=== PATIENT | female | born 1950 | race Caucasian/White ===

== ENCOUNTER → 2017-01-05 | Outpatient (CLI) | payer MEDICARE ==
[2017-01-05 14:48] LABS: Blood Urea Nitrogen 12 mg/dL (7-17); Non-African American GFR(MDRD) >60 (>60 ml/min/1.73 sqM)
--- NOTE | 2017-01-05 15:37 | CT ---
EXAMINATION TYPE: CT abdomen pelvis w con DATE OF EXAM: 01/05/2017 COMPARISON: March 09, 2012 HISTORY: Right sided flank pain for [address] DLP: 3214.5 mGycm CONTRAST: CT scan of the abdomen and pelvis is performed without Oral Contrast and with IV Contrast, patient in jected with 100 mL of Omnipaque 300. FINDINGS: LUNG BASES-: No visible nodule. No infiltrate. LIVER/GB: No space occupying hepatic lesion. Biliary tree is of normal caliber. There is evidence of hepatic steatosis. The gallbladder surgically absent. PANCREAS: No inflammation. No distinct mass. SPLEEN: No splenic enlargement. No lesion seen. ADRENALS: No nodule. No thickening. KIDNEYS/BLADDER: No hydronephrosis. No nephrolithiasis. 5.1 cm cyst left mid kidney. 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 Urinary bladder grossly unremarkable. BOWEL: Normal appendix. Normal bowel caliber. Sigmoid diverticulosis without diverticulitis. No infl ammation. GENITAL ORGANS: No gross abnormality. LYMPH NODES: No greater than 1cm abdominal or pelvic lymph nodes are appreciated. AORTA: No significant abnormality. OSSEOUS STRUCTURES: Degenerative and postoperative changes of the lumbar spine.. OTHER: No significant additional abnormality is seen. IMPRESSION: 1. No acute process to account for the patient's symptoms. 2. Hepatic steatosis. 3. Simple cyst left kidney.
== END | disposition home or self-care (01) ==
LOC: RADCTMAIN 13:54
PROVIDERS: ATTEND Family Medicine
DX: K76.0 Fatty (change of) liver, not elsewhere classified (principal); N28.1 Cyst of kidney, acquired; Z88.1 Allergy status to other antibiotic agents; Z88.2 Allergy status to sulfonamides
CPT/HCPCS: 82565; 84520; 74177; 36415; Q9967; 77063

== ENCOUNTER → 2017-01-05 | Outpatient (CLI) | payer MEDICARE ==
--- NOTE | 2017-01-09 10:09 | MM ---
Reason for exam: screening (asymptomatic). Last mammogram was performed 4 years and 4 months ago. History: Patient is postmenopausal. Benign right mammotome panel of the right breast, February 20, 2012. Excisional biopsy of the right breast, 2001. Benign excisional biopsy of the left breast, July 25, 2000. Took estrogen for 10 years. Physical Findings: A clinical breast exam by your physician is recommended on an annual basis and results should be correlated with mammographic findings. MG 3D Screening Mammo W/Cad Bilateral CC and MLO view(s) were taken. Prior study comparison: August 27, 2012, right diagnostic mammogram w/CAD. January 25, 2012, [facility] DIGITAL RIGHT MAMMOGRAM w/CAD. The breast tissue is heterogeneously dense. This may lower the sensitivity of mammography. Benign calcifications. There is chronic nodularity bilaterally. There is no dominant lesion. ASSESSMENT: Incomplete: need additional imaging evaluation, BI-RAD 0 RECOMMENDATION: Ultrasound of the left breast. (at palpable) Manage patient on a clinical basis. [facility] will attempt to contact patient to return for ultrasound.
== END | disposition home or self-care (01) ==
LOC: RADMAMWWP 13:18
PROVIDERS: ATTEND Family Medicine
DX: Z12.31 Encounter for screening mammogram for malignant neoplasm of breast (principal)
CPT/HCPCS: 77063; G0202

== ENCOUNTER → 2018-09-25 | Outpatient (CLI) | payer MEDICARE ==
--- NOTE | 2018-09-25 22:00 | BD ---
EXAMINATION TYPE: Axial Bone Density DATE OF EXAM: 09/25/2018 COMPARISON: NONE CLINICAL HISTORY: 68-year-old female asymptomatic postmenopausal screening Height: 5 FT 6 IN Weight: 264 FRAX RISK QUESTIONS: Family History (Parent hip fracture): YES History of Fracture in Adulthood: YES Secondary Osteoporosis: Rheumatoid Arthritis: YES RISK FACTORS HISTORY OF: Surgery to Spine/Hip(right/left)/Wrist (right/left): LUMBAR SURG X 3 When: 1987,LAST ONE DONE APPROX 20 YEARS AGO Family History of Osteoporosis: YES Postmenopausal woman: [facility] AGE 28 Take estrogen and/or progesterone medications: THINKS SHE MAY HAVE TAKEN FOR A SHORT TIME Lost more than 2 inches in height since high school: YES Poor Health: YES MEDICATIONS: Thyroid Medications: YES Which medication: SYNTHROID How Lon YEARS Additional Medications: SYNTHROID, XARELTO, BLOOD PRESSURE MEDS, EXFORGE, ATTENOLOL, SIMVASTATIN, CODIN, CITALOPRAM Additional History: EXAM MEASUREMENTS: Bone mineral density about the R hip (g/cm2): 0.781 Bone mineral density about the L hip (g/cm2): 0.845 T Score values are as follows: -----R Neck: -1.8 -----L Neck: -1.4 -----R Total: -0.9 -----L Total: -1.0 BASELINE Bone mineral density about the L Wrist (g/cm2): 0.550 T Score values are as follows: -----Dist. R+U: -1.9 -----Prox. R+U: -0.3 -----Radius total: -2.1 BASELINE IMPRESSION: Osteopenia (T Score between -2.5 and -1). There is slightly increased risk of fracture and the patient may be considered for treatment. Re-Screen 2-5 years. NOTE: T-SCORE=SD OF THE YOUNG ADULT MEAN.
--- NOTE | 2018-09-26 09:32 | MM ---
Reason for exam: additional evaluation requested from prior study. Last mammogram was performed 1 year and 9 months ago. History: Patient is postmenopausal. Benign right mammotome panel of the right breast, February 20, 2012. Excisional biopsy of the right breast, 2001. Benign excisional biopsy of the left breast, July 25, 2000. Took estrogen for 10 years. Physical Findings: Nurse Summary: 1cm nodule in the right breast at 5 o'clock (nurse kp). MG 3D Diag Mammo W/Cad [facility] Bilateral CC and MLO view(s) were taken. Prior study comparison: January 05, 2017, bilateral MG 3d screening mammo w/cad. There are scattered fibroglandular densities. 1.1cm spiculate mass lower inner quadrant right breast at a middle depth at the palpable site. Central nodualrity becomes less defined on true lateral. These results were verbally communicated with the patient and result sheet given to the patient on 09/25/18. ASSESSMENT: Incomplete: need additional imaging evaluation, BI-RAD 0 RECOMMENDATION: Ultrasound of the right breast.
--- NOTE | 2018-09-26 09:49 | USB ---
Reason for exam: additional evaluation requested from abnormal screening. History: Patient is postmenopausal. Benign right mammotome panel of the right breast, February 20, 2012. Excisional biopsy of the right breast, 2001. Benign excisional biopsy of the left breast, July 25, 2000. Took estrogen for 10 years. US Breast Limited RT Right complete breast ultrasound includes all four quadrants, the retroareolar region and axilla. Finding demonstrates a 0.9 x 0.9 x 0.8cm spiculated, solid lesion at 3 o'clock, very suspicious, biopsy recommended, a 1.2 x 0.5 x 0.9cm solid lesion with dystrophic calcifications at the posterior nipple, corresponds to density behind the nipple, a 0.9 x 0.4 x 0.9cm solid lesion at 7 o'clock for which a biopsy is recommended, a 0.6 x 0.3 x 0.5cm lesion too small to characterize at 8 o'clock, a 0.4 x 0.3 x 0.4cm mixed lesion too small to characterize at 9 o'clock and a 0.7 x 0.4 x 0.7cm oval lesion at 9 o'clock, likely a complicated cyst. These results were verbally communicated with the patient and result sheet given to the patient on 09/25/18. ASSESSMENT: Highly suggestive of malignancy, BI-RAD 5 RECOMMENDATION: Surgical consultation and ultrasound core biopsy of the right breast. (x 2 sites, 3 o'clock and 7 o'clock) Called Dr. Angel with mammographic findings and has scheduled an appointment for the patient for 10/10/18 at 3:[address] Haines. Biopsy scheduled for 10/21/18 at 2:00. PRELIMINARY REPORT CALLED AND FAXED TO DR. HAINES ON 09/25/18.
== END | disposition home or self-care (01) ==
LOC: RADMAMWWP 12:59
PROVIDERS: ATTEND Family Medicine
DX: R92.8 Other abnormal and inconclusive findings on diagnostic imaging of breast (principal); M85.851 Other specified disorders of bone density and structure, right thigh; M85.852 Other specified disorders of bone density and structure, left thigh; M85.822 Other specified disorders of bone density and structure, left upper arm; Z78.0 Asymptomatic menopausal state
CPT/HCPCS: 77080; 77066; 76642; G0279; 77062

== ENCOUNTER → 2018-10-10 | Outpatient (CLI) | payer MEDICARE ==
--- NOTE | 2018-10-10 16:47 | XR ---
EXAMINATION TYPE: XR lumbar spine 2 or 3V DATE OF EXAM: 10/10/2018 COMPARISON: None HISTORY: Disc disorder lumbosacral spine TECHNIQUE: Three-view lumbar spine FINDINGS: There is an exaggerated kyphosis L1-L2. There appears to be anterior fusion L1-2. Disc spac ers are present L2-3 L3-4. Posterior disc space narrowing is present L4-5. IMPRESSION: 1. Postsurgical changes L2-L4. 2. Exaggeration of the lumbar kyphosis at L1-L2
--- NOTE | 2018-10-10 16:49 | XR ---
EXAMINATION TYPE: XR hand complete LT DATE OF EXAM: 10/10/2018 COMPARISON: None HISTORY: Pain TECHNIQUE: Three-view left hand FINDINGS: No acute displaced fractures are evident. There is diffuse narrowing of proximal distal int erphalangeal joint spaces. Degenerative joint changes are at the first carpal metacarpal junction. So ft tissues appear unremarkable IMPRESSION: 1. No acute osseous abnormality. 2. Diffuse joint space narrowing
== END | disposition home or self-care (01) ==
LOC: RADXRMAIN 15:54
PROVIDERS: ATTEND Physician Assistant
DX: M40.299 Other kyphosis, site unspecified (principal); M25.842 Other specified joint disorders, left hand; Z98.890 Other specified postprocedural states
CPT/HCPCS: 72100

== ENCOUNTER → 2018-10-10 | Outpatient (CLI) | payer MEDICARE ==
[2018-10-10 15:05] VITALS: BP 134/78; PULSE 67; RESP 18; TEMP 98.7; BMI 42.6
--- NOTE | 2018-10-10 16:16 | P.GSHP ---
History of Present Illness H&P Date: 10/10/18 Chief Complaint: Mass right breast Gabrielle is a 68-year-old white female who states that approximately 2 months ago she noted a mass in the 3 o'clock position of the right breast. She states it is painful occasionally she has no nipple discharge or skin changes did not feel any other lumps or masses in her breast. She did not had a mammogram for several years. She subsequently underwent a mammogram which revealed 1.1 cm spiculated mass in the lower inner quadrant of the right breast. An ultrasound was recommended. On ultrasound she was noted to have a 0.9 x 0.8 cm spiculated lesion at 3:00, a 1.2 cm solid lesion posterior to the nipple, and a 0.9 x 0.9 cm solid lesion at 7:00 for which biopsy was recommended. The patient had several other lesions too small to characterize at 8:00, and 2 at 9:00. No lesions of concern were noted in the left breast. Family history: 1. Mother: Skin and breast cancer Hormonal history: Menarche: 9 1 miscarriage Menopause: Hysterectomy at 28 ovaries were not removed This control pills: Negative Hormones: 6 months Surgical history: 1. 3 back surgeries 2. 3 knee replacements 3. He'll with bone spurs on the right 4. Right elbow 5. Right thyroid lobe 6. To heart ablations 7. For hernias 8. Cholecystectomy Medical history: 1. Hypothyroid 2. Hypertension 3. High cholesterol 4. 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 - Gastrointestinal Gastrointestinal: Denies abdominal pain, Denies diarrhea, Denies nausea, Denies vomiting - Genitourinary (Female) Comment: History of kidney stones Genitourinary: Denies dysuria, Denies hematuria - Menstruation Menstruation: Reports post hysterectomy - Musculoskeletal Musculoskeletal: Reports muscle weakness - Integumentary Integumentary: Denies pruritus, Denies rash - Neurological Neurological: Reports weakness - Psychiatric Psychiatric: Reports depression - Endocrine Endocrine: Reports fatigue - Hematologic/Lymphatic Comment: on xeralto - Allergic/Immunologic Allergic/Immunologic: Reports seasonal allergies Past Medical History Past Medical History: GERD/Reflux, Hyperlipidemia, Osteoarthritis (OA), Thyroid Disorder Additional Past Medical History / Comment(s): SEE DR HARRIS'S H&P History of Any Multi-Drug Resistant Organisms: None Reported Past Surgical History: Back Surgery, Bladder Surgery, Cardiac Ablation, Cholecystectomy, Heart Catheterization, Hernia Repair, Hysterectomy, Joint Replacement, Orthopedic Surgery Additional Past Surgical History / Comment(s): rt knee replacement, Rt foot surgery, Rt elbow surgery,rt wrist ganglion cyst, partial thyroidectomy,back surgery x 3, ABLATION 05/2014 Past Anesthesia/Blood Transfusion Reactions: No Reported Reaction Past Psychological History: Depression Additional Psychological History / Comment(s): PAST HISTORY Smoking Status: Never smoker Past Alcohol Use History: None Reported Past Drug Use History: None Reported - Past Family History Mother Family Medical History: Deep Vein Thrombosis (DVT) Medications and Allergies Home Medications Medication Instructions Recorded Confirmed Type Atenolol 100 mg PO DAILY 02/19/14 10/10/18 History Hydrocodone/Acetaminophen [Vicodin 1 each PO Q4-6H PRN 02/19/14 10/10/18 History Hp 10-300 mg Tablet] Levothyroxine Sodium [Synthroid] 88 mcg PO DAILY 02/19/14 10/10/18 History Simvastatin [Zocor] 20 mg PO DAILY 02/19/14 10/10/18 History amLODIPine/VALSARTAN [Exforge 1 each PO DAILY 02/19/14 10/10/18 History 5-320 MG] Rivaroxaban [Xarelto] 20 mg PO AC-SUPPER tab 06/04/14 10/10/18 Rx Calcium Carbonate/Vitamin D3 1 each PO DAILY 10/07/18 10/10/18 History [Calcium 500-Vit D3 600 Tablet] Citalopram Hydrobromide 40 mg PO DAILY 10/07/18 10/10/18 History [Citalopram HBr] Allergies Allergy/AdvReac Type Severity Reaction Status Date / Time cephalexin monohydrate Allergy Rash/Hives Verified 10/10/18 15:05 [From Keflex] Iodinated Contrast- Oral and Allergy Rash/Hives Verified 10/10/18 15:05 IV Dye [Iodinated Contrast Media - IV Dye] Sulfa (Sulfonamide Allergy Rash/Hives Verified 10/10/18 15:05 Antibiotics) adhesive tape Allergy Rash/Hives Uncoded 10/10/18 15:05 Surgical - Exam Vital Signs Temp Pulse Resp BP Pulse Ox 98.7 F 67 18 134/78 91 L 10/10/18 15:01 10/10/18 15:01 10/10/18 15:01 10/10/18 15:01 10/10/18 15:01 BMI 42.6 - General obese - Eyes PERRL - ENT no hearing loss, no congestion - Neck no masses, trachea midline - Respiratory normal respiratory effort, clear to auscultation - Cardiovascular History of atrial fibrillation however on today's exam heart is regular rate and rhythm Rhythm: regular Heart Sounds: normal: S1, S2 - Abdomen Abdomen: soft, non tender, no guarding, no rigid, no rebound - Integumentary Multiple tattoos - Neurologic no disoriented, no combative - Musculoskeletal normal gait, normal posture - Psychiatric oriented to time, oriented to person, oriented to place, speech is normal, memory intact Breast examination: Right breast: Multiple positional exam nodule at 3:00 which is palpable and close to the skin Fibrocystic changes otherwise Right axilla: No adenopathy of concern Left breast: Multiple positional exam no dominant masses or nodules of concern Left axilla: No adenopathy of concern Results Mammogram and ultrasound results reviewed Assessment and Plan Assessment: Impression: 1. Mammographic abnormality right breast 2. Ultrasound abnormality right breast 3. Fibrocystic breast changes 4. Mass right breast 5. Family history of breast cancer 6. Osteoarthritis 7. Multiple back surgeries 8. Hypothyroidism 9. Hypertension 10. High cholesterol 11. Atrial fibrillation The patient was noted to have 2 areas on ultrasound for which biopsy is recommended 1 at 3:00 and one at 7:00. Patient has palpable mass at 3:00 which is highly suspicious for malignancy. Plan: 1. Patient to stop blood thinner as per medicine and proceed with ultrasound- guided core biopsy of 2 areas of concern in the right breast 2. Medical management of multiple medical conditions 3. Follow-up. After biopsy Cc: Dr. Curtis Angel
== END | disposition home or self-care (01) ==
LOC: WWCWWP 14:26
PROVIDERS: ATTEND Surgery
DX: Z53.9 Procedure and treatment not carried out, unspecified reason (principal)

== ENCOUNTER → 2018-10-21 | Day surgery (SDC) | payer MEDICARE ==
[2018-10-21 13:21] VITALS: RESP 16; BMI 42.6
--- NOTE | 2018-10-21 15:00 | USB ---
EXAMINATION TYPE: US biopsy breast VAD RT, US biopsy breast add'l VAD RT DATE OF EXAM: 10/21/2018 CLINICAL HISTORY: R92.8 ABNORMAL MAMMOGRAM. TECHNIQUE: Ultrasound guided core biopsy of right 3:00 and right 7:00 breast. COMPARISON: NONE FINDINGS: The procedure of ultrasound guided core biopsy was explained to the patient. Benefits, alternatives, and risks were discussed. An informed consent was then obtained. The patient was placed in supine positioning for imaging and for the procedure. The overlying skin was prepped and draped in usual sterile fashion. Lidocaine buffered with bicarbonate was used as anesthetic into the skin and subcutaneous tissue up to area of concern in the right 3:00 and right 7:00 breast. Under ultrasound guidance, a 12-gauge vacuum assisted biopsy gun device was used to obtain 3 cores from the right 3:00 position. A single core was obtained from the 7:00 position at which point the lesion was no longer visible. The patient tolerated the procedure well without any immediate complication. Microclip marker's were deployed in each site. The patient was kept in the radiology department for short stay after the procedure and then discharged home in stable condition. IMPRESSION: Successful, uncomplicated ultrasound guided core biopsy right 3:00 and right 7:00 breast, full pathology results to follow. Pathology Results: Malignant A. RIGHT BREAST, SITE A, ULTRASOUND GUIDED NEEDLE CORE BIOPSIES: Infiltrating ductal carcinoma, Grade 2 ([place]). See note. B. RIGHT BREAST, SITE B, ULTRASOUND GUIDED NEEDLE CORE BIOPSIES: Fibrocystic change. Recommendation Surgical consult of the right breast. 3:00 malignant, concordant, surgical consultation, ammendable to mammographic guided needle localization. 7:00 benign, concordant. POLLYD
[2018-10-21 15:03] VITALS: BP 134/75; PULSE 71; TEMP 98.8
--- NOTE | 2018-10-22 08:00 | MM ---
Reason for exam: additional evaluation requested from abnormal screening. Last mammogram was performed 1 month ago. History: Patient is postmenopausal. Benign right mammotome panel of the right breast, February 20, 2012. Excisional biopsy of the right breast, 2001. Benign excisional biopsy of the left breast, July 25, 2000. Took estrogen for 10 years. MG Diagnostic Mammo RT Wo CAD CC and ML view(s) were taken of the right breast. Prior study comparison: September 25, 2018, bilateral MG 3d diag mammo w/cad [facility]. January 05, 2017, bilateral MG 3d screening mammo w/cad. ASSESSMENT: Post procedure mammogram for marker placement RECOMMENDATION: Ultrasound of the right breast in 6 months. PENDING PATHOLOGY RESULTS.
== END | disposition home or self-care (01) ==
LOC: RADUSWWP 12:42
PROVIDERS: ATTEND Surgery
DX: C50.411 Malignant neoplasm of upper-outer quadrant of right female breast (principal); R92.8 Other abnormal and inconclusive findings on diagnostic imaging of breast; Z88.1 Allergy status to other antibiotic agents; Z88.2 Allergy status to sulfonamides; Z91.048 Other nonmedicinal substance allergy status
CPT/HCPCS: 19083; 19084; 88305; 77065; A4648; J2001; 88341; 88342

== ENCOUNTER → 2018-11-01 | Outpatient (CLI) | payer MEDICARE ==
[2018-11-01 13:58] VITALS: BP 125/72; PULSE 70; RESP 20; TEMP 98.7; BMI 42.6
--- NOTE | 2018-11-01 14:45 | P.PN ---
Subjective Progress Note Date: 11/01/18 Principal diagnosis: right breast cancer The patient is a 68-year-old white female status post ultrasound-guided core biopsy of 2 sites in her right breast and [id number]. The first site revealed infiltrating ductal carcinoma. The second site was fibrocystic change. The radiographs were reviewed with radiology. The first site was at 3:00 in the right breast and is very close to the skin. The results were reviewed with the patient. An treatment options including lumpectomy sentinel node biopsy possible axillary node dissection versus mastectomy plus or minus reconstruction were discussed. It is recommended that she undergo a lumpectomy with sentinel node biopsy. Following a cardiac ablation the patient was admitted to the intensive care unit on a ventilator she states this had difficulty with breathing since that time. 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 Family history: Mother: Skin and breast cancer Hormonal history: Menarche: 9 1 miscarriage Menopause: Hysterectomy at 28 Postoperative control pills: Negative Hormones: 6 months Surgical history: 1. 2 back surgeries 2. 23rd replacements 3. Heel surgery 4. Right elbow 5. Right dilated 6. Heart ablation 7. 4 hernia surgeries 8. Cholecystectomy Medical history: 1. Hypothyroid 2. Hypertension 3. Cholesterol 4. Atrial fibrillation Social history: Smoke: Negative Occult: Negative Drugs: Negative Review of systems: HEENT: Negative Cardiovascular: Atrial fibrillation on sotalol toe Respiratory: Left diaphragm. Otherwise GI: Negative : History of kidney stones Musculoskeletal: Muscle weakness Integument: Negative Psychiatric: Depression Endocrine: Fatigue Hematologic: Xeralto ALLERGIES: Positive seasonal ALLERGIES Objective - Vital Signs Vital signs: Vital Signs Temp 98.7 F 11/01/18 13:54 Pulse 70 11/01/18 13:54 Resp 20 11/01/18 13:54 BP 125/72 11/01/18 13:54 Pulse Ox 96 11/01/18 13:54 Intake & Output 10/31/18 11/01/18 11/01/18 18:59 06:59 18:59 Weight 119.748 kg - Exam BMI 42.6 - Constitutional General appearance: Present: obese - EENT Eyes: Present: EOMI ENT: Present: hearing grossly normal - Neck Neck: Present: normal ROM - Respiratory Respiratory: bilateral: CTA (Decreased breath sounds at bases) - Cardiovascular Heart sounds: normal: S1, S2 - Integumentary Integumentary: Present: normal turgor - Musculoskeletal Musculoskeletal Comment(s): He uses a wheelchair - Psychiatric Psychiatric: Present: A&O x's 3, appropriate affect, intact judgment & insight - Additional findings Additional findings: Right breast colon biopsy sites clean and dry, no evidence of any infection Assessment and Plan Assessment: Impression: 1. Hypothyroidism 2. Hypertension 3. Cholesterol 4. Atrial fibrillation 5. Infiltrating ductal carcinoma right breast at 3:00 6. Fibrocystic breast changes 7. Pulmonary disease/diaphragmatic paralysis 8. Atrial fibrillation 9. Family history of breast cancer Plan: 1. Patient's case to be presented at tumor board 2. Patient most likely will undergo lumpectomy sentinel node biopsy possible axillary node dissection 3. Medical clearance primary care doctor, radiology, pulmonology Cc: Dr. Curtis Angel
== END | disposition home or self-care (01) ==
LOC: WWCWWP 13:44
PROVIDERS: ATTEND Surgery
DX: Z53.9 Procedure and treatment not carried out, unspecified reason (principal)

== ENCOUNTER → 2018-11-14 | Day surgery (SDC) | payer MEDICARE ==
[2018-11-14 10:01] VITALS: BMI 41.9
--- NOTE | 2018-11-14 11:50 | USB ---
EXAMINATION TYPE: US biopsy breast VAD RT, MG diagnostic mammo RT wo CAD DATE OF EXAM: 11/14/2018 CLINICAL HISTORY: R92.8 Abnormal mammogram. TECHNIQUE: Ultrasound guided core biopsy of right breast. COMPARISON: Exam's dating back to 09/25/2018 FINDINGS: The procedure of ultrasound guided core biopsy was explained to the patient. Benefits, alternatives, and risks were discussed. An informed consent was then obtained. Preprocedural timeout was performed. The patient was placed in supine positioning for imaging and for the procedure. The overlying skin was prepped and draped in usual sterile fashion. Lidocaine buffered with bicarbonate was used as anesthetic into the skin and subcutaneous tissue up to an approximately 4 mm mass labeled at the 8:00 position on the initial exam and visualized towards the 8:30 to 9:00 position of the right breast on the day of biopsy. Under ultrasound guidance, a 12-gauge vacuum assisted biopsy gun device was used to obtain 5 core samples. Following this, a ribbon-shaped biopsy marker was left at the site of biopsy. Postprocedure mammogram demonstrates appropriate biopsy marker placement. The patient tolerated the procedure well without any immediate complication. The patient was kept in the radiology department for short stay after the procedure and then discharged home in stable condition. IMPRESSION: Successful, uncomplicated ultrasound guided core biopsy of an approximately 4 mm mass in the right breast, full pathology results to follow. Pathology Results: Benign RIGHT BREAST, EIGHT O'CLOCK, ULTRASOUND GUIDED CORE BIOPSY: Fibrocystic changes including fibrosis, cysts and adenosis. Negative for malignancy. Recommendation Surgical consult of the right breast. 8 o'clock, benign, concordant. Further appropriate management of biopsy proven right breast cancer at 3 o'clock. [facility]
[2018-11-14 16:13] VITALS: BP 132/78; PULSE 78; RESP 16; TEMP 98
== END ==
LOC: RADUSWWP 08:45
PROVIDERS: ATTEND Surgery
DX: N60.11 Diffuse cystic mastopathy of right breast (principal); N60.21 Fibroadenosis of right breast
CPT/HCPCS: 19083; 88305; 77065; A4648; J2001

== ENCOUNTER → 2018-11-14 | Outpatient (CLI) | payer MEDICARE ==
--- NOTE | 2018-11-14 12:22 | XR ---
EXAMINATION TYPE: XR chest 2V DATE OF EXAM: 11/14/2018 COMPARISON: X-ray dated 05/31/2014 HISTORY: Chronic systolic heart failure. TECHNIQUE: Frontal and lateral views of the chest are obtained. FINDINGS: Elevation of the right hemidiaphragm, similar to prior. No acute focal infiltrate. No pleu ral effusion or pneumothorax. Cardiac silhouette and pulmonary vasculature are within normal limits. Degenerative changes throughout the thoracic spine and partial visualization of lumbar spinal hardwar e. IMPRESSION: No acute cardiopulmonary process.
== END | disposition home or self-care (01) ==
LOC: RADXRWHC 09:15
PROVIDERS: ATTEND Family Medicine
DX: I50.22 Chronic systolic (congestive) heart failure (principal)
CPT/HCPCS: 71046

== ENCOUNTER → 2018-11-18 | Outpatient (CLI) | payer MEDICARE ==
[2018-11-18 08:56] VITALS: BP 126/74; PULSE 57; RESP 16; TEMP 98.8; BMI 41.9
--- NOTE | 2018-11-18 09:18 | P.PN ---
Subjective Progress Note Date: 11/18/18 The patient is a 68-year-old white female status post ultrasound-guided core biopsy of 2 sites in her right breast [place] [id number]. The first site revealed infiltrating ductal carcinoma. The second site was fibrocystic change. The radiographs were reviewed with radiology. The first site was at 3:00 in the right breast and is very close to the skin. The results were reviewed with the patient. An treatment options including lumpectomy sentinel node biopsy possible axillary node dissection versus mastectomy plus or minus reconstruction were discussed. It is recommended that she undergo a lumpectomy with sentinel node biopsy. Following a cardiac ablation the patient was admitted to the intensive care unit on a ventilator she states this had difficulty with breathing since that time. 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 The patient's case was presented at tumor board, and an additional area of concern in the right breast was recommended to undergo biopsy. This was performed. Pathology revealed fibrocystic changes. Patient was seen and cleared by pulmonary for surgery. She also had an EKG performed in the stress test has been ordered but not yet performed. The patient is scheduled for surgery in the near future for lumpectomy and sentinel node biopsy with respect to the known malignancy biopsied in the right breast. Family history: Mother: Skin and breast cancer Hormonal history: Menarche: 9 1 miscarriage Menopause: Hysterectomy at 28 Postoperative control pills: Negative Hormones: 6 months Surgical history: 1. 2 back surgeries 2. 23rd replacements 3. Heel surgery 4. Right elbow 5. Right dilated 6. Heart ablation 7. 4 hernia surgeries 8. Cholecystectomy Medical history: 1. Hypothyroid 2. Hypertension 3. Cholesterol 4. Atrial fibrillation Social history: Smoke: Negative Occult: Negative Drugs: Negative Review of systems: HEENT: Negative Cardiovascular: Atrial fibrillation on sotalol toe Respiratory: Left diaphragm. Otherwise GI: Negative : History of kidney stones Musculoskeletal: Muscle weakness Integument: Negative Psychiatric: Depression Endocrine: Fatigue Hematologic: Xeralto ALLERGIES: Positive seasonal ALLERGIES Objective - Vital Signs Vital signs: Vital Signs Temp 98.8 F 11/18/18 08:43 Pulse 57 L 11/18/18 08:43 Resp 16 11/18/18 08:43 BP 126/74 11/18/18 08:43 Pulse Ox - Exam BMI 41.9 - Constitutional General appearance: Present: obese - EENT Eyes: Present: EOMI ENT: Present: hearing grossly normal - Neck Neck: Present: normal ROM - Respiratory Respiratory: bilateral: CTA - Cardiovascular Rhythm: regular Heart sounds: normal: S1, S2 - Integumentary Integumentary Comment(s): And has ecchymosis at the biopsy site, she has a hematoma at the biopsy site which is approximately 1-1/2 cm in size The procedure abnormality which was biopsy-proven to be a malignancy remains constant and unchanged in the medial aspect of the breast. Integumentary: Present: normal turgor - Psychiatric Psychiatric: Present: A&O x's 3, appropriate affect, intact judgment & insight - Additional findings Additional findings: right breast: echymosis at the biopsy site, hematoma at the biopsy site no evidence of infection Assessment and Plan Plan: Impression: 1. Hypothyroidism 2. Hypertension 3. High cholesterol 4. Atrial fibrillation on so well to 5. Infiltrating ductal carcinoma right breast at 3:00 6. Fibrocystic breast changes 7. Pulmonary disease/diaphragmatic paralysis 8. Family history of breast cancer 9. Recent pain right breast biopsy benign Plan: 1. Lumpectomy with sentinel node biopsy possible axillary node dissection 2. Medical clearance primary care doctor, implant technology 3. Awaiting stress test results Cc: Dr. Curtis Angel
== END | disposition home or self-care (01) ==
LOC: WWCWWP 08:34
PROVIDERS: ATTEND Surgery
DX: Z53.9 Procedure and treatment not carried out, unspecified reason (principal)

== ENCOUNTER → 2018-12-05 | Outpatient (CLI) | payer MEDICARE ==
[~2018-12-05] MED LIST: REGADENOSON 0.4 MG/5 ML SYRINGE IV ONE
--- NOTE | 2018-12-05 11:01 | ECHOF ---
Referral Reason:I50.22 chronic systolic CHF MEASUREMENTS -------- HEIGHT: 167.6 cm WEIGHT: 122.5 kg BP: IVSd: 1.3 cm (0.6 - 1.1) LVIDd: 4.8 cm (3.9 - 5.3) LVPWd: 1.1 cm (0.6 - 1.1) IVSs: 1.2 cm LVIDs: 3.4 cm LVPWs: 1.4 cm LAESV Index (A-L): 31.06 ml/m Ao Diam: 3.5 cm (2.0 - 3.7) AV Cusp: 1.7 cm (1.5 - 2.6) LA Diam: 4.0 cm (2.7 - 3.8) MV EXCURSION: 21.518 mm (> 18.000) MV EF SLOPE: 96 mm/s (70 - 150) EPSS: 1.5 cm MV E Marques: 1.17 m/s MV DecT: 227 ms MV A Marques: 0.51 m/s MV E/A Ratio: 2.27 RAP: 5.00 mmHg RVSP: 42.21 mmHg FINDINGS -------- Sinus rhythm. This was a technically difficult study with suboptimal parasternal views. The left ventricular size is normal. There is mild concentric left ventricular hypertrophy. Overa ll left ventricular systolic function is low-normal with, an EF between 50 - 55 %. Mitral Doppler i nflow pattern suggests diastolic filling abnormality 35.82. The RV was not well visualized. LA is midly dilated 29-33ml/m2. The right atrium was not well visualized. Interatrial and interventricular septum intact. The aortic valve was not well visualized. There is no evidence of aortic regurgitation. There is no evidence of aortic stenosis. Mild mitral annular calcification present. Xmuw-es-msimswij mitral regurgitation is present. Moderate tricuspid regurgitation present. There is moderate pulmonary hypertension. The right radha tricular systolic pressure, as measured by Doppler, is 42.21mmHg. The pulmonic valve was not well visualized. The aortic root size is normal. The inferior vena cava is mildly dilated. There is no pericardial effusion. CONCLUSIONS -------- 1. Sinus rhythm. 2. This was a technically difficult study with suboptimal parasternal views. 3. The left ventricular size is normal. 4. There is mild concentric left ventricular hypertrophy. 5. Overall left ventricular systolic function is low-normal with, an EF between 50 - 55 %. 6. Mitral Doppler inflow pattern suggest diastolic filling abnormality 35.82. 7. The RV was not well visualized. 8. LA is midly dilated 29-33ml/m2. 9. The right atrium was not well visualized. 10. Interatrial and interventricular septum intact. 11. The aortic valve was not well visualized. 12. There is no evidence of aortic regurgitation. 13. There is no evidence of aortic stenosis. 14. Mild mitral annular calcification present. 15. Wavq-nc-vhmbbbrm mitral regurgitation is present. 16. Moderate tricuspid regurgitation present. 17. There is moderate pulmonary hypertension. 18. The right ventricular systolic pressure, as measured by Doppler, is 42.21mmHg. 19. The pulmonic valve was not well visualized. 20. The aortic root size is normal. 21. The inferior vena cava is mildly dilated. 22. There is no pericardial effusion. HANDSTITCHING MACHINE ARMHOLE FELLER: Penny Rothman RDCS
--- NOTE | 2018-12-05 12:57 | EST ---
EXERCISE STRESS DATE OF SERVICE: 12/05/2018 AGE: 68 SEX: Female HT: 5'6" WT: 280 pounds PROTOCOL: Lexiscan Cardiolite STAGE: DURATION OF EXERCISE: HEART RATE REST: 66 BLOOD PRESSURE REST: 152/74 MAXIMUM HEART RATE ACHIEVED: 74 MAXIMUM BLOOD PRESSURE: 152/74 85% MPHR: 100% MPHR: METS: INDICATIONS: Chest pain. CLINICAL INFORMATION: STRESS DATA: Heart rate 66, pressure is 152/74 mmHg. Baseline EKG showed sinus mechanism. The 0.4 mg of Lexiscan given over 15 seconds per protocol. Max heart rate was 74 beats per minute. Maximum pressure was 152/74 mmHg. Clinically the patient did not have any symptoms of chest pain or discomfort and the EKG did not show any significant ST or T-wave abnormalities concerning for ischemia. CONCLUSION: 1. Nondiagnostic electrocardiogram stress testing response to Lexiscan. 2. Please follow up on the Cardiolite portion on separate report from Radiology Department. MMODL / IJN: [id number] /
--- NOTE | 2018-12-05 13:14 | NM ---
EXAMINATION TYPE: NM stress lexiscan cardiolite DATE OF EXAM: 12/05/2018 COMPARISON: NONE HISTORY: Precordial chest pain and abnormal EKG TECHNIQUE: After the intravenous administration of 9.8 mCi Tc 99m Sestamibi - Cardiolite resting SPE CT images acquired 45 minutes post injection. The patient received 0.4mg Lexiscan, 26.2 mCi Tc 99m Sestamibi - Stress images obtained [address] injection FINDINGS: Review of stress and rest SPECT images demonstrates fixed defects involving the inferior wall as well as anterior wall. No definite evidence for stress-induced ischemia. Gated analysis shows normal wall motion with an estimated left ventricular ejection fraction of 54 %. IMPRESSION: No scintigraphic evidence for reversible ischemia.
== END | disposition home or self-care (01) ==
LOC: RADNMMAIN 07:32
PROVIDERS: ATTEND Family Medicine
DX: I08.1 Rheumatic disorders of both mitral and tricuspid valves (principal); I27.20 Pulmonary hypertension, unspecified; I87.8 Other specified disorders of veins; I50.22 Chronic systolic (congestive) heart failure
CPT/HCPCS: 93017; 93306; 78452; A9500; J2785

== ENCOUNTER → 2018-12-13 | Outpatient (CLI) | payer MEDICARE ==
[2018-12-13 11:32] VITALS: BP 106/66; PULSE 69; RESP 18; TEMP 98.2; BMI 43.5
--- NOTE | 2018-12-13 12:16 | P.PN ---
Subjective Progress Note Date: 12/13/18 The patient is a 68-year-old white female status post ultrasound-guided core biopsy of 2 sites in her right breast on . The first site revealed infiltrating ductal carcinoma. The second site was fibrocystic change. The radiographs were reviewed with radiology. The first site was at 3:00 in the r ight breast and is very close to the skin. The results were reviewed with the patient. Treatment options including lumpectomy, sentinel node biopsy, and possible axillary node dissection versus mastectomy plus or minus reconstruction were discussed. After discussion it is recommended that she undergo a lumpectomy with sentinel node biopsy. Of concern is the fact that following a cardiac ablation the patient was admitted to the intensive care unit on a ventilator; she states she has had difficulty with breathing since that time. 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 The patient's case was presented at tumor board, and an additional area of concern in the right breast was recommended to undergo biopsy. This was performed. Pathology revealed fibrocystic changes. Patient was seen and cleared by pulmonary for surgery. She also had an EKG performed and a stress test and s been cleared for surgery as per the patient. Family history: Mother: Skin and breast cancer Hormonal history: Menarche: 9 1 miscarriage Menopause: Hysterectomy at 28 Postoperative control pills: Negative Hormones: 6 months Surgical history: 1. 3 back surgeries 2. 3 knee replacements 3. Heel surgery 4. Right elbow 5. Right thyroid resection 6. Heart ablation 7. 4 hernia surgeries 8. Cholecystectomy Medical history: 1. Hypothyroid 2. Hypertension 3. high cholesterol 4. Atrial fibrillation Social history: Smoke: Negative Occult: Negative Drugs: Negative Review of systems: HEENT: Negative Cardiovascular: Atrial fibrillation on Xeralto Respiratory: Left diaphragm paralysed GI: Negative : History of kidney stones Musculoskeletal: Muscle weakness Integument: Negative Psychiatric: Depression Endocrine: Fatigue Hematologic: Xeralto ALLERGIES: Positive seasonal ALLERGIES Objective - Vital Signs Vital signs: Vital Signs Temp 98.2 F 12/13/18 11:28 Pulse 69 12/13/18 11:28 Resp 18 12/13/18 11:28 BP 106/66 12/13/18 11:28 Pulse Ox 92 L 12/13/18 11:28 - Exam BMI 43.5 - Constitutional General appearance: Present: obese - EENT Eyes: Present: EOMI ENT: Present: hearing grossly normal - Respiratory Respiratory: bilateral: CTA - Cardiovascular Rhythm: regular Heart sounds: normal: S1, S2 - Gastrointestinal General gastrointestinal: Present: soft - Integumentary Integumentary: Present: normal turgor - Musculoskeletal Musculoskeletal Comment(s): uses wheel chair secondary to SOB - Psychiatric Psychiatric: Present: A&O x's 3, appropriate affect, intact judgment & insight - Additional findings Additional findings: breast exam: right breast: Patient has resolving hematoma in the lateral aspect of the right breast, the right breast cancer remains probable at near the 3 o'clock position multiple positional exam did not reveal other masses or nodules in the breast Right axilla: No adenopathy of concern Left breast: Multi-positional exam no dominant masses or nodules of concern Left axilla: No adenopathy of concern Assessment and Plan Assessment: Impression: 1. Radiographic abnormality right breast 2. Fibrocystic breast changes 3. Mass right breast biopsy confirmed cancer 4. Hematoma lateral aspect of right breast benign tissue on biopsy 5. Family history of breast cancer 6. Osteoarthritis 7. Multiple back surgeries 8. Hypothyroidism 9. Hypertension 10. High cholesterol 11. Atrial fibrillation on Plan: 1. Patient to stop sotalol toe 24 hours preoperative 2. Medical management of medical conditions with clearance from pulmonary and medicine 3. Results of stress test to be obtained 4.right breast sential node biopsy, needle localization lumpectomy Risks and benefits of surgery were discussed with the patient she wishes to proceed. CC: Dr. Curtis Angel
== END ==
LOC: WWCWWP 10:50
PROVIDERS: ATTEND Surgery
DX: Z53.9 Procedure and treatment not carried out, unspecified reason (principal)

== ENCOUNTER 2018-12-24 07:35 | Day surgery (SDC) | payer MEDICARE ==
[2018-12-23 09:54] VITALS: BMI 43.5
[~2018-12-24 07:35] MED LIST changes: +ALPRAZolam 0.25 MG TAB PO PRN; +DEXAMETHASONE SOD PHOSPHATE 10 MG/ML 1 ML VIAL IV ONE; +HEPARIN SODIUM,PORCINE 5,000 UNIT/ML 1 ML VIAL SQ ONE; +HYDROmorphone 0.5 MG/0.5 ML SYRINGE IVP PRN; +LACTATED RINGERS 1,000 ML IV SCH; +LIDOCAINE 1% 20 ML VIAL (10MG/ML) FOR IV START INTRADERMA PRN; +MIDAZOLAM 2 MG/2 ML VIAL IV PRN; +ONDANSETRON 4 MG/2 ML VIAL IVP ONE; +Pre Op ABX Message 1 EACH MISC MISCELLANE ONE; -REGADENOSON 0.4 MG/5 ML SYRINGE IV ONE; +SCOPOLAMINE 1.5MG/72HR PATCH TRANSDERM ONE
[2018-12-24] MEDS ORDERED: ALPRAZolam 0.5 MG TAB PO ONE (08:11)
[2018-12-24] MEDS ORDERED: LIDOCAINE 1% INJ 10MG/ML (20 ML MDV) SQ ONE ×3 (08:47→11:46)
[2018-12-24] MEDS ORDERED: HEPARIN SODIUM,PORCINE 5,000 UNIT/ML 1 ML VIAL SQ ONE (10:38)
--- NOTE | 2018-12-24 10:40 | P.NAPBC ---
NAPBC Queries - NAPBC Queries Was patient's case review presented at [facility] tumor board? If no, comment.: Yes Was patient's pathology reviewed at [facility]? If no, comment.: Yes Was breast conservation surgery offered? If no, comment.: Yes Was sentinel node biopsy offered? If no, comment.: Yes Was diagnosis confirmed by percutaneous core biopsy? If no, comment.: Yes Is patient mastectomy patient?: No Was a preop referral to reconstructive surgeon offered?: No Clinical Stage: STAGE IA
[2018-12-24] MEDS ORDERED: HYDROmorphone (PF) 1 MG/ML ONE (11:03)
[2018-12-24] MEDS ORDERED: MIDAZOLAM 2 MG/2 ML VIAL ONE (11:03)
[2018-12-24] MEDS ORDERED: PROPOFOL 10 MG/ML 20 ML VIAL IV ONE (11:03)
[2018-12-24] MEDS ORDERED: LIDOCAINE 1% INJ 10MG/ML (20 ML MDV) ONE (11:03)
[2018-12-24] MEDS ORDERED: fentaNYL (PF) 50 MCG/ML 2 ML AMP ONE (11:03)
[2018-12-24] MEDS ORDERED: SUCCINYLCHOLINE CHLORIDE 100 MG/5 ML SYR IV ONE (11:03)
[2018-12-24] MEDS ORDERED: ePHEDrine SULFATE/0.9% NACL/PF 50 MG/5 ML SYRINGE IV ONE (11:03)
[2018-12-24] MEDS ORDERED: DEXAMETHASONE SOD PHOS (MDV) 100 MG/10 ML VIAL ONE (11:03)
[2018-12-24] MEDS ORDERED: LACTATED RINGERS 1,000 ML IV ONE (12:01)
--- NOTE | 2018-12-24 12:37 | NM ---
EXAMINATION TYPE: NM sentinel node injection DATE OF EXAM: 12/24/2018 COMPARISON: Right breast biopsy dated 11/14/2018 HISTORY: Right breast cancer with request for sentinel node injection TECHNIQUE AND FINDINGS: The procedure of sentinel lymph node injection was explained to the patient. The benefits, alternatives, and risks were discussed. An informed consent was then obtained. Overlying skin is cleaned with sterile alcohol. Following this, 533 uCi Tc99m Tilmanocept was inject ed in the upper outer aspect of the right nipple intradermally. The patient tolerated the procedure well without any immediate complication. The patient was kept in the radiology department for short stay after the procedure and then taken to surgery for surgical p rocedure what is presumed intraoperative gamma probe will be used for sentinel lymph node detection. IMPRESSION: Right breast radiotracer injection for sentinel node localization as above.
--- NOTE | 2018-12-24 12:54 | MM ---
EXAMINATION TYPE: MG pre op needle loc RT, MG surgical specimen RT DATE OF EXAM: 12/24/2018 COMPARISON: Right breast biopsy dated 11/14/2018 CLINICAL HISTORY: Right breast biopsy with request for radiographic guided needle localization. TECHNIQUE: Needle localization with wire placement and surgical excision of area of concern in the right breast. FINDINGS: The procedure of needle localization with wire placement and than surgical excision was explained to the patient. Benefits, alternatives, and risks were discussed. An informed consent was then obtained. Preprocedural timeout was performed. The shortest pathway for procedure was chosen. Shortest pathway was medial to lateral approach. The overlying skin was prepped and draped in usual sterile fashion. 10 cc of 1% lidocaine was used as anesthetic into the skin and subcutaneous tissue up to the level of area of concern. A 5 cm needle was used. It was placed via a 5 approach under mammographic guidance. Subsequent 90 degrees mammogram show the needle to be in satisfactory position relative to the targeted area. At this point, wire was placed and the needle was withdrawn. The wire was fixed to patient's skin. Images were marked for surgeon. The patient tolerated the procedure well without any immediate complication. The patient was kept in the radiology department for short stay after the procedure and then taken to surgery for surgical excision. Targeted biopsy marker and mammographic mass and wire are identified in specimen mammogram. The OR was notified at approximately 12:40 PM by the x-ray heating repair technician. The patient was kept in hospital for short stay after the procedure and then discharged home in stable condition. IMPRESSION: Successful, uncomplicated needle localization with wire placement and surgical excision of the targeted biopsy marker and mammographic mass demarcating the biopsy-proven right breast infiltrating ductal carcinoma, grade 2, full pathology results to follow. Pathology Results: Malignant A. SENTINEL LYMPH NODE, BIOPSY: Lymph node negative for metastasis. CK7 and JJ immunoperoxidase stains are confirmatory (controls appropriate). B. AXILLARY CONTENTS: Lymph node with partial fat replacement, negative for metastasis. C. RIGHT BREAST, ADDITIONAL ANTERIOR MARGIN: Unremarkable benign skin and subcutaneous tissue. D. RIGHT BREAST, LUMPECTOMY: Invasive ductal carcinoma and ductal carcinoma in situ (DCIS), margins negative for malignancy. See Surgical Pathology Cancer Case Summary. Recommendation Follow up mammogram of the right breast in 6 months. [facility]
--- NOTE | 2018-12-24 13:07 | P.OP ---
Date of Procedure: 12/24/18 Preoperative Diagnosis: right Breast cancer Postoperative Diagnosis: Same Procedure(s) Performed: [place] node biopsy, right breast lumpectomy with onco-plastic tissue transfer Anesthesia: ENRIQUE Surgeon: Nicolette Haines Estimated Blood Loss (ml): 10 IV fluids (ml): 1,000 Pathology: other (sentinal node, lumpectomy specimen) Condition: stable Disposition: same day Indications for Procedure: biopsy proven right breast cancer Operative Findings: tumor extended close to skin Description of Procedure: The patient is a 68-year-old white female with a biopsy-proven right breast lower inner quadrant cancer. The tumor is in close proximity to the skin. The patient was taken to the operating room and following duction of anesthesia the right breast and axilla were prepped and draped in a sterile fashion. Periareolar injection of lymphatic time had been performed preoperatively. Additional localization of the tumor was performed preoperatively. The axilla was approached initially. Using the neoprobe the area of greatest radioactivity was identified. An incision was made at this site and carried into the axillary contents. Using the lighted retractor for visualization as well as the Harmonic scalpel the tissues were divided. An intercostal vein was necessary to be divided and this was ligated. Dissection into the axillary contents revealed a radioactive lymph node. This was excised. Ex vivo 10 second count on the neoprobe was approximately 20,000. The background axilla count on the neoprobe was 34. The axilla was well irrigated. No evidence of bleeding was identified. The deep tissues were closed using 3-0 Vicryl suture. This was followed by closure of the skin with 4-0 Monocryl. Patient tolerated this in stable condition. The breast was then approached. Secondary to the proximity to the skin an elliptical incision excising skin was performed. This was carried down to the chest wall. The deep dissection was to the pectoralis major muscle. The t issue was excised. It was painted for orientation. It was sent to radiology for radiographic confirmation the area of concern had been removed. This was confirmed. Additional skin was taken both superiorly and inferiorly as the lesion appeared to be close to the skin surface. Titanium clips were placed to irma the cavity. The breast tissue was mobolized onco plastically in the plane between the breast and skin and in the plane between the chest wall and the breast tissue. The tissue was then shifted into the defect. The amount of tissue mobilized was approximately 8 cm x 21/2 centimeters inferiorly and 8 centimeters by 2-1/2 cm superiorly. Approximately 40 centimeters of tissue mobilized. The tissues were then reapproximated using 3-0 Vicryl suture. The superficial tissues were closed using 3-0 Vicryl suture followed by closure of the skin with 4-0 Monocryl. Steri-Strips were applied. The patient tolerated the procedure in stable condition. All instrument and sponge counts were correct at the end of the case.
--- NOTE | 2018-12-24 13:09 | P.DS ---
Providers Attending physician: Nicolette Haines Primary care physician: Curtis Angel Plan - Discharge Summary Discharge Rx Participant: No New Discharge Prescriptions: No Action amLODIPine/VALSARTAN [Exforge 5-320 MG] 1 each PO QAM Simvastatin [Zocor] 20 mg PO QAM Levothyroxine Sodium [Synthroid] 88 mcg PO DAILY Atenolol 100 mg PO QAM Rivaroxaban [Xarelto] 20 mg PO AC-SUPPER tab Citalopram Hydrobromide [Citalopram HBr] 40 mg PO QAM Calcium Carbonate/Vitamin D3 [Calcium 500-Vit D3 600 Tablet] 1 each PO DAILY HYDROcodone/APAP 10-325MG [[place] 10-325] 1 tab PO Q4HR PRN PRN Reason: Pain Discharge Medication List Atenolol 100 mg PO QAM 02/19/14 [History] Levothyroxine Sodium [Synthroid] 88 mcg PO DAILY 02/19/14 [History] Simvastatin [Zocor] 20 mg PO QAM 02/19/14 [History] amLODIPine/VALSARTAN [Exforge 5-320 MG] 1 each PO QAM 02/19/14 [History] Rivaroxaban [Xarelto] 20 mg PO AC-SUPPER tab 06/04/14 [Rx] Calcium Carbonate/Vitamin D3 [Calcium 500-Vit D3 600 Tablet] 1 each PO DAILY 10/07/18 [History] Citalopram Hydrobromide [Citalopram HBr] 40 mg PO QAM 10/07/18 [History] HYDROcodone/APAP 10-325MG [[place] 10-325] 1 tab PO Q4HR PRN 12/23/18 [History] Follow up Appointment(s)/Referral(s): Nicolette Haines MD [STAFF PHYSICIAN] - 1 Week Activity/Diet/Wound Care/Special Instructions: Do not drive until seen by Dr. Angel Bra at all times may restart Xeralto tomorrow Discharge Disposition: HOME SELF-CARE
[2018-12-24 13:32] VITALS: TEMP 97.6
[2018-12-24 14:21] VITALS: RESP 20
[2018-12-24] MEDS ORDERED: HYDROcodone/APAP 10-325MG 1 EACH TAB PO ONE (14:31)
[2018-12-24 14:54] VITALS: BP 115/74; PULSE 90
== END 2018-12-24 15:10 | disposition home or self-care (01) ==
LOC: OR 07:35
PROVIDERS: ATTEND Surgery
DX: C50.311 Malignant neoplasm of lower-inner quadrant of right female breast (principal); I10 Essential (primary) hypertension; I48.91 Unspecified atrial fibrillation; E89.0 Postprocedural hypothyroidism; E78.00 Pure hypercholesterolemia, unspecified; F32.9 Major depressive disorder, single episode, unspecified; J30.2 Other seasonal allergic rhinitis; J98.6 Disorders of diaphragm; M19.90 Unspecified osteoarthritis, unspecified site; E78.5 Hyperlipidemia, unspecified; K21.9 Gastro-esophageal reflux disease without esophagitis; E66.9 Obesity, unspecified; Z87.442 Personal history of urinary calculi; Z79.01 Long term (current) use of anticoagulants; Z90.710 Acquired absence of both cervix and uterus; Z90.49 Acquired absence of other specified parts of digestive tract; Z79.890 Hormone replacement therapy; Z79.899 Other long term (current) drug therapy; Z98.890 Other specified postprocedural states; Z80.3 Family history of malignant neoplasm of breast; Z80.8 Family history of malignant neoplasm of other organs or systems; Z88.2 Allergy status to sulfonamides; Z91.041 Radiographic dye allergy status; Z91.048 Other nonmedicinal substance allergy status; Z88.1 Allergy status to other antibiotic agents; Z68.41 Body mass index [BMI] 40.0-44.9, adult
CPT/HCPCS: 88342; 88307; 88341; 76098; 19281; 38792; 38525; 19301; A9520; J2250; J1644; J1100 ×2; J2405; J2001; J3010; J1170; J0330; J2704

== ENCOUNTER 2018-12-25 17:06 | Emergency (ER) | payer MEDICARE ==
[2018-12-25 17:24] VITALS: BP 135/71; PULSE 76; RESP 16; TEMP 98.7
[2018-12-25] MEDS ORDERED: MORPHINE SULFATE 4 MG/ML SYRINGE IM STA (17:52)
--- NOTE | 2018-12-25 18:46 | US ---
EXAMINATION TYPE: US venous doppler duplex LE DATE OF EXAM: 12/25/2018 6:36 PM COMPARISON: NONE CLINICAL HISTORY: pain, post-op. Pain bilateral legs. Post-Op. Hx DVT in right leg. Patient is on blo od thinners. SIDE PERFORMED: Bilateral TECHNIQUE: The lower extremity deep venous system is examined utilizing real time linear array sonog vik with graded compression, doppler sonography and color-flow sonography. VESSELS IMAGED: External Iliac Vein (EIV) Common Femoral Vein Deep Femoral Vein Greater Saphenous Vein * Femoral Vein Popliteal Vein Small Saphenous Vein * Proximal Calf Veins (* superficial vessels) Limited due to body habitus and edema. Bilateral EIV not visualized. Limited prox calf vein visibil ity. Limited evaluation distal femoral vein. Right Leg: No evidence of DVT in veins imaged from distal popliteal vein to CFV/GSV. Left Leg: No evidence of DVT in veins imaged from distal popliteal vein to CFV/GSV. IMPRESSION: Limited exam due to patient body habitus with nonvisualization of the bilateral external iliac veins and limited visibility of the proximal calf veins as well as of the distal femoral veins . Within the visualized portions of the lower extremities no evidence of acute deep venous thrombosis is seen.
--- NOTE | 2018-12-25 19:35 | ED ---
Extremity Problem HPI - General Source: patient Mode of arrival: wheelchair Limitations: no limitations <Juana Hdez - Last Filed: 12/25/18 20:15> <Williams Wattah Quincy - Last Filed: 12/28/18 14:40> - General Chief complaint: Extremity Problem,Nontraumatic Stated complaint: calf & breast pain post op Time Seen by Provider: 12/25/18 17:31 - History of Present Illness Initial comments: Patient is a 68-year-old female presenting to the emergency Department with complaints of lower leg discomfort 1 day. Patient had a right breast lumpectomy with node biopsy performed yesterday by Dr. La Haines. Patient states she is presenting with bilateral lower leg discomfort as well as right breast pain. Patient states she is currently taking Hosmer 10's for her pain however it is not helping at this time. Patient is currently on Xarelto which she restarted today following her surgery. Patient denies fever, chills, nausea, vomiting. Patient does report mild throat irritation following her surgery. Patient has no other complaints right now. Upon arrival to ER, vital signs are stable. (Juana Hdez) - Related Data Home Medications Medication Instructions Recorded Confirmed Atenolol 100 mg PO DAILY 02/19/14 12/25/18 Levothyroxine Sodium [Synthroid] 88 mcg PO DAILY 02/19/14 12/25/18 Simvastatin [Zocor] 20 mg PO DAILY 02/19/14 12/25/18 amLODIPine/VALSARTAN [[place] 1 tab PO DAILY 02/19/14 12/25/18 5-320 MG] Citalopram Hydrobromide 40 mg PO DAILY 10/07/18 12/25/18 [Citalopram HBr] HYDROcodone/APAP 10-325MG [[place] 1 tab PO Q4-6H PRN 12/23/18 12/25/18 10-325] Rivaroxaban [Xarelto] 20 mg PO HS 12/25/18 12/25/18 Previous Rx's Medication Instructions Recorded Morphine Sulfate ER [Ms Contin] 15 mg PO Q8H 3 Days #5 tab 12/25/18 Allergies Allergy/AdvReac Type Severity Reaction Status Date / Time cephalexin monohydrate Allergy Rash/Hives Verified 12/25/18 17:53 [From Keflex] Iodinated Contrast Media Allergy Rash/Hives Verified 12/25/18 17:53 [Iodinated Contrast Media - IV Dye] Sulfa (Sulfonamide Allergy Rash/Hives Verified 12/25/18 17:53 Antibiotics) adhesive tape Allergy Rash/Hives Uncoded 12/25/18 17:25 Review of Systems ROS Other: All systems not noted in ROS Statement are negative. <Juana Hdez - Last Filed: 12/25/18 20:15> ROS Other: All systems not noted in ROS Statement are negative. <Rowena Watt - Last Filed: 12/28/18 14:40> ROS Statement: Those systems with pertinent positive or pertinent negative responses have been documented in the HPI. Past Medical History Past Medical History: GERD/Reflux, Hyperlipidemia, Osteoarthritis (OA), Thyroid Disorder Additional Past Medical History / Comment(s): SEE DR HARRIS'S H&P, complications from heart ablation History of Any Multi-Drug Resistant Organisms: None Reported Past Surgical History: Breast Surgery Additional Past Surgical History / Comment(s): rt knee replacement, Rt foot surgery, Rt elbow surgery,rt wrist ganglion cyst, partial thyroidectomy,back surgery x 3, ABLATION 05/2014, (R) breast lumpectomy. Past Anesthesia/Blood Transfusion Reactions: No Reported Reaction Additional Past Anesthesia/Blood Transfusion Reaction / Comment(s): pt unsure of exact reactiont, on ventilator for 2 days after cardiac ablation Past Psychological History: Depression Smoking Status: Never smoker Past Alcohol Use History: None Reported Past Drug Use History: None Reported - Past Family History Mother Family Medical History: Cancer, Deep Vein Thrombosis (DVT) <Juana Hdez - Last Filed: 12/25/18 20:15> General Exam Limitations: no limitations <Juana Hdez - Last Filed: 12/25/18 20:15> - General Exam Comments Initial Comments: GENERAL: Well-appearing, well-nourished and in no acute distress. HEAD: Atraumatic, normocephalic. EYES: Pupils equal round and reactive to light, extraocular movements intact, sclera anicteric, conjunctiva are normal. ENT: TMs normal, nares patent, oropharynx clear without exudates. Moist mucous membranes. NECK: Normal range of motion, supple without lymphadenopathy or JVD. LUNGS: Breath sounds clear to auscultation bilaterally and equal. No wheezes rales or rhonchi. CHEST: Surgical incisions on the right breast and right axillary area are free from signs of infection, no fluctuance, surrounding erythema, abnormal discharge. HEART: Regular rate and rhythm without murmurs, rubs or gallops. ABDOMEN: Soft, nontender, normoactive bowel sounds. No guarding, no rebound. No masses appreciated. : Deferred EXTREMITIES: Normal range of motion, no pitting or edema. No clubbing or cyanosis. Mild pain to palpation of the bilateral calfs. No erythema of the bilateral calfs. NEUROLOGICAL: Cranial nerves II through XII grossly intact. Normal speech, normal gait. PSYCH: Normal mood, normal affect. SKIN: Warm, Dry, normal turgor, no rashes or lesions noted. (Juana Hdez) Course Vital Signs 12/25/18 17:21 Temperature 98.7 F Pulse Rate 76 Respiratory 16 Rate Blood Pressure 135/71 O2 Sat by Pulse 97 Oximetry Medical Decision Making <Juana Hdez - Last Filed: 12/25/18 20:15> <Rowena Watt - Last Filed: 12/28/18 14:40> - Medical Decision Making Patient is a 68-year-old female presenting with bilateral lower leg pain as well as right breast pain. Patient is postop day 1 from right breast lumpectomy with lymph node biopsy by Dr. Nicolette Haines. Patient's incisions remain intact, free from signs of infection. Patient has mild bilateral calf tenderness. No erythema of the overlying skin. Ultrasounds of bilateral lower extremities revealed no signs of DVTs. Patient was given morphine for pain relief. Patient does report improvement in symptoms. Spoke with Dr. Nicolette Zamora who recommended patient may follow up with her in the morning in her office and to also prescribe her 5 tablets of oral morphine for pain control. Patient was counseled not to take the morphine tablets with her Hosmer tablets. Patient understood this. Patient is stable for discharge at this time. Return parameters were discussed with the patient and she verbalized understanding. Case discussed with Dr. Watt. (Juana Hdez) I was available for consultation in the emergency department. The history and physical exam were done by the midlevel provider. I was consulted for this patients care. I reviewed the case with the midlevel provider and based on their presentation of the patient, I agree with the assessment, medical decision rupert ng and plan of care as documented. (Rowena Watt) Disposition Is patient prescribed a controlled substance at d/c from ED?: Yes When asked, does pt state using other controlled substances?: Yes If prescribed controlled substance>3 days was MAPS reviewed?: Yes If opioid is for acute pain is fill amount 7 days or less?: Yes If Rx opioid, was Start Talking consent form obtained?: Yes <Juana Hdez - Last Filed: 12/25/18 20:15> <Rowena Watt - Last Filed: 12/28/18 14:40> Clinical Impression: Postoperative pain, Breast pain, right, Bilateral lower extremity pain Disposition: HOME SELF-CARE Condition: Stable Instructions (If sedation given, give patient instructions): Leg Pain (ED) Additional Instructions: Please return to the Emergency Department if symptoms worsen or any other concerns. Follow-up with Dr. Stanley Zamora as discussed. Prescriptions: Morphine Sulfate ER [Ms Contin] 15 mg PO Q8H 3 Days #5 tab Referrals: Curtis Angel MD [Primary Care Provider] - 1-2 days
== END 2018-12-25 19:50 | disposition home or self-care (01) ==
LOC: EC 17:06
DX: G89.18 Other acute postprocedural pain (principal); N64.4 Mastodynia; M79.661 Pain in right lower leg; M79.662 Pain in left lower leg; E78.5 Hyperlipidemia, unspecified; M19.90 Unspecified osteoarthritis, unspecified site; E07.9 Disorder of thyroid, unspecified; F32.9 Major depressive disorder, single episode, unspecified; Z88.1 Allergy status to other antibiotic agents; Z88.2 Allergy status to sulfonamides; Z91.041 Radiographic dye allergy status; Z91.048 Other nonmedicinal substance allergy status; Z79.01 Long term (current) use of anticoagulants; Z79.890 Hormone replacement therapy; Z79.899 Other long term (current) drug therapy; Z96.651 Presence of right artificial knee joint
CPT/HCPCS: 93970; 99283; 96372; J2270

== ENCOUNTER → 2019-01-03 | Outpatient (CLI) | payer MEDICARE ==
[2019-01-03 15:01] VITALS: BP 142/65; PULSE 87; RESP 18; TEMP 98.6; BMI 42.7
--- NOTE | 2019-01-03 15:03 | P.PN ---
Progress Note - Text Progress Note Date: 01/03/19 Gabrielle is a 68-year-old white female status post right breast lumpectomy and sentinel node biopsy for a [id number] G2 ER+/WA+ HER 2 - breast cancer performed on 12-24-18. The patient is doing well at this time. Margins are all negative and her lymph nodes are negative as well. The patient has some small hematomas near the area of the incisions but no evidence of ecchymosis or infection. She is doing well with pain control. Lungs: Clear Heart: Regular rate and rhythm Incision: Clean and dry and breast and axilla Impression: 1. Patient status post right breast lumpectomy and sentinel node biopsy doing well Plan: 1. Follow-up medical oncology 2. Follow up radiation oncology 3. Follow-up. In 3 months CC: Dr. Curtis Angel
== END ==
LOC: WWCWWP 14:40
PROVIDERS: ATTEND Surgery
DX: Z53.9 Procedure and treatment not carried out, unspecified reason (principal)

== ENCOUNTER 2019-04-07 09:31 | Observation (INO) | payer MEDICARE ==
--- NOTE | 2019-04-07 10:30 | ED ---
Skin/Abscess/FB HPI <GregorioErickson medina - Last Filed: 04/07/19 12:07> - General Source: patient, family Mode of arrival: wheelchair <Valeriy Grant - Last Filed: 04/07/19 12:18> - General Chief complaint: Skin/Abscess/Foreign Body Stated complaint: post op-incision bleeding Time Seen by Provider: 04/07/19 10:04 - History of Present Illness Initial comments: Patient is a 68-year-old female presenting to the emergency department with a chief complaint of possible breast infection. She states that in September she had a breast procedure performed on the right breast. Afterwards she would have occasional pain, when she consulted the surgeon she was informed that is only scar tissue and the pain is normal. Patient reports over the last 3 weeks she has developed increased tenderness in the region. She also reports increased induration near the incision site on the right breast. Patient reports today as she was about to take shower, she noticed large amounts of brown/dark yellow discharge near the site of tenderness. She brought a sample discharge. Denies any night sweats or chills. Does have history of breast cancer. (Valeriy Grant) - Related Data Home Medications Medication Instructions Recorded Confirmed Atenolol 100 mg PO QAM 02/19/14 01/03/19 Levothyroxine Sodium [Synthroid] 88 mcg PO QAM 02/19/14 01/03/19 Simvastatin [Zocor] 20 mg PO QAM 02/19/14 01/03/19 amLODIPine/VALSARTAN [Exforge 1 tab PO QAM 02/19/14 01/03/19 5-320 MG] Citalopram Hydrobromide 40 mg PO QAM 10/07/18 01/03/19 [Citalopram HBr] HYDROcodone/APAP 10-325MG [[place] 1 tab PO Q4-6H PRN 12/23/18 01/03/19 10-325] Rivaroxaban [Xarelto] 20 mg PO HS 12/25/18 01/03/19 Allergies Allergy/AdvReac Type Severity Reaction Status Date / Time cephalexin monohydrate Allergy Rash/Hives Verified 04/07/19 09:59 [From Keflex] Iodinated Contrast Media Allergy Rash/Hives Verified 04/07/19 09:59 [Iodinated Contrast Media - IV Dye] Sulfa (Sulfonamide Allergy Rash/Hives Verified 04/07/19 09:59 Antibiotics) adhesive tape Allergy Rash/Hives Uncoded 04/07/19 09:59 Review of Systems ROS Other: All systems not noted in ROS Statement are negative. <Erickson Holloway - Last Filed: 04/07/19 12:07> ROS Other: All systems not noted in ROS Statement are negative. <Valeriy Grant - Last Filed: 04/07/19 12:18> ROS Statement: Those systems with pertinent positive or pertinent negative responses have been documented in the HPI. Past Medical History Past Medical History: GERD/Reflux, Hyperlipidemia, Osteoarthritis (OA), Thyroid Disorder Additional Past Medical History / Comment(s): SEE DR HARRIS'S H&P, complicatio ns from heart ablation History of Any Multi-Drug Resistant Organisms: None Reported Past Surgical History: Breast Surgery Additional Past Surgical History / Comment(s): rt knee replacement, Rt foot surgery, Rt elbow surgery,rt wrist ganglion cyst, partial thyroidectomy,back surgery x 3, ABLATION 05/2014, (R) breast lumpectomy. Past Anesthesia/Blood Transfusion Reactions: No Reported Reaction Additional Past Anesthesia/Blood Transfusion Reaction / Comment(s): pt unsure of exact reactiont, on ventilator for 2 days after cardiac ablation Past Psychological History: Depression Smoking Status: Never smoker Past Alcohol Use History: None Reported Past Drug Use History: None Reported - Past Family History Mother Family Medical History: Cancer, Deep Vein Thrombosis (DVT) <Valeriy Grant - Last Filed: 04/07/19 12:18> General Exam Limitations: no limitations General appearance: alert, in no apparent distress Head exam: Present: atraumatic, normocephalic, normal inspection Eye exam: Present: normal appearance, PERRL, EOMI Pupils: Present: normal accommodation ENT exam: Present: normal exam, normal oropharynx, mucous membranes moist, TM's normal bilaterally, normal external ear exam Neck exam: Present: normal inspection, full ROM Respiratory exam: Present: normal lung sounds bilaterally, other (Lower quadrant tenderness. Induration measuring 2 cm x 4 cm. Fluctuance at the site of yellow discharge. Puslike discharge mixed with blood.) Cardiovascular Exam: Present: regular rate, normal rhythm, normal heart sounds Extremities exam: Present: normal inspection, full ROM Back exam: Present: normal inspection, full ROM Neurological exam: Present: alert, oriented X3 Psychiatric exam: Present: normal affect, normal mood Skin exam: Present: warm, dry, intact, normal color <Valeriy Grant - Last Filed: 04/07/19 12:18> Course Vital Signs 04/07/19 09:55 Temperature 99.2 F Pulse Rate 82 Respiratory 18 Rate Blood Pressure 116/75 O2 Sat by Pulse 97 Oximetry Medical Decision Making <Erickson Holloway - Last Filed: 04/07/19 12:07> <Valeriy Grant - Last Filed: 04/07/19 12:18> - Medical Decision Making The patient was seen and examined. All diagnostics were reviewed. The case is discussed with Dr. Haines who does feel as though patient should be admitted to the hospital under medicine with her to consult. Case also was discussed with the PA and I am agreeable with documentation. (Erickson Holloway) Patient is a 68-year-old female with history of breast cancer presenting to emergency Department with a chief complaint of a breast abscess. Exam patient does have a large area of induration measuring approximately 3 cm x 5 cm at 4:00 on the right breast. Patient is also complaining of tenderness there. There is some drainage as well. Wound culture obtained. Labs obtained. Patient given analgesia. Patient is on blood thinners. Ultrasound shows an abscess measuring 5.51.65.[address] Stanley Zamora was also consulted. She would like to admit the patient for further medical management. Dr. Angel and Dr. Cates also consulted. Dr. holloway also examined the patient and is in agreement with the treatment plan. (Valeriy Grant) Disposition <Erickson Holloway - Last Filed: 04/07/19 12:07> Is patient prescribed a controlled substance at d/c from ED?: No Time of Disposition: 12:18 <Valeriy Grant - Last Filed: 04/07/19 12:18> Clinical Impression: Breast abscess of female Disposition: ADMITTED IP TO THIS HOSP Condition: Stable Instructions (If sedation given, give patient instructions): Abscess (ED) Additional Instructions: Patient will be admitted Referrals: Curtis Angel MD [Primary Care Provider] - 1-2 days
[2019-04-07] MEDS ORDERED: MORPHINE SULFATE 4 MG/ML SYRINGE IV STA (11:54)
[2019-04-07] MEDS ORDERED: AMPICILLIN-SULBACTAM 3 GM in SODIUM CHLORIDE 0.9% 100 ML IVPB STA ×2 (11:55→12:31)
--- NOTE | 2019-04-07 11:57 | USB ---
Reason for exam: clinical finding. History: Patient is postmenopausal and has history of breast cancer at age 68. Malignant MG pre op needle loc RT of the right breast, December 24, 2018. Lumpectomy of the right breast, December 24, 2018. Benign US biopsy breast VAD RT of the right breast, November 14, 2018. Malignant US biopsy breast VAD RT of the right breast, October 21, 2018. Malignant US biopsy breast add'l VAD RT of the right breast, October 21, 2018. Benign right mammotome panel of the right breast, February 20, 2012. Excisional biopsy of the right breast, 2001. Benign excisional biopsy of the left breast, July 25, 2000. Took estrogen for 10 years. US Breast Limited RT Right limited breast ultrasound including focal area of concern, retroareolar and axilla demonstrates a 5.5 x 1.6 x 5.9cm mixed, vascular lesion at 3 o'clock. Appears as irregular, fluid collection along scar line, increased vascularity. Abscess with internal thick/phlegmonous debris, surgical consultation recommended for debridement. ASSESSMENT: Benign, BI-RAD 2 RECOMMENDATION: Surgical consultation of the right breast.
[2019-04-07] MEDS ORDERED: VANCOMYCIN IV PER PHARMACY 1 EACH MISC MISCELLANE PRN (12:02)
[2019-04-07] MEDS ORDERED: VANCOMYCIN 2,000 MG in SODIUM CHLORIDE 0.9% 500 ML 500 ML IVPB STA (12:07)
[2019-04-07] MEDS ORDERED: ALPRAZolam 0.25 MG TAB PO PRN (12:12)
[2019-04-07] MEDS ORDERED: ONDANSETRON 4 MG/2 ML VIAL IVP PRN (12:12)
[2019-04-07] MEDS ORDERED: NALOXONE 0.4 MG/ML 1 ML VIAL IV PRN (12:12)
[2019-04-07] MEDS: SODIUM CHLORIDE 0.9% 1,000 ML IV SCH (12:38)
[2019-04-07 12:54] LABS: ALT 27 U/L (4-34); AST 47 U/L (14-36); African American GFR (CKD) >90 (>60 ml/min/1.73 sqM); Albumin 4.1 g/dL (3.5-5.0); Alkaline Phosphatase 155 U/L (38-126); Anion Gap 12 mmol/L; Blood Urea Nitrogen 17 mg/dL (7-17); Calcium 9.5 mg/dL (8.4-10.2); Carbon Dioxide 23 mmol/L (22-30); Chloride 101 mmol/L (98-107); Glucose 134 mg/dL (74-99); Non-African American GFR(CKD) >90 (>60 ml/min/1.73 sqM); Potassium 4.6 mmol/L (3.5-5.1); Sodium 136 mmol/L (137-145); Total Bilirubin 1.3 mg/dL (0.2-1.3); Total Protein 7.6 g/dL (6.3-8.2)
[2019-04-07 12:55] LABS: Basophils # (A) 0.1 k/uL (0-0.2); Basophils % (A) 1 %; Eosinophils # (A) 0.1 k/uL (0-0.7); Eosinophils % (A) 1 %; HCT 42.3 % (34.0-46.0); HGB 14.1 gm/dL (11.4-16.0); Lymphocytes # (A) 1.8 k/uL (1.0-4.8); Lymphocytes % (A) 11 %; MCH 29.4 pg (25.0-35.0); MCHC 33.4 g/dL (31.0-37.0); MCV 88.1 fL (80.0-100.0); Mean Platelet Volume 8.6; Monocytes # (A) 0.6 k/uL (0-1.0); Monocytes % (A) 4 %; Neutrophils # (A) 12.9 k/uL (1.3-7.7); Neutrophils % (A) 82 %; Platelet Count 421 k/uL (150-450); RDW 13.1 % (11.5-15.5); WBC 15.8 k/uL (3.8-10.6)
[2019-04-07 12:57] LABS: INR 1.2 (<1.2); Partial Thromboplastin Time 32.8 sec (22.0-30.0); Prothrombin Time 12.4 sec (9.0-12.0)
[2019-04-07] MEDS: MORPHINE SULFATE 4 MG/ML SYRINGE IV PRN ×2 (15:55→20:34)
--- NOTE | 2019-04-07 18:13 | P.HPIM ---
History of Present Illness 68-year-old female presented the emergency room with complaints of right breast drainage postoperatively with redness. Patient states she's had problems for about [address] Stanley Zamora. Patient scheduled for OR tomorrow for I&D Review of Systems Breasts: right: masses (Discharge), swelling Past Medical History Past Medical History: Atrial Fibrillation, Atrial Flutter, Cancer, Chest Pain / Angina, GERD/Reflux, Hyperlipidemia, Hypertension, Osteoarthritis (OA), Thyroid Disorder Additional Past Medical History / Comment(s): R breast cancer with lumpectomy 09/2018, cardiomyopathy, pleurisy, thyroid surgery d/t goiter-hypothyroid, arthritis in multiple joints, chronic low back pain. History of Any Multi-Drug Resistant Organisms: None Reported Past Surgical History: Back Surgery, Bladder Surgery, Breast Surgery, Cardiac Ablation, Cholecystectomy, EPS, Heart Catheterization, Hernia Repair, Hysterectomy, Joint Replacement, Orthopedic Surgery Additional Past Surgical History / Comment(s): R breast core bx/needle loc, R breast lumpectomy/axillary node dissection, EPS/ablation of aflutter, CHATO, cardioversion, low back surgeries with plate/screws, total R knee arthroplasties x 3, R foot multiple surgeries for spur/neuromas, L foot cystectomy, R elbow injury with surgery, R wrist ganglion cystectomy, partial right sided thyroidectomy, 4 abdominal hernia repairs, bladder suspension, colonoscopy Past Anesthesia/Blood Transfusion Reactions: No Reported Reaction Additional Past Anesthesia/Blood Transfusion Reaction / Comment(s): 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 Mother Family Medical History: Cancer, Deep Vein Thrombosis (DVT) Additional Family Medical History / Comment(s): Skin and breast cancer. Medications and Allergies Home Medications Medication Instructions Recorded Confirmed Type Atenolol 100 mg PO DAILY 02/19/14 04/07/19 History Levothyroxine Sodium [Synthroid] 88 mcg PO DAILY 02/19/14 04/07/19 History Simvastatin [Zocor] 20 mg PO DAILY 02/19/14 04/07/19 History amLODIPine/VALSARTAN [Exforge 1 tab PO DAILY 02/19/14 04/07/19 History 5-320 MG] Citalopram Hydrobromide 40 mg PO DAILY 10/07/18 04/07/19 History [Citalopram HBr] HYDROcodone/APAP 10-325MG [[place] 1 tab PO Q4H PRN 12/23/18 04/07/19 History 10-325] Rivaroxaban [Xarelto] 20 mg PO HS 12/25/18 04/07/19 History Anastrozole [Arimidex] 1 mg PO DAILY 04/07/19 04/07/19 History Allergies Allergy/AdvReac Type Severity Reaction Status Date / Time cephalexin monohydrate Allergy Rash/Hives Verified 04/07/19 12:25 [From Keflex] Iodinated Contrast Media Allergy Rash/Hives Verified 04/07/19 12:25 [Iodinated Contrast Media - IV Dye] Sulfa (Sulfonamide Allergy Rash/Hives Verified 04/07/19 12:25 Antibiotics) adhesive tape Allergy Rash/Hives Uncoded 04/07/19 09:59 Physical Exam Vitals: Vital Signs Temp Pulse Resp BP Pulse Ox 04/07/19 09:55 99.2 F 82 18 116/75 97 Intake and Output 04/07/19 04/07/19 04/07/19 06:59 14:59 22:59 Other: Weight 124.738 kg - Constitutional General appearance: mild distress - EENT Eyes: PERRLA Ears: bilateral: normal - Neck Neck: normal ROM - Respiratory Respiratory: bilateral: CTA - Cardiovascular Rhythm: regular - Gastrointestinal General gastrointestinal: soft - Integumentary Right best tender to touch firm with drainage erythemic Integumentary: cellulitis - Neurologic Neurologic: CNII-XII intact - Musculoskeletal Musculoskeletal: gait normal - Psychiatric Psychiatric: A&O x's 3, appropriate affect, intact judgment & insight Results CBC & Chem 7: 04/07/19 12:35 04/07/19 12:35 Labs: Abnormal Lab Results - Last 24 Hours (Table) 04/07/19 04/07/19 04/07/19 Range/Units 12:35 12:35 12:35 WBC 15.8 H (3.8-10.6) k/uL Neutrophils # 12.9 H (1.3-7.7) k/uL PT 12.4 H (9.0-12.0) sec INR 1.2 H (<1.2) APTT 32.8 H (22.0-30.0) sec Sodium 136 L (137-145) mmol/L Glucose 134 H (74-99) mg/dL AST 47 H (14-36) U/L Alkaline Phosphatase 155 H (38-126) U/L Microbiology - Last 24 Hours (Table) 04/07/19 10:40 Wound Culture - Preliminary Breast - Right Thrombosis Risk Factor Assmnt - Choose All That Apply Any of the Below Risk Factors Present?: Yes Each Factor Represents 1 point: Obesity (BMI >25) Other Risk Factors: Yes Each Risk Factor Represents 2 Points: Age 61-74 years, Malignancy Other congenital or acquired thrombophilia - If yes, enter type in comment: No Thrombosis Risk Factor Assessment Total Risk Factor Score: 5 Thrombosis Risk Factor Assessment Level: High Risk Assessment and Plan Plan: Assessment Right breast abscess postoperatively History of cardiomyopathy Paroxysmal atrial flutter fib/flutter GERD Hyperlipidemia Osteoarthritis Hypothyroidism Plan Consultation with surgeon Dr. Stanley Zamora Oncology Dr. Cates On vancomycin
--- NOTE | 2019-04-07 19:35 | P.GSHP ---
History of Present Illness H&P Date: 04/07/19 Chief Complaint: Right breast swelling Gabrielle is a 68-year-old white female who presented to the emergency department with a several week history of swelling and then drainage from the medial aspect of the right breast. She is seen in consultation for Dr. Curtis Angel with r espect to this. Of importance is the fact that she is status post a right breast lumpectomy and sentinel node biopsy on . This was done for a stage IA right breast cancer. This was T1c and 0M0 G2 ER positive MN positive HER- 2/kaylene negative. Post procedure she did not receive radiation therapy. She did not receive chemotherapy. She is presently on anastrozole. The swelling began approximately 6 weeks ago. She then over the past 3 weeks had increased tenderness. Today she noted that she has some drainage from the area. She states that a week ago she had a fever up to 104 however she had muscle aches and pains associated with that and other members of her family were sac. She do es not have a fever at this time. She had an ultrasound performed today which revealed a 5.5 x 5.9 cm fluid collection near the area of the scar. Family history: Mother: Skin and breast cancer Surgical history: 1. 3 back surgeries 2. 3 knee replacements 3. Heel surgery 4. Right elbow 5. Right thyroid resection 6. Heart ablation 7. 4 hernia surgeries 8. Cholecystectomy Medical history: 1. Hypothyroid 2. Hypertension 3. high cholesterol 4. Atrial fibrillation Social history: Smoke: Negative Occult: Negative Drugs: Negative - Constitutional Constitutional: Denies chills, Denies fever - EENT Eyes: denies blurred vision, denies pain Ears, nose, mouth and throat: Denies headache, Denies sore throat - Breasts Breasts: bilateral: as per HPI - Cardiovascular Comment: Atrial fibrillation, on xeralto - Respiratory Comment: Left diaphragm paralyzed - Gastrointestinal Gastrointestinal: Denies abdominal pain, Denies diarrhea, Denies nausea, Denies vomiting - Genitourinary (Female) Genitourinary: Reports kidney stones - Menstruation Menstruation: Reports postmenopausal - Musculoskeletal Musculoskeletal: Reports muscle weakness - Integumentary Comment: Mild erythema medial aspect of right breast - Neurological Neurological: Reports weakness - Psychiatric Psychiatric: Reports depression - Endocrine Endocrine: Reports fatigue - Hematologic/Lymphatic Comment: on xeralto - Allergic/Immunologic Allergic/Immunologic: Reports seasonal allergies Past Medical History Past Medical History: Atrial Fibrillation, Atrial Flutter, Cancer, Chest Pain / Angina, GERD/Reflux, Hyperlipidemia, Hypertension, Osteoarthritis (OA), Thyroid Disorder Additional Past Medical History / Comment(s): R breast cancer with lumpectomy 09/2018, cardiomyopathy, pleurisy, thyroid surgery d/t goiter-hypothyroid, arthritis in multiple joints, chronic low back pain. History of Any Multi-Drug Resistant Organisms: None Reported Past Surgical History: Back Surgery, Bladder Surgery, Breast Surgery, Cardiac Ablation, Cholecystectomy, EPS, Heart Catheterization, Hernia Repair, Hysterectomy, Joint Replacement, Orthopedic Surgery Additional Past Surgical History / Comment(s): R breast core bx/needle loc, R breast lumpectomy/axillary node dissection, EPS/ablation of aflutter, CHATO, cardioversion, low back surgeries with plate/screws, total R knee arthroplasties x 3, R foot multiple surgeries for spur/neuromas, L foot cystectomy, R elbow injury with surgery, R wrist ganglion cystectomy, partial right sided thyroidectomy, 4 abdominal hernia repairs, bladder suspension, colonoscopy Past Anesthesia/Blood Transfusion Reactions: No Reported Reaction Additional Past Anesthesia/Blood Transfusion Reaction / Comment(s): 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 Mother Family Medical History: Cancer, Deep Vein Thrombosis (DVT) Additional Family Medical History / Comment(s): Skin and breast cancer. Medications and Allergies Home Medications Medication Instructions Recorded Confirmed Type Atenolol 100 mg PO DAILY 02/19/14 04/07/19 History Levothyroxine Sodium [Synthroid] 88 mcg PO DAILY 02/19/14 04/07/19 History Simvastatin [Zocor] 20 mg PO DAILY 02/19/14 04/07/19 History amLODIPine/VALSARTAN [Exforge 1 tab PO DAILY 02/19/14 04/07/19 History 5-320 MG] Citalopram Hydrobromide 40 mg PO DAILY 10/07/18 04/07/19 History [Citalopram HBr] HYDROcodone/APAP 10-325MG [[place] 1 tab PO Q4H PRN 12/23/18 04/07/19 History 10-325] Rivaroxaban [Xarelto] 20 mg PO HS 12/25/18 04/07/19 History Anastrozole [Arimidex] 1 mg PO DAILY 04/07/19 04/07/19 History Allergies Allergy/AdvReac Type Severity Reaction Status Date / Time cephalexin monohydrate Allergy Rash/Hives Verified 04/07/19 12:25 [From Keflex] Iodinated Contrast Media Allergy Rash/Hives Verified 04/07/19 12:25 [Iodinated Contrast Media - IV Dye] Sulfa (Sulfonamide Allergy Rash/Hives Verified 04/07/19 12:25 Antibiotics) adhesive tape Allergy Rash/Hives Uncoded 04/07/19 09:59 Surgical - Exam Vital Signs Temp Pulse Resp BP Pulse Ox 99.2 F 82 18 116/75 97 04/07/19 09:55 04/07/19 09:55 04/07/19 09:55 04/07/19 09:55 04/07/19 09:55 BMI 44.4 - General obese - Eyes normal ocular movement - ENT no hearing loss, no congestion - Neck trachea midline, no lymphadectomy, no venous distension - Respiratory normal expansion, normal respiratory effort, clear to percussion, clear to auscultation - Cardiovascular Heart Sounds: normal: S1, S2 - Abdomen Abdomen: soft, bowel sounds - Integumentary Mild edema and erythema medial aspect of the right breast - Neurologic no disoriented, no combative - Musculoskeletal Reclining on stretcher - Psychiatric oriented to time, oriented to person, oriented to place, speech is normal, memory intact Examination of the right breast reveals some mild erythema noted edema in the medial aspect There is some minimal drainage at the medial aspect of the incision The incision is otherwise well-healed No palpable fluctuant area is noted Results Ultrasound of the right breast reveals a 5.5 x 5.9 cm fluid collection near the area of the scar Blood cell count 15.8 - Labs 04/07/19 12:35 04/07/19 12:35 Abnormal Lab Results - Last 24 Hours (Table) 04/07/19 04/07/19 04/07/19 Range/Units 12:35 12:35 12:35 WBC 15.8 H (3.8-10.6) k/uL Neutrophils # 12.9 H (1.3-7.7) k/uL PT 12.4 H (9.0-12.0) sec INR 1.2 H (<1.2) APTT 32.8 H (22.0-30.0) sec Sodium 136 L (137-145) mmol/L Glucose 134 H (74-99) mg/dL AST 47 H (14-36) U/L Alkaline Phosphatase 155 H (38-126) U/L Microbiology - Last 24 Hours (Table) 04/07/19 10:40 Wound Culture - Preliminary Breast - Right Diabetes panel 04/07/19 Range/Units 12:35 Sodium 136 L (137-145) mmol/L Potassium 4.6 (3.5-5.1) mmol/L Chloride 101 (98-107) mmol/L Carbon Dioxide 23 (22-30) mmol/L BUN 17 (7-17) mg/dL Creatinine 0.64 (0.52-1.04) mg/dL Glucose 134 H (74-99) mg/dL Calcium 9.5 (8.4-10.2) mg/dL AST 47 H (14-36) U/L ALT 27 (4-34) U/L Alkaline Phosphatase 155 H (38-126) U/L Total Protein 7.6 (6.3-8.2) g/dL Albumin 4.1 (3.5-5.0) g/dL Calcium panel 04/07/19 Range/Units 12:35 Calcium 9.5 (8.4-10.2) mg/dL Albumin 4.1 (3.5-5.0) g/dL Pituitary panel 04/07/19 Range/Units 12:35 Sodium 136 L (137-145) mmol/L Potassium 4.6 (3.5-5.1) mmol/L Chloride 101 (98-107) mmol/L Carbon Dioxide 23 (22-30) mmol/L BUN 17 (7-17) mg/dL Creatinine 0.64 (0.52-1.04) mg/dL Glucose 134 H (74-99) mg/dL Calcium 9.5 (8.4-10.2) mg/dL Adrenal panel 04/07/19 Range/Units 12:35 Sodium 136 L (137-145) mmol/L Potassium 4.6 (3.5-5.1) mmol/L Chloride 101 (98-107) mmol/L Carbon Dioxide 23 (22-30) mmol/L BUN 17 (7-17) mg/dL Creatinine 0.64 (0.52-1.04) mg/dL Glucose 134 H (74-99) mg/dL Calcium 9.5 (8.4-10.2) mg/dL Total Bilirubin 1.3 (0.2-1.3) mg/dL AST 47 H (14-36) U/L ALT 27 (4-34) U/L Alkaline Phosphatase 155 H (38-126) U/L Total Protein 7.6 (6.3-8.2) g/dL Albumin 4.1 (3.5-5.0) g/dL Assessment and Plan Assessment: Impression: 1. Recent swelling and drainage of right breast near the area of prior lumpectomy 2. Leukocytosis 3. Probable abscess partially drained right breast 4. Family history of breast cancer 5. Osteoarthritis 6. Status post multiple back surgeries 7. Hypothyroid 8. Hypertension. 9. High cholesterol 10. Atrial fibrillation on blood thinner Plan: 1. Patient started on vancomycin 2. Medical clearance prior to possible I&D of the right breast in the OR 3. hold xeralto if okay with medicine time 30 minutes, > 50% planning and counselling Time with Patient: Greater than 30
--- NOTE | 2019-04-07 19:45 | P.CONS ---
History of Present Illness - Reason for Consult Consult date: 04/07/19 breast cancer Requesting physician: Valeriy Grant - Chief Complaint drainage from breast - History of Present Illness Mrs. vance is a very pleasant 68-year-old female patient who is seen Dr. Loan rocha in January 2019 for recommendations regarding her diagnosis of right breast cancer. Patient presented with a abnormal right breast screening in August 2018. Additional imaging showed a 1.1 cm lesion in the left inner quadrant of the right breast. 10/21/18 core biopsy was positive for invasive carcinoma. December 24, 2018 she had a lumpectomy with sentinel node biopsy, final path revealed a grade 2, invasive ductal carcinoma, 1.4 cm, negative sentinel lymph nodes, ER/MS strongly positive and HER-2/kaylene negative. She was seen by Dr. Tavarez, no radiation necessary. She had Oncotype DX with a low risk of recurrence score. Plan was to begin endocrine therapy, prescription was sent for anastrozole on March 05. Patient states that over the last couple weeks she has had progressive firmness in the area of lumpectomy, this progressed to become painful, reddened, warm to the touch, patient suddenly had a large amount of drainage, this was exacerbated when she raised the breast, the fluid that drained was cloudy brown, she came to the emergency department for evaluation. She has been placed on antibiotics appropriately, had a ultrasound of the breast showing a large abscessed area. She is pending evaluation by the surgeon for possible I&D based on findings. Patient denied any fevers, chills, nausea, vomiting, she states that she has had diarrhea since starting her AI, as well as pretty profound sweats (may be related to infection?). Review of Systems 14 point review of systems is negative except as stated in HPI Past Medical History Past Medical History: Atrial Fibrillation, Atrial Flutter, Cancer, Chest Pain / Angina, GERD/Reflux, Hyperlipidemia, Hypertension, Osteoarthritis (OA), Thyroid Disorder Additional Past Medical History / Comment(s): R breast cancer with lumpectomy 09/2018, cardiomyopathy, pleurisy, thyroid surgery d/t goiter-hypothyroid, arthritis in multiple joints, chronic low back pain. History of Any Multi-Drug Resistant Organisms: None Reported Past Surgical History: Back Surgery, Bladder Surgery, Breast Surgery, Cardiac Ablation, Cholecystectomy, EPS, Heart Catheterization, Hernia Repair, Hysterectomy, Joint Replacement, Orthopedic Surgery Additional Past Surgical History / Comment(s): R breast core bx/needle loc, R breast lumpectomy/axillary node dissection, EPS/ablation of aflutter, CHATO, cardioversion, low back surgeries with plate/screws, total R knee arthroplasties x 3, R foot multiple surgeries for spur/neuromas, L foot cystectomy, R elbow injury with surgery, R wrist ganglion cystectomy, partial right sided thyroidectomy, 4 abdominal hernia repairs, bladder suspension, colonoscopy Past Anesthesia/Blood Transfusion Reactions: No Reported Reaction Additional Past Anesthesia/Blood Transfusion Reaction / Comm: 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 Mother Family Medical History: Cancer, Deep Vein Thrombosis (DVT) Additional Family Medical History / Comment(s): Skin and breast cancer. Medications and Allergies Home Medications Medication Instructions Recorded Confirmed Type Atenolol 100 mg PO DAILY 02/19/14 04/07/19 History Levothyroxine Sodium [Synthroid] 88 mcg PO DAILY 02/19/14 04/07/19 History Simvastatin [Zocor] 20 mg PO DAILY 02/19/14 04/07/19 History amLODIPine/VALSARTAN [Exforge 1 tab PO DAILY 02/19/14 04/07/19 History 5-320 MG] Citalopram Hydrobromide 40 mg PO DAILY 10/07/18 04/07/19 History [Citalopram HBr] HYDROcodone/APAP 10-325MG [[place] 1 tab PO Q4H PRN 12/23/18 04/07/19 History 10-325] Rivaroxaban [Xarelto] 20 mg PO HS 12/25/18 04/07/19 History Anastrozole [Arimidex] 1 mg PO DAILY 04/07/19 04/07/19 History Allergies Allergy/AdvReac Type Severity Reaction Status Date / Time cephalexin monohydrate Allergy Rash/Hives Verified 04/07/19 12:25 [From Keflex] Iodinated Contrast Media Allergy Rash/Hives Verified 04/07/19 12:25 [Iodinated Contrast Media - IV Dye] Sulfa (Sulfonamide Allergy Rash/Hives Verified 04/07/19 12:25 Antibiotics) adhesive tape Allergy Rash/Hives Uncoded 04/07/19 09:59 Physical Exam Vitals: Vital Signs Temp Pulse Resp BP Pulse Ox 04/07/19 18:00 71 18 121/86 98 04/07/19 17:00 84 18 115/85 98 04/07/19 16:00 83 18 119/71 97 04/07/19 15:00 79 20 125/74 98 04/07/19 09:55 99.2 F 82 18 116/75 97 Intake and Output 04/07/19 04/07/19 04/07/19 06:59 14:59 22:59 Other: Weight 124.738 kg - Constitutional General appearance: cooperative, no acute distress, obese - EENT Eyes: anicteric sclerae, EOMI ENT: hearing grossly normal, normal oropharynx - Neck Neck: no lymphadenopathy - Respiratory Respiratory: bilateral: CTA - Cardiovascular Rhythm: regular Heart sounds: normal: S1, S2 Abnormal Heart Sounds: no systolic murmur, no diastolic murmur, no rub, no S3 Gallop, no S4 Gallop, no click, no other leg Peripheral Edema: bilateral: None - Gastrointestinal General gastrointestinal: normal bowel sounds, soft - Integumentary Right breast, sternal side, 3:00, area of firmness is approximately 6 cm, tender to the touch, redness, mild erythema, he can see an opening where drainage has come out, no foul order currently, mild nipple inversion - Neurologic Neurologic: CNII-XII intact - Musculoskeletal Musculoskeletal: strength equal bilaterally - Psychiatric Psychiatric: A&O x's 3, appropriate affect, intact judgment & insight Results CBC & Chem 7: 04/07/19 12:35 04/07/19 12:35 Labs: Abnormal Lab Results - Last 24 Hours (Table) 04/07/19 04/07/19 04/07/19 Range/Units 12:35 12:35 12:35 WBC 15.8 H (3.8-10.6) k/uL Neutrophils # 12.9 H (1.3-7.7) k/uL PT 12.4 H (9.0-12.0) sec INR 1.2 H (<1.2) APTT 32.8 H (22.0-30.0) sec Sodium 136 L (137-145) mmol/L Glucose 134 H (74-99) mg/dL AST 47 H (14-36) U/L Alkaline Phosphatase 155 H (38-126) U/L Microbiology - Last 24 Hours (Table) 04/07/19 10:40 Wound Culture - Preliminary Breast - Right Comments: Breast ultrasound report reviewed Assessment and Plan Plan: Right breast abscess: Pending surgical evaluation. Right Breast cancer: T1c, pN0, M0, grade 2 stage IA breast cancer hormone rec eptor positive, HER-2/kaylene negative, status post lumpectomy, low recurrence risk score with Oncotype DX, anastrozole started in March, no XRT recommended. Cont anastrazole for now. Will monitor pt reported symptoms (sweats and diarrhea) as she is treated for infection. F/U Dr. Cates is sched for May.
[2019-04-07] MEDS: HYDROcodone/APAP 5-325MG 1 EACH TAB PO PRN (22:32)
[2019-04-08] MEDS: VANCOMYCIN 2,000 MG in SODIUM CHLORIDE 0.9% 500 ML 500 ML IVPB SCH ×3 (00:47→23:43)
[2019-04-08] MEDS: MORPHINE SULFATE 4 MG/ML SYRINGE IV PRN ×5 (00:48→22:03)
[2019-04-08] MEDS: HYDROcodone/APAP 5-325MG 1 EACH TAB PO PRN ×3 (02:33→12:28)
[2019-04-08] MEDS: SODIUM CHLORIDE 0.9% 1,000 ML IV SCH ×2 (08:39→17:17)
[2019-04-08 08:53] LABS: African American GFR (CKD) >90 (>60 ml/min/1.73 sqM); Non-African American GFR(CKD) >90 (>60 ml/min/1.73 sqM)
[2019-04-08] MEDS: ATENOLOL 50 MG TAB PO SCH (09:27)
[2019-04-08] MEDS: VALSARTAN 160 MG TAB PO SCH (09:27)
[2019-04-08] MEDS: LEVOTHYROXINE 88 MCG TAB PO SCH (09:27)
[2019-04-08] MEDS: amLODIPine 5 MG TAB PO SCH (09:27)
[2019-04-08] MEDS: ATORVASTATIN 10 MG TAB PO SCH (09:28)
[2019-04-08] MEDS: CITALOPRAM HYDROBROMIDE 20 MG TAB PO SCH (09:28)
[2019-04-08] MEDS: ANASTROZOLE 1 MG TAB PO SCH (09:28)
--- NOTE | 2019-04-08 11:16 | USB ---
Reason for exam: clinical finding. History: Patient is postmenopausal and has history of breast cancer at age 68. Malignant MG pre op needle loc RT of the right breast, December 24, 2018. Lumpectomy of the right breast, December 24, 2018. Benign US biopsy breast VAD RT of the right breast, November 14, 2018. Malignant US biopsy breast VAD RT of the right breast, October 21, 2018. Malignant US biopsy breast add'l VAD RT of the right breast, October 21, 2018. Benign right mammotome panel of the right breast, February 20, 2012. Excisional biopsy of the right breast, 2001. Benign excisional biopsy of the left breast, July 25, 2000. Took estrogen for 10 years. Indicated problem(s): pain in the right breast. US Breast Limited RT Technologist: Silva Diaz Right limited breast ultrasound including focal area of concern, retroareolar and axilla demonstrates diffuse fluid collection seen with visual interval echoes moung. Smaller, diffuse edema and phlegmongous change with vascularity. Improving abscess. These results were verbally communicated with the patient and result sheet given to the patient on 04/08/19. ASSESSMENT: Benign, BI-RAD 2 RECOMMENDATION: Surgical consultation of the right breast. Continued surgical/medical management.
[2019-04-08 12:21] LABS: HCT 36.9 % (34.0-46.0); MCH 28.5 pg (25.0-35.0); MCHC 32.6 g/dL (31.0-37.0); MCV 87.5 fL (80.0-100.0); Mean Platelet Volume 8.8; Platelet Count 348 k/uL (150-450); RBC 4.22 m/uL (3.80-5.40); RDW 13.1 % (11.5-15.5); WBC 9.9 k/uL (3.8-10.6)
[2019-04-08 12:26] LABS: INR 1.1 (<1.2); Prothrombin Time 11.6 sec (9.0-12.0)
--- NOTE | 2019-04-08 13:18 | P.CRDCN ---
History of Present Illness History of present illness: HISTORY OF PRESENTING ILLNESS This is a pleasant 68-year-old female past medical history significant for atrial fibrillation/flutter s/p ablation, hypertension, dyslipidemia, breast cancer status post lumpectomy and right tate-diaphragm paralysis. She no longer follows in the office with a sensor operator since 2013. We have been asked to see in consultation for pre-operative evaluation. She underwent a right breast lumpectomy in September [address] Stanley Zamora. Up until 1-month ago she was feeling ok until she started noticing a hardness to her right breast and then significant tenderness. She underwent an ultrasound of the breast revealing irregular fluid collection with increased vascularity, abscess with internal debris. Surgical consultation was obtained and Dr. Angel. Plans for incision and drainage today. She is seen and examined sitting up in bed with family at t he bedside. She denies symptoms of chest pain, shortness of breath, dizziness or palpitations. She is quite limited with her activity at home due to shortness of breath with exertion attributed to her right tate-diaphragm paralysis. This has been ongoing since 2014. No changes recently in her breathing. DIAGNOSTICS EKG reveals atrial flutter with a 3:1 conduction. Laboratory reviewed, WBC on admission 15.8 repeat today 9.9, hgb 12, plt 348, sodium 136, potassium 4.6, creatinine 0.57. Current cardiac medications include amlodipine/valsartan 5/320 mg daily, simvastatin 20 mg daily, Xarelto 20 mg at bedtime and atenolol 100 mg daily. Her last dose of Xarelto was in April 06. Most recent echo obtained December 2018 reveals preserved LV systolic function with ejection fraction 50-55%, mild to moderate MR, moderate TR and moderate pulmonary hypertension with an RVSP of 42 mmHg. Most recent stress test performed December 2018 was negative for reversible cardiac ischemia. Most recent cardiac catheterization 2013 revealed normal or negative artery to obstructive disease. REVIEW OF SYSTEMS At the time of my exam: CONSTITUTIONAL: Denies fever or chills. CARDIOVASCULAR: Denies chest pain, shortness of breath, orthopnea, PND or palpitations. RESPIRATORY: Denies cough. GASTROINTESTINAL: Denies abdominal pain, diarrhea, constipation, nausea or vomiting. MUSCULOSKELETAL: Denies myalgias. Complains of pain to the right breast. NEUROLOGIC: Denies numbness, tingling or weakness. ENDOCRINE: Denies fatigue, weight change, polydipsia or polyurina. GENITOURINARY: Denies burning, hematuria or urgency with micturation. HEMATOLOGIC: Denies history of anemia or bleeding. PHYSICAL EXAMINATION Blood pressure 108/69 heart rate 86 afebrile and maintaining oxygen saturation on room air. CONSTITUTIONAL: No apparent distress. HEENT: Head is normocephalic. Pupils are equal, round. Sclerae anicteric. Mucous membranes of the mouth are moist. No JVD. No carotid bruit. CHEST EXAMINATION: Lungs are clear to auscultation. No chest wall tenderness is noted on palpation or with deep breathing. HEART EXAMINATION: Regular rate and rhythm. S1, S2 heard. Systolic ejection murmur at the left sternal border, no gallops or rub. ABDOMEN: Soft, nontender. Positive bowel sounds. EXTREMITIES: 2+ peripheral pulses, no lower extremity edema and no calf tenderness. NEUROLOGIC EXAMINATION: Patient is awake, alert and oriented x3. ASSESSMENT Right breast abscess status post lumpectomy Breast cancer Paroxysmal atrial fibrillation/flutter on long-term anticoagulation status post ablation in 2014 Hypertension Dyslipidemia PLAN There is no acute contraindications to undergo incision and drainage today. Recommend cautious fluid administration and optimal blood pressure control intra-operatively. Continue atenolol, amlodipine and valsartan as previously ordered. Apply teletypesetter monitor. Thank you kindly for this consultation. Nurse Practitioner note has been reviewed, I agree with a documented findings and plan of care. Patient was seen and examined. Past Medical History Past Medical History: Atrial Fibrillation, Atrial Flutter, Cancer, Chest Pain / Angina, GERD/Reflux, Hyperlipidemia, Hypertension, Osteoarthritis (OA), Thyroid Disorder Additional Past Medical History / Comment(s): R breast cancer with lumpectomy 09/2018, cardiomyopathy, pleurisy, thyroid surgery d/t goiter-hypothyroid, arthritis in multiple joints, chronic low back pain. History of Any Multi-Drug Resistant Organisms: None Reported Past Surgical History: Back Surgery, Bladder Surgery, Breast Surgery, Cardiac Ablation, Cholecystectomy, EPS, Heart Catheterization, Hernia Repair, Hysterectomy, Joint Replacement, Orthopedic Surgery Additional Past Surgical History / Comment(s): R breast core bx/needle loc, R breast lumpectomy/axillary node dissection, EPS/ablation of aflutter, CHATO, cardioversion, low back surgeries with plate/screws, total R knee arthroplasties x 3, R foot multiple surgeries for spur/neuromas, L foot cystectomy, R elbow injury with surgery, R wrist ganglion cystectomy, partial right sided thyroidectomy, 4 abdominal hernia repairs, bladder suspension, colonoscopy Past Anesthesia/Blood Transfusion Reactions: No Reported Reaction Additional Past Anesthesia/Blood Transfusion Reaction / Comment(s): 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 Mother Family Medical History: Cancer, Deep Vein Thrombosis (DVT) Additional Family Medical History / Comment(s): Skin and breast cancer. Medications and Allergies Home Medications Medication Instructions Recorded Confirmed Type Atenolol 100 mg PO DAILY 02/19/14 04/07/19 History Levothyroxine Sodium [Synthroid] 88 mcg PO DAILY 02/19/14 04/07/19 History Simvastatin [Zocor] 20 mg PO DAILY 02/19/14 04/07/19 History amLODIPine/VALSARTAN [[place] 1 tab PO DAILY 02/19/14 04/07/19 History 5-320 MG] Citalopram Hydrobromide 40 mg PO DAILY 10/07/18 04/07/19 History [Citalopram HBr] HYDROcodone/APAP 10-325MG [[place] 1 tab PO Q4H PRN 12/23/18 04/07/19 History 10-325] Rivaroxaban [Xarelto] 20 mg PO HS 12/25/18 04/07/19 History Anastrozole [Arimidex] 1 mg PO DAILY 04/07/19 04/07/19 History Allergies Allergy/AdvReac Type Severity Reaction Status Date / Time cephalexin monohydrate Allergy Rash/Hives Verified 04/07/19 12:25 [From Keflex] Iodinated Contrast Media Allergy Rash/Hives Verified 04/07/19 12:25 [Iodinated Contrast Media - IV Dye] Sulfa (Sulfonamide Allergy Rash/Hives Verified 04/07/19 12:25 Antibiotics) adhesive tape Allergy Rash/Hives Uncoded 04/07/19 09:59 Physical Exam Vitals: Vital Signs Temp Pulse Pulse Resp BP BP Pulse Ox 04/08/19 08:00 16 04/08/19 07:00 98.1 F 86 16 108/69 94 L 04/07/19 23:00 100.1 F H 75 14 127/74 93 L 04/07/19 20:31 98.6 F 90 18 113/75 97 04/07/19 18:00 71 18 121/86 98 04/07/19 17:00 84 18 115/85 98 04/07/19 16:00 83 18 119/71 97 04/07/19 15:00 79 20 125/74 98 Intake and Output 04/07/19 04/08/19 04/08/19 22:59 06:59 14:59 Intake Total 555 875 Balance 555 875 Intake: IV 75 875 Sodium Chloride 0.9% 1, 75 375 000 ml @ 75 mls/hr IV . [id number] [facility] Rx#:[id number] Vancomycin 2,000 mg In 500 Sodium Chloride 0.9% 500 ml 500 ml @ 167 mls/hr IVPB ONCE STA Rx#: [id number] Oral 480 Other: Voiding Method Toilet Toilet # Voids 1 2 Results 04/08/19 12:08 04/08/19 07:59 Coagulation 04/07/19 04/08/19 04/08/19 Range/Units 12:35 12:08 12:08 PT 12.4 H 11.6 (9.0-12.0) sec APTT 32.8 H 26.7 (22.0-30.0) sec CBC 04/07/19 04/08/19 Range/Units 12:35 12:08 WBC 15.8 H 9.9 (3.8-10.6) k/uL RBC 4.80 4.22 (3.80-5.40) m/uL Hgb 14.1 12.0 (11.4-16.0) gm/dL Hct 42.3 36.9 (34.0-46.0) % Plt Count 421 348 (150-450) k/uL Comprehensive Metabolic Panel 04/08/19 Range/Units 07:59 Creatinine 0.57 (0.52-1.04) mg/dL Current Medications Generic Name Dose Route Start Last Admin Trade Name Freq PRN Reason Stop Dose Admin Hydrocodone Bitart/Acetaminophen 1 each 04/07/19 12:12 01/07/20 12:28 [place] 5-325 PO 1 each Q4HR PRN Administration Moderate Pain Alprazolam 0.25 mg 04/07/19 12:12 04/08/19 00:48 Xanax PO 0.25 mg Q6HR PRN Administration Anxiety Amlodipine Besylate 5 mg 04/08/19 09:00 04/08/19 09:27 Norvasc PO 5 mg DAILY [facility] Administration Anastrozole 1 mg 04/08/19 09:00 04/08/19 09:28 Arimidex PO 1 mg DAILY [facility] Administration Atenolol 100 mg 04/08/19 09:00 04/08/19 09:27 Tenormin PO 100 mg DAILY [facility] Administration Atorvastatin Calcium 10 mg 04/08/19 09:00 04/08/19 09:28 Lipitor PO 10 mg DAILY [facility] Administration Citalopram Hydrobromide 40 mg 04/08/19 09:00 04/08/19 09:28 Celexa PO 40 mg DAILY [facility] Administration Sodium Chloride 1,000 mls @ 75 mls/hr 04/07/19 12:15 04/08/19 08:39 Saline 0.9% IV 75 mls/hr .[id number] [facility] Administration Vancomycin HCl 2,000 mg/ 500 mls @ 167 mls/hr 04/08/19 00:00 04/08/19 00:47 Sodium Chloride IVPB 167 mls/hr Q12H [facility] Administration Levothyroxine Sodium 88 mcg 04/08/19 06:30 04/08/19 09:27 Synthroid PO 88 mcg 0630 [facility] Administration Morphine Sulfate 4 mg 04/07/19 12:12 04/08/19 09:33 Morphine Sulfate (Inj) IV 4 mg Q4HR PRN Administration Severe Pain Naloxone HCl 0.2 mg 04/07/19 12:12 Narcan IV Q2M PRN Opioid Reversal Ondansetron HCl 4 mg 04/07/19 12:12 Zofran IVP Q8HR PRN Nausea And Vomiting Valsartan 320 mg 04/08/19 09:00 04/08/19 09:27 Diovan PO 320 mg DAILY [facility] Administration Intake and Output 04/07/19 04/08/19 04/08/19 22:59 06:59 14:59 Intake Total 555 875 Balance 555 875 Intake: IV 75 875 Sodium Chloride 0.9% 1, 75 375 000 ml @ 75 mls/hr IV . [id number] [facility] Rx#:[id number] Vancomycin 2,000 mg In 500 Sodium Chloride 0.9% 500 ml 500 ml @ 167 mls/hr IVPB ONCE STA Rx#: [id number] Oral 480 Other: Voiding Method Toilet Toilet # Voids 1 2 04/08/19 12:08 04/08/19 07:59
[2019-04-08] MEDS ORDERED: IV FLUID CONTINUATION 1,000 ML IV ONE (13:41)
--- NOTE | 2019-04-08 13:50 | P.PN ---
Subjective Progress Note Date: 04/08/19 Principal diagnosis: Right breast swelling/abscess The patient is a 68-year-old white female status post right breast lumpectomy approximately December 2018. She several weeks ago developed swelling in the area with tenderness and drainage from the area of the incision. An ultrasound was performed which revealed a fluid collection near the area of the scar with some extension into the deeper breast tissue. The patient had a repeat ultrasound today showing a fluid collection decreased in size but continues to have pain at the site and continues to have erythema and edema near the dependent portion of the medial aspect of the breast. White count is decreased from 15.8-9.9. Coags are PT 11.6 INR 1.1 PTT 26.7. Of concern is the fact that the patient has atrial fibrillation and has been on xeralto which has been stopped for approximately 24 hours at this time. She has been seen by cardiology and cleared for incision and drainage of the abscess in the right breast. Objective - Vital Signs Vital signs: Vital Signs Temp 98.1 F 04/08/19 07:00 Pulse 86 04/08/19 07:00 Resp 16 04/08/19 08:00 BP 108/69 04/08/19 07:00 Pulse Ox 94 L 04/08/19 07:00 Intake & Output 04/07/19 04/08/19 04/08/19 18:59 06:59 18:59 Intake Total 1430 Balance 1430 Weight 124.738 kg Intake: IV 950 Sodium Chloride 0.9% 1, 450 000 ml @ 75 mls/hr IV . [id number] [facility] Rx#:[id number] Vancomycin 2,000 mg In 500 Sodium Chloride 0.9% 500 ml 500 ml @ 167 mls/hr IVPB ONCE STA Rx#: [id number] Oral 480 Other: Voiding Method Toilet Toilet # Voids 2 - Exam BMI 44.4 - Constitutional General appearance: Present: obese - EENT Eyes: Present: EOMI ENT: Present: hearing grossly normal - Respiratory Respiratory: bilateral: CTA - Cardiovascular Heart sounds: normal: S1, S2 - Integumentary Integumentary Comment(s): Dependent edema medial inferior aspect of the right breast Firmness near prior lumpectomy scar Erythema inferior medial left breast - Psychiatric Psychiatric: Present: A&O x's 3, appropriate affect, intact judgment & insight - Additional findings Additional findings: Right breast: Well-healed scar from prior lumpectomy, near this site there is firmness Tenderness and erythema near the area of the lumpectomy scar There is some drainage near the scar site as well - Labs CBC & Chem 7: 04/08/19 12:08 04/08/19 07:59 Labs: Microbiology - Last 24 Hours (Table) 04/07/19 10:40 Gram Stain - Preliminary Breast - Right Wound Culture - Preliminary Presumptive Staph aureus Assessment and Plan Assessment: Impression: 1. Recent swelling and drainage of right breast near the area of prior lumpectomy 2. Leukocytosis improved 3. Probable abscess partially drained right breast 4. Family history of breast cancer 5. Osteoarthritis 6. Status post multiple back surgeries 7. Hypothyroid 8. Hypertension. 9. High cholesterol 10. Atrial fibrillation on blood thinner 11. Repeat ultrasound of the right breast shows decrease in the amount of fluid near the area of presumed abscess however it is not completely resolved Plan: 1. Patient started on vancomycin 2. Cardiac clearance obtained for I&D of abscess 3. xeralto held, for I&D of abscess I discussed with the patient 2 options. The first option is incision and lionel inage in the operating room of the larger area of abscess near the scar. The patient has been told that there is more than one area of fluid accumulation suspicious for abscess within the breast however the other areas are small and would most likely resolve after incision and drainage of the larger area. The larger area appears to have 2 components more superficial area and then a deeper area connected to a. The risk of incision and drainage include bleeding infection reaction to the anesthetic. The patient understands this and wishes to proceed with operative intervention. The second option could include continue treatment with IV antibiotics as the area of fluid accumulation does appear to have decreased in size with some spontaneous drainage. The patient understands that this may not resolve without operative intervention and wishes operative intervention. If also discussed with the patient and her sister that this may require more than one debridement in the operating room the understand and wish to proceed. time 30 minutes, greater than 50% of time counseling and planning Time with Patient: Greater than 30
[2019-04-08] MEDS ORDERED: ONDANSETRON 4 MG/2 ML VIAL IVP ONE (13:59)
[2019-04-08] MEDS ORDERED: DEXAMETHASONE SOD PHOSPHATE 10 MG/ML 1 ML VIAL IV ONE (14:01)
[2019-04-08] MEDS ORDERED: LIDOCAINE 1% INJ 10MG/ML (20 ML MDV) ONE (14:33)
[2019-04-08] MEDS ORDERED: ROCURONIUM BROMIDE 10 MG/ML 5 ML VIAL IV ONE (14:33)
[2019-04-08] MEDS ORDERED: fentaNYL (PF) 50 MCG/ML 2 ML AMP ONE (14:33)
[2019-04-08] MEDS ORDERED: NEOSTIGMINE 1 MG/ML 10 ML VIAL ONE (14:33)
[2019-04-08] MEDS ORDERED: GLYCOPYRROLATE 0.2 MG/ML 2 ML VIAL ONE (14:33)
[2019-04-08] MEDS ORDERED: HEPARIN SODIUM,PORCINE 5,000 UNIT/ML 1 ML VIAL ONE (14:33)
[2019-04-08] MEDS ORDERED: MIDAZOLAM 2 MG/2 ML VIAL ONE (14:33)
[2019-04-08] MEDS ORDERED: PHENYLEPHRINE-0.9% NACL SYG 1 MG/10 ML SYRINGE ONE (14:33)
[2019-04-08] MEDS ORDERED: PROPOFOL 10 MG/ML 20 ML VIAL IV ONE (14:33)
[2019-04-08] MEDS ORDERED: HEPARIN SODIUM,PORCINE 5,000 UNIT/ML 1 ML VIAL SQ ONE (15:15)
[2019-04-08] MEDS ORDERED: LACTATED RINGERS 1,000 ML IV ONE (15:29)
--- NOTE | 2019-04-08 15:43 | P.OP ---
Date of Procedure: 04/08/19 Preoperative Diagnosis: abscess right breast Postoperative Diagnosis: same Procedure(s) Performed: incision and drainage of abscess right breast Anesthesia: ENRIQUE Surgeon: Nicolette Haines Estimated Blood Loss (ml): 3 IV fluids (ml): 300 Pathology: none sent Condition: stable Disposition: floor Indications for Procedure: increased swelling related to breast, ultrasound showing fluid collection near scar Operative Findings: serosanguineou fluid right breast approximately 30 mL Description of Procedure: the patient is a 68-year-old white female who presented to the emergency department with swelling, pain, erythema in the right breast near prior lumpectomy site. She is on xeralto, irritable there was suspicion that she developed a hematoma in this area and it had become infected. The patient had some spontaneous drainage however there remained an area fluid collection and tenderness. An ultrasound performed yesterday versus today showed decrease in the size of the collection at the collection remained persistent. The patient was given the option of antibiotic therapy and watchful waiting versus I&D in the operating room and she wished for I&D to be performed. Preoperative cleara nce from cardiology was obtained. Risks and benefits the procedure were discussed with the patient and she was brought to the operating room. Following induction of general anesthesia the right breast was prepped and draped in a sterile fashion. In the medial aspect of the incision a small incision approximately 2-1/2-3 cm was formed. Through this incision approximately 30 mL of serosanguineous fluid nonpurulent was drained. Blunt dissection was able to be performed. The entire cavity breaking down any loculations. After this had been performed. Was well irrigated using 1 L of saline. Following this after we were assured that hemostasis was attained the wound was packed using 2 inch Nu Gauze. The suture was placed at the edge of the area of debridement to prevent the wound from opening further. Patient tolerated the procedure in stable condition. Cultures were obtained.
[2019-04-08] MEDS: HEPARIN SODIUM,PORCINE 5,000 UNIT/ML 1 ML VIAL SQ SCH ×2 (17:18→23:43)
--- NOTE | 2019-04-08 18:04 | P.PN ---
Subjective Patient is postop for debridement of right breast. Patient has adequate pain management Objective - Vital Signs Vital signs: Vital Signs Temp 98.1 F 04/08/19 17:00 Pulse 87 04/08/19 17:30 Resp 18 04/08/19 17:00 BP 121/55 04/08/19 17:30 Pulse Ox 96 04/08/19 17:00 Intake & Output 04/07/19 04/08/19 04/08/19 18:59 06:59 18:59 Intake Total 1430 1000 Output Total 3 Balance 1430 997 Weight 124.738 kg 124.738 kg Intake: IV 950 1000 Sodium Chloride 0.9% 1, 450 000 ml @ 75 mls/hr IV . [id number] [facility] Rx#:[id number] Vancomycin 2,000 mg In 500 Sodium Chloride 0.9% 500 ml 500 ml @ 167 mls/hr IVPB ONCE STA Rx#: [id number] Oral 480 Output: Estimated Blood Loss 3 Other: Voiding Method Toilet Toilet # Voids 2 - Constitutional General appearance: Present: mild distress - EENT Eyes: Present: PERRLA Ears: bilateral: normal - Neck Neck: Present: normal ROM - Respiratory Respiratory: bilateral: CTA - Cardiovascular Rhythm: regular - Gastrointestinal General gastrointestinal: Present: soft - Integumentary Integumentary Comment(s): Right breast Integumentary: Present: cellulitis - Neurologic Neurologic: Present: CNII-XII intact - Musculoskeletal Musculoskeletal: Present: gait normal - Psychiatric Psychiatric: Present: A&O x's 3, appropriate affect, intact judgment & insight - Labs CBC & Chem 7: 04/08/19 12:08 04/08/19 07:59 Labs: Microbiology - Last 24 Hours (Table) 04/07/19 12:35 Blood Culture - Preliminary Blood No Growth after 24 hours 04/07/19 10:40 Gram Stain - Preliminary Breast - Right Wound Culture - Preliminary Presumptive Staph aureus Assessment and Plan Plan: Assessment Postoperative right breast abscess Postoperative debridement of right breast History of paroxysmal atrial fib flutter Cardiomyopathy GERD Hyperlipidemia Osteoarthritis Hypothyroidism Plan Hopeful discharge after clearance from surgeon
--- NOTE | 2019-04-08 23:02 | P.CONS ---
History of Present Illness - Reason for Consult Consult date: 04/08/19 right breast abscess Requesting physician: Nicolette Haines - Chief Complaint right breast pain and swelling x week - History of Present Illness Patient is a 68-year-old female with a past medical history significant for lumpectomy right breast December 2018 apparently the patient seemed to have some problem with the pain to the right breast area since then however over the last 3 weeks the area of right breast has become more painful patient describes the pain to be throbbing at times dull aching almost 7- 8 out of 10 and no radiation and there was some drainage noticed from the right breast area with the symptom had the patient presented to [facility] ER yesterday the patient did have an ultrasound of the breast completed we did shows an area 5 into 5 cm complex fluid collection patient has been empirically started on vancomycin she was taken to the OR today and is status post surgical drainage of this abscess infection and subsequently consulted for further management of antibiotic therapy. Review of Systems Positive point has been mentioned in HPI rest of the systems are negative Past Medical History Past Medical History: Atrial Fibrillation, Atrial Flutter, Cancer, Chest Pain / Angina, GERD/Reflux, Hyperlipidemia, Hypertension, Osteoarthritis (OA), Thyroid Disorder Additional Past Medical History / Comment(s): R breast cancer with lumpectomy 09/2018, cardiomyopathy, pleurisy, thyroid surgery d/t goiter-hypothyroid, arthritis in multiple joints, chronic low back pain. History of Any Multi-Drug Resistant Organisms: None Reported Past Surgical History: Back Surgery, Bladder Surgery, Breast Surgery, Cardiac Ablation, Cholecystectomy, EPS, Heart Catheterization, Hernia Repair, Hysterectomy, Joint Replacement, Orthopedic Surgery Additional Past Surgical History / Comment(s): R breast core bx/needle loc, R breast lumpectomy/axillary node dissection, EPS/ablation of aflutter, CHATO, cardioversion, low back surgeries with plate/screws, total R knee arthroplasties x 3, R foot multiple surgeries for spur/neuromas, L foot cystectomy, R elbow injury with surgery, R wrist ganglion cystectomy, partial right sided thyroidectomy, 4 abdominal hernia repairs, bladder suspension, colonoscopy Past Anesthesia/Blood Transfusion Reactions: No Reported Reaction Additional Past Anesthesia/Blood Transfusion Reaction / Comm: 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 Mother Family Medical History: Cancer, Deep Vein Thrombosis (DVT) Additional Family Medical History / Comment(s): Skin and breast cancer. Medications and Allergies Home Medications Medication Instructions Recorded Confirmed Type Atenolol 100 mg PO DAILY 02/19/14 04/07/19 History Levothyroxine Sodium [Synthroid] 88 mcg PO DAILY 02/19/14 04/07/19 History Simvastatin [Zocor] 20 mg PO DAILY 02/19/14 04/07/19 History amLODIPine/VALSARTAN [Exforge 1 tab PO DAILY 02/19/14 04/07/19 History 5-320 MG] Citalopram Hydrobromide 40 mg PO DAILY 10/07/18 04/07/19 History [Citalopram HBr] HYDROcodone/APAP 10-325MG [[place] 1 tab PO Q4H PRN 12/23/18 04/07/19 History 10-325] Rivaroxaban [Xarelto] 20 mg PO HS 12/25/18 04/07/19 History Anastrozole [Arimidex] 1 mg PO DAILY 04/07/19 04/07/19 History Allergies Allergy/AdvReac Type Severity Reaction Status Date / Time cephalexin monohydrate Allergy Rash/Hives Verified 04/08/19 13:47 [From Keflex] Iodinated Contrast Media Allergy Rash/Hives Verified 04/08/19 13:47 [Iodinated Contrast Media - IV Dye] Sulfa (Sulfonamide Allergy Rash/Hives Verified 04/08/19 13:47 Antibiotics) adhesive tape Allergy Rash/Hives Uncoded 04/08/19 13:47 Physical Exam Vitals: Vital Signs Temp Pulse Pulse Resp BP Pulse Ox 04/08/19 19:20 98.8 F 68 18 132/64 96 04/08/19 18:21 91 120/63 04/08/19 18:15 78 118/63 04/08/19 17:30 87 121/55 04/08/19 17:15 86 118/61 04/08/19 17:00 98.1 F 83 18 119/61 96 04/08/19 16:31 77 16 117/56 96 04/08/19 16:15 83 16 121/60 96 04/08/19 16:00 93 16 128/74 96 04/08/19 15:50 97 F L 93 16 126/60 96 04/08/19 13:43 96.8 F L 78 16 111/61 98 04/08/19 13:42 78 16 111/61 98 04/08/19 08:00 16 04/08/19 07:00 98.1 F 86 16 108/69 94 L 04/07/19 23:00 100.1 F H 75 14 127/74 93 L Intake and Output 04/08/19 04/08/19 04/08/19 06:59 14:59 22:59 Intake Total 875 300 700 Output Total 3 Balance 875 300 697 Intake: IV 875 300 700 Sodium Chloride 0.9% 1, 375 000 ml @ 75 mls/hr IV . [id number] [facility] Rx#:[id number] Vancomycin 2,000 mg In 500 Sodium Chloride 0.9% 500 ml 500 ml @ 167 mls/hr IVPB [facility] Rx#: [id number] Output: Estimated Blood Loss 3 Other: Voiding Method Toilet Toilet # Voids 2 Weight 124.738 kg 124.738 kg GENERAL DESCRIPTION: Elderly female lying in bed, no distress. No tachypnea or accessory muscle of respiration use. HEENT: Shows Pallor , no scleral icterus. Oral mucous membrane is dry. NECK: Trachea central, no thyromegaly. LUNGS: Unlabored breathing. Clear to auscultation anteriorly. No wheeze or crackle. HEART: S1, S2, regular rate and rhythm. ABDOMEN: Soft, no tenderness , guarding or rigidity EXTREMITIES: No edema of feet. SKIN: No rash, no masses palpable. Right breast area was not examined as the patient just came back from the OR with the OR dressing intact NEUROLOGICAL: The patient is awake, alert, oriented x3, mood and affect normal. Results CBC & Chem 7: 04/08/19 12:08 04/08/19 07:59 Labs: Microbiology - Last 24 Hours (Table) 04/08/19 15:30 Wound Culture - Preliminary Breast - Right 04/08/19 15:30 Anaerobic Culture - Preliminary Breast - Right 04/07/19 12:35 Blood Culture - Preliminary Blood No Growth after 24 hours 04/07/19 10:40 Gram Stain - Preliminary Breast - Right Wound Culture - Preliminary Presumptive Staph aureus Assessment and Plan Assessment: patient with right breast abscess in this patient who is status post surgical drainage of the same this afternoon by the surgeon with a suitable cough for about 3 weeks the likely organism will call with gram-positive skin jhonny such as strep and staph. 2-patient with cephalexin allergy to remember the number of antibiotics safe to use (1) Abscess of right breast Current Visit: Yes Status: Acute Code(s): N61.1 - ABSCESS OF THE BREAST AND NIPPLE SNOMED Code(s): 56319595 Plan: 1-vancomycin pharmacy to dose her with a target trough of 15 while watching her kidney function and Vanco trough closely. 2-gentle IV fluid We will follow on clinical condition and cultures to further adjust medication if needed Thank you for this consultation we will follow the patient along with you Time with Patient: Greater than 30
[2019-04-09] MEDS: MORPHINE SULFATE 4 MG/ML SYRINGE IV PRN ×5 (05:02→23:26)
[2019-04-09] MEDS: LEVOTHYROXINE 88 MCG TAB PO SCH (05:52)
[2019-04-09 07:53] LABS: African American GFR (CKD) >90 (>60 ml/min/1.73 sqM); Non-African American GFR(CKD) >90 (>60 ml/min/1.73 sqM)
[2019-04-09] MEDS: amLODIPine 5 MG TAB PO SCH (08:40)
[2019-04-09] MEDS: CITALOPRAM HYDROBROMIDE 20 MG TAB PO SCH (08:40)
[2019-04-09] MEDS: ATENOLOL 50 MG TAB PO SCH (08:40)
[2019-04-09] MEDS: ANASTROZOLE 1 MG TAB PO SCH (08:40)
[2019-04-09] MEDS: VALSARTAN 160 MG TAB PO SCH (08:41)
[2019-04-09] MEDS: ATORVASTATIN 10 MG TAB PO SCH (08:41)
[2019-04-09] MEDS: HEPARIN SODIUM,PORCINE 5,000 UNIT/ML 1 ML VIAL SQ SCH ×3 (08:41→23:28)
[2019-04-09] MEDS: SODIUM CHLORIDE 0.9% 1,000 ML IV SCH ×2 (10:47→23:29)
[2019-04-09] MEDS: HYDROcodone/APAP 5-325MG 1 EACH TAB PO PRN ×3 (11:14→21:27)
[2019-04-09] MEDS: VANCOMYCIN 2,000 MG in SODIUM CHLORIDE 0.9% 500 ML 500 ML IVPB SCH (11:14)
--- NOTE | 2019-04-09 12:55 | P.PN ---
Subjective Progress Note Date: 04/09/19 Principal diagnosis: Right breast swelling/abscess The patient is a 68-year-old white female status post right breast lumpectomy approximately December 2018. She several weeks ago developed swelling in the area with tenderness and drainage from the area of the incision. An ultrasound was performed which revealed a fluid collection near the area of the scar with some extension into the deeper breast tissue. The patient had a repeat ultrasound showing a fluid collection decreased in size but continued to have pain at the site and continues to have erythema and edema near the dependent portion of the medial aspect of the breast. The patient was therefore taken to the operating room for incision and drainage of the fluid collection in the right breast. She is postop day #1. Patient states she continues to have discomfort in the breast. She is afebrile at this time. She takes Lewis at home for back pain and here has been taking Lewis as well as morphine. Objective - Vital Signs Vital signs: Vital Signs Temp 98.1 F 04/09/19 11:49 Pulse 80 04/09/19 11:49 Resp 18 04/09/19 11:49 BP 144/72 04/09/19 11:49 Pulse Ox 96 04/09/19 11:49 Intake & Output 04/08/19 04/09/19 04/09/19 18:59 06:59 18:59 Intake Total 1000 1000 Output Total 3 Balance 997 1000 Weight 124.738 kg Intake: IV 1000 Intake, IV Titration 1000 Amount Vancomycin 2,000 mg In 1000 Sodium Chloride 0.9% 500 ml 500 ml @ 167 mls/hr IVPB Q12H [facility] Rx#: [id number] Output: Estimated Blood Loss 3 Other: Voiding Method Toilet Toilet # Voids 2 - Constitutional General appearance: Present: obese - EENT Eyes: Present: EOMI ENT: Present: hearing grossly normal - Respiratory Respiratory: bilateral: CTA - Cardiovascular Heart sounds: normal: S1, S2 - Integumentary Integumentary Comment(s): Continued edema of the lower inner portion of the left breast, decreased erythema - Psychiatric Psychiatric: Present: A&O x's 3, appropriate affect, intact judgment & insight - Additional findings Additional findings: Right breast: Packing is removed, patient with decreased erythema of this area, no active drainage - Labs CBC & Chem 7: 04/08/19 12:08 04/09/19 06:50 Labs: Microbiology - Last 24 Hours (Table) 04/07/19 10:40 Gram Stain - Final Breast - Right Wound Culture - Final Staphylococcus aureus 04/08/19 15:30 Gram Stain - Preliminary Breast - Right Wound Culture - Preliminary 04/08/19 15:30 Anaerobic Culture - Preliminary Breast - Right 04/07/19 12:35 Blood Culture - Preliminary Blood No Growth after 24 hours Assessment and Plan Assessment: Impression: 1. Recent swelling and drainage of right breast near the area of prior lumpectomy/postop day #1 I&D of the area 2. Leukocytosis improve 3. Continued pain in the right breast 4. Family history of breast cancer 5. Osteoarthritis 6. Status post multiple back surgeries 7. Hypothyroid 8. Hypertension. 9. High cholesterol 10. Atrial fibrillation on blood thinner/stopped at this time Plan: 1. Patient started on vancomycin, ID consult appreciated we'll continue the ventricle at this time 2. Cardiac clearance obtained for I&D of abscess, patient presently not in A. fib restarted Xarelto as per cardiology 3. Packing changed daily 4. Probable discharge home with home health care in the near future Time with Patient: Less than 30
--- NOTE | 2019-04-09 13:38 | P.PN ---
Subjective Conferred with Dr. Stanley Zamora regarding patient. Surgeon requested Xarelto be discontinued conferred with cardiology patient can be discontinued for 2 weeks. Packing was removed from the breast Objective - Vital Signs Vital signs: Vital Signs Temp 98.1 F 04/09/19 11:49 Pulse 80 04/09/19 11:49 Resp 18 04/09/19 11:49 BP 144/72 04/09/19 11:49 Pulse Ox 96 04/09/19 11:49 Intake & Output 04/08/19 04/09/19 04/09/19 18:59 06:59 18:59 Intake Total 1000 1000 Output Total 3 Balance 997 1000 Weight 124.738 kg Intake: IV 1000 Intake, IV Titration 1000 Amount Vancomycin 2,000 mg In 1000 Sodium Chloride 0.9% 500 ml 500 ml @ 167 mls/hr IVPB Q12H [facility] Rx#: [id number] Output: Estimated Blood Loss 3 Other: Voiding Method Toilet Toilet # Voids 2 - Constitutional General appearance: Present: mild distress - EENT Eyes: Present: PERRLA Ears: bilateral: normal - Neck Neck: Present: normal ROM - Respiratory Respiratory: bilateral: CTA - Cardiovascular Rhythm: regular - Gastrointestinal General gastrointestinal: Present: soft - Integumentary Integumentary Comment(s): (Draining wound to right breast - Neurologic Neurologic: Present: CNII-XII intact - Musculoskeletal Musculoskeletal: Present: gait normal - Psychiatric Psychiatric: Present: A&O x's 3, appropriate affect, intact judgment & insight - Labs CBC & Chem 7: 04/08/19 12:08 04/09/19 06:50 Labs: Microbiology - Last 24 Hours (Table) 04/07/19 10:40 Gram Stain - Final Breast - Right Wound Culture - Final Staphylococcus aureus 04/08/19 15:30 Gram Stain - Preliminary Breast - Right Wound Culture - Preliminary 04/08/19 15:30 Anaerobic Culture - Preliminary Breast - Right 04/07/19 12:35 Blood Culture - Preliminary Blood No Growth after 24 hours Assessment and Plan Plan: Assessment Right breast abscess post biopsy breast cancer Cardiomyopathy Paroxysmal A. fib/flutter GERD osteoarthritis Hypothyroidism Plan Need recommendations from infectious disease regarding home medication Hopeful discharge tomorrow
--- NOTE | 2019-04-09 14:32 | P.PN ---
Subjective HISTORY OF PRESENTING ILLNESS This is a pleasant 68-year-old female past medical history significant for atrial fibrillation/flutter s/p ablation, hypertension, dyslipidemia, breast cancer status post lumpectomy and right tate-diaphragm paralysis. She is seen and examined sitting up in bed in no acute distress. She underwent incision and drainage of the right rest abscess yesterday with Dr. Haines. She has converted to sinus mechanism spontaneously. She denies chest pain, shortness of breath, dizziness or palpitations. Blood pressure 144/72 heart rate 88 afebrile maintaining oxygen saturation on room air. Laboratory data reviewed, creatinine 0.6. PHYSICAL EXAMINATION CONSTITUTIONAL: No apparent distress. HEENT: Head is normocephalic. Pupils are equal, round. Sclerae anicteric. Mucous membranes of the mouth are moist. No JVD. No carotid bruit. CHEST EXAMINATION: Lungs are clear to auscultation. No chest wall tenderness is noted on palpation or with deep breathing. HEART EXAMINATION: Regular rate and rhythm. S1, S2 heard. Systolic ejection murmur at the left sternal border, no gallops or rub. EXTREMITIES: 2+ peripheral pulses, no lower extremity edema and no calf tenderness. ASSESSMENT Right breast abscess status post lumpectomy Breast cancer Paroxysmal atrial fibrillation/flutter on long-term anticoagulation status post ablation in [address] Haines would like to continue to hold Xarelto at this time secondary to significant amount of packing required as she is concerned about bleeding with dressing changes. This is reasonable. Recommended to the patient to follow up in our office in 2 weeks and anti-coagulation can be again discussed and resumed. Lengthy discussion had with the patient regarding compliance with follow up appointments in the office. She is agreeable to follow up. We will continue to follow as needed, please call with further questions or concerns. Nurse Practitioner note has been reviewed, I agree with a documented findings and plan of care. Patient was seen and examined. Objective - Vital Signs Vital signs: Vital Signs Temp 98.1 F 04/09/19 11:49 Pulse 80 04/09/19 11:49 Resp 18 04/09/19 11:49 BP 144/72 04/09/19 11:49 Pulse Ox 96 04/09/19 11:49 Intake & Output 04/08/19 04/09/19 04/09/19 18:59 06:59 18:59 Intake Total 1000 1000 Output Total 3 Balance 997 1000 Weight 124.738 kg Intake: IV 1000 Intake, IV Titration 1000 Amount Vancomycin 2,000 mg In 1000 Sodium Chloride 0.9% 500 ml 500 ml @ 167 mls/hr IVPB Q12H [facility] Rx#: [id number] Output: Estimated Blood Loss 3 Other: Voiding Method Toilet Toilet # Voids 2 - Labs CBC & Chem 7: 04/08/19 12:08 04/09/19 06:50 Labs: Microbiology - Last 24 Hours (Table) 04/07/19 10:40 Gram Stain - Final Breast - Right Wound Culture - Final Staphylococcus aureus 04/08/19 15:30 Gram Stain - Preliminary Breast - Right Wound Culture - Preliminary 04/08/19 15:30 Anaerobic Culture - Preliminary Breast - Right 04/07/19 12:35 Blood Culture - Preliminary Blood No Growth after 24 hours
--- NOTE | 2019-04-09 21:09 | PN ---
PROGRESS NOTE DATE OF SERVICE: 04/09/2019 REASON FOR FOLLOWUP: Right breast abscess MSSA. INTERVAL HISTORY: The patient is currently afebrile. The patient is breathing comfortably. Right breast pain and swelling have improved. Denies having any chest pain, shortness of breath or cough. No nausea, vomiting or any diarrhea. PHYSICAL EXAMINATION: Blood pressure is 144/72 with a pulse of 80, temperature 98.1. She is 96% on room air. General description is an elderly female up in the bed in no distress. Examination of right breast did reveal a significant deep wound. No significant surrounding induration, swelling, redness or foul-smelling drainage. LUNGS: Unlabored breathing. Clear to auscultation anteriorly. HEART: S1, S2. Regular rate and rhythm. ABDOMEN: Soft. No tenderness. LABS: Hemoglobin is 12. White count normalized to 9.9 with a BUN of 20 creatinine 0.60. Wound culture with MSSA. Blood culture has been negative. DIAGNOSTIC IMPRESSION AND PLAN: Patient with emesis and right breast abscess, status post drainage. Blood culture has been negative. Unfortunately, patient is ALLERGIC both to CEPHALEXIN AND SULFA. Hence the patient is on vancomycin in view of the infection. She will benefit from IV antibiotic in the outpatient setting, which will be transitioned to daptomycin 4 mg/kg daily, for which a midline will be placed. Duration of antibiotics 2 weeks and will monitor her clinical course closely. VIOLA / ELIZABETHN: [id number] / MTDD
[2019-04-09] MEDS ORDERED: VANCOMYCIN TROUGH DUE 1 EACH MISC MISCELLANE ONE (23:00)
[2019-04-10] MEDS: VANCOMYCIN 2,000 MG in SODIUM CHLORIDE 0.9% 500 ML 500 ML IVPB SCH ×2 (00:01→11:35)
[2019-04-10] MEDS: SODIUM CHLORIDE 0.9% 1,000 ML IV SCH (00:04)
[2019-04-10] MEDS: HYDROcodone/APAP 5-325MG 1 EACH TAB PO PRN ×5 (01:07→17:37)
[2019-04-10] MEDS: MORPHINE SULFATE 4 MG/ML SYRINGE IV PRN (03:45)
[2019-04-10] MEDS: LEVOTHYROXINE 88 MCG TAB PO SCH (05:31)
[2019-04-10] MEDS: ANASTROZOLE 1 MG TAB PO SCH (09:05)
[2019-04-10] MEDS: ATORVASTATIN 10 MG TAB PO SCH (09:05)
[2019-04-10] MEDS: VALSARTAN 160 MG TAB PO SCH (09:05)
[2019-04-10] MEDS: HEPARIN SODIUM,PORCINE 5,000 UNIT/ML 1 ML VIAL SQ SCH (09:05)
[2019-04-10] MEDS: amLODIPine 5 MG TAB PO SCH (09:05)
[2019-04-10] MEDS: CITALOPRAM HYDROBROMIDE 20 MG TAB PO SCH (09:05)
[2019-04-10] MEDS: ATENOLOL 50 MG TAB PO SCH (09:05)
[2019-04-10 10:10] LABS: African American GFR (CKD) >90 (>60 ml/min/1.73 sqM); Non-African American GFR(CKD) >90 (>60 ml/min/1.73 sqM)
[2019-04-10 11:52] VITALS: BP 132/71; PULSE 61; RESP 18; TEMP 97.9
--- NOTE | 2019-04-10 12:13 | P.PN ---
Subjective Progress Note Date: 04/10/19 Principal diagnosis: Right breast swelling/abscess The patient is a 68-year-old white female status post right breast lumpectomy approximately December 2018. She several weeks ago developed swelling in the area with tenderness and drainage from the area of the incision. An ultrasound was performed which revealed a fluid collection near the area of the scar with some extension into the deeper breast tissue. The patient had a repeat ultrasound showing a fluid collection decreased in size but continued to have pain at the site and continues to have erythema and edema near the dependent portion of the medial aspect of the breast. The patient was therefore taken to the operating room for incision and drainage of the fluid collection in the right breast. She is postop day #2. Patient states she continues to have discomfort in the breast. She is afebrile at this time. She takes [place] at home for back pain and here has been taking [place] as well as morphine. Patient recommended as per infectious disease to have home IV antibiotic therapy. She states she cannot change the dressing herself and will require home care for wound care. Additionally cardiology noted we may hold Xarelto at this time. Objective - Vital Signs Vital signs: Vital Signs Temp 97.9 F 04/10/19 11:51 Pulse 61 04/10/19 11:51 Resp 18 04/10/19 11:51 BP 132/71 04/10/19 11:51 Pulse Ox 96 04/10/19 11:51 Intake & Output 04/09/19 04/10/19 04/10/19 18:59 06:59 18:59 Intake Total 1100 1180 Balance 1100 1180 Intake: IV 600 Sodium Chloride 0.9% 1, 600 000 ml @ 75 mls/hr IV . [id number] [facility] Rx#:[id number] Intake, IV Titration 500 Amount Vancomycin 2,000 mg In 500 Sodium Chloride 0.9% 500 ml 500 ml @ 167 mls/hr IVPB Q12H [facility] Rx#: [id number] Oral 1180 Other: Voiding Method Toilet Toilet Toilet # Voids 2 - Exam BMI 44.4 - Constitutional General appearance: Present: obese - EENT Eyes: Present: EOMI ENT: Present: hearing grossly normal - Respiratory Respiratory: bilateral: CTA - Cardiovascular Heart sounds: normal: S1, S2 - Integumentary Integumentary Comment(s): Decreased edema inferior medial dependent portion of the right breast Incision is clean and dry packing in place - Psychiatric Psychiatric: Present: A&O x's 3, appropriate affect, intact judgment & insight - Additional findings Additional findings: Right breast incision clean and dry Decreased dependent edema Packing in place - Labs CBC & Chem 7: 04/08/19 12:08 04/10/19 07:28 Labs: Microbiology - Last 24 Hours (Table) 04/08/19 15:30 Gram Stain - Preliminary Breast - Right Wound Culture - Preliminary Presumptive Staph aureus 04/07/19 12:35 Blood Culture - Preliminary Blood No Growth after 48 hours 04/07/19 10:40 Gram Stain - Final Breast - Right Wound Culture - Final Staphylococcus aureus Assessment and Plan Assessment: Impression: 1. Recent swelling and drainage of right breast near the area of prior lumpectomy/postop day #2 I&D of the area 2. Leukocytosis improve 3. Continued pain in the right breast 4. Family history of breast cancer 5. Osteoarthritis 6. Status post multiple back surgeries 7. Hypothyroid 8. Hypertension. 9. High cholesterol 10. Atrial fibrillation on blood thinner/stopped at this time 11. Cardiology consult appreciated we may hold sotalol toe 12. IV antibiotics as per infectious disease and home wound care Plan: 1. Patient started on vancomycin, ID consult appreciated we'll continue the vanco at this time 2. Packing changed daily 3. Probable discharge home with home health care in the near future
--- NOTE | 2019-04-10 14:08 | PN ---
PROGRESS NOTE REASON FOR FOLLOWUP: Right breast abscess, MSSA. INTERVAL HISTORY: The patient is currently afebrile. Patient is breathing comfortably. The patient denies having any chest pain, shortness of breath or cough. No worsening pain of the right breast. PHYSICAL EXAMINATION: Blood pressure is 132/71 with a pulse of 51, temperature 97.9, she is 96% on room air. General description is an elderly female, lying in bed in no distress. RESPIRATORY SYSTEM: Unlabored breathing, clear to auscultation anteriorly. HEART: S1, S2. Regular rate and rhythm. ABDOMEN: Soft, no tenderness. EXTREMITIES: No edema of the feet. LABS: Creatinine 0.57. Wound culture with MSSA. DIAGNOSTIC IMPRESSION AND PLAN: Patient with right breast abscess, status post drainage, culture with MSSA. Unfortunately, patient is allergies to Keflex. Patient is currently being maintained on vancomycin with a plan for at least 2 week course of IV vancomycin, pharmacy to dose or daptomycin at 4 mg/kg coming to 5 mg daily for the same duration as the patient is unable to go to the infusion clinic twice a day. Local wound care with dry Aquacel packing of the wound and will monitor clinical course closely. Description will be provided with the wrapper caser working on discharge. MMODL / IJN: [id number] /
--- NOTE | 2019-04-10 16:27 | P.DS ---
Providers Date of admission: 04/07/19 12:12 Expected date of discharge: 04/10/19 Attending physician: Curtis Angel Consults: 04/07/19 12:12 Consult Physician Stat Consulting Provider: Curtis Angel Consult Reason/Comments: Breast abscess Do you want consulting provider notified?: Yes Consult Physician Stat Consulting Provider: Tommie Cates Consult Reason/Comments: Breast abscess Do you want consulting provider notified?: Yes 04/08/19 10:59 Consult Physician Stat Consulting Provider: Artur Ren Consult Reason/Comments: surgical clearance Do you want consulting provider notified?: Yes 04/08/19 15:47 Consult Physician Routine Consulting Provider: Codey Cook Consult Reason/Comments: breast abscess Do you want consulting provider notified?: Yes Primary care physician: Curtis Angel Hospital Course: 68 female year old admitted for rt breast abscess post breast biopsy. Kalpesh marsh was seen by surgery infectious disease . Had cardiolgy clearance for procedure. Was evaluated by oncology. Had debridement of breast Assessment breast abscess post biopsy breast cancer cardiomyopathy GERD hyperlipemia Osteoarthritis Afib flutter paroxsymal Plan iv therapy at home Follow up DR Quincy Angel Noah Plan Patient Condition at Discharge: Stable Plan - Discharge Summary Discharge Rx Participant: No New Discharge Prescriptions: New DAPTOmycin [Cubicin] 500 mg IV DAILY #10 bag Atorvastatin [Lipitor] 10 mg PO DAILY #30 tab Continue amLODIPine/VALSARTAN [Exforge 5-320 MG] 1 tab PO DAILY Levothyroxine Sodium [Synthroid] 88 mcg PO DAILY Atenolol 100 mg PO DAILY Citalopram Hydrobromide [Citalopram HBr] 40 mg PO DAILY HYDROcodone/APAP 10-325MG [[place] 10-325] 1 tab PO Q4H PRN PRN Reason: Pain Anastrozole [Arimidex] 1 mg PO DAILY Discontinued Simvastatin [Zocor] 20 mg PO DAILY Rivaroxaban [Xarelto] 20 mg PO HS Discharge Medication List Atenolol 100 mg PO DAILY 02/19/14 [History] Levothyroxine Sodium [Synthroid] 88 mcg PO DAILY 02/19/14 [History] amLODIPine/VALSARTAN [Exforge 5-320 MG] 1 tab PO DAILY 02/19/14 [History] Citalopram Hydrobromide [Citalopram HBr] 40 mg PO DAILY 10/07/18 [History] HYDROcodone/APAP 10-325MG [[place] 10-325] 1 tab PO Q4H PRN 12/23/18 [History] Anastrozole [Arimidex] 1 mg PO DAILY 04/07/19 [History] Atorvastatin [Lipitor] 10 mg PO DAILY #30 tab 04/10/19 [Rx] DAPTOmycin [Cubicin] 500 mg IV DAILY #10 bag 04/10/19 [Rx] Follow up Appointment(s)/Referral(s): Curtis Angel MD [Primary Care Provider] - 1-2 days Nikole Newberry MD [STAFF PHYSICIAN] - 2 Weeks Tommie Cates MD [STAFF PHYSICIAN] - 06/02/19 11:15 am Patient Instructions/Handouts: Abscess (ED) Activity/Diet/Wound Care/Special Instructions: pt to come to the hospital tomorrow at 9am tomorrow for her infusion. pt to go to [facility] procedures. Aquacel silver packing of the wound daily follow up with Dr cook 1 week , in the wound care center , call [phone] to make an appointment
[2019-04-10] MEDS ORDERED: DAPTOmycin 500 MG in SODIUM CHLORIDE 0.9% 50 ML IVPB SCH (17:00)
--- NOTE | 2019-04-14 10:56 | CDI ---
Documentation Clarification Form Date: 04/14/19 From: Juana Echeverria Phone: If you have a question about this query, please contact Lani Jeff Office Clinician at [phone] between 8am and 5pm. Admit Date: 04/07/19 Discharge Date: 04/10/19 Patient Name: Gabrielle Gee Visit Number: [id number] ATTENTION: The Clinical Documentation Specialists (CDI) and [facility] Coding Staff appreciate your assistance in clarifying documentation. Please respond to the clarification below the line at the bottom and electronically sign. The CDI & [facility] Coding staff will review the response and follow-up if needed. Please note: Queries are made part of the Legal Health Record. If you have any questions, please contact the author of this message via ITS. Dear Dr. Haines Right breast abscess postoperatively is documented in the H&P. Ashley Barlow documented postoperative right breast abscess in the 04/08 progress note. Breast abscess post biopsy is documented in the discharge summary. Patients Admitting Diagnosis: Right breast abscess Post-Operative Diagnosis: Right breast cancer Procedure performed: Lumpectomy and sentinel node biopsy History/Risk Factors: Status post right breast lumpectomy and lymph node biopsy Clinical Indicators: Swelling and drainage from the right breast Treatment: I&D, IV Unasyn, IV Daptomycin, IV Vancomycin Consults: Abscess of the right breast In order to accurately reflect this patients severity of illness, please clarify if the post-operative diagnosis is: An expected post-procedural or post-surgical condition An unexpected post-procedural or post-surgical condition related to surgical care (a complication of care) An unexpected post-procedural or post-surgical condition, related to the patients underlying medical comorbidities Other, please specify ____ Unable to determine An unexpected post-procedural or post-surgical condition, related to the patients underlying medical comorbidities The patient was on anticoagulation post procedure and developed fluid accumulation at the biopsy site. ELIO
== END 2019-04-10 18:41 | disposition home or self-care (01) ==
LOC: EC 09:31 → INTOOBSV 12:08 → 5NMEDONC 12:08 → UNDOADMIN 12:12 → 5NMEDONC 04-08 14:00 → UNDODISIN 04-10 18:41
PROVIDERS: ADMIT Family Medicine; ATTEND Family Medicine
DX: T81.49XA Infection following a procedure, other surgical site, initial encounter (principal); L76.82 Other postprocedural complications of skin and subcutaneous tissue; N61.1 Abscess of the breast and nipple; B95.61 Methicillin susceptible Staphylococcus aureus infection as the cause of diseases classified elsewhere; Z85.3 Personal history of malignant neoplasm of breast; I42.9 Cardiomyopathy, unspecified; K21.9 Gastro-esophageal reflux disease without esophagitis; E78.5 Hyperlipidemia, unspecified; M19.90 Unspecified osteoarthritis, unspecified site; I48.0 Paroxysmal atrial fibrillation; E89.0 Postprocedural hypothyroidism; F32.9 Major depressive disorder, single episode, unspecified; I10 Essential (primary) hypertension; E78.00 Pure hypercholesterolemia, unspecified; I48.92 Unspecified atrial flutter; G89.29 Other chronic pain; M54.5 Low back pain; I08.1 Rheumatic disorders of both mitral and tricuspid valves; I27.20 Pulmonary hypertension, unspecified; J98.6 Disorders of diaphragm; E66.01 Morbid (severe) obesity due to excess calories; Z68.41 Body mass index [BMI] 40.0-44.9, adult; Z79.899 Other long term (current) drug therapy; Z79.890 Hormone replacement therapy; Z79.01 Long term (current) use of anticoagulants; Z88.1 Allergy status to other antibiotic agents; Z91.041 Radiographic dye allergy status; Z88.2 Allergy status to sulfonamides; Z91.09 Other allergy status, other than to drugs and biological substances; Z96.651 Presence of right artificial knee joint; Z91.89 Other specified personal risk factors, not elsewhere classified; Z79.811 Long term (current) use of aromatase inhibitors; Z98.890 Other specified postprocedural states; Z90.710 Acquired absence of both cervix and uterus; Z90.49 Acquired absence of other specified parts of digestive tract; Z86.39 Personal history of other endocrine, nutritional and metabolic disease; Z79.891 Long term (current) use of opiate analgesic; Z82.49 Family history of ischemic heart disease and other diseases of the circulatory system; Z80.3 Family history of malignant neoplasm of breast; Z80.8 Family history of malignant neoplasm of other organs or systems
CPT/HCPCS: 96376 ×2; 96365; 96366; 96367; 96375; 99285; 93005 ×2; 80053; 82565 ×3; 85025; 85027; 80202; 85610 ×2; 85730 ×2; 87040; 87070 ×2; 87205 ×2; 87075; 87077 ×2; 87186 ×2; 76642 ×2; 19020; G0378 ×4; J2250; J3370 ×4; J2270 ×4; J1644 ×3; J1100; J2710; J2405; J2001; J3010; S0170 ×3; J0878; J0295; J2370; J2704; 96361

== ENCOUNTER → 2019-06-04 | Outpatient (CLI) | payer MEDICARE ==
[2019-06-04 16:20] VITALS: BP 130/83; PULSE 98; RESP 16; TEMP 98.4
--- NOTE | 2019-06-04 16:46 | P.PN ---
Basia Anthony is a 68-year-old white female status post right breast lumpectomy and sentinel node biopsy for a [id number] G2 ER+/AR+ HER 2 - breast cancer performed on 12-24-18. She did not receive any radiation therapy. She is on arimidex. The lumpectomy was done on December 24, 2018. Her last bilateral mammogram was in August 2018. This had revealed a 1.1 cm spiculated mass in the lower inner quadrant of the right breast. No lesions of concern were documented in the left breast. Patient noted increased swelling of the right breast near the lumpectomy site and was seen in the emergency room and April 2019. She is on xerlato for atrial fibrillation. She subsequently went to the operating room and incision and drainage of the area of concern in the right breast was performed 04-07-19. The patient was then treated with IV antibiotics and followed by infectious disease. The patient's cultures grew only staph aureus. The patient is now d oing well with respect to this. The patient states most recently she has noted a lump in the left breast at the 8 o'clock position which is tender, this has been present for several weeks. She reports no trauma to the left breast. She also complains of some nodularity at the incision site in the axilla in the left . Family history: Mother: Skin and breast cancer Hormonal history: Menarche: 9 misc[place], breast fed: yes, age at first : 18 menopause: hysterectomy at 28, no cancer, left ovaries BCP; 3 months hormones: none Surgical history: 1. 3 back surgeries 2. 3 knee replacements 3. Heel surgery 4. Right elbow 5. Right thyroid resection 6. Heart ablation 7. 4 hernia surgeries 8. Cholecystectomy Medical history: 1. Hypothyroid 2. Hypertension 3. High cholesterol 4. Atrial fibrillation Social history: Smoke: Negative Alcohol: Negative Drugs: Negative Review of systems: Constitutional: Negative HEENT: Negative Breasts: As per HPI Cardiovascular: Atrial fibrillation on blood thinner Respiratory: Left diaphragm paralyzed GI: Negative : Kidney stones Menstruation: Postmenopausal Musculoskeletal: Muscle weakness Neurologic: Weakness Psychiatric: Depression Endocrine: Fatigued Hematologic: on xeralto Objective - Vital Signs Vital signs: Intake & Output 06/03/19 06/04/19 06/04/19 18:59 06:59 18:59 Weight 121.563 kg - Exam BMI 43.3 - Constitutional General appearance: Present: obese - EENT Eyes: Present: EOMI ENT: Present: hearing grossly normal - Neck Neck: Present: normal ROM - Respiratory Respiratory: bilateral: CTA - Cardiovascular Rhythm: regular Heart sounds: normal: S1, S2 - Gastrointestinal General gastrointestinal: Present: normal bowel sounds, soft - Integumentary Integumentary: Present: normal turgor - Musculoskeletal Musculoskeletal: Present: gait normal - Psychiatric Psychiatric: Present: A&O x's 3, appropriate affect - Additional findings Additional findings: breast exam: BRA 42DDD ptosis grade 3 inspection: Small incision opening right breast granulating no evidence of active infection at this time, mild skin thickening right breast related to prior surgery Palpation: Right breast: Multi-positional exam fibrocystic changes no evidence of new dominant masses or nodules of concern Right axilla: Scar tissue from sentinel node biopsy no dominant mass or nodule is of concern Left breast: Multi-positional exam fibrocystic changes, at the 8 o'clock position there is an area approximately 1.2 cm in size of increased more discrete nodularity Left axilla: No adenopathy of concern Assessment and Plan Assessment: Impression: 1. Stage IA right breast cancer/status post lumpectomy sentinel node biopsy/patient on aromatase inhibitor/no radiation therapy 2. Incision and drainage of hematoma right breast this is granulating well at this time this was done in April 2019 3. New onset left breast nodularity in the 8 o'clock position Plan: 1. Left breast ultrasound at site of nodularity 2. Depending on results of ultrasound would recommend core biopsy of this site 3. Follow-up after core biopsy Cc: Dr. Curtis Angel encounter 25 minutes, > 50% of time sent in planning and counselling Time with Patient: Less than 30
== END ==
LOC: WWCWWP 15:43
PROVIDERS: ATTEND Surgery
DX: Z53.9 Procedure and treatment not carried out, unspecified reason (principal)

== ENCOUNTER → 2019-06-06 | Outpatient (CLI) | payer MEDICARE ==
--- NOTE | 2019-06-09 09:23 | USB ---
Reason for exam: clinical finding. History: Patient is postmenopausal and has history of breast cancer at age 68. Malignant MG pre op needle loc RT of the right breast, December 24, 2018. Lumpectomy of the right breast, December 24, 2018. Benign US biopsy breast VAD RT of the right breast, November 14, 2018. Malignant US biopsy breast VAD RT of the right breast, October 21, 2018. Malignant US biopsy breast add'l VAD RT of the right breast, October 21, 2018. Benign right mammotome panel of the right breast, February 20, 2012. Excisional biopsy of the right breast, 2001. Benign excisional biopsy of the left breast, July 25, 2000. Took estrogen for 10 years. Indicated problem(s): lump or thickening in the left breast. Physical Findings: Nurse Summary: left breast 9 o'clock patient area of concer, area soft, movable 0.5 x 1cm 9 o'clock (nurse ts). US Breast Limited LT Left limited breast ultrasound including focal area of concern, retroareolar and axilla demonstrates a 6 x 5 x 4mm oval, hypoechoic lesion at 9 o'clock, biopsy recommended, palpable and a 10 x 3 x 6mm oval, hypoechoic lesion at 11 o'clock, recommendation made on rad/path findings. These results were verbally communicated with the patient and result sheet given to the patient on 06/06/19. ASSESSMENT: Suspicious, BI-RAD 4 RECOMMENDATION: Ultrasound core biopsy of the left breast. Called office with mammographic findings and has scheduled an appointment for the patient for 07/10/19 at 1:[address] Haines. Biopsy scheduled for 07/01/19 at 12:20. PRELIMINARY REPORT CALLED AND FAXED TO DR. HAINES ON 06/06/19.
== END | disposition home or self-care (01) ==
LOC: RADUSWWP 10:30
PROVIDERS: ATTEND Surgery
DX: N63.20 Unspecified lump in the left breast, unspecified quadrant (principal)

== ENCOUNTER → 2019-08-15 | Outpatient (CLI) | payer MEDICARE | END | disposition home or self-care (01) | LOC: LABWHC1 15:34 | PROVIDERS: ATTEND Surgery | DX: Z53.9 Procedure and treatment not carried out, unspecified reason (principal) ==

== ENCOUNTER → 2019-09-01 | Outpatient (CLI) | payer MEDICARE | END | disposition home or self-care (01) | LOC: LABWHC1 12:58 | PROVIDERS: ATTEND Surgery | DX: Z11.59 Encounter for screening for other viral diseases (principal) ==

== ENCOUNTER → 2019-09-03 | Day surgery (SDC) | payer MEDICARE ==
[2019-09-03 11:45] VITALS: RESP 16; TEMP 98.7
[2019-09-03 13:46] VITALS: BP 131/86; PULSE 91
--- NOTE | 2019-09-03 14:25 | USB ---
EXAMINATION TYPE: US biopsy breast VAD LT, US biopsy breast add'l VAD LT, MG diagnostic mammo LT wo C AD DATE OF EXAM: 09/03/2019 CLINICAL HISTORY: N63. Palpable abnormality. Recent abnormal ultrasound. History of right-sided breas t cancer. TECHNIQUE: Ultrasound guided core biopsy of left breast with clip placement and follow-up diagnostic two-view mammogram. COMPARISON: Prior left breast ultrasound June 06, 2019 and older studies. FINDINGS: The procedure of ultrasound guided core biopsy was explained to the patient. Benefits, alt ernatives, and risks were discussed. An informed consent was then obtained. The patient was placed in supine positioning for imaging and for the procedure. Preprocedure ultraso und redemonstrates 5 x 3 mm round hypoechoic lesion 9:00 position zone B right breast. Patient states today this does not correspond to her palpable abnormality which is slightly more superior in locati on. This now believed to correspond to slightly larger oval hypoechoic 7 x 3 mm lesion 11 o'clock pos ition zone A corresponding to prior ultrasound abnormality. I gave patient choice of only sampling 11 :00 lesion but she desired both lesions sampled. The overlying skin was prepped and draped in usual s terile fashion. Lidocaine was used as anesthetic into the skin. Lidocaine with epinephrine is used an esthetic into the deeper tissue up to area of concern in the left breast. Under ultrasound guidance, a 12-gauge vacuum assisted biopsy gun device was used to obtain 2 core olivia ples at 11:00 lesion and one core sample at level of 9:00 lesion. Following this, a biopsy clip was left at site of both lesions. Neither lesion well seen after sampling especially smaller 9:00 lesion. The patient tolerated the procedure well without any immediate complication. The patient was kept in the radiology department for short stay after the procedure and then discharged home in stable condi tion. Postprocedure mammogram confirms successful deployment of both clips IMPRESSION: Successful, uncomplicated ultrasound guided core biopsy of 2 areas of concern in the left breast, full pathology results to follow. Low index of suspicion 9:00 lesion. Low to intermediate index of suspicion 11:00 lesion.
== END ==
LOC: RADUSWWP 11:17
PROVIDERS: ATTEND Surgery
DX: N60.12 Diffuse cystic mastopathy of left breast (principal); Z88.1 Allergy status to other antibiotic agents; Z91.048 Other nonmedicinal substance allergy status; Z88.2 Allergy status to sulfonamides; Z85.3 Personal history of malignant neoplasm of breast
CPT/HCPCS: 88305; 77065; 19083; 19084; A4648; J2001

== ENCOUNTER → 2019-09-12 | Outpatient (CLI) | payer MEDICARE ==
[2019-09-12 14:05] VITALS: BP 128/79; PULSE 83; RESP 20; TEMP 98.2
--- NOTE | 2019-09-12 14:25 | P.PN ---
Basia Anthony is a 68-year-old white female status post right breast lumpectomy and sentinel node biopsy for a [id number] G2 ER+/TX+ HER 2 - breast cancer performed on 12-24-18. She did not receive any radiation therapy. She is on arimidex. The lumpectomy was done on December 24, 2018. Her last bilateral mammogram was in August 2018. This had revealed a 1.1 cm spiculated mass in the lower inner quadrant of the right breast. No lesions of concern were documented in the left breast. Patient noted increased swelling of the right breast near the lumpectomy site and was seen in the emergency room and April 2019. She is on xerlato for atrial fibrillation. She subsequently went to the operating room and incision and drainage of the area of concern in the right breast was performed 04-07-19. The patient was then treated with IV antibiotics and followed by infectious disease. The patient's cultures grew only staph aureus. The patient is now doing well with respect to this. The patient states most recently she has noted a lump in the left breast at the 8 o'clock position which is tender, this has been present for several weeks. She reports no trauma to the left breast. She also complains of some nodularity at the incision site in the axilla in the left . On 3619 she underwent an ultrasound of the left breast which revealed a 6 x 5 x 4 mm lesion at 9:00 and a lesion at 11:00. Was recommended that she undergo ultrasound-guided core biopsy of these lesions. This was performed and 6320. Ultrasound-guided core biopsies were negative for malignancy for both of these sites. This was reviewed by Dr. Sales in the recommendation was follow-up ultrasound of the left breast in 6 months. Family history: Mother: Skin and breast cancer Hormonal history: Menarche: 9 misc[place], breast fed: yes, age at first : 18 menopause: hysterectomy at 28, no cancer, left ovaries BCP; 3 months hormones: none Surgical history: 1. 3 back surgeries 2. 3 knee replacements 3. Heel surgery 4. Right elbow 5. Right thyroid resection 6. Heart ablation 7. 4 hernia surgeries 8. Cholecystectomy Medical history: 1. Hypothyroid 2. Hypertension 3. High cholesterol 4. Atrial fibrillation Social history: Smoke: Negative Alcohol: Negative Drugs: Negative Review of systems: Constitutional: Negative HEENT: Negative Breasts: As per HPI Cardiovascular: Atrial fibrillation on blood thinner Respiratory: Left diaphragm paralyzed GI: Negative : Kidney stones Menstruation: Postmenopausal Musculoskeletal: Muscle weakness Neurologic: Weakness Psychiatric: Depression Endocrine: Fatigued Hematologic: on xeralto Objective - Vital Signs Vital signs: Vital Signs Temp 98.2 F 09/12/19 14:03 Pulse 83 09/12/19 14:03 Resp 20 09/12/19 14:03 BP 128/79 09/12/19 14:03 Pulse Ox 96 09/12/19 14:03 Intake & Output 09/11/19 09/12/19 09/12/19 18:59 06:59 18:59 Weight 124.738 kg - Exam BMI 44.4 - Constitutional General appearance: Present: obese - EENT Eyes: Present: EOMI ENT: Present: hearing grossly normal - Neck Neck: Present: normal ROM - Respiratory Respiratory: bilateral: CTA - Cardiovascular Rhythm: regular Heart sounds: normal: S1, S2 - Integumentary Integumentary Comment(s): Well-healed scar right breast from prior surgery No evidence of infection or hematoma in the left breast - Psychiatric Psychiatric: Present: A&O x's 3 - Allied health notes Allied Health Notes Comment(s): Breast examination: BRA 42DDD inspection grade 3 ptosis Palpation: Right breast: Multiple positional exam fibrocystic changes, well-healed scar from prior surgery Made axilla: No adenopathy of concern Left breast: Multiple positional exam fibrocystic changes area of nodularity noted to patino to be fibrocystic changes in nature Left axilla: No adenopathy of concern Assessment and Plan Assessment: Impression: 1. Patient status post lumpectomy for right breast stage I cancer no evidence of recurrent disease she did not have radiation therapy, she is presently on an antiestrogen medication she did not have chemotherapy 2. Lesion left breast is benign 3. Hypothyroid 4. Hypertension 5. High cholesterol 6. Atrial fibrillation Plan: 1. Repeat right breast mammogram now 6 months from her prior surgery 2. Bilateral mammogram. We will schedule time 3. Ultrasound of left breast in 6 months CC: DR. Corey Angel encounter 20 minutes > 50% of time in planning and counselling
== END ==
LOC: WWCWWP 13:58
PROVIDERS: ATTEND Surgery
DX: Z53.9 Procedure and treatment not carried out, unspecified reason (principal)

== ENCOUNTER → 2019-11-20 | Day surgery (SDC) | payer MEDICARE ==
[2019-11-20 07:35] VITALS: RESP 16
--- NOTE | 2019-11-20 08:52 | P.PCN ---
Date of Procedure: 11/20/19 Preoperative Diagnosis: Microcalcifications of concern left breast Postoperative Diagnosis: Same Procedure(s) Performed: Left breast stereotactic core biopsy Anesthesia: local Surgeon: Nicolette Haines Estimated Blood Loss (ml): 1 Pathology: other (Breast tissue) Condition: stable Disposition: same day Indications for Procedure: Microcalcifications of concern left breast Operative Findings: Radiograph of specimen reveals microcalcifications of concern Description of Procedure: Gabrielle is a 69-year-old white female who was noted to have microcalcifications of concern in her left breast. She was recommended to undergo a stereotactic core biopsy. Risks and benefits were discussed with the patient she understood and wished to proceed. Alternatives such as watchful waiting or open biopsy were not recommended. The patient was taken to the sterotactic core biopsy room. She was positioned prone on the lo rad table. A embroidery cutter film was obtained and the area of concern was identified. The lesion was targeted. A CC from below approach was utilized. The skin was prepped using a non-iodine solution. 20 mL of 1% lidocaine 10 of which had epinephrine were utilized to anesthetize the area of concern. A 9-gauge vacuum-assisted core rotating biopsy needle was driven to the correct location. The needle was fired. Post fire films revealed that the lesion was in the correct location. 7 core biopsies were obtained. The area of biopsy was lavaged. Radiograph of the specimen revealed the microcalcifications of concern had been sampled. A secure irma marker was placed. The patient tolerated the procedure in stable condition. The specimen was sent to pathology. The patient will follow-up with Dr. Angel.
[2019-11-20 09:34] VITALS: BP 129/80; PULSE 90; TEMP 98
--- NOTE | 2019-11-20 09:39 | MM ---
EXAMINATION TYPE: MG stereo VAD BX LT DATE OF EXAM: 11/20/2019 COMPARISON: NONE CLINICAL HISTORY: Left breast calcifications TECHNIQUE: Stereotactic guided core biopsy of left breast. FINDINGS: The procedure of stereotactic guided core biopsy was explained to the patient. Benefits, alternatives, and risks were discussed. An informed consent was then obtained. The shortness pathway for biopsy was chosen. Shortness pathway was inferior approach. I performed the localization, then surgeon, Dr. Stanley Zamora performed the remainder of the procedure. A vacuum assisted biopsy gun was used to obtain multiple core samples. The patient tolerated the procedure well without any immediate complication. The patient was kept in the radiology department for short stay after the procedure and then discharged home in stable condition. Targeted calcifications are identified in specimen mammogram. Post biopsy mammogram shows the clip to appear in satisfactory position relative to the targeted area of concern on the preprocedure images. IMPRESSION: SUCCESSFUL, UNCOMPLICATED STEREOTACTIC GUIDED CORE BIOPSY OF AREA OF CONCERN IN THE left BREAST, FULL PATHOLOGY RESULTS TO FOLLOW. 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 Recommendation Follow up mammogram of the left breast in 6 months. ELIO
== END ==
LOC: RADMAMWWP 07:11
PROVIDERS: ATTEND Surgery
DX: R92.8 Other abnormal and inconclusive findings on diagnostic imaging of breast (principal); N63.24 Unspecified lump in the left breast, lower inner quadrant; N60.12 Diffuse cystic mastopathy of left breast; N60.82 Other benign mammary dysplasias of left breast
CPT/HCPCS: 88305; 19081; A4648; J2001

== ENCOUNTER 2019-12-15 16:03 | Emergency (ER) | payer MEDICARE ==
[2019-12-15 16:27] VITALS: TEMP 98.1
--- NOTE | 2019-12-15 17:16 | US ---
EXAMINATION TYPE: US extremity nonvasc mass RT DATE OF EXAM: 12/15/2019 COMPARISON: NONE CLINICAL HISTORY: mass, pain . patient fell 3 weeks ago. Lump right lower arm since fall, getting lar venkata complex fluid collection right arm within area of lump = 2.9 x 0.5 x 1.2cm IMPRESSION: Small subcutaneous complex fluid collection could be a hematoma.
--- NOTE | 2019-12-15 18:00 | ED ---
Extremity Problem HPI - General Chief complaint: Extremity Problem,Nontraumatic Stated complaint: Hematoma per Time Seen by Provider: 12/15/19 16:40 Source: patient Mode of arrival: ambulatory Limitations: no limitations - History of Present Illness Initial comments: 69-year-old female patient presents to the emergency department today for evalu ation of pain and swelling to the right forearm. Patient states she had a fall approximately 3 weeks ago and developed a lump to the right forearm. Patient states this started as size of a dime and has become larger and more painful. Patient states she is having some tingling to the right fourth and fifth fingers. Patient states that she has had a hematoma drained in the past and was hoping that she could have a drained here in the emergency department. She denies any other injuries or concerns. States that she does take a blood thinning medication she is stop this 24 hours ago. Patient denies any recent rash, fever, chills, cough, shortness of breath, chest pain, abdominal pain, nausea, vomiting, diarrhea, constipation, back pain, numbness, tingling, dizziness, weakness, hematuria, dysuria, urinary urgency, urinary frequency, headache, visual changes, or any other complaints. - Related Data Home Medications Medication Instructions Recorded Confirmed Levothyroxine Sodium [Synthroid] 88 mcg PO QAM 02/19/14 11/20/19 amLODIPine/VALSARTAN [Exforge 1 tab PO QAM 02/19/14 11/20/19 5-320 MG] atenoloL [Atenolol] 100 mg PO QAM 02/19/14 11/20/19 Citalopram Hydrobromide 40 mg PO QAM 10/07/18 11/20/19 [Citalopram HBr] HYDROcodone/APAP 10-325MG [Farner 1 tab PO Q4H PRN 12/23/18 11/20/19 10-325] Anastrozole [Arimidex] 1 mg PO QAM 04/07/19 11/20/19 Rivaroxaban [Xarelto] 20 mg PO HS 06/04/19 11/20/19 Previous Rx's Medication Instructions Recorded Atorvastatin [Lipitor] 10 mg PO DAILY #30 tab 04/10/19 Allergies Allergy/AdvReac Type Severity Reaction Status Date / Time cephalexin monohydrate Allergy Mild Rash/Hives Verified 12/15/19 16:27 [From Keflex] Iodinated Contrast Media Allergy Mild Rash/Hives Verified 12/15/19 16:27 [Iodinated Contrast Media - IV Dye] Sulfa (Sulfonamide Allergy Mild Rash/Hives Verified 12/15/19 16:27 Antibiotics) adhesive tape AdvReac Severe Rash/Hives Uncoded 12/15/19 16:27 Review of Systems ROS Statement: Those systems with pertinent positive or pertinent negative responses have been documented in the HPI. ROS Other: All systems not noted in ROS Statement are negative. Past Medical History Past Medical History: Atrial Fibrillation, Atrial Flutter, Cancer, Chest Pain / Angina, GERD/Reflux, Hyperlipidemia, Hypertension, Osteoarthritis (OA), Thyroid Disorder Additional Past Medical History / Comment(s): R breast cancer with lumpectomy 09/2018, cardiomyopathy, pleurisy, thyroid surgery d/t goiter-hypothyroid, arthritis in multiple joints, chronic low back pain. Right breast infection History of Any Multi-Drug Resistant Organisms: None Reported Past Surgical History: Back Surgery, Bladder Surgery, Breast Surgery, Cardiac Ablation, Cholecystectomy, EPS, Heart Catheterization, Hernia Repair, Hysterectomy, Joint Replacement, Orthopedic Surgery Additional Past Surgical History / Comment(s): R breast core bx/needle loc, R breast lumpectomy/axillary node dissection, EPS/ablation of aflutter, CHATO, cardioversion, low back surgeries with plate/screws, total R knee arthroplasties x3, R foot multiple surgeries for spur/neuromas, L foot cystectomy, R elbow injury with surgery, R wrist ganglion cystectomy, partial right sided thyroidectomy, 4 abdominal hernia repairs, bladder suspension, colonoscopy Past Anesthesia/Blood Transfusion Reactions: No Reported Reaction Additional Past Anesthesia/Blood Transfusion Reaction / Comment(s): 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 Mother Family Medical History: Cancer, Deep Vein Thrombosis (DVT) Additional Family Medical History / Comment(s): Skin and breast cancer. General Exam Limitations: no limitations General appearance: alert, in no apparent distress, other (This is a well- developed, well-nourished adult female patient in no acute distress. Vital signs upon presentation are temperature 98.1F, pulse 83, respirations 18, blood pressure 122/76, pulse ox 98% on room air.) Respiratory exam: Present: normal lung sounds bilaterally. Absent: respiratory distress, wheezes, rales, rhonchi, stridor Cardiovascular Exam: Present: regular rate, normal rhythm, normal heart sounds. Absent: systolic murmur, diastolic murmur, rubs, gallop, clicks GI/Abdominal exam: Present: soft, normal bowel sounds. Absent: distended, tenderness, guarding, rebound, rigid Extremities exam: Present: full ROM, normal capillary refill, other (There is 4 cm x 3 cm mass to the right forearm over the ulnar aspect. There is no skin changes, no erythema, no ecchymosis. Skin is otherwise pink, warm, dry. Cap refills less than 3 seconds. Radial pulses 2+ and equal bilaterally). Absent: normal inspection, tenderness, pedal edema, joint swelling, calf tenderness Neurological exam: Present: alert, oriented X3, CN II-XII intact Psychiatric exam: Present: normal affect, normal mood Skin exam: Present: warm, dry, intact, normal color. Absent: rash Course Vital Signs 12/15/19 16:23 Temperature 98.1 F Pulse Rate 83 Respiratory 18 Rate Blood Pressure 122/76 O2 Sat by Pulse 98 Oximetry Medical Decision Making - Medical Decision Making 69-year-old female patient presents to the emergency department today requesting drainage of a right forearm hematoma. Physical examination did reveal a 4 cm x 3 cm mass to the right forearm over the ulnar aspect. There is no skin changes, no ecchymosis, no erythema sided perform ultrasound which showed evidence for probable hematoma to the area. Neurovascular status is intact. I did discuss with patient that we do not drain hematomas in the emergency department and she will be discharged to follow-up with orthopedics. We will apply Freddy wrap for compression. Return parameters were discussed in detail. She verbalizes understanding and agrees with this plan. Disposition Clinical Impression: Traumatic hematoma of right forearm Disposition: HOME SELF-CARE Condition: Good Instructions (If sedation given, give patient instructions): Hematoma (ED) Additional Instructions: Use Freddy wrap for compression. Call self pay specialist first thing in the morning for an appointment. Follow-up with her primary care physician for recheck in 1-2 days. Return to the emergency department immediately for any new, worsening, or concerning symptoms. Is patient prescribed a controlled substance at d/c from ED?: No Referrals: Curtis Angel MD [Primary Care Provider] - 1-2 days Rory Layton DO [Doctor of Osteopathic Medicine] - 1-2 days Time of Disposition: 18:00
[2019-12-15 18:26] VITALS: BP 111/73; PULSE 82; RESP 16
== END 2019-12-15 18:23 | disposition home or self-care (01) ==
LOC: EC 16:03
DX: S50.11XA Contusion of right forearm, initial encounter (principal); I48.91 Unspecified atrial fibrillation; I48.92 Unspecified atrial flutter; I10 Essential (primary) hypertension; E03.9 Hypothyroidism, unspecified; F32.9 Major depressive disorder, single episode, unspecified; Z79.890 Hormone replacement therapy; Z79.899 Other long term (current) drug therapy; Z79.01 Long term (current) use of anticoagulants; Z88.1 Allergy status to other antibiotic agents; Z88.2 Allergy status to sulfonamides; Z91.041 Radiographic dye allergy status; Z91.048 Other nonmedicinal substance allergy status; Z85.3 Personal history of malignant neoplasm of breast; W19.XXXA Unspecified fall, initial encounter
CPT/HCPCS: 99283

== ENCOUNTER 2020-05-12 10:52 | Day surgery (SDC) | payer MEDICARE ==
[2020-05-10 17:42] VITALS: BMI 43.5
[~2020-05-12 10:52] MED LIST changes: -ALPRAZolam 0.25 MG TAB PO PRN; +ATROPINE OPHTH SOLN 1% 5ML BTL BOTH EYES PRN; -DEXAMETHASONE SOD PHOSPHATE 10 MG/ML 1 ML VIAL IV ONE; -HEPARIN SODIUM,PORCINE 5,000 UNIT/ML 1 ML VIAL SQ ONE; -HYDROmorphone 0.5 MG/0.5 ML SYRINGE IVP PRN; -LACTATED RINGERS 1,000 ML IV SCH; +LIDOCAINE 1% (10MG/ML) FOR IV START INTRADERMA PRN; -LIDOCAINE 1% 20 ML VIAL (10MG/ML) FOR IV START INTRADERMA PRN; -MIDAZOLAM 2 MG/2 ML VIAL IV PRN; +MOXIFLOXACIN HCL 0.5% DROPS 3 ML BTL OP PRN; -ONDANSETRON 4 MG/2 ML VIAL IVP ONE; -Pre Op ABX Message 1 EACH MISC MISCELLANE ONE; -SCOPOLAMINE 1.5MG/72HR PATCH TRANSDERM ONE; +TETRACAINE 0.5% OPHTH (PF) DROPS 4 ML BTL OP PRN; +TIMOLOL 0.5% OPHTH DROPS 5 ML BTL OP PRN
[2020-05-12 11:57] VITALS: RESP 16; TEMP 97
[2020-05-12] MEDS: CYCLOPENTOLATE 1% OPHTH SOLN 2 ML BTL OP PRN ×3 (11:59→12:25)
[2020-05-12] MEDS: PHENYLEPHRINE 2.5% OPHTH DRP 2ML OP PRN ×3 (12:02→12:29)
[2020-05-12] MEDS: LACTATED RINGERS 1,000 ML IV SCH ×2 (12:45→13:00)
[2020-05-12] MEDS ORDERED: fentaNYL (PF) 50 MCG/ML 2 ML AMP ONE (12:58)
[2020-05-12] MEDS ORDERED: MIDAZOLAM 2 MG/2 ML VIAL ONE (12:58)
[2020-05-12] MEDS ORDERED: EPINEPHrine (PF) 0.3 ML in BALANCED SALT IRRIG SOLN COMB2 500 ML IRRIGATION ONE (13:18)
[2020-05-12] MEDS ORDERED: DUOVISC KIT (GREEN BOX) INTRAOCULA ONE (13:19)
[2020-05-12] MEDS ORDERED: BALANCED SALT IRRIG SOLN COMB2 15 ML IRRIG.SOLN IRRIGATION ONE (13:19)
[2020-05-12] MEDS ORDERED: LIDOCAINE 1% (PF) 10MG/ML VIAL MISCELLANE ONE (13:19)
--- NOTE | 2020-05-12 13:37 | P.OP ---
Date of Procedure: 05/12/20 Preoperative Diagnosis: NS & CS Postoperative Diagnosis: same Procedure(s) Performed: PIOL, OS Implants: [id number] 20.50 Anesthesia: MAC Surgeon: Ephraim Gallagher Pathology: none sent Condition: stable Disposition: same day Indications for Procedure: blurry vision Operative Findings: no complications
[2020-05-12 13:47] VITALS: PULSE 70
[2020-05-12] MEDS ORDERED: IBUPROFEN 200 MG TAB PO ONE (13:50)
[2020-05-12 13:56] VITALS: BP 118/72
--- NOTE | 2020-05-12 23:40 | OP ---
OPERATIVE REPORT DATE OF SURGERY: 05/12/2020. PROCEDURE: Phacoemulsification of cataract and intraocular lens implant of the left eye. PREOPERATIVE DIAGNOSIS: Nuclear sclerosis, cortical sclerosis. POSTOPERATIVE DIAGNOSIS: Nuclear sclerosis, cortical sclerosis. ESTIMATED BLOOD LOSS: Zero. SPECIMEN TAKEN: None. NARRATIVE: After obtaining the appropriate consent, the patient was brought to the operating room, where the patient was placed under cardiac monitoring and prepped and draped in the usual sterile manner. At the 5 o'clock position a 15-degree super sharp blade was used to create a paracentesis followed by instillation of 1% Xylocaine MPF 50:50 mix with BSS into the anterior chamber. This was followed by DuoVisc to stabilize the anterior chamber. At the 3 o'clock position a self-sealing corneal flap incision was created using 2.8 mm beulah keratome. A cystotome was used to initiate a continuous tear capsulorrhexis which was completed with the Utrata forceps. A Binkhorst cannula was used to hydrodissect the lens nucleus followed by hydrodelineation. Phacoemulsification of the lens was performed utilizing phaco chop in 23.56 seconds at 18% power. The remaining cortical material was removed using the irrigation and aspiration mode followed by additional 1% Xylocaine MPF into the anterior chamber followed by DuoVisc to stabilize the capsular bag. A [employer]ch [employer] Lomb MX 60E 20.5 diopters posterior chamber lens was placed into the capsular bag without difficulty. The remaining viscoelastic material was removed from the anterior chamber with the irrigation/aspiration. Balanced salt solution was used to normalize the intraocular pressure. The incision was checked for watertight integrity. The patient then received two drops of 0.5% Timolol followed by two drops Vigamox and was lightly patched and shielded in the usual manner. There were no complications from the procedure. The patient tolerated the procedure well and was returned to Recovery in good condition. MMODL / IJN: [id number] /
== END 2020-05-12 14:12 | disposition home or self-care (01) ==
LOC: OR 10:52
PROVIDERS: ATTEND Ophthalmology
DX: H25.812 Combined forms of age-related cataract, left eye (principal); H52.13 Myopia, bilateral; H52.4 Presbyopia; H35.369 Drusen (degenerative) of macula, unspecified eye; I10 Essential (primary) hypertension; I42.9 Cardiomyopathy, unspecified; C50.911 Malignant neoplasm of unspecified site of right female breast; E89.0 Postprocedural hypothyroidism; E78.5 Hyperlipidemia, unspecified; M19.90 Unspecified osteoarthritis, unspecified site; K21.9 Gastro-esophageal reflux disease without esophagitis; F32.9 Major depressive disorder, single episode, unspecified; Z79.01 Long term (current) use of anticoagulants; Z79.890 Hormone replacement therapy; Z79.891 Long term (current) use of opiate analgesic; Z79.899 Other long term (current) drug therapy; Z79.811 Long term (current) use of aromatase inhibitors; Z88.1 Allergy status to other antibiotic agents; Z91.041 Radiographic dye allergy status; Z88.2 Allergy status to sulfonamides; Z91.048 Other nonmedicinal substance allergy status; Z98.41 Cataract extraction status, right eye; Z96.1 Presence of intraocular lens; Z96.651 Presence of right artificial knee joint; Z86.69 Personal history of other diseases of the nervous system and sense organs; Z86.79 Personal history of other diseases of the circulatory system; Z83.518 Family history of other specified eye disorder; Z82.61 Family history of arthritis; Z80.9 Family history of malignant neoplasm, unspecified; Z82.49 Family history of ischemic heart disease and other diseases of the circulatory system; Z83.49 Family history of other endocrine, nutritional and metabolic diseases; Z98.890 Other specified postprocedural states
CPT/HCPCS: 66984; C1780; J2250; J0171; J3010; J2001

== ENCOUNTER → 2020-07-23 | Outpatient (CLI) | payer MEDICARE | END | disposition home or self-care (01) | LOC: LABWHC1 08:36 | PROVIDERS: ATTEND Family Medicine | DX: U07.1 COVID-19 (principal) | CPT/HCPCS: U0003; C9803; U0005 ==

== ENCOUNTER → 2020-07-26 | Outpatient (CLI) | payer MEDICARE ==
[~2020-07-26] MED LIST changes: -ATROPINE OPHTH SOLN 1% 5ML BTL BOTH EYES PRN; +BAMLANIVIMAB (EUA) 700 MG, ETESEVIMAB (EUA) 1,400 MG in SODIUM CHLORIDE 0.9% 50 ML IVPB ONE; -LIDOCAINE 1% (10MG/ML) FOR IV START INTRADERMA PRN; -MOXIFLOXACIN HCL 0.5% DROPS 3 ML BTL OP PRN; +SODIUM CHLORIDE 0.9% 50 ML IVPB ONE; +SODIUM CHLORIDE 0.9% 500 ML 500 ML in EMPTY BAG 1 BAG IV PRN; -TETRACAINE 0.5% OPHTH (PF) DROPS 4 ML BTL OP PRN; -TIMOLOL 0.5% OPHTH DROPS 5 ML BTL OP PRN
[2020-07-26 14:38] VITALS: RESP 16
[2020-07-26 16:12] VITALS: BP 137/62; PULSE 99; TEMP 99.1
== END | disposition home or self-care (01) ==
LOC: PROCWHC3 14:01
PROVIDERS: ATTEND Family Medicine
DX: U07.1 COVID-19 (principal)
CPT/HCPCS: Q0245; M0245

== ENCOUNTER → 2021-01-18 | Outpatient (CLI) | payer MEDICARE ==
--- NOTE | 2021-01-18 15:01 | XR ---
Right knee HISTORY: Pain, fall 1 week prior 3 views of the right knee correlated to postoperative film dated 10/04/2010 Patient is status post right knee arthroplasty. There is anatomic alignment. No evident fracture or d islocation. Bone mineralization is reduced. IMPRESSION: No acute abnormality is evident.
--- NOTE | 2021-01-18 15:13 | XR ---
Lumbar spine HISTORY: Pain, trauma one week prior 3 views of the lumbar spine, correlation to prior exam 10/11/2015 Postop changes are stable. There is a kyphosis as noted on prior exam centered at L1-2 with anterolis thesis grade 1 L1-2, posterior fusion changes are present at L2-L4, there is degenerative disc change L4-5 and L5-S1. Bone mineralization is reduced. Some loss of height superior endplate of L1 again se en. No acute fracture or subluxation is evident. Surgical clips are present in the right upper quadra nt. IMPRESSION: Stable postoperative findings, osteoporotic superior endplate depression L1. There is ost eopenia.
--- NOTE | 2021-01-19 09:02 | CT ---
EXAMINATION TYPE: CT brain wo con DATE OF EXAM: 01/18/2021 COMPARISON: None HISTORY: fall, trauma and pain CT DLP: 1715.5 mGycm Automated exposure control for dose reduction was used. Helical imaging through the brain and cervica l spine. FINDINGS: Brain shows cortical atrophy. Periventricular white matter shows patchy low attenuation. There is no hemorrhage or hydrocephalus. Cerebral vascular calcifications are present. Calvarium is intact. Paran ming sinuses and mastoid air cells are well aerated. Cervical spine shows a spinal curvature. There is multilevel spondylosis, facet arthropathy change, f oraminal encroachment. Cervical vertebral bodies are intact. There is a segmentation anomaly at C2-3. Loss of disc height present C3-4, C4-5 and C5-6 and C6-7, multilevel spinal stenosis present due to posterior extension endplate disc complexes. Vacuum phenomenon present at C4-5, C5-6. Lung apices are normal. IMPRESSION: NO ACUTE BRAIN ABNORMALITY. AGE-RELATED CHANGES OF ATROPHY AND CHRONIC SMALL VESSEL ISCHEMIA. DEGENER ATIVE DISC DISEASE, MULTILEVEL FORAMINAL ENCROACHMENT, FACET ARTHROPATHY, SPINAL STENOSIS.
== END | disposition home or self-care (01) ==
LOC: RADCTMAIN 14:00
PROVIDERS: ATTEND Family Medicine
DX: M25.561 Pain in right knee (principal); M54.50 Low back pain, unspecified; R51.9 Headache, unspecified; S89.91XA Unspecified injury of right lower leg, initial encounter; S39.92XA Unspecified injury of lower back, initial encounter; S09.90XA Unspecified injury of head, initial encounter
CPT/HCPCS: 70450; 72100; 72125

== ENCOUNTER → 2021-01-18 | Outpatient (CLI) | payer MEDICARE ==
--- NOTE | 2021-01-18 14:05 | MM ---
Reason for exam: additional evaluation requested from prior study. Last mammogram was performed 1 year and 3 months ago. History: Patient is postmenopausal and has history of breast cancer at age 68. Benign MG stereo VAD BX LT of the left breast, November 20, 2019. Benign US biopsy breast VAD LT of the left breast, September 03, 2019. Benign US biopsy breast add'l VAD LT of the left breast, September 03, 2019. Malignant MG pre op needle loc RT of the right breast, December 24, 2018. Lumpectomy of the right breast, December 24, 2018. Benign US biopsy breast VAD RT of the right breast, November 14, 2018. Malignant US biopsy breast VAD RT of the right breast, October 21, 2018. Malignant US biopsy breast add'l VAD RT of the right breast, October 21, 2018. Benign right mammotome panel of the right breast, February 20, 2012. Excisional biopsy of the right breast, 2001. Benign excisional biopsy of the left breast, July 25, 2000. Took estrogen for 10 years. Taking antineoplastic beginning at age 68. Physical Findings: Nurse did not find any significant physical abnormalities on exam. MG 3D Diag Mammo W/Cad GEORGE Bilateral CC and MLO view(s) were taken. Prior study comparison: October 29, 2019, bilateral MG 3d diag mammo w/cad GEORGE. September 03, 2019, left breast MG diagnostic mammo LT wo CAD. June 06, 2019, left breast US breast limited LT. September 25, 2018, bilateral MG 3d diag mammo w/cad GEORGE. January 05, 2017, bilateral MG 3d screening mammo w/cad. There are scattered fibroglandular densities. Previous mammotome biopsy in the right breast x 2 and in the left breast x 3. There is chronic nodularity in the right medial subareolar breast. Post surgical change right breast. No significant new findings when compared with previous films. These results were verbally communicated with the patient and result sheet given to the patient on 01/18/21. ASSESSMENT: Benign, BI-RAD 2 RECOMMENDATION: Follow-up diagnostic mammogram of both breasts in 1 year.
--- NOTE | 2021-01-18 16:42 | XR ---
Left wrist HISTORY: Pain, trauma one week prior 4 views the left wrist, correlation left hand 10/10/2018. Bone mineralization is reduced. There is sclerosis, marginal spurring and possible subchondral geode formation at the carpometacarpal joint of the first digit. Alignment is maintained. No periostitis to suggest fracture healing. IMPRESSION: No fracture or dislocation is evident. Osteoarthritis and osteopenia.
== END | disposition home or self-care (01) ==
LOC: RADMAMWWP 12:35
PROVIDERS: ATTEND Family Medicine
DX: M25.532 Pain in left wrist (principal); S69.92XA Unspecified injury of left wrist, hand and finger(s), initial encounter; R92.2 Inconclusive mammogram; Z85.3 Personal history of malignant neoplasm of breast
CPT/HCPCS: 73110; 77066; G0279; 77062

== ENCOUNTER 2021-10-06 07:50 | Day surgery (SDC) | payer MEDICARE ==
[2021-10-06 08:24] VITALS: TEMP 97.7
[2021-10-06] MEDS ORDERED: diazePAM 5 MG TAB PO STA (08:33)
[2021-10-06] MEDS ORDERED: diphenhydrAMINE 50 MG CAP PO STA (09:08)
[2021-10-06] MEDS ORDERED: HYDROcodone/APAP 10-325MG 1 EACH TAB ONE (11:35)
--- NOTE | 2021-10-06 12:20 | CT ---
EXAMINATION TYPE: CT lumbar spine w con DATE OF EXAM: 10/06/2021 COMPARISON: HISTORY: Radiculopathy CT DLP: 3072.1 mGycm CONTRAST: 11 mL Omnipaque 350 TECHNIQUE: CT of the lumbar spine is performed on a spiral scan at 3 mm thick sections. Reconstructed images are performed in the coronal and sagittal planes. FINDINGS: T8-L1: No focal disc herniation or significant disc bulge is evident. No spinal canal stenosis or n eural foraminal stenosis is present. Contrast to run the contrast up to this level were unsuccessful during the exam. No significant intrathecal contrast through these levels is evident. T11-12: Some mild left paracentral endplate change may be encroaching the thecal sac with mild compre ssion. T12-L1: Some mild superior endplate changes present at L1. No focal disc herniation or significant di sc bulge is evident. No spinal canal stenosis. Neural foramen appear patent. Some vacuum disc phenome non is present at this level. There is facet hypertrophy with moderate posterior lateral right theca l sac compression from the hypertrophy. Some right foraminal narrowing at T12-L1 is evident. L1-2:No focal disc herniation or significant disc bulge is evident. No spinal canal stenosis or kaylene ral foraminal stenosis is present. Minimal facet hypertrophy with posterior lateral thecal sac contac t on the right is present. No stenosis is evident. L2-L3: Disc spacers present. There is fixation pedicle screws at L2 and L3. No spinal canal stenosis is evident. Neural foramen are not well visualized. L3-L4: Disc spacer is present. Pedicle screws are present L3 and L4. No spinal canal stenosis present . Foramen appear patent as visualized. L4-L5: Facet hypertrophy and ligamentum flavum laxity is present. Mild disc bulge with intrathecal sa c flattening is present. Pedicles appear congenitally short. Findings are contributing to spinal katty l stenosis greater in the lateral dimension. L5-S1: No focal disc herniation or significant disc bulge is evident. No spinal canal stenosis or n eural foraminal stenosis is present There is kyphosis centered at L2. IMPRESSION: 1. Spinal canal stenosis L4-5 secondary to facet hypertrophy with ligamentum flavum laxity and mild d isc bulge. 2. Mild impression on the thecal sac at the T12-L1 level due to facet hypertrophy and minimally at T1 1-12 due to endplate changes and left paracentral region
--- NOTE | 2021-10-06 12:24 | FL ---
Lumbar puncture and Myelogram. INDICATION: Pain FINDINGS: Fluoroscopy time: 1 minute 17 seconds. Images obtained: 10. The procedure was explained to the patient. Risks complications and benefits were discussed. Alternat winston were discussed. All questions were answered. Informed consent was obtained. A timeout was performed. The L4-5 level was chosen for access. Maximum barrier sterile technique was utilized. The skin was cl eansed with Betadine and the patient sterilely prepped and draped in the usual manner. The skin and d eeper tissue was anesthetized with 1% Lidocaine. Utilizing a 5 cm 22-gauge spinal needle the spinal c anal was accessed. Good CSF return was evident. Isovue 380 was utilized, 11 milliliters was administ ered under fluoroscopic observation. The stylette was replaced and the needle withdrawn. Fluoroscopic spot images were obtained. The patient tolerated the procedure well. Discharge instructions were discussed with the patient. Th e patient was transferred to CT for additional evaluation. Findings: Limited views of the lumbar spinal canal with contrast were obtained. There appears to be a severe stenosis of the L4-5 level. There was difficulty of contrast flow beyond the L2 level. IMPRESSIONS: 1. Successful Lumbar Puncture. 2. Spinal canal stenosis L4-5 level fixation level. See CT lumbar spine results same date.
[2021-10-06 18:30] VITALS: RESP 16
[2021-10-06 18:35] VITALS: BP 124/58; PULSE 58
== END 2021-10-06 14:30 | disposition home or self-care (01) ==
LOC: RADPROMAIN 07:50
PROVIDERS: ATTEND Orthopaedic Surgery
DX: M47.26 Other spondylosis with radiculopathy, lumbar region (principal); M48.061 Spinal stenosis, lumbar region without neurogenic claudication; M51.16 Intervertebral disc disorders with radiculopathy, lumbar region; M47.815 Spondylosis without myelopathy or radiculopathy, thoracolumbar region; G89.29 Other chronic pain; I48.91 Unspecified atrial fibrillation; Z82.49 Family history of ischemic heart disease and other diseases of the circulatory system; Z83.6 Family history of other diseases of the respiratory system; Z80.3 Family history of malignant neoplasm of breast; Z80.8 Family history of malignant neoplasm of other organs or systems; Z79.899 Other long term (current) drug therapy; Z79.890 Hormone replacement therapy; Z79.01 Long term (current) use of anticoagulants; Z88.2 Allergy status to sulfonamides; Z88.3 Allergy status to other anti-infective agents; Z91.09 Other allergy status, other than to drugs and biological substances
CPT/HCPCS: 62304; 72132; Q9967; 62284

== ENCOUNTER → 2022-02-06 | Outpatient (CLI) | payer MEDICARE ==
[2022-02-06 13:03] LABS: Partial Thromboplastin Time 24.7 sec (22.0-30.0); Prothrombin Time 10.7 sec (9.0-12.0)
[2022-02-06 18:20] LABS: African American GFR (CKD) 87.4 (60.0-200.0); Albumin 4.6 g/dL (3.8-4.9); Albumin/Globulin Ratio 1.63 (1.60-3.17); Anion Gap 14.4 mmol/L (10.00-18.00); BUN/Creat Ratio 21.54 Ratio (12.00-20.00); Blood Urea Nitrogen 16.8 mg/dL (9.0-27.0); Calcium 9.8 mg/dL (8.7-10.3); Carbon Dioxide 24.4 mmol/L (20.0-27.5); Globulin 2.8 g/dL (1.6-3.3); Non-African American GFR(CKD) 75.4 (60.0-200.0); Potassium 4.7 mmol/L (3.5-5.5); Total Bilirubin 0.9 mg/dL (0.30-1.20); Total Protein 7.5 g/dL (6.2-8.2)
== END | disposition home or self-care (01) ==
LOC: LABWHC1 10:54
PROVIDERS: ATTEND Family Medicine
DX: Z01.812 Encounter for preprocedural laboratory examination (principal)
CPT/HCPCS: 36415; 80053; 85610; 85730

== ENCOUNTER → 2022-02-21 | Outpatient (CLI) | payer MEDICARE | END | disposition home or self-care (01) | LOC: LABPAT 15:24 | PROVIDERS: ATTEND Family Medicine | DX: Z01.812 Encounter for preprocedural laboratory examination (principal); D68.9 Coagulation defect, unspecified ==

== ENCOUNTER 2022-02-24 05:34 | Inpatient (IN) | payer MEDICARE ==
[2022-02-21 17:18] LABS: ALT 25 U/L (4-34); AST 28 U/L (14-36); African American GFR (CKD) >90 (>60 ml/min/1.73 sqM); Albumin 4.3 g/dL (3.5-5.0); Albumin/Globulin Ratio 1.7; Alkaline Phosphatase 96 U/L (38-126); Anion Gap 7 mmol/L; Blood Urea Nitrogen 15 mg/dL (7-17); Calcium 9.1 mg/dL (8.4-10.2); Carbon Dioxide 26 mmol/L (22-30); Chloride 105 mmol/L (98-107); Globulin 2.6 g/dL; Glucose 117 mg/dL (74-99); Non-African American GFR(CKD) >90 (>60 ml/min/1.73 sqM); Potassium 4.2 mmol/L (3.5-5.1); Sodium 138 mmol/L (137-145); Total Bilirubin 1.1 mg/dL (0.2-1.3); Total Protein 6.9 g/dL (6.3-8.2)
[2022-02-21 17:23] LABS: Partial Thromboplastin Time 24.4 sec (22.0-30.0); Prothrombin Time 10.6 sec (9.0-12.0)
[2022-02-21 17:26] LABS: Basophils % (A) 0 %; Eosinophils % (A) 1 %; HGB 13.7 gm/dL (11.4-16.0); Lymphocytes # (A) 1.7 k/uL (1.0-4.8); Lymphocytes % (A) 25 %; MCH 29.3 pg (25.0-35.0); MCHC 33.5 g/dL (31.0-37.0); MCV 87.7 fL (80.0-100.0); Monocytes # (A) 0.4 k/uL (0-1.0); Monocytes % (A) 6 %; Neutrophils # (A) 4.6 k/uL (1.3-7.7); Neutrophils % (A) 66 %; Platelet Count 243 k/uL (150-450); RBC 4.67 m/uL (3.80-5.40); WBC 6.9 k/uL (3.8-10.6)
[~2022-02-24 05:34] MED LIST changes: +ACETAMINOPHEN TAB 500 MG TAB PO PRN; -BAMLANIVIMAB (EUA) 700 MG, ETESEVIMAB (EUA) 1,400 MG in SODIUM CHLORIDE 0.9% 50 ML IVPB ONE; +DEXAMETHASONE SOD PHOSPHATE 4 MG/ML 1 ML VIAL IV ONE; +GABAPENTIN 300 MG CAP PO PRN; +HYDROmorphone 0.5 MG/0.5 ML SYRINGE IVP PRN; +MELOXICAM 7.5 MG TAB PO PRN; +ONDANSETRON 4 MG/2 ML VIAL IVP ONE; -SODIUM CHLORIDE 0.9% 50 ML IVPB ONE; -SODIUM CHLORIDE 0.9% 500 ML 500 ML in EMPTY BAG 1 BAG IV PRN; +TRANEXAMIC ACID IN NACL,ISO-OS 1,000 MG in SALINE 1 100ML.BAG IVPB PRN
--- NOTE | 2022-02-24 06:28 | P.HPOR ---
History of Present Illness H&P Date: 02/06/22 .T:Title: [facility] History and Physical Date of :[birth year] Age: 71 year Height: 5'7" Weight: 275 lbs BMI: 43.07 kg/m2 Occupation: Retired VAS: 10 CHIEF COMPL AINT: recheck low back and discuss operative intervention DOI:Chronic DOS: x2 prior lumbar surgeries through Dr. Tabares Duration of current treatment regiment: >6 months HISTORY: Xrays brought xrays, CT myelogram from outside facility which were reviewed Trauma or injury No Work-Related No Pain description dull, aching, burning, sharp. Location posterior Patient notes that their pain radiates to right lower extremity Activity Modification yes Hand Dominance right TREATMENTS COMPLETED: 6 weeks of PT completed? Month and Year of last PT date? Yes How many sessions? multitude Did it help? No Physician recommended home exercise completed? Duration of HEP course: Current yes Patient has trialed the physician directed home exercise program for greater than 5 weeks (without) relief of their symptoms. Medications yes List: Tylenol Motrin and other allowable medications while she is on's role to for her A. fib Alternative interventions Chiropractic: No Massage therapy: yes R.I.C.E: yes Brace: No Injections Yes How many? past injections Did they help? No RFA: No SUBJECTIVE: Ms. Gee returns to the office for a recheck of their lumbar spine and to review her abnormal labs. Since the time of the last appointment the patient reports that she has seen no changes to her low back or radicular symptoms. With this, she reports that she has had a fever for the last several days along with lethargy. Otherwise she notes continued debility due to her symptoms. Patient is having severe sleep disturbances as well due to their ongoing pain and associated symptoms. Regarding treatments, the patient has previously trialed all abovementioned treatment modalities without relief. Patient denies trialing any other modalities at this time. Otherwise the patient denies any bladder or bowel retention/incontinence, no perineal numbness/tingling, and ambulates independently. HISTORY: Ms. Gee last returned to the office on 01/20/2022 for a pre-operative recheck of their planned thoracic 10 to pelvis revision Decompression and posterior lateral and interbody Fusion . Since the time of the last appointment the patient reports no improvements to her symptoms, noting continued thoracolumbar pain into the right lower extremity. Overall the patient has seen a progressive increase in symptoms since their onset. Ms. Gee symptoms are exacerbated with prolonged standing and ambulation, due to this they notes that it is inc reasingly difficult for Ms. Gee to complete many of their daily tasks. Patient is having severe sleep disturbances as well due to their ongoing pain and associated symptoms. Regarding treatments, the patient has previously trialed all abovementioned treatment modalities without relief of her symptoms. Patient denies trialing any other modalities at this time. Otherwise the patient denies any f/c/sob/cp, no incision concerns, no bladder or bowel retention/incontinence, no perineal numbness/tingling, and ambulates with a walker. Ms. Gee last returned to the office on 01/02/2022 for a recheck of their low back and to review possible surgical intervention. Since the time of the last appointment the patient reports no changes to her symptoms. Patient continues to complain of ow back pain into the right lower extremity associated with diffuse numbness, tingling, and weakness. Overall the patient has seen a progressive increase in symptoms since their onset. Ms. Gee symptoms are exacerbated with any standing or ambulation, due to this they notes that it is increasingly difficult for Ms. Gee to complete many of their daily tasks. Patient is having severe sleep disturbances as well due to their ongoing pain and associated symptoms. Regarding treatments, the patient has previously trialed all abovementioned treatment modalities all without relief of her symptoms. Patient denies trialing any other modalities at this time. For their symptoms, the patient has been taking Tylenol, Motrin, and [place] 10/325mg all without relief of her symptoms. Otherwise the patient denies any f/c/sob/cp, no incision concerns, no bladder or bowel retention/incontinence, no perineal numbness/ti ngling, and ambulates independently. Ms. Gee was last seen on 11/14/2021 regarding her lumbar spine and evaluation by myself. The patient previously saw Vianca muhammad SHANK SANDER for this. She was worked up appropriately sent to physical therapy as well as had a CT myelogram performed. The patient has a history of 2 different back surgeries and fusions which were over [address] Tabares. She did okay after her surgeries but progressed over time. She states that this doctor wanted to do surgery on her several years ago but she did not want the surgery but now she is becoming more debilitated. She says in the past 3 months she has had to start using a walker due to her legs becoming weak. She states that she continues to progress and her weakness and she is having more pain and numbness and tingling in her legs that she has before. She also has increased back pain is more severe than before. She is having difficulty performing her activities of daily living and it severely limiting her ability to enjoy normal activity. She denies any bowel or bladder issues. She denies any perineal numbness or tingling at this time. No fevers chills shortness of breath or chest pain at this time Patient was previously seen on 10/24/2021 for evaluation of her lower back pain. Patient states that her symptoms remain the same since previous visit. Patient continues to have sharp pain in her lower back that radiates into her right buttock and down into her right knee. She continues to have numbness and tingling into bilateral lower extremities, which is worse in the right lower ex tremity. Patient is very tearful during this visit. She states she is tired of not being able to perform her daily tasks. Ms. Gee states she just wants to be able to enjoy her days. Patient is expecting a granddaughter in January and states just wants to be able to hold her. Emotional support provided. During last visit PM&R were consulted, patient stated she was unable to follow through. She is currently taking [place] 10/325 for pain management. Otherwise patient denies any f/c/sob/cp, no bladder or bowel retention/incontinence no perineal numbness/tingling, and ambulates with walker. Today 08/08/2021 Ms. Gee presents to the office for chronic lower back pain that is radiating into her right buttock down to her right knee. Patient states she has numbness/tingling into bilateral lower extremities, worse in the right lower extremity. Patient states the pain is worse when she first is trying to stand. She denies any bowel or bladder incontinence. Patient has had a total of 3 lumbar surgical procedures with the last one occurring in March 2001. Patient states she has been on [place] for over approximately 20 years. She was recently prescribed oral steroid that started on August 05 by her PCP. Patient states she has had slight relief. The patients' past social, medical, family, surgical history, as well as review of systems, have been reviewed. Please refer to the Neurosurgery History and Physical form that has been scanned in to our electronic medical record system. 16 points review of systems completed and as stated in HPI, all other systems reviewed are negative. Social History: Reviewed, see appropriate section of the chart for details. P3 Social History: Smoking: never a smoker P3 Alcohol: none P3 Family History: Reviewed, see appropriate section of the chart for details. P2 Past Medical History: Reviewed, see appropriate section of the chart for details. [id number] Medications: Rx: atorvastatin 10 mg tablet Ref: 0 Rx: Exforge 5 mg-320 mg tablet Ref: 0 Rx: HYDROcodone 10 mg-acetaminophen 325 mg tablet Ref: 0 Rx: Synthroid 88 mcg tablet Ref: 0 Rx: Tenormin 50 mg tablet Ref: 0 Rx: tiZANidine 4 mg capsule Ref: 0 Rx: venlafaxine 50 mg tablet Ref: 0 Rx: Xarelto 20 mg tablet Ref: 0 Rx: Cymbalta 60 mg capsule,delayed release Ref: 0 PHYSICAL EXAMINATION: General: Awake, alert, appropriate for age, in no acute distress. HEENT: No unusual neck masses around region of lateral neck triangle, thyroid, supraclavicular groove Heart: Regular rate and rhythm, normal S1, S2 and no murmur/gallop. Lungs: Clear to auscultation bilaterally with no use of accessory muscles. Extremities: Skin warm and dry without acute lesions, coloration, temperature, skin intact, no tenderness or erythema Integument: Hairy patches: ABSENT Dorsal skin dimples: ABSENT Cafe au lait spots: ABSENT Surgical incisions: well-healed posterior midline incision Palpation: Please see Pain drawing on Intake sheet for further detail. Midline spinal tenderness: yes with palpable gibbus around the T12-L1 region E6 Cervical Tenderness: No E6 Paralumbar tenderness: yes E6 Parathoracic tenderness: No E6 Buttocks tenderness: No E6 POSTURAL and MUSCULO-SKELETAL EVALUATION: Coronal Balance: NEUTRAL Recumbent testing: Patient is not able to lay flat on back Sagittal Balance: positive plus to Shoulder Profile: LEVEL Pelvic Girdle: LEVEL Neck ROM: UNRESTRICTED Lumbar ROM: severely RESTRICTED Shoulder ROM: Symmetrical Hip ROM: Symmetrical Knee ROM: Symmetrical Hands: Normal appearance, symmetrical Feet: Normal appearance, Symmetrical VASCULAR STATUS : LEFT RIGHT Wrist Pulses INTACT INTACT Pedal Pulses (Dors. pedis & post.tibialis) INTACT INTACT Color NORMAL NORMAL Edema Absent Absent NEUROLOGIC EXAMINATION: Mental Status:Awake and alert, fully oriented, with normal attention, concentration and memory, and fluent, appropriate speech. Cranial Nerves: I: Olfactory not tested. II: Visual acuity normal, no visual field deficit noted with confrontation. III,IV: Normal pupillary reflexes & intact extraocular movements without nystagmus. V,: Intact symmetrical facial sensation. VII: Intact symmetrical facial motor movement VIII: Hearing intact. IX,X: Intact gag, swallow, & normal voice. XI: Sternocleidomastoid, trapezius function intact. XII: Tongue midline with normal movements. L'hermitte's Sign: Negative / absent Spurling'Sign: Absent bilaterally. Cubital percussion test: Absent bilaterally. Warren-Tinel sign - Carpal region: Absent bilaterally. Straight Leg Raising: Absent bilaterally. Crossed straight leg raise: negative O8 MOTOR EXAM (0-5/5, N/T) UPPER EXTREMITY Shoulder Abduction Biceps Triceps Wrist Extension Hand Intrinsics Pharmacognosist Right 5/5 5/5 5/5 5/5 5/5 5/5 Left 5/5 5/5 5/5 5/5 5/5 5/5 LOWER EXTREMITY Hip Flexion Knee Extension Knee Flexion DF PF EHL FHL Right 4/5 4/5 4/5 4/5 4/5 4/5 4/5 Left 4/5 4/5 4/5 4/5 4/5 4/5 4/5 REFLEXES(0-4/2, NT)Upper ExtremityLower Extremity Right 2 2 Left 2 2 Pathological Reflexes RIGHT LEFT Warren's Absent Absent Clonus Absent Absent Babinski Absent Absent # Indicates mechanical impairment Muscle appearance: Symmetrical, without signs of atrophy or dystrophy. Sensory system (0-4, N/T) Test type RU PAZ RL LL Joint-Position 2 2 2 2 Vibration 2 2 2 2 Pain & LT sense 2 2 2 2 Dermatomal Deficit: None None Global Global Gait and Functional Evaluation: Ambulatory aids: Walker Romberg's test: Not intact Toe heel walk / heel-toe walk intact while maintaining satisfactory balance? No Squatting/straightening w/o assistance to a min of 60 degree knee flexion? No Single leg stance: Trendelenburg Pos Hand and finger dexterity intact bilaterally? yes Disdiadochokinesis examination negative bilaterally? yes RADIOGRAPHIC STUDIES: XRay Lumbar Multiview (AP, Lateral, Flexion, Extension) with AP pelvis; 5 views taken on 11/14/21 at [facility] of Lumbar Spine: Images are reviewed of her lumbar spine demonstrated widespread spondylosis. There are postsurgical changes from L2 to L4 with fusion construct. Interbody as well as posterior lateral fusion. Hardware appears to be in good position and there is good effusion anteriorly. However there is severe breakdown proximally between L1 and L2 with severe kyphosis L1-L2 due to this breakdown and adjacent segment disease as well as proximal junctional failure. This is about a 30 anterior kyphosis at this level and reversal to normal curvature. this creates an overall lumbar lordosis which is essentially negative however her segmental lordosis at her fused segments from L2 to L5 is within reason around 35. De Guzman memo this is negated by the severe kyphosis between L1 and L2. There is also distal junctional failure and adjacent segment disease at L4 5 and L5-S1 with spondylosis and disc degeneration and disc height loss. There are no other fractures or dislocations noted at this time AP pelvis demonstrates congruent level [facility]: This is reviewed. This is somewhat of a poor myelogram study as the dye did not fully extravasate through the thecal sac and a reasonable amount of it is extradural however that which made it into the thecal sac shows reasonable space at L4 5 and L5-S1 with only moderate stenosis centrally. There is more severe stenosis noted L1-L2 as well as L2-L3 secondary to the kyphosis as well as overgrowth. There is likely ligamental overgrowth as well as facet overgrowth in this area. Again alignment is as stated above with severe kyphosis L1 to L2. There are no acute fractures or dislocations otherwise noted. There is L1 to S1 stenosis which is moderate to severe. IMPRESSION: It was my pleasure to have seen and examined Gabrielle. I reviewed the patient's clinical syndrome, physical findings, and imaging studies during the appointment today. It is my impression that the patient has a diagnosis of. 1. 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 severe kyphosis L1-L2 with proximal junctional failure 3. severe spondylosis L4 to S1 with distal junctional failure 4. Neurogenic claudication due to severe lumbar stenosis and deformity I outlined the natural course history without intervention and various interventional options. PLAN: Based on my findings I suggest the following course of action: -We reviewed the patient's current condition and we will plan on delaying her surgery due to her ongoing fever. Patient is agreeable with this. I discussed treatment options with the patient, including operative and non-operative options, and they have elected to proceed with the following surgical procedure: thoracic 10 to pelvis revision Decompression and posterior lateral and interbody Fusion The indications, risks, benefits, and alternatives to surgery were discussed with the patient at length. Specifically (but not limited to) the risks of infection, stiffness, recurrence of symptoms, need for revision surgery, local numbness, neurovascular injury, and blood clots were discussed. The patient's questions were answered. The decision to proceed was made. Consent will be obtained for the procedure. -Advised patient to continue with supplements, health maintenance, and home exercise programs. Patient expressed understanding and will continue with these modalities. -Ambulate daily -Take medications as directed -Ice and rest for pain and swelling control. Spine Surgery Risk Review Ms. Gee is presenting for evaluation of low back pain and right lower extremity radiculopathic symptoms. It was my pleasure to have seen and examined Ms. Gee. In our visit today we have had a chance to go over subjective complaints, physical examination findings and treatments including the natural course history without intervention and various interventional options. The patients imaging demonstrates: XRay taken on 11/14/21 of Lumbar Spine: images are reviewed of her lumbar spine demonstrated widespread spondylosis. There are postsurgical changes from L2 to L4 with fusion construct. Interbody as well as posterior lateral fusion. Hardware appears to be in good position and there is good effusion anteriorly. However there is severe breakdown proximally between L1 and L2 with severe kyphosis L1-L2 due to this breakdown and adjacent segment disease as well as proximal junctional failure. This is about a 30 anterior kyphosis at this level and reversal to normal curvature. this creates an overall lumbar lordosis which is essentially negative however her segmental lordosis at her fused segments from L2 to L5 is within reason around 35. However this is negated by the severe kyphosis between L1 and L2. There is also distal junctional failure and adjacent segment disease at L4 5 and L5-S1 with spondylosis and disc dege neration and disc height loss. There are no other fractures or dislocations noted at this time AP pelvis demonstrates congruent level pelvis no fracture CT myelogram scan from 2of Lumbar Spine: this is reviewed. This is somewhat of a poor myelogram study as the dye did not fully extravasate through the thecal sac and a reasonable amount of it is extradural however that which made it into the thecal sac shows reasonable space at L4 5 and L5-S1 with only moderate stenosis centrally. There is more severe stenosis noted L1-L2 as well as L2-L3 secondary to the kyphosis as well as overgrowth. There is likely ligamental overgrowth as well as facet overgrowth in this area. Again alignment is as stated above with severe kyphosis L1 to L2. There are no acute fractures or dislocations otherwise noted. There is L1 to S1 stenosis which is moderate to severe. On physical exam, Ms. Gee demonstrates severely restricted lumbar ROM with tenderness to palpation about the T12-L1 region. Along with this she does also demonstrate global weakness about the bilateral lower extremities that does significantly impact her gait. She does ambulate with a walker due to this. I have explained to the patient that as their condition progresses it will cause further neurological deficits and eventual paralysis. Based on the patients imaging, physical exam, and the rapid progression and disabling nature of their symptoms, at this time I recommend surgery in the form or a: thoracic 10 to pelvis revision Decompression and posterior lateral and interbody Fusion . I discussed the risk and benefits of this procedure at length with Ms. Gee. The patient agreed to considered pursuing the procedure abovementioned. Prior to surgery, she should follow up with her PCP (Cardio, ID, IM etc) for clearance. Questions were invited and answered, and the patient wishes to proceed as outlined below. Currently, I am recommendin. thoracic 10 to pelvis revision Decompression and posterior lateral and interbody Fusion 2.Follow up with PCP for surgical clearance 3.Review of surgical risks and benefits as well as an educational packet on the proposed surgical procedure. Risks: All surgical procedures come with inherent risks, including those related to positioning, anesthesia, intraoperative findings, and postoperative complications. It is important to understand that surgery does not come with any guarantee of a successful outcome as complications and adverse events are always possible. The patient was given a handout in office today discussing the surgical procedure and risks associated with the intervention, both of which were discussed with the patient. These risks include but are not limited to the following: * Experiencing same, different or even worse symptoms in back, neck, arms, or legs compared to before surgery. Requiring further surgery or other forms of treatment presently or at some time in the future at same or other levels of the intended spine surgery. On an extreme but fortunately relatively rare basis severe complication such as blindness, stroke, heart attack, temporary and/or permanent nerve injury, paralysis, coma, or may occur, sometimes without known explanation. Surgical complications may include but are not limited to risk of infection, fluid accumulation in the surgical dissection site, including a seroma or hematoma, that requires additional surgery, wound drainage, bleeding, new numbness or weakness, vision changes/loss, spinal fluid leakage, non-healing and/or infected incision, headaches, difficulty or inability to swallow, hoarseness, hemopneumothorax, pneumothorax, impotence, retrograde ejaculation, vaginal dryness; injury to nerves, spinal cord, blood vessels, lymphatics or other vital organs (i.e., bowel injury, injury to the great vessels); h eterotopic bone formation; complications related to the hardware such as screws, rods, cages including misplaced hardware, device failure, instrumentation at the wrong spine level, hardware fracture/breakage, or hardware loosening; vertebral failure of the spinal column above or below the newly placed hardware; retained surgical instrumentations or devices and the need for further surgery. * Medical risks of the planned spine surgery include but are not limited to generalized Infections to the whole body or local areas outside of the surgical site (sepsis), heart attack, bleeding, anaphylaxis, meningitis, seizure, epilepsy, hearing loss, burn manning, laceration of the head or other areas of the body, bruising, hypersensitivity of the skin, bladder over distension; allergic reaction; shoulder injury related to positioning; fat, blood and air clots to other areas of the body like heart, lungs, brain; failure of internal organs such as lungs, kidneys, liver and excessive bleeding. If blood transfusions are necessary, note that transfusions may cause intolerance reactions such as anaphylaxis or other complex reactions. Despite best efforts, the results of spine surgery might not heal in terms of bone, soft tissues such as skin, fascia, ligaments, and joints. Additionally, in order to achieve best possible results, spine surgery may be carried out beyond the initially planned levels and involve decompression, fusion including insertion of hardware at levels other than the original intended area of surgical interest change some portions of the procedure in order to ensure the best possible outcomes. With spine surgery and spinal fusion, there are different off label uses of instrumentation (devices, implants and hardware) as well as biological substances (bone morphogenic proteins, demineralized bone matrix) as well as using extra bone from allograft sources (i.e. cadaver bone) or autograft (iliac crest bone, ribs, or the spine itself). The patient has been given information about these practices and their inherent risks and benefits. [facility] is an educational center that serves as a training facility for neurosurgical and orthopedic FOOD SERVICE MANAGER and Nursing students. Physician assistants are medically trained surgical providers who function in the outpatient, inpatient, and operating room setting under the direct supervision of the attending surgeon. [facility] has multiple operating rooms with single and overlapping rooms running daily. They currently function under the required guidelines as produced by the [facility] Finance Committee with regards to the overlapping rooms and will continue to comply with changes to this policy as they occur. The requirements include and are complied with as follows: (1) the critical portions of the overlapping rooms will not occur at the same time, (2) the attending physician will be physically present during the critical portions of the procedure and immediately available during the entire case, and (3) a back-up attending is designated should the primary attending not be immediately yokasta ilable. The patient has had a chance to review all the listed information, has been given print outs detailing this information, and has had all his/her questions answered to their satisfaction. It was my pleasure to have seen and examined Ms. Gee. In our visit today we have had a chance to go over my understanding of our patient's current condition, the natural course history without intervention and various interventional options. Questions were invited and answered, and the patient wishes to proceed as outlined above. I have seen and examined the patient for 25 minutes and we have spent more than 50% of the time in repeat and detailed counseling about the patient's condition, its natural course history with out and as much as can be predicted with surgery and re-review of various surgical treatment options. In conclusion, Ms. Gee requested we proceed with the above suggested surgery and are willing to accept risks and limitations of the suggested surgery as nature of the disease process and our best attempts at treatment for the condition. Thank you again for allowing us to be part of your patient's care. Please don't hesitate to contact me if you have any further questions. Signed and authenticated by: Follow-up: post procedure Patient Education: (Informational booklet, instructions, etc) given at today's appointment: Yes .ED:Patient Education: Y Plan at next visit: pre-operative review Medications Reviewed: YES In our visit today Ms. Gee and I have had a chance to go over my understanding of the patient's current condition, the natural course history without intervention and various interventional options. Questions were invited and answered, and the patient wishes to proceed as outlined above. I will be sure to keep you updated afterMs. Gee returns here for further follow-up. Thank you again for your referral. Please do not hesitate to contact me if you have any further questions. Signed and authenticated by: Thom Alexander DO [facility] [address] [place] [address] This message is confidential, intended only for the named recipient(s) and may contain information that is privileged or exempt from disclosure under applicable law. If you are not the intended recipient(s), you are notified that the dissemination, distribution or copying of this information is strictly prohibited. If you received this message in error, please notify the sender then delete this message. Patient verbalizes understanding of the information discussed. The above note was initiated by Thom Morrissey, physician recording customer assistant for Dr. Thom Alexander. This note has been reviewed by Dr. Alexander, who has made his personal changes and impressions for this document. CC: Curtis Angel M.D. # SIGNED BY Thom Alexander ([facility])02/13/2022 08:04AM Past Medical History Past Medical History: Atrial Fibrillation, Atrial Flutter, Cancer, Chest Pain / Angina, GERD/Reflux, Hyperlipidemia, Hypertension, Osteoarthritis (OA), Thyroid Disorder Additional Past Medical History / Comment(s): Rr breast cancer, hiatal hernia, chronic low back pain. partially paralyzed rt diaphragm, infection rt breast after surgery History of Any Multi-Drug Resistant Organisms: None Reported Past Surgical History: Back Surgery, Bladder Surgery, Breast Surgery, Cardiac Ablation, Cholecystectomy, EPS, Heart Catheterization, Hernia Repair, Hyster ectomy, Joint Replacement, Orthopedic Surgery Additional Past Surgical History / Comment(s): R breast core bx/needle loc, R breast lumpectomy/axillary node dissection, CHATO, cardioversion, low back surgeries x3 with plate/screws, total R knee x3, R foot multiple surgeries for spur/neuromas, L foot cystectomy, R elbow injury w/ surgery, R wrist ganglion cystectomy, partial thyroidectomy, 4 abdominal hernia repairs, bladder suspension, colonoscopy, loki cataract, laser loki eye surgery 01/31/22 Past Anesthesia/Blood Transfusion Reactions: Previous Problems w/ Anesthesia, Postoperative Nausea & Vomiting (PONV) Additional Past Anesthesia/Blood Transfusion Reaction / Comment(s): On ventilator for 2 days after cardiac ablation d/t diaphragm paralysis-rt side Past Psychological History: Depression Additional Psychological History / Comment(s): . Smoking Status: Never smoker Past Alcohol Use History: Rare Past Drug Use History: None Reported - Past Family History Father Family Medical History: Cancer Additional Family Medical History / Comment(s): . Mother Family Medical History: Cancer, Deep Vein Thrombosis (DVT) Additional Family Medical History / Comment(s): Skin and breast cancer. Medications and Allergies Home Medications Medication Instructions Recorded Confirmed Type Levothyroxine Sodium [Synthroid] 88 mcg PO QAM 02/19/14 02/20/22 History HYDROcodone/APAP 10-325MG [[place] 1 tab PO Q4H PRN 12/23/18 02/20/22 History 10-325] Atorvastatin [Lipitor] 10 mg PO DAILY #30 tab 04/10/19 02/20/22 Rx atenoloL [Tenormin] 100 mg PO QAM 05/10/20 02/20/22 History Amlodipine Besylate/Valsartan 1 each PO QAM 02/02/22 02/20/22 History [Exforge 5-320 mg Tablet] DULoxetine HCL [Cymbalta] 60 mg PO DAILY 02/02/22 02/20/22 History Rivaroxaban [Xarelto] 20 mg PO HS 02/02/22 02/20/22 History Rosuvastatin Calcium 10 mg PO QAM 02/02/22 02/20/22 History Allergies Allergy/AdvReac Type Severity Reaction Status Date / Time cephalexin monohydrate Allergy Mild Rash/Hives Verified 02/24/22 05:56 [From Keflex] Iodinated Contrast Media Allergy Mild Rash/Hives Verified 02/24/22 05:56 [Iodinated Contrast Media - IV Dye] Sulfa (Sulfonamide Allergy Mild Rash/Hives Verified 02/24/22 05:56 Antibiotics) adhesive tape AdvReac Severe Rash/Hives Uncoded 02/24/22 05:56 Physical Examination Osteopathic Statement: *. No significant issues noted on an osteopathic structural exam other than those noted in the History and Physical/Consult. Results - Labs Labs: H & H 02/21/22 Range/Units 16:07 Hgb 13.7 (11.4-16.0) gm/dL Hct 41.0 (34.0-46.0) % Coagulation 02/21/22 Range/Units 16:07 INR 1.0 (<1.2) Result Diagrams: 02/21/22 16:07 02/21/22 16:07
[2022-02-24] MEDS: LACTATED RINGERS 1,000 ML IV SCH (06:37)
[2022-02-24] MEDS ORDERED: LACTATED RINGERS 1,000 ML IV ONE ×8 (06:37→14:57)
[2022-02-24] MEDS ORDERED: MIDAZOLAM 2 MG/2 ML VIAL IVP ONE ×2 (07:10→07:50)
[2022-02-24] MEDS ORDERED: SODIUM BICARB 8.4% 50 ML SYR (1 MEQ/ML) ONE (08:00)
[2022-02-24] MEDS ORDERED: MIDAZOLAM 2 MG/2 ML VIAL ONE (08:00)
[2022-02-24] MEDS ORDERED: PHENYLEPHRINE-0.9% NACL SYG 1,000 MCG/10 ML SYRINGE ONE (08:00)
[2022-02-24] MEDS ORDERED: ePHEDrine 50 MG/ML 1 ML VIAL ONE (08:00)
[2022-02-24] MEDS ORDERED: VASOPRESSIN 20 UNIT/ML 1 ML VIAL ONE (08:00)
[2022-02-24] MEDS ORDERED: KETAMINE 10 MG/ML 20 ML VIAL ONE (08:00)
[2022-02-24] MEDS ORDERED: SUCCINYLCHOLINE CHLORIDE 200 MG/10 ML VIAL IV ONE (08:00)
[2022-02-24] MEDS ORDERED: LIDOCAINE 2% INJ 20 MG/ML (2 ML VIAL) ONE (08:00)
[2022-02-24] MEDS ORDERED: fentaNYL (PF) 50 MCG/ML 2 ML AMP ONE (08:00)
[2022-02-24] MEDS ORDERED: SODIUM CHLORIDE 0.9% 100 ML BAG ONE (08:00)
[2022-02-24] MEDS ORDERED: ROCURONIUM 10 MG/ML (5 ML VIAL) IV ONE (08:00)
[2022-02-24] MEDS ORDERED: ALBUMIN HUMAN 5% (12.5gm) 250 ML BOTTLE IVPB ONE (08:00)
[2022-02-24] MEDS ORDERED: PROPOFOL 10 MG/ML 20 ML VIAL IV ONE (08:00)
[2022-02-24] MEDS ORDERED: TRANEXAMIC ACID IN NACL,ISO-OS 1,000 MG/100 ML BAG ONE (08:00)
[2022-02-24] MEDS ORDERED: HYDROmorphone (PF) 1 MG/ML ONE (08:00)
[2022-02-24] MEDS ORDERED: ceFAZolin 1,000 MG VIAL ONE (08:00)
[2022-02-24] MEDS ORDERED: ATROPINE SULFATE 0.4 MG/ML 1 ML VIAL ONE (08:00)
--- NOTE | 2022-02-24 08:44 | P.ANPRN ---
Procedure Note - Anesthesia - Nerve Block Performed Bilateral Erector Spinae Single Time Out Performed: Yes Date of Procedure: 02/24/22 Procedure Start Time: :09 Procedure Stop Time: :15 Location of Patient: PreOp Indication: Acute Post-Operative Pain, Requested by Surgeon Sedation Type: Sedate with meaningful contact maintained Preparation: Sterile Prep, Sterile Dressing Position: Prone Catheter: None Needle Types: Facet Needle Gauge: 20 Ultrasound used to visualize needle placement: Yes Ultrasound used to observe medication spread: Yes Injectate: Other (see comment) (Ropivacaine 0.25% + decadron 4 mg per side) Blood Aspirated: No Pain Paresthesia on Injection Noted: No Resistance on Injection: Normal Image Stored and Saved: Yes Events: Uneventful and Well Tolerated
--- NOTE | 2022-02-24 08:46 | P.ANPRN ---
Procedure Note - Anesthesia - Invasive Line Left Arterial Line Time Out Performed: Yes Date of Procedure: 02/24/22 Time of Procedure: 07:16 Location of Patient: PreOp Preparation: Sterile Prep, Sterile Dressing Arterial Line Location: Radial Ultrasound Used: Yes Purpose - Visualization and Identification of Vasculature: Yes Needle Guage: 20 Image Stored and Saved: Yes Narrative: Left radial arterial line placed using Seldinger technique Right Central Line Time Out Performed: Yes Date of Procedure: 02/24/22 Time of Procedure: 07:25 Location of Patient: PreOp Preparation: Sterile Prep, Sterile Dressing Ultrasound Used: Yes Purpose - Visualization and Identification of Vasculature: Yes Needle Guage: 18 Image Stored and Saved: Yes Narrative: Central line placement per sterile protocol utilized. TLC using Seldinger technique under u/s guidance
[2022-02-24] MEDS ORDERED: SODIUM CHLORIDE 0.9% IRRIG 3,000 ML BAG IRRIGATION ONE (09:00)
[2022-02-24] MEDS ORDERED: GENTAMICIN 40 MG/ML 2 ML VIAL ONE (09:00)
[2022-02-24] MEDS ORDERED: GENTAMICIN 80 MG in SODIUM CHLORIDE 0.9% 500 ML 3,000 ML IRRIGATION ONE (09:01)
[2022-02-24] MEDS ORDERED: ceFAZolin 3,000 MG in SODIUM CHLORIDE 0.9% IRRIGATIO 3,000 ML IRRIGATION ONE (09:01)
[2022-02-24] MEDS ORDERED: GELATIN SPONGE,ABSORB (LARGE) 1 EACH SPONGE TOPICAL ONE ×2 (09:26)
[2022-02-24] MEDS ORDERED: THROMBIN (BOVINE) 5,000 UNIT VIAL TOPICAL ONE ×2 (09:26)
[2022-02-24] MEDS ORDERED: SODIUM CHLORIDE 0.9% 50 ML with ceFAZolin 2 GM IV ONE ×2 (12:07)
[2022-02-24 14:33] LABS: Allen Test Performed? Yes
[2022-02-24 14:38] LABS: ABG Base Excess -19.7 mmol/L; ABG Oxygen Saturation 99.5 % (94-97); ABG PH 7.28 (7.35-7.45); ABG PO2 185 mmHg (83-108)
[2022-02-24 14:45] LABS: ABG HCO3 6 mmol/L (21-25); ABG PCO2 <15 mmHg (35-45)
[2022-02-24 14:59] LABS: Allen Test Performed? Yes
[2022-02-24] MEDS ORDERED: TRANEXAMIC ACID IN NACL,ISO-OS 1,000 MG in SALINE 1 100ML.BAG IVPB PRN (14:59)
[2022-02-24 15:02] LABS: ABG Base Excess -6.8 mmol/L; ABG HCO3 18 mmol/L (21-25); ABG Oxygen Saturation 99.7 % (94-97); ABG PCO2 38 mmHg (35-45); ABG PO2 197 mmHg (83-108)
[2022-02-24 15:06] LABS: ABG PH 7.31 (7.35-7.45)
[2022-02-24] MEDS ORDERED: propofoL 100 ML IV ONE (17:22)
[2022-02-24 17:33] LABS: Glucose,Whole Blood 229 mg/dL (70-110)
[2022-02-24] MEDS ORDERED: HYDROmorphone 0.5 MG/0.5 ML SYRINGE IVP PRN (17:33)
[2022-02-24] MEDS ORDERED: MAGNESIUM HYDROXIDE 2,400 MG/10 ML CUP PO PRN (17:33)
[2022-02-24] MEDS ORDERED: SENNOSIDES-DOCUSATE SODIUM 1 EACH TAB PO PRN (17:33)
[2022-02-24] MEDS ORDERED: HYDROcodone/APAP 10-325MG 1 EACH TAB PO PRN (17:33)
[2022-02-24] MEDS ORDERED: HYDROcodone/APAP 5-325MG 1 EACH TAB PO PRN (17:33)
[2022-02-24] MEDS ORDERED: 0.9% NACL WITH KCL 20 MEQ/L 1,000 ML IV SCH (17:45)
--- NOTE | 2022-02-24 17:49 | XR ---
EXAMINATION TYPE: XR lumbar spine 2 or 3V DATE OF EXAM: 02/24/2022 COMPARISON: NONE HISTORY: Spinal surgery TECHNIQUE: FINDINGS: 2 minutes and 44 seconds of fluoroscopic time was recorded. There is fluoroscopic images obtained moni t show multilevel apparent fusion surgery from the level of T10 to the sacrum. IMPRESSION: No complicating process seen.
[2022-02-24 17:58] LABS: ABG Base Excess -10.8 mmol/L; ABG HCO3 18 mmol/L (21-25); ABG Oxygen Saturation 99.5 % (94-97); ABG PCO2 46 mmHg (35-45); ABG PO2 167 mmHg (83-108); ABG TCO2 19 mmol/L (19-24); Allen Test Performed? Yes
[2022-02-24] MEDS ORDERED: SODIUM BICARB 8.4% 50 ML SYR (1 MEQ/ML) IV STA ×2 (18:00)
[2022-02-24 18:04] LABS: ABG PH 7.19 (7.35-7.45)
[2022-02-24] MEDS: DEXAMETHASONE SOD PHOSPHATE 4 MG/ML 1 ML VIAL IVP SCH (18:09)
[2022-02-24 18:12] LABS: HCT 26.8 % (34.0-46.0); Hypochromasia Moderate; MCH 30.2 pg (25.0-35.0); MCHC 32.7 g/dL (31.0-37.0); MCV 92.5 fL (80.0-100.0); Mean Platelet Volume 9.6; Platelet Count 203 k/uL (150-450); RDW 13.4 % (11.5-15.5); WBC 12.6 k/uL (3.8-10.6)
[2022-02-24 18:13] LABS: HGB 8.8 gm/dL (11.4-16.0)
[2022-02-24 18:18] LABS: AST 49 U/L (14-36); African American GFR (CKD) >90 (>60 ml/min/1.73 sqM); Albumin 2.6 g/dL (3.5-5.0); Alkaline Phosphatase 57 U/L (38-126); Anion Gap 11 mmol/L; Blood Urea Nitrogen 11 mg/dL (7-17); Calcium 7.4 mg/dL (8.4-10.2); Carbon Dioxide 17 mmol/L (22-30); Chloride 108 mmol/L (98-107); Glucose 237 mg/dL (74-99); Magnesium 1.2 mg/dL (1.6-2.3); Non-African American GFR(CKD) 90 (>60 ml/min/1.73 sqM); Phosphorus 4.2 mg/dL (2.5-4.5); Potassium 3.6 mmol/L (3.5-5.1); Sodium 136 mmol/L (137-145); Total Bilirubin 0.7 mg/dL (0.2-1.3); Total Protein 4.3 g/dL (6.3-8.2)
[2022-02-24 18:24] LABS: ALT 38 U/L (4-34)
[2022-02-24 18:25] LABS: INR 1.2 (<1.2); Prothrombin Time 12.5 sec (9.0-12.0)
--- NOTE | 2022-02-24 18:26 | XR ---
EXAMINATION TYPE: XR chest 1V portable DATE OF EXAM: 02/24/2022 COMPARISON: 01/02/2022 HISTORY: Postop TECHNIQUE: Single view FINDINGS: The endotracheal tube is 3 cm from the adiel. There is some perihilar patchy atelectasis. There is elevated right diaphragm. There is multilevel thoracic and lumbar spine fusion surgery. Ther e are chest leads. No obvious heart failure. There appears to be a nasogastric tube in stomach. There is right jugular catheter with tip over the right atrium. IMPRESSION: Patchy atelectasis appears new compared to the old exam.
[2022-02-24 18:29] LABS: Partial Thromboplastin Time 19.9 sec (22.0-30.0)
--- NOTE | 2022-02-24 18:40 | P.PN ---
Progress Note - Text Progress Note Date: 02/24/22 Operative course. During skin closure pt went into, likely, cardiac arrest. She had been in Afib and went into RVR, pressures dropped and her end tidal dropped off. Crash closure was done and pt was immediately flipped onto hospital bed. 1 round of CPR was performed with ROSC with down time less than 5 min. She was then stabilized and brought to the ICU. She continued to remain stable in the ICU. Stat labs, CXR and consults for med, PCC and cardio placed. 0.05 levo with SBP in the 130s and HR in the 110s. Drains in place with nominal output at this point. Stat ABG showed metabolic acidosis and is being treated accordingly by PCC and Med. Spoke with the family at length about happenings and anticipated course. At this time she is stable in the ICU care. Spoke with treatment team Medicine, PCC and all in agreement with treatment plan at this time. -Appreciate ICU and medical management -Consult Cardio for mgt as well -Lay flat overnight -Maintain drains, if high output set to gravity suction -MAPs 80s and above -Stat labs and daily ordered -Stat CXR reviewed, minimal effusion noted. -No BLT >5 lbs -Will follow closely
--- NOTE | 2022-02-24 18:42 | P.CONS ---
History of Present Illness - Reason for Consult Consult date: 02/24/22 Cardiac arrest Requesting physician: Thom Alexander - Chief Complaint back pain - History of Present Illness Patient is a 71 yo CF with a hx of A fib s/p ablation, GERD, hypertension, dyslipidemia, and right diaphragmatic paralysis who presented for T10 to Pelvis decompression and fusion with revision. Blood loss and the case was approximately 1900 mL. During her operative course she required phenylephrine IV infusion, Vasopressin IVP. She also received TXA gtt. She received 7 L of lactated Ringer's. She received 1 amp of sodium bicarb intaop. She also received albumin. Her operative course was complicated with a cardiac arrest. During the case she developed A. fib with RVR and then quickly transitioned into bradycardia with a low end-tidal CO2. She received 0.4 of atropine and CPR was started. She received epinephrine 0.5. She achieved ROSC. Total down time was less than 5 minutes. Patient seen and examined at bedside with Dr. Alexander, Dr. Salinas and the anesthologist present. Patient currently on levo 0.05 mcg/kg and propofol. Patient is intubated and sedated. Pertinent positives and negatives as discussed in HPI, a complete review of systems was performed and all other systems are negative. Vital signs reviewed General: nontoxic, maximal distress, appears at stated age Derm: warm, dry Head: atraumatic, normocephalic, symmetric Eyes: no lid lesions, anicteric sclera, pupils equal round reactive to light ENT: Nose and ears atraumatic,ET tube inplace Neck: No thyromegaly, no cervical lymphadenopathy, trachea midline, supple Mouth: no lip lesion, mucus membranes dry Cardiovascular: S1S2 reg, no murmur, positive posterior tibial pulse bilateral, mild edema, capillary refill less than 2 seconds Lungs: Course bs bilateral, no rhonchi, no rales, no wheeze, no accessory muscle use, on vent 18/450/5/80 Abdominal: soft, nontender to palpation, no guarding, no appreciable organomegaly, normal bowel sounds, Hemovac drains in place Ext: no gross muscle atrophy, no contractures Neuro: sedated on vent, no withdrawal to pain currently but on propofol infusion Psych: sedated on vent : [place] with yellow urine in place Assessment/Plan: 71 yo F s/p T10 to pelvis decompression with fusion Aborted sudden cardiac - cardio consult - echo - tele -Check stat CBC, CMP, PT, PTT, mag, phosphorus -EKG reviewed with no significant ST-T wave changes. Patient appears to be in atrial fibrillation. -Stat ABG ordered and reviewed Non-anion gap metbolic acidosis - 2 A of bicarb -Continue with IV fluids -Continue to monitor Hypomagnesemia -Replace and recheck in a.m. Postoperative respiratory failure, anticipated outcome of surgery Right diaphragmatic paralysis -Management per critical care Acute blood loss anemia, anticipated outcome of surgery -No indication for transfusion at this time -Follow CBC -Coags normal Permanent A fib - on xarelto held preop - tele HLD - lipitor HTN - currently hypotensive requiring levo - hold amlodipine, losartan, atenolol -Follow blood pressures - wean levo as able Thank you for allowing us to participate in the care of this pleasant patient. Do not hesitate to contact us with questions. Someone can be reached from the [facility] hospitalist group all hours of the day at [phone] or via [employer] ([employer]). Past Medical History Past Medical History: Atrial Fibrillation, Atrial Flutter, Cancer, Chest Pain / Angina, GERD/Reflux, Hyperlipidemia, Hypertension, Osteoarthritis (OA), Thyroid Disorder Additional Past Medical History / Comment(s): Rr breast cancer, hiatal hernia, chronic low back pain. partially paralyzed rt diaphragm, infection rt breast after surgery History of Any Multi-Drug Resistant Organisms: None Reported Past Surgical History: Back Surgery, Bladder Surgery, Breast Surgery, Cardiac Ablation, Cholecystectomy, EPS, Heart Catheterization, Hernia Repair, Hysterectomy, Joint Replacement, Orthopedic Surgery Additional Past Surgical History / Comment(s): R breast core bx/needle loc, R breast lumpectomy/axillary node dissection, CHATO, cardioversion, low back surgeries x3 with plate/screws, total R knee x3, R foot multiple surgeries for spur/neuromas, L foot cystectomy, R elbow injury w/ surgery, R wrist ganglion cystectomy, partial thyroidectomy, 4 abdominal hernia repairs, bladder suspension, colonoscopy, loki cataract, laser loki eye surgery 01/31/22 Past Anesthesia/Blood Transfusion Reactions: Previous Problems w/ Anesthesia, Postoperative Nausea & Vomiting (PONV) Additional Past Anesthesia/Blood Transfusion Reaction / Comm: On ventilator for 2 days after cardiac ablation d/t diaphragm paralysis-rt side Past Psychological History: Depression Additional Psychological History / Comment(s): . Smoking Status: Never smoker Past Alcohol Use History: Rare Past Drug Use History: None Reported - Past Family History Father Family Medical History: Cancer Additional Family Medical History / Comment(s): . Mother Family Medical History: Cancer, Deep Vein Thrombosis (DVT) Additional Family Medical History / Comment(s): Skin and breast cancer. Medications and Allergies Home Medications Medication Instructions Recorded Confirmed Type Levothyroxine Sodium [Synthroid] 88 mcg PO QAM 02/19/14 02/20/22 History HYDROcodone/APAP 10-325MG [[place] 1 tab PO Q4H PRN 12/23/18 02/20/22 History 10-325] Atorvastatin [Lipitor] 10 mg PO DAILY #30 tab 04/10/19 02/20/22 Rx atenoloL [Tenormin] 100 mg PO QAM 05/10/20 02/20/22 History Amlodipine Besylate/Valsartan 1 each PO QAM 02/02/22 02/20/22 History [Exforge 5-320 mg Tablet] DULoxetine HCL [Cymbalta] 60 mg PO DAILY 02/02/22 02/20/22 History Rivaroxaban [Xarelto] 20 mg PO HS 02/02/22 02/20/22 History Rosuvastatin Calcium 10 mg PO QAM 02/02/22 02/20/22 History Allergies Allergy/AdvReac Type Severity Reaction Status Date / Time cephalexin monohydrate Allergy Mild Rash/Hives Verified 02/24/22 05:56 [From Keflex] Iodinated Contrast Media Allergy Mild Rash/Hives Verified 02/24/22 05:56 [Iodinated Contrast Media - IV Dye] Sulfa (Sulfonamide Allergy Mild Rash/Hives Verified 02/24/22 05:56 Antibiotics) adhesive tape AdvReac Severe Rash/Hives Uncoded 02/24/22 05:56 Physical Exam Osteopathic Statement: *. No significant issues noted on an osteopathic structural exam other than those noted in the History and Physical/Consult. Vitals: Vital Signs Temp Pulse Resp BP BP Pulse Ox FiO2 02/24/22 18:02 80 02/24/22 17:40 100 02/24/22 07:20 68 16 112/59 98 11/25/22 06:42 97.7 F 66 16 113/56 96 Intake and Output 02/24/22 02/24/22 02/24/22 06:59 14:59 22:59 Intake Total 600 5202 Output Total 2200 Balance 600 3002 Intake: IV 600 5202 Output: Urine 300 Estimated Blood Loss 1900 Other: Weight 118.9 kg Results CBC & Chem 7: 02/24/22 18:04 02/24/22 18:04 Labs: Abnormal Lab Results - Last 24 Hours (Table) 02/24/22 02/24/22 02/24/22 Range/Units 14:24 14:53 17:32 WBC (3.8-10.6) k/uL RBC (3.80-5.40) m/uL Hgb (11.4-16.0) gm/dL Hct (34.0-46.0) % PT (9.0-12.0) sec INR (<1.2) APTT (22.0-30.0) sec ABG pH 7.28 L 7.31 L (7.35-7.45) ABG pCO2 <15 L* (35-45) mmHg ABG pO2 185 H 197 H (83-108) mmHg ABG HCO3 6 L* 18 L (21-25) mmol/L ABG O2 Saturation 99.5 H 99.7 H (94-97) % Sodium (137-145) mmol/L Chloride (98-107) mmol/L Carbon Dioxide (22-30) mmol/L Glucose (74-99) mg/dL POC Glucose (mg/dL) 229 H (70-110) mg/dL Calcium (8.4-10.2) mg/dL Magnesium (1.6-2.3) mg/dL AST (14-36) U/L ALT (4-34) U/L Total Protein (6.3-8.2) g/dL Albumin (3.5-5.0) g/dL 02/24/22 02/24/22 02/24/22 Range/Units 17:54 18:04 18:04 WBC 12.6 H (3.8-10.6) k/uL RBC 2.90 L (3.80-5.40) m/uL Hgb 8.8 L D (11.4-16.0) gm/dL Hct 26.8 L (34.0-46.0) % PT (9.0-12.0) sec INR (<1.2) APTT (22.0-30.0) sec ABG pH 7.19 L* (7.35-7.45) ABG pCO2 46 H (35-45) mmHg ABG pO2 167 H (83-108) mmHg ABG HCO3 18 L (21-25) mmol/L ABG O2 Saturation 99.5 H (94-97) % Sodium 136 L (137-145) mmol/L Chloride 108 H (98-107) mmol/L Carbon Dioxide 17 L (22-30) mmol/L Glucose 237 H (74-99) mg/dL POC Glucose (mg/dL) (70-110) mg/dL Calcium 7.4 L (8.4-10.2) mg/dL Magnesium 1.2 L (1.6-2.3) mg/dL AST 49 H (14-36) U/L ALT 38 H (4-34) U/L Total Protein 4.3 L (6.3-8.2) g/dL Albumin 2.6 L (3.5-5.0) g/dL 02/24/ Range/Units 18:04 WBC (3.8-10.6) k/uL RBC (3.80-5.40) m/uL Hgb (11.4-16.0) gm/dL Hct (34.0-46.0) % PT 12.5 H (9.0-12.0) sec INR 1.2 H (<1.2) APTT 19.9 L (22.0-30.0) sec ABG pH (7.35-7.45) ABG pCO2 (35-45) mmHg ABG pO2 (83-108) mmHg ABG HCO3 (21-25) mmol/L ABG O2 Saturation (94-97) % Sodium (137-145) mmol/L Chloride (98-107) mmol/L Carbon Dioxide (22-30) mmol/L Glucose (74-99) mg/dL POC Glucose (mg/dL) (70-110) mg/dL Calcium (8.4-10.2) mg/dL Magnesium (1.6-2.3) mg/dL AST (14-36) U/L ALT (4-34) U/L Total Protein (6.3-8.2) g/dL Albumin (3.5-5.0) g/dL
[2022-02-24] MEDS ORDERED: methylPREDNISolone SOD SUCCI 125 MG/2 ML VIAL IV STA (18:44)
[2022-02-24] MEDS ORDERED: FAMOTIDINE 20 MG/2 ML VIAL IV STA (18:44)
[2022-02-24] MEDS ORDERED: diphenhydrAMINE 50 MG/ML 1 ML VIAL IVP STA (18:44)
[2022-02-24] MEDS: ACETAMINOPHEN TAB 325 MG TAB PO SCH (18:46)
[2022-02-24] MEDS: NOREPINEPHRINE 4 MG in SODIUM CHLORIDE 0.9% 250 ML IV SCH (18:46)
[2022-02-24] MEDS: SODIUM CHLORIDE 0.9% 1,000 ML IV SCH (18:47)
[2022-02-24] MEDS: MAGNESIUM SULFATE-D5W PMX 1 GM in DEXTROSE/WATER 1 100ML.BAG IVPB SCH ×3 (20:28→22:33)
[2022-02-24] MEDS: POTASSIUM CHLORIDE 20 MEQ in WATER FOR INJECTION 1 100ML.BAG IVPB SCH ×2 (20:30→22:33)
[2022-02-25] MEDS: MAGNESIUM SULFATE-D5W PMX 1 GM in DEXTROSE/WATER 1 100ML.BAG IVPB SCH (00:23)
[2022-02-25] MEDS: ACETAMINOPHEN TAB 325 MG TAB PO SCH ×5 (00:28→23:24)
--- NOTE | 2022-02-25 00:28 | CT ---
EXAMINATION TYPE: CT angio chest DATE OF EXAM: 02/25/2022 COMPARISON: 06/02/2014 HISTORY: Pulmonary embolism, cardiac arrest during back surgery this morning. CT DLP: 1066.2 mGycm Automated exposure control for dose reduction was used. CONTRAST: Performed with IV Contrast, patient injected with 100 mL of Isovue 370. Images obtained from the thoracic inlet through the diaphragm with the IV contrast. There are Three-D postprocessed images. There is endotracheal tube. There is bilateral upper lobe patchy linear infiltrate and atelectasis. There is bilateral posterior lower lung field patchy linear infiltrate and atelectasis. Heart is enlarged. No pericardial effusion . Thoracic aorta is intact. No aneurysm or dissection. There is coronary artery calcification. No evidence of filling defect in the pulmonary arteries. The thoracic spine is intact. No compression fracture. Sternum is intact. There is posterior fusion surgery in the lower thoracic spine. There is posterior skin rito. IMPRESSION: No evidence of pulmonary embolism. Bilateral upper and lower lobe pulmonary linear infiltrate and ate lectasis. No suspicious pulmonary mass.
--- NOTE | 2022-02-25 00:37 | CT ---
EXAMINATION TYPE: CT thor lumbar spine wo con DATE OF EXAM: 02/25/2022 COMPARISON: None HISTORY: Pulmonary embolism, cardiac arrest during back surgery this morning. CT DLP: mGycm Automated exposure control for dose reduction was used. Images obtained from T1 to S1 vertebra without contrast. The thoracic and lumbar vertebra have normal alignment. There is multilevel posterior fusion surgery from T10 to S1 vertebra. There are rods and screws. There is disc prosthesis from L1 to S1. No signif icant compression deformity. Thoracic spine is intact. There is no thoracic paraspinal mass. There ar e some patchy bilateral upper lower lobe pulmonary infiltrate and atelectasis. There is posterior mul tiple skin rito. Exam limited by metal artifact. There is apparent multilevel laminectomy defect i n the lumbar spine. Sacroiliac joints are intact. There is mild compression deformity of the lumbar v ertebra from L1 to L4 up to 15%. There is osteopenia. IMPRESSION: Multilevel fusion surgery. No focal bone destruction. No complicating process seen.
[2022-02-25] MEDS: DEXAMETHASONE SOD PHOSPHATE 4 MG/ML 1 ML VIAL IVP SCH ×5 (01:07→23:25)
[2022-02-25 04:54] LABS: Basophils % (A) 0 %; Eosinophils % (A) 0 %; HGB 10.1 gm/dL (11.4-16.0); Lymphocytes # (A) 2.1 k/uL (1.0-4.8); Lymphocytes % (A) 14 %; MCH 29.7 pg (25.0-35.0); MCHC 33.6 g/dL (31.0-37.0); MCV 88.4 fL (80.0-100.0); Mean Platelet Volume 9.7; Monocytes # (A) 0.5 k/uL (0-1.0); Monocytes % (A) 4 %; Neutrophils # (A) 11.9 k/uL (1.3-7.7); Neutrophils % (A) 81 %; Platelet Count 232 k/uL (150-450); RBC 3.39 m/uL (3.80-5.40); WBC 14.7 k/uL (3.8-10.6)
[2022-02-25 05:11] LABS: ALT 30 U/L (4-34); AST 58 U/L (14-36); African American GFR (CKD) >90 (>60 ml/min/1.73 sqM); Albumin 3.3 g/dL (3.5-5.0); Alkaline Phosphatase 78 U/L (38-126); Anion Gap 6 mmol/L; Blood Urea Nitrogen 13 mg/dL (7-17); Calcium 8.1 mg/dL (8.4-10.2); Carbon Dioxide 23 mmol/L (22-30); Chloride 106 mmol/L (98-107); Glucose 166 mg/dL (74-99); Magnesium 2.3 mg/dL (1.6-2.3); Non-African American GFR(CKD) >90 (>60 ml/min/1.73 sqM); Phosphorus 3.5 mg/dL (2.5-4.5); Potassium 4.4 mmol/L (3.5-5.1); Sodium 135 mmol/L (137-145); Total Bilirubin 0.5 mg/dL (0.2-1.3); Total Protein 5.3 g/dL (6.3-8.2)
[2022-02-25] MEDS: LACTATED RINGERS 1,000 ML IV SCH (05:33)
[2022-02-25 05:54] LABS: ABG Base Excess -2.4 mmol/L; ABG HCO3 22 mmol/L (21-25); ABG Oxygen Saturation 99.9 % (94-97); ABG PCO2 35 mmHg (35-45); ABG PH 7.41 (7.35-7.45); ABG PO2 138 mmHg (83-108); ABG TCO2 23 mmol/L (19-24); Allen Test Performed? Yes
--- NOTE | 2022-02-25 06:57 | XR ---
EXAMINATION TYPE: XR chest 1V portable DATE OF EXAM: 02/25/2022 COMPARISON: 02/24/2022 HISTORY: Postsurgical evaluation TECHNIQUE: Single frontal view of the chest is obtained. FINDINGS: There is a right jugular central venous catheter tip which is in the right atrium. There is an NG tub e within the stomach. There is an ET tube 5.9 cm above the adiel. There are skin rito overlying t he left side chest. There are Miranda rods in the thoracic spine. There is persistent moderate elevation of the right hemidiaphragm. There is a persistent dense retrocardiac opacity consistent with atelectasis. The heart size is aparna l and the vasculature is not appear congested. There is no pneumothorax. IMPRESSION: Overall no significant interval change. ET tube is 5.9 cm above the adiel.
[2022-02-25] MEDS ORDERED: CHLORHEXIDINE GLUCONATE 15 ML CUP MUCOUS MEM SCH (09:00)
[2022-02-25] MEDS: HYDROmorphone 1 MG/ML 1 ML SYRINGE IVP PRN ×4 (09:41→20:33)
--- NOTE | 2022-02-25 09:44 | P.CNPUL ---
History of Present Illness Consult date: 02/24/22 Chief complaint: Cardiac arrest History of present illness: This is a morbidly obese 71-year-old female patient who underwent extensive lumbar spine surgery. The patient was brought into the intensive care unit intubated on a mechanical ventilator. Note that this was a prolonged surgery and the patient had significant changes and complications at the end of the procedure. I directed discussion with the surgeon and anesthesiologist. At the procedure was being completed, the patient was prone and she was being adequately ventilated. It was noted that the patient was in atrial fibrillation and she started going into rapid ventricular response and subsequently she became bradycardic. At that point, there was loss and at tidal volumes and the patient lost her pulse. Immediately, the patient was placed supine and CPR was initiated. The patient was given atropine and epinephrine. There was the gain of spiculation and pulse immediately within few minutes. Noted the patient received CPR. The surgical once was stapled and the patient was brought into the intensive care unit. At the time of arrival, she was in nature fibrillation still. She was not tachycardic. She was on a low-dose of norepinephrine infusion running at 0.05 g pH was sedated with propofol and she was a mechanical ventilator on assist control mode at the rate of 18, tidal volume of 400, FiO2 of 1% and a PEEP of 5. Chest x-ray showed small lung volumes, ET tube was in a good location. Some mild pulmonary vascular congestion. Otherwisedisease. No pneumothorax. Her lung volumes are small as the patient is morbidly obese with a BMI of 41. Blood gases showed a pH of 7.18 with a pCO2 of 46 and pO2 of 167. FiO2 was up to 80%. The patient's hemoglobin will be repeated. Preop hemoglobin was at 13.7. She is producing adequate urine output. Review of Systems ROS unobtainable: due to endotracheal tube Past Medical History Past Medical History: Atrial Fibrillation, Atrial Flutter, Cancer, Chest Pain / Angina, GERD/Reflux, Hyperlipidemia, Hypertension, Osteoarthritis (OA), Thyroid Disorder Additional Past Medical History / Comment(s): Rr breast cancer, hiatal hernia, chronic low back pain. partially paralyzed rt diaphragm, infection rt breast after surgery History of Any Multi-Drug Resistant Organisms: None Reported Past Surgical History: Back Surgery, Bladder Surgery, Breast Surgery, Cardiac Ablation, Cholecystectomy, EPS, Heart Catheterization, Hernia Repair, Hysterectomy, Joint Replacement, Orthopedic Surgery Additional Past Surgical History / Comment(s): R breast core bx/needle loc, R breast lumpectomy/axillary node dissection, CHATO, cardioversion, low back surgeries x3 with plate/screws, total R knee x3, R foot multiple surgeries for spur/neuromas, L foot cystectomy, R elbow injury w/ surgery, R wrist ganglion cystectomy, partial thyroidectomy, 4 abdominal hernia repairs, bladder suspension, colonoscopy, loki cataract, laser loki eye surgery 01/31/22 Past Anesthesia/Blood Transfusion Reactions: Previous Problems w/ Anesthesia, Postoperative Nausea & Vomiting (PONV) Additional Past Anesthesia/Blood Transfusion Reaction / Comment(s): On ventilator for 2 days after cardiac ablation d/t diaphragm paralysis-rt side Past Psychological History: Depression Additional Psychological History / Comment(s): . Smoking Status: Never smoker Past Alcohol Use History: Rare Past Drug Use History: None Reported - Past Family History Father Family Medical History: Cancer Additional Family Medical History / Comment(s): . Mother Family Medical History: Cancer, Deep Vein Thrombosis (DVT) Additional Family Medical History / Comment(s): Skin and breast cancer. Medications and Allergies Home Medications Medication Instructions Recorded Confirmed Type Levothyroxine Sodium [Synthroid] 88 mcg PO QAM 02/19/14 02/20/22 History HYDROcodone/APAP 10-325MG [[place] 1 tab PO Q4H PRN 12/23/18 02/20/22 History 10-325] Atorvastatin [Lipitor] 10 mg PO DAILY #30 tab 04/10/19 02/20/22 Rx atenoloL [Tenormin] 100 mg PO QAM 05/10/20 02/20/22 History Amlodipine Besylate/Valsartan 1 each PO QAM 02/02/22 02/20/22 History [[place] 5-320 mg Tablet] DULoxetine HCL [Cymbalta] 60 mg PO DAILY 02/02/22 02/20/22 History Rivaroxaban [Xarelto] 20 mg PO HS 02/02/22 02/20/22 History Rosuvastatin Calcium 10 mg PO QAM 02/02/22 02/20/22 History Allergies Allergy/AdvReac Type Severity Reaction Status Date / Time cephalexin monohydrate Allergy Mild Rash/Hives Verified 02/24/22 05:56 [From Keflex] Iodinated Contrast Media Allergy Mild Rash/Hives Verified 02/24/22 05:56 [Iodinated Contrast Media - IV Dye] Sulfa (Sulfonamide Allergy Mild Rash/Hives Verified 02/24/22 05:56 Antibiotics) adhesive tape AdvReac Severe Rash/Hives Uncoded 02/24/22 05:56 Physical Exam Vitals: Vital Signs Temp Pulse Resp BP BP Pulse Ox FiO2 02/24/22 18:02 80 02/24/22 17:40 100 02/24/22 07:20 68 16 112/59 98 02/24/22 06:42 97.7 F 66 16 113/56 96 Intake and Output 02/24/22 02/24/22 02/24/22 06:59 14:59 22:59 Intake Total 600 5202 Output Total 2200 Balance 600 3002 Intake: IV 600 5202 Output: Urine 300 Estimated Blood Loss 1900 Other: Weight 118.9 kg Morbidly obese, calm and comfortable not acute distress, intubated on a mechanical ventilator. Orogastric and orotracheal tube are both in place Head exam was generally normal. There was no scleral icterus or corneal arcus. Mucous membranes were moist. Neck was supple and without jugular venous distension, thyromegaly, or carotid bruits. Carotids were easily palpable bilaterally. There was no adenopathy. Lungs sounds are diminished bilaterally. Breath sounds are equal and symmetrical. Heart sounds are irregular, positive S2, SLIGHTLY TACHYCARDIC. No significant murmurs appreciated. Abdominal exam revealed normal bowel sounds. The abdomen was soft, non-tender, and without masses, organomegaly, or appreciable enlargement of the abdominal aorta. Examination of the extremities revealed easily palpable radial, femoral and pedal pulses. There was no cyanosis, clubbing or edema. Neurologically sedated, moving all 4 extremities to deep painful stimulation. He currently on propofol. Examination of the skin shows that the rito are intact on the incision over the lumbar spine. The patient has a Hemovac in place, output is minimal at this point in time. Results - Laboratory Findings CBC and BMP: 02/25/22 04:37 02/25/22 04:37 ABG ABG pH 7.19 (7.35-7.45) L* 02/24/22 17:54 ABG pCO2 46 mmHg (35-45) H 02/24/22 17:54 ABG pO2 167 mmHg (83-108) H 02/24/22 17:54 ABG O2 Saturation 99.5 % (94-97) H 02/24/22 17:54 PT/INR, D-dimer PT 10.6 sec (9.0-12.0) 02/21/22 16:07 INR 1.0 (<1.2) 02/21/22 16:07 Abnormal lab findings: Abnormal Labs 02/21/22 02/24/22 02/24/22 16:07 14:24 14:53 ABG pH 7.28 L 7.31 L ABG pCO2 <15 L* ABG pO2 185 H 197 H ABG HCO3 6 L* 18 L ABG O2 Saturation 99.5 H 99.7 H Glucose 117 H POC Glucose (mg/dL) 02/24/22 02/24/22 17:32 17:54 ABG pH 7.19 L* ABG pCO2 46 H ABG pO2 167 H ABG HCO3 18 L ABG O2 Saturation 99.5 H Glucose POC Glucose (mg/dL) 229 H - Diagnostic Findings Chest x-ray: image reviewed Assessment and Plan Plan: Lumbar decompression/fusion, multilevel, revision, patient is postop day #0. Cardiac arrest, brief PEA encountered in the operating room. Exact cause is not clear. It's possible the patient was losing her volumes and she was becoming progressively more acidotic, consider respiratory acidosis part of his cardiac arrest. The patient had PEA arrest, resuscitated Hypotension, likely cardiac in nature currently on low-dose norepinephrine Acute hypercapnic and hypoxic respiratory failure, currently intubated on a mechanical ventilator Morbid obesity with a BMI of 41.1 History of paralyzed or partially paralyzed right hemidiaphragm History of right-sided breast cancer Hiatal hernia Chronic atrial fibrillation Hypertension Hyperlipidemia Plan Keep the patient sedated Continue propofol Continue vent support Give 2 doses of sodium bicarbonate IV push and repeat electrolytes and repeat blood gases Dropped FiO2 down to 80% and gradually weaned down to maintain a saturation above 90% Monitor output from the ROSE drain Dilaudid for pain control Norepinephrine to maintain MAP above 60 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 Time with Patient: Greater than 30
--- NOTE | 2022-02-25 10:00 | P.PN ---
Subjective Progress Note Date: 02/25/22 Patient is a 71 yo CF with a hx of A fib s/p ablation, GERD, hypertension, dyslipidemia, and right diaphragmatic paralysis who presented for T10 to Pelvis decompression and fusion with revision. Blood loss and the case was approximately 1900 mL. During her operative course she required phenylephrine IV infusion, Vasopressin IVP. She also received TXA gtt. She received 7 L of lactated Ringer's. She received 1 amp of sodium bicarb intaop. She also received albumin. Her operative course was complicated with a cardiac arrest. During the case she developed A. fib with RVR and then quickly transitioned into bradycardia with a low end-tidal CO2. She received 0.4 of atropine and CPR was started. She received epinephrine 0.5. She achieved ROSC. Total down time was less than 5 minutes. Her levo was weaned overnight. During her sedation holiday she was responding appropriately. Patient seen and examined at bedside. She is currently sedated but does open eyes. No acute events overnight. Patient has remianed in A fib with HR 110-125. She typically is on atenolol which does not offer rate control, but no other rate or rhytm controlling medications. I have asked nursing to administer pain medications and observer HT response. General: ill apperating, mild distress, appears at stated age Derm: warm, dry Head: atraumatic, normocephalic, symmetric Eyes: EOMI, no lid lag, anicteric sclera Mouth: no lip lesion, mucus membranes moist Cardiovascular: S1S2 irreg and tachy, no murmur, positive posterior tibial pulse bilateral, Lungs: CTA bilateral, no rhonchi, no rales , no accessory muscle use, on vent Abdominal: soft, nontender to palpation, no guarding, no appreciable organome syl Ext: no gross muscle atrophy, no edema, no contractures Neuro: Opens eyes, and tracks movements, breathing over vent Psych: opens eyes appropraitly and appears calm Assessment/Plan: 71 yo F s/p T10 to pelvis decompression with fusion. Management per ortho. Aborted sudden cardiac - cardio consult pending - echo pending - tele Postoperative respiratory failure, anticipated outcome of surgery Right diaphragmatic paralysis -Management per critical care - weaning trial today Acute blood loss anemia, anticipated outcome of surgery -No indication for transfusion at this time -Follow CBC -Coags normal Permanent A fib - on xarelto held preop. Resume AC when Okay with spine - tele HLD - lipitor resume, hold crestor will need to diiscuss with patient indications for dual statin therapy. HTN - Resume Atenolol - hold amlodipine, losartan -Follow blood pressures Non-anion gap metbolic acidosis, resolved Hypomagnesemia, resolved Objective - Vital Signs Vital signs: Vital Signs Temp 98.2 F 02/25/22 08:00 Pulse 121 H 02/25/22 09:00 Resp 23 02/25/22 09:00 BP 128/76 02/25/22 09:00 Pulse Ox 96 02/25/22 09:00 FiO2 40 02/25/22 08:10 Intake & Output 02/24/22 02/25/22 02/25/22 18:59 06:59 18:59 Intake Total 5202 1462.316 100 Output Total 2200 1850 250 Balance 3002 -387.684 -150 Weight 131.4 kg Intake: IV 5202 1277 100 Magnesium Sulfate-D5w Pmx 400 1 gm In Dextrose/Water 1 100ml.bag @ 100 mls/hr IVPB Q1H MEHUL Rx#: [id number] Potassium Chloride 20 meq 200 In Water For Injection 1 100ml.bag @ 50 mls/hr IVPB Q2H ME[facility] Rx#: [id number] Pressure Bag 27 Sodium Chloride 0.9% 1, 550 100 000 ml @ 50 mls/hr IV . Q20H ME[facility] Rx#:[id number] ceFAZolin 2 gm In Sodium 100 Chloride 0.9% 50 ml @ 100 mls/hr IVPB Q8H MEHUL Rx#: [id number] Intake, IV Titration 185.316 Amount Norepinephrine 4 mg In 85.316 Sodium Chloride 0.9% 250 ml @ 0.03 MCG/KG/MIN 13. 59 mls/hr IV .[id number] ME[facility]UL Rx#:[id number] propofoL 1,000 mg In 100.000 Empty Bag 1 bag @ 15 MCG/ KG/MIN 10.701 mls/hr IV . Q9H21M MEHUL Rx#:[id number] Output: Gastric Drainage 350 100 Drainage 400 30 Back 1/2 suction Hemovac 390 20 Back Full Suction Hemovac 10 10 Urine 300 1100 120 Estimated Blood Loss 1900 Other: Voiding Method Indwelling Catheter Indwelling Catheter ABP, PAP, CO, CI - Last Documented Arterial Blood Pressure 97/74 - Labs CBC & Chem 7: 02/25/22 04:37 02/25/22 04:37 Labs: Abnormal Lab Results - Last 24 Hours (Table) 02/24/22 02/24/22 02/24/22 Range/Units 14:24 14:53 17:32 WBC (3.8-10.6) k/uL RBC (3.80-5.40) m/uL Hgb (11.4-16.0) gm/dL Hct (34.0-46.0) % Neutrophils # (1.3-7.7) k/uL PT (9.0-12.0) sec INR (<1.2) APTT (22.0-30.0) sec ABG pH 7.28 L 7.31 L (7.35-7.45) ABG pCO2 <15 L* (35-45) mmHg ABG pO2 185 H 197 H (83-108) mmHg ABG HCO3 6 L* 18 L (21-25) mmol/L ABG O2 Saturation 99.5 H 99.7 H (94-97) % Sodium (137-145) mmol/L Chloride (98-107) mmol/L Carbon Dioxide (22-30) mmol/L Glucose (74-99) mg/dL POC Glucose (mg/dL) 229 H (70-110) mg/dL Calcium (8.4-10.2) mg/dL Magnesium (1.6-2.3) mg/dL AST (14-36) U/L ALT (4-34) U/L Total Protein (6.3-8.2) g/dL Albumin (3.5-5.0) g/dL 02/24/22 02/24/22 02/24/22 Range/Units 17:54 18:04 18:04 WBC 12.6 H (3.8-10.6) k/uL RBC 2.90 L (3.80-5.40) m/uL Hgb 8.8 L D (11.4-16.0) gm/dL Hct 26.8 L (34.0-46.0) % Neutrophils # (1.3-7.7) k/uL PT (9.0-12.0) sec INR (<1.2) APTT (22.0-30.0) sec ABG pH 7.19 L* (7.35-7.45) ABG pCO2 46 H (35-45) mmHg ABG pO2 167 H (83-108) mmHg ABG HCO3 18 L (21-25) mmol/L ABG O2 Saturation 99.5 H (94-97) % Sodium 136 L (137-145) mmol/L Chloride 108 H (98-107) mmol/L Carbon Dioxide 17 L (22-30) mmol/L Glucose 237 H (74-99) mg/dL POC Glucose (mg/dL) (70-110) mg/dL Calcium 7.4 L (8.4-10.2) mg/dL Magnesium 1.2 L (1.6-2.3) mg/dL AST 49 H (14-36) U/L ALT 38 H (4-34) U/L Total Protein 4.3 L (6.3-8.2) g/dL Albumin 2.6 L (3.5-5.0) g/dL 02/24/22 02/25/22 02/25/22 Range/Units 18:04 04:37 04:37 WBC 14.7 H (3.8-10.6) k/uL RBC 3.39 L (3.80-5.40) m/uL Hgb 10.1 L (11.4-16.0) gm/dL Hct 30.0 L (34.0-46.0) % Neutrophils # 11.9 H (1.3-7.7) k/uL PT 12.5 H (9.0-12.0) sec INR 1.2 H (<1.2) APTT 19.9 L (22.0-30.0) sec ABG pH (7.35-7.45) ABG pCO2 (35-45) mmHg ABG pO2 (83-108) mmHg ABG HCO3 (21-25) mmol/L ABG O2 Saturation (94-97) % Sodium 135 L (137-145) mmol/L Chloride (98-107) mmol/L Carbon Dioxide (22-30) mmol/L Glucose 166 H (74-99) mg/dL POC Glucose (mg/dL) (70-110) mg/dL Calcium 8.1 L (8.4-10.2) mg/dL Magnesium (1.6-2.3) mg/dL AST 58 H (14-36) U/L ALT (4-34) U/L Total Protein 5.3 L (6.3-8.2) g/dL Albumin 3.3 L (3.5-5.0) g/dL 02/25/22 Range/Units 05:32 WBC (3.8-10.6) k/uL RBC (3.80-5.40) m/uL Hgb (11.4-16.0) gm/dL Hct (34.0-46.0) % Neutrophils # (1.3-7.7) k/uL PT (9.0-12.0) sec INR (<1.2) APTT (22.0-30.0) sec ABG pH (7.35-7.45) ABG pCO2 (35-45) mmHg ABG pO2 138 H (83-108) mmHg ABG HCO3 (21-25) mmol/L ABG O2 Saturation 99.9 H (94-97) % Sodium (137-145) mmol/L Chloride (98-107) mmol/L Carbon Dioxide (22-30) mmol/L Glucose (74-99) mg/dL POC Glucose (mg/dL) (70-110) mg/dL Calcium (8.4-10.2) mg/dL Magnesium (1.6-2.3) mg/dL AST (14-36) U/L ALT (4-34) U/L Total Protein (6.3-8.2) g/dL Albumin (3.5-5.0) g/dL
[2022-02-25] MEDS: DULoxetine HCL 60 MG CAPSULE.DR PO SCH (10:30)
[2022-02-25] MEDS: LEVOTHYROXINE 88 MCG TAB PO SCH (10:31)
[2022-02-25] MEDS: ATORVASTATIN 10 MG TAB PO SCH (10:31)
[2022-02-25] MEDS: atenoloL 50 MG TAB PO SCH (10:31)
--- NOTE | 2022-02-25 10:46 | P.PN ---
Subjective Progress Note Date: 02/25/22 Pt s/e this am in the ICU with the treatment team medicine and PCC. Pt did well overnight without any issues. She is maintained sedated with propofol and is only requiring small doses of pressors for support. Otherwise no issues. Her acidosis corrected and her deficit corrected. She is making urine, wiley is in place. She is on Vent managed by PCC. She will wean this AM. She opens her eyes to stimulation and nodds for yes and no but does not follow commands well yet as she is sedated. No signs of significant pain. Objective - Vital Signs Vital signs: Vital Signs Temp 98.2 F 02/25/22 08:00 Pulse 121 H 02/25/22 09:00 Resp 23 02/25/22 09:00 BP 128/76 02/25/22 09:00 Pulse Ox 96 02/25/22 09:00 FiO2 40 02/25/22 08:10 Intake & Output 02/24/22 02/25/22 02/25/22 18:59 06:59 18:59 Intake Total 5202 1462.316 100 Output Total 2200 1850 250 Balance 3002 -387.684 -150 Weight 131.4 kg Intake: IV 5202 1277 100 Magnesium Sulfate-D5w Pmx 400 1 gm In Dextrose/Water 1 100ml.bag @ 100 mls/hr IVPB Q1H [facility] Rx#: [id number] Potassium Chloride 20 meq 200 In Water For Injection 1 100ml.bag @ 50 mls/hr IVPB Q2H [facility] Rx#: [id number] Pressure Bag 27 Sodium Chloride 0.9% 1, 550 100 000 ml @ 50 mls/hr IV . Q20H [facility] Rx#:[id number] ceFAZolin 2 gm In Sodium 100 Chloride 0.9% 50 ml @ 100 mls/hr IVPB Q8H [facility] Rx#: [id number] Intake, IV Titration 185.316 Amount Norepinephrine 4 mg In 85.316 Sodium Chloride 0.9% 250 ml @ 0.03 MCG/KG/MIN 13. 59 mls/hr IV .[id number] [facility] Rx#:[id number] propofoL 1,000 mg In 100.000 Empty Bag 1 bag @ 15 MCG/ KG/MIN 10.701 mls/hr IV . Q9H21M [facility] Rx#:[id number] Output: Gastric Drainage 350 100 Drainage 400 30 Back 1/2 suction Hemovac 390 20 Back Full Suction Hemovac 10 10 Urine 300 1100 120 Estimated Blood Loss 1900 Other: Voiding Method Indwelling Catheter Indwelling Catheter ABP, PAP, CO, CI - Last Documented Arterial Blood Pressure 97/74 - Exam Vented Sedated, responds to stimulation, opens eyes. Does not follow commands yet. Pt was rolled and incision was inspected. The incision was cleaned with prep stick and additional rito were placed in her incision to complete the closure that was interrupted yesterday at the end of the case. Incision is CDI oth erwise without any signs of issues or drainage. Drains are in place. Deep drain had 400 cc out overnight sanguinous, no clear fluid. Superficial drain had 30 cc serous fluid. - EENT Eyes: Present: PERRLA - Cardiovascular Rhythm: regularly irregular - Allied health notes Allied health notes reviewed: nursing - Labs CBC & Chem 7: 02/25/22 04:37 02/25/22 04:37 Labs: Abnormal Lab Results - Last 24 Hours (Table) 02/24/22 02/24/22 02/24/22 Range/Units 14:24 14:53 17:32 WBC (3.8-10.6) k/uL RBC (3.80-5.40) m/uL Hgb (11.4-16.0) gm/dL Hct (34.0-46.0) % Neutrophils # (1.3-7.7) k/uL PT (9.0-12.0) sec INR (<1.2) APTT (22.0-30.0) sec ABG pH 7.28 L 7.31 L (7.35-7.45) ABG pCO2 <15 L* (35-45) mmHg ABG pO2 185 H 197 H (83-108) mmHg ABG HCO3 6 L* 18 L (21-25) mmol/L ABG O2 Saturation 99.5 H 99.7 H (94-97) % Sodium (137-145) mmol/L Chloride (98-107) mmol/L Carbon Dioxide (22-30) mmol/L Glucose (74-99) mg/dL POC Glucose (mg/dL) 229 H (70-110) mg/dL Calcium (8.4-10.2) mg/dL Magnesium (1.6-2.3) mg/dL AST (14-36) U/L ALT (4-34) U/L Total Protein (6.3-8.2) g/dL Albumin (3.5-5.0) g/dL 02/24/22 02/24/22 02/24/22 Range/Units 17:54 18:04 18:04 WBC 12.6 H (3.8-10.6) k/uL RBC 2.90 L (3.80-5.40) m/uL Hgb 8.8 L D (11.4-16.0) gm/dL Hct 26.8 L (34.0-46.0) % Neutrophils # (1.3-7.7) k/uL PT (9.0-12.0) sec INR (<1.2) APTT (22.0-30.0) sec ABG pH 7.19 L* (7.35-7.45) ABG pCO2 46 H (35-45) mmHg ABG pO2 167 H (83-108) mmHg ABG HCO3 18 L (21-25) mmol/L ABG O2 Saturation 99.5 H (94-97) % Sodium 136 L (137-145) mmol/L Chloride 108 H (98-107) mmol/L Carbon Dioxide 17 L (22-30) mmol/L Glucose 237 H (74-99) mg/dL POC Glucose (mg/dL) (70-110) mg/dL Calcium 7.4 L (8.4-10.2) mg/dL Magnesium 1.2 L (1.6-2.3) mg/dL AST 49 H (14-36) U/L ALT 38 H (4-34) U/L Total Protein 4.3 L (6.3-8.2) g/dL Albumin 2.6 L (3.5-5.0) g/dL 02/24/22 02/25/22 02/25/22 Range/Units 18:04 04:37 04:37 WBC 14.7 H (3.8-10.6) k/uL RBC 3.39 L (3.80-5.40) m/uL Hgb 10.1 L (11.4-16.0) gm/dL Hct 30.0 L (34.0-46.0) % Neutrophils # 11.9 H (1.3-7.7) k/uL PT 12.5 H (9.0-12.0) sec INR 1.2 H (<1.2) APTT 19.9 L (22.0-30.0) sec ABG pH (7.35-7.45) ABG pCO2 (35-45) mmHg ABG pO2 (83-108) mmHg ABG HCO3 (21-25) mmol/L ABG O2 Saturation (94-97) % Sodium 135 L (137-145) mmol/L Chloride (98-107) mmol/L Carbon Dioxide (22-30) mmol/L Glucose 166 H (74-99) mg/dL POC Glucose (mg/dL) (70-110) mg/dL Calcium 8.1 L (8.4-10.2) mg/dL Magnesium (1.6-2.3) mg/dL AST 58 H (14-36) U/L ALT (4-34) U/L Total Protein 5.3 L (6.3-8.2) g/dL Albumin 3.3 L (3.5-5.0) g/dL 02/25/22 Range/Units 05:32 WBC (3.8-10.6) k/uL RBC (3.80-5.40) m/uL Hgb (11.4-16.0) gm/dL Hct (34.0-46.0) % Neutrophils # (1.3-7.7) k/uL PT (9.0-12.0) sec INR (<1.2) APTT (22.0-30.0) sec ABG pH (7.35-7.45) ABG pCO2 (35-45) mmHg ABG pO2 138 H (83-108) mmHg ABG HCO3 (21-25) mmol/L ABG O2 Saturation 99.9 H (94-97) % Sodium (137-145) mmol/L Chloride (98-107) mmol/L Carbon Dioxide (22-30) mmol/L Glucose (74-99) mg/dL POC Glucose (mg/dL) (70-110) mg/dL Calcium (8.4-10.2) mg/dL Magnesium (1.6-2.3) mg/dL AST (14-36) U/L ALT (4-34) U/L Total Protein (6.3-8.2) g/dL Albumin (3.5-5.0) g/dL Assessment and Plan Assessment: POD 1 Revision H26-Neskir decompression fusion Prolonged ventilated recovery, expected from surgery Plan: -Appreciated ICU, med and team management -Pain control PRN -ICU wean to extubate today -Maintain MAP 80s -OK for Heparin or to go back on Xarelto tonight -OK to roll. HOB 10deg. Monitor for LOZANO, blurred vision, N/V. If any sx, lay flat again -Deep drain to gravity, Superficial to full suction -Dressing changed today, incision is CDI -Cont abx post op -Decadron OK -PT/OT when awake and stable Family updated spoke with Matthias and oldest son about her condition and expected course. She is doing well today and we will see how she is once extubated. Full neuro exam once awake and stable.
[2022-02-25] MEDS ORDERED: HYDROmorphone 1 MG/ML 1 ML SYRINGE IVP STA (11:52)
--- NOTE | 2022-02-25 12:10 | P.PN ---
Subjective Progress Note Date: 02/25/22 Is evaluation of 02/25/2022, the patient is being seen for a follow-up in the intensive care unit. The patient is post laminectomy and fusion/decompression of the spine and this was done on multiple levels. The patient overnight was kept on a mechanical ventilator. This morning, the patient is on propofol which is running at 35 mcg/kg/m. The patient is well sedated and the patient is quite sick sinus with a mechanical ventilator. The patient is requiring no pressors. The patient on normal saline in the at the rate of 50 mL an hour. The patient is on a mechanical ventilator on assist control mode at the rate of 18, tidal volume of 450, FiO2 of 40% with a PEEP of 5. The blood gas from today showed a pH of 7.41 with a pCO2 of 35 and pO2 of 138. Chest x-ray shows smaller lung volumes, some mild elevation of the right hemidiaphragm. ET tube is sitting just at the level of the aortic knob. No evidence of any pneumothorax. No airspace disease or consolidations. The patient also had a CT angiogram that showed no evidence of any pulmonary embolism. That showed atelectatic change in lung bases and various up other lung segments. No effusion. No lung collapse. CAT scan of the lumbosacral spine was also completed. The surgical one-sided dry clean and intact. The Hemovac output is bloody and its minimal at this point in time. The patient is afebrile. The patient is in atrial fibrillation. Rate is controlled. The patient is receiving Dilaudid for pain control.Blood work from today shows a white cell count of 14.7 with a hemoglobin of 10.1 and a platelet count of 232. The patient also has a sodium level of 135, potassium level of 4.4, chloride is 106 with a bicarb of 23 and a BUN of 15 and a creatinine of 0.5. Objective - Vital Signs Vital signs: Vital Signs Temp 98.2 F 02/25/22 08:00 Pulse 115 H 02/25/22 11:00 Resp 13 02/25/22 11:00 BP 113/71 02/25/22 11:00 Pulse Ox 95 02/25/22 11:00 FiO2 40 02/25/22 11:10 Intake & Output 11/25/22 11/26/22 11/26/22 18:59 06:59 18:59 Intake Total 5202 1462.316 259.926 Output Total 2200 1850 360 Balance 3002 -387.684 -100.074 Weight 131.4 kg Intake: IV 5202 1277 200 Magnesium Sulfate-D5w Pmx 400 1 gm In Dextrose/Water 1 100ml.bag @ 100 mls/hr IVPB Q1H ME[facility] Rx#: [id number] Potassium Chloride 20 meq 200 In Water For Injection 1 100ml.bag @ 50 mls/hr IVPB Q2H ME[facility]UL Rx#: [id number] Pressure Bag 27 Sodium Chloride 0.9% 1, 550 200 000 ml @ 50 mls/hr IV . Q20H ME[facility] Rx#:[id number] ceFAZolin 2 gm In Sodium 100 Chloride 0.9% 50 ml @ 100 mls/hr IVPB Q8H ME[facility]UL Rx#: [id number] Intake, IV Titration 185.316 59.926 Amount Norepinephrine 4 mg In 85.316 Sodium Chloride 0.9% 250 ml @ 0.03 MCG/KG/MIN 13. 59 mls/hr IV .[id number] ME[facility] Rx#:[id number] propofoL 1,000 mg In 100.000 59.926 Empty Bag 1 bag @ 15 MCG/ KG/MIN 10.701 mls/hr IV . Q9H21M MEHUL Rx#:[id number] Output: Gastric Drainage 350 100 Drainage 400 30 Back 1/2 suction Hemovac 390 20 Back Full Suction Hemovac 10 10 Urine 300 1100 230 Estimated Blood Loss 1900 Other: Voiding Method Indwelling Catheter Indwelling Catheter ABP, PAP, CO, CI - Last Documented Arterial Blood Pressure 97/74 - Exam Morbidly obese, calm and comfortable not acute distress, intubated on a mechanical ventilator. Orogastric and orotracheal tube are both in place Head exam was generally normal. There was no scleral icterus or corneal arcus. Mucous membranes were moist. Neck was supple and without jugular venous distension, thyromegaly, or carotid bruits. Carotids were easily palpable bilaterally. There was no adenopathy. Lungs sounds are diminished bilaterally. Breath sounds are equal and sym metrical. Heart sounds are irregular, positive S2, SLIGHTLY TACHYCARDIC. No significant murmurs appreciated. Abdominal exam revealed normal bowel sounds. The abdomen was soft, non-tender, and without masses, organomegaly, or appreciable enlargement of the abdominal aorta. Examination of the extremities revealed easily palpable radial, femoral and pedal pulses. There was no cyanosis, clubbing or edema. Neurologically sedated, moving all 4 extremities to deep painful stimulation. He currently on propofol. Examination of the skin shows that the rito are intact on the incision over the lumbar spine. The patient has a Hemovac in place, output is minimal at this point in time. - Labs CBC & Chem 7: 02/25/22 04:37 02/25/22 04:37 Labs: Abnormal Lab Results - Last 24 Hours (Table) 02/24/22 02/24/22 02/24/22 Range/Units 14:24 14:53 17:32 WBC (3.8-10.6) k/uL RBC (3.80-5.40) m/uL Hgb (11.4-16.0) gm/dL Hct (34.0-46.0) % Neutrophils # (1.3-7.7) k/uL PT (9.0-12.0) sec INR (<1.2) APTT (22.0-30.0) sec ABG pH 7.28 L 7.31 L (7.35-7.45) ABG pCO2 <15 L* (35-45) mmHg ABG pO2 185 H 197 H (83-108) mmHg ABG HCO3 6 L* 18 L (21-25) mmol/L ABG O2 Saturation 99.5 H 99.7 H (94-97) % Sodium (137-145) mmol/L Chloride (98-107) mmol/L Carbon Dioxide (22-30) mmol/L Glucose (74-99) mg/dL POC Glucose (mg/dL) 229 H (70-110) mg/dL Calcium (8.4-10.2) mg/dL Magnesium (1.6-2.3) mg/dL AST (14-36) U/L ALT (4-34) U/L Total Protein (6.3-8.2) g/dL Albumin (3.5-5.0) g/dL 02/24/22 02/24/22 02/24/22 Range/Units 17:54 18:04 18:04 WBC 12.6 H (3.8-10.6) k/uL RBC 2.90 L (3.80-5.40) m/uL Hgb 8.8 L D (11.4-16.0) gm/dL Hct 26.8 L (34.0-46.0) % Neutrophils # (1.3-7.7) k/uL PT (9.0-12.0) sec INR (<1.2) APTT (22.0-30.0) sec ABG pH 7.19 L* (7.35-7.45) ABG pCO2 46 H (35-45) mmHg ABG pO2 167 H (83-108) mmHg ABG HCO3 18 L (21-25) mmol/L ABG O2 Saturation 99.5 H (94-97) % Sodium 136 L (137-145) mmol/L Chloride 108 H (98-107) mmol/L Carbon Dioxide 17 L (22-30) mmol/L Glucose 237 H (74-99) mg/dL POC Glucose (mg/dL) (70-110) mg/dL Calcium 7.4 L (8.4-10.2) mg/dL Magnesium 1.2 L (1.6-2.3) mg/dL AST 49 H (14-36) U/L ALT 38 H (4-34) U/L Total Protein 4.3 L (6.3-8.2) g/dL Albumin 2.6 L (3.5-5.0) g/dL 02/24/22 02/25/22 02/25/22 Range/Units 18:04 04:37 04:37 WBC 14.7 H (3.8-10.6) k/uL RBC 3.39 L (3.80-5.40) m/uL Hgb 10.1 L (11.4-16.0) gm/dL Hct 30.0 L (34.0-46.0) % Neutrophils # 11.9 H (1.3-7.7) k/uL PT 12.5 H (9.0-12.0) sec INR 1.2 H (<1.2) APTT 19.9 L (22.0-30.0) sec ABG pH (7.35-7.45) ABG pCO2 (35-45) mmHg ABG pO2 (83-108) mmHg ABG HCO3 (21-25) mmol/L ABG O2 Saturation (94-97) % Sodium 135 L (137-145) mmol/L Chloride (98-107) mmol/L Carbon Dioxide (22-30) mmol/L Glucose 166 H (74-99) mg/dL POC Glucose (mg/dL) (70-110) mg/dL Calcium 8.1 L (8.4-10.2) mg/dL Magnesium (1.6-2.3) mg/dL AST 58 H (14-36) U/L ALT (4-34) U/L Total Protein 5.3 L (6.3-8.2) g/dL Albumin 3.3 L (3.5-5.0) g/dL 02/25/22 Range/Units 05:32 WBC (3.8-10.6) k/uL RBC (3.80-5.40) m/uL Hgb (11.4-16.0) gm/dL Hct (34.0-46.0) % Neutrophils # (1.3-7.7) k/uL PT (9.0-12.0) sec INR (<1.2) APTT (22.0-30.0) sec ABG pH (7.35-7.45) ABG pCO2 (35-45) mmHg ABG pO2 138 H (83-108) mmHg ABG HCO3 (21-25) mmol/L ABG O2 Saturation 99.9 H (94-97) % Sodium (137-145) mmol/L Chloride (98-107) mmol/L Carbon Dioxide (22-30) mmol/L Glucose (74-99) mg/dL POC Glucose (mg/dL) (70-110) mg/dL Calcium (8.4-10.2) mg/dL Magnesium (1.6-2.3) mg/dL AST (14-36) U/L ALT (4-34) U/L Total Protein (6.3-8.2) g/dL Albumin (3.5-5.0) g/dL Assessment and Plan Plan: Lumbar decompression/fusion, multilevel, revision, patient is postop day #1 patient was kept intubated on a mechanical ventilator overnight. Acute hypoxic/hypercapnic respiratory failure, the patient remains intubated on a mechanical ventilator. Chest x-ray was noted. CT angiogram was noted. There is some bilateral atelectatic changes. No evidence of any pulmonary embolism. The patient has no pneumonia. The patient be able to wean off further off the mechanical ventilator. Non-anion gap metabolic acidosis, recovered and the bicarb deficit has been replaced Cardiac arrest, brief PEA encountered in the operating room. Exact cause is not clear. It's possible the patient was losing her volumes and she was becoming progressively more acidotic, consider respiratory acidosis part of his cardiac arrest. The patient had PEA arrest, resuscitated Hypotension, likely cardiac in nature currently on low-dose norepinephrine, cu rrently off pressors Morbid obesity with a BMI of 41.1 History of paralyzed or partially paralyzed right hemidiaphragm History of right-sided breast cancer Hiatal hernia Chronic atrial fibrillation Hypertension Hyperlipidemia Plan Wean off propofol Check weaning parameters Possible extubation today if the weaning parameters are adequate Use Decadron for upper airway swelling Discontinue the bicarb infusion Surgical one-sided dry clean and intact ROSE drain is in place Patient is currently off pressors Dilaudid for pain control Possible extubation today Follow-up with spine surgery We'll continue to follow. This evaluation was done in more than 30 minutes and this is a critical care evaluation. Time with Patient: Greater than 30
--- NOTE | 2022-02-25 12:49 | P.CRDCN ---
History of Present Illness History of present illness: HISTORY OF PRESENTING ILLNESS Patient is pleasant 71-year-old female with history of atrial flutter, atrial fibrillation, hypertension, hyperlipidemia, a number back issues who presented for elective back surgery. She did have complicated long procedure. She has been noted to be in atrial flutter throughout the case however started noticing decrease in heart rate and patient became bradycardic with heart rates into the 20s and 30s. CODE BLUE was called and patient received brief round of CPR as well as atropine and epinephrine with improvement in heart rates. Initial ABG showed severe acidosis with bicarb 6, pCO2 less than 15 and pH 7.2. Blood work showed potassium 4.2, BUN 15, creatinine 0.5. She was left on ventilator overnight and extubated this morning and propofol was discontinued approximately an hour to an hour and half ago. Currently she admits to burning sensation around her spinal incision however no chest pain or pressure. She denies any prior lightheadedness or syncope. Currently remains in atrial flutter with heart rates in the 100s to 120s. She is on atenolol at home. REVIEW OF SYSTEMS At the time of my exam: CONSTITUTIONAL: Denies fever or chills. CARDIOVASCULAR: Denies chest pain, shortness of breath, orthopnea, PND or palpitations. RESPIRATORY: Denies cough. GASTROINTESTINAL: Denies abdominal pain, diarrhea, constipation, nausea or vomiting. MUSCULOSKELETAL: Denies myalgias. NEUROLOGIC: Denies numbness, tingling or weakness. ENDOCRINE: Denies fatigue, weight change, polydipsia or polyurina. GENITOURINARY: Denies burning, hematuria or urgency with micturation. HEMATOLOGIC: Denies history of anemia or bleeding. PHYSICAL EXAMINATION Vital signs reviewed. CONSTITUTIONAL: No apparent distress. HEENT: Head is normocephalic. Pupils are equal, round. Sclerae anicteric. Mucous membranes of the mouth are moist. No JVD. No carotid bruit. CHEST EXAMINATION: Lungs are clear to auscultation. No chest wall tenderness is noted on palpation or with deep breathing. HEART EXAMINATION: Regular rate and rhythm. S1, S2 heard. No murmurs, gallops or rub. ABDOMEN: Soft, nontender. Positive bowel sounds. EXTREMITIES: 2+ peripheral pulses, no lower extremity edema and no calf tenderness. NEUROLOGIC EXAMINATION: Patient is awake, alert and oriented x3. ASSESSMENT 1. Atrial flutter with severe bradycardic episode and of the 20s to 30s status post brief round of CPR. Appears mainly related to severe metabolic derangements with severe acidosis during surgery 2. Atrial flutter currently mild RVR 3. Status post back surgery 4. Hypertension 5. Hyperlipidemia PLAN Patient is having significant pain currently which is likely exacerbating her RVR. Continue with home atenolol and add Cardizem. Patient with significant bradycardic episode however severe metabolic derangements with severe acidosis bicarb 6. Do not suspect underlying SSS and no current need for PPM. Continue to monitor. Past Medical History Past Medical History: Atrial Fibrillation, Atrial Flutter, Cancer, Chest Pain / Angina, GERD/Reflux, Hyperlipidemia, Hypertension, Osteoarthritis (OA), Thyroid Disorder Additional Past Medical History / Comment(s): Rr breast cancer, hiatal hernia, chronic low back pain. partially paralyzed rt diaphragm, infection rt breast after surgery History of Any Multi-Drug Resistant Organisms: None Reported Past Surgical History: Back Surgery, Bladder Surgery, Breast Surgery, Cardiac Ablation, Cholecystectomy, EPS, Heart Catheterization, Hernia Repair, Hysterectomy, Joint Replacement, Orthopedic Surgery Additional Past Surgical History / Comment(s): R breast core bx/needle loc, R breast lumpectomy/axillary node dissection, CHATO, cardioversion, low back surgeries x3 with plate/screws, total R knee x3, R foot multiple surgeries for spur/neuromas, L foot cystectomy, R elbow injury w/ surgery, R wrist ganglion cystectomy, partial thyroidectomy, 4 abdominal hernia repairs, bladder suspension, colonoscopy, loki cataract, laser loki eye surgery 01/31/22 Past Anesthesia/Blood Transfusion Reactions: Previous Problems w/ Anesthesia, Postoperative Nausea & Vomiting (PONV) Additional Past Anesthesia/Blood Transfusion Reaction / Comment(s): On ventilator for 2 days after cardiac ablation d/t diaphragm paralysis-rt side Past Psychological History: Depression Additional Psychological History / Comment(s): . Smoking Status: Never smoker Past Alcohol Use History: Rare Past Drug Use History: None Reported - Past Family History Father Family Medical History: Cancer Additional Family Medical History / Comment(s): . Mother Family Medical History: Cancer, Deep Vein Thrombosis (DVT) Additional Family Medical History / Comment(s): Skin and breast cancer. Medications and Allergies Home Medications Medication Instructions Recorded Confirmed Type Levothyroxine Sodium [Synthroid] 88 mcg PO QAM 02/19/14 02/20/22 History HYDROcodone/APAP 10-325MG [Prospect 1 tab PO Q4H PRN 12/23/18 02/20/22 History 10-325] Atorvastatin [Lipitor] 10 mg PO DAILY #30 tab 04/10/19 02/20/22 Rx atenoloL [Tenormin] 100 mg PO QAM 05/10/20 02/20/22 History Amlodipine Besylate/Valsartan 1 each PO QAM 02/02/22 02/20/22 History [Exforge 5-320 mg Tablet] DULoxetine HCL [Cymbalta] 60 mg PO DAILY 02/02/22 02/20/22 History Rivaroxaban [Xarelto] 20 mg PO HS 02/02/22 02/20/22 History Rosuvastatin Calcium 10 mg PO QAM 02/02/22 02/20/22 History Allergies Allergy/AdvReac Type Severity Reaction Status Date / Time cephalexin monohydrate Allergy Mild Rash/Hives Verified 02/24/22 05:56 [From Keflex] Iodinated Contrast Media Allergy Mild Rash/Hives Verified 02/24/22 05:56 [Iodinated Contrast Media - IV Dye] Sulfa (Sulfonamide Allergy Mild Rash/Hives Verified 02/24/22 05:56 Antibiotics) adhesive tape AdvReac Severe Rash/Hives Uncoded 02/24/22 05:56 Physical Exam Vitals: Vital Signs Temp Pulse Pulse Resp BP Pulse Ox FiO2 02/25/22 11:10 40 02/25/22 11:00 115 H 13 113/71 95 02/25/22 10:00 112 H 19 131/80 96 02/25/22 09:00 121 H 23 128/76 96 02/25/22 08:10 40 02/25/22 08:00 98.2 F 110 H 25 H 132/76 96 40 02/25/22 07:10 40 02/25/22 07:00 109 H 25 H 129/59 97 02/25/22 06:00 102 H 27 H 134/76 99 02/25/22 05:59 40 02/25/22 05:00 93 22 115/76 98 02/25/22 04:00 98.2 F 95 21 115/61 100 60 02/25/22 03:10 60 02/25/22 03:00 94 13 124/92 100 02/25/22 02:00 94 20 107/88 98 02/25/22 01:00 84 18 139/63 98 02/25/22 00:00 97.8 F 18 60 02/24/22 23:22 60 02/24/22 23:00 84 21 127/58 98 02/24/22 22:29 60 02/24/22 22:00 84 21 115/61 99 02/24/22 21:00 18 123/64 100 02/24/22 20:45 80 12 130/65 99 02/24/22 20:30 85 22 135/68 99 02/24/22 20:15 80 37 H 145/71 99 02/24/22 20:00 98.2 F 84 68 18 128/70 99 60 02/24/22 19:45 90 19 130/63 98 02/24/22 19:30 90 18 133/93 98 02/24/22 19:18 60 02/24/22 19:15 90 18 122/88 98 02/24/22 19:00 88 18 130/80 98 60 02/24/22 18:45 89 18 99 02/24/22 18:30 89 18 99 02/24/22 18:15 90 18 106/83 99 02/24/22 18:02 80 02/24/22 18:00 112 H 18 100 02/24/22 17:55 96.7 F L 113 H 18 108/62 100 100 02/24/22 17:40 100 Intake and Output 02/24/22 02/25/22 02/25/22 22:59 06:59 14:59 Intake Total 759.566 702.750 259.926 Output Total 900 950 360 Balance -140.434 -247.250 -100.074 Intake: IV 712 565 200 Magnesium Sulfate-D5w Pmx 300 100 1 gm In Dextrose/Water 1 100ml.bag @ 100 mls/hr IVPB Q1H [facility] Rx#: [id number] Potassium Chloride 20 meq 200 In Water For Injection 1 100ml.bag @ 50 mls/hr IVPB Q2H [facility] Rx#: [id number] Pressure Bag 12 15 Sodium Chloride 0.9% 1, 150 400 200 000 ml @ 50 mls/hr IV . Q20H [facility] Rx#:[id number] ceFAZolin 2 gm In Sodium 50 50 Chloride 0.9% 50 ml @ 100 mls/hr IVPB Q8H [facility] Rx#: [id number] Intake, IV Titration 47.566 137.750 59.926 Amount Norepinephrine 4 mg In 47.566 37.75 Sodium Chloride 0.9% 250 ml @ 0.03 MCG/KG/MIN 13. 59 mls/hr IV .[id number] ME[facility]UL Rx#:[id number] propofoL 1,000 mg In 100.000 59.926 Empty Bag 1 bag @ 15 MCG/ KG/MIN 10.701 mls/hr IV . Q9H21M ME[facility]UL Rx#:[id number] Output: Gastric Drainage 350 100 Drainage 205 195 30 Back 1/2 suction Hemovac 200 190 20 Back Full Suction Hemovac 5 5 10 Urine 695 405 230 Other: Voiding Method Indwelling Catheter Indwelling Catheter Indwelling Catheter Weight 131.4 kg Results 02/25/22 04:37 02/25/22 04:37 Cardiac Enzymes 02/24/22 02/25/22 Range/Units 18:04 04:37 AST 49 H 58 H (14-36) U/L Coagulation 02/24/22 Range/Units 18:04 PT 12.5 H (9.0-12.0) sec APTT 19.9 L (22.0-30.0) sec CBC 02/24/22 02/25/22 Range/Units 18:04 04:37 WBC 12.6 H 14.7 H (3.8-10.6) k/uL RBC 2.90 L 3.39 L (3.80-5.40) m/uL Hgb 8.8 L D 10.1 L (11.4-16.0) gm/dL Hct 26.8 L 30.0 L (34.0-46.0) % Plt Count 203 232 (150-450) k/uL Comprehensive Metabolic Panel 02/24/22 02/25/22 Range/Units 18:04 04:37 Sodium 136 L 135 L (137-145) mmol/L Potassium 3.6 4.4 (3.5-5.1) mmol/L Chloride 108 H 106 (98-107) mmol/L Carbon Dioxide 17 L 23 (22-30) mmol/L BUN 11 13 (7-17) mg/dL Creatinine 0.62 0.56 (0.52-1.04) mg/dL Glucose 237 H 166 H (74-99) mg/dL Calcium 7.4 L 8.1 L (8.4-10.2) mg/dL AST 49 H 58 H (14-36) U/L ALT 38 H 30 (4-34) U/L Alkaline Phosphatase 57 78 (38-126) U/L Total Protein 4.3 L 5.3 L (6.3-8.2) g/dL Albumin 2.6 L 3.3 L (3.5-5.0) g/dL Current Medications Generic Name Dose Route Start Last Admin Trade Name Freq PRN Reason Stop Dose Admin Acetaminophen 650 mg 02/24/22 18:00 02/25/22 11:47 Acetaminophen Tab 325 Mg Tab PO Not Given Q6HR MEHUL Hydrocodone Bitart/Acetaminophen 1 each 02/24/22 17:33 Hydrocodone/Apap 5-325mg 1 Each Tab PO Q6HR PRN Pain Scale 4 - 6 Hydrocodone Bitart/Acetaminophen 1 each 02/24/22 17:33 02/25/22 11:06 Hydrocodone/Apap 10-325mg 1 Each Tab PO 1 each Q6H PRN Administration Pain Scale 7 - 10 Atenolol 100 mg 02/25/22 10:00 02/25/22 10:31 Atenolol 50 Mg Tab PO 100 mg QAM MEHUL Administration Atorvastatin Calcium 10 mg 02/25/22 09:45 02/25/22 10:31 Atorvastatin 10 Mg Tab PO 10 mg DAILY MEHUL Administration Chlorhexidine Gluconate 15 ml 02/25/22 09:00 02/25/22 08:20 Chlorhexidine Gluconate 15 Ml Cup MUCOUS MEM 15 ml BID MEHUL Administration Cyclobenzaprine HCl 10 mg 02/24/22 17:33 Cyclobenzaprine 10 Mg Tab PO TID PRN Muscle Spasm Dexamethasone Sodium Phosphate 4 mg 02/24/22 18:00 02/25/22 06:17 Dexamethasone Sod Phosphate 4 Mg/Ml 1 Ml Vial IVP 4 mg Q6HR MEHUL Administration Duloxetine HCl 60 mg 02/25/22 09:45 02/25/22 10:30 Duloxetine Hcl 60 Mg Capsule.Dr PO Not Given DAILY MEHUL Hydromorphone HCl 0.5 mg 02/24/22 17:33 Hydromorphone 0.5 Mg/0.5 Ml Syringe IVP Q3HR PRN Pain Scale 4 - 6 Hydromorphone HCl 1 mg 02/24/22 17:33 02/25/22 09:41 Hydromorphone 1 Mg/Ml 1 Ml Syringe IVP 1 mg Q3HR PRN Administration Pain Scale of 7 - 10 Lactated Ringer's 1,000 mls @ 20 mls/hr 02/24/22 05:34 02/25/22 05:33 Lactated Ringers IV Not Given .Q24H MEHUL Norepinephrine Bitartrate 4 mg 254 mls @ 13.59 mls/hr 02/24/22 17:15 02/25/22 01:20 / Sodium Chloride IV 0 mcg/kg/min .[id number] MEHUL 0 mls/hr Titration Protocol 0.03 MCG/KG/MIN Cefazolin Sodium 2 gm/ Sodium 50 mls @ 100 mls/hr 02/24/22 20:00 02/25/22 04:15 Chloride IVPB 03/03/22 04:29 100 mls/hr Q8H MEHUL Administration Protocol Sodium Chloride 1,000 mls @ 50 mls/hr 02/24/22 18:45 02/24/22 18:47 Saline 0.9% IV 50 mls/hr .Q20H MEHUL Administration Propofol 1,000 mg/ IV Solution 100 mls @ 10.701 mls/hr 02/24/22 22:30 02/25/22 11:00 IV 0 mcg/kg/min .Q9H21M MEHUL 0 mls/hr Titration Protocol 15 MCG/KG/MIN Levothyroxine Sodium 88 mcg 02/25/22 09:45 02/25/22 10:31 Levothyroxine 88 Mcg Tab PO 88 mcg 0630 MEHUL Administration Magnesium Hydroxide 2,400 mg 02/24/22 17:33 Magnesium Hydroxide 2,400 Mg/10 Ml Cup PO DAILY PRN Constipation Ondansetron HCl 4 mg 02/24/22 17:33 Ondansetron 4 Mg/2 Ml Vial IVP Q8HR PRN Nausea And Vomiting Senna/Docusate Sodium 2 each 02/24/22 17:33 Sennosides-Docusate Sodium 1 Each Tab PO DAILY PRN Constipation Intake and Output 11/02/25/22 02/25/22 22:59 06:59 14:59 Intake Total 759.566 702.750 259.926 Output Total 900 950 360 Balance -140.434 -247.250 -100.074 Intake: IV 712 565 200 Magnesium Sulfate-D5w Pmx 300 100 1 gm In Dextrose/Water 1 100ml.bag @ 100 mls/hr IVPB Q1H MEUHL Rx#: [id number] Potassium Chloride 20 meq 200 In Water For Injection 1 100ml.bag @ 50 mls/hr IVPB Q2H MEHUL Rx#: [id number] Pressure Bag 12 15 Sodium Chloride 0.9% 1, 150 400 200 000 ml @ 50 mls/hr IV . Q20H MEHUL Rx#:[id number] ceFAZolin 2 gm In Sodium 50 50 Chloride 0.9% 50 ml @ 100 mls/hr IVPB Q8H MEHUL Rx#: [id number] Intake, IV Titration 47.566 137.750 59.926 Amount Norepinephrine 4 mg In 47.566 37.75 Sodium Chloride 0.9% 250 ml @ 0.03 MCG/KG/MIN 13. 59 mls/hr IV .[id number] MEHUL Rx#:[id number] propofoL 1,000 mg In 100.000 59.926 Empty Bag 1 bag @ 15 MCG/ KG/MIN 10.701 mls/hr IV . Q9H21M MEHUL Rx#:[id number] Output: Gastric Drainage 350 100 Drainage 205 195 30 Back 1/2 suction Hemovac 200 190 20 Back Full Suction Hemovac 5 5 10 Urine 695 405 230 Other: Voiding Method Indwelling Catheter Indwelling Catheter Indwelling Catheter Weight 131.4 kg 02/25/22 04:37 02/25/22 04:37
[2022-02-25] MEDS ORDERED: DILTIAZEM 125 MG in SODIUM CHLORIDE 0.9% 100 ML IV SCH (13:00)
[2022-02-25] MEDS: NOREPINEPHRINE 4 MG in SODIUM CHLORIDE 0.9% 250 ML IV SCH (13:38)
[2022-02-25] MEDS ORDERED: DILTIAZEM DRIP BOLUS FROM BAG 1 MG SOLN IV ONE (13:45)
[2022-02-25] MEDS ORDERED: oxyCODONE-APAP 7.5-325MG 1 EACH TAB PO PRN (16:20)
[2022-02-25] MEDS: oxyCODONE-APAP 10-325MG 1 EACH TAB PO PRN ×2 (16:36→22:55)
[2022-02-25] MEDS: SODIUM CHLORIDE 0.9% 1,000 ML IV SCH (23:12)
[2022-02-26] MEDS: HYDROmorphone 1 MG/ML 1 ML SYRINGE IVP PRN ×6 (00:17→21:46)
[2022-02-26 03:58] LABS: HCT 25.5 % (34.0-46.0); HGB 8.7 gm/dL (11.4-16.0); MCH 30.7 pg (25.0-35.0); MCHC 34.2 g/dL (31.0-37.0); MCV 89.7 fL (80.0-100.0); Mean Platelet Volume 9.9; Platelet Count 197 k/uL (150-450); RBC 2.84 m/uL (3.80-5.40); RDW 13.8 % (11.5-15.5)
[2022-02-26 04:12] LABS: African American GFR (CKD) >90 (>60 ml/min/1.73 sqM); Anion Gap 6 mmol/L; Blood Urea Nitrogen 20 mg/dL (7-17); Calcium 8.1 mg/dL (8.4-10.2); Carbon Dioxide 26 mmol/L (22-30); Chloride 102 mmol/L (98-107); Glucose 182 mg/dL (74-99); Magnesium 2.2 mg/dL (1.6-2.3); Non-African American GFR(CKD) 89 (>60 ml/min/1.73 sqM); Phosphorus 2.8 mg/dL (2.5-4.5); Potassium 4.5 mmol/L (3.5-5.1); Sodium 134 mmol/L (137-145)
[2022-02-26] MEDS: LACTATED RINGERS 1,000 ML IV SCH (05:30)
[2022-02-26] MEDS: ACETAMINOPHEN TAB 325 MG TAB PO SCH ×3 (05:30→18:22)
[2022-02-26] MEDS: DEXAMETHASONE SOD PHOSPHATE 4 MG/ML 1 ML VIAL IVP SCH ×3 (06:18→18:24)
[2022-02-26] MEDS: LEVOTHYROXINE 88 MCG TAB PO SCH (06:18)
[2022-02-26] MEDS: NOREPINEPHRINE 4 MG in SODIUM CHLORIDE 0.9% 250 ML IV SCH (06:19)
--- NOTE | 2022-02-26 06:59 | XR ---
EXAMINATION TYPE: XR chest 1V portable DATE OF EXAM: 02/26/2022 COMPARISON: 02/25/2022 HISTORY: Tube placement TECHNIQUE: Single frontal view of the chest is obtained. FINDINGS: There is a right jugular central venous catheter the tip of which is in the SVC/RA junctio n. There is been interval removal of NG tube and ET tube. There are skin rito in the midline. There is persistent mild elevation of the right hemidiaphragm. The bibasilar opacities have improved slightly in the interval. There is no pneumothorax or large ple ural effusion. IMPRESSION: 1. Interval removal of ET tube and NG tube. There is no pneumothorax. 2. Mild improvement in the bibasilar infiltrates.
[2022-02-26] MEDS: ATORVASTATIN 10 MG TAB PO SCH (08:55)
[2022-02-26] MEDS: oxyCODONE-APAP 10-325MG 1 EACH TAB PO PRN (08:55)
[2022-02-26] MEDS: atenoloL 50 MG TAB PO SCH (08:55)
[2022-02-26] MEDS: DULoxetine HCL 60 MG CAPSULE.DR PO SCH (08:55)
[2022-02-26] MEDS ORDERED: atenoloL 50 MG TAB PO SCH (09:00)
--- NOTE | 2022-02-26 09:37 | P.PN ---
Subjective HISTORY OF PRESENTING ILLNESS Patient is pleasant 71-year-old female with history of atrial flutter, atrial fibrillation, hypertension, hyperlipidemia, a number back issues who presented for elective back surgery. She did have complicated long procedure. She has been noted to be in atrial flutter throughout the case however started noticing decrease in heart rate and patient became bradycardic with heart rates into the 20s and 30s. CODE BLUE was called and patient received brief round of CPR as well as atropine and epinephrine with improvement in heart rates. Initial ABG showed severe acidosis with bicarb 6, pCO2 less than 15 and pH 7.2. Blood work showed potassium 4.2, BUN 15, creatinine 0.5. She was left on ventilator overnight and extubated this morning and propofol was discontinued approximately an hour to an hour and half ago. Currently she admits to burning sensation around her spinal incision however no chest pain or pressure. She denies any prior lightheadedness or syncope. Currently remains in atrial flutter with h eart rates in the 100s to 120s. She is on atenolol at home. 02/26 Patient seen and examined. Patient overall states she is feeling well. Denies a chest pain or pressure. No significant bradycardic episodes. Remains in atrial flutter with heart rates mainly in the high 90s up to 110s to 120s. Heart rates increase appears somewhat related to pain. Still having significant pain in her back. PHYSICAL EXAMINATION Vital signs reviewed. CONSTITUTIONAL: No apparent distress. HEENT: Head is normocephalic. Pupils are equal, round. Sclerae anicteric. Mucous membranes of the mouth are moist. No JVD. No carotid bruit. CHEST EXAMINATION: Lungs are clear to auscultation. No chest wall tenderness is noted on palpation or with deep breathing. HEART EXAMINATION: Regular rate and rhythm. S1, S2 heard. No murmurs, gallops or rub. ABDOMEN: Soft, nontender. Positive bowel sounds. EXTREMITIES: 2+ peripheral pulses, no lower extremity edema and no calf tenderness. NEUROLOGIC EXAMINATION: Patient is awake, alert and oriented x3. ASSESSMENT 1. Atrial flutter with severe bradycardic episode and of the 20s to 30s status post brief round of CPR. Appears mainly related to severe metabolic derang ements with severe acidosis during surgery 2. Atrial flutter currently mild RVR 3. Status post back surgery 4. Hypertension 5. Hyperlipidemia PLAN Patient with significant bradycardic episode however severe metabolic derangements with severe acidosis bicarb 6. Do not suspect underlying SSS and no current need for PPM. Continued pain which is likely exacerbating her RVR. Continue with home atenolol. Add Cardizem 180mg daily and wean cardizem drip as able. Continue to hold Exforge for now. Add anticoagulation back when cleared with surgery. Further recs to follow. Objective - Vital Signs Vital signs: Vital Signs Temp 98.4 F 02/26/22 04:00 Pulse 98 02/26/22 06:00 Resp 15 02/26/22 06:00 BP 112/98 02/26/22 06:00 Pulse Ox 100 02/26/22 06:00 FiO2 40 02/25/22 11:10 Intake & Output 02/25/22 02/26/22 02/26/22 18:59 06:59 18:59 Intake Total 646.214 2712 Output Total 670 660 Balance -60.074 540 Weight 130.9 kg Intake: IV 550 1200 Sodium Chloride 0.9% 1, 550 1150 000 ml @ 50 mls/hr IV . Q20H MEHUL Rx#:[id number] ceFAZolin 2 gm In Sodium 50 Chloride 0.9% 50 ml @ 100 mls/hr IVPB Q8H MEHUL Rx#: [id number] Intake, IV Titration 59.926 Amount propofoL 1,000 mg In 59.926 Empty Bag 1 bag @ 15 MCG/ KG/MIN 10.701 mls/hr IV . Q9H21M MEHUL Rx#:[id number] Output: Gastric Drainage 100 Drainage 120 60 Back 1/2 suction Hemovac 100 50 Back Full Suction Hemovac 20 10 Urine 450 600 Other: Voiding Method Indwelling Catheter Indwelling Catheter ABP, PAP, CO, CI - Last Documented Arterial Blood Pressure 97/74 - Labs CBC & Chem 7: 02/26/22 03:25 02/26/22 03:25 Labs: Abnormal Lab Results - Last 24 Hours (Table) 02/26/22 02/26/22 Range/Units 03:25 03:25 WBC 17.0 H (3.8-10.6) k/uL RBC 2.84 L (3.80-5.40) m/uL Hgb 8.7 L (11.4-16.0) gm/dL Hct 25.5 L (34.0-46.0) % Sodium 134 L (137-145) mmol/L BUN 20 H (7-17) mg/dL Glucose 182 H (74-99) mg/dL Calcium 8.1 L (8.4-10.2) mg/dL
--- NOTE | 2022-02-26 09:42 | P.PN ---
Subjective Progress Note Date: 02/26/22 Is evaluation of 02/25/2022, the patient is being seen for a follow-up in the intensive care unit. The patient is post laminectomy and fusion/decompression of the spine and this was done on multiple levels. The patient overnight was kept on a mechanical ventilator. This morning, the patient is on propofol which is running at 35 mcg/kg/m. The patient is well sedated and the patient is quite sick sinus with a mechanical ventilator. The patient is requiring no pressors. The patient on normal saline in the at the rate of 50 mL an hour. The patient is on a mechanical ventilator on assist control mode at the rate of 18, tidal volume of 450, FiO2 of 40% with a PEEP of 5. The blood gas from today showed a pH of 7.41 with a pCO2 of 35 and pO2 of 138. Chest x-ray shows smaller lung volumes, some mild elevation of the right hemidiaphragm. ET tube is sitting just at the level of the aortic knob. No evidence of any pneumothorax. No airspace disease or consolidations. The patient also had a CT angiogram that showed no evidence of any pulmonary embolism. That showed atelectatic change in lung bases and various up other lung segments. No effusion. No lung collapse. CAT scan of the lumbosacral spine was also completed. The surgical one-sided dry clean and intact. The Hemovac output is bloody and its minimal at this point in time. The patient is afebrile. The patient is in atrial fibrillation. Rate is controlled. The patient is receiving Dilaudid for pain control.Blood work from today shows a white cell count of 14.7 with a hemoglobin of 10.1 and a platelet count of 232. The patient also has a sodium level of 135, potassium level of 4.4, chloride is 106 with a bicarb of 23 and a BUN of 15 and a creatinine of 0.5. On 02/26/2022, the patient is extubated and the patient is currently on room air oxygen. Pulse ox is around 91%. Chest x-rays showing a small left-sided pleural effusion, atelectatic change in the right lung base. The patient is able to move lower extremities. She has some limited numbness in her fingers the first and second finger and left upper extremity. Otherwise, she is hemodynamically stable. She remained nature fibrillation. She was started on Cardizem drip which is about 5 mg an hour for rate control and this was started yesterday. Her heart rate is under better control. The patient is also on beta blockers and the patient is on atenolol 100 mg by mouth on a daily basis. Pain is under adequate control. She is requiring Dilaudid 1 mg every 3 hours and 0.5 mg every 2 hours on an as-needed basis. She is also receiving Percocet 10/325 mg every 6 hours. She is currently also on IV fluids in the form of normal saline at the rate of 100 mL an hour. She remains on Decadron. Surgical 1 site is clean. The Hemovac has drained approximately 50 mL overnight and the output is minimal as such. No other significant events. No chest pain. No shortness of breath. Lucio second visit 17 with a hemoglobin of 8.7. As such there is a some drop in hemoglobin. BUN is at 20 creatinine of 0.6 and a sodium level is at 135. She is using the incentive spirometer. She is pulling approximately 3000. Objective - Vital Signs Vital signs: Vital Signs Temp 98.4 F 02/26/22 04:00 Pulse 98 02/26/22 06:00 Resp 15 02/26/22 06:00 BP 112/98 02/26/22 06:00 Pulse Ox 100 02/26/22 06:00 FiO2 40 02/25/22 11:10 Intake & Output 02/25/22 02/26/22 02/26/22 18:59 06:59 18:59 Intake Total 156.532 9867 Output Total 670 660 Balance -60.074 540 Weight 130.9 kg Intake: IV 550 1200 Sodium Chloride 0.9% 1, 550 1150 000 ml @ 50 mls/hr IV . Q20H MEHUL Rx#:[id number] ceFAZolin 2 gm In Sodium 50 Chloride 0.9% 50 ml @ 100 mls/hr IVPB Q8H MEHUL Rx#: [id number] Intake, IV Titration 59.926 Amount propofoL 1,000 mg In 59.926 Empty Bag 1 bag @ 15 MCG/ KG/MIN 10.701 mls/hr IV . Q9H21M MEHUL Rx#:[id number] Output: Gastric Drainage 100 Drainage 120 60 Back 1/2 suction Hemovac 100 50 Back Full Suction Hemovac 20 10 Urine 450 600 Other: Voiding Method Indwelling Catheter Indwelling Catheter ABP, PAP, CO, CI - Last Documented Arterial Blood Pressure 97/74 - Exam Morbidly obese, calm and comfortable not acute distress, RA 02 Head exam was generally normal. There was no scleral icterus or corneal arcus. Mucous membranes were moist. Neck was supple and without jugular venous distension, thyromegaly, or carotid bruits. Carotids were easily palpable bilaterally. There was no adenopathy. Lungs sounds are diminished bilaterally. Breath sounds are equal and symmetrical. Heart sounds are irregular, positive S2, SLIGHTLY TACHYCARDIC. No significant murmurs appreciated. Abdominal exam revealed normal bowel sounds. The abdomen was soft, non-tender, and without masses, organomegaly, or appreciable enlargement of the abdominal aorta. Examination of the extremities revealed easily palpable radial, femoral and pedal pulses. There was no cyanosis, clubbing or edema. Neurologically OAx3, moving all 4 extremities to deep painful stimulation. Examination of the skin shows that the rito are intact on the incision over the lumbar spine. The patient has a Hemovac in place, output is minimal at this point in time. - Labs CBC & Chem 7: 02/26/22 03:25 02/26/22 03:25 Labs: Abnormal Lab Results - Last 24 Hours (Table) 02/26/22 02/26/22 Range/Units 03:25 03:25 WBC 17.0 H (3.8-10.6) k/uL RBC 2.84 L (3.80-5.40) m/uL Hgb 8.7 L (11.4-16.0) gm/dL Hct 25.5 L (34.0-46.0) % Sodium 134 L (137-145) mmol/L BUN 20 H (7-17) mg/dL Glucose 182 H (74-99) mg/dL Calcium 8.1 L (8.4-10.2) mg/dL Assessment and Plan Plan: Lumbar decompression/fusion, multilevel, revision, patient is postop day #2 , currently recovering from surgery. CAT scan of the lumbar spine was noted. The hardware is in appropriate location. The patient will need pain control. She is taking Percocet. She is also taken Dilaudid 1 mg every 3 hours. We'll decrease the frequency to 2 at this point in time and continue with the Perc ocet. She is very comfortable at this point in time. She is extubated to room air oxygen. Acute hypoxic/hypercapnic respiratory failure, the patient extubated to room air oxygen. Chest x-ray showing some platelike atelectatic change in the lung base especially on the right. Very tiny small effusion on the left. Non-anion gap metabolic acidosis, recovered and the bicarb deficit has been repl aced Cardiac arrest, brief PEA encountered in the operating room. Exact cause is not clear. It's possible the patient was losing her volumes and she was becoming progressively more acidotic, consider respiratory acidosis part of his cardiac arrest. The patient had PEA arrest, resuscitated Hypotension, recovered, currently on a Cardizem drip at 5 mg an hour. The patient has not been started on Xarelto Morbid obesity with a BMI of 41.1 History of paralyzed or partially paralyzed right hemidiaphragm History of right-sided breast cancer Hiatal hernia Chronic atrial fibrillation Hypertension Hyperlipidemia Plan Discontinue the Cardizem drip and put the patient on oral Cardizem Continue atenolol We'll check a possibility of starting anticoagulation with spine surgery Change Dilaudid 1 mg every 2 hours Continue Percocet May discontinue the Decadron Surgical one-sided dry clean and intact drain is in place Patient is currently off pressors Dilaudid for pain control Follow-up with spine surgery We'll continue to follow.
[2022-02-26] MEDS ORDERED: DEXTROSE 50% SYRINGE 50 ML IVP PRN ×2 (10:00)
--- NOTE | 2022-02-26 10:06 | P.PN ---
Subjective Progress Note Date: 02/26/22 Patient is a 71 yo CF with a hx of A fib s/p ablation, GERD, hypertension, dyslipidemia, and right diaphragmatic paralysis who presented for T10 to Pelvis decompression and fusion with revision. Blood loss and the case was approximately 1900 mL. During her operative course she required phenylephrine IV infusion, Vasopressin IVP. She also received TXA gtt. She received 7 L of lactated Ringer's. She received 1 amp of sodium bicarb intaop. She also received albumin. Her operative course was complicated with a cardiac arrest. During the case she developed A. fib with RVR and then quickly transitioned into bradycardia with a low end-tidal CO2. She received 0.4 of atropine and CPR was started. She received epinephrine 0.5. She achieved ROSC. Total down time was less than 5 minutes. Her levo was weaned overnight. During her sedation holiday she was responding appropriately. Patient seen and examined at bedside. She is currently sedated but does open eyes. No acute events overnight. Patient has remianed in A fib with HR 110-125. She typically is on atenolol which does not offer rate control, but no other rate or rhytm controlling medications. I have asked nursing to administer pain medications and observer HT response. General: ill apperating, mild distress, appears at stated age Derm: warm, dry Head: atraumatic, normocephalic, symmetric Eyes: EOMI, no lid lag, anicteric sclera Mouth: no lip lesion, mucus membranes moist Cardiovascular: S1S2 irreg and tachy, no murmur, positive posterior tibial pulse bilateral, Lungs: CTA bilateral, no rhonchi, no rales , no accessory muscle use, on vent Abdominal: soft, nontender to palpation, no guarding, no appreciable organome syl Ext: no gross muscle atrophy, no edema, no contractures Neuro: Opens eyes, and tracks movements, breathing over vent Psych: opens eyes appropraitly and appears calm Assessment/Plan: 71 yo F s/p T10 to pelvis decompression with fusion. Management per ortho. Post-op pain - Add gabapentin and valium, increase percocet - d/w Dr. Alexander and if pain control still suboptimal this afternoon will transition to [employer] pump Aborted sudden cardiac - cardio recs appreciated - echo pending - tele Right diaphragmatic paralysis - aggressive pulmonary hygiene - pulm recs Acute blood loss anemia, anticipated outcome of surgery -No indication for transfusion at this time -Follow CBC -Coags normal A flutter with RVR - cardio recs, transitioned to oral cardizem today - d/w Dr. Alexander and Jessi to resume Xarelto today - tele HLD - statin HTN - Atenolol, cardizem - hold amlodipine, losartan with current BP and starting cardizem -Follow blood pressures Non-anion gap metbolic acidosis, resolved Hypomagnesemia, resolved Postoperative respiratory failure, anticipated outcome of surgery, resolved Active Medications Generic Name Dose Route Start Last Admin Trade Name Freq PRN Reason Stop Dose Admin Acetaminophen 650 mg 02/24/22 18:00 02/26/22 05:30 Acetaminophen Tab 325 Mg Tab PO Not Given Q6HR MEHUL Atenolol 100 mg 02/25/22 10:00 02/26/22 08:55 Atenolol 50 Mg Tab PO 100 mg QAM MEHUL Administration Atorvastatin Calcium 10 mg 02/25/22 09:45 02/26/22 08:55 Atorvastatin 10 Mg Tab PO 10 mg DAILY MEHUL Administration Cyclobenzaprine HCl 10 mg 02/24/22 17:33 Cyclobenzaprine 10 Mg Tab PO TID PRN Muscle Spasm Dexamethasone Sodium Phosphate 4 mg 02/24/22 18:00 02/26/22 06:18 Dexamethasone Sod Phosphate 4 Mg/Ml 1 Ml Vial IVP 4 mg Q6HR MEHUL Administration Diazepam 2 mg 02/26/22 09:55 Diazepam 2 Mg Tab PO QID PRN Muscle Spasm Diltiazem HCl 180 mg 02/26/22 09:45 Diltiazem Cd 180 Mg Cap.Er.24h PO DAILY MEHUL Duloxetine HCl 60 mg 02/25/22 09:45 02/26/22 08:55 Duloxetine Hcl 60 Mg Capsule.Dr PO 60 mg DAILY MEHUL Administration Gabapentin 300 mg 02/26/22 10:00 Gabapentin 300 Mg Cap PO TID MEHUL Hydromorphone HCl 0.5 mg 02/25/22 20:19 Hydromorphone 0.5 Mg/0.5 Ml Syringe IVP Q2HR PRN Pain Scale 4 - 6 Hydromorphone HCl 1 mg 02/26/22 09:43 Hydromorphone 1 Mg/Ml 1 Ml Syringe IVP Q2HR PRN Pain Scale of 7 - 10 Lactated Ringer's 1,000 mls @ 20 mls/hr 02/24/22 05:34 02/26/22 05:30 Lactated Ringers IV Not Given .Q24H MEHUL Norepinephrine Bitartrate 4 mg 254 mls @ 13.59 mls/hr 02/24/22 17:15 02/26/22 06:19 / Sodium Chloride IV Not Given .[id number] MEHUL Protocol 0.03 MCG/KG/MIN Cefazolin Sodium 2 gm/ Sodium 50 mls @ 100 mls/hr 02/24/22 20:00 02/26/22 03:28 Chloride IVPB 03/03/22 04:29 100 mls/hr Q8H MEHUL Administration Protocol Diltiazem HCl 125 mg/ Sodium 125 mls @ 0 mls/hr 02/25/22 13:00 02/25/22 13:45 Chloride IV 5 ml/hr .Q0M MEHUL 5 mls/hr Administration Protocol Per Protocol Sodium Chloride 1,000 mls @ 50 mls/hr 02/25/22 23:00 02/25/22 23:12 Saline 0.9% IV 100 mls/hr .Q20H MEHUL Administration Levothyroxine Sodium 88 mcg 02/25/22 09:45 02/26/22 06:18 Levothyroxine 88 Mcg Tab PO 88 mcg 0630 MEHUL Administration Magnesium Hydroxide 2,400 mg 02/24/22 17:33 Magnesium Hydroxide 2,400 Mg/10 Ml Cup PO DAILY PRN Constipation Ondansetron HCl 4 mg 02/24/22 17:33 Ondansetron 4 Mg/2 Ml Vial IVP Q8HR PRN Nausea And Vomiting Oxycodone/Acetaminophen 1 each 02/26/22 09:59 Oxycodone-Apap 10-325mg 1 Each Tab PO Q6HR PRN Moderate to Severe Pain (4-10) Oxycodone/Acetaminophen 2 each 02/26/22 09:59 Oxycodone-Apap 7.5-325mg 1 Each Tab PO Q6HR PRN Severe Pain (Scale 7 to 10) Rivaroxaban 20 mg 02/26/22 17:30 Rivaroxaban 20 Mg Tab PO W/SUPPER MEHUL Protocol Senna/Docusate Sodium 2 each 02/24/22 17:33 Sennosides-Docusate Sodium 1 Each Tab PO DAILY PRN Constipation Objective - Vital Signs Vital signs: Vital Signs Temp 98.4 F 02/26/22 04:00 Pulse 98 02/26/22 06:00 Resp 15 02/26/22 06:00 BP 112/98 02/26/22 06:00 Pulse Ox 100 02/26/22 06:00 FiO2 40 02/25/22 11:10 Intake & Output 02/25/22 02/26/22 02/26/22 18:59 06:59 18:59 Intake Total 114.901 9798 Output Total 670 660 Balance -60.074 540 Weight 130.9 kg Intake: IV 550 1200 Sodium Chloride 0.9% 1, 550 1150 000 ml @ 50 mls/hr IV . Q20H MEHUL Rx#:[id number] ceFAZolin 2 gm In Sodium 50 Chloride 0.9% 50 ml @ 100 mls/hr IVPB Q8H MEHUL Rx#: [id number] Intake, IV Titration 59.926 Amount propofoL 1,000 mg In 59.926 Empty Bag 1 bag @ 15 MCG/ KG/MIN 10.701 mls/hr IV . Q9H21M MEHUL Rx#:[id number] Output: Gastric Drainage 100 Drainage 120 60 Back 1/2 suction Hemovac 100 50 Back Full Suction Hemovac 20 10 Urine 450 600 Other: Voiding Method Indwelling Catheter Indwelling Catheter ABP, PAP, CO, CI - Last Documented Arterial Blood Pressure 97/74 - Labs CBC & Chem 7: 02/26/22 03:25 02/26/22 03:25 Labs: Abnormal Lab Results - Last 24 Hours (Table) 02/26/22 02/26/22 Range/Units 03:25 03:25 WBC 17.0 H (3.8-10.6) k/uL RBC 2.84 L (3.80-5.40) m/uL Hgb 8.7 L (11.4-16.0) gm/dL Hct 25.5 L (34.0-46.0) % Sodium 134 L (137-145) mmol/L BUN 20 H (7-17) mg/dL Glucose 182 H (74-99) mg/dL Calcium 8.1 L (8.4-10.2) mg/dL
--- NOTE | 2022-02-26 10:31 | P.PN ---
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 Patient is alert and oriented during encounter. Patient says she did have difficulty yesterday grasping popsicle stick and with other fine motor skills. Patient says this is a new issue since surgery. Patient was extubated yesterday. Patient feels that the oxycodone has not helped much with her pain. Patient does feel that the Dilaudid has helped with her pain. Patient does notice some numbness/tingling down her bilateral lower extremities. Patient says she is able to move her arms and legs at this time. Patient denies headaches. Warren/catheters in place currently. Patient denies chest pain, fever, increasing shortness of breath, nausea, vomiting, change in vision, loss of bowel/bladder control. Objective - Vital Signs Vital signs: Vital Signs Temp 98.4 F 02/26/22 04:00 Pulse 98 02/26/22 06:00 Resp 15 02/26/22 06:00 BP 112/98 02/26/22 06:00 Pulse Ox 100 02/26/22 06:00 FiO2 40 02/25/22 11:10 Intake & Output 02/25/22 02/26/22 02/26/22 18:59 06:59 18:59 Intake Total 962.768 0855 Output Total 670 660 Balance -60.074 540 Weight 130.9 kg Intake: IV 550 1200 Sodium Chloride 0.9% 1, 550 1150 000 ml @ 50 mls/hr IV . Q20H MEHUL Rx#:[id number] ceFAZolin 2 gm In Sodium 50 Chloride 0.9% 50 ml @ 100 mls/hr IVPB Q8H MEHUL Rx#: [id number] Intake, IV Titration 59.926 Amount propofoL 1,000 mg In 59.926 Empty Bag 1 bag @ 15 MCG/ KG/MIN 10.701 mls/hr IV . Q9H21M MEHUL Rx#:[id number] Output: Gastric Drainage 100 Drainage 120 60 Back 1/2 suction Hemovac 100 50 Back Full Suction Hemovac 20 10 Urine 450 600 Other: Voiding Method Indwelling Catheter Indwelling Catheter ABP, PAP, CO, CI - Last Documented Arterial Blood Pressure 97/74 - Exam Surgical incision was checked yesterday and appears to be healing well this time. [place] are well aligned and intact. New surgical dressing was placed over incision yesterday. Deep and superficial drains are present at this time. 60 mL of serous drainage documented over deep drain overnight. Deep drain is to be kept to gravity. Superficial drain presents with 50 mL serosanguineous drainage. Superficial drain may be kept at full suction. Sensation is present in bilateral upper extremities and lower extremities. It is equal and bilaterally intact. Patient does have good range of motion in bilateral upper and lower extremities. Patient does have limited range of motion in right hip flexion/extension and right knee flexion/extension bilaterally due to weakness/pain. 5/5 in all major motor groups in bilateral upper extremities. 4/5 in all major motor bilateral lower extremities. Radial pulse intact, 2+ bilaterally. Cap refill under 3 seconds in digits of upper extremities. Negative Homans bilaterally. Negative Susan bilaterally. Negative clonus bilateral. - Labs CBC & Chem 7: 02/26/22 03:25 02/26/22 03:25 Labs: Abnormal Lab Results - Last 24 Hours (Table) 02/26/22 02/26/22 Range/Units 03:25 03:25 WBC 17.0 H (3.8-10.6) k/uL RBC 2.84 L (3.80-5.40) m/uL Hgb 8.7 L (11.4-16.0) gm/dL Hct 25.5 L (34.0-46.0) % Sodium 134 L (137-145) mmol/L BUN 20 H (7-17) mg/dL Glucose 182 H (74-99) mg/dL Calcium 8.1 L (8.4-10.2) mg/dL Assessment and Plan Assessment: 1. 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 Patient is postop day #2 status post [id number] decompression fusion. Patient was extubated yesterday. Warren/catheters in place currently. To remain in place at this time. Maintain deep drain to gravity at this time. Superficial drain may be Full suction. Patient is alert and oriented at bedside this morning. We will continue follow patient during her stay in hospital. 2. Appreciate medical management 3. Pain management - oxycodone; Dilaudid; Flexeril; gabapentin; Tylenol 4. GI prophylaxis - senna; milk of mag 5. DVT prophylaxis - Xarelto 6. PT/OT recs 7. Encourage incentive spirometer use 8. Discharge planning - pending Time with Patient: Less than 30
[2022-02-26] MEDS: DILTIAZEM CD 180 MG CAP.ER.24H PO SCH (11:06)
[2022-02-26] MEDS: GABAPENTIN 300 MG CAP PO SCH ×2 (11:06→21:41)
[2022-02-26 12:14] LABS: Glucose,Whole Blood 169 mg/dL (70-110)
[2022-02-26] MEDS: INSULIN ASPART (NovoLOG) 100 UNIT/ML VIAL SQ SCH ×3 (12:50→21:39)
[2022-02-26] MEDS: ONDANSETRON 4 MG/2 ML VIAL IVP PRN (17:48)
[2022-02-26] MEDS: SODIUM CHLORIDE 0.9% 1,000 ML IV SCH (18:24)
[2022-02-26] MEDS ORDERED: METOCLOPRAMIDE 5 MG/ML 2 ML VIAL IVP STA (18:35)
[2022-02-26 21:38] LABS: Glucose,Whole Blood 180 mg/dL (70-110)
[2022-02-26] MEDS: RIVAROXABAN 20 MG TAB PO SCH (21:42)
[2022-02-27] MEDS: ACETAMINOPHEN TAB 325 MG TAB PO SCH ×4 (00:45→17:25)
[2022-02-27] MEDS: GABAPENTIN 300 MG CAP PO SCH ×4 (00:45→21:23)
[2022-02-27] MEDS: DEXAMETHASONE SOD PHOSPHATE 4 MG/ML 1 ML VIAL IVP SCH ×4 (00:45→17:26)
[2022-02-27] MEDS: NOREPINEPHRINE 4 MG in SODIUM CHLORIDE 0.9% 250 ML IV SCH ×2 (00:51→20:31)
[2022-02-27] MEDS: HYDROmorphone 1 MG/ML 1 ML SYRINGE IVP PRN ×9 (02:14→22:45)
[2022-02-27] MEDS: ONDANSETRON 4 MG/2 ML VIAL IVP PRN (02:14)
[2022-02-27] MEDS: SODIUM CHLORIDE 0.9% 1,000 ML IV SCH ×2 (04:14→16:53)
[2022-02-27] MEDS: LEVOTHYROXINE 88 MCG TAB PO SCH (05:44)
[2022-02-27 05:57] LABS: HCT 25.9 % (34.0-46.0); HGB 8.7 gm/dL (11.4-16.0); MCH 29.4 pg (25.0-35.0); MCHC 33.6 g/dL (31.0-37.0); MCV 87.6 fL (80.0-100.0); Mean Platelet Volume 9.9; Platelet Count 208 k/uL (150-450); RBC 2.95 m/uL (3.80-5.40); RDW 14.4 % (11.5-15.5); WBC 17.9 k/uL (3.8-10.6)
[2022-02-27 06:12] LABS: ALT 18 U/L (4-34); AST 35 U/L (14-36); African American GFR (CKD) >90 (>60 ml/min/1.73 sqM); Albumin 3.4 g/dL (3.5-5.0); Alkaline Phosphatase 74 U/L (38-126); Anion Gap 4 mmol/L; Blood Urea Nitrogen 20 mg/dL (7-17); Calcium 8.3 mg/dL (8.4-10.2); Carbon Dioxide 28 mmol/L (22-30); Chloride 101 mmol/L (98-107); Glucose 167 mg/dL (74-99); Magnesium 2.1 mg/dL (1.6-2.3); Non-African American GFR(CKD) >90 (>60 ml/min/1.73 sqM); Phosphorus 2.8 mg/dL (2.5-4.5); Potassium 4.6 mmol/L (3.5-5.1); Sodium 133 mmol/L (137-145); Total Bilirubin 0.7 mg/dL (0.2-1.3); Total Protein 5.5 g/dL (6.3-8.2)
[2022-02-27 07:01] LABS: Glucose,Whole Blood 159 mg/dL (70-110)
[2022-02-27] MEDS: INSULIN ASPART (NovoLOG) 100 UNIT/ML VIAL SQ SCH ×4 (07:03→20:36)
--- NOTE | 2022-02-27 07:15 | P.PN ---
Subjective Progress Note Date: 02/27/22 Pt s/e this AM she is doing well. She has had N/V overnight that started around midnight. She has been keeping some fluids down more recent but did not want breakfast. She has had Zofran and Reglan with continued sx. She denies any LOZANO or blurred vision at this time. She is sitting at 20 deg HOB up. She has wiley in place. She has not been up yet. She is moving her LE and UE with good strength. Denies any numbness/tingling. States some burning in the RLE around the L2 region. No groin pain or radiation. No radicular pain at this time. Denies any f/c/sob/cp overnight. Objective - Vital Signs Vital signs: Vital Signs Temp 98.2 F 02/27/22 04:00 Pulse 99 02/27/22 04:00 Resp 17 02/27/22 04:00 BP 135/74 02/27/22 04:00 Pulse Ox 93 L 02/27/22 04:00 FiO2 40 02/25/22 11:10 Intake & Output 02/26/22 02/27/22 02/27/22 18:59 06:59 18:59 Intake Total 957.083 600 Output Total 1125 990 Balance -167.917 -390 Weight 130.9 kg Intake: IV 700 600 Sodium Chloride 0.9% 1, 700 200 000 ml @ 50 mls/hr IV . Q20H MEHUL Rx#:[id number] Sodium Chloride 0.9% 1, 400 000 ml @ 50 mls/hr IV . Q20H MEHUL Rx#:[id number] Intake, IV Titration 107.083 Amount Diltiazem 125 mg In 107.083 Sodium Chloride 0.9% 100 ml @ Per Protocol IV .Q0M MEHUL Rx#:[id number] Oral 150 Output: Drainage 100 40 Back 1/2 suction Hemovac 20 30 Back Full Suction Hemovac 80 10 Urine 1025 950 Other: Voiding Method Indwelling Catheter Indwelling Catheter ABP, PAP, CO, CI - Last Documented Arterial Blood Pressure 97/74 - Exam Physical Exam: -Patient is alert and oriented 3 appears well-nourished well-hydrated is in no acute distress. They do not appear septic. -There is TTP about the incision site, no hematoma -Incision is CDI, no EEE, no drainage -Upper extremities show 4+ out of 5 strength in all major muscle groups. Normal deconditioning -Lower extremities with 4+ out of 5 strength in all major muscle groups She does show some weakness in the left hip flexors but otherwise has reasonable strength without any other focal deficits. -There is [FROM] that is [painless] of the b/l UE and LE in all major joints. Neg log roll, Neg SLR -They are intact to light touch sensation in C5 to T1 and L2 to S1 nerve distribution. She c/o some numbness in superficial radial nerve distribution of Right hand that is resolving -DTR [2]/4 all upper and lower extremities -Patient has palpable distal pulses all 4 ext -Compartments are soft and compressible. -Patient shows a negative Gilbert's [-Neg Hoffmans b/l] [-Neg Clonus b/l] [-Neg babinski b/l] Cranial nerves II through XII are grossly intact. No nystagmus. - Psychiatric Psychiatric: Present: A&O x's 3, appropriate affect - Labs CBC & Chem 7: 02/27/22 05:45 02/27/22 05:45 Labs: Abnormal Lab Results - Last 24 Hours (Table) 02/26/22 02/26/22 02/27/22 Range/Units 12:11 21:36 05:45 WBC 17.9 H (3.8-10.6) k/uL RBC 2.95 L (3.80-5.40) m/uL Hgb 8.7 L (11.4-16.0) gm/dL Hct 25.9 L (34.0-46.0) % Sodium (137-145) mmol/L BUN (7-17) mg/dL Glucose (74-99) mg/dL POC Glucose (mg/dL) 169 H 180 H (70-110) mg/dL Calcium (8.4-10.2) mg/dL Total Protein (6.3-8.2) g/dL Albumin (3.5-5.0) g/dL 02/27/22 02/27/22 Range/Units 05:45 06:59 WBC (3.8-10.6) k/uL RBC (3.80-5.40) m/uL Hgb (11.4-16.0) gm/dL Hct (34.0-46.0) % Sodium 133 L (137-145) mmol/L BUN 20 H (7-17) mg/dL Glucose 167 H (74-99) mg/dL POC Glucose (mg/dL) 159 H (70-110) mg/dL Calcium 8.3 L (8.4-10.2) mg/dL Total Protein 5.5 L (6.3-8.2) g/dL Albumin 3.4 L (3.5-5.0) g/dL - Imaging and Cardiology CT is reviewed of the T and L spine and shows hardware in good position with well maintained alignment, correction, with good decomopression. NO complicating issues noted. Assessment and Plan Assessment: POD 3 Revision [id number] decompression fusion Prolonged ventilated recovery, expected from surgery Plan: -Appreciate medical device sales consultant and team management. -Activity: Ambulate QID, OOB all meals, up and about, limit lifting bending twisting to less than 5 lbs. Use walker or cane if needed for stability. -Daily PT/OT, increase ambulation strength and balance. -TLSO brace when up and about, not needed for chair sitting or rest. -Pain control: Adequate at this time -Meds: reviewed, Cont reglan doses and zofran. -GI ppx: senna, Miralax -DC wiley when up and about, bedside commode if needed -DVT PPX: lien Ann -Hygiene: Shower today. Maintain dressing clean and dry. Meticulous cleaning after BMs away from incision site -Drains: DC superficial drain today. Maintain deep drain to gravity suction at this time. -OK with TF from ICU when able -Watch for LOZANO, increased N/V, Blurred vision. If any sx, lay flat 24 hrs. -Encourage IS 10x/hr -Dispo: [Pending]
--- NOTE | 2022-02-27 08:04 | FL ---
Fluoroscopy INDICATION: Pain FINDINGS: Fluoroscopy time: 2 minutes 44 seconds. Images obtained: 10. IMPRESSIONS: 1. Documentation of fluoroscopy.
[2022-02-27] MEDS: PROCHLORPERAZINE INJ 10 MG/2 ML VIAL IVP PRN (09:13)
[2022-02-27] MEDS: DILTIAZEM CD 180 MG CAP.ER.24H PO SCH (09:50)
[2022-02-27] MEDS: ATORVASTATIN 10 MG TAB PO SCH (09:50)
[2022-02-27] MEDS: DULoxetine HCL 60 MG CAPSULE.DR PO SCH (09:50)
[2022-02-27] MEDS: atenoloL 50 MG TAB PO SCH (09:50)
[2022-02-27] MEDS: oxyCODONE-APAP 7.5-325MG 1 EACH TAB PO PRN ×2 (09:51→16:37)
--- NOTE | 2022-02-27 09:58 | P.PN ---
Subjective Progress Note Date: 02/27/22 Patient is a 71 yo CF with a hx of A fib s/p ablation, GERD, hypertension, dyslipidemia, and right diaphragmatic paralysis who presented for T10 to Pelvis decompression and fusion with revision. Blood loss and the case was approximately 1900 mL. During her operative course she required phenylephrine IV infusion, Vasopressin IVP. She also received TXA gtt. She received 7 L of lactated Ringer's. She received 1 amp of sodium bicarb intaop. She also received albumin. Her operative course was complicated with a cardiac arrest. During the case she developed A. fib with RVR and then quickly transitioned into bradycardia with a low end-tidal CO2. She received 0.4 of atropine and CPR was started. She received epinephrine 0.5. She achieved ROSC. Total down time was less than 5 minutes. Her levo was weaned overnight. During her sedation holiday she was responding appropriately. She was extubated on 02/25. She continued to do well with struggled with pain. Patient seen and examined at bedside. She states that her pain is severe and feels uncontrolled. She states that after she tried a full liquid diet yesterday she had some nausea which has persisted throughout the night. She is no longer vomiting but still feels very nauseated. She denies any chest pain or shortness of breath. General: ill apperating, mild distress due to pain, appears at stated age Derm: warm, dry Head: atraumatic, normocephalic, symmetric Eyes: EOMI, no lid lag, anicteric sclera Mouth: no lip lesion, mucus membranes moist Cardiovascular: S1S2 irreg and tachy, no murmur, positive posterior tibial pulse bilateral, Lungs: CTA bilateral, no rhonchi, no rales , no accessory muscle use, Abdominal: soft, nontender to palpation, no guarding, no appreciable organomegaly Ext: no gross muscle atrophy, no edema, no contractures Neuro: Moving all 4 extremities independently, light touch intact Psych: Alert, oriented, appropriate affect Assessment/Plan: 71 yo F s/p T10 to pelvis decompression with fusion. Management per ortho. Post-op pain - Continue with gabapentin, Valium, and Percocet - Continue with Dilaudid and Percocet. If patient's pain is not improved by lunchtime will contact Dr. Mack for consideration of initiation of GUI DEVELOPER. Aborted sudden cardiac - cardio recs appreciated - echo pending - tele Leukocytosis -Suspect secondary to steroids - follow CBC and fever profile Right diaphragmatic paralysis - aggressive pulmonary hygiene - pulm recs Acute blood loss anemia, anticipated outcome of surgery -No indication for transfusion at this time -Follow CBC -Coags normal A flutter with RVR -Xarelto resumed on 02/26 -Continue with Cardizem -Suspect that suboptimal rate control is related to pain. We'll work on increasing pain medications. - tele HLD - statin HTN - Atenolol, cardizem - hold amlodipine, losartan with current BP and starting cardizem -Follow blood pressures Non-anion gap metbolic acidosis, resolved Hypomagnesemia, resolved Postoperative respiratory failure, anticipated outcome of surgery, resolved Active Medications Generic Name Dose Route Start Last Admin Trade Name Freq PRN Reason Stop Dose Admin Acetaminophen 650 mg 02/24/22 18:00 02/27/22 05:44 Acetaminophen Tab 325 Mg Tab PO 650 mg Q6HR MEHUL Administration Atenolol 100 mg 02/25/22 10:00 02/27/22 09:50 Atenolol 50 Mg Tab PO 100 mg QAM MEHUL Administration Atorvastatin Calcium 10 mg 02/25/22 09:45 02/27/22 09:50 Atorvastatin 10 Mg Tab PO 10 mg DAILY MEHUL Administration Cyclobenzaprine HCl 10 mg 02/24/22 17:33 Cyclobenzaprine 10 Mg Tab PO TID PRN Muscle Spasm Dexamethasone Sodium Phosphate 4 mg 02/24/22 18:00 02/27/22 05:45 Dexamethasone Sod Phosphate 4 Mg/Ml 1 Ml Vial IVP 4 mg Q6HR MEHUL Administration Dextrose/Water 25 ml 02/26/22 10:00 Dextrose 50% Syringe 50 Ml IVP PER PROTOCOL PRN Hypoglycemia Protocol Dextrose/Water 50 ml 02/26/22 10:00 Dextrose 50% Syringe 50 Ml IVP PER PROTOCOL PRN Hypoglycemia Protocol Diazepam 2 mg 02/26/22 09:55 Diazepam 2 Mg Tab PO QID PRN Muscle Spasm Diltiazem HCl 180 mg 02/26/22 09:45 02/27/22 09:50 Diltiazem Cd 180 Mg Cap.Er.24h PO 180 mg DAILY MEHUL Administration Duloxetine HCl 60 mg 02/25/22 09:45 02/27/22 09:50 Duloxetine Hcl 60 Mg Capsule.Dr PO 60 mg DAILY MEHUL Administration Gabapentin 300 mg 02/26/22 10:00 02/27/22 09:51 Gabapentin 300 Mg Cap PO 300 mg TID MEHLU Administration Hydromorphone HCl 0.5 mg 02/25/22 20:19 Hydromorphone 0.5 Mg/0.5 Ml Syringe IVP Q2HR PRN Pain Scale 4 - 6 Hydromorphone HCl 1 mg 02/26/22 09:43 02/27/22 09:14 Hydromorphone 1 Mg/Ml 1 Ml Syringe IVP 1 mg Q2HR PRN Administration Pain Scale of 7 - 10 Norepinephrine Bitartrate 4 mg 254 mls @ 13.59 mls/hr 02/24/22 17:15 02/27/22 00:51 / Sodium Chloride IV Not Given .[id number] MEHUL Protocol 0.03 MCG/KG/MIN Cefazolin Sodium 2 gm/ Sodium 50 mls @ 100 mls/hr 02/24/22 20:00 02/27/22 04:12 Chloride IVPB 03/03/22 04:29 100 mls/hr Q8H MEHUL Administration Protocol Diltiazem HCl 125 mg/ Sodium 125 mls @ 0 mls/hr 02/25/22 13:00 02/26/22 11:10 Chloride IV 0 ml/hr .Q0M MEHUL 0 mls/hr Titration Protocol Per Protocol Sodium Chloride 1,000 mls @ 50 mls/hr 02/25/22 23:00 02/27/22 04:14 Saline 0.9% IV 50 mls/hr .Q20H MEHUL Administration Insulin Aspart 0 unit 02/26/22 12:30 02/27/22 07:03 Insulin Aspart (Novolog) 100 Unit/Ml Vial SQ 2 unit ACHS MEHUL Administration Protocol Levothyroxine Sodium 88 mcg 02/25/22 09:45 02/27/22 05:44 Levothyroxine 88 Mcg Tab PO 88 mcg 0630 MEHUL Administration Magnesium Hydroxide 2,400 mg 02/24/22 17:33 Magnesium Hydroxide 2,400 Mg/10 Ml Cup PO DAILY PRN Constipation Ondansetron HCl 4 mg 02/24/22 17:33 02/27/22 02:14 Ondansetron 4 Mg/2 Ml Vial IVP 4 mg Q8HR PRN Administration Nausea And Vomiting Oxycodone/Acetaminophen 1 each 02/26/22 09:59 Oxycodone-Apap 10-325mg 1 Each Tab PO Q6HR PRN Moderate to Severe Pain (4-6) Oxycodone/Acetaminophen 2 each 02/26/22 09:59 02/27/22 09:51 Oxycodone-Apap 7.5-325mg 1 Each Tab PO 2 each Q6HR PRN Administration Severe Pain (Scale 7 to 10) Prochlorperazine Edisylate 5 mg 02/27/22 09:01 02/27/22 09:13 Prochlorperazine Inj 10 Mg/2 Ml Vial IVP 5 mg Q4HR PRN Administration Nausea And Vomiting Rivaroxaban 20 mg 02/26/22 17:30 02/26/22 21:42 Rivaroxaban 20 Mg Tab PO Not Given W/SUPPER [facility] Protocol Senna/Docusate Sodium 2 each 02/24/22 17:33 Sennosides-Docusate Sodium 1 Each Tab PO DAILY PRN Constipation Objective - Vital Signs Vital signs: Vital Signs Temp 98.2 F 02/27/22 04:00 Pulse 99 02/27/22 04:00 Resp 17 02/27/22 04:00 BP 135/74 02/27/22 04:00 Pulse Ox 93 L 02/27/22 04:00 FiO2 40 02/25/22 11:10 Intake & Output 02/26/22 02/27/22 02/27/22 18:59 06:59 18:59 Intake Total 957.083 600 Output Total 1125 990 Balance -167.917 -390 Weight 130.9 kg Intake: IV 700 600 Sodium Chloride 0.9% 1, 700 200 000 ml @ 50 mls/hr IV . Q20H MEHUL Rx#:[id number] Sodium Chloride 0.9% 1, 400 000 ml @ 50 mls/hr IV . Q20H MEHUL Rx#:[id number] Intake, IV Titration 107.083 Amount Diltiazem 125 mg In 107.083 Sodium Chloride 0.9% 100 ml @ Per Protocol IV .Q0M MEHUL Rx#:[id number] Oral 150 Output: Drainage 100 40 Back 1/2 suction Hemovac 20 30 Back Full Suction Hemovac 80 10 Urine 1025 950 Other: Voiding Method Indwelling Catheter Indwelling Catheter ABP, PAP, CO, CI - Last Documented Arterial Blood Pressure 97/74 - Labs CBC & Chem 7: 02/27/22 05:45 02/27/22 05:45 Labs: Abnormal Lab Results - Last 24 Hours (Table) 02/26/22 02/26/22 02/27/22 Range/Units 12:11 21:36 05:45 WBC 17.9 H (3.8-10.6) k/uL RBC 2.95 L (3.80-5.40) m/uL Hgb 8.7 L (11.4-16.0) gm/dL Hct 25.9 L (34.0-46.0) % Sodium (137-145) mmol/L BUN (7-17) mg/dL Glucose (74-99) mg/dL POC Glucose (mg/dL) 169 H 180 H (70-110) mg/dL Calcium (8.4-10.2) mg/dL Total Protein (6.3-8.2) g/dL Albumin (3.5-5.0) g/dL 02/27/22 02/27/22 Range/Units 05:45 06:59 WBC (3.8-10.6) k/uL RBC (3.80-5.40) m/uL Hgb (11.4-16.0) gm/dL Hct (34.0-46.0) % Sodium 133 L (137-145) mmol/L BUN 20 H (7-17) mg/dL Glucose 167 H (74-99) mg/dL POC Glucose (mg/dL) 159 H (70-110) mg/dL Calcium 8.3 L (8.4-10.2) mg/dL Total Protein 5.5 L (6.3-8.2) g/dL Albumin 3.4 L (3.5-5.0) g/dL
--- NOTE | 2022-02-27 10:10 | P.PN ---
Subjective Progress Note Date: 02/27/22 Principal diagnosis: status post lumbar decompression/fusion postoperative day #3 Is evaluation of 02/25/2022, the patient is being seen for a follow-up in the intensive care unit. The patient is post laminectomy and fusion/decompression of the spine and this was done on multiple levels. The patient overnight was kept on a mechanical ventilator. This morning, the patient is on propofol which is running at 35 mcg/kg/m. The patient is well sedated and the patient is quite sick sinus with a mechanical ventilator. The patient is requiring no pressors. The patient on normal saline in the at the rate of 50 mL an hour. The patient is on a mechanical ventilator on assist control mode at the rate of 18, tidal volume of 450, FiO2 of 40% with a PEEP of 5. The blood gas from today showed a pH of 7.41 with a pCO2 of 35 and pO2 of 138. Chest x-ray shows smaller lung volumes, some mild elevation of the right hemidiaphragm. ET tube is sitting just at the level of the aortic knob. No evidence of any pneumothorax. No airspace disease or consolidations. The patient also had a CT angiogram that showed no evidence of any pulmonary embolism. That showed atelectatic change in lung bases and various up other lung segments. No effusion. No lung collapse. CAT scan of the lumbosacral spine was also completed. The surgical one-sided dry clean and intact. The Hemovac output is bloody and its minimal at this point in time. The patient is afebrile. The patient is in atrial fibrillation. Rate is controlled. The patient is receiving Dilaudid for pain control.Blood work from today shows a white cell count of 14.7 with a hemoglobin of 10.1 and a platelet count of 232. The patient also has a sodium level of 135, potassium level of 4.4, chloride is 106 with a bicarb of 23 and a BUN of 15 and a creatinine of 0.5. On 02/26/2022, the patient is extubated and the patient is currently on room air oxygen. Pulse ox is around 91%. Chest x-rays showing a small left-sided pleural effusion, atelectatic change in the right lung base. The patient is able to move lower extremities. She has some limited numbness in her fingers the first and second finger and left upper extremity. Otherwise, she is hemodynamically stable. She remained nature fibrillation. She was started on Cardizem drip which is about 5 mg an hour for rate control and this was started yesterday. Her heart rate is under better control. The patient is also on beta blockers and the patient is on atenolol 100 mg by mouth on a daily basis. Pain is under adequate control. She is requiring Dilaudid 1 mg every 3 hours and 0.5 mg every 2 hours on an as-needed basis. She is also receiving Percocet 10/325 mg every 6 hours. She is currently also on IV fluids in the form of normal saline at the rate of 100 mL an hour. She remains on Decadron. Surgical 1 site is clean. The Hemovac has drained approximately 50 mL overnight and the output is minimal as such. No other significant events. No chest pain. No shortness of breath. White second visit 17 with a hemoglobin of 8.7. As such there is a some drop in hemoglobin. BUN is at 20 creatinine of 0.6 and a sodium level is at 135. She is using the incentive spirometer. She is pulling approximately 3000. Reevaluated today on 02/27/22, patient remains in the ICU, patient is doing fairly well. She is on room air, she is in atrial fibrillation, she is relatively asymptomatic. patient has IV fluid at 50 mL per hour, she is off all the different drips otherwise. WBC count is 17.9 hemoglobin is 8.7 and electrolytes are normal BUN is 20 creatinine 0.55. Chest x-ray from 02/26 is basically unremarkable.patient denies any shortness of breath, no cough, no wheezing, no chest pain, no further episodes of nausea or vomiting. Objective - Vital Signs Vital signs: Vital Signs Temp 98.2 F 02/27/22 04:00 Pulse 99 02/27/22 04:00 Resp 17 02/27/22 04:00 BP 135/74 02/27/22 04:00 Pulse Ox 93 L 02/27/22 04:00 FiO2 40 02/25/22 11:10 Intake & Output 02/26/22 02/27/22 02/27/22 18:59 06:59 18:59 Intake Total 957.083 600 Output Total 1125 990 Balance -167.917 -390 Weight 130.9 kg Intake: IV 700 600 Sodium Chloride 0.9% 1, 700 200 000 ml @ 50 mls/hr IV . Q20H MEHUL Rx#:[id number] Sodium Chloride 0.9% 1, 400 000 ml @ 50 mls/hr IV . Q20H MEHUL Rx#:[id number] Intake, IV Titration 107.083 Amount Diltiazem 125 mg In 107.083 Sodium Chloride 0.9% 100 ml @ Per Protocol IV .Q0M MEHUL Rx#:[id number] Oral 150 Output: Drainage 100 40 Back 1/2 suction Hemovac 20 30 Back Full Suction Hemovac 80 10 Urine 1025 950 Other: Voiding Method Indwelling Catheter Indwelling Catheter ABP, PAP, CO, CI - Last Documented Arterial Blood Pressure 97/74 - Exam Physical Exam: Revealed a 71-year-old female in no distress. Head: Atraumatic, normocephalic. HEENT:[Neck is supple.] [No neck masses.] [No thyromegaly.] [No JVD.] Chest: [Clear throughout, no crackles, no rhonchi, no wheezes.] Cardiac Exam: [irregular irregular rhythm.Normal S1 and S2, no S3 gallop, no murmur.] Abdomen: [Soft, nontender, no megaly, no rebound, no guarding, normal bowel sounds.] Extremities: [No clubbing, no edema, no cyanosis.] Neurological Exam: [No focal neurologic deficit.]alert oriented 3, no gross focal deficits. Psychiatric: Normal mood affect and normal mental status examination. Skin: No rashes. - Labs CBC & Chem 7: 02/27/22 05:45 02/27/22 05:45 Labs: Abnormal Lab Results - Last 24 Hours (Table) 02/26/22 02/26/22 02/27/22 Range/Units 12:11 21:36 05:45 WBC 17.9 H (3.8-10.6) k/uL RBC 2.95 L (3.80-5.40) m/uL Hgb 8.7 L (11.4-16.0) gm/dL Hct 25.9 L (34.0-46.0) % Sodium (137-145) mmol/L BUN (7-17) mg/dL Glucose (74-99) mg/dL POC Glucose (mg/dL) 169 H 180 H (70-110) mg/dL Calcium (8.4-10.2) mg/dL Total Protein (6.3-8.2) g/dL Albumin (3.5-5.0) g/dL 02/27/22 02/27/22 Range/Units 05:45 06:59 WBC (3.8-10.6) k/uL RBC (3.80-5.40) m/uL Hgb (11.4-16.0) gm/dL Hct (34.0-46.0) % Sodium 133 L (137-145) mmol/L BUN 20 H (7-17) mg/dL Glucose 167 H (74-99) mg/dL POC Glucose (mg/dL) 159 H (70-110) mg/dL Calcium 8.3 L (8.4-10.2) mg/dL Total Protein 5.5 L (6.3-8.2) g/dL Albumin 3.4 L (3.5-5.0) g/dL Assessment and Plan Assessment: impression: Lumbar decompression/fusion postoperative day #3 Cardiac arrest, brief pulseless electrical activity encountered in the operating room exact etiology is not clear. Non-anion gap metabolic acidosis, resolved Acute hypoxic/hypercapnic respiratory failure secondary to cardiac arrest/pulseless electrical activity, patient was extubated yesterday by Dr. Pulliam. Morbid obesity. BMI of 41.1 History of right hemidiaphragm paralysis History of right-sided breast cancer Chronic atrial fibrillation Dyslipidemia Benign essential hypertension recommendation: Continue present supportive care measures Continue beta blockers and oral Cardizem. Continue incentive spirometry Continue pain control consider transferring to a groundwater monitoring technician bed today. Time with Patient: Less than 30
[2022-02-27 12:01] LABS: Glucose,Whole Blood 198 mg/dL (70-110)
--- NOTE | 2022-02-27 12:44 | CA ---
Transthoracic Echo Report Name: Gabrielle Gee Age: 71 Gender: F : 1950 Exam Date: 02/27/2022 07:48 Exam Location: [facility] Ht (in): 67 Wt (lb): 288 Ordering Physician: Sidra Campa DO Attending/Referring Phys: [id number], Katheryn [employer] Dive Training Instructor Cierra Brooke, KAMLESH Procedure CPT: Indications: chf Cardiac Hx: Technical Quality: Fair Contrast 1: Total Dose (mL): Contrast 2: Total Dose (mL): MEASUREMENTS (Male / Female) Normal Values 2D ECHO LV Diastolic Diameter PLAX 3.9 cm 4.2 - 5.9 / 3.9 - 5.3 cm LV Systolic Diameter PLAX 3.2 cm IVS Diastolic Thickness 1.2 cm 0.6 - 1.0 / 0.6 - 0.9 cm LVPW Diastolic Thickness 1.2 cm 0.6 - 1.0 / 0.6 - 0.9 cm LV Relative Wall Thickness 0.6 RV Internal Dim ED PLAX 3.4 cm LA Systolic Diameter LX 4.3 cm 3.0 - 4.0 / 2.7 - 3.8 cm LA Volume 52.7 cm??? 18 - 58 / 22 - 52 cm??? M-MODE Aortic Root Diameter MM 3.5 cm MV E Point Septal Separation 1.4 cm AV Cusp Separation MM 1.8 cm DOPPLER AV Peak Velocity 127.8 cm/s AV Peak Gradient 6.5 mmHg TR Peak Velocity 418.6 cm/s TR Peak Gradient 70.1 mmHg Right Ventricular Systolic Press 72.0 mmHg FINDINGS Left Ventricle Left ventricular ejection fraction is estimated at 35-40 %. Left ventricular cavity size normal. Mildly increased septal wall thickness. Mildly increased posterior wall thickness. Right Ventricle Mild right ventricular dilatation. Severe pulmonary hypertension. Right ventricular systolic pressure estimated at 72 mm hg. Right Atrium Normal right atrial size. Left Atrium Mildly increased left atrial diameter. No evidence for an atrial septal defect. Mitral Valve Mitral valve thickened. Mild mitral annular calcification. Moderate mitral regurgitation. Aortic Valve Trileaflet aortic valve. Focal thickening of the aortic valve cusps. Trace to mild aortic regurgitation. Tricuspid Valve Structurally normal tricuspid valve. Moderate tricuspid regurgitation. Pulmonic Valve Pulmonic valve not well visualized. Pericardium Normal pericardium. No pericardial effusion. Aorta Normal size aortic root and proximal ascending aorta. CONCLUSIONS Impaired LV function with an EF between 35-40 Moderate mitral regurgitation Previewed by: Dr. Artur Ren MD (Electronically Signed) Final Date: 27 February 2022 12:43
--- NOTE | 2022-02-27 13:23 | PN ---
PROGRESS NOTE HISTORY OF PRESENT ILLNESS: Gabrielle is a 71-year-old lady with history of atrial flutter, fibrillation, hypertension, who underwent elective back surgery and was found to have atrial flutter during the study and became very bradycardic with a heart rate dropping into the 20s and 30s due to which CPR was done and she was transferred to ICU. She is feeling better, did not have any further episodes of bradycardia. She remains in atrial flutter with controlled ventricular rate. Does not have any chest pain or shortness of breath, but her blood pressures are poorly controlled as is the heart rate this morning because of pain. PHYSICAL EXAMINATION: VITAL SIGNS: Heart rate is 103 beats per minute, blood pressure is 140/72, respiratory rate is 18, and afebrile. NECK: There is no jugular venous distention. CHEST: Reveals good air entry bilaterally. HEART: Reveals first and second heart sounds irregular rhythm. EXTREMITIES: Did not reveal any edema. Peripheral pulses are felt. LABORATORY DATA: Lab shows hemoglobin of 8.7, platelet count is 208, potassium is 4.6, creatinine is 0.5. ASSESSMENT: Atrial fibrillation, flutter with controlled ventricular rate. PLAN: I will continue the patient on Tenormin 100 mg daily, Cardizem CD 180 daily, and Xarelto 20 mg daily. If heart rate is poorly controlled, we can increase the dose of diltiazem to 240 mg daily. MMRAJANL / ELIZABETHN: [id number] /
[2022-02-27 16:46] LABS: Glucose,Whole Blood 173 mg/dL (70-110)
[2022-02-27] MEDS: RIVAROXABAN 20 MG TAB PO SCH (17:26)
[2022-02-27 20:18] LABS: Glucose,Whole Blood 205 mg/dL (70-110)
[2022-02-28] MEDS: ACETAMINOPHEN TAB 325 MG TAB PO SCH ×4 (00:36→20:05)
[2022-02-28] MEDS: oxyCODONE-APAP 7.5-325MG 1 EACH TAB PO PRN ×4 (00:38→18:56)
[2022-02-28] MEDS: DEXAMETHASONE SOD PHOSPHATE 4 MG/ML 1 ML VIAL IVP SCH ×5 (00:38→23:05)
[2022-02-28] MEDS: SODIUM CHLORIDE 0.9% 1,000 ML IV SCH (03:21)
[2022-02-28] MEDS: HYDROmorphone 1 MG/ML 1 ML SYRINGE IVP PRN ×8 (03:27→23:05)
[2022-02-28 06:25] LABS: Glucose,Whole Blood 163 mg/dL (70-110)
[2022-02-28] MEDS: LEVOTHYROXINE 88 MCG TAB PO SCH (06:45)
[2022-02-28] MEDS: INSULIN ASPART (NovoLOG) 100 UNIT/ML VIAL SQ SCH ×4 (06:45→20:23)
[2022-02-28 08:04] LABS: African American GFR (CKD) >90 (>60 ml/min/1.73 sqM); Anion Gap 7 mmol/L; Blood Urea Nitrogen 19 mg/dL (7-17); Calcium 8.3 mg/dL (8.4-10.2); Carbon Dioxide 24 mmol/L (22-30); Chloride 101 mmol/L (98-107); Glucose 163 mg/dL (74-99); Non-African American GFR(CKD) >90 (>60 ml/min/1.73 sqM); Sodium 132 mmol/L (137-145)
[2022-02-28 08:10] LABS: Potassium 4.6 mmol/L (3.5-5.1)
[2022-02-28] MEDS: DULoxetine HCL 60 MG CAPSULE.DR PO SCH (08:10)
[2022-02-28] MEDS: GABAPENTIN 300 MG CAP PO SCH ×3 (08:10→21:04)
[2022-02-28] MEDS: ATORVASTATIN 10 MG TAB PO SCH (08:10)
[2022-02-28] MEDS: DILTIAZEM CD 180 MG CAP.ER.24H PO SCH (08:11)
[2022-02-28] MEDS: atenoloL 50 MG TAB PO SCH (08:11)
--- NOTE | 2022-02-28 10:41 | P.PN ---
Subjective Progress Note Date: 02/28/22 Principal diagnosis: status post lumbar decompression/fusion postoperative day #4 Is evaluation of 02/25/2022, the patient is being seen for a follow-up in the intensive care unit. The patient is post laminectomy and fusion/decompression of the spine and this was done on multiple levels. The patient overnight was kept on a mechanical ventilator. This morning, the patient is on propofol which is running at 35 mcg/kg/m. The patient is well sedated and the patient is quite sick sinus with a mechanical ventilator. The patient is requiring no pressors. The patient on normal saline in the at the rate of 50 mL an hour. The patient is on a mechanical ventilator on assist control mode at the rate of 18, tidal volume of 450, FiO2 of 40% with a PEEP of 5. The blood gas from today showed a pH of 7.41 with a pCO2 of 35 and pO2 of 138. Chest x-ray shows smaller lung volumes, some mild elevation of the right hemidiaphragm. ET tube is sitting just at the level of the aortic knob. No evidence of any pneumothorax. No airspace disease or consolidations. The patient also had a CT angiogram that showed no evidence of any pulmonary embolism. That showed atelectatic change in lung bases and various up other lung segments. No effusion. No lung collapse. CAT scan of the lumbosacral spine was also completed. The surgical one-sided dry clean and intact. The Hemovac output is bloody and its minimal at this point in time. The patient is afebrile. The patient is in atrial fibrillation. Rate is controlled. The patient is receiving Dilaudid for pain control.Blood work from today shows a white cell count of 14.7 with a hemoglobin of 10.1 and a platelet count of 232. The patient also has a sodium level of 135, potassium level of 4.4, chloride is 106 with a bicarb of 23 and a BUN of 15 and a creatinine of 0.5. On 02/26/2022, the patient is extubated and the patient is currently on room air oxygen. Pulse ox is around 91%. Chest x-rays showing a small left-sided pleural effusion, atelectatic change in the right lung base. The patient is able to move lower extremities. She has some limited numbness in her fingers the first and second finger and left upper extremity. Otherwise, she is hemodynamically stable. She remained nature fibrillation. She was started on Cardizem drip which is about 5 mg an hour for rate control and this was started yesterday. Her heart rate is under better control. The patient is also on beta blockers and the patient is on atenolol 100 mg by mouth on a daily basis. Pain is under adequate control. She is requiring Dilaudid 1 mg every 3 hours and 0.5 mg every 2 hours on an as-needed basis. She is also receiving Percocet 10/325 mg every 6 hours. She is currently also on IV fluids in the form of normal saline at the rate of 100 mL an hour. She remains on Decadron. Surgical 1 site is clean. The Hemovac has drained approximately 50 mL overnight and the output is minimal as such. No other significant events. No chest pain. No shortness of breath. White second visit 17 with a hemoglobin of 8.7. As such there is a some drop in hemoglobin. BUN is at 20 creatinine of 0.6 and a sodium level is at 135. She is using the incentive spirometer. She is pulling approximately 3000. Reevaluated today on 02/27/22, patient remains in the ICU, patient is doing fairly well. She is on room air, she is in atrial fibrillation, she is relatively asymptomatic. patient has IV fluid at 50 mL per hour, she is off all the different drips otherwise. WBC count is 17.9 hemoglobin is 8.7 and electrolytes are normal BUN is 20 creatinine 0.55. Chest x-ray from 02/26 is basically unremarkable.patient denies any shortness of breath, no cough, no wheezing, no chest pain, no further episodes of nausea or vomiting. Reevaluated today on 02/28/22, patient remains in the ICU as an overflow, she is on room air, not in any distress, but she does have lower extremities weakness and she seems to be generally weak. Continues to have a right triple-lumen catheter in the cervical region, and I'm recommending that we transition to a midline, and discontinue that triple-lumen catheter. Patient denies any shortness of breath, no cough, no wheezing, no major issues overnight. Basic metabolic profile this morning is relatively unremarkable. Objective - Vital Signs Vital signs: Vital Signs Temp 98.1 F 02/28/22 08:00 Pulse 102 H 02/28/22 08:00 Resp 18 02/28/22 08:00 BP 117/80 02/28/22 08:00 Pulse Ox 97 02/28/22 08:00 FiO2 40 02/25/22 11:10 Intake & Output 02/27/22 02/28/22 02/28/22 18:59 06:59 18:59 Intake Total 1400 650 Output Total 1780 1795 640 Balance -830 -8212 -468 Weight 130.5 kg Intake: IV 550 650 Sodium Chloride 0.9% 1, 500 550 000 ml @ 50 mls/hr IV . Q20H MEHUL Rx#:[id number] ceFAZolin 2 gm In Sodium 50 100 Chloride 0.9% 50 ml @ 100 mls/hr IVPB Q8H MEHUL Rx#: [id number] Oral 850 Output: Drainage 80 95 Left Hemovac 15 75 Right hemovac 65 20 Urine 1700 1700 640 Other: Voiding Method Indwelling Catheter Indwelling Catheter ABP, PAP, CO, CI - Last Documented Arterial Blood Pressure 97/74 - Exam Physical Exam: Revealed a 71-year-old female in no distress. On room air. Head: Atraumatic, normocephalic. HEENT:[Neck is supple.] [No neck masses.] [No thyromegaly.] [No JVD.] Triple- lumen catheter noted in the right IJ. Chest: [Clear throughout, no crackles, no rhonchi, no wheezes.] Cardiac Exam: [irregular irregular rhythm.Normal S1 and S2, no S3 gallop, no murmur.] Abdomen: [Soft, nontender, no megaly, no rebound, no guarding, normal bowel sounds.] Extremities: [No clubbing, no edema, no cyanosis.] Neurological Exam: [No focal neurologic deficit.]alert oriented 3, no gross focal deficits. Psychiatric: Normal mood affect and normal mental status examination. Skin: No rashes. - Labs CBC & Chem 7: 02/27/22 05:45 02/28/22 07:16 Labs: Abnormal Lab Results - Last 24 Hours (Table) 02/27/22 02/27/22 02/27/22 Range/Units 12:00 16:44 20:16 Sodium (137-145) mmol/L BUN (7-17) mg/dL Glucose (74-99) mg/dL POC Glucose (mg/dL) 198 H 173 H 205 H (70-110) mg/dL Calcium (8.4-10.2) mg/dL 02/28/22 02/28/22 Range/Units 06:12 07:16 Sodium 132 L (137-145) mmol/L BUN 19 H (7-17) mg/dL Glucose 163 H (74-99) mg/dL POC Glucose (mg/dL) 163 H (70-110) mg/dL Calcium 8.3 L (8.4-10.2) mg/dL Assessment and Plan Assessment: impression: Lumbar decompression/fusion postoperative day #4 Cardiac arrest, brief pulseless electrical activity encountered in the operating room exact etiology is not clear. Non-anion gap metabolic acidosis, resolved Acute hypoxic/hypercapnic respiratory failure secondary to cardiac arrest/pulseless electrical activity, patient was extubated yesterday by Dr. Pulliam. Morbid obesity. BMI of 41.1 History of right hemidiaphragm paralysis History of right-sided breast cancer Chronic atrial fibrillation Dyslipidemia Benign essential hypertension recommendation: Transfer patient to 3 S./cardiology floor with monitor bed. Continue present supportive care measures Continue beta blockers and oral Cardizem. Continue incentive spirometry Continue pain control We'll follow as needed. Time with Patient: Less than 30
--- NOTE | 2022-02-28 11:10 | PN ---
PROGRESS NOTE HISTORY OF PRESENT ILLNESS: Gabrielle is a 71-year-old lady, who underwent elective back surgery and subsequently developed atrial flutter and was very bradycardic. The heart rate dropped into the 20s and 30s and she did not have any further episodes of bradycardia since the original event. She remains in atrial fibrillation with somewhat of a poorly controlled ventricular rate with heart rates around 110 beats per minute. The patient is on Tenormin 100 mg daily and Cardizem CD 180 mg daily, I will increase it to 240 mg daily. PHYSICAL EXAMINATION: VITAL SIGNS: Afebrile. Heart rate is 110 beats per minute. Blood pressure is 117/82, respiratory rate is 18, O2 saturation is 97% on room air. NECK: There is no jugular venous distention. Carotid upstroke is normal. There is no bruit. CHEST: Reveals good air entry bilaterally. HEART: Reveals first and second heart sounds. No gallop. No murmur. ABDOMEN: Soft. EXTREMITIES: Did not reveal any edema. Peripheral pulses are felt. LABORATORY DATA: Labs show a creatinine of 0.5, potassium is 4.6, hemoglobin is 8.7. ASSESSMENT: Persistent atrial fibrillation with poorly controlled ventricular rate. PLAN: The patient will continue the Xarelto, increase the dose of Cardizem to 240 mg daily and continue the Tenormin. She had an echocardiogram on this admission that showed an ejection fraction of 35% to 40% with moderate mitral regurgitation. The patient had an echo in 2019 that showed normal LV function. I do not have any of her outpatient records with me, but if this LV systolic dysfunction is new, she needs evaluation for that. We will probably consider doing a stress test at least. MMODL / IJN: [id number] /
[2022-02-28 11:36] LABS: Glucose,Whole Blood 183 mg/dL (70-110)
[2022-02-28 11:46] LABS: HCT 26.3 % (34.0-46.0); HGB 9.4 gm/dL (11.4-16.0); MCH 30.9 pg (25.0-35.0); MCHC 35.7 g/dL (31.0-37.0); MCV 86.5 fL (80.0-100.0); Mean Platelet Volume 10.9; Platelet Count 179 k/uL (150-450); RBC 3.04 m/uL (3.80-5.40); RDW 14.3 % (11.5-15.5)
[2022-02-28 11:59] LABS: Glucose,Whole Blood 206 mg/dL (70-110)
[2022-02-28] MEDS: ARTIFICIAL TEARS-HYPROMELLOSE DROPS 15 ML BTL BOTH EYES PRN ×2 (12:02→20:26)
--- NOTE | 2022-02-28 12:48 | P.PN ---
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 Patient is currently sitting up in chair. She states she worked with physical therapy and stood with walker for approximately 10 minutes. Patient reports attempt to stand last night at bedside and had to be assisted x5 staff to floor due to her legs giving out. She states they had to place a zulema lift sling to assist patient back to bed. Patient has complaint of burning sensation mid back and some soreness in right axilla area. She is moving her BLE and BUE with good strength. Denies any numbness/tingling. External catheter in place and patent. She denies any fever/chills, nausea/vomiting, or chest pain. Objective - Vital Signs Vital signs: Vital Signs Temp 98.1 F 02/28/22 08:00 Pulse 102 H 02/28/22 08:00 Resp 18 02/28/22 08:00 BP 117/80 02/28/22 08:00 Pulse Ox 97 02/28/22 08:00 FiO2 40 02/25/22 11:10 Intake & Output 02/27/22 02/28/22 02/28/22 18:59 06:59 18:59 Intake Total 1400 650 Output Total 1780 1795 640 Balance -380 -3419 -553 Weight 130.5 kg Intake: IV 550 650 Sodium Chloride 0.9% 1, 500 550 000 ml @ 50 mls/hr IV . Q20H MEHUL Rx#:[id number] ceFAZolin 2 gm In Sodium 50 100 Chloride 0.9% 50 ml @ 100 mls/hr IVPB Q8H MEHUL Rx#: [id number] Oral 850 Output: Drainage 80 95 Left Hemovac 15 75 Right hemovac 65 20 Urine 1700 1700 640 Other: Voiding Method Indwelling Catheter Indwelling Catheter Indwelling Catheter ABP, PAP, CO, CI - Last Documented Arterial Blood Pressure 97/74 - Exam Physical Examination General: The patient is awake and alert, in no acute distress Skin: Skin is warm and dry with no obvious rashes or lesions. Hairy patches absent, no dorsal skin dimples, no cafe au lait spots, Surgical incision to thoracic and lumbar region. Dressing is CDI with Drain present. Eye: Pupils are equal, round and reactive to light, extra-ocular movements are intact; there is normal conjunctiva bilaterally. Neck: The neck is supple, there is no tenderness and ROM intact. Cardiovascular: There is a irregular rate and rhythm. No murmur, rub or gallop is appreciated. Respiratory: Lungs are clear to auscultation, respirations are non-labored, breath sounds are equal. Gastrointestinal: Soft, non-distended, non-tender abdomen. Back: There is slight tenderness to palpation in the para-lumbar region. There is no obvious deformity . Musculoskeletal: ROM limited secondary to pain and stiffness from surgical procedure. Muscle strength in all major muscle groups of bilateral upper extremities 5/5, bilateral lower extremities 4-/5. Neurological: CN 2-12 intact. There are no obvious motor or sensory deficits. Movement and coordination equal and intact. Sensory exam to light touch intact C5-T1 and intact from L2-S1. Reflexes 2/4 in bilateral upper and lower extremities. Negative Hoffmans, babinski, and clonus signs. Psychiatric: Cooperative, appropriate mood & affect, normal judgment. - Labs CBC & Chem 7: 02/28/22 10:56 02/28/22 07:16 Labs: Abnormal Lab Results - Last 24 Hours (Table) 02/27/22 02/27/22 02/28/22 Range/Units 16:44 20:16 06:12 WBC (3.8-10.6) k/uL RBC (3.80-5.40) m/uL Hgb (11.4-16.0) gm/dL Hct (34.0-46.0) % Sodium (137-145) mmol/L BUN (7-17) mg/dL Glucose (74-99) mg/dL POC Glucose (mg/dL) 173 H 205 H 163 H (70-110) mg/dL Calcium (8.4-10.2) mg/dL 02/28/22 02/28/22 02/28/22 Range/Units 07:16 10:56 11:34 WBC 20.0 H (3.8-10.6) k/uL RBC 3.04 L (3.80-5.40) m/uL Hgb 9.4 L (11.4-16.0) gm/dL Hct 26.3 L (34.0-46.0) % Sodium 132 L (137-145) mmol/L BUN 19 H (7-17) mg/dL Glucose 163 H (74-99) mg/dL POC Glucose (mg/dL) 183 H (70-110) mg/dL Calcium 8.3 L (8.4-10.2) mg/dL 02/28/22 Range/Units 11:57 WBC (3.8-10.6) k/uL RBC (3.80-5.40) m/uL Hgb (11.4-16.0) gm/dL Hct (34.0-46.0) % Sodium (137-145) mmol/L BUN (7-17) mg/dL Glucose (74-99) mg/dL POC Glucose (mg/dL) 206 H (70-110) mg/dL Calcium (8.4-10.2) mg/dL Assessment and Plan Assessment: 1. 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 Appreciate medical consultation 2. Change surgical dressing as needed to maintain clean and dry. 3. Pain management - oxycodone; Dilaudid; Flexeril; gabapentin; Tylenol 4. GI prophylaxis - senna; milk of mag 5. DVT prophylaxis - Xarelto 6. PT/OT recs 7. Encourage incentive spirometer use 8. Discharge planning - pending
--- NOTE | 2022-02-28 13:59 | P.PN ---
Subjective Progress Note Date: 02/28/22 Pt s/e doing well. No issues overnight. Pain controlled currently, was up in chair most of the day yesterday. Had difficulty with PT as she is having weakness in LE at this time, but she states she is getting better. Denies any f/c/sob/cp at this time. States no LOZANO, no Blurred vision. Had some nausea but no vomiting overnight. Objective - Vital Signs Vital signs: Vital Signs Temp 98.1 F 02/28/22 08:00 Pulse 102 H 02/28/22 08:00 Resp 18 02/28/22 08:00 BP 117/80 02/28/22 08:00 Pulse Ox 97 02/28/22 08:00 FiO2 40 02/25/22 11:10 Intake & Output 02/27/22 02/28/22 02/28/22 18:59 06:59 18:59 Intake Total 1400 650 Output Total 1780 1795 640 Balance -380 -9902 -640 Weight 130.5 kg Intake: IV 550 650 Sodium Chloride 0.9% 1, 500 550 000 ml @ 50 mls/hr IV . Q20H MEHUL Rx#:[id number] ceFAZolin 2 gm In Sodium 50 100 Chloride 0.9% 50 ml @ 100 mls/hr IVPB Q8H MEHUL Rx#: [id number] Oral 850 Output: Drainage 80 95 Left Hemovac 15 75 Right hemovac 65 20 Urine 1700 1700 640 Other: Voiding Method Indwelling Catheter Indwelling Catheter ABP, PAP, CO, CI - Last Documented Arterial Blood Pressure 97/74 - Exam Physical Exam: -Patient is alert and oriented 3 appears well-nourished well-hydrated is in no acute distress. They do not appear septic. -There is TTP about the incision site, no hematoma -Incision is CDI, no EEE, no drainage, drains in place with min out both -Upper extremities show 4+ out of 5 strength in all major muscle groups. Normal deconditioning -Lower extremities with 4+ out of 5 strength in all major muscle groups She does show some weakness in the left hip flexors but otherwise has reasonable strength without any other focal deficits. -There is [FROM] that is [painless] of the b/l UE and LE in all major joints. Neg log roll, Neg SLR -They are intact to light touch sensation in C5 to T1 and L2 to S1 nerve dist ribution. She c/o some numbness in superficial radial nerve distribution of Right hand that is resolving -DTR [2]/4 all upper and lower extremities -Patient has palpable distal pulses all 4 ext -Compartments are soft and compressible. -Patient shows a negative Gilbert's [-Neg Hoffmans b/l] [-Neg Clonus b/l] [-Neg babinski b/l] Cranial nerves II through XII are grossly intact. No nystagmus. - Labs CBC & Chem 7: 02/27/22 05:45 02/28/22 07:16 Labs: Abnormal Lab Results - Last 24 Hours (Table) 02/27/22 02/27/22 02/27/22 Range/Units 12:00 16:44 20:16 Sodium (137-145) mmol/L BUN (7-17) mg/dL Glucose (74-99) mg/dL POC Glucose (mg/dL) 198 H 173 H 205 H (70-110) mg/dL Calcium (8.4-10.2) mg/dL 02/28/22 02/28/22 Range/Units 06:12 07:16 Sodium 132 L (137-145) mmol/L BUN 19 H (7-17) mg/dL Glucose 163 H (74-99) mg/dL POC Glucose (mg/dL) 163 H (70-110) mg/dL Calcium 8.3 L (8.4-10.2) mg/dL Assessment and Plan Assessment: POD 4 Revision G18-[id number] decompression fusion Prolonged ventilated recovery, expected from surgery Plan: -Appreciate healthcare network consultant and team management. -Activity: Ambulate QID, OOB all meals, up and about, limit lifting bending twisting to less than 5 lbs. Use walker or cane if needed for stability. -Daily PT/OT, increase ambulation strength and balance. -TLSO brace when up and about, not needed for chair sitting or rest. -Pain control: Adequate at this time -Meds: reviewed, Cont reglan doses and zofran. -GI ppx: senna, Miralax -DC wiley when up and about, bedside commode if needed -DVT PPX: Horeladam mech -Hygiene: Shower today. Maintain dressing clean and dry. Meticulous cleaning after BMs away from incision site -Drains: DC superficial drain today. Maintain deep drain to gravity suction at this time. -OK with TF from ICU when able -Watch for LOZANO, increased N/V, Blurred vision. -Encourage IS 10x/hr -Dispo: [Pending]
--- NOTE | 2022-02-28 15:02 | P.PN ---
Subjective Progress Note Date: 02/28/22 Patient is a 71 yo CF with a hx of A fib s/p ablation, GERD, hypertension, dyslipidemia, and right diaphragmatic paralysis who presented for T10 to Pelvis decompression and fusion with revision. Blood loss and the case was approximately 1900 mL. During her operative course she required phenylephrine IV infusion, Vasopressin IVP. She also received TXA gtt. She received 7 L of lactated Ringer's. She received 1 amp of sodium bicarb intaop. She also received albumin. Her operative course was complicated with a cardiac arrest. During the case she developed A. fib with RVR and then quickly transitioned into bradycardia with a low end-tidal CO2. She received 0.4 of atropine and CPR was started. She received epinephrine 0.5. She achieved ROSC. Total down time was less than 5 minutes. Her levo was weaned overnight. During her sedation holiday she was responding appropriately. She was extubated on 02/25. She continued to do well with struggled with pain. Patient seen and examined at bedside. She reports 8/10 pain in her lower back. She complains of some right leg weakness. Tolerated regular diet this morning. She denies any chest pain or shortness of breath. General: ill appearing, mild distress due to pain, appears at stated age Derm: warm, dry Head: atraumatic, normocephalic, symmetric Eyes: EOMI, no lid lag, anicteric sclera Mouth: no lip lesion, mucus membranes moist Cardiovascular: S1S2 irregular, no murmur Lungs: CTA bilateral, no rhonchi, no rales , no accessory muscle use Ext: no gross muscle atrophy, no edema, no contractures Neuro: Moving all 4 extremities independently, light touch intact Psych: Alert, oriented, appropriate affect #T10 to pelvis decompression with fusion. - Management per ortho. #Post-op pain - Continue with gabapentin, Valium, and Percocet - Continue with Dilaudid and Percocet - Patient has no stairs and planning on going home, she has nearby help from family but lives alone - PT and OT consulted #Aborted sudden cardiac - Cardiology on board - Echocardiogram shows EF 35-40% with moderate MR - Telemetry monitoring #Systolic CHF - Euvolemic - Echo from 2019 shows EF 50-55% - Patient will need ischemic workup - Patient would benefit from ACEi and Aldactone prior to discharge - Cardiology on board #Leukocytosis - Suspect secondary to steroids - Follow CBC and fever profile #Right diaphragmatic paralysis - Aggressive pulmonary hygiene - Pulm recs #Acute blood loss anemia, anticipated outcome of surgery - No indication for transfusion at this time - Follow CBC - Coags normal #A flutter with RVR - Xarelto resumed on 02/26 - Cardizem increased - Suspect that suboptimal rate control is related to pain. We'll work on in creasing pain medications. - Tele #HLD - Statin #HTN - Atenolol, cardizem - Follow blood pressures Resolved: Non-anion gap metbolic acidosis, resolved Hypomagnesemia, resolved Postoperative respiratory failure, anticipated outcome of surgery, resolved Objective - Vital Signs Vital signs: Vital Signs Temp 98.2 F 02/28/22 12:00 Pulse 92 02/28/22 12:00 Resp 16 02/28/22 12:00 BP 103/82 02/28/22 12:00 Pulse Ox 96 02/28/22 12:00 FiO2 40 02/25/22 11:10 Intake & Output 02/27/22 02/28/22 02/28/22 18:59 06:59 18:59 Intake Total 1400 650 Output Total 1780 1795 1040 Balance -380 -1145 -1040 Weight 130.5 kg Intake: IV 550 650 Sodium Chloride 0.9% 1, 500 550 000 ml @ 50 mls/hr IV . Q20H MEHUL Rx#:[id number] ceFAZolin 2 gm In Sodium 50 100 Chloride 0.9% 50 ml @ 100 mls/hr IVPB Q8H MEHUL Rx#: [id number] Oral 850 Output: Drainage 80 95 Left Hemovac 15 75 Right hemovac 65 20 Urine 1700 1700 1040 Uretheral (Warren) 400 Other: Voiding Method Indwelling Catheter Indwelling Catheter Indwelling Catheter ABP, PAP, CO, CI - Last Documented Arterial Blood Pressure 97/74 - Labs CBC & Chem 7: 02/28/22 10:56 02/28/22 07:16 Labs: Abnormal Lab Results - Last 24 Hours (Table) 02/27/22 02/27/22 02/28/22 Range/Units 16:44 20:16 06:12 WBC (3.8-10.6) k/uL RBC (3.80-5.40) m/uL Hgb (11.4-16.0) gm/dL Hct (34.0-46.0) % Sodium (137-145) mmol/L BUN (7-17) mg/dL Glucose (74-99) mg/dL POC Glucose (mg/dL) 173 H 205 H 163 H (70-110) mg/dL Calcium (8.4-10.2) mg/dL 02/28/22 02/28/22 02/28/22 Range/Units 07:16 10:56 11:34 WBC 20.0 H (3.8-10.6) k/uL RBC 3.04 L (3.80-5.40) m/uL Hgb 9.4 L (11.4-16.0) gm/dL Hct 26.3 L (34.0-46.0) % Sodium 132 L (137-145) mmol/L BUN 19 H (7-17) mg/dL Glucose 163 H (74-99) mg/dL POC Glucose (mg/dL) 183 H (70-110) mg/dL Calcium 8.3 L (8.4-10.2) mg/dL 02/28/22 Range/Units 11:57 WBC (3.8-10.6) k/uL RBC (3.80-5.40) m/uL Hgb (11.4-16.0) gm/dL Hct (34.0-46.0) % Sodium (137-145) mmol/L BUN (7-17) mg/dL Glucose (74-99) mg/dL POC Glucose (mg/dL) 206 H (70-110) mg/dL Calcium (8.4-10.2) mg/dL
[2022-02-28 16:20] LABS: Glucose,Whole Blood 183 mg/dL (70-110)
[2022-02-28] MEDS: RIVAROXABAN 20 MG TAB PO SCH (19:05)
[2022-02-28 20:14] LABS: Glucose,Whole Blood 255 mg/dL (70-110)
[2022-02-28] MEDS: CYCLOBENZAPRINE 10 MG TAB PO PRN (20:28)
[2022-03-01] MEDS: HYDROmorphone 1 MG/ML 1 ML SYRINGE IVP PRN ×9 (01:10→23:16)
[2022-03-01] MEDS: SODIUM CHLORIDE 0.9% 1,000 ML IV SCH (01:47)
[2022-03-01] MEDS: oxyCODONE-APAP 7.5-325MG 1 EACH TAB PO PRN (04:13)
[2022-03-01 06:04] LABS: Glucose,Whole Blood 181 mg/dL (70-110)
[2022-03-01 06:14] LABS: HCT 27.6 % (34.0-46.0); HGB 9.9 gm/dL (11.4-16.0); MCH 30.9 pg (25.0-35.0); MCHC 35.9 g/dL (31.0-37.0); MCV 86.2 fL (80.0-100.0); Mean Platelet Volume 11.5; Platelet Count 211 k/uL (150-450); Poikilocytosis Slight; RDW 14.7 % (11.5-15.5); WBC 19.5 k/uL (3.8-10.6)
[2022-03-01] MEDS: atenoloL 50 MG TAB PO SCH (06:31)
[2022-03-01] MEDS: LEVOTHYROXINE 88 MCG TAB PO SCH (06:31)
[2022-03-01] MEDS: DEXAMETHASONE SOD PHOSPHATE 4 MG/ML 1 ML VIAL IVP SCH ×4 (06:31→23:16)
[2022-03-01] MEDS: ACETAMINOPHEN TAB 325 MG TAB PO SCH ×4 (06:31→18:25)
[2022-03-01] MEDS: DILTIAZEM CD 240 MG CAP.ER.24H PO SCH (06:32)
[2022-03-01] MEDS: INSULIN ASPART (NovoLOG) 100 UNIT/ML VIAL SQ SCH ×4 (06:32→21:04)
[2022-03-01 08:00] LABS: African American GFR (CKD) >90 (>60 ml/min/1.73 sqM); Anion Gap 6 mmol/L; Blood Urea Nitrogen 19 mg/dL (7-17); Calcium 8.4 mg/dL (8.4-10.2); Carbon Dioxide 25 mmol/L (22-30); Chloride 102 mmol/L (98-107); Glucose 178 mg/dL (74-99); Non-African American GFR(CKD) >90 (>60 ml/min/1.73 sqM); Potassium 4.4 mmol/L (3.5-5.1); Sodium 133 mmol/L (137-145)
--- NOTE | 2022-03-01 08:44 | P.PN ---
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 Patient is currently resting in bed. She states she sat up in the chair at the bedside for most of the day yesterday. Pain medication has been modified to assist with pain management. Patient reports continuing with bed exercises of bilateral lower extremities. She is moving her BLE and BUE with good strength, she is utilizing an assisted device for moving her left lower extremity due to weakness. Patient reports slight numbness to her thumb and index finger of her left hand, in which has been present since procedure. External catheter in place and patent. She denies any fever/chills, nausea/vomiting, or chest pain. Objective - Vital Signs Vital signs: Vital Signs Temp 98 F 03/01/22 04:00 Pulse 114 H 03/01/22 04:38 Resp 14 03/01/22 04:38 BP 155/84 03/01/22 04:38 Pulse Ox 92 L 03/01/22 04:38 FiO2 40 02/25/22 11:10 Intake & Output 02/28/22 03/01/22 03/01/22 18:59 06:59 18:59 Intake Total 790 650 Output Total 1930 2019 Balance -1140 -1370 Weight 136.9 kg Intake: IV 400 650 Sodium Chloride 0.9% 1, 300 550 000 ml @ 50 mls/hr IV . Q20H MEHUL Rx#:[id number] ceFAZolin 2 gm In Sodium 100 100 Chloride 0.9% 50 ml @ 100 mls/hr IVPB Q8H MEHUL Rx#: [id number] Oral 390 Output: Drainage 90 20 Left Hemovac 30 20 Right hemovac 60 Urine 1840 2000 Uretheral (Warren) 400 Other: Voiding Method Indwelling Catheter Indwelling Catheter # Voids 1 2 ABP, PAP, CO, CI - Last Documented Arterial Blood Pressure 97/74 - Exam Physical Examination General: The patient is awake and alert, in no acute distress Skin: Skin is warm and dry with no obvious rashes or lesions. Hairy patches absent, no dorsal skin dimples, no cafe au lait spots, Surgical incision to thoracic and lumbar region. Dressing is CDI with Drain present. Eye: Pupils are equal, round and reactive to light, extra-ocular movements are intact; there is normal conjunctiva bilaterally. Neck: The neck is supple, there is no tenderness and ROM intact. Cardiovascular: There is a irregular rate and rhythm. No murmur, rub or gallop is appreciated. Respiratory: Lungs are clear to auscultation, respirations are non-labored, breath sounds are equal. Gastrointestinal: Soft, non-distended, non-tender abdomen. Back: There is slight tenderness to palpation in the para-lumbar region. There is no obvious deformity . Musculoskeletal: ROM limited secondary to pain and stiffness from surgical procedure. Muscle strength in all major muscle groups of bilateral upper extremities 5/5, right lower extremities 4-/5, left lower extremity 3+/5. Neurological: CN 2-12 intact. There are no obvious motor or sensory deficits. Movement and coordination equal and intact. Sensory exam to light touch intact C5-T1 and intact from L2-S1. Reflexes 2/4 in bilateral upper and lower extremities. Negative Hoffmans, babinski, and clonus signs. Psychiatric: Cooperative, appropriate mood & affect, normal judgment. - Labs CBC & Chem 7: 03/01/22 05:51 03/01/22 07:15 Labs: Abnormal Lab Results - Last 24 Hours (Table) 02/28/22 02/28/22 02/28/22 Range/Units 10:56 11:34 11:57 WBC 20.0 H (3.8-10.6) k/uL RBC 3.04 L (3.80-5.40) m/uL Hgb 9.4 L (11.4-16.0) gm/dL Hct 26.3 L (34.0-46.0) % Sodium (137-145) mmol/L BUN (7-17) mg/dL Glucose (74-99) mg/dL POC Glucose (mg/dL) 183 H 206 H (70-110) mg/dL 02/28/22 02/28/22 03/01/22 Range/Units 16:18 20:12 05:51 WBC 19.5 H (3.8-10.6) k/uL RBC 3.20 L (3.80-5.40) m/uL Hgb 9.9 L (11.4-16.0) gm/dL Hct 27.6 L (34.0-46.0) % Sodium (137-145) mmol/L BUN (7-17) mg/dL Glucose (74-99) mg/dL POC Glucose (mg/dL) 183 H 255 H (70-110) mg/dL 03/01/22 03/01/22 Range/Units 06:03 07:15 WBC (3.8-10.6) k/uL RBC (3.80-5.40) m/uL Hgb (11.4-16.0) gm/dL Hct (34.0-46.0) % Sodium 133 L (137-145) mmol/L BUN 19 H (7-17) mg/dL Glucose 178 H (74-99) mg/dL POC Glucose (mg/dL) 181 H (70-110) mg/dL Assessment and Plan Assessment: 1. 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 Appreciate medical consultation 2. Change surgical dressing as needed to maintain clean and dry. 3. Pain management - oxycodone; Dilaudid; Flexeril; gabapentin; Tylenol 4. GI prophylaxis - senna; milk of mag 5. DVT prophylaxis - Xarelto 6. PT/OT recs 7. Encourage incentive spirometer use 8. Discharge planning - pending
[2022-03-01] MEDS: ATORVASTATIN 10 MG TAB PO SCH (09:20)
[2022-03-01] MEDS: DULoxetine HCL 60 MG CAPSULE.DR PO SCH (09:20)
[2022-03-01] MEDS: GABAPENTIN 300 MG CAP PO SCH ×3 (09:20→21:04)
--- NOTE | 2022-03-01 10:23 | P.OP ---
Date of Procedure: 02/24/22 Preoperative Diagnosis: 1. s/p L2-4 fusion with proximal junctional failure and 30 deg of kyphotic misalignment 2. 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 L4-S1 severe stenosis 4. Neurogenic claudication 5. Mechanical low back pain 6. Complex medical patient Postoperative Diagnosis: 1. s/p L2-4 fusion with proximal junctional failure and 30 deg of kyphotic misalignment 2. 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 L4-S1 severe stenosis 4. Neurogenic claudication 5. Mechanical low back pain 6. Complex medical patient Procedure(s) Performed: 1. L1-2 3 column osteotomy for deformity correction, intradiscal osteotomy (70829) 2. L4-5 osteotomy posteriorlateral approach for deformity correction (82406) 3. Posteriolateral and interbody fusion L1-2, L4-5 and L5-S1 (39058, 25581h5) 4. Revision posteriolateral fusion X51-Iyxgug (38474, 93274, 82807a2) 5. Attachment of the caudal end of the construct to the bony pelvis (48383) 6. Segmental instrumentation T10-P (57806) 7. Insertion of interbody devices L1-2(x2), L4-5 and L5-S1 (61206s8) 8. Dural repair with patch graft (52394) 9. L1-S1 revision decompression with bilateral laminectomy, complete facetectomy and foraminotomy for decompression purposes, mobilization for deformity correction, and access (49865, 76201r1) 10. Exploration of previous fusion L2-4 (08531) 11. Use of [facility] 3D navigation for hardware placement (75685) Use of IONM This case took 75% longer due to the patients BMI, body habitus, extent of scarring and previous surgery, comorbid conditions (Mod 22) Implants: -[place] zeyad and screw system Quad zeyad construct -Amplify DualX cage x1 -Globus Sable Cage x3 -MagnatOs -iFactor -Autograft -Allograft Anesthesia: GETA Surgeon: Thom Alexander Director Physical Therapy #1: Rey Abernathy (Was present and assisted in all aspects of the case) Estimated Blood Loss (ml): 1,900 IV fluids (ml): 7,000 Urine output (ml): 300 Pathology: none sent Condition: stable Disposition: ICU Indications for Procedure: Ms. Gee is presenting for evaluation of low back pain and right lower extremity radiculopathic symptoms. It was my pleasure to have seen and examined Ms. Gee. In our visit today we have had a chance to go over subjective complaints, physical examination findings and treatments including the natural course history without intervention and various interventional options. The patients imaging demonstrates: XRay taken on 11/14/21 of Lumbar Spine: images are reviewed of her lumbar spine demonstrated widespread spondylosis. There are postsurgical changes from L2 to L4 with fusion construct. Interbody as well as posterior lateral fusion. Hardware appears to be in good position and there is good effusion anteriorly. However there is severe breakdown proximally between L1 and L2 with severe kyphosis L1-L2 due to this breakdown and adjacent segment disease as well as proximal junctional failure. This is about a 30 anterior kyphosis at this level and reversal to normal curvature. this creates an overall lumbar lordosis which is essentially negative however her segmental lordosis at her fused segments from L2 to L5 is within reason around 35. However this is negated by the severe kyphosis between L1 and L2. There is also distal junctional failure and adjacent segment disease at L4 5 and L5-S1 with spondylosis and disc degene ration and disc height loss. There are no other fractures or dislocations noted at this time AP pelvis demonstrates congruent level pelvis no fracture CT myelogram scan from 2of Lumbar Spine: this is reviewed. This is somewhat of a poor myelogram study as the dye did not fully extravasate through the thecal sac and a reasonable amount of it is extradural however that which made it into the thecal sac shows reasonable space at L4 5 and L5-S1 with only moderate stenosis centrally. There is more severe stenosis noted L1-L2 as well as L2-L3 secondary to the kyphosis as well as overgrowth. There is likely ligamental overgrowth as well as facet overgrowth in this area. Again alignment is as stated above with severe kyphosis L1 to L2. There are no acute fractures or dislocations otherwise noted. There is L1 to S1 stenosis which is moderate to severe. On physical exam, Ms. Gee demonstrates severely restricted lumbar ROM with tenderness to palpation about the T12-L1 region. Along with this she does also demonstrate global weakness about the bilateral lower extremities that does significantly impact her gait. She does ambulate with a walker due to this. I have explained to the patient that as their condition progresses it will cause further neurological deficits and eventual paralysis. Based on the patients imaging, physical exam, and the rapid progression and disabling nature of their symptoms, at this time I recommend surgery in the form or a: thoracic 10 to pelvis revision Decompression and posterior lateral and interbody Fusion . I discussed the risk and benefits of this procedure at length with Ms. Gee. The patient agreed to considered pursuing the procedure abovementioned. Prior to surgery, she should follow up with her PCP (Cardio, ID, IM etc) for clearance. Questions were invited and answered, and the patient wishes to proceed as outlined below. Currently, I am recommendin. thoracic 10 to pelvis revision Decompression and posterior lateral and interbody Fusion Description of Procedure: The patient was seen and examined in the preoperative area. All preoperative protocols were followed. Informed consent was obtained risks and benefits of the procedure were discussed at length. Risks including bleeding infection damage to the surrounding tissue and risk of reoperation were discussed with the patient. Risk of anesthesia up to and including was a discussed with the patient. These are outlined in the risk review. They were willing to accept these risks and all of the risks of surgery. The patient was given a weight- based dose of antibiotics in the form of 2 g Ancef redosed every 4 hours. The patient was seen and evaluated by the anesthesia team who deemed them fit for surgery. The site was marked, the patient was willing to proceed with the procedure. The patient was transferred to the operative suite by the Department of anesthesia. They were then drifted off to sleep by the department anesthesia and GETA was performed. The patient tolerated this well. [Warren catheter was placed by nursing staff, atraumatically]. Once confirmation of lines and ventilation the patient was transferred to a [prone Tristin table very carefully]. All bony prominences including wrists, elbows, axilla, chest, hips, and thighs, and feet were padded very well. Special attention was paid to the g enitalia and these were padded accordingly. SCDs were placed on bilateral lower extremities and were connected. Arms were well padded and placed [on arm boards up and out in the 90/90 position]. Once in position, again we confirmed good ventilation capabilities and that lines were running appropriately. The patient's thoracolumbar pelvic spine was then exposed. 1010s were placed outlining the incision site. Standard alcohol was used to clean the incision site and allowed to dry. C-arm was used to biomark the patient and confirm level for incision which was marked with a skin marker. Operative briefing was performed with all teams and everyone in agreement to proceed. The patient was then prepped and draped in a normal sterile fashion. Timeout was then performed and all parties were in agreement with the procedure to be performed. Midline skin incision was made over the previously marked and incised area and dissection taken down to the lumbosacral and thoracic fascia which was identified and cleaned with a Marrufo. Midline fasciotomy was then made. Spinous processes were identified above and below previous surgical bed and scar tissue was dissected out of this area. Once identifying these levels we then performed subperiosteal dissection out to transverse processes of T10 through the pelvis and sacral Marielena. We then decorticated posterolaterally with a high-speed bur. We performed exploration of fusion in this area.Previous hardware was identified and removed once removed there was still motion at these segments the hardware at L2 and L3 was loose and was removed the segments were very unstable. We then irrigated the wound and placed a spinous process clamp on L2. An intraoperative 3-D C-arm spent was obtained for [facility] 3-D navigation of the upper portion of our construct. once then was obtained we confirmed its accuracy. We then placed screws from T10 through L2 using a navigated technique. A navigated bur was used to make a military pilot hole followed by a navigated awl tap followed by a navigated screw helper/driver. This was repeated bilaterally from T10 through L2 which is what was visible for the first spin. AP and lateral x-rays confirmed good placement of the screws. we then replaced the spinous processes clamp at S1 and obtained a second 3-D C-arm spent in to visualize the lower portion of the construct. Once this was done and confirmed to be accurate we placed screws bilaterally from L3 through S1 in similar fashion. We then under lateral imaging placed pelvic screws confirming their position on 30 deg by 30 deg illiac oblique views as well as inlet and outlet views. Once all hardware was in place the screws were tested and all tested above 14 mAmp. The wound was irrigated. We then proceeded with decompression and mobilization for deformity correction. Starting at L5-S1 bilateral laminectomy, complete facetectomy and forminotomy were performed using high speed jenna to make inverted L cuts and J cuts to remove IAp and SAP completely from both sides. We then protected neural elements and accessed the disc space at L5-S1. We then performed complete discectomy at this level using osteotome, cindi, curette, claws to obtain bleeding endplates and to size. This was done under lateral imaging. Once the size was selected an Amplify cage was selected. We then placed autograft, allograft and iFactor anterior in the disc space and tamped it down. We then impacted the cage into place while protecting neural elements under lateral imaging. Once in position the cage was explanded and was stable. We then locked the cage with a screw. We then backfilled the cage with DBM. AP and Lateral image confirmed good placement and latter-day of height and lordosis. The wound was irrigated. Meticulous hemostasis achieved. We then moved to L4- 5. At L4-5 bilateral laminectomy, complete facetectomy and foraminotomy performed again as described above. Upon unroofing of the dura, it was noted to have eroded away with the bone and there was a void. We then using 5-0 prolene fixed this and sewed in a fat graft patch. Valsalva to 40 was done and no CSF was leaking. We then protected neural elements and performed osteotomy of L4 for deformtiy correction with osteotome while protecting neural elements. We then performed complete discectomy as described above, grafted and selected a cage to place. The cage was placed, expanded and was stable. This recreated lordosis and height. We then placed a temporary zeyad from L2-4 due to the high degree of instability at these segments still. We then performed revision decompression bilateral laminectomy, complete facetectomy and foraminotomy of L2-3 and L3-4. Upon this we encountered more dural lesions which were fixed along the way with 5-0 Prolene and sewn in fat grafts. Each was tested and was stable w/o leak after valsalva. The wound was irrigated. We then turned our attention to the L1-2 region where the bulk of the deformity was. Bilateral laminectomy, complete facetectomy and foraminotomy was performed here as well for mobilization and decompression. Once this was accomplished, bilateral intradiscal 3 column osteotomies were performed for deformtiy correction using osteotome and lateral imaging. We protected neual elements through process. We then placed [place] foundation stage teacher in the disc space b/l and under lateral imaging carefully opened these sequentially so that we could correct the deformity. Due to the stiffness, anterior column was released using osteotomy as well and osteotome this allowed for deformity correciton. We then with one Osk foundation stage teacher in placed shaved the opposite side and placed bone graft anterior and then selected a cage and placed it expanded it to meet endplates and locked in to position. This was stable. We then did this on the opposite side as well and this allowed for near complete correction of the almost 30 deg kyphotic deformity. Meticulous hemostasis was performed and the wound was irrigated. We then decompressed up to T12 with laminectomy to allow for no cord kinking on further reduction with rods. We then sized and selected rods. These were bent to shape and secured b/l into the pelvis and S1 screws. The rods were then bilaterally sequentially reduced into the screws and set screws placed. this allowed for further correction and lordosis. Once all screws were filled, set screws were final tightened. We then selected Zeyad to zeyad connectors and rods to quad zeyad the vulnerable area at L1-2 for further stability these were final tightened into place. We then selected 3 cross links and placed them and final tightened them. The wound was again irrigated with 3L ancef irrigation, 3L gentamycin irrigation and 3L NSS. We then inspected the dural repairs again and valsalva confirmed good repair w/o CSF leak. Tisseal, surgicel and gel foam were placed over the grafts to allow for further sealant. We then placed bone graft in the posteriolateral gutters b/l and impacted it into place along with MagnatOs. This was covered withsurgicel as well as the dura. A deep drain was placed. Vancomycin powder 2 g placed in the wound along with stimulan beads with tobramycin. We then proceded with layered closure. The deep facia closed with #1PDS, the deep subq closed with 0 Vicryl. A superficial drain was then placed and secured to the skin. We then closed the superficial subq with O and 2--0 vicryl. Once we were about to start with rito we were informed that the patient was not stable and we needed to flip her EULA as she had dropped her CO2 and HR was very low. We crash closed the skin with rito and placed a provisional dressing in 30 seconds. We then flipped the patient over and immediately assessed her. Chest compressions were immediatley started and a code called. She was hooked to AED pads and ACLS protocol was followed. She was given 1 mg epi and 1 round of chest compressions were done. This prompted a pulse check and she had a bounding femoral pulse which was confirmed by 2 parties. We then waited for her to come down from the epi and reassessed. ROSC was achieved and there were no other issues noted at this time. She became stable for immediate transfer to the ICU remaining intubated where she was met by myself, PCC and medicine for team approach. She remained stable during this immediate post operative period. Drains remained stable and in place. Family was updated and we continued with standard post operative protocols and assessments. Stat labs drawn, CXR, CT chest and T/L spine ordered.
[2022-03-01 11:11] LABS: Glucose,Whole Blood 240 mg/dL (70-110)
--- NOTE | 2022-03-01 11:19 | P.PN ---
Subjective Progress Note Date: 03/01/22 Principal diagnosis: status post lumbar decompression/fusion postoperative day #5 Is evaluation of 02/25/2022, the patient is being seen for a follow-up in the intensive care unit. The patient is post laminectomy and fusion/decompression of the spine and this was done on multiple levels. The patient overnight was kept on a mechanical ventilator. This morning, the patient is on propofol which is running at 35 mcg/kg/m. The patient is well sedated and the patient is quite sick sinus with a mechanical ventilator. The patient is requiring no pressors. The patient on normal saline in the at the rate of 50 mL an hour. The patient is on a mechanical ventilator on assist control mode at the rate of 18, tidal volume of 450, FiO2 of 40% with a PEEP of 5. The blood gas from today showed a pH of 7.41 with a pCO2 of 35 and pO2 of 138. Chest x-ray shows smaller lung volumes, some mild elevation of the right hemidiaphragm. ET tube is sitting just at the level of the aortic knob. No evidence of any pneumothorax. No airspace disease or consolidations. The patient also had a CT angiogram that showed no evidence of any pulmonary embolism. That showed atelectatic change in lung bases and various up other lung segments. No effusion. No lung collapse. CAT scan of the lumbosacral spine was also completed. The surgical one-sided dry clean and intact. The Hemovac output is bloody and its minimal at this point in time. The patient is afebrile. The patient is in atrial fibrillation. Rate is controlled. The patient is receiving Dilaudid for pain control.Blood work from today shows a white cell count of 14.7 with a hemoglobin of 10.1 and a platelet count of 232. The patient also has a sodium level of 135, potassium level of 4.4, chloride is 106 with a bicarb of 23 and a BUN of 15 and a creatinine of 0.5. On 02/26/2022, the patient is extubated and the patient is currently on room air oxygen. Pulse ox is around 91%. Chest x-rays showing a small left-sided pleural effusion, atelectatic change in the right lung base. The patient is able to move lower extremities. She has some limited numbness in her fingers the first and second finger and left upper extremity. Otherwise, she is hemodynamically stable. She remained nature fibrillation. She was started on Cardizem drip which is about 5 mg an hour for rate control and this was started yesterday. Her heart rate is under better control. The patient is also on beta blockers and the patient is on atenolol 100 mg by mouth on a daily basis. Pain is under adequate control. She is requiring Dilaudid 1 mg every 3 hours and 0.5 mg every 2 hours on an as-needed basis. She is also receiving Percocet 10/325 mg every 6 hours. She is currently also on IV fluids in the form of normal saline at the rate of 100 mL an hour. She remains on Decadron. Surgical 1 site is clean. The Hemovac has drained approximately 50 mL overnight and the output is minimal as such. No other significant events. No chest pain. No shortness of breath. White second visit 17 with a hemoglobin of 8.7. As such there is a some drop in hemoglobin. BUN is at 20 creatinine of 0.6 and a sodium level is at 135. She is using the incentive spirometer. She is pulling approximately 3000. Reevaluated today on 02/27/22, patient remains in the ICU, patient is doing fairly well. She is on room air, she is in atrial fibrillation, she is relatively asymptomatic. patient has IV fluid at 50 mL per hour, she is off all the different drips otherwise. WBC count is 17.9 hemoglobin is 8.7 and electrolytes are normal BUN is 20 creatinine 0.55. Chest x-ray from 02/26 is basically unremarkable.patient denies any shortness of breath, no cough, no wheezing, no chest pain, no further episodes of nausea or vomiting. Reevaluated today on 02/28/22, patient remains in the ICU as an overflow, she is on room air, not in any distress, but she does have lower extremities weakness and she seems to be generally weak. Continues to have a right triple-lumen catheter in the cervical region, and I'm recommending that we transition to a midline, and discontinue that triple-lumen catheter. Patient denies any shortness of breath, no cough, no wheezing, no major issues overnight. Basic metabolic profile this morning is relatively unremarkable. Reevaluated today on 03/01/22, patient remains as an overflow in the ICU. Doing fairly well, apparently she was up in the chair yesterday at bedside for most of the day. Pain seems to be fairly well controlled. Continues to have weakness, patient is being followed closely by orthopedics. Patient is doing well with incentive spirometry, remains on Xarelto for DVT prophylaxis. She is also on GI prophylaxis. Objective - Vital Signs Vital signs: Vital Signs Temp 98.4 F 03/01/22 08:00 Pulse 93 03/01/22 08:00 Resp 16 03/01/22 08:00 BP 158/98 03/01/22 08:00 Pulse Ox 93 L 03/01/22 08:00 FiO2 40 02/25/22 11:10 Intake & Output 02/28/22 03/01/22 03/01/22 18:59 06:59 18:59 Intake Total 790 650 Output Total 1932019 Balance -1140 -1370 Weight 136.9 kg Intake: IV 400 650 Sodium Chloride 0.9% 1, 300 550 000 ml @ 50 mls/hr IV . Q20H MEHUL Rx#:[id number] ceFAZolin 2 gm In Sodium 100 100 Chloride 0.9% 50 ml @ 100 mls/hr IVPB Q8H MEHUL Rx#: [id number] Oral 390 Output: Drainage 90 20 Left Hemovac 30 20 Right hemovac 60 Urine 1840 1999 Uretheral (Warren) 400 Other: Voiding Method Indwelling Catheter Indwelling Catheter External Catheter # Voids 1 2 ABP, PAP, CO, CI - Last Documented Arterial Blood Pressure 97/74 - Exam Physical Exam: Revealed a 71-year-old female in no distress. On room air. Head: Atraumatic, normocephalic. HEENT:[Neck is supple.] [No neck masses.] [No thyromegaly.] [No JVD.] Triple- lumen catheter noted in the right IJ. Chest: [Clear throughout, no crackles, no rhonchi, no wheezes.] Cardiac Exam: Regular rhythm, normal S1 and S2, no S3 gallop, no murmur.] Abdomen: [Soft, nontender, no megaly, no rebound, no guarding, normal bowel sounds.] Extremities: [No clubbing, no edema, no cyanosis.] Neurological Exam: [No focal neurologic deficit.]alert oriented 3, no gross focal deficits. Psychiatric: Normal mood affect and normal mental status examination. Skin: No rashes. - Labs CBC & Chem 7: 03/01/22 05:51 03/01/22 07:15 Labs: Abnormal Lab Results - Last 24 Hours (Table) 02/28/22 02/28/22 02/28/22 Range/Units 10:56 11:34 11:57 WBC 20.0 H (3.8-10.6) k/uL RBC 3.04 L (3.80-5.40) m/uL Hgb 9.4 L (11.4-16.0) gm/dL Hct 26.3 L (34.0-46.0) % Sodium (137-145) mmol/L BUN (7-17) mg/dL Glucose (74-99) mg/dL POC Glucose (mg/dL) 183 H 206 H (70-110) mg/dL 02/28/22 02/28/22 03/01/22 Range/Units 16:18 20:12 05:51 WBC 19.5 H (3.8-10.6) k/uL RBC 3.20 L (3.80-5.40) m/uL Hgb 9.9 L (11.4-16.0) gm/dL Hct 27.6 L (34.0-46.0) % Sodium (137-145) mmol/L BUN (7-17) mg/dL Glucose (74-99) mg/dL POC Glucose (mg/dL) 183 H 255 H (70-110) mg/dL 03/01/22 03/01/22 03/01/22 Range/Units 06:03 07:15 11:10 WBC (3.8-10.6) k/uL RBC (3.80-5.40) m/uL Hgb (11.4-16.0) gm/dL Hct (34.0-46.0) % Sodium 133 L (137-145) mmol/L BUN 19 H (7-17) mg/dL Glucose 178 H (74-99) mg/dL POC Glucose (mg/dL) 181 H 240 H (70-110) mg/dL Assessment and Plan Assessment: impression: Lumbar decompression/fusion postoperative day #5 Cardiac arrest, brief pulseless electrical activity encountered in the operating room exact etiology is not clear. Non-anion gap metabolic acidosis, resolved Acute hypoxic/hypercapnic respiratory failure secondary to cardiac arrest/pulseless electrical activity, patient was extubated yesterday by Dr. Pulliam. Morbid obesity. BMI of 41.1 History of right hemidiaphragm paralysis History of right-sided breast cancer Chronic atrial fibrillation Dyslipidemia Benign essential hypertension recommendation: Transfer patient to 3 S./cardiology floor with monitor bed. Continue present supportive care measures Continue beta blockers and oral Cardizem. Continue incentive spirometry Continue pain control Will clear for discharge planning once cleared by all consultants on the case and the primary service. Time with Patient: Less than 30
--- NOTE | 2022-03-01 14:15 | P.PN ---
Subjective Progress Note Date: 03/01/22 Patient is a 71 yo CF with a hx of A fib s/p ablation, GERD, hypertension, dyslipidemia, and right diaphragmatic paralysis who presented for T10 to Pelvis decompression and fusion with revision. Blood loss and the case was approximately 1900 mL. During her operative course she required phenylephrine IV infusion, Vasopressin IVP. She also received TXA gtt. She received 7 L of lactated Ringer's. She received 1 amp of sodium bicarb intaop. She also received albumin. Her operative course was complicated with a cardiac arrest. During the case she developed A. fib with RVR and then quickly transitioned into bradycardia with a low end-tidal CO2. She received 0.4 of atropine and CPR was started. She received epinephrine 0.5. She achieved ROSC. Total down time was less than 5 minutes. Her levo was weaned overnight. During her sedation holiday she was responding appropriately. She was extubated on 02/25. She continued to do well with struggled with pain. Patient seen and examined at bedside. She reports 9/10 pain in her lower back this morning prior to getting any pain medications. She complains of some right leg weakness. She denies any chest pain or shortness of breath. Adamant about n ot wanting SNF but willing to consider inpatient rehab. General: ill appearing, mild distress due to pain, appears at stated age Derm: warm, dry Head: atraumatic, normocephalic, symmetric Eyes: EOMI, no lid lag, anicteric sclera Mouth: no lip lesion, mucus membranes moist Cardiovascular: S1S2 irregular, no murmur Lungs: CTA bilateral, no rhonchi, no rales , no accessory muscle use Ext: no gross muscle atrophy, no edema, no contractures Neuro: Moving all 4 extremities independently, light touch intact Psych: Alert, oriented, appropriate affect #T10 to pelvis decompression with fusion. - Management per ortho. #Post-op pain - Continue with gabapentin, Valium, and Percocet - Continue with Dilaudid and Percocet - Patient has no stairs and planning on going home, she has nearby help from [facility] but lives alone - PT and OT consulted - PMR consulted #Aborted sudden cardiac - Cardiology on board - Echocardiogram shows EF 35-40% with moderate MR - Telemetry monitoring #Systolic CHF - Euvolemic - Echo from 2019 shows EF 50-55% - Patient will need ischemic workup - Patient would benefit from ACEi and Aldactone prior to discharge - Cardiology on board #Leukocytosis - Suspect secondary to steroids - Follow CBC and fever profile #Right diaphragmatic paralysis - Aggressive pulmonary hygiene - Pulm recs #Acute blood loss anemia, anticipated outcome of surgery - No indication for transfusion at this time - Follow CBC - Coags normal #A flutter with RVR - Xarelto resumed on 02/26 - Cardizem - Suspect that suboptimal rate control is related to pain. - Tele #HLD - Statin #HTN - Atenolol, cardizem - Follow blood pressures Resolved: Non-anion gap metbolic acidosis, resolved Hypomagnesemia, resolved Postoperative respiratory failure, anticipated outcome of surgery, resolved Objective - Vital Signs Vital signs: Vital Signs Temp 98.7 F 03/01/22 12:00 Pulse 118 H 03/01/22 12:00 Resp 16 03/01/22 12:00 BP 155/96 03/01/22 12:00 Pulse Ox 94 L 03/01/22 12:00 FiO2 40 02/25/22 11:10 Intake & Output 02/28/22 03/01/22 03/01/22 18:59 06:59 18:59 Intake Total 790 650 Output Total 1932019 Balance -1140 -1370 Weight 136.9 kg Intake: IV 400 650 Sodium Chloride 0.9% 1, 300 550 000 ml @ 50 mls/hr IV . Q20H MEHUL Rx#:[id number] ceFAZolin 2 gm In Sodium 100 100 Chloride 0.9% 50 ml @ 100 mls/hr IVPB Q8H MEHUL Rx#: [id number] Oral 390 Output: Drainage 90 20 Left Hemovac 30 20 Right hemovac 60 Urine 1840 2000 Uretheral (Warren) 400 Other: Voiding Method Indwelling Catheter Indwelling Catheter External Catheter # Voids 1 2 ABP, PAP, CO, CI - Last Documented Arterial Blood Pressure 97/74 - Labs CBC & Chem 7: 03/01/22 05:51 03/01/22 07:15 Labs: Abnormal Lab Results - Last 24 Hours (Table) 02/28/22 02/28/22 03/01/22 Range/Units 16:18 20:12 05:51 WBC 19.5 H (3.8-10.6) k/uL RBC 3.20 L (3.80-5.40) m/uL Hgb 9.9 L (11.4-16.0) gm/dL Hct 27.6 L (34.0-46.0) % Sodium (137-145) mmol/L BUN (7-17) mg/dL Glucose (74-99) mg/dL POC Glucose (mg/dL) 183 H 255 H (70-110) mg/dL 03/01/22 03/01/22 03/01/22 Range/Units 06:03 07:15 11:10 WBC (3.8-10.6) k/uL RBC (3.80-5.40) m/uL Hgb (11.4-16.0) gm/dL Hct (34.0-46.0) % Sodium 133 L (137-145) mmol/L BUN 19 H (7-17) mg/dL Glucose 178 H (74-99) mg/dL POC Glucose (mg/dL) 181 H 240 H (70-110) mg/dL
[2022-03-01] MEDS: DILTIAZEM 5 MG/ML 5 ML VIAL IVP STA ×2 (16:01→16:35)
[2022-03-01 16:10] LABS: Glucose,Whole Blood 276 mg/dL (70-110)
[2022-03-01] MEDS ORDERED: METOPROLOL TARTRATE 5 MG/5 ML VIAL IVP ONE (18:15)
[2022-03-01] MEDS: RIVAROXABAN 20 MG TAB PO SCH (18:26)
--- NOTE | 2022-03-01 19:45 | PN ---
PROGRESS NOTE HISTORY OF PRESENT ILLNESS: Gabrielle is a 71-year-old lady who underwent back surgery by Dr. Alexander and is in the ICU after having had an episode of bradycardia in the perioperative setting. Subsequently has been in atrial fibrillation with poorly controlled ventricular rate. She is doing well from cardiac standpoint, but continues to have issues with pain control. She is currently on Cardizem CD 240 mg daily, Tenormin 100 mg daily, and Xarelto. PHYSICAL EXAMINATION: GENERAL: Comfortable at rest. VITAL SIGNS: Heart rate is 93 beats per minute, blood pressure is 158/98, respiratory rate is 16. NECK: There is no jugular venous distention. CHEST: Reveals good air entry bilaterally. HEART: Reveals first and second heart sounds, irregular rhythm. EXTREMITIES: Did not reveal any edema. Peripheral pulses are felt. LABORATORY DATA: Labs show a creatinine of 0.5, potassium is 4.4. Hemoglobin is 9.1, platelet count is normal. ASSESSMENT: 1. Atrial fibrillation with poorly controlled ventricular rate. 2. Status post back surgery. PLAN: I believe the poorly controlled ventricular rates are mostly related to the poor pain control. Nurse is working on it. I am not going to add any more medications. Continue the Tenormin and the Cardizem along with Xarelto and we will continue to follow her closely. MMODL / IJN: [id number] /
[2022-03-01 20:44] LABS: Glucose,Whole Blood 263 mg/dL (70-110)
[2022-03-02] MEDS: ACETAMINOPHEN TAB 325 MG TAB PO SCH ×4 (00:12→17:30)
[2022-03-02] MEDS: HYDROmorphone 1 MG/ML 1 ML SYRINGE IVP PRN ×8 (04:03→22:01)
--- NOTE | 2022-03-02 05:38 | P.CONS ---
History of Present Illness - Chief Complaint Gait disturbance - History of Present Illness I had the opportunity to see patient for inpatient rehab consultation today. Patient admitted to Dr. Patricia's in February 24 with lumbar spondylosis for reevaluation lumbar fusion T10 to pelvis. Had a lengthy operation. Complication CODE BLUE. Seen medically by Dr. Tariq. Seen by Dr. Pulliam for ICU care. Seen by cardiology for atrophic flutter. Chest x-rays followed for mild bibasilar infiltrate. PT reports maximal assistance for transfer. OT reports independent with feeding, minimal assistance for grooming, moderate assistance for upper dressing, maximal assistance for bathing and two-person to nadeen assistance for toileting and toileting transfer. Patient reports difficulty standing in all. Previous functional history as elicited from patient: 71-year-old right-handed white female who is lives in one floor handicap accessible home alone. Retired. Describes independent with own cooking, laundry, driving, sitdown shower and gait with [address] Amna Angel. Denies tobacco or alcohol. Review of Systems Review of systems: ENT: Denies sneezes or discharge. Eyes: Denies discharge or photophobia. Cardiac: Denies chest pain or palpitation. Pulmonary: Denies cough or shortness of breath. Breast: Denies discharge or lumps. Gastrointestinal: Denies nausea, emesis, constipation, diarrhea. Genitourinary: Denies discharge or frequency. Musculoskeletal: Back discomfort. Neurologic: Weak legs, requires leg psychologist chief to move them in bed and has difficulty standing up. Endocrine: Denies shakes or sweats. Oncology: Denies cancers. Dermatologic: Denies rash, itching, pruritus. ALLERGY/immunology: Denies sneezes, rashes. Past Medical History Past Medical History: Atrial Fibrillation, Atrial Flutter, Cancer, Chest Pain / Angina, GERD/Reflux, Hyperlipidemia, Hypertension, Osteoarthritis (OA), Thyroid Disorder Additional Past Medical History / Comment(s): Rr breast cancer, hiatal hernia, chronic low back pain. partially paralyzed rt diaphragm, infection rt breast after surgery History of Any Multi-Drug Resistant Organisms: None Reported Past Surgical History: Back Surgery, Bladder Surgery, Breast Surgery, Cardiac Ablation, Cholecystectomy, EPS, Heart Catheterization, Hernia Repair, Hysterectomy, Joint Replacement, Orthopedic Surgery Additional Past Surgical History / Comment(s): R breast core bx/needle loc, R breast lumpectomy/axillary node dissection, CHATO, cardioversion, low back surgeries x3 with plate/screws, total R knee x3, R foot multiple surgeries for spur/neuromas, L foot cystectomy, R elbow injury w/ surgery, R wrist ganglion cystectomy, partial thyroidectomy, 4 abdominal hernia repairs, bladder suspension, colonoscopy, loki cataract, laser loki eye surgery 01/31/22 Past Anesthesia/Blood Transfusion Reactions: Previous Problems w/ Anesthesia, Postoperative Nausea & Vomiting (PONV) Additional Past Anesthesia/Blood Transfusion Reaction / Comm: On ventilator for 2 days after cardiac ablation d/t diaphragm paralysis-rt side Past Psychological History: Depression Additional Psychological History / Comment(s): . Smoking Status: Never smoker Past Alcohol Use History: Rare Past Drug Use History: None Reported - Past Family History Father Family Medical History: Cancer Additional Family Medical History / Comment(s): . Mother Family Medical History: Cancer, Deep Vein Thrombosis (DVT) Additional Family Medical History / Comment(s): Skin and breast cancer. Medications and Allergies Home Medications Medication Instructions Recorded Confirmed Type Levothyroxine Sodium [Synthroid] 88 mcg PO QAM 02/19/14 02/20/22 History HYDROcodone/APAP 10-325MG [Bison 1 tab PO Q4H PRN 12/23/18 02/20/22 History 10-325] Atorvastatin [Lipitor] 10 mg PO DAILY #30 tab 04/10/19 02/20/22 Rx atenoloL [Tenormin] 100 mg PO QAM 05/10/20 02/20/22 History Amlodipine Besylate/Valsartan 1 each PO QAM 02/02/22 02/20/22 History [Exforge 5-320 mg Tablet] DULoxetine HCL [Cymbalta] 60 mg PO DAILY 02/02/22 02/20/22 History Rivaroxaban [Xarelto] 20 mg PO HS 02/02/22 02/20/22 History Rosuvastatin Calcium 10 mg PO QAM 02/02/22 02/20/22 History Allergies Allergy/AdvReac Type Severity Reaction Status Date / Time cephalexin monohydrate Allergy Mild Rash/Hives Verified 02/24/22 05:56 [From Keflex] Iodinated Contrast Media Allergy Mild Rash/Hives Verified 02/24/22 05:56 [Iodinated Contrast Media - IV Dye] Sulfa (Sulfonamide Allergy Mild Rash/Hives Verified 02/24/22 05:56 Antibiotics) adhesive tape AdvReac Severe Rash/Hives Uncoded 02/24/22 05:56 Physical Exam Vitals: Vital Signs Temp Pulse Resp BP Pulse Ox 03/02/22 04:00 98.1 F 125 H 14 168/101 98 03/02/22 00:00 98.0 F 116 H 16 162/101 97 03/01/22 20:00 97.9 F 131 H 16 153/89 94 L 03/01/22 16:00 98.4 F 111 H 14 134/102 94 L 03/01/22 12:00 98.7 F 118 H 16 155/96 94 L 03/01/22 08:00 98.4 F 93 16 158/98 93 L Intake and Output 03/01/22 03/01/22 03/02/22 14:59 22:59 06:59 Intake Total 1100 Output Total 40 1640 300 Balance -40 -1640 800 Intake: IV 1100 Sodium Chloride 0.9% 1, 1000 000 ml @ 50 mls/hr IV . Q20H MEHUL Rx#:[id number] ceFAZolin 2 gm In Sodium 100 Chloride 0.9% 50 ml @ 100 mls/hr IVPB Q8H MEHUL Rx#: [id number] Output: Drainage 40 40 Left Hemovac 40 40 Urine 1600 300 Other: Voiding Method External Catheter External Catheter External Catheter # Bowel Movements 1 Skin: Atrophic, intact. General: Overweight build and comfortable appearance. Head: Normocephalic, atraumatic. Eyes: Symmetric. Pupils equal round. Ears: Symmetric. Hearing within normal limits. Mouth: Clear. Neck: Supple. Carotid without bruit. Cardiac: Regular rate and rhythm. Lungs: Clear anteriorly and posteriorly. Abdomen: Soft active nontender, overweight. Extremities: Normal tone. Neurological: Mental status: Alert, cooperative, pleasant. Cranial nerves: Symmetric facial tone and trapezius. Motor: Normal strength and isolation arms. Legs poor but with active movement at ankles and toes. Sensation: Intact throughout. DTRs: Symmetric and equal throughout. Mobility: Requires physical assist for bed mobility. Results CBC & Chem 7: 03/01/22 05:51 03/01/22 07:15 Labs: Abnormal Lab Results - Last 24 Hours (Table) 03/01/22 03/01/22 03/01/22 Range/Units 05:51 06:03 07:15 WBC 19.5 H (3.8-10.6) k/uL RBC 3.20 L (3.80-5.40) m/uL Hgb 9.9 L (11.4-16.0) gm/dL Hct 27.6 L (34.0-46.0) % Sodium 133 L (137-145) mmol/L BUN 19 H (7-17) mg/dL Glucose 178 H (74-99) mg/dL POC Glucose (mg/dL) 181 H (70-110) mg/dL 03/01/22 03/01/22 03/01/22 Range/Units 11:10 16:08 20:42 WBC (3.8-10.6) k/uL RBC (3.80-5.40) m/uL Hgb (11.4-16.0) gm/dL Hct (34.0-46.0) % Sodium (137-145) mmol/L BUN (7-17) mg/dL Glucose (74-99) mg/dL POC Glucose (mg/dL) 240 H 276 H 263 H (70-110) mg/dL Assessment and Plan Plan: Impression: Lumbar spondylosis with myelopathy status post revision decompression and fusion T10 to pelvis with complication CODE BLUE. Patient currently with functional paraplegia. Comments: At this time I discussed with patient possible inpatient rehab. Have encouraged her to participate with therapy out of bed. I do note that this is difficult due to patient's weak legs and inability to stand upright currently. In fact, that's the reason for the rehab consultation.
[2022-03-02] MEDS: SODIUM CHLORIDE 0.9% 1,000 ML IV SCH (05:52)
[2022-03-02] MEDS: DEXAMETHASONE SOD PHOSPHATE 4 MG/ML 1 ML VIAL IVP SCH ×3 (05:52→17:30)
[2022-03-02] MEDS: LEVOTHYROXINE 88 MCG TAB PO SCH (05:52)
[2022-03-02 06:22] LABS: MCH 30.7 pg (25.0-35.0); MCHC 34.6 g/dL (31.0-37.0); MCV 88.5 fL (80.0-100.0); Mean Platelet Volume 10.1; Platelet Count 271 k/uL (150-450); Poikilocytosis Slight; RBC 3.28 m/uL (3.80-5.40); WBC 24.6 k/uL (3.8-10.6)
[2022-03-02 06:32] LABS: Glucose,Whole Blood 245 mg/dL (70-110)
[2022-03-02] MEDS: INSULIN ASPART (NovoLOG) 100 UNIT/ML VIAL SQ SCH ×4 (06:39→20:47)
[2022-03-02 07:02] LABS: African American GFR (CKD) >90 (>60 ml/min/1.73 sqM); Anion Gap 9 mmol/L; Blood Urea Nitrogen 18 mg/dL (7-17); Calcium 8.5 mg/dL (8.4-10.2); Carbon Dioxide 26 mmol/L (22-30); Chloride 100 mmol/L (98-107); Glucose 190 mg/dL (74-99); Non-African American GFR(CKD) >90 (>60 ml/min/1.73 sqM); Potassium 4.2 mmol/L (3.5-5.1); Sodium 135 mmol/L (137-145)
--- NOTE | 2022-03-02 09:07 | P.PN ---
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 Patient is currently resting in bed. She states she was unable to get up in chair yesterday. Patient reports continuing with bed exercises of bilateral lower extremities. She is moving her BUE with good strength, she is utilizing an assisted device for moving her left lower extremity due to weakness. Patient was incontinent of urine which saturated her dressing. Order placed for insertion of indwelling wiley catheter until patient is more mobile and to maintain surgical incision clean and dry. Surgical incision is well approximated and intact. Left hemovac was pulled out during PT yesterday, which it was going to be discontinued today. She denies any fever/chills, nausea/vomiting, or chest pain. Objective - Vital Signs Vital signs: Vital Signs Temp 98.1 F 03/02/22 04:00 Pulse 125 H 03/02/22 04:00 Resp 14 03/02/22 04:00 BP 168/101 03/02/22 04:00 Pulse Ox 98 03/02/22 04:00 FiO2 40 02/25/22 11:10 Intake & Output 03/01/22 03/02/22 03/02/22 18:59 06:59 18:59 Intake Total 1100 Output Total 1680 300 Balance -1680 800 Weight 139.5 kg Intake: IV 1100 Sodium Chloride 0.9% 1, 1000 000 ml @ 50 mls/hr IV . Q20H [facility] Rx#:[id number] ceFAZolin 2 gm In Sodium 100 Chloride 0.9% 50 ml @ 100 mls/hr IVPB Q8H [facility] Rx#: [id number] Output: Drainage 80 Left Hemovac 80 Urine 1600 300 Other: Voiding Method External Catheter External Catheter # Bowel Movements 1 ABP, PAP, CO, CI - Last Documented Arterial Blood Pressure 97/74 - Exam Physical Examination General: The patient is awake and alert, in no acute distress Skin: Skin is warm and dry with no obvious rashes or lesions. Hairy patches absent, no dorsal skin dimples, no cafe au lait spots, Surgical incision to thoracic and lumbar region. Eye: Pupils are equal, round and reactive to light, extra-ocular movements are intact; there is normal conjunctiva bilaterally. Neck: The neck is supple, there is no tenderness and ROM intact. Cardiovascular: There is a irregular rate and rhythm. No murmur, rub or gallop is appreciated. Respiratory: Lungs are clear to auscultation, respirations are non-labored, breath sounds are equal. Gastrointestinal: Soft, non-distended, non-tender abdomen. Back: There is slight tenderness to palpation in the para-lumbar region. There is no obvious deformity . Musculoskeletal: ROM limited secondary to pain and stiffness from surgical procedure. Muscle strength in all major muscle groups of bilateral upper extremities 5/5, right lower extremities 4-/5, left lower extremity 3+/5. Neurological: CN 2-12 intact. There are no obvious motor or sensory deficits. Movement and coordination equal and intact. Sensory exam to light touch intact C5-T1 and intact from L2-S1. Reflexes 2/4 in bilateral upper and lower extremities. Negative Hoffmans, babinski, and clonus signs. Psychiatric: Cooperative, appropriate mood & affect, normal judgment. - Labs CBC & Chem 7: 03/02/22 05:37 03/02/22 05:37 Labs: Abnormal Lab Results - Last 24 Hours (Table) 03/01/22 03/01/22 03/01/22 Range/Units 11:10 16:08 20:42 WBC (3.8-10.6) k/uL RBC (3.80-5.40) m/uL Hgb (11.4-16.0) gm/dL Hct (34.0-46.0) % Sodium (137-145) mmol/L BUN (7-17) mg/dL Glucose (74-99) mg/dL POC Glucose (mg/dL) 240 H 276 H 263 H (70-110) mg/dL 03/02/22 03/02/22 03/02/22 Range/Units 05:37 05:37 06:31 WBC 24.6 H (3.8-10.6) k/uL RBC 3.28 L (3.80-5.40) m/uL Hgb 10.0 L (11.4-16.0) gm/dL Hct 29.0 L (34.0-46.0) % Sodium 135 L (137-145) mmol/L BUN 18 H (7-17) mg/dL Glucose 190 H (74-99) mg/dL POC Glucose (mg/dL) 245 H (70-110) mg/dL Assessment and Plan Assessment: 1. 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 -Activity: Ambulate QID, OOB all meals, up and about, limit lifting bending twisting to less than 5 lbs. Use walker or cane if needed for stability. -Daily PT/OT, increase ambulation strength and balance. -Pain control: Adequate at this time -Meds: reviewed -GI ppx: senna, Miralax -Insert wiley catheter and maintain for now. -DVT PPX: Heparin -Hygiene: Shower today. Maintain dressing clean and dry. Meticulous cleaning after BMs away from the incision site -Encourage IS 10x/hr -Dispo: Anticipate discharge to [facility] when medically stable. *I reviewed and discussed this case with my attending Dr. Alexander, whom has reviewed this chart and films and is in agreement with assessment and plan of care as outlined above. I have personally seen and examined the patient, performed the documentation and the assessment and plan as written. Number of minutes spent on the visit: 20m
[2022-03-02] MEDS: DULoxetine HCL 60 MG CAPSULE.DR PO SCH (10:07)
[2022-03-02] MEDS: GABAPENTIN 300 MG CAP PO SCH ×3 (10:07→22:02)
[2022-03-02] MEDS: ATORVASTATIN 10 MG TAB PO SCH (10:07)
[2022-03-02] MEDS: atenoloL 50 MG TAB PO SCH (10:08)
[2022-03-02] MEDS: DILTIAZEM CD 240 MG CAP.ER.24H PO SCH (10:08)
--- NOTE | 2022-03-02 11:32 | P.PN ---
Subjective Progress Note Date: 03/02/22 Patient is a 71 yo CF with a hx of A fib s/p ablation, GERD, hypertension, dyslipidemia, and right diaphragmatic paralysis who presented for T10 to Pelvis decompression and fusion with revision. Blood loss and the case was approximately 1900 mL. During her operative course she required phenylephrine IV infusion, Vasopressin IVP. She also received TXA gtt. She received 7 L of lactated Ringer's. She received 1 amp of sodium bicarb intaop. She also received albumin. Her operative course was complicated with a cardiac arrest. During the case she developed A. fib with RVR and then quickly transitioned into bradycardia with a low end-tidal CO2. She received 0.4 of atropine and CPR was started. She received epinephrine 0.5. She achieved ROSC. Total down time was less than 5 minutes. Her levo was weaned overnight. During her sedation holiday she was responding appropriately. She was extubated on 02/25. She continued to do well with struggled with pain. Patient seen and examined at bedside. She reports 9/10 pain in her lower back this morning prior to getting any pain medications. She complains of some right leg weakness. She denies any chest pain or shortness of breath. Adamant about n ot wanting SNF but willing to consider inpatient rehab. General: ill appearing, mild distress due to pain, appears at stated age Derm: warm, dry Head: atraumatic, normocephalic, symmetric Eyes: EOMI, no lid lag, anicteric sclera Mouth: no lip lesion, mucus membranes moist Cardiovascular: S1S2 irregular, no murmur Lungs: CTA bilateral, no rhonchi, no rales , no accessory muscle use Ext: no gross muscle atrophy, no edema, no contractures Neuro: Moving all 4 extremities independently, light touch intact Psych: Alert, oriented, appropriate affect #T10 to pelvis decompression with fusion - Management per ortho. #Post-op pain - Continue with gabapentin, Valium, and Percocet - Continue with Dilaudid and Percocet - Patient has no stairs and planning on going home, she has nearby help from family but lives alone - PT and OT consulted - PMR consulted #Aborted sudden cardiac - Cardiology on board - Echocardiogram shows EF 35-40% with moderate MR - Telemetry monitoring #Systolic CHF - Euvolemic - Echo from 2019 shows EF 50-55% - Patient will need ischemic workup - Patient would benefit from ACEi and Aldactone prior to discharge - Cardiology on board #Leukocytosis - Suspect secondary to steroids - Follow CBC and fever profile #Right diaphragmatic paralysis - Aggressive pulmonary hygiene - Pulm recs #Acute blood loss anemia, anticipated outcome of surgery - No indication for transfusion at this time - Follow CBC - Coags normal #A flutter with RVR - Xarelto resumed on 02/26 - Cardizem - Suspect that suboptimal rate control is related to pain. - Tele #HLD - Statin #HTN - Atenolol, cardizem - Follow blood pressures Resolved: Non-anion gap metbolic acidosis Hypomagnesemia Postoperative respiratory failure, anticipated outcome of surgery She is medically stable. Anticipate discharge to inpatient rehab. Case management on board. Objective - Vital Signs Vital signs: Vital Signs Temp 98.1 F 03/02/22 04:00 Pulse 125 H 03/02/22 04:00 Resp 14 03/02/22 04:00 BP 168/101 03/02/22 04:00 Pulse Ox 98 03/02/22 04:00 FiO2 40 02/25/22 11:10 Intake & Output 03/01/22 03/02/22 03/02/22 18:59 06:59 18:59 Intake Total 1100 Output Total 1680 300 Balance -1680 800 Weight 139.5 kg 139.5 kg Intake: IV 1100 Sodium Chloride 0.9% 1, 1000 000 ml @ 50 mls/hr IV . Q20H [facility] Rx#:[id number] ceFAZolin 2 gm In Sodium 100 Chloride 0.9% 50 ml @ 100 mls/hr IVPB Q8H [facility] Rx#: [id number] Output: Drainage 80 Left Hemovac 80 Urine 1600 300 Other: Voiding Method External Catheter External Catheter # Bowel Movements 1 ABP, PAP, CO, CI - Last Documented Arterial Blood Pressure 97/74 - Labs CBC & Chem 7: 03/02/22 05:37 03/02/22 05:37 Labs: Abnormal Lab Results - Last 24 Hours (Table) 03/01/22 03/01/22 03/02/22 Range/Units 16:08 20:42 05:37 WBC 24.6 H (3.8-10.6) k/uL RBC 3.28 L (3.80-5.40) m/uL Hgb 10.0 L (11.4-16.0) gm/dL Hct 29.0 L (34.0-46.0) % Sodium (137-145) mmol/L BUN (7-17) mg/dL Glucose (74-99) mg/dL POC Glucose (mg/dL) 276 H 263 H (70-110) mg/dL 03/02/22 03/02/22 Range/Units 05:37 06:31 WBC (3.8-10.6) k/uL RBC (3.80-5.40) m/uL Hgb (11.4-16.0) gm/dL Hct (34.0-46.0) % Sodium 135 L (137-145) mmol/L BUN 18 H (7-17) mg/dL Glucose 190 H (74-99) mg/dL POC Glucose (mg/dL) 245 H (70-110) mg/dL
[2022-03-02 11:59] LABS: Glucose,Whole Blood 198 mg/dL (70-110)
[2022-03-02] MEDS: DIGOXIN 250 MCG TAB PO SCH (13:57)
[2022-03-02 17:04] LABS: Glucose,Whole Blood 230 mg/dL (70-110)
[2022-03-02] MEDS: RIVAROXABAN 20 MG TAB PO SCH (17:32)
[2022-03-02 20:23] LABS: Glucose,Whole Blood 229 mg/dL (70-110)
--- NOTE | 2022-03-02 22:53 | PN ---
PROGRESS NOTE HISTORY OF PRESENT ILLNESS: A 71-year-old lady who is admitted to the hospital following back surgery with atrial fibrillation with rapid ventricular rate. She had a slow heart rate for which she underwent CPR and has developed rib injury as a result. She complains of pain there. This morning, she still remains in atrial fibrillation with somewhat of a poorly controlled ventricular rate. MEDICATIONS: She is currently on, 1. Tenormin 100 mg daily. 2. Cardizem CD 240 mg daily. 3. Xarelto. 4. I am going to add digoxin for better heart rate control. PHYSICAL EXAMINATION: VITAL SIGNS: Heart rate is 110 beats per minute. Blood pressure is 168/101, respiratory rate is 18. NECK: There is no jugular venous distention. Carotid upstroke is normal. There is no bruit. CHEST: Reveals good air entry bilaterally. HEART: Reveals first and second heart sounds, irregular rhythm. EXTREMITIES: Did not reveal any edema. ASSESSMENT: 1. Atrial fibrillation with poorly controlled ventricular rate. 2. Uncontrolled hypertension. 3. Rib injury following CPR. PLAN: I will continue Cardizem, atenolol, add digoxin for rate control, and add losartan for blood pressure control. MMODL / IJN: [id number] /
[2022-03-03] MEDS: DEXAMETHASONE SOD PHOSPHATE 4 MG/ML 1 ML VIAL IVP SCH ×5 (00:02→23:45)
[2022-03-03] MEDS: HYDROmorphone 1 MG/ML 1 ML SYRINGE IVP PRN ×4 (00:02→23:46)
[2022-03-03] MEDS: ACETAMINOPHEN TAB 325 MG TAB PO SCH ×5 (02:06→19:08)
[2022-03-03 06:31] LABS: Glucose,Whole Blood 195 mg/dL (70-110)
[2022-03-03] MEDS: INSULIN ASPART (NovoLOG) 100 UNIT/ML VIAL SQ SCH ×4 (06:33→20:38)
[2022-03-03] MEDS: LEVOTHYROXINE 88 MCG TAB PO SCH (06:33)
[2022-03-03] MEDS: DIGOXIN 250 MCG TAB PO SCH (08:47)
[2022-03-03] MEDS: atenoloL 50 MG TAB PO SCH (08:47)
[2022-03-03] MEDS: DILTIAZEM CD 240 MG CAP.ER.24H PO SCH (08:47)
[2022-03-03] MEDS: oxyCODONE-APAP 10-325MG 1 EACH TAB PO PRN ×2 (08:47→15:02)
[2022-03-03] MEDS: ATORVASTATIN 10 MG TAB PO SCH (08:48)
[2022-03-03] MEDS: DULoxetine HCL 60 MG CAPSULE.DR PO SCH (08:48)
[2022-03-03] MEDS: GABAPENTIN 300 MG CAP PO SCH ×3 (08:48→21:22)
[2022-03-03] MEDS: SODIUM CHLORIDE 0.9% 1,000 ML IV SCH (09:34)
[2022-03-03] MEDS: HYDROmorphone 0.5 MG/0.5 ML SYRINGE IVP PRN ×2 (09:41→21:26)
--- NOTE | 2022-03-03 10:14 | P.PN ---
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 Patient is currently resting in bed. Patient states she did work with physical therapy yesterday was able to stand at the bedside and sit back on bed multiple times, tolerating well. Patient is looking forward to going to rehab to progress with her recovery, possibly on 03/06/2022. Surgical dressing is clean dry and intact. Warren catheter is present and patent. She denies any fever/chills, nausea/vomiting, or chest pain. Objective - Vital Signs Vital signs: Vital Signs Temp 97.6 F 03/03/22 00:00 Pulse 129 H 03/03/22 04:00 Resp 14 03/03/22 04:00 BP 112/80 03/03/22 04:00 Pulse Ox 96 03/03/22 04:00 FiO2 40 02/25/22 11:10 Intake & Output 03/02/22 03/03/22 03/03/22 18:59 06:59 18:59 Intake Total 1800 400 Output Total 1100 550 Balance 700 -150 Weight 139.5 kg 138.5 kg Intake: IV 800 400 Sodium Chloride 0.9% 1, 800 400 000 ml @ 50 mls/hr IV . Q20H [facility] Rx#:[id number] Oral 1000 Output: Urine 1100 550 Other: Voiding Method External Catheter External Catheter ABP, PAP, CO, CI - Last Documented Arterial Blood Pressure 97/74 - Exam Physical Examination General: The patient is awake and alert, in no acute distress Skin: Skin is warm and dry with no obvious rashes or lesions. Hairy patches absent, no dorsal skin dimples, no cafe au lait spots, Surgical incision to thoracic and lumbar region. Eye: Pupils are equal, round and reactive to light, extra-ocular movements are intact; there is normal conjunctiva bilaterally. Neck: The neck is supple, there is no tenderness and ROM intact. Cardiovascular: There is a irregular rate and rhythm. No murmur, rub or gallop is appreciated. Respiratory: Lungs are clear to auscultation, respirations are non-labored, breath sounds are equal. Gastrointestinal: Soft, non-distended, non-tender abdomen. Back: There is slight tenderness to palpation in the para-lumbar region. There is no obvious deformity . Musculoskeletal: ROM limited secondary to pain and stiffness from surgical procedure. Muscle strength in all major muscle groups of bilateral upper extremities 5/5, right lower extremities 4-/5, left lower extremity 3+/5. Neurological: CN 2-12 intact. There are no obvious motor or sensory deficits. Movement and coordination equal and intact. Sensory exam to light touch intact C5-T1 and intact from L2-S1. Reflexes 2/4 in bilateral upper and lower extremities. Negative Hoffmans, babinski, and clonus signs. Psychiatric: Cooperative, appropriate mood & affect, normal judgment. - Labs CBC & Chem 7: 03/02/22 05:37 03/02/22 05:37 Labs: Abnormal Lab Results - Last 24 Hours (Table) 03/02/22 03/02/22 03/02/22 Range/Units 11:58 17:03 20:21 POC Glucose (mg/dL) 198 H 230 H 229 H (70-110) mg/dL 03/03/22 Range/Units 06:28 POC Glucose (mg/dL) 195 H (70-110) mg/dL Assessment and Plan Assessment: 1. 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 -Activity: Ambulate QID, OOB all meals, up and about, limit lifting bending twisting to less than 5 lbs. Use walker or cane if needed for stability. -Daily PT/OT, increase ambulation strength and balance. -Pain control: Adequate at this time -Meds: reviewed -GI ppx: senna, Miralax -Warren catheter: maintain for now. -DVT PPX: Heparin -Hygiene: Shower today. Maintain dressing clean and dry. Meticulous cleaning after BMs away from the incision site -Encourage IS 10x/hr -Dispo: Anticipate discharge to [facility], possibly Sunday03/06/22. *I reviewed and discussed this case with my attending Dr. Alexander, whom has reviewed this chart and films and is in agreement with assessment and plan of care as outlined above. I have personally seen and examined the patient, performed the documentation and the assessment and plan as written. Number of minutes spent on the visit: 20m
[2022-03-03] MEDS ORDERED: DILTIAZEM CD 120 MG CAP.ER.24H PO STA (10:19)
--- NOTE | 2022-03-03 11:01 | P.PN ---
Subjective Progress Note Date: 03/03/22 Patient is a 71 yo CF with a hx of A fib s/p ablation, GERD, hypertension, dyslipidemia, and right diaphragmatic paralysis who presented for T10 to Pelvis decompression and fusion with revision. Blood loss and the case was approximately 1900 mL. During her operative course she required phenylephrine IV infusion, Vasopressin IVP. She also received TXA gtt. She received 7 L of lactated Ringer's. She received 1 amp of sodium bicarb intaop. She also received albumin. Her operative course was complicated with a cardiac arrest. During the case she developed A. fib with RVR and then quickly transitioned into bradycardia with a low end-tidal CO2. She received 0.4 of atropine and CPR was started. She received epinephrine 0.5. She achieved ROSC. Total down time was less than 5 minutes. Her levo was weaned overnight. During her sedation holiday she was responding appropriately. She was extubated on 02/25. She continued to do well with struggled with pain. Patient seen and examined at bedside. She reports 8/10 pain in her lower back this morning. Also complains of R hip muscular cramping. Working hard with PT and OT. She denies any chest pain or shortness of breath. Adamant about not wanting SNF but willing to consider inpatient rehab. General: ill appearing, mild distress due to pain, appears at stated age Derm: warm, dry Head: atraumatic, normocephalic, symmetric Eyes: EOMI, no lid lag, anicteric sclera Mouth: no lip lesion, mucus membranes moist Cardiovascular: S1S2 irregular, no murmur Lungs: CTA bilateral, no rhonchi, no rales , no accessory muscle use Ext: no gross muscle atrophy, no edema, no contractures Neuro: Moving all 4 extremities independently, light touch intact Psych: Alert, oriented, appropriate affect #T10 to pelvis decompression with fusion - Management per ortho. #Post-op pain - Continue with gabapentin, Valium, and Percocet - Continue with Dilaudid and Percocet - Patient has no stairs and planning on going home, she has nearby help from family but lives alone - PT and OT consulted - PMR consulted #Aborted sudden cardiac - Cardiology on board - Echocardiogram shows EF 35-40% with moderate MR - Telemetry monitoring #Systolic CHF - Euvolemic - Echo from 2019 shows EF 50-55% - Patient will need ischemic workup - Patient would benefit from ACEi and Aldactone prior to discharge - Cardiology on board #Leukocytosis - Suspect secondary to steroids - Follow CBC and fever profile #Right diaphragmatic paralysis - Aggressive pulmonary hygiene - Pulm recs #Acute blood loss anemia, anticipated outcome of surgery - No indication for transfusion at this time - Follow CBC - Coags normal #A flutter with RVR - Xarelto resumed on 02/26 - Cardizem increased - Started on Digoxin - Suspect that suboptimal rate control is related to pain. - Tele #HLD - Statin #HTN - Atenolol, cardizem - Follow blood pressures Resolved: Non-anion gap metbolic acidosis Hypomagnesemia Postoperative respiratory failure, anticipated outcome of surgery She is medically stable. Anticipate discharge to inpatient rehab. Case management on board. Objective - Vital Signs Vital signs: Vital Signs Temp 98.2 F 03/03/22 08:00 Pulse 128 H 03/03/22 08:00 Resp 12 03/03/22 08:00 BP 124/79 03/03/22 08:00 Pulse Ox 95 03/03/22 08:00 FiO2 40 02/25/22 11:10 Intake & Output 03/02/22 03/03/22 03/03/22 18:59 06:59 18:59 Intake Total 1800 400 Output Total 1100 550 Balance 700 -150 Weight 139.5 kg 138.5 kg Intake: IV 800 400 Sodium Chloride 0.9% 1, 800 400 000 ml @ 50 mls/hr IV . Q20H [facility] Rx#:[id number] Oral 1000 Output: Urine 1100 550 Other: Voiding Method External Catheter External Catheter Indwelling Catheter ABP, PAP, CO, CI - Last Documented Arterial Blood Pressure 97/74 - Labs CBC & Chem 7: 03/02/22 05:37 03/02/22 05:37 Labs: Abnormal Lab Results - Last 24 Hours (Table) 03/02/22 03/02/22 03/02/22 Range/Units 11:58 17:03 20:21 POC Glucose (mg/dL) 198 H 230 H 229 H (70-110) mg/dL 03/03/22 Range/Units 06:28 POC Glucose (mg/dL) 195 H (70-110) mg/dL
[2022-03-03] MEDS: diazePAM 2 MG TAB PO PRN (11:21)
--- NOTE | 2022-03-03 11:51 | PN ---
PROGRESS NOTE SUBJECTIVE: This is a 71-year-old lady who is admitted to ICU following back surgery initially secondary to bradycardia. Subsequently, she developed atrial fibrillation with poorly controlled ventricular rate. This morning she is on Cardizem CD 240 daily, I am increasing the dose to 360 mg daily. She is also on digoxin and Tenormin 100 mg daily. OBJECTIVE: VITAL SIGNS: On exam, heart rate is around 120 beats per minute, blood pressure is 124/79, respiratory rate is 18, and O2 saturation is 95% on room air. NECK: There is no jugular venous distention. CHEST: Reveals good air entry bilaterally. HEART: Reveals first and second heart sounds, irregular rhythm. No murmur. ABDOMEN: Soft. EXTREMITIES: Did not reveal any edema. Peripheral pulses are felt. There are no labs on her from this morning. ASSESSMENT AND PLAN: Persistent atrial fibrillation with poorly controlled ventricular rate. We will increase the dose of Cardizem CD and continue rest of her medications. MMODL / IJN: [id number] /
[2022-03-03 12:25] LABS: Glucose,Whole Blood 212 mg/dL (70-110)
[2022-03-03 16:39] LABS: Glucose,Whole Blood 281 mg/dL (70-110)
[2022-03-03] MEDS: RIVAROXABAN 20 MG TAB PO SCH (17:09)
[2022-03-03 20:28] LABS: Glucose,Whole Blood 271 mg/dL (70-110)
[2022-03-03] MEDS: CYCLOBENZAPRINE 10 MG TAB PO PRN (20:37)
[2022-03-03] MEDS: oxyCODONE-APAP 7.5-325MG 1 EACH TAB PO PRN (20:37)
[2022-03-04 06:14] LABS: Glucose,Whole Blood 250 mg/dL (70-110)
[2022-03-04] MEDS: INSULIN ASPART (NovoLOG) 100 UNIT/ML VIAL SQ SCH ×4 (06:55→21:14)
[2022-03-04] MEDS: LEVOTHYROXINE 88 MCG TAB PO SCH (06:56)
[2022-03-04] MEDS: ACETAMINOPHEN TAB 325 MG TAB PO SCH ×4 (06:56→23:35)
[2022-03-04] MEDS: DEXAMETHASONE SOD PHOSPHATE 4 MG/ML 1 ML VIAL IVP SCH ×4 (06:56→23:36)
[2022-03-04] MEDS: oxyCODONE-APAP 10-325MG 1 EACH TAB PO PRN (06:56)
[2022-03-04] MEDS: DULoxetine HCL 60 MG CAPSULE.DR PO SCH (09:03)
[2022-03-04] MEDS: ATORVASTATIN 10 MG TAB PO SCH (09:03)
[2022-03-04] MEDS: GABAPENTIN 300 MG CAP PO SCH ×3 (09:03→21:14)
[2022-03-04] MEDS: DILTIAZEM CD 180 MG CAP.ER.24H PO SCH (09:03)
[2022-03-04] MEDS: diazePAM 2 MG TAB PO PRN ×2 (09:03→15:31)
[2022-03-04] MEDS: atenoloL 50 MG TAB PO SCH (09:03)
[2022-03-04] MEDS: oxyCODONE-APAP 7.5-325MG 1 EACH TAB PO PRN ×3 (09:04→18:56)
[2022-03-04] MEDS: SODIUM CHLORIDE 0.9% 1,000 ML IV SCH ×2 (09:08→09:26)
[2022-03-04] MEDS: DIGOXIN 250 MCG TAB PO SCH (10:30)
[2022-03-04] MEDS: HYDROmorphone 1 MG/ML 1 ML SYRINGE IVP PRN ×3 (10:32→18:57)
--- NOTE | 2022-03-04 11:33 | P.PN ---
Subjective Progress Note Date: 03/04/22 Patient is a 71 yo CF with a hx of A fib s/p ablation, GERD, hypertension, dyslipidemia, and right diaphragmatic paralysis who presented for T10 to Pelvis decompression and fusion with revision. Blood loss and the case was approximately 1900 mL. During her operative course she required phenylephrine IV infusion, Vasopressin IVP. She also received TXA gtt. She received 7 L of lactated Ringer's. She received 1 amp of sodium bicarb intaop. She also received albumin. Her operative course was complicated with a cardiac arrest. During the case she developed A. fib with RVR and then quickly transitioned into bradycardia with a low end-tidal CO2. She received 0.4 of atropine and CPR was started. She received epinephrine 0.5. She achieved ROSC. Total down time was less than 5 minutes. Her levo was weaned overnight. During her sedation holiday she was responding appropriately. She was extubated on 02/25. She continued to do well with struggled with pain. Patient seen and examined at bedside. She continues to report pain in her lower back. Working hard with PT and OT. She denies any chest pain or shortness of breath. Patient is awaiting inpatient rehab. General: ill appearing, mild distress due to pain, appears at stated age Derm: warm, dry Head: atraumatic, normocephalic, symmetric Eyes: EOMI, no lid lag, anicteric sclera Mouth: no lip lesion, mucus membranes moist Cardiovascular: S1S2 irregular, no murmur Lungs: CTA bilateral, no rhonchi, no rales , no accessory muscle use Ext: no gross muscle atrophy, no edema, no contractures Neuro: Moving all 4 extremities independently, light touch intact Psych: Alert, oriented, appropriate affect #T10 to pelvis decompression with fusion - Management per ortho. #Post-op pain - Continue with gabapentin, Valium, and Percocet - Continue with Dilaudid and Percocet - Patient has no stairs and planning on going home, she has nearby help from family but lives alone - PT and OT consulted - PMR consulted #Aborted sudden cardiac - Cardiology on board - Echocardiogram shows EF 35-40% with moderate MR - Telemetry monitoring #Systolic CHF - Euvolemic - Echo from 2019 shows EF 50-55% - Patient will need ischemic workup - Patient would benefit from ACEi and Aldactone prior to discharge - Cardiology on board #Leukocytosis - Suspect secondary to steroids - Follow CBC and fever profile #Right diaphragmatic paralysis - Aggressive pulmonary hygiene - Pulm recs #Acute blood loss anemia, anticipated outcome of surgery - No indication for transfusion at this time - Follow CBC - Coags normal #A flutter with RVR - Xarelto resumed on 02/26 - Cardizem increased - Started on Digoxin - Suspect that suboptimal rate control is related to pain. - Tele #HLD - Statin #HTN - Atenolol, cardizem - Follow blood pressures Resolved: Non-anion gap metbolic acidosis Hypomagnesemia Postoperative respiratory failure, anticipated outcome of surgery She is medically stable. Anticipate discharge to inpatient rehab. Case management on board. Objective - Vital Signs Vital signs: Vital Signs Temp 98.4 F 03/04/22 08:00 Pulse 129 H 03/04/22 08:00 Resp 18 03/04/22 08:00 BP 127/86 03/04/22 08:00 Pulse Ox 98 03/04/22 08:00 FiO2 40 02/25/22 11:10 Intake & Output 03/03/22 03/04/22 03/04/22 18:59 06:59 18:59 Intake Total 250 Output Total 1300 400 300 Balance -1300 -400 -50 Intake: IV 10 Invasive Line 1 10 Oral 240 Output: Urine 1300 400 300 Other: Voiding Method Indwelling Catheter Indwelling Catheter Indwelling Catheter # Voids 2 ABP, PAP, CO, CI - Last Documented Arterial Blood Pressure 97/74 - Labs CBC & Chem 7: 03/02/22 05:37 03/02/22 05:37 Labs: Abnormal Lab Results - Last 24 Hours (Table) 03/03/22 03/03/22 03/03/22 Range/Units 12:24 16:37 20:26 POC Glucose (mg/dL) 212 H 281 H 271 H (70-110) mg/dL 03/04/22 Range/Units 06:11 POC Glucose (mg/dL) 250 H (70-110) mg/dL
[2022-03-04 11:43] LABS: Glucose,Whole Blood 299 mg/dL (70-110)
--- NOTE | 2022-03-04 12:09 | P.PN ---
Subjective Progress Note Date: 03/04/22 Principal diagnosis: Status post T10 to pelvis decompression and fusion patient was evaluated today, she has been transferred from the ICU to the cardiac stepdown unit. Patient states she continues to have discomfort in the back region, meds are helping. She states that she has been in the lower extremities better today. Weight-bear to continue with her rehabilitation proce ss at inpatient rehab or subacute rehab. She denies any headaches, lightheadedness, chest pain or shortness of breath. Objective - Vital Signs Vital signs: Vital Signs Temp 98.4 F 03/04/22 08:00 Pulse 129 H 03/04/22 08:00 Resp 18 03/04/22 08:00 BP 127/86 03/04/22 08:00 Pulse Ox 98 03/04/22 08:00 FiO2 40 02/25/22 11:10 Intake & Output 03/03/22 03/04/22 03/04/22 18:59 06:59 18:59 Intake Total 250 Output Total 1300 400 300 Balance -1300 -400 -50 Intake: IV 10 Invasive Line 1 10 Oral 240 Output: Urine 1300 400 300 Other: Voiding Method Indwelling Catheter Indwelling Catheter Indwelling Catheter # Voids 2 ABP, PAP, CO, CI - Last Documented Arterial Blood Pressure 97/74 - Exam Gen: AOx3, NAD VSS stable at this time Integument: Incision is well healing, rito are all in good position and condition. Mild serosanguineous drainage noted on the bandage. Palpation: Tenderness with palpation to the lower thoracic and lumbar region ROM: For range of motion in all major muscle groups of the bilateral upper and lower extremity is. Patient does demonstrate limitation in the lower extremity range of motion, likely due to surgical pain. Sensory Exam: Senory exam to light touch is intact C5-T1 Senosry exam to light touch is intact L2-S1 Motor: Muscle strength in all major muscle groups of bilateral upper extremities 5/5, right lower extremities 4-/5, left lower extremity 3+/5. Reflexes: Negative Susan's, Babinski, clonus bilaterally - Labs CBC & Chem 7: 03/02/22 05:37 03/02/22 05:37 Labs: Abnormal Lab Results - Last 24 Hours (Table) 03/03/22 03/03/22 03/03/22 Range/Units 12:24 16:37 20:26 POC Glucose (mg/dL) 212 H 281 H 271 H (70-110) mg/dL 03/04/22 03/04/22 Range/Units 06:11 11:42 POC Glucose (mg/dL) 250 H 299 H (70-110) mg/dL Assessment and Plan Assessment: Postoperative day #8 status post [id number] decompression and fusion Plan: Pain control, continue with both oral and IV medication as needed Continue stool softeners daily DVT prophylaxis, continue IRISH hose and compression stockings along with subcu medication Reinforce dressing as needed, plan to change at bedside on 03/05/2022 Weight-bear as tolerated with walker, continue PT/OT Other medical specialty recommendations Discharge planning: Anticipate discharge to rehab on 03/06/2022 Time with Patient: Less than 30
[2022-03-04] MEDS: CYCLOBENZAPRINE 10 MG TAB PO PRN ×2 (12:25→18:56)
[2022-03-04] MEDS ORDERED: AMIODARONE 200 MG TAB PO SCH (15:30)
[2022-03-04 17:01] LABS: Glucose,Whole Blood 273 mg/dL (70-110)
[2022-03-04] MEDS: RIVAROXABAN 20 MG TAB PO SCH (17:38)
[2022-03-04 21:10] LABS: Glucose,Whole Blood 280 mg/dL (70-110)
--- NOTE | 2022-03-04 23:25 | PN ---
PROGRESS NOTE SUBJECTIVE: A 71-year-old lady who was admitted to hospital following back surgery initially secondary to bradycardiac event, currently in atrial flutter, remains in poorly controlled ventricular rate. She is on Cardizem CD, Tenormin, and digoxin. I will add amiodarone and see if this makes any difference. Symptom licea, she is feeling much better. OBJECTIVE: VITAL SIGNS: Heart rate is 120 beats per minute, blood pressure 127/86, respiratory rate is 18, O2 saturation is 98% on room air. NECK: There is no jugular venous distention. CHEST: Reveals diminished air entry at the bases. HEART: Reveals first and second heart sounds, irregular rhythm. No murmur. ABDOMEN: Soft. EXTREMITIES: Did not reveal any edema. Peripheral pulses are felt. ASSESSMENT: Atrial flutter with poorly controlled ventricular rate. PLAN: We will continue with the current medications. I added amiodarone and if she continues to be tachycardic in spite of all these efforts, we might have to cardiovert her. VIOLA / ELIZABETHN: [id number] /
[2022-03-05] MEDS: SODIUM CHLORIDE 0.9% 1,000 ML IV SCH ×2 (03:18→17:13)
[2022-03-05] MEDS: ACETAMINOPHEN TAB 325 MG TAB PO SCH ×4 (06:11→22:57)
[2022-03-05] MEDS: DEXAMETHASONE SOD PHOSPHATE 4 MG/ML 1 ML VIAL IVP SCH ×4 (06:11→22:57)
[2022-03-05] MEDS: LEVOTHYROXINE 88 MCG TAB PO SCH (06:11)
[2022-03-05 06:16] LABS: Glucose,Whole Blood 202 mg/dL (70-110)
[2022-03-05] MEDS: INSULIN ASPART (NovoLOG) 100 UNIT/ML VIAL SQ SCH ×4 (06:35→21:05)
[2022-03-05] MEDS: DIGOXIN 250 MCG TAB PO SCH (09:40)
[2022-03-05] MEDS: DULoxetine HCL 60 MG CAPSULE.DR PO SCH (09:40)
[2022-03-05] MEDS: atenoloL 50 MG TAB PO SCH (09:40)
[2022-03-05] MEDS: DILTIAZEM CD 180 MG CAP.ER.24H PO SCH (09:40)
[2022-03-05] MEDS: GABAPENTIN 300 MG CAP PO SCH ×3 (09:40→21:05)
[2022-03-05] MEDS: ATORVASTATIN 10 MG TAB PO SCH (09:40)
[2022-03-05] MEDS: HYDROmorphone 1 MG/ML 1 ML SYRINGE IVP PRN ×2 (09:41→21:05)
[2022-03-05 12:14] LABS: Glucose,Whole Blood 268 mg/dL (70-110)
--- NOTE | 2022-03-05 12:54 | P.PN ---
Subjective Progress Note Date: 03/05/22 Patient is a 71 yo CF with a hx of A fib s/p ablation, GERD, hypertension, dyslipidemia, and right diaphragmatic paralysis who presented for T10 to Pelvis decompression and fusion with revision. Blood loss and the case was approximately 1900 mL. During her operative course she required phenylephrine IV infusion, Vasopressin IVP. She also received TXA gtt. She received 7 L of lactated Ringer's. She received 1 amp of sodium bicarb intaop. She also received albumin. Her operative course was complicated with a cardiac arrest. During the case she developed A. fib with RVR and then quickly transitioned into bradycardia with a low end-tidal CO2. She received 0.4 of atropine and CPR was started. She received epinephrine 0.5. She achieved ROSC. Total down time was less than 5 minutes. Her levo was weaned overnight. During her sedation holiday she was responding appropriately. She was extubated on 02/25. She continued to do well with struggled with pain. Patient seen and examined at bedside. She continues to report pain in her lower back. Working hard with PT and OT. She reports some shortness of breath today. Not on any supplemental oxygen. Patient is awaiting inpatient rehab. General: ill appearing, mild distress due to pain, appears at stated age Derm: warm, dry Head: atraumatic, normocephalic, symmetric Eyes: EOMI, no lid lag, anicteric sclera Mouth: no lip lesion, mucus membranes moist Cardiovascular: S1S2 irregular, no murmur Lungs: Decreased BS bilateral, no rhonchi, no rales , no accessory muscle use Ext: no gross muscle atrophy, no edema, no contractures Neuro: Moving all 4 extremities independently, light touch intact Psych: Alert, oriented, appropriate affect #T10 to pelvis decompression with fusion - Management per ortho. #Post-op pain - Continue with gabapentin, Valium, and Percocet - Continue with Dilaudid and Percocet - Patient has no stairs and planning on going home, she has nearby help from family but lives alone - PT and OT consulted - PMR consulted #Aborted sudden cardiac - Cardiology on board - Echocardiogram shows EF 35-40% with moderate MR - Telemetry monitoring #Systolic CHF - Euvolemic - Echo from 2019 shows EF 50-55% - Patient will need ischemic workup - Patient would benefit from ACEi and Aldactone prior to discharge - Cardiology on board #Leukocytosis - Suspect secondary to steroids - Follow CBC and fever profile #Right diaphragmatic paralysis - Aggressive pulmonary hygiene - Pulm recs #Acute blood loss anemia, anticipated outcome of surgery - No indication for transfusion at this time - Follow CBC - Coags normal #A flutter with RVR - Xarelto resumed on 02/26 - Cardizem increased - Started on Digoxin - Suspect that suboptimal rate control is related to pain. - Tele #HLD - Statin #HTN - Atenolol, cardizem - Follow blood pressures Resolved: Non-anion gap metbolic acidosis Hypomagnesemia Postoperative respiratory failure, anticipated outcome of surgery She is medically stable. Anticipate discharge to inpatient rehab. Case management on board. Objective - Vital Signs Vital signs: Vital Signs Temp 98.0 F 03/05/22 12:24 Pulse 63 03/05/22 12:24 Resp 16 03/05/22 12:24 BP 132/73 03/05/22 12:24 Pulse Ox 98 03/05/22 12:24 FiO2 40 02/25/22 11:10 Intake & Output 03/04/22 03/05/22 03/05/22 18:59 06:59 18:59 Intake Total 1460 118 Output Total 600 400 200 Balance 860 -400 -82 Weight 142.5 kg Intake: IV 20 Invasive Line 1 20 Oral 1440 118 Output: Urine 600 400 200 Other: Voiding Method Indwelling Catheter Indwelling Catheter Indwelling Catheter ABP, PAP, CO, CI - Last Documented Arterial Blood Pressure 97/74 - Labs CBC & Chem 7: 03/02/22 05:37 03/02/22 05:37 Labs: Abnormal Lab Results - Last 24 Hours (Table) 03/04/22 03/04/22 03/05/22 Range/Units 17:00 21:08 06:11 POC Glucose (mg/dL) 273 H 280 H 202 H (70-110) mg/dL 03/05/22 Range/Units 12:11 POC Glucose (mg/dL) 268 H (70-110) mg/dL
--- NOTE | 2022-03-05 13:47 | XR ---
EXAMINATION TYPE: XR chest 1V portable DATE OF EXAM: 03/05/2022 1:42 PM COMPARISON: Chest radiographs from 02/26/2022 TECHNIQUE: XR chest 1V portable Portable AP radiograph of the chest. CLINICAL INDICATION:Female, 71 years old with history of SOB; FINDINGS: Lungs/Pleura: Prominent interstitial lung markings are seen scattered throughout the lungs. No eviden ce of focal consolidation, pneumothorax or pleural effusion. Elevated right diaphragm is unchanged. B asilar atelectasis noted. Pulmonary vascularity: Unremarkable. Heart/mediastinum: Cardiomediastinal silhouette is enlarged and stable. Musculoskeletal: No acute osseous pathology. Post surgical changes of the spine partially visualized. IMPRESSION: Chronic changes without acute pulmonary process. No significant change from prior.
--- NOTE | 2022-03-05 13:58 | P.PN ---
Subjective Progress Note Date: 03/05/22 Principal diagnosis: Status post T10 to pelvis decompression and fusion patient was evaluated today, she is resting in her hospital bed. She denies any headaches, lightheadedness, chest pain or shortness of breath. Objective - Vital Signs Vital signs: Vital Signs Temp 98.0 F 03/05/22 12:24 Pulse 63 03/05/22 12:24 Resp 16 03/05/22 12:24 BP 132/73 03/05/22 12:24 Pulse Ox 98 03/05/22 12:24 FiO2 40 02/25/22 11:10 Intake & Output 03/04/22 03/05/22 03/05/22 18:59 06:59 18:59 Intake Total 1460 118 Output Total 600 400 200 Balance 860 -400 -82 Weight 142.5 kg Intake: IV 20 Invasive Line 1 20 Oral 1440 118 Output: Urine 600 400 200 Other: Voiding Method Indwelling Catheter Indwelling Catheter Indwelling Catheter ABP, PAP, CO, CI - Last Documented Arterial Blood Pressure 97/74 - Exam Gen: AOx3, NAD VSS stable at this time Integument: Postop bandage was changed at bedside, there was serosanguineous drainage noted on the bandage. [place] are all in good position and condition. No obvious fluctuance appreciated. Palpation: Tenderness with palpation to the lower thoracic and lumbar region ROM: For range of motion in all major muscle groups of the bilateral upper and lower extremity is. Patient does demonstrate limitation in the lower extremity range of motion, likely due to surgical pain. Sensory Exam: Senory exam to light touch is intact C5-T1 Senosry exam to light touch is intact L2-S1 Motor: Muscle strength in all major muscle groups of bilateral upper extremities 5/5, right lower extremities 4-/5, left lower extremity 3+/5. Reflexes: Negative Susan's, Babinski, clonus bilaterally - Labs CBC & Chem 7: 03/02/22 05:37 03/02/22 05:37 Labs: Abnormal Lab Results - Last 24 Hours (Table) 03/04/22 03/04/22 03/05/22 Range/Units 17:00 21:08 06:11 POC Glucose (mg/dL) 273 H 280 H 202 H (70-110) mg/dL 03/05/22 Range/Units 12:11 POC Glucose (mg/dL) 268 H (70-110) mg/dL Assessment and Plan Assessment: Postoperative day #9 status post [id number] decompression and fusion Plan: Pain control, continue with both oral and IV medication as needed Continue stool softeners daily DVT prophylaxis, continue IRISH hose and compression stockings along with subcu medication Continue to monitor dressing for saturation Weight-bear as tolerated with walker, continue PT/OT Other medical specialty recommendations Discharge planning: Anticipate discharge to rehab on 03/06/2022 Time with Patient: Less than 30
--- NOTE | 2022-03-05 14:25 | P.PN ---
Subjective Progress Note Date: 03/05/22 Patient seen doing well today she remains in atrial flutter with a controlled heart rate in the 70s to 80s. Amiodarone was discontinued due to bradycardia. Heart rate remains well controlled. We'll decrease Cardizem to 240 mg daily Objective - Vital Signs Vital signs: Vital Signs Temp 98.0 F 03/05/22 12:24 Pulse 63 03/05/22 12:24 Resp 16 03/05/22 12:24 BP 132/73 03/05/22 12:24 Pulse Ox 98 03/05/22 12:24 FiO2 40 02/25/22 11:10 Intake & Output 03/04/22 03/05/22 03/05/22 18:59 06:59 18:59 Intake Total 1460 118 Output Total 600 400 200 Balance 860 -400 -82 Weight 142.5 kg Intake: IV 20 Invasive Line 1 20 Oral 1440 118 Output: Urine 600 400 200 Other: Voiding Method Indwelling Catheter Indwelling Catheter Indwelling Catheter ABP, PAP, CO, CI - Last Documented Arterial Blood Pressure 97/74 - Exam PHYSICAL EXAM: VITAL SIGNS: Reviewed. GENERAL: Well-developed in no acute distress. HEENT: Head is normocephalic. Pupils are equal, round. Sclerae anicteric. Mucous membranes of the mouth are moist. NECK: Supple. No JVD or thyromegaly RESPIRATORY: Respirations even and unlabored. Lungs diminished to auscultation bilaterally. CARDIO: irRegular rate and rhythm. S1 and S2 heard. No murmur or gallops. EXTREMITIES: Normal range of motion. No clubbing or cyanosis. Peripheral pulses intact. Negative for bilateral lower extremity edema NEURO: Orientated to person, time, mood is appropriate - Labs CBC & Chem 7: 03/02/22 05:37 03/02/22 05:37 Labs: Abnormal Lab Results - Last 24 Hours (Table) 03/04/22 03/04/22 03/05/22 Range/Units 17:00 21:08 06:11 POC Glucose (mg/dL) 273 H 280 H 202 H (70-110) mg/dL 03/05/22 Range/Units 12:11 POC Glucose (mg/dL) 268 H (70-110) mg/dL Assessment and Plan Assessment: Atrial flutter with controlled ventricle rate Plan: Decrease Cardizem to 240 mg daily Further recommendations based on clinical course The above impression and plan of care have been discussed and directed by the signing physician. Ca Jones, nurse practitioner, acting as scribe for signing physician.
[2022-03-05 16:42] LABS: Glucose,Whole Blood 263 mg/dL (70-110)
[2022-03-05] MEDS: RIVAROXABAN 20 MG TAB PO SCH (17:11)
[2022-03-05] MEDS: oxyCODONE-APAP 10-325MG 1 EACH TAB PO PRN (17:12)
[2022-03-05 20:45] LABS: Glucose,Whole Blood 228 mg/dL (70-110)
[2022-03-05] MEDS: diazePAM 2 MG TAB PO PRN (21:05)
[2022-03-05] MEDS: ONDANSETRON 4 MG/2 ML VIAL IVP PRN (21:10)
[2022-03-06] MEDS: oxyCODONE-APAP 7.5-325MG 1 EACH TAB PO PRN ×4 (00:19→23:13)
[2022-03-06 01:19] LABS: Glucose,Whole Blood 232 mg/dL (70-110)
[2022-03-06] MEDS: ACETAMINOPHEN TAB 325 MG TAB PO SCH ×4 (05:22→23:10)
[2022-03-06] MEDS: LEVOTHYROXINE 88 MCG TAB PO SCH (05:22)
[2022-03-06] MEDS: DEXAMETHASONE SOD PHOSPHATE 4 MG/ML 1 ML VIAL IVP SCH ×4 (05:23→23:12)
[2022-03-06 06:05] LABS: Glucose,Whole Blood 254 mg/dL (70-110)
[2022-03-06] MEDS: INSULIN ASPART (NovoLOG) 100 UNIT/ML VIAL SQ SCH ×4 (06:32→20:45)
[2022-03-06] MEDS: diazePAM 2 MG TAB PO PRN ×2 (08:01→20:47)
[2022-03-06] MEDS: ATORVASTATIN 10 MG TAB PO SCH (08:01)
[2022-03-06] MEDS: GABAPENTIN 300 MG CAP PO SCH ×3 (08:01→20:44)
[2022-03-06] MEDS: atenoloL 50 MG TAB PO SCH (08:01)
[2022-03-06] MEDS: DULoxetine HCL 60 MG CAPSULE.DR PO SCH (08:01)
[2022-03-06] MEDS: DILTIAZEM CD 240 MG CAP.ER.24H PO SCH (08:01)
[2022-03-06] MEDS: oxyCODONE-APAP 10-325MG 1 EACH TAB PO PRN (08:01)
[2022-03-06] MEDS: DIGOXIN 250 MCG TAB PO SCH (08:02)
[2022-03-06] MEDS: HYDROmorphone 1 MG/ML 1 ML SYRINGE IVP PRN ×2 (10:17→20:45)
[2022-03-06 11:00] LABS: African American GFR (CKD) >90 (>60 ml/min/1.73 sqM); Anion Gap 7 mmol/L; Blood Urea Nitrogen 29 mg/dL (7-17); Calcium 7.5 mg/dL (8.4-10.2); Carbon Dioxide 23 mmol/L (22-30); Chloride 97 mmol/L (98-107); Glucose 249 mg/dL (74-99); Non-African American GFR(CKD) >90 (>60 ml/min/1.73 sqM); Potassium 5.2 mmol/L (3.5-5.1); Sodium 127 mmol/L (137-145)
[2022-03-06] MEDS ORDERED: FUROSEMIDE 10 MG/ML 4 ML VIAL IV STA (11:26)
--- NOTE | 2022-03-06 11:39 | P.PN ---
Subjective Progress Note Date: 03/06/22 Patient is a 71 yo CF with a hx of A fib s/p ablation, GERD, hypertension, dyslipidemia, and right diaphragmatic paralysis who presented for T10 to Pelvis decompression and fusion with revision. Blood loss and the case was approximately 1900 mL. During her operative course she required phenylephrine IV infusion, Vasopressin IVP. She also received TXA gtt. She received 7 L of lactated Ringer's. She received 1 amp of sodium bicarb intaop. She also received albumin. Her operative course was complicated with a cardiac arrest. During the case she developed A. fib with RVR and then quickly transitioned into bradycardia with a low end-tidal CO2. She received 0.4 of atropine and CPR was started. She received epinephrine 0.5. She achieved ROSC. Total down time was less than 5 minutes. Her levo was weaned overnight. During her sedation holiday she was responding appropriately. She was extubated on 02/25. She continued to do well with struggled with pain. Patient seen and examined at bedside. She continues to report pain in her lower back. Pain is 10/10 in severity. Working hard with PT and OT. Patient is awaiting inpatient rehab. Had an episode of nausea, vomiting and diarrhea yesterday. General: ill appearing, mild distress due to pain, appears at stated age Derm: warm, dry Head: atraumatic, normocephalic, symmetric Eyes: EOMI, no lid lag, anicteric sclera Mouth: no lip lesion, mucus membranes moist Cardiovascular: S1S2 irregular, no murmur Lungs: Decreased BS bilateral, no rhonchi, no rales , no accessory muscle use Ext: no gross muscle atrophy, 2+ LE edema, no contractures Neuro: Moving all 4 extremities independently, light touch intact Psych: Alert, oriented, appropriate affect #Hyponatremia Likely hypervolemic. Lasix 40 mg IV x 1 today. Repeat BMP tomorrow morning. #Hyperkalemia K 5.2. Mildly elevated. Lasix 40 mg IV x 1 today. Repeat BMP tomorrow morning. #T10 to pelvis decompression with fusion Management per Orthopedic surgery #Post-op pain Continue with gabapentin, Valium Continue with Dilaudid and Percocet PRN Patient has no stairs and planning on going home, she has nearby help from family but lives alone PT and OT consulted PMR consulted #Aborted sudden cardiac Cardiology on board Echocardiogram shows EF 35-40% with moderate MR Telemetry monitoring #Systolic CHF Echo from 2019 shows EF 50-55% Patient will need ischemic workup Patient would benefit from ACEi and Aldactone prior to discharge Cardiology on board #Leukocytosis Suspect secondary to steroids Follow CBC and fever profile #Right diaphragmatic paralysis Aggressive pulmonary hygiene Pulmonology on board #Acute blood loss anemia, anticipated outcome of surgery No indication for transfusion at this time Follow CBC Coags normal #A flutter with RVR Xarelto resumed on 02/26 Cardizem, Digoxin Suspect that suboptimal rate control is related to pain. Tele #HLD Statin #HTN Atenolol, cardizem Follow blood pressures Resolved: Non-anion gap metbolic acidosis Hypomagnesemia Postoperative respiratory failure, anticipated outcome of surgery She is medically stable. Anticipate discharge to inpatient rehab. Case management on board. Objective - Vital Signs Vital signs: Vital Signs Temp 97.9 F 03/06/22 07:57 Pulse 55 L 03/06/22 07:58 Resp 18 03/06/22 07:58 BP 121/60 03/06/22 07:57 Pulse Ox 96 03/06/22 07:57 FiO2 40 02/25/22 11:10 Intake & Output 03/05/22 03/06/22 03/06/22 18:59 06:59 18:59 Intake Total 838 190 Output Total 800 500 750 Balance 38 -500 -560 Intake: IV 10 Invasive Line 1 10 Oral 838 180 Output: Urine 800 500 750 Uretheral (Warren) 750 Other: Voiding Method Indwelling Catheter Indwelling Catheter Indwelling Catheter # Bowel Movements 1 1 ABP, PAP, CO, CI - Last Documented Arterial Blood Pressure 97/74 - Labs CBC & Chem 7: 03/02/22 05:37 03/06/22 10:25 Labs: Abnormal Lab Results - Last 24 Hours (Table) 03/05/22 03/05/22 03/05/22 Range/Units 12:11 16:40 20:44 Sodium (137-145) mmol/L Potassium (3.5-5.1) mmol/L Chloride (98-107) mmol/L BUN (7-17) mg/dL Glucose (74-99) mg/dL POC Glucose (mg/dL) 268 H 263 H 228 H (70-110) mg/dL Calcium (8.4-10.2) mg/dL 03/06/22 03/06/22 03/06/22 Range/Units 01:18 06:04 10:25 Sodium 127 L (137-145) mmol/L Potassium 5.2 H (3.5-5.1) mmol/L Chloride 97 L (98-107) mmol/L BUN 29 H (7-17) mg/dL Glucose 249 H (74-99) mg/dL POC Glucose (mg/dL) 232 H 254 H (70-110) mg/dL Calcium 7.5 L (8.4-10.2) mg/dL
[2022-03-06 12:13] LABS: Glucose,Whole Blood 263 mg/dL (70-110)
[2022-03-06 12:44] LABS: Anisocytosis Slight; Hypochromasia Moderate; MCH 29.4 pg (25.0-35.0); MCHC 31.1 g/dL (31.0-37.0); Macrocytosis Slight; Mean Platelet Volume 11.9; Poikilocytosis Slight; RBC 2.53 m/uL (3.80-5.40); RDW 16.9 % (11.5-15.5); WBC 26.1 k/uL (3.8-10.6)
[2022-03-06 12:45] LABS: HGB 7.5 gm/dL (11.4-16.0); MCV 94.8 fL (80.0-100.0)
--- NOTE | 2022-03-06 14:09 | P.PN ---
Subjective Patient is pleasant 71-year-old female with history of persistent typical atrial flutter, paroxysmal atrial fibrillation, hypertension, hyperlipidemia. She follows with Dr. Leger. We are consulted for A flutter. She presented for elective back surgery. She underwent T10 to Pelvis decompression and fusion with revision with Ortho. She did have complicated long procedure. She has been noted to be in atrial flutter throughout the case however started noticing decrease in heart rate and patient became bradycardic with heart rates into the 20s and 30s. CRYSTAL RICE was called and patient received brief round of CPR as well as atropine and epinephrine with improvement in heart rates. She was initially in the ICU and now on 3S cardiac stepdown unit. Her echocardiogram revealed an EF of 3540%, severe pulmonary hypertension with an RVSP of 72 mmHg, moderate mitral regurgitation. 03/06 Patient seen and examined at bedside, no acute distress. Her amiodarone and beta nic was discontinued because of bradycardia. She is currently on Xar elto 20 mg daily anticoagulation, digoxin and PO cardizem. She continues to be in atrial flutter with controlled rates. Currently her main complaint is pain control. GENERAL: In no acute distress. NECK: Supple without JVD LUNGS: Breath sounds clear to auscultation bilaterally. Respiration equal and unlabored. No wheezes, rales or rhonchi. HEART: Irregular ate and rhythm without murmurs, rubs or gallops. S1 and S2 heard. EXTREMITIES: Normal range of motion, no edema. No clubbing or cyanosis. Peripheral pulses intact. ASSESSMENT Typical Atrial flutter,with severe bradycardic episode and of the 20s to 30s status post brief round of CPR. Appears mainly related to severe metabolic derangements with severe acidosis during surgery. Status post back surgery Paroxysmal atrial fibrillation Hypertension Hyperlipidemia Cardiomyopathy, ischemic vs non-ischemic PLAN Patients heart rates are controlled Currently on Xarelto anticoagulation Patient had significant bradycardic episode however severe metabolic derangements with severe acidosis bicarb 6. Do not suspect underlying SSS and no current need for PPM. Continue current cardiac medications Further recommendations based on clinical course Nurse Practitioner note has been reviewed, I agree with a documented findings and plan of care. Patient was seen and examined. Objective - Vital Signs Vital signs: Vital Signs Temp 98.1 F 03/05/22 15:10 Pulse 70 03/05/22 15:10 Resp 16 03/05/22 15:10 BP 131/78 03/05/22 15:10 Pulse Ox 97 03/05/22 15:10 FiO2 40 02/25/22 11:10 Intake & Output 03/05/22 03/05/22 03/06/22 06:59 18:59 06:59 Intake Total 838 Output Total 400 800 Balance -400 38 Weight 142.5 kg Intake: Oral 838 Output: Urine 400 800 Other: Voiding Method Indwelling Catheter Indwelling Catheter ABP, PAP, CO, CI - Last Documented Arterial Blood Pressure 97/74 - Labs CBC & Chem 7: 03/06/22 10:25 03/06/22 10:25 Labs: Abnormal Lab Results - Last 24 Hours (Table) 03/04/22 03/05/22 03/05/22 Range/Units 21:08 06:11 12:11 POC Glucose (mg/dL) 280 H 202 H 268 H (70-110) mg/dL 03/05/22 Range/Units 16:40 POC Glucose (mg/dL) 263 H (70-110) mg/dL
[2022-03-06 14:55] LABS: Platelet Count 226 k/uL (150-450)
--- NOTE | 2022-03-06 15:49 | P.PN ---
Subjective Progress Note Date: 03/06/22 Principal diagnosis: Status post T10 to pelvis decompression and fusion patient was evaluated today, she is resting in her hospital bed. Patient's son is in room also. I was notified by nursing prior to going in the room, patient had witnessed fall. Patient attempted to use the bathroom when her legs are weak, she was lowered floor. There was trauma visualized. Patient's knee did hyperflexed during this incident. She does complain of right knee pain at this time. Denies any headaches, blurred vision, lightheadedness, chest pain or shortness of breath. Objective - Vital Signs Vital signs: Vital Signs Temp 97.8 F 03/06/22 12:30 Pulse 58 L 03/06/22 12:30 Resp 18 03/06/22 12:30 BP 105/65 03/06/22 12:30 Pulse Ox 98 03/06/22 12:30 FiO2 40 02/25/22 11:10 Intake & Output 03/05/22 03/06/22 03/06/22 18:59 06:59 18:59 Intake Total 838 308 Output Total 800 500 750 Balance 38 -500 -442 Intake: IV 10 Invasive Line 1 10 Oral 838 298 Output: Urine 800 500 750 Uretheral (Warren) 750 Other: Voiding Method Indwelling Catheter Indwelling Catheter Indwelling Catheter # Bowel Movements 1 1 ABP, PAP, CO, CI - Last Documented Arterial Blood Pressure 97/74 - Exam Gen: AOx3, NAD VSS stable at this time Integument: Postop bandage was in good position and condition. I did discuss with nursing, they did change dressing earlier this morning. There was significant serosanguineous drainage noted. Palpation: Tenderness with palpation to the lower thoracic and lumbar region. Patient notes tenderness with palpation to the medial aspect of the knee. ROM: For range of motion in all major muscle groups of the bilateral upper and lower extremity is. Patient does demonstrate limitation in the lower extremity range of motion, likely due to surgical pain. Sensory Exam: Senory exam to light touch is intact C5-T1 Senosry exam to light touch is intact L2-S1 Motor: Muscle strength in all major muscle groups of bilateral upper extremities 5/5, right lower extremities 4-/5, left lower extremity 3+/5. She is able to activate quadriceps muscle, I can appreciate the muscle tone. She is able to slightly lift the leg off the bed and also flex the knee with minimal difficulty. Reflexes: Negative Susan's, Babinski, clonus bilaterally - Labs CBC & Chem 7: 03/06/22 10:25 03/06/22 10:25 Labs: Abnormal Lab Results - Last 24 Hours (Table) 03/05/22 03/05/22 03/06/22 Range/Units 16:40 20:44 01:18 WBC (3.8-10.6) k/uL RBC (3.80-5.40) m/uL Hgb (11.4-16.0) gm/dL Hct (34.0-46.0) % RDW (11.5-15.5) % Sodium (137-145) mmol/L Potassium (3.5-5.1) mmol/L Chloride (98-107) mmol/L BUN (7-17) mg/dL Glucose (74-99) mg/dL POC Glucose (mg/dL) 263 H 228 H 232 H (70-110) mg/dL Calcium (8.4-10.2) mg/dL 03/06/22 03/06/22 03/06/22 Range/Units 06:04 10:25 10:25 WBC 26.1 H (3.8-10.6) k/uL RBC 2.53 L (3.80-5.40) m/uL Hgb 7.5 L D (11.4-16.0) gm/dL Hct 24.0 L (34.0-46.0) % RDW 16.9 H (11.5-15.5) % Sodium 127 L (137-145) mmol/L Potassium 5.2 H (3.5-5.1) mmol/L Chloride 97 L (98-107) mmol/L BUN 29 H (7-17) mg/dL Glucose 249 H (74-99) mg/dL POC Glucose (mg/dL) 254 H (70-110) mg/dL Calcium 7.5 L (8.4-10.2) mg/dL 03/06/22 Range/Units 12:11 WBC (3.8-10.6) k/uL RBC (3.80-5.40) m/uL Hgb (11.4-16.0) gm/dL Hct (34.0-46.0) % RDW (11.5-15.5) % Sodium (137-145) mmol/L Potassium (3.5-5.1) mmol/L Chloride (98-107) mmol/L BUN (7-17) mg/dL Glucose (74-99) mg/dL POC Glucose (mg/dL) 263 H (70-110) mg/dL Calcium (8.4-10.2) mg/dL Assessment and Plan Assessment: Postoperative day #9 status post [id number] decompression and fusion Hyponatremia Hyperkalemia Anemia Right knee pain, status post fall with hyperflexion Plan: X-ray of the right knee has been ordered, we resolved Pain control, continue with both oral and IV medication as needed Continue stool softeners daily DVT prophylaxis, continue IRISH hose and compression stockings along with subcu medication Continue to monitor dressing saturation, will discuss with Dr. Alexander Weight-bear as tolerated with walker, continue PT/OT Other medical specialty recommendations Discharge planning: Patient remains nonmedically stable for discharge Time with Patient: Less than 30
--- NOTE | 2022-03-06 16:06 | XR ---
EXAMINATION TYPE: XR knee complete RT DATE OF EXAM: 03/06/2022 3:50 PM INDICATION: Patient age:Female; 71 years old; Reason for study: right knee pain, s/p hyperflexion injury; COMPARISON: 01/18/2021 TECHNIQUE: The Right knee(s) was examined in Frontal, lateral and oblique projections. FINDINGS: Total right knee arthroplasty changes. Hardware appears intact and appropriate position. No evidence of any acute osseous pathology, IMPRESSION: 1. No acute osseous pathology. 2. Total knee arthroplasty with revision changes without evidence of fracture or hardware failure.
[2022-03-06 16:56] LABS: Glucose,Whole Blood 271 mg/dL (70-110)
[2022-03-06] MEDS: RIVAROXABAN 20 MG TAB PO SCH (17:35)
[2022-03-06 20:28] LABS: Glucose,Whole Blood 288 mg/dL (70-110)
[2022-03-07] MEDS: ACETAMINOPHEN TAB 325 MG TAB PO SCH ×3 (05:19→18:30)
[2022-03-07 06:22] LABS: Glucose,Whole Blood 267 mg/dL (70-110)
[2022-03-07] MEDS: LEVOTHYROXINE 88 MCG TAB PO SCH (06:31)
[2022-03-07] MEDS: INSULIN ASPART (NovoLOG) 100 UNIT/ML VIAL SQ SCH ×4 (06:31→20:35)
[2022-03-07 07:42] LABS: Glucose,Whole Blood 239 mg/dL (70-110)
--- NOTE | 2022-03-07 08:20 | XR ---
EXAMINATION TYPE: XR chest 1V portable DATE OF EXAM: 03/07/2022 Comparison: 03/05/2022 Clinical History: 71-year-old female SOB Findings: 8 year midline skin rito. Partially visualized thoracolumbar fusion hardware. Patient is oblique t owards the right and also rotated towards the right. Heart appears mildly enlarged. Patchy bibasilar opacities remain. Impression: Obliques and rotated portable exam. Borderline heart size. Patchy bibasilar opacities, probably atele ctasis similar to slightly increased.
[2022-03-07 08:51] LABS: Anisocytosis Slight; HCT 23.3 % (34.0-46.0); Hypochromasia Marked; MCH 29.4 pg (25.0-35.0); MCV 97.8 fL (80.0-100.0); Macrocytosis Slight; Mean Platelet Volume 10.5; Platelet Count 356 k/uL (150-450); Poikilocytosis Slight; RBC 2.38 m/uL (3.80-5.40); RDW 17.8 % (11.5-15.5); WBC 42.3 k/uL (3.8-10.6)
[2022-03-07 08:52] LABS: Calcium 7.1 mg/dL (8.4-10.2); Magnesium 2.5 mg/dL (1.6-2.3)
[2022-03-07 08:54] LABS: Potassium 6.1 mmol/L (3.5-5.1)
[2022-03-07] MEDS ORDERED: SODIUM BICARB 8.4% 50 ML SYR (1 MEQ/ML) IV STA (09:16)
[2022-03-07] MEDS ORDERED: SODIUM CHLORIDE 0.9% 1,000 ML IV ONE ×3 (09:18→14:07)
[2022-03-07] MEDS ORDERED: INSULIN REGULAR 100 UNIT/ML VIAL (IV) IV ONE (09:20)
[2022-03-07] MEDS ORDERED: DEXTROSE 50% SYRINGE 50 ML IVP STA (09:20)
[2022-03-07] MEDS ORDERED: ALBUTEROL NEBULIZED 2.5 MG/3 ML INHALATION STA (09:21)
[2022-03-07] MEDS: GABAPENTIN 300 MG CAP PO SCH ×3 (10:19→21:58)
[2022-03-07] MEDS: DILTIAZEM CD 240 MG CAP.ER.24H PO SCH (10:19)
[2022-03-07] MEDS: atenoloL 50 MG TAB PO SCH (10:19)
[2022-03-07] MEDS: DEXAMETHASONE SOD PHOSPHATE 4 MG/ML 1 ML VIAL IVP SCH ×2 (10:19→16:37)
[2022-03-07] MEDS: DULoxetine HCL 60 MG CAPSULE.DR PO SCH (10:20)
[2022-03-07] MEDS: ATORVASTATIN 10 MG TAB PO SCH (10:20)
--- NOTE | 2022-03-07 10:29 | P.PN ---
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 Called nurse to room they are contacting medicine bindu. She is getting an EKG and labs. She rolled in the bed well for me to look at her back and has good motion in her LE. She is still having difficulty with mobility but is improving. She needs assistance with getting up and moving about her room with walker and 2 people. She is able to sit at bedside although needs minimal help to get up to this point. She is able to roll in her bed relatively normally. Denies any LOZANO, N, V. States CP and SOB this AM. States no other issues. NO leg pain. No perineal numbness/tingling. Objective - Vital Signs Vital signs: Vital Signs Temp 98.2 F 03/07/22 04:00 Pulse 51 L 03/07/22 09:47 Resp 22 03/07/22 09:47 BP 128/74 03/07/22 04:00 Pulse Ox 96 03/07/22 07:14 FiO2 40 02/25/22 11:10 Intake & Output 03/06/22 03/07/22 03/07/22 18:59 06:59 18:59 Intake Total 318 810 0 Output Total 1500 700 Balance -1182 110 0 Intake: IV 20 Invasive Line 1 20 Oral 298 810 0 Output: Urine 1500 700 Uretheral (Warren) 750 Other: Voiding Method Indwelling Catheter Indwelling Catheter # Bowel Movements 1 ABP, PAP, CO, CI - Last Documented Arterial Blood Pressure 97/74 - Exam Exam repeated showing improvement. She has good strengths in b/l LE. Her dressing is clean and dry currently. Physical Examination General: The patient is awake and alert, in no acute distress Skin: Skin is warm and dry with no obvious rashes or lesions. Hairy patches absent, no dorsal skin dimples, no cafe au lait spots, Surgical incision to thoracic and lumbar region. Dressing is CDI with Drain present. Eye: Pupils are equal, round and reactive to light, extra-ocular movements are intact; there is normal conjunctiva bilaterally. Neck: The neck is supple, there is no tenderness and ROM intact. Cardiovascular: There is a irregular rate and rhythm. No murmur, rub or gallop is appreciated. Respiratory: Lungs are clear to auscultation, respirations are non-labored, breath sounds are equal. Gastrointestinal: Soft, non-distended, non-tender abdomen. Back: There is slight tenderness to palpation in the para-lumbar region. There is no obvious deformity . Musculoskeletal: ROM limited secondary to pain and stiffness from surgical p rocedure. Muscle strength in all major muscle groups of bilateral upper extremities 5/5, right lower extremities 4/5, left lower extremity 4/5. Neurological: CN 2-12 intact. There are no obvious motor or sensory deficits. Movement and coordination equal and intact. Sensory exam to light touch intact C5-T1 and intact from L2-S1. Reflexes 2/4 in bilateral upper and lower extremities. Negative Hoffmans, babinski, and clonus signs. Psychiatric: Cooperative, appropriate mood & affect, normal judgment. - Labs CBC & Chem 7: 03/07/22 08:33 03/07/22 08:33 Labs: Abnormal Lab Results - Last 24 Hours (Table) 03/06/22 03/06/22 03/06/22 Range/Units 10:25 10:25 12:11 WBC 26.1 H (3.8-10.6) k/uL RBC 2.53 L (3.80-5.40) m/uL Hgb 7.5 L D (11.4-16.0) gm/dL Hct 24.0 L (34.0-46.0) % MCHC (31.0-37.0) g/dL RDW 16.9 H (11.5-15.5) % Sodium 127 L (137-145) mmol/L Potassium 5.2 H (3.5-5.1) mmol/L Chloride 97 L (98-107) mmol/L Carbon Dioxide (22-30) mmol/L BUN 29 H (7-17) mg/dL Creatinine (0.52-1.04) mg/dL Glucose 249 H (74-99) mg/dL POC Glucose (mg/dL) 263 H (70-110) mg/dL Calcium 7.5 L (8.4-10.2) mg/dL Magnesium (1.6-2.3) mg/dL 03/06/22 03/06/22 03/07/22 Range/Units 16:56 20:27 06:17 WBC (3.8-10.6) k/uL RBC (3.80-5.40) m/uL Hgb (11.4-16.0) gm/dL Hct (34.0-46.0) % MCHC (31.0-37.0) g/dL RDW (11.5-15.5) % Sodium (137-145) mmol/L Potassium (3.5-5.1) mmol/L Chloride (98-107) mmol/L Carbon Dioxide (22-30) mmol/L BUN (7-17) mg/dL Creatinine (0.52-1.04) mg/dL Glucose (74-99) mg/dL POC Glucose (mg/dL) 271 H 288 H 267 H (70-110) mg/dL Calcium (8.4-10.2) mg/dL Magnesium (1.6-2.3) mg/dL 03/07/22 03/07/22 03/07/22 Range/Units 07:41 08:33 08:33 WBC 42.3 H (3.8-10.6) k/uL RBC 2.38 L (3.80-5.40) m/uL Hgb 7.0 L (11.4-16.0) gm/dL Hct 23.3 L (34.0-46.0) % MCHC 30.0 L (31.0-37.0) g/dL RDW 17.8 H (11.5-15.5) % Sodium 127 L (137-145) mmol/L Potassium 6.1 H* (3.5-5.1) mmol/L Chloride 97 L (98-107) mmol/L Carbon Dioxide 14 L (22-30) mmol/L BUN 43 H (7-17) mg/dL Creatinine 1.12 H (0.52-1.04) mg/dL Glucose 228 H (74-99) mg/dL POC Glucose (mg/dL) 239 H (70-110) mg/dL Calcium 7.1 L (8.4-10.2) mg/dL Magnesium 2.5 H (1.6-2.3) mg/dL Assessment and Plan Assessment: 1. 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 Appreciate medical management 2. Maintain dressing CDI 3. Pain management - oxycodone; Dilaudid; Flexeril; gabapentin; Tylenol 4. GI prophylaxis - senna; milk of mag 5. DVT prophylaxis - Xarelto 6. PT/OT recs 7. Encourage incentive spirometer use 8. Discharge planning - Did a P2P yesterday for [facility] and she is approved. Once she is stable she can go.
[2022-03-07 12:08] LABS: Glucose,Whole Blood 193 mg/dL (70-110)
--- NOTE | 2022-03-07 12:13 | US ---
EXAMINATION TYPE: US kidneys/renal and bladder DATE OF EXAM: 03/07/2022 COMPARISON: Correlation CT 01/05/2017 CLINICAL HISTORY: 71-year-old female B[place] TECHNIQUE: Multiple sonographic images of the kidneys and bladder are obtained. FINDINGS: EXAM MEASUREMENTS: Right Kidney: 12.9 x 4.6 x 4.1 cm Left Kidney: 12.7 x 6.0 x 4.3 cm Right Kidney: lobulated contour, no evidence of hydronephrosis Left Kidney: The region of the renal pelvis appears dilated with contiguous dilatation in the region of the upper and mid pole moieties. Distention up to 8.3 x 3.2 x 4.7cm . On the 01/05/2017 CT, we note a parapelvic cyst measuring up to 4.4 cm. Bladder: Warren Catheter IMPRESSION: 1. No hydronephrosis on the right. 2. Cystic distended area centrally upper and midpole left kidney measuring up to 8.[address] cm[address], we note a large parapelvic cyst measuring 4.4 cm. Findings may represent the same parapelvic cyst having further enlarged in the interval. Consider short interval ultrasound follow-up. Once patient' s kidney function improves to baseline, contrast-enhanced CT can exclude concurrent hydronephrosis. 3. Warren catheter in place.
--- NOTE | 2022-03-07 12:22 | P.PN ---
Subjective Patient is pleasant 71-year-old female with history of persistent typical atrial flutter, paroxysmal atrial fibrillation, hypertension, hyperlipidemia. She follows with Dr. Leger. We are consulted for A flutter. She presented for elective back surgery. She underwent T10 to Pelvis decompression and fusion with revision with Ortho. She did have complicated long procedure. She has been noted to be in atrial flutter throughout the case however started noticing decrease in heart rate and patient became bradycardic with heart rates into the 20s and 30s. CRYSTAL RICE was called and patient received brief round of CPR as well as atropine and epinephrine with improvement in heart rates. She was initially in the ICU and now on 3S cardiac stepdown unit. Her echocardiogram revealed an EF of 3540%, severe pulmonary hypertension with an RVSP of 72 mmHg, moderate mitral regurgitation. 03/07 Patient seen and examined at bedside, she is having significant pain this morning in her back. Her amiodarone and beta nic was discontinued because of bradycardia. She is currently on Xarelto 20 mg daily anticoagulation, and PO cardizem. Her kidney function is abnormal and hyperkalemic and her Dig was placed on hold. She continues to be in atrial flutter with controlled rates. Currently her main complaint is pain control. She had chest pain this morning. Located in the center of her chest. EKG atrial flutter with no acute ST-T wave abnormalities. GENERAL: In no acute distress. NECK: Supple without JVD LUNGS: Breath sounds clear to auscultation bilaterally. Respiration equal and unlabored. No wheezes, rales or rhonchi. HEART: Irregular ate and rhythm without murmurs, rubs or gallops. S1 and S2 heard. EXTREMITIES: Normal range of motion, no edema. No clubbing or cyanosis. Peripheral pulses intact. ASSESSMENT Typical Atrial flutter,with severe bradycardic episode and of the 20s to 30s status post brief round of CPR. Appears mainly related to severe metabolic derangements with severe acidosis during surgery. Status post back surgery Paroxysmal atrial fibrillation Hypertension Hyperlipidemia Cardiomyopathy, ischemic vs non-ischemic Hyperkalemia Back pain Acute kidney injury PLAN Patients heart rates are controlled Currently on Xarelto anticoagulation Digoxin on hold, Dig level pending Stat troponin negative Continue current cardiac medications Further recommendations based on clinical course Nurse Practitioner note has been reviewed, I agree with a documented findings and plan of care. Patient was seen and examined. Objective - Vital Signs Vital signs: Vital Signs Temp 98.7 F 03/07/22 08:00 Pulse 51 L 03/07/22 09:47 Resp 22 03/07/22 09:47 BP 107/56 03/07/22 08:00 Pulse Ox 98 03/07/22 08:00 FiO2 40 02/25/22 11:10 Intake & Output 03/06/22 03/07/22 03/07/22 18:59 06:59 18:59 Intake Total 318 810 0 Output Total 1500 700 Balance -1182 110 0 Intake: IV 20 Invasive Line 1 20 Oral 298 810 0 Output: Urine 1500 700 Uretheral (Warren) 750 Other: Voiding Method Indwelling Catheter Indwelling Catheter # Bowel Movements 1 ABP, PAP, CO, CI - Last Documented Arterial Blood Pressure 97/74 - Labs CBC & Chem 7: 03/07/22 08:33 03/07/22 08:33 Labs: Abnormal Lab Results - Last 24 Hours (Table) 03/06/22 03/06/22 03/06/22 Range/Units 10:25 16:56 20:27 WBC 26.1 H (3.8-10.6) k/uL RBC 2.53 L (3.80-5.40) m/uL Hgb 7.5 L D (11.4-16.0) gm/dL Hct 24.0 L (34.0-46.0) % MCHC (31.0-37.0) g/dL RDW 16.9 H (11.5-15.5) % Sodium (137-145) mmol/L Potassium (3.5-5.1) mmol/L Chloride (98-107) mmol/L Carbon Dioxide (22-30) mmol/L BUN (7-17) mg/dL Creatinine (0.52-1.04) mg/dL Glucose (74-99) mg/dL POC Glucose (mg/dL) 271 H 288 H (70-110) mg/dL Calcium (8.4-10.2) mg/dL Magnesium (1.6-2.3) mg/dL 03/07/22 03/07/22 03/07/22 Range/Units 06:17 07:41 08:33 WBC 42.3 H (3.8-10.6) k/uL RBC 2.38 L (3.80-5.40) m/uL Hgb 7.0 L (11.4-16.0) gm/dL Hct 23.3 L (34.0-46.0) % MCHC 30.0 L (31.0-37.0) g/dL RDW 17.8 H (11.5-15.5) % Sodium (137-145) mmol/L Potassium (3.5-5.1) mmol/L Chloride (98-107) mmol/L Carbon Dioxide (22-30) mmol/L BUN (7-17) mg/dL Creatinine (0.52-1.04) mg/dL Glucose (74-99) mg/dL POC Glucose (mg/dL) 267 H 239 H (70-110) mg/dL Calcium (8.4-10.2) mg/dL Magnesium (1.6-2.3) mg/dL 03/07/22 03/07/22 Range/Units 08:33 12:06 WBC (3.8-10.6) k/uL RBC (3.80-5.40) m/uL Hgb (11.4-16.0) gm/dL Hct (34.0-46.0) % MCHC (31.0-37.0) g/dL RDW (11.5-15.5) % Sodium 127 L (137-145) mmol/L Potassium 6.1 H* (3.5-5.1) mmol/L Chloride 97 L (98-107) mmol/L Carbon Dioxide 14 L (22-30) mmol/L BUN 43 H (7-17) mg/dL Creatinine 1.12 H (0.52-1.04) mg/dL Glucose 228 H (74-99) mg/dL POC Glucose (mg/dL) 193 H (70-110) mg/dL Calcium 7.1 L (8.4-10.2) mg/dL Magnesium 2.5 H (1.6-2.3) mg/dL
[2022-03-07] MEDS ORDERED: VANCOMYCIN IV PER PHARMACY 1 EACH MISC MISCELLANE PRN (13:51)
[2022-03-07 14:55] LABS: ABG Base Excess -6.5 mmol/L; ABG HCO3 18 mmol/L (21-25); ABG Oxygen Saturation 99.3 % (94-97); ABG PCO2 28 mmHg (35-45); ABG PH 7.42 (7.35-7.45); ABG PO2 103 mmHg (83-108); ABG TCO2 19 mmol/L (19-24)
[2022-03-07 15:07] LABS: Glucose,Whole Blood 205 mg/dL (70-110)
--- NOTE | 2022-03-07 15:19 | P.PN ---
Subjective Progress Note Date: 03/07/22 Patient is a 71 yo CF with a hx of A fib s/p ablation, GERD, hypertension, dyslipidemia, and right diaphragmatic paralysis who presented for T10 to Pelvis decompression and fusion with revision. Blood loss and the case was approximately 1900 mL. During her operative course she required phenylephrine IV infusion, Vasopressin IVP. She also received TXA gtt. She received 7 L of lactated Ringer's. She received 1 amp of sodium bicarb intaop. She also received albumin. Her operative course was complicated with a cardiac arrest. During the case she developed A. fib with RVR and then quickly transitioned into bradycardia with a low end-tidal CO2. She received 0.4 of atropine and CPR was started. She received epinephrine 0.5. She achieved ROSC. Total down time was less than 5 minutes. Her levo was weaned overnight. During her sedation holiday she was responding appropriately. She was extubated on 02/25. She continued to do well with struggled with pain. She was downgraded from ICU on 03/03. She was evaluated by PMR. She had been progressing well with PT and OT while waiting on inpatient rehab. Patient seen and examined at bedside around 8AM this morning. Patient has complaints of chest pain and shortness of breath. She was hemodynamically stable with BP of 107/56 and P of 72 on 2L NC. CXR was ordered which showed patchy bibasilar opacities, likely atelectasis. CBC showed leukocytosis of 42.3 and Hg of 7.0. BMP showed Na 127, K 6.1, Cl 97, bicarb 14, BUN 43, Cr 1.12. Troponin showed 0.03 with EKG showing Q waves and no ST elevation. She was treated with 1L NS bolus, IV insulin/D50, Albuterol and sodium bicarbonate. Digoxin level was 1.1. Patient was re-evaluated around 2PM. Her BP had dropped to 78/47, heart rate in the 60s. She appeared more lethargic and states her chest pain had resolved. She did complain of dizziness and shortness of breath. She was bolused another 1L NS . BP improved to 80's/50's. Given her change in mental status and hypotensive nature, Dr. Willis was called and accepted the patient for transfuse back to ICU. General: ill appearing, mild distress due to pain, appears at stated age Derm: warm, dry Head: atraumatic, normocephalic, symmetric Eyes: EOMI, no lid lag, anicteric sclera Mouth: no lip lesion, dry membranes moist Cardiovascular: S1S2 irregular, no murmur Lungs: Decreased BS bilateral, no rhonchi, no rales , no accessory muscle use Ext: no gross muscle atrophy, 2+ LE edema, no contractures Abd: Warren catheter in place. Obese. Non tender to palpation. Back: Midline surgical scar intact. Foul smelling.Serousanguinous discharge. Neuro: Moving all 4 extremities independently, sensation intact to touch BL LE Psych: Alert, oriented, appropriate affect #Sepsis, unknown source of infection. #Metabolic acidosis #Acute kidney injury #Hyponatremia Patient meets sepsis criteria with tachypnea, hypotension, leukocytosis. Maintain MAP > 65. Started on Vancomycin and Cefepime for broad spectrum antibiotic coverage. UA/Urine culture and blood culture ordered. Lactic acid ordered. ABG ordered. CT AP ordered to rule out intraabdominal pathology. C.difficile ordered. Telemetry monitoring. Transfer to ICU. #Hyperkalemia K 6.1 Hyperkalemia likely due to severe acidosis. Digoxin level 1.1. 1L NS bolus, IV insulin/D50, Albuterol and sodium bicarbonate ordered. Telemetry monitoring. Repeat CMP ordered. #Acute blood loss anemia, anticipated outcome of surgery No indication for transfusion at this time Follow CBC Coags normal #Atrial fibrillation Xarelto resumed on 02/26 Cardizem with parameters DC Digoxin and Atenolol due to hypotension Suspect that suboptimal rate control is related to pain. #T10 to pelvis decompression with fusion #Post-op pain Management per Orthopedic surgery. Gabapentin, Valium, Flexeril. Decadron. Continue with Dilaudid and Percocet PRN. Patient has no stairs and planning on going home, she has nearby help from family but lives alone. PT and OT consulted. PMR consulted. Plans for inpatient rehab when medically stable. #Aborted sudden cardiac Cardiology on board. Echocardiogram shows EF 35-40% with moderate MR. Telemetry monitoring. #Systolic CHF Echo shows EF 35-40% with severe pulmonary HTN, moderate MR. Patient will need ischemic workup. Patient would benefit from ACEi and Aldactone prior to discharge. Cardiology on board. #Right diaphragmatic paralysis Aggressive pulmonary hygiene Pulmonology on board #HLD Statin #HTN Cardizem with parameters DC Digoxin and Atenolol due to hypotension Monitor vitals and adjust medication if necessary. Objective - Vital Signs Vital signs: Vital Signs Temp 98.7 F 03/07/22 08:00 Pulse 62 03/07/22 14:00 Resp 20 03/07/22 14:00 BP 107/56 03/07/22 08:00 Pulse Ox 98 03/07/22 08:00 FiO2 40 02/25/22 11:10 Intake & Output 03/06/22 03/07/22 03/07/22 18:59 06:59 18:59 Intake Total 318 810 0 Output Total 1500 700 Balance -1182 110 0 Intake: IV 20 Invasive Line 1 20 Oral 298 810 0 Output: Urine 1500 700 Uretheral (Warren) 750 Other: Voiding Method Indwelling Catheter Indwelling Catheter Indwelling Catheter # Bowel Movements 1 ABP, PAP, CO, CI - Last Documented Arterial Blood Pressure 97/74 - Labs CBC & Chem 7: 03/07/22 08:33 03/07/22 08:33 Labs: Abnormal Lab Results - Last 24 Hours (Table) 03/06/22 03/06/22 03/07/22 Range/Units 16:56 20:27 06:17 WBC (3.8-10.6) k/uL RBC (3.80-5.40) m/uL Hgb (11.4-16.0) gm/dL Hct (34.0-46.0) % MCHC (31.0-37.0) g/dL RDW (11.5-15.5) % ABG pCO2 (35-45) mmHg ABG HCO3 (21-25) mmol/L ABG O2 Saturation (94-97) % Sodium (137-145) mmol/L Potassium (3.5-5.1) mmol/L Chloride (98-107) mmol/L Carbon Dioxide (22-30) mmol/L BUN (7-17) mg/dL Creatinine (0.52-1.04) mg/dL Glucose (74-99) mg/dL POC Glucose (mg/dL) 271 H 288 H 267 H (70-110) mg/dL Calcium (8.4-10.2) mg/dL Magnesium (1.6-2.3) mg/dL 03/07/22 03/07/22 03/07/22 Range/Units 07:41 08:33 08:33 WBC 42.3 H (3.8-10.6) k/uL RBC 2.38 L (3.80-5.40) m/uL Hgb 7.0 L (11.4-16.0) gm/dL Hct 23.3 L (34.0-46.0) % MCHC 30.0 L (31.0-37.0) g/dL RDW 17.8 H (11.5-15.5) % ABG pCO2 (35-45) mmHg ABG HCO3 (21-25) mmol/L ABG O2 Saturation (94-97) % Sodium 127 L (137-145) mmol/L Potassium 6.1 H* (3.5-5.1) mmol/L Chloride 97 L (98-107) mmol/L Carbon Dioxide 14 L (22-30) mmol/L BUN 43 H (7-17) mg/dL Creatinine 1.12 H (0.52-1.04) mg/dL Glucose 228 H (74-99) mg/dL POC Glucose (mg/dL) 239 H (70-110) mg/dL Calcium 7.1 L (8.4-10.2) mg/dL Magnesium 2.5 H (1.6-2.3) mg/dL 03/07/22 03/07/22 03/07/22 Range/Units 12:06 14:52 15:05 WBC (3.8-10.6) k/uL RBC (3.80-5.40) m/uL Hgb (11.4-16.0) gm/dL Hct (34.0-46.0) % MCHC (31.0-37.0) g/dL RDW (11.5-15.5) % ABG pCO2 28 L (35-45) mmHg ABG HCO3 18 L (21-25) mmol/L ABG O2 Saturation 99.3 H (94-97) % Sodium (137-145) mmol/L Potassium (3.5-5.1) mmol/L Chloride (98-107) mmol/L Carbon Dioxide (22-30) mmol/L BUN (7-17) mg/dL Creatinine (0.52-1.04) mg/dL Glucose (74-99) mg/dL POC Glucose (mg/dL) 193 H 205 H (70-110) mg/dL Calcium (8.4-10.2) mg/dL Magnesium (1.6-2.3) mg/dL
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
[2022-03-07] MEDS ORDERED: LIDOCAINE 2% (PF) 20 MG/ML 5 ML VIAL ONE ×2 (15:56→17:44)
[2022-03-07 15:59] LABS: Appearance,Urine Turbid (Clear); Bacteria,Urine Many /hpf; Bilirubin,Urine Negative (Negative); Blood,Urine Moderate (Negative); Color,Urine Yellow; Glucose,Urine (UA) Negative (Negative); Ketones,Urine Trace (Negative); Leukocyte Esterase,Urine Large (Negative); Mucus,Urine Moderate /hpf; Nitrite,Urine Negative (Negative); Protein,Urine 1+ (Negative); RBC,Urine 29 /hpf (0-5); Specific Gravity,Urine 1.021 (1.001-1.035); Squamous Epithelial Cell,Urine 3 /hpf (0-4); Urobilinogen,Urine <2.0 mg/dL (<2.0); WBC,Urine 103 /hpf (0-5)
[2022-03-07 16:28] LABS: ABG Base Excess -5.1 mmol/L; ABG HCO3 19 mmol/L (21-25); ABG PCO2 30 mmHg (35-45); ABG PH 7.42 (7.35-7.45); ABG PO2 124 mmHg (83-108); ABG TCO2 20 mmol/L (19-24)
[2022-03-07 16:29] LABS: Allen Test Performed? no
[2022-03-07] MEDS ORDERED: NOREPINEPHRINE 4 MG in SODIUM CHLORIDE 0.9% 250 ML IV SCH (16:30)
--- NOTE | 2022-03-07 16:31 | P.PN ---
Subjective Progress Note Date: 03/07/22 Is evaluation of 02/25/2022, the patient is being seen for a follow-up in the intensive care unit. The patient is post laminectomy and fusion/decompression of the spine and this was done on multiple levels. The patient overnight was kept on a mechanical ventilator. This morning, the patient is on propofol which is running at 35 mcg/kg/m. The patient is well sedated and the patient is quite sick sinus with a mechanical ventilator. The patient is requiring no pressors. The patient on normal saline in the at the rate of 50 mL an hour. The patient is on a mechanical ventilator on assist control mode at the rate of 18, tidal volume of 450, FiO2 of 40% with a PEEP of 5. The blood gas from today showed a pH of 7.41 with a pCO2 of 35 and pO2 of 138. Chest x-ray shows smaller lung volumes, some mild elevation of the right hemidiaphragm. ET tube is sitting just at the level of the aortic knob. No evidence of any pneumothorax. No airspace disease or consolidations. The patient also had a CT angiogram that showed no evidence of any pulmonary embolism. That showed atelectatic change in lung bases and various up other lung segments. No effusion. No lung collapse. CAT scan of the lumbosacral spine was also completed. The surgical one-sided dry clean and intact. The Hemovac output is bloody and its minimal at this point in time. The patient is afebrile. The patient is in atrial fibrillation. Rate is controlled. The patient is receiving Dilaudid for pain control.Blood work from today shows a white cell count of 14.7 with a hemoglobin of 10.1 and a platelet count of 232. The patient also has a sodium level of 135, potassium level of 4.4, chloride is 106 with a bicarb of 23 and a BUN of 15 and a creatinine of 0.5. On 02/26/2022, the patient is extubated and the patient is currently on room air oxygen. Pulse ox is around 91%. Chest x-rays showing a small left-sided pleural effusion, atelectatic change in the right lung base. The patient is able to move lower extremities. She has some limited numbness in her fingers the first and second finger and left upper extremity. Otherwise, she is hemodynamically stable. She remained nature fibrillation. She was started on Cardizem drip which is about 5 mg an hour for rate control and this was started yesterday. Her heart rate is under better control. The patient is also on beta blockers and the patient is on atenolol 100 mg by mouth on a daily basis. Pain is under adequate control. She is requiring Dilaudid 1 mg every 3 hours and 0.5 mg every 2 hours on an as-needed basis. She is also receiving Percocet 10/325 mg every 6 hours. She is currently also on IV fluids in the form of normal saline at the rate of 100 mL an hour. She remains on Decadron. Surgical 1 site is clean. The Hemovac has drained approximately 50 mL overnight and the output is minimal as such. No other significant events. No chest pain. No shortness of breath. White second visit 17 with a hemoglobin of 8.7. As such there is a some drop in hemoglobin. BUN is at 20 creatinine of 0.6 and a sodium level is at 135. She is using the incentive spirometer. She is pulling approximately 3000. Reevaluated today on 02/27/22, patient remains in the ICU, patient is doing fairly well. She is on room air, she is in atrial fibrillation, she is relatively asymptomatic. patient has IV fluid at 50 mL per hour, she is off all the different drips otherwise. WBC count is 17.9 hemoglobin is 8.7 and electrolytes are normal BUN is 20 creatinine 0.55. Chest x-ray from 02/26 is basically unremarkable.patient denies any shortness of breath, no cough, no wheezing, no chest pain, no further episodes of nausea or vomiting. Reevaluated today on 02/28/22, patient remains in the ICU as an overflow, she is on room air, not in any distress, but she does have lower extremities weakness and she seems to be generally weak. Continues to have a right triple-lumen catheter in the cervical region, and I'm recommending that we transition to a midline, and discontinue that triple-lumen catheter. Patient denies any shortness of breath, no cough, no wheezing, no major issues overnight. Basic metabolic profile this morning is relatively unremarkable. Reevaluated today on 03/01/22, patient remains as an overflow in the ICU. Doing fairly well, apparently she was up in the chair yesterday at bedside for most of the day. Pain seems to be fairly well controlled. Continues to have weakness, patient is being followed closely by orthopedics. Patient is doing well with incentive spirometry, remains on Xarelto for DVT prophylaxis. She is also on GI prophylaxis. The patient is seen today 03/07/2022 in follow-up in the intensive care unit. Earlier today she became quite obtunded. Hypotensive. Dyspneic. She was transferred back into the intensive care unit. Chest x-ray reveals borderline heart size. Patchy bibasilar opacities probably atelectasis similar to previous exam. She is maintaining good O2 saturations in the upper 90s on 4 L/m per nasal cannula. She is bradycardic. Atrial flutter. Ultrasound of the kidneys and bladder revealed no evidence of hydronephrosis on the right. There is a cystic distended area centrally upper and mid pole left kidney measuring up to 8.3 cm. Suspect parapelvic cyst which has enlarged. Indwelling Warren catheter in place. White count 42.3. Hemoglobin 7.0. Platelets 356. Sodium 127. Potassium 6.1. Chloride 97. Bicarb 14. BUN 43. Creatinine 1.14. Glucose 228. Troponin negative 1. Urinalysis reveals moderate blood. Large leukocytosis esterase HIDA BBC's and many bacteria. She's been initiated on cefepime. She has received 3 L of fluid resuscitation thus far. She was given 1 amp of sodium bicarb. Hyperkalemia was corrected. Follow-up labs are pen ding. Follow-up ABGs are pending. Objective - Vital Signs Vital signs: Vital Signs Temp 98.7 F 03/07/22 08:00 Pulse 62 03/07/22 14:00 Resp 20 03/07/22 14:00 BP 107/56 03/07/22 08:00 Pulse Ox 98 03/07/22 08:00 FiO2 40 02/25/22 11:10 Intake & Output 03/06/22 03/07/22 03/07/22 18:59 06:59 18:59 Intake Total 318 810 0 Output Total 1500 700 Balance -1182 110 0 Intake: IV 20 Invasive Line 1 20 Oral 298 810 0 Output: Urine 1500 700 Uretheral (Warren) 750 Other: Voiding Method Indwelling Catheter Indwelling Catheter Indwelling Catheter # Bowel Movements 1 ABP, PAP, CO, CI - Last Documented Arterial Blood Pressure 97/74 - Exam GENERAL EXAM: Awake, arousable, morbidly obese 71-year-old female, on 4 L nasal cannula, fairly comfortable in no apparent distress. HEAD: Normocephalic. EYES: Normal reaction of pupils, equal size. NOSE: Clear with pink turbinates. THROAT: No erythema or exudates. NECK: No masses, no JVD. CHEST: No chest wall deformity. LUNGS: Equal air entry with echoes in the posterior bases. CVS: S1 and S2 normal with no audible murmur, irregular rhythm. ABDOMEN: Obese, unable to appreciate organomegaly, normal bowel sounds, no guarding or rigidity. SPINE: Surgical scar intact. Serosanguineous drainage noted. SKIN: No rashes CENTRAL NERVOUS SYSTEM: No focal deficits, tone is normal in all 4 extremities. EXTREMITIES: There is no peripheral edema. No clubbing, no cyanosis. Peripheral pulses are intact. - Labs CBC & Chem 7: 03/07/22 08:33 03/07/22 08:33 Labs: Abnormal Lab Results - Last 24 Hours (Table) 03/06/22 03/06/22 03/07/22 Range/Units 16:56 20:27 06:17 WBC (3.8-10.6) k/uL RBC (3.80-5.40) m/uL Hgb (11.4-16.0) gm/dL Hct (34.0-46.0) % MCHC (31.0-37.0) g/dL RDW (11.5-15.5) % ABG pCO2 (35-45) mmHg ABG HCO3 (21-25) mmol/L ABG O2 Saturation (94-97) % Sodium (137-145) mmol/L Potassium (3.5-5.1) mmol/L Chloride (98-107) mmol/L Carbon Dioxide (22-30) mmol/L BUN (7-17) mg/dL Creatinine (0.52-1.04) mg/dL Glucose (74-99) mg/dL POC Glucose (mg/dL) 271 H 288 H 267 H (70-110) mg/dL Calcium (8.4-10.2) mg/dL Magnesium (1.6-2.3) mg/dL Urine Appearance (Clear) Urine Protein (Negative) Urine Ketones (Negative) Urine Blood (Negative) Ur Leukocyte Esterase (Negative) Urine RBC (0-5) /hpf Urine WBC (0-5) /hpf Urine Bacteria (None) /hpf Urine Mucus (None) /hpf 03/07/22 03/07/22 03/07/22 Range/Units 07:41 08:33 08:33 WBC 42.3 H (3.8-10.6) k/uL RBC 2.38 L (3.80-5.40) m/uL Hgb 7.0 L (11.4-16.0) gm/dL Hct 23.3 L (34.0-46.0) % MCHC 30.0 L (31.0-37.0) g/dL RDW 17.8 H (11.5-15.5) % ABG pCO2 (35-45) mmHg ABG HCO3 (21-25) mmol/L ABG O2 Saturation (94-97) % Sodium 127 L (137-145) mmol/L Potassium 6.1 H* (3.5-5.1) mmol/L Chloride 97 L (98-107) mmol/L Carbon Dioxide 14 L (22-30) mmol/L BUN 43 H (7-17) mg/dL Creatinine 1.12 H (0.52-1.04) mg/dL Glucose 228 H (74-99) mg/dL POC Glucose (mg/dL) 239 H (70-110) mg/dL Calcium 7.1 L (8.4-10.2) mg/dL Magnesium 2.5 H (1.6-2.3) mg/dL Urine Appearance (Clear) Urine Protein (Negative) Urine Ketones (Negative) Urine Blood (Negative) Ur Leukocyte Esterase (Negative) Urine RBC (0-5) /hpf Urine WBC (0-5) /hpf Urine Bacteria (None) /hpf Urine Mucus (None) /hpf 03/07/22 03/07/22 03/07/22 Range/Units 12:06 13:45 14:52 WBC (3.8-10.6) k/uL RBC (3.80-5.40) m/uL Hgb (11.4-16.0) gm/dL Hct (34.0-46.0) % MCHC (31.0-37.0) g/dL RDW (11.5-15.5) % ABG pCO2 28 L (35-45) mmHg ABG HCO3 18 L (21-25) mmol/L ABG O2 Saturation 99.3 H (94-97) % Sodium (137-145) mmol/L Potassium (3.5-5.1) mmol/L Chloride (98-107) mmol/L Carbon Dioxide (22-30) mmol/L BUN (7-17) mg/dL Creatinine (0.52-1.04) mg/dL Glucose (74-99) mg/dL POC Glucose (mg/dL) 193 H (70-110) mg/dL Calcium (8.4-10.2) mg/dL Magnesium (1.6-2.3) mg/dL Urine Appearance Turbid H (Clear) Urine Protein 1+ H (Negative) Urine Ketones Trace H (Negative) Urine Blood Moderate H (Negative) Ur Leukocyte Esterase Large H (Negative) Urine RBC 29 H (0-5) /hpf Urine WBC 103 H (0-5) /hpf Urine Bacteria Many H (None) /hpf Urine Mucus Moderate H (None) /hpf 03/07/22 Range/Units 15:05 WBC (3.8-10.6) k/uL RBC (3.80-5.40) m/uL Hgb (11.4-16.0) gm/dL Hct (34.0-46.0) % MCHC (31.0-37.0) g/dL RDW (11.5-15.5) % ABG pCO2 (35-45) mmHg ABG HCO3 (21-25) mmol/L ABG O2 Saturation (94-97) % Sodium (137-145) mmol/L Potassium (3.5-5.1) mmol/L Chloride (98-107) mmol/L Carbon Dioxide (22-30) mmol/L BUN (7-17) mg/dL Creatinine (0.52-1.04) mg/dL Glucose (74-99) mg/dL POC Glucose (mg/dL) 205 H (70-110) mg/dL Calcium (8.4-10.2) mg/dL Magnesium (1.6-2.3) mg/dL Urine Appearance (Clear) Urine Protein (Negative) Urine Ketones (Negative) Urine Blood (Negative) Ur Leukocyte Esterase (Negative) Urine RBC (0-5) /hpf Urine WBC (0-5) /hpf Urine Bacteria (None) /hpf Urine Mucus (None) /hpf Assessment and Plan Assessment: Acute sepsis with hypotension suspect secondary to urinary tract infection, some serous drainage from the spinal surgery currently on vancomycin and cefepime Acute renal failure Hyperkalemia Hyponatremia Leukocytosis Lumbar decompression/fusion postoperative day #11 Cardiac arrest, brief pulseless electrical activity encountered in the operating room exact etiology is not clear. Non-anion gap metabolic acidosis, resolved Acute hypoxic/hypercapnic respiratory failure secondary to cardiac arrest/pulseless electrical activity, patient was extubated yesterday by Dr. Pulliam. Morbid obesity. BMI of 41.1 History of right hemidiaphragm paralysis History of right-sided breast cancer Chronic atrial fibrillation/flutter Dyslipidemia Benign essential hypertension Plan: The patient was seen and evaluated Chest x-ray, labs and medications reviewed Currently on cefepime and vancomycin Obtain blood culture urine culture Continue fluid resuscitation, may require norepinephrine Obtain arterial blood gases, follow up labs are pending Titrate the FiO2 as tolerated Anticoagulated with Xarelto Close monitoring here back in the intensive care unit Triple-lumen catheter and arterial lines placed We will continue to follow and make further recommendations based on her clinical status I have personally seen and examined the patient, performed the documentation and the assessment and plan as written. Number of minutes spent on the visit: 15.
[2022-03-07] MEDS: CEFEPIME 2 GM in SODIUM CHLORIDE 0.9% 100 ML IVPB SCH (16:37)
[2022-03-07 16:38] LABS: Anisocytosis Slight; Hypochromasia Moderate; MCH 31.7 pg (25.0-35.0); MCHC 34.3 g/dL (31.0-37.0); Mean Platelet Volume 10.1; Platelet Count 262 k/uL (150-450); Poikilocytosis Slight; RBC 1.69 m/uL (3.80-5.40); RDW 17.7 % (11.5-15.5)
[2022-03-07 16:46] LABS: HCT 15.6 % (34.0-46.0); HGB 5.4 gm/dL (11.4-16.0)
[2022-03-07 16:50] LABS: MCV 92.4 fL (80.0-100.0)
[2022-03-07 17:01] LABS: Potassium 4.9 mmol/L (3.5-5.1); Total Bilirubin 1.4 mg/dL (0.2-1.3); Total Protein 3.6 g/dL (6.3-8.2)
[2022-03-07 17:11] LABS: Neutrophils % (M) 89 %; Nucleated Red Blood Cells 3 /100 WBC (0-0); Total Cells Counted 200
[2022-03-07 17:12] LABS: Anisocytosis (M) Present; Lymphocytes # (M) 2.68 k/uL (1.0-4.8); Monocytes # (M) 1.92 k/uL (0-1.0); Neutrophils # (M) 34.09 k/uL (1.3-7.7); Poikilocytosis (M) Present; Polychromasia Present; WBC 38.3 k/uL (3.8-10.6)
[2022-03-07] MEDS ORDERED: SODIUM CHLORIDE 0.9% 1,000 ML IV SCH (17:15)
[2022-03-07 18:02] LABS: Calcium 6.3 mg/dL (8.4-10.2)
--- NOTE | 2022-03-07 18:13 | CT ---
EXAMINATION TYPE: CT abdomen pelvis wo con DATE OF EXAM: 03/07/2022 COMPARISON: 01/05/2017 HISTORY: diarrhea, septic CT DLP: 2235.2 mGycm Automated exposure control for dose reduction was used. Images obtained from the diaphragm to the floor the pelvis with no contrast. There is some patchy atelectasis at the lung bases and more on the right side. Heart is top normal in size. There is coronary artery calcification. There is small right pleural effusion. Liver and splee n are intact. There are clips from cholecystectomy. No evidence of pancreatic mass. The bile ducts ar e not dilated. There is a distended gas and fluid-filled stomach. There are some mildly dilated proximal small bowel that measures up to 4.2 cm. Distal small bowel is not dilated. Large ball pattern is fairly normal. There is left-sided 4 cm renal parapelvic cyst. No retroperitoneal adenopathy. Ureters are not dilate d. Urinary bladder is almost empty. There is Warren catheter in the urinary bladder. There is subcutan eous edema around the abdomen. No ascites. No free air. There is some presacral edema. There is a large mass on the right anterior chest wall that measures 10 cm. The right breast appears to show diffuse edema. There is multilevel posterior fusion surgery in the thoracic and lumbar spine. There is osteopenia. There is metal artifact from the rods and screws. The bony pelvis appears intac t. IMPRESSION: Large right anterior intermediate density chest mass. Right breast edema. Clinical correlation is nee ded. Mass appears new compared to chest CT scan of 02/25/2022. This could be hematoma. Right breast e kerri appears new. Dilated proximal small bowel and distended stomach suggestive of proximal partial mechanical small gabo wel obstruction. Ileus is also possible. Transition point not seen. Subcutaneous edema around the abdomen..
[2022-03-07] MEDS: VANCOMYCIN 2,000 MG in SODIUM CHLORIDE 0.9% 500 ML 500 ML IVPB SCH (18:21)
[2022-03-07] MEDS ORDERED: CALCIUM GLUCONATE IN NACL 2 GM in SALINE 1 100ML.BAG IVPB ONE (18:30)
[2022-03-07] MEDS: RIVAROXABAN 20 MG TAB PO SCH (18:32)
[2022-03-07] MEDS: DEXTROSE 5% IN WATER 1,000 ML with SODIUM BICARB (1 MEQ/ML) 150 ML IV SCH (18:46)
[2022-03-07 18:49] LABS: Glucose,Whole Blood 194 mg/dL (70-110)
[2022-03-07 20:26] LABS: Glucose,Whole Blood 258 mg/dL (70-110)
--- NOTE | 2022-03-07 21:45 | PCN ---
PROCEDURE NOTE PROCEDURE: Right radial art line. PREOPERATIVE DIAGNOSES: 1. Hypotension. 2. Sepsis. POSTOPERATIVE DIAGNOSES: 1. Hypotension. 2. Sepsis. CO-SURGEON: Dr. Harris. DESCRIPTION OF PROCEDURE: There was informed consent and universal timeout. We used the right radial artery. There was no immediate complication. There was good blood return and waveform. The catheter was sutured in place. Sterile dressing was applied by the nurse. The patient tolerated the procedure well. MMODL / IJN: [id number] /
[2022-03-07 22:10] LABS: Anisocytosis Slight; Basophils # (A) 0.2 k/uL (0-0.2); Basophils % (A) 0 %; Eosinophils % (A) 0 %; HCT 20.3 % (34.0-46.0); Hypochromasia Slight; Lymphocytes # (A) 1.7 k/uL (1.0-4.8); Lymphocytes % (A) 4 %; MCH 29.3 pg (25.0-35.0); MCV 88.8 fL (80.0-100.0); Mean Platelet Volume 10.9; Monocytes # (A) 2.5 k/uL (0-1.0); Monocytes % (A) 6 %; Neutrophils # (A) 36.7 k/uL (1.3-7.7); Neutrophils % (A) 89 %; Platelet Count 263 k/uL (150-450); Poikilocytosis Slight; RBC 2.29 m/uL (3.80-5.40); RDW 17.5 % (11.5-15.5); WBC 41.3 k/uL (3.8-10.6)
--- NOTE | 2022-03-07 22:12 | PCN ---
PROCEDURE NOTE PROCEDURE: Right femoral triple-lumen catheter. PREOPERATIVE DIAGNOSES: 1. Sepsis. 2. Hypotension. 3. Administration of pressors. POSTOPERATIVE DIAGNOSES: 1. Sepsis. 2. Hypotension. 3. Administration of pressors. CO-SURGEON: Dr. Harris. There was informed consent and universal timeout. We used the right femoral site. There was good blood return from all 3 ports. TRIPLE LUMEN CATHETER PLACEMENT: Indication: Hemodynamic monitoring/Intravenous access. A time-out was completed verifying correct patient, procedure, site, positioning, and implant(s) or special equipment if applicable. The patient was placed in a dependent position appropriate for triple lumen catheter placement based on the vein to be cannulated. The patient's right shoulder or right neck or right groin was prepped and draped in sterile fashion. 1% Lidocaine was used to anesthetize the surrounding skin area. A triple lumen 9F Cordis catheter was introduced into the right subclavian or internal jugular or common femoral vein using Seldinger technique. The catheter was threaded smoothly over the guide wire and appropriate blood return was obtained. Each lumen of the catheter was evacuated of air and flushed with sterile saline. The catheter was then sutured in place to the skin and a sterile dressing applied. Perfusion to the extremity distal to the point of catheter insertion was checked and found to be adequate. The catheter was sutured in place. A sterile dressing was applied by the nurse. There was no immediate complication. The patient tolerated the procedure well. No need for a chest x-ray has been used to right femoral site. MMODL / IJN: [id number] /
[2022-03-07 22:27] LABS: Potassium 5.1 mmol/L (3.5-5.1)
[2022-03-07 22:34] LABS: HGB 6.7 gm/dL (11.4-16.0)
[2022-03-08] MEDS: DEXAMETHASONE SOD PHOSPHATE 4 MG/ML 1 ML VIAL IVP SCH ×3 (00:02→15:10)
[2022-03-08] MEDS: ACETAMINOPHEN TAB 325 MG TAB PO SCH ×4 (00:03→17:30)
[2022-03-08] MEDS ORDERED: NOREPINEPHRINE 8 MG in SODIUM CHLORIDE 0.9% 250 ML IV SCH (01:00)
[2022-03-08] MEDS: CEFEPIME 2 GM in SODIUM CHLORIDE 0.9% 100 ML IVPB SCH ×2 (01:59→12:55)
--- NOTE | 2022-03-08 03:59 | P.PN ---
Progress Note - Text Progress Note Date: 03/08/22 Notified by the RN of the patient's persistently elevated lactic acid levels. Patient's chart was reviewed. She was subsequently seen at the bedside. The patient was transferred to the medical ICU yesterday for sepsis of unclear origin and was started on IV antibiotics broad spectrum.CT abdomen and pelvis was ordered which revealed suspected chest hematoma as well as possible small bowel obstruction versus ileus. The case including the computed tomography scan was reportedly discussed by the daytime providers with primary orthopedic surgery team. General surgery was also consulted and was notified of the consult including the elevated lactate levels. At time of my evaluation, the patient complained of upper back pain as well as diffuse abdominal discomfort. General: In moderate distress from pain, appears stated age, morbidly obese HEENT: NC/AT, anicteric sclerae, moist conjunctiva, no lid-lag, PERRLA Cardiovascular: S1/S2 wnl, no murmurs, rubs, or gallops Lungs: Clear to auscultation, normal respiratory effort, no accessory muscle use Abdominal: Soft, diffuse mild to moderate tenderness, non-distended, no guarding or rigidity Skin: Warm, dry Extremities: No edema or contractures Psychiatric: Alert and oriented to person, place and time, appropriate affect Neuro: No gross focal deficits noted, moving all extremities spontaneously Assessment/plan Anemia, suspect secondary to surgical loss as well as possible chest hematoma -Better than expected response after first unit of PRBCs; hemoglobin increased from 5.4-6.7 -Additional 1 unit PRBCs ordered -Primary orthopedic surgery team and Gen. surgery were again made aware of the patient's computed tomography scan findings including hematoma Persistent lactic acidosis -Possibly due to ongoing septic shock requiring IV pressors versus bowel obstruction -General surgery notified regarding the patient's elevated lactate levels with concern for possible bowel obstruction. They plan to see the patient in the morning. -Continue with IV pressors and IV fluids at this
[2022-03-08 04:24] LABS: Anisocytosis Slight; HCT 24.2 % (34.0-46.0); Hypochromasia Slight; MCH 29.6 pg (25.0-35.0); MCHC 34.3 g/dL (31.0-37.0); MCV 86.2 fL (80.0-100.0); Platelet Count 275 k/uL (150-450); Poikilocytosis Slight; RBC 2.81 m/uL (3.80-5.40); RDW 17.9 % (11.5-15.5); WBC 37.7 k/uL (3.8-10.6)
[2022-03-08 04:40] LABS: Albumin 2.1 g/dL (3.5-5.0); Calcium 6.8 mg/dL (8.4-10.2); Potassium 5.5 mmol/L (3.5-5.1); Total Bilirubin 2.3 mg/dL (0.2-1.3); Total Protein 3.8 g/dL (6.3-8.2)
[2022-03-08 04:42] LABS: HGB 8.3 gm/dL (11.4-16.0)
--- NOTE | 2022-03-08 04:58 | XR ---
EXAMINATION TYPE: XR chest 1V portable DATE OF EXAM: 03/08/2022 COMPARISON: Yesterday HISTORY: Short of breath TECHNIQUE: Single view FINDINGS: There is some elevation of the right diaphragm. There is linear density right lung base. Th ere are spinal rods and screws stabilizing the thoracolumbar junction. There skin rito. Left lung is clear. IMPRESSION: There is some atelectasis at the right lung base and elevated right diaphragm which has p rogressed compared to yesterday. No heart failure.
[2022-03-08] MEDS: LEVOTHYROXINE 88 MCG TAB PO SCH (06:06)
[2022-03-08 06:24] LABS: Glucose,Whole Blood 193 mg/dL (70-110)
[2022-03-08] MEDS: INSULIN ASPART (NovoLOG) 100 UNIT/ML VIAL SQ SCH ×4 (06:37→21:53)
[2022-03-08] MEDS ORDERED: CALCIUM GLUCONATE IN NACL 1 GM in SALINE 1 100ML.BAG IVPB ONE ×2 (06:44→15:00)
[2022-03-08] MEDS ORDERED: INSULIN REGULAR 100 UNIT/ML VIAL (IV) IV ONE (06:44)
[2022-03-08] MEDS ORDERED: DEXTROSE 50% SYRINGE 50 ML IVP STA (06:44)
[2022-03-08] MEDS ORDERED: SODIUM BICARB 8.4% 50 ML SYR (1 MEQ/ML) IV STA (06:44)
[2022-03-08] MEDS ORDERED: SODIUM ZIRCONIUM CYCLOSILICATE 10 GM PACKET PO ONE (06:44)
[2022-03-08] MEDS ORDERED: AMIODARONE 360 MG in DEXTROSE 5% IN WATER 200 ML IV ONE ×2 (07:13)
[2022-03-08] MEDS ORDERED: DEXTROSE 5% IN WATER 100 ML with AMIODARONE 150 MG IV ONE (07:13)
--- NOTE | 2022-03-08 07:39 | P.PN ---
Subjective Progress Note Date: 03/08/22 Principal diagnosis: Typical atrial flutter Patient is pleasant 71-year-old female with history of persistent typical atrial flutter, paroxysmal atrial fibrillation, hypertension, hyperlipidemia. She follows with Dr. Leger. We are consulted for A flutter. She presented for trudy akive back surgery. She underwent back surgery with a long procedure. She was noted to be in atrial flutter throughout the case. After that she became bradycardic and she did have an episode appeared to be brief of severe bradycardia/cardiac arrest and she resuscitated. 03/08/2022 The patient was seen and evaluated this morning. She seems to be hypotensive now require norepinephrine. She remains in atrial flutter with overall controlled heart rate. She is on Cardizem. I'm going to stop the Cardizem and start the patient on amiodarone was bolus and drip giving the low blood pressure requiring vasopressors. Beside that continued oral anticoagulation. Follow-up with the patient. Objective - Vital Signs Vital signs: Vital Signs Temp 97.0 F L 03/08/22 04:00 Pulse 65 03/08/22 07:00 Resp 22 03/08/22 07:00 BP 114/55 03/08/22 02:08 Pulse Ox 100 03/08/22 07:00 FiO2 40 02/25/22 11:10 Intake & Output 03/07/22 03/08/22 03/08/22 18:59 06:59 18:59 Intake Total 391.284 9104.350 75 Output Total 155 325 5 Balance 989.387 7366.350 70 Weight 137.8 kg Intake: IV 150 900 75 Dextrose 5% in Water 1, 150 900 75 000 ml @ 75 mls/hr IV . [id number] MEHUL with Sodium Bicarb (1 Meq/ml) 150 ml Rx#:[id number] Intake, IV Titration 6.787 310.350 Amount Norepinephrine 4 mg In 6.787 192.286 Sodium Chloride 0.9% 250 ml @ 0.05 MCG/KG/MIN 27. 146 mls/hr IV .[id number] MEHUL Rx#:[id number] Norepinephrine 8 mg In 118.064 Sodium Chloride 0.9% 250 ml @ 0.03 MCG/KG/MIN 8. 272 mls/hr IV .Q24H MEHUL Rx#:[id number] Oral 200 Blood Product 0 597 Rc Pheresis 2 As3 Unit 310 [id number] Rc Pheresis As-3 Unit 0 287 [id number] Other 150 Rc Pheresis As-3 Unit 150 [id number] Output: Urine 155 325 5 Other: Voiding Method Indwelling Catheter Indwelling Catheter ABP, PAP, CO, CI - Last Documented Arterial Blood Pressure 104/51 - Constitutional General appearance: Present: no acute distress - Respiratory Respiratory: bilateral: diminished - Cardiovascular Rhythm: irregularly irregular - Labs CBC & Chem 7: 03/08/22 04:14 03/08/22 04:14 Labs: Abnormal Lab Results - Last 24 Hours (Table) 03/07/22 03/07/22 03/07/22 Range/Units 07:41 08:33 08:33 WBC 42.3 H (3.8-10.6) k/uL RBC 2.38 L (3.80-5.40) m/uL Hgb 7.0 L (11.4-16.0) gm/dL Hct 23.3 L (34.0-46.0) % MCHC 30.0 L (31.0-37.0) g/dL RDW 17.8 H (11.5-15.5) % Neutrophils # (1.3-7.7) k/uL Neutrophils # (Manual) (1.3-7.7) k/uL Monocytes # (0-1.0) k/uL Monocytes # (Manual) (0-1.0) k/uL Nucleated RBCs (0-0) /100 WBC ABG pCO2 (35-45) mmHg ABG pO2 (83-108) mmHg ABG HCO3 (21-25) mmol/L ABG O2 Saturation (94-97) % Sodium 127 L (137-145) mmol/L Potassium 6.1 H* (3.5-5.1) mmol/L Chloride 97 L (98-107) mmol/L Carbon Dioxide 14 L (22-30) mmol/L BUN 43 H (7-17) mg/dL Creatinine 1.12 H (0.52-1.04) mg/dL Glucose 228 H (74-99) mg/dL POC Glucose (mg/dL) 239 H (70-110) mg/dL Plasma Lactic Acid Fernando (0.7-2.0) mmol/L Calcium 7.1 L (8.4-10.2) mg/dL Magnesium 2.5 H (1.6-2.3) mg/dL Total Bilirubin (0.2-1.3) mg/dL AST (14-36) U/L ALT (4-34) U/L Creatine Kinase (30-135) U/L Total Protein (6.3-8.2) g/dL Albumin (3.5-5.0) g/dL Urine Appearance (Clear) Urine Protein (Negative) Urine Ketones (Negative) Urine Blood (Negative) Ur Leukocyte Esterase (Negative) Urine RBC (0-5) /hpf Urine WBC (0-5) /hpf Urine Bacteria (None) /hpf Urine Mucus (None) /hpf Crossmatch 03/07/22 03/07/22 03/07/22 Range/Units 12:06 13:45 14:52 WBC (3.8-10.6) k/uL RBC (3.80-5.40) m/uL Hgb (11.4-16.0) gm/dL Hct (34.0-46.0) % MCHC (31.0-37.0) g/dL RDW (11.5-15.5) % Neutrophils # (1.3-7.7) k/uL Neutrophils # (Manual) (1.3-7.7) k/uL Monocytes # (0-1.0) k/uL Monocytes # (Manual) (0-1.0) k/uL Nucleated RBCs (0-0) /100 WBC ABG pCO2 28 L (35-45) mmHg ABG pO2 (83-108) mmHg ABG HCO3 18 L (21-25) mmol/L ABG O2 Saturation 99.3 H (94-97) % Sodium (137-145) mmol/L Potassium (3.5-5.1) mmol/L Chloride (98-107) mmol/L Carbon Dioxide (22-30) mmol/L BUN (7-17) mg/dL Creatinine (0.52-1.04) mg/dL Glucose (74-99) mg/dL POC Glucose (mg/dL) 193 H (70-110) mg/dL Plasma Lactic Acid Fernando (0.7-2.0) mmol/L Calcium (8.4-10.2) mg/dL Magnesium (1.6-2.3) mg/dL Total Bilirubin (0.2-1.3) mg/dL AST (14-36) U/L ALT (4-34) U/L Creatine Kinase (30-135) U/L Total Protein (6.3-8.2) g/dL Albumin (3.5-5.0) g/dL Urine Appearance Turbid H (Clear) Urine Protein 1+ H (Negative) Urine Ketones Trace H (Negative) Urine Blood Moderate H (Negative) Ur Leukocyte Esterase Large H (Negative) Urine RBC 29 H (0-5) /hpf Urine WBC 103 H (0-5) /hpf Urine Bacteria Many H (None) /hpf Urine Mucus Moderate H (None) /hpf Crossmatch 03/07/22 03/07/22 03/07/22 Range/Units 15:05 16:19 16:19 WBC 38.3 H (3.8-10.6) k/uL RBC 1.69 L (3.80-5.40) m/uL Hgb 5.4 L* D (11.4-16.0) gm/dL Hct 15.6 L* (34.0-46.0) % MCHC (31.0-37.0) g/dL RDW 17.7 H (11.5-15.5) % Neutrophils # (1.3-7.7) k/uL Neutrophils # (Manual) 34.09 H (1.3-7.7) k/uL Monocytes # (0-1.0) k/uL Monocytes # (Manual) 1.92 H (0-1.0) k/uL Nucleated RBCs 3 H (0-0) /100 WBC ABG pCO2 (35-45) mmHg ABG pO2 (83-108) mmHg ABG HCO3 (21-25) mmol/L ABG O2 Saturation (94-97) % Sodium (137-145) mmol/L Potassium (3.5-5.1) mmol/L Chloride (98-107) mmol/L Carbon Dioxide (22-30) mmol/L BUN (7-17) mg/dL Creatinine (0.52-1.04) mg/dL Glucose (74-99) mg/dL POC Glucose (mg/dL) 205 H (70-110) mg/dL Plasma Lactic Acid Fernando 5.9 H* (0.7-2.0) mmol/L Calcium (8.4-10.2) mg/dL Magnesium (1.6-2.3) mg/dL Total Bilirubin (0.2-1.3) mg/dL AST (14-36) U/L ALT (4-34) U/L Creatine Kinase (30-135) U/L Total Protein (6.3-8.2) g/dL Albumin (3.5-5.0) g/dL Urine Appearance (Clear) Urine Protein (Negative) Urine Ketones (Negative) Urine Blood (Negative) Ur Leukocyte Esterase (Negative) Urine RBC (0-5) /hpf Urine WBC (0-5) /hpf Urine Bacteria (None) /hpf Urine Mucus (None) /hpf Crossmatch 03/07/22 03/07/22 03/07/22 Range/Units 16:19 16:26 16:56 WBC (3.8-10.6) k/uL RBC (3.80-5.40) m/uL Hgb (11.4-16.0) gm/dL Hct (34.0-46.0) % MCHC (31.0-37.0) g/dL RDW (11.5-15.5) % Neutrophils # (1.3-7.7) k/uL Neutrophils # (Manual) (1.3-7.7) k/uL Monocytes # (0-1.0) k/uL Monocytes # (Manual) (0-1.0) k/uL Nucleated RBCs (0-0) /100 WBC ABG pCO2 30 L (35-45) mmHg ABG pO2 124 H (83-108) mmHg ABG HCO3 19 L (21-25) mmol/L ABG O2 Saturation 100.0 H (94-97) % Sodium 126 L (137-145) mmol/L Potassium (3.5-5.1) mmol/L Chloride (98-107) mmol/L Carbon Dioxide 20 L (22-30) mmol/L BUN 49 H (7-17) mg/dL Creatinine 1.32 H (0.52-1.04) mg/dL Glucose 183 H (74-99) mg/dL POC Glucose (mg/dL) (70-110) mg/dL Plasma Lactic Acid Fernando (0.7-2.0) mmol/L Calcium 6.3 L* (8.4-10.2) mg/dL Magnesium (1.6-2.3) mg/dL Total Bilirubin 1.4 H (0.2-1.3) mg/dL AST 2295 H (14-36) U/L ALT 1562 H (4-34) U/L Creatine Kinase 244 H (30-135) U/L Total Protein 3.6 L (6.3-8.2) g/dL Albumin 2.0 L (3.5-5.0) g/dL Urine Appearance (Clear) Urine Protein (Negative) Urine Ketones (Negative) Urine Blood (Negative) Ur Leukocyte Esterase (Negative) Urine RBC (0-5) /hpf Urine WBC (0-5) /hpf Urine Bacteria (None) /hpf Urine Mucus (None) /hpf Crossmatch See Detail 03/07/22 03/07/22 03/07/22 Range/Units 18:48 20:25 20:26 WBC (3.8-10.6) k/uL RBC (3.80-5.40) m/uL Hgb (11.4-16.0) gm/dL Hct (34.0-46.0) % MCHC (31.0-37.0) g/dL RDW (11.5-15.5) % Neutrophils # (1.3-7.7) k/uL Neutrophils # (Manual) (1.3-7.7) k/uL Monocytes # (0-1.0) k/uL Monocytes # (Manual) (0-1.0) k/uL Nucleated RBCs (0-0) /100 WBC ABG pCO2 (35-45) mmHg ABG pO2 (83-108) mmHg ABG HCO3 (21-25) mmol/L ABG O2 Saturation (94-97) % Sodium (137-145) mmol/L Potassium (3.5-5.1) mmol/L Chloride (98-107) mmol/L Carbon Dioxide (22-30) mmol/L BUN (7-17) mg/dL Creatinine (0.52-1.04) mg/dL Glucose (74-99) mg/dL POC Glucose (mg/dL) 194 H 258 H (70-110) mg/dL Plasma Lactic Acid Fernando 6.5 H* (0.7-2.0) mmol/L Calcium (8.4-10.2) mg/dL Magnesium (1.6-2.3) mg/dL Total Bilirubin (0.2-1.3) mg/dL AST (14-36) U/L ALT (4-34) U/L Creatine Kinase (30-135) U/L Total Protein (6.3-8.2) g/dL Albumin (3.5-5.0) g/dL Urine Appearance (Clear) Urine Protein (Negative) Urine Ketones (Negative) Urine Blood (Negative) Ur Leukocyte Esterase (Negative) Urine RBC (0-5) /hpf Urine WBC (0-5) /hpf Urine Bacteria (None) /hpf Urine Mucus (None) /hpf Crossmatch 03/07/22 03/07/22 03/07/22 Range/Units 22:00 22:00 23:05 WBC 41.3 H (3.8-10.6) k/uL RBC 2.29 L (3.80-5.40) m/uL Hgb 6.7 L* (11.4-16.0) gm/dL Hct 20.3 L (34.0-46.0) % MCHC (31.0-37.0) g/dL RDW 17.5 H (11.5-15.5) % Neutrophils # 36.7 H (1.3-7.7) k/uL Neutrophils # (Manual) (1.3-7.7) k/uL Monocytes # 2.5 H (0-1.0) k/uL Monocytes # (Manual) (0-1.0) k/uL Nucleated RBCs (0-0) /100 WBC ABG pCO2 (35-45) mmHg ABG pO2 (83-108) mmHg ABG HCO3 (21-25) mmol/L ABG O2 Saturation (94-97) % Sodium 126 L (137-145) mmol/L Potassium (3.5-5.1) mmol/L Chloride (98-107) mmol/L Carbon Dioxide 20 L (22-30) mmol/L BUN 54 H (7-17) mg/dL Creatinine 1.28 H (0.52-1.04) mg/dL Glucose 223 H (74-99) mg/dL POC Glucose (mg/dL) (70-110) mg/dL Plasma Lactic Acid Fernando 5.8 H* (0.7-2.0) mmol/L Calcium 7.0 L (8.4-10.2) mg/dL Magnesium (1.6-2.3) mg/dL Total Bilirubin (0.2-1.3) mg/dL AST (14-36) U/L ALT (4-34) U/L Creatine Kinase (30-135) U/L Total Protein (6.3-8.2) g/dL Albumin (3.5-5.0) g/dL Urine Appearance (Clear) Urine Protein (Negative) Urine Ketones (Negative) Urine Blood (Negative) Ur Leukocyte Esterase (Negative) Urine RBC (0-5) /hpf Urine WBC (0-5) /hpf Urine Bacteria (None) /hpf Urine Mucus (None) /hpf Crossmatch 03/08/22 03/08/22 03/08/22 Range/Units 01:45 04:14 04:14 WBC 37.7 H (3.8-10.6) k/uL RBC 2.81 L (3.80-5.40) m/uL Hgb 8.3 L D (11.4-16.0) gm/dL Hct 24.2 L (34.0-46.0) % MCHC (31.0-37.0) g/dL RDW 17.9 H (11.5-15.5) % Neutrophils # (1.3-7.7) k/uL Neutrophils # (Manual) (1.3-7.7) k/uL Monocytes # (0-1.0) k/uL Monocytes # (Manual) (0-1.0) k/uL Nucleated RBCs (0-0) /100 WBC ABG pCO2 (35-45) mmHg ABG pO2 (83-108) mmHg ABG HCO3 (21-25) mmol/L ABG O2 Saturation (94-97) % Sodium 126 L (137-145) mmol/L Potassium 5.5 H (3.5-5.1) mmol/L Chloride (98-107) mmol/L Carbon Dioxide 18 L (22-30) mmol/L BUN 60 H (7-17) mg/dL Creatinine 1.42 H (0.52-1.04) mg/dL Glucose 210 H (74-99) mg/dL POC Glucose (mg/dL) (70-110) mg/dL Plasma Lactic Acid Fernando 5.7 H* (0.7-2.0) mmol/L Calcium 6.8 L (8.4-10.2) mg/dL Magnesium (1.6-2.3) mg/dL Total Bilirubin 2.3 H (0.2-1.3) mg/dL AST 2140 H (14-36) U/L ALT 1613 H (4-34) U/L Creatine Kinase (30-135) U/L Total Protein 3.8 L (6.3-8.2) g/dL Albumin 2.1 L (3.5-5.0) g/dL Urine Appearance (Clear) Urine Protein (Negative) Urine Ketones (Negative) Urine Blood (Negative) Ur Leukocyte Esterase (Negative) Urine RBC (0-5) /hpf Urine WBC (0-5) /hpf Urine Bacteria (None) /hpf Urine Mucus (None) /hpf Crossmatch 03/08/22 Range/Units 06:23 WBC (3.8-10.6) k/uL RBC (3.80-5.40) m/uL Hgb (11.4-16.0) gm/dL Hct (34.0-46.0) % MCHC (31.0-37.0) g/dL RDW (11.5-15.5) % Neutrophils # (1.3-7.7) k/uL Neutrophils # (Manual) (1.3-7.7) k/uL Monocytes # (0-1.0) k/uL Monocytes # (Manual) (0-1.0) k/uL Nucleated RBCs (0-0) /100 WBC ABG pCO2 (35-45) mmHg ABG pO2 (83-108) mmHg ABG HCO3 (21-25) mmol/L ABG O2 Saturation (94-97) % Sodium (137-145) mmol/L Potassium (3.5-5.1) mmol/L Chloride (98-107) mmol/L Carbon Dioxide (22-30) mmol/L BUN (7-17) mg/dL Creatinine (0.52-1.04) mg/dL Glucose (74-99) mg/dL POC Glucose (mg/dL) 193 H (70-110) mg/dL Plasma Lactic Acid Fernando (0.7-2.0) mmol/L Calcium (8.4-10.2) mg/dL Magnesium (1.6-2.3) mg/dL Total Bilirubin (0.2-1.3) mg/dL AST (14-36) U/L ALT (4-34) U/L Creatine Kinase (30-135) U/L Total Protein (6.3-8.2) g/dL Albumin (3.5-5.0) g/dL Urine Appearance (Clear) Urine Protein (Negative) Urine Ketones (Negative) Urine Blood (Negative) Ur Leukocyte Esterase (Negative) Urine RBC (0-5) /hpf Urine WBC (0-5) /hpf Urine Bacteria (None) /hpf Urine Mucus (None) /hpf Crossmatch Microbiology - Last 24 Hours (Table) 03/07/22 13:45 Urine Culture - Preliminary Urine,Voided Assessment and Plan Assessment: ASSESSMENT Typical Atrial flutter,with severe bradycardic episode and of the 20s to 30s status post brief round of CPR. Appears mainly related to severe metabolic derangements with severe acidosis during surgery. Status post back surgery Paroxysmal atrial fibrillation Hypertension Hyperlipidemia Cardiomyopathy, ischemic vs non-ischemic Hyperkalemia Back pain Acute kidney injury PLAN Patients heart rates are controlled Currently on Xarelto anticoagulation DC Cardizem and start the patient on amiodarone Switch to amiodarone by mouth later Follow-up with the patient
[2022-03-08 07:43] LABS: ABG Base Excess -3.7 mmol/L; ABG HCO3 20 mmol/L (21-25); ABG Oxygen Saturation 99.4 % (94-97); ABG PCO2 27 mmHg (35-45); ABG PH 7.47 (7.35-7.45); ABG PO2 110 mmHg (83-108); ABG TCO2 21 mmol/L (19-24)
[2022-03-08 07:45] LABS: Allen Test Performed? no
[2022-03-08] MEDS ORDERED: LACTATED RINGERS 1,000 ML IV ONE ×2 (07:45)
[2022-03-08] MEDS: GABAPENTIN 300 MG CAP PO SCH ×3 (08:00→21:45)
[2022-03-08] MEDS: DULoxetine HCL 60 MG CAPSULE.DR PO SCH (08:00)
[2022-03-08] MEDS: ATORVASTATIN 10 MG TAB PO SCH (08:00)
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
[2022-03-08 09:31] LABS: % Iron Saturation 14.66 (12.00-45.00)
[2022-03-08] MEDS: NOREPINEPHRINE 32 MG in SODIUM CHLORIDE 0.9% 218 ML IV SCH (09:50)
[2022-03-08] MEDS: ALBUMIN HUMAN 25% 50 ML in EMPTY BAG 1 BAG IVPB SCH ×4 (10:06→18:39)
[2022-03-08] MEDS: DEXTROSE 5% IN WATER 1,000 ML with SODIUM BICARB (1 MEQ/ML) 150 ML IV SCH (10:09)
--- NOTE | 2022-03-08 10:09 | P.GSCN ---
History of Present Illness Consult date: 03/08/22 Reason for Consult: Right breast hematoma, recommendations for evacuation Requesting physician: Thom Alexander History of present illness: This is a 71-year-old female patient who follows with Dr. Crane on an outpati ent basis. She has a previous medical history of A. fib/flutter status post cardioversion and ablation with subsequent diaphragmatic paralysis currently on Xarelto for anticoagulation, hypertension, hyperlipidemia, hypothyroid status post partial thyroidectomy, right breast cancer status post lumpectomy, GERD, and chronic low back pain status post multiple back surgeries. She presented to [facility] on 02/24/2022 for elective T10 to pelvis revision, decompression and posterior lateral interbody fusion. Initially her surgery without a hitch, however at the end of the surgery as rito were being applied for closure the patient lost a pulse, she was quickly closed and turned supine. ACLS protocol was initiated and ROSC achieved. She was transferred to the intensive care unit still intubated and sedated. Eventually she was extubated, she continued to recover without difficulty and was transferred out of the ICU on March 04 with plans for discharge to inpatient rehab on March 06. She did have a fall on March 06. Unfortunately yesterday she began to decompensate with hypotension, lactic acidosis, and leukocytosis. She was transferred back to the intensive care unit. She was resuscitated with 3 L of fluid and initiated on IV antibiotics as well as IV Levophed. In addition she was placed on IV sodium bicarb. A CT of the abdomen and pelvis demonstrated ileus with possible small bowel obstruction as well as right breast edema with hematoma present. Due to the right breast hematoma consultation was placed to Dr. Coulter from cardiothoracic surgery for evacuation recommendations, especially as there are plans to take the patient back to the OR by Dr. Gary ryder for washout of her back as well as exploration and likely dural repairs which would require her to be prone on chest pads. Review of Systems Review of systems was completed and was negative except as noted - Constitutional Reports chronic pain, Reports weakness - Breasts right: swelling (Bruising present to underside of right breast) - Musculoskeletal Reports low back pain Past Medical History Past Medical History: Atrial Fibrillation, Atrial Flutter, Cancer, Chest Pain / Angina, GERD/Reflux, Hyperlipidemia, Hypertension, Osteoarthritis (OA), Thyroid Disorder Additional Past Medical History / Comment(s): Rr breast cancer, hiatal hernia, chronic low back pain. partially paralyzed rt diaphragm, infection rt breast a fter surgery History of Any Multi-Drug Resistant Organisms: None Reported Past Surgical History: Back Surgery, Bladder Surgery, Breast Surgery, Cardiac Ablation, Cholecystectomy, EPS, Heart Catheterization, Hernia Repair, Hysterectomy, Joint Replacement, Orthopedic Surgery Additional Past Surgical History / Comment(s): R breast core bx/needle loc, R breast lumpectomy/axillary node dissection, CHATO, cardioversion, low back surgeries x3 with plate/screws, total R knee x3, R foot multiple surgeries for spur/neuromas, L foot cystectomy, R elbow injury w/ surgery, R wrist ganglion cystectomy, partial thyroidectomy, 4 abdominal hernia repairs, bladder suspension, colonoscopy, loki cataract, laser loki eye surgery 01/31/22 Past Anesthesia/Blood Transfusion Reactions: Previous Problems w/ Anesthesia, Postoperative Nausea & Vomiting (PONV) Additional Past Anesthesia/Blood Transfusion Reaction / Comm: On ventilator for 2 days after cardiac ablation d/t diaphragm paralysis-rt side Past Psychological History: Depression Additional Psychological History / Comment(s): . Smoking Status: Never smoker Past Alcohol Use History: Rare Past Drug Use History: None Reported - Past Family History Father Family Medical History: Cancer Additional Family Medical History / Comment(s): . Mother Family Medical History: Cancer, Deep Vein Thrombosis (DVT) Additional Family Medical History / Comment(s): Skin and breast cancer. Medications and Allergies Home Medications Medication Instructions Recorded Confirmed Type Levothyroxine Sodium [Synthroid] 88 mcg PO QAM 02/19/14 02/20/22 History HYDROcodone/APAP 10-325MG [Peck 1 tab PO Q4H PRN 12/23/18 02/20/22 History 10-325] Atorvastatin [Lipitor] 10 mg PO DAILY #30 tab 04/10/19 02/20/22 Rx atenoloL [Tenormin] 100 mg PO QAM 05/10/20 02/20/22 History Amlodipine Besylate/Valsartan 1 each PO QAM 02/02/22 02/20/22 History [Exforge 5-320 mg Tablet] DULoxetine HCL [Cymbalta] 60 mg PO DAILY 02/02/22 02/20/22 History Rivaroxaban [Xarelto] 20 mg PO HS 02/02/22 02/20/22 History Rosuvastatin Calcium 10 mg PO QAM 02/02/22 02/20/22 History Allergies Allergy/AdvReac Type Severity Reaction Status Date / Time cephalexin monohydrate Allergy Mild Rash/Hives Verified 02/24/22 05:56 [From Keflex] Iodinated Contrast Media Allergy Mild Rash/Hives Verified 02/24/22 05:56 [Iodinated Contrast Media - IV Dye] Sulfa (Sulfonamide Allergy Mild Rash/Hives Verified 02/24/22 05:56 Antibiotics) adhesive tape AdvReac Severe Rash/Hives Uncoded 02/24/22 05:56 Surgical - Exam Vital Signs Temp Pulse Resp BP Pulse Ox 97.7 F 66 16 113/56 96 02/24/22 06:42 02/24/22 06:42 02/24/22 06:42 02/24/22 06:42 02/24/22 06:42 CONSTITUTIONAL: Awake and alert, appears uncomfortable, cooperative, does admit to low back pain EYES: Pupils equal, round, reactive to light, normal ocular movement ENT: Moist mucous membranes without oral lesions present NECK: No masses, no bruits, trachea midline RESPIRATORY: Lungs sounds clear to auscultation bilaterally. Respirations even, nonlabored. Currently on 4 L nasal cannula with oxygen saturation 100%. Strong cough. CARDIOVASCULAR: S1, S2 present. Regular rate and rhythm, controlled atrial flutter on telemetry. Palpable peripheral pulses bilaterally. GASTROINTESTINAL: Abdomen soft, mild tenderness to palpation, nondistended, o bese GENITOURINARY: Warren present draining clear, yellow urine, minimal output INTEGUMENTARY: Skin is warm and pink, bruising present under right breast, surgical incision to her back not assessed NEUROLOGIC: Cranial nerves II through XII intact MUSKULOSKELETAL: Able to move all extremities with some generalized weakness to her lower extremities, strength equal bilaterally PSYCHIATRIC: Alert and oriented to person place and time, appropriate affect, intact judgment and insight Palpable hematoma present to right anterior chest Results - Labs 03/08/22 04:14 03/08/22 04:14 Abnormal Lab Results - Last 24 Hours (Table) 03/07/22 03/07/22 03/07/22 Range/Units 12:06 13:45 14:52 WBC (3.8-10.6) k/uL RBC (3.80-5.40) m/uL Hgb (11.4-16.0) gm/dL Hct (34.0-46.0) % RDW (11.5-15.5) % Neutrophils # (1.3-7.7) k/uL Neutrophils # (Manual) (1.3-7.7) k/uL Monocytes # (0-1.0) k/uL Monocytes # (Manual) (0-1.0) k/uL Nucleated RBCs (0-0) /100 WBC ABG pH (7.35-7.45) ABG pCO2 28 L (35-45) mmHg ABG pO2 (83-108) mmHg ABG HCO3 18 L (21-25) mmol/L ABG O2 Saturation 99.3 H (94-97) % Sodium (137-145) mmol/L Potassium (3.5-5.1) mmol/L Carbon Dioxide (22-30) mmol/L BUN (7-17) mg/dL Creatinine (0.52-1.04) mg/dL Glucose (74-99) mg/dL POC Glucose (mg/dL) 193 H (70-110) mg/dL Plasma Lactic Acid Fernando (0.7-2.0) mmol/L Calcium (8.4-10.2) mg/dL Total Bilirubin (0.2-1.3) mg/dL AST (14-36) U/L ALT (4-34) U/L Creatine Kinase (30-135) U/L Total Protein (6.3-8.2) g/dL Albumin (3.5-5.0) g/dL Urine Appearance Turbid H (Clear) Urine Protein 1+ H (Negative) Urine Ketones Trace H (Negative) Urine Blood Moderate H (Negative) Ur Leukocyte Esterase Large H (Negative) Urine RBC 29 H (0-5) /hpf Urine WBC 103 H (0-5) /hpf Urine Bacteria Many H (None) /hpf Urine Mucus Moderate H (None) /hpf Crossmatch 03/07/22 03/07/22 03/07/22 Range/Units 15:05 16:19 16:19 WBC 38.3 H (3.8-10.6) k/uL RBC 1.69 L (3.80-5.40) m/uL Hgb 5.4 L* D (11.4-16.0) gm/dL Hct 15.6 L* (34.0-46.0) % RDW 17.7 H (11.5-15.5) % Neutrophils # (1.3-7.7) k/uL Neutrophils # (Manual) 34.09 H (1.3-7.7) k/uL Monocytes # (0-1.0) k/uL Monocytes # (Manual) 1.92 H (0-1.0) k/uL Nucleated RBCs 3 H (0-0) /100 WBC ABG pH (7.35-7.45) ABG pCO2 (35-45) mmHg ABG pO2 (83-108) mmHg ABG HCO3 (21-25) mmol/L ABG O2 Saturation (94-97) % Sodium (137-145) mmol/L Potassium (3.5-5.1) mmol/L Carbon Dioxide (22-30) mmol/L BUN (7-17) mg/dL Creatinine (0.52-1.04) mg/dL Glucose (74-99) mg/dL POC Glucose (mg/dL) 205 H (70-110) mg/dL Plasma Lactic Acid Fernando 5.9 H* (0.7-2.0) mmol/L Calcium (8.4-10.2) mg/dL Total Bilirubin (0.2-1.3) mg/dL AST (14-36) U/L ALT (4-34) U/L Creatine Kinase (30-135) U/L Total Protein (6.3-8.2) g/dL Albumin (3.5-5.0) g/dL Urine Appearance (Clear) Urine Protein (Negative) Urine Ketones (Negative) Urine Blood (Negative) Ur Leukocyte Esterase (Negative) Urine RBC (0-5) /hpf Urine WBC (0-5) /hpf Urine Bacteria (None) /hpf Urine Mucus (None) /hpf Crossmatch 03/07/22 03/07/22 03/07/22 Range/Units 16:19 16:26 16:56 WBC (3.8-10.6) k/uL RBC (3.80-5.40) m/uL Hgb (11.4-16.0) gm/dL Hct (34.0-46.0) % RDW (11.5-15.5) % Neutrophils # (1.3-7.7) k/uL Neutrophils # (Manual) (1.3-7.7) k/uL Monocytes # (0-1.0) k/uL Monocytes # (Manual) (0-1.0) k/uL Nucleated RBCs (0-0) /100 WBC ABG pH (7.35-7.45) ABG pCO2 30 L (35-45) mmHg ABG pO2 124 H (83-108) mmHg ABG HCO3 19 L (21-25) mmol/L ABG O2 Saturation 100.0 H (94-97) % Sodium 126 L (137-145) mmol/L Potassium (3.5-5.1) mmol/L Carbon Dioxide 20 L (22-30) mmol/L BUN 49 H (7-17) mg/dL Creatinine 1.32 H (0.52-1.04) mg/dL Glucose 183 H (74-99) mg/dL POC Glucose (mg/dL) (70-110) mg/dL Plasma Lactic Acid Fernando (0.7-2.0) mmol/L Calcium 6.3 L* (8.4-10.2) mg/dL Total Bilirubin 1.4 H (0.2-1.3) mg/dL AST 2295 H (14-36) U/L ALT 1562 H (4-34) U/L Creatine Kinase 244 H (30-135) U/L Total Protein 3.6 L (6.3-8.2) g/dL Albumin 2.0 L (3.5-5.0) g/dL Urine Appearance (Clear) Urine Protein (Negative) Urine Ketones (Negative) Urine Blood (Negative) Ur Leukocyte Esterase (Negative) Urine RBC (0-5) /hpf Urine WBC (0-5) /hpf Urine Bacteria (None) /hpf Urine Mucus (None) /hpf Crossmatch See Detail 03/07/22 03/07/22 03/07/22 Range/Units 18:48 20:25 20:26 WBC (3.8-10.6) k/uL RBC (3.80-5.40) m/uL Hgb (11.4-16.0) gm/dL Hct (34.0-46.0) % RDW (11.5-15.5) % Neutrophils # (1.3-7.7) k/uL Neutrophils # (Manual) (1.3-7.7) k/uL Monocytes # (0-1.0) k/uL Monocytes # (Manual) (0-1.0) k/uL Nucleated RBCs (0-0) /100 WBC ABG pH (7.35-7.45) ABG pCO2 (35-45) mmHg ABG pO2 (83-108) mmHg ABG HCO3 (21-25) mmol/L ABG O2 Saturation (94-97) % Sodium (137-145) mmol/L Potassium (3.5-5.1) mmol/L Carbon Dioxide (22-30) mmol/L BUN (7-17) mg/dL Creatinine (0.52-1.04) mg/dL Glucose (74-99) mg/dL POC Glucose (mg/dL) 194 H 258 H (70-110) mg/dL Plasma Lactic Acid Fernando 6.5 H* (0.7-2.0) mmol/L Calcium (8.4-10.2) mg/dL Total Bilirubin (0.2-1.3) mg/dL AST (14-36) U/L ALT (4-34) U/L Creatine Kinase (30-135) U/L Total Protein (6.3-8.2) g/dL Albumin (3.5-5.0) g/dL Urine Appearance (Clear) Urine Protein (Negative) Urine Ketones (Negative) Urine Blood (Negative) Ur Leukocyte Esterase (Negative) Urine RBC (0-5) /hpf Urine WBC (0-5) /hpf Urine Bacteria (None) /hpf Urine Mucus (None) /hpf Crossmatch 03/07/22 03/07/22 03/07/22 Range/Units 22:00 22:00 23:05 WBC 41.3 H (3.8-10.6) k/uL RBC 2.29 L (3.80-5.40) m/uL Hgb 6.7 L* (11.4-16.0) gm/dL Hct 20.3 L (34.0-46.0) % RDW 17.5 H (11.5-15.5) % Neutrophils # 36.7 H (1.3-7.7) k/uL Neutrophils # (Manual) (1.3-7.7) k/uL Monocytes # 2.5 H (0-1.0) k/uL Monocytes # (Manual) (0-1.0) k/uL Nucleated RBCs (0-0) /100 WBC ABG pH (7.35-7.45) ABG pCO2 (35-45) mmHg ABG pO2 (83-108) mmHg ABG HCO3 (21-25) mmol/L ABG O2 Saturation (94-97) % Sodium 126 L (137-145) mmol/L Potassium (3.5-5.1) mmol/L Carbon Dioxide 20 L (22-30) mmol/L BUN 54 H (7-17) mg/dL Creatinine 1.28 H (0.52-1.04) mg/dL Glucose 223 H (74-99) mg/dL POC Glucose (mg/dL) (70-110) mg/dL Plasma Lactic Acid Fernando 5.8 H* (0.7-2.0) mmol/L Calcium 7.0 L (8.4-10.2) mg/dL Total Bilirubin (0.2-1.3) mg/dL AST (14-36) U/L ALT (4-34) U/L Creatine Kinase (30-135) U/L Total Protein (6.3-8.2) g/dL Albumin (3.5-5.0) g/dL Urine Appearance (Clear) Urine Protein (Negative) Urine Ketones (Negative) Urine Blood (Negative) Ur Leukocyte Esterase (Negative) Urine RBC (0-5) /hpf Urine WBC (0-5) /hpf Urine Bacteria (None) /hpf Urine Mucus (None) /hpf Crossmatch 03/08/22 03/08/22 03/08/22 Range/Units 01:45 04:14 04:14 WBC 37.7 H (3.8-10.6) k/uL RBC 2.81 L (3.80-5.40) m/uL Hgb 8.3 L D (11.4-16.0) gm/dL Hct 24.2 L (34.0-46.0) % RDW 17.9 H (11.5-15.5) % Neutrophils # (1.3-7.7) k/uL Neutrophils # (Manual) (1.3-7.7) k/uL Monocytes # (0-1.0) k/uL Monocytes # (Manual) (0-1.0) k/uL Nucleated RBCs (0-0) /100 WBC ABG pH (7.35-7.45) ABG pCO2 (35-45) mmHg ABG pO2 (83-108) mmHg ABG HCO3 (21-25) mmol/L ABG O2 Saturation (94-97) % Sodium 126 L (137-145) mmol/L Potassium 5.5 H (3.5-5.1) mmol/L Carbon Dioxide 18 L (22-30) mmol/L BUN 60 H (7-17) mg/dL Creatinine 1.42 H (0.52-1.04) mg/dL Glucose 210 H (74-99) mg/dL POC Glucose (mg/dL) (70-110) mg/dL Plasma Lactic Acid Fernando 5.7 H* (0.7-2.0) mmol/L Calcium 6.8 L (8.4-10.2) mg/dL Total Bilirubin 2.3 H (0.2-1.3) mg/dL AST 2140 H (14-36) U/L ALT 1613 H (4-34) U/L Creatine Kinase (30-135) U/L Total Protein 3.8 L (6.3-8.2) g/dL Albumin 2.1 L (3.5-5.0) g/dL Urine Appearance (Clear) Urine Protein (Negative) Urine Ketones (Negative) Urine Blood (Negative) Ur Leukocyte Esterase (Negative) Urine RBC (0-5) /hpf Urine WBC (0-5) /hpf Urine Bacteria (None) /hpf Urine Mucus (None) /hpf Crossmatch 03/08/22 03/08/22 Range/Units 06:23 07:41 WBC (3.8-10.6) k/uL RBC (3.80-5.40) m/uL Hgb (11.4-16.0) gm/dL Hct (34.0-46.0) % RDW (11.5-15.5) % Neutrophils # (1.3-7.7) k/uL Neutrophils # (Manual) (1.3-7.7) k/uL Monocytes # (0-1.0) k/uL Monocytes # (Manual) (0-1.0) k/uL Nucleated RBCs (0-0) /100 WBC ABG pH 7.47 H (7.35-7.45) ABG pCO2 27 L (35-45) mmHg ABG pO2 110 H (83-108) mmHg ABG HCO3 20 L (21-25) mmol/L ABG O2 Saturation 99.4 H (94-97) % Sodium (137-145) mmol/L Potassium (3.5-5.1) mmol/L Carbon Dioxide (22-30) mmol/L BUN (7-17) mg/dL Creatinine (0.52-1.04) mg/dL Glucose (74-99) mg/dL POC Glucose (mg/dL) 193 H (70-110) mg/dL Plasma Lactic Acid Fernando (0.7-2.0) mmol/L Calcium (8.4-10.2) mg/dL Total Bilirubin (0.2-1.3) mg/dL AST (14-36) U/L ALT (4-34) U/L Creatine Kinase (30-135) U/L Total Protein (6.3-8.2) g/dL Albumin (3.5-5.0) g/dL Urine Appearance (Clear) Urine Protein (Negative) Urine Ketones (Negative) Urine Blood (Negative) Ur Leukocyte Esterase (Negative) Urine RBC (0-5) /hpf Urine WBC (0-5) /hpf Urine Bacteria (None) /hpf Urine Mucus (None) /hpf Crossmatch Microbiology - Last 24 Hours (Table) 03/07/22 13:45 Urine Culture - Preliminary Urine,Voided Diabetes panel 03/07/22 03/07/22 03/08/22 Range/Units 16:19 22:00 04:14 Sodium 126 L 126 L 126 L (137-145) mmol/L Potassium 4.9 5.1 5.5 H (3.5-5.1) mmol/L Chloride 100 101 99 (98-107) mmol/L Carbon Dioxide 20 L 20 L 18 L (22-30) mmol/L BUN 49 H 54 H 60 H (7-17) mg/dL Creatinine 1.32 H 1.28 H 1.42 H (0.52-1.04) mg/dL Glucose 183 H 223 H 210 H (74-99) mg/dL Calcium 6.3 L* 7.0 L 6.8 L (8.4-10.2) mg/dL AST 2295 H 2140 H (14-36) U/L ALT 1562 H 1613 H (4-34) U/L Alkaline Phosphatase 57 76 (38-126) U/L Total Protein 3.6 L 3.8 L (6.3-8.2) g/dL Albumin 2.0 L 2.1 L (3.5-5.0) g/dL Calcium panel 03/07/22 03/07/22 03/08/22 Range/Units 16:19 22:00 04:14 Calcium 6.3 L* 7.0 L 6.8 L (8.4-10.2) mg/dL Albumin 2.0 L 2.1 L (3.5-5.0) g/dL Pituitary panel 03/07/22 03/07/22 03/08/22 Range/Units 16:19 22:00 04:14 Sodium 126 L 126 L 126 L (137-145) mmol/L Potassium 4.9 5.1 5.5 H (3.5-5.1) mmol/L Chloride 100 101 99 (98-107) mmol/L Carbon Dioxide 20 L 20 L 18 L (22-30) mmol/L BUN 49 H 54 H 60 H (7-17) mg/dL Creatinine 1.32 H 1.28 H 1.42 H (0.52-1.04) mg/dL Glucose 183 H 223 H 210 H (74-99) mg/dL Calcium 6.3 L* 7.0 L 6.8 L (8.4-10.2) mg/dL Adrenal panel 03/07/22 03/07/22 03/08/22 Range/Units 16:19 22:00 04:14 Sodium 126 L 126 L 126 L (137-145) mmol/L Potassium 4.9 5.1 5.5 H (3.5-5.1) mmol/L Chloride 100 101 99 (98-107) mmol/L Carbon Dioxide 20 L 20 L 18 L (22-30) mmol/L BUN 49 H 54 H 60 H (7-17) mg/dL Creatinine 1.32 H 1.28 H 1.42 H (0.52-1.04) mg/dL Glucose 183 H 223 H 210 H (74-99) mg/dL Calcium 6.3 L* 7.0 L 6.8 L (8.4-10.2) mg/dL Total Bilirubin 1.4 H 2.3 H (0.2-1.3) mg/dL AST 2295 H 2140 H (14-36) U/L ALT 1562 H 1613 H (4-34) U/L Alkaline Phosphatase 57 76 (38-126) U/L Total Protein 3.6 L 3.8 L (6.3-8.2) g/dL Albumin 2.0 L 2.1 L (3.5-5.0) g/dL - Imaging Chest x-ray: report reviewed, image reviewed CT scan - abdomen: report reviewed, image reviewed Assessment and Plan Assessment: 1. Chronic low back pain with radiculopathy symptoms, status post elective T10 to pelvis revision, decompression and posterior lateral interbody fusion 2. Cardiac arrest at the end of surgery with ROSC after ACLS protocol 3. Hypotension requiring vasopressor use 4. Lactic acidosis 5. Leukocytosis, sepsis 6. Ileus, possible small bowel obstruction 7. Right breast hematoma 8. Acute kidney injury 9. History of a. fib/flutter status post cardioversion and ablation with subsequent diaphragmatic paralysis currently on Xarelto for anticoagulation, last dose 03/06 at 17:30 10. History of hypertension 11. History of hyperlipidemia, treated 12. Hypothyroid status post partial thyroidectomy 13. History of right breast cancer status post lumpectomy 14. Morbid obesity 15. GERD 16. Multiple previous back surgeries Plan: This case was discussed in detail this morning with Dr. Coulter by internal medicine regarding findings on CT scan. The patient was seen and examined at the bedside with Dr. Coulter. Chart/diagnostics were reviewed. There is no indication for surgical evacuation of right breast hematoma. In fact proning patient during surgery will provide for compression of hematoma which would be beneficial. From our standpoint there is no reason to delay surgery due to hematoma. Anticoagulation management per cardiology and surgery for re- initiation. Continue current medical course per window shade ring coverer, cardiology, surgery, internal medicine. Thank you Dr. Alexander for this consult. Please call Dr. Coulter with any further questions. I have personally seen and examined the patient, performed the documentation and the assessment and plan as written. Number of minutes spent on the visit: 30. DWIGHT Salcido
--- NOTE | 2022-03-08 10:31 | P.PN ---
Subjective Progress Note Date: 03/08/22 Is evaluation of 02/25/2022, the patient is being seen for a follow-up in the intensive care unit. The patient is post laminectomy and fusion/decompression of the spine and this was done on multiple levels. The patient overnight was kept on a mechanical ventilator. This morning, the patient is on propofol which is running at 35 mcg/kg/m. The patient is well sedated and the patient is quite sick sinus with a mechanical ventilator. The patient is requiring no pressors. The patient on normal saline in the at the rate of 50 mL an hour. The patient is on a mechanical ventilator on assist control mode at the rate of 18, tidal volume of 450, FiO2 of 40% with a PEEP of 5. The blood gas from today showed a pH of 7.41 with a pCO2 of 35 and pO2 of 138. Chest x-ray shows smaller lung volumes, some mild elevation of the right hemidiaphragm. ET tube is sitting just at the level of the aortic knob. No evidence of any pneumothorax. No airspace disease or consolidations. The patient also had a CT angiogram that showed no evidence of any pulmonary embolism. That showed atelectatic change in lung bases and various up other lung segments. No effusion. No lung collapse. CAT scan of the lumbosacral spine was also completed. The surgical one-sided dry clean and intact. The Hemovac output is bloody and its minimal at this point in time. The patient is afebrile. The patient is in atrial fibrillation. Rate is controlled. The patient is receiving Dilaudid for pain control.Blood work from today shows a white cell count of 14.7 with a hemoglobin of 10.1 and a platelet count of 232. The patient also has a sodium level of 135, potassium level of 4.4, chloride is 106 with a bicarb of 23 and a BUN of 15 and a creatinine of 0.5. On 02/26/2022, the patient is extubated and the patient is currently on room air oxygen. Pulse ox is around 91%. Chest x-rays showing a small left-sided pleural effusion, atelectatic change in the right lung base. The patient is able to move lower extremities. She has some limited numbness in her fingers the first and second finger and left upper extremity. Otherwise, she is hemodynamically stable. She remained nature fibrillation. She was started on Cardizem drip which is about 5 mg an hour for rate control and this was started yesterday. Her heart rate is under better control. The patient is also on beta blockers and the patient is on atenolol 100 mg by mouth on a daily basis. Pain is under adequate control. She is requiring Dilaudid 1 mg every 3 hours and 0.5 mg every 2 hours on an as-needed basis. She is also receiving Percocet 10/325 mg every 6 hours. She is currently also on IV fluids in the form of normal saline at the rate of 100 mL an hour. She remains on Decadron. Surgical 1 site is clean. The Hemovac has drained approximately 50 mL overnight and the output is minimal as such. No other significant events. No chest pain. No shortness of breath. White second visit 17 with a hemoglobin of 8.7. As such there is a some drop in hemoglobin. BUN is at 20 creatinine of 0.6 and a sodium level is at 135. She is using the incentive spirometer. She is pulling approximately 3000. Reevaluated today on 02/27/22, patient remains in the ICU, patient is doing fairly well. She is on room air, she is in atrial fibrillation, she is relatively asymptomatic. patient has IV fluid at 50 mL per hour, she is off all the different drips otherwise. WBC count is 17.9 hemoglobin is 8.7 and electrolytes are normal BUN is 20 creatinine 0.55. Chest x-ray from 02/26 is basically unremarkable.patient denies any shortness of breath, no cough, no wheezing, no chest pain, no further episodes of nausea or vomiting. Reevaluated today on 02/28/22, patient remains in the ICU as an overflow, she is on room air, not in any distress, but she does have lower extremities weakness and she seems to be generally weak. Continues to have a right triple-lumen catheter in the cervical region, and I'm recommending that we transition to a midline, and discontinue that triple-lumen catheter. Patient denies any shortness of breath, no cough, no wheezing, no major issues overnight. Basic metabolic profile this morning is relatively unremarkable. Reevaluated today on 03/01/22, patient remains as an overflow in the ICU. Doing fairly well, apparently she was up in the chair yesterday at bedside for most of the day. Pain seems to be fairly well controlled. Continues to have weakness, patient is being followed closely by orthopedics. Patient is doing well with incentive spirometry, remains on Xarelto for DVT prophylaxis. She is also on GI prophylaxis. The patient is seen today 03/07/2022 in follow-up in the intensive care unit. Earlier today she became quite obtunded. Hypotensive. Dyspneic. She was transferred back into the intensive care unit. Chest x-ray reveals borderline heart size. Patchy bibasilar opacities probably atelectasis similar to previous exam. She is maintaining good O2 saturations in the upper 90s on 4 L/m per nasal cannula. She is bradycardic. Atrial flutter. Ultrasound of the kidneys and bladder revealed no evidence of hydronephrosis on the right. There is a cystic distended area centrally upper and mid pole left kidney measuring up to 8.3 cm. Suspect parapelvic cyst which has enlarged. Indwelling Warren catheter in place. White count 42.3. Hemoglobin 7.0. Platelets 356. Sodium 127. Potassium 6.1. Chloride 97. Bicarb 14. BUN 43. Creatinine 1.14. Glucose 228. Troponin negative 1. Urinalysis reveals moderate blood. Large leukocytosis esterase HIDA BBC's and many bacteria. She's been initiated on cefepime. She has received 3 L of fluid resuscitation thus far. She was given 1 amp of sodium bicarb. Hyperkalemia was corrected. Follow-up labs are pen ding. Follow-up ABGs are pending. The patient is seen today 03/08/2022 in follow-up in the intensive care unit. Postoperative day #12 of a [id number] decompression and fusion. She is currently resting fairly comfortably in bed. Awake and alert. She is maintaining O2 saturations in the 90s on 3 L/m per nasal cannula. She is D5 W with 3 A of sodium bicarb at 75 ML's per hour. She is requiring norepinephrine at 24 mg/m. Arterial blood gases reveal a P O2 of 110, pCO2 27, pH is 7.47. She is noted to have a right chest wall hematoma. She did fall on 03/06/2022. There is significant ecchymosis and bruising.She has required 2 units of packed red blood cells. Current hemoglobin 8.3. She had dropped as low as 5.4 last evening. White count 37.7. Hemoglobin 8.3. Platelets 275. Sodium 126. Potassium 5.5. Chloride 99. Bicarb 18. BUN 60. Creatinine 1.42. Glucose 210. Lactic acid 5.7. AST 2140. ALT 1613. urine cultures pending. Blood cultures are pending. Chest x-ray shows atelectasis at the right lung base with elevated right diaphragm. No heart failure. she remains on vancomycin and cefepime. She is being considered for return to the OR for exploration, washout and likely dural repairs due to her fall event. Objective - Vital Signs Vital signs: Vital Signs Temp 97.0 F L 03/08/22 04:00 Pulse 65 03/08/22 07:00 Resp 22 03/08/22 07:00 BP 114/55 03/08/22 02:08 Pulse Ox 100 03/08/22 07:00 FiO2 40 02/25/22 11:10 Intake & Output 03/07/22 03/08/22 03/08/22 18:59 06:59 18:59 Intake Total 456.715 7312.350 75 Output Total 155 325 5 Balance 208.365 3638.350 70 Weight 137.8 kg Intake: IV 150 900 75 Dextrose 5% in Water 1, 150 900 75 000 ml @ 75 mls/hr IV . [id number] MEHUL with Sodium Bicarb (1 Meq/ml) 150 ml Rx#:[id number] Intake, IV Titration 6.787 310.350 Amount Norepinephrine 4 mg In 6.787 192.286 Sodium Chloride 0.9% 250 ml @ 0.05 MCG/KG/MIN 27. 146 mls/hr IV .[id number] MEHUL Rx#:[id number] Norepinephrine 8 mg In 118.064 Sodium Chloride 0.9% 250 ml @ 0.03 MCG/KG/MIN 8. 272 mls/hr IV .Q24H MEHUL Rx#:[id number] Oral 200 Blood Product 0 597 Rc Pheresis 2 As3 Unit 310 [id number] Rc Pheresis As-3 Unit 0 287 [id number] Other 150 Rc Pheresis As-3 Unit 150 [id number] Output: Urine 155 325 5 Other: Voiding Method Indwelling Catheter Indwelling Catheter ABP, PAP, CO, CI - Last Documented Arterial Blood Pressure 104/51 - Exam GENERAL EXAM: Awake, arousable, morbidly obese 71-year-old female, on 3 L nasal cannula, fairly comfortable in no apparent distress. HEAD: Normocephalic. EYES: Normal reaction of pupils, equal size. NOSE: Clear with pink turbinates. THROAT: No erythema or exudates. NECK: No masses, no JVD. CHEST: Large hematoma and edema of the right breast LUNGS: Equal air entry with crackles in the posterior bases. Diminished right base. CVS: S1 and S2 normal with no audible murmur, irregular rhythm. ABDOMEN: Obese, unable to appreciate organomegaly, normal bowel sounds, no guarding or rigidity. SPINE: Surgical dressing intact. Serosanguineous drainage noted. SKIN: No rashes CENTRAL NERVOUS SYSTEM: No focal deficits, tone is normal in all 4 extremities. EXTREMITIES: There is 1+ peripheral edema. No clubbing, no cyanosis. Peripheral pulses are intact. - Labs CBC & Chem 7: 03/08/22 04:14 03/08/22 04:14 Labs: Abnormal Lab Results - Last 24 Hours (Table) 03/07/22 03/07/22 03/07/22 Range/Units 12:06 13:45 14:52 WBC (3.8-10.6) k/uL RBC (3.80-5.40) m/uL Hgb (11.4-16.0) gm/dL Hct (34.0-46.0) % RDW (11.5-15.5) % Neutrophils # (1.3-7.7) k/uL Neutrophils # (Manual) (1.3-7.7) k/uL Monocytes # (0-1.0) k/uL Monocytes # (Manual) (0-1.0) k/uL Nucleated RBCs (0-0) /100 WBC ABG pH (7.35-7.45) ABG pCO2 28 L (35-45) mmHg ABG pO2 (83-108) mmHg ABG HCO3 18 L (21-25) mmol/L ABG O2 Saturation 99.3 H (94-97) % Sodium (137-145) mmol/L Potassium (3.5-5.1) mmol/L Carbon Dioxide (22-30) mmol/L BUN (7-17) mg/dL Creatinine (0.52-1.04) mg/dL Glucose (74-99) mg/dL POC Glucose (mg/dL) 193 H (70-110) mg/dL Plasma Lactic Acid Fernando (0.7-2.0) mmol/L Calcium (8.4-10.2) mg/dL Iron (50-170) ug/dL Transferrin (204.0-354.0) mg/dL Ferritin (10.0-291.0) ng/mL Total Bilirubin (0.2-1.3) mg/dL AST (14-36) U/L ALT (4-34) U/L Creatine Kinase (30-135) U/L Total Protein (6.3-8.2) g/dL Albumin (3.5-5.0) g/dL Urine Appearance Turbid H (Clear) Urine Protein 1+ H (Negative) Urine Ketones Trace H (Negative) Urine Blood Moderate H (Negative) Ur Leukocyte Esterase Large H (Negative) Urine RBC 29 H (0-5) /hpf Urine WBC 103 H (0-5) /hpf Urine Bacteria Many H (None) /hpf Urine Mucus Moderate H (None) /hpf Crossmatch 03/07/22 03/07/22 03/07/22 Range/Units 15:05 16:19 16:19 WBC 38.3 H (3.8-10.6) k/uL RBC 1.69 L (3.80-5.40) m/uL Hgb 5.4 L* D (11.4-16.0) gm/dL Hct 15.6 L* (34.0-46.0) % RDW 17.7 H (11.5-15.5) % Neutrophils # (1.3-7.7) k/uL Neutrophils # (Manual) 34.09 H (1.3-7.7) k/uL Monocytes # (0-1.0) k/uL Monocytes # (Manual) 1.92 H (0-1.0) k/uL Nucleated RBCs 3 H (0-0) /100 WBC ABG pH (7.35-7.45) ABG pCO2 (35-45) mmHg ABG pO2 (83-108) mmHg ABG HCO3 (21-25) mmol/L ABG O2 Saturation (94-97) % Sodium (137-145) mmol/L Potassium (3.5-5.1) mmol/L Carbon Dioxide (22-30) mmol/L BUN (7-17) mg/dL Creatinine (0.52-1.04) mg/dL Glucose (74-99) mg/dL POC Glucose (mg/dL) 205 H (70-110) mg/dL Plasma Lactic Acid Fernando 5.9 H* (0.7-2.0) mmol/L Calcium (8.4-10.2) mg/dL Iron (50-170) ug/dL Transferrin (204.0-354.0) mg/dL Ferritin (10.0-291.0) ng/mL Total Bilirubin (0.2-1.3) mg/dL AST (14-36) U/L ALT (4-34) U/L Creatine Kinase (30-135) U/L Total Protein (6.3-8.2) g/dL Albumin (3.5-5.0) g/dL Urine Appearance (Clear) Urine Protein (Negative) Urine Ketones (Negative) Urine Blood (Negative) Ur Leukocyte Esterase (Negative) Urine RBC (0-5) /hpf Urine WBC (0-5) /hpf Urine Bacteria (None) /hpf Urine Mucus (None) /hpf Crossmatch 03/07/22 03/07/22 03/07/22 Range/Units 16:19 16:26 16:56 WBC (3.8-10.6) k/uL RBC (3.80-5.40) m/uL Hgb (11.4-16.0) gm/dL Hct (34.0-46.0) % RDW (11.5-15.5) % Neutrophils # (1.3-7.7) k/uL Neutrophils # (Manual) (1.3-7.7) k/uL Monocytes # (0-1.0) k/uL Monocytes # (Manual) (0-1.0) k/uL Nucleated RBCs (0-0) /100 WBC ABG pH (7.35-7.45) ABG pCO2 30 L (35-45) mmHg ABG pO2 124 H (83-108) mmHg ABG HCO3 19 L (21-25) mmol/L ABG O2 Saturation 100.0 H (94-97) % Sodium 126 L (137-145) mmol/L Potassium (3.5-5.1) mmol/L Carbon Dioxide 20 L (22-30) mmol/L BUN 49 H (7-17) mg/dL Creatinine 1.32 H (0.52-1.04) mg/dL Glucose 183 H (74-99) mg/dL POC Glucose (mg/dL) (70-110) mg/dL Plasma Lactic Acid Fernando (0.7-2.0) mmol/L Calcium 6.3 L* (8.4-10.2) mg/dL Iron (50-170) ug/dL Transferrin (204.0-354.0) mg/dL Ferritin (10.0-291.0) ng/mL Total Bilirubin 1.4 H (0.2-1.3) mg/dL AST 2295 H (14-36) U/L ALT 1562 H (4-34) U/L Creatine Kinase 244 H (30-135) U/L Total Protein 3.6 L (6.3-8.2) g/dL Albumin 2.0 L (3.5-5.0) g/dL Urine Appearance (Clear) Urine Protein (Negative) Urine Ketones (Negative) Urine Blood (Negative) Ur Leukocyte Esterase (Negative) Urine RBC (0-5) /hpf Urine WBC (0-5) /hpf Urine Bacteria (None) /hpf Urine Mucus (None) /hpf Crossmatch See Detail 03/07/22 03/07/22 03/07/22 Range/Units 18:48 20:25 20:26 WBC (3.8-10.6) k/uL RBC (3.80-5.40) m/uL Hgb (11.4-16.0) gm/dL Hct (34.0-46.0) % RDW (11.5-15.5) % Neutrophils # (1.3-7.7) k/uL Neutrophils # (Manual) (1.3-7.7) k/uL Monocytes # (0-1.0) k/uL Monocytes # (Manual) (0-1.0) k/uL Nucleated RBCs (0-0) /100 WBC ABG pH (7.35-7.45) ABG pCO2 (35-45) mmHg ABG pO2 (83-108) mmHg ABG HCO3 (21-25) mmol/L ABG O2 Saturation (94-97) % Sodium (137-145) mmol/L Potassium (3.5-5.1) mmol/L Carbon Dioxide (22-30) mmol/L BUN (7-17) mg/dL Creatinine (0.52-1.04) mg/dL Glucose (74-99) mg/dL POC Glucose (mg/dL) 194 H 258 H (70-110) mg/dL Plasma Lactic Acid Fernando 6.5 H* (0.7-2.0) mmol/L Calcium (8.4-10.2) mg/dL Iron (50-170) ug/dL Transferrin (204.0-354.0) mg/dL Ferritin (10.0-291.0) ng/mL Total Bilirubin (0.2-1.3) mg/dL AST (14-36) U/L ALT (4-34) U/L Creatine Kinase (30-135) U/L Total Protein (6.3-8.2) g/dL Albumin (3.5-5.0) g/dL Urine Appearance (Clear) Urine Protein (Negative) Urine Ketones (Negative) Urine Blood (Negative) Ur Leukocyte Esterase (Negative) Urine RBC (0-5) /hpf Urine WBC (0-5) /hpf Urine Bacteria (None) /hpf Urine Mucus (None) /hpf Crossmatch 03/07/22 03/07/22 03/07/22 Range/Units 22:00 22:00 23:05 WBC 41.3 H (3.8-10.6) k/uL RBC 2.29 L (3.80-5.40) m/uL Hgb 6.7 L* (11.4-16.0) gm/dL Hct 20.3 L (34.0-46.0) % RDW 17.5 H (11.5-15.5) % Neutrophils # 36.7 H (1.3-7.7) k/uL Neutrophils # (Manual) (1.3-7.7) k/uL Monocytes # 2.5 H (0-1.0) k/uL Monocytes # (Manual) (0-1.0) k/uL Nucleated RBCs (0-0) /100 WBC ABG pH (7.35-7.45) ABG pCO2 (35-45) mmHg ABG pO2 (83-108) mmHg ABG HCO3 (21-25) mmol/L ABG O2 Saturation (94-97) % Sodium 126 L (137-145) mmol/L Potassium (3.5-5.1) mmol/L Carbon Dioxide 20 L (22-30) mmol/L BUN 54 H (7-17) mg/dL Creatinine 1.28 H (0.52-1.04) mg/dL Glucose 223 H (74-99) mg/dL POC Glucose (mg/dL) (70-110) mg/dL Plasma Lactic Acid Fernando 5.8 H* (0.7-2.0) mmol/L Calcium 7.0 L (8.4-10.2) mg/dL Iron (50-170) ug/dL Transferrin (204.0-354.0) mg/dL Ferritin (10.0-291.0) ng/mL Total Bilirubin (0.2-1.3) mg/dL AST (14-36) U/L ALT (4-34) U/L Creatine Kinase (30-135) U/L Total Protein (6.3-8.2) g/dL Albumin (3.5-5.0) g/dL Urine Appearance (Clear) Urine Protein (Negative) Urine Ketones (Negative) Urine Blood (Negative) Ur Leukocyte Esterase (Negative) Urine RBC (0-5) /hpf Urine WBC (0-5) /hpf Urine Bacteria (None) /hpf Urine Mucus (None) /hpf Crossmatch 03/08/22 03/08/22 03/08/22 Range/Units 01:45 04:14 04:14 WBC 37.7 H (3.8-10.6) k/uL RBC 2.81 L (3.80-5.40) m/uL Hgb 8.3 L D (11.4-16.0) gm/dL Hct 24.2 L (34.0-46.0) % RDW 17.9 H (11.5-15.5) % Neutrophils # (1.3-7.7) k/uL Neutrophils # (Manual) (1.3-7.7) k/uL Monocytes # (0-1.0) k/uL Monocytes # (Manual) (0-1.0) k/uL Nucleated RBCs (0-0) /100 WBC ABG pH (7.35-7.45) ABG pCO2 (35-45) mmHg ABG pO2 (83-108) mmHg ABG HCO3 (21-25) mmol/L ABG O2 Saturation (94-97) % Sodium (137-145) mmol/L Potassium (3.5-5.1) mmol/L Carbon Dioxide (22-30) mmol/L BUN (7-17) mg/dL Creatinine (0.52-1.04) mg/dL Glucose (74-99) mg/dL POC Glucose (mg/dL) (70-110) mg/dL Plasma Lactic Acid Fernando 5.7 H* (0.7-2.0) mmol/L Calcium (8.4-10.2) mg/dL Iron 40 L (50-170) ug/dL Transferrin 193.0 L (204.0-354.0) mg/dL Ferritin 655.0 H (10.0-291.0) ng/mL Total Bilirubin (0.2-1.3) mg/dL AST (14-36) U/L ALT (4-34) U/L Creatine Kinase (30-135) U/L Total Protein (6.3-8.2) g/dL Albumin (3.5-5.0) g/dL Urine Appearance (Clear) Urine Protein (Negative) Urine Ketones (Negative) Urine Blood (Negative) Ur Leukocyte Esterase (Negative) Urine RBC (0-5) /hpf Urine WBC (0-5) /hpf Urine Bacteria (None) /hpf Urine Mucus (None) /hpf Crossmatch 03/08/22 03/08/22 03/08/22 Range/Units 04:14 06:23 07:41 WBC (3.8-10.6) k/uL RBC (3.80-5.40) m/uL Hgb (11.4-16.0) gm/dL Hct (34.0-46.0) % RDW (11.5-15.5) % Neutrophils # (1.3-7.7) k/uL Neutrophils # (Manual) (1.3-7.7) k/uL Monocytes # (0-1.0) k/uL Monocytes # (Manual) (0-1.0) k/uL Nucleated RBCs (0-0) /100 WBC ABG pH 7.47 H (7.35-7.45) ABG pCO2 27 L (35-45) mmHg ABG pO2 110 H (83-108) mmHg ABG HCO3 20 L (21-25) mmol/L ABG O2 Saturation 99.4 H (94-97) % Sodium 126 L (137-145) mmol/L Potassium 5.5 H (3.5-5.1) mmol/L Carbon Dioxide 18 L (22-30) mmol/L BUN 60 H (7-17) mg/dL Creatinine 1.42 H (0.52-1.04) mg/dL Glucose 210 H (74-99) mg/dL POC Glucose (mg/dL) 193 H (70-110) mg/dL Plasma Lactic Acid Fernando (0.7-2.0) mmol/L Calcium 6.8 L (8.4-10.2) mg/dL Iron (50-170) ug/dL Transferrin (204.0-354.0) mg/dL Ferritin (10.0-291.0) ng/mL Total Bilirubin 2.3 H (0.2-1.3) mg/dL AST 2140 H (14-36) U/L ALT 1613 H (4-34) U/L Creatine Kinase (30-135) U/L Total Protein 3.8 L (6.3-8.2) g/dL Albumin 2.1 L (3.5-5.0) g/dL Urine Appearance (Clear) Urine Protein (Negative) Urine Ketones (Negative) Urine Blood (Negative) Ur Leukocyte Esterase (Negative) Urine RBC (0-5) /hpf Urine WBC (0-5) /hpf Urine Bacteria (None) /hpf Urine Mucus (None) /hpf Crossmatch Microbiology - Last 24 Hours (Table) 03/07/22 13:45 Urine Culture - Preliminary Urine,Voided Assessment and Plan Assessment: Acute sepsis with hypotension suspect secondary to urinary tract infection, some serous drainage from the spinal surgery currently on vancomycin and cefepime, requiring norepinephrine. Lactic acidosis secondary to above Acute renal failure, creatinine 1.4 to Hyperkalemia, current potassium 5.5 Hyponatremia, current sodium 126 Leukocytosis, current white count 37.7 Acute anemia with a hemoglobin dropped to 5.4. Status post 2 units of packed red blood cells, currently 8.3. The patient had developed a large right sided chest wall/breast hematoma suspect secondary to fall on 03/06/2022 Lumbar decompression/fusion postoperative day #12, developed some foul-smelling serous sanguinous drainage. May require exploration and washout, possible dural repairs due to falls Cardiac arrest, brief pulseless electrical activity encountered in the operating room exact etiology is not clear. Acute hypoxic/hypercapnic respiratory failure secondary to cardiac arrest/pulseless electrical activity, patient was extubated Morbid obesity. BMI of 47.6 History of right hemidiaphragm paralysis History of right-sided breast cancer, previous lumpectomy Chronic atrial fibrillation/flutter, anticoagulated with Xarelto Dyslipidemia Benign essential hypertension Plan: The patient was seen and evaluated Chest x-ray, labs and medications reviewed Currently on cefepime and vancomycin Obtain blood culture, urine culture Check a pro-calcitonin Titrate the norepinephrine as needed Give 2 L of lactated Ringer's today Received 2 units of packed blood cells, monitor hemoglobin Hold Xarelto Titrate the FiO2 as tolerated We will continue to follow and make further recommendations based on her clinical status I have personally seen and examined the patient, performed the documentation and the assessment and plan as written. Number of minutes spent on the visit: 15.
--- NOTE | 2022-03-08 10:36 | P.NPCON ---
History of Present Illness - Reason for Consult acute renal failure - History of Present Illness Reason for consultation: Acute kidney injury and hyponatremia History of present illness: Patient is a 71-year-old female seen in renal consultation for acute kidney injury and hyponatremia. Patient baseline creatinine is near 0.6 and is up to 1.42 today. Sodium level was normal on admission and has been gradually decreasing and is 126 today. Patient came to the hospital on 02/24/2022 for elective L2 to L4 fusion. Patient subsequently underwent cardiac arrest this admission due to severe bradycardia and was successfully resuscitated. Patient subsequently has been hypotensive and her white count has been rising. She is currently in the intensive care unit. She is on nasal cannula. She is on Le vophed. Urine output has been about 10-20 mL an hour. Hemoglobin was 5.4 yesterday and she received 2 units of blood and hemoglobin is up 8.3 this morning. She is currently on amiodarone drip. She is also on a bicarb drip. Bicarb level today is 18. Potassium was up to 6.1 yesterday and was medically treated. It was 5.5 this morning and was again medically treated. Patient denies history of diabetes or coronary artery disease. She admits to dry heaving. She also admits to taking Advil at home. Patient did receive 2 L of lactated Ringer this morning. Vital signs are stable. General: Awake. HEENT: Head exam is unremarkable. On nasal cannula. LUNGS: Breath sounds decreased. HEART: Rate and Rhythm are regular. ABDOMEN: Soft, no distention. EXTREMITITES: No edema. Past Medical History Past Medical History: Atrial Fibrillation, Atrial Flutter, Cancer, Chest Pain / Angina, GERD/Reflux, Hyperlipidemia, Hypertension, Osteoarthritis (OA), Thyroid Disorder Additional Past Medical History / Comment(s): Rr breast cancer, hiatal hernia, chronic low back pain. partially paralyzed rt diaphragm, infection rt breast after surgery History of Any Multi-Drug Resistant Organisms: None Reported Past Surgical History: Back Surgery, Bladder Surgery, Breast Surgery, Cardiac Ablation, Cholecystectomy, EPS, Heart Catheterization, Hernia Repair, Hysterectomy, Joint Replacement, Orthopedic Surgery Additional Past Surgical History / Comment(s): R breast core bx/needle loc, R breast lumpectomy/axillary node dissection, CHATO, cardioversion, low back surger ies x3 with plate/screws, total R knee x3, R foot multiple surgeries for spur/neuromas, L foot cystectomy, R elbow injury w/ surgery, R wrist ganglion cystectomy, partial thyroidectomy, 4 abdominal hernia repairs, bladder suspension, colonoscopy, loki cataract, laser loki eye surgery 01/31/22 Past Anesthesia/Blood Transfusion Reactions: Previous Problems w/ Anesthesia, Postoperative Nausea & Vomiting (PONV) Additional Past Anesthesia/Blood Transfusion Reaction / Comment(s): On ventilator for 2 days after cardiac ablation d/t diaphragm paralysis-rt side Past Psychological History: Depression Additional Psychological History / Comment(s): . Smoking Status: Never smoker Past Alcohol Use History: Rare Past Drug Use History: None Reported - Past Family History Father Family Medical History: Cancer Additional Family Medical History / Comment(s): . Mother Family Medical History: Cancer, Deep Vein Thrombosis (DVT) Additional Family Medical History / Comment(s): Skin and breast cancer. Medications and Allergies Home Medications Medication Instructions Recorded Confirmed Type Levothyroxine Sodium [Synthroid] 88 mcg PO QAM 02/19/14 02/20/22 History HYDROcodone/APAP 10-325MG [[place] 1 tab PO Q4H PRN 12/23/18 02/20/22 History 10-325] Atorvastatin [Lipitor] 10 mg PO DAILY #30 tab 04/10/19 02/20/22 Rx atenoloL [Tenormin] 100 mg PO QAM 05/10/20 02/20/22 History Amlodipine Besylate/Valsartan 1 each PO QAM 02/02/22 02/20/22 History [Exforge 5-320 mg Tablet] DULoxetine HCL [Cymbalta] 60 mg PO DAILY 02/02/22 02/20/22 History Rivaroxaban [Xarelto] 20 mg PO HS 02/02/22 02/20/22 History Rosuvastatin Calcium 10 mg PO QAM 02/02/22 02/20/22 History Allergies Allergy/AdvReac Type Severity Reaction Status Date / Time cephalexin monohydrate Allergy Mild Rash/Hives Verified 02/24/22 05:56 [From Keflex] Iodinated Contrast Media Allergy Mild Rash/Hives Verified 02/24/22 05:56 [Iodinated Contrast Media - IV Dye] Sulfa (Sulfonamide Allergy Mild Rash/Hives Verified 02/24/22 05:56 Antibiotics) adhesive tape AdvReac Severe Rash/Hives Uncoded 02/24/22 05:56 Physical Exam Vitals: Vital Signs Temp Pulse Pulse Resp BP Pulse Ox 03/08/22 10:00 58 L 23 99 03/08/22 09:30 61 17 100 03/08/22 09:00 79 23 100 03/08/22 08:30 63 27 H 99 03/08/22 08:00 98.2 F 64 24 100 03/08/22 07:30 64 27 H 100 03/08/22 07:00 65 22 100 03/08/22 06:30 64 22 100 03/08/22 06:00 64 24 100 03/08/22 05:30 64 20 99 03/08/22 05:00 64 23 100 03/08/22 04:30 65 28 H 99 03/08/22 04:00 97.0 F L 63 19 100 03/08/22 03:30 57 L 22 99 03/08/22 03:00 66 16 100 03/08/22 02:30 63 20 100 03/08/22 02:08 63 20 114/55 100 03/08/22 02:00 64 24 100 03/08/22 01:30 63 32 H 100 03/08/22 01:00 63 23 99 03/08/22 00:30 63 21 95 03/08/22 00:11 97.1 F L 62 19 102/53 99 03/08/22 00:00 97.1 F L 62 19 100 03/07/22 23:51 97.1 F L 63 19 91/51 100 03/07/22 23:30 63 21 98 03/07/22 23:00 63 31 H 97 03/07/22 22:30 62 22 94 L 03/07/22 22:00 61 16 99 03/07/22 21:30 61 19 97 03/07/22 21:10 97.1 F L 60 20 110/51 100 03/07/22 21:00 60 19 100 03/07/22 20:50 97.1 F L 60 15 114/54 100 03/07/22 20:30 61 20 89/43 100 03/07/22 20:00 97.1 F L 61 20 92/69 91 L 03/07/22 19:12 97.1 F L 62 14 103/52 94 L 03/07/22 19:00 62 21 98 03/07/22 18:52 97.1 F L 62 18 103/51 94 L 03/07/22 18:44 96.9 F L 62 18 101/50 95 03/07/22 18:00 64 22 95 03/07/22 17:00 62 18 97 03/07/22 16:00 96.9 F L 61 20 98/54 99 03/07/22 14:00 62 20 Intake and Output 03/07/22 03/08/22 03/08/22 22:59 06:59 14:59 Intake Total 7322.948 8591.867 300 Output Total 350 130 80 Balance 625.926 1846.867 220 Intake: IV 450 600 300 Dextrose 5% in Water 1, 450 600 300 000 ml @ 75 mls/hr IV . [id number] with Sodium Bicarb (1 Meq/ml) 150 ml Rx#:[id number] Intake, IV Titration 59.270 257.867 Amount Norepinephrine 4 mg In 59.270 139.803 Sodium Chloride 0.9% 250 ml @ 0.05 MCG/KG/MIN 27. 146 mls/hr IV .[id number] [facility] Rx#:[id number] Norepinephrine 8 mg In 118.064 Sodium Chloride 0.9% 250 ml @ 0.03 MCG/KG/MIN 8. 272 mls/hr IV .Q24H [facility] Rx#:[id number] Oral 200 Blood Product 287 310 Rc Pheresis 2 As3 Unit 310 [id number] Rc Pheresis As-3 Unit 287 [id number] Other 150 Rc Pheresis As-3 Unit 150 [id number] Output: Urine 350 130 80 Other: Voiding Method Indwelling Catheter Indwelling Catheter Weight 137.8 kg ABP, PAP, CO, CI - Last 8 Hours Arterial Blood Pressure 150/47 Arterial Blood Pressure 133/45 Arterial Blood Pressure 154/54 Arterial Blood Pressure 131/45 Arterial Blood Pressure 116/47 Arterial Blood Pressure 114/45 Arterial Blood Pressure 104/51 Arterial Blood Pressure 102/51 Arterial Blood Pressure 100/54 Arterial Blood Pressure 102/51 Arterial Blood Pressure 109/53 Arterial Blood Pressure 74/39 Arterial Blood Pressure 107/53 Arterial Blood Pressure 92/51 Arterial Blood Pressure 96/53 Arterial Blood Pressure 99/55 Results - Lab Results Most recent lab results ABG pH 7.47 (7.35-7.45) H 03/08/22 07:41 ABG pCO2 27 mmHg (35-45) L 03/08/22 07:41 ABG pO2 110 mmHg (83-108) H 03/08/22 07:41 ABG HCO3 20 mmol/L (21-25) L 03/08/22 07:41 ABG O2 Saturation 99.4 % (94-97) H 03/08/22 07:41 Calcium 6.8 mg/dL (8.4-10.2) L 03/08/22 04:14 Phosphorus 2.8 mg/dL (2.5-4.5) 02/27/22 05:45 Magnesium 2.2 mg/dL (1.6-2.3) 03/08/22 04:14 03/08/22 04:14 03/08/22 04:14 Assessment and Plan Plan: Assessment: 1. Acute kidney injury secondary to ATN secondary to septic shock, hemodynamic instability, anemia. Baseline creatinine near 0.6 and is 1.42 today. No hydr onephrosis noted in right kidney. Left renal pelvis dilated. 2. Hyponatremia from poor solute intake and component of SIADH from pain. Sodium level 126 today. 3. Hyperkalemia secondary to acute kidney injury and metabolic acidosis. 4. Metabolic acidosis secondary to acute kidney injury, lactic acidosis and IV fluids. 5. A flutter maintained on amiodarone drip. Cardiology following. 6. Status post cardiac arrest this admission. 7. Acute blood loss anemia status post blood transfusion this admission. Hemoglobin 8.3 this morning. Noted to have right breast hematoma. Being followed by cardiac thoracic surgery. 8. Septic shock secondary to UTI versus postoperative wound infection. Washout pending. Orthopedic surgery following. 9. Chronic systolic CHF with ejection fraction of 35-40% and moderate tricuspid regurgitation and severe pulmonary hypertension. Plan: Maintain bicarb drip. 25 g IV albumin 2 doses today. Status post 3 L of normal saline yesterday and 2 L of LR today. Wean Levophed. Hyperkalemia medically treated this morning. Repeat BMP at 11 AM today. Avoid nephrotoxins. Continue to monitor renal function and urine output. Check urine studies and TSH. Thank you for the consultation. I will continue to follow the patient with you during her hospital stay.
[2022-03-08 11:19] LABS: Anisocytosis Slight; Hypochromasia Slight; MCH 29.9 pg (25.0-35.0); MCHC 33.2 g/dL (31.0-37.0); MCV 90.2 fL (80.0-100.0); Mean Platelet Volume 12.5; Platelet Count 225 k/uL (150-450); Poikilocytosis Moderate; RBC 2.02 m/uL (3.80-5.40); RDW 19.8 % (11.5-15.5)
[2022-03-08 11:24] LABS: HCT 18.2 % (34.0-46.0)
[2022-03-08 11:30] LABS: Potassium 4.6 mmol/L (3.5-5.1)
[2022-03-08 11:36] LABS: Calcium 6.2 mg/dL (8.4-10.2)
--- NOTE | 2022-03-08 12:01 | P.GSCN ---
History of Present Illness Consult date: 03/08/22 History of present illness: CHIEF COMPLAINT: Back surgery Reason for consult of small bowel obstruction, left breast hematoma HISTORY OF PRESENT ILLNESS: This is a 71-year-old female who came into the hospital with an elective spinal surgery with Dr. Alexander. At the end of her procedure patient did go into atrial fibrillation with rapid ventricular response and became bradycardic and lost pulse. Patient coded and ACLS protocol and CPR was initiated. Patient was transferred to the ICU intubated and sedated. Patient was extubated and was able to be transferred out of the ICU. Apparently patient has had 2 falls where she had been taken down to the ground with the help of nursing staff. She did require to be brought back into the ICU yesterday she became hypotensive and elevated white count. She is requiring Levophed. She received a 3 L fluid boluses. She's also on sodium bicarb drip. Due to patient's multiple falls spinal surgery is worried about a leak in her spine in planning on taking her back to the OR tomorrow. Abdomen completed showing a large right anterior intermediate density chest mass. This could be a hematoma. Also demonstrated dilated proximal small bowel and distended stomach suggestive of proximal partial mechanical small bowel obstruction. Ileus is also possible. Transition point was not seen. Patient reports having flatus. She did have a bowel movement with a moderate amount of blood this morning. Per nursing staff patient has had increase in abdominal pain over the last 24 hours. She denies any nausea or vomiting. Patient had been on Xarelto for A. fib. Patient has required a total of 2 units of blood during this admission. Her hemoglobin is low again today at 6. Another unit of blood will be ordered. Patient reports pain in the right breast and chest wall with swelling and evidence of hematoma. Patient's past surgical history includes cholecystectomy and hysterectomy and right breast cancer with right breast lumpectomy PAST MEDICAL HISTORY: See below PAST SURGICAL HISTORY: See below MEDICATIONS: See below ALLERGIES: See below SOCIAL HISTORY: No illicit drug use. REVIEW OF SYSTEMS: CONSTITUTIONAL: Denies fever or chills. HEENT: Denies blurred vision, vision changes, or eye pain. Denies hemoptysis CARDIOVASCULAR: Denies chest pain or pressure. RESPIRATORY: No shortness of breath. GASTROINTESTINAL: See HPI for pertinent findings HEMATOLOGIC: Denies bleeding disorders. GENITOURINARY: Denies any blood in urine or increased urinary frequency. SKIN: Denies pruitis. Denies rash. PHYSICAL EXAM: VITAL SIGNS: Reviewed GENERAL: Well-developed in no acute distress. CHEST: Patient has hematoma on the right side of the chest wall. Tender with palpation. She has swelling of the right breast and under the breast is also evidence of a large hematoma. Tender with palpation. ABDOMEN: Soft. Obese. Nondistended. Pain with palpation of the right side of the abdomen NEUROLOGIC: Alert and oriented. Cranial nerves II through XII grossly intact. LABORATORY DATA: WBC did elevate up to 42.3 at the highest and his now 31.9. Hemoglobin 13.7 down to 8.8 after surgery. Lowest hemoglobin is 5.4 which she did receive 2 units of blood hemoglobin count 8.3. Repeat hemoglobin 6.0 Platelets 275 Sodium is 126 potassium 5.5 creatinine 1.42 Glucose 210 Lactic acid 6.5, 5.7 Iron 40 Total bili 2.3 AST 2140 ALT 1613 Urinalysis positive for UTI IMAGING: Computed tomography scan abdomen and pelvis large right anterior intermediate density chest mass. Right breast edema. Clinical correlation is needed. Mass appears new compared to chest CT on 02/25/2022. This could be hematoma. Right breast edema appears ill. Dilated proximal small bowel and distended stomach suggestive of proximal partial mechanical small bowel obstruction. Ileus is also possible. Transition point not seen. Subcutaneous edema around the abdomen. ASSESSMENT: 1. Right-sided abdominal pain with bloody stool with hypotension, elevated lactic acid level and elevated WBC. Concerns for possible ischemic colitis 2. Right chest wall and breast hematoma likely due to CPR and cardiac arrest 3. Most likely ileus. Concerns for possible partial mechanical small bowel obstruction versus ileus noted on CAT scan 4. Anemia 5. Sepsis 6. Lumbar decompression/fusion 7. Hyponatremia 8. Hyperkalemia PLAN: -Further recommendations forthcoming per surgeon -Xarelto discontinued -1 unit of blood ordered for hemoglobin of 6 -Continue to monitor hemoglobin -Continue monitoring for any signs or symptoms of bleeding -Keep right breast elevated -Continue ICU management -Continue supportive care Physician Icebox Man note has been reviewed by physician. Signing provider agrees with the documented findings, assessment, and plan of care. I have personally seen and examined the patient, reviewed the HEM[employer] CHAINST[employer] /PAs history, exam and MDM and agree with the assessment and plan as written. Based on total visit time, I have performed more than 50% of the visit. As above: New consult for GI bleed, abdominal pain, and right-sided breast hematoma. Patient has had abdominal discomfort she describes as upper abdomen right subcostal for the last 2 days. Says it was worse after she was straining to get up out of bed. She has had 2-assisted falls. Patient has evidence of global ischemia. Today she had a bloody stool. That was her first episode of bleeding. Abdominal CAT scan performed was reviewed and reveals a right breast hematoma. There is gastric distention and possibly some mild proximal small bowel dilation. The patient's small bowel and colon show no evidence of wall thickening or ischemic changes at this time. For now will have a nasogastric tube placed for gastric decompression and to evaluate for possible proximal GI source of bleeding. Patient's pain may be on the basis of gastric distention. If no bleeding seen from the nasogastric tube I suspect possible ischemic colitis as the etiology for the bloody stool today. Continue supportive care for that. No plans for endoscopy at this time. If bleeding increases patient may benefit from tertiary care evaluation for GI consultation. Continue observation of the patient's right breast hematoma. Patient with multiple issues going on at this time and prognosis certainly poor. Will follow. Past Medical History Past Medical History: Atrial Fibrillation, Atrial Flutter, Cancer, Chest Pain / Angina, GERD/Reflux, Hyperlipidemia, Hypertension, Osteoarthritis (OA), Thyroid Disorder Additional Past Medical History / Comment(s): Rr breast cancer, hiatal hernia, chronic low back pain. partially paralyzed rt diaphragm, infection rt breast after surgery History of Any Multi-Drug Resistant Organisms: None Reported Past Surgical History: Back Surgery, Bladder Surgery, Breast Surgery, Cardiac Ablation, Cholecystectomy, EPS, Heart Catheterization, Hernia Repair, Hysterectomy, Joint Replacement, Orthopedic Surgery Additional Past Surgical History / Comment(s): R breast core bx/needle loc, R breast lumpectomy/axillary node dissection, CHATO, cardioversion, low back surgeries x3 with plate/screws, total R knee x3, R foot multiple surgeries for spur/neuromas, L foot cystectomy, R elbow injury w/ surgery, R wrist ganglion cystectomy, partial thyroidectomy, 4 abdominal hernia repairs, bladder suspension, colonoscopy, loki cataract, laser loki eye surgery 01/31/22 Past Anesthesia/Blood Transfusion Reactions: Previous Problems w/ Anesthesia, Postoperative Nausea & Vomiting (PONV) Additional Past Anesthesia/Blood Transfusion Reaction / Comm: On ventilator for 2 days after cardiac ablation d/t diaphragm paralysis-rt side Past Psychological History: Depression Additional Psychological History / Comment(s): . Smoking Status: Never smoker Past Alcohol Use History: Rare Past Drug Use History: None Reported - Past Family History Father Family Medical History: Cancer Additional Family Medical History / Comment(s): . Mother Family Medical History: Cancer, Deep Vein Thrombosis (DVT) Additional Family Medical History / Comment(s): Skin and breast cancer. Medications and Allergies Home Medications Medication Instructions Recorded Confirmed Type Levothyroxine Sodium [Synthroid] 88 mcg PO QAM 02/19/14 02/20/22 History HYDROcodone/APAP 10-325MG [[place] 1 tab PO Q4H PRN 12/23/18 02/20/22 History 10-325] Atorvastatin [Lipitor] 10 mg PO DAILY #30 tab 04/10/19 02/20/22 Rx atenoloL [Tenormin] 100 mg PO QAM 05/10/20 02/20/22 History Amlodipine Besylate/Valsartan 1 each PO QAM 02/02/22 02/20/22 History [[place] 5-320 mg Tablet] DULoxetine HCL [Cymbalta] 60 mg PO DAILY 02/02/22 02/20/22 History Rivaroxaban [Xarelto] 20 mg PO HS 02/02/22 02/20/22 History Rosuvastatin Calcium 10 mg PO QAM 02/02/22 02/20/22 History Allergies Allergy/AdvReac Type Severity Reaction Status Date / Time cephalexin monohydrate Allergy Mild Rash/Hives Verified 02/24/22 05:56 [From Keflex] Iodinated Contrast Media Allergy Mild Rash/Hives Verified 02/24/22 05:56 [Iodinated Contrast Media - IV Dye] Sulfa (Sulfonamide Allergy Mild Rash/Hives Verified 02/24/22 05:56 Antibiotics) adhesive tape AdvReac Severe Rash/Hives Uncoded 02/24/22 05:56 Surgical - Exam Vital Signs Temp Pulse Resp BP Pulse Ox 97.7 F 66 16 113/56 96 02/24/22 06:42 02/24/22 06:42 02/24/22 06:42 02/24/22 06:42 02/24/22 06:42 Results - Labs 03/08/22 10:52 03/08/22 10:52 Abnormal Lab Results - Last 24 Hours (Table) 03/07/22 03/07/22 03/07/22 Range/Units 12:06 13:45 14:52 WBC (3.8-10.6) k/uL RBC (3.80-5.40) m/uL Hgb (11.4-16.0) gm/dL Hct (34.0-46.0) % RDW (11.5-15.5) % Neutrophils # (1.3-7.7) k/uL Neutrophils # (Manual) (1.3-7.7) k/uL Monocytes # (0-1.0) k/uL Monocytes # (Manual) (0-1.0) k/uL Nucleated RBCs (0-0) /100 WBC ABG pH (7.35-7.45) ABG pCO2 28 L (35-45) mmHg ABG pO2 (83-108) mmHg ABG HCO3 18 L (21-25) mmol/L ABG O2 Saturation 99.3 H (94-97) % Sodium (137-145) mmol/L Potassium (3.5-5.1) mmol/L Carbon Dioxide (22-30) mmol/L BUN (7-17) mg/dL Creatinine (0.52-1.04) mg/dL Glucose (74-99) mg/dL POC Glucose (mg/dL) 193 H (70-110) mg/dL Plasma Lactic Acid Fernando (0.7-2.0) mmol/L Calcium (8.4-10.2) mg/dL Iron (50-170) ug/dL Transferrin (204.0-354.0) mg/dL Ferritin (10.0-291.0) ng/mL Total Bilirubin (0.2-1.3) mg/dL AST (14-36) U/L ALT (4-34) U/L Creatine Kinase (30-135) U/L Total Protein (6.3-8.2) g/dL Albumin (3.5-5.0) g/dL Urine Appearance Turbid H (Clear) Urine Protein 1+ H (Negative) Urine Ketones Trace H (Negative) Urine Blood Moderate H (Negative) Ur Leukocyte Esterase Large H (Negative) Urine RBC 29 H (0-5) /hpf Urine WBC 103 H (0-5) /hpf Urine Bacteria Many H (None) /hpf Urine Mucus Moderate H (None) /hpf Crossmatch 03/07/22 03/07/22 03/07/22 Range/Units 15:05 16:19 16:19 WBC 38.3 H (3.8-10.6) k/uL RBC 1.69 L (3.80-5.40) m/uL Hgb 5.4 L* D (11.4-16.0) gm/dL Hct 15.6 L* (34.0-46.0) % RDW 17.7 H (11.5-15.5) % Neutrophils # (1.3-7.7) k/uL Neutrophils # (Manual) 34.09 H (1.3-7.7) k/uL Monocytes # (0-1.0) k/uL Monocytes # (Manual) 1.92 H (0-1.0) k/uL Nucleated RBCs 3 H (0-0) /100 WBC ABG pH (7.35-7.45) ABG pCO2 (35-45) mmHg ABG pO2 (83-108) mmHg ABG HCO3 (21-25) mmol/L ABG O2 Saturation (94-97) % Sodium (137-145) mmol/L Potassium (3.5-5.1) mmol/L Carbon Dioxide (22-30) mmol/L BUN (7-17) mg/dL Creatinine (0.52-1.04) mg/dL Glucose (74-99) mg/dL POC Glucose (mg/dL) 205 H (70-110) mg/dL Plasma Lactic Acid Fernando 5.9 H* (0.7-2.0) mmol/L Calcium (8.4-10.2) mg/dL Iron (50-170) ug/dL Transferrin (204.0-354.0) mg/dL Ferritin (10.0-291.0) ng/mL Total Bilirubin (0.2-1.3) mg/dL AST (14-36) U/L ALT (4-34) U/L Creatine Kinase (30-135) U/L Total Protein (6.3-8.2) g/dL Albumin (3.5-5.0) g/dL Urine Appearance (Clear) Urine Protein (Negative) Urine Ketones (Negative) Urine Blood (Negative) Ur Leukocyte Esterase (Negative) Urine RBC (0-5) /hpf Urine WBC (0-5) /hpf Urine Bacteria (None) /hpf Urine Mucus (None) /hpf Crossmatch 03/07/22 03/07/22 03/07/22 Range/Units 16:19 16:26 16:56 WBC (3.8-10.6) k/uL RBC (3.80-5.40) m/uL Hgb (11.4-16.0) gm/dL Hct (34.0-46.0) % RDW (11.5-15.5) % Neutrophils # (1.3-7.7) k/uL Neutrophils # (Manual) (1.3-7.7) k/uL Monocytes # (0-1.0) k/uL Monocytes # (Manual) (0-1.0) k/uL Nucleated RBCs (0-0) /100 WBC ABG pH (7.35-7.45) ABG pCO2 30 L (35-45) mmHg ABG pO2 124 H (83-108) mmHg ABG HCO3 19 L (21-25) mmol/L ABG O2 Saturation 100.0 H (94-97) % Sodium 126 L (137-145) mmol/L Potassium (3.5-5.1) mmol/L Carbon Dioxide 20 L (22-30) mmol/L BUN 49 H (7-17) mg/dL Creatinine 1.32 H (0.52-1.04) mg/dL Glucose 183 H (74-99) mg/dL POC Glucose (mg/dL) (70-110) mg/dL Plasma Lactic Acid Fernando (0.7-2.0) mmol/L Calcium 6.3 L* (8.4-10.2) mg/dL Iron (50-170) ug/dL Transferrin (204.0-354.0) mg/dL Ferritin (10.0-291.0) ng/mL Total Bilirubin 1.4 H (0.2-1.3) mg/dL AST 2295 H (14-36) U/L ALT 1562 H (4-34) U/L Creatine Kinase 244 H (30-135) U/L Total Protein 3.6 L (6.3-8.2) g/dL Albumin 2.0 L (3.5-5.0) g/dL Urine Appearance (Clear) Urine Protein (Negative) Urine Ketones (Negative) Urine Blood (Negative) Ur Leukocyte Esterase (Negative) Urine RBC (0-5) /hpf Urine WBC (0-5) /hpf Urine Bacteria (None) /hpf Urine Mucus (None) /hpf Crossmatch See Detail 03/07/22 03/07/22 03/07/22 Range/Units 18:48 20:25 20:26 WBC (3.8-10.6) k/uL RBC (3.80-5.40) m/uL Hgb (11.4-16.0) gm/dL Hct (34.0-46.0) % RDW (11.5-15.5) % Neutrophils # (1.3-7.7) k/uL Neutrophils # (Manual) (1.3-7.7) k/uL Monocytes # (0-1.0) k/uL Monocytes # (Manual) (0-1.0) k/uL Nucleated RBCs (0-0) /100 WBC ABG pH (7.35-7.45) ABG pCO2 (35-45) mmHg ABG pO2 (83-108) mmHg ABG HCO3 (21-25) mmol/L ABG O2 Saturation (94-97) % Sodium (137-145) mmol/L Potassium (3.5-5.1) mmol/L Carbon Dioxide (22-30) mmol/L BUN (7-17) mg/dL Creatinine (0.52-1.04) mg/dL Glucose (74-99) mg/dL POC Glucose (mg/dL) 194 H 258 H (70-110) mg/dL Plasma Lactic Acid Fernando 6.5 H* (0.7-2.0) mmol/L Calcium (8.4-10.2) mg/dL Iron (50-170) ug/dL Transferrin (204.0-354.0) mg/dL Ferritin (10.0-291.0) ng/mL Total Bilirubin (0.2-1.3) mg/dL AST (14-36) U/L ALT (4-34) U/L Creatine Kinase (30-135) U/L Total Protein (6.3-8.2) g/dL Albumin (3.5-5.0) g/dL Urine Appearance (Clear) Urine Protein (Negative) Urine Ketones (Negative) Urine Blood (Negative) Ur Leukocyte Esterase (Negative) Urine RBC (0-5) /hpf Urine WBC (0-5) /hpf Urine Bacteria (None) /hpf Urine Mucus (None) /hpf Crossmatch 03/07/22 03/07/22 03/07/22 Range/Units 22:00 22:00 23:05 WBC 41.3 H (3.8-10.6) k/uL RBC 2.29 L (3.80-5.40) m/uL Hgb 6.7 L* (11.4-16.0) gm/dL Hct 20.3 L (34.0-46.0) % RDW 17.5 H (11.5-15.5) % Neutrophils # 36.7 H (1.3-7.7) k/uL Neutrophils # (Manual) (1.3-7.7) k/uL Monocytes # 2.5 H (0-1.0) k/uL Monocytes # (Manual) (0-1.0) k/uL Nucleated RBCs (0-0) /100 WBC ABG pH (7.35-7.45) ABG pCO2 (35-45) mmHg ABG pO2 (83-108) mmHg ABG HCO3 (21-25) mmol/L ABG O2 Saturation (94-97) % Sodium 126 L (137-145) mmol/L Potassium (3.5-5.1) mmol/L Carbon Dioxide 20 L (22-30) mmol/L BUN 54 H (7-17) mg/dL Creatinine 1.28 H (0.52-1.04) mg/dL Glucose 223 H (74-99) mg/dL POC Glucose (mg/dL) (70-110) mg/dL Plasma Lactic Acid Fernando 5.8 H* (0.7-2.0) mmol/L Calcium 7.0 L (8.4-10.2) mg/dL Iron (50-170) ug/dL Transferrin (204.0-354.0) mg/dL Ferritin (10.0-291.0) ng/mL Total Bilirubin (0.2-1.3) mg/dL AST (14-36) U/L ALT (4-34) U/L Creatine Kinase (30-135) U/L Total Protein (6.3-8.2) g/dL Albumin (3.5-5.0) g/dL Urine Appearance (Clear) Urine Protein (Negative) Urine Ketones (Negative) Urine Blood (Negative) Ur Leukocyte Esterase (Negative) Urine RBC (0-5) /hpf Urine WBC (0-5) /hpf Urine Bacteria (None) /hpf Urine Mucus (None) /hpf Crossmatch 03/08/22 03/08/22 03/08/22 Range/Units 01:45 04:14 04:14 WBC 37.7 H (3.8-10.6) k/uL RBC 2.81 L (3.80-5.40) m/uL Hgb 8.3 L D (11.4-16.0) gm/dL Hct 24.2 L (34.0-46.0) % RDW 17.9 H (11.5-15.5) % Neutrophils # (1.3-7.7) k/uL Neutrophils # (Manual) (1.3-7.7) k/uL Monocytes # (0-1.0) k/uL Monocytes # (Manual) (0-1.0) k/uL Nucleated RBCs (0-0) /100 WBC ABG pH (7.35-7.45) ABG pCO2 (35-45) mmHg ABG pO2 (83-108) mmHg ABG HCO3 (21-25) mmol/L ABG O2 Saturation (94-97) % Sodium (137-145) mmol/L Potassium (3.5-5.1) mmol/L Carbon Dioxide (22-30) mmol/L BUN (7-17) mg/dL Creatinine (0.52-1.04) mg/dL Glucose (74-99) mg/dL POC Glucose (mg/dL) (70-110) mg/dL Plasma Lactic Acid Fernando 5.7 H* (0.7-2.0) mmol/L Calcium (8.4-10.2) mg/dL Iron 40 L (50-170) ug/dL Transferrin 193.0 L (204.0-354.0) mg/dL Ferritin 655.0 H (10.0-291.0) ng/mL Total Bilirubin (0.2-1.3) mg/dL AST (14-36) U/L ALT (4-34) U/L Creatine Kinase (30-135) U/L Total Protein (6.3-8.2) g/dL Albumin (3.5-5.0) g/dL Urine Appearance (Clear) Urine Protein (Negative) Urine Ketones (Negative) Urine Blood (Negative) Ur Leukocyte Esterase (Negative) Urine RBC (0-5) /hpf Urine WBC (0-5) /hpf Urine Bacteria (None) /hpf Urine Mucus (None) /hpf Crossmatch 03/08/22 03/08/22 03/08/22 Range/Units 04:14 06:23 07:41 WBC (3.8-10.6) k/uL RBC (3.80-5.40) m/uL Hgb (11.4-16.0) gm/dL Hct (34.0-46.0) % RDW (11.5-15.5) % Neutrophils # (1.3-7.7) k/uL Neutrophils # (Manual) (1.3-7.7) k/uL Monocytes # (0-1.0) k/uL Monocytes # (Manual) (0-1.0) k/uL Nucleated RBCs (0-0) /100 WBC ABG pH 7.47 H (7.35-7.45) ABG pCO2 27 L (35-45) mmHg ABG pO2 110 H (83-108) mmHg ABG HCO3 20 L (21-25) mmol/L ABG O2 Saturation 99.4 H (94-97) % Sodium 126 L (137-145) mmol/L Potassium 5.5 H (3.5-5.1) mmol/L Carbon Dioxide 18 L (22-30) mmol/L BUN 60 H (7-17) mg/dL Creatinine 1.42 H (0.52-1.04) mg/dL Glucose 210 H (74-99) mg/dL POC Glucose (mg/dL) 193 H (70-110) mg/dL Plasma Lactic Acid Fernando (0.7-2.0) mmol/L Calcium 6.8 L (8.4-10.2) mg/dL Iron (50-170) ug/dL Transferrin (204.0-354.0) mg/dL Ferritin (10.0-291.0) ng/mL Total Bilirubin 2.3 H (0.2-1.3) mg/dL AST 2140 H (14-36) U/L ALT 1613 H (4-34) U/L Creatine Kinase (30-135) U/L Total Protein 3.8 L (6.3-8.2) g/dL Albumin 2.1 L (3.5-5.0) g/dL Urine Appearance (Clear) Urine Protein (Negative) Urine Ketones (Negative) Urine Blood (Negative) Ur Leukocyte Esterase (Negative) Urine RBC (0-5) /hpf Urine WBC (0-5) /hpf Urine Bacteria (None) /hpf Urine Mucus (None) /hpf Crossmatch Microbiology - Last 24 Hours (Table) 03/07/22 13:45 Urine Culture - Preliminary Urine,Voided Diabetes panel 03/07/22 03/07/22 03/08/22 Range/Units 16:19 22:00 04:14 Sodium 126 L 126 L 126 L (137-145) mmol/L Potassium 4.9 5.1 5.5 H (3.5-5.1) mmol/L Chloride 100 101 99 (98-107) mmol/L Carbon Dioxide 20 L 20 L 18 L (22-30) mmol/L BUN 49 H 54 H 60 H (7-17) mg/dL Creatinine 1.32 H 1.28 H 1.42 H (0.52-1.04) mg/dL Glucose 183 H 223 H 210 H (74-99) mg/dL Calcium 6.3 L* 7.0 L 6.8 L (8.4-10.2) mg/dL AST 2295 H 2140 H (14-36) U/L ALT 1562 H 1613 H (4-34) U/L Alkaline Phosphatase 57 76 (38-126) U/L Total Protein 3.6 L 3.8 L (6.3-8.2) g/dL Albumin 2.0 L 2.1 L (3.5-5.0) g/dL Calcium panel 03/07/22 03/07/22 03/08/22 Range/Units 16:19 22:00 04:14 Calcium 6.3 L* 7.0 L 6.8 L (8.4-10.2) mg/dL Albumin 2.0 L 2.1 L (3.5-5.0) g/dL Pituitary panel 03/07/22 03/07/22 03/08/22 Range/Units 16:19 22:00 04:14 Sodium 126 L 126 L 126 L (137-145) mmol/L Potassium 4.9 5.1 5.5 H (3.5-5.1) mmol/L Chloride 100 101 99 (98-107) mmol/L Carbon Dioxide 20 L 20 L 18 L (22-30) mmol/L BUN 49 H 54 H 60 H (7-17) mg/dL Creatinine 1.32 H 1.28 H 1.42 H (0.52-1.04) mg/dL Glucose 183 H 223 H 210 H (74-99) mg/dL Calcium 6.3 L* 7.0 L 6.8 L (8.4-10.2) mg/dL Adrenal panel 03/07/22 03/07/22 03/08/22 Range/Units 16:19 22:00 04:14 Sodium 126 L 126 L 126 L (137-145) mmol/L Potassium 4.9 5.1 5.5 H (3.5-5.1) mmol/L Chloride 100 101 99 (98-107) mmol/L Carbon Dioxide 20 L 20 L 18 L (22-30) mmol/L BUN 49 H 54 H 60 H (7-17) mg/dL Creatinine 1.32 H 1.28 H 1.42 H (0.52-1.04) mg/dL Glucose 183 H 223 H 210 H (74-99) mg/dL Calcium 6.3 L* 7.0 L 6.8 L (8.4-10.2) mg/dL Total Bilirubin 1.4 H 2.3 H (0.2-1.3) mg/dL AST 2295 H 2140 H (14-36) U/L ALT 1562 H 1613 H (4-34) U/L Alkaline Phosphatase 57 76 (38-126) U/L Total Protein 3.6 L 3.8 L (6.3-8.2) g/dL Albumin 2.0 L 2.1 L (3.5-5.0) g/dL
--- NOTE | 2022-03-08 12:43 | XR ---
EXAMINATION TYPE: XR chest 1V portable DATE OF EXAM: 03/08/2022 COMPARISON: 03/08/2022 HISTORY: NG tube placement TECHNIQUE: Single frontal view of the chest is obtained. FINDINGS: A bilateral lower lobe infiltrate and small effusion greater on the right. There is an trudy vated right hemidiaphragm. Postsurgical change involving the vertebral column with surgical rito n oted. NG tube is seen coursing into the upper abdomen is obscured by overlying orthopedic metallic in strumentation. No pneumothorax. IMPRESSION: 1. NG tube is seen extending the upper abdomen but is not included entirely in the [id number]. Nickie lizama recommend a short-term follow-up limited upper abdominal one view series to see the distal margin. 2. Correlate for right lower lobe infiltrate.
[2022-03-08 12:50] LABS: Band Neutrophils % 2 %; Neutrophils % (M) 92 %; Nucleated Red Blood Cells 3 /100 WBC (0-0); Total Cells Counted 200
[2022-03-08 12:51] LABS: Lymphocytes # (M) 0.93 k/uL (1.0-4.8); Monocytes # (M) 1.24 k/uL (0-1.0); Polychromasia Present
[2022-03-08 12:51] LABS: Glucose,Whole Blood 244 mg/dL (70-110)
--- NOTE | 2022-03-08 13:53 | P.PN ---
Subjective Progress Note Date: 03/08/22 Patient is a 71 yo CF with a hx of A fib s/p ablation, GERD, hypertension, dyslipidemia, and right diaphragmatic paralysis who presented for T10 to Pelvis decompression and fusion with revision. Blood loss and the case was approximately 1900 mL. During her operative course she required phenylephrine IV infusion, Vasopressin IVP. She also received TXA gtt. She received 7 L of lactated Ringer's. She received 1 amp of sodium bicarb intaop. She also received albumin. Her operative course was complicated with a cardiac arrest. During the case she developed A. fib with RVR and then quickly transitioned into bradycardia with a low end-tidal CO2. She received 0.4 of atropine and CPR was started. She received epinephrine 0.5. She achieved ROSC. Total down time was less than 5 minutes. Her levo was weaned overnight. During her sedation holiday she was responding appropriately. She was extubated on 02/25. She continued to do well with struggled with pain. She was downgraded from ICU on 03/03. She was evaluated by PMR. She had been progressing well with PT and OT while waiting on inpatient rehab. 03/07 Patient has complaints of chest pain and shortness of breath. She was hemodynamically stable with BP of 107/56 and P of 72 on 2L NC. CXR was ordered which showed patchy bibasilar opacities, likely atelectasis. CBC showed leukocytosis of 42.3 and Hg of 7.0. BMP showed Na 127, K 6.1, Cl 97, bicarb 14, BUN 43, Cr 1.12. Troponin showed 0.03 with EKG showing Q waves and no ST elevation. She was treated with 1L NS bolus, IV insulin/D50, Albuterol and sodium bicarbonate. Digoxin level was 1.1. Patient was re-evaluated around 2PM. Her BP had dropped to 78/47, heart rate in the 60s. She appeared more lethargic and states her chest pain had resolved. She did complain of dizziness and shortness of breath. She was bolused another 1L NS. BP improved to 80's/50's. Given her change in mental status and hypotensive nature, Dr. Willis was called and accepted the patient for transfuse back to ICU. 03/08 Patient was seen and examined. She reports continued shortness of breath and RLQ abdominal pain. She continues to have bouts of watery diarrhea with blood today. She was started on Levophed last night around 1AM, currently on 15 mcg/kg/min. Currently on D5W at 75 cc/hr. Hemoglobin improved from 5.4 to 8.3 after 2 unit PRBC, 6.0 on repeat. Leukocytosis improved from 41.3 to 31. ABG shows pH 7.47, pCO2 27. CMP shows a 127, bicarb 19, BUN 61, Cr 1.51, Ca 6.2, albumin of 2.1, total bilirubin 2.3, AST 2140, ALT 1613. Lactic acid persistently elevated at 5.7 despite IV hydration. General: ill appearing, mild distress due to pain, appears at stated age, lethargic Derm: warm, dry Head: atraumatic, normocephalic, symmetric Eyes: EOMI, no lid lag, anicteric sclera Mouth: no lip lesion, dry membranes moist Cardiovascular: S1S2 irregular, no murmur Lungs: Decreased BS bilateral, no rhonchi, no rales, no accessory muscle use Ext: no gross muscle atrophy, 1+ LE edema, no contractures Abd: Warren catheter in place. Obese. Tenderness to palpation RLQ without rebound. Back: Midline surgical scar intact. Foul smelling. Serousanguinous discharge. Neuro: Moving all 4 extremities independently, sensation intact to touch BL LE Psych: Alert, oriented, appropriate affect #Septic shock, unknown source of infection. #Lactic acidosis Patient meets sepsis criteria with tachypnea, hypotension, leukocytosis. Maintain MAP > 65. Wean Levophed as tolerated. Continue D5W at 75 cc/hr. Continue Vancomycin and Cefepime (D2) for broad spectrum antibiotic coverage. UA shows large leukocyte esterase. Follow urine and blood cultures. Trend lactic acid until negative. C.difficile ordered. Telemetry monitoring. Infectious disease and Pulmonology/ICU consulted. #Acute blood loss anemia #Right breast hematoma Hg 5.4 to 8.3 this morning after 2 unit PRBC. Repeat Hg 6.0 with additional unit of PRBC ordered. Discontinue Xarelto. CT surgery recommends conservative managment of hematoma. Monitor hemoglobin. Transfuse if Hg < 7. #Abdominal pain #IIeus versus SBO #Hematochezia #Concern for ischemic bowel Keep patient NPO. General surgery consulted. Plans for NG tube for gastric decompression. #Acute kidney injury #Hyponatremia Na 127, BUN 61, Cr 1.51 Renal US shows on hydronephrosis on the R, enlarged cyst in the L kidney measuring up to 8.3 cm. BETHANY likely due to septic shock and hypoNa from poor oral intake. Continue D5W at 75 cc/hr. Nephrology on board. #Hyperkalemia K 5.5 Digoxin level 1.1. IV insulin/D50 ordered and patient currently on sodium bicarbonate drip. #Atrial fibrillation Anticoagulation discontinued due to blood loss. Patient started on Amiodarone drip. DC Cardizem, Digoxin and Atenolol due to hypotension Cardiology on board. #T10 to pelvis decompression with fusion #Post-op pain Management per Orthopedic surgery. Gabapentin, Valium, Flexeril. Decadron. Continue with Dilaudid and Percocet PRN. Patient has no stairs and planning on going home, she has nearby help from family but lives alone. PT and OT consulted. PMR consulted. #Aborted sudden cardiac Cardiology on board. Echocardiogram shows EF 35-40% with moderate MR. #Systolic CHF Echo shows EF 35-40% with severe pulmonary HTN, moderate MR. Patient will need ischemic workup. Patient would benefit from ACEi and Aldactone prior to discharge. Cardiology on board. #Right diaphragmatic paralysis Aggressive pulmonary hygiene. Pulmonology on board. #HLD Statin. #HTN Cardizem, Digoxin and Atenolol due to hypotension. Monitor vitals and adjust medication if necessary. Objective - Vital Signs Vital signs: Vital Signs Temp 97.4 F L 03/08/22 12:36 Pulse 70 03/08/22 13:00 Resp 27 H 03/08/22 13:00 BP 117/44 03/08/22 12:36 Pulse Ox 94 L 03/08/22 13:00 FiO2 40 02/25/22 11:10 Intake & Output 03/07/22 03/08/22 03/08/22 18:59 06:59 18:59 Intake Total 084.709 3469.350 525 Output Total 155 325 179 Balance 760.290 9920.350 346 Weight 137.8 kg Intake: IV 150 900 525 Dextrose 5% in Water 1, 150 900 525 000 ml @ 75 mls/hr IV . [id number] with Sodium Bicarb (1 Meq/ml) 150 ml Rx#:[id number] Intake, IV Titration 6.787 310.350 Amount Norepinephrine 4 mg In 6.787 192.286 Sodium Chloride 0.9% 250 ml @ 0.05 MCG/KG/MIN 27. 146 mls/hr IV .[id number] [facility] Rx#:[id number] Norepinephrine 8 mg In 118.064 Sodium Chloride 0.9% 250 ml @ 0.03 MCG/KG/MIN 8. 272 mls/hr IV .Q24H [facility] Rx#:[id number] Oral 200 Blood Product 0 597 0 Unit 0 Rc Pheresis 2 As3 Unit 310 [id number] Rc Pheresis As-3 Unit 0 287 [id number] Other 150 Rc Pheresis As-3 Unit 150 [id number] Output: Urine 155 325 179 Other: Voiding Method Indwelling Catheter Indwelling Catheter Indwelling Catheter ABP, PAP, CO, CI - Last Documented Arterial Blood Pressure 109/44 - Labs CBC & Chem 7: 03/08/22 10:52 03/08/22 10:52 Labs: Abnormal Lab Results - Last 24 Hours (Table) 03/07/22 03/07/22 03/07/22 Range/Units 13:45 14:52 15:05 WBC (3.8-10.6) k/uL RBC (3.80-5.40) m/uL Hgb (11.4-16.0) gm/dL Hct (34.0-46.0) % RDW (11.5-15.5) % Neutrophils # (1.3-7.7) k/uL Neutrophils # (Manual) (1.3-7.7) k/uL Lymphocytes # (Manual) (1.0-4.8) k/uL Monocytes # (0-1.0) k/uL Monocytes # (Manual) (0-1.0) k/uL Nucleated RBCs (0-0) /100 WBC ABG pH (7.35-7.45) ABG pCO2 28 L (35-45) mmHg ABG pO2 (83-108) mmHg ABG HCO3 18 L (21-25) mmol/L ABG O2 Saturation 99.3 H (94-97) % Sodium (137-145) mmol/L Potassium (3.5-5.1) mmol/L Carbon Dioxide (22-30) mmol/L BUN (7-17) mg/dL Creatinine (0.52-1.04) mg/dL Glucose (74-99) mg/dL POC Glucose (mg/dL) 205 H (70-110) mg/dL Osmolality (280-301) mosm/kg Plasma Lactic Acid Fernando (0.7-2.0) mmol/L Calcium (8.4-10.2) mg/dL Iron (50-170) ug/dL Transferrin (204.0-354.0) mg/dL Ferritin (10.0-291.0) ng/mL Total Bilirubin (0.2-1.3) mg/dL AST (14-36) U/L ALT (4-34) U/L Creatine Kinase (30-135) U/L Total Protein (6.3-8.2) g/dL Albumin (3.5-5.0) g/dL Urine Appearance Turbid H (Clear) Urine Protein 1+ H (Negative) Urine Ketones Trace H (Negative) Urine Blood Moderate H (Negative) Ur Leukocyte Esterase Large H (Negative) Urine RBC 29 H (0-5) /hpf Urine WBC 103 H (0-5) /hpf Urine Bacteria Many H (None) /hpf Urine Mucus Moderate H (None) /hpf Crossmatch 03/07/22 03/07/22 03/07/22 Range/Units 16:19 16:19 16:19 WBC 38.3 H (3.8-10.6) k/uL RBC 1.69 L (3.80-5.40) m/uL Hgb 5.4 L* D (11.4-16.0) gm/dL Hct 15.6 L* (34.0-46.0) % RDW 17.7 H (11.5-15.5) % Neutrophils # (1.3-7.7) k/uL Neutrophils # (Manual) 34.09 H (1.3-7.7) k/uL Lymphocytes # (Manual) (1.0-4.8) k/uL Monocytes # (0-1.0) k/uL Monocytes # (Manual) 1.92 H (0-1.0) k/uL Nucleated RBCs 3 H (0-0) /100 WBC ABG pH (7.35-7.45) ABG pCO2 (35-45) mmHg ABG pO2 (83-108) mmHg ABG HCO3 (21-25) mmol/L ABG O2 Saturation (94-97) % Sodium 126 L (137-145) mmol/L Potassium (3.5-5.1) mmol/L Carbon Dioxide 20 L (22-30) mmol/L BUN 49 H (7-17) mg/dL Creatinine 1.32 H (0.52-1.04) mg/dL Glucose 183 H (74-99) mg/dL POC Glucose (mg/dL) (70-110) mg/dL Osmolality (280-301) mosm/kg Plasma Lactic Acid Fernando 5.9 H* (0.7-2.0) mmol/L Calcium 6.3 L* (8.4-10.2) mg/dL Iron (50-170) ug/dL Transferrin (204.0-354.0) mg/dL Ferritin (10.0-291.0) ng/mL Total Bilirubin 1.4 H (0.2-1.3) mg/dL AST 2295 H (14-36) U/L ALT 1562 H (4-34) U/L Creatine Kinase 244 H (30-135) U/L Total Protein 3.6 L (6.3-8.2) g/dL Albumin 2.0 L (3.5-5.0) g/dL Urine Appearance (Clear) Urine Protein (Negative) Urine Ketones (Negative) Urine Blood (Negative) Ur Leukocyte Esterase (Negative) Urine RBC (0-5) /hpf Urine WBC (0-5) /hpf Urine Bacteria (None) /hpf Urine Mucus (None) /hpf Crossmatch 03/07/22 03/07/22 03/07/22 Range/Units 16:26 16:56 18:48 WBC (3.8-10.6) k/uL RBC (3.80-5.40) m/uL Hgb (11.4-16.0) gm/dL Hct (34.0-46.0) % RDW (11.5-15.5) % Neutrophils # (1.3-7.7) k/uL Neutrophils # (Manual) (1.3-7.7) k/uL Lymphocytes # (Manual) (1.0-4.8) k/uL Monocytes # (0-1.0) k/uL Monocytes # (Manual) (0-1.0) k/uL Nucleated RBCs (0-0) /100 WBC ABG pH (7.35-7.45) ABG pCO2 30 L (35-45) mmHg ABG pO2 124 H (83-108) mmHg ABG HCO3 19 L (21-25) mmol/L ABG O2 Saturation 100.0 H (94-97) % Sodium (137-145) mmol/L Potassium (3.5-5.1) mmol/L Carbon Dioxide (22-30) mmol/L BUN (7-17) mg/dL Creatinine (0.52-1.04) mg/dL Glucose (74-99) mg/dL POC Glucose (mg/dL) 194 H (70-110) mg/dL Osmolality (280-301) mosm/kg Plasma Lactic Acid Fernando (0.7-2.0) mmol/L Calcium (8.4-10.2) mg/dL Iron (50-170) ug/dL Transferrin (204.0-354.0) mg/dL Ferritin (10.0-291.0) ng/mL Total Bilirubin (0.2-1.3) mg/dL AST (14-36) U/L ALT (4-34) U/L Creatine Kinase (30-135) U/L Total Protein (6.3-8.2) g/dL Albumin (3.5-5.0) g/dL Urine Appearance (Clear) Urine Protein (Negative) Urine Ketones (Negative) Urine Blood (Negative) Ur Leukocyte Esterase (Negative) Urine RBC (0-5) /hpf Urine WBC (0-5) /hpf Urine Bacteria (None) /hpf Urine Mucus (None) /hpf Crossmatch See Detail 03/07/22 03/07/22 03/07/22 Range/Units 20:25 20:26 22:00 WBC 41.3 H (3.8-10.6) k/uL RBC 2.29 L (3.80-5.40) m/uL Hgb 6.7 L* (11.4-16.0) gm/dL Hct 20.3 L (34.0-46.0) % RDW 17.5 H (11.5-15.5) % Neutrophils # 36.7 H (1.3-7.7) k/uL Neutrophils # (Manual) (1.3-7.7) k/uL Lymphocytes # (Manual) (1.0-4.8) k/uL Monocytes # 2.5 H (0-1.0) k/uL Monocytes # (Manual) (0-1.0) k/uL Nucleated RBCs (0-0) /100 WBC ABG pH (7.35-7.45) ABG pCO2 (35-45) mmHg ABG pO2 (83-108) mmHg ABG HCO3 (21-25) mmol/L ABG O2 Saturation (94-97) % Sodium (137-145) mmol/L Potassium (3.5-5.1) mmol/L Carbon Dioxide (22-30) mmol/L BUN (7-17) mg/dL Creatinine (0.52-1.04) mg/dL Glucose (74-99) mg/dL POC Glucose (mg/dL) 258 H (70-110) mg/dL Osmolality (280-301) mosm/kg Plasma Lactic Acid Fernando 6.5 H* (0.7-2.0) mmol/L Calcium (8.4-10.2) mg/dL Iron (50-170) ug/dL Transferrin (204.0-354.0) mg/dL Ferritin (10.0-291.0) ng/mL Total Bilirubin (0.2-1.3) mg/dL AST (14-36) U/L ALT (4-34) U/L Creatine Kinase (30-135) U/L Total Protein (6.3-8.2) g/dL Albumin (3.5-5.0) g/dL Urine Appearance (Clear) Urine Protein (Negative) Urine Ketones (Negative) Urine Blood (Negative) Ur Leukocyte Esterase (Negative) Urine RBC (0-5) /hpf Urine WBC (0-5) /hpf Urine Bacteria (None) /hpf Urine Mucus (None) /hpf Crossmatch 03/07/22 03/07/22 03/08/22 Range/Units 22:00 23:05 01:45 WBC (3.8-10.6) k/uL RBC (3.80-5.40) m/uL Hgb (11.4-16.0) gm/dL Hct (34.0-46.0) % RDW (11.5-15.5) % Neutrophils # (1.3-7.7) k/uL Neutrophils # (Manual) (1.3-7.7) k/uL Lymphocytes # (Manual) (1.0-4.8) k/uL Monocytes # (0-1.0) k/uL Monocytes # (Manual) (0-1.0) k/uL Nucleated RBCs (0-0) /100 WBC ABG pH (7.35-7.45) ABG pCO2 (35-45) mmHg ABG pO2 (83-108) mmHg ABG HCO3 (21-25) mmol/L ABG O2 Saturation (94-97) % Sodium 126 L (137-145) mmol/L Potassium (3.5-5.1) mmol/L Carbon Dioxide 20 L (22-30) mmol/L BUN 54 H (7-17) mg/dL Creatinine 1.28 H (0.52-1.04) mg/dL Glucose 223 H (74-99) mg/dL POC Glucose (mg/dL) (70-110) mg/dL Osmolality (280-301) mosm/kg Plasma Lactic Acid Fernando 5.8 H* 5.7 H* (0.7-2.0) mmol/L Calcium 7.0 L (8.4-10.2) mg/dL Iron (50-170) ug/dL Transferrin (204.0-354.0) mg/dL Ferritin (10.0-291.0) ng/mL Total Bilirubin (0.2-1.3) mg/dL AST (14-36) U/L ALT (4-34) U/L Creatine Kinase (30-135) U/L Total Protein (6.3-8.2) g/dL Albumin (3.5-5.0) g/dL Urine Appearance (Clear) Urine Protein (Negative) Urine Ketones (Negative) Urine Blood (Negative) Ur Leukocyte Esterase (Negative) Urine RBC (0-5) /hpf Urine WBC (0-5) /hpf Urine Bacteria (None) /hpf Urine Mucus (None) /hpf Crossmatch 03/08/22 03/08/22 03/08/22 Range/Units 04:14 04:14 04:14 WBC 37.7 H (3.8-10.6) k/uL RBC 2.81 L (3.80-5.40) m/uL Hgb 8.3 L D (11.4-16.0) gm/dL Hct 24.2 L (34.0-46.0) % RDW 17.9 H (11.5-15.5) % Neutrophils # (1.3-7.7) k/uL Neutrophils # (Manual) (1.3-7.7) k/uL Lymphocytes # (Manual) (1.0-4.8) k/uL Monocytes # (0-1.0) k/uL Monocytes # (Manual) (0-1.0) k/uL Nucleated RBCs (0-0) /100 WBC ABG pH (7.35-7.45) ABG pCO2 (35-45) mmHg ABG pO2 (83-108) mmHg ABG HCO3 (21-25) mmol/L ABG O2 Saturation (94-97) % Sodium 126 L (137-145) mmol/L Potassium 5.5 H (3.5-5.1) mmol/L Carbon Dioxide 18 L (22-30) mmol/L BUN 60 H (7-17) mg/dL Creatinine 1.42 H (0.52-1.04) mg/dL Glucose 210 H (74-99) mg/dL POC Glucose (mg/dL) (70-110) mg/dL Osmolality (280-301) mosm/kg Plasma Lactic Acid Fernando (0.7-2.0) mmol/L Calcium 6.8 L (8.4-10.2) mg/dL Iron 40 L (50-170) ug/dL Transferrin 193.0 L (204.0-354.0) mg/dL Ferritin 655.0 H (10.0-291.0) ng/mL Total Bilirubin 2.3 H (0.2-1.3) mg/dL AST 2140 H (14-36) U/L ALT 1613 H (4-34) U/L Creatine Kinase (30-135) U/L Total Protein 3.8 L (6.3-8.2) g/dL Albumin 2.1 L (3.5-5.0) g/dL Urine Appearance (Clear) Urine Protein (Negative) Urine Ketones (Negative) Urine Blood (Negative) Ur Leukocyte Esterase (Negative) Urine RBC (0-5) /hpf Urine WBC (0-5) /hpf Urine Bacteria (None) /hpf Urine Mucus (None) /hpf Crossmatch 03/08/22 03/08/22 03/08/22 Range/Units 06:23 07:41 10:52 WBC (3.8-10.6) k/uL RBC (3.80-5.40) m/uL Hgb (11.4-16.0) gm/dL Hct (34.0-46.0) % RDW (11.5-15.5) % Neutrophils # (1.3-7.7) k/uL Neutrophils # (Manual) (1.3-7.7) k/uL Lymphocytes # (Manual) (1.0-4.8) k/uL Monocytes # (0-1.0) k/uL Monocytes # (Manual) (0-1.0) k/uL Nucleated RBCs (0-0) /100 WBC ABG pH 7.47 H (7.35-7.45) ABG pCO2 27 L (35-45) mmHg ABG pO2 110 H (83-108) mmHg ABG HCO3 20 L (21-25) mmol/L ABG O2 Saturation 99.4 H (94-97) % Sodium 127 L (137-145) mmol/L Potassium (3.5-5.1) mmol/L Carbon Dioxide 19 L (22-30) mmol/L BUN 61 H (7-17) mg/dL Creatinine 1.51 H (0.52-1.04) mg/dL Glucose 241 H (74-99) mg/dL POC Glucose (mg/dL) 193 H (70-110) mg/dL Osmolality (280-301) mosm/kg Plasma Lactic Acid Fenrando (0.7-2.0) mmol/L Calcium 6.2 L* (8.4-10.2) mg/dL Iron (50-170) ug/dL Transferrin (204.0-354.0) mg/dL Ferritin (10.0-291.0) ng/mL Total Bilirubin (0.2-1.3) mg/dL AST (14-36) U/L ALT (4-34) U/L Creatine Kinase (30-135) U/L Total Protein (6.3-8.2) g/dL Albumin (3.5-5.0) g/dL Urine Appearance (Clear) Urine Protein (Negative) Urine Ketones (Negative) Urine Blood (Negative) Ur Leukocyte Esterase (Negative) Urine RBC (0-5) /hpf Urine WBC (0-5) /hpf Urine Bacteria (None) /hpf Urine Mucus (None) /hpf Crossmatch 03/08/22 03/08/22 03/08/22 Range/Units 10:52 10:52 12:49 WBC 31.0 H (3.8-10.6) k/uL RBC 2.02 L (3.80-5.40) m/uL Hgb 6.0 L* D (11.4-16.0) gm/dL Hct 18.2 L* (34.0-46.0) % RDW 19.8 H (11.5-15.5) % Neutrophils # (1.3-7.7) k/uL Neutrophils # (Manual) 29.10 H (1.3-7.7) k/uL Lymphocytes # (Manual) 0.93 L (1.0-4.8) k/uL Monocytes # (0-1.0) k/uL Monocytes # (Manual) 1.24 H (0-1.0) k/uL Nucleated RBCs 3 H (0-0) /100 WBC ABG pH (7.35-7.45) ABG pCO2 (35-45) mmHg ABG pO2 (83-108) mmHg ABG HCO3 (21-25) mmol/L ABG O2 Saturation (94-97) % Sodium (137-145) mmol/L Potassium (3.5-5.1) mmol/L Carbon Dioxide (22-30) mmol/L BUN (7-17) mg/dL Creatinine (0.52-1.04) mg/dL Glucose (74-99) mg/dL POC Glucose (mg/dL) 244 H (70-110) mg/dL Osmolality 302 H (280-301) mosm/kg Plasma Lactic Acid Fernando (0.7-2.0) mmol/L Calcium (8.4-10.2) mg/dL Iron (50-170) ug/dL Transferrin (204.0-354.0) mg/dL Ferritin (10.0-291.0) ng/mL Total Bilirubin (0.2-1.3) mg/dL AST (14-36) U/L ALT (4-34) U/L Creatine Kinase (30-135) U/L Total Protein (6.3-8.2) g/dL Albumin (3.5-5.0) g/dL Urine Appearance (Clear) Urine Protein (Negative) Urine Ketones (Negative) Urine Blood (Negative) Ur Leukocyte Esterase (Negative) Urine RBC (0-5) /hpf Urine WBC (0-5) /hpf Urine Bacteria (None) /hpf Urine Mucus (None) /hpf Crossmatch Microbiology - Last 24 Hours (Table) 03/07/22 13:45 Urine Culture - Preliminary Urine,Voided
[2022-03-08] MEDS: AMIODARONE 450 MG in DEXTROSE 5% IN WATER 250 ML IV SCH ×2 (14:11)
[2022-03-08] MEDS: HYDROmorphone 0.5 MG/0.5 ML SYRINGE IVP PRN ×2 (14:19→21:58)
--- NOTE | 2022-03-08 14:40 | XR ---
EXAMINATION TYPE: XR abdomen 1V DATE OF EXAM: 03/08/2022 2:32 PM CLINICAL HISTORY: NG tube placement. TECHNIQUE: Single supine KUB image of the abdomen is obtained. COMPARISON: CT abdomen and pelvis from one day earlier. FINDINGS: Nasogastric tube is seen projecting below diaphragm extending to right of midline. Gas prom inent small bowel loop in the right midabdomen is noted. There is elevated right hemidiaphragm redemo nstrated. Extensive surgical change to the thoracolumbar spine is again seen. There are persistent Ov erlying vertical oriented rtio redemonstrated. Additional surgical clips overlying right abdomen a gain seen. IMPRESSION: As above.
[2022-03-08] MEDS: VANCOMYCIN 2,000 MG in SODIUM CHLORIDE 0.9% 500 ML 500 ML IVPB SCH (15:11)
[2022-03-08 15:55] LABS: Anisocytosis Slight; HCT 22.8 % (34.0-46.0); Hypochromasia Slight; MCH 30.4 pg (25.0-35.0); MCHC 34.8 g/dL (31.0-37.0); MCV 87.3 fL (80.0-100.0); Mean Platelet Volume 11.3; Platelet Count 193 k/uL (150-450); Poikilocytosis Slight; RBC 2.62 m/uL (3.80-5.40); RDW 17.4 % (11.5-15.5)
[2022-03-08 17:03] LABS: Band Neutrophils % 1 %; Lymphocytes # (M) 1.24 k/uL (1.0-4.8); Monocytes # (M) 1.55 k/uL (0-1.0); Neutrophils % (M) 90 %; Nucleated Red Blood Cells 0 /100 WBC (0-0); Polychromasia Present; Total Cells Counted 100
[2022-03-08 17:08] LABS: Glucose,Whole Blood 285 mg/dL (70-110)
--- NOTE | 2022-03-08 17:22 | P.PN ---
Progress Note - Text Progress Note Date: 03/08/22 Pt s/e this afternoon. Doing OK. BP much better. Per nursing she had a bloody BM and HgB dropped so she got two uPRBC for this. General sx is on. Spoke with Dr. Coulter about hematoma, agree with assessment. Spoke with Dr. Uriarte agree with mgt. She is getting bicarb, fluids, light BP support in levo and labs are being closely monitored. She is on ABX and ID is consulted. Nephro is managing BETHANY and PCC is managing sepsis and pulmonary status. We will continue to monitor closely. We have her on schedule for tomorrow afternoon if she is stable, for washout of her back as she continues to drain from her wound which should be more closed by now. Family is at bedside and has been updated by phone as well. They are on board with plan. She understands the risks of surgery as well.
[2022-03-08 21:12] LABS: Glucose,Whole Blood 299 mg/dL (70-110)
--- NOTE | 2022-03-08 23:33 | P.CONS ---
History of Present Illness - Reason for Consult Consult date: 03/08/22 Sepsis Requesting physician: Tia Ortez - Chief Complaint Weakness x few days - History of Present Illness Patient is a 71-year-old female with a past medical history difficult for atrial fibrillation flutter hypertension hyperlipidemia hypothyroidism right breast cancer electively admitted to the hospital more than 2 weeks ago 02/24/2022 for T10 to lumbar spine revision decompression and posterior lateral interbody fusion patient apparently did lost her pulse at the end of her surgery did require ACLS protocol and resuscitation subsequently the patient was transferred to the ICU patient was subsequently successfully extubated and transferred out of ICU on March 04, 2022 patient was noticed to have worsening of her condition on 03/07/2022 with the patient become hypotensive did have lactic acidosis requiring fluid resuscitation as well as pressor support and the patient was sent back to the ICU patient did have a CT of abdominal pelvis compl eted with evidence of small bowel obstruction and did have a right breast edema concerning for possible hematoma patient has been afebrile she did have elevated white count of 41.3 yesterday however they seem to be slightly down to 31,000 also noticed to have a low hemoglobin of 5.4 did requiring transfusion and the hemoglobin is above 8 today, patient did have a positive UA, patient also noticed to have a diarrhea and some dark stool however stool for C. difficile was checked which came back negative patient is currently being empirically treated with the cefepime and vancomycin patient is also on dexamethasone infectious he was consulted for concern for possible sepsis. Patient by my evaluation is awake and alert patient denies having any headache or URI symptoms denies any chest pain some shortness of breath minimal cough nausea but no vomiting no abdominal pain did have significant diarrhea has been shown earlier did have a indwelling Warren catheter with the patient has for a few days now Review of Systems Positive point has been mentioned in the HPI rest of the systems are negative Past Medical History Past Medical History: Atrial Fibrillation, Atrial Flutter, Cancer, Chest Pain / Angina, GERD/Reflux, Hyperlipidemia, Hypertension, Osteoarthritis (OA), Thyroid Disorder Additional Past Medical History / Comment(s): Rr breast cancer, hiatal hernia, chronic low back pain. partially paralyzed rt diaphragm, infection rt breast after surgery History of Any Multi-Drug Resistant Organisms: None Reported Past Surgical History: Back Surgery, Bladder Surgery, Breast Surgery, Cardiac Ablation, Cholecystectomy, EPS, Heart Catheterization, Hernia Repair, Hysterectomy, Joint Replacement, Orthopedic Surgery Additional Past Surgical History / Comment(s): R breast core bx/needle loc, R breast lumpectomy/axillary node dissection, CHATO, cardioversion, low back surgeries x3 with plate/screws, total R knee x3, R foot multiple surgeries for spur/neuromas, L foot cystectomy, R elbow injury w/ surgery, R wrist ganglion cystectomy, partial thyroidectomy, 4 abdominal hernia repairs, bladder suspension, colonoscopy, loki cataract, laser loki eye surgery 01/31/22 Past Anesthesia/Blood Transfusion Reactions: Previous Problems w/ Anesthesia, Postoperative Nausea & Vomiting (PONV) Additional Past Anesthesia/Blood Transfusion Reaction / Comm: On ventilator for 2 days after cardiac ablation d/t diaphragm paralysis-rt side Past Psychological History: Depression Additional Psychological History / Comment(s): . Smoking Status: Never smoker Past Alcohol Use History: Rare Past Drug Use History: None Reported - Past Family History Father Family Medical History: Cancer Additional Family Medical History / Comment(s): . Mother Family Medical History: Cancer, Deep Vein Thrombosis (DVT) Additional Family Medical History / Comment(s): Skin and breast cancer. Medications and Allergies Home Medications Medication Instructions Recorded Confirmed Type Levothyroxine Sodium [Synthroid] 88 mcg PO QAM 02/19/14 02/20/22 History HYDROcodone/APAP 10-325MG [[place] 1 tab PO Q4H PRN 12/23/18 02/20/22 History 10-325] Atorvastatin [Lipitor] 10 mg PO DAILY #30 tab 04/10/19 02/20/22 Rx atenoloL [Tenormin] 100 mg PO QAM 05/10/20 02/20/22 History Amlodipine Besylate/Valsartan 1 each PO QAM 02/02/22 02/20/22 History [Exforge 5-320 mg Tablet] DULoxetine HCL [Cymbalta] 60 mg PO DAILY 02/02/22 02/20/22 History Rivaroxaban [Xarelto] 20 mg PO HS 02/02/22 02/20/22 History Rosuvastatin Calcium 10 mg PO QAM 02/02/22 02/20/22 History Allergies Allergy/AdvReac Type Severity Reaction Status Date / Time cephalexin monohydrate Allergy Mild Rash/Hives Verified 02/24/22 05:56 [From Keflex] Iodinated Contrast Media Allergy Mild Rash/Hives Verified 02/24/22 05:56 [Iodinated Contrast Media - IV Dye] Sulfa (Sulfonamide Allergy Mild Rash/Hives Verified 02/24/22 05:56 Antibiotics) adhesive tape AdvReac Severe Rash/Hives Uncoded 02/24/22 05:56 Physical Exam Vitals: Vital Signs Temp Pulse Resp BP Pulse Ox 03/08/22 14:44 97.2 F L 62 28 H 123/45 95 03/08/22 13:00 70 27 H 94 L 03/08/22 12:36 97.4 F L 64 25 H 117/44 94 L 03/08/22 12:30 69 28 H 96 03/08/22 12:16 97.2 F L 61 26 H 110/42 95 03/08/22 12:07 97.5 F L 64 25 H 112/43 96 03/08/22 12:00 97.2 F L 57 L 26 H 94 L 03/08/22 11:30 57 L 24 93 L 03/08/22 11:00 58 L 26 H 96 03/08/22 10:30 60 22 91 L 03/08/22 10:00 58 L 23 99 03/08/22 09:30 61 17 100 03/08/22 09:00 79 23 100 03/08/22 08:30 63 27 H 99 03/08/22 08:00 98.2 F 64 24 100 03/08/22 07:30 64 27 H 100 03/08/22 07:00 65 22 100 03/08/22 06:30 64 22 100 03/08/22 06:00 64 24 100 03/08/22 05:30 64 20 99 03/08/22 05:00 64 23 100 03/08/22 04:30 65 28 H 99 03/08/22 04:00 97.0 F L 63 19 100 03/08/22 03:30 57 L 22 99 03/08/22 03:00 66 16 100 03/08/22 02:30 63 20 100 03/08/22 02:08 63 20 114/55 100 03/08/22 02:00 64 24 100 03/08/22 01:30 63 32 H 100 03/08/22 01:00 63 23 99 03/08/22 00:30 63 21 95 03/08/22 00:11 97.1 F L 62 19 102/53 99 03/08/22 00:00 97.1 F L 62 19 100 03/07/22 23:51 97.1 F L 63 19 91/51 100 03/07/22 23:30 63 21 98 03/07/22 23:00 63 31 H 97 03/07/22 22:30 62 22 94 L 03/07/22 22:00 61 16 99 03/07/22 21:30 61 19 97 03/07/22 21:10 97.1 F L 60 20 110/51 100 03/07/22 21:00 60 19 100 03/07/22 20:50 97.1 F L 60 15 114/54 100 03/07/22 20:30 61 20 89/43 100 03/07/22 20:00 97.1 F L 61 20 92/69 91 L 03/07/22 19:12 97.1 F L 62 14 103/52 94 L 03/07/22 19:00 62 21 98 03/07/22 18:52 97.1 F L 62 18 103/51 94 L 03/07/22 18:44 96.9 F L 62 18 101/50 95 03/07/22 18:00 64 22 95 03/07/22 17:00 62 18 97 03/07/22 16:00 96.9 F L 61 20 98/54 99 Intake and Output 03/08/22 03/08/22 03/08/22 06:59 14:59 22:59 Intake Total 8594.878 1076 Output Total 130 179 Balance 1037.867 906 Intake: IV 600 525 Dextrose 5% in Water 1, 600 525 000 ml @ 75 mls/hr IV . [id number] MEHUL with Sodium Bicarb (1 Meq/ml) 150 ml Rx#:[id number] Intake, IV Titration 257.867 Amount Norepinephrine 4 mg In 139.803 Sodium Chloride 0.9% 250 ml @ 0.05 MCG/KG/MIN 27. 146 mls/hr IV .[id number] MEHUL Rx#:[id number] Norepinephrine 8 mg In 118.064 Sodium Chloride 0.9% 250 ml @ 0.03 MCG/KG/MIN 8. 272 mls/hr IV .Q24H MEHUL Rx#:[id number] Blood Product 310 310 Rc As-1 Unit 310 [id number] Rc Pheresis 2 As3 Unit 310 [id number] Other 250 Rc As-1 Unit 250 [id number] Output: Urine 130 179 Other: Voiding Method Indwelling Catheter Indwelling Catheter Weight 137.8 kg ABP, PAP, CO, CI - Last 8 Hours Arterial Blood Pressure 109/44 Arterial Blood Pressure 86/37 Arterial Blood Pressure 114/42 Arterial Blood Pressure 92/41 Arterial Blood Pressure 143/47 Arterial Blood Pressure 119/45 Arterial Blood Pressure 150/47 Arterial Blood Pressure 133/45 Arterial Blood Pressure 154/54 Arterial Blood Pressure 131/45 Arterial Blood Pressure 116/47 Arterial Blood Pressure 114/45 GENERAL DESCRIPTION: Elderly female lying in bed, no distress. No tachypnea or accessory muscle of respiration use. HEENT: Shows Pallor , no scleral icterus. Oral mucous membrane is dry. No pharyngeal erythema or thrush NECK: Trachea central, no thyromegaly. LUNGS: Unlabored breathing. Decreased as of the base. No wheeze or crackle. HEART: S1, S2, regular rate and rhythm. No loud murmur ABDOMEN: Soft, no tenderness , guarding or rigidity, no organomegaly EXTREMITIES: Diffuse swelling to lower extremity no redness. SKIN: No rash, no masses palpable. NEUROLOGICAL: The patient is awake, alert, oriented x3, mood and affect normal. Results CBC & Chem 7: 03/31/22 06:03 03/30/22 09:50 Labs: Abnormal Lab Results - Last 24 Hours (Table) 03/07/22 03/07/22 03/07/22 Range/Units 13:45 16:19 16:19 WBC 38.3 H (3.8-10.6) k/uL RBC 1.69 L (3.80-5.40) m/uL Hgb 5.4 L* D (11.4-16.0) gm/dL Hct 15.6 L* (34.0-46.0) % RDW 17.7 H (11.5-15.5) % Neutrophils # (1.3-7.7) k/uL Neutrophils # (Manual) 34.09 H (1.3-7.7) k/uL Lymphocytes # (Manual) (1.0-4.8) k/uL Monocytes # (0-1.0) k/uL Monocytes # (Manual) 1.92 H (0-1.0) k/uL Nucleated RBCs 3 H (0-0) /100 WBC ABG pH (7.35-7.45) ABG pCO2 (35-45) mmHg ABG pO2 (83-108) mmHg ABG HCO3 (21-25) mmol/L ABG O2 Saturation (94-97) % Sodium (137-145) mmol/L Potassium (3.5-5.1) mmol/L Carbon Dioxide (22-30) mmol/L BUN (7-17) mg/dL Creatinine (0.52-1.04) mg/dL Glucose (74-99) mg/dL POC Glucose (mg/dL) (70-110) mg/dL Osmolality (280-301) mosm/kg Plasma Lactic Acid Fernando 5.9 H* (0.7-2.0) mmol/L Calcium (8.4-10.2) mg/dL Iron (50-170) ug/dL Transferrin (204.0-354.0) mg/dL Ferritin (10.0-291.0) ng/mL Total Bilirubin (0.2-1.3) mg/dL AST (14-36) U/L ALT (4-34) U/L Creatine Kinase (30-135) U/L Total Protein (6.3-8.2) g/dL Albumin (3.5-5.0) g/dL Urine Appearance Turbid H (Clear) Urine Protein 1+ H (Negative) Urine Ketones Trace H (Negative) Urine Blood Moderate H (Negative) Ur Leukocyte Esterase Large H (Negative) Urine RBC 29 H (0-5) /hpf Urine WBC 103 H (0-5) /hpf Urine Bacteria Many H (None) /hpf Urine Mucus Moderate H (None) /hpf Crossmatch 03/07/22 03/07/22 03/07/22 Range/Units 16:19 16:26 16:56 WBC (3.8-10.6) k/uL RBC (3.80-5.40) m/uL Hgb (11.4-16.0) gm/dL Hct (34.0-46.0) % RDW (11.5-15.5) % Neutrophils # (1.3-7.7) k/uL Neutrophils # (Manual) (1.3-7.7) k/uL Lymphocytes # (Manual) (1.0-4.8) k/uL Monocytes # (0-1.0) k/uL Monocytes # (Manual) (0-1.0) k/uL Nucleated RBCs (0-0) /100 WBC ABG pH (7.35-7.45) ABG pCO2 30 L (35-45) mmHg ABG pO2 124 H (83-108) mmHg ABG HCO3 19 L (21-25) mmol/L ABG O2 Saturation 100.0 H (94-97) % Sodium 126 L (137-145) mmol/L Potassium (3.5-5.1) mmol/L Carbon Dioxide 20 L (22-30) mmol/L BUN 49 H (7-17) mg/dL Creatinine 1.32 H (0.52-1.04) mg/dL Glucose 183 H (74-99) mg/dL POC Glucose (mg/dL) (70-110) mg/dL Osmolality (280-301) mosm/kg Plasma Lactic Acid Fernando (0.7-2.0) mmol/L Calcium 6.3 L* (8.4-10.2) mg/dL Iron (50-170) ug/dL Transferrin (204.0-354.0) mg/dL Ferritin (10.0-291.0) ng/mL Total Bilirubin 1.4 H (0.2-1.3) mg/dL AST 2295 H (14-36) U/L ALT 1562 H (4-34) U/L Creatine Kinase 244 H (30-135) U/L Total Protein 3.6 L (6.3-8.2) g/dL Albumin 2.0 L (3.5-5.0) g/dL Urine Appearance (Clear) Urine Protein (Negative) Urine Ketones (Negative) Urine Blood (Negative) Ur Leukocyte Esterase (Negative) Urine RBC (0-5) /hpf Urine WBC (0-5) /hpf Urine Bacteria (None) /hpf Urine Mucus (None) /hpf Crossmatch See Detail 03/07/22 03/07/22 03/07/22 Range/Units 18:48 20:25 20:26 WBC (3.8-10.6) k/uL RBC (3.80-5.40) m/uL Hgb (11.4-16.0) gm/dL Hct (34.0-46.0) % RDW (11.5-15.5) % Neutrophils # (1.3-7.7) k/uL Neutrophils # (Manual) (1.3-7.7) k/uL Lymphocytes # (Manual) (1.0-4.8) k/uL Monocytes # (0-1.0) k/uL Monocytes # (Manual) (0-1.0) k/uL Nucleated RBCs (0-0) /100 WBC ABG pH (7.35-7.45) ABG pCO2 (35-45) mmHg ABG pO2 (83-108) mmHg ABG HCO3 (21-25) mmol/L ABG O2 Saturation (94-97) % Sodium (137-145) mmol/L Potassium (3.5-5.1) mmol/L Carbon Dioxide (22-30) mmol/L BUN (7-17) mg/dL Creatinine (0.52-1.04) mg/dL Glucose (74-99) mg/dL POC Glucose (mg/dL) 194 H 258 H (70-110) mg/dL Osmolality (280-301) mosm/kg Plasma Lactic Acid Fernando 6.5 H* (0.7-2.0) mmol/L Calcium (8.4-10.2) mg/dL Iron (50-170) ug/dL Transferrin (204.0-354.0) mg/dL Ferritin (10.0-291.0) ng/mL Total Bilirubin (0.2-1.3) mg/dL AST (14-36) U/L ALT (4-34) U/L Creatine Kinase (30-135) U/L Total Protein (6.3-8.2) g/dL Albumin (3.5-5.0) g/dL Urine Appearance (Clear) Urine Protein (Negative) Urine Ketones (Negative) Urine Blood (Negative) Ur Leukocyte Esterase (Negative) Urine RBC (0-5) /hpf Urine WBC (0-5) /hpf Urine Bacteria (None) /hpf Urine Mucus (None) /hpf Crossmatch 03/07/22 03/07/22 03/07/22 Range/Units 22:00 22:00 23:05 WBC 41.3 H (3.8-10.6) k/uL RBC 2.29 L (3.80-5.40) m/uL Hgb 6.7 L* (11.4-16.0) gm/dL Hct 20.3 L (34.0-46.0) % RDW 17.5 H (11.5-15.5) % Neutrophils # 36.7 H (1.3-7.7) k/uL Neutrophils # (Manual) (1.3-7.7) k/uL Lymphocytes # (Manual) (1.0-4.8) k/uL Monocytes # 2.5 H (0-1.0) k/uL Monocytes # (Manual) (0-1.0) k/uL Nucleated RBCs (0-0) /100 WBC ABG pH (7.35-7.45) ABG pCO2 (35-45) mmHg ABG pO2 (83-108) mmHg ABG HCO3 (21-25) mmol/L ABG O2 Saturation (94-97) % Sodium 126 L (137-145) mmol/L Potassium (3.5-5.1) mmol/L Carbon Dioxide 20 L (22-30) mmol/L BUN 54 H (7-17) mg/dL Creatinine 1.28 H (0.52-1.04) mg/dL Glucose 223 H (74-99) mg/dL POC Glucose (mg/dL) (70-110) mg/dL Osmolality (280-301) mosm/kg Plasma Lactic Acid Fernando 5.8 H* (0.7-2.0) mmol/L Calcium 7.0 L (8.4-10.2) mg/dL Iron (50-170) ug/dL Transferrin (204.0-354.0) mg/dL Ferritin (10.0-291.0) ng/mL Total Bilirubin (0.2-1.3) mg/dL AST (14-36) U/L ALT (4-34) U/L Creatine Kinase (30-135) U/L Total Protein (6.3-8.2) g/dL Albumin (3.5-5.0) g/dL Urine Appearance (Clear) Urine Protein (Negative) Urine Ketones (Negative) Urine Blood (Negative) Ur Leukocyte Esterase (Negative) Urine RBC (0-5) /hpf Urine WBC (0-5) /hpf Urine Bacteria (None) /hpf Urine Mucus (None) /hpf Crossmatch 03/08/22 03/08/22 03/08/22 Range/Units 01:45 04:14 04:14 WBC 37.7 H (3.8-10.6) k/uL RBC 2.81 L (3.80-5.40) m/uL Hgb 8.3 L D (11.4-16.0) gm/dL Hct 24.2 L (34.0-46.0) % RDW 17.9 H (11.5-15.5) % Neutrophils # (1.3-7.7) k/uL Neutrophils # (Manual) (1.3-7.7) k/uL Lymphocytes # (Manual) (1.0-4.8) k/uL Monocytes # (0-1.0) k/uL Monocytes # (Manual) (0-1.0) k/uL Nucleated RBCs (0-0) /100 WBC ABG pH (7.35-7.45) ABG pCO2 (35-45) mmHg ABG pO2 (83-108) mmHg ABG HCO3 (21-25) mmol/L ABG O2 Saturation (94-97) % Sodium (137-145) mmol/L Potassium (3.5-5.1) mmol/L Carbon Dioxide (22-30) mmol/L BUN (7-17) mg/dL Creatinine (0.52-1.04) mg/dL Glucose (74-99) mg/dL POC Glucose (mg/dL) (70-110) mg/dL Osmolality (280-301) mosm/kg Plasma Lactic Acid Fernando 5.7 H* (0.7-2.0) mmol/L Calcium (8.4-10.2) mg/dL Iron 40 L (50-170) ug/dL Transferrin 193.0 L (204.0-354.0) mg/dL Ferritin 655.0 H (10.0-291.0) ng/mL Total Bilirubin (0.2-1.3) mg/dL AST (14-36) U/L ALT (4-34) U/L Creatine Kinase (30-135) U/L Total Protein (6.3-8.2) g/dL Albumin (3.5-5.0) g/dL Urine Appearance (Clear) Urine Protein (Negative) Urine Ketones (Negative) Urine Blood (Negative) Ur Leukocyte Esterase (Negative) Urine RBC (0-5) /hpf Urine WBC (0-5) /hpf Urine Bacteria (None) /hpf Urine Mucus (None) /hpf Crossmatch 03/08/22 03/08/22 03/08/22 Range/Units 04:14 06:23 07:41 WBC (3.8-10.6) k/uL RBC (3.80-5.40) m/uL Hgb (11.4-16.0) gm/dL Hct (34.0-46.0) % RDW (11.5-15.5) % Neutrophils # (1.3-7.7) k/uL Neutrophils # (Manual) (1.3-7.7) k/uL Lymphocytes # (Manual) (1.0-4.8) k/uL Monocytes # (0-1.0) k/uL Monocytes # (Manual) (0-1.0) k/uL Nucleated RBCs (0-0) /100 WBC ABG pH 7.47 H (7.35-7.45) ABG pCO2 27 L (35-45) mmHg ABG pO2 110 H (83-108) mmHg ABG HCO3 20 L (21-25) mmol/L ABG O2 Saturation 99.4 H (94-97) % Sodium 126 L (137-145) mmol/L Potassium 5.5 H (3.5-5.1) mmol/L Carbon Dioxide 18 L (22-30) mmol/L BUN 60 H (7-17) mg/dL Creatinine 1.42 H (0.52-1.04) mg/dL Glucose 210 H (74-99) mg/dL POC Glucose (mg/dL) 193 H (70-110) mg/dL Osmolality (280-301) mosm/kg Plasma Lactic Acid Fernando (0.7-2.0) mmol/L Calcium 6.8 L (8.4-10.2) mg/dL Iron (50-170) ug/dL Transferrin (204.0-354.0) mg/dL Ferritin (10.0-291.0) ng/mL Total Bilirubin 2.3 H (0.2-1.3) mg/dL AST 2140 H (14-36) U/L ALT 1613 H (4-34) U/L Creatine Kinase (30-135) U/L Total Protein 3.8 L (6.3-8.2) g/dL Albumin 2.1 L (3.5-5.0) g/dL Urine Appearance (Clear) Urine Protein (Negative) Urine Ketones (Negative) Urine Blood (Negative) Ur Leukocyte Esterase (Negative) Urine RBC (0-5) /hpf Urine WBC (0-5) /hpf Urine Bacteria (None) /hpf Urine Mucus (None) /hpf Crossmatch 03/08/22 03/08/22 03/08/22 Range/Units 10:52 10:52 10:52 WBC 31.0 H (3.8-10.6) k/uL RBC 2.02 L (3.80-5.40) m/uL Hgb 6.0 L* D (11.4-16.0) gm/dL Hct 18.2 L* (34.0-46.0) % RDW 19.8 H (11.5-15.5) % Neutrophils # (1.3-7.7) k/uL Neutrophils # (Manual) 29.10 H (1.3-7.7) k/uL Lymphocytes # (Manual) 0.93 L (1.0-4.8) k/uL Monocytes # (0-1.0) k/uL Monocytes # (Manual) 1.24 H (0-1.0) k/uL Nucleated RBCs 3 H (0-0) /100 WBC ABG pH (7.35-7.45) ABG pCO2 (35-45) mmHg ABG pO2 (83-108) mmHg ABG HCO3 (21-25) mmol/L ABG O2 Saturation (94-97) % Sodium 127 L (137-145) mmol/L Potassium (3.5-5.1) mmol/L Carbon Dioxide 19 L (22-30) mmol/L BUN 61 H (7-17) mg/dL Creatinine 1.51 H (0.52-1.04) mg/dL Glucose 241 H (74-99) mg/dL POC Glucose (mg/dL) (70-110) mg/dL Osmolality 302 H (280-301) mosm/kg Plasma Lactic Acid Fernando (0.7-2.0) mmol/L Calcium 6.2 L* (8.4-10.2) mg/dL Iron (50-170) ug/dL Transferrin (204.0-354.0) mg/dL Ferritin (10.0-291.0) ng/mL Total Bilirubin (0.2-1.3) mg/dL AST (14-36) U/L ALT (4-34) U/L Creatine Kinase (30-135) U/L Total Protein (6.3-8.2) g/dL Albumin (3.5-5.0) g/dL Urine Appearance (Clear) Urine Protein (Negative) Urine Ketones (Negative) Urine Blood (Negative) Ur Leukocyte Esterase (Negative) Urine RBC (0-5) /hpf Urine WBC (0-5) /hpf Urine Bacteria (None) /hpf Urine Mucus (None) /hpf Crossmatch 03/08/22 Range/Units 12:49 WBC (3.8-10.6) k/uL RBC (3.80-5.40) m/uL Hgb (11.4-16.0) gm/dL Hct (34.0-46.0) % RDW (11.5-15.5) % Neutrophils # (1.3-7.7) k/uL Neutrophils # (Manual) (1.3-7.7) k/uL Lymphocytes # (Manual) (1.0-4.8) k/uL Monocytes # (0-1.0) k/uL Monocytes # (Manual) (0-1.0) k/uL Nucleated RBCs (0-0) /100 WBC ABG pH (7.35-7.45) ABG pCO2 (35-45) mmHg ABG pO2 (83-108) mmHg ABG HCO3 (21-25) mmol/L ABG O2 Saturation (94-97) % Sodium (137-145) mmol/L Potassium (3.5-5.1) mmol/L Carbon Dioxide (22-30) mmol/L BUN (7-17) mg/dL Creatinine (0.52-1.04) mg/dL Glucose (74-99) mg/dL POC Glucose (mg/dL) 244 H (70-110) mg/dL Osmolality (280-301) mosm/kg Plasma Lactic Acid Fernando (0.7-2.0) mmol/L Calcium (8.4-10.2) mg/dL Iron (50-170) ug/dL Transferrin (204.0-354.0) mg/dL Ferritin (10.0-291.0) ng/mL Total Bilirubin (0.2-1.3) mg/dL AST (14-36) U/L ALT (4-34) U/L Creatine Kinase (30-135) U/L Total Protein (6.3-8.2) g/dL Albumin (3.5-5.0) g/dL Urine Appearance (Clear) Urine Protein (Negative) Urine Ketones (Negative) Urine Blood (Negative) Ur Leukocyte Esterase (Negative) Urine RBC (0-5) /hpf Urine WBC (0-5) /hpf Urine Bacteria (None) /hpf Urine Mucus (None) /hpf Crossmatch Microbiology - Last 24 Hours (Table) 03/07/22 13:45 Urine Culture - Preliminary Urine,Voided Assessment and Plan (1) Sepsis Current Visit: Yes Status: Acute Code(s): A41.9 - SEPSIS, UNSPECIFIED ORGANISM SNOMED Code(s): 81937640 Plan: 1patient with SIRS/sepsis in this patient who has been in the hospital for 2 weeks with elective admission to the hospital for thoracolumbar spine revision did have a cardiac arrest requiring resuscitation now with evidence of significant hypertension ileus and elevated white count source possible UTI versus abdominal wound could be related to the steroid the patient has been on keeping in mind the process started in the hospital will need to cover for the resistant gram-positive as well as gram-negative. 2blood and urine cultures will be followed 3-patient to continue with cefepime and vancomycin while watching her kidney function closely as well as cultures We will follow on clinical condition and cultures to further adjust medication if needed Thank you for this consultation will follow this patient along with you Time with Patient: Greater than 30
[2022-03-09] MEDS: ACETAMINOPHEN TAB 325 MG TAB PO SCH ×4 (00:58→17:44)
[2022-03-09] MEDS: DEXAMETHASONE SOD PHOSPHATE 4 MG/ML 1 ML VIAL IVP SCH ×3 (01:07→17:44)
[2022-03-09] MEDS: HYDROmorphone 1 MG/ML 1 ML SYRINGE IVP PRN ×2 (01:08→21:29)
[2022-03-09] MEDS: CEFEPIME 2 GM in SODIUM CHLORIDE 0.9% 100 ML IVPB SCH ×2 (01:09→11:45)
[2022-03-09] MEDS: DEXTROSE 5% IN WATER 1,000 ML with SODIUM BICARB (1 MEQ/ML) 150 ML IV SCH (01:20)
[2022-03-09 02:16] LABS: Anisocytosis Slight; Hypochromasia Slight; MCHC 34.7 g/dL (31.0-37.0); MCV 86.4 fL (80.0-100.0); Mean Platelet Volume 10.5; Platelet Count 131 k/uL (150-450); Poikilocytosis Slight; RBC 2.19 m/uL (3.80-5.40); RDW 17.7 % (11.5-15.5); WBC 23.9 k/uL (3.8-10.6)
[2022-03-09 02:27] LABS: ALT 740 U/L (4-34); AST 586 U/L (14-36); African American GFR (CKD) 50 (>60 ml/min/1.73 sqM); Albumin 2.3 g/dL (3.5-5.0); Alkaline Phosphatase 96 U/L (38-126); Anion Gap 6 mmol/L; Blood Urea Nitrogen 66 mg/dL (7-17); Calcium 6.7 mg/dL (8.4-10.2); Carbon Dioxide 25 mmol/L (22-30); Chloride 97 mmol/L (98-107); Glucose 243 mg/dL (74-99); Non-African American GFR(CKD) 43 (>60 ml/min/1.73 sqM); Potassium 4.2 mmol/L (3.5-5.1); Sodium 128 mmol/L (137-145); Total Bilirubin 2.9 mg/dL (0.2-1.3); Total Protein 3.7 g/dL (6.3-8.2)
[2022-03-09 02:33] LABS: HGB 6.6 gm/dL (11.4-16.0)
[2022-03-09 02:34] LABS: HCT 18.9 % (34.0-46.0)
--- NOTE | 2022-03-09 03:10 | XR ---
EXAMINATION TYPE: XR chest 1V portable DATE OF EXAM: 03/09/2022 COMPARISON: Yesterday HISTORY: Tube placement TECHNIQUE: Single view FINDINGS: There is a nasogastric tube is folded on itself in the upper thoracic esophagus. There is s ome pulmonary congestion and atelectasis right lung base. There is elevated right diaphragm. IMPRESSION: NG tube is malpositioned in the upper thoracic esophagus. There is some atelectasis right lung base without change.
[2022-03-09] MEDS: HYDROmorphone 0.5 MG/0.5 ML SYRINGE IVP PRN ×2 (04:09→12:16)
[2022-03-09] MEDS: AMIODARONE 450 MG in DEXTROSE 5% IN WATER 250 ML IV SCH ×2 (05:34)
[2022-03-09] MEDS: LEVOTHYROXINE 88 MCG TAB PO SCH (05:36)
[2022-03-09 07:17] LABS: Glucose,Whole Blood 310 mg/dL (70-110)
[2022-03-09] MEDS: INSULIN ASPART (NovoLOG) 100 UNIT/ML VIAL SQ SCH ×4 (07:18→22:27)
--- NOTE | 2022-03-09 07:38 | P.PN ---
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 She seems to be doing worse this morning. She seems more ill. Nursing states she was an O 3 earlier but now it is difficult to arouse her but she does still answer questions appropriately Once awakened. She apparently had 3-4 more bloody stools last night and had another one this morning before exam. The unit of blood is hanging. She is on 0.05 of levo. She continues to have antibiotics running as well as fluids. Nursing is at bedside states that her dressing was actually less saturated then it has been. he stated that from last night till 2 AM and was only mildly moist. But that they did change the dressing 3 or 4 times yesterday. Patient denies any headaches she does state some nausea she denies vomiting. She states some blurred vision. It is difficult to assess her however due to her current state. She states chest pain on the right side due to the hematoma she states shortness of breath overall. She states generalized weakness. Objective - Vital Signs Vital signs: Vital Signs Temp 98.8 F 03/09/22 06:47 Pulse 79 03/09/22 06:47 Resp 24 03/09/22 06:47 BP 147/48 03/09/22 06:47 Pulse Ox 96 03/09/22 06:47 FiO2 40 02/25/22 11:10 Intake & Output 03/08/22 03/09/22 03/09/22 18:59 06:59 18:59 Intake Total 8121.668 5997.348 Output Total 464 1570 Balance 1016.993 -325.652 Weight 140.8 kg Intake: IV 900 900 Dextrose 5% in Water 1, 900 900 000 ml @ 75 mls/hr IV . [id number] MEHUL with Sodium Bicarb (1 Meq/ml) 150 ml Rx#:[id number] Intake, IV Titration . 344.348 Amount Amiodarone 450 mg In 250 Dextrose 5% in Water 250 ml @ 0.5 MG/MIN 16.667 mls/hr IV .Q15H [facility] Rx#: [id number] Norepinephrine 32 mg In 20.993 94.348 Sodium Chloride 0.9% 218 ml @ 0.03 MCG/KG/MIN 1. 938 mls/hr IV .Q24H [facility] Rx#:[id number] Blood Product 310 0 Unit 0 Rc As-1 Unit 310 [id number] Other 250 Rc As-1 Unit 250 [id number] Output: Gastric Drainage 550 Urine 464 1020 Other: Voiding Method Indwelling Catheter Indwelling Catheter # Bowel Movements 1 1 ABP, PAP, CO, CI - Last Documented Arterial Blood Pressure 138/45 - Exam PHYSICAL EXAMINATION: Vitals: BP 155/80 heart rate 78 regularly irregular SpO2 98% on 4 L nasal cannula temperature normal General: Awake, alert, appropriate for age, in no acute distress. HEENT: No unusual neck masses around region of lateral neck triangle, thyroid, supraclavicular groove. Extremities: Skin warm and dry without no acute lesions, coloration, temperature, skin intact, no tenderness or erythema. Integument: Surgical incisions: no active drainage at this time dressing was just recently changed. But somewhat saturated with bowel movement on the outside at this time and will be changed when she is cleaned. Palpation: Special findings: pain with palpation of the right breast area with large hematoma notedas well as anterior chest wall. VASCULAR STATUS : Wrist Pulses: [2/4 bilateral radial and ulnar] Pedal Pulses: [2/4 bilateral DP and PT] Color: [Normal] Edema: some third spacing in bilateral lower extremities and upper extremities but minimal NEUROLOGIC EXAMINATION: Mental Status: Awake and alert, oriented,but slow with normal attention, concentration and memory, and fluent, he has slow speech Cranial Nerves: I: Olfactory not tested. II: Visual acuity normal, no visual field deficit noted with confrontation. III,IV: Normal pupillary reflexes & intact extraocular movements without nyst agmus. V,: Intact symmetrical facial sensation. VII: Intact symmetrical facial motor movement VIII: Hearing intact. IX,X: Intact gag, swallow, & normal voice. XI: Sternocleidomastoid, trapezius function intact. XII: Tongue midline with normal movements. Special Tests: L'hermitte's Sign: Absent Straight Leg Raising: Absent Bilateral Motor Exam (0-5/5, N/T) STRENGTH UPPER EXTREMITY [4]/5 in all major muscle groups of the UE b/l simply due to clinical picture LOWER EXTREMITY [4-]/5 in all major muscle groups of the LE b/l except for quads bilaterally which are 3+ and hip flexors which are 3+ bilaterally at this time no acute changes however REFLEXES Upper Extremity: RIGHT [2]/4 LEFT [2]/4 Lower Extremity: RIGHT [2]/4 LEFT [2]/4 Pathological Reflexes Warren's: RIGHT [Absent] LEFT [Absent] Babinski: RIGHT [Absent] LEFT [Absent] Clonus: RIGHT [None] LEFT [None] SENSORY Pain and LT sense [Intact C5-T1 and L2-S1] Dermatomal deficit [None] Gait and Functional Evaluation: Ambulatory aids: max assist with walker - Constitutional General appearance: Present: morbidly obese - EENT Eyes: Present: EOMI, PERRLA - Gastrointestinal General gastrointestinal: Present: distended, normal bowel sounds, tenderness - Neurologic Neurologic: Present: CNII-XII intact - Psychiatric Psychiatric: Present: A&O x's 3 - Allied health notes Allied Health Notes Comment(s): medicine, P cc, Gen. surgery, cardiothoracic surgery, nephrology - Labs CBC & Chem 7: 03/09/22 01:55 03/09/22 01:55 Labs: Abnormal Lab Results - Last 24 Hours (Table) 03/07/22 03/08/22 03/08/22 Range/Units 16:56 04:14 07:41 WBC (3.8-10.6) k/uL RBC (3.80-5.40) m/uL Hgb (11.4-16.0) gm/dL Hct (34.0-46.0) % RDW (11.5-15.5) % Plt Count (150-450) k/uL Neutrophils # (Manual) (1.3-7.7) k/uL Lymphocytes # (Manual) (1.0-4.8) k/uL Monocytes # (Manual) (0-1.0) k/uL Nucleated RBCs (0-0) /100 WBC ABG pH 7.47 H (7.35-7.45) ABG pCO2 27 L (35-45) mmHg ABG pO2 110 H (83-108) mmHg ABG HCO3 20 L (21-25) mmol/L ABG O2 Saturation 99.4 H (94-97) % Sodium (137-145) mmol/L Chloride (98-107) mmol/L Carbon Dioxide (22-30) mmol/L BUN (7-17) mg/dL Creatinine (0.52-1.04) mg/dL Glucose (74-99) mg/dL POC Glucose (mg/dL) (70-110) mg/dL Osmolality (280-301) mosm/kg Calcium (8.4-10.2) mg/dL Iron 40 L (50-170) ug/dL Transferrin 193.0 L (204.0-354.0) mg/dL Ferritin 655.0 H (10.0-291.0) ng/mL Total Bilirubin (0.2-1.3) mg/dL AST (14-36) U/L ALT (4-34) U/L Total Protein (6.3-8.2) g/dL Albumin (3.5-5.0) g/dL Procalcitonin (0.02-0.09) ng/mL Ur Random Sodium (40-220) mmol/L Crossmatch See Detail 03/08/22 03/08/22 03/08/22 Range/Units 10:52 10:52 10:52 WBC (3.8-10.6) k/uL RBC (3.80-5.40) m/uL Hgb (11.4-16.0) gm/dL Hct (34.0-46.0) % RDW (11.5-15.5) % Plt Count (150-450) k/uL Neutrophils # (Manual) (1.3-7.7) k/uL Lymphocytes # (Manual) (1.0-4.8) k/uL Monocytes # (Manual) (0-1.0) k/uL Nucleated RBCs (0-0) /100 WBC ABG pH (7.35-7.45) ABG pCO2 (35-45) mmHg ABG pO2 (83-108) mmHg ABG HCO3 (21-25) mmol/L ABG O2 Saturation (94-97) % Sodium 127 L (137-145) mmol/L Chloride (98-107) mmol/L Carbon Dioxide 19 L (22-30) mmol/L BUN 61 H (7-17) mg/dL Creatinine 1.51 H (0.52-1.04) mg/dL Glucose 241 H (74-99) mg/dL POC Glucose (mg/dL) (70-110) mg/dL Osmolality 302 H (280-301) mosm/kg Calcium 6.2 L* (8.4-10.2) mg/dL Iron (50-170) ug/dL Transferrin (204.0-354.0) mg/dL Ferritin (10.0-291.0) ng/mL Total Bilirubin (0.2-1.3) mg/dL AST (14-36) U/L ALT (4-34) U/L Total Protein (6.3-8.2) g/dL Albumin (3.5-5.0) g/dL Procalcitonin 1.63 H (0.02-0.09) ng/mL Ur Random Sodium (40-220) mmol/L Crossmatch 03/08/22 03/08/22 03/08/22 Range/Units 10:52 11:00 12:49 WBC 31.0 H (3.8-10.6) k/uL RBC 2.02 L (3.80-5.40) m/uL Hgb 6.0 L* D (11.4-16.0) gm/dL Hct 18.2 L* (34.0-46.0) % RDW 19.8 H (11.5-15.5) % Plt Count (150-450) k/uL Neutrophils # (Manual) 29.10 H (1.3-7.7) k/uL Lymphocytes # (Manual) 0.93 L (1.0-4.8) k/uL Monocytes # (Manual) 1.24 H (0-1.0) k/uL Nucleated RBCs 3 H (0-0) /100 WBC ABG pH (7.35-7.45) ABG pCO2 (35-45) mmHg ABG pO2 (83-108) mmHg ABG HCO3 (21-25) mmol/L ABG O2 Saturation (94-97) % Sodium (137-145) mmol/L Chloride (98-107) mmol/L Carbon Dioxide (22-30) mmol/L BUN (7-17) mg/dL Creatinine (0.52-1.04) mg/dL Glucose (74-99) mg/dL POC Glucose (mg/dL) 244 H (70-110) mg/dL Osmolality (280-301) mosm/kg Calcium (8.4-10.2) mg/dL Iron (50-170) ug/dL Transferrin (204.0-354.0) mg/dL Ferritin (10.0-291.0) ng/mL Total Bilirubin (0.2-1.3) mg/dL AST (14-36) U/L ALT (4-34) U/L Total Protein (6.3-8.2) g/dL Albumin (3.5-5.0) g/dL Procalcitonin (0.02-0.09) ng/mL Ur Random Sodium 30 L (40-220) mmol/L Crossmatch 03/08/22 03/08/22 03/08/22 Range/Units 15:40 17:07 21:10 WBC 31.0 H (3.8-10.6) k/uL RBC 2.62 L (3.80-5.40) m/uL Hgb 8.0 L D (11.4-16.0) gm/dL Hct 22.8 L (34.0-46.0) % RDW 17.4 H (11.5-15.5) % Plt Count (150-450) k/uL Neutrophils # (Manual) 28.20 H (1.3-7.7) k/uL Lymphocytes # (Manual) (1.0-4.8) k/uL Monocytes # (Manual) 1.55 H (0-1.0) k/uL Nucleated RBCs (0-0) /100 WBC ABG pH (7.35-7.45) ABG pCO2 (35-45) mmHg ABG pO2 (83-108) mmHg ABG HCO3 (21-25) mmol/L ABG O2 Saturation (94-97) % Sodium (137-145) mmol/L Chloride (98-107) mmol/L Carbon Dioxide (22-30) mmol/L BUN (7-17) mg/dL Creatinine (0.52-1.04) mg/dL Glucose (74-99) mg/dL POC Glucose (mg/dL) 285 H 299 H (70-110) mg/dL Osmolality (280-301) mosm/kg Calcium (8.4-10.2) mg/dL Iron (50-170) ug/dL Transferrin (204.0-354.0) mg/dL Ferritin (10.0-291.0) ng/mL Total Bilirubin (0.2-1.3) mg/dL AST (14-36) U/L ALT (4-34) U/L Total Protein (6.3-8.2) g/dL Albumin (3.5-5.0) g/dL Procalcitonin (0.02-0.09) ng/mL Ur Random Sodium (40-220) mmol/L Crossmatch 03/09/22 03/09/22 03/09/22 Range/Units 01:55 01:55 07:15 WBC 23.9 H (3.8-10.6) k/uL RBC 2.19 L (3.80-5.40) m/uL Hgb 6.6 L* (11.4-16.0) gm/dL Hct 18.9 L* (34.0-46.0) % RDW 17.7 H (11.5-15.5) % Plt Count 131 L (150-450) k/uL Neutrophils # (Manual) (1.3-7.7) k/uL Lymphocytes # (Manual) (1.0-4.8) k/uL Monocytes # (Manual) (0-1.0) k/uL Nucleated RBCs (0-0) /100 WBC ABG pH (7.35-7.45) ABG pCO2 (35-45) mmHg ABG pO2 (83-108) mmHg ABG HCO3 (21-25) mmol/L ABG O2 Saturation (94-97) % Sodium 128 L (137-145) mmol/L Chloride 97 L (98-107) mmol/L Carbon Dioxide (22-30) mmol/L BUN 66 H (7-17) mg/dL Creatinine 1.25 H (0.52-1.04) mg/dL Glucose 243 H (74-99) mg/dL POC Glucose (mg/dL) 310 H (70-110) mg/dL Osmolality (280-301) mosm/kg Calcium 6.7 L (8.4-10.2) mg/dL Iron (50-170) ug/dL Transferrin (204.0-354.0) mg/dL Ferritin (10.0-291.0) ng/mL Total Bilirubin 2.9 H (0.2-1.3) mg/dL AST 586 H (14-36) U/L ALT 740 H (4-34) U/L Total Protein 3.7 L (6.3-8.2) g/dL Albumin 2.3 L (3.5-5.0) g/dL Procalcitonin (0.02-0.09) ng/mL Ur Random Sodium (40-220) mmol/L Crossmatch Microbiology - Last 24 Hours (Table) 03/07/22 16:19 Blood Culture Gram Stain - Preliminary Blood Blood Culture - Preliminary Enterobacter cloacae 03/07/22 13:45 Urine Culture - Preliminary Urine,Voided Gram Neg Bacilli 03/07/22 16:19 Blood Culture - Final Blood 03/07/22 16:28 Blood Culture - Preliminary Blood No Growth after 24 hours Assessment and Plan Assessment: 1. 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 surgery, nephrology, ID evaluations -Activity: Ambulate QID, OOB all meals, up and about, limit lifting bending twisting to less than 5 lbs. Use walker or cane if needed for stability. -Daily PT/OT, increase ambulation strength and balance. -[Brace when up and about, not needed in bed or chair] -Pain control: Adequate at this time -Meds: reviewed -labs: hemoglobin is again low at 6.8 she is receiving a unit of blood. White cell count is decreasing. Liver labs and kidney labs seem to be slowly correcting. -GI ppx: senna, Miralax -continue Warren changed per protocol -DVT PPX: continue hold xarelto due to hematoma, cont mechanical -Hygiene: Maintain dressing clean and dry. Meticulous cleaning after BMs away from incision site patient has had several instances on the floor where she was covered and bowel movement as well as urine up to her shoulders on her back. The wound needs to be kept meticulously clean. -Encourage IS 10x/hr -we will discuss with the treatment team. She is currently on the schedule for today however I am concerned about her current state. I do feel that she may need be postponed until tomorrow for more transfusions as well as workup of her GI bleed. The issue being if she needs to be transferred to a tertiary care and still needs a washout of her back this becomes an issue. I have asked the nurse to call me after they clean her to look at her wound they state no active drainage from it when they change the dressing but that it continues to be moist. If this continues to decrease there may be a potential to wait it may be safer to wait until tomorrow for a back washout however I am unsure if it is safe to wait on her GI symptoms. We will discuss with the treatment team. Family will be updated. Time with Patient: Greater than 30
--- NOTE | 2022-03-09 07:49 | P.PN ---
Subjective Progress Note Date: 03/09/22 Principal diagnosis: Typical atrial flutter Patient is pleasant 71-year-old female with history of persistent typical atrial flutter, paroxysmal atrial fibrillation, hypertension, hyperlipidemia. She follows with Dr. Leger. We are consulted for A flutter. She presented for trudy meive back surgery. She underwent back surgery with a long procedure. She was noted to be in atrial flutter throughout the case. After that she became bradycardic and she did have an episode appeared to be brief of severe bradycardia/cardiac arrest and she resuscitated. 03/08/2022 The patient was seen and evaluated this morning. She seems to be hypotensive now require norepinephrine. She remains in atrial flutter with overall controlled heart rate. She is on Cardizem. I'm going to stop the Cardizem and start the patient on amiodarone was bolus and drip giving the low blood pressure requiring vasopressors. Beside that continued oral anticoagulation. Follow-up with the patient. March 092021 The patient was seen and evaluated this morning. She remains in atrial flutter with controlled heart rate. Oral anticoagulation is on hold at this point in the light of bleeding. The hemoglobin this morning is below 7. There is a possibility that the patient might need another back surgery. Objective - Vital Signs Vital signs: Vital Signs Temp 98.8 F 03/09/22 06:47 Pulse 79 03/09/22 06:47 Resp 24 03/09/22 06:47 BP 147/48 03/09/22 06:47 Pulse Ox 96 03/09/22 06:47 FiO2 40 02/25/22 11:10 Intake & Output 03/08/22 03/09/22 03/09/22 18:59 06:59 18:59 Intake Total 6982.702 9575.348 Output Total 464 1570 Balance 1016.993 -325.652 Weight 140.8 kg Intake: IV 900 900 Dextrose 5% in Water 1, 900 900 000 ml @ 75 mls/hr IV . [id number] MEHUL with Sodium Bicarb (1 Meq/ml) 150 ml Rx#:[id number] Intake, IV Titration 20.993 344.348 Amount Amiodarone 450 mg In 250 Dextrose 5% in Water 250 ml @ 0.5 MG/MIN 16.667 mls/hr IV .Q15H [facility] Rx#: [id number] Norepinephrine 32 mg In 20.993 94.348 Sodium Chloride 0.9% 218 ml @ 0.03 MCG/KG/MIN 1. 938 mls/hr IV .Q24H [facility] Rx#:[id number] Blood Product 310 0 Unit 0 Rc As-1 Unit 310 [id number] Other 250 Rc As-1 Unit 250 [id number] Output: Gastric Drainage 550 Urine 464 1020 Other: Voiding Method Indwelling Catheter Indwelling Catheter # Bowel Movements 1 1 ABP, PAP, CO, CI - Last Documented Arterial Blood Pressure 138/45 - Constitutional General appearance: Present: no acute distress - Respiratory Respiratory: bilateral: diminished - Cardiovascular Rhythm: irregularly irregular - Labs CBC & Chem 7: 03/09/22 01:55 03/09/22 01:55 Labs: Abnormal Lab Results - Last 24 Hours (Table) 03/07/22 03/08/22 03/08/22 Range/Units 16:56 04:14 10:52 WBC (3.8-10.6) k/uL RBC (3.80-5.40) m/uL Hgb (11.4-16.0) gm/dL Hct (34.0-46.0) % RDW (11.5-15.5) % Plt Count (150-450) k/uL Neutrophils # (Manual) (1.3-7.7) k/uL Lymphocytes # (Manual) (1.0-4.8) k/uL Monocytes # (Manual) (0-1.0) k/uL Nucleated RBCs (0-0) /100 WBC Sodium 127 L (137-145) mmol/L Chloride (98-107) mmol/L Carbon Dioxide 19 L (22-30) mmol/L BUN 61 H (7-17) mg/dL Creatinine 1.51 H (0.52-1.04) mg/dL Glucose 241 H (74-99) mg/dL POC Glucose (mg/dL) (70-110) mg/dL Osmolality (280-301) mosm/kg Calcium 6.2 L* (8.4-10.2) mg/dL Iron 40 L (50-170) ug/dL Transferrin 193.0 L (204.0-354.0) mg/dL Ferritin 655.0 H (10.0-291.0) ng/mL Total Bilirubin (0.2-1.3) mg/dL AST (14-36) U/L ALT (4-34) U/L Total Protein (6.3-8.2) g/dL Albumin (3.5-5.0) g/dL Procalcitonin (0.02-0.09) ng/mL Ur Random Sodium (40-220) mmol/L Crossmatch See Detail 03/08/22 03/08/22 03/08/22 Range/Units 10:52 10:52 10:52 WBC 31.0 H (3.8-10.6) k/uL RBC 2.02 L (3.80-5.40) m/uL Hgb 6.0 L* D (11.4-16.0) gm/dL Hct 18.2 L* (34.0-46.0) % RDW 19.8 H (11.5-15.5) % Plt Count (150-450) k/uL Neutrophils # (Manual) 29.10 H (1.3-7.7) k/uL Lymphocytes # (Manual) 0.93 L (1.0-4.8) k/uL Monocytes # (Manual) 1.24 H (0-1.0) k/uL Nucleated RBCs 3 H (0-0) /100 WBC Sodium (137-145) mmol/L Chloride (98-107) mmol/L Carbon Dioxide (22-30) mmol/L BUN (7-17) mg/dL Creatinine (0.52-1.04) mg/dL Glucose (74-99) mg/dL POC Glucose (mg/dL) (70-110) mg/dL Osmolality 302 H (280-301) mosm/kg Calcium (8.4-10.2) mg/dL Iron (50-170) ug/dL Transferrin (204.0-354.0) mg/dL Ferritin (10.0-291.0) ng/mL Total Bilirubin (0.2-1.3) mg/dL AST (14-36) U/L ALT (4-34) U/L Total Protein (6.3-8.2) g/dL Albumin (3.5-5.0) g/dL Procalcitonin 1.63 H (0.02-0.09) ng/mL Ur Random Sodium (40-220) mmol/L Crossmatch 03/08/22 03/08/22 03/08/22 Range/Units 11:00 12:49 15:40 WBC 31.0 H (3.8-10.6) k/uL RBC 2.62 L (3.80-5.40) m/uL Hgb 8.0 L D (11.4-16.0) gm/dL Hct 22.8 L (34.0-46.0) % RDW 17.4 H (11.5-15.5) % Plt Count (150-450) k/uL Neutrophils # (Manual) 28.20 H (1.3-7.7) k/uL Lymphocytes # (Manual) (1.0-4.8) k/uL Monocytes # (Manual) 1.55 H (0-1.0) k/uL Nucleated RBCs (0-0) /100 WBC Sodium (137-145) mmol/L Chloride (98-107) mmol/L Carbon Dioxide (22-30) mmol/L BUN (7-17) mg/dL Creatinine (0.52-1.04) mg/dL Glucose (74-99) mg/dL POC Glucose (mg/dL) 244 H (70-110) mg/dL Osmolality (280-301) mosm/kg Calcium (8.4-10.2) mg/dL Iron (50-170) ug/dL Transferrin (204.0-354.0) mg/dL Ferritin (10.0-291.0) ng/mL Total Bilirubin (0.2-1.3) mg/dL AST (14-36) U/L ALT (4-34) U/L Total Protein (6.3-8.2) g/dL Albumin (3.5-5.0) g/dL Procalcitonin (0.02-0.09) ng/mL Ur Random Sodium 30 L (40-220) mmol/L Crossmatch 03/08/22 03/08/22 03/09/22 Range/Units 17:07 21:10 01:55 WBC (3.8-10.6) k/uL RBC (3.80-5.40) m/uL Hgb (11.4-16.0) gm/dL Hct (34.0-46.0) % RDW (11.5-15.5) % Plt Count (150-450) k/uL Neutrophils # (Manual) (1.3-7.7) k/uL Lymphocytes # (Manual) (1.0-4.8) k/uL Monocytes # (Manual) (0-1.0) k/uL Nucleated RBCs (0-0) /100 WBC Sodium 128 L (137-145) mmol/L Chloride 97 L (98-107) mmol/L Carbon Dioxide (22-30) mmol/L BUN 66 H (7-17) mg/dL Creatinine 1.25 H (0.52-1.04) mg/dL Glucose 243 H (74-99) mg/dL POC Glucose (mg/dL) 285 H 299 H (70-110) mg/dL Osmolality (280-301) mosm/kg Calcium 6.7 L (8.4-10.2) mg/dL Iron (50-170) ug/dL Transferrin (204.0-354.0) mg/dL Ferritin (10.0-291.0) ng/mL Total Bilirubin 2.9 H (0.2-1.3) mg/dL AST 586 H (14-36) U/L ALT 740 H (4-34) U/L Total Protein 3.7 L (6.3-8.2) g/dL Albumin 2.3 L (3.5-5.0) g/dL Procalcitonin (0.02-0.09) ng/mL Ur Random Sodium (40-220) mmol/L Crossmatch 03/09/22 03/09/22 Range/Units 01:55 07:15 WBC 23.9 H (3.8-10.6) k/uL RBC 2.19 L (3.80-5.40) m/uL Hgb 6.6 L* (11.4-16.0) gm/dL Hct 18.9 L* (34.0-46.0) % RDW 17.7 H (11.5-15.5) % Plt Count 131 L (150-450) k/uL Neutrophils # (Manual) (1.3-7.7) k/uL Lymphocytes # (Manual) (1.0-4.8) k/uL Monocytes # (Manual) (0-1.0) k/uL Nucleated RBCs (0-0) /100 WBC Sodium (137-145) mmol/L Chloride (98-107) mmol/L Carbon Dioxide (22-30) mmol/L BUN (7-17) mg/dL Creatinine (0.52-1.04) mg/dL Glucose (74-99) mg/dL POC Glucose (mg/dL) 310 H (70-110) mg/dL Osmolality (280-301) mosm/kg Calcium (8.4-10.2) mg/dL Iron (50-170) ug/dL Transferrin (204.0-354.0) mg/dL Ferritin (10.0-291.0) ng/mL Total Bilirubin (0.2-1.3) mg/dL AST (14-36) U/L ALT (4-34) U/L Total Protein (6.3-8.2) g/dL Albumin (3.5-5.0) g/dL Procalcitonin (0.02-0.09) ng/mL Ur Random Sodium (40-220) mmol/L Crossmatch Microbiology - Last 24 Hours (Table) 03/07/22 16:19 Blood Culture Gram Stain - Preliminary Blood Blood Culture - Preliminary Enterobacter cloacae 03/07/22 13:45 Urine Culture - Preliminary Urine,Voided Gram Neg Bacilli 03/07/22 16:19 Blood Culture - Final Blood 03/07/22 16:28 Blood Culture - Preliminary Blood No Growth after 24 hours Assessment and Plan Assessment: ASSESSMENT Typical Atrial flutter,with severe bradycardic episode and of the 20s to 30s status post brief round of CPR. Appears mainly related to severe metabolic derangements with severe acidosis during surgery. Status post back surgery Paroxysmal atrial fibrillation Hypertension Hyperlipidemia Cardiomyopathy, ischemic vs non-ischemic Hyperkalemia Back pain Acute kidney injury PLAN Patients heart rates are controlled Continue holding anticoagulation in the light of bleeding
--- NOTE | 2022-03-09 08:14 | XR ---
EXAMINATION TYPE: XR chest 1V portable DATE OF EXAM: 03/09/2022 HISTORY: Shortness of breath. COMPARISON: 03/09/2022 TECHNIQUE: Single view of the chest is submitted. FINDINGS: NG tube is seen coursing into the stomach. Right basilar atelectasis and/or infiltrate with small effusion persists. The heart is stable. Hilar and mediastinal structures are within normal limits. Degenerative changes are seen of the dorsal spine. IMPRESSION: 1. NG tube is seen coursing into the stomach. Right basilar atelectasis and/or infiltrate with small effusion persists.
[2022-03-09] MEDS: NOREPINEPHRINE 32 MG in SODIUM CHLORIDE 0.9% 218 ML IV SCH (09:08)
[2022-03-09] MEDS: SODIUM CHLORIDE 0.9% 1,000 ML IV SCH (09:14)
[2022-03-09] MEDS: DULoxetine HCL 60 MG CAPSULE.DR PO SCH (09:15)
[2022-03-09] MEDS: GABAPENTIN 300 MG CAP PO SCH ×3 (09:15→22:30)
[2022-03-09] MEDS: ATORVASTATIN 10 MG TAB PO SCH (09:15)
--- NOTE | 2022-03-09 10:54 | P.PN ---
Subjective Patient is seen in follow-up for acute kidney injury and hyponatremia. Sodium level a little improved. Renal function better. Nonoliguric. Maintain on normal saline. Also received a unit of blood this morning. Vital signs are stable. General: Resting in bed. HEENT: Head exam is unremarkable. On nasal cannula. LUNGS:Breath sounds decreased. HEART: Rate and Rhythm are regular. ABDOMEN: Soft, obese. EXTREMITITES: No edema. Objective - Vital Signs Vital signs: Vital Signs Temp 98.8 F 03/09/22 06:47 Pulse 78 03/09/22 09:30 Resp 18 03/09/22 09:30 BP 147/48 03/09/22 06:47 Pulse Ox 97 03/09/22 09:30 FiO2 40 02/25/22 11:10 Intake & Output 03/08/22 03/09/22 03/09/22 18:59 06:59 18:59 Intake Total 7541.488 2545.348 663.230 Output Total 464 1570 375 Balance 1016.993 -225.652 288.230 Weight 140.8 kg Intake: IV 900 1000 250 Cefepime 2 gm In Sodium 100 100 Chloride 0.9% 100 ml @ 25 mls/hr IVPB Q12H ME[facility] Rx# :[id number] Dextrose 5% in Water 1, 900 900 150 000 ml @ 75 mls/hr IV . [id number] MEHUL with Sodium Bicarb (1 Meq/ml) 150 ml Rx#:[id number] Intake, IV Titration 20.993 344.348 132.230 Amount Amiodarone 450 mg In 250 38.334 Dextrose 5% in Water 250 ml @ 0.5 MG/MIN 16.667 mls/hr IV .Q15H ME[facility]UL Rx#: [id number] Norepinephrine 32 mg In 20.993 94.348 18.896 Sodium Chloride 0.9% 218 ml @ 0.03 MCG/KG/MIN 1. 938 mls/hr IV .Q24H ME[facility]UL Rx#:[id number] Sodium Chloride 0.9% 1, 75 000 ml @ 75 mls/hr IV . [id number] ME[facility]UL Rx#:[id number] Blood Product 310 0 281 Rc As-1 Unit 310 [id number] Rc Pheresis As-3 Unit 0 281 [id number] Other 250 Rc As-1 Unit 250 [id number] Output: Gastric Drainage 550 Urine 464 1020 375 Other: Voiding Method Indwelling Catheter Indwelling Catheter Indwelling Catheter # Bowel Movements 1 1 ABP, PAP, CO, CI - Last Documented Arterial Blood Pressure 162/50 - Labs CBC & Chem 7: 03/09/22 01:55 03/09/22 01:55 Labs: Abnormal Lab Results - Last 24 Hours (Table) 03/07/22 03/08/22 03/08/22 Range/Units 16:56 10:52 10:52 WBC (3.8-10.6) k/uL RBC (3.80-5.40) m/uL Hgb (11.4-16.0) gm/dL Hct (34.0-46.0) % RDW (11.5-15.5) % Plt Count (150-450) k/uL Neutrophils # (Manual) (1.3-7.7) k/uL Lymphocytes # (Manual) (1.0-4.8) k/uL Monocytes # (Manual) (0-1.0) k/uL Nucleated RBCs (0-0) /100 WBC Sodium 127 L (137-145) mmol/L Chloride (98-107) mmol/L Carbon Dioxide 19 L (22-30) mmol/L BUN 61 H (7-17) mg/dL Creatinine 1.51 H (0.52-1.04) mg/dL Glucose 241 H (74-99) mg/dL POC Glucose (mg/dL) (70-110) mg/dL Osmolality (280-301) mosm/kg Calcium 6.2 L* (8.4-10.2) mg/dL Total Bilirubin (0.2-1.3) mg/dL AST (14-36) U/L ALT (4-34) U/L Total Protein (6.3-8.2) g/dL Albumin (3.5-5.0) g/dL Procalcitonin 1.63 H (0.02-0.09) ng/mL Ur Random Sodium (40-220) mmol/L Crossmatch See Detail 03/08/22 03/08/22 03/08/22 Range/Units 10:52 10:52 11:00 WBC 31.0 H (3.8-10.6) k/uL RBC 2.02 L (3.80-5.40) m/uL Hgb 6.0 L* D (11.4-16.0) gm/dL Hct 18.2 L* (34.0-46.0) % RDW 19.8 H (11.5-15.5) % Plt Count (150-450) k/uL Neutrophils # (Manual) 29.10 H (1.3-7.7) k/uL Lymphocytes # (Manual) 0.93 L (1.0-4.8) k/uL Monocytes # (Manual) 1.24 H (0-1.0) k/uL Nucleated RBCs 3 H (0-0) /100 WBC Sodium (137-145) mmol/L Chloride (98-107) mmol/L Carbon Dioxide (22-30) mmol/L BUN (7-17) mg/dL Creatinine (0.52-1.04) mg/dL Glucose (74-99) mg/dL POC Glucose (mg/dL) (70-110) mg/dL Osmolality 302 H (280-301) mosm/kg Calcium (8.4-10.2) mg/dL Total Bilirubin (0.2-1.3) mg/dL AST (14-36) U/L ALT (4-34) U/L Total Protein (6.3-8.2) g/dL Albumin (3.5-5.0) g/dL Procalcitonin (0.02-0.09) ng/mL Ur Random Sodium 30 L (40-220) mmol/L Crossmatch 03/08/22 03/08/22 03/08/22 Range/Units 12:49 15:40 17:07 WBC 31.0 H (3.8-10.6) k/uL RBC 2.62 L (3.80-5.40) m/uL Hgb 8.0 L D (11.4-16.0) gm/dL Hct 22.8 L (34.0-46.0) % RDW 17.4 H (11.5-15.5) % Plt Count (150-450) k/uL Neutrophils # (Manual) 28.20 H (1.3-7.7) k/uL Lymphocytes # (Manual) (1.0-4.8) k/uL Monocytes # (Manual) 1.55 H (0-1.0) k/uL Nucleated RBCs (0-0) /100 WBC Sodium (137-145) mmol/L Chloride (98-107) mmol/L Carbon Dioxide (22-30) mmol/L BUN (7-17) mg/dL Creatinine (0.52-1.04) mg/dL Glucose (74-99) mg/dL POC Glucose (mg/dL) 244 H 285 H (70-110) mg/dL Osmolality (280-301) mosm/kg Calcium (8.4-10.2) mg/dL Total Bilirubin (0.2-1.3) mg/dL AST (14-36) U/L ALT (4-34) U/L Total Protein (6.3-8.2) g/dL Albumin (3.5-5.0) g/dL Procalcitonin (0.02-0.09) ng/mL Ur Random Sodium (40-220) mmol/L Crossmatch 03/08/22 03/09/22 03/09/22 Range/Units 21:10 01:55 01:55 WBC 23.9 H (3.8-10.6) k/uL RBC 2.19 L (3.80-5.40) m/uL Hgb 6.6 L* (11.4-16.0) gm/dL Hct 18.9 L* (34.0-46.0) % RDW 17.7 H (11.5-15.5) % Plt Count 131 L (150-450) k/uL Neutrophils # (Manual) (1.3-7.7) k/uL Lymphocytes # (Manual) (1.0-4.8) k/uL Monocytes # (Manual) (0-1.0) k/uL Nucleated RBCs (0-0) /100 WBC Sodium 128 L (137-145) mmol/L Chloride 97 L (98-107) mmol/L Carbon Dioxide (22-30) mmol/L BUN 66 H (7-17) mg/dL Creatinine 1.25 H (0.52-1.04) mg/dL Glucose 243 H (74-99) mg/dL POC Glucose (mg/dL) 299 H (70-110) mg/dL Osmolality (280-301) mosm/kg Calcium 6.7 L (8.4-10.2) mg/dL Total Bilirubin 2.9 H (0.2-1.3) mg/dL AST 586 H (14-36) U/L ALT 740 H (4-34) U/L Total Protein 3.7 L (6.3-8.2) g/dL Albumin 2.3 L (3.5-5.0) g/dL Procalcitonin (0.02-0.09) ng/mL Ur Random Sodium (40-220) mmol/L Crossmatch 03/09/22 Range/Units 07:15 WBC (3.8-10.6) k/uL RBC (3.80-5.40) m/uL Hgb (11.4-16.0) gm/dL Hct (34.0-46.0) % RDW (11.5-15.5) % Plt Count (150-450) k/uL Neutrophils # (Manual) (1.3-7.7) k/uL Lymphocytes # (Manual) (1.0-4.8) k/uL Monocytes # (Manual) (0-1.0) k/uL Nucleated RBCs (0-0) /100 WBC Sodium (137-145) mmol/L Chloride (98-107) mmol/L Carbon Dioxide (22-30) mmol/L BUN (7-17) mg/dL Creatinine (0.52-1.04) mg/dL Glucose (74-99) mg/dL POC Glucose (mg/dL) 310 H (70-110) mg/dL Osmolality (280-301) mosm/kg Calcium (8.4-10.2) mg/dL Total Bilirubin (0.2-1.3) mg/dL AST (14-36) U/L ALT (4-34) U/L Total Protein (6.3-8.2) g/dL Albumin (3.5-5.0) g/dL Procalcitonin (0.02-0.09) ng/mL Ur Random Sodium (40-220) mmol/L Crossmatch Microbiology - Last 24 Hours (Table) 03/07/22 16:19 Blood Culture Gram Stain - Preliminary Blood Blood Culture - Preliminary Enterobacter cloacae 03/07/22 13:45 Urine Culture - Preliminary Urine,Voided Gram Neg Bacilli 03/07/22 16:19 Blood Culture - Final Blood 03/07/22 16:28 Blood Culture - Preliminary Blood No Growth after 24 hours Assessment and Plan Plan: Assessment: 1. Acute kidney injury secondary to ATN secondary to septic shock, hemodynamic instability, anemia. Baseline creatinine near 0.6 and peaked at 1.51 this admission - 1.25 today. No hydronephrosis noted in right kidney. Left renal pelvis dilated. 2. Hyponatremia from poor solute intake and component of SIADH from pain. Sodium level 128 today. Urine sodium 30 and urine osmolality 515. Cortisol level not low. TSH normal. 3. Hyperkalemia secondary to acute kidney injury and metabolic acidosis. Resolved. 4. Metabolic acidosis secondary to acute kidney injury, lactic acidosis and IV fluids. Improved. 5. A flutter status post amiodarone drip. Cardiology following. 6. Status post cardiac arrest this admission. 7. Acute blood loss anemia status post blood transfusion this admission. Hemoglobin 6.6 this morning. Received another unit of blood this morning. Noted to have right breast hematoma. Being followed by cardiac thoracic surgery. 8. Septic shock secondary to gram-negative UTI and Enterobacter bacteremia versus postoperative wound infection. Washout pending. Orthopedic surgery following. On IV antibiotics. 9. Chronic systolic CHF with ejection fraction of 35-40% and moderate tricuspid regurgitation and severe pulmonary hypertension. Plan: Maintain normal saline. Status post IV albumin given 03/08/2022. Wean Levophed. Avoid nephrotoxins. Continue to monitor renal function and urine output.
--- NOTE | 2022-03-09 10:55 | P.PN ---
Subjective Progress Note Date: 03/09/22 Is evaluation of 02/25/2022, the patient is being seen for a follow-up in the intensive care unit. The patient is post laminectomy and fusion/decompression of the spine and this was done on multiple levels. The patient overnight was kept on a mechanical ventilator. This morning, the patient is on propofol which is running at 35 mcg/kg/m. The patient is well sedated and the patient is quite sick sinus with a mechanical ventilator. The patient is requiring no pressors. The patient on normal saline in the at the rate of 50 mL an hour. The patient is on a mechanical ventilator on assist control mode at the rate of 18, tidal volume of 450, FiO2 of 40% with a PEEP of 5. The blood gas from today showed a pH of 7.41 with a pCO2 of 35 and pO2 of 138. Chest x-ray shows smaller lung volumes, some mild elevation of the right hemidiaphragm. ET tube is sitting just at the level of the aortic knob. No evidence of any pneumothorax. No airspace disease or consolidations. The patient also had a CT angiogram that showed no evidence of any pulmonary embolism. That showed atelectatic change in lung bases and various up other lung segments. No effusion. No lung collapse. CAT scan of the lumbosacral spine was also completed. The surgical one-sided dry clean and intact. The Hemovac output is bloody and its minimal at this point in time. The patient is afebrile. The patient is in atrial fibrillation. Rate is controlled. The patient is receiving Dilaudid for pain control.Blood work from today shows a white cell count of 14.7 with a hemoglobin of 10.1 and a platelet count of 232. The patient also has a sodium level of 135, potassium level of 4.4, chloride is 106 with a bicarb of 23 and a BUN of 15 and a creatinine of 0.5. On 02/26/2022, the patient is extubated and the patient is currently on room air oxygen. Pulse ox is around 91%. Chest x-rays showing a small left-sided pleural effusion, atelectatic change in the right lung base. The patient is able to move lower extremities. She has some limited numbness in her fingers the first and second finger and left upper extremity. Otherwise, she is hemodynamically stable. She remained nature fibrillation. She was started on Cardizem drip which is about 5 mg an hour for rate control and this was started yesterday. Her heart rate is under better control. The patient is also on beta blockers and the patient is on atenolol 100 mg by mouth on a daily basis. Pain is under adequate control. She is requiring Dilaudid 1 mg every 3 hours and 0.5 mg every 2 hours on an as-needed basis. She is also receiving Percocet 10/325 mg every 6 hours. She is currently also on IV fluids in the form of normal saline at the rate of 100 mL an hour. She remains on Decadron. Surgical 1 site is clean. The Hemovac has drained approximately 50 mL overnight and the output is minimal as such. No other significant events. No chest pain. No shortness of breath. White second visit 17 with a hemoglobin of 8.7. As such there is a some drop in hemoglobin. BUN is at 20 creatinine of 0.6 and a sodium level is at 135. She is using the incentive spirometer. She is pulling approximately 3000. Reevaluated today on 02/27/22, patient remains in the ICU, patient is doing fairly well. She is on room air, she is in atrial fibrillation, she is relatively asymptomatic. patient has IV fluid at 50 mL per hour, she is off all the different drips otherwise. WBC count is 17.9 hemoglobin is 8.7 and electrolytes are normal BUN is 20 creatinine 0.55. Chest x-ray from 02/26 is basically unremarkable.patient denies any shortness of breath, no cough, no wheezing, no chest pain, no further episodes of nausea or vomiting. Reevaluated today on 02/28/22, patient remains in the ICU as an overflow, she is on room air, not in any distress, but she does have lower extremities weakness and she seems to be generally weak. Continues to have a right triple-lumen catheter in the cervical region, and I'm recommending that we transition to a midline, and discontinue that triple-lumen catheter. Patient denies any shortness of breath, no cough, no wheezing, no major issues overnight. Basic metabolic profile this morning is relatively unremarkable. Reevaluated today on 03/01/22, patient remains as an overflow in the ICU. Doing fairly well, apparently she was up in the chair yesterday at bedside for most of the day. Pain seems to be fairly well controlled. Continues to have weakness, patient is being followed closely by orthopedics. Patient is doing well with incentive spirometry, remains on Xarelto for DVT prophylaxis. She is also on GI prophylaxis. The patient is seen today 03/07/2022 in follow-up in the intensive care unit. Earlier today she became quite obtunded. Hypotensive. Dyspneic. She was transferred back into the intensive care unit. Chest x-ray reveals borderline heart size. Patchy bibasilar opacities probably atelectasis similar to previous exam. She is maintaining good O2 saturations in the upper 90s on 4 L/m per nasal cannula. She is bradycardic. Atrial flutter. Ultrasound of the kidneys and bladder revealed no evidence of hydronephrosis on the right. There is a cystic distended area centrally upper and mid pole left kidney measuring up to 8.3 cm. Suspect parapelvic cyst which has enlarged. Indwelling Warren catheter in place. White count 42.3. Hemoglobin 7.0. Platelets 356. Sodium 127. Potassium 6.1. Chloride 97. Bicarb 14. BUN 43. Creatinine 1.14. Glucose 228. Troponin negative 1. Urinalysis reveals moderate blood. Large leukocytosis esterase HIDA BBC's and many bacteria. She's been initiated on cefepime. She has received 3 L of fluid resuscitation thus far. She was given 1 amp of sodium bicarb. Hyperkalemia was corrected. Follow-up labs are pen ding. Follow-up ABGs are pending. The patient is seen today 03/08/2022 in follow-up in the intensive care unit. Postoperative day #12 of a [id number] decompression and fusion. She is currently resting fairly comfortably in bed. Awake and alert. She is maintaining O2 saturations in the 90s on 3 L/m per nasal cannula. She is D5 W with 3 A of sodium bicarb at 75 ML's per hour. She is requiring norepinephrine at 24 mg/m. Arterial blood gases reveal a P O2 of 110, pCO2 27, pH is 7.47. She is noted to have a right chest wall hematoma. She did fall on 03/06/2022. There is significant ecchymosis and bruising.She has required 2 units of packed red blood cells. Current hemoglobin 8.3. She had dropped as low as 5.4 last evening. White count 37.7. Hemoglobin 8.3. Platelets 275. Sodium 126. Potassium 5.5. Chloride 99. Bicarb 18. BUN 60. Creatinine 1.42. Glucose 210. Lactic acid 5.7. AST 2140. ALT 1613. urine cultures pending. Blood cultures are pending. Chest x-ray shows atelectasis at the right lung base with elevated right diaphragm. No heart failure. she remains on vancomycin and cefepime. She is being considered for return to the OR for exploration, washout and likely dural repairs due to her fall event. The patient is seen today 03/09/2022 in follow-up in the intensive care unit. Postoperative day #13 of a T10 to post decompression and fusion. He has now developed GI bleeding. She had 3 bloody stools throughout the night. Her hemoglobin dropped to 6.6. She is receiving 1 unit of packed red blood cells for a total of 4 thus far this admission. Nasogastric tube has been placed. She is maintaining O2 saturations in the 90s on 2 L/m per nasal cannula. She is on norepinephrine at 4 mg/m. She is on D5 abuse with 3 A of bicarb at 75 ML's per hour. Chest x-ray reveals right basilar atelectasis with small effusion. Blood culture positive for enterococcus cloacae. Urine culture positive for gram-negative bacilli. White count 23.9. Hemoglobin 6.6. Platelets 131. Sodium 128. Potassium 4.2. BUN 66. Creatinine 1.25. Bicarb 25. Glucose 243. AST 586. ALT 740. She is continued on vancomycin and cefepime. Remains on Decadron. Objective - Vital Signs Vital signs: Vital Signs Temp 98.8 F 03/09/22 06:47 Pulse 78 03/09/22 09:30 Resp 18 03/09/22 09:30 BP 147/48 03/09/22 06:47 Pulse Ox 97 03/09/22 09:30 FiO2 40 02/25/22 11:10 Intake & Output 03/08/22 03/09/22 03/09/22 18:59 06:59 18:59 Intake Total 2407.014 9907.348 663.230 Output Total 464 1570 375 Balance 1016.993 -225.652 288.230 Weight 140.8 kg Intake: IV 900 1000 250 Cefepime 2 gm In Sodium 100 100 Chloride 0.9% 100 ml @ 25 mls/hr IVPB Q12H MEHUL Rx# :[id number] Dextrose 5% in Water 1, 900 900 150 000 ml @ 75 mls/hr IV . [id number] MEHUL with Sodium Bicarb (1 Meq/ml) 150 ml Rx#:[id number] Intake, IV Titration 20.993 344.348 132.230 Amount Amiodarone 450 mg In 250 38.334 Dextrose 5% in Water 250 ml @ 0.5 MG/MIN 16.667 mls/hr IV .Q15H MEHUL Rx#: [id number] Norepinephrine 32 mg In 20.993 94.348 18.896 Sodium Chloride 0.9% 218 ml @ 0.03 MCG/KG/MIN 1. 938 mls/hr IV .Q24H MEHUL Rx#:[id number] Sodium Chloride 0.9% 1, 75 000 ml @ 75 mls/hr IV . [id number] MEHUL Rx#:[id number] Blood Product 310 0 281 Rc As-1 Unit 310 [id number] Rc Pheresis As-3 Unit 0 281 [id number] Other 250 Rc As-1 Unit 250 [id number] Output: Gastric Drainage 550 Urine 464 1020 375 Other: Voiding Method Indwelling Catheter Indwelling Catheter Indwelling Catheter # Bowel Movements 1 1 ABP, PAP, CO, CI - Last Documented Arterial Blood Pressure 162/50 - Exam GENERAL EXAM: Awake, arousable, morbidly obese 71-year-old female, on 3 L nasal cannula, fairly comfortable in no apparent distress. HEAD: Normocephalic. EYES: Normal reaction of pupils, equal size. NOSE: Is a gastric tube in place. Clear with pink turbinates. THROAT: No erythema or exudates. NECK: No masses, no JVD. CHEST: Large hematoma and edema of the right breast LUNGS: Equal air entry with crackles in the posterior bases. Diminished right b ase. CVS: S1 and S2 normal with no audible murmur, irregular rhythm. ABDOMEN: Obese, unable to appreciate organomegaly, normal bowel sounds, no guarding or rigidity. SPINE: Surgical rito in place. Serosanguineous drainage noted. SKIN: No rashes CENTRAL NERVOUS SYSTEM: No focal deficits, tone is normal in all 4 extremities. EXTREMITIES: There is 1+ peripheral edema. No clubbing, no cyanosis. Peripheral pulses are intact. - Labs CBC & Chem 7: 03/09/22 01:55 03/09/22 01:55 Labs: Abnormal Lab Results - Last 24 Hours (Table) 03/07/22 03/08/22 03/08/22 Range/Units 16:56 10:52 10:52 WBC (3.8-10.6) k/uL RBC (3.80-5.40) m/uL Hgb (11.4-16.0) gm/dL Hct (34.0-46.0) % RDW (11.5-15.5) % Plt Count (150-450) k/uL Neutrophils # (Manual) (1.3-7.7) k/uL Lymphocytes # (Manual) (1.0-4.8) k/uL Monocytes # (Manual) (0-1.0) k/uL Nucleated RBCs (0-0) /100 WBC Sodium 127 L (137-145) mmol/L Chloride (98-107) mmol/L Carbon Dioxide 19 L (22-30) mmol/L BUN 61 H (7-17) mg/dL Creatinine 1.51 H (0.52-1.04) mg/dL Glucose 241 H (74-99) mg/dL POC Glucose (mg/dL) (70-110) mg/dL Osmolality (280-301) mosm/kg Calcium 6.2 L* (8.4-10.2) mg/dL Total Bilirubin (0.2-1.3) mg/dL AST (14-36) U/L ALT (4-34) U/L Total Protein (6.3-8.2) g/dL Albumin (3.5-5.0) g/dL Procalcitonin 1.63 H (0.02-0.09) ng/mL Ur Random Sodium (40-220) mmol/L Crossmatch See Detail 03/08/22 03/08/22 03/08/22 Range/Units 10:52 10:52 11:00 WBC 31.0 H (3.8-10.6) k/uL RBC 2.02 L (3.80-5.40) m/uL Hgb 6.0 L* D (11.4-16.0) gm/dL Hct 18.2 L* (34.0-46.0) % RDW 19.8 H (11.5-15.5) % Plt Count (150-450) k/uL Neutrophils # (Manual) 29.10 H (1.3-7.7) k/uL Lymphocytes # (Manual) 0.93 L (1.0-4.8) k/uL Monocytes # (Manual) 1.24 H (0-1.0) k/uL Nucleated RBCs 3 H (0-0) /100 WBC Sodium (137-145) mmol/L Chloride (98-107) mmol/L Carbon Dioxide (22-30) mmol/L BUN (7-17) mg/dL Creatinine (0.52-1.04) mg/dL Glucose (74-99) mg/dL POC Glucose (mg/dL) (70-110) mg/dL Osmolality 302 H (280-301) mosm/kg Calcium (8.4-10.2) mg/dL Total Bilirubin (0.2-1.3) mg/dL AST (14-36) U/L ALT (4-34) U/L Total Protein (6.3-8.2) g/dL Albumin (3.5-5.0) g/dL Procalcitonin (0.02-0.09) ng/mL Ur Random Sodium 30 L (40-220) mmol/L Crossmatch 03/08/22 03/08/22 03/08/22 Range/Units 12:49 15:40 17:07 WBC 31.0 H (3.8-10.6) k/uL RBC 2.62 L (3.80-5.40) m/uL Hgb 8.0 L D (11.4-16.0) gm/dL Hct 22.8 L (34.0-46.0) % RDW 17.4 H (11.5-15.5) % Plt Count (150-450) k/uL Neutrophils # (Manual) 28.20 H (1.3-7.7) k/uL Lymphocytes # (Manual) (1.0-4.8) k/uL Monocytes # (Manual) 1.55 H (0-1.0) k/uL Nucleated RBCs (0-0) /100 WBC Sodium (137-145) mmol/L Chloride (98-107) mmol/L Carbon Dioxide (22-30) mmol/L BUN (7-17) mg/dL Creatinine (0.52-1.04) mg/dL Glucose (74-99) mg/dL POC Glucose (mg/dL) 244 H 285 H (70-110) mg/dL Osmolality (280-301) mosm/kg Calcium (8.4-10.2) mg/dL Total Bilirubin (0.2-1.3) mg/dL AST (14-36) U/L ALT (4-34) U/L Total Protein (6.3-8.2) g/dL Albumin (3.5-5.0) g/dL Procalcitonin (0.02-0.09) ng/mL Ur Random Sodium (40-220) mmol/L Crossmatch 03/08/22 03/09/22 03/09/22 Range/Units 21:10 01:55 01:55 WBC 23.9 H (3.8-10.6) k/uL RBC 2.19 L (3.80-5.40) m/uL Hgb 6.6 L* (11.4-16.0) gm/dL Hct 18.9 L* (34.0-46.0) % RDW 17.7 H (11.5-15.5) % Plt Count 131 L (150-450) k/uL Neutrophils # (Manual) (1.3-7.7) k/uL Lymphocytes # (Manual) (1.0-4.8) k/uL Monocytes # (Manual) (0-1.0) k/uL Nucleated RBCs (0-0) /100 WBC Sodium 128 L (137-145) mmol/L Chloride 97 L (98-107) mmol/L Carbon Dioxide (22-30) mmol/L BUN 66 H (7-17) mg/dL Creatinine 1.25 H (0.52-1.04) mg/dL Glucose 243 H (74-99) mg/dL POC Glucose (mg/dL) 299 H (70-110) mg/dL Osmolality (280-301) mosm/kg Calcium 6.7 L (8.4-10.2) mg/dL Total Bilirubin 2.9 H (0.2-1.3) mg/dL AST 586 H (14-36) U/L ALT 740 H (4-34) U/L Total Protein 3.7 L (6.3-8.2) g/dL Albumin 2.3 L (3.5-5.0) g/dL Procalcitonin (0.02-0.09) ng/mL Ur Random Sodium (40-220) mmol/L Crossmatch 03/09/22 Range/Units 07:15 WBC (3.8-10.6) k/uL RBC (3.80-5.40) m/uL Hgb (11.4-16.0) gm/dL Hct (34.0-46.0) % RDW (11.5-15.5) % Plt Count (150-450) k/uL Neutrophils # (Manual) (1.3-7.7) k/uL Lymphocytes # (Manual) (1.0-4.8) k/uL Monocytes # (Manual) (0-1.0) k/uL Nucleated RBCs (0-0) /100 WBC Sodium (137-145) mmol/L Chloride (98-107) mmol/L Carbon Dioxide (22-30) mmol/L BUN (7-17) mg/dL Creatinine (0.52-1.04) mg/dL Glucose (74-99) mg/dL POC Glucose (mg/dL) 310 H (70-110) mg/dL Osmolality (280-301) mosm/kg Calcium (8.4-10.2) mg/dL Total Bilirubin (0.2-1.3) mg/dL AST (14-36) U/L ALT (4-34) U/L Total Protein (6.3-8.2) g/dL Albumin (3.5-5.0) g/dL Procalcitonin (0.02-0.09) ng/mL Ur Random Sodium (40-220) mmol/L Crossmatch Microbiology - Last 24 Hours (Table) 03/07/22 16:19 Blood Culture Gram Stain - Preliminary Blood Blood Culture - Preliminary Enterobacter cloacae 03/07/22 13:45 Urine Culture - Preliminary Urine,Voided Gram Neg Bacilli 03/07/22 16:19 Blood Culture - Final Blood 03/07/22 16:28 Blood Culture - Preliminary Blood No Growth after 24 hours Assessment and Plan Assessment: Acute sepsis with hypotension secondary to urinary tract infection with gram- negative bacilli, some serous drainage from the spinal surgery currently on vancomycin and cefepime, requiring norepinephrine. Bacteremia secondary to Enterobacter cloacae Lactic acidosis secondary to above Acute renal failure, creatinine 1.25 Hyperkalemia, improved, current potassium 4.2 Hyponatremia, current sodium 126 Leukocytosis, current white count 37.7 Acute anemia with a hemoglobin dropped to 5.4. Status post 2 units of packed red blood cells, currently 8.3. The patient had developed a large right sided chest wall/breast hematoma suspect secondary to fall on 03/06/2022. The patient has now received 4 units of packed red blood cells and her hemoglobin this mor sean was 6.6. Lumbar decompression/fusion postoperative day #13, developed some foul-smelling serous sanguinous drainage. May require exploration and washout, possible dural repairs due to falls Cardiac arrest, brief pulseless electrical activity encountered in the operating room exact etiology is not clear. Acute hypoxic/hypercapnic respiratory failure secondary to cardiac arrest/pulseless electrical activity, patient was extubated Morbid obesity. BMI of 48.6 History of right hemidiaphragm paralysis History of right-sided breast cancer, previous lumpectomy Chronic atrial fibrillation/flutter, anticoagulated with Xarelto Dyslipidemia Benign essential hypertension Plan: The patient was seen and evaluated Chest x-ray, labs and medications reviewed Currently on cefepime and vancomycin Blood cultures positive for Enterobacter Urine culture positive for gram-negative bacilli Receiving a fourth unit of packed red blood cells today Titrate the norepinephrine as tolerated Hold Xarelto Titrate the FiO2 as tolerated The plan is to return to the OR today for exploration and washout and possible dural repairs We will continue to follow I have personally seen and examined the patient, performed the documentation and the assessment and plan as written. Number of minutes spent on the visit: 15.
[2022-03-09 11:13] LABS: Glucose,Whole Blood 263 mg/dL (70-110)
[2022-03-09 11:16] LABS: Anisocytosis Slight; HCT 21.2 % (34.0-46.0); MCH 28.4 pg (25.0-35.0); MCHC 33.2 g/dL (31.0-37.0); MCV 85.6 fL (80.0-100.0); Mean Platelet Volume 10.4; Platelet Count 96 k/uL (150-450); Poikilocytosis Slight; RBC 2.47 m/uL (3.80-5.40); RDW 17.6 % (11.5-15.5)
--- NOTE | 2022-03-09 11:27 | P.PN ---
Subjective Progress Note Date: 03/09/22 Patient is a 71 yo CF with a hx of A fib s/p ablation, GERD, hypertension, dyslipidemia, and right diaphragmatic paralysis who presented for T10 to Pelvis decompression and fusion with revision. Blood loss and the case was approximately 1900 mL. During her operative course she required phenylephrine IV infusion, Vasopressin IVP. She also received TXA gtt. She received 7 L of lactated Ringer's. She received 1 amp of sodium bicarb intaop. She also received albumin. Her operative course was complicated with a cardiac arrest. During the case she developed A. fib with RVR and then quickly transitioned into bradycardia with a low end-tidal CO2. She received 0.4 of atropine and CPR was started. She received epinephrine 0.5. She achieved ROSC. Total down time was less than 5 minutes. Her levo was weaned overnight. During her sedation holiday she was responding appropriately. She was extubated on 02/25. She continued to do well with struggled with pain. She was downgraded from ICU on 03/03. She was evaluated by PMR. She had been progressing well with PT and OT while waiting on inpatient rehab. 03/07 Patient has complaints of chest pain and shortness of breath. She was hemodynamically stable with BP of 107/56 and P of 72 on 2L NC. CXR was ordered which showed patchy bibasilar opacities, likely atelectasis. CBC showed leukocytosis of 42.3 and Hg of 7.0. BMP showed Na 127, K 6.1, Cl 97, bicarb 14, BUN 43, Cr 1.12. Troponin showed 0.03 with EKG showing Q waves and no ST elevation. She was treated with 1L NS bolus, IV insulin/D50, Albuterol and sodium bicarbonate. Digoxin level was 1.1. Patient was re-evaluated around 2PM. Her BP had dropped to 78/47, heart rate in the 60s. She appeared more lethargic and states her chest pain had resolved. She did complain of dizziness and shortness of breath. She was bolused another 1L NS. BP improved to 80's/50's. Given her change in mental status and hypotensive nature, Dr. Willis was called and accepted the patient for transfuse back to ICU. 03/08 Patient was seen and examined. She reports continued shortness of breath and RLQ abdominal pain. She continues to have bouts of watery diarrhea with blood today. She was started on Levophed last night around 1AM, currently on 15 mcg/kg/min. Currently on D5W at 75 cc/hr. Hemoglobin improved from 5.4 to 8.3 after 2 unit PRBC, 6.0 on repeat. Leukocytosis improved from 41.3 to 31. ABG shows pH 7.47, pCO2 27. CMP shows a 127, bicarb 19, BUN 61, Cr 1.51, Ca 6.2, albumin of 2.1, total bilirubin 2.3, AST 2140, ALT 1613. Lactic acid persistently elevated at 5.7 despite IV hydration. 03/09 Patient was seen and examined. Patient has dark bilious fluid from the NG tube. She has had multiple bloody bowel movements overnight. Hg this morning is 6.6. Another PRBC is being ordered. Patient reports right sided abdominal pain. Currently on Levophed 5 mcg/kg/min. CBC shows WBC count of 23.9 and platelet count of 131. CMP shows Na 128, Cl 97, BUN 66, Cr 1.25, Ca 6.7, T. Bilirubin 2.9, AST 586, ALT 740 and albumin of 2.3. General: ill appearing, mild distress due to pain, appears at stated age, lethargic Derm: warm, dry Head: atraumatic, normocephalic, symmetric Eyes: EOMI, no lid lag, anicteric sclera Mouth: no lip lesion, dry membranes moist Cardiovascular: S1S2 irregular, no murmur Lungs: Decreased BS bilateral, no rhonchi, no rales, no accessory muscle use Ext: no gross muscle atrophy, 1+ LE edema, no contractures Abd: Warren catheter in place. Obese. Tenderness to palpation RLQ with rebound. Back: Midline surgical scar intact. Foul smelling. Serousanguinous discharge. Neuro: Moving all 4 extremities independently, sensation intact to touch BL LE Psych: Alert, oriented, appropriate affect #Septic shock, Enterobacter cloacae bacteremia #Urosepsis #Lactic acidosis Patient meets sepsis criteria with tachypnea, hypotension, leukocytosis. Maintain MAP > 65. Wean Levophed as tolerated. Continue NS at 75 cc/hr. Continue Vancomycin and Cefepime (D3) for broad spectrum antibiotic coverage. UA shows large leukocyte esterase. Blood cultures + Enterobacter cloacae Urine culture gram negative bacilli Trend lactic acid until negative. C.difficile ordered. Telemetry monitoring. Infectious disease and Pulmonology/ICU on board. #Acute blood loss anemia #Right breast hematoma #GI bleed, concern for ischemic bowel Hg 6.6 this morning. 1 unit PRBC ordered. Discontinue Xarelto. CT surgery recommends conservative managment of hematoma. Monitor hemoglobin. Transfuse if Hg < 7. #Abdominal pain #IIeus versus SBO Keep patient NPO. General surgery consulted. Plans for NG tube for gastric decompression. #Acute kidney injury #Hyponatremia Na 128, BUN 66, Cr 1.25 Renal US shows on hydronephrosis on the R, enlarged cyst in the L kidney measuring up to 8.3 cm. BETHANY likely due to ATN from septic shock and hypoNa from poor oral intake. Continue IV hydration. Nephrology on board. #Transaminitis Obstructive LFTs. Likely ischemic hepatitis. Repeat CMP tomorrow morning. #Atrial fibrillation Anticoagulation discontinued due to blood loss. DC Cardizem, Digoxin and Atenolol due to hypotension Cardiology on board. #T10 to pelvis decompression with fusion #Post-op pain Management per Orthopedic surgery. Gabapentin, Valium, Flexeril. Decadron. Continue with Dilaudid and Percocet PRN. Patient has no stairs and planning on going home, she has nearby help from family but lives alone. PT and OT consulted. PMR consulted. #Aborted sudden cardiac Cardiology on board. Echocardiogram shows EF 35-40% with moderate MR. #Systolic CHF Echo shows EF 35-40% with severe pulmonary HTN, moderate MR. Patient will need ischemic workup. Patient would benefit from ACEi and Aldactone prior to discharge. Cardiology on board. #Right diaphragmatic paralysis Aggressive pulmonary hygiene. Pulmonology on board. #HLD Statin. #HTN Cardizem, Digoxin and Atenolol due to hypotension. Monitor vitals and adjust medication if necessary. Resolved: Hyperkalemia Objective - Vital Signs Vital signs: Vital Signs Temp 98.8 F 03/09/22 06:47 Pulse 78 03/09/22 09:30 Resp 18 03/09/22 09:30 BP 147/48 03/09/22 06:47 Pulse Ox 97 03/09/22 09:30 FiO2 40 02/25/22 11:10 Intake & Output 03/08/22 03/09/22 03/09/22 18:59 06:59 18:59 Intake Total 1328.708 7899.348 713.230 Output Total 464 1570 525 Balance 1016.993 -225.652 188.230 Weight 140.8 kg Intake: IV 900 1000 150 Cefepime 2 gm In Sodium 100 0 Chloride 0.9% 100 ml @ 25 mls/hr IVPB Q12H [facility] Rx# :[id number] Dextrose 5% in Water 1, 900 900 150 000 ml @ 75 mls/hr IV . [id number] ME[facility]UL with Sodium Bicarb (1 Meq/ml) 150 ml Rx#:[id number] Intake, IV Titration 20.993 344.348 282.230 Amount Amiodarone 450 mg In 250 38.334 Dextrose 5% in Water 250 ml @ 0.5 MG/MIN 16.667 mls/hr IV .Q15H [facility] Rx#: [id number] Norepinephrine 32 mg In 20.993 94.348 18.896 Sodium Chloride 0.9% 218 ml @ 0.03 MCG/KG/MIN 1. 938 mls/hr IV .Q24H [facility] Rx#:[id number] Sodium Chloride 0.9% 1, 225 000 ml @ 75 mls/hr IV . [id number] [facility] Rx#:[id number] Blood Product 310 0 281 Rc As-1 Unit 310 [id number] Rc Pheresis As-3 Unit 0 281 [id number] Other 250 Rc As-1 Unit 250 [id number] Output: Gastric Drainage 550 Urine 464 1020 525 Other: Voiding Method Indwelling Catheter Indwelling Catheter Indwelling Catheter # Bowel Movements 1 1 ABP, PAP, CO, CI - Last Documented Arterial Blood Pressure 162/50 - Labs CBC & Chem 7: 03/09/22 01:55 03/09/22 01:55 Labs: Abnormal Lab Results - Last 24 Hours (Table) 03/07/22 03/08/22 03/08/22 Range/Units 16:56 10:52 10:52 WBC (3.8-10.6) k/uL RBC (3.80-5.40) m/uL Hgb (11.4-16.0) gm/dL Hct (34.0-46.0) % RDW (11.5-15.5) % Plt Count (150-450) k/uL Neutrophils # (Manual) (1.3-7.7) k/uL Lymphocytes # (Manual) (1.0-4.8) k/uL Monocytes # (Manual) (0-1.0) k/uL Nucleated RBCs (0-0) /100 WBC Sodium 127 L (137-145) mmol/L Chloride (98-107) mmol/L Carbon Dioxide 19 L (22-30) mmol/L BUN 61 H (7-17) mg/dL Creatinine 1.51 H (0.52-1.04) mg/dL Glucose 241 H (74-99) mg/dL POC Glucose (mg/dL) (70-110) mg/dL Osmolality (280-301) mosm/kg Calcium 6.2 L* (8.4-10.2) mg/dL Total Bilirubin (0.2-1.3) mg/dL AST (14-36) U/L ALT (4-34) U/L Total Protein (6.3-8.2) g/dL Albumin (3.5-5.0) g/dL Procalcitonin 1.63 H (0.02-0.09) ng/mL Ur Random Sodium (40-220) mmol/L Crossmatch See Detail 03/08/22 03/08/22 03/08/22 Range/Units 10:52 10:52 11:00 WBC 31.0 H (3.8-10.6) k/uL RBC 2.02 L (3.80-5.40) m/uL Hgb 6.0 L* D (11.4-16.0) gm/dL Hct 18.2 L* (34.0-46.0) % RDW 19.8 H (11.5-15.5) % Plt Count (150-450) k/uL Neutrophils # (Manual) 29.10 H (1.3-7.7) k/uL Lymphocytes # (Manual) 0.93 L (1.0-4.8) k/uL Monocytes # (Manual) 1.24 H (0-1.0) k/uL Nucleated RBCs 3 H (0-0) /100 WBC Sodium (137-145) mmol/L Chloride (98-107) mmol/L Carbon Dioxide (22-30) mmol/L BUN (7-17) mg/dL Creatinine (0.52-1.04) mg/dL Glucose (74-99) mg/dL POC Glucose (mg/dL) (70-110) mg/dL Osmolality 302 H (280-301) mosm/kg Calcium (8.4-10.2) mg/dL Total Bilirubin (0.2-1.3) mg/dL AST (14-36) U/L ALT (4-34) U/L Total Protein (6.3-8.2) g/dL Albumin (3.5-5.0) g/dL Procalcitonin (0.02-0.09) ng/mL Ur Random Sodium 30 L (40-220) mmol/L Crossmatch 03/08/22 03/08/22 03/08/22 Range/Units 12:49 15:40 17:07 WBC 31.0 H (3.8-10.6) k/uL RBC 2.62 L (3.80-5.40) m/uL Hgb 8.0 L D (11.4-16.0) gm/dL Hct 22.8 L (34.0-46.0) % RDW 17.4 H (11.5-15.5) % Plt Count (150-450) k/uL Neutrophils # (Manual) 28.20 H (1.3-7.7) k/uL Lymphocytes # (Manual) (1.0-4.8) k/uL Monocytes # (Manual) 1.55 H (0-1.0) k/uL Nucleated RBCs (0-0) /100 WBC Sodium (137-145) mmol/L Chloride (98-107) mmol/L Carbon Dioxide (22-30) mmol/L BUN (7-17) mg/dL Creatinine (0.52-1.04) mg/dL Glucose (74-99) mg/dL POC Glucose (mg/dL) 244 H 285 H (70-110) mg/dL Osmolality (280-301) mosm/kg Calcium (8.4-10.2) mg/dL Total Bilirubin (0.2-1.3) mg/dL AST (14-36) U/L ALT (4-34) U/L Total Protein (6.3-8.2) g/dL Albumin (3.5-5.0) g/dL Procalcitonin (0.02-0.09) ng/mL Ur Random Sodium (40-220) mmol/L Crossmatch 03/08/22 03/09/22 03/09/22 Range/Units 21:10 01:55 01:55 WBC 23.9 H (3.8-10.6) k/uL RBC 2.19 L (3.80-5.40) m/uL Hgb 6.6 L* (11.4-16.0) gm/dL Hct 18.9 L* (34.0-46.0) % RDW 17.7 H (11.5-15.5) % Plt Count 131 L (150-450) k/uL Neutrophils # (Manual) (1.3-7.7) k/uL Lymphocytes # (Manual) (1.0-4.8) k/uL Monocytes # (Manual) (0-1.0) k/uL Nucleated RBCs (0-0) /100 WBC Sodium 128 L (137-145) mmol/L Chloride 97 L (98-107) mmol/L Carbon Dioxide (22-30) mmol/L BUN 66 H (7-17) mg/dL Creatinine 1.25 H (0.52-1.04) mg/dL Glucose 243 H (74-99) mg/dL POC Glucose (mg/dL) 299 H (70-110) mg/dL Osmolality (280-301) mosm/kg Calcium 6.7 L (8.4-10.2) mg/dL Total Bilirubin 2.9 H (0.2-1.3) mg/dL AST 586 H (14-36) U/L ALT 740 H (4-34) U/L Total Protein 3.7 L (6.3-8.2) g/dL Albumin 2.3 L (3.5-5.0) g/dL Procalcitonin (0.02-0.09) ng/mL Ur Random Sodium (40-220) mmol/L Crossmatch 03/09/22 03/09/22 Range/Units 07:15 11:11 WBC (3.8-10.6) k/uL RBC (3.80-5.40) m/uL Hgb (11.4-16.0) gm/dL Hct (34.0-46.0) % RDW (11.5-15.5) % Plt Count (150-450) k/uL Neutrophils # (Manual) (1.3-7.7) k/uL Lymphocytes # (Manual) (1.0-4.8) k/uL Monocytes # (Manual) (0-1.0) k/uL Nucleated RBCs (0-0) /100 WBC Sodium (137-145) mmol/L Chloride (98-107) mmol/L Carbon Dioxide (22-30) mmol/L BUN (7-17) mg/dL Creatinine (0.52-1.04) mg/dL Glucose (74-99) mg/dL POC Glucose (mg/dL) 310 H 263 H (70-110) mg/dL Osmolality (280-301) mosm/kg Calcium (8.4-10.2) mg/dL Total Bilirubin (0.2-1.3) mg/dL AST (14-36) U/L ALT (4-34) U/L Total Protein (6.3-8.2) g/dL Albumin (3.5-5.0) g/dL Procalcitonin (0.02-0.09) ng/mL Ur Random Sodium (40-220) mmol/L Crossmatch Microbiology - Last 24 Hours (Table) 03/07/22 16:19 Blood Culture Gram Stain - Preliminary Blood Blood Culture - Preliminary Enterobacter cloacae 03/07/22 13:45 Urine Culture - Preliminary Urine,Voided Gram Neg Bacilli 03/07/22 16:19 Blood Culture - Final Blood 03/07/22 16:28 Blood Culture - Preliminary Blood No Growth after 24 hours
--- NOTE | 2022-03-09 11:30 | P.PN ---
Subjective Progress Note Date: 03/09/22 CHIEF COMPLAINT: Spinal surgery HISTORY OF PRESENT ILLNESS: Patient remains in the ICU. Patient is scheduled for lumbar wound irrigation and debridement with Dr. Alexander today. Surgical service is following regards to patient's GI bleeding. Patient continues to have large maroon bowel movements. He she had 4 maroon stools last night and one stool around 8:00 this morning. Hemoglobin did go from 6-8 after 1 unit of blood yesterday. Patient also reports improvement in her right breast and chest wall discomfort. Hemoglobin this morning 6.6. Patient received another unit of blood. She reports that her abdominal pain has improved. NG tube output has been's bilious with 600 and I'll output since 3:00 this morning. No blood noted to the NG tube. She is currently off of the Levophed. Her vitals are stable. WBC and has come down from 31-23.9 hemoglobin from 8 to 6.6. Sodium is 128 po tassium 4.2 creatinine is 1.25 total bilirubin is 2.9 LFTs are trending downwards. PHYSICAL EXAM: VITAL SIGNS: Reviewed. GENERAL: Well-developed in no acute distress. HEENT: No sclera icterus. Extraocular movements grossly intact. Moist buccal mucosa. Head is atraumatic, normocephalic. CHEST: Hematoma on right side of chest wall is decreasing in size. Her right breast swelling and hematoma is softer. Still has tenderness with palpation. ABDOMEN: Soft. Obese. Nondistended. Nontender. NEUROLOGIC: Alert and oriented. Cranial nerves II through XII grossly intact. ASSESSMENT: 1. Right-sided abdominal pain with bloody stool with hypotension, elevated lactic acid level and elevated WBC. Concerns for possible ischemic colitis 2. Right chest wall and breast hematoma likely due to CPR from cardiac arrest 3. Gastric distention and mild proximal small bowel dilation 4. Acute GI bleed with acute blood loss anemia 5. Sepsis 6. Lumbar decompression/fusion 7. Hyponatremia 8. Hyperkalemia PLAN: -Patient scheduled for EGD today at 1:[address] Arce for further evaluation of GI bleeding -Continue to monitor hemoglobin -Continue monitor for any signs or symptoms of bleeding -Continue supportive care -Continue to keep anticoagulation on hold Physician Marketing Research Coordinator note has been reviewed by physician. Signing provider agrees with the documented findings, assessment, and plan of care. I have personally seen and examined the patient, reviewed the VIDEO TECHNICIAN /PAs history, exam and MDM and agree with the assessment and plan as written. Based on total visit time, I have performed more than 50% of the visit. As above: Patient's abdominal pain improved after gastric decompression. NG output remains bilious overnight however the patient did have additional maroon- colored stools this morning. Hemodynamically she is improved. We'll proceed with EGD prior to her back surgery today to eliminate the possibility of a bleeding duodenal ulcer. Continue supportive care. We'll follow. Objective - Vital Signs Vital signs: Vital Signs Temp 98.8 F 03/09/22 06:47 Pulse 78 03/09/22 09:30 Resp 18 03/09/22 09:30 BP 147/48 03/09/22 06:47 Pulse Ox 97 03/09/22 09:30 FiO2 40 02/25/22 11:10 Intake & Output 03/08/22 03/09/22 03/09/22 18:59 06:59 18:59 Intake Total 3168.772 6680.348 713.230 Output Total 464 1570 525 Balance 1016.993 -225.652 188.230 Weight 140.8 kg Intake: IV 900 1000 150 Cefepime 2 gm In Sodium 100 0 Chloride 0.9% 100 ml @ 25 mls/hr IVPB Q12H [facility] Rx# :[id number] Dextrose 5% in Water 1, 900 900 150 000 ml @ 75 mls/hr IV . [id number] [facility] with Sodium Bicarb (1 Meq/ml) 150 ml Rx#:[id number] Intake, IV Titration 20.993 344.348 282.230 Amount Amiodarone 450 mg In 250 38.334 Dextrose 5% in Water 250 ml @ 0.5 MG/MIN 16.667 mls/hr IV .Q15H [facility] Rx#: [id number] Norepinephrine 32 mg In 20.993 94.348 18.896 Sodium Chloride 0.9% 218 ml @ 0.03 MCG/KG/MIN 1. 938 mls/hr IV .Q24H [facility] Rx#:[id number] Sodium Chloride 0.9% 1, 225 000 ml @ 75 mls/hr IV . [id number] [facility] Rx#:[id number] Blood Product 310 0 281 Rc As-1 Unit 310 [id number] Rc Pheresis As-3 Unit 0 281 [id number] Other 250 Rc As-1 Unit 250 [id number] Output: Gastric Drainage 550 Urine 464 1020 525 Other: Voiding Method Indwelling Catheter Indwelling Catheter Indwelling Catheter # Bowel Movements 1 1 ABP, PAP, CO, CI - Last Documented Arterial Blood Pressure 162/50 - Labs CBC & Chem 7: 03/09/22 10:55 03/09/22 01:55 Labs: Abnormal Lab Results - Last 24 Hours (Table) 03/07/22 03/08/22 03/08/22 Range/Units 16:56 10:52 10:52 WBC (3.8-10.6) k/uL RBC (3.80-5.40) m/uL Hgb (11.4-16.0) gm/dL Hct (34.0-46.0) % RDW (11.5-15.5) % Plt Count (150-450) k/uL Neutrophils # (Manual) (1.3-7.7) k/uL Lymphocytes # (Manual) (1.0-4.8) k/uL Monocytes # (Manual) (0-1.0) k/uL Nucleated RBCs (0-0) /100 WBC Sodium 127 L (137-145) mmol/L Chloride (98-107) mmol/L Carbon Dioxide 19 L (22-30) mmol/L BUN 61 H (7-17) mg/dL Creatinine 1.51 H (0.52-1.04) mg/dL Glucose 241 H (74-99) mg/dL POC Glucose (mg/dL) (70-110) mg/dL Osmolality (280-301) mosm/kg Calcium 6.2 L* (8.4-10.2) mg/dL Total Bilirubin (0.2-1.3) mg/dL AST (14-36) U/L ALT (4-34) U/L Total Protein (6.3-8.2) g/dL Albumin (3.5-5.0) g/dL Procalcitonin 1.63 H (0.02-0.09) ng/mL Ur Random Sodium (40-220) mmol/L Crossmatch See Detail 03/08/22 03/08/22 03/08/22 Range/Units 10:52 10:52 11:00 WBC 31.0 H (3.8-10.6) k/uL RBC 2.02 L (3.80-5.40) m/uL Hgb 6.0 L* D (11.4-16.0) gm/dL Hct 18.2 L* (34.0-46.0) % RDW 19.8 H (11.5-15.5) % Plt Count (150-450) k/uL Neutrophils # (Manual) 29.10 H (1.3-7.7) k/uL Lymphocytes # (Manual) 0.93 L (1.0-4.8) k/uL Monocytes # (Manual) 1.24 H (0-1.0) k/uL Nucleated RBCs 3 H (0-0) /100 WBC Sodium (137-145) mmol/L Chloride (98-107) mmol/L Carbon Dioxide (22-30) mmol/L BUN (7-17) mg/dL Creatinine (0.52-1.04) mg/dL Glucose (74-99) mg/dL POC Glucose (mg/dL) (70-110) mg/dL Osmolality 302 H (280-301) mosm/kg Calcium (8.4-10.2) mg/dL Total Bilirubin (0.2-1.3) mg/dL AST (14-36) U/L ALT (4-34) U/L Total Protein (6.3-8.2) g/dL Albumin (3.5-5.0) g/dL Procalcitonin (0.02-0.09) ng/mL Ur Random Sodium 30 L (40-220) mmol/L Crossmatch 03/08/22 03/08/22 03/08/22 Range/Units 12:49 15:40 17:07 WBC 31.0 H (3.8-10.6) k/uL RBC 2.62 L (3.80-5.40) m/uL Hgb 8.0 L D (11.4-16.0) gm/dL Hct 22.8 L (34.0-46.0) % RDW 17.4 H (11.5-15.5) % Plt Count (150-450) k/uL Neutrophils # (Manual) 28.20 H (1.3-7.7) k/uL Lymphocytes # (Manual) (1.0-4.8) k/uL Monocytes # (Manual) 1.55 H (0-1.0) k/uL Nucleated RBCs (0-0) /100 WBC Sodium (137-145) mmol/L Chloride (98-107) mmol/L Carbon Dioxide (22-30) mmol/L BUN (7-17) mg/dL Creatinine (0.52-1.04) mg/dL Glucose (74-99) mg/dL POC Glucose (mg/dL) 244 H 285 H (70-110) mg/dL Osmolality (280-301) mosm/kg Calcium (8.4-10.2) mg/dL Total Bilirubin (0.2-1.3) mg/dL AST (14-36) U/L ALT (4-34) U/L Total Protein (6.3-8.2) g/dL Albumin (3.5-5.0) g/dL Procalcitonin (0.02-0.09) ng/mL Ur Random Sodium (40-220) mmol/L Crossmatch 03/08/22 03/09/22 03/09/22 Range/Units 21:10 01:55 01:55 WBC 23.9 H (3.8-10.6) k/uL RBC 2.19 L (3.80-5.40) m/uL Hgb 6.6 L* (11.4-16.0) gm/dL Hct 18.9 L* (34.0-46.0) % RDW 17.7 H (11.5-15.5) % Plt Count 131 L (150-450) k/uL Neutrophils # (Manual) (1.3-7.7) k/uL Lymphocytes # (Manual) (1.0-4.8) k/uL Monocytes # (Manual) (0-1.0) k/uL Nucleated RBCs (0-0) /100 WBC Sodium 128 L (137-145) mmol/L Chloride 97 L (98-107) mmol/L Carbon Dioxide (22-30) mmol/L BUN 66 H (7-17) mg/dL Creatinine 1.25 H (0.52-1.04) mg/dL Glucose 243 H (74-99) mg/dL POC Glucose (mg/dL) 299 H (70-110) mg/dL Osmolality (280-301) mosm/kg Calcium 6.7 L (8.4-10.2) mg/dL Total Bilirubin 2.9 H (0.2-1.3) mg/dL AST 586 H (14-36) U/L ALT 740 H (4-34) U/L Total Protein 3.7 L (6.3-8.2) g/dL Albumin 2.3 L (3.5-5.0) g/dL Procalcitonin (0.02-0.09) ng/mL Ur Random Sodium (40-220) mmol/L Crossmatch 03/09/22 03/09/22 Range/Units 07:15 11:11 WBC (3.8-10.6) k/uL RBC (3.80-5.40) m/uL Hgb (11.4-16.0) gm/dL Hct (34.0-46.0) % RDW (11.5-15.5) % Plt Count (150-450) k/uL Neutrophils # (Manual) (1.3-7.7) k/uL Lymphocytes # (Manual) (1.0-4.8) k/uL Monocytes # (Manual) (0-1.0) k/uL Nucleated RBCs (0-0) /100 WBC Sodium (137-145) mmol/L Chloride (98-107) mmol/L Carbon Dioxide (22-30) mmol/L BUN (7-17) mg/dL Creatinine (0.52-1.04) mg/dL Glucose (74-99) mg/dL POC Glucose (mg/dL) 310 H 263 H (70-110) mg/dL Osmolality (280-301) mosm/kg Calcium (8.4-10.2) mg/dL Total Bilirubin (0.2-1.3) mg/dL AST (14-36) U/L ALT (4-34) U/L Total Protein (6.3-8.2) g/dL Albumin (3.5-5.0) g/dL Procalcitonin (0.02-0.09) ng/mL Ur Random Sodium (40-220) mmol/L Crossmatch Microbiology - Last 24 Hours (Table) 03/07/22 16:19 Blood Culture Gram Stain - Preliminary Blood Blood Culture - Preliminary Enterobacter cloacae 03/07/22 13:45 Urine Culture - Preliminary Urine,Voided Gram Neg Bacilli 03/07/22 16:19 Blood Culture - Final Blood 03/07/22 16:28 Blood Culture - Preliminary Blood No Growth after 24 hours
[2022-03-09 13:13] LABS: Band Neutrophils % 1 %; Lymphocytes # (M) 0.42 k/uL (1.0-4.8); Monocytes # (M) 0.28 k/uL (0-1.0); Neutrophils % (M) 95 %; Nucleated Red Blood Cells 4 /100 WBC (0-0); Polychromasia Present; Total Cells Counted 200
[2022-03-09] MEDS ORDERED: propofoL 100 ML IV ONE (13:20)
[2022-03-09] MEDS ORDERED: ETOMIDATE 2 MG/ML 10 ML VIAL ONE (13:48)
[2022-03-09] MEDS ORDERED: PROPOFOL 10 MG/ML 20 ML VIAL IV ONE (13:48)
[2022-03-09] MEDS ORDERED: SUCCINYLCHOLINE CHLORIDE 200 MG/10 ML VIAL IV ONE (13:48)
--- NOTE | 2022-03-09 14:23 | P.PCN ---
Date of Procedure: 03/09/22 Procedure(s) Performed: Preoperative Dx: GI bleeding Postoperative Dx: Mild gastritis, mild esophagitis, no active bleeding Procedure: EGD Anesthesia: General anesthesia Endoscopist: Dr. Arce Specimens: None Endoscopic Procedure: The patient was kept on the ICU bed for the procedure. She was placed under general anesthesia since she was going for back surgery later today. The Olympus gastroscope was inserted into the oropharynx and passed under direct visualization to the region of the third portion of the duodenum. From that point the scope was slowly withdrawn inspecting all surfaces carefully. There were no neoplastic inflammatory or polypoid lesions throughout the duodenum. There was bile present throughout the duodenum. The pylorus was widely patent. The stomach was carefully inspected. There was mild gastritis present which may be on the basis of the indwelling nasogastric tube. No ulcers were seen. Retroflexion revealed a normal hiatus. The esophagus was then carefully examined. There was evidence of mild esophagitis. Again this may be related to the indwelling nasogastric tube.
[2022-03-09 14:44] LABS: ABG HCO3 27 mmol/L (21-25); ABG PCO2 40 mmHg (35-45); ABG PH 7.44 (7.35-7.45); ABG PO2 >400 mmHg (83-108); ABG TCO2 28 mmol/L (19-24); Allen Test Performed? Yes
[2022-03-09] MEDS ORDERED: ROCURONIUM 10 MG/ML (5 ML VIAL) IV ONE (15:49)
[2022-03-09] MEDS ORDERED: fentaNYL (PF) 50 MCG/ML 2 ML AMP ONE (15:49)
[2022-03-09] MEDS ORDERED: ePHEDrine 50 MG/ML 1 ML VIAL ONE (15:49)
[2022-03-09] MEDS ORDERED: KETAMINE 10 MG/ML 20 ML VIAL ONE (15:49)
[2022-03-09] MEDS ORDERED: PHENYLEPHRINE-0.9% NACL SYG 1,000 MCG/10 ML SYRINGE ONE (15:49)
[2022-03-09] MEDS ORDERED: MIDAZOLAM 2 MG/2 ML VIAL ONE (15:49)
[2022-03-09] MEDS ORDERED: SODIUM CHLORIDE 0.9% 1,000 ML IV ONE (15:49)
[2022-03-09] MEDS ORDERED: ALBUMIN HUMAN 5% (12.5gm) 250 ML BOTTLE IVPB ONE (15:49)
[2022-03-09] MEDS ORDERED: GELATIN SPONGE,ABSORB (LARGE) 1 EACH SPONGE TOPICAL ONE (16:35)
[2022-03-09] MEDS ORDERED: THROMBIN (BOVINE) 5,000 UNIT VIAL TOPICAL ONE (16:35)
[2022-03-09] MEDS: VANCOMYCIN 2,000 MG in SODIUM CHLORIDE 0.9% 500 ML 500 ML IVPB SCH (17:04)
[2022-03-09 17:40] LABS: Anisocytosis Slight; HCT 22.5 % (34.0-46.0); HGB 8.1 gm/dL (11.4-16.0); MCHC 35.9 g/dL (31.0-37.0); MCV 86.5 fL (80.0-100.0); Poikilocytosis Slight; WBC 15.1 k/uL (3.8-10.6)
[2022-03-09 17:43] LABS: Platelet Count 83 k/uL (150-450)
[2022-03-09 18:54] LABS: Glucose,Whole Blood 228 mg/dL (70-110)
[2022-03-09 20:23] LABS: Glucose,Whole Blood 211 mg/dL (70-110)
[2022-03-09 22:20] LABS: Glucose,Whole Blood 222 mg/dL (70-110)
[2022-03-09] MEDS: CHLORHEXIDINE GLUCONATE 15 ML CUP MUCOUS MEM SCH (22:29)
--- NOTE | 2022-03-09 22:39 | XR ---
EXAMINATION TYPE: XR chest 1V portable DATE OF EXAM: 03/09/2022 COMPARISON: 03/09/2022 HISTORY: Tube placement TECHNIQUE: FINDINGS: There is some atelectasis at the right lung base with elevated right diaphragm. There is bi lateral basilar pulmonary infiltrates. Endotracheal tube is high and 11 cm from the adiel. There is nasogastric tube and the tip is not well seen. Tip is at least in the distal esophagus. No heart fail ure. There are chest leads. IMPRESSION: Endotracheal tube is high and should be advanced 6 cm. There is some infiltrate and atelectasis at both lung bases which is slightly worse than exam this mo rning.
[2022-03-10] MEDS: DEXAMETHASONE SOD PHOSPHATE 4 MG/ML 1 ML VIAL IVP SCH ×3 (01:06→14:25)
[2022-03-10] MEDS: ACETAMINOPHEN TAB 325 MG TAB PO SCH ×5 (01:06→23:08)
[2022-03-10] MEDS: CEFEPIME 2 GM in SODIUM CHLORIDE 0.9% 100 ML IVPB SCH ×2 (02:00→14:25)
[2022-03-10 04:44] LABS: Anisocytosis Slight; HCT 23.1 % (34.0-46.0); HGB 8.2 gm/dL (11.4-16.0); MCH 30.9 pg (25.0-35.0); MCHC 35.4 g/dL (31.0-37.0); MCV 87.2 fL (80.0-100.0); Mean Platelet Volume 10.4; Poikilocytosis Slight; RBC 2.65 m/uL (3.80-5.40); RDW 16.1 % (11.5-15.5); WBC 15.4 k/uL (3.8-10.6)
[2022-03-10 04:55] LABS: Calcium 6.7 mg/dL (8.4-10.2); Platelet Count 94 k/uL (150-450); Potassium 4.2 mmol/L (3.5-5.1)
[2022-03-10 05:26] LABS: Glucose,Whole Blood 183 mg/dL (70-110)
[2022-03-10 05:29] LABS: ABG Base Excess 4.2 mmol/L; ABG HCO3 28 mmol/L (21-25); ABG PCO2 38 mmHg (35-45); ABG PH 7.48 (7.35-7.45); ABG PO2 178 mmHg (83-108); ABG TCO2 29 mmol/L (19-24)
[2022-03-10 05:32] LABS: Allen Test Performed? No
[2022-03-10] MEDS: INSULIN ASPART (NovoLOG) 100 UNIT/ML VIAL SQ SCH ×3 (05:41→21:50)
[2022-03-10] MEDS: HYDROmorphone 1 MG/ML 1 ML SYRINGE IVP PRN ×4 (05:45→19:56)
[2022-03-10] MEDS: LEVOTHYROXINE 88 MCG TAB PO SCH (05:52)
--- NOTE | 2022-03-10 07:45 | XR ---
EXAMINATION TYPE: XR chest 1V portable DATE OF EXAM: 03/10/2022 4:09 AM COMPARISON: Chest radiographs from 03/09/2022 TECHNIQUE: XR chest 1V portable Frontal view of the chest. CLINICAL INDICATION:Female, 71 years old with history of SOB; FINDINGS: Lungs/Pleura: No pleural effusion or pneumothorax. Similar bilateral lower lobe space opacities. Elev ated right hemidiaphragm redemonstrated. Pulmonary vascularity: Unremarkable. Heart/mediastinum: Cardiomediastinal silhouette is unremarkable. Musculoskeletal: No acute osseous pathology. Postsurgical changes involving the thoracolumbar spine w ith orthopedic hardware. Other findings: Surgical clips in the right upper quadrant. Lines/Tubes: Endotracheal tube with distal tip 5.6 cm above the adiel Nasogastric tube with its distal tip and side-port projecting under the diaphragm. IMPRESSION: 1. Similar bibasilar patchy airspace opacities representing infiltrate and/or atelectasis. 2. Support tubes are in appropriate position.
--- NOTE | 2022-03-10 08:01 | P.PN ---
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 Nursing at bedside. Vented and sedated but weaning and waking up. Followed some commands and opens eyes to name. Shook head no for pain. No acute events overnight per nursing. SBP and HR have been much improved as well as her AM labs showing recovery. Still with elevated WBC, kidney and liver labs but improving. No issues currently. Objective - Vital Signs Vital signs: Vital Signs Temp 98 F 03/10/22 04:00 Pulse 81 03/10/22 07:00 Resp 18 03/10/22 07:00 BP 137/66 03/10/22 07:00 Pulse Ox 100 03/10/22 07:00 FiO2 35 03/10/22 07:26 Intake & Output 03/09/22 03/10/22 03/10/22 18:59 06:59 18:59 Intake Total 4291.068 7412.069 75 Output Total 1225 1500 150 Balance 678.230 -53.931 -75 Weight 141.8 kg Intake: IV 750 1000 75 Cefepime 2 gm In Sodium 0 100 Chloride 0.9% 100 ml @ 25 mls/hr IVPB Q12H [facility] Rx# :[id number] Dextrose 5% in Water 1, 450 75 000 ml @ 75 mls/hr IV . [id number] [facility] with Sodium Bicarb (1 Meq/ml) 150 ml Rx#:[id number] Sodium Chloride 0.9% 1, 825 75 000 ml @ 75 mls/hr IV . [id number] [facility] Rx#:[id number] Intake, IV Titration 282.230 105.069 Amount Amiodarone 450 mg In 38.334 Dextrose 5% in Water 250 ml @ 0.5 MG/MIN 16.667 mls/hr IV .Q15H [facility] Rx#: [id number] Norepinephrine 32 mg In 18.896 0 Sodium Chloride 0.9% 218 ml @ 0.03 MCG/KG/MIN 1. 938 mls/hr IV .Q24H [facility] Rx#:[id number] Sodium Chloride 0.9% 1, 225 000 ml @ 75 mls/hr IV . [id number] [facility] Rx#:[id number] propofoL 1,000 mg In 105.069 Empty Bag 1 bag @ 15 MCG/ KG/MIN 12.672 mls/hr IV . [id number] ON LICENSE OF [facility] Rx#:[id number] Blood Product 871 341 Platelet Pheresis Pas 341 Psoralen Unit [id number] Rc As-1 Unit 310 [id number] Rc Pheresis 2 As3 Unit 280 [id number] Rc Pheresis As-3 Unit 281 [id number] Output: Gastric Drainage 350 Drainage 260 Right hemovac 260 Urine 925 890 150 Estimated Blood Loss 300 Other: Voiding Method Indwelling Catheter Indwelling Catheter # Bowel Movements 3 ABP, PAP, CO, CI - Last Documented Arterial Blood Pressure 153/62 - Exam Exam repeated changes noted below. PHYSICAL EXAMINATION: Vitals: BP 142/68 heart rate 80 regularly irregular SpO2 99% on Vent, Breathing over vent temperature normal General: Awake, alert, appropriate for age, in no acute distress. HEENT: No unusual neck masses around region of lateral neck triangle, thyroid, supraclavicular groove. Extremities: Skin warm and dry without no acute lesions, coloration, temperat ure, skin intact, no tenderness or erythema. Integument: Surgical incisions: Dressings CDI Drain in place. 280 serosanguinous fluid overnight. Slightly more clear than normal. Put drain to gravity suction only. Palpation: Special findings: pain with palpation of the right breast area with large hematoma notedas well as anterior chest wall. VASCULAR STATUS : Wrist Pulses: [2/4 bilateral radial and ulnar] Pedal Pulses: [2/4 bilateral DP and PT] Color: [Normal] Edema: some third spacing in bilateral lower extremities and upper extremities but minimal NEUROLOGIC EXAMINATION: Mental Status: Awake and alert, oriented,but slow with normal attention, concentration and memory, and fluent, he has slow speech Cranial Nerves: I: Olfactory not tested. II: Visual acuity normal, no visual field deficit noted with confrontation. III,IV: Normal pupillary reflexes & intact extraocular movements without nystagmus. V,: Intact symmetrical facial sensation. VII: Intact symmetrical facial motor movement VIII: Hearing intact. IX,X: Intact gag, swallow, & normal voice. XI: Sternocleidomastoid, trapezius function intact. XII: Tongue midline with normal movements. Special Tests: L'hermitte's Sign: Absent Straight Leg Raising: Absent Bilateral Motor Exam (0-5/5, N/T) STRENGTH No acute changes. She follows commands and moves ankles, toes, hands and arms but is still fairly sedated REFLEXES Upper Extremity: RIGHT [2]/4 LEFT [2]/4 Lower Extremity: RIGHT [2]/4 LEFT [2]/4 Pathological Reflexes Warren's: RIGHT [Absent] LEFT [Absent] Babinski: RIGHT [Absent] LEFT [Absent] Clonus: RIGHT [None] LEFT [None] SENSORY Intact Gait and Functional Evaluation: Ambulatory aids: max assist with walker - Labs CBC & Chem 7: 03/10/22 04:35 03/10/22 04:35 Labs: Abnormal Lab Results - Last 24 Hours (Table) 03/07/22 03/09/22 03/09/22 Range/Units 16:56 10:55 11:11 WBC 14.0 H (3.8-10.6) k/uL RBC 2.47 L (3.80-5.40) m/uL Hgb 7.0 L (11.4-16.0) gm/dL Hct 21.2 L (34.0-46.0) % RDW 17.6 H (11.5-15.5) % Plt Count 96 L (150-450) k/uL Neutrophils # (Manual) 13.40 H (1.3-7.7) k/uL Lymphocytes # (Manual) 0.42 L (1.0-4.8) k/uL Nucleated RBCs 4 H (0-0) /100 WBC ABG pH (7.35-7.45) ABG pO2 (83-108) mmHg ABG HCO3 (21-25) mmol/L ABG Total CO2 (19-24) mmol/L ABG O2 Saturation (94-97) % Sodium (137-145) mmol/L BUN (7-17) mg/dL Glucose (74-99) mg/dL POC Glucose (mg/dL) 263 H (70-110) mg/dL Calcium (8.4-10.2) mg/dL Crossmatch See Detail 03/09/22 03/09/22 03/09/22 Range/Units 14:33 17:35 18:52 WBC 15.1 H (3.8-10.6) k/uL RBC 2.60 L (3.80-5.40) m/uL Hgb 8.1 L (11.4-16.0) gm/dL Hct 22.5 L (34.0-46.0) % RDW 16.0 H (11.5-15.5) % Plt Count 83 L (150-450) k/uL Neutrophils # (Manual) (1.3-7.7) k/uL Lymphocytes # (Manual) (1.0-4.8) k/uL Nucleated RBCs (0-0) /100 WBC ABG pH (7.35-7.45) ABG pO2 >400 H (83-108) mmHg ABG HCO3 27 H (21-25) mmol/L ABG Total CO2 28 H (19-24) mmol/L ABG O2 Saturation 100.0 H (94-97) % Sodium (137-145) mmol/L BUN (7-17) mg/dL Glucose (74-99) mg/dL POC Glucose (mg/dL) 228 H (70-110) mg/dL Calcium (8.4-10.2) mg/dL Crossmatch 03/09/22 03/09/22 03/10/22 Range/Units 20:22 22:19 04:35 WBC 15.4 H (3.8-10.6) k/uL RBC 2.65 L (3.80-5.40) m/uL Hgb 8.2 L (11.4-16.0) gm/dL Hct 23.1 L (34.0-46.0) % RDW 16.1 H (11.5-15.5) % Plt Count 94 L (150-450) k/uL Neutrophils # (Manual) (1.3-7.7) k/uL Lymphocytes # (Manual) (1.0-4.8) k/uL Nucleated RBCs (0-0) /100 WBC ABG pH (7.35-7.45) ABG pO2 (83-108) mmHg ABG HCO3 (21-25) mmol/L ABG Total CO2 (19-24) mmol/L ABG O2 Saturation (94-97) % Sodium (137-145) mmol/L BUN (7-17) mg/dL Glucose (74-99) mg/dL POC Glucose (mg/dL) 211 H 222 H (70-110) mg/dL Calcium (8.4-10.2) mg/dL Crossmatch 03/10/22 03/10/22 03/10/22 Range/Units 04:35 05:24 05:24 WBC (3.8-10.6) k/uL RBC (3.80-5.40) m/uL Hgb (11.4-16.0) gm/dL Hct (34.0-46.0) % RDW (11.5-15.5) % Plt Count (150-450) k/uL Neutrophils # (Manual) (1.3-7.7) k/uL Lymphocytes # (Manual) (1.0-4.8) k/uL Nucleated RBCs (0-0) /100 WBC ABG pH 7.48 H (7.35-7.45) ABG pO2 178 H (83-108) mmHg ABG HCO3 28 H (21-25) mmol/L ABG Total CO2 29 H (19-24) mmol/L ABG O2 Saturation 100.0 H (94-97) % Sodium 135 L (137-145) mmol/L BUN 51 H (7-17) mg/dL Glucose 194 H (74-99) mg/dL POC Glucose (mg/dL) 183 H (70-110) mg/dL Calcium 6.7 L (8.4-10.2) mg/dL Crossmatch Microbiology - Last 24 Hours (Table) 03/07/22 13:45 Urine Culture - Final Urine,Voided Enterobacter cloacae 03/07/22 16:28 Blood Culture - Preliminary Blood No Growth after 48 hours 03/07/22 16:19 Blood Culture Gram Stain - Preliminary Blood Blood Culture - Preliminary Enterobacter cloacae Assessment and Plan Assessment: 1. 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 surgery, nephrology, ID evaluations -Activity: Lay flat, Bed rest. Turn q2. HOB 10 deg only -Drain to gravity only -Cont Abx for duration of stay -Pain control: Adequate at this time -Meds: reviewed -Trend labs -GI ppx: senna, Miralax -continue Warren changed per protocol -DVT PPX: Mechanical only -Hygiene: Maintain dressing clean and dry. Meticulous cleaning after BMs away from incision site patient has had several instances on the floor where she was covered and bowel movement as well as urine up to her shoulders on her back. The wound needs to be kept meticulously clean. -Encourage IS 10x/hr -Will follow
--- NOTE | 2022-03-10 08:09 | P.PN ---
Subjective Progress Note Date: 03/10/22 Principal diagnosis: Typical atrial flutter Patient is pleasant 71-year-old female with history of persistent typical atrial flutter, paroxysmal atrial fibrillation, hypertension, hyperlipidemia. She follows with Dr. Leger. We are consulted for A flutter. She presented for [facility] back surgery. She underwent back surgery with a long procedure. She was noted to be in atrial flutter throughout the case. After that she became bradycardic and she did have an episode appeared to be brief of severe bradycardia/cardiac arrest and she resuscitated. 03/08/2022 The patient was seen and evaluated this morning. She seems to be hypotensive now require norepinephrine. She remains in atrial flutter with overall controlled heart rate. She is on Cardizem. I'm going to stop the Cardizem and start the patient on amiodarone was bolus and drip giving the low blood pressure requiring vasopressors. Beside that continued oral anticoagulation. Follow-up with the patient. March 092021 The patient was seen and evaluated this morning. She remains in atrial flutter with controlled heart rate. Oral anticoagulation is on hold at this point in the light of bleeding. The hemoglobin this morning is below 7. There is a possibility that the patient might need another back surgery. March 102021 The patient was seen and evaluated this morning beach she underwent another surgery yesterday. She seems to be stable at this point and she is on very small dose of norepinephrine which point to be weaned later on today. Otherwise today she is in normal sinus mechanism. Hemoglobin is a stable. Objective - Vital Signs Vital signs: Vital Signs Temp 98 F 03/10/22 04:00 Pulse 81 03/10/22 07:00 Resp 18 03/10/22 07:00 BP 137/66 03/10/22 07:00 Pulse Ox 100 03/10/22 07:00 FiO2 35 03/10/22 07:26 Intake & Output 03/09/22 03/10/22 03/10/22 18:59 06:59 18:59 Intake Total 5073.720 3196.069 75 Output Total 1225 1500 150 Balance 678.230 -53.931 -75 Weight 141.8 kg Intake: IV 750 1000 75 Cefepime 2 gm In Sodium 0 100 Chloride 0.9% 100 ml @ 25 mls/hr IVPB Q12H [facility] Rx# :[id number] Dextrose 5% in Water 1, 450 75 000 ml @ 75 mls/hr IV . [id number] [facility] with Sodium Bicarb (1 Meq/ml) 150 ml Rx#:[id number] Sodium Chloride 0.9% 1, 825 75 000 ml @ 75 mls/hr IV . [id number] [facility] Rx#:[id number] Intake, IV Titration 282.230 105.069 Amount Amiodarone 450 mg In 38.334 Dextrose 5% in Water 250 ml @ 0.5 MG/MIN 16.667 mls/hr IV .Q15H [facility] Rx#: [id number] Norepinephrine 32 mg In 18.896 0 Sodium Chloride 0.9% 218 ml @ 0.03 MCG/KG/MIN 1. 938 mls/hr IV .Q24H [facility] Rx#:[id number] Sodium Chloride 0.9% 1, 225 000 ml @ 75 mls/hr IV . [id number] [facility] Rx#:[id number] propofoL 1,000 mg In 105.069 Empty Bag 1 bag @ 15 MCG/ KG/MIN 12.672 mls/hr IV . [id number] [facility] Rx#:[id number] Blood Product 871 341 Platelet Pheresis Pas 341 Psoralen Unit [id number] Rc As-1 Unit 310 [id number] Rc Pheresis 2 As3 Unit 280 [id number] Rc Pheresis As-3 Unit 281 [id number] Output: Gastric Drainage 350 Drainage 260 Right hemovac 260 Urine 925 890 150 Estimated Blood Loss 300 Other: Voiding Method Indwelling Catheter Indwelling Catheter # Bowel Movements 3 ABP, PAP, CO, CI - Last Documented Arterial Blood Pressure 153/62 - Constitutional General appearance: Present: no acute distress - Respiratory Respiratory: bilateral: diminished - Cardiovascular Rhythm: regular - Labs CBC & Chem 7: 03/10/22 04:35 03/10/22 04:35 Labs: Abnormal Lab Results - Last 24 Hours (Table) 03/07/22 03/09/22 03/09/22 Range/Units 16:56 10:55 11:11 WBC 14.0 H (3.8-10.6) k/uL RBC 2.47 L (3.80-5.40) m/uL Hgb 7.0 L (11.4-16.0) gm/dL Hct 21.2 L (34.0-46.0) % RDW 17.6 H (11.5-15.5) % Plt Count 96 L (150-450) k/uL Neutrophils # (Manual) 13.40 H (1.3-7.7) k/uL Lymphocytes # (Manual) 0.42 L (1.0-4.8) k/uL Nucleated RBCs 4 H (0-0) /100 WBC ABG pH (7.35-7.45) ABG pO2 (83-108) mmHg ABG HCO3 (21-25) mmol/L ABG Total CO2 (19-24) mmol/L ABG O2 Saturation (94-97) % Sodium (137-145) mmol/L BUN (7-17) mg/dL Glucose (74-99) mg/dL POC Glucose (mg/dL) 263 H (70-110) mg/dL Calcium (8.4-10.2) mg/dL Crossmatch See Detail 03/09/22 03/09/22 03/09/22 Range/Units 14:33 17:35 18:52 WBC 15.1 H (3.8-10.6) k/uL RBC 2.60 L (3.80-5.40) m/uL Hgb 8.1 L (11.4-16.0) gm/dL Hct 22.5 L (34.0-46.0) % RDW 16.0 H (11.5-15.5) % Plt Count 83 L (150-450) k/uL Neutrophils # (Manual) (1.3-7.7) k/uL Lymphocytes # (Manual) (1.0-4.8) k/uL Nucleated RBCs (0-0) /100 WBC ABG pH (7.35-7.45) ABG pO2 >400 H (83-108) mmHg ABG HCO3 27 H (21-25) mmol/L ABG Total CO2 28 H (19-24) mmol/L ABG O2 Saturation 100.0 H (94-97) % Sodium (137-145) mmol/L BUN (7-17) mg/dL Glucose (74-99) mg/dL POC Glucose (mg/dL) 228 H (70-110) mg/dL Calcium (8.4-10.2) mg/dL Crossmatch 03/09/22 03/09/22 03/10/22 Range/Units 20:22 22:19 04:35 WBC 15.4 H (3.8-10.6) k/uL RBC 2.65 L (3.80-5.40) m/uL Hgb 8.2 L (11.4-16.0) gm/dL Hct 23.1 L (34.0-46.0) % RDW 16.1 H (11.5-15.5) % Plt Count 94 L (150-450) k/uL Neutrophils # (Manual) (1.3-7.7) k/uL Lymphocytes # (Manual) (1.0-4.8) k/uL Nucleated RBCs (0-0) /100 WBC ABG pH (7.35-7.45) ABG pO2 (83-108) mmHg ABG HCO3 (21-25) mmol/L ABG Total CO2 (19-24) mmol/L ABG O2 Saturation (94-97) % Sodium (137-145) mmol/L BUN (7-17) mg/dL Glucose (74-99) mg/dL POC Glucose (mg/dL) 211 H 222 H (70-110) mg/dL Calcium (8.4-10.2) mg/dL Crossmatch 03/10/22 03/10/22 03/10/22 Range/Units 04:35 05:24 05:24 WBC (3.8-10.6) k/uL RBC (3.80-5.40) m/uL Hgb (11.4-16.0) gm/dL Hct (34.0-46.0) % RDW (11.5-15.5) % Plt Count (150-450) k/uL Neutrophils # (Manual) (1.3-7.7) k/uL Lymphocytes # (Manual) (1.0-4.8) k/uL Nucleated RBCs (0-0) /100 WBC ABG pH 7.48 H (7.35-7.45) ABG pO2 178 H (83-108) mmHg ABG HCO3 28 H (21-25) mmol/L ABG Total CO2 29 H (19-24) mmol/L ABG O2 Saturation 100.0 H (94-97) % Sodium 135 L (137-145) mmol/L BUN 51 H (7-17) mg/dL Glucose 194 H (74-99) mg/dL POC Glucose (mg/dL) 183 H (70-110) mg/dL Calcium 6.7 L (8.4-10.2) mg/dL Crossmatch Microbiology - Last 24 Hours (Table) 03/07/22 13:45 Urine Culture - Final Urine,Voided Enterobacter cloacae 03/07/22 16:28 Blood Culture - Preliminary Blood No Growth after 48 hours 03/07/22 16:19 Blood Culture Gram Stain - Preliminary Blood Blood Culture - Preliminary Enterobacter cloacae Assessment and Plan Assessment: ASSESSMENT Typical Atrial flutter,with severe bradycardic episode and of the 20s to 30s status post brief round of CPR. Appears mainly related to severe metabolic derangements with severe acidosis during surgery. Status post back surgery Paroxysmal atrial fibrillation Hypertension Hyperlipidemia Cardiomyopathy, ischemic vs non-ischemic Hyperkalemia Back pain Acute kidney injury PLAN Continue the current medical regimen Restart the patient back on oral anticoagulation once she is stable in terms of bleeding The hemoglobin this morning has been stable as well
[2022-03-10] MEDS: PANTOPRAZOLE 40 MG/10 ML VIAL IVP SCH (08:30)
[2022-03-10] MEDS: CHLORHEXIDINE GLUCONATE 15 ML CUP MUCOUS MEM SCH (08:31)
[2022-03-10] MEDS: GABAPENTIN 300 MG CAP PO SCH ×3 (08:31→21:58)
[2022-03-10] MEDS: DULoxetine HCL 60 MG CAPSULE.DR PO SCH (08:31)
[2022-03-10] MEDS: ATORVASTATIN 10 MG TAB PO SCH (08:31)
[2022-03-10] MEDS: HYDROmorphone 0.5 MG/0.5 ML SYRINGE IVP PRN ×2 (09:41→15:15)
[2022-03-10] MEDS: SODIUM CHLORIDE 0.9% 1,000 ML IV SCH ×2 (10:11→12:27)
--- NOTE | 2022-03-10 10:34 | P.PN ---
Subjective Progress Note Date: 03/10/22 Principal diagnosis: back surgery 71 yo CF with a hx of A fib s/p ablation, GERD, hypertension, dyslipidemia, and right diaphragmatic paralysis who presented for T10 to Pelvis decompression and fusion with revision. Blood loss and the case was approximately 1900 mL. During her operative course she required phenylephrine IV infusion, Vasopressin IVP. She also received TXA gtt. She received 7 L of lactated Ringer's. She received 1 amp of sodium bicarb intaop. She also received albumin. Her operative course was complicated with a cardiac arrest. During the case she developed A. fib with RVR and then quickly transitioned into bradycardia with a low end-tidal CO2. She received 0.4 of atropine and CPR was started. She received epinephrine 0.5. She achieved ROSC. Total down time was less than 5 minutes. Her levo was weaned overnight. During her sedation holiday she was responding appropriately. She was extubated on 02/25. She continued to do well with struggled with pain. She was downgraded from ICU on 03/03. She was evaluated by PMR. She had been progressing well with PT and OT while waiting on inpatient rehab. 03/07 Patient has complaints of chest pain and shortness of breath. She was hemodynamically stable with BP of 107/56 and P of 72 on 2L NC. CXR was ordered which showed patchy bibasilar opacities, likely atelectasis. CBC showed leukocytosis of 42.3 and Hg of 7.0. BMP showed Na 127, K 6.1, Cl 97, bicarb 14, BUN 43, Cr 1.12. Troponin showed 0.03 with EKG showing Q waves and no ST elevation. She was treated with 1L NS bolus, IV insulin/D50, Albuterol and sodium bicarbonate. Digoxin level was 1.1. Patient was re-evaluated around 2PM. Her BP had dropped to 78/47, heart rate in the 60s. She appeared more lethargic and states her chest pain had resolved. She did complain of dizziness and shortness of breath. She was bolused another 1L NS. BP improved to 80's/50's. Given her change in mental status and hypotensive nature, Dr. Willis was called and accepted the patient for transfuse back to ICU. 03/08 Patient was seen and examined. She reports continued shortness of breath and RLQ abdominal pain. She continues to have bouts of watery diarrhea with blood today. She was started on Levophed last night around 1AM, currently on 15 mcg/kg/min. Currently on D5W at 75 cc/hr. Hemoglobin improved from 5.4 to 8.3 after 2 unit PRBC, 6.0 on repeat. Leukocytosis improved from 41.3 to 31. ABG shows pH 7.47, pCO2 27. CMP shows a 127, bicarb 19, BUN 61, Cr 1.51, Ca 6.2, albumin of 2.1, total bilirubin 2.3, AST 2140, ALT 1613. Lactic acid persistently elevated at 5.7 despite IV hydration. 03/09 Patient was seen and examined. Patient has dark bilious fluid from the NG tube. She has had multiple bloody bowel movements overnight. Hg this morning is 6.6. Another PRBC is being ordered. Patient reports right sided abdominal pain. Currently on Levophed 5 mcg/kg/min. CBC shows WBC count of 23.9 and platelet count of 131. CMP shows Na 128, Cl 97, BUN 66, Cr 1.25, Ca 6.7, T. Bilirubin 2.9, AST 586, ALT 740 and albumin of 2.3. 03/10: Patent underwent repeat back surgery for cleaning of purulent material around the wound. She has been having black stools according to the nursing staff. She had 6 bowel movements last night. She is currently off pressors. WBC count 15, hemoglobin 8.2, creatinine 0.77, back to baseline. Sodium 135. Objective - Vital Signs Vital signs: Vital Signs Temp 98 F 03/10/22 04:00 Pulse 84 03/10/22 10:00 Resp 14 03/10/22 10:00 BP 137/66 03/10/22 07:00 Pulse Ox 100 03/10/22 10:00 FiO2 35 03/10/22 10:13 Intake & Output 03/09/22 03/10/22 03/10/22 18:59 06:59 18:59 Intake Total 1789.163 7200.069 420.004 Output Total 1225 1500 500 Balance 678.230 -53.931 -79.996 Weight 141.8 kg Intake: IV 750 1000 300 Cefepime 2 gm In Sodium 0 100 Chloride 0.9% 100 ml @ 25 mls/hr IVPB Q12H [facility] Rx# :[id number] Dextrose 5% in Water 1, 450 75 000 ml @ 75 mls/hr IV . [id number] [facility] with Sodium Bicarb (1 Meq/ml) 150 ml Rx#:[id number] Sodium Chloride 0.9% 1, 825 300 000 ml @ 75 mls/hr IV . [id number] [facility] Rx#:[id number] Intake, IV Titration 282.230 105.069 120.004 Amount Amiodarone 450 mg In 38.334 Dextrose 5% in Water 250 ml @ 0.5 MG/MIN 16.667 mls/hr IV .Q15H [facility] Rx#: [id number] Norepinephrine 32 mg In 18.896 0 17.399 Sodium Chloride 0.9% 218 ml @ 0.03 MCG/KG/MIN 1. 938 mls/hr IV .Q24H [facility] Rx#:[id number] Sodium Chloride 0.9% 1, 225 000 ml @ 75 mls/hr IV . [id number] [facility] Rx#:[id number] propofoL 1,000 mg In 105.069 102.605 Empty Bag 1 bag @ 15 MCG/ KG/MIN 12.672 mls/hr IV . [id number] [facility] Rx#:[id number] Blood Product 871 341 Platelet Pheresis Pas 341 Psoralen Unit [id number] Rc As-1 Unit 310 [id number] Rc Pheresis 2 As3 Unit 280 [id number] Rc Pheresis As-3 Unit 281 [id number] Output: Gastric Drainage 350 Drainage 260 80 Left Hemovac 80 Right hemovac 260 Urine 925 890 420 Estimated Blood Loss 300 Other: Voiding Method Indwelling Catheter Indwelling Catheter Indwelling Catheter # Bowel Movements 3 1 ABP, PAP, CO, CI - Last Documented Arterial Blood Pressure 131/56 - Exam General: ill appearing, on mechanical ventilation, responsive, following commands. Derm: warm, dry Head: atraumatic, normocephalic, symmetric Eyes: EOMI, no lid lag, anicteric sclera Mouth: no lip lesion, dry membranes moist Cardiovascular: S1S2 irregular, no murmur Lungs: Decreased BS bilateral, no rhonchi, no rales, no accessory muscle use Ext: no gross muscle atrophy, 1+ LE edema, no contractures Abd: Warren catheter in place. Obese. Tenderness to palpation RLQ with rebound. Back: Midline surgical scar intact. Foul smelling. Serousanguinous discharge. Neuro: Moving all 4 extremities independently - Labs CBC & Chem 7: 03/10/22 04:35 03/10/22 04:35 Labs: Abnormal Lab Results - Last 24 Hours (Table) 03/07/22 03/09/22 03/09/22 Range/Units 16:56 10:55 11:11 WBC 14.0 H (3.8-10.6) k/uL RBC 2.47 L (3.80-5.40) m/uL Hgb 7.0 L (11.4-16.0) gm/dL Hct 21.2 L (34.0-46.0) % RDW 17.6 H (11.5-15.5) % Plt Count 96 L (150-450) k/uL Neutrophils # (Manual) 13.40 H (1.3-7.7) k/uL Lymphocytes # (Manual) 0.42 L (1.0-4.8) k/uL Nucleated RBCs 4 H (0-0) /100 WBC ABG pH (7.35-7.45) ABG pO2 (83-108) mmHg ABG HCO3 (21-25) mmol/L ABG Total CO2 (19-24) mmol/L ABG O2 Saturation (94-97) % Sodium (137-145) mmol/L BUN (7-17) mg/dL Glucose (74-99) mg/dL POC Glucose (mg/dL) 263 H (70-110) mg/dL Calcium (8.4-10.2) mg/dL Crossmatch See Detail 03/09/22 03/09/22 03/09/22 Range/Units 14:33 17:35 18:52 WBC 15.1 H (3.8-10.6) k/uL RBC 2.60 L (3.80-5.40) m/uL Hgb 8.1 L (11.4-16.0) gm/dL Hct 22.5 L (34.0-46.0) % RDW 16.0 H (11.5-15.5) % Plt Count 83 L (150-450) k/uL Neutrophils # (Manual) (1.3-7.7) k/uL Lymphocytes # (Manual) (1.0-4.8) k/uL Nucleated RBCs (0-0) /100 WBC ABG pH (7.35-7.45) ABG pO2 >400 H (83-108) mmHg ABG HCO3 27 H (21-25) mmol/L ABG Total CO2 28 H (19-24) mmol/L ABG O2 Saturation 100.0 H (94-97) % Sodium (137-145) mmol/L BUN (7-17) mg/dL Glucose (74-99) mg/dL POC Glucose (mg/dL) 228 H (70-110) mg/dL Calcium (8.4-10.2) mg/dL Crossmatch 03/09/22 03/09/22 03/10/22 Range/Units 20:22 22:19 04:35 WBC 15.4 H (3.8-10.6) k/uL RBC 2.65 L (3.80-5.40) m/uL Hgb 8.2 L (11.4-16.0) gm/dL Hct 23.1 L (34.0-46.0) % RDW 16.1 H (11.5-15.5) % Plt Count 94 L (150-450) k/uL Neutrophils # (Manual) (1.3-7.7) k/uL Lymphocytes # (Manual) (1.0-4.8) k/uL Nucleated RBCs (0-0) /100 WBC ABG pH (7.35-7.45) ABG pO2 (83-108) mmHg ABG HCO3 (21-25) mmol/L ABG Total CO2 (19-24) mmol/L ABG O2 Saturation (94-97) % Sodium (137-145) mmol/L BUN (7-17) mg/dL Glucose (74-99) mg/dL POC Glucose (mg/dL) 211 H 222 H (70-110) mg/dL Calcium (8.4-10.2) mg/dL Crossmatch 03/10/22 03/10/22 03/10/22 Range/Units 04:35 05:24 05:24 WBC (3.8-10.6) k/uL RBC (3.80-5.40) m/uL Hgb (11.4-16.0) gm/dL Hct (34.0-46.0) % RDW (11.5-15.5) % Plt Count (150-450) k/uL Neutrophils # (Manual) (1.3-7.7) k/uL Lymphocytes # (Manual) (1.0-4.8) k/uL Nucleated RBCs (0-0) /100 WBC ABG pH 7.48 H (7.35-7.45) ABG pO2 178 H (83-108) mmHg ABG HCO3 28 H (21-25) mmol/L ABG Total CO2 29 H (19-24) mmol/L ABG O2 Saturation 100.0 H (94-97) % Sodium 135 L (137-145) mmol/L BUN 51 H (7-17) mg/dL Glucose 194 H (74-99) mg/dL POC Glucose (mg/dL) 183 H (70-110) mg/dL Calcium 6.7 L (8.4-10.2) mg/dL Crossmatch Microbiology - Last 24 Hours (Table) 03/07/22 13:45 Urine Culture - Final Urine,Voided Enterobacter cloacae 03/07/22 16:28 Blood Culture - Preliminary Blood No Growth after 48 hours 03/07/22 16:19 Blood Culture Gram Stain - Preliminary Blood Blood Culture - Preliminary Enterobacter cloacae Assessment and Plan Plan: #Septic shock, Enterobacter cloacae bacteremia #Sepsis, likely secondary to wound infection versus ischemic colitis #Lactic acidosis Patient meets sepsis criteria with tachypnea, hypotension, leukocytosis. Wean Levophed as tolerated--off on 03/10. Continue NS at 75 cc/hr. Continue Vancomycin and Cefepime for broad spectrum antibiotic coverage--infectious disease service following. UA shows large leukocyte esterase. Blood cultures + Enterobacter cloacae Urine culture gram negative bacilli Trend lactic acid until negative. C.difficile ordered. Telemetry monitoring. Pulmonology/ICU on board. #Acute blood loss anemia #Right breast hematoma #GI bleed, concern for ischemic bowel She is status post 4 units of PRBC transfusion. Discontinue Xarelto. CT surgery recommends conservative management of hematoma. Monitor hemoglobin. Transfuse if Hg < 7. #Abdominal pain #IIeus versus SBO Keep patient NPO. General surgery consulted. Placed NG tube for gastric decompression--currently better. #Acute kidney injury #Hyponatremia Resolved Renal US shows on hydronephrosis on the R, enlarged cyst in the L kidney measu ring up to 8.3 cm. BETHANY likely due to ATN from septic shock and hypoNa from poor oral intake. Continue IV hydration. Nephrology on board. #Transaminitis Improved Likely ischemic hepatitis. Repeat CMP tomorrow morning. #Atrial fibrillation Anticoagulation discontinued due to blood loss. DC Cardizem, Digoxin and Atenolol due to hypotension Cardiology on board. #T10 to pelvis decompression with fusion #Post-op pain #Status post second look wound debridement on 03/09 Management per Orthopedic surgery. Gabapentin, Valium, Flexeril. Decadron. Continue with Dilaudid and Percocet PRN. Patient has no stairs and planning on going home, she has nearby help from family but lives alone. PT and OT consulted. PMR consulted. #Aborted sudden cardiac Cardiology on board. Echocardiogram shows EF 35-40% with moderate MR. #Systolic CHF chronic Echo shows EF 35-40% with severe pulmonary HTN, moderate MR. Patient will need ischemic workup. Patient would benefit from ACEi and Aldactone prior to discharge. Cardiology on board. #Right diaphragmatic paralysis Aggressive pulmonary hygiene. Pulmonology on board. #HLD Statin. #HTN Cardizem, Digoxin and Atenolol due to hypotension. Monitor vitals and adjust medication if necessary. Resolved: Hyperkalemia
--- NOTE | 2022-03-10 10:55 | P.PN ---
Subjective Patient is seen in follow-up for acute kidney injury and hyponatremia. Sodium level better. Renal function better. Nonoliguric. Maintain on normal saline. Intubated. Vital signs are stable. General: Resting in bed. HEENT: Intubated. LUNGS:Breath sounds decreased. HEART: Rate and Rhythm are regular. ABDOMEN: Soft, obese. EXTREMITITES: No edema. Objective - Vital Signs Vital signs: Vital Signs Temp 98 F 03/10/22 04:00 Pulse 84 03/10/22 10:00 Resp 14 03/10/22 10:00 BP 137/66 03/10/22 07:00 Pulse Ox 100 03/10/22 10:00 FiO2 35 03/10/22 10:13 Intake & Output 03/09/22 03/10/22 03/10/22 18:59 06:59 18:59 Intake Total 7341.153 7154.069 420.004 Output Total 1225 1500 500 Balance 678.230 -53.931 -79.996 Weight 141.8 kg Intake: IV 750 1000 300 Cefepime 2 gm In Sodium 0 100 Chloride 0.9% 100 ml @ 25 mls/hr IVPB Q12H [facility] Rx# :[id number] Dextrose 5% in Water 1, 450 75 000 ml @ 75 mls/hr IV . [id number] [facility] with Sodium Bicarb (1 Meq/ml) 150 ml Rx#:[id number] Sodium Chloride 0.9% 1, 825 300 000 ml @ 75 mls/hr IV . [id number] [facility] Rx#:[id number] Intake, IV Titration 282.230 105.069 120.004 Amount Amiodarone 450 mg In 38.334 Dextrose 5% in Water 250 ml @ 0.5 MG/MIN 16.667 mls/hr IV .Q15H [facility] Rx#: [id number] Norepinephrine 32 mg In 18.896 0 17.399 Sodium Chloride 0.9% 218 ml @ 0.03 MCG/KG/MIN 1. 938 mls/hr IV .Q24H [facility] Rx#:[id number] Sodium Chloride 0.9% 1, 225 000 ml @ 75 mls/hr IV . [id number] [facility] Rx#:[id number] propofoL 1,000 mg In 105.069 102.605 Empty Bag 1 bag @ 15 MCG/ KG/MIN 12.672 mls/hr IV . Q7H54M [facility] Rx#:[id number] Blood Product 871 341 Platelet Pheresis Pas 341 Psoralen Unit [id number] Rc As-1 Unit 310 [id number] Rc Pheresis 2 As3 Unit 280 [id number] Rc Pheresis As-3 Unit 281 [id number] Output: Gastric Drainage 350 Drainage 260 80 Left Hemovac 80 Right hemovac 260 Urine 925 890 420 Estimated Blood Loss 300 Other: Voiding Method Indwelling Catheter Indwelling Catheter Indwelling Catheter # Bowel Movements 3 1 ABP, PAP, CO, CI - Last Documented Arterial Blood Pressure 131/56 - Labs CBC & Chem 7: 03/10/22 04:35 03/10/22 04:35 Labs: Abnormal Lab Results - Last 24 Hours (Table) 03/07/22 03/09/22 03/09/22 Range/Units 16:56 10:55 11:11 WBC 14.0 H (3.8-10.6) k/uL RBC 2.47 L (3.80-5.40) m/uL Hgb 7.0 L (11.4-16.0) gm/dL Hct 21.2 L (34.0-46.0) % RDW 17.6 H (11.5-15.5) % Plt Count 96 L (150-450) k/uL Neutrophils # (Manual) 13.40 H (1.3-7.7) k/uL Lymphocytes # (Manual) 0.42 L (1.0-4.8) k/uL Nucleated RBCs 4 H (0-0) /100 WBC ABG pH (7.35-7.45) ABG pO2 (83-108) mmHg ABG HCO3 (21-25) mmol/L ABG Total CO2 (19-24) mmol/L ABG O2 Saturation (94-97) % Sodium (137-145) mmol/L BUN (7-17) mg/dL Glucose (74-99) mg/dL POC Glucose (mg/dL) 263 H (70-110) mg/dL Calcium (8.4-10.2) mg/dL Crossmatch See Detail 03/09/22 03/09/22 03/09/22 Range/Units 14:33 17:35 18:52 WBC 15.1 H (3.8-10.6) k/uL RBC 2.60 L (3.80-5.40) m/uL Hgb 8.1 L (11.4-16.0) gm/dL Hct 22.5 L (34.0-46.0) % RDW 16.0 H (11.5-15.5) % Plt Count 83 L (150-450) k/uL Neutrophils # (Manual) (1.3-7.7) k/uL Lymphocytes # (Manual) (1.0-4.8) k/uL Nucleated RBCs (0-0) /100 WBC ABG pH (7.35-7.45) ABG pO2 >400 H (83-108) mmHg ABG HCO3 27 H (21-25) mmol/L ABG Total CO2 28 H (19-24) mmol/L ABG O2 Saturation 100.0 H (94-97) % Sodium (137-145) mmol/L BUN (7-17) mg/dL Glucose (74-99) mg/dL POC Glucose (mg/dL) 228 H (70-110) mg/dL Calcium (8.4-10.2) mg/dL Crossmatch 03/09/22 03/09/22 03/10/22 Range/Units 20:22 22:19 04:35 WBC 15.4 H (3.8-10.6) k/uL RBC 2.65 L (3.80-5.40) m/uL Hgb 8.2 L (11.4-16.0) gm/dL Hct 23.1 L (34.0-46.0) % RDW 16.1 H (11.5-15.5) % Plt Count 94 L (150-450) k/uL Neutrophils # (Manual) (1.3-7.7) k/uL Lymphocytes # (Manual) (1.0-4.8) k/uL Nucleated RBCs (0-0) /100 WBC ABG pH (7.35-7.45) ABG pO2 (83-108) mmHg ABG HCO3 (21-25) mmol/L ABG Total CO2 (19-24) mmol/L ABG O2 Saturation (94-97) % Sodium (137-145) mmol/L BUN (7-17) mg/dL Glucose (74-99) mg/dL POC Glucose (mg/dL) 211 H 222 H (70-110) mg/dL Calcium (8.4-10.2) mg/dL Crossmatch 03/10/22 03/10/22 03/10/22 Range/Units 04:35 05:24 05:24 WBC (3.8-10.6) k/uL RBC (3.80-5.40) m/uL Hgb (11.4-16.0) gm/dL Hct (34.0-46.0) % RDW (11.5-15.5) % Plt Count (150-450) k/uL Neutrophils # (Manual) (1.3-7.7) k/uL Lymphocytes # (Manual) (1.0-4.8) k/uL Nucleated RBCs (0-0) /100 WBC ABG pH 7.48 H (7.35-7.45) ABG pO2 178 H (83-108) mmHg ABG HCO3 28 H (21-25) mmol/L ABG Total CO2 29 H (19-24) mmol/L ABG O2 Saturation 100.0 H (94-97) % Sodium 135 L (137-145) mmol/L BUN 51 H (7-17) mg/dL Glucose 194 H (74-99) mg/dL POC Glucose (mg/dL) 183 H (70-110) mg/dL Calcium 6.7 L (8.4-10.2) mg/dL Crossmatch Microbiology - Last 24 Hours (Table) 03/07/22 13:45 Urine Culture - Final Urine,Voided Enterobacter cloacae 03/07/22 16:28 Blood Culture - Preliminary Blood No Growth after 48 hours 03/07/22 16:19 Blood Culture Gram Stain - Preliminary Blood Blood Culture - Preliminary Enterobacter cloacae Assessment and Plan Plan: Assessment: 1. Acute kidney injury secondary to ATN secondary to septic shock, hemodynamic instability, anemia. Baseline creatinine near 0.6 and peaked at 1.51 this admission - 0.77 today. No hydronephrosis noted in right kidney. Left renal pelvis dilated. 2. Hypovolemic hyponatremia and component of poor solute intake and SIADH from pain. Sodium level 135 today. Urine sodium 30 and urine osmolality 515. Cortisol level not low. TSH normal. 3. Hyperkalemia secondary to acute kidney injury and metabolic acidosis. Resolved. 4. Metabolic acidosis secondary to acute kidney injury, lactic acidosis and IV fluids. Improved. 5. A flutter status post amiodarone drip. Cardiology following. 6. Status post cardiac arrest this admission. 7. Acute blood loss anemia status post blood transfusion this admission. Hemoglobin 8.2 this morning. Noted to have right breast hematoma. Being followed by cardiac thoracic surgery. 8. Septic shock secondary to gram-negative UTI and Enterobacter bacteremia versus postoperative wound infection. Washout done 03/09/2022. Orthopedic surgery following. On IV antibiotics. 9. Chronic systolic CHF with ejection fraction of 35-40% and moderate tricuspid regurgitation and severe pulmonary hypertension. Plan: Maintain normal saline. Status post IV albumin given 03/08/2022. Avoid nephrotoxins. Please call with any questions or concerns.
--- NOTE | 2022-03-10 11:05 | P.PN ---
Subjective Progress Note Date: 03/10/22 Is evaluation of 02/25/2022, the patient is being seen for a follow-up in the intensive care unit. The patient is post laminectomy and fusion/decompression of the spine and this was done on multiple levels. The patient overnight was kept on a mechanical ventilator. This morning, the patient is on propofol which is running at 35 mcg/kg/m. The patient is well sedated and the patient is quite sick sinus with a mechanical ventilator. The patient is requiring no pressors. The patient on normal saline in the at the rate of 50 mL an hour. The patient is on a mechanical ventilator on assist control mode at the rate of 18, tidal volume of 450, FiO2 of 40% with a PEEP of 5. The blood gas from today showed a pH of 7.41 with a pCO2 of 35 and pO2 of 138. Chest x-ray shows smaller lung volumes, some mild elevation of the right hemidiaphragm. ET tube is sitting just at the level of the aortic knob. No evidence of any pneumothorax. No airspace disease or consolidations. The patient also had a CT angiogram that showed no evidence of any pulmonary embolism. That showed atelectatic change in lung bases and various up other lung segments. No effusion. No lung collapse. CAT scan of the lumbosacral spine was also completed. The surgical one-sided dry clean and intact. The Hemovac output is bloody and its minimal at this point in time. The patient is afebrile. The patient is in atrial fibrillation. Rate is controlled. The patient is receiving Dilaudid for pain control.Blood work from today shows a white cell count of 14.7 with a hemoglobin of 10.1 and a platelet count of 232. The patient also has a sodium level of 135, potassium level of 4.4, chloride is 106 with a bicarb of 23 and a BUN of 15 and a creatinine of 0.5. On 02/26/2022, the patient is extubated and the patient is currently on room air oxygen. Pulse ox is around 91%. Chest x-rays showing a small left-sided pleural effusion, atelectatic change in the right lung base. The patient is able to move lower extremities. She has some limited numbness in her fingers the first and second finger and left upper extremity. Otherwise, she is hemodynamically stable. She remained nature fibrillation. She was started on Cardizem drip which is about 5 mg an hour for rate control and this was started yesterday. Her heart rate is under better control. The patient is also on beta blockers and the patient is on atenolol 100 mg by mouth on a daily basis. Pain is under adequate control. She is requiring Dilaudid 1 mg every 3 hours and 0.5 mg every 2 hours on an as-needed basis. She is also receiving Percocet 10/325 mg every 6 hours. She is currently also on IV fluids in the form of normal saline at the rate of 100 mL an hour. She remains on Decadron. Surgical 1 site is clean. The Hemovac has drained approximately 50 mL overnight and the output is minimal as such. No other significant events. No chest pain. No shortness of breath. White second visit 17 with a hemoglobin of 8.7. As such there is a some drop in hemoglobin. BUN is at 20 creatinine of 0.6 and a sodium level is at 135. She is using the incentive spirometer. She is pulling approximately 3000. Reevaluated today on 02/27/22, patient remains in the ICU, patient is doing fairly well. She is on room air, she is in atrial fibrillation, she is relatively asymptomatic. patient has IV fluid at 50 mL per hour, she is off all the different drips otherwise. WBC count is 17.9 hemoglobin is 8.7 and electrolytes are normal BUN is 20 creatinine 0.55. Chest x-ray from 02/26 is basically unremarkable.patient denies any shortness of breath, no cough, no wheezing, no chest pain, no further episodes of nausea or vomiting. Reevaluated today on 02/28/22, patient remains in the ICU as an overflow, she is on room air, not in any distress, but she does have lower extremities weakness and she seems to be generally weak. Continues to have a right triple-lumen catheter in the cervical region, and I'm recommending that we transition to a midline, and discontinue that triple-lumen catheter. Patient denies any shortness of breath, no cough, no wheezing, no major issues overnight. Basic metabolic profile this morning is relatively unremarkable. Reevaluated today on 03/01/22, patient remains as an overflow in the ICU. Doing fairly well, apparently she was up in the chair yesterday at bedside for most of the day. Pain seems to be fairly well controlled. Continues to have weakness, patient is being followed closely by orthopedics. Patient is doing well with incentive spirometry, remains on Xarelto for DVT prophylaxis. She is also on GI prophylaxis. The patient is seen today 03/07/2022 in follow-up in the intensive care unit. Earlier today she became quite obtunded. Hypotensive. Dyspneic. She was transferred back into the intensive care unit. Chest x-ray reveals borderline heart size. Patchy bibasilar opacities probably atelectasis similar to previous exam. She is maintaining good O2 saturations in the upper 90s on 4 L/m per nasal cannula. She is bradycardic. Atrial flutter. Ultrasound of the kidneys and bladder revealed no evidence of hydronephrosis on the right. There is a cystic distended area centrally upper and mid pole left kidney measuring up to 8.3 cm. Suspect parapelvic cyst which has enlarged. Indwelling Warren catheter in place. White count 42.3. Hemoglobin 7.0. Platelets 356. Sodium 127. Potassium 6.1. Chloride 97. Bicarb 14. BUN 43. Creatinine 1.14. Glucose 228. Troponin negative 1. Urinalysis reveals moderate blood. Large leukocytosis esterase HIDA BBC's and many bacteria. She's been initiated on cefepime. She has received 3 L of fluid resuscitation thus far. She was given 1 amp of sodium bicarb. Hyperkalemia was corrected. Follow-up labs are pen ding. Follow-up ABGs are pending. The patient is seen today 03/08/2022 in follow-up in the intensive care unit. Postoperative day #12 of a [id number] decompression and fusion. She is currently resting fairly comfortably in bed. Awake and alert. She is maintaining O2 saturations in the 90s on 3 L/m per nasal cannula. She is D5 W with 3 A of sodium bicarb at 75 ML's per hour. She is requiring norepinephrine at 24 mg/m. Arterial blood gases reveal a P O2 of 110, pCO2 27, pH is 7.47. She is noted to have a right chest wall hematoma. She did fall on 03/06/2022. There is significant ecchymosis and bruising.She has required 2 units of packed red blood cells. Current hemoglobin 8.3. She had dropped as low as 5.4 last evening. White count 37.7. Hemoglobin 8.3. Platelets 275. Sodium 126. Potassium 5.5. Chloride 99. Bicarb 18. BUN 60. Creatinine 1.42. Glucose 210. Lactic acid 5.7. AST 2140. ALT 1613. urine cultures pending. Blood cultures are pending. Chest x-ray shows atelectasis at the right lung base with elevated right diaphragm. No heart failure. she remains on vancomycin and cefepime. She is being considered for return to the OR for exploration, washout and likely dural repairs due to her fall event. The patient is seen today 03/09/2022 in follow-up in the intensive care unit. Postoperative day #13 of a T10 to post decompression and fusion. He has now developed GI bleeding. She had 3 bloody stools throughout the night. Her hemoglobin dropped to 6.6. She is receiving 1 unit of packed red blood cells for a total of 4 thus far this admission. Nasogastric tube has been placed. She is maintaining O2 saturations in the 90s on 2 L/m per nasal cannula. She is on norepinephrine at 4 mg/m. She is on D5 abuse with 3 A of bicarb at 75 ML's per hour. Chest x-ray reveals right basilar atelectasis with small effusion. Blood culture positive for enterococcus cloacae. Urine culture positive for gram-negative bacilli. White count 23.9. Hemoglobin 6.6. Platelets 131. Sodium 128. Potassium 4.2. BUN 66. Creatinine 1.25. Bicarb 25. Glucose 243. AST 586. ALT 740. She is continued on vancomycin and cefepime. Remains on Decadron. The patient is seen today 03/10/2022 in follow-up in the intensive care unit. Postoperative day #14 of a T10 post decompression and fusion. She did go back to the OR yesterday for washout and repair of the dura. Postoperative day #1. Dressing is dry and intact. There is a Hemovac in place. She came back int ubated on the mechanical ventilator with settings of assist control mode at a rate of 14, tidal been 400, FiO2 35% and a PEEP of 5. P O2 178, pCO2 38, pH 7.48 on the 45%. She has normal saline at 75 ML's per hour. She did require small amount of norepinephrine which is currently off. She's on Diprivan at 20 mcg/kg/m. Chest x-ray reveals similar bibasilar opacity patchy airspace opacities presenting infiltrate and/or atelectasis. Endotracheal tube in place. Nasogastric tube in place. She is status post 6 units of packed red blood cells this admission. 1 unit of platelets. Current hemoglobin 8.2. Platelets 94,000. White count 15.4. Sodium 135. Potassium 4.2. Bicarb 29. BUN 51. Creatinine 0.77. Glucose 194. She is continued on vancomycin and cefepime. She remains on Decadron. Blood cultures are positive for Enterobacter, urine culture positive for Enterobacter. She is currently afebrile. Hemodynamically stable. Objective - Vital Signs Vital signs: Vital Signs Temp 98 F 03/10/22 04:00 Pulse 84 03/10/22 10:00 Resp 14 03/10/22 10:00 BP 137/66 03/10/22 07:00 Pulse Ox 100 03/10/22 10:00 FiO2 35 03/10/22 10:13 Intake & Output 03/09/22 03/10/22 03/10/22 18:59 06:59 18:59 Intake Total 6328.685 8482.069 420.004 Output Total 1225 1500 500 Balance 678.230 -53.931 -79.996 Weight 141.8 kg Intake: IV 750 1000 300 Cefepime 2 gm In Sodium 0 100 Chloride 0.9% 100 ml @ 25 mls/hr IVPB Q12H MEHUL Rx# :[id number] Dextrose 5% in Water 1, 450 75 000 ml @ 75 mls/hr IV . [id number] MEHUL with Sodium Bicarb (1 Meq/ml) 150 ml Rx#:[id number] Sodium Chloride 0.9% 1, 825 300 000 ml @ 75 mls/hr IV . [id number] MEHUL Rx#:[id number] Intake, IV Titration 282.230 105.069 120.004 Amount Amiodarone 450 mg In 38.334 Dextrose 5% in Water 250 ml @ 0.5 MG/MIN 16.667 mls/hr IV .Q15H MEHUL Rx#: [id number] Norepinephrine 32 mg In 18.896 0 17.399 Sodium Chloride 0.9% 218 ml @ 0.03 MCG/KG/MIN 1. 938 mls/hr IV .Q24H MEHUL Rx#:[id number] Sodium Chloride 0.9% 1, 225 000 ml @ 75 mls/hr IV . [id number] MEHUL Rx#:[id number] propofoL 1,000 mg In 105.069 102.605 Empty Bag 1 bag @ 15 MCG/ KG/MIN 12.672 mls/hr IV . [id number] MEHUL Rx#:[id number] Blood Product 871 341 Platelet Pheresis Pas 341 Psoralen Unit [id number] Rc As-1 Unit 310 [id number] Rc Pheresis 2 As3 Unit 280 [id number] Rc Pheresis As-3 Unit 281 [id number] Output: Gastric Drainage 350 Drainage 260 80 Left Hemovac 80 Right hemovac 260 Urine 925 890 420 Estimated Blood Loss 300 Other: Voiding Method Indwelling Catheter Indwelling Catheter Indwelling Catheter # Bowel Movements 3 1 ABP, PAP, CO, CI - Last Documented Arterial Blood Pressure 131/56 - Exam GENERAL EXAM: Intubated, sedated, morbidly obese 71-year-old female, on dirty 5% FiO2, fairly comfortable in no apparent distress. HEAD: Normocephalic. EYES: Normal reaction of pupils, equal size. NOSE: Is a gastric tube in place. Clear with pink turbinates. THROAT: No erythema or exudates. NECK: No masses, no JVD. CHEST: Large hematoma and edema of the right breast LUNGS: Equal air entry with crackles in the posterior bases. Diminished right base. CVS: S1 and S2 normal with no audible murmur, irregular rhythm. ABDOMEN: Obese, unable to appreciate organomegaly, normal bowel sounds, no guarding or rigidity. SPINE: Surgical rito in place. Dressing dry and intact. Hemovac in place. SKIN: Ecchymosis noted over the right breast and chest area. CENTRAL NERVOUS SYSTEM: No focal deficits, tone is normal in all 4 extremities. EXTREMITIES: There is 1+ peripheral edema. No clubbing, no cyanosis. Peripheral pulses are intact. - Labs CBC & Chem 7: 03/10/22 04:35 03/10/22 04:35 Labs: Abnormal Lab Results - Last 24 Hours (Table) 03/07/22 03/09/22 03/09/22 Range/Units 16:56 10:55 11:11 WBC 14.0 H (3.8-10.6) k/uL RBC 2.47 L (3.80-5.40) m/uL Hgb 7.0 L (11.4-16.0) gm/dL Hct 21.2 L (34.0-46.0) % RDW 17.6 H (11.5-15.5) % Plt Count 96 L (150-450) k/uL Neutrophils # (Manual) 13.40 H (1.3-7.7) k/uL Lymphocytes # (Manual) 0.42 L (1.0-4.8) k/uL Nucleated RBCs 4 H (0-0) /100 WBC ABG pH (7.35-7.45) ABG pO2 (83-108) mmHg ABG HCO3 (21-25) mmol/L ABG Total CO2 (19-24) mmol/L ABG O2 Saturation (94-97) % Sodium (137-145) mmol/L BUN (7-17) mg/dL Glucose (74-99) mg/dL POC Glucose (mg/dL) 263 H (70-110) mg/dL Calcium (8.4-10.2) mg/dL Crossmatch See Detail 03/09/22 03/09/22 03/09/22 Range/Units 14:33 17:35 18:52 WBC 15.1 H (3.8-10.6) k/uL RBC 2.60 L (3.80-5.40) m/uL Hgb 8.1 L (11.4-16.0) gm/dL Hct 22.5 L (34.0-46.0) % RDW 16.0 H (11.5-15.5) % Plt Count 83 L (150-450) k/uL Neutrophils # (Manual) (1.3-7.7) k/uL Lymphocytes # (Manual) (1.0-4.8) k/uL Nucleated RBCs (0-0) /100 WBC ABG pH (7.35-7.45) ABG pO2 >400 H (83-108) mmHg ABG HCO3 27 H (21-25) mmol/L ABG Total CO2 28 H (19-24) mmol/L ABG O2 Saturation 100.0 H (94-97) % Sodium (137-145) mmol/L BUN (7-17) mg/dL Glucose (74-99) mg/dL POC Glucose (mg/dL) 228 H (70-110) mg/dL Calcium (8.4-10.2) mg/dL Crossmatch 03/09/22 03/09/22 03/10/22 Range/Units 20:22 22:19 04:35 WBC 15.4 H (3.8-10.6) k/uL RBC 2.65 L (3.80-5.40) m/uL Hgb 8.2 L (11.4-16.0) gm/dL Hct 23.1 L (34.0-46.0) % RDW 16.1 H (11.5-15.5) % Plt Count 94 L (150-450) k/uL Neutrophils # (Manual) (1.3-7.7) k/uL Lymphocytes # (Manual) (1.0-4.8) k/uL Nucleated RBCs (0-0) /100 WBC ABG pH (7.35-7.45) ABG pO2 (83-108) mmHg ABG HCO3 (21-25) mmol/L ABG Total CO2 (19-24) mmol/L ABG O2 Saturation (94-97) % Sodium (137-145) mmol/L BUN (7-17) mg/dL Glucose (74-99) mg/dL POC Glucose (mg/dL) 211 H 222 H (70-110) mg/dL Calcium (8.4-10.2) mg/dL Crossmatch 03/10/22 03/10/22 03/10/22 Range/Units 04:35 05:24 05:24 WBC (3.8-10.6) k/uL RBC (3.80-5.40) m/uL Hgb (11.4-16.0) gm/dL Hct (34.0-46.0) % RDW (11.5-15.5) % Plt Count (150-450) k/uL Neutrophils # (Manual) (1.3-7.7) k/uL Lymphocytes # (Manual) (1.0-4.8) k/uL Nucleated RBCs (0-0) /100 WBC ABG pH 7.48 H (7.35-7.45) ABG pO2 178 H (83-108) mmHg ABG HCO3 28 H (21-25) mmol/L ABG Total CO2 29 H (19-24) mmol/L ABG O2 Saturation 100.0 H (94-97) % Sodium 135 L (137-145) mmol/L BUN 51 H (7-17) mg/dL Glucose 194 H (74-99) mg/dL POC Glucose (mg/dL) 183 H (70-110) mg/dL Calcium 6.7 L (8.4-10.2) mg/dL Crossmatch Microbiology - Last 24 Hours (Table) 03/07/22 13:45 Urine Culture - Final Urine,Voided Enterobacter cloacae 03/07/22 16:28 Blood Culture - Preliminary Blood No Growth after 48 hours 03/07/22 16:19 Blood Culture Gram Stain - Preliminary Blood Blood Culture - Preliminary Enterobacter cloacae Assessment and Plan Assessment: Acute sepsis with hypotension secondary to urinary tract infection with Enterobacter, some serous drainage from the spinal surgery currently on vancomycin and cefepime, requiring norepinephrine. Bacteremia secondary to Enterobacter cloacae Lactic acidosis secondary to above Acute renal failure, recovered, current creatinine 0.77 Hyperkalemia, improved, current potassium 4.2 Hyponatremia, recovered current sodium 135 Leukocytosis, improved, current white count 15.4 Acute anemia with a hemoglobin dropped to 5.4. The patient had developed a large right sided chest wall/breast hematoma suspect secondary to fall on 03/06/2022. The patient has now received 6 units of packed red blood cells and her hemoglobin this morning was 8.2. Lumbar decompression/fusion postoperative day #14, developed some foul-smelling serous sanguinous drainage. On 03/09/2022 she did require exploration and washout with dural repairs due to falls. Postoperative day #1. Cardiac arrest, brief pulseless electrical activity encountered in the operating room exact etiology is not clear. Acute hypoxic/hypercapnic respiratory failure secondary to cardiac arrest/pulseless electrical activity, patient was extubated Morbid obesity. BMI of 49.0 History of right hemidiaphragm paralysis History of right-sided breast cancer, previous lumpectomy Chronic atrial fibrillation/flutter, anticoagulated with Xarelto Dyslipidemia Benign essential hypertension Plan: The patient was seen and evaluated She was returned to the OR yesterday for a washout and repair of the dura She was kept on the mechanical ventilator overnight Chest x-ray, ABGs, labs and medications reviewed We will plan for an interruption of sedation and weaning trial Plan to extubate the patient this morning if tolerated Currently on cefepime and vancomycin We will continue to follow I have personally seen and examined the patient, performed the documentation and the assessment and plan as written. Number of minutes spent on the visit: 15.
--- NOTE | 2022-03-10 11:20 | CDI ---
Documentation Clarification Form Date: 03/16/2022 From: Sheila Dennis RN, CCDS Admit Date: 02/24/2022 05:34:00 AM Patient Name: Gabrielle Gee Visit Number: [id number] Discharge Date: ATTENTION: The Clinical Documentation Specialists (CDI) and [facility] Coding Staff appreciate your assistance in clarifying documentation. Please respond to the clarification below the line at the bottom and electronically sign. The CDI & [facility] Coding staff will review the response and follow-up if needed. Please note: Queries are made part of the Legal Health Record. If you have any questions, please contact the author of this message via ITS. Dr. Genoveva Meza UTI is documented in the ongoing progress notes starting on 03/08/22. Patient has a Warren catheter inserted on 02/24/22. Additional clarification regarding the etiology of the UTI is requested. History/Risk Factors: Neurogenic claudication, Lumbar spondylosis, Atrial Fibrillation Atrial Flutter, Hypertension, chronic low back pain Clinical Indicators: 71-year-old female underwent extensive lumbar spine surgery on 02/24/22. Progress note: 03/07 Re-Eval at bedside had BP 78/47, heart rate 60. She appeared more lethargic and states her chest pain had resolved. She did complain of dizziness and shortness of breath. Transferred back to ICU. She was ruled in for sepsis and UTI. 03/07 Urinalysis: Urine appearance Turbid, Ur Leukocyte Esterase Large Urine [id number] 03/07 Urine culture: Enterobacter cloacae Lab results: 03/06 WBC 26.1, WBC 03/07 Treatment: ICU Monitoring Cefepime HCL 2 GM IVPB Q 12 HRS 03/07 Decadron 2 MG IVP Q 8 HRS 03/06 Vancomycin 2,000 MG IVPB Q 24 HRS 03/07 (PTD) .9NS 1000 Bolus X3 03/07, Levophed gtt (per orders 03/07-03/10 Warren catheter changed per protocol Please clarify the etiology of the UTI, if known: [ ] UTI related to Warren catheter [ ] UTI not related to Warren catheter [ ] Other condition, please specify [ ] Unable to determine (Template Last Revised: May 2020) Please send to primary or appropriate specialty which would be ID MTDD
[2022-03-10 11:51] LABS: Glucose,Whole Blood 228 mg/dL (70-110)
[2022-03-10] MEDS ORDERED: INSULIN ASPART (NovoLOG) 100 UNIT/ML VIAL SQ SCH (12:00)
--- NOTE | 2022-03-10 12:06 | CDI ---
Documentation Clarification Form Date: 03/10/2022 From: Sheila Dennis RN, CCDS Admit Date: 02/24/2022 05:34:00 AM Patient Name: Gabrielle Gee Visit Number: [id number] Discharge Date: ATTENTION: The Clinical Documentation Specialists (CDI) and [facility] Coding Staff appreciate your assistance in clarifying documentation. Please respond to the clarification below the line at the bottom and electronically sign. The CDI & [facility] Coding staff will review the response and follow-up if needed. Please note: Queries are made part of the Legal Health Record. If you have any questions, please contact the author of this message via ITS. Dr. Edmund Reynolds Conflicting documentation has been found in the medical record. As attending physician, please provide clarification. 03/07 Pulmonary: Acute sepsis with hypotension secondary to urinary tract infection 03/10 Internal Med: Sepsis lively secondary to wound infection, Ischemic colitis History/Risk Factors: Neurogenic claudication, Lumbar spondylosis, Atrial Fibrillation Atrial Flutter, Hypertension, chronic low back pain Clinical Indicators: 71-year-old female underwent extensive lumbar spine surgery on 02/24/22. 03/07 she was hypotensive obtunded transferred back into the intensive care unit. WBC 42.3 HGB 7.0 Ua Large leukocytosis esterase. She was ruled in for sepsis . 03/09 She developed GI bleeding. She had 3 bloody stools throughout the night. Her hemoglobin dropped to 6.6. She has positive blood cultures for enterococcus cloacae, positive urine culture for gram-negative bacilli Treatment: ICU Monitoring Cefepime HCL 2 GM IVPB Q 12 HRS 03/07 Decadron 2 MG IVP Q 8 HRS 03/06 Vancomycin 2,000 MG IVPB Q 24 HRS 03/07 (PTD) .9NS 1000 Bolus X3 03/07, Levophed gtt (per orders 03/07-03/10, Sodium bicarb amp per orders Transfused 1 unit PRBC (total 4 this admission) Please clarify which diagnosis is most appropriate: [ ] Sepsis secondary to wound infection (further specify) [ ] Sepsis Secondary to Ischemic colitis [ ] Sepsis Secondary to UTI [ ] Other (please specify) [ ] Unable to determine (Template Last Revised: May 2020) Sepsis secondary to wound infection, surgical wound in the back MTDD
[2022-03-10] MEDS: NOREPINEPHRINE 32 MG in SODIUM CHLORIDE 0.9% 218 ML IV SCH (12:29)
[2022-03-10] MEDS: SODIUM FERRIC GLUCONAT-SUCROSE 125 MG in SODIUM CHLORIDE 0.9% 100 ML IVPB SCH (13:07)
[2022-03-10] MEDS ORDERED: DEXTROSE 50% SYRINGE 50 ML IVP PRN ×2 (15:26)
--- NOTE | 2022-03-10 16:20 | P.PN ---
Subjective Progress Note Date: 03/10/22 CHIEF COMPLAINT: Spinal surgery HISTORY OF PRESENT ILLNESS: Patient remains in the ICU. Patient status post washout and repair of the dura yesterday with Dr. Alexander. Patient did require to be on mechanical ventilation through the night. She was extubated this morning. Patient continued continues to have blood in his stools but now they are black and tarry. She had 6 black tarry stools last night and one black stool this morning. Nurse also noted hemorrhoids on her exam this morning. Patient received a total of 3 units of blood yesterday and 1 unit of platelets. Afebrile. WBC is 15.4 Hgb 8.2 platelets 94 Na 135 creatinine 0.77 patient had EGD with Dr. Arce yesterday showing mild gastritis, mild esophagitis and no active bleeding. Patient's NG tube was discontinued when she was extubated PHYSICAL EXAM: VITAL SIGNS: Reviewed. GENERAL: Well-developed in no acute distress. HEENT: No sclera icterus. Extraocular movements grossly intact. Moist buccal mucosa. Head is atraumatic, normocephalic. CHEST: Hematoma on right side of chest wall is decreasing in size. Her right breast swelling and hematoma is softer. ABDOMEN: Soft. Obese. Nondistended. Nontender. NEUROLOGIC: Alert and oriented. Cranial nerves II through XII grossly intact. ASSESSMENT: 1. Right-sided abdominal pain with bloody stool with hypotension, elevated lactic acid level and elevated WBC. Concerns for possible ischemic colitis 2. Right chest wall and breast hematoma likely due to CPR from cardiac arrest 3. Gastric distention and mild proximal small bowel dilation 4. Acute GI bleed with acute blood loss anemia 5. Sepsis 6. Lumbar decompression/fusion 7. Hyponatremia 8. Hyperkalemia PLAN: -Start clear liquid diet -Add ensure clear -Continue to monitor hemoglobin -Continue monitor for any signs or symptoms of bleeding -Continue supportive care -Continue to keep anticoagulation on hold Physician Physical Therapy Attendant note has been reviewed by physician. Signing provider agrees with the documented findings, assessment, and plan of care. Objective - Vital Signs Vital signs: Vital Signs Temp 97.8 F 03/10/22 12:00 Pulse 82 03/10/22 12:00 Resp 25 H 03/10/22 12:00 BP 137/66 03/10/22 07:00 Pulse Ox 98 03/10/22 12:00 FiO2 35 03/10/22 10:13 Intake & Output 03/09/22 03/10/22 03/10/22 18:59 06:59 18:59 Intake Total 7348.809 0956.069 570.004 Output Total 1225 1500 675 Balance 678.230 -53.931 -104.996 Weight 141.8 kg Intake: IV 750 1000 450 Cefepime 2 gm In Sodium 0 100 Chloride 0.9% 100 ml @ 25 mls/hr IVPB Q12H [facility] Rx# :[id number] Dextrose 5% in Water 1, 450 75 000 ml @ 75 mls/hr IV . [id number] [facility] with Sodium Bicarb (1 Meq/ml) 150 ml Rx#:[id number] Sodium Chloride 0.9% 1, 825 450 000 ml @ 75 mls/hr IV . [id number] [facility] Rx#:[id number] Intake, IV Titration 282.230 105.069 120.004 Amount Amiodarone 450 mg In 38.334 Dextrose 5% in Water 250 ml @ 0.5 MG/MIN 16.667 mls/hr IV .Q15H [facility] Rx#: [id number] Norepinephrine 32 mg In 18.896 0 17.399 Sodium Chloride 0.9% 218 ml @ 0.03 MCG/KG/MIN 1. 938 mls/hr IV .Q24H [facility] Rx#:[id number] Sodium Chloride 0.9% 1, 225 000 ml @ 75 mls/hr IV . [id number] [facility] Rx#:[id number] propofoL 1,000 mg In 105.069 102.605 Empty Bag 1 bag @ 15 MCG/ KG/MIN 12.672 mls/hr IV . [id number] [facility] Rx#:[id number] Blood Product 871 341 Platelet Pheresis Pas 341 Psoralen Unit [id number] Rc As-1 Unit 310 [id number] Rc Pheresis 2 As3 Unit 280 [id number] Rc Pheresis As-3 Unit 281 [id number] Output: Gastric Drainage 350 Drainage 260 80 Left Hemovac 80 Right hemovac 260 Urine 925 890 595 Estimated Blood Loss 300 Other: Voiding Method Indwelling Catheter Indwelling Catheter Indwelling Catheter # Bowel Movements 3 1 ABP, PAP, CO, CI - Last Documented Arterial Blood Pressure 145/55 - Labs CBC & Chem 7: 03/10/22 04:35 03/10/22 04:35 Labs: Abnormal Lab Results - Last 24 Hours (Table) 03/07/22 03/09/22 03/09/22 Range/Units 16:56 10:55 14:33 WBC 14.0 H (3.8-10.6) k/uL RBC (3.80-5.40) m/uL Hgb (11.4-16.0) gm/dL Hct (34.0-46.0) % RDW (11.5-15.5) % Plt Count 96 L (150-450) k/uL Neutrophils # (Manual) 13.40 H (1.3-7.7) k/uL Lymphocytes # (Manual) 0.42 L (1.0-4.8) k/uL Nucleated RBCs 4 H (0-0) /100 WBC ABG pH (7.35-7.45) ABG pO2 >400 H (83-108) mmHg ABG HCO3 27 H (21-25) mmol/L ABG Total CO2 28 H (19-24) mmol/L ABG O2 Saturation 100.0 H (94-97) % Sodium (137-145) mmol/L BUN (7-17) mg/dL Glucose (74-99) mg/dL POC Glucose (mg/dL) (70-110) mg/dL Calcium (8.4-10.2) mg/dL Crossmatch See Detail 03/09/22 03/09/22 03/09/22 Range/Units 17:35 18:52 20:22 WBC 15.1 H (3.8-10.6) k/uL RBC 2.60 L (3.80-5.40) m/uL Hgb 8.1 L (11.4-16.0) gm/dL Hct 22.5 L (34.0-46.0) % RDW 16.0 H (11.5-15.5) % Plt Count 83 L (150-450) k/uL Neutrophils # (Manual) (1.3-7.7) k/uL Lymphocytes # (Manual) (1.0-4.8) k/uL Nucleated RBCs (0-0) /100 WBC ABG pH (7.35-7.45) ABG pO2 (83-108) mmHg ABG HCO3 (21-25) mmol/L ABG Total CO2 (19-24) mmol/L ABG O2 Saturation (94-97) % Sodium (137-145) mmol/L BUN (7-17) mg/dL Glucose (74-99) mg/dL POC Glucose (mg/dL) 228 H 211 H (70-110) mg/dL Calcium (8.4-10.2) mg/dL Crossmatch 03/09/22 03/10/22 03/10/22 Range/Units 22:19 04:35 04:35 WBC 15.4 H (3.8-10.6) k/uL RBC 2.65 L (3.80-5.40) m/uL Hgb 8.2 L (11.4-16.0) gm/dL Hct 23.1 L (34.0-46.0) % RDW 16.1 H (11.5-15.5) % Plt Count 94 L (150-450) k/uL Neutrophils # (Manual) (1.3-7.7) k/uL Lymphocytes # (Manual) (1.0-4.8) k/uL Nucleated RBCs (0-0) /100 WBC ABG pH (7.35-7.45) ABG pO2 (83-108) mmHg ABG HCO3 (21-25) mmol/L ABG Total CO2 (19-24) mmol/L ABG O2 Saturation (94-97) % Sodium 135 L (137-145) mmol/L BUN 51 H (7-17) mg/dL Glucose 194 H (74-99) mg/dL POC Glucose (mg/dL) 222 H (70-110) mg/dL Calcium 6.7 L (8.4-10.2) mg/dL Crossmatch 03/10/22 03/10/22 03/10/22 Range/Units 05:24 05:24 11:48 WBC (3.8-10.6) k/uL RBC (3.80-5.40) m/uL Hgb (11.4-16.0) gm/dL Hct (34.0-46.0) % RDW (11.5-15.5) % Plt Count (150-450) k/uL Neutrophils # (Manual) (1.3-7.7) k/uL Lymphocytes # (Manual) (1.0-4.8) k/uL Nucleated RBCs (0-0) /100 WBC ABG pH 7.48 H (7.35-7.45) ABG pO2 178 H (83-108) mmHg ABG HCO3 28 H (21-25) mmol/L ABG Total CO2 29 H (19-24) mmol/L ABG O2 Saturation 100.0 H (94-97) % Sodium (137-145) mmol/L BUN (7-17) mg/dL Glucose (74-99) mg/dL POC Glucose (mg/dL) 183 H 228 H (70-110) mg/dL Calcium (8.4-10.2) mg/dL Crossmatch Microbiology - Last 24 Hours (Table) 03/07/22 13:45 Urine Culture - Final Urine,Voided Enterobacter cloacae 03/07/22 16:28 Blood Culture - Preliminary Blood No Growth after 48 hours 03/07/22 16:19 Blood Culture Gram Stain - Preliminary Blood Blood Culture - Preliminary Enterobacter cloacae
[2022-03-10 16:21] LABS: Glucose,Whole Blood 202 mg/dL (70-110)
[2022-03-10 21:26] LABS: Glucose,Whole Blood 223 mg/dL (70-110)
[2022-03-10] MEDS: oxyCODONE-APAP 7.5-325MG 1 EACH TAB PO PRN (21:56)
--- NOTE | 2022-03-11 00:19 | P.PN ---
Subjective Progress Note Date: 03/09/22 Principal diagnosis: UTI and bacteremia Patient is a 71-year-old female with a past medical history difficult for atrial fibrillation flutter hypertension hyperlipidemia hypothyroidism right breast cancer electively admitted to the hospital more than 2 weeks ago 022 for T10 to lumbar spine revision decompression and posterior lateral interbody fusion, patient did have a episode of hypotension and elevated white count requiring admission to the ICU patient did have a positive UA and gram- negative bacteremia and is scheduled for exploration of the thoracolumbar incision and this afternoon On today's evaluation that is 03/09/2022 the patient is afebrile he is breathing comfortably on a nasal cannula oxygen and denies any chest pain no worsening cough or sputum production some abdominal discomfort but no vomiting diarrhea seems to have slowed down per the nursing staff Objective - Vital Signs Vital signs: Vital Signs Temp 98 F 03/09/22 12:00 Pulse 80 03/09/22 12:00 Resp 18 03/09/22 12:00 BP 147/48 03/09/22 06:47 Pulse Ox 96 03/09/22 12:00 FiO2 100 03/09/22 13:56 Intake & Output 03/08/22 03/09/22 03/09/22 18:59 06:59 18:59 Intake Total 6327.797 2336.348 863.230 Output Total 464 1570 725 Balance 1016.993 -225.652 138.230 Weight 140.8 kg Intake: IV 900 1000 300 Cefepime 2 gm In Sodium 100 0 Chloride 0.9% 100 ml @ 25 mls/hr IVPB Q12H [facility] Rx# :[id number] Dextrose 5% in Water 1, 900 900 300 000 ml @ 75 mls/hr IV . [id number] [facility] with Sodium Bicarb (1 Meq/ml) 150 ml Rx#:[id number] Intake, IV Titration 20.993 344.348 282.230 Amount Amiodarone 450 mg In 250 38.334 Dextrose 5% in Water 250 ml @ 0.5 MG/MIN 16.667 mls/hr IV .Q15H [facility] Rx#: [id number] Norepinephrine 32 mg In 20.993 94.348 18.896 Sodium Chloride 0.9% 218 ml @ 0.03 MCG/KG/MIN 1. 938 mls/hr IV .Q24H [facility] Rx#:[id number] Sodium Chloride 0.9% 1, 225 000 ml @ 75 mls/hr IV . [id number] [facility] Rx#:[id number] Blood Product 310 0 281 Rc As-1 Unit 310 [id number] Rc Pheresis As-3 Unit 0 281 [id number] Other 250 Rc As-1 Unit 250 [id number] Output: Gastric Drainage 550 Urine 464 1020 725 Other: Voiding Method Indwelling Catheter Indwelling Catheter Indwelling Catheter # Bowel Movements 1 1 ABP, PAP, CO, CI - Last Documented Arterial Blood Pressure 120/45 - Exam GENERAL DESCRIPTION: An elderly female lying in bed in no distress RESPIRATORY SYSTEM: Unlabored breathing , decreased breath sounds at bases HEART: S1 S2 regular rate and rhythm , ABDOMEN: Soft , no tenderness EXTREMITIES: Diffuse swelling bilateral lower extremity - Labs CBC & Chem 7: 03/10/22 04:35 03/10/22 04:35 Labs: Abnormal Lab Results - Last 24 Hours (Table) 03/07/22 03/08/22 03/08/22 Range/Units 16:56 10:52 11:00 WBC (3.8-10.6) k/uL RBC (3.80-5.40) m/uL Hgb (11.4-16.0) gm/dL Hct (34.0-46.0) % RDW (11.5-15.5) % Plt Count (150-450) k/uL Neutrophils # (Manual) (1.3-7.7) k/uL Lymphocytes # (Manual) (1.0-4.8) k/uL Monocytes # (Manual) (0-1.0) k/uL Nucleated RBCs (0-0) /100 WBC Sodium (137-145) mmol/L Chloride (98-107) mmol/L BUN (7-17) mg/dL Creatinine (0.52-1.04) mg/dL Glucose (74-99) mg/dL POC Glucose (mg/dL) (70-110) mg/dL Calcium (8.4-10.2) mg/dL Total Bilirubin (0.2-1.3) mg/dL AST (14-36) U/L ALT (4-34) U/L Total Protein (6.3-8.2) g/dL Albumin (3.5-5.0) g/dL Procalcitonin 1.63 H (0.02-0.09) ng/mL Ur Random Sodium 30 L (40-220) mmol/L Crossmatch See Detail 03/08/22 03/08/22 03/08/22 Range/Units 15:40 17:07 21:10 WBC 31.0 H (3.8-10.6) k/uL RBC 2.62 L (3.80-5.40) m/uL Hgb 8.0 L D (11.4-16.0) gm/dL Hct 22.8 L (34.0-46.0) % RDW 17.4 H (11.5-15.5) % Plt Count (150-450) k/uL Neutrophils # (Manual) 28.20 H (1.3-7.7) k/uL Lymphocytes # (Manual) (1.0-4.8) k/uL Monocytes # (Manual) 1.55 H (0-1.0) k/uL Nucleated RBCs (0-0) /100 WBC Sodium (137-145) mmol/L Chloride (98-107) mmol/L BUN (7-17) mg/dL Creatinine (0.52-1.04) mg/dL Glucose (74-99) mg/dL POC Glucose (mg/dL) 285 H 299 H (70-110) mg/dL Calcium (8.4-10.2) mg/dL Total Bilirubin (0.2-1.3) mg/dL AST (14-36) U/L ALT (4-34) U/L Total Protein (6.3-8.2) g/dL Albumin (3.5-5.0) g/dL Procalcitonin (0.02-0.09) ng/mL Ur Random Sodium (40-220) mmol/L Crossmatch 03/09/22 03/09/22 03/09/22 Range/Units 01:55 01:55 07:15 WBC 23.9 H (3.8-10.6) k/uL RBC 2.19 L (3.80-5.40) m/uL Hgb 6.6 L* (11.4-16.0) gm/dL Hct 18.9 L* (34.0-46.0) % RDW 17.7 H (11.5-15.5) % Plt Count 131 L (150-450) k/uL Neutrophils # (Manual) (1.3-7.7) k/uL Lymphocytes # (Manual) (1.0-4.8) k/uL Monocytes # (Manual) (0-1.0) k/uL Nucleated RBCs (0-0) /100 WBC Sodium 128 L (137-145) mmol/L Chloride 97 L (98-107) mmol/L BUN 66 H (7-17) mg/dL Creatinine 1.25 H (0.52-1.04) mg/dL Glucose 243 H (74-99) mg/dL POC Glucose (mg/dL) 310 H (70-110) mg/dL Calcium 6.7 L (8.4-10.2) mg/dL Total Bilirubin 2.9 H (0.2-1.3) mg/dL AST 586 H (14-36) U/L ALT 740 H (4-34) U/L Total Protein 3.7 L (6.3-8.2) g/dL Albumin 2.3 L (3.5-5.0) g/dL Procalcitonin (0.02-0.09) ng/mL Ur Random Sodium (40-220) mmol/L Crossmatch 03/09/22 03/09/22 Range/Units 10:55 11:11 WBC 14.0 H (3.8-10.6) k/uL RBC 2.47 L (3.80-5.40) m/uL Hgb 7.0 L (11.4-16.0) gm/dL Hct 21.2 L (34.0-46.0) % RDW 17.6 H (11.5-15.5) % Plt Count 96 L (150-450) k/uL Neutrophils # (Manual) 13.40 H (1.3-7.7) k/uL Lymphocytes # (Manual) 0.42 L (1.0-4.8) k/uL Monocytes # (Manual) (0-1.0) k/uL Nucleated RBCs 4 H (0-0) /100 WBC Sodium (137-145) mmol/L Chloride (98-107) mmol/L BUN (7-17) mg/dL Creatinine (0.52-1.04) mg/dL Glucose (74-99) mg/dL POC Glucose (mg/dL) 263 H (70-110) mg/dL Calcium (8.4-10.2) mg/dL Total Bilirubin (0.2-1.3) mg/dL AST (14-36) U/L ALT (4-34) U/L Total Protein (6.3-8.2) g/dL Albumin (3.5-5.0) g/dL Procalcitonin (0.02-0.09) ng/mL Ur Random Sodium (40-220) mmol/L Crossmatch Microbiology - Last 24 Hours (Table) 03/07/22 16:19 Blood Culture Gram Stain - Preliminary Blood Blood Culture - Preliminary Enterobacter cloacae 03/07/22 13:45 Urine Culture - Preliminary Urine,Voided Gram Neg Bacilli 03/07/22 16:19 Blood Culture - Final Blood 03/07/22 16:28 Blood Culture - Preliminary Blood No Growth after 24 hours Assessment and Plan (1) Gram-negative bacteremia Current Visit: Yes Status: Acute Code(s): R78.81 - BACTEREMIA SNOMED Code(s): 348641781709 Plan: 1patient with SIRS/sepsis in this patient who has been in the hospital for 2 weeks with elective admission to the hospital for thoracolumbar spine revision did have a cardiac arrest requiring resuscitation now with evidence of significant hypertension ileus and elevated white count source possible UTI versus abdominal source however some of the elevated white count could be related to the steroid the patient has been on keeping in mind the process started in the hospital will need to cover for the resistant gram-positive as well as gram-negative. 2patient is growing gram-negative both in the blood in the urine 3-patient to continue with cefepime and vancomycin while waiting for the surgical exploration of her incision if no evidence of any abscess will be able to discontinue the vancomycin Time with Patient: Less than 30
--- NOTE | 2022-03-11 00:21 | P.PN ---
Subjective Progress Note Date: 03/10/22 Principal diagnosis: UTI and bacteremia Patient is a 71-year-old female with a past medical history difficult for atrial fibrillation flutter hypertension hyperlipidemia hypothyroidism right breast cancer electively admitted to the hospital more than 2 weeks ago 022 for T10 to lumbar spine revision decompression and posterior lateral interbody fusion, patient did have a episode of hypotension and elevated white count requiring admission to the ICU patient did have a positive UA and gram- negative bacteremia and is scheduled for exploration of the thoracolumbar incision completed on 03/09/2022 with apparently no evidence of any abscess as reported by the nursing staff On today's evaluation that is 03/10/2022 the patient remains to be afebrile , the patient is breathing comfortably on a nasal cannula oxygen , the patient denies any chest pain no worsening cough or sputum production some abdominal discomfort but no vomiting diarrhea has slowed down Objective - Vital Signs Vital signs: Vital Signs Temp 97.8 F 03/10/22 12:00 Pulse 82 03/10/22 12:00 Resp 25 H 03/10/22 12:00 BP 137/66 03/10/22 07:00 Pulse Ox 98 03/10/22 12:00 FiO2 35 03/10/22 10:13 Intake & Output 03/09/22 03/10/22 03/10/22 18:59 06:59 18:59 Intake Total 7775.865 1207.069 570.004 Output Total 1225 1500 675 Balance 678.230 -53.931 -104.996 Weight 141.8 kg Intake: IV 750 1000 450 Cefepime 2 gm In Sodium 0 100 Chloride 0.9% 100 ml @ 25 mls/hr IVPB Q12H [facility] Rx# :[id number] Dextrose 5% in Water 1, 450 75 000 ml @ 75 mls/hr IV . [id number] [facility] with Sodium Bicarb (1 Meq/ml) 150 ml Rx#:[id number] Sodium Chloride 0.9% 1, 825 450 000 ml @ 75 mls/hr IV . [id number] [facility] Rx#:[id number] Intake, IV Titration 282.230 105.069 120.004 Amount Amiodarone 450 mg In 38.334 Dextrose 5% in Water 250 ml @ 0.5 MG/MIN 16.667 mls/hr IV .Q15H [facility] Rx#: [id number] Norepinephrine 32 mg In 18.896 0 17.399 Sodium Chloride 0.9% 218 ml @ 0.03 MCG/KG/MIN 1. 938 mls/hr IV .Q24H [facility] Rx#:[id number] Sodium Chloride 0.9% 1, 225 000 ml @ 75 mls/hr IV . [id number] [facility] Rx#:[id number] propofoL 1,000 mg In 105.069 102.605 Empty Bag 1 bag @ 15 MCG/ KG/MIN 12.672 mls/hr IV . [id number] [facility] Rx#:[id number] Blood Product 871 341 Platelet Pheresis Pas 341 Psoralen Unit [id number] Rc As-1 Unit 310 [id number] Rc Pheresis 2 As3 Unit 280 [id number] Rc Pheresis As-3 Unit 281 [id number] Output: Gastric Drainage 350 Drainage 260 80 Left Hemovac 80 Right hemovac 260 Urine 925 890 595 Estimated Blood Loss 300 Other: Voiding Method Indwelling Catheter Indwelling Catheter Indwelling Catheter # Bowel Movements 3 1 ABP, PAP, CO, CI - Last Documented Arterial Blood Pressure 145/55 - Exam GENERAL DESCRIPTION: An elderly female lying in bed in no distress RESPIRATORY SYSTEM: Unlabored breathing , decreased breath sounds at bases HEART: S1 S2 regular rate and rhythm , ABDOMEN: Soft , no tenderness EXTREMITIES: Diffuse swelling bilateral lower extremity - Labs CBC & Chem 7: 03/10/22 04:35 03/10/22 04:35 Labs: Abnormal Lab Results - Last 24 Hours (Table) 03/07/22 03/09/22 03/09/22 Range/Units 16:56 10:55 14:33 WBC 14.0 H (3.8-10.6) k/uL RBC (3.80-5.40) m/uL Hgb (11.4-16.0) gm/dL Hct (34.0-46.0) % RDW (11.5-15.5) % Plt Count 96 L (150-450) k/uL Neutrophils # (Manual) 13.40 H (1.3-7.7) k/uL Lymphocytes # (Manual) 0.42 L (1.0-4.8) k/uL Nucleated RBCs 4 H (0-0) /100 WBC ABG pH (7.35-7.45) ABG pO2 >400 H (83-108) mmHg ABG HCO3 27 H (21-25) mmol/L ABG Total CO2 28 H (19-24) mmol/L ABG O2 Saturation 100.0 H (94-97) % Sodium (137-145) mmol/L BUN (7-17) mg/dL Glucose (74-99) mg/dL POC Glucose (mg/dL) (70-110) mg/dL Calcium (8.4-10.2) mg/dL Crossmatch See Detail 03/09/22 03/09/22 03/09/22 Range/Units 17:35 18:52 20:22 WBC 15.1 H (3.8-10.6) k/uL RBC 2.60 L (3.80-5.40) m/uL Hgb 8.1 L (11.4-16.0) gm/dL Hct 22.5 L (34.0-46.0) % RDW 16.0 H (11.5-15.5) % Plt Count 83 L (150-450) k/uL Neutrophils # (Manual) (1.3-7.7) k/uL Lymphocytes # (Manual) (1.0-4.8) k/uL Nucleated RBCs (0-0) /100 WBC ABG pH (7.35-7.45) ABG pO2 (83-108) mmHg ABG HCO3 (21-25) mmol/L ABG Total CO2 (19-24) mmol/L ABG O2 Saturation (94-97) % Sodium (137-145) mmol/L BUN (7-17) mg/dL Glucose (74-99) mg/dL POC Glucose (mg/dL) 228 H 211 H (70-110) mg/dL Calcium (8.4-10.2) mg/dL Crossmatch 03/09/22 03/10/22 03/10/22 Range/Units 22:19 04:35 04:35 WBC 15.4 H (3.8-10.6) k/uL RBC 2.65 L (3.80-5.40) m/uL Hgb 8.2 L (11.4-16.0) gm/dL Hct 23.1 L (34.0-46.0) % RDW 16.1 H (11.5-15.5) % Plt Count 94 L (150-450) k/uL Neutrophils # (Manual) (1.3-7.7) k/uL Lymphocytes # (Manual) (1.0-4.8) k/uL Nucleated RBCs (0-0) /100 WBC ABG pH (7.35-7.45) ABG pO2 (83-108) mmHg ABG HCO3 (21-25) mmol/L ABG Total CO2 (19-24) mmol/L ABG O2 Saturation (94-97) % Sodium 135 L (137-145) mmol/L BUN 51 H (7-17) mg/dL Glucose 194 H (74-99) mg/dL POC Glucose (mg/dL) 222 H (70-110) mg/dL Calcium 6.7 L (8.4-10.2) mg/dL Crossmatch 03/10/22 03/10/22 03/10/22 Range/Units 05:24 05:24 11:48 WBC (3.8-10.6) k/uL RBC (3.80-5.40) m/uL Hgb (11.4-16.0) gm/dL Hct (34.0-46.0) % RDW (11.5-15.5) % Plt Count (150-450) k/uL Neutrophils # (Manual) (1.3-7.7) k/uL Lymphocytes # (Manual) (1.0-4.8) k/uL Nucleated RBCs (0-0) /100 WBC ABG pH 7.48 H (7.35-7.45) ABG pO2 178 H (83-108) mmHg ABG HCO3 28 H (21-25) mmol/L ABG Total CO2 29 H (19-24) mmol/L ABG O2 Saturation 100.0 H (94-97) % Sodium (137-145) mmol/L BUN (7-17) mg/dL Glucose (74-99) mg/dL POC Glucose (mg/dL) 183 H 228 H (70-110) mg/dL Calcium (8.4-10.2) mg/dL Crossmatch Microbiology - Last 24 Hours (Table) 03/07/22 13:45 Urine Culture - Final Urine,Voided Enterobacter cloacae 03/07/22 16:28 Blood Culture - Preliminary Blood No Growth after 48 hours 03/07/22 16:19 Blood Culture Gram Stain - Preliminary Blood Blood Culture - Preliminary Enterobacter cloacae Assessment and Plan (1) Gram-negative bacteremia Current Visit: Yes Status: Acute Code(s): R78.81 - BACTEREMIA SNOMED Code(s): 797096722173 Plan: 1patient with SIRS/sepsis in this patient who has been in the hospital for 2 weeks with elective admission to the hospital for thoracolumbar spine revision did have a cardiac arrest requiring resuscitation now with evidence of significant hypertension ileus and elevated white count source possible UTI as the patient urine as well as blood cultures are growing Enterobacter 2patient to continue with the cefepime and we will discontinue the vancomycin Multiple family member at the bedside questions were answered Time with Patient: Less than 30
[2022-03-11] MEDS: DEXAMETHASONE SOD PHOSPHATE 4 MG/ML 1 ML VIAL IVP SCH ×4 (00:30→23:21)
[2022-03-11] MEDS: CEFEPIME 2 GM in SODIUM CHLORIDE 0.9% 100 ML IVPB SCH ×2 (01:11→14:55)
[2022-03-11] MEDS: HYDROmorphone 0.5 MG/0.5 ML SYRINGE IVP PRN ×3 (03:10→14:19)
[2022-03-11 04:37] LABS: Anisocytosis Slight; Basophils % (A) 0 %; Eosinophils % (A) 0 %; HCT 26.8 % (34.0-46.0); HGB 8.9 gm/dL (11.4-16.0); Lymphocytes # (A) 0.4 k/uL (1.0-4.8); Lymphocytes % (A) 4 %; MCH 29.6 pg (25.0-35.0); MCHC 33.3 g/dL (31.0-37.0); MCV 88.8 fL (80.0-100.0); Mean Platelet Volume 10.2; Monocytes # (A) 0.4 k/uL (0-1.0); Monocytes % (A) 4 %; Neutrophils # (A) 10.2 k/uL (1.3-7.7); Neutrophils % (A) 91 %; Poikilocytosis Slight; RBC 3.01 m/uL (3.80-5.40); RDW 16.2 % (11.5-15.5); WBC 11.1 k/uL (3.8-10.6)
[2022-03-11 04:41] LABS: Platelet Count 89 k/uL (150-450)
[2022-03-11 04:54] LABS: African American GFR (CKD) >90 (>60 ml/min/1.73 sqM); Anion Gap 4 mmol/L; Blood Urea Nitrogen 37 mg/dL (7-17); Carbon Dioxide 27 mmol/L (22-30); Chloride 103 mmol/L (98-107); Glucose 200 mg/dL (74-99); Non-African American GFR(CKD) 87 (>60 ml/min/1.73 sqM); Potassium 4.1 mmol/L (3.5-5.1); Sodium 134 mmol/L (137-145)
[2022-03-11 06:01] LABS: Glucose,Whole Blood 236 mg/dL (70-110)
[2022-03-11] MEDS: ACETAMINOPHEN TAB 325 MG TAB PO SCH ×4 (06:05→23:21)
[2022-03-11] MEDS: LEVOTHYROXINE 88 MCG TAB PO SCH (06:06)
[2022-03-11] MEDS: INSULIN ASPART (NovoLOG) 100 UNIT/ML VIAL SQ SCH ×4 (06:06→21:34)
[2022-03-11] MEDS ORDERED: DEXTROSE 5% IN WATER 100 ML with AMIODARONE 150 MG IV ONE (07:20)
[2022-03-11] MEDS ORDERED: AMIODARONE 360 MG in DEXTROSE 5% IN WATER 200 ML IV ONE ×2 (07:20)
[2022-03-11] MEDS ORDERED: FUROSEMIDE 10 MG/ML 2 ML VIAL IV ONE (07:20)
--- NOTE | 2022-03-11 07:24 | P.PN ---
Subjective Progress Note Date: 03/11/22 Principal diagnosis: Typical atrial flutter Patient is pleasant 71-year-old female with history of persistent typical atrial flutter, paroxysmal atrial fibrillation, hypertension, hyperlipidemia. She follows with Dr. Leger. We are consulted for A flutter. She presented for [facility] back surgery. She underwent back surgery with a long procedure. She was noted to be in atrial flutter throughout the case. After that she became bradycardic and she did have an episode appeared to be brief of severe bradycardia/cardiac arrest and she resuscitated. 03/08/2022 The patient was seen and evaluated this morning. She seems to be hypotensive now require norepinephrine. She remains in atrial flutter with overall controlled heart rate. She is on Cardizem. I'm going to stop the Cardizem and start the patient on amiodarone was bolus and drip giving the low blood pressure requiring vasopressors. Beside that continued oral anticoagulation. Follow-up with the patient. March 092021 The patient was seen and evaluated this morning. She remains in atrial flutter with controlled heart rate. Oral anticoagulation is on hold at this point in the light of bleeding. The hemoglobin this morning is below 7. There is a possibility that the patient might need another back surgery. March 102021 The patient was seen and evaluated this morning beach she underwent another surgery yesterday. She seems to be stable at this point and she is on very small dose of norepinephrine which point to be weaned later on today. Otherwise today she is in normal sinus mechanism. Hemoglobin is a stable. March 112021 The patient was seen and evaluated this morning. She is extubated. She is hemodynamic stable beside being tachycardic and underlying rhythm seems to be A. fib/atrial flutter. The pressure is soft. She just went of vasopressors. I'm going to start the patient on amiodarone IV and switch her to amiodarone by mouth down the line. Hold on any anticoagulation at this point in the light of history of bleeding. Her hemoglobin this morning is 8.9. On examination she seems to be hypervolemic with bilateral lower except his edema which seems to be picking to demand initiated breathing sounds bilaterally without light the patient 20 mg of Lasix IV. Objective - Vital Signs Vital signs: Vital Signs Temp 97.5 F L 03/11/22 04:00 Pulse 123 H 03/11/22 07:00 Resp 13 03/11/22 07:00 BP 131/82 03/11/22 05:00 Pulse Ox 97 03/11/22 07:00 FiO2 35 03/10/22 10:13 Intake & Output 03/10/22 03/11/22 03/11/22 18:59 06:59 18:59 Intake Total 1385.004 120 Output Total 1230 895 Balance 155.004 -775 Weight 144 kg Intake: IV 855 120 Sodium Chloride 0.9% 1, 855 120 000 ml @ 75 mls/hr IV . [id number] MEHUL Rx#:[id number] Intake, IV Titration 220.004 Amount Norepinephrine 32 mg In 17.399 Sodium Chloride 0.9% 218 ml @ 0.03 MCG/KG/MIN 1. 938 mls/hr IV .Q24H MEHUL Rx#:[id number] Sodium Ferric Gluconat- 100 Sucrose 125 mg In Sodium Chloride 0.9% 100 ml @ 100 mls/hr IVPB DAILY MEHUL Rx#:[id number] propofoL 1,000 mg In 102.605 Empty Bag 1 bag @ 15 MCG/ KG/MIN 12.672 mls/hr IV . [id number] MEHUL Rx#:[id number] Blood Product 310 Rc As-1 Unit 310 [id number] Output: Drainage 120 30 Left Hemovac 40 30 Right hemovac 80 Urine 1110 865 Other: Voiding Method Indwelling Catheter Indwelling Catheter # Bowel Movements 1 ABP, PAP, CO, CI - Last Documented Arterial Blood Pressure 116/75 - Constitutional General appearance: Present: no acute distress - Respiratory Respiratory: bilateral: diminished - Cardiovascular Rhythm: irregularly irregular - Labs CBC & Chem 7: 03/11/22 04:27 03/11/22 04:27 Labs: Abnormal Lab Results - Last 24 Hours (Table) 03/07/22 03/10/22 03/10/22 Range/Units 16:56 11:48 16:19 WBC (3.8-10.6) k/uL RBC (3.80-5.40) m/uL Hgb (11.4-16.0) gm/dL Hct (34.0-46.0) % RDW (11.5-15.5) % Plt Count (150-450) k/uL Neutrophils # (1.3-7.7) k/uL Lymphocytes # (1.0-4.8) k/uL Sodium (137-145) mmol/L BUN (7-17) mg/dL Glucose (74-99) mg/dL POC Glucose (mg/dL) 228 H 202 H (70-110) mg/dL Calcium (8.4-10.2) mg/dL Crossmatch See Detail 03/10/22 03/11/22 03/11/22 Range/Units 21:24 04:27 04:27 WBC 11.1 H (3.8-10.6) k/uL RBC 3.01 L (3.80-5.40) m/uL Hgb 8.9 L (11.4-16.0) gm/dL Hct 26.8 L (34.0-46.0) % RDW 16.2 H (11.5-15.5) % Plt Count 89 L (150-450) k/uL Neutrophils # 10.2 H (1.3-7.7) k/uL Lymphocytes # 0.4 L (1.0-4.8) k/uL Sodium 134 L (137-145) mmol/L BUN 37 H (7-17) mg/dL Glucose 200 H (74-99) mg/dL POC Glucose (mg/dL) 223 H (70-110) mg/dL Calcium 7.0 L (8.4-10.2) mg/dL Crossmatch 03/11/22 Range/Units 05:59 WBC (3.8-10.6) k/uL RBC (3.80-5.40) m/uL Hgb (11.4-16.0) gm/dL Hct (34.0-46.0) % RDW (11.5-15.5) % Plt Count (150-450) k/uL Neutrophils # (1.3-7.7) k/uL Lymphocytes # (1.0-4.8) k/uL Sodium (137-145) mmol/L BUN (7-17) mg/dL Glucose (74-99) mg/dL POC Glucose (mg/dL) 236 H (70-110) mg/dL Calcium (8.4-10.2) mg/dL Crossmatch Microbiology - Last 24 Hours (Table) 12/06/22 16:28 Blood Culture - Preliminary Blood No Growth after 72 hours 03/07/22 16:19 Blood Culture Gram Stain - Final Blood Blood Culture - Final Enterobacter cloacae Assessment and Plan Assessment: ASSESSMENT Typical Atrial flutter,with severe bradycardic episode and of the 20s to 30s status post brief round of CPR. Appears mainly related to severe metabolic derangements with severe acidosis during surgery. Status post back surgery Paroxysmal atrial fibrillation Hypertension Hyperlipidemia Cardiomyopathy, ischemic vs non-ischemic Hyperkalemia Back pain Acute kidney injury PLAN Continue the current medical regimen Restart the patient back on oral anticoagulation once she is stable in terms of bleeding Start the patient on amiodarone IV Give the patient additional dose of Lasix 20 mg daily Continue monitor the kidney function and electrolytes
[2022-03-11] MEDS: SODIUM CHLORIDE 0.9% 1,000 ML IV SCH ×2 (07:52→14:59)
[2022-03-11] MEDS: NOREPINEPHRINE 32 MG in SODIUM CHLORIDE 0.9% 218 ML IV SCH (08:38)
[2022-03-11] MEDS: ATORVASTATIN 10 MG TAB PO SCH (08:44)
[2022-03-11] MEDS: PANTOPRAZOLE 40 MG/10 ML VIAL IVP SCH (08:44)
[2022-03-11] MEDS: SODIUM FERRIC GLUCONAT-SUCROSE 125 MG in SODIUM CHLORIDE 0.9% 100 ML IVPB SCH (08:44)
[2022-03-11] MEDS: GABAPENTIN 300 MG CAP PO SCH ×3 (08:45→21:32)
[2022-03-11] MEDS: DULoxetine HCL 60 MG CAPSULE.DR PO SCH (08:45)
[2022-03-11] MEDS: oxyCODONE-APAP 10-325MG 1 EACH TAB PO PRN ×2 (08:48→18:36)
--- NOTE | 2022-03-11 10:54 | P.PN ---
Progress Note - Text Progress Note Date: 03/11/22 The patient remains roughly stable. She has no real complaints of abdominal pain. She did tolerate clear liquids yesterday. Hemoglobin is 8.9. White count is 11.1. Patient is mildly tachycardic and pulse 105. Abdomen soft with no significant tenderness. The prep patient will have her diet increased to full liquid diet.
[2022-03-11] MEDS ORDERED: CAFFEINE-SODIUM BENZOATE 500 MG in SODIUM CHLORIDE 0.9% 100 ML IVPB ONE (11:00)
[2022-03-11 11:48] LABS: Glucose,Whole Blood 230 mg/dL (70-110)
--- NOTE | 2022-03-11 11:51 | P.PN ---
Subjective Progress Note Date: 03/11/22 Is evaluation of 02/25/2022, the patient is being seen for a follow-up in the intensive care unit. The patient is post laminectomy and fusion/decompression of the spine and this was done on multiple levels. The patient overnight was kept on a mechanical ventilator. This morning, the patient is on propofol which is running at 35 mcg/kg/m. The patient is well sedated and the patient is quite sick sinus with a mechanical ventilator. The patient is requiring no pressors. The patient on normal saline in the at the rate of 50 mL an hour. The patient is on a mechanical ventilator on assist control mode at the rate of 18, tidal volume of 450, FiO2 of 40% with a PEEP of 5. The blood gas from today showed a pH of 7.41 with a pCO2 of 35 and pO2 of 138. Chest x-ray shows smaller lung volumes, some mild elevation of the right hemidiaphragm. ET tube is sitting just at the level of the aortic knob. No evidence of any pneumothorax. No airspace disease or consolidations. The patient also had a CT angiogram that showed no evidence of any pulmonary embolism. That showed atelectatic change in lung bases and various up other lung segments. No effusion. No lung collapse. CAT scan of the lumbosacral spine was also completed. The surgical one-sided dry clean and intact. The Hemovac output is bloody and its minimal at this point in time. The patient is afebrile. The patient is in atrial fibrillation. Rate is controlled. The patient is receiving Dilaudid for pain control.Blood work from today shows a white cell count of 14.7 with a hemoglobin of 10.1 and a platelet count of 232. The patient also has a sodium level of 135, potassium level of 4.4, chloride is 106 with a bicarb of 23 and a BUN of 15 and a creatinine of 0.5. On 02/26/2022, the patient is extubated and the patient is currently on room air oxygen. Pulse ox is around 91%. Chest x-rays showing a small left-sided pleural effusion, atelectatic change in the right lung base. The patient is able to move lower extremities. She has some limited numbness in her fingers the first and second finger and left upper extremity. Otherwise, she is hemodynamically stable. She remained nature fibrillation. She was started on Cardizem drip which is about 5 mg an hour for rate control and this was started yesterday. Her heart rate is under better control. The patient is also on beta blockers and the patient is on atenolol 100 mg by mouth on a daily basis. Pain is under adequate control. She is requiring Dilaudid 1 mg every 3 hours and 0.5 mg every 2 hours on an as-needed basis. She is also receiving Percocet 10/325 mg every 6 hours. She is currently also on IV fluids in the form of normal saline at the rate of 100 mL an hour. She remains on Decadron. Surgical 1 site is clean. The Hemovac has drained approximately 50 mL overnight and the output is minimal as such. No other significant events. No chest pain. No shortness of breath. White second visit 17 with a hemoglobin of 8.7. As such there is a some drop in hemoglobin. BUN is at 20 creatinine of 0.6 and a sodium level is at 135. She is using the incentive spirometer. She is pulling approximately 3000. Reevaluated today on 02/27/22, patient remains in the ICU, patient is doing fairly well. She is on room air, she is in atrial fibrillation, she is relatively asymptomatic. patient has IV fluid at 50 mL per hour, she is off all the different drips otherwise. WBC count is 17.9 hemoglobin is 8.7 and electrolytes are normal BUN is 20 creatinine 0.55. Chest x-ray from 02/26 is basically unremarkable.patient denies any shortness of breath, no cough, no wheezing, no chest pain, no further episodes of nausea or vomiting. Reevaluated today on 02/28/22, patient remains in the ICU as an overflow, she is on room air, not in any distress, but she does have lower extremities weakness and she seems to be generally weak. Continues to have a right triple-lumen catheter in the cervical region, and I'm recommending that we transition to a midline, and discontinue that triple-lumen catheter. Patient denies any shortness of breath, no cough, no wheezing, no major issues overnight. Basic metabolic profile this morning is relatively unremarkable. Reevaluated today on 03/01/22, patient remains as an overflow in the ICU. Doing fairly well, apparently she was up in the chair yesterday at bedside for most of the day. Pain seems to be fairly well controlled. Continues to have weakness, patient is being followed closely by orthopedics. Patient is doing well with incentive spirometry, remains on Xarelto for DVT prophylaxis. She is also on GI prophylaxis. The patient is seen today 03/07/2022 in follow-up in the intensive care unit. Earlier today she became quite obtunded. Hypotensive. Dyspneic. She was transferred back into the intensive care unit. Chest x-ray reveals borderline heart size. Patchy bibasilar opacities probably atelectasis similar to previous exam. She is maintaining good O2 saturations in the upper 90s on 4 L/m per nasal cannula. She is bradycardic. Atrial flutter. Ultrasound of the kidneys and bladder revealed no evidence of hydronephrosis on the right. There is a cystic distended area centrally upper and mid pole left kidney measuring up to 8.3 cm. Suspect parapelvic cyst which has enlarged. Indwelling Warren catheter in place. White count 42.3. Hemoglobin 7.0. Platelets 356. Sodium 127. Potassium 6.1. Chloride 97. Bicarb 14. BUN 43. Creatinine 1.14. Glucose 228. Troponin negative 1. Urinalysis reveals moderate blood. Large leukocytosis esterase HIDA BBC's and many bacteria. She's been initiated on cefepime. She has received 3 L of fluid resuscitation thus far. She was given 1 amp of sodium bicarb. Hyperkalemia was corrected. Follow-up labs are pen ding. Follow-up ABGs are pending. The patient is seen today 03/08/2022 in follow-up in the intensive care unit. Postoperative day #12 of a [id number] decompression and fusion. She is currently resting fairly comfortably in bed. Awake and alert. She is maintaining O2 saturations in the 90s on 3 L/m per nasal cannula. She is D5 W with 3 A of sodium bicarb at 75 ML's per hour. She is requiring norepinephrine at 24 mg/m. Arterial blood gases reveal a P O2 of 110, pCO2 27, pH is 7.47. She is noted to have a right chest wall hematoma. She did fall on 03/06/2022. There is significant ecchymosis and bruising.She has required 2 units of packed red blood cells. Current hemoglobin 8.3. She had dropped as low as 5.4 last evening. White count 37.7. Hemoglobin 8.3. Platelets 275. Sodium 126. Potassium 5.5. Chloride 99. Bicarb 18. BUN 60. Creatinine 1.42. Glucose 210. Lactic acid 5.7. AST 2140. ALT 1613. urine cultures pending. Blood cultures are pending. Chest x-ray shows atelectasis at the right lung base with elevated right diaphragm. No heart failure. she remains on vancomycin and cefepime. She is being considered for return to the OR for exploration, washout and likely dural repairs due to her fall event. The patient is seen today 03/09/2022 in follow-up in the intensive care unit. Postoperative day #13 of a T10 to post decompression and fusion. He has now developed GI bleeding. She had 3 bloody stools throughout the night. Her hemoglobin dropped to 6.6. She is receiving 1 unit of packed red blood cells for a total of 4 thus far this admission. Nasogastric tube has been placed. She is maintaining O2 saturations in the 90s on 2 L/m per nasal cannula. She is on norepinephrine at 4 mg/m. She is on D5 abuse with 3 A of bicarb at 75 ML's per hour. Chest x-ray reveals right basilar atelectasis with small effusion. Blood culture positive for enterococcus cloacae. Urine culture positive for gram-negative bacilli. White count 23.9. Hemoglobin 6.6. Platelets 131. Sodium 128. Potassium 4.2. BUN 66. Creatinine 1.25. Bicarb 25. Glucose 243. AST 586. ALT 740. She is continued on vancomycin and cefepime. Remains on Decadron. The patient is seen today 03/10/2022 in follow-up in the intensive care unit. Postoperative day #14 of a T10 post decompression and fusion. She did go back to the OR yesterday for washout and repair of the dura. Postoperative day #1. Dressing is dry and intact. There is a Hemovac in place. She came back int ubated on the mechanical ventilator with settings of assist control mode at a rate of 14, tidal been 400, FiO2 35% and a PEEP of 5. P O2 178, pCO2 38, pH 7.48 on the 45%. She has normal saline at 75 ML's per hour. She did require small amount of norepinephrine which is currently off. She's on Diprivan at 20 mcg/kg/m. Chest x-ray reveals similar bibasilar opacity patchy airspace opacities presenting infiltrate and/or atelectasis. Endotracheal tube in place. Nasogastric tube in place. She is status post 6 units of packed red blood cells this admission. 1 unit of platelets. Current hemoglobin 8.2. Platelets 94,000. White count 15.4. Sodium 135. Potassium 4.2. Bicarb 29. BUN 51. Creatinine 0.77. Glucose 194. She is continued on vancomycin and cefepime. She remains on Decadron. Blood cultures are positive for Enterobacter, urine culture positive for Enterobacter. She is currently afebrile. Hemodynamically stable. The patient is seen today 03/11/2022 in follow-up in the intensive care unit. Postoperative day #15. She is currently resting fairly comfortable in bed. Awake and alert. She is doing well on room air. She's been afebrile. She did have issues with atrial flutter and is currently on amiodarone drip at 1 mg/m. 0.9 normal saline at [facility]. She was given Lasix 20 mg 1. She remains on cefepime. Blood and urine cultures were positive for Enterobacter. White count 11.1. Hemoglobin 8.9. Platelets 89,000. Sodium 134. Potassium 4.1. Bicarb 27. BUN 37. Creatinine 0.69. Blood glucose 200. If she is status post 7 units of packed red blood cells and 1 unit of platelets this admission. Hemodynamically stable. Not on pressors. Objective - Vital Signs Vital signs: Vital Signs Temp 97.9 F 03/11/22 08:00 Pulse 99 03/11/22 10:00 Resp 13 03/11/22 10:00 BP 168/80 03/11/22 09:00 Pulse Ox 97 03/11/22 10:00 FiO2 35 03/10/22 10:13 Intake & Output 03/10/22 03/11/22 03/11/22 18:59 06:59 18:59 Intake Total 1385.004 120 239.9 Output Total 2777 033 7706 Balance 155.004 -775 -895.1 Weight 144 kg Intake: IV 855 120 239.9 Sodium Chloride 0.9% 1, 855 120 40 000 ml @ 75 mls/hr IV . [id number] MEHUL Rx#:[id number] Sodium Ferric Gluconat- 100 Sucrose 125 mg In Sodium Chloride 0.9% 100 ml @ 100 mls/hr IVPB DAILY [facility]UL Rx#:[id number] amiodarone 99.9 Intake, IV Titration 220.004 Amount Norepinephrine 32 mg In 17.399 Sodium Chloride 0.9% 218 ml @ 0.03 MCG/KG/MIN 1. 938 mls/hr IV .Q24H ME[facility]UL Rx#:[id number] Sodium Ferric Gluconat- 100 Sucrose 125 mg In Sodium Chloride 0.9% 100 ml @ 100 mls/hr IVPB DAILY [facility]UL Rx#:[id number] propofoL 1,000 mg In 102.605 Empty Bag 1 bag @ 15 MCG/ KG/MIN 12.672 mls/hr IV . [id number] [facility]UL Rx#:[id number] Blood Product 310 Rc As-1 Unit 310 [id number] Output: Drainage 120 30 185 Left Hemovac 40 30 Right hemovac 80 185 Urine 1110 865 950 Other: Voiding Method Indwelling Catheter Indwelling Catheter # Bowel Movements 1 ABP, PAP, CO, CI - Last Documented Arterial Blood Pressure 145/60 - Exam GENERAL EXAM: Awake, alert morbidly obese 71-year-old female, on room air, fairly comfortable in no apparent distress. HEAD: Normocephalic. EYES: Normal reaction of pupils, equal size. NOSE: Is a gastric tube in place. Clear with pink turbinates. THROAT: No erythema or exudates. NECK: No masses, no JVD. CHEST: Large hematoma and edema of the right breast LUNGS: Equal air entry with crackles in the posterior bases. Diminished right base. CVS: S1 and S2 normal with no audible murmur, irregular rhythm. ABDOMEN: Obese, unable to appreciate organomegaly, normal bowel sounds, no guarding or rigidity. SPINE: Surgical rito in place. Dressing dry and intact. Hemovac in place. SKIN: Ecchymosis noted over the right breast and chest area. CENTRAL NERVOUS SYSTEM: No focal deficits, tone is normal in all 4 extremities. EXTREMITIES: There is 1+ peripheral edema. No clubbing, no cyanosis. Peripheral pulses are intact. - Labs CBC & Chem 7: 03/11/22 04:27 03/11/22 04:27 Labs: Abnormal Lab Results - Last 24 Hours (Table) 03/07/22 03/10/22 03/10/22 Range/Units 16:56 11:48 16:19 WBC (3.8-10.6) k/uL RBC (3.80-5.40) m/uL Hgb (11.4-16.0) gm/dL Hct (34.0-46.0) % RDW (11.5-15.5) % Plt Count (150-450) k/uL Neutrophils # (1.3-7.7) k/uL Lymphocytes # (1.0-4.8) k/uL Sodium (137-145) mmol/L BUN (7-17) mg/dL Glucose (74-99) mg/dL POC Glucose (mg/dL) 228 H 202 H (70-110) mg/dL Calcium (8.4-10.2) mg/dL Crossmatch See Detail 03/10/22 03/11/22 03/11/22 Range/Units 21:24 04:27 04:27 WBC 11.1 H (3.8-10.6) k/uL RBC 3.01 L (3.80-5.40) m/uL Hgb 8.9 L (11.4-16.0) gm/dL Hct 26.8 L (34.0-46.0) % RDW 16.2 H (11.5-15.5) % Plt Count 89 L (150-450) k/uL Neutrophils # 10.2 H (1.3-7.7) k/uL Lymphocytes # 0.4 L (1.0-4.8) k/uL Sodium 134 L (137-145) mmol/L BUN 37 H (7-17) mg/dL Glucose 200 H (74-99) mg/dL POC Glucose (mg/dL) 223 H (70-110) mg/dL Calcium 7.0 L (8.4-10.2) mg/dL Crossmatch 03/11/22 Range/Units 05:59 WBC (3.8-10.6) k/uL RBC (3.80-5.40) m/uL Hgb (11.4-16.0) gm/dL Hct (34.0-46.0) % RDW (11.5-15.5) % Plt Count (150-450) k/uL Neutrophils # (1.3-7.7) k/uL Lymphocytes # (1.0-4.8) k/uL Sodium (137-145) mmol/L BUN (7-17) mg/dL Glucose (74-99) mg/dL POC Glucose (mg/dL) 236 H (70-110) mg/dL Calcium (8.4-10.2) mg/dL Crossmatch Microbiology - Last 24 Hours (Table) 03/07/22 16:28 Blood Culture - Preliminary Blood No Growth after 72 hours 03/07/22 16:19 Blood Culture Gram Stain - Final Blood Blood Culture - Final Enterobacter cloacae Assessment and Plan Assessment: Acute sepsis with hypotension secondary to urinary tract infection with Enterobacter, some serous drainage from the spinal surgery currently on cefepime, improved and off norepinephrine. Bacteremia secondary to Enterobacter cloacae Atrial flutter fibrillation/flutter with a rapid ventricular response requiring amiodarone bolus and drip at 1 mg/m Lactic acidosis secondary to above Acute renal failure, recovered, current creatinine 0. 69 Hyperkalemia, improved, current potassium 4.1 Hyponatremia, recovered current sodium 134 Leukocytosis, improved, current white count 11.1 Acute anemia with a hemoglobin dropped to 5.4. The patient had developed a large right sided chest wall/breast hematoma suspect secondary to fall on 03/06/2022. The patient has now received 7 units of packed red blood cells and her hemo globin this morning was 8.9. Receiving iron supplement Lumbar decompression/fusion postoperative day #15, developed some foul-smelling serous sanguinous drainage. On 03/09/2022 she did require exploration and washout with dural repairs due to falls. Hemovac placed. Postoperative day #2. Cardiac arrest, brief pulseless electrical activity encountered in the operating room exact etiology is not clear. Acute hypoxic/hypercapnic respiratory failure secondary to cardiac arrest/pulseless electrical activity, patient was extubated Morbid obesity. BMI of 49.0 History of right hemidiaphragm paralysis History of right-sided breast cancer, previous lumpectomy Chronic atrial fibrillation/flutter, anticoagulated with Xarelto Dyslipidemia Benign essential hypertension Plan: The patient was seen and evaluated Alert, stable and on room air Labs and medications reviewed Received Lasix 20 mg IVP 1 Initiated on amiodarone due to A. fib/flutter Currently on cefepime Follow-up chest x-ray in a.m. We will continue to follow I have personally seen and examined the patient, performed the documentation and the assessment and plan as written. Number of minutes spent on the visit: 10.
--- NOTE | 2022-03-11 12:09 | P.PN ---
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 She is doing fairly well overnight. She has been laying flat reverse Trendelenburg of about 10. She denies any current symptoms other than some back pain and some hip pain. She states very mild headache on the right frontal region however no other headaches. She states no blurred vision or double vision. She states no nausea or vomiting. She denies any fevers chills shortness of breath or chest pain overnight. Nursing states that her dressing has been intact she had one other tarry stool last night but it was much better and less bloody. She has been hemodynamically stable off pressors. She is status post 7 packed units and 1 platelet with a hemoglobin of 89 hematocrit 24.2 and platelets of 94 Thousand. She denies a peroneal numbness or tingling. Warren is still in place and is being changed per protocol. She is on vancomycin and cefepime. Objective - Vital Signs Vital signs: Vital Signs Temp 97.9 F 03/11/22 08:00 Pulse 99 03/11/22 10:00 Resp 13 03/11/22 10:00 BP 168/80 03/11/22 09:00 Pulse Ox 97 03/11/22 10:00 FiO2 35 03/10/22 10:13 Intake & Output 03/10/22 03/11/22 03/11/22 18:59 06:59 18:59 Intake Total 1385.004 120 239.9 Output Total 2195 502 2197 Balance 155.004 -775 -895.1 Weight 144 kg Intake: IV 855 120 239.9 Sodium Chloride 0.9% 1, 855 120 40 000 ml @ 75 mls/hr IV . [id number] [facility] Rx#:[id number] Sodium Ferric Gluconat- 100 Sucrose 125 mg In Sodium Chloride 0.9% 100 ml @ 100 mls/hr IVPB DAILY [facility] Rx#:[id number] amiodarone 99.9 Intake, IV Titration 220.004 Amount Norepinephrine 32 mg In 17.399 Sodium Chloride 0.9% 218 ml @ 0.03 MCG/KG/MIN 1. 938 mls/hr IV .Q24H [facility] Rx#:[id number] Sodium Ferric Gluconat- 100 Sucrose 125 mg In Sodium Chloride 0.9% 100 ml @ 100 mls/hr IVPB DAILY [facility] Rx#:[id number] propofoL 1,000 mg In 102.605 Empty Bag 1 bag @ 15 MCG/ KG/MIN 12.672 mls/hr IV . [id number] [facility] Rx#:[id number] Blood Product 310 Rc As-1 Unit 310 [id number] Output: Drainage 120 30 185 Left Hemovac 40 30 Right hemovac 80 185 Urine 1110 865 950 Other: Voiding Method Indwelling Catheter Indwelling Catheter # Bowel Movements 1 ABP, PAP, CO, CI - Last Documented Arterial Blood Pressure 145/60 - Exam exam is repeated today. The drain has some serous fluid drainage which is slightly clear than normal. When placed on half suction and it had a somewhat immediate return over an hour of 85 mL and so this was removed and placed to gravity suction once again. It is more serous fluid but it is clear than the normal serous fluid at this time. PHYSICAL EXAMINATION: Vitals: BP 151/80, heart rate 88 and currently converted regular, SpO2 98% on room air, temperature normal General: Awake, alert, appropriate for age, in no acute distress. HEENT: No unusual neck masses around region of lateral neck triangle, thyroid, supraclavicular groove. Extremities: Skin warm and dry without no acute lesions, coloration, temperature, skin intact, no tenderness or erythema. Integument: Surgical incisions: Dressings CDI . Palpation: Special findings: pain with palpation of the right breast area with large hematoma notedas well as anterior chest wall. VASCULAR STATUS : Wrist Pulses: [2/4 bilateral radial and ulnar] Pedal Pulses: [2/4 bilateral DP and PT] Color: [Normal] Edema: continues of third spacing of bilateral upper and lower extremities as well as abdomen at this time. There is 2+ pitting edema lower extremities. She did receive some Lasix. NEUROLOGIC EXAMINATION: Mental Status: Awake and alert, oriented,but slow with normal attention, concentration and memory, and fluent, he has slow speech Cranial Nerves: I: Olfactory not tested. II: Visual acuity normal, no visual field deficit noted with confrontation. III,IV: Normal pupillary reflexes & intact extraocular movements without nystagmus. V,: Intact symmetrical facial sensation. VII: Intact symmetrical facial motor movement VIII: Hearing intact. IX,X: Intact gag, swallow, & normal voice. XI: Sternocleidomastoid, trapezius function intact. XII: Tongue midline with normal movements. Special Tests: L'hermitte's Sign: Absent Straight Leg Raising: Absent Bilateral Motor Exam (0-5/5, N/T) STRENGTH 4+ out of 5 strength in upper extremity's bilaterally all major muscle groups without focal deficits generalized weakness 3+ to 5 strength bilateral lower extremities all major muscle groups with generalized weakness no focal deficits. She is weak in her hip flexors currently. REFLEXES Upper Extremity: RIGHT [2]/4 LEFT [2]/4 Lower Extremity: RIGHT [2]/4 LEFT [2]/4 Pathological Reflexes Warren's: RIGHT [Absent] LEFT [Absent] Babinski: RIGHT [Absent] LEFT [Absent] Clonus: RIGHT [None] LEFT [None] SENSORY Intact Gait and Functional Evaluation: Ambulatory aids: max assist with walker - Labs CBC & Chem 7: 03/11/22 04:27 03/11/22 04:27 Labs: Abnormal Lab Results - Last 24 Hours (Table) 03/07/22 03/10/22 03/10/22 Range/Units 16:56 16:19 21:24 WBC (3.8-10.6) k/uL RBC (3.80-5.40) m/uL Hgb (11.4-16.0) gm/dL Hct (34.0-46.0) % RDW (11.5-15.5) % Plt Count (150-450) k/uL Neutrophils # (1.3-7.7) k/uL Lymphocytes # (1.0-4.8) k/uL Sodium (137-145) mmol/L BUN (7-17) mg/dL Glucose (74-99) mg/dL POC Glucose (mg/dL) 202 H 223 H (70-110) mg/dL Calcium (8.4-10.2) mg/dL Crossmatch See Detail 03/11/22 03/11/22 03/11/22 Range/Units 04:27 04:27 05:59 WBC 11.1 H (3.8-10.6) k/uL RBC 3.01 L (3.80-5.40) m/uL Hgb 8.9 L (11.4-16.0) gm/dL Hct 26.8 L (34.0-46.0) % RDW 16.2 H (11.5-15.5) % Plt Count 89 L (150-450) k/uL Neutrophils # 10.2 H (1.3-7.7) k/uL Lymphocytes # 0.4 L (1.0-4.8) k/uL Sodium 134 L (137-145) mmol/L BUN 37 H (7-17) mg/dL Glucose 200 H (74-99) mg/dL POC Glucose (mg/dL) 236 H (70-110) mg/dL Calcium 7.0 L (8.4-10.2) mg/dL Crossmatch 03/11/22 Range/Units 11:45 WBC (3.8-10.6) k/uL RBC (3.80-5.40) m/uL Hgb (11.4-16.0) gm/dL Hct (34.0-46.0) % RDW (11.5-15.5) % Plt Count (150-450) k/uL Neutrophils # (1.3-7.7) k/uL Lymphocytes # (1.0-4.8) k/uL Sodium (137-145) mmol/L BUN (7-17) mg/dL Glucose (74-99) mg/dL POC Glucose (mg/dL) 230 H (70-110) mg/dL Calcium (8.4-10.2) mg/dL Crossmatch Microbiology - Last 24 Hours (Table) 03/07/22 16:28 Blood Culture - Preliminary Blood No Growth after 72 hours 03/07/22 16:19 Blood Culture Gram Stain - Final Blood Blood Culture - Final Enterobacter cloacae Assessment and Plan Assessment: 1. 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 Status post 7 units PRBC and 1 pack platelets -bilateral lower extremity weakness, status post multiple controlled falls in- house -Enterobacter sepsis, UTI - status post cardiac arrest Plan: -Appreciate instructional consultant and team management PCC and medicine -appreciate cardiothoracic, Gen. surgery, nephrology, ID evaluations -continue Activity: Lay flat, Bed rest. Turn q2. HOB 10 deg onlyEric continue in bed therapy with ankle pumps to motions but squeezes quad thrusts and are motions. -Drain to gravity only -Cont Abx for duration of stay -Pain control: Adequate at this time -Meds: reviewed -Trend labs -transfusions to vitals as well as laboratory values. Currently she is stable with hemoglobin and hematocrit of any of his drop we will once again transfused. -GI ppx: senna, Miralax -continue Warren changed per protocol -DVT PPX: Mechanical only -Hygiene: Maintain dressing clean and dry. Meticulous cleaning after BMs away from incision site patient has had several instances on the floor where she was covered and bowel movement as well as urine up to her shoulders on her back. The wound needs to be kept meticulously clean. -Encourage IS 10x/hr -Will follow
--- NOTE | 2022-03-11 13:47 | P.PN ---
Subjective Progress Note Date: 03/11/22 Principal diagnosis: back surgery She was extubated and switched to NC. Currently tolerating well. She flipped into atrial flutter last night, was started on amiodarone drip by cardiology. She denies any current symptoms other than some back pain and some hip pain. I saw her was asking staff was cleaning her up, saw some bright red blood oozing from her rectum. She likely has hemorrhoids. She tolerated clear liquid diet that was started by general surgery yesterday. Objective - Vital Signs Vital signs: Vital Signs Temp 97.9 F 03/11/22 08:00 Pulse 122 H 03/11/22 13:00 Resp 25 H 03/11/22 13:00 BP 158/76 03/11/22 13:00 Pulse Ox 92 L 03/11/22 13:00 FiO2 35 03/10/22 10:13 Intake & Output 03/10/22 03/11/22 03/11/22 18:59 06:59 18:59 Intake Total 1385.004 120 326.5 Output Total 5855 730 9866 Balance 155.004 -775 -908.5 Weight 144 kg Intake: IV 855 120 326.5 Sodium Chloride 0.9% 1, 855 120 60 000 ml @ 75 mls/hr IV . [id number] [facility] Rx#:[id number] Sodium Ferric Gluconat- 100 Sucrose 125 mg In Sodium Chloride 0.9% 100 ml @ 100 mls/hr IVPB DAILY [facility] Rx#:[id number] amiodarone 166.5 Intake, IV Titration 220.004 Amount Norepinephrine 32 mg In 17.399 Sodium Chloride 0.9% 218 ml @ 0.03 MCG/KG/MIN 1. 938 mls/hr IV .Q24H [facility] Rx#:[id number] Sodium Ferric Gluconat- 100 Sucrose 125 mg In Sodium Chloride 0.9% 100 ml @ 100 mls/hr IVPB DAILY [facility] Rx#:[id number] propofoL 1,000 mg In 102.605 Empty Bag 1 bag @ 15 MCG/ KG/MIN 12.672 mls/hr IV . [id number] [facility] Rx#:[id number] Blood Product 310 Rc As-1 Unit 310 [id number] Output: Drainage 120 30 185 Left Hemovac 40 30 Right hemovac 80 185 Urine 2712 770 5633 Other: Voiding Method Indwelling Catheter Indwelling Catheter # Bowel Movements 1 ABP, PAP, CO, CI - Last Documented Arterial Blood Pressure 158/71 - Exam General: ill appearing, no acute distress. Derm: warm, dry Head: atraumatic, normocephalic, symmetric Eyes: EOMI, no lid lag, anicteric sclera Mouth: no lip lesion, dry membranes moist Cardiovascular: S1S2 irregular, no murmur Lungs: Decreased BS bilateral, no rhonchi, no rales, no accessory muscle use Ext: no gross muscle atrophy, 1+ LE edema, no contractures Abd: Warren catheter in place. Obese. Tenderness to palpation RLQ with rebound. Back: Midline surgical scar intact. Foul smelling. Serousanguinous discharge. Neuro: Moving all 4 extremities independently - Labs CBC & Chem 7: 03/11/22 04:27 03/11/22 04:27 Labs: Abnormal Lab Results - Last 24 Hours (Table) 03/07/22 03/10/22 03/10/22 Range/Units 16:56 16:19 21:24 WBC (3.8-10.6) k/uL RBC (3.80-5.40) m/uL Hgb (11.4-16.0) gm/dL Hct (34.0-46.0) % RDW (11.5-15.5) % Plt Count (150-450) k/uL Neutrophils # (1.3-7.7) k/uL Lymphocytes # (1.0-4.8) k/uL Sodium (137-145) mmol/L BUN (7-17) mg/dL Glucose (74-99) mg/dL POC Glucose (mg/dL) 202 H 223 H (70-110) mg/dL Calcium (8.4-10.2) mg/dL Crossmatch See Detail 03/11/22 03/11/22 03/11/22 Range/Units 04:27 04:27 05:59 WBC 11.1 H (3.8-10.6) k/uL RBC 3.01 L (3.80-5.40) m/uL Hgb 8.9 L (11.4-16.0) gm/dL Hct 26.8 L (34.0-46.0) % RDW 16.2 H (11.5-15.5) % Plt Count 89 L (150-450) k/uL Neutrophils # 10.2 H (1.3-7.7) k/uL Lymphocytes # 0.4 L (1.0-4.8) k/uL Sodium 134 L (137-145) mmol/L BUN 37 H (7-17) mg/dL Glucose 200 H (74-99) mg/dL POC Glucose (mg/dL) 236 H (70-110) mg/dL Calcium 7.0 L (8.4-10.2) mg/dL Crossmatch 03/11/22 Range/Units 11:45 WBC (3.8-10.6) k/uL RBC (3.80-5.40) m/uL Hgb (11.4-16.0) gm/dL Hct (34.0-46.0) % RDW (11.5-15.5) % Plt Count (150-450) k/uL Neutrophils # (1.3-7.7) k/uL Lymphocytes # (1.0-4.8) k/uL Sodium (137-145) mmol/L BUN (7-17) mg/dL Glucose (74-99) mg/dL POC Glucose (mg/dL) 230 H (70-110) mg/dL Calcium (8.4-10.2) mg/dL Crossmatch Microbiology - Last 24 Hours (Table) 03/07/22 16:28 Blood Culture - Preliminary Blood No Growth after 72 hours 03/07/22 16:19 Blood Culture Gram Stain - Final Blood Blood Culture - Final Enterobacter cloacae Assessment and Plan Plan: #Septic shock, Enterobacter cloacae bacteremia secondary to wound infection #Sepsis, likely secondary to wound infection #Lactic acidosis Patient meets sepsis criteria with tachypnea, hypotension, leukocytosis. Currently off mechanical ventilation and pressors. Continue Cefepime, vancomycin discontinued on 03/10 per infectious disease. Blood cultures + Enterobacter cloacae Urine culture gram negative bacilli C.difficile negative. Telemetry monitoring. Pulmonology/ICU on board. #Acute blood loss anemia #Right breast hematoma #GI bleed, likely hemorrhoidal She is status post total of 7 units of PRBC transfusion. Discontinue Xarelto. CT surgery recommends conservative management of hematoma. She is iron deficient, on IV iron #Abdominal pain #IIeus versus SBO Gen. surgery advancing diet to full liquid today. #Acute kidney injury #Hyponatremia Resolved Renal US shows no hydronephrosis on the R, enlarged cyst in the L kidney measuring up to 8.3 cm. BETHANY likely due to ATN from septic shock and hypoNa from poor oral intake. Nephrology on board. #Transaminitis Improved Likely ischemic hepatitis. Repeat CMP tomorrow morning. #Atrial fibrillation #Atrial flutter with RVR Anticoagulation discontinued due to blood loss. Started on amio gtt by cardiology on board. Lasix time one #T10 to pelvis decompression with fusion #Post-op pain #Status post second look wound debridement on 03/09 Management per Orthopedic surgery. Gabapentin, Valium, Flexeril. Decadron. Continue with Dilaudid and Percocet PRN. Patient has no stairs and planning on going home, she has nearby help from [facility] but lives alone. PT and OT consulted. PMR consulted. #Aborted sudden cardiac Cardiology on board. Echocardiogram shows EF 35-40% with moderate MR. #Systolic CHF chronic Echo shows EF 35-40% with severe pulmonary HTN, moderate MR. Patient will need ischemic workup. Patient would benefit from ACEi and Aldactone prior to discharge. Cardiology on board. #Hyperglycemia No official DM diagnosis Will start levemir 10 units daily. Check a1c. #Right diaphragmatic paralysis Aggressive pulmonary hygiene. Pulmonology on board. #HLD Statin. #HTN Cardizem, Digoxin and Atenolol due to hypotension. Monitor vitals and adjust medication if necessary. Resolved: Hyperkalemia
[2022-03-11] MEDS ORDERED: VANCOMYCIN TROUGH DUE 1 EACH MISC MISCELLANE ONE (14:00)
[2022-03-11] MEDS: AMIODARONE 450 MG in DEXTROSE 5% IN WATER 250 ML IV SCH ×2 (14:35)
[2022-03-11 16:35] LABS: Glucose,Whole Blood 304 mg/dL (70-110)
[2022-03-11] MEDS: HYDROmorphone 1 MG/ML 1 ML SYRINGE IVP PRN ×3 (17:22→23:22)
[2022-03-11 21:23] LABS: Glucose,Whole Blood 275 mg/dL (70-110)
[2022-03-11] MEDS: CYCLOBENZAPRINE 10 MG TAB PO PRN (21:32)
[2022-03-11] MEDS: INSULIN DETEMIR (LEVEMIR) 100 UNIT/ML SYR SQ SCH (21:32)
[2022-03-11] MEDS: oxyCODONE-APAP 7.5-325MG 1 EACH TAB PO PRN (23:20)
[2022-03-12] MEDS: CEFEPIME 2 GM in SODIUM CHLORIDE 0.9% 100 ML IVPB SCH ×2 (00:58→13:50)
[2022-03-12] MEDS: SODIUM CHLORIDE 0.9% 1,000 ML IV SCH (03:28)
[2022-03-12 03:53] LABS: Anisocytosis Slight; HCT 28.6 % (34.0-46.0); HGB 9.4 gm/dL (11.4-16.0); Hypochromasia Slight; MCH 29.8 pg (25.0-35.0); MCHC 32.9 g/dL (31.0-37.0); MCV 90.5 fL (80.0-100.0); Mean Platelet Volume 9.6; Poikilocytosis Slight; RBC 3.16 m/uL (3.80-5.40); RDW 16.3 % (11.5-15.5); WBC 12.1 k/uL (3.8-10.6)
[2022-03-12 04:05] LABS: ALT 250 U/L (4-34); AST 42 U/L (14-36); African American GFR (CKD) >90 (>60 ml/min/1.73 sqM); Albumin 2.6 g/dL (3.5-5.0); Alkaline Phosphatase 112 U/L (38-126); Anion Gap 2 mmol/L; Blood Urea Nitrogen 28 mg/dL (7-17); Calcium 7.1 mg/dL (8.4-10.2); Carbon Dioxide 28 mmol/L (22-30); Chloride 103 mmol/L (98-107); Glucose 183 mg/dL (74-99); Magnesium 2.4 mg/dL (1.6-2.3); Non-African American GFR(CKD) >90 (>60 ml/min/1.73 sqM); Potassium 4.1 mmol/L (3.5-5.1); Sodium 133 mmol/L (137-145); Total Bilirubin 1.8 mg/dL (0.2-1.3); Total Protein 4.5 g/dL (6.3-8.2)
[2022-03-12 04:13] LABS: Platelet Count 93 k/uL (150-450)
[2022-03-12] MEDS: AMIODARONE 450 MG in DEXTROSE 5% IN WATER 250 ML IV SCH ×2 (04:48)
[2022-03-12] MEDS: HYDROmorphone 1 MG/ML 1 ML SYRINGE IVP PRN ×6 (04:52→20:29)
[2022-03-12 06:19] LABS: Glucose,Whole Blood 197 mg/dL (70-110)
[2022-03-12] MEDS: ACETAMINOPHEN TAB 325 MG TAB PO SCH (06:26)
[2022-03-12] MEDS: LEVOTHYROXINE 88 MCG TAB PO SCH (06:26)
[2022-03-12] MEDS: CYCLOBENZAPRINE 10 MG TAB PO PRN ×2 (06:26→20:29)
[2022-03-12] MEDS: INSULIN DETEMIR (LEVEMIR) 100 UNIT/ML SYR SQ SCH (06:26)
[2022-03-12] MEDS: INSULIN ASPART (NovoLOG) 100 UNIT/ML VIAL SQ SCH ×4 (06:27→20:29)
[2022-03-12] MEDS ORDERED: INSULIN DETEMIR (LEVEMIR) 100 UNIT/ML SYR SQ SCH (07:00)
--- NOTE | 2022-03-12 07:29 | XR ---
EXAMINATION TYPE: XR chest 1V portable DATE OF EXAM: 03/12/2022 HISTORY: Shortness of breath. COMPARISON: 03/10/2022 TECHNIQUE: Single view of the chest is submitted. FINDINGS: Demonstrated are scattered senescent parenchymal change. Endotracheal tube and NG tube have been removed. Continued pulmonary venous congestion with scattered interstitial edema. Chronic elevation right hemidiaphragm. Hilar and mediastinal structures are within normal limits. Degenerative changes are seen of the dorsal spine. IMPRESSION: 1. Continued pulmonary venous congestion with scattered interstitial edema.
--- NOTE | 2022-03-12 08:01 | P.PN ---
Subjective Progress Note Date: 03/12/22 Principal diagnosis: Typical atrial flutter Patient is pleasant 71-year-old female with history of persistent typical atrial flutter, paroxysmal atrial fibrillation, hypertension, hyperlipidemia. She follows with Dr. Leger. We are consulted for A flutter. She presented for [facility] back [facility]. She underwent back surgery with a long procedure. She was noted to be in atrial flutter throughout the case. After that she became bradycardic and she did have an episode appeared to be brief of severe bradycardia/cardiac arrest and she resuscitated. 03/08/2022 The patient was seen and evaluated this morning. She seems to be hypotensive now require norepinephrine. She remains in atrial flutter with overall controlled heart rate. She is on Cardizem. I'm going to stop the Cardizem and start the patient on amiodarone was bolus and drip giving the low blood pressure requiring vasopressors. Beside that continued oral anticoagulation. Follow-up with the patient. March 092021 The patient was seen and evaluated this morning. She remains in atrial flutter with controlled heart rate. Oral anticoagulation is on hold at this point in the light of bleeding. The hemoglobin this morning is below 7. There is a possibility that the patient might need another back surgery. March 102021 The patient was seen and evaluated this morning beach she underwent another surgery yesterday. She seems to be stable at this point and she is on very small dose of norepinephrine which point to be weaned later on today. Otherwise today she is in normal sinus mechanism. Hemoglobin is a stable. March 112021 The patient was seen and evaluated this morning. She is extubated. She is hemodynamic stable beside being tachycardic and underlying rhythm seems to be A. fib/atrial flutter. The pressure is soft. She just went of vasopressors. I'm going to start the patient on amiodarone IV and switch her to amiodarone by mouth down the line. Hold on any anticoagulation at this point in the light of history of bleeding. Her hemoglobin this morning is 8.9. On examination she seems to be hypervolemic with bilateral lower except his edema March 122021 The patient was seen and evaluated this morning. She remains a stable overall. She was extubated yesterday. She stated "I feel better". Currently she is in atrial fibrillation with overall controlled heart rate. Currently she is on amiodarone IV which I'm going to stop and start amiodarone by mouth. Anticoagulation is on hold right now in the light of recent history of bleeding and low hemoglobin required blood transfusion. Her hemoglobin this morning is 8.9. On examination she seems to be overall euvolemic with mild bilateral lower except his edema. Objective - Vital Signs Vital signs: Vital Signs Temp 98.7 F 03/12/22 04:00 Pulse 116 H 03/12/22 07:00 Resp 12 03/12/22 07:00 BP 131/76 03/12/22 07:00 Pulse Ox 96 03/12/22 07:00 FiO2 35 03/10/22 10:13 Intake & Output 03/11/22 03/12/22 03/12/22 18:59 06:59 18:59 Intake Total 1576.6 657.349 Output Total 1680 900 Balance -103.4 -242.651 Weight 144.5 kg Intake: IV 476.6 420.4 Cefepime 2 gm In Sodium 100 Chloride 0.9% 100 ml @ 25 mls/hr IVPB Q12H [facility] Rx# :[id number] Sodium Chloride 0.9% 1, 110 120 000 ml @ 75 mls/hr IV . [id number] [facility] Rx#:[id number] Sodium Ferric Gluconat- 100 Sucrose 125 mg In Sodium Chloride 0.9% 100 ml @ 100 mls/hr IVPB DAILY [facility] Rx#:[id number] amiodarone 266.6 200.4 Intake, IV Titration 236.949 Amount Amiodarone 450 mg In 236.949 Dextrose 5% in Water 250 ml @ 0.5 MG/MIN 16.667 mls/hr IV .Q15H [facility] Rx#: [id number] Oral 1100 Output: Drainage 265 60 Right hemovac 265 60 Urine 1415 840 Other: Voiding Method Indwelling Catheter Indwelling Catheter # Bowel Movements 1 ABP, PAP, CO, CI - Last Documented Arterial Blood Pressure 164/76 - Constitutional General appearance: Present: no acute distress - Respiratory Respiratory: bilateral: diminished - Cardiovascular Rhythm: irregularly irregular - Labs CBC & Chem 7: 03/12/22 03:40 03/12/22 03:40 Labs: Abnormal Lab Results - Last 24 Hours (Table) 03/11/22 03/11/22 03/11/22 Range/Units 11:45 16:33 21:22 WBC (3.8-10.6) k/uL RBC (3.80-5.40) m/uL Hgb (11.4-16.0) gm/dL Hct (34.0-46.0) % RDW (11.5-15.5) % Plt Count (150-450) k/uL Sodium (137-145) mmol/L BUN (7-17) mg/dL Glucose (74-99) mg/dL POC Glucose (mg/dL) 230 H 304 H 275 H (70-110) mg/dL Calcium (8.4-10.2) mg/dL Magnesium (1.6-2.3) mg/dL Total Bilirubin (0.2-1.3) mg/dL AST (14-36) U/L ALT (4-34) U/L Total Protein (6.3-8.2) g/dL Albumin (3.5-5.0) g/dL 03/12/22 03/12/22 03/12/22 Range/Units 03:40 03:40 06:17 WBC 12.1 H (3.8-10.6) k/uL RBC 3.16 L (3.80-5.40) m/uL Hgb 9.4 L (11.4-16.0) gm/dL Hct 28.6 L (34.0-46.0) % RDW 16.3 H (11.5-15.5) % Plt Count 93 L (150-450) k/uL Sodium 133 L (137-145) mmol/L BUN 28 H (7-17) mg/dL Glucose 183 H (74-99) mg/dL POC Glucose (mg/dL) 197 H (70-110) mg/dL Calcium 7.1 L (8.4-10.2) mg/dL Magnesium 2.4 H (1.6-2.3) mg/dL Total Bilirubin 1.8 H (0.2-1.3) mg/dL AST 42 H (14-36) U/L ALT 250 H (4-34) U/L Total Protein 4.5 L (6.3-8.2) g/dL Albumin 2.6 L (3.5-5.0) g/dL Microbiology - Last 24 Hours (Table) 03/07/22 16:28 Blood Culture - Preliminary Blood No Growth after 96 hours Assessment and Plan Assessment: ASSESSMENT Typical Atrial flutter,with severe bradycardic episode and of the 20s to 30s status post brief round of CPR. Appears mainly related to severe metabolic derangements with severe acidosis during surgery. Status post back surgery Paroxysmal atrial fibrillation Hypertension Hyperlipidemia Cardiomyopathy, ischemic vs non-ischemic Hyperkalemia Back pain Acute kidney injury PLAN Continue the current medical regimen Restart the patient back on oral anticoagulation once she is stable in terms of bleeding DC amiodarone IV and start the patient in the room. Continue monitor the kidney function and electrolytes and hemoglobin
[2022-03-12] MEDS: NOREPINEPHRINE 32 MG in SODIUM CHLORIDE 0.9% 218 ML IV SCH (09:05)
[2022-03-12] MEDS: DULoxetine HCL 60 MG CAPSULE.DR PO SCH (09:06)
[2022-03-12] MEDS: AMIODARONE 200 MG TAB PO SCH ×2 (09:06→20:28)
[2022-03-12] MEDS: PANTOPRAZOLE 40 MG/10 ML VIAL IVP SCH (09:06)
[2022-03-12] MEDS: GABAPENTIN 300 MG CAP PO SCH (09:06)
[2022-03-12] MEDS: ATORVASTATIN 10 MG TAB PO SCH (09:06)
[2022-03-12] MEDS: DEXAMETHASONE SOD PHOSPHATE 4 MG/ML 1 ML VIAL IVP SCH ×3 (09:07→23:15)
[2022-03-12] MEDS: SODIUM FERRIC GLUCONAT-SUCROSE 125 MG in SODIUM CHLORIDE 0.9% 100 ML IVPB SCH (09:51)
--- NOTE | 2022-03-12 10:19 | P.PN ---
Subjective Progress Note Date: 03/12/22 Principal diagnosis: Sepsis. The patient is seen today 03/09/2022 in follow-up in the intensive care unit. Postoperative day #13 of a T10 to post decompression and fusion. He has now developed GI bleeding. She had 3 bloody stools throughout the night. Her hemoglobin dropped to 6.6. She is receiving 1 unit of packed red blood cells for a total of 4 thus far this admission. Nasogastric tube has been placed. She is maintaining O2 saturations in the 90s on 2 L/m per nasal cannula. She is on norepinephrine at 4 mg/m. She is on D5 abuse with 3 A of bicarb at 75 ML's per hour. Chest x-ray reveals right basilar atelectasis with small effusion. Blood culture positive for enterococcus cloacae. Urine culture positive for gram-negative bacilli. White count 23.9. Hemoglobin 6.6. Platelets 131. Sodium 128. Potassium 4.2. BUN 66. Creatinine 1.25. Bicarb 25. Glucose 243. AST 586. ALT 740. She is continued on vancomycin and cefepime. Remains on Decadron. The patient is seen today 03/10/2022 in follow-up in the intensive care unit. Postoperative day #14 of a T10 post decompression and fusion. She did go back to the OR yesterday for washout and repair of the dura. Postoperative day #1. Dressing is dry and intact. There is a Hemovac in place. She came back intubated on the mechanical ventilator with settings of assist control mode at a rate of 14, tidal been 400, FiO2 35% and a PEEP of 5. P O2 178, pCO2 38, pH 7.48 on the 45%. She has normal saline at 75 ML's per hour. She did require small amount of norepinephrine which is currently off. She's on Diprivan at 20 mcg/kg/m. Chest x-ray reveals similar bibasilar opacity patchy airspace opa cities presenting infiltrate and/or atelectasis. Endotracheal tube in place. Nasogastric tube in place. She is status post 6 units of packed red blood cells this admission. 1 unit of platelets. Current hemoglobin 8.2. Platelets 94,000. White count 15.4. Sodium 135. Potassium 4.2. Bicarb 29. BUN 51. Creatinine 0.77. Glucose 194. She is continued on vancomycin and cefepime. She remains on Decadron. Blood cultures are positive for Enterobacter, urine culture positive for Enterobacter. She is currently afebrile. Hemodynamically stable. The patient is seen today 03/11/2022 in follow-up in the intensive care unit. Postoperative day #15. She is currently resting fairly comfortable in bed. Awake and alert. She is doing well on room air. She's been afebrile. She did have issues with atrial flutter and is currently on amiodarone drip at 1 mg/m. 0.9 normal saline at KVO. She was given Lasix 20 mg 1. She remains on cefepime. Blood and urine cultures were positive for Enterobacter. White count 11.1. Hemoglobin 8.9. Platelets 89,000. Sodium 134. Potassium 4.1. Bicarb 27. BUN 37. Creatinine 0.69. Blood glucose 200. If she is status post 7 units of packed red blood cells and 1 unit of platelets this admission. Hemodynamically stable. Not on pressors. Progress note dated 03/12/2022. 71-year-old female seen in room 256. The patient is postop day #16. Currently, she is on 3 L of oxygen. She's getting amiodarone at 0.5 mg/m. She is also getting saline at 10 mL an hour. She has received a total of 7 units of blood, and 1 unit of platelets. She appears much more alert and awake today, and states that she's feeling better although at times she states that she feels like somebody sitting on her chest. White count 12.1, hemoglobin 9.4, hematocri t 28.6, platelet count 93,000. Sodium 133, potassium 4.1, chlorides 103, CO2 28, BUN 28, creatinine 0.61. AST is 42. ALT is 250. Microbiologic studies show blood and urine positive for Enterobacter cloacae. Chest x-ray continues to show a pattern of CHF. Objective - Vital Signs Vital signs: Vital Signs Temp 98.2 F 03/12/22 08:00 Pulse 111 H 03/12/22 09:00 Resp 15 03/12/22 09:00 BP 143/75 03/12/22 09:00 Pulse Ox 98 03/12/22 09:00 FiO2 35 03/10/22 10:13 Intake & Output 03/11/22 03/12/22 03/12/22 18:59 06:59 18:59 Intake Total 1576.6 657.349 426.7 Output Total 1680 900 175 Balance -103.4 -242.651 251.7 Weight 144.5 kg Intake: IV 476.6 420.4 86.7 Cefepime 2 gm In Sodium 100 50 Chloride 0.9% 100 ml @ 25 mls/hr IVPB Q12H [facility] Rx# :[id number] Sodium Chloride 0.9% 1, 110 120 20 000 ml @ 75 mls/hr IV . [id number] [facility] Rx#:[id number] Sodium Ferric Gluconat- 100 Sucrose 125 mg In Sodium Chloride 0.9% 100 ml @ 100 mls/hr IVPB DAILY [facility] Rx#:[id number] amiodarone 266.6 200.4 16.7 Intake, IV Titration 236.949 100 Amount Amiodarone 450 mg In 236.949 Dextrose 5% in Water 250 ml @ 0.5 MG/MIN 16.667 mls/hr IV .Q15H [facility] Rx#: [id number] Sodium Ferric Gluconat- 100 Sucrose 125 mg In Sodium Chloride 0.9% 100 ml @ 100 mls/hr IVPB DAILY [facility] Rx#:[id number] Oral 1100 240 Output: Drainage 265 60 Right hemovac 265 60 Urine 1415 840 175 Other: Voiding Method Indwelling Catheter Indwelling Catheter # Bowel Movements 1 ABP, PAP, CO, CI - Last Documented Arterial Blood Pressure 176/77 - Exam No acute distress, oriented 3. Currently on 2 L of oxygen. No respiratory distress, audible wheezing, or use of accessory muscles. HEENT examination is grossly unremarkable. Neck supple. Full range of motion. No adenopathy thyromegaly or neck vein distention. Cardiovascular examination reveals regular rhythm rate. S1-S2 normal. No S3 or S4. No discernible murmur noted. Heart sounds are distant. Heart rate 111. Lungs reveal clear breath sounds. Breath sounds are equal bilaterally. No adventitious lung sounds including wheezes rhonchi or crackles. Saturations are 98%. Abdomen soft bowel sounds are heard. No masses or tenderness. Extremities are intact. Slight edema of the extremities. No cyanosis or clubbing. Skin is without rash or lesion. Large hematoma about the right breast. Neurologic examination is brief but nonfocal. - Labs CBC & Chem 7: 03/12/22 03:40 03/12/22 03:40 Labs: Abnormal Lab Results - Last 24 Hours (Table) 03/11/22 03/11/22 03/11/22 Range/Units 11:45 16:33 21:22 WBC (3.8-10.6) k/uL RBC (3.80-5.40) m/uL Hgb (11.4-16.0) gm/dL Hct (34.0-46.0) % RDW (11.5-15.5) % Plt Count (150-450) k/uL Sodium (137-145) mmol/L BUN (7-17) mg/dL Glucose (74-99) mg/dL POC Glucose (mg/dL) 230 H 304 H 275 H (70-110) mg/dL Calcium (8.4-10.2) mg/dL Magnesium (1.6-2.3) mg/dL Total Bilirubin (0.2-1.3) mg/dL AST (14-36) U/L ALT (4-34) U/L Total Protein (6.3-8.2) g/dL Albumin (3.5-5.0) g/dL 03/12/22 03/12/22 03/12/22 Range/Units 03:40 03:40 06:17 WBC 12.1 H (3.8-10.6) k/uL RBC 3.16 L (3.80-5.40) m/uL Hgb 9.4 L (11.4-16.0) gm/dL Hct 28.6 L (34.0-46.0) % RDW 16.3 H (11.5-15.5) % Plt Count 93 L (150-450) k/uL Sodium 133 L (137-145) mmol/L BUN 28 H (7-17) mg/dL Glucose 183 H (74-99) mg/dL POC Glucose (mg/dL) 197 H (70-110) mg/dL Calcium 7.1 L (8.4-10.2) mg/dL Magnesium 2.4 H (1.6-2.3) mg/dL Total Bilirubin 1.8 H (0.2-1.3) mg/dL AST 42 H (14-36) U/L ALT 250 H (4-34) U/L Total Protein 4.5 L (6.3-8.2) g/dL Albumin 2.6 L (3.5-5.0) g/dL Microbiology - Last 24 Hours (Table) 03/07/22 16:28 Blood Culture - Preliminary Blood No Growth after 96 hours Assessment and Plan Assessment: Acute sepsis with hypotension secondary to bacteremia/urinary tract infection w ith Enterobacter. Bacteremia secondary to Enterobacter cloacae. Atrial flutter fibrillation/flutter with a rapid ventricular response requiring amiodarone. Lactic acidosis. Acute renal failure. Hyperkalemia, improved. Hyponatremia, recovered. Leukocytosis, improved. Acute anemia with a hemoglobin dropped to 5.4. The patient had developed a large right sided chest wall/breast hematoma suspect secondary to fall on 03/06/2022. Lumbar decompression/fusion postoperative day #16. On 03/09/2022 she did require exploration and washout with dural repairs due to falls. Hemo-vac placed. Postoperative day #3. Cardiac arrest, brief pulseless electrical activity encountered in the operating room. Acute hypoxic/hypercapnic respiratory failure secondary to cardiac arrest/PEA. Morbid obesity, BMI of 49.0. History of right hemidiaphragm paralysis. History of right-sided breast cancer, previous lumpectomy. Chronic atrial fibrillation/flutter. Dyslipidemia. Benign essential hypertension. Plan: Plan dated 03/12/2022. The patient is currently on amiodarone 0.5 mg/m. She's received a total of 7 units of packed red blood cells, and 1 unit of platelets. She's currently on 2 L of oxygen. No respiratory distress. Labs, x-rays, and medications are all reviewed. Prognosis is guarded. We will continue to follow the patient and make recommendations along the way. She appeared to be much more awake and alert today. She remains on cefepime for her Enterobacter infection. Time with Patient: Greater than 30
--- NOTE | 2022-03-12 10:36 | P.PN ---
Progress Note - Text Progress Note Date: 03/12/22 The patient remains clinically unchanged. She is awake in the ICU. She has no real complaints of significant abdominal pain. Most the pain is located her back. She has tolerated some clear liquids. Her hemoglobin was 9.7. On exam vital signs appear stable. Abdomen is obese soft with minimal tenderness. There is no rebound or guarding. History of GI bleed related to atrial fibrillation. Patient will be observed. She will continue orthopedic care for her back.
--- NOTE | 2022-03-12 10:39 | P.PN ---
Subjective Progress Note Date: 03/12/22 Principal diagnosis: back surgery 71 yo CF with a hx of A fib s/p ablation, GERD, hypertension, dyslipidemia, and right diaphragmatic paralysis who presented for T10 to Pelvis decompression and fusion with revision. Blood loss and the case was approximately 1900 mL. During her operative course she required phenylephrine IV infusion, Vasopressin IVP. She also received TXA gtt. She received 7 L of lactated Ringer's. She received 1 amp of sodium bicarb intaop. She also received albumin. Her operative course was complicated with a cardiac arrest. During the case she developed A. fib with RVR and then quickly transitioned into bradycardia with a low end-tidal CO2. She received 0.4 of atropine and CPR was started. She received epinephrine 0.5. She achieved ROSC. Total down time was less than 5 minutes. Her levo was weaned overnight. During her sedation holiday she was responding appropriately. She was extubated on 02/25. She continued to do well with struggled with pain. She was downgraded from ICU on 03/03. She was evaluated by PMR. She had been progressing well with PT and OT while waiting on inpatient rehab. 03/07 Patient has complaints of chest pain and shortness of breath. She was hemodynamically stable with BP of 107/56 and P of 72 on 2L NC. CXR was ordered which showed patchy bibasilar opacities, likely atelectasis. CBC showed leukocytosis of 42.3 and Hg of 7.0. BMP showed Na 127, K 6.1, Cl 97, bicarb 14, BUN 43, Cr 1.12. Troponin showed 0.03 with EKG showing Q waves and no ST elevation. She was treated with 1L NS bolus, IV insulin/D50, Albuterol and sodium bicarbonate. Digoxin level was 1.1. Patient was re-evaluated around 2PM. Her BP had dropped to 78/47, heart rate in the 60s. She appeared more lethargic and states her chest pain had resolved. She did complain of dizziness and shortness of breath. She was bolused another 1L NS. BP improved to 80's/50's. Given her change in mental status and hypotensive nature, Dr. Willis was called and accepted the patient for transfuse back to ICU. 03/08 Patient was seen and examined. She reports continued shortness of breath and RLQ abdominal pain. She continues to have bouts of watery diarrhea with blood today. She was started on Levophed last night around 1AM, currently on 15 mcg/kg/min. Currently on D5W at 75 cc/hr. Hemoglobin improved from 5.4 to 8.3 after 2 unit PRBC, 6.0 on repeat. Leukocytosis improved from 41.3 to 31. ABG shows pH 7.47, pCO2 27. CMP shows a 127, bicarb 19, BUN 61, Cr 1.51, Ca 6.2, albumin of 2.1, total bilirubin 2.3, AST 2140, ALT 1613. Lactic acid persistently elevated at 5.7 despite IV hydration. 03/09 Patient was seen and examined. Patient has dark bilious fluid from the NG tube. She has had multiple bloody bowel movements overnight. Hg this morning is 6.6. Another PRBC is being ordered. Patient reports right sided abdominal pain. Currently on Levophed 5 mcg/kg/min. CBC shows WBC count of 23.9 and platelet count of 131. CMP shows Na 128, Cl 97, BUN 66, Cr 1.25, Ca 6.7, T. Bilirubin 2.9, AST 586, ALT 740 and albumin of 2.3. 03/10: Patent underwent repeat back surgery for cleaning of purulent material around the wound. She has been having black stools according to the nursing staff. She had 6 bowel movements last night. She is currently off pressors. WBC count 15, hemoglobin 8.2, creatinine 0.77, back to baseline. Sodium 135. 03/11 She was extubated and switched to NC. Currently tolerating well. She flipped into atrial flutter last night, was started on amiodarone drip by cardiology. She denies any current symptoms other than some back pain and some hip pain. I saw her was asking staff was cleaning her up, saw some bright red blood oozing from her rectum. She likely has hemorrhoids. She tolerated clear liquid diet that was started by general surgery yesterday. 03/12: Patient states that she is having intermittent chest pressure and shortness of breath, this comes and goes. Denied nausea or vomiting. No fevers or chills. No overnight events. Heart rate is still high at 110-115. Objective - Vital Signs Vital signs: Vital Signs Temp 98.2 F 03/12/22 08:00 Pulse 111 H 03/12/22 09:00 Resp 15 03/12/22 09:00 BP 143/75 03/12/22 09:00 Pulse Ox 98 03/12/22 09:00 FiO2 35 03/10/22 10:13 Intake & Output 03/11/22 03/12/22 03/12/22 18:59 06:59 18:59 Intake Total 1576.6 657.349 426.7 Output Total 1680 900 175 Balance -103.4 -242.651 251.7 Weight 144.5 kg Intake: IV 476.6 420.4 86.7 Cefepime 2 gm In Sodium 100 50 Chloride 0.9% 100 ml @ 25 mls/hr IVPB Q12H [facility] Rx# :[id number] Sodium Chloride 0.9% 1, 110 120 20 000 ml @ 75 mls/hr IV . [id number] [facility] Rx#:[id number] Sodium Ferric Gluconat- 100 Sucrose 125 mg In Sodium Chloride 0.9% 100 ml @ 100 mls/hr IVPB DAILY [facility] Rx#:[id number] amiodarone 266.6 200.4 16.7 Intake, IV Titration 236.949 100 Amount Amiodarone 450 mg In 236.949 Dextrose 5% in Water 250 ml @ 0.5 MG/MIN 16.667 mls/hr IV .Q15H [facility] Rx#: [id number] Sodium Ferric Gluconat- 100 Sucrose 125 mg In Sodium Chloride 0.9% 100 ml @ 100 mls/hr IVPB DAILY [facility] Rx#:[id number] Oral 1100 240 Output: Drainage 265 60 Right hemovac 265 60 Urine 1415 840 175 Other: Voiding Method Indwelling Catheter Indwelling Catheter # Bowel Movements 1 ABP, PAP, CO, CI - Last Documented Arterial Blood Pressure 176/77 - Exam General: ill appearing, no acute distress. Derm: warm, dry Head: atraumatic, normocephalic, symmetric Eyes: EOMI, no lid lag, anicteric sclera Mouth: no lip lesion, dry membranes moist Cardiovascular: S1S2 irregular, no murmur Lungs: Decreased BS bilateral, no rhonchi, no rales, no accessory muscle use Ext: no gross muscle atrophy, 1+ LE edema, no contractures Abd: Warren catheter in place. Obese. Tenderness to palpation RLQ with rebound. Back: Midline surgical scar intact. Foul smelling. Serousanguinous discharge. Neuro: Moving all 4 extremities independently - Labs CBC & Chem 7: 03/12/22 03:40 03/12/22 03:40 Labs: Abnormal Lab Results - Last 24 Hours (Table) 03/11/22 03/11/22 03/11/22 Range/Units 11:45 16:33 21:22 WBC (3.8-10.6) k/uL RBC (3.80-5.40) m/uL Hgb (11.4-16.0) gm/dL Hct (34.0-46.0) % RDW (11.5-15.5) % Plt Count (150-450) k/uL Sodium (137-145) mmol/L BUN (7-17) mg/dL Glucose (74-99) mg/dL POC Glucose (mg/dL) 230 H 304 H 275 H (70-110) mg/dL Calcium (8.4-10.2) mg/dL Magnesium (1.6-2.3) mg/dL Total Bilirubin (0.2-1.3) mg/dL AST (14-36) U/L ALT (4-34) U/L Total Protein (6.3-8.2) g/dL Albumin (3.5-5.0) g/dL 03/12/22 03/12/22 03/12/22 Range/Units 03:40 03:40 06:17 WBC 12.1 H (3.8-10.6) k/uL RBC 3.16 L (3.80-5.40) m/uL Hgb 9.4 L (11.4-16.0) gm/dL Hct 28.6 L (34.0-46.0) % RDW 16.3 H (11.5-15.5) % Plt Count 93 L (150-450) k/uL Sodium 133 L (137-145) mmol/L BUN 28 H (7-17) mg/dL Glucose 183 H (74-99) mg/dL POC Glucose (mg/dL) 197 H (70-110) mg/dL Calcium 7.1 L (8.4-10.2) mg/dL Magnesium 2.4 H (1.6-2.3) mg/dL Total Bilirubin 1.8 H (0.2-1.3) mg/dL AST 42 H (14-36) U/L ALT 250 H (4-34) U/L Total Protein 4.5 L (6.3-8.2) g/dL Albumin 2.6 L (3.5-5.0) g/dL Microbiology - Last 24 Hours (Table) 03/07/22 16:28 Blood Culture - Preliminary Blood No Growth after 96 hours Assessment and Plan Plan: #Septic shock, Enterobacter cloacae bacteremia secondary to wound infection #Sepsis, likely secondary to wound infection #Lactic acidosis Patient meets sepsis criteria with tachypnea, hypotension, leukocytosis. Currently off mechanical ventilation and pressors. Continue Cefepime, vancomycin discontinued on 03/10 per infectious disease. Blood cultures + Enterobacter cloacae Urine culture gram negative bacilli C.difficile negative. Telemetry monitoring. Pulmonology/ICU on board. #Acute blood loss anemia likely sec to GI bleeding which is likely hemorrhoidal #Right breast hematoma She is status post total of 7 units of PRBC transfusion. Discontinue Xarelto. CT surgery recommends conservative management of hematoma. She is iron deficient, received IV iron infusion for 3 days. #Abdominal pain #IIeus versus SBO Gen. surgery advancing diet #Acute kidney injury #Hyponatremia Resolved Renal US shows no hydronephrosis on the R, enlarged cyst in the L kidney measuring up to 8.3 cm. BETHANY likely due to ATN from septic shock and hypoNa from poor oral intake. Nephrology on board. #Transaminitis Improved Likely ischemic hepatitis secondary to shock liver. Improved #Atrial fibrillation #Atrial flutter with RVR Anticoagulation discontinued due to blood loss. Started on amio gtt by cardiology on board--switched to oral on 03/12. Discussed with Dr. Ren 03/12, will add metoprolol as HR still high. #Acute on chronic systolic CHF chronic Echo shows EF 35-40% with severe pulmonary HTN, moderate MR. Patient will need ischemic workup. Patient would benefit from ACEi and Aldactone prior to discharge. Starting lasix IV 03/12, she is very fluid overloaded likely worsened by IV fluid resuscitation. Cardiology on board. #T10 to pelvis decompression with fusion #Post-op pain #Status post second look wound debridement on 03/09 Management per Orthopedic surgery. Gabapentin, Valium, Flexeril. Decadron. Continue with Dilaudid and Percocet PRN. Patient has no stairs and planning on going home, she has nearby help from family but lives alone. PT and OT consulted. PMR consulted. #Aborted sudden cardiac Cardiology on board. Echocardiogram shows EF 35-40% with moderate MR. #Hyperglycemia likely sec to steroids No official DM diagnosis Levemir 10 units daily. A1c is 6, likely prediabetic, will benefit from metformin upon discharge. #Right diaphragmatic paralysis Aggressive pulmonary hygiene. Pulmonology on board. #HLD Statin. #HTN Cardizem, Digoxin and Atenolol due to hypotension. Monitor vitals and adjust medication if necessary. Resolved: Hyperkalemia
[2022-03-12] MEDS: FUROSEMIDE 10 MG/ML 4 ML VIAL IV SCH ×2 (11:06→20:29)
[2022-03-12] MEDS: METOPROLOL TARTRATE 25 MG TAB PO SCH ×2 (11:06→20:29)
--- NOTE | 2022-03-12 11:26 | P.PN ---
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 She states some minor LOZANO today but the caffiene helped yesterday so will likely do that again today. She states no blurred vision or change in vision. No f/c/sob/cp at this time. Nursing at bedside stated no events overnight. Drain in place. Warren in place. No pressors. No further tarry stools. Objective - Vital Signs Vital signs: Vital Signs Temp 98.2 F 03/12/22 08:00 Pulse 111 H 03/12/22 09:00 Resp 15 03/12/22 09:00 BP 143/75 03/12/22 09:00 Pulse Ox 98 03/12/22 09:00 FiO2 35 03/10/22 10:13 Intake & Output 03/11/22 03/12/22 03/12/22 18:59 06:59 18:59 Intake Total 1576.6 657.349 426.7 Output Total 1680 900 175 Balance -103.4 -242.651 251.7 Weight 144.5 kg Intake: IV 476.6 420.4 86.7 Cefepime 2 gm In Sodium 100 50 Chloride 0.9% 100 ml @ 25 mls/hr IVPB Q12H [facility] Rx# :[id number] Sodium Chloride 0.9% 1, 110 120 20 000 ml @ 75 mls/hr IV . [id number] [facility] Rx#:[id number] Sodium Ferric Gluconat- 100 Sucrose 125 mg In Sodium Chloride 0.9% 100 ml @ 100 mls/hr IVPB DAILY [facility] Rx#:[id number] amiodarone 266.6 200.4 16.7 Intake, IV Titration 236.949 100 Amount Amiodarone 450 mg In 236.949 Dextrose 5% in Water 250 ml @ 0.5 MG/MIN 16.667 mls/hr IV .Q15H [facility] Rx#: [id number] Sodium Ferric Gluconat- 100 Sucrose 125 mg In Sodium Chloride 0.9% 100 ml @ 100 mls/hr IVPB DAILY [facility] Rx#:[id number] Oral 1100 240 Output: Drainage 265 60 Right hemovac 265 60 Urine 1415 840 175 Other: Voiding Method Indwelling Catheter Indwelling Catheter # Bowel Movements 1 ABP, PAP, CO, CI - Last Documented Arterial Blood Pressure 176/77 - Exam exam is repeated, shis is in some pain which explains her vitals. we will change around he meds as she needs better control now that she can take PO meds. Dressing is CDI. Strengths are unchanged as of now. Drain in place, similar serous type fluid slightly clearer than normal. Drain with 10 cc in currently. 60 overnight. No other changes at this time. PHYSICAL EXAMINATION: Vitals: BP 177/88, heart rate 127 and currently converted regular, SpO2 98% on room air, temperature normal General: Awake, alert, appropriate for age, in no acute distress. HEENT: No unusual neck masses around region of lateral neck triangle, thyroid, supraclavicular groove. Extremities: Skin warm and dry without no acute lesions, coloration, temperature, skin intact, no tenderness or erythema. Integument: Surgical incisions: Dressings CDI . Palpation: Special findings: pain with palpation of the right breast area with large hematoma notedas well as anterior chest wall. VASCULAR STATUS : Wrist Pulses: [2/4 bilateral radial and ulnar] Pedal Pulses: [2/4 bilateral DP and PT] Color: [Normal] Edema: continues of third spacing of bilateral upper and lower extremities as well as abdomen at this time. There is 2+ pitting edema lower extremities. She did receive some Lasix. NEUROLOGIC EXAMINATION: Mental Status: Awake and alert, oriented,but slow with normal attention, concentration and memory, and fluent, he has slow speech Cranial Nerves: I: Olfactory not tested. II: Visual acuity normal, no visual field deficit noted with confrontation. III,IV: Normal pupillary reflexes & intact extraocular movements without nystagmus. V,: Intact symmetrical facial sensation. VII: Intact symmetrical facial motor movement VIII: Hearing intact. IX,X: Intact gag, swallow, & normal voice. XI: Sternocleidomastoid, trapezius function intact. XII: Tongue midline with normal movements. Special Tests: L'hermitte's Sign: Absent Straight Leg Raising: Absent Bilateral Motor Exam (0-5/5, N/T) STRENGTH 4+ out of 5 strength in upper extremity's bilaterally all major muscle groups without focal deficits generalized weakness 3+ to 5 strength bilateral lower extremities all major muscle groups with generalized weakness no focal deficits. She is weak in her hip flexors currently. REFLEXES Upper Extremity: RIGHT [2]/4 LEFT [2]/4 Lower Extremity: RIGHT [2]/4 LEFT [2]/4 Pathological Reflexes Warren's: RIGHT [Absent] LEFT [Absent] Babinski: RIGHT [Absent] LEFT [Absent] Clonus: RIGHT [None] LEFT [None] SENSORY Intact Gait and Functional Evaluation: Ambulatory aids: max assist with walker - Labs CBC & Chem 7: 03/12/22 03:40 03/12/22 03:40 Labs: Abnormal Lab Results - Last 24 Hours (Table) 03/11/22 03/11/22 03/11/22 Range/Units 11:45 16:33 21:22 WBC (3.8-10.6) k/uL RBC (3.80-5.40) m/uL Hgb (11.4-16.0) gm/dL Hct (34.0-46.0) % RDW (11.5-15.5) % Plt Count (150-450) k/uL Sodium (137-145) mmol/L BUN (7-17) mg/dL Glucose (74-99) mg/dL POC Glucose (mg/dL) 230 H 304 H 275 H (70-110) mg/dL Calcium (8.4-10.2) mg/dL Magnesium (1.6-2.3) mg/dL Total Bilirubin (0.2-1.3) mg/dL AST (14-36) U/L ALT (4-34) U/L Total Protein (6.3-8.2) g/dL Albumin (3.5-5.0) g/dL 03/12/22 03/12/22 03/12/22 Range/Units 03:40 03:40 06:17 WBC 12.1 H (3.8-10.6) k/uL RBC 3.16 L (3.80-5.40) m/uL Hgb 9.4 L (11.4-16.0) gm/dL Hct 28.6 L (34.0-46.0) % RDW 16.3 H (11.5-15.5) % Plt Count 93 L (150-450) k/uL Sodium 133 L (137-145) mmol/L BUN 28 H (7-17) mg/dL Glucose 183 H (74-99) mg/dL POC Glucose (mg/dL) 197 H (70-110) mg/dL Calcium 7.1 L (8.4-10.2) mg/dL Magnesium 2.4 H (1.6-2.3) mg/dL Total Bilirubin 1.8 H (0.2-1.3) mg/dL AST 42 H (14-36) U/L ALT 250 H (4-34) U/L Total Protein 4.5 L (6.3-8.2) g/dL Albumin 2.6 L (3.5-5.0) g/dL Microbiology - Last 24 Hours (Table) 03/07/22 16:28 Blood Culture - Preliminary Blood No Growth after 96 hours Assessment and Plan Assessment: 1. 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 Status post 7 units PRBC and 1 pack platelets -bilateral lower extremity weakness, status post multiple controlled falls in- house -Enterobacter sepsis, UTI - status post cardiac arrest Plan: -Appreciate employee relations consultant and team management PCC and medicine -appreciate cardiothoracic, Gen. surgery, nephrology, ID evaluations -continue Activity: Lay flat, Bed rest. Turn q2. HOB 10 deg only continue in bed therapy with ankle pumps to motions but squeezes quad thrusts and are motions. -Drain to gravity only -Cont Abx for duration of stay -Add caffiene daily 200 mg -Pain control: Change meds for better Tylenol dosing and pain control. Tylenol 1000 mg [facility], Oxy IR q4 hrs 10-15 mg titrated to pain (pt been on [place] for 20 yrs), Cont Gabapentin, -Add dose of Acetazolamide to help with dural issues -Meds: reviewed -Trend labs -transfusions to vitals as well as laboratory values. Currently she is stable with hemoglobin and hematocrit of any of his drop we will once again transfused. -GI ppx: senna, Miralax -continue Warren changed per protocol -DVT PPX: Mechanical only -Hygiene: Maintain dressing clean and dry. Meticulous cleaning after BMs away from incision site patient has had several instances on the floor where she was covered and bowel movement as well as urine up to her shoulders on her back. The wound needs to be kept meticulously clean. -Encourage IS 10x/hr -Will follow
[2022-03-12] MEDS ORDERED: CAFFEINE-SODIUM BENZOATE 500 MG in SODIUM CHLORIDE 0.9% 100 ML IVPB ONE (12:00)
[2022-03-12] MEDS: ACETAMINOPHEN TAB 500 MG TAB PO SCH ×3 (12:01→23:15)
[2022-03-12 12:11] LABS: Glucose,Whole Blood 242 mg/dL (70-110)
[2022-03-12] MEDS: GABAPENTIN 400 MG CAP PO SCH ×2 (16:38→20:28)
[2022-03-12 16:43] LABS: Glucose,Whole Blood 256 mg/dL (70-110)
--- NOTE | 2022-03-12 17:48 | P.PN ---
Subjective Progress Note Date: 03/11/22 Principal diagnosis: UTI and bacteremia Patient is a 71-year-old female with a past medical history difficult for atrial fibrillation flutter hypertension hyperlipidemia hypothyroidism right breast cancer electively admitted to the hospital more than 2 weeks ago 022 for T10 to lumbar spine revision decompression and posterior lateral interbody fusion, patient did have a episode of hypotension and elevated white count requiring admission to the ICU patient did have a positive UA and gram- negative bacteremia and is scheduled for exploration of the thoracolumbar incision completed on 03/09/2022 with apparently no evidence of any abscess as reported by the nursing staff On today's evaluation that is 03/11/2022 the patient continues to be afebrile , the patient is breathing comfortably on 2 L nasal cannula oxygen , the patient denies any chest pain, the patient did have occasional dry cough denies any worsening abdominal pain no nausea no vomiting or worsening diarrhea reported by the nursing staff Objective - Vital Signs Vital signs: Vital Signs Temp 97.9 F 03/11/22 08:00 Pulse 105 H 03/11/22 15:00 Resp 21 03/11/22 15:00 BP 158/76 03/11/22 15:00 Pulse Ox 93 L 03/11/22 15:00 FiO2 35 03/10/22 10:13 Intake & Output 03/10/22 03/11/22 03/11/22 18:59 06:59 18:59 Intake Total 1385.004 120 396.5 Output Total 8881 450 5674 Balance 155.004 -775 -1143.5 Weight 144 kg Intake: IV 855 120 396.5 Sodium Chloride 0.9% 1, 855 120 80 000 ml @ 75 mls/hr IV . [id number] [facility] Rx#:[id number] Sodium Ferric Gluconat- 100 Sucrose 125 mg In Sodium Chloride 0.9% 100 ml @ 100 mls/hr IVPB DAILY [facility] Rx#:[id number] amiodarone 216.5 Intake, IV Titration 220.004 Amount Norepinephrine 32 mg In 17.399 Sodium Chloride 0.9% 218 ml @ 0.03 MCG/KG/MIN 1. 938 mls/hr IV .Q24H [facility] Rx#:[id number] Sodium Ferric Gluconat- 100 Sucrose 125 mg In Sodium Chloride 0.9% 100 ml @ 100 mls/hr IVPB DAILY [facility] Rx#:[id number] propofoL 1,000 mg In 102.605 Empty Bag 1 bag @ 15 MCG/ KG/MIN 12.672 mls/hr IV . [id number] [facility] Rx#:[id number] Blood Product 310 Rc As-1 Unit 310 [id number] Output: Drainage 120 30 265 Left Hemovac 40 30 Right hemovac 80 265 Urine 5632 022 7088 Other: Voiding Method Indwelling Catheter Indwelling Catheter Indwelling Catheter # Bowel Movements 1 ABP, PAP, CO, CI - Last Documented Arterial Blood Pressure 158/70 - Exam GENERAL DESCRIPTION: An elderly female lying in bed in no distress RESPIRATORY SYSTEM: Unlabored breathing , decreased breath sounds at bases HEART: S1 S2 regular rate and rhythm , ABDOMEN: Soft , no tenderness EXTREMITIES: Diffuse swelling bilateral lower extremity - Labs CBC & Chem 7: 03/12/22 03:40 03/12/22 03:40 Labs: Abnormal Lab Results - Last 24 Hours (Table) 03/07/22 03/10/22 03/10/22 Range/Units 16:56 16:19 21:24 WBC (3.8-10.6) k/uL RBC (3.80-5.40) m/uL Hgb (11.4-16.0) gm/dL Hct (34.0-46.0) % RDW (11.5-15.5) % Plt Count (150-450) k/uL Neutrophils # (1.3-7.7) k/uL Lymphocytes # (1.0-4.8) k/uL Sodium (137-145) mmol/L BUN (7-17) mg/dL Glucose (74-99) mg/dL POC Glucose (mg/dL) 202 H 223 H (70-110) mg/dL Calcium (8.4-10.2) mg/dL Crossmatch See Detail 03/11/22 03/11/22 03/11/22 Range/Units 04:27 04:27 05:59 WBC 11.1 H (3.8-10.6) k/uL RBC 3.01 L (3.80-5.40) m/uL Hgb 8.9 L (11.4-16.0) gm/dL Hct 26.8 L (34.0-46.0) % RDW 16.2 H (11.5-15.5) % Plt Count 89 L (150-450) k/uL Neutrophils # 10.2 H (1.3-7.7) k/uL Lymphocytes # 0.4 L (1.0-4.8) k/uL Sodium 134 L (137-145) mmol/L BUN 37 H (7-17) mg/dL Glucose 200 H (74-99) mg/dL POC Glucose (mg/dL) 236 H (70-110) mg/dL Calcium 7.0 L (8.4-10.2) mg/dL Crossmatch 03/11/22 Range/Units 11:45 WBC (3.8-10.6) k/uL RBC (3.80-5.40) m/uL Hgb (11.4-16.0) gm/dL Hct (34.0-46.0) % RDW (11.5-15.5) % Plt Count (150-450) k/uL Neutrophils # (1.3-7.7) k/uL Lymphocytes # (1.0-4.8) k/uL Sodium (137-145) mmol/L BUN (7-17) mg/dL Glucose (74-99) mg/dL POC Glucose (mg/dL) 230 H (70-110) mg/dL Calcium (8.4-10.2) mg/dL Crossmatch Microbiology - Last 24 Hours (Table) 03/07/22 16:28 Blood Culture - Preliminary Blood No Growth after 72 hours 03/07/22 16:19 Blood Culture Gram Stain - Final Blood Blood Culture - Final Enterobacter cloacae Assessment and Plan (1) Gram-negative bacteremia Current Visit: Yes Status: Acute Code(s): R78.81 - BACTEREMIA SNOMED Code(s): 937374497629 Plan: 1patient with SIRS/sepsis in this patient who has been in the hospital for 2 weeks with elective admission to the hospital for thoracolumbar spine revision did have a cardiac arrest requiring resuscitation now with evidence of significant hypertension ileus and elevated white count source possible UTI as the patient urine as well as blood cultures are growing Enterobacter 2patient seemed to have shown some clinical improvement and will continue with the cefepime Time with Patient: Less than 30
--- NOTE | 2022-03-12 17:49 | P.PN ---
Subjective Progress Note Date: 03/12/22 Principal diagnosis: UTI and bacteremia Patient is a 71-year-old female with a past medical history difficult for atrial fibrillation flutter hypertension hyperlipidemia hypothyroidism right breast cancer electively admitted to the hospital more than 2 weeks ago 022 for T10 to lumbar spine revision decompression and posterior lateral interbody fusion, patient did have a episode of hypotension and elevated white count requiring admission to the ICU patient did have a positive UA and gram- negative bacteremia and is scheduled for exploration of the thoracolumbar incision completed on 03/09/2022 with apparently no evidence of any abscess as reported by the nursing staff On today's evaluation that is 03/12/2022 the patient denies any fever or chills , the patient is breathing comfortably on 2 L nasal cannula oxygen , the patient denies any chest pain, the patient denies any worsening cough or sputum production no abdominal pain no worsening diarrhea, mentioned feeling slightly better and the back pain is currently controlled Objective - Vital Signs Vital signs: Vital Signs Temp 98 F 03/12/22 12:00 Pulse 121 H 03/12/22 13:00 Resp 16 03/12/22 13:00 BP 154/69 03/12/22 13:00 Pulse Ox 98 03/12/22 13:00 FiO2 35 03/10/22 10:13 Intake & Output 03/11/22 03/12/22 03/12/22 18:59 06:59 18:59 Intake Total 1576.6 657.349 756.7 Output Total 1680 900 825 Balance -103.4 -242.651 -68.3 Weight 144.5 kg Intake: IV 476.6 420.4 76.7 Cefepime 2 gm In Sodium 100 Chloride 0.9% 100 ml @ 25 mls/hr IVPB Q12H [facility] Rx# :[id number] Sodium Chloride 0.9% 1, 110 120 60 000 ml @ 10 mls/hr IV . Q24H [facility] Rx#:[id number] Sodium Ferric Gluconat- 100 Sucrose 125 mg In Sodium Chloride 0.9% 100 ml @ 100 mls/hr IVPB DAILY [facility] Rx#:[id number] amiodarone 266.6 200.4 16.7 Intake, IV Titration 236.949 200 Amount Amiodarone 450 mg In 236.949 Dextrose 5% in Water 250 ml @ 0.5 MG/MIN 16.667 mls/hr IV .Q15H [facility] Rx#: [id number] Caffeine-Sodium Benzoate 100 500 mg In Sodium Chloride 0.9% 100 ml @ 1002 mls/ hr IVPB ONCE ONE Rx#: [id number] Sodium Ferric Gluconat- 100 Sucrose 125 mg In Sodium Chloride 0.9% 100 ml @ 100 mls/hr IVPB DAILY [facility] Rx#:[id number] Oral 1100 480 Output: Drainage 265 60 Right hemovac 265 60 Urine 1415 840 825 Other: Voiding Method Indwelling Catheter Indwelling Catheter Indwelling Catheter # Bowel Movements 1 1 ABP, PAP, CO, CI - Last Documented Arterial Blood Pressure 186/87 - Exam GENERAL DESCRIPTION: An elderly female lying in bed in no distress RESPIRATORY SYSTEM: Unlabored breathing , decreased breath sounds at bases HEART: S1 S2 regular rate and rhythm , ABDOMEN: Soft , no tenderness EXTREMITIES: Diffuse swelling bilateral lower extremity - Labs CBC & Chem 7: 03/12/22 03:40 03/12/22 03:40 Labs: Abnormal Lab Results - Last 24 Hours (Table) 03/11/22 03/11/22 03/12/22 Range/Units 16:33 21:22 03:40 WBC (3.8-10.6) k/uL RBC (3.80-5.40) m/uL Hgb (11.4-16.0) gm/dL Hct (34.0-46.0) % RDW (11.5-15.5) % Plt Count (150-450) k/uL Sodium 133 L (137-145) mmol/L BUN 28 H (7-17) mg/dL Glucose 183 H (74-99) mg/dL POC Glucose (mg/dL) 304 H 275 H (70-110) mg/dL Calcium 7.1 L (8.4-10.2) mg/dL Magnesium 2.4 H (1.6-2.3) mg/dL Total Bilirubin 1.8 H (0.2-1.3) mg/dL AST 42 H (14-36) U/L ALT 250 H (4-34) U/L Total Protein 4.5 L (6.3-8.2) g/dL Albumin 2.6 L (3.5-5.0) g/dL 03/12/22 03/12/22 03/12/22 Range/Units 03:40 06:17 12:09 WBC 12.1 H (3.8-10.6) k/uL RBC 3.16 L (3.80-5.40) m/uL Hgb 9.4 L (11.4-16.0) gm/dL Hct 28.6 L (34.0-46.0) % RDW 16.3 H (11.5-15.5) % Plt Count 93 L (150-450) k/uL Sodium (137-145) mmol/L BUN (7-17) mg/dL Glucose (74-99) mg/dL POC Glucose (mg/dL) 197 H 242 H (70-110) mg/dL Calcium (8.4-10.2) mg/dL Magnesium (1.6-2.3) mg/dL Total Bilirubin (0.2-1.3) mg/dL AST (14-36) U/L ALT (4-34) U/L Total Protein (6.3-8.2) g/dL Albumin (3.5-5.0) g/dL Microbiology - Last 24 Hours (Table) 03/07/22 16:28 Blood Culture - Preliminary Blood No Growth after 96 hours Assessment and Plan (1) Gram-negative bacteremia Current Visit: Yes Status: Acute Code(s): R78.81 - BACTEREMIA SNOMED Code(s): 668574911505 Plan: 1patient with SIRS/sepsis in this patient who has been in the hospital for 2 weeks with elective admission to the hospital for thoracolumbar spine revision did have a cardiac arrest requiring resuscitation now with evidence of significant hypertension ileus and elevated white count source possible UTI as the patient urine as well as blood cultures are growing Enterobacter 2patient seemed to have shown some clinical improvement and the patient white count has also significantly down to 12,000 today, patient will continue with the cefepime and monitor clinical course closely Time with Patient: Less than 30
[2022-03-12 20:23] LABS: Glucose,Whole Blood 244 mg/dL (70-110)
[2022-03-13] MEDS: CHLORHEXIDINE GLUCONATE 15 ML CUP MUCOUS MEM SCH (00:42)
[2022-03-13] MEDS: DIGOXIN 250 MCG TAB PO SCH (00:44)
[2022-03-13] MEDS: CEFEPIME 2 GM in SODIUM CHLORIDE 0.9% 100 ML IVPB SCH ×2 (01:58→14:15)
[2022-03-13 03:29] LABS: HCT 27.9 % (34.0-46.0); HGB 9.6 gm/dL (11.4-16.0); Hypochromasia Slight; MCHC 34.4 g/dL (31.0-37.0); MCV 90.2 fL (80.0-100.0); Mean Platelet Volume 9.3; Poikilocytosis Slight; RBC 3.09 m/uL (3.80-5.40); RDW 15.7 % (11.5-15.5); WBC 9.8 k/uL (3.8-10.6)
[2022-03-13 03:31] LABS: Platelet Count 81 k/uL (150-450)
[2022-03-13 03:45] LABS: ALT 185 U/L (4-34); AST 31 U/L (14-36); African American GFR (CKD) >90 (>60 ml/min/1.73 sqM); Albumin 2.7 g/dL (3.5-5.0); Alkaline Phosphatase 104 U/L (38-126); Anion Gap 1 mmol/L; Blood Urea Nitrogen 27 mg/dL (7-17); Calcium 7.1 mg/dL (8.4-10.2); Carbon Dioxide 32 mmol/L (22-30); Chloride 100 mmol/L (98-107); Glucose 158 mg/dL (74-99); Magnesium 2.2 mg/dL (1.6-2.3); Non-African American GFR(CKD) >90 (>60 ml/min/1.73 sqM); Potassium 4.1 mmol/L (3.5-5.1); Sodium 133 mmol/L (137-145); Total Bilirubin 1.6 mg/dL (0.2-1.3); Total Protein 4.6 g/dL (6.3-8.2)
[2022-03-13] MEDS: SODIUM CHLORIDE 0.9% 1,000 ML IV SCH (03:45)
[2022-03-13] MEDS: HYDROmorphone 1 MG/ML 1 ML SYRINGE IVP PRN ×6 (05:14→22:49)
[2022-03-13 05:52] LABS: Glucose,Whole Blood 190 mg/dL (70-110)
[2022-03-13] MEDS: LEVOTHYROXINE 88 MCG TAB PO SCH (06:00)
[2022-03-13] MEDS: ACETAMINOPHEN TAB 500 MG TAB PO SCH ×3 (06:00→17:39)
[2022-03-13] MEDS: CYCLOBENZAPRINE 10 MG TAB PO PRN (06:00)
[2022-03-13] MEDS: INSULIN DETEMIR (LEVEMIR) 100 UNIT/ML SYR SQ SCH (06:00)
[2022-03-13] MEDS: INSULIN ASPART (NovoLOG) 100 UNIT/ML VIAL SQ SCH ×4 (06:01→20:15)
[2022-03-13] MEDS: diazePAM 2 MG TAB PO PRN (07:09)
--- NOTE | 2022-03-13 07:51 | P.PN ---
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 She is doing fairly well. Got some more sleep last night and she is awake now trying to move as much as possible. Nursing at bedside states last night she had a large loose stool and to protect her wound a FBS was placed. She states this made her feel better and more protected. She states some pain that is controlled with meds currently, but she is very anxious. She tolerated rolling in bed and her turns last night w/o LOZANO, N, V, Blurred or change in vision. She states no sx right now. States no numbness/tingling in her legs currently. States no other issues overnight. Objective - Vital Signs Vital signs: Vital Signs Temp 98 F 03/13/22 04:00 Pulse 123 H 03/13/22 07:00 Resp 16 03/13/22 07:00 BP 161/82 03/13/22 07:00 Pulse Ox 99 03/13/22 07:00 FiO2 35 03/10/22 10:13 Intake & Output 03/12/22 03/13/22 03/13/22 18:59 06:59 18:59 Intake Total 1276.7 220 Output Total 20090 Balance -733.3 -2330 Weight 136.2 kg Intake: IV 236.7 220 Cefepime 2 gm In Sodium 100 100 Chloride 0.9% 100 ml @ 25 mls/hr IVPB Q12H [facility] Rx# :[id number] Sodium Chloride 0.9% 1, 120 120 000 ml @ 10 mls/hr IV . Q24H [facility] Rx#:[id number] amiodarone 16.7 Intake, IV Titration 200 Amount Caffeine-Sodium Benzoate 100 500 mg In Sodium Chloride 0.9% 100 ml @ 1002 mls/ hr IVPB ONCE ONE Rx#: [id number] Sodium Ferric Gluconat- 100 Sucrose 125 mg In Sodium Chloride 0.9% 100 ml @ 100 mls/hr IVPB DAILY [facility] Rx#:[id number] Oral 840 Output: Drainage 60 20 Right hemovac 60 20 Urine 1950 2530 Other: Voiding Method Indwelling Catheter Indwelling Catheter # Bowel Movements 1 1 ABP, PAP, CO, CI - Last Documented Arterial Blood Pressure 178/79 - Exam exam today shows dressing is CDI despite large BM last night and is sealed off with the Ioband still very well. No evidence of drainage or wet dressing. Drain is in place with serous clear fluid out around 20cc in drain and NSG states 20cc overnight. The remainder of the exam is as stated below PHYSICAL EXAMINATION: Vitals: BP 177/88 Art line is not reading well. Cuff pressures in 140s systolic, heart rate 122 and currently Aflutter, SpO2 98% on room air, temperature normal General: Awake, alert, appropriate for age, in no acute distress. HEENT: No changes Extremities: Skin warm and dry without no acute lesions, coloration, temperature, skin intact, no tenderness or erythema. Integument: Surgical incisions: Dressings CDI . Palpation: Special findings: pain with palpation of the right breast area with large hematoma notedas well as anterior chest wall. VASCULAR STATUS : Wrist Pulses: [2/4 bilateral radial and ulnar] Pedal Pulses: [2/4 bilateral DP and PT] Color: [Normal] Edema: Improved in arms and hands. Nursing states 3-4L off last night with her lasix and other meds. NEUROLOGIC EXAMINATION: Mental Status: Awake and alert, oriented,but slow with normal attention, concentration and memory, and fluent, he has slow speech Cranial Nerves: I: Olfactory not tested. II: Visual acuity normal, no visual field deficit noted with confrontation. III,IV: Normal pupillary reflexes & intact extraocular movements without nystagmus. V,: Intact symmetrical facial sensation. VII: Intact symmetrical facial motor movement VIII: Hearing intact. IX,X: Intact gag, swallow, & normal voice. XI: Sternocleidomastoid, trapezius function intact. XII: Tongue midline with normal movements. Special Tests: L'hermitte's Sign: Absent Straight Leg Raising: Absent Bilateral Motor Exam (0-5/5, N/T) STRENGTH 4+ out of 5 strength in upper extremity's bilaterally all major muscle groups without focal deficits generalized weakness 4- to 5 strength bilateral lower extremities all major muscle groups with generalized weakness no focal deficits. She is weak in her hip flexors currently. REFLEXES Upper Extremity: RIGHT [2]/4 LEFT [2]/4 Lower Extremity: RIGHT [2]/4 LEFT [2]/4 Pathological Reflexes Warren's: RIGHT [Absent] LEFT [Absent] Babinski: RIGHT [Absent] LEFT [Absent] Clonus: RIGHT [None] LEFT [None] SENSORY Intact Gait and Functional Evaluation: Ambulatory aids: max assist with walker - Constitutional General appearance: Present: cooperative, morbidly obese - EENT Eyes: Present: PERRLA - Neurologic Neurologic: Present: CNII-XII intact - Psychiatric Psychiatric: Present: A&O x's 3 - Labs CBC & Chem 7: 03/13/22 03:00 03/13/22 03:00 Labs: Abnormal Lab Results - Last 24 Hours (Table) 03/12/22 03/12/22 03/12/22 Range/Units 12:09 16:41 20:22 RBC (3.80-5.40) m/uL Hgb (11.4-16.0) gm/dL Hct (34.0-46.0) % RDW (11.5-15.5) % Plt Count (150-450) k/uL Sodium (137-145) mmol/L Carbon Dioxide (22-30) mmol/L BUN (7-17) mg/dL Glucose (74-99) mg/dL POC Glucose (mg/dL) 242 H 256 H 244 H (70-110) mg/dL Calcium (8.4-10.2) mg/dL Total Bilirubin (0.2-1.3) mg/dL ALT (4-34) U/L Total Protein (6.3-8.2) g/dL Albumin (3.5-5.0) g/dL 03/13/22 03/13/22 03/13/22 Range/Units 03:00 03:00 05:51 RBC 3.09 L (3.80-5.40) m/uL Hgb 9.6 L (11.4-16.0) gm/dL Hct 27.9 L (34.0-46.0) % RDW 15.7 H (11.5-15.5) % Plt Count 81 L (150-450) k/uL Sodium 133 L (137-145) mmol/L Carbon Dioxide 32 H (22-30) mmol/L BUN 27 H (7-17) mg/dL Glucose 158 H (74-99) mg/dL POC Glucose (mg/dL) 190 H (70-110) mg/dL Calcium 7.1 L (8.4-10.2) mg/dL Total Bilirubin 1.6 H (0.2-1.3) mg/dL ALT 185 H (4-34) U/L Total Protein 4.6 L (6.3-8.2) g/dL Albumin 2.7 L (3.5-5.0) g/dL Microbiology - Last 24 Hours (Table) 03/07/22 16:28 Blood Culture - Preliminary Blood No Growth after 120 hours Assessment and Plan Assessment: 1. 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 Status post 7 units PRBC and 1 pack platelets -bilateral lower extremity weakness, status post multiple controlled falls in- house -Enterobacter sepsis, UTI - status post cardiac arrest Plan: -Appreciate information security consultant and team management PCC and medicine -appreciate cardiothoracic, Gen. surgery, nephrology, ID evaluations -continue Activity: Lay flat, Bed rest. Turn q2. HOB 30 deg OK continue in bed therapy with ankle pumps to motions but squeezes quad thrusts and are motions. -Attempt Proning today as long as pt can tolerate. -Drain to gravity only -Cont Abx for duration of stay -Add caffiene daily 200 mg daily -Pain control: Adequate today ( Tylenol 1000 mg [facility], Oxy IR q4 hrs 10-15 mg titrated to pain (pt been on [place] for 20 yrs), Cont Gabapentin,) -Add dose of Acetazolamide to help with dural issues -Meds: reviewed -Trend labs -transfusions to vitals -GI ppx: senna, Miralax -continue Warren changed per protocol -Cont with FBS -DVT PPX: Mechanical only -Hygiene: Maintain dressing clean and dry. Meticulous cleaning after BMs away from incision site patient has had several instances on the floor where she was covered and bowel movement as well as urine up to her shoulders on her back. The wound needs to be kept meticulously clean. -Encourage IS 10x/hr -Will follow
[2022-03-13] MEDS: DEXAMETHASONE SOD PHOSPHATE 4 MG/ML 1 ML VIAL IVP SCH ×2 (08:09→16:34)
[2022-03-13] MEDS: FUROSEMIDE 10 MG/ML 4 ML VIAL IV SCH ×2 (08:09→20:20)
[2022-03-13] MEDS: SODIUM FERRIC GLUCONAT-SUCROSE 125 MG in SODIUM CHLORIDE 0.9% 100 ML IVPB SCH (08:09)
[2022-03-13] MEDS: ATORVASTATIN 10 MG TAB PO SCH (08:10)
[2022-03-13] MEDS: DULoxetine HCL 60 MG CAPSULE.DR PO SCH (08:10)
[2022-03-13] MEDS: NOREPINEPHRINE 32 MG in SODIUM CHLORIDE 0.9% 218 ML IV SCH (08:10)
[2022-03-13] MEDS: GABAPENTIN 400 MG CAP PO SCH ×3 (08:10→21:35)
[2022-03-13] MEDS: METOPROLOL TARTRATE 25 MG TAB PO SCH (08:10)
[2022-03-13] MEDS: AMIODARONE 200 MG TAB PO SCH ×2 (08:10→20:23)
[2022-03-13] MEDS: PANTOPRAZOLE 40 MG/10 ML VIAL IVP SCH (08:12)
--- NOTE | 2022-03-13 08:32 | P.PN ---
Subjective Progress Note Date: 03/13/22 PROGRESS NOTE The patient is a 71-year-old female who underwent lumbar surgery on February 24 for severe stenosis, mechanical low back pain and neurogenic claudication. She has a known history of atrial flutter, atrial fibrillation. She continues to be in atrial flutter at this time with 2 to one conduction. She had an echocardiogram on February 27 that showed an ejection fraction of 35-40% with moderate mitral regurgitation. In 2018 her LV systolic function was normal. It is unclear if this deterioration is an acute event following her surgery. She feels better overall, has musculoskeletal right-sided discomfort. She is not anticoagulated because of recent bleeding. She denies any nausea or vomiting. Her blood pressure is under good control. She had positive urine culture. Medications: Amiodarone 400 mg twice a day, Lipitor 10 mg daily, Lasix 40 mg IV every 12 hours, metoprolol 25 mg twice a day, Protonix. PHYSICAL EXAMINATION: Blood pressure 160/80 heart rate 120 LUNGS: Clear to auscultation HEART: Regular rate and rhythm, , tachycardic S1, S2. No S3. No systolic murmur ABDOMEN: Soft, nontender, no organomegaly, obese EXTREMETIES: +1-2 edema LAB: BUN 27, creatinine 0.6, hemoglobin 9.6, potassium 4.1 IMPRESSION: 1. Status post back surgery 2. Atrial flutter with rapid ventricular response, not anticoagulated because of recent bleeding 3. Anemia 4. Cardiomyopathy of unknown etiology 5. Bacteremia 6. Acute renal injury resolved 7. Morbid obesity 8. Hyperlipidemia 9. Hypertension PLAN: 1. Increase beta nic 2. Add VEGA inhibitor 3. Continue to hold anticoagulation for now 4. Depending on her ventricular response further recommendations will be made. Patient is not a candidate for cardioversion because of the absence of anticoagulation at this time. 5. Prognosis is guarded Objective - Vital Signs Vital signs: Vital Signs Temp 98 F 03/13/22 04:00 Pulse 123 H 03/13/22 07:00 Resp 16 03/13/22 07:00 BP 161/82 03/13/22 07:00 Pulse Ox 98 03/13/22 07:50 FiO2 35 03/10/22 10:13 Intake & Output 03/12/22 03/13/22 03/13/22 18:59 06:59 18:59 Intake Total 1276.7 220 Output Total 20090 Balance -733.3 -2330 Weight 136.2 kg Intake: IV 236.7 220 Cefepime 2 gm In Sodium 100 100 Chloride 0.9% 100 ml @ 25 mls/hr IVPB Q12H [facility] Rx# :[id number] Sodium Chloride 0.9% 1, 120 120 000 ml @ 10 mls/hr IV . Q24H [facility] Rx#:[id number] amiodarone 16.7 Intake, IV Titration 200 Amount Caffeine-Sodium Benzoate 100 500 mg In Sodium Chloride 0.9% 100 ml @ 1002 mls/ hr IVPB ONCE ONE Rx#: [id number] Sodium Ferric Gluconat- 100 Sucrose 125 mg In Sodium Chloride 0.9% 100 ml @ 100 mls/hr IVPB DAILY [facility] Rx#:[id number] Oral 840 Output: Drainage 60 20 Right hemovac 60 20 Urine 1950 2530 Other: Voiding Method Indwelling Catheter Indwelling Catheter # Bowel Movements 1 1 ABP, PAP, CO, CI - Last Documented Arterial Blood Pressure 178/79 - Labs CBC & Chem 7: 03/13/22 03:00 03/13/22 03:00 Labs: Abnormal Lab Results - Last 24 Hours (Table) 03/12/22 03/12/22 03/12/22 Range/Units 12:09 16:41 20:22 RBC (3.80-5.40) m/uL Hgb (11.4-16.0) gm/dL Hct (34.0-46.0) % RDW (11.5-15.5) % Plt Count (150-450) k/uL Sodium (137-145) mmol/L Carbon Dioxide (22-30) mmol/L BUN (7-17) mg/dL Glucose (74-99) mg/dL POC Glucose (mg/dL) 242 H 256 H 244 H (70-110) mg/dL Calcium (8.4-10.2) mg/dL Total Bilirubin (0.2-1.3) mg/dL ALT (4-34) U/L Total Protein (6.3-8.2) g/dL Albumin (3.5-5.0) g/dL 03/13/22 03/13/22 03/13/22 Range/Units 03:00 03:00 05:51 RBC 3.09 L (3.80-5.40) m/uL Hgb 9.6 L (11.4-16.0) gm/dL Hct 27.9 L (34.0-46.0) % RDW 15.7 H (11.5-15.5) % Plt Count 81 L (150-450) k/uL Sodium 133 L (137-145) mmol/L Carbon Dioxide 32 H (22-30) mmol/L BUN 27 H (7-17) mg/dL Glucose 158 H (74-99) mg/dL POC Glucose (mg/dL) 190 H (70-110) mg/dL Calcium 7.1 L (8.4-10.2) mg/dL Total Bilirubin 1.6 H (0.2-1.3) mg/dL ALT 185 H (4-34) U/L Total Protein 4.6 L (6.3-8.2) g/dL Albumin 2.7 L (3.5-5.0) g/dL Microbiology - Last 24 Hours (Table) 03/07/22 16:28 Blood Culture - Preliminary Blood No Growth after 120 hours
[2022-03-13] MEDS ORDERED: METOPROLOL TARTRATE 25 MG TAB PO STA (09:15)
[2022-03-13] MEDS: METOPROLOL TARTRATE 50 MG TAB PO SCH ×2 (09:16→20:23)
[2022-03-13] MEDS: acetaZOLAMIDE 250 MG TAB PO SCH (09:33)
[2022-03-13] MEDS: lisinopriL 5 MG TAB PO SCH (09:34)
[2022-03-13] MEDS ORDERED: INSULIN DETEMIR (LEVEMIR) 100 UNIT/ML SYR SQ ONE (11:00)
[2022-03-13 11:43] LABS: Glucose,Whole Blood 283 mg/dL (70-110)
--- NOTE | 2022-03-13 12:52 | P.PN ---
Subjective Progress Note Date: 03/13/22 CHIEF COMPLAINT: Spinal surgery HISTORY OF PRESENT ILLNESS: Patient is in the ICU. She denies any abdominal pain. Denies any bloody stools. She's currently tolerating full liquid diet. Afebrile. Tachycardic. WBC is down from 12.1 to 9.8. hgb trending up 9.6 plt81 sodium 133 potassium is 4.1 creatinine 0.61 PHYSICAL EXAM: VITAL SIGNS: Reviewed. GENERAL: Well-developed in no acute distress. HEENT: No sclera icterus. Extraocular movements grossly intact. Moist buccal mucosa. Head is atraumatic, normocephalic. CHEST: Hematoma on right side of chest wall is decreasing in size. Her right br east swelling and hematoma is softer. ABDOMEN: Soft. Obese. Nondistended. Nontender. NEUROLOGIC: Alert and oriented. Cranial nerves II through XII grossly intact. ASSESSMENT: 1. Right-sided abdominal pain with bloody stool with hypotension, elevated lactic acid level and elevated WBC. Concerns for possible ischemic colitis 2. Right chest wall and breast hematoma likely due to CPR from cardiac arrest 3. Gastric distention and mild proximal small bowel dilation 4. Acute GI bleed with acute blood loss anemia patient had been on blood thinners 5. Sepsis 6. Lumbar decompression/fusion and status post washout 7. EGD showing mild gastritis, mild esophagitis and no active bleeding PLAN: -Continue full liquid diet -Continue supportive care -Continue to monitor hemoglobin -Continue monitor for any signs or symptoms of bleeding -Continue to keep anticoagulation on hold -Continue PPI Physician Sandblaster Paint Sprayer note has been reviewed by physician. Signing provider agrees with the documented findings, assessment, and plan of care. I have personally seen and examined the patient, reviewed the MULTIMEDIA PROGRAMMER /PAs history, exam and MDM and agree with the assessment and plan as written. Based on total visit time, I have performed more than 50% of the visit. As above: Patient with no abdominal pain this morning. GI bleed has resolved over the weekend. Follow hemoglobin. Increase activity per orthopedics. Gradually advance diet as tolerated. Objective - Vital Signs Vital signs: Vital Signs Temp 97.7 F 03/13/22 08:00 Pulse 115 H 03/13/22 11:00 Resp 16 03/13/22 11:00 BP 131/83 03/13/22 11:00 Pulse Ox 97 03/13/22 11:00 FiO2 35 12/09/22 10:13 Intake & Output 03/12/22 03/13/22 03/13/22 18:59 06:59 18:59 Intake Total 1276.7 220 380 Output Total 2009 2549 2670 Balance -733.3 -2330 -2290 Weight 136.2 kg Intake: IV 236.7 220 40 Cefepime 2 gm In Sodium 100 100 Chloride 0.9% 100 ml @ 25 mls/hr IVPB Q12H [facility] Rx# :[id number] Sodium Chloride 0.9% 1, 120 120 40 000 ml @ 10 mls/hr IV . Q24H [facility] Rx#:[id number] amiodarone 16.7 Intake, IV Titration 200 100 Amount Caffeine-Sodium Benzoate 100 500 mg In Sodium Chloride 0.9% 100 ml @ 1002 mls/ hr IVPB ONCE ONE Rx#: [id number] Sodium Ferric Gluconat- 100 100 Sucrose 125 mg In Sodium Chloride 0.9% 100 ml @ 100 mls/hr IVPB DAILY [facility] Rx#:[id number] Oral 840 240 Output: Drainage 60 20 Right hemovac 60 20 Urine 1950 2530 2670 Other: Voiding Method Indwelling Catheter Indwelling Catheter # Bowel Movements 1 1 ABP, PAP, CO, CI - Last Documented Arterial Blood Pressure 151/73 - Labs CBC & Chem 7: 03/13/22 03:00 03/13/22 03:00 Labs: Abnormal Lab Results - Last 24 Hours (Table) 03/12/22 03/12/22 03/13/22 Range/Units 16:41 20:22 03:00 RBC (3.80-5.40) m/uL Hgb (11.4-16.0) gm/dL Hct (34.0-46.0) % RDW (11.5-15.5) % Plt Count (150-450) k/uL Sodium 133 L (137-145) mmol/L Carbon Dioxide 32 H (22-30) mmol/L BUN 27 H (7-17) mg/dL Glucose 158 H (74-99) mg/dL POC Glucose (mg/dL) 256 H 244 H (70-110) mg/dL Calcium 7.1 L (8.4-10.2) mg/dL Total Bilirubin 1.6 H (0.2-1.3) mg/dL ALT 185 H (4-34) U/L Total Protein 4.6 L (6.3-8.2) g/dL Albumin 2.7 L (3.5-5.0) g/dL 03/13/22 03/13/22 03/13/22 Range/Units 03:00 05:51 11:41 RBC 3.09 L (3.80-5.40) m/uL Hgb 9.6 L (11.4-16.0) gm/dL Hct 27.9 L (34.0-46.0) % RDW 15.7 H (11.5-15.5) % Plt Count 81 L (150-450) k/uL Sodium (137-145) mmol/L Carbon Dioxide (22-30) mmol/L BUN (7-17) mg/dL Glucose (74-99) mg/dL POC Glucose (mg/dL) 190 H 283 H (70-110) mg/dL Calcium (8.4-10.2) mg/dL Total Bilirubin (0.2-1.3) mg/dL ALT (4-34) U/L Total Protein (6.3-8.2) g/dL Albumin (3.5-5.0) g/dL Microbiology - Last 24 Hours (Table) 03/07/22 16:28 Blood Culture - Preliminary Blood No Growth after 120 hours
--- NOTE | 2022-03-13 12:53 | P.PN ---
Subjective Progress Note Date: 03/13/22 Patient is doing better, improving from sepsis. No pressor requirement. Blood count is stable. Pending PT/OT evaluation. Gen: awake, alert HEENT: normocephalic, atraumatic, good hearing acuity, moist mucous membranes Resp: good air exchange, breathing comfortably with no accessory muscle use CVS: good distal perfusion x 4, GI: soft, NTTP, ND : no SPT, no CVAT, wiley catheter is present MSK: 4+ pitting edema, no clubbing Neuro: non-focal, moving all extremities Psych: cooperative, euthymic mood Assessment/plan: #Septic shock, Enterobacter cloacae bacteremia secondary to wound infection #Sepsis, likely secondary to wound infection #Lactic acidosis Patient meets sepsis criteria with tachypnea, hypotension, leukocytosis. Currently off mechanical ventilation and pressors. Continue Cefepime, vancomycin discontinued on 03/10 per infectious disease. Blood cultures + Enterobacter cloacae Urine culture gram negative bacilli C.difficile negative. Telemetry monitoring. Pulmonology/ICU on board. #Acute blood loss anemia likely sec to GI bleeding which is likely hemorrhoidal #Right breast hematoma She is status post total of 7 units of PRBC transfusion. Discontinue Xarelto. CT surgery recommends conservative management of hematoma. She is iron deficient, received IV iron infusion for 3 days. #Abdominal pain #IIeus versus SBO Gen. surgery advancing diet #Acute kidney injury #Hyponatremia Resolved Renal US shows no hydronephrosis on the R, enlarged cyst in the L kidney measuring up to 8.3 cm. BETHANY likely due to ATN from septic shock and hypoNa from poor oral intake. Nephrology on board. #Transaminitis Improved Likely ischemic hepatitis secondary to shock liver. Improved #Atrial fibrillation #Atrial flutter with RVR Anticoagulation discontinued due to blood loss. Started on amio gtt by cardiology on board--switched to oral on 03/12. Discussed with Dr. Ren 03/12, will add metoprolol as HR still high. #Acute on chronic systolic CHF chronic Echo shows EF 35-40% with severe pulmonary HTN, moderate MR. Patient will need ischemic workup. Patient started on ACEi and Aldactone Starting lasix IV 03/12, she is very fluid overloaded likely worsened by IV fluid resuscitation. Cardiology on board. #T10 to pelvis decompression with fusion #Post-op pain #Status post second look wound debridement on 03/09 Management per Orthopedic surgery. Gabapentin, Valium, Flexeril. Decadron. Continue with Dilaudid and Percocet PRN. Patient has no stairs and planning on going home, she has nearby help from family but lives alone. PT and OT consulted. PMR consulted. #Aborted sudden cardiac Cardiology on board. Echocardiogram shows EF 35-40% with moderate MR. #Hyperglycemia likely sec to steroids No official DM diagnosis Levemir 10 units daily. A1c is 6, likely prediabetic, will benefit from metformin upon discharge. #Right diaphragmatic paralysis Aggressive pulmonary hygiene. Pulmonology on board. #HLD Statin. #HTN Cardizem, Digoxin and Atenolol due to hypotension. Monitor vitals and adjust medication if necessary. Resolved: Hyperkalemia Objective - Vital Signs Vital signs: Vital Signs Temp 97.7 F 03/13/22 08:00 Pulse 115 H 03/13/22 11:00 Resp 16 03/13/22 11:00 BP 131/83 03/13/22 11:00 Pulse Ox 97 03/13/22 11:00 FiO2 35 03/10/22 10:13 Intake & Output 03/12/22 03/13/22 03/13/22 18:59 06:59 18:59 Intake Total 1276.7 220 380 Output Total 20090 2670 Balance -733.3 -2330 -2290 Weight 136.2 kg Intake: IV 236.7 220 40 Cefepime 2 gm In Sodium 100 100 Chloride 0.9% 100 ml @ 25 mls/hr IVPB Q12H [facility] Rx# :[id number] Sodium Chloride 0.9% 1, 120 120 40 000 ml @ 10 mls/hr IV . Q24H [facility] Rx#:[id number] amiodarone 16.7 Intake, IV Titration 200 100 Amount Caffeine-Sodium Benzoate 100 500 mg In Sodium Chloride 0.9% 100 ml @ 1002 mls/ hr IVPB ONCE ONE Rx#: [id number] Sodium Ferric Gluconat- 100 100 Sucrose 125 mg In Sodium Chloride 0.9% 100 ml @ 100 mls/hr IVPB DAILY [facility] Rx#:[id number] Oral 840 240 Output: Drainage 60 20 Right hemovac 60 20 Urine 1950 2530 2670 Other: Voiding Method Indwelling Catheter Indwelling Catheter # Bowel Movements 1 1 ABP, PAP, CO, CI - Last Documented Arterial Blood Pressure 151/73 - Labs CBC & Chem 7: 03/13/22 03:00 03/13/22 03:00 Labs: Abnormal Lab Results - Last 24 Hours (Table) 03/12/22 03/12/22 03/13/22 Range/Units 16:41 20:22 03:00 RBC (3.80-5.40) m/uL Hgb (11.4-16.0) gm/dL Hct (34.0-46.0) % RDW (11.5-15.5) % Plt Count (150-450) k/uL Sodium 133 L (137-145) mmol/L Carbon Dioxide 32 H (22-30) mmol/L BUN 27 H (7-17) mg/dL Glucose 158 H (74-99) mg/dL POC Glucose (mg/dL) 256 H 244 H (70-110) mg/dL Calcium 7.1 L (8.4-10.2) mg/dL Total Bilirubin 1.6 H (0.2-1.3) mg/dL ALT 185 H (4-34) U/L Total Protein 4.6 L (6.3-8.2) g/dL Albumin 2.7 L (3.5-5.0) g/dL 03/13/22 03/13/22 03/13/22 Range/Units 03:00 05:51 11:41 RBC 3.09 L (3.80-5.40) m/uL Hgb 9.6 L (11.4-16.0) gm/dL Hct 27.9 L (34.0-46.0) % RDW 15.7 H (11.5-15.5) % Plt Count 81 L (150-450) k/uL Sodium (137-145) mmol/L Carbon Dioxide (22-30) mmol/L BUN (7-17) mg/dL Glucose (74-99) mg/dL POC Glucose (mg/dL) 190 H 283 H (70-110) mg/dL Calcium (8.4-10.2) mg/dL Total Bilirubin (0.2-1.3) mg/dL ALT (4-34) U/L Total Protein (6.3-8.2) g/dL Albumin (3.5-5.0) g/dL Microbiology - Last 24 Hours (Table) 03/07/22 16:28 Blood Culture - Preliminary Blood No Growth after 120 hours
[2022-03-13] MEDS: SPIRONOLACTONE 25 MG TAB PO SCH (14:15)
[2022-03-13 16:12] LABS: Glucose,Whole Blood 261 mg/dL (70-110)
--- NOTE | 2022-03-13 17:28 | P.PN ---
Subjective Progress Note Date: 03/13/22 03/13/2022, seeing the patient for a follow-up. This morning, the patient is awake and alert and she is on 2 L of oxygen by nasal cannula. She denies having any signs of any respiratory distress. She is recovering from a septic shock secondary to Enterobacter bacteremia and this is probably related to a urinary tract infection as the same bacteria was cultured in the urine and in the blood. The patient is currently covered with Rocephin, and buttocks and the patient is currently on IV cefepime. The patient has no fever. No chills. No altered mentation she is able to communicate effectively. She has a recent T10 to pelvis decompression with fusion. Pain is under adequate control for now. She had a second look 1 debridement on 03/09/2022. She does have irregular leak and the patient is a drain in place and output is in order of 600 mL overnight. Spine surgeries on the case. The one is to be changed today. She remains in sinus rhythm. She was having episodes of into fibrillation/flutter and she is currently on oral amiodarone and Lopressor. No anticoagulation was done due to concerns of blood loss and GI bleeds. Noted the patient had a acute blood loss anemia secondary to GI bleeding and the patient also had a traumatic right breast hematoma both of which contributed to drop in hemoglobin. The patient had a lowest hemoglobin of 5.4. The patient's most and hemoglobin currently is up to 9.6 and the currently stable. No anticonvulsants are being utilized for now. The patient is also on Decadron. She has developed a component of syringes hyperglycemia and the patient is currently on no long-acting sugar control and and was started the patient Levemir insulin in addition to a sliding scale coverage. She is having diarrhea. She has a fecal management system in [facility]. Stool for C. diff has been negative. No other significant events otherwise for now. Objective - Vital Signs Vital signs: Vital Signs Temp 97.7 F 03/13/22 08:00 Pulse 122 H 03/13/22 09:00 Resp 16 03/13/22 09:00 BP 168/92 03/13/22 08:00 Pulse Ox 98 03/13/22 09:00 FiO2 35 03/10/22 10:13 Intake & Output 03/12/22 03/13/22 03/13/22 18:59 06:59 18:59 Intake Total 1276.7 220 360 Output Total 20090 1620 Balance -733.3 -2330 -1260 Weight 136.2 kg Intake: IV 236.7 220 20 Cefepime 2 gm In Sodium 100 100 Chloride 0.9% 100 ml @ 25 mls/hr IVPB Q12H [facility] Rx# :[id number] Sodium Chloride 0.9% 1, 120 120 20 000 ml @ 10 mls/hr IV . Q24H [facility] Rx#:[id number] amiodarone 16.7 Intake, IV Titration 200 100 Amount Caffeine-Sodium Benzoate 100 500 mg In Sodium Chloride 0.9% 100 ml @ 1002 mls/ hr IVPB ONCE ONE Rx#: [id number] Sodium Ferric Gluconat- 100 100 Sucrose 125 mg In Sodium Chloride 0.9% 100 ml @ 100 mls/hr IVPB DAILY [facility] Rx#:[id number] Oral 840 240 Output: Drainage 60 20 Right hemovac 60 20 Urine 1950 2530 1620 Other: Voiding Method Indwelling Catheter Indwelling Catheter # Bowel Movements 1 1 ABP, PAP, CO, CI - Last Documented Arterial Blood Pressure 166/67 - Exam No acute distress, oriented 3. Currently on 2 L of oxygen. No respiratory distress, audible wheezing, or use of accessory muscles. Head exam was generally normal. There was no scleral icterus or corneal arcus. Mucous membranes were moist. HEENT examination is grossly unremarkable. Neck supple. Full range of motion. No adenopathy thyromegaly or neck vein distention. Cardiovascular examination reveals regular rhythm rate. S1-S2 normal. No S3 or S4. No discernible murmur noted. Heart sounds are distant. Lungs reveal clear breath sounds. Breath sounds are equal bilaterally. No adventitious lung sounds including wheezes rhonchi or crackles. Abdomen soft bowel sounds are heard. No masses or tenderness. Extremities are intact. Slight edema of the extremities. No cyanosis or clubbing. Skin is without rash or lesion. Large hematoma about the right breast. Neurologic examination is brief but nonfocal. The patient's strength is quite diminished in lower extremity bilaterally. Please refer to the spine surgeons evaluation regarding the motor function and reflexes. Cranial nerves are essentially intact and the patient is awake and alert. She is also oriented. - Labs CBC & Chem 7: 03/13/22 03:00 03/13/22 03:00 Labs: Abnormal Lab Results - Last 24 Hours (Table) 03/12/22 03/12/22 03/12/22 Range/Units 12:09 16:41 20:22 RBC (3.80-5.40) m/uL Hgb (11.4-16.0) gm/dL Hct (34.0-46.0) % RDW (11.5-15.5) % Plt Count (150-450) k/uL Sodium (137-145) mmol/L Carbon Dioxide (22-30) mmol/L BUN (7-17) mg/dL Glucose (74-99) mg/dL POC Glucose (mg/dL) 242 H 256 H 244 H (70-110) mg/dL Calcium (8.4-10.2) mg/dL Total Bilirubin (0.2-1.3) mg/dL ALT (4-34) U/L Total Protein (6.3-8.2) g/dL Albumin (3.5-5.0) g/dL 03/13/22 03/13/22 03/13/22 Range/Units 03:00 03:00 05:51 RBC 3.09 L (3.80-5.40) m/uL Hgb 9.6 L (11.4-16.0) gm/dL Hct 27.9 L (34.0-46.0) % RDW 15.7 H (11.5-15.5) % Plt Count 81 L (150-450) k/uL Sodium 133 L (137-145) mmol/L Carbon Dioxide 32 H (22-30) mmol/L BUN 27 H (7-17) mg/dL Glucose 158 H (74-99) mg/dL POC Glucose (mg/dL) 190 H (70-110) mg/dL Calcium 7.1 L (8.4-10.2) mg/dL Total Bilirubin 1.6 H (0.2-1.3) mg/dL ALT 185 H (4-34) U/L Total Protein 4.6 L (6.3-8.2) g/dL Albumin 2.7 L (3.5-5.0) g/dL Microbiology - Last 24 Hours (Table) 03/07/22 16:28 Blood Culture - Preliminary Blood No Growth after 120 hours Assessment and Plan Plan: Acute sepsis with hypotension secondary to bacteremia/urinary tract infection with Enterobacter. The patient is currently on IV cefepime. Hemodynamically stable. The patient is afebrile. Bacteremia secondary to Enterobacter cloacae. This is likely a urinary source altered mental status , recovered Atrial flutter fibrillation/flutter with a rapid ventricular response requiring amiodarone. She iss sinus tchycardia and she is on Po aniodarone and Lopressor, no anticoagulants due to GIB Lactic acidosis, improved Acute renal failure, improved and the creatinine is normalized Hyperkalemia, improved. Hyponatremia, recovered. Leukocytosis, improved. GIB and the patient and an EDG (gastritis and esophagitis) , inactive an stable Acute anemia with a hemoglobin dropped to 5.4. The patient had developed a large right sided chest wall/breast hematoma suspect secondary to fall on 03/06/2022. Hb is stable at 9.6 Lumbar decompression/fusion postoperative day #17. On 03/09/2022 she did require exploration and washout with dural repairs due to falls. Hemo-vac placed. Postoperative day #4 Dural tear/leak and the patinet has a drain Cardiac arrest, brief pulseless electrical activity encountered in the operating room. Acute hypoxic/hypercapnic respiratory failure secondary to cardiac arrest/PEA. Morbid obesity, BMI of 49.0. History of right hemidiaphragm paralysis. History of right-sided breast cancer, previous lumpectomy. Chronic atrial fibrillation/flutter. Dyslipidemia. Benign essential hypertension. diabetes mellitus, maintained on Decadron and the patient is a component of steroid-induced hyperglycemia, and currently the patient is on Levemir insulin at 10 units in addition to a sliding scale coverage. CHF with an ejection fraction of 35-40% Fluid overload with increased lower extremity edema currently on a combination of Lasix 40 mg IV every 12 hours in addition to Diamox Diarrhea, currently has a fecal management system in place and the patient has negative stool for C. diff. Plan Keep the patient in intensive care unit Continue using the senna spirometer Keep the patient flat in bed per surgical recommendation and the patient will be turned every 2 hours. It'll be allowed for the patient to have that underwent elevated at 30. We'll attempt upon the patient today as long as she is able to tolerate. Keep the drain to gravity continue IV cefepime for now Plan control with Tylenol Acetazolamide for the dural leak Monitor the hemoglobin Surgical one-sided Watch for signs of GI bleeding No anticoagulants for now Continue amiodarone and metoprolol for rate control Continue IV iron treatment Continue IV Lasix 40 mg Continue Aldactone We'll continue to follow and keep the patient intensive care unit for now. Critical care evaluation that was done in more than 30 minutes Time with Patient: Greater than 30
[2022-03-13 20:14] LABS: Glucose,Whole Blood 213 mg/dL (70-110)
[2022-03-13 22:54] LABS: Glucose,Whole Blood 172 mg/dL (70-110)
[2022-03-14] MEDS: ACETAMINOPHEN TAB 500 MG TAB PO SCH ×4 (00:49→17:00)
[2022-03-14] MEDS: HYDROmorphone 1 MG/ML 1 ML SYRINGE IVP PRN ×5 (00:50→11:35)
[2022-03-14] MEDS: DEXAMETHASONE SOD PHOSPHATE 4 MG/ML 1 ML VIAL IVP SCH ×3 (00:50→16:49)
[2022-03-14] MEDS: CEFEPIME 2 GM in SODIUM CHLORIDE 0.9% 100 ML IVPB SCH ×2 (01:28→14:08)
[2022-03-14] MEDS: SODIUM CHLORIDE 0.9% 1,000 ML IV SCH (03:58)
[2022-03-14 05:37] LABS: Anisocytosis Slight; Basophils % (A) 0 %; Eosinophils % (A) 0 %; HCT 29.7 % (34.0-46.0); HGB 10.1 gm/dL (11.4-16.0); Hypochromasia Slight; Lymphocytes # (A) 0.5 k/uL (1.0-4.8); Lymphocytes % (A) 5 %; MCH 30.8 pg (25.0-35.0); MCHC 34.1 g/dL (31.0-37.0); MCV 90.4 fL (80.0-100.0); Mean Platelet Volume 9.4; Monocytes # (A) 0.4 k/uL (0-1.0); Monocytes % (A) 4 %; Neutrophils # (A) 9.2 k/uL (1.3-7.7); Neutrophils % (A) 90 %; Platelet Count 100 k/uL (150-450); Poikilocytosis Slight; RBC 3.28 m/uL (3.80-5.40); RDW 16.4 % (11.5-15.5); WBC 10.2 k/uL (3.8-10.6)
[2022-03-14 05:49] LABS: African American GFR (CKD) >90 (>60 ml/min/1.73 sqM); Anion Gap 3 mmol/L; Blood Urea Nitrogen 26 mg/dL (7-17); Calcium 7.4 mg/dL (8.4-10.2); Carbon Dioxide 31 mmol/L (22-30); Chloride 100 mmol/L (98-107); Glucose 159 mg/dL (74-99); Non-African American GFR(CKD) 89 (>60 ml/min/1.73 sqM); Potassium 4.1 mmol/L (3.5-5.1); Sodium 134 mmol/L (137-145)
[2022-03-14 06:21] LABS: Glucose,Whole Blood 178 mg/dL (70-110)
[2022-03-14] MEDS: LEVOTHYROXINE 88 MCG TAB PO SCH (06:25)
[2022-03-14] MEDS: INSULIN DETEMIR (LEVEMIR) 100 UNIT/ML SYR SQ SCH (06:25)
[2022-03-14] MEDS: INSULIN ASPART (NovoLOG) 100 UNIT/ML VIAL SQ SCH ×4 (06:30→21:03)
[2022-03-14] MEDS ORDERED: CAFFEINE-SODIUM BENZOATE 500 MG in SODIUM CHLORIDE 0.9% 100 ML IVPB ONE (07:30)
--- NOTE | 2022-03-14 08:02 | P.PN ---
Subjective Progress Note Date: 03/14/22 PROGRESS NOTE The patient is a 71-year-old female who underwent lumbar surgery on February 24 for severe stenosis, mechanical low back pain and neurogenic claudication. She has a known history of atrial flutter, atrial fibrillation. She continues to be in atrial flutter at this time with 2 to one conduction. She had an echocardiogram on February 27 that showed an ejection fraction of 35-40% with moderate mitral regurgitation. In 2018 her LV systolic function was normal. It is unclear if this deterioration is an acute event following her surgery. She feels better overall, has musculoskeletal right-sided discomfort. She is not anticoagulated because of recent bleeding. She denies any nausea or vomiting. Her blood pressure is under good control. She had positive urine culture. March 14: The patient is feeling slightly better today, she denies any chest discomfort or dizziness. She continues to be in atrial flutter with 2 to one conduction. She had episodes of her lower heart rate. She is tolerating her present medical regimen. She has no evidence of ventricular tachycardia. She continues to be in bed, she is allowed to lift her head 30 today. She has no nausea or vomiti ng. She has no dizziness or palpitations. Her right-sided chest discomfort has improved. Her anticoagulation remains on hold because of her anemia and hematoma. Medications: Amiodarone 400 mg twice a day, Lipitor 10 mg daily, Lasix 40 mg IV every 12 hours, metoprolol 50 mg twice a day, Protonix. Lisinopril 5 mg daily, Aldactone 25 mg daily PHYSICAL EXAMINATION: Blood pressure 132/80, heart rate 120, afebrile LUNGS: Clear to auscultation HEART: Regular rate and rhythm, , tachycardic S1, S2. No S3. No systolic murmur ABDOMEN: Soft, nontender, no organomegaly, obese EXTREMETIES: +1-2 edema LAB: BUN 26, creatinine 0.63, potassium 4.1. Hemoglobin 10.1. IMPRESSION: 1. Status post back surgery 2. Atrial flutter with rapid ventricular response, not anticoagulated because of recent bleeding 3. Anemia 4. Cardiomyopathy of unknown etiology 5. Bacteremia 6. Acute renal injury resolved 7. Morbid obesity 8. Hyperlipidemia 9. Hypertension PLAN: 1. Increase beta nic to 50 mg 3 times a day 2. Continue VEGA inhibitor 3. Continue to hold anticoagulation for now, awaiting the surgical input regarding resuming anticoagulation because of her atrial flutter 4. Activity per surgical team 5. Depending on her progress further recommendations will be made Objective - Vital Signs Vital signs: Vital Signs Temp 97.4 F L 03/14/22 04:00 Pulse 123 H 03/14/22 07:00 Resp 15 03/14/22 07:00 BP 132/84 03/14/22 07:00 Pulse Ox 98 03/14/22 07:00 FiO2 35 03/10/22 10:13 Intake & Output 03/13/22 03/14/22 03/14/22 18:59 06:59 18:59 Intake Total 1160 110 10 Output Total 4095 2375 110 Balance -0784 -9236 -100 Weight 131.7 kg Intake: IV 220 110 10 Cefepime 2 gm In Sodium 100 Chloride 0.9% 100 ml @ 25 mls/hr IVPB Q12H [facility] Rx# :[id number] Sodium Chloride 0.9% 1, 120 110 10 000 ml @ 10 mls/hr IV . Q24H [facility] Rx#:[id number] Intake, IV Titration 100 Amount Sodium Ferric Gluconat- 100 Sucrose 125 mg In Sodium Chloride 0.9% 100 ml @ 100 mls/hr IVPB DAILY [facility] Rx#:[id number] Oral 840 Output: Drainage 50 60 Right hemovac 50 60 Urine 4045 2375 50 Other: Voiding Method Indwelling Catheter Indwelling Catheter ABP, PAP, CO, CI - Last Documented Arterial Blood Pressure 153/71 - Labs CBC & Chem 7: 03/14/22 05:04 03/14/22 05:04 Labs: Abnormal Lab Results - Last 24 Hours (Table) 03/13/22 03/13/22 03/13/22 Range/Units 11:41 16:10 20:09 RBC (3.80-5.40) m/uL Hgb (11.4-16.0) gm/dL Hct (34.0-46.0) % RDW (11.5-15.5) % Plt Count (150-450) k/uL Neutrophils # (1.3-7.7) k/uL Lymphocytes # (1.0-4.8) k/uL Sodium (137-145) mmol/L Carbon Dioxide (22-30) mmol/L BUN (7-17) mg/dL Glucose (74-99) mg/dL POC Glucose (mg/dL) 283 H 261 H 213 H (70-110) mg/dL Calcium (8.4-10.2) mg/dL 03/13/22 03/14/22 03/14/22 Range/Units 22:53 05:04 05:04 RBC 3.28 L (3.80-5.40) m/uL Hgb 10.1 L (11.4-16.0) gm/dL Hct 29.7 L (34.0-46.0) % RDW 16.4 H (11.5-15.5) % Plt Count 100 L (150-450) k/uL Neutrophils # 9.2 H (1.3-7.7) k/uL Lymphocytes # 0.5 L (1.0-4.8) k/uL Sodium 134 L (137-145) mmol/L Carbon Dioxide 31 H (22-30) mmol/L BUN 26 H (7-17) mg/dL Glucose 159 H (74-99) mg/dL POC Glucose (mg/dL) 172 H (70-110) mg/dL Calcium 7.4 L (8.4-10.2) mg/dL 03/14/22 Range/Units 06:19 RBC (3.80-5.40) m/uL Hgb (11.4-16.0) gm/dL Hct (34.0-46.0) % RDW (11.5-15.5) % Plt Count (150-450) k/uL Neutrophils # (1.3-7.7) k/uL Lymphocytes # (1.0-4.8) k/uL Sodium (137-145) mmol/L Carbon Dioxide (22-30) mmol/L BUN (7-17) mg/dL Glucose (74-99) mg/dL POC Glucose (mg/dL) 178 H (70-110) mg/dL Calcium (8.4-10.2) mg/dL Microbiology - Last 24 Hours (Table) 03/07/22 16:28 Blood Culture - Final Blood No Growth after 144 hours
[2022-03-14] MEDS: PANTOPRAZOLE 40 MG/10 ML VIAL IVP SCH (08:11)
[2022-03-14] MEDS: SPIRONOLACTONE 25 MG TAB PO SCH (08:12)
[2022-03-14] MEDS: acetaZOLAMIDE 250 MG TAB PO SCH (08:12)
[2022-03-14] MEDS: GABAPENTIN 400 MG CAP PO SCH ×3 (08:12→21:04)
[2022-03-14] MEDS: DULoxetine HCL 60 MG CAPSULE.DR PO SCH (08:12)
[2022-03-14] MEDS: AMIODARONE 200 MG TAB PO SCH ×2 (08:12→21:03)
[2022-03-14] MEDS: ATORVASTATIN 10 MG TAB PO SCH (08:12)
[2022-03-14] MEDS: lisinopriL 5 MG TAB PO SCH (08:12)
[2022-03-14] MEDS: FUROSEMIDE 10 MG/ML 4 ML VIAL IV SCH ×2 (08:12→21:03)
[2022-03-14] MEDS: diazePAM 2 MG TAB PO PRN (08:12)
[2022-03-14] MEDS: NOREPINEPHRINE 32 MG in SODIUM CHLORIDE 0.9% 218 ML IV SCH (08:14)
[2022-03-14] MEDS: METOPROLOL TARTRATE 50 MG TAB PO SCH ×3 (08:33→21:04)
[2022-03-14] MEDS: SODIUM FERRIC GLUCONAT-SUCROSE 125 MG in SODIUM CHLORIDE 0.9% 100 ML IVPB SCH (08:33)
[2022-03-14 11:55] LABS: Glucose,Whole Blood 288 mg/dL (70-110)
[2022-03-14] MEDS ORDERED: HYDROmorphone 1 MG/ML 1 ML SYRINGE IVP PRN (12:26)
--- NOTE | 2022-03-14 12:35 | P.PN ---
Subjective Progress Note Date: 03/14/22 Patient was seen this morning. She is on no drips. She does have a rectal tube. She's continued to have diarrhea. I discussed the case with the ICU nurse. No acute issues overnight. Patient denying any shortness of breath or chest pain. Objective - Vital Signs Vital signs: Vital Signs Temp 97.3 F L 03/14/22 08:00 Pulse 121 H 03/14/22 10:00 Resp 18 03/14/22 10:00 BP 138/76 03/14/22 10:00 Pulse Ox 97 03/14/22 10:00 FiO2 35 03/10/22 10:13 Intake & Output 03/13/22 03/14/22 03/14/22 18:59 06:59 18:59 Intake Total 1160 110 260 Output Total 4095 2375 5285 Balance -6910 -6637 -9848 Weight 131.7 kg Intake: IV 220 110 260 Caffeine-Sodium Benzoate 100 500 mg In Sodium Chloride 0.9% 100 ml @ 1002 mls/ hr IVPB ONCE ONE Rx#: [id number] Cefepime 2 gm In Sodium 100 Chloride 0.9% 100 ml @ 25 mls/hr IVPB Q12H [facility] Rx# :[id number] Sodium Chloride 0.9% 1, 120 110 60 000 ml @ 10 mls/hr IV . Q24H [facility] Rx#:[id number] Sodium Ferric Gluconat- 100 Sucrose 125 mg In Sodium Chloride 0.9% 100 ml @ 100 mls/hr IVPB DAILY [facility] Rx#:[id number] Intake, IV Titration 100 Amount Sodium Ferric Gluconat- 100 Sucrose 125 mg In Sodium Chloride 0.9% 100 ml @ 100 mls/hr IVPB DAILY [facility] Rx#:[id number] Oral 840 Output: Drainage 50 60 Right hemovac 50 60 Urine 4045 2375 2625 Other: Voiding Method Indwelling Catheter Indwelling Catheter Indwelling Catheter ABP, PAP, CO, CI - Last Documented Arterial Blood Pressure 160/65 - Exam General examination - Alert and Oriented 3 in NAD, appears chronically debilitated Heart - + S1S2 no murmurs Lungs - diminished breath sounds bilaterally Abdomen soft NT ND +ve BS Extremities - +1 pitting edema bilaterally INSURANCE ADVISOR - Moving all 4 extremities spontaneously Psych - Calm and cooperative - Labs CBC & Chem 7: 03/14/22 05:04 03/14/22 05:04 Labs: Abnormal Lab Results - Last 24 Hours (Table) 03/13/22 03/13/22 03/13/22 Range/Units 16:10 20:09 22:53 RBC (3.80-5.40) m/uL Hgb (11.4-16.0) gm/dL Hct (34.0-46.0) % RDW (11.5-15.5) % Plt Count (150-450) k/uL Neutrophils # (1.3-7.7) k/uL Lymphocytes # (1.0-4.8) k/uL Sodium (137-145) mmol/L Carbon Dioxide (22-30) mmol/L BUN (7-17) mg/dL Glucose (74-99) mg/dL POC Glucose (mg/dL) 261 H 213 H 172 H (70-110) mg/dL Calcium (8.4-10.2) mg/dL 03/14/22 03/14/22 03/14/22 Range/Units 05:04 05:04 06:19 RBC 3.28 L (3.80-5.40) m/uL Hgb 10.1 L (11.4-16.0) gm/dL Hct 29.7 L (34.0-46.0) % RDW 16.4 H (11.5-15.5) % Plt Count 100 L (150-450) k/uL Neutrophils # 9.2 H (1.3-7.7) k/uL Lymphocytes # 0.5 L (1.0-4.8) k/uL Sodium 134 L (137-145) mmol/L Carbon Dioxide 31 H (22-30) mmol/L BUN 26 H (7-17) mg/dL Glucose 159 H (74-99) mg/dL POC Glucose (mg/dL) 178 H (70-110) mg/dL Calcium 7.4 L (8.4-10.2) mg/dL 03/14/22 Range/Units 11:53 RBC (3.80-5.40) m/uL Hgb (11.4-16.0) gm/dL Hct (34.0-46.0) % RDW (11.5-15.5) % Plt Count (150-450) k/uL Neutrophils # (1.3-7.7) k/uL Lymphocytes # (1.0-4.8) k/uL Sodium (137-145) mmol/L Carbon Dioxide (22-30) mmol/L BUN (7-17) mg/dL Glucose (74-99) mg/dL POC Glucose (mg/dL) 288 H (70-110) mg/dL Calcium (8.4-10.2) mg/dL Microbiology - Last 24 Hours (Table) 03/07/22 16:28 Blood Culture - Final Blood No Growth after 144 hours Assessment and Plan Assessment: #Septic shock on admission #Enterobacter cloacae bacteremia with likly source UTI #Enterobacter cloacae UTI #Lactic acidosis Currently off mechanical ventilation and pressors. Continue Cefepime as per per infectious disease. C.difficile negative. Telemetry monitoring. Pulmonology/ICU on board. #Acute blood loss anemia likely sec to GI bleeding from ischemic colitis #Right breast hematoma secondary to CPR from cardiac arrest She is status post total of 7 units of PRBC transfusion. EGD showed mild gastritis and mild esophagitis with no active bleeding Surgery recommends to continue to hold anticoagulation Continue with PPI CT surgery recommends conservative management of hematoma. She is iron deficient, resume IV Ferrlecit #Abdominal pain #IIeus versus SBO Gen. surgery advancing diet Patient having diarrhea #Acute kidney injury #Hyponatremia Resolved Renal US shows no hydronephrosis on the R, enlarged cyst in the L kidney measuring up to 8.3 cm. BETHANY likely due to ATN from septic shock and hypoNa from poor oral intake. Nephrology on board. #Transaminitis Improved Likely ischemic hepatitis secondary to shock liver. Improved #Atrial fibrillation #Atrial flutter with RVR Anticoagulation discontinued due to blood loss. Patient currently on metoprolol 50 mg 3 times a day Patient also on amiodarone Patient is still tachycardic in the 100s #Acute on chronic systolic CHF chronic Echo shows EF 35-40% with severe pulmonary HTN, moderate MR. Patient will need ischemic workup. Patient started on ACEi and Aldactone Continue IV Lasix as per audiology Cardiology on board. #T10 to pelvis decompression with fusion #Post-op pain #Status post second look wound debridement on 03/09 Management per Orthopedic surgery. Gabapentin, Decadron. Continue with oxycodone PRN. Patient has no stairs and planning on going home, she has nearby help from family but lives alone. PT and OT consulted. PMR consulted. #Aborted sudden cardiac Cardiology on board. Echocardiogram shows EF 35-40% with moderate MR. #Hyperglycemia likely sec to steroids No official DM diagnosis Levemir 20 units daily. A1c is 6, likely prediabetic, will benefit from metformin upon discharge. #Right diaphragmatic paralysis Aggressive pulmonary hygiene. Pulmonology on board. #HLD Statin. #HTN Resume lisinopril DVT prophylaxis: Holding anticoagulation until cleared by orthopedic surgery
--- NOTE | 2022-03-14 12:45 | P.PN ---
Subjective Progress Note Date: 03/14/22 CHIEF COMPLAINT: Spinal surgery HISTORY OF PRESENT ILLNESS: Patient is in the ICU. She complains of back pain that is controlled. She denies any abdominal pain. Patient has a fecal management system in place. Stools are brown in color. No blood noted. She is tolerating full liquid diet. Denies any nausea vomiting. Afebrile. Tachycardic WBC 10.2 Hgb 9.6 up to 10.1 platelets 100 sodium is 134 potassium is 4.1 creatinine 0.63 PHYSICAL EXAM: VITAL SIGNS: Reviewed. GENERAL: Well-developed in no acute distress. HEENT: No sclera icterus. Extraocular movements grossly intact. Moist buccal mucosa. Head is atraumatic, normocephalic. CHEST: Hematoma on right side of chest wall is decreasing in size. Her right breast swelling and hematoma is softer. ABDOMEN: Soft. Obese. Nondistended. Nontender. NEUROLOGIC: Alert and oriented. Cranial nerves II through XII grossly intact. ASSESSMENT: 1. Right-sided abdominal pain with bloody stool with hypotension, elevated lactic acid level and elevated WBC. Concerns for possible ischemic colitis. Now improved 2. Right chest wall and breast hematoma likely due to CPR from cardiac arrest 3. Gastric distention and mild proximal small bowel dilation 4. Acute GI bleed with acute blood loss anemia patient had been on blood thinners 5. Sepsis 6. Lumbar decompression/fusion and status post washout 7. EGD showing mild gastritis, mild esophagitis and no active bleeding PLAN: -Agree with advancing diet to regular -Continue supportive care -Continue to monitor hemoglobin -Continue monitor for any signs or symptoms of bleeding -Continue to keep anticoagulation on hold -Continue PPI Physician Transportation Engineering Technician note has been reviewed by physician. Signing provider agrees with the documented findings, assessment, and plan of care. I have personally seen and examined the patient, reviewed the RADIATION THERAPIST /PAs history, exam and MDM and agree with the assessment and plan as written. Based on total visit time, I have performed more than 50% of the visit. As above: Patient seems to be doing better. Labs improved. Stools are nonbloody. She is tolerating diet. Will increase diet for now. Objective - Vital Signs Vital signs: Vital Signs Temp 97.3 F L 03/14/22 08:00 Pulse 121 H 03/14/22 10:00 Resp 18 03/14/22 10:00 BP 138/76 03/14/22 10:00 Pulse Ox 97 03/14/22 10:00 FiO2 35 03/10/22 10:13 Intake & Output 03/13/22 03/14/22 03/14/22 18:59 06:59 18:59 Intake Total 1160 110 260 Output Total 4099 2374 5303 Balance -2387 -2928 -0742 Weight 131.7 kg Intake: IV 220 110 260 Caffeine-Sodium Benzoate 100 500 mg In Sodium Chloride 0.9% 100 ml @ 1002 mls/ hr IVPB ONCE ONE Rx#: [id number] Cefepime 2 gm In Sodium 100 Chloride 0.9% 100 ml @ 25 mls/hr IVPB Q12H [facility] Rx# :[id number] Sodium Chloride 0.9% 1, 120 110 60 000 ml @ 10 mls/hr IV . Q24H [facility] Rx#:[id number] Sodium Ferric Gluconat- 100 Sucrose 125 mg In Sodium Chloride 0.9% 100 ml @ 100 mls/hr IVPB DAILY [facility] Rx#:[id number] Intake, IV Titration 100 Amount Sodium Ferric Gluconat- 100 Sucrose 125 mg In Sodium Chloride 0.9% 100 ml @ 100 mls/hr IVPB DAILY [facility] Rx#:[id number] Oral 840 Output: Drainage 50 60 Right hemovac 50 60 Urine 4042 5529 2625 Other: Voiding Method Indwelling Catheter Indwelling Catheter Indwelling Catheter ABP, PAP, CO, CI - Last Documented Arterial Blood Pressure 160/65 - Labs CBC & Chem 7: 03/14/22 05:04 03/14/22 05:04 Labs: Abnormal Lab Results - Last 24 Hours (Table) 03/13/22 03/13/22 03/13/22 Range/Units 16:10 20:09 22:53 RBC (3.80-5.40) m/uL Hgb (11.4-16.0) gm/dL Hct (34.0-46.0) % RDW (11.5-15.5) % Plt Count (150-450) k/uL Neutrophils # (1.3-7.7) k/uL Lymphocytes # (1.0-4.8) k/uL Sodium (137-145) mmol/L Carbon Dioxide (22-30) mmol/L BUN (7-17) mg/dL Glucose (74-99) mg/dL POC Glucose (mg/dL) 261 H 213 H 172 H (70-110) mg/dL Calcium (8.4-10.2) mg/dL 03/14/22 03/14/22 03/14/22 Range/Units 05:04 05:04 06:19 RBC 3.28 L (3.80-5.40) m/uL Hgb 10.1 L (11.4-16.0) gm/dL Hct 29.7 L (34.0-46.0) % RDW 16.4 H (11.5-15.5) % Plt Count 100 L (150-450) k/uL Neutrophils # 9.2 H (1.3-7.7) k/uL Lymphocytes # 0.5 L (1.0-4.8) k/uL Sodium 134 L (137-145) mmol/L Carbon Dioxide 31 H (22-30) mmol/L BUN 26 H (7-17) mg/dL Glucose 159 H (74-99) mg/dL POC Glucose (mg/dL) 178 H (70-110) mg/dL Calcium 7.4 L (8.4-10.2) mg/dL 03/14/22 Range/Units 11:53 RBC (3.80-5.40) m/uL Hgb (11.4-16.0) gm/dL Hct (34.0-46.0) % RDW (11.5-15.5) % Plt Count (150-450) k/uL Neutrophils # (1.3-7.7) k/uL Lymphocytes # (1.0-4.8) k/uL Sodium (137-145) mmol/L Carbon Dioxide (22-30) mmol/L BUN (7-17) mg/dL Glucose (74-99) mg/dL POC Glucose (mg/dL) 288 H (70-110) mg/dL Calcium (8.4-10.2) mg/dL Microbiology - Last 24 Hours (Table) 03/07/22 16:28 Blood Culture - Final Blood No Growth after 144 hours
--- NOTE | 2022-03-14 12:46 | P.PN ---
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 She is doing OK she has been moving her legs and arms in bed and trying to sit up more. She has pain in her back that is controlled. She has had some LOZANO last night when she sat up and so she was laid flat again. The drain is in place and has clear serous drainage of about 60CC overnight. NO f/c/sob/cp at this time. Objective - Vital Signs Vital signs: Vital Signs Temp 97.3 F L 03/14/22 08:00 Pulse 121 H 03/14/22 10:00 Resp 18 03/14/22 10:00 BP 138/76 03/14/22 10:00 Pulse Ox 97 03/14/22 10:00 FiO2 35 03/10/22 10:13 Intake & Output 03/13/22 03/14/22 03/14/22 18:59 06:59 18:59 Intake Total 1160 110 260 Output Total 4095 2375 2685 Balance -2935 -2261 -2427 Weight 131.7 kg Intake: IV 220 110 260 Caffeine-Sodium Benzoate 100 500 mg In Sodium Chloride 0.9% 100 ml @ 1002 mls/ hr IVPB ONCE ONE Rx#: [id number] Cefepime 2 gm In Sodium 100 Chloride 0.9% 100 ml @ 25 mls/hr IVPB Q12H MEHUL Rx# :[id number] Sodium Chloride 0.9% 1, 120 110 60 000 ml @ 10 mls/hr IV . Q24H ME[facility]UL Rx#:[id number] Sodium Ferric Gluconat- 100 Sucrose 125 mg In Sodium Chloride 0.9% 100 ml @ 100 mls/hr IVPB DAILY MEHUL Rx#:[id number] Intake, IV Titration 100 Amount Sodium Ferric Gluconat- 100 Sucrose 125 mg In Sodium Chloride 0.9% 100 ml @ 100 mls/hr IVPB DAILY MEHUL Rx#:[id number] Oral 840 Output: Drainage 50 60 Right hemovac 50 60 Urine 4045 2375 2625 Other: Voiding Method Indwelling Catheter Indwelling Catheter Indwelling Catheter ABP, PAP, CO, CI - Last Documented Arterial Blood Pressure 160/65 - Exam exam today shows dressing is CDI she has FBS in and this is keeping her dressing clean. No evidence of drainage or wet dressing. Drain is in place with serous clear fluid out around 60cc iovernight. The remainder of the exam is as stated below PHYSICAL EXAMINATION: Vitals: BP 168/88 Art line is not reading well. Cuff pressures in 140s systolic, heart rate 117 and currently Aflutter, SpO2 98% on room air, temperature normal General: Awake, alert, appropriate for age, in no acute distress. HEENT: No changes Extremities: Skin warm and dry without no acute lesions, coloration, temperat ure, skin intact, no tenderness or erythema. Integument: Surgical incisions: Dressings CDI . Palpation: Special findings: pain with palpation of the right breast area with large hematoma notedas well as anterior chest wall. VASCULAR STATUS : Wrist Pulses: [2/4 bilateral radial and ulnar] Pedal Pulses: [2/4 bilateral DP and PT] Color: [Normal] Edema: Improved in arms and hands. Nursing states 3-4L off last night with her lasix and other meds. NEUROLOGIC EXAMINATION: Mental Status: Awake and alert, oriented,but slow with normal attention, concentration and memory, and fluent, he has slow speech Cranial Nerves: I: Olfactory not tested. II: Visual acuity normal, no visual field deficit noted with confrontation. III,IV: Normal pupillary reflexes & intact extraocular movements without nystagmus. V,: Intact symmetrical facial sensation. VII: Intact symmetrical facial motor movement VIII: Hearing intact. IX,X: Intact gag, swallow, & normal voice. XI: Sternocleidomastoid, trapezius function intact. XII: Tongue midline with normal movements. Special Tests: L'hermitte's Sign: Absent Straight Leg Raising: Absent Bilateral Motor Exam (0-5/5, N/T) STRENGTH 4+ out of 5 strength in upper extremity's bilaterally all major muscle groups without focal deficits generalized weakness 4- to 5 strength bilateral lower extremities all major muscle groups with generalized weakness no focal deficits. She is weak in her hip flexors currently. REFLEXES Upper Extremity: RIGHT [2]/4 LEFT [2]/4 Lower Extremity: RIGHT [2]/4 LEFT [2]/4 Pathological Reflexes Warren's: RIGHT [Absent] LEFT [Absent] Babinski: RIGHT [Absent] LEFT [Absent] Clonus: RIGHT [None] LEFT [None] SENSORY Intact Gait and Functional Evaluation: Ambulatory aids: max assist with walker - Constitutional General appearance: Present: morbidly obese - Labs CBC & Chem 7: 03/14/22 05:04 03/14/22 05:04 Labs: Abnormal Lab Results - Last 24 Hours (Table) 03/13/22 03/13/22 03/13/22 Range/Units 16:10 20:09 22:53 RBC (3.80-5.40) m/uL Hgb (11.4-16.0) gm/dL Hct (34.0-46.0) % RDW (11.5-15.5) % Plt Count (150-450) k/uL Neutrophils # (1.3-7.7) k/uL Lymphocytes # (1.0-4.8) k/uL Sodium (137-145) mmol/L Carbon Dioxide (22-30) mmol/L BUN (7-17) mg/dL Glucose (74-99) mg/dL POC Glucose (mg/dL) 261 H 213 H 172 H (70-110) mg/dL Calcium (8.4-10.2) mg/dL 03/14/22 03/14/22 03/14/22 Range/Units 05:04 05:04 06:19 RBC 3.28 L (3.80-5.40) m/uL Hgb 10.1 L (11.4-16.0) gm/dL Hct 29.7 L (34.0-46.0) % RDW 16.4 H (11.5-15.5) % Plt Count 100 L (150-450) k/uL Neutrophils # 9.2 H (1.3-7.7) k/uL Lymphocytes # 0.5 L (1.0-4.8) k/uL Sodium 134 L (137-145) mmol/L Carbon Dioxide 31 H (22-30) mmol/L BUN 26 H (7-17) mg/dL Glucose 159 H (74-99) mg/dL POC Glucose (mg/dL) 178 H (70-110) mg/dL Calcium 7.4 L (8.4-10.2) mg/dL 03/14/22 Range/Units 11:53 RBC (3.80-5.40) m/uL Hgb (11.4-16.0) gm/dL Hct (34.0-46.0) % RDW (11.5-15.5) % Plt Count (150-450) k/uL Neutrophils # (1.3-7.7) k/uL Lymphocytes # (1.0-4.8) k/uL Sodium (137-145) mmol/L Carbon Dioxide (22-30) mmol/L BUN (7-17) mg/dL Glucose (74-99) mg/dL POC Glucose (mg/dL) 288 H (70-110) mg/dL Calcium (8.4-10.2) mg/dL Microbiology - Last 24 Hours (Table) 03/07/22 16:28 Blood Culture - Final Blood No Growth after 144 hours Assessment and Plan Assessment: 1. 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 Status post 7 units PRBC and 1 pack platelets -bilateral lower extremity weakness, status post multiple controlled falls in- house -Enterobacter sepsis, UTI - status post cardiac arrest Plan: -Appreciate client relationship consultant and team management PCC and medicine -appreciate cardiothoracic, Gen. surgery, nephrology, ID evaluations -continue Activity: Lay flat, Bed rest. Turn q2. HOB 30 deg OK continue in bed therapy with ankle pumps to motions but squeezes quad thrusts and are motions. -Daily proning 5-10 min work up to 10 -Drain to gravity only -Cont Abx for duration of stay -Add caffiene daily 200 mg daily -Pain control: Adequate today ( Tylenol 1000 mg MEHUL, Oxy IR q4 hrs 10-15 mg titrated to pain (pt been on [place] for 20 yrs), Cont Gabapentin,) -Acetazolamide daily -Meds: reviewed -Trend labs -transfusions to vitals -GI ppx: senna, Miralax -continue Warren changed per protocol -Cont with FBS -DVT PPX: Mechanical only -Hygiene: Maintain dressing clean and dry. Meticulous cleaning after BMs away from incision site patient has had several instances on the floor where she was covered and bowel movement as well as urine up to her shoulders on her back. The wound needs to be kept meticulously clean. -Encourage IS 10x/hr -Will follow
--- NOTE | 2022-03-14 13:43 | P.PN ---
Subjective Progress Note Date: 03/14/22 03/13/2022, seeing the patient for a follow-up. This morning, the patient is awake and alert and she is on 2 L of oxygen by nasal cannula. She denies having any signs of any respiratory distress. She is recovering from a septic shock secondary to Enterobacter bacteremia and this is probably related to a urinary tract infection as the same bacteria was cultured in the urine and in the blood. The patient is currently covered with Rocephin, and buttocks and the patient is currently on IV cefepime. The patient has no fever. No chills. No altered mentation she is able to communicate effectively. She has a recent T10 to pelvis decompression with fusion. Pain is under adequate control for now. She had a second look 1 debridement on 03/09/2022. She does have irregular leak and the patient is a drain in place and output is in order of 600 mL overnight. Spine surgeries on the case. The one is to be changed today. She remains in sinus rhythm. She was having episodes of into fibrillation/flutter and she is currently on oral amiodarone and Lopressor. No anticoagulation was done due to concerns of blood loss and GI bleeds. Noted the patient had a acute blood loss anemia secondary to GI bleeding and the patient also had a traumatic right breast hematoma both of which contributed to drop in hemoglobin. The patient had a lowest hemoglobin of 5.4. The patient's most and hemoglobin currently is up to 9.6 and the currently stable. No anticonvulsants are being utilized for now. The patient is also on Decadron. She has developed a component of syringes hyperglycemia and the patient is currently on no long-acting sugar control and and was started the patient Levemir insulin in addition to a sliding scale coverage. She is having diarrhea. She has a fecal management system in [facility]. Stool for C. diff has been negative. No other significant events otherwise for now. On 03/16/2022, seeing the patient for a follow-up. Patient has no complaints. She was allowed to raise the head of the bed elevated by 10 of the time. She is on 2 L of Oxymizer nasal cannula. Her cardiac rhythm is still itchy fibrillation/flutter the metoprolol dose has been adjusted and it was increased by cardiology. CSF leak is improved and the patient's drainage catheter is accumulated only 60 mL over the past 24 hours. Meanwhile, the patient completes her IV antibiotic course with cefepime. The patient has a gram-negative sepsis secondary to urinary tract infection. The patient is don't was is down to 10.2 with a hemoglobin 10.1 and his sodium levels of 134 with a potassium level of 4.1, BUN is 26 and a creatinine of 0.6. No other new complaints otherwise for now. He is awake and alert and she is communicating. Surgical wound is being dressed by the spine surgeon. The patient is hemodynamically stable. Alert and awake. There is motivated lower oximetry is bilaterally and there is increased edema and the patient is also receiving Lasix 40 mg IV push every 12 hours and she is in a negative fluid balance of 5.2 L over the past 24 hours. Objective - Vital Signs Vital signs: Vital Signs Temp 97.3 F L 03/14/22 08:00 Pulse 123 H 03/14/22 08:00 Resp 17 03/14/22 08:00 BP 132/84 03/14/22 07:00 Pulse Ox 97 03/14/22 08:00 FiO2 35 03/10/22 10:13 Intake & Output 03/13/22 03/14/22 03/14/22 18:59 06:59 18:59 Intake Total 1160 110 220 Output Total 4095 2375 285 Balance -2935 -2265 -65 Weight 131.7 kg Intake: IV 220 110 220 Caffeine-Sodium Benzoate 100 500 mg In Sodium Chloride 0.9% 100 ml @ 1002 mls/ hr IVPB ONCE ONE Rx#: [id number] Cefepime 2 gm In Sodium 100 Chloride 0.9% 100 ml @ 25 mls/hr IVPB Q12H [facility] Rx# :[id number] Sodium Chloride 0.9% 1, 120 110 20 000 ml @ 10 mls/hr IV . Q24H ME[facility]UL Rx#:[id number] Sodium Ferric Gluconat- 100 Sucrose 125 mg In Sodium Chloride 0.9% 100 ml @ 100 mls/hr IVPB DAILY ME[facility]UL Rx#:[id number] Intake, IV Titration 100 Amount Sodium Ferric Gluconat- 100 Sucrose 125 mg In Sodium Chloride 0.9% 100 ml @ 100 mls/hr IVPB DAILY ME[facility]UL Rx#:[id number] Oral 840 Output: Drainage 50 60 Right hemovac 50 60 Urine 4045 2375 225 Other: Voiding Method Indwelling Catheter Indwelling Catheter ABP, PAP, CO, CI - Last Documented Arterial Blood Pressure 168/63 - Exam No acute distress, oriented 3. Currently on 2 L of oxygen. No respiratory distress, audible wheezing, or use of accessory muscles. Head exam was generally normal. There was no scleral icterus or corneal arcus. Mucous membranes were moist. HEENT examination is grossly unremarkable. Neck supple. Full range of motion. No adenopathy thyromegaly or neck vein distention. Cardiovascular examination reveals regular rhythm rate. S1-S2 normal. No S3 or S4. No discernible murmur noted. Heart sounds are distant. Lungs reveal clear breath sounds. Breath sounds are equal bilaterally. No adventitious lung sounds including wheezes rhonchi or crackles. Abdomen soft bowel sounds are heard. No masses or tenderness. Extremities are intact. Slight edema of the extremities. No cyanosis or clubbing. Skin is without rash or lesion. Large hematoma about the right breast. Neurologic examination is brief but nonfocal. The patient's strength is quite diminished in lower extremity bilaterally. Please refer to the spine surgeons evaluation regarding the motor function and reflexes. Cranial nerves are essentially intact and the patient is awake and alert. She is also oriented. - Labs CBC & Chem 7: 03/14/22 05:04 03/14/22 05:04 Labs: Abnormal Lab Results - Last 24 Hours (Table) 03/13/22 03/13/22 03/13/22 Range/Units 11:41 16:10 20:09 RBC (3.80-5.40) m/uL Hgb (11.4-16.0) gm/dL Hct (34.0-46.0) % RDW (11.5-15.5) % Plt Count (150-450) k/uL Neutrophils # (1.3-7.7) k/uL Lymphocytes # (1.0-4.8) k/uL Sodium (137-145) mmol/L Carbon Dioxide (22-30) mmol/L BUN (7-17) mg/dL Glucose (74-99) mg/dL POC Glucose (mg/dL) 283 H 261 H 213 H (70-110) mg/dL Calcium (8.4-10.2) mg/dL 03/13/22 03/14/22 03/14/22 Range/Units 22:53 05:04 05:04 RBC 3.28 L (3.80-5.40) m/uL Hgb 10.1 L (11.4-16.0) gm/dL Hct 29.7 L (34.0-46.0) % RDW 16.4 H (11.5-15.5) % Plt Count 100 L (150-450) k/uL Neutrophils # 9.2 H (1.3-7.7) k/uL Lymphocytes # 0.5 L (1.0-4.8) k/uL Sodium 134 L (137-145) mmol/L Carbon Dioxide 31 H (22-30) mmol/L BUN 26 H (7-17) mg/dL Glucose 159 H (74-99) mg/dL POC Glucose (mg/dL) 172 H (70-110) mg/dL Calcium 7.4 L (8.4-10.2) mg/dL 03/14/22 Range/Units 06:19 RBC (3.80-5.40) m/uL Hgb (11.4-16.0) gm/dL Hct (34.0-46.0) % RDW (11.5-15.5) % Plt Count (150-450) k/uL Neutrophils # (1.3-7.7) k/uL Lymphocytes # (1.0-4.8) k/uL Sodium (137-145) mmol/L Carbon Dioxide (22-30) mmol/L BUN (7-17) mg/dL Glucose (74-99) mg/dL POC Glucose (mg/dL) 178 H (70-110) mg/dL Calcium (8.4-10.2) mg/dL Microbiology - Last 24 Hours (Table) 03/07/22 16:28 Blood Culture - Final Blood No Growth after 144 hours Assessment and Plan Plan: Acute sepsis with hypotension secondary to bacteremia/urinary tract infection with Enterobacter. The patient is currently on IV cefepime. Hemodynamically stable. The patient is afebrile. The patient is completing course of IV cefepime Bacteremia secondary to Enterobacter cloacae. This is likely a urinary source, completing course of IV cefepime altered mental status , recovered, back to normal Atrial flutter fibrillation/flutter with a rapid ventricular response requiring amiodarone. She is in sinus tchycardia and she is on Po aniodarone and Lopressor, no anticoagulants due to GIB, and the dose of metoprolol was increased up to 50 mg by mouth 3 times a day Lactic acidosis, improved Acute renal failure, improved and the creatinine is normalized Hyperkalemia, improved. Hyponatremia, recovered. Leukocytosis, improved. GIB and the patient and an EDG (gastritis and esophagitis) , inactive an stable Acute anemia with a hemoglobin dropped to 5.4. The patient had developed a large right sided chest wall/breast hematoma suspect secondary to fall on 03/06/2022. Hb is stable at 10.1 Lumbar decompression/fusion postoperative day #18. On 03/09/2022 she did require exploration and washout with dural repairs due to falls. Hemo-vac placed. Postoperative day #5 Dural tear/leak and the patinet has a drain Cardiac arrest, brief pulseless electrical activity encountered in the operating room. Acute hypoxic/hypercapnic respiratory failure secondary to cardiac arrest/PEA. Morbid obesity, BMI of 49.0. History of right hemidiaphragm paralysis. History of right-sided breast cancer, previous lumpectomy. Chronic atrial fibrillation/flutter. Dyslipidemia. Benign essential hypertension. diabetes mellitus, maintained on Decadron and the patient is a component of steroid-induced hyperglycemia, and currently the patient is on Levemir insulin at 10 units in addition to a sliding scale coverage. CHF with an ejection fraction of 35-40% Fluid overload with increased lower extremity edema currently on a combination of Lasix 40 mg IV every 12 hours in addition to Diamox, The patient remains in negative fluid balance Diarrhea, currently has a fecal management system in place and the patient has negative stool for C. diff. Plan Keep the patient in intensive care unit Continue using the senna spirometer Keep the patient flat in bed per surgical recommendation and the patient will be turned every 2 hours. It'll be allowed for the patient to have that underwent elevated at 30. Keep the drain to gravity continue IV cefepime for now Plan control with Tylenol Acetazolamide for the dural leak Monitor the hemoglobin Surgicalone-sided is being dressed by spine surgery Watch for signs of GI bleeding No anticoagulants for now Continue amiodarone and metoprolol for rate control, And the metoprolol has been increased up to 50 mg by mouth 3 times a day Continue IV iron treatment Continue IV Lasix 40 mg, Currently in negative fluid balance Continue Aldactone We'll continue to follow and keep the patient intensive care unit for now. Critical care evaluation that was done in more than 30 minutes Time with Patient: Greater than 30
[2022-03-14 16:41] LABS: Glucose,Whole Blood 283 mg/dL (70-110)
[2022-03-14] MEDS: CYCLOBENZAPRINE 10 MG TAB PO PRN (16:45)
[2022-03-14 20:02] LABS: Glucose,Whole Blood 317 mg/dL (70-110)
[2022-03-14 20:58] LABS: Glucose,Whole Blood 245 mg/dL (70-110)
--- NOTE | 2022-03-14 21:56 | P.PN ---
Subjective Progress Note Date: 03/13/22 Principal diagnosis: UTI and bacteremia Patient is a 71-year-old female with a past medical history difficult for atrial fibrillation flutter hypertension hyperlipidemia hypothyroidism right breast cancer electively admitted to the hospital more than 2 weeks ago 022 for T10 to lumbar spine revision decompression and posterior lateral interbody fusion, patient did have a episode of hypotension and elevated white count requiring admission to the ICU patient did have a positive UA and gram- negative bacteremia and is scheduled for exploration of the thoracolumbar incision completed on 03/09/2022 with apparently no evidence of any abscess as reported by the nursing staff On today's evaluation that is 03/13/2022 the patient remains to be afebrile , the patient is breathing comfortably on 2 L nasal cannula oxygen , the patient denies any chest pain, the patient did have occasional dry cough no nausea no vomiting no abdominal pain and no worsening diarrhea reported Objective - Vital Signs Vital signs: Vital Signs Temp 97.7 F 03/13/22 08:00 Pulse 115 H 03/13/22 11:00 Resp 16 03/13/22 11:00 BP 131/83 03/13/22 11:00 Pulse Ox 97 03/13/22 11:00 FiO2 35 03/10/22 10:13 Intake & Output 03/12/22 03/13/22 03/13/22 18:59 06:59 18:59 Intake Total 1276.7 220 380 Output Total 2009 2549 2670 Balance -733.3 -2330 -2290 Weight 136.2 kg Intake: IV 236.7 220 40 Cefepime 2 gm In Sodium 100 100 Chloride 0.9% 100 ml @ 25 mls/hr IVPB Q12H ME[facility]UL Rx# :[id number] Sodium Chloride 0.9% 1, 120 120 40 000 ml @ 10 mls/hr IV . Q24H ME[facility]UL Rx#:[id number] amiodarone 16.7 Intake, IV Titration 200 100 Amount Caffeine-Sodium Benzoate 100 500 mg In Sodium Chloride 0.9% 100 ml @ 1002 mls/ hr IVPB ONCE ONE Rx#: [id number] Sodium Ferric Gluconat- 100 100 Sucrose 125 mg In Sodium Chloride 0.9% 100 ml @ 100 mls/hr IVPB DAILY MEHUL Rx#:[id number] Oral 840 240 Output: Drainage 60 20 Right hemovac 60 20 Urine 1950 8510 4116 Other: Voiding Method Indwelling Catheter Indwelling Catheter # Bowel Movements 1 1 ABP, PAP, CO, CI - Last Documented Arterial Blood Pressure 151/73 - Exam GENERAL DESCRIPTION: An elderly female lying in bed in no distress RESPIRATORY SYSTEM: Unlabored breathing , decreased breath sounds at bases HEART: S1 S2 regular rate and rhythm , ABDOMEN: Soft , no tenderness EXTREMITIES: Diffuse swelling bilateral lower extremity - Labs CBC & Chem 7: 03/14/22 05:04 03/14/22 05:04 Labs: Abnormal Lab Results - Last 24 Hours (Table) 03/12/22 03/12/22 03/13/22 Range/Units 16:41 20:22 03:00 RBC (3.80-5.40) m/uL Hgb (11.4-16.0) gm/dL Hct (34.0-46.0) % RDW (11.5-15.5) % Plt Count (150-450) k/uL Sodium 133 L (137-145) mmol/L Carbon Dioxide 32 H (22-30) mmol/L BUN 27 H (7-17) mg/dL Glucose 158 H (74-99) mg/dL POC Glucose (mg/dL) 256 H 244 H (70-110) mg/dL Calcium 7.1 L (8.4-10.2) mg/dL Total Bilirubin 1.6 H (0.2-1.3) mg/dL ALT 185 H (4-34) U/L Total Protein 4.6 L (6.3-8.2) g/dL Albumin 2.7 L (3.5-5.0) g/dL 03/13/22 03/13/22 03/13/22 Range/Units 03:00 05:51 11:41 RBC 3.09 L (3.80-5.40) m/uL Hgb 9.6 L (11.4-16.0) gm/dL Hct 27.9 L (34.0-46.0) % RDW 15.7 H (11.5-15.5) % Plt Count 81 L (150-450) k/uL Sodium (137-145) mmol/L Carbon Dioxide (22-30) mmol/L BUN (7-17) mg/dL Glucose (74-99) mg/dL POC Glucose (mg/dL) 190 H 283 H (70-110) mg/dL Calcium (8.4-10.2) mg/dL Total Bilirubin (0.2-1.3) mg/dL ALT (4-34) U/L Total Protein (6.3-8.2) g/dL Albumin (3.5-5.0) g/dL Microbiology - Last 24 Hours (Table) 03/07/22 16:28 Blood Culture - Preliminary Blood No Growth after 120 hours Assessment and Plan (1) Gram-negative bacteremia Current Visit: Yes Status: Acute Code(s): R78.81 - BACTEREMIA SNOMED Code(s): 867209102901 Plan: 1patient with SIRS/sepsis in this patient who has been in the hospital for 2 weeks with elective admission to the hospital for thoracolumbar spine revision did have a cardiac arrest requiring resuscitation now with evidence of significant hypertension ileus and elevated white count source possible UTI as the patient urine as well as blood cultures are growing Enterobacter 2patient has shown clinical improvement and the patient white count has normalized, patient will continue with the cefepime and monitor clinical course closely Time with Patient: Less than 30
--- NOTE | 2022-03-14 22:03 | P.PN ---
Subjective Progress Note Date: 03/14/22 Principal diagnosis: UTI and bacteremia Patient is a 71-year-old female with a past medical history difficult for atrial fibrillation flutter hypertension hyperlipidemia hypothyroidism right breast cancer electively admitted to the hospital more than 2 weeks ago 022 for T10 to lumbar spine revision decompression and posterior lateral interbody fusion, patient did have a episode of hypotension and elevated white count requiring admission to the ICU patient did have a positive UA and gram- negative bacteremia and is scheduled for exploration of the thoracolumbar incision completed on 03/09/2022 with apparently no evidence of any abscess as reported by the nursing staff On today's evaluation that is 03/14/2022 the patient continues to be afebrile , the patient is breathing comfortably, the patient denies any chest pain, the patient did have occasional dry cough, the patient denies nausea no vomiting no abdominal pain and no worsening back pain Objective - Vital Signs Vital signs: Vital Signs Temp 97.9 F 03/14/22 12:00 Pulse 88 03/14/22 14:00 Resp 18 03/14/22 14:00 BP 125/70 03/14/22 14:00 Pulse Ox 97 03/14/22 14:00 FiO2 35 03/10/22 10:13 Intake & Output 03/13/22 03/14/22 03/14/22 18:59 06:59 18:59 Intake Total 1160 110 380 Output Total 4098 1212 4640 Balance -8911 -0543 -7145 Weight 131.7 kg Intake: IV 220 110 380 Caffeine-Sodium Benzoate 100 500 mg In Sodium Chloride 0.9% 100 ml @ 1002 mls/ hr IVPB ONCE ONE Rx#: [id number] Cefepime 2 gm In Sodium 100 100 Chloride 0.9% 100 ml @ 25 mls/hr IVPB Q12H [facility] Rx# :[id number] Sodium Chloride 0.9% 1, 120 110 80 000 ml @ 10 mls/hr IV . Q24H [facility] Rx#:[id number] Sodium Ferric Gluconat- 100 Sucrose 125 mg In Sodium Chloride 0.9% 100 ml @ 100 mls/hr IVPB DAILY [facility] Rx#:[id number] Intake, IV Titration 100 Amount Sodium Ferric Gluconat- 100 Sucrose 125 mg In Sodium Chloride 0.9% 100 ml @ 100 mls/hr IVPB DAILY [facility] Rx#:[id number] Oral 840 Output: Drainage 50 60 Right hemovac 50 60 Urine 2651 3070 0703 Other: Voiding Method Indwelling Catheter Indwelling Catheter Indwelling Catheter ABP, PAP, CO, CI - Last Documented Arterial Blood Pressure 152/69 - Exam GENERAL DESCRIPTION: An elderly female lying in bed in no distress RESPIRATORY SYSTEM: Unlabored breathing , decreased breath sounds at bases HEART: S1 S2 regular rate and rhythm , ABDOMEN: Soft , no tenderness EXTREMITIES: Diffuse swelling bilateral lower extremity - Labs CBC & Chem 7: 03/14/22 05:04 03/14/22 05:04 Labs: Abnormal Lab Results - Last 24 Hours (Table) 03/13/22 03/13/22 03/13/22 Range/Units 16:10 20:09 22:53 RBC (3.80-5.40) m/uL Hgb (11.4-16.0) gm/dL Hct (34.0-46.0) % RDW (11.5-15.5) % Plt Count (150-450) k/uL Neutrophils # (1.3-7.7) k/uL Lymphocytes # (1.0-4.8) k/uL Sodium (137-145) mmol/L Carbon Dioxide (22-30) mmol/L BUN (7-17) mg/dL Glucose (74-99) mg/dL POC Glucose (mg/dL) 261 H 213 H 172 H (70-110) mg/dL Calcium (8.4-10.2) mg/dL 03/14/22 03/14/22 03/14/22 Range/Units 05:04 05:04 06:19 RBC 3.28 L (3.80-5.40) m/uL Hgb 10.1 L (11.4-16.0) gm/dL Hct 29.7 L (34.0-46.0) % RDW 16.4 H (11.5-15.5) % Plt Count 100 L (150-450) k/uL Neutrophils # 9.2 H (1.3-7.7) k/uL Lymphocytes # 0.5 L (1.0-4.8) k/uL Sodium 134 L (137-145) mmol/L Carbon Dioxide 31 H (22-30) mmol/L BUN 26 H (7-17) mg/dL Glucose 159 H (74-99) mg/dL POC Glucose (mg/dL) 178 H (70-110) mg/dL Calcium 7.4 L (8.4-10.2) mg/dL 03/14/22 Range/Units 11:53 RBC (3.80-5.40) m/uL Hgb (11.4-16.0) gm/dL Hct (34.0-46.0) % RDW (11.5-15.5) % Plt Count (150-450) k/uL Neutrophils # (1.3-7.7) k/uL Lymphocytes # (1.0-4.8) k/uL Sodium (137-145) mmol/L Carbon Dioxide (22-30) mmol/L BUN (7-17) mg/dL Glucose (74-99) mg/dL POC Glucose (mg/dL) 288 H (70-110) mg/dL Calcium (8.4-10.2) mg/dL Microbiology - Last 24 Hours (Table) 03/07/22 16:28 Blood Culture - Final Blood No Growth after 144 hours Assessment and Plan (1) Gram-negative bacteremia Current Visit: Yes Status: Acute Code(s): R78.81 - BACTEREMIA SNOMED Code(s): 376176292054 Plan: 1patient with SIRS/sepsis in this patient who has been in the hospital for 2 weeks with elective admission to the hospital for thoracolumbar spine revision did have a cardiac arrest requiring resuscitation now with evidence of significant hypertension ileus and elevated white count source possible UTI as the patient urine as well as blood cultures are growing Enterobacter 2patient continued to show clinical improvement and the patient white count has normalized as of yesterday, patient will continue with the cefepime and continue supportive care Time with Patient: Less than 30
[2022-03-15] MEDS: DEXAMETHASONE SOD PHOSPHATE 4 MG/ML 1 ML VIAL IVP SCH ×3 (00:12→16:40)
[2022-03-15] MEDS: ACETAMINOPHEN TAB 500 MG TAB PO SCH ×4 (00:12→18:22)
[2022-03-15] MEDS: CEFEPIME 2 GM in SODIUM CHLORIDE 0.9% 100 ML IVPB SCH ×2 (02:17→16:40)
[2022-03-15] MEDS: SODIUM CHLORIDE 0.9% 1,000 ML IV SCH (03:00)
[2022-03-15 06:27] LABS: Glucose,Whole Blood 200 mg/dL (70-110)
[2022-03-15 06:30] LABS: Anisocytosis Slight; HCT 32.3 % (34.0-46.0); HGB 10.5 gm/dL (11.4-16.0); Hypochromasia Slight; MCH 30.1 pg (25.0-35.0); MCHC 32.5 g/dL (31.0-37.0); MCV 92.8 fL (80.0-100.0); Mean Platelet Volume 9.9; Platelet Count 109 k/uL (150-450); Poikilocytosis Slight; RBC 3.48 m/uL (3.80-5.40); RDW 17.1 % (11.5-15.5); WBC 13.1 k/uL (3.8-10.6)
[2022-03-15 06:44] LABS: African American GFR (CKD) >90 (>60 ml/min/1.73 sqM); Anion Gap 5 mmol/L; Blood Urea Nitrogen 27 mg/dL (7-17); Calcium 7.4 mg/dL (8.4-10.2); Carbon Dioxide 27 mmol/L (22-30); Chloride 102 mmol/L (98-107); Glucose 186 mg/dL (74-99); Non-African American GFR(CKD) >90 (>60 ml/min/1.73 sqM); Potassium 4.3 mmol/L (3.5-5.1); Sodium 134 mmol/L (137-145)
[2022-03-15] MEDS: LEVOTHYROXINE 88 MCG TAB PO SCH (06:55)
[2022-03-15 06:57] LABS: Glucose,Whole Blood 182 mg/dL (70-110)
[2022-03-15] MEDS: INSULIN ASPART (NovoLOG) 100 UNIT/ML VIAL SQ SCH ×4 (07:02→20:36)
[2022-03-15] MEDS: INSULIN DETEMIR (LEVEMIR) 100 UNIT/ML SYR SQ SCH (07:02)
--- NOTE | 2022-03-15 07:25 | CDI ---
Documentation Clarification Form Date: 03/13/2022 10:36:00 AM From: Sheila Dennis RN, CCDS Admit Date: 02/24/2022 05:34:00 AM Patient Name: Gabrielle Gee Visit Number: [id number] Discharge Date: ATTENTION: The Clinical Documentation Specialists (CDI) and [facility] Coding Staff appreciate your assistance in clarifying documentation. Please respond to the clarification below the line at the bottom and electronically sign. The CDI & [facility] Coding staff will review the response and follow-up if needed. Please note: Queries are made part of the Legal Health Record. If you have any questions, please contact the author of this message via ITS. Dr. Thom Alexander Sepsis likely secondary to wound infection is documented in the ongoing internal medicine progress notes starting on 03/10/22 and patient had Revision 10 -pelvis decompression fusion, dural repair with patch graft. As the attending further clarification is requested. Additional clarification is requested regarding the relationship, if any, that exists between the diagnosis and the procedure. 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 03/07 Blood cultures Enterobacter cloacae 03/10 Internal medicine query response: sepsis secondary to wound infection, surgical wound in the back. Treatment: Maintain dressing clean and dry Meticulous cleaning after BMs away from incision site Lay flat, bed rest Turn Q2 HOB 10 degree only Maxipime 2 gm IVPB Q 12 HRS What relationship, if any, exists between the diagnosis of Sepsis secondary to wound infection and the procedure? [ ] Sepsis secondary to wound infection is a complication of surgical procedure [ ] Sepsis secondary to wound infection is related to patients co-morbid condition(s) of [insert co-morbid dxs] & not a complication of the procedure [ ] Sepsis secondary to wound infection has been ruled out [ ] Other please specify ____ [ ] Unable to determine (Template Last Revised: May 2020) Sepsis secondary to wound infection has been ruled out Likely secondary to ischemic bowel issues. [facility]
--- NOTE | 2022-03-15 08:06 | P.PN ---
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 She states no issues related overnight although she was not able to sit up for very long yesterday she did get some headaches. She was then laid flat once again. We will attempt to set her up again today her head of bed is at about 15 right now she has no symptoms. Her drain is in place and the distal drainage is about 100 mL in the draining currently. Same serous clear fluid. No signs of infection at this time. She has been doing her in bed exercises she still has weakness in bilateral hip flexors. But she has decent quad strength and good lower leg strength. Denies any perineal numbness or tingling or other symptoms at this time. Objective - Vital Signs Vital signs: Vital Signs Temp 98.0 F 03/15/22 04:00 Pulse 89 03/15/22 07:00 Resp 12 03/15/22 07:00 BP 137/84 03/15/22 07:00 Pulse Ox 97 03/15/22 07:00 FiO2 35 03/10/22 10:13 Intake & Output 03/14/22 03/15/22 03/15/22 18:59 06:59 18:59 Intake Total 430 170 10 Output Total 3285 1020 50 Balance -2855 -850 -40 Weight 127.8 kg Intake: IV 430 170 10 Caffeine-Sodium Benzoate 100 500 mg In Sodium Chloride 0.9% 100 ml @ 1002 mls/ hr IVPB ONCE ONE Rx#: [id number] Cefepime 2 gm In Sodium 100 100 Chloride 0.9% 100 ml @ 25 mls/hr IVPB Q12H [facility] Rx# :[id number] Sodium Chloride 0.9% 1, 130 70 10 000 ml @ 10 mls/hr IV . Q24H [facility] Rx#:[id number] Sodium Ferric Gluconat- 100 Sucrose 125 mg In Sodium Chloride 0.9% 100 ml @ 100 mls/hr IVPB DAILY [facility] Rx#:[id number] Output: Drainage 60 240 Right hemovac 60 240 Urine 3225 780 50 Other: Voiding Method Indwelling Catheter Indwelling Catheter # Voids 1 ABP, PAP, CO, CI - Last Documented Arterial Blood Pressure 158/70 - Exam her exam today is relatively stable. Drain did have about 100 mL and at. Dressing is clean at this time but she did have an episode last night of her Warren dislodging and she was soaked in urine once again. We will change her dressing today to a new dressing with Ioband to seal it off. If her skin is healing well we will pull the drain and see how she does of her skin needs more time to heal we will leave the drain still to gravity suction. PHYSICAL EXAMINATION: Vitals: BP 168/88 Art line is not reading well. Cuff pressures in 140s systolic, heart rate 117 and currently Aflutter, SpO2 98% on room air, temperature normal General: Awake, alert, appropriate for age, in no acute distress. HEENT: No changes Extremities: Skin warm and dry without no acute lesions, coloration, temperature, skin intact, no tenderness or erythema. Integument: Surgical incisions: Dressings CDI . Palpation: Special findings: pain with palpation of the right breast area with large hematoma notedas well as anterior chest wall. VASCULAR STATUS : Wrist Pulses: [2/4 bilateral radial and ulnar] Pedal Pulses: [2/4 bilateral DP and PT] Color: [Normal] Edema: Improved in arms and hands. Nursing states 3-4L off last night with her lasix and other meds. NEUROLOGIC EXAMINATION: Mental Status: Awake and alert, oriented,but slow with normal attention, concentration and memory, and fluent, he has slow speech Cranial Nerves: I: Olfactory not tested. II: Visual acuity normal, no visual field deficit noted with confrontation. III,IV: Normal pupillary reflexes & intact extraocular movements without nystagmus. V,: Intact symmetrical facial sensation. VII: Intact symmetrical facial motor movement VIII: Hearing intact. IX,X: Intact gag, swallow, & normal voice. XI: Sternocleidomastoid, trapezius function intact. XII: Tongue midline with normal movements. Special Tests: L'hermitte's Sign: Absent Straight Leg Raising: Absent Bilateral Motor Exam (0-5/5, N/T) STRENGTH 4+ out of 5 strength in upper extremity's bilaterally all major muscle groups without focal deficits generalized weakness 4- to 5 strength bilateral lower extremities all major muscle groups with generalized weakness no focal deficits. She is weak in her hip flexors currently. REFLEXES Upper Extremity: RIGHT [2]/4 LEFT [2]/4 Lower Extremity: RIGHT [2]/4 LEFT [2]/4 Pathological Reflexes Warren's: RIGHT [Absent] LEFT [Absent] Babinski: RIGHT [Absent] LEFT [Absent] Clonus: RIGHT [None] LEFT [None] SENSORY Intact Gait and Functional Evaluation: Ambulatory aids: max assist with walker - Labs CBC & Chem 7: 03/15/22 05:56 03/15/22 05:56 Labs: Abnormal Lab Results - Last 24 Hours (Table) 03/14/22 03/14/22 03/14/22 Range/Units 11:53 16:40 20:01 WBC (3.8-10.6) k/uL RBC (3.80-5.40) m/uL Hgb (11.4-16.0) gm/dL Hct (34.0-46.0) % RDW (11.5-15.5) % Plt Count (150-450) k/uL Sodium (137-145) mmol/L BUN (7-17) mg/dL Glucose (74-99) mg/dL POC Glucose (mg/dL) 288 H 283 H 317 H (70-110) mg/dL Calcium (8.4-10.2) mg/dL 03/14/22 03/15/22 03/15/22 Range/Units 20:57 05:56 05:56 WBC 13.1 H (3.8-10.6) k/uL RBC 3.48 L (3.80-5.40) m/uL Hgb 10.5 L (11.4-16.0) gm/dL Hct 32.3 L (34.0-46.0) % RDW 17.1 H (11.5-15.5) % Plt Count 109 L (150-450) k/uL Sodium 134 L (137-145) mmol/L BUN 27 H (7-17) mg/dL Glucose 186 H (74-99) mg/dL POC Glucose (mg/dL) 245 H (70-110) mg/dL Calcium 7.4 L (8.4-10.2) mg/dL 03/15/22 03/15/22 Range/Units 06:25 06:55 WBC (3.8-10.6) k/uL RBC (3.80-5.40) m/uL Hgb (11.4-16.0) gm/dL Hct (34.0-46.0) % RDW (11.5-15.5) % Plt Count (150-450) k/uL Sodium (137-145) mmol/L BUN (7-17) mg/dL Glucose (74-99) mg/dL POC Glucose (mg/dL) 200 H 182 H (70-110) mg/dL Calcium (8.4-10.2) mg/dL Assessment and Plan Assessment: 1. 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 Status post 7 units PRBC and 1 pack platelets -bilateral lower extremity weakness, status post multiple controlled falls in- house -Enterobacter sepsis, UTI - status post cardiac arrest Plan: -Appreciate information technology consultant and team management PCC and medicine -appreciate cardiothoracic, Gen. surgery, nephrology, ID evaluations -Dressing will be changed today by Ortho. We will check her wound and leave drain if skin needs more time to heal or pull drain if skin is healing well. -continue Activity: Lay flat, Bed rest. Turn q2. HOB 30 deg OK continue in bed therapy with ankle pumps to motions but squeezes quad thrusts and are motions. -Daily proning 5-10 min work up to 10 -Drain to gravity only -Cont Abx for duration of stay -Add caffiene daily 200 mg daily -Pain control: Adequate today ( Tylenol 1000 mg [facility], Oxy IR q4 hrs 10-15 mg titrated to pain (pt been on [place] for 20 yrs), Cont Gabapentin,) -Acetazolamide 250mg daily -Meds: reviewed -Trend labs -transfusions to vitals -GI ppx: senna, Miralax -continue Warren changed per protocol -Cont with FBS -DVT PPX: Mechanical only -Hygiene: Maintain dressing clean and dry. Meticulous cleaning after BMs away from incision site patient has had several instances on the floor where she was covered and bowel movement as well as urine up to her shoulders on her back. The wound needs to be kept meticulously clean. -Encourage IS 10x/hr -Will follow
--- NOTE | 2022-03-15 08:48 | P.PN ---
Subjective Progress Note Date: 03/15/22 PROGRESS NOTE The patient is a 71-year-old female who underwent lumbar surgery on February 24 for severe stenosis, mechanical low back pain and neurogenic claudication. She has a known history of atrial flutter, atrial fibrillation. She continues to be in atrial flutter at this time with 2 to one conduction. She had an echocardiogram on February 27 that showed an ejection fraction of 35-40% with moderate mitral regurgitation. In 2018 her LV systolic function was normal. It is unclear if this deterioration is an acute event following her surgery. She feels better overall, has musculoskeletal right-sided discomfort. She is not anticoagulated because of recent bleeding. She denies any nausea or vomiting. Her blood pressure is under good control. She had positive urine culture. March 14: The patient is feeling slightly better today, she denies any chest discomfort or dizziness. She continues to be in atrial flutter with 2 to one conduction. She had episodes of her lower heart rate. She is tolerating her present medical regimen. She has no evidence of ventricular tachycardia. She continues to be in bed, she is allowed to lift her head 30 today. She has no nausea or vomiti ng. She has no dizziness or palpitations. Her right-sided chest discomfort has improved. Her anticoagulation remains on hold because of her anemia and hematoma. March 15: Patient continues to have soreness but better. She has mild nausea but no significant dyspnea. Her atrial flutter rate is under better control. She denies any chest discomfort, dizziness or palpitations. She continues to be at bedrest. Her blood pressures been stable on the present regimen. Medications: Amiodarone 400 mg twice a day, Lipitor 10 mg daily, Lasix 40 mg IV every 12 hours, metoprolol 50 mg 3 times a day, Protonix. Lisinopril 5 mg daily, Aldactone 25 mg daily PHYSICAL EXAMINATION: Blood pressure 125/80, heart rate 96, afebrile LUNGS: Clear to auscultation HEART: Irregular rate and rhythm, , tachycardic S1, S2. No S3. No systolic murmur ABDOMEN: Soft, nontender, no organomegaly, obese EXTREMETIES: +1 edema LAB: BUN 27, creatinine 0.59, potassium 4.3. Hemoglobin 10.5. IMPRESSION: 1. Status post back surgery 2. Atrial flutter with controlled ventricular response, not anticoagulated because of recent bleeding 3. Anemia 4. Cardiomyopathy of unknown etiology 5. Bacteremia 6. Acute renal injury resolved 7. Morbid obesity 8. Hyperlipidemia 9. Hypertension PLAN: 1. Continue present therapy 2. Patient requires anticoagulation once clear by surgery because of her cardiomyopathy and risk factor for embolic phenomenon 3. Increase activity per surgery 4. Decrease amiodarone in 48 hours if ventricular rate is controlled 5. Depending on her progress further recommendations will be made. Objective - Vital Signs Vital signs: Vital Signs Temp 97.6 F 03/15/22 08:00 Pulse 96 03/15/22 08:00 Resp 28 H 03/15/22 08:00 BP 125/82 03/15/22 08:00 Pulse Ox 97 03/15/22 08:00 FiO2 35 03/10/22 10:13 Intake & Output 03/14/22 03/15/22 03/15/22 18:59 06:59 18:59 Intake Total 430 170 20 Output Total 3285 1020 110 Balance -2855 -850 -90 Weight 127.8 kg Intake: IV 430 170 20 Caffeine-Sodium Benzoate 100 500 mg In Sodium Chloride 0.9% 100 ml @ 1002 mls/ hr IVPB ONCE ONE Rx#: [id number] Cefepime 2 gm In Sodium 100 100 Chloride 0.9% 100 ml @ 25 mls/hr IVPB Q12H [facility] Rx# :[id number] Sodium Chloride 0.9% 1, 130 70 20 000 ml @ 10 mls/hr IV . Q24H [facility] Rx#:[id number] Sodium Ferric Gluconat- 100 Sucrose 125 mg In Sodium Chloride 0.9% 100 ml @ 100 mls/hr IVPB DAILY [facility] Rx#:[id number] Output: Drainage 60 240 Right hemovac 60 240 Urine 3225 780 110 Other: Voiding Method Indwelling Catheter Indwelling Catheter # Voids 1 ABP, PAP, CO, CI - Last Documented Arterial Blood Pressure 158/70 - Labs CBC & Chem 7: 03/15/22 05:56 03/15/22 05:56 Labs: Abnormal Lab Results - Last 24 Hours (Table) 03/14/22 03/14/22 03/14/22 Range/Units 11:53 16:40 20:01 WBC (3.8-10.6) k/uL RBC (3.80-5.40) m/uL Hgb (11.4-16.0) gm/dL Hct (34.0-46.0) % RDW (11.5-15.5) % Plt Count (150-450) k/uL Sodium (137-145) mmol/L BUN (7-17) mg/dL Glucose (74-99) mg/dL POC Glucose (mg/dL) 288 H 283 H 317 H (70-110) mg/dL Calcium (8.4-10.2) mg/dL 03/14/22 03/15/22 03/15/22 Range/Units 20:57 05:56 05:56 WBC 13.1 H (3.8-10.6) k/uL RBC 3.48 L (3.80-5.40) m/uL Hgb 10.5 L (11.4-16.0) gm/dL Hct 32.3 L (34.0-46.0) % RDW 17.1 H (11.5-15.5) % Plt Count 109 L (150-450) k/uL Sodium 134 L (137-145) mmol/L BUN 27 H (7-17) mg/dL Glucose 186 H (74-99) mg/dL POC Glucose (mg/dL) 245 H (70-110) mg/dL Calcium 7.4 L (8.4-10.2) mg/dL 03/15/22 03/15/22 Range/Units 06:25 06:55 WBC (3.8-10.6) k/uL RBC (3.80-5.40) m/uL Hgb (11.4-16.0) gm/dL Hct (34.0-46.0) % RDW (11.5-15.5) % Plt Count (150-450) k/uL Sodium (137-145) mmol/L BUN (7-17) mg/dL Glucose (74-99) mg/dL POC Glucose (mg/dL) 200 H 182 H (70-110) mg/dL Calcium (8.4-10.2) mg/dL
[2022-03-15] MEDS ORDERED: CAFFEINE-SODIUM BENZOATE 500 MG in SODIUM CHLORIDE 0.9% 100 ML IVPB ONE (09:00)
[2022-03-15] MEDS: SODIUM FERRIC GLUCONAT-SUCROSE 125 MG in SODIUM CHLORIDE 0.9% 100 ML IVPB SCH (09:09)
[2022-03-15] MEDS: PANTOPRAZOLE 40 MG/10 ML VIAL IVP SCH (09:10)
[2022-03-15] MEDS: FUROSEMIDE 10 MG/ML 4 ML VIAL IV SCH ×2 (09:10→20:35)
[2022-03-15] MEDS: METOPROLOL TARTRATE 50 MG TAB PO SCH ×3 (09:11→22:06)
[2022-03-15] MEDS: ATORVASTATIN 10 MG TAB PO SCH (09:11)
[2022-03-15] MEDS: lisinopriL 5 MG TAB PO SCH (09:11)
[2022-03-15] MEDS: DULoxetine HCL 60 MG CAPSULE.DR PO SCH (09:11)
[2022-03-15] MEDS: GABAPENTIN 400 MG CAP PO SCH ×3 (09:11→22:06)
[2022-03-15] MEDS: SPIRONOLACTONE 25 MG TAB PO SCH (09:11)
[2022-03-15] MEDS: AMIODARONE 200 MG TAB PO SCH ×2 (09:11→20:35)
[2022-03-15] MEDS: acetaZOLAMIDE 250 MG TAB PO SCH (09:12)
[2022-03-15 11:52] LABS: Glucose,Whole Blood 237 mg/dL (70-110)
[2022-03-15] MEDS ORDERED: LIDOCAINE 1% INJ 10MG/ML (5 ML VIAL-PF) SQ ONE (13:30)
--- NOTE | 2022-03-15 13:40 | P.PN ---
Progress Note - Text Progress Note Date: 03/15/22 Patient seen this afternoon and surgical dressing has been changed. Patient was assisted to her left side and was able to hold herself over without difficulty. Initial dressing was clean and dry. New dressing of 4x4 gauze, ABD, tape and Ioban applied. Pateint states she continues with headache and intermittent blurred vision. Please keep patient laying flat for the next 3-4 days. We will reassess tomorrow morning.
--- NOTE | 2022-03-15 13:52 | P.PN ---
Subjective Progress Note Date: 03/15/22 Patient was seen in the ICU. She is denying any acute complaints. I discussed the case in the ICU nurse. Per ICU nurse patient stool output has been decreasing. Patient is still on bedrest. Objective - Vital Signs Vital signs: Vital Signs Temp 97.2 F L 03/15/22 12:00 Pulse 87 03/15/22 13:00 Resp 8 L 03/15/22 13:00 BP 134/76 03/15/22 13:00 Pulse Ox 98 03/15/22 13:00 FiO2 35 03/10/22 10:13 Intake & Output 03/14/22 03/15/22 03/15/22 18:59 06:59 18:59 Intake Total 430 170 500 Output Total 3285 1020 1320 Balance -2855 -850 -820 Weight 127.8 kg Intake: IV 430 170 250 Caffeine-Sodium Benzoate 100 100 500 mg In Sodium Chloride 0.9% 100 ml @ 1002 mls/ hr IVPB ONCE ONE Rx#: [id number] Cefepime 2 gm In Sodium 100 100 Chloride 0.9% 100 ml @ 25 mls/hr IVPB Q12H [facility] Rx# :[id number] Sodium Chloride 0.9% 1, 130 70 50 000 ml @ 10 mls/hr IV . Q24H [facility] Rx#:[id number] Sodium Ferric Gluconat- 100 100 Sucrose 125 mg In Sodium Chloride 0.9% 100 ml @ 100 mls/hr IVPB DAILY [facility] Rx#:[id number] Oral 250 Output: Drainage 60 240 360 Right hemovac 60 240 360 Urine 3225 780 960 Other: Voiding Method Indwelling Catheter Indwelling Catheter Indwelling Catheter # Voids 1 ABP, PAP, CO, CI - Last Documented Arterial Blood Pressure 158/70 - Exam General examination - Alert and Oriented 3 in NAD, appears chronically debilitated Heart - + S1S2 no murmurs Lungs - diminished breath sounds bilaterally Abdomen soft NT ND +ve BS Extremities - +1 pitting edema bilaterally 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0) gm/dL Hct 32.3 L (34.0-46.0) % RDW 17.1 H (11.5-15.5) % Plt Count 109 L (150-450) k/uL Sodium 134 L (137-145) mmol/L BUN 27 H (7-17) mg/dL Glucose 186 H (74-99) mg/dL POC Glucose (mg/dL) 200 H (70-110) mg/dL Calcium 7.4 L (8.4-10.2) mg/dL 03/15/22 03/15/22 Range/Units 06:55 11:51 WBC (3.8-10.6) k/uL RBC (3.80-5.40) m/uL Hgb (11.4-16.0) gm/dL Hct (34.0-46.0) % RDW (11.5-15.5) % Plt Count (150-450) k/uL Sodium (137-145) mmol/L BUN (7-17) mg/dL Glucose (74-99) mg/dL POC Glucose (mg/dL) 182 H 237 H (70-110) mg/dL Calcium (8.4-10.2) mg/dL Assessment and Plan Assessment: #Septic shock on admission #Enterobacter cloacae bacteremia with likly source UTI #Enterobacter cloacae UTI #Lactic acidosis Currently off mechanical ventilation and pressors. Continue cefepime as per per infectious disease. C.difficile negative. Telemetry monitoring. Pulmonology/ICU on board. #Acute blood loss anemia likely sec to GI bleeding from ischemic colitis #Right breast hematoma secondary to CPR from cardiac arrest She is status post total of 7 units of PRBC transfusion. EGD showed mild gastritis and mild esophagitis with no active bleeding Surgery recommends to continue to hold anticoagulation Continue with PPI CT surgery recommends conservative management of hematoma. She is iron deficient, resume IV Ferrlecit #Abdominal pain #IIeus versus SBO Gen. surgery advancing diet Patient having diarrhea #Acute kidney injury #Hyponatremia Resolved Renal US shows no hydronephrosis on the R, enlarged cyst in the L kidney measuring up to 8.3 cm. BETHANY likely due to ATN from septic shock and hypoNa from poor oral intake. Nephrology on board. #Transaminitis Improved Likely ischemic hepatitis secondary to shock liver. Improved #Atrial fibrillation #Atrial flutter with RVR Anticoagulation discontinued due to blood loss. Patient currently on metoprolol 50 mg 3 times a day Patient also on amiodarone Patient is still tachycardic in the 100s #Acute on chronic systolic CHF chronic Echo shows EF 35-40% with severe pulmonary HTN, moderate MR. Patient will need ischemic workup. Patient started on ACEi and Aldactone Continue IV Lasix as per audiology Cardiology on board. #T10 to pelvis decompression with fusion #Post-op pain #Status post second look wound debridement on 03/09 Management per Orthopedic surgery. Gabapentin, Decadron. Continue with oxycodone PRN. Patient has no stairs and planning on going home, she has nearby help from family but lives alone. Patient currently on bed rest. Awaiting for orthopedic surgery to clear patient for PT OT #Aborted sudden cardiac Cardiology on board. Echocardiogram shows EF 35-40% with moderate MR. #Hyperglycemia likely sec to steroids No official DM diagnosis Levemir 20 units daily. A1c is 6, likely prediabetic, will benefit from metformin upon discharge. #Right diaphragmatic paralysis Aggressive pulmonary hygiene. Pulmonology on board. #HLD Statin. #HTN Resume lisinopril DVT prophylaxis: Holding anticoagulation until cleared by orthopedic surgery
--- NOTE | 2022-03-15 14:53 | XR ---
EXAMINATION TYPE: XR chest 1V confirm line [facility] DATE OF EXAM: 03/15/2022 CLINICAL HISTORY: PICC line placement. TECHNIQUE: Single AP portable supine view of the chest is obtained. COMPARISON: Chest x-ray from 3 days earlier and older studies. FINDINGS: There is left-sided PICC line with tip in SVC. No pneumothorax is noted. Osseous structure s are demineralized. There is elevated right hemidiaphragm redemonstrated. There is chronic parenchym al change without suspicious focal airspace opacity, pleural effusion, or pneumothorax seen bilateral ly. Stable cardiomegaly with mild central vascular congestion. Partial visualization of surgical griffith ge in the lumbar spine is redemonstrated. IMPRESSION: As above. New Left-sided PICC line otherwise no significant change.
--- NOTE | 2022-03-15 14:53 | P.PN ---
Subjective Progress Note Date: 03/15/22 03/13/2022, seeing the patient for a follow-up. This morning, the patient is awake and alert and she is on 2 L of oxygen by nasal cannula. She denies having any signs of any respiratory distress. She is recovering from a septic shock secondary to Enterobacter bacteremia and this is probably related to a urinary tract infection as the same bacteria was cultured in the urine and in the blood. The patient is currently covered with Rocephin, and buttocks and the patient is currently on IV cefepime. The patient has no fever. No chills. No altered mentation she is able to communicate effectively. She has a recent T10 to pelvis decompression with fusion. Pain is under adequate control for now. She had a second look 1 debridement on 03/09/2022. She does have irregular leak and the patient is a drain in place and output is in order of 600 mL overnight. Spine surgeries on the case. The one is to be changed today. She remains in sinus rhythm. She was having episodes of into fibrillation/flutter and she is currently on oral amiodarone and Lopressor. No anticoagulation was done due to concerns of blood loss and GI bleeds. Noted the patient had a acute blood loss anemia secondary to GI bleeding and the patient also had a traumatic right breast hematoma both of which contributed to drop in hemoglobin. The patient had a lowest hemoglobin of 5.4. The patient's most and hemoglobin currently is up to 9.6 and the currently stable. No anticonvulsants are being utilized for now. The patient is also on Decadron. She has developed a component of syringes hyperglycemia and the patient is currently on no long-acting sugar control and and was started the patient Levemir insulin in addition to a sliding scale coverage. She is having diarrhea. She has a fecal management system in [facility]. Stool for C. diff has been negative. No other significant events otherwise for now. On 03/14/2022, seeing the patient for a follow-up. Patient has no complaints. She was allowed to raise the head of the bed elevated by 10 of the time. She is on 2 L of Oxymizer nasal cannula. Her cardiac rhythm is still itchy fibrillation/flutter the metoprolol dose has been adjusted and it was increased by cardiology. CSF leak is improved and the patient's drainage catheter is accumulated only 60 mL over the past 24 hours. Meanwhile, the patient completes her IV antibiotic course with cefepime. The patient has a gram-negative sepsis secondary to urinary tract infection. The patient is don't was is down to 10.2 with a hemoglobin 10.1 and his sodium levels of 134 with a potassium level of 4.1, BUN is 26 and a creatinine of 0.6. No other new complaints otherwise for now. He is awake and alert and she is communicating. Surgical wound is being dressed by the spine surgeon. The patient is hemodynamically stable. Alert and awake. There is motivated lower oximetry is bilaterally and there is increased edema and the patient is also receiving Lasix 40 mg IV push every 12 hours and she is in a negative fluid balance of 5.2 L over the past 24 hours. 03/15/2022, no major change in the patient's condition. The patient is still on 2 L of oxygen by nasal cannula. The patient is clinically and hemodynamically stable. There is still ongoing leak to be off CSF and the dural drain has drained approximately 250 mL over the past 8 hours.The patient is having episodes of atrial flutter/fibrillation. Rate is controlled. She is essentially primary position. He also distress. Occasional headaches. The patient remains on IV Lasix. The fluid balance over the past 24 hours has been -4.2 L and the patient continues to diabetes with IV Lasix. The patient has a fecal management system in Place and total amount of stool output has been 300 mL's. The patient remains on IV cefepime regarding the gram-negative sepsis and stool is being checked for C. diff. The patient is on Levemir insulin. The patient on NovoLog insulin for blood sugar control. Objective - Vital Signs Vital signs: Vital Signs Temp 97.2 F L 03/15/22 12:00 Pulse 86 03/15/22 14:00 Resp 15 03/15/22 14:00 BP 124/64 03/15/22 14:00 Pulse Ox 99 03/15/22 14:00 FiO2 35 03/10/22 10:13 Intake & Output 03/14/22 03/15/22 03/15/22 18:59 06:59 18:59 Intake Total 430 170 810 Output Total 3283 6107 3938 Balance -6705 -850 -635 Weight 127.8 kg 127.8 kg Intake: IV 430 170 260 Caffeine-Sodium Benzoate 100 100 500 mg In Sodium Chloride 0.9% 100 ml @ 1002 mls/ hr IVPB ONCE ONE Rx#: [id number] Cefepime 2 gm In Sodium 100 100 Chloride 0.9% 100 ml @ 25 mls/hr IVPB Q12H [facility] Rx# :[id number] Sodium Chloride 0.9% 1, 130 70 60 000 ml @ 10 mls/hr IV . Q24H [facility] Rx#:[id number] Sodium Ferric Gluconat- 100 100 Sucrose 125 mg In Sodium Chloride 0.9% 100 ml @ 100 mls/hr IVPB DAILY [facility] Rx#:[id number] Oral 550 Output: Drainage 60 240 360 Right hemovac 60 240 360 Urine 3225 780 1085 Other: Voiding Method Indwelling Catheter Indwelling Catheter Indwelling Catheter # Voids 1 ABP, PAP, CO, CI - Last Documented Arterial Blood Pressure 158/70 - Exam No acute distress, oriented 3. Currently on 2 L of oxygen. No respiratory distress, audible wheezing, or use of accessory muscles. Head exam was generally normal. There was no scleral icterus or corneal arcus. Mucous membranes were moist. HEENT examination is grossly unremarkable. Neck supple. Full range of motion. No adenopathy thyromegaly or neck vein distention. Cardiovascular examination reveals regular rhythm rate. S1-S2 normal. No S3 or S4. No discernible murmur noted. Heart sounds are distant. Lungs reveal clear breath sounds. Breath sounds are equal bilaterally. No adventitious lung sounds including wheezes rhonchi or crackles. Abdomen soft bowel sounds are heard. No masses or tenderness. Extremities are intact. Slight edema of the extremities. No cyanosis or clubbing. Skin is without rash or lesion. Large hematoma about the right breast. Neurologic examination is brief but nonfocal. The patient's strength is quite diminished in lower extremity bilaterally. Please refer to the spine surgeons evaluation regarding the motor function and reflexes. Cranial nerves are essentially intact and the patient is awake and alert. She is also oriented. - Labs CBC & Chem 7: 03/15/22 05:56 03/15/22 05:56 Labs: Abnormal Lab Results - Last 24 Hours (Table) 03/14/22 03/14/22 03/14/22 Range/Units 16:40 20:01 20:57 WBC (3.8-10.6) k/uL RBC (3.80-5.40) m/uL Hgb (11.4-16.0) gm/dL Hct (34.0-46.0) % RDW (11.5-15.5) % Plt Count (150-450) k/uL Sodium (137-145) mmol/L BUN (7-17) mg/dL Glucose (74-99) mg/dL POC Glucose (mg/dL) 283 H 317 H 245 H (70-110) mg/dL Calcium (8.4-10.2) mg/dL 03/15/22 03/15/22 03/15/22 Range/Units 05:56 05:56 06:25 WBC 13.1 H (3.8-10.6) k/uL RBC 3.48 L (3.80-5.40) m/uL Hgb 10.5 L (11.4-16.0) gm/dL Hct 32.3 L (34.0-46.0) % RDW 17.1 H (11.5-15.5) % Plt Count 109 L (150-450) k/uL Sodium 134 L (137-145) mmol/L BUN 27 H (7-17) mg/dL Glucose 186 H (74-99) mg/dL POC Glucose (mg/dL) 200 H (70-110) mg/dL Calcium 7.4 L (8.4-10.2) mg/dL 03/15/22 03/15/22 Range/Units 06:55 11:51 WBC (3.8-10.6) k/uL RBC (3.80-5.40) m/uL Hgb (11.4-16.0) gm/dL Hct (34.0-46.0) % RDW (11.5-15.5) % Plt Count (150-450) k/uL Sodium (137-145) mmol/L BUN (7-17) mg/dL Glucose (74-99) mg/dL POC Glucose (mg/dL) 182 H 237 H (70-110) mg/dL Calcium (8.4-10.2) mg/dL Assessment and Plan Plan: Acute sepsis secondary to UTI with Enterobacter with hypotension secondary to bacteremia/urinary tract infection with Enterobacter. The patient is currently on IV cefepime. Hemodynamically stable. altered mental status , recovered, back to normal Atrial flutter fibrillation/flutter with a rapid ventricular response requiring amiodarone. She is in sinus tchycardia and she is on Po aniodarone and Lopressor, no anticoagulants due to GIB, and the dose of metoprolol was increased up to 50 mg by mouth 3 times a day Lactic acidosis, improved Acute renal failure, improved and the creatinine is normalized Hyperkalemia, improved. Hyponatremia, recovered. Leukocytosis, improved. GIB and the patient and an EDG (gastritis and esophagitis) , inactive an stable Acute anemia with a hemoglobin dropped to 5.4. The patient had developed a large right sided chest wall/breast hematoma suspect secondary to fall on 03/06/2022. Hb is stable at 10.5 Lumbar decompression/fusion postoperative day #19. On 03/09/2022 she did require exploration and washout with dural repairs due to falls. Hemo-vac placed. Postoperative day #6 Dural tear/leak and the patinet has a drain Cardiac arrest, brief pulseless electrical activity encountered in the operating room. Acute hypoxic/hypercapnic respiratory failure secondary to cardiac arrest/PEA. Morbid obesity, BMI of 49.0. History of right hemidiaphragm paralysis. History of right-sided breast cancer, previous lumpectomy. Chronic atrial fibrillation/flutter. Dyslipidemia. Benign essential hypertension. diabetes mellitus, maintained on Decadron and the patient is a component of steroid-induced hyperglycemia, and currently the patient is on Levemir insulin at 10 units in addition to a sliding scale coverage. CHF with an ejection fraction of 35-40% Fluid overload with increased lower extremity edema currently on a combination of Lasix 40 mg IV every 12 hours in addition to Diamox, The patient remains in negative fluid balance Diarrhea, currently has a fecal management system in place and the patient has negative stool for C. diff. Plan Keep the patient in intensive care unit Continue using the senna spirometer Keep the patient flat in bed per surgical recommendation and the patient will be turned every 2 hours. It'll be allowed for the patient to have that underwent elevated at 30. Keep the drain to gravity continue IV cefepime for now Plan control with Tylenol Acetazolamide for the dural leak Monitor the hemoglobin Surgical wound dressed by spine surgery Watch for signs of GI bleeding No anticoagulants for now Continue amiodarone 400 mg BID and and the metoprolol 50 mg by mouth 3 times a day Continue IV iron treatment Continue IV Lasix 40 mg, Currently in negative fluid balance Continue Aldactone We'll continue to follow and keep the patient intensive care unit for now. Critical care evaluation that was done in more than 30 minutes
--- NOTE | 2022-03-15 15:05 | P.PN ---
Subjective Progress Note Date: 03/15/22 CHIEF COMPLAINT: Spinal surgery HISTORY OF PRESENT ILLNESS: Patient is in the ICU. She is complaining of a headache. She denies any abdominal pain. Patient has a fecal management system in place. Stools are brown in color. No blood noted. She is tolerating regular diet. Denies any nausea vomiting. Afebrile. WBC 13.1 HgB 10.5 platelets 109 sodium is 134 potassium 4.3 creatinine 0.59 PHYSICAL EXAM: VITAL SIGNS: Reviewed. GENERAL: Well-developed in no acute distress. HEENT: No sclera icterus. Extraocular movements grossly intact. Moist buccal mucosa. Head is atraumatic, normocephalic. CHEST: Hematoma on right side of chest wall almost completely resolved. Her right breast swelling and hematoma is softer. ABDOMEN: Soft. Obese. Nondistended. Nontender. NEUROLOGIC: Alert and oriented. Cranial nerves II through XII grossly intact. ASSESSMENT: 1. Right-sided abdominal pain with bloody stool with hypotension, elevated lactic acid level and elevated WBC. Concerns for possible ischemic colitis. Now improved 2. Right chest wall and breast hematoma likely due to CPR from cardiac arrest 3. Gastric distention and mild proximal small bowel dilation 4. Acute GI bleed with acute blood loss anemia patient had been on blood thinners 5. Sepsis 6. Lumbar decompression/fusion and status post washout 7. EGD showing mild gastritis, mild esophagitis and no active bleeding PLAN: -Continue regular diet -Continue supportive care -Continue PPI -Continue to hold anticoagulation. Further recommendations forthcoming per surgeon regarding restarting anticoagulation Physician Skein Straightener note has been reviewed by physician. Signing provider agrees with the documented findings, assessment, and plan of care. I have personally seen and examined the patient, reviewed the CLINICAL RESOURCE DIRECTOR /PAs history, exam and MDM and agree with the assessment and plan as written. Based on total visit time, I have performed more than 50% of the visit. patient doing better from our standpoint. No bloody stools. Tolerating diet. Denies abdominal pain. We will sign off. Please call if needed. Objective - Vital Signs Vital signs: Vital Signs Temp 97.2 F L 03/15/22 12:00 Pulse 86 03/15/22 14:00 Resp 15 03/15/22 14:00 BP 124/64 03/15/22 14:00 Pulse Ox 99 03/15/22 14:00 FiO2 35 12/09/22 10:13 Intake & Output 03/14/22 03/15/22 03/15/22 18:59 06:59 18:59 Intake Total 430 170 810 Output Total 3285 1028 1445 Balance -2855 -850 -635 Weight 127.8 kg 127.8 kg Intake: IV 430 170 260 Caffeine-Sodium Benzoate 100 100 500 mg In Sodium Chloride 0.9% 100 ml @ 1002 mls/ hr IVPB ONCE ONE Rx#: [id number] Cefepime 2 gm In Sodium 100 100 Chloride 0.9% 100 ml @ 25 mls/hr IVPB Q12H [facility] Rx# :[id number] Sodium Chloride 0.9% 1, 130 70 60 000 ml @ 10 mls/hr IV . Q24H [facility] Rx#:[id number] Sodium Ferric Gluconat- 100 100 Sucrose 125 mg In Sodium Chloride 0.9% 100 ml @ 100 mls/hr IVPB DAILY [facility] Rx#:[id number] Oral 550 Output: Drainage 60 240 360 Right hemovac 60 240 360 Urine 3225 780 1085 Other: Voiding Method Indwelling Catheter Indwelling Catheter Indwelling Catheter # Voids 1 ABP, PAP, CO, CI - Last Documented Arterial Blood Pressure 158/70 - Labs CBC & Chem 7: 03/15/22 05:56 03/15/22 05:56 Labs: Abnormal Lab Results - Last 24 Hours (Table) 03/14/22 03/14/22 03/14/22 Range/Units 16:40 20:01 20:57 WBC (3.8-10.6) k/uL RBC (3.80-5.40) m/uL Hgb (11.4-16.0) gm/dL Hct (34.0-46.0) % RDW (11.5-15.5) % Plt Count (150-450) k/uL Sodium (137-145) mmol/L BUN (7-17) mg/dL Glucose (74-99) mg/dL POC Glucose (mg/dL) 283 H 317 H 245 H (70-110) mg/dL Calcium (8.4-10.2) mg/dL 03/15/22 03/15/22 03/15/22 Range/Units 05:56 05:56 06:25 WBC 13.1 H (3.8-10.6) k/uL RBC 3.48 L (3.80-5.40) m/uL Hgb 10.5 L (11.4-16.0) gm/dL Hct 32.3 L (34.0-46.0) % RDW 17.1 H (11.5-15.5) % Plt Count 109 L (150-450) k/uL Sodium 134 L (137-145) mmol/L BUN 27 H (7-17) mg/dL Glucose 186 H (74-99) mg/dL POC Glucose (mg/dL) 200 H (70-110) mg/dL Calcium 7.4 L (8.4-10.2) mg/dL 03/15/22 03/15/22 Range/Units 06:55 11:51 WBC (3.8-10.6) k/uL RBC (3.80-5.40) m/uL Hgb (11.4-16.0) gm/dL Hct (34.0-46.0) % RDW (11.5-15.5) % Plt Count (150-450) k/uL Sodium (137-145) mmol/L BUN (7-17) mg/dL Glucose (74-99) mg/dL POC Glucose (mg/dL) 182 H 237 H (70-110) mg/dL Calcium (8.4-10.2) mg/dL
[2022-03-15] MEDS: CYCLOBENZAPRINE 10 MG TAB PO PRN (15:22)
--- NOTE | 2022-03-15 15:23 | IR ---
PICC LINE PLACEMENT: HISTORY: Infection requiring long-term antibiotic therapy PROCEDURE: Ultrasound guidance of PICC line placement. PAYROLL AND BENEFITS MANAGER: COMPLICATIONS: None ANESTHESIA: 1. 1% Lidocaine locally. FINDINGS/TECHNIQUE: The procedure was explained to the patient. The risks, complications, benefits and alternatives were discussed and any questions were answered. Informed consent was obtained. The patient was placed supine on the fluoroscopic table and prepped and draped in the usual sterile fash ion. Utilizing a 21 gauge needle and sonographic guidance, access in the left basilic vein was achi eved and there is placement of a 0.018 guidewire. The vein is patent. A 5-F. sheath was placed over the guidewire. The guidewire and dilator were removed and a 5-F. Double lumen PICC line was placed through the sheath with the chest x-ray confirming the tip at the level of the SVC. The sheath was r emoved, the catheter was flushed and sutured into position. The patient was stable throughout the pr ocedure and remained stable upon discharge from the Department of Radiology. The vein puncture was patent under ultrasound. A batres scale image was obtained to document patency of the vein punctured. All elements of the maximal barrier technique were utilized. IMPRESSION: 1. Successful PICC line placement under ultrasound performed bedside within the ICU.
[2022-03-15 16:39] LABS: Glucose,Whole Blood 247 mg/dL (70-110)
--- NOTE | 2022-03-15 16:54 | P.PN ---
Subjective Progress Note Date: 03/15/22 Principal diagnosis: UTI and bacteremia Patient is a 71-year-old female with a past medical history difficult for atrial fibrillation flutter hypertension hyperlipidemia hypothyroidism right breast cancer electively admitted to the hospital more than 2 weeks ago 022 for T10 to lumbar spine revision decompression and posterior lateral interbody fusion, patient did have a episode of hypotension and elevated white count requiring admission to the ICU patient did have a positive UA and gram- negative bacteremia and is scheduled for exploration of the thoracolumbar incision completed on 03/09/2022 with apparently no evidence of any abscess as reported by the nursing staff On today's evaluation that is 03/15/2022 the patient remains to be afebrile , the patient is breathing comfortably on 2 L nasal cannula, the patient denies did have occasional dry cough, the patient denies nausea no vomiting no abdominal pain and no worsening back pain, drainage catheter from the lumbar incision has been discontinued and no worsening diarrhea per the nursing staff Objective - Vital Signs Vital signs: Vital Signs Temp 97.2 F L 03/15/22 12:00 Pulse 86 03/15/22 14:00 Resp 15 03/15/22 14:00 BP 124/64 03/15/22 14:00 Pulse Ox 99 03/15/22 14:00 FiO2 35 03/10/22 10:13 Intake & Output 03/14/22 03/15/22 03/15/22 18:59 06:59 18:59 Intake Total 430 170 810 Output Total 3285 1020 1445 Balance -2855 -850 -635 Weight 127.8 kg 127.8 kg Intake: IV 430 170 260 Caffeine-Sodium Benzoate 100 100 500 mg In Sodium Chloride 0.9% 100 ml @ 1002 mls/ hr IVPB ONCE ONE Rx#: [id number] Cefepime 2 gm In Sodium 100 100 Chloride 0.9% 100 ml @ 25 mls/hr IVPB Q[facility]H [facility] Rx# :[id number] Sodium Chloride 0.9% 1, 130 70 60 000 ml @ 10 mls/hr IV . Q24H [facility] Rx#:[id number] Sodium Ferric Gluconat- 100 100 Sucrose 125 mg In Sodium Chloride 0.9% 100 ml @ 100 mls/hr IVPB DAILY [facility] Rx#:[id number] Oral 550 Output: Drainage 60 240 360 Right hemovac 60 240 360 Urine 3225 780 1085 Other: Voiding Method Indwelling Catheter Indwelling Catheter Indwelling Catheter # Voids 1 ABP, PAP, CO, CI - Last Documented Arterial Blood Pressure 158/70 - Exam GENERAL DESCRIPTION: An elderly female lying in bed in no distress RESPIRATORY SYSTEM: Unlabored breathing , decreased breath sounds at bases HEART: S1 S2 regular rate and rhythm , ABDOMEN: Soft , no tenderness EXTREMITIES: Diffuse swelling bilateral lower extremity - Labs CBC & Chem 7: 03/15/22 05:56 03/15/22 05:56 Labs: Abnormal Lab Results - Last 24 Hours (Table) 03/14/22 03/14/22 03/14/22 Range/Units 16:40 20:01 20:57 WBC (3.8-10.6) k/uL RBC (3.80-5.40) m/uL Hgb (11.4-16.0) gm/dL Hct (34.0-46.0) % RDW (11.5-15.5) % Plt Count (150-450) k/uL Sodium (137-145) mmol/L BUN (7-17) mg/dL Glucose (74-99) mg/dL POC Glucose (mg/dL) 283 H 317 H 245 H (70-110) mg/dL Calcium (8.4-10.2) mg/dL 03/15/22 03/15/22 03/15/22 Range/Units 05:56 05:56 06:25 WBC 13.1 H (3.8-10.6) k/uL RBC 3.48 L (3.80-5.40) m/uL Hgb 10.5 L (11.4-16.0) gm/dL Hct 32.3 L (34.0-46.0) % RDW 17.1 H (11.5-15.5) % Plt Count 109 L (150-450) k/uL Sodium 134 L (137-145) mmol/L BUN 27 H (7-17) mg/dL Glucose 186 H (74-99) mg/dL POC Glucose (mg/dL) 200 H (70-110) mg/dL Calcium 7.4 L (8.4-10.2) mg/dL 03/15/22 03/15/22 Range/Units 06:55 11:51 WBC (3.8-10.6) k/uL RBC (3.80-5.40) m/uL Hgb (11.4-16.0) gm/dL Hct (34.0-46.0) % RDW (11.5-15.5) % Plt Count (150-450) k/uL Sodium (137-145) mmol/L BUN (7-17) mg/dL Glucose (74-99) mg/dL POC Glucose (mg/dL) 182 H 237 H (70-110) mg/dL Calcium (8.4-10.2) mg/dL Assessment and Plan (1) Gram-negative bacteremia Current Visit: Yes Status: Acute Code(s): R78.81 - BACTEREMIA SNOMED Code(s): 083232831363 Plan: 1patient with SIRS/sepsis in this patient who has been in the hospital for 2 weeks with elective admission to the hospital for thoracolumbar spine revision did have a cardiac arrest requiring resuscitation now with evidence of significant hypertension ileus and elevated white count source possible UTI as the patient urine as well as blood cultures are growing Enterobacter 2patient did have slow clinical improvement however the patient white count is slightly elevated and will be monitored closely, patient will continue with the cefepime and continue supportive care Time with Patient: Less than 30
[2022-03-15 20:04] LABS: Glucose,Whole Blood 232 mg/dL (70-110)
[2022-03-16] MEDS: ACETAMINOPHEN TAB 500 MG TAB PO SCH ×5 (00:44→23:40)
[2022-03-16] MEDS: DEXAMETHASONE SOD PHOSPHATE 4 MG/ML 1 ML VIAL IVP SCH ×4 (00:44→23:40)
[2022-03-16] MEDS: CYCLOBENZAPRINE 10 MG TAB PO PRN ×3 (01:22→20:05)
[2022-03-16] MEDS: CEFEPIME 2 GM in SODIUM CHLORIDE 0.9% 100 ML IVPB SCH ×2 (02:37→15:15)
--- NOTE | 2022-03-16 06:32 | P.PN ---
Subjective Progress Note Date: 03/16/22 03/13/2022, seeing the patient for a follow-up. This morning, the patient is awake and alert and she is on 2 L of oxygen by nasal cannula. She denies having any signs of any respiratory distress. She is recovering from a septic shock secondary to Enterobacter bacteremia and this is probably related to a urinary tract infection as the same bacteria was cultured in the urine and in the blood. The patient is currently covered with Rocephin, and buttocks and the patient is currently on IV cefepime. The patient has no fever. No chills. No altered mentation she is able to communicate effectively. She has a recent T10 to pelvis decompression with fusion. Pain is under adequate control for now. She had a second look 1 debridement on 03/09/2022. She does have irregular leak and the patient is a drain in place and output is in order of 600 mL overnight. Spine surgeries on the case. The one is to be changed today. She remains in sinus rhythm. She was having episodes of into fibrillation/flutter and she is currently on oral amiodarone and Lopressor. No anticoagulation was done due to concerns of blood loss and GI bleeds. Noted the patient had a acute blood loss anemia secondary to GI bleeding and the patient also had a traumatic right breast hematoma both of which contributed to drop in hemoglobin. The patient had a lowest hemoglobin of 5.4. The patient's most and hemoglobin currently is up to 9.6 and the currently stable. No anticonvulsants are being utilized for now. The patient is also on Decadron. She has developed a component of syringes hyperglycemia and the patient is currently on no long-acting sugar control and and was started the patient Levemir insulin in addition to a sliding scale coverage. She is having diarrhea. She has a fecal management system in [facility]. Stool for C. diff has been negative. No other significant events otherwise for now. On 03/14/2022, seeing the patient for a follow-up. Patient has no complaints. She was allowed to raise the head of the bed elevated by 10 of the time. She is on 2 L of Oxymizer nasal cannula. Her cardiac rhythm is still itchy fibrillation/flutter the metoprolol dose has been adjusted and it was increased by cardiology. CSF leak is improved and the patient's drainage catheter is accumulated only 60 mL over the past 24 hours. Meanwhile, the patient completes her IV antibiotic course with cefepime. The patient has a gram-negative sepsis secondary to urinary tract infection. The patient is don't was is down to 10.2 with a hemoglobin 10.1 and his sodium levels of 134 with a potassium level of 4.1, BUN is 26 and a creatinine of 0.6. No other new complaints otherwise for now. He is awake and alert and she is communicating. Surgical wound is being dressed by the spine surgeon. The patient is hemodynamically stable. Alert and awake. There is motivated lower oximetry is bilaterally and there is increased edema and the patient is also receiving Lasix 40 mg IV push every 12 hours and she is in a negative fluid balance of 5.2 L over the past 24 hours. 03/15/2022, no major change in the patient's condition. The patient is still on 2 L of oxygen by nasal cannula. The patient is clinically and hemodynamically stable. There is still ongoing leak to be off CSF and the dural drain has drained approximately 250 mL over the past 8 hours.The patient is having episodes of atrial flutter/fibrillation. Rate is controlled. She is essentially primary position. He also distress. Occasional headaches. The patient remains on IV Lasix. The fluid balance over the past 24 hours has been -4.2 L and the patient continues to diabetes with IV Lasix. The patient has a fecal management system in Place and total amount of stool output has been 300 mL's. The patient remains on IV cefepime regarding the gram-negative sepsis and stool is being checked for C. diff. The patient is on Levemir insulin. The patient on NovoLog insulin for blood sugar control. 15 2021, the patient is resting comfortably in bed. She is currently on oxygen on room air oxygen. She was taken off the nasal cannula yesterday. She is using the [employer] spirometer. She remains on IV Lasix. Overall fluid balance is -3.7 L over the past 24 hours. The patient is calm and comfortable. No issues with pain. She has some motor function lower extremities bilaterally. She remains on IV Lasix. She remains on IV cefepime. The drain was removed yesterday by the surgical team. Fecal management system is still in place. The output is dropping the patient's stool is negative for C. diff. She remains on Levemir insulin for blood sugar control and she is also receiving NovoLog coverage. Her cardiac rhythm is currently and out of atrial fibrillation/flutter. This morning, she was found to be in sinus rhythm. She remains on Decadron 2 mg IV every 8 hours. No other complaints otherwise for now. Labs from today are still pending. Yesterday's labs were essentially adequate. Objective - Vital Signs Vital signs: Vital Signs Temp 97.4 F L 03/16/22 00:00 Pulse 75 03/16/22 05:00 Resp 14 03/16/22 05:00 BP 141/73 03/16/22 05:00 Pulse Ox 99 03/16/22 04:00 FiO2 35 03/10/22 10:13 Intake & Output 03/15/22 03/15/22 03/16/22 06:59 18:59 06:59 Intake Total 170 1240 100 Output Total 1020 1407 1087 Balance -532 -895 -6743 Weight 127.8 kg 127.8 kg 127.2 kg Intake: IV 170 390 100 Caffeine-Sodium Benzoate 100 500 mg In Sodium Chloride 0.9% 100 ml @ 1002 mls/ hr IVPB ONCE ONE Rx#: [id number] Cefepime 2 gm In Sodium 100 100 100 Chloride 0.9% 100 ml @ 25 mls/hr IVPB Q12H [facility] Rx# :[id number] Sodium Chloride 0.9% 1, 70 90 000 ml @ 10 mls/hr IV . Q24H [facility] Rx#:[id number] Sodium Ferric Gluconat- 100 Sucrose 125 mg In Sodium Chloride 0.9% 100 ml @ 100 mls/hr IVPB DAILY [facility] Rx#:[id number] Oral 850 Output: Drainage 240 360 Right hemovac 240 360 Urine 780 1635 1641 Stool 5 Other: Voiding Method Indwelling Catheter Indwelling Catheter Indwelling Catheter # Voids 1 ABP, PAP, CO, CI - Last Documented Arterial Blood Pressure 158/70 - Exam No acute distress, oriented 3. Currently on room air oxygen and the patient is calm and comfortable. Head exam was generally normal. There was no scleral icterus or corneal arcus. Mucous membranes were moist. HEENT examination is grossly unremarkable. Neck supple. Full range of motion. No adenopathy thyromegaly or neck vein distention. Cardiovascular examination reveals regular rhythm rate. S1-S2 normal. No S3 or S4. No discernible murmur noted. Heart sounds are distant. Lungs reveal clear breath sounds. Breath sounds are equal bilaterally. No adventitious lung sounds including wheezes rhonchi or crackles. Abdomen soft bowel sounds are heard. No masses or tenderness. Extremities are intact. Slight edema of the extremities. No cyanosis or clubbing. Skin is without rash or lesion. Large hematoma about the right breast. Neurologic examination is brief but nonfocal. The patient's strength is quite diminished in lower extremity bilaterally. Please refer to the spine surgeons evaluation regarding the motor function and reflexes. Cranial nerves are essentially intact and the patient is awake and alert. She is also oriented. - Labs CBC & Chem 7: 03/15/22 05:56 03/15/22 05:56 Labs: Abnormal Lab Results - Last 24 Hours (Table) 03/15/22 03/15/22 03/15/22 Range/Units 05:56 05:56 06:25 WBC 13.1 H (3.8-10.6) k/uL RBC 3.48 L (3.80-5.40) m/uL Hgb 10.5 L (11.4-16.0) gm/dL Hct 32.3 L (34.0-46.0) % RDW 17.1 H (11.5-15.5) % Plt Count 109 L (150-450) k/uL Sodium 134 L (137-145) mmol/L BUN 27 H (7-17) mg/dL Glucose 186 H (74-99) mg/dL POC Glucose (mg/dL) 200 H (70-110) mg/dL Calcium 7.4 L (8.4-10.2) mg/dL 03/15/22 03/15/22 03/15/22 Range/Units 06:55 11:51 16:36 WBC (3.8-10.6) k/uL RBC (3.80-5.40) m/uL Hgb (11.4-16.0) gm/dL Hct (34.0-46.0) % RDW (11.5-15.5) % Plt Count (150-450) k/uL Sodium (137-145) mmol/L BUN (7-17) mg/dL Glucose (74-99) mg/dL POC Glucose (mg/dL) 182 H 237 H 247 H (70-110) mg/dL Calcium (8.4-10.2) mg/dL 03/15/22 Range/Units 20:00 WBC (3.8-10.6) k/uL RBC (3.80-5.40) m/uL Hgb (11.4-16.0) gm/dL Hct (34.0-46.0) % RDW (11.5-15.5) % Plt Count (150-450) k/uL Sodium (137-145) mmol/L BUN (7-17) mg/dL Glucose (74-99) mg/dL POC Glucose (mg/dL) 232 H (70-110) mg/dL Calcium (8.4-10.2) mg/dL Assessment and Plan Plan: Acute sepsis secondary to UTI with Enterobacter with hypotension secondary to bacteremia/urinary tract infection with Enterobacter. The patient is currently on IV cefepime. Hemodynamically stable. altered mental status , recovered, back to normal Atrial flutter fibrillation/flutter with a rapid ventricular response requiring amiodarone. She is in sinus tchycardia and she is on Po aniodarone and Lopressor, no anticoagulants due to GIB, and the dose of metoprolol was increased up to 50 mg by mouth 3 times a day Lactic acidosis, improved Acute renal failure, improved and the creatinine is normalized Hyperkalemia, improved. Hyponatremia, recovered. Leukocytosis, improved. GIB and the patient and an EDG (gastritis and esophagitis) , inactive an stable Acute anemia with a hemoglobin dropped to 5.4. The patient had developed a large right sided chest wall/breast hematoma suspect secondary to fall on 03/06/2022. Hb is stable for now and the bladder awaiting labs from this morning. Lumbar decompression/fusion postoperative day #20. On 03/09/2022 she did require exploration and washout with dural repairs due to falls. Hemo-vac placed. Postoperative day #7 . The drain has been removed yesterday by the surgical team. Dural tear/leak and the patinet has a drain Cardiac arrest, brief pulseless electrical activity encountered in the operating room. Acute hypoxic/hypercapnic respiratory failure secondary to cardiac arrest/PEA. Morbid obesity, BMI of 49.0. History of right hemidiaphragm paralysis. History of right-sided breast cancer, previous lumpectomy. Chronic atrial fibrillation/flutter. Dyslipidemia. Benign essential hypertension. diabetes mellitus, maintained on Decadron and the patient is a component of steroid-induced hyperglycemia, and currently the patient is on Levemir insulin at 20 units in addition to a sliding scale coverage. CHF with an ejection fraction of 35-40% Fluid overload with increased lower extremity edema currently on a combination of Lasix 40 mg IV every 12 hours in addition to Diamox, The patient remains in negative fluid balance Diarrhea, currently has a fecal management system in place and the patient has negative stool for C. diff. Plan Keep the patient in intensive care unit Continue using the [employer]na spirometer Keep the patient flat in bed per surgical recommendation and the patient will be turned every 2 hours. continue IV cefepime for now Plan control with Tylenol Acetazolamide Monitor the hemoglobin Surgical wound dressed by spine surgery Watch for signs of GI bleeding No anticoagulants for now Continue amiodarone 400 mg BID and and the metoprolol 50 mg by mouth 3 times a day Continue IV iron treatment Continue IV Lasix 40 mg, Currently in negative fluid balance Continue Aldactone We'll continue to follow Should be able to down drain removed out of the intensive care unit. She
[2022-03-16 06:40] LABS: Glucose,Whole Blood 188 mg/dL (70-110)
[2022-03-16 06:47] LABS: Anisocytosis Slight; Basophils % (A) 0 %; Eosinophils % (A) 0 %; Hypochromasia Slight; Lymphocytes # (A) 0.4 k/uL (1.0-4.8); Lymphocytes % (A) 4 %; MCH 30.9 pg (25.0-35.0); MCHC 33.1 g/dL (31.0-37.0); MCV 93.4 fL (80.0-100.0); Mean Platelet Volume 10.6; Monocytes # (A) 0.2 k/uL (0-1.0); Monocytes % (A) 2 %; Neutrophils # (A) 9.7 k/uL (1.3-7.7); Neutrophils % (A) 93 %; Platelet Count 112 k/uL (150-450); Poikilocytosis Slight; RBC 2.89 m/uL (3.80-5.40); RDW 17.4 % (11.5-15.5); WBC 10.4 k/uL (3.8-10.6)
[2022-03-16] MEDS: INSULIN DETEMIR (LEVEMIR) 100 UNIT/ML SYR SQ SCH (06:56)
[2022-03-16] MEDS: INSULIN ASPART (NovoLOG) 100 UNIT/ML VIAL SQ SCH ×4 (06:57→20:02)
[2022-03-16] MEDS: LEVOTHYROXINE 88 MCG TAB PO SCH (06:57)
[2022-03-16 06:58] LABS: HGB 8.9 gm/dL (11.4-16.0)
[2022-03-16 07:09] LABS: African American GFR (CKD) >90 (>60 ml/min/1.73 sqM); Anion Gap 3 mmol/L; Blood Urea Nitrogen 28 mg/dL (7-17); Calcium 7.3 mg/dL (8.4-10.2); Carbon Dioxide 29 mmol/L (22-30); Chloride 100 mmol/L (98-107); Glucose 173 mg/dL (74-99); Non-African American GFR(CKD) >90 (>60 ml/min/1.73 sqM); Potassium 4.1 mmol/L (3.5-5.1); Sodium 132 mmol/L (137-145)
--- NOTE | 2022-03-16 08:10 | P.PN ---
Subjective Progress Note Date: 03/16/22 PROGRESS NOTE The patient is a 71-year-old female who underwent lumbar surgery on February 24 for severe stenosis, mechanical low back pain and neurogenic claudication. She has a known history of atrial flutter, atrial fibrillation. She continues to be in atrial flutter at this time with 2 to one conduction. She had an echocardiogram on February 27 that showed an ejection fraction of 35-40% with moderate mitral regurgitation. In 2018 her LV systolic function was normal. It is unclear if this deterioration is an acute event following her surgery. She feels better overall, has musculoskeletal right-sided discomfort. She is not anticoagulated because of recent bleeding. She denies any nausea or vomiting. Her blood pressure is under good control. She had positive urine culture. March 14: The patient is feeling slightly better today, she denies any chest discomfort or dizziness. She continues to be in atrial flutter with 2 to one conduction. She had episodes of her lower heart rate. She is tolerating her present medical regimen. She has no evidence of ventricular tachycardia. She continues to be in bed, she is allowed to lift her head 30 today. She has no nausea or vomiti ng. She has no dizziness or palpitations. Her right-sided chest discomfort has improved. Her anticoagulation remains on hold because of her anemia and hematoma. March 15: Patient continues to have soreness but better. She has mild nausea but no significant dyspnea. Her atrial flutter rate is under better control. She denies any chest discomfort, dizziness or palpitations. She continues to be at bedrest. Her blood pressures been stable on the present regimen. March 16: The patient continues to be in atrial flutter with controlled ventricular response. She feels better overall but continues to feel fatigued. She denies any chest discomfort, dizziness or palpitations. She continues to be at bedrest because of a leak. Her urine output is stable. She is not anticoagulated yet per surgical team. Hemodynamically she is stable. Medications: Amiodarone 400 mg twice a day, Lipitor 10 mg daily, Lasix 40 mg IV every 12 hours, metoprolol 50 mg 3 times a day, Protonix. Lisinopril 5 mg daily, Aldactone 25 mg daily PHYSICAL EXAMINATION: Blood pressure 133/70, heart rate 70, afebrile LUNGS: Clear to auscultation HEART: Irregular rate and rhythm, , tachycardic S1, S2. No S3. No systolic murmur ABDOMEN: Soft, nontender, no organomegaly, obese EXTREMETIES: +1 edema LAB: BUN 28, creatinine 0.6, potassium 4.1. Hemoglobin 8.9. IMPRESSION: 1. Status post back surgery 2. Atrial flutter with controlled ventricular response, not anticoagulated because of recent bleeding 3. Anemia 4. Cardiomyopathy of unknown etiology 5. Bacteremia 6. Acute renal injury resolved 7. Morbid obesity 8. Hyperlipidemia 9. Hypertension PLAN: 1. Decrease amiodarone to 200 mg twice a day 2. Patient requires anticoagulation once clear by surgery because of her cardiomyopathy and risk factor for embolic phenomenon 3. Increase activity per surgery 4. Follow renal functions and hemoglobin 5. Depending on her progress further recommendations will be made. Objective - Vital Signs Vital signs: Vital Signs Temp 97.4 F L 03/16/22 00:00 Pulse 77 03/16/22 07:00 Resp 8 L 03/16/22 07:00 BP 133/78 03/16/22 07:00 Pulse Ox 96 03/16/22 07:00 FiO2 35 03/10/22 10:13 Intake & Output 03/15/22 03/16/22 03/16/22 18:59 06:59 18:59 Intake Total 1240 110 10 Output Total 1994 1685 [facility] -628 -6400 10 Weight 127.8 kg 127.2 kg Intake: IV 390 110 10 Caffeine-Sodium Benzoate 100 500 mg In Sodium Chloride 0.9% 100 ml @ 1002 mls/ hr IVPB ONCE ONE Rx#: [id number] Cefepime 2 gm In Sodium 100 100 Chloride 0.9% 100 ml @ 25 mls/hr IVPB Q12H [facility] Rx# :[id number] Sodium Chloride 0.9% 1, 90 10 10 000 ml @ 10 mls/hr IV . Q24H [facility] Rx#:[id number] Sodium Ferric Gluconat- 100 Sucrose 125 mg In Sodium Chloride 0.9% 100 ml @ 100 mls/hr IVPB DAILY [facility] Rx#:[id number] Oral 850 Output: Drainage 360 Right hemovac 360 Urine 1635 1681 Stool 5 Other: Voiding Method Indwelling Catheter Indwelling Catheter ABP, PAP, CO, CI - Last Documented Arterial Blood Pressure 158/70 - Labs CBC & Chem 7: 03/16/22 05:30 03/16/22 06:11 Labs: Abnormal Lab Results - Last 24 Hours (Table) 03/15/22 03/15/22 03/15/22 Range/Units 11:51 16:36 20:00 RBC (3.80-5.40) m/uL Hgb (11.4-16.0) gm/dL Hct (34.0-46.0) % RDW (11.5-15.5) % Plt Count (150-450) k/uL Neutrophils # (1.3-7.7) k/uL Lymphocytes # (1.0-4.8) k/uL Sodium (137-145) mmol/L BUN (7-17) mg/dL Glucose (74-99) mg/dL POC Glucose (mg/dL) 237 H 247 H 232 H (70-110) mg/dL Calcium (8.4-10.2) mg/dL 03/16/22 03/16/22 03/16/22 Range/Units 05:30 06:11 06:40 RBC 2.89 L (3.80-5.40) m/uL Hgb 8.9 L D (11.4-16.0) gm/dL Hct 27.0 L (34.0-46.0) % RDW 17.4 H (11.5-15.5) % Plt Count 112 L (150-450) k/uL Neutrophils # 9.7 H (1.3-7.7) k/uL Lymphocytes # 0.4 L (1.0-4.8) k/uL Sodium 132 L (137-145) mmol/L BUN 28 H (7-17) mg/dL Glucose 173 H (74-99) mg/dL POC Glucose (mg/dL) 188 H (70-110) mg/dL Calcium 7.3 L (8.4-10.2) mg/dL
--- NOTE | 2022-03-16 08:28 | P.PN ---
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 Patient is currently resting in bed. Patient states her pain is controlled on current regimen. Patient reports a "Halo" headache. She is to be laying flat, bed-rest. She has been performing bed exercises without difficulty. Patient does have complaint of oral irritation, medications will be added. Negative for oral thrush. Surgical dressing is clean dry and intact. Warren catheter and FMS is present and patent. She denies any fever/chills, nausea/vomiting, or chest pain. Objective - Vital Signs Vital signs: Vital Signs Temp 97.4 F L 03/16/22 00:00 Pulse 77 03/16/22 07:00 Resp 8 L 03/16/22 07:00 BP 133/78 03/16/22 07:00 Pulse Ox 96 03/16/22 07:00 FiO2 35 03/10/22 10:13 Intake & Output 03/15/22 03/16/22 03/16/22 18:59 06:59 18:59 Intake Total 1240 110 10 Output Total 1994 1685 Balance -755 1576 10 Weight 127.8 kg 127.2 kg Intake: IV 390 110 10 Caffeine-Sodium Benzoate 100 500 mg In Sodium Chloride 0.9% 100 ml @ 1002 mls/ hr IVPB ONCE ONE Rx#: [id number] Cefepime 2 gm In Sodium 100 100 Chloride 0.9% 100 ml @ 25 mls/hr IVPB Q12H [facility] Rx# :[id number] Sodium Chloride 0.9% 1, 90 10 10 000 ml @ 10 mls/hr IV . Q24H [facility] Rx#:[id number] Sodium Ferric Gluconat- 100 Sucrose 125 mg In Sodium Chloride 0.9% 100 ml @ 100 mls/hr IVPB DAILY [facility] Rx#:[id number] Oral 850 Output: Drainage 360 Right hemovac 360 Urine 1635 1681 Stool 5 Other: Voiding Method Indwelling Catheter Indwelling Catheter ABP, PAP, CO, CI - Last Documented Arterial Blood Pressure 158/70 - Exam Her exam today is relatively stable. Drain was discontinued 03/15/22 and new surgical dressing applied with Ioband to seal it off. PICC line placed yesterday afternoon 03/15/22 to LUE. PHYSICAL EXAMINATION: Vitals: BP 133/78, heart rate 77 and currently Aflutter, SpO2 96% on room air, Resp 15, temperature normal General: Awake, alert, appropriate for age, in no acute distress. HEENT: No changes Extremities: Skin warm and dry without no acute lesions, coloration, temperature, skin intact, no tenderness or erythema. Integument: Surgical incisions: Dressings CDI Warren Cath present and patent FMS present and patent Palpation: Special findings: pain with palpation of the right breast area with large hematoma noted as well as anterior chest wall. VASCULAR STATUS : Wrist Pulses: [2/4 bilateral radial and ulnar] Pedal Pulses: [2/4 bilateral DP and PT] Color: [Normal] Edema: Improved in arms and hands. NEUROLOGIC EXAMINATION: Mental Status: Awake and alert, oriented,but slow with normal attention, concentration and memory, and fluent, he has slow speech Cranial Nerves: I: Olfactory not tested. II: Visual acuity normal, no visual field deficit noted with confrontation. III,IV: Normal pupillary reflexes & intact extraocular movements without nystagmus. V,: Intact symmetrical facial sensation. VII: Intact symmetrical facial motor movement VIII: Hearing intact. IX,X: Intact gag, swallow, & normal voice. XI: Sternocleidomastoid, trapezius function intact. XII: Tongue midline with normal movements. Special Tests: L'hermitte's Sign: Absent Straight Leg Raising: Absent Bilateral Motor Exam (0-5/5, N/T) STRENGTH 4+ out of 5 strength in upper extremity's bilaterally all major muscle groups without focal deficits generalized weakness 4- to 5 strength bilateral lower extremities all major muscle groups with generalized weakness no focal deficits. She is weak in her hip flexors currently. REFLEXES Upper Extremity: RIGHT [2]/4 LEFT [2]/4 Lower Extremity: RIGHT [2]/4 LEFT [2]/4 Pathological Reflexes Warren's: RIGHT [Absent] LEFT [Absent] Babinski: RIGHT [Absent] LEFT [Absent] Clonus: RIGHT [None] LEFT [None] SENSORY Intact Gait and Functional Evaluation: Lay Flat, Bedrest - Labs CBC & Chem 7: 03/16/22 05:30 03/16/22 06:11 Labs: Abnormal Lab Results - Last 24 Hours (Table) 03/15/22 03/15/2222 Range/Units 11:51 16:36 20:00 RBC (3.80-5.40) m/uL Hgb (11.4-16.0) gm/dL Hct (34.0-46.0) % RDW (11.5-15.5) % Plt Count (150-450) k/uL Neutrophils # (1.3-7.7) k/uL Lymphocytes # (1.0-4.8) k/uL Sodium (137-145) mmol/L BUN (7-17) mg/dL Glucose (74-99) mg/dL POC Glucose (mg/dL) 237 H 247 H 232 H (70-110) mg/dL Calcium (8.4-10.2) mg/dL 03/16/22 03/16/22 03/16/22 Range/Units 05:30 06:11 06:40 RBC 2.89 L (3.80-5.40) m/uL Hgb 8.9 L D (11.4-16.0) gm/dL Hct 27.0 L (34.0-46.0) % RDW 17.4 H (11.5-15.5) % Plt Count 112 L (150-450) k/uL Neutrophils # 9.7 H (1.3-7.7) k/uL Lymphocytes # 0.4 L (1.0-4.8) k/uL Sodium 132 L (137-145) mmol/L BUN 28 H (7-17) mg/dL Glucose 173 H (74-99) mg/dL POC Glucose (mg/dL) 188 H (70-110) mg/dL Calcium 7.3 L (8.4-10.2) mg/dL Assessment and Plan Assessment: 1. 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 Status post 7 units PRBC and 1 pack platelets -bilateral lower extremity weakness, status post multiple controlled falls in- house -Enterobacter sepsis, UTI -status post cardiac arrest Plan: -Appreciate technology applications consultant and team management PCC and medicine -Appreciate cardiothoracic, Gen. surgery, nephrology, ID evaluations -Continue Activity: Lay flat, Bed rest. Turn q2. Continue in bed therapy with ankle pumps to motions but squeezes quad thrusts and are motions. -Daily proning 5-10 min work up to 10 -Cont Abx for duration of stay -Caffiene daily 200 mg daily -Pain control: Adequate today ( Tylenol 1000 mg MEHUL, Oxy IR q4 hrs 10-15 mg titrated to pain (pt been on [place] for 20 yrs), Cont Gabapentin,) -Acetazolamide 250mg daily -Meds: reviewed -Trend labs -Transfusions to vitals -GI ppx: senna, Miralax -Continue Warren changed per protocol -Cont with FBS -DVT PPX: Mechanical only -Hygiene: Maintain dressing clean and dry. Meticulous cleaning after BMs away from incision site patient has had several instances on the floor where she was covered and bowel movement as well as urine up to her shoulders on her back. The wound needs to be kept meticulously clean. -Encourage IS 10x/hr -Will follow
[2022-03-16] MEDS: FUROSEMIDE 10 MG/ML 4 ML VIAL IV SCH ×2 (08:36→20:02)
[2022-03-16] MEDS: PANTOPRAZOLE 40 MG/10 ML VIAL IVP SCH (08:36)
[2022-03-16] MEDS: GABAPENTIN 400 MG CAP PO SCH ×3 (08:37→21:01)
[2022-03-16] MEDS: METOPROLOL TARTRATE 50 MG TAB PO SCH ×3 (08:37→21:02)
[2022-03-16] MEDS: DULoxetine HCL 60 MG CAPSULE.DR PO SCH (08:37)
[2022-03-16] MEDS: ATORVASTATIN 10 MG TAB PO SCH (08:37)
[2022-03-16] MEDS: SPIRONOLACTONE 25 MG TAB PO SCH (08:37)
[2022-03-16] MEDS: lisinopriL 5 MG TAB PO SCH (08:37)
[2022-03-16] MEDS: AMIODARONE 200 MG TAB PO SCH ×2 (08:37→20:02)
[2022-03-16] MEDS: SODIUM FERRIC GLUCONAT-SUCROSE 125 MG in SODIUM CHLORIDE 0.9% 100 ML IVPB SCH (08:38)
[2022-03-16] MEDS: acetaZOLAMIDE 250 MG TAB PO SCH (08:38)
[2022-03-16] MEDS: MAG HYDROX/AL HYDROX/SIMETH 30 ML, diphenhydrAMINE ELIXIR 75 MG, LIDOCAINE VISCOUS 2% 3... PO SCH ×9 (10:49→21:55)
[2022-03-16] MEDS: SODIUM CHLORIDE 0.9% 1,000 ML IV SCH (10:50)
[2022-03-16 11:11] LABS: Glucose,Whole Blood 180 mg/dL (70-110)
--- NOTE | 2022-03-16 11:22 | P.PN ---
Subjective Progress Note Date: 03/16/22 Patient denying any acute complaints. She stated that she still has a headache whenever she tries to move. Objective - Vital Signs Vital signs: Vital Signs Temp 97.8 F 03/16/22 08:00 Pulse 75 03/16/22 11:00 Resp 10 L 03/16/22 11:00 BP 112/85 03/16/22 11:00 Pulse Ox 98 03/16/22 11:00 FiO2 35 03/10/22 10:13 Intake & Output 03/15/22 03/16/22 03/16/22 18:59 06:59 18:59 Intake Total 1240 110 50 Output Total 1994 7865 335 Balance -818 -9380 -035 Weight 127.8 kg 127.2 kg Intake: IV 390 110 50 Caffeine-Sodium Benzoate 100 500 mg In Sodium Chloride 0.9% 100 ml @ 1002 mls/ hr IVPB ONCE ONE Rx#: [id number] Cefepime 2 gm In Sodium 100 100 Chloride 0.9% 100 ml @ 25 mls/hr IVPB Q12H [facility] Rx# :[id number] Sodium Chloride 0.9% 1, 90 10 50 000 ml @ 10 mls/hr IV . Q24H [facility] Rx#:[id number] Sodium Ferric Gluconat- 100 Sucrose 125 mg In Sodium Chloride 0.9% 100 ml @ 100 mls/hr IVPB DAILY [facility] Rx#:[id number] Oral 850 Output: Drainage 360 Right hemovac 360 Urine 1635 1681 675 Stool 5 Other: Voiding Method Indwelling Catheter Indwelling Catheter Indwelling Catheter ABP, PAP, CO, CI - Last Documented Arterial Blood Pressure 158/70 - Exam General examination - Alert and Oriented 3 in NAD, appears chronically debilitated Heart - + S1S2 no murmurs Lungs - diminished breath sounds bilaterally Abdomen soft NT ND +ve BS Extremities - +1 pitting edema bilaterally MOLDER - Moving all 4 extremities spontaneously Psych - Calm and cooperative - Labs CBC & Chem 7: 03/16/22 05:30 03/16/22 06:11 Labs: Abnormal Lab Results - Last 24 Hours (Table) 03/15/22 03/15/22 03/15/22 Range/Units 11:51 16:36 20:00 RBC (3.80-5.40) m/uL Hgb (11.4-16.0) gm/dL Hct (34.0-46.0) % RDW (11.5-15.5) % Plt Count (150-450) k/uL Neutrophils # (1.3-7.7) k/uL Lymphocytes # (1.0-4.8) k/uL Sodium (137-145) mmol/L BUN (7-17) mg/dL Glucose (74-99) mg/dL POC Glucose (mg/dL) 237 H 247 H 232 H (70-110) mg/dL Calcium (8.4-10.2) mg/dL 03/16/22 03/16/22 03/16/22 Range/Units 05:30 06:11 06:40 RBC 2.89 L (3.80-5.40) m/uL Hgb 8.9 L D (11.4-16.0) gm/dL Hct 27.0 L (34.0-46.0) % RDW 17.4 H (11.5-15.5) % Plt Count 112 L (150-450) k/uL Neutrophils # 9.7 H (1.3-7.7) k/uL Lymphocytes # 0.4 L (1.0-4.8) k/uL Sodium 132 L (137-145) mmol/L BUN 28 H (7-17) mg/dL Glucose 173 H (74-99) mg/dL POC Glucose (mg/dL) 188 H (70-110) mg/dL Calcium 7.3 L (8.4-10.2) mg/dL 03/16/22 Range/Units 11:09 RBC (3.80-5.40) m/uL Hgb (11.4-16.0) gm/dL Hct (34.0-46.0) % RDW (11.5-15.5) % Plt Count (150-450) k/uL Neutrophils # (1.3-7.7) k/uL Lymphocytes # (1.0-4.8) k/uL Sodium (137-145) mmol/L BUN (7-17) mg/dL Glucose (74-99) mg/dL POC Glucose (mg/dL) 180 H (70-110) mg/dL Calcium (8.4-10.2) mg/dL Assessment and Plan Assessment: #Septic shock on admission #Enterobacter cloacae bacteremia with likly source UTI #Enterobacter cloacae UTI #Lactic acidosis Currently off mechanical ventilation and pressors. Continue cefepime as per per infectious disease. C.difficile negative. Telemetry monitoring. Pulmonology/ICU on board. #Acute blood loss anemia likely sec to GI bleeding from ischemic colitis #Right breast hematoma secondary to CPR from cardiac arrest She is status post total of 7 units of PRBC transfusion. EGD showed mild gastritis and mild esophagitis with no active bleeding Surgery recommends to continue to hold anticoagulation Continue with PPI CT surgery recommends conservative management of hematoma. She is iron deficient, resume IV Ferrlecit #Abdominal pain #IIeus versus SBO Gen. surgery advancing diet Patient having diarrhea #Acute kidney injury #Hyponatremia Resolved Renal US shows no hydronephrosis on the R, enlarged cyst in the L kidney measuring up to 8.3 cm. BETHANY likely due to ATN from septic shock and hypoNa from poor oral intake. Nephrology on board. #Transaminitis Improved Likely ischemic hepatitis secondary to shock liver. Improved #Atrial fibrillation #Atrial flutter with RVR Anticoagulation discontinued due to blood loss. Patient currently on metoprolol 50 mg 3 times a day Patient also on amiodarone Patient is still tachycardic in the 100s #Acute on chronic systolic CHF chronic Echo shows EF 35-40% with severe pulmonary HTN, moderate MR. Patient will need ischemic workup. Patient started on ACEi and Aldactone Continue IV Lasix as per audiology Cardiology on board. #T10 to pelvis decompression with fusion #Post-op pain #Status post second look wound debridement on 03/09 Management per Orthopedic surgery. Gabapentin, Decadron. Continue with oxycodone PRN. Patient has no stairs and planning on going home, she has nearby help from [employer] but lives alone. Patient currently on bed rest. Awaiting for orthopedic surgery to clear patient for PT OT #Aborted sudden cardiac Cardiology on board. Echocardiogram shows EF 35-40% with moderate MR. #Hyperglycemia likely sec to steroids No official DM diagnosis Levemir 20 units daily. A1c is 6, likely prediabetic, will benefit from metformin upon discharge. #Right diaphragmatic paralysis Aggressive pulmonary hygiene. Pulmonology on board. #HLD Statin. #HTN Resume lisinopril DVT prophylaxis: Holding anticoagulation until cleared by orthopedic surgery
[2022-03-16 11:34] LABS: Glucose,Whole Blood 175 mg/dL (70-110)
--- NOTE | 2022-03-16 15:41 | P.PN ---
Subjective Progress Note Date: 03/16/22 Principal diagnosis: UTI and bacteremia Patient is a 71-year-old female with a past medical history difficult for atrial fibrillation flutter hypertension hyperlipidemia hypothyroidism right breast cancer electively admitted to the hospital more than 2 weeks ago 022 for T10 to lumbar spine revision decompression and posterior lateral interbody fusion, patient did have a episode of hypotension and elevated white count requiring admission to the ICU patient did have a positive UA and gram- negative bacteremia and is scheduled for exploration of the thoracolumbar incision completed on 03/09/2022 with apparently no evidence of any abscess as reported by the nursing staff On today's evaluation that is 03/16/2022 the patient continues to be afebrile , the patient is breathing comfortably on room air, the patient did have occasional dry cough, the patient denies nausea no vomiting no abdominal pain and no worsening back pain, the patient diarrhea has slowed down per the nursing staff Objective - Vital Signs Vital signs: Vital Signs Temp 97.5 F L 03/16/22 12:00 Pulse 76 03/16/22 13:00 Resp 20 03/16/22 13:00 BP 130/83 03/16/22 13:00 Pulse Ox 98 03/16/22 11:00 FiO2 35 03/10/22 10:13 Intake & Output 03/15/22 03/16/22 03/16/22 18:59 06:59 18:59 Intake Total 1240 110 80 Output Total 1994 1685 1125 [facility]781 [phone] Weight 127.8 kg 127.2 kg Intake: IV 390 110 80 Caffeine-Sodium Benzoate 100 500 mg In Sodium Chloride 0.9% 100 ml @ 1002 mls/ hr IVPB ONCE ONE Rx#: [id number] Cefepime 2 gm In Sodium 100 100 Chloride 0.9% 100 ml @ 25 mls/hr IVPB Q12H [facility] Rx# :[id number] Sodium Chloride 0.9% 1, 90 10 80 000 ml @ 10 mls/hr IV . Q24H [facility] Rx#:[id number] Sodium Ferric Gluconat- 100 Sucrose 125 mg In Sodium Chloride 0.9% 100 ml @ 100 mls/hr IVPB DAILY [facility] Rx#:[id number] Oral 850 Output: Drainage 360 Right hemovac 360 Urine 1635 1681 1125 Stool 5 Other: Voiding Method Indwelling Catheter Indwelling Catheter Indwelling Catheter ABP, PAP, CO, CI - Last Documented Arterial Blood Pressure 158/70 - Exam GENERAL DESCRIPTION: An elderly female lying in bed in no distress RESPIRATORY SYSTEM: Unlabored breathing , decreased breath sounds at bases HEART: S1 S2 regular rate and rhythm , ABDOMEN: Soft , no tenderness EXTREMITIES: Diffuse swelling bilateral lower extremity - Labs CBC & Chem 7: 03/16/22 05:30 03/16/22 06:11 Labs: Abnormal Lab Results - Last 24 Hours (Table) 03/15/22 03/15/22 03/16/22 Range/Units 16:36 20:00 05:30 RBC 2.89 L (3.80-5.40) m/uL Hgb 8.9 L D (11.4-16.0) gm/dL Hct 27.0 L (34.0-46.0) % RDW 17.4 H (11.5-15.5) % Plt Count 112 L (150-450) k/uL Neutrophils # 9.7 H (1.3-7.7) k/uL Lymphocytes # 0.4 L (1.0-4.8) k/uL Sodium (137-145) mmol/L BUN (7-17) mg/dL Glucose (74-99) mg/dL POC Glucose (mg/dL) 247 H 232 H (70-110) mg/dL Calcium (8.4-10.2) mg/dL 03/16/22 03/16/22 03/16/22 Range/Units 06:11 06:40 11:09 RBC (3.80-5.40) m/uL Hgb (11.4-16.0) gm/dL Hct (34.0-46.0) % RDW (11.5-15.5) % Plt Count (150-450) k/uL Neutrophils # (1.3-7.7) k/uL Lymphocytes # (1.0-4.8) k/uL Sodium 132 L (137-145) mmol/L BUN 28 H (7-17) mg/dL Glucose 173 H (74-99) mg/dL POC Glucose (mg/dL) 188 H 180 H (70-110) mg/dL Calcium 7.3 L (8.4-10.2) mg/dL 12/15/22 Range/Units 11:33 RBC (3.80-5.40) m/uL Hgb (11.4-16.0) gm/dL Hct (34.0-46.0) % RDW (11.5-15.5) % Plt Count (150-450) k/uL Neutrophils # (1.3-7.7) k/uL Lymphocytes # (1.0-4.8) k/uL Sodium (137-145) mmol/L BUN (7-17) mg/dL Glucose (74-99) mg/dL POC Glucose (mg/dL) 175 H (70-110) mg/dL Calcium (8.4-10.2) mg/dL Assessment and Plan (1) Gram-negative bacteremia Current Visit: Yes Status: Acute Code(s): R78.81 - BACTEREMIA SNOMED Code(s): 210338423823 Plan: 1patient with SIRS/sepsis in this patient who has been in the hospital for 2 weeks with elective admission to the hospital for thoracolumbar spine revision did have a cardiac arrest requiring resuscitation now with evidence of significant hypertension ileus and elevated white count source possible UTI as the patient urine as well as blood cultures are growing Enterobacter 2patient slowly clinically improving and the patient white count has normalized, patient will continue with the cefepime and monitor clinical course closely Time with Patient: Less than 30
[2022-03-16 16:27] LABS: Glucose,Whole Blood 168 mg/dL (70-110)
[2022-03-16 17:15] LABS: Glucose,Whole Blood 155 mg/dL (70-110)
[2022-03-16 19:59] LABS: Glucose,Whole Blood 296 mg/dL (70-110)
[2022-03-17] MEDS: CEFEPIME 2 GM in SODIUM CHLORIDE 0.9% 100 ML IVPB SCH ×2 (02:27→16:58)
[2022-03-17] MEDS: SODIUM CHLORIDE 0.9% 1,000 ML IV SCH (04:06)
[2022-03-17] MEDS: ACETAMINOPHEN TAB 500 MG TAB PO SCH ×4 (05:56→23:19)
[2022-03-17] MEDS: CYCLOBENZAPRINE 10 MG TAB PO PRN ×3 (05:57→20:57)
[2022-03-17 06:43] LABS: Glucose,Whole Blood 167 mg/dL (70-110)
[2022-03-17] MEDS: INSULIN ASPART (NovoLOG) 100 UNIT/ML VIAL SQ SCH ×4 (06:44→20:58)
[2022-03-17] MEDS: INSULIN DETEMIR (LEVEMIR) 100 UNIT/ML SYR SQ SCH (06:45)
[2022-03-17] MEDS: LEVOTHYROXINE 88 MCG TAB PO SCH (06:45)
[2022-03-17 07:30] LABS: African American GFR (CKD) >90 (>60 ml/min/1.73 sqM); Anion Gap 5 mmol/L; Blood Urea Nitrogen 26 mg/dL (7-17); Calcium 7.7 mg/dL (8.4-10.2); Carbon Dioxide 26 mmol/L (22-30); Chloride 100 mmol/L (98-107); Glucose 164 mg/dL (74-99); Non-African American GFR(CKD) 90 (>60 ml/min/1.73 sqM); Potassium 4.5 mmol/L (3.5-5.1); Sodium 131 mmol/L (137-145)
[2022-03-17 07:32] LABS: Anisocytosis Slight; Basophils % (A) 0 %; Eosinophils % (A) 0 %; HCT 31.1 % (34.0-46.0); HGB 10.5 gm/dL (11.4-16.0); Hypochromasia Slight; Lymphocytes # (A) 0.5 k/uL (1.0-4.8); Lymphocytes % (A) 6 %; MCH 31.1 pg (25.0-35.0); MCHC 33.7 g/dL (31.0-37.0); MCV 92.4 fL (80.0-100.0); Mean Platelet Volume 10.5; Monocytes # (A) 0.3 k/uL (0-1.0); Monocytes % (A) 3 %; Neutrophils # (A) 7.5 k/uL (1.3-7.7); Neutrophils % (A) 90 %; Platelet Count 132 k/uL (150-450); Poikilocytosis Slight; RBC 3.37 m/uL (3.80-5.40); RDW 17.3 % (11.5-15.5); WBC 8.4 k/uL (3.8-10.6)
--- NOTE | 2022-03-17 07:36 | P.OP ---
Date of Procedure: 03/09/22 Preoperative Diagnosis: 1. Wound dehiscence, Continued drainage 2. Possible CSF leak 3. UGI bleed 4. Complex medical patient Postoperative Diagnosis: 1. Wound dehiscence, Continued drainage 2. Possible CSF leak 3. UGI bleed 4. Complex medical patient Procedure(s) Performed: 1. Irrigation and debridment of thoracolumbar and pelvic skin, soft tissue, muscle, bone and spine 60 x 20 x 15 cm using the following Knife used for debridement of sutures and sloughed soft tissue Curette used for bony and deep debridement Rongure for muscle, soft tissue and bone debridement 2. Dural repair with patch graft L1 Left root axilla due to apparent new tr action injury Implants: -Duragen -Tisseal Anesthesia: GETA Surgeon: Thom Alexander Concession Stand Attendant #1: Eli Sheridan (Was present and assisted with entire case from positioning to closure and dressing placement) Estimated Blood Loss (ml): 50 IV fluids (ml): 1,500 (2 uPRBC, 500 albumin, LR, 1 pack platelets) Urine output (ml): 150 Pathology: none sent Condition: stable Disposition: ICU Indications for Procedure: this is a 71-year-old female who originally presented to days ago for an elective T10 to pelvis with correction of her 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 She underwent this surgery and had the episode at the end of her surgery of an aborted cardiac arrest. She has been recovering and initially recovered fairly well from this actually with no deficits. She had been up and trying to move around the hospital rooms over the past week with physical therapy however she is very weak and in a different position she does not use to. Over this time she has had several slow down or fall type events where she ended up flat on her back or on her side due to inadequate help with moving her. She was jeimy salma as Maxis cyst but was gotten up again and had a slump or fall down. She never hit her head x-rays and imaging afterward revealed stable findings however after that she started draining from her wound excessively a clearish fluid as well as having symptoms of headache nausea vomiting. She continued to have issues clinically and one morning on rounds she was found to be very lethargic and was having diffuse abdominal pain. She was transferred to the ICU and immediately had a CAT scan of her abdomen and pelvis which showed possible bowel ischemia possible SBO. She then proceeded to have multiple bloody stools and her hemoglobin dropped significantly. She was also found to have a large hematoma on her breast on the right-hand side. At this point general surgery cardiac surgery over a critical care were all consulted. There is nothing to be done about the hematoma on her breast just needs to resolve. General surgery did a bedside scope to look for any bleeding duodenal or gastric ulcers and these findings were negative. She continued to have colonic stools and labile hemoglobin and hematocrit. She was transfused appropriately for this as well as fluids and albumin. We had multiple discussions with the family due to the nature of her drainage that she likely dislodged a portion of her dura or re- tore and that we would need to go back and fix this. They understood the risks given her previous surgery as well as the complication possibilities and we discussed them at length. We discussed these with the patient as well and she agreed to revision surgery with dural repair. During this timeframe she was also found to have septicemia which is likely due to the ischemic bowel however cannot be ruled out that her incision was starting with an infection due to the multiple bowel movements as well as the poor hygiene on the floor with involvement of her surgical wound. Again this was discussed with the family at length with discussed the risks of surgery including risk of bleeding infection damage to surrounding tissue continued dural leak need for further surgery risk of anesthesia up to and including and they were willing to assume these risks and all the risks of surgery. The patient and her family were willing to proceed. Description of Procedure: The patient was seen and examined in the preoperative area. All preoperative protocols were followed. Informed consent was obtained risks and benefits of the procedure were discussed at length. Risks including bleeding infection damage to the surrounding tissue and risk of reoperation were discussed with the patient. Risk of anesthesia up to and including was a discussed with the patient. These are outlined in the risk review. They were willing to accept these risks and all of the risks of surgery. The patient was given a weight- based dose of antibiotics in the form of vancomycin and cefepime from a 4. The patient was seen and evaluated by the anesthesia team who deemed them fit for surgery. The site was marked, the patient was willing to proceed with the procedure. The patient was transferred to the operative suite by the Department of anesth esia. They were then drifted off to sleep by the department anesthesia and GETA was performed. The patient tolerated this well. Warren catheter in place. Once confirmation of lines and ventilation the patient was transferred to a [prone Tristin table very carefully]. All bony prominences including wrists, elbows, axilla, chest, hips, and thighs, and feet were padded very well. Special attention was paid to the genitalia and these were padded accordingly. SCDs were placed on bilateral lower extremities and were connected. Arms were well padded and placed [on arm boards up and out in the 90/90 position]. Once in position, again we confirmed good ventilation capabilities and that lines were running appropriately. The patient's thoracolumbar sacral spine was then exposed. 1010s were placed outlining the incision site. Standard alcohol was used to clean the incision site and allowed to dry. C-arm was used to biomark the patient and confirm level for incision which was marked with a skin marker. Operative briefing was performed with all teams and everyone in agreement to proceed. The patient was then prepped and draped in a normal sterile fashion. Timeout was then performed and all parties were in agreement with the procedure to be performed. the wound was reopened and all sutures were removed. A clear fluid was expressed from deep within the wound. Retractors were placed and we investigated the area. The previous dural repairs around the elbow to 3 L3 4 region on the right-hand side were holding well with their dural grafts. There is no evidence of leak in this area we continued to explore with a curet. We irrigated the wound with 3 L of antibiotic solution. We then inspected more and upon inspection further on the left-hand side at L1-L2 there was a new dural tear around the root axilla and lateral portion of the dura that was approximately 1 cm. This appeared to be somewhat avulsed type tear and was not present previously. We placed a paddy over this and we continued to irrigate the wound and scraped the edges and clean any other area off. Irrigated another 3 L of antibiotic solution. After this a fat graft was taken from the subcu. This was set aside for the time being. We then took 5-0 Prolene and started with our repair. The dura was repaired using 5-0 Prolene on the side to tack pieces together. The dura was extremely thin almost tissue paper like. We fixed the axillary portion of the root back to the lateral portion of the dura as well as the remainder of that had formed. A Valsalva was performed to 40 mmHg and there was no active leak. We then took a fat graft and sewed this into position over this area for a watertight seal. Another Valsalva to 40 mmHg was performed and there was no active leak from this area. We then thoroughly irrigated the wound once again with 3 more liters of antibiotic saline solution followed by normal sterile saline. We then placed a DuraGen graft over the fixed points. This was then covered with Tisseel followed by Surgicel followed by more Tisseel and Surgicel. We performed a final Valsalva to 40 mmHg and there was no active leak. We continued any debridement. Superficially removing any further stitches and sutures. Cleaning the wound edges and freshening them. we then placed a drain deep to the fascia ensuring that it was superficial to the leaks to keep it away from the dura. We then performed a multilayered closure first in the deep fascia with #1 PDS in a [id number] fashion followed by a running unidirectional strata fix suture. There was a watertight closure. we then close the deep subcu tissue with 0 Vicryl in the superficial subcu tissue was closed with 2-0 Vicryl and the skin was closed with a running 2-0 nylon stitch. The wound edges approximated very well. The drain was set to gravity suction only. the wound was then cleaned and dressed with Adaptic 4 x 4's ABDs and tape this was then covered with an Ioban and sealed. The patient was transferred back to their hospital bed atraumatically. [Drain continued to be in good position]. Patient was then awakened and extubated by the department of anesthesia having tolerated the procedure very well with no complications. They were transferred to the postoperative care unit in stable condition. the patient was given 1 unit of blood as well as 500 of albumin and surgery and she responded very well to this. She remained stable throughout surgery without any issues.
--- NOTE | 2022-03-17 07:37 | P.PN ---
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 Patient is currently resting in bed with HOB flat, but bed is in reversed trendelenburg position. Bed needs to be flat. Patient continues to report a "Halo" headache. Patient reports brief nausea if she attempts to lift her head. She states she has been performing bed exercises without difficulty. Patient states cooling solution for oral pain has provided her relief. Surgical dressing is clean dry and intact. Warren catheter and FMS is present and patent. She denies any fever/chills or chest pain. Objective - Vital Signs Vital signs: Vital Signs Temp 97.3 F L 03/17/22 00:00 Pulse 80 03/17/22 07:00 Resp 14 03/17/22 07:00 BP 112/76 03/17/22 07:00 Pulse Ox 98 03/17/22 07:00 FiO2 35 03/10/22 10:13 Intake & Output 03/16/22 03/17/22 03/17/22 18:59 06:59 18:59 Intake Total 90 110 Output Total 1535 2665 Balance -1445 2558 Intake: IV 90 110 Sodium Chloride 0.9% 1, 90 110 000 ml @ 10 mls/hr IV . Q24H [facility] Rx#:[id number] Output: Urine 1535 2665 Other: Voiding Method Indwelling Catheter Indwelling Catheter ABP, PAP, CO, CI - Last Documented Arterial Blood Pressure 158/70 - Exam Her exam today is relatively stable. Surgical dressing will be assessed this afternoon. RN reports dressing CDI. PHYSICAL EXAMINATION: Vitals: BP 112/76, heart rate 80 and currently Aflutter, SpO2 98% on room air, Resp 14, temperature normal General: Awake, alert, appropriate for age, in no acute distress. HEENT: No changes Extremities: Skin warm and dry without no acute lesions, coloration, tempe rature, skin intact, no tenderness or erythema. Integument: Surgical incisions: Dressings CDI Warren Cath present and patent FMS present and patent Palpation: Special findings: pain with palpation of the right breast area with large hematoma noted as well as anterior chest wall. VASCULAR STATUS : Wrist Pulses: [2/4 bilateral radial and ulnar] Pedal Pulses: [2/4 bilateral DP and PT] Color: [Normal] Edema: Improved in arms and hands. NEUROLOGIC EXAMINATION: Mental Status: Awake and alert, oriented,but slow with normal attention, concentration and memory, and fluent, he has slow speech Cranial Nerves: I: Olfactory not tested. II: Visual acuity normal, no visual field deficit noted with confrontation. III,IV: Normal pupillary reflexes & intact extraocular movements without nystagmus. V,: Intact symmetrical facial sensation. VII: Intact symmetrical facial motor movement VIII: Hearing intact. IX,X: Intact gag, swallow, & normal voice. XI: Sternocleidomastoid, trapezius function intact. XII: Tongue midline with normal movements. Special Tests: L'hermitte's Sign: Absent Straight Leg Raising: Absent Bilateral Motor Exam (0-5/5, N/T) STRENGTH 4+ out of 5 strength in upper extremity's bilaterally all major muscle groups without focal deficits generalized weakness 4- to 5 strength bilateral lower extremities all major muscle groups with generalized weakness no focal deficits. She is weak in her hip flexors currently. REFLEXES Upper Extremity: RIGHT [2]/4 LEFT [2]/4 Lower Extremity: RIGHT [2]/4 LEFT [2]/4 Pathological Reflexes Warren's: RIGHT [Absent] LEFT [Absent] Babinski: RIGHT [Absent] LEFT [Absent] Clonus: RIGHT [None] LEFT [None] SENSORY Intact Gait and Functional Evaluation: Lay Flat, Bedrest - Labs CBC & Chem 7: 03/16/22 05:30 03/16/22 06:11 Labs: Abnormal Lab Results - Last 24 Hours (Table) 03/16/22 03/16/22 03/16/22 Range/Units 11:09 11:33 16:25 POC Glucose (mg/dL) 180 H 175 H 168 H (70-110) mg/dL 03/16/22 03/16/22 03/17/22 Range/Units 17:14 19:57 06:41 POC Glucose (mg/dL) 155 H 296 H 167 H (70-110) mg/dL Assessment and Plan Assessment: 1. 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 Status post 7 units PRBC and 1 pack platelets -bilateral lower extremity weakness, status post multiple controlled falls in- house -Enterobacter sepsis, UTI -status post cardiac arrest Plan: -Appreciate sales consultant insurance and team management PCC and medicine -Appreciate cardiothoracic, Gen. surgery, nephrology, ID evaluations -Continue Activity: LAY BED FLAT, BEDREST while patient is having symptoms. May elevate to 10 degrees if she is asymptomatic. Turn q2. Continue in bed therapy with ankle pumps to motions but squeezes quad thrusts and are motions. -Daily proning 5-10 min work up to 10 -Cont Abx for duration of stay -Caffiene daily 200 mg daily -Pain control: Adequate today ( Tylenol 1000 mg MEHUL, Oxy IR q4 hrs 10-15 mg titrated to pain (pt been on [place] for 20 yrs), Cont Gabapentin,) -Acetazolamide 250mg daily -Meds: reviewed -Trend labs -Transfusions to vitals -GI ppx: senna, Miralax -Continue Warren changed per protocol -Cont with FBS -DVT PPX: Mechanical only -Hygiene: Maintain dressing clean and dry. Meticulous cleaning after BMs away from incision site patient has had several instances on the floor where she was covered and bowel movement as well as urine up to her shoulders on her back. The wound needs to be kept meticulously clean. -Encourage IS 10x/hr -Will follow
--- NOTE | 2022-03-17 08:19 | P.PN ---
Subjective Progress Note Date: 03/17/22 PROGRESS NOTE The patient is a 71-year-old female who underwent lumbar surgery on February 24 for severe stenosis, mechanical low back pain and neurogenic claudication. She has a known history of atrial flutter, atrial fibrillation. She continues to be in atrial flutter at this time with 2 to one conduction. She had an echocardiogram on February 27 that showed an ejection fraction of 35-40% with moderate mitral regurgitation. In 2018 her LV systolic function was normal. It is unclear if this deterioration is an acute event following her surgery. She feels better overall, has musculoskeletal right-sided discomfort. She is not anticoagulated because of recent bleeding. She denies any nausea or vomiting. Her blood pressure is under good control. She had positive urine culture. March 14: The patient is feeling slightly better today, she denies any chest discomfort or dizziness. She continues to be in atrial flutter with 2 to one conduction. She had episodes of her lower heart rate. She is tolerating her present medical regimen. She has no evidence of ventricular tachycardia. She continues to be in bed, she is allowed to lift her head 30 today. She has no nausea or vomiti ng. She has no dizziness or palpitations. Her right-sided chest discomfort has improved. Her anticoagulation remains on hold because of her anemia and hematoma. March 15: Patient continues to have soreness but better. She has mild nausea but no significant dyspnea. Her atrial flutter rate is under better control. She denies any chest discomfort, dizziness or palpitations. She continues to be at bedrest. Her blood pressures been stable on the present regimen. March 16: The patient continues to be in atrial flutter with controlled ventricular response. She feels better overall but continues to feel fatigued. She denies any chest discomfort, dizziness or palpitations. She continues to be at bedrest because of a leak. Her urine output is stable. She is not anticoagulated yet per surgical team. Hemodynamically she is stable. March 17: Patient is feeling well overall remains in bed flat, she continues to be in atrial flutter with controlled ventricular response. She has not been anticoagulated per surgical team. She denies any chest discomfort, her breathing is better. She denies any dizziness or palpitations, no nausea. She is tolerating by mouth. She has no fever. Medications: Amiodarone 200 mg twice a day, Lipitor 10 mg daily, Lasix 40 mg IV every 12 h ours, metoprolol 50 mg 3 times a day, Protonix. Lisinopril 5 mg daily, Aldactone 25 mg daily PHYSICAL EXAMINATION: Blood pressure 112/70, heart rate 80, afebrile LUNGS: Clear to auscultation HEART: Irregular rate and rhythm, , tachycardic S1, S2. No S3. No systolic murmur ABDOMEN: Soft, nontender, no organomegaly, obese EXTREMETIES: Trace to +1 edema LAB: BUN 26, creatinine 0.6, potassium 4.5. Hemoglobin 10.5. IMPRESSION: 1. Status post back surgery 2. Atrial flutter with controlled ventricular response, not anticoagulated because of recent bleeding 3. Anemia, stable 4. Cardiomyopathy of unknown etiology, no evidence of acute CHF at this time 5. Bacteremia 6. Acute renal injury resolved 7. Morbid obesity 8. Hyperlipidemia 9. Hypertension, controlled PLAN: 1. Awaiting the input of the surgical team regarding anticoagulation 2. Continue beta nic and amiodarone 3. Physical activity per surgical team 4. Depending on her progress further recommendations will be made Objective - Vital Signs Vital signs: Vital Signs Temp 97.3 F L 03/17/22 00:00 Pulse 80 03/17/22 07:00 Resp 14 03/17/22 07:00 BP 112/76 03/17/22 07:00 Pulse Ox 98 03/17/22 07:00 FiO2 35 03/10/22 10:13 Intake & Output 03/16/22 03/17/22 03/17/22 18:59 06:59 18:59 Intake Total 90 110 Output Total 1535 2665 Balance -7428 -5508 Intake: IV 90 110 Sodium Chloride 0.9% 1, 90 110 000 ml @ 10 mls/hr IV . Q24H [facility] Rx#:[id number] Output: Urine 153 2665 Other: Voiding Method Indwelling Catheter Indwelling Catheter ABP, PAP, CO, CI - Last Documented Arterial Blood Pressure 158/70 - Labs CBC & Chem 7: 03/17/22 05:54 03/17/22 05:54 Labs: Abnormal Lab Results - Last 24 Hours (Table) 03/16/22 03/16/22 03/16/22 Range/Units 11:09 11:33 16:25 RBC (3.80-5.40) m/uL Hgb (11.4-16.0) gm/dL Hct (34.0-46.0) % RDW (11.5-15.5) % Plt Count (150-450) k/uL Lymphocytes # (1.0-4.8) k/uL Sodium (137-145) mmol/L BUN (7-17) mg/dL Glucose (74-99) mg/dL POC Glucose (mg/dL) 180 H 175 H 168 H (70-110) mg/dL Calcium (8.4-10.2) mg/dL 03/16/22 03/16/22 03/17/22 Range/Units 17:14 19:57 05:54 RBC (3.80-5.40) m/uL Hgb (11.4-16.0) gm/dL Hct (34.0-46.0) % RDW (11.5-15.5) % Plt Count (150-450) k/uL Lymphocytes # (1.0-4.8) k/uL Sodium 131 L (137-145) mmol/L BUN 26 H (7-17) mg/dL Glucose 164 H (74-99) mg/dL POC Glucose (mg/dL) 155 H 296 H (70-110) mg/dL Calcium 7.7 L (8.4-10.2) mg/dL 03/17/22 03/17/22 Range/Units 05:54 06:41 RBC 3.37 L (3.80-5.40) m/uL Hgb 10.5 L (11.4-16.0) gm/dL Hct 31.1 L (34.0-46.0) % RDW 17.3 H (11.5-15.5) % Plt Count 132 L (150-450) k/uL Lymphocytes # 0.5 L (1.0-4.8) k/uL Sodium (137-145) mmol/L BUN (7-17) mg/dL Glucose (74-99) mg/dL POC Glucose (mg/dL) 167 H (70-110) mg/dL Calcium (8.4-10.2) mg/dL
[2022-03-17] MEDS ORDERED: CAFFEINE-SODIUM BENZOATE 500 MG in SODIUM CHLORIDE 0.9% 100 ML IVPB ONE (08:30)
[2022-03-17] MEDS: SODIUM FERRIC GLUCONAT-SUCROSE 125 MG in SODIUM CHLORIDE 0.9% 100 ML IVPB SCH (09:53)
[2022-03-17] MEDS: lisinopriL 5 MG TAB PO SCH (10:05)
[2022-03-17] MEDS: DULoxetine HCL 60 MG CAPSULE.DR PO SCH (10:05)
[2022-03-17] MEDS: AMIODARONE 200 MG TAB PO SCH ×2 (10:05→20:57)
[2022-03-17] MEDS: GABAPENTIN 400 MG CAP PO SCH ×3 (10:06→20:57)
[2022-03-17] MEDS: FUROSEMIDE 10 MG/ML 4 ML VIAL IV SCH ×2 (10:06→20:57)
[2022-03-17] MEDS: METOPROLOL TARTRATE 50 MG TAB PO SCH ×3 (10:06→20:57)
[2022-03-17] MEDS: DEXAMETHASONE SOD PHOSPHATE 4 MG/ML 1 ML VIAL IVP SCH ×3 (10:06→23:19)
[2022-03-17] MEDS: SPIRONOLACTONE 25 MG TAB PO SCH (10:06)
[2022-03-17] MEDS: PANTOPRAZOLE 40 MG/10 ML VIAL IVP SCH (10:06)
--- NOTE | 2022-03-17 10:07 | CDI ---
Documentation Clarification Form Date: 03/17/2022 09:46:54 AM From: Sheila Dennis RN, CCDS Admit Date: 02/24/2022 05:34:00 AM Patient Name: Gabrielle Gee Visit Number: [id number] Discharge Date: ATTENTION: The Clinical Documentation Specialists (CDI) and [facility] Coding Staff appreciate your assistance in clarifying documentation. Please respond to the clarification below the line at the bottom and electronically sign. The CDI & [facility] Coding staff will review the response and follow-up if needed. Please note: Queries are made part of the Legal Health Record. If you have any questions, please contact the author of this message via ITS. Dr. Codey Schneider Possible UTI is documented in the ongoing progress notes starting on 03/08/22. Patient has a Warren catheter inserted date of 02/24/22. Additional clarification regarding the etiology of the UTI is requested. 03/15 Internal medicine progress notes: Enterobacter cloacae bacteremia with likely source UTI History/Risk Factors: Neurogenic claudication, Lumbar spondylosis, Atrial Fibrillation Atrial Flutter, Hypertension, chronic low back pain Clinical Indicators: 71-year-old female underwent extensive lumbar spine surgery Progress note: 03/07 Re-Eval at bedside had BP 78/47, heart rate 60. She appeared more lethargic and states her chest pain had resolved. She did complain of dizziness and shortness of breath. Transferred back to ICU. She was ruled in for sepsis and UTI. 03/07 Urinalysis: Urine appearance Turbid, Rr Leukocyte Esterase Large Urine WBC 1O3 03/07 Urine culture: Enterobacter cloacae Lab results: 03/06 WBC 26.1, WBC 03/07 Treatment: ICU Monitoring Cefepime HCL 2 GM IVPB Q 12 HRS 03/07 Decadron 2 MG IVP Q 8 HRS 03/06 Vancomycin 2,000 MG IVPB Q 24 HRS 03/07 (PTD) .9NS 1000 Bolus X3 03/07, Levophed gtt (per orders 03/07-03/10 Please clarify the etiology of the UTI, if known: [ x] Warren catheter [ ] UTI not related to catheter [ ] Other condition, please specify [ ] Unable to determine (Template Last Revised: May 2020) MTDD
[2022-03-17] MEDS: MAG HYDROX/AL HYDROX/SIMETH 30 ML, diphenhydrAMINE ELIXIR 75 MG, LIDOCAINE VISCOUS 2% 3... PO SCH ×9 (10:09→23:19)
[2022-03-17] MEDS: acetaZOLAMIDE 250 MG TAB PO SCH (10:09)
[2022-03-17] MEDS: ATORVASTATIN 10 MG TAB PO SCH (10:11)
--- NOTE | 2022-03-17 11:47 | P.PN ---
Subjective Progress Note Date: 03/17/22 Patient says that she continues to have headache. She is still on bedrest as per orthopedic instructions. Objective - Vital Signs Vital signs: Vital Signs Temp 97.5 F L 03/17/22 08:00 Pulse 90 03/17/22 10:00 Resp 15 03/17/22 10:00 BP 130/57 03/17/22 10:00 Pulse Ox 97 03/17/22 10:00 FiO2 35 03/10/22 10:13 Intake & Output 03/16/22 03/17/22 03/17/22 18:59 06:59 18:59 Intake Total 90 110 230 Output Total 1535 2665 300 Balance -1445 -2555 -70 Intake: IV 90 110 230 Caffeine-Sodium Benzoate 100 500 mg In Sodium Chloride 0.9% 100 ml @ 1002 mls/ hr IVPB ONCE ONE Rx#: [id number] Sodium Chloride 0.9% 1, 90 110 30 000 ml @ 10 mls/hr IV . Q24H [facility] Rx#:[id number] Sodium Ferric Gluconat- 100 Sucrose 125 mg In Sodium Chloride 0.9% 100 ml @ 100 mls/hr IVPB DAILY [facility] Rx#:[id number] Output: Urine 1535 2665 300 Other: Voiding Method Indwelling Catheter Indwelling Catheter Indwelling Catheter ABP, PAP, CO, CI - Last Documented Arterial Blood Pressure 158/70 - Exam General examination - Alert and Oriented 3 in NAD, appears chronically rochelle ilitated Heart - + S1S2 no murmurs Lungs - diminished breath sounds bilaterally Abdomen soft NT ND +ve BS Extremities - +1 pitting edema bilaterally [employer] - Moving all 4 extremities spontaneously Psych - Calm and cooperative - Labs CBC & Chem 7: 03/17/22 05:54 03/17/22 05:54 Labs: Abnormal Lab Results - Last 24 Hours (Table) 03/16/22 03/16/22 03/16/22 Range/Units 16:25 17:14 19:57 RBC (3.80-5.40) m/uL Hgb (11.4-16.0) gm/dL Hct (34.0-46.0) % RDW (11.5-15.5) % Plt Count (150-450) k/uL Lymphocytes # (1.0-4.8) k/uL Sodium (137-145) mmol/L BUN (7-17) mg/dL Glucose (74-99) mg/dL POC Glucose (mg/dL) 168 H 155 H 296 H (70-110) mg/dL Calcium (8.4-10.2) mg/dL 03/17/22 03/17/22 03/17/22 Range/Units 05:54 05:54 06:41 RBC 3.37 L (3.80-5.40) m/uL Hgb 10.5 L (11.4-16.0) gm/dL Hct 31.1 L (34.0-46.0) % RDW 17.3 H (11.5-15.5) % Plt Count 132 L (150-450) k/uL Lymphocytes # 0.5 L (1.0-4.8) k/uL Sodium 131 L (137-145) mmol/L BUN 26 H (7-17) mg/dL Glucose 164 H (74-99) mg/dL POC Glucose (mg/dL) 167 H (70-110) mg/dL Calcium 7.7 L (8.4-10.2) mg/dL Assessment and Plan Assessment: #Septic shock on admission #Enterobacter cloacae bacteremia with likly source UTI #Enterobacter cloacae UTI #Lactic acidosis Currently off mechanical ventilation and pressors. Continue cefepime as per per infectious disease. C.difficile negative. Telemetry monitoring. Pulmonology/ICU on board. #Acute blood loss anemia likely sec to GI bleeding from ischemic colitis #Right breast hematoma secondary to CPR from cardiac arrest She is status post total of 7 units of PRBC transfusion. EGD showed mild gastritis and mild esophagitis with no active bleeding Surgery recommends to continue to hold anticoagulation Continue with PPI CT surgery recommends conservative management of hematoma. She is iron deficient, resume IV Ferrlecit #Abdominal pain #IIeus versus SBO Gen. surgery advancing diet Patient having diarrhea #Acute kidney injury #Hyponatremia Resolved Renal US shows no hydronephrosis on the R, enlarged cyst in the L kidney santana uring up to 8.3 cm. BETHANY likely due to ATN from septic shock and hypoNa from poor oral intake. Nephrology on board. #Transaminitis Improved Likely ischemic hepatitis secondary to shock liver. Improved #Atrial fibrillation #Atrial flutter with RVR Anticoagulation discontinued due to blood loss. Patient currently on metoprolol 50 mg 3 times a day Patient also on amiodarone Patient is still tachycardic in the 100s #Acute on chronic systolic CHF chronic Echo shows EF 35-40% with severe pulmonary HTN, moderate MR. Patient will need ischemic workup. Patient started on ACEi and Aldactone Continue IV Lasix as per audiology Cardiology on board. #T10 to pelvis decompression with fusion #Post-op pain #Status post second look wound debridement on 03/09 Management per Orthopedic surgery. Gabapentin, Decadron. Continue with oxycodone PRN. Patient has no stairs and planning on going home, she has nearby help from family but lives alone. Patient currently on bed rest. Awaiting for orthopedic surgery to clear patient for PT OT #Aborted sudden cardiac Cardiology on board. Echocardiogram shows EF 35-40% with moderate MR. #Hyperglycemia likely sec to steroids No official DM diagnosis Levemir 20 units daily. A1c is 6, likely prediabetic, will benefit from metformin upon discharge. #Right diaphragmatic paralysis Aggressive pulmonary hygiene. Pulmonology on board. #HLD Statin. #HTN Resume lisinopril DVT prophylaxis: Holding anticoagulation until cleared by orthopedic surgery Disposition: Once patient is cleared for out of bed activity by orthopedic surgery we can then start working on discharge planning.
[2022-03-17 12:10] LABS: Glucose,Whole Blood 192 mg/dL (70-110)
--- NOTE | 2022-03-17 12:47 | P.PN ---
Subjective Progress Note Date: 03/17/22 03/13/2022, seeing the patient for a follow-up. This morning, the patient is awake and alert and she is on 2 L of oxygen by nasal cannula. She denies having any signs of any respiratory distress. She is recovering from a septic shock secondary to Enterobacter bacteremia and this is probably related to a urinary tract infection as the same bacteria was cultured in the urine and in the blood. The patient is currently covered with Rocephin, and buttocks and the patient is currently on IV cefepime. The patient has no fever. No chills. No altered mentation she is able to communicate effectively. She has a recent T10 to pelvis decompression with fusion. Pain is under adequate control for now. She had a second look 1 debridement on 03/09/2022. She does have irregular leak and the patient is a drain in place and output is in order of 600 mL overnight. Spine surgeries on the case. The one is to be changed today. She remains in sinus rhythm. She was having episodes of into fibrillation/flutter and she is currently on oral amiodarone and Lopressor. No anticoagulation was done due to concerns of blood loss and GI bleeds. Noted the patient had a acute blood loss anemia secondary to GI bleeding and the patient also had a traumatic right breast hematoma both of which contributed to drop in hemoglobin. The patient had a lowest hemoglobin of 5.4. The patient's most and hemoglobin currently is up to 9.6 and the currently stable. No anticonvulsants are being utilized for now. The patient is also on Decadron. She has developed a component of syringes hyperglycemia and the patient is currently on no long-acting sugar control and and was started the patient Levemir insulin in addition to a sliding scale coverage. She is having diarrhea. She has a fecal management system in [facility]. Stool for C. diff has been negative. No other significant events otherwise for now. On 03/14/2022, seeing the patient for a follow-up. Patient has no complaints. She was allowed to raise the head of the bed elevated by 10 of the time. She is on 2 L of Oxymizer nasal cannula. Her cardiac rhythm is still itchy fibrillation/flutter the metoprolol dose has been adjusted and it was increased by cardiology. CSF leak is improved and the patient's drainage catheter is accumulated only 60 mL over the past 24 hours. Meanwhile, the patient completes her IV antibiotic course with cefepime. The patient has a gram-negative sepsis secondary to urinary tract infection. The patient is don't was is down to 10.2 with a hemoglobin 10.1 and his sodium levels of 134 with a potassium level of 4.1, BUN is 26 and a creatinine of 0.6. No other new complaints otherwise for now. He is awake and alert and she is communicating. Surgical wound is being dressed by the spine surgeon. The patient is hemodynamically stable. Alert and awake. There is motivated lower oximetry is bilaterally and there is increased edema and the patient is also receiving Lasix 40 mg IV push every 12 hours and she is in a negative fluid balance of 5.2 L over the past 24 hours. 03/15/2022, no major change in the patient's condition. The patient is still on 2 L of oxygen by nasal cannula. The patient is clinically and hemodynamically stable. There is still ongoing leak to be off CSF and the dural drain has drained approximately 250 mL over the past 8 hours.The patient is having episodes of atrial flutter/fibrillation. Rate is controlled. She is essentially primary position. He also distress. Occasional headaches. The patient remains on IV Lasix. The fluid balance over the past 24 hours has been -4.2 L and the patient continues to diabetes with IV Lasix. The patient has a fecal management system in Place and total amount of stool output has been 300 mL's. The patient remains on IV cefepime regarding the gram-negative sepsis and stool is being checked for C. diff. The patient is on Levemir insulin. The patient on NovoLog insulin for blood sugar control. 15 2021, the patient is resting comfortably in bed. She is currently on oxygen on room air oxygen. She was taken off the nasal cannula yesterday. She is using the Clean PETna spirometer. She remains on IV Lasix. Overall fluid balance is -3.7 L over the past 24 hours. The patient is calm and comfortable. No issues with pain. She has some motor function lower extremities bilaterally. She remains on IV Lasix. She remains on IV cefepime. The drain was removed yesterday by the surgical team. Fecal management system is still in place. The output is dropping the patient's stool is negative for C. diff. She remains on Levemir insulin for blood sugar control and she is also receiving NovoLog coverage. Her cardiac rhythm is currently and out of atrial fibrillation/flutter. This morning, she was found to be in sinus rhythm. She remains on Decadron 2 mg IV every 8 hours. No other complaints otherwise for now. Labs from today are still pending. Yesterday's labs were essentially adequate. On 03/17/2022, patient's condition is essentially stable. The patient continues to diabetes with IV Lasix and she has been negative fluid balance of 2.3 L over the past 24 hours. Electrodes are all stable. Sodium is at 131 and the BUN is 26 with a creatinine of 0.6. The white cell count of 8.1 with a hemoglobin of 10.5. Remains on IV cefepime. Remains on Decadron. Remains on Levemir insulin. Fecal management system is still in place and the diarrhea has been subsiding. She is awake and alert. She still and bedrest. Spine surgeries on the case. The patient is a over flow patient Objective - Vital Signs Vital signs: Vital Signs Temp 97.5 F L 03/17/22 08:00 Pulse 90 03/17/22 10:00 Resp 15 03/17/22 10:00 BP 130/57 03/17/22 10:00 Pulse Ox 97 03/17/22 10:00 FiO2 35 03/10/22 10:13 Intake & Output 03/16/22 03/17/22 03/17/22 18:59 06:59 18:59 Intake Total 90 110 230 Output Total 1535 2665 300 Balance -1445 -2555 -70 Intake: IV 90 110 230 Caffeine-Sodium Benzoate 100 500 mg In Sodium Chloride 0.9% 100 ml @ 1002 mls/ hr IVPB ONCE ONE Rx#: [id number] Sodium Chloride 0.9% 1, 90 110 30 000 ml @ 10 mls/hr IV . Q24H [facility] Rx#:[id number] Sodium Ferric Gluconat- 100 Sucrose 125 mg In Sodium Chloride 0.9% 100 ml @ 100 mls/hr IVPB DAILY [facility] Rx#:[id number] Output: Urine 1535 2665 300 Other: Voiding Method Indwelling Catheter Indwelling Catheter Indwelling Catheter ABP, PAP, CO, CI - Last Documented Arterial Blood Pressure 158/70 - Exam No acute distress, oriented 3. Currently on room air oxygen and the patient is calm and comfortable. Head exam was generally normal. There was no scleral icterus or corneal arcus. Mucous membranes were moist. HEENT examination is grossly unremarkable. Neck supple. Full range of motion. No adenopathy thyromegaly or neck vein distention. Cardiovascular examination reveals regular rhythm rate. S1-S2 normal. No S3 or S4. No discernible murmur noted. Heart sounds are distant. Lungs reveal clear breath sounds. Breath sounds are equal bilaterally. No adventitious lung sounds including wheezes rhonchi or crackles. Abdomen soft bowel sounds are heard. No masses or tenderness. Extremities are intact. Slight edema of the extremities. No cyanosis or clubbing. Skin is without rash or lesion. Large hematoma about the right breast. Neurologic examination is brief but nonfocal. The patient's strength is quite diminished in lower extremity bilaterally. Please refer to the spine surgeons evaluation regarding the motor function and reflexes. Cranial nerves are essentially intact and the patient is awake and alert. She is also oriented. - Labs CBC & Chem 7: 03/17/22 05:54 03/17/22 05:54 Labs: Abnormal Lab Results - Last 24 Hours (Table) 03/16/22 03/16/22 03/16/22 Range/Units 16:25 17:14 19:57 RBC (3.80-5.40) m/uL Hgb (11.4-16.0) gm/dL Hct (34.0-46.0) % RDW (11.5-15.5) % Plt Count (150-450) k/uL Lymphocytes # (1.0-4.8) k/uL Sodium (137-145) mmol/L BUN (7-17) mg/dL Glucose (74-99) mg/dL POC Glucose (mg/dL) 168 H 155 H 296 H (70-110) mg/dL Calcium (8.4-10.2) mg/dL 03/17/22 03/17/22 03/17/22 Range/Units 05:54 05:54 06:41 RBC 3.37 L (3.80-5.40) m/uL Hgb 10.5 L (11.4-16.0) gm/dL Hct 31.1 L (34.0-46.0) % RDW 17.3 H (11.5-15.5) % Plt Count 132 L (150-450) k/uL Lymphocytes # 0.5 L (1.0-4.8) k/uL Sodium 131 L (137-145) mmol/L BUN 26 H (7-17) mg/dL Glucose 164 H (74-99) mg/dL POC Glucose (mg/dL) 167 H (70-110) mg/dL Calcium 7.7 L (8.4-10.2) mg/dL 03/17/22 Range/Units 12:09 RBC (3.80-5.40) m/uL Hgb (11.4-16.0) gm/dL Hct (34.0-46.0) % RDW (11.5-15.5) % Plt Count (150-450) k/uL Lymphocytes # (1.0-4.8) k/uL Sodium (137-145) mmol/L BUN (7-17) mg/dL Glucose (74-99) mg/dL POC Glucose (mg/dL) 192 H (70-110) mg/dL Calcium (8.4-10.2) mg/dL Assessment and Plan Plan: Acute sepsis secondary to UTI with Enterobacter with hypotension secondary to bacteremia/urinary tract infection with Enterobacter. The patient is currently on IV cefepime. Hemodynamically stable. The patient continues to complete his course of antibiotics with IV cefepime altered mental status , recovered, back to normal Atrial flutter fibrillation/flutter with a rapid ventricular response requiring amiodarone. She is in sinus tchycardia and she is on Po aniodarone and Lopressor, no anticoagulants due to GIB, and the dose of metoprolol was i ncreased up to 50 mg by mouth 3 times a day, nontender guidance of utilized yet Lactic acidosis, improved Acute renal failure, improved and the creatinine is normalized Hyperkalemia, improved. Hyponatremia, recovered. Leukocytosis, improved. GIB and the patient and an EDG (gastritis and esophagitis) , inactive an stable Acute anemia with a hemoglobin dropped to 5.4. The patient had developed a large right sided chest wall/breast hematoma suspect secondary to fall on 03/06/2022. Hb is stable for now and the bladder awaiting labs from this morning. Lumbar decompression/fusion postoperative day #21. On 03/09/2022 she did require exploration and washout with dural repairs due to falls. Hemo-vac placed. Postoperative day #8 . The drain has been removed yesterday by the surgical team. Dural tear/leak and the patinet had a drain that was removed and there is no ongoing leak at this point in time Cardiac arrest, brief pulseless electrical activity encountered in the operating room. Acute hypoxic/hypercapnic respiratory failure secondary to cardiac arrest/PEA. Morbid obesity, BMI of 49.0. History of right hemidiaphragm paralysis. History of right-sided breast cancer, previous lumpectomy. Chronic atrial fibrillation/flutter. Dyslipidemia. Benign essential hypertension. diabetes mellitus, maintained on Decadron and the patient is a component of steroid-induced hyperglycemia, and currently the patient is on Levemir insulin at 20 units in addition to a sliding scale coverage. CHF with an ejection fraction of 35-40% Fluid overload with increased lower extremity edema currently on a combination of Lasix 40 mg IV every 12 hours in addition to Diamox, The patient remains in negative fluid balance Diarrhea, currently has a fecal management system in place and the patient has negative stool for C. diff. Plan May transfer this patient also the intensive care unit Continue using the senna spirometer Keep the patient flat in bed per surgical recommendation and the patient will be turned every 2 hours. continue IV cefepime for now, coordinated with infectious disease regarding the possibility of switching to oral antibiotics Plan control with Tylenol Acetazolamide Monitor the hemoglobin Surgical wound dressed by spine surgery Watch for signs of GI bleeding No anticoagulants for now Continue amiodarone 400 mg BID and and the metoprolol 50 mg by mouth 3 times a day Continue IV iron treatment Continue IV Lasix 40 mg, Currently in negative fluid balance Continue Aldactone We'll continue to follow
[2022-03-17 16:47] LABS: Glucose,Whole Blood 217 mg/dL (70-110)
--- NOTE | 2022-03-17 19:43 | P.PN ---
Subjective Progress Note Date: 03/17/22 Principal diagnosis: UTI and bacteremia Patient is a 71-year-old female with a past medical history difficult for atrial fibrillation flutter hypertension hyperlipidemia hypothyroidism right breast cancer electively admitted to the hospital more than 2 weeks ago 022 for T10 to lumbar spine revision decompression and posterior lateral interbody fusion, patient did have a episode of hypotension and elevated white count requiring admission to the ICU patient did have a positive UA and gram- negative bacteremia and is scheduled for exploration of the thoracolumbar incision completed on 03/09/2022 with apparently no evidence of any abscess as reported by the nursing staff On today's evaluation that is 03/17/2022 the patient continues to be afebrile , the patient is breathing comfortably on room air, the patient did have occasional dry cough, the patient denies nausea no vomiting no abdominal pain, the patient still have some drainage from the back incision per the nursing staff, the patient diarrhea has slowed down per the nursing staff Objective - Vital Signs Vital signs: Vital Signs Temp 97.5 F L 03/17/22 08:00 Pulse 90 03/17/22 10:00 Resp 15 03/17/22 10:00 BP 130/57 03/17/22 10:00 Pulse Ox 97 03/17/22 10:00 FiO2 35 03/10/22 10:13 Intake & Output 03/16/22 03/17/22 03/17/22 18:59 06:59 18:59 Intake Total 90 110 230 Output Total 1535 2665 300 Balance -0931 -6620 -70 Intake: IV 90 110 230 Caffeine-Sodium Benzoate 100 500 mg In Sodium Chloride 0.9% 100 ml @ 1002 mls/ hr IVPB ONCE ONE Rx#: [id number] Sodium Chloride 0.9% 1, 90 110 30 000 ml @ 10 mls/hr IV . Q24H [facility] Rx#:[id number] Sodium Ferric Gluconat- 100 Sucrose 125 mg In Sodium Chloride 0.9% 100 ml @ 100 mls/hr IVPB DAILY [facility] Rx#:[id number] Output: Urine 1535 2665 300 Other: Voiding Method Indwelling Catheter Indwelling Catheter Indwelling Catheter ABP, PAP, CO, CI - Last Documented Arterial Blood Pressure 158/70 - Exam GENERAL DESCRIPTION: An elderly female lying in bed in no distress RESPIRATORY SYSTEM: Unlabored breathing , decreased breath sounds at bases HEART: S1 S2 regular rate and rhythm , ABDOMEN: Soft , no tenderness EXTREMITIES: Diffuse swelling bilateral lower extremity - Labs CBC & Chem 7: 03/17/22 05:54 03/17/22 05:54 Labs: Abnormal Lab Results - Last 24 Hours (Table) 03/16/22 03/16/22 03/16/22 Range/Units 11:33 16:25 17:14 RBC (3.80-5.40) m/uL Hgb (11.4-16.0) gm/dL Hct (34.0-46.0) % RDW (11.5-15.5) % Plt Count (150-450) k/uL Lymphocytes # (1.0-4.8) k/uL Sodium (137-145) mmol/L BUN (7-17) mg/dL Glucose (74-99) mg/dL POC Glucose (mg/dL) 175 H 168 H 155 H (70-110) mg/dL Calcium (8.4-10.2) mg/dL 03/16/22 03/17/22 03/17/22 Range/Units 19:57 05:54 05:54 RBC 3.37 L (3.80-5.40) m/uL Hgb 10.5 L (11.4-16.0) gm/dL Hct 31.1 L (34.0-46.0) % RDW 17.3 H (11.5-15.5) % Plt Count 132 L (150-450) k/uL Lymphocytes # 0.5 L (1.0-4.8) k/uL Sodium 131 L (137-145) mmol/L BUN 26 H (7-17) mg/dL Glucose 164 H (74-99) mg/dL POC Glucose (mg/dL) 296 H (70-110) mg/dL Calcium 7.7 L (8.4-10.2) mg/dL 03/17/22 Range/Units 06:41 RBC (3.80-5.40) m/uL Hgb (11.4-16.0) gm/dL Hct (34.0-46.0) % RDW (11.5-15.5) % Plt Count (150-450) k/uL Lymphocytes # (1.0-4.8) k/uL Sodium (137-145) mmol/L BUN (7-17) mg/dL Glucose (74-99) mg/dL POC Glucose (mg/dL) 167 H (70-110) mg/dL Calcium (8.4-10.2) mg/dL Assessment and Plan (1) Gram-negative bacteremia Current Visit: Yes Status: Acute Code(s): R78.81 - BACTEREMIA SNOMED Code(s): 936838719470 Plan: 1patient with SIRS/sepsis in this patient who has been in the hospital for 2 weeks with elective admission to the hospital for thoracolumbar spine revision did have a cardiac arrest requiring resuscitation now with evidence of significant hypertension ileus and elevated white count source possible UTI as the patient urine as well as blood cultures are growing Enterobacter 2patient slowly clinically improving and the patient white count has normalized, patient will continue with the cefepime keeping in mind her ALLERGIES and interaction of the other option which will be Cipro with other medication and monitor clinical course closely Time with Patient: Less than 30
[2022-03-17 20:42] LABS: Glucose,Whole Blood 259 mg/dL (70-110)
[2022-03-18] MEDS ORDERED: CEFEPIME 2 GM in SODIUM CHLORIDE 0.9% 100 ML IVPB SCH (05:00)
[2022-03-18 06:59] LABS: African American GFR (CKD) >90 (>60 ml/min/1.73 sqM); Anion Gap 5 mmol/L; Blood Urea Nitrogen 26 mg/dL (7-17); Carbon Dioxide 25 mmol/L (22-30); Chloride 101 mmol/L (98-107); Glucose 156 mg/dL (74-99); Non-African American GFR(CKD) >90 (>60 ml/min/1.73 sqM); Potassium 4.3 mmol/L (3.5-5.1); Sodium 131 mmol/L (137-145)
[2022-03-18 08:45] LABS: Glucose,Whole Blood 144 mg/dL (70-110)
[2022-03-18] MEDS: DEXAMETHASONE SOD PHOSPHATE 4 MG/ML 1 ML VIAL IVP SCH ×3 (09:17→23:15)
[2022-03-18] MEDS: GABAPENTIN 400 MG CAP PO SCH ×3 (09:18→21:08)
[2022-03-18] MEDS: FUROSEMIDE 10 MG/ML 4 ML VIAL IV SCH ×2 (09:18→21:04)
[2022-03-18] MEDS: ATORVASTATIN 10 MG TAB PO SCH (09:18)
[2022-03-18] MEDS: PANTOPRAZOLE 40 MG/10 ML VIAL IVP SCH (09:18)
[2022-03-18] MEDS: DULoxetine HCL 60 MG CAPSULE.DR PO SCH (09:19)
[2022-03-18] MEDS: METOPROLOL TARTRATE 50 MG TAB PO SCH ×3 (09:19→21:08)
[2022-03-18] MEDS: AMIODARONE 200 MG TAB PO SCH ×2 (09:19→21:07)
[2022-03-18] MEDS: lisinopriL 5 MG TAB PO SCH (09:19)
[2022-03-18] MEDS: ACETAMINOPHEN TAB 500 MG TAB PO SCH ×4 (09:19→23:14)
[2022-03-18] MEDS: MAG HYDROX/AL HYDROX/SIMETH 30 ML, diphenhydrAMINE ELIXIR 75 MG, LIDOCAINE VISCOUS 2% 3... PO SCH ×9 (09:20→21:19)
[2022-03-18] MEDS: SODIUM CHLORIDE 0.9% 1,000 ML IV SCH (09:21)
[2022-03-18 09:26] LABS: Glucose,Whole Blood 134 mg/dL (70-110)
[2022-03-18] MEDS: INSULIN ASPART (NovoLOG) 100 UNIT/ML VIAL SQ SCH ×4 (09:27→21:03)
[2022-03-18] MEDS: CEFEPIME 2 GM in SODIUM CHLORIDE 0.9% 100 ML IVPB SCH ×2 (09:32→21:08)
[2022-03-18] MEDS: LEVOTHYROXINE 88 MCG TAB PO SCH (09:43)
[2022-03-18] MEDS: SPIRONOLACTONE 25 MG TAB PO SCH (09:43)
[2022-03-18] MEDS: acetaZOLAMIDE 250 MG TAB PO SCH (09:43)
[2022-03-18] MEDS: INSULIN DETEMIR (LEVEMIR) 100 UNIT/ML SYR SQ SCH (09:43)
[2022-03-18] MEDS: SODIUM FERRIC GLUCONAT-SUCROSE 125 MG in SODIUM CHLORIDE 0.9% 100 ML IVPB SCH (09:43)
--- NOTE | 2022-03-18 09:48 | P.PN ---
Subjective Progress Note Date: 03/18/22 Patient denies any acute complaints this morning. No acute issues overnight. Objective - Vital Signs Vital signs: Vital Signs Temp 97.8 F 03/18/22 00:00 Pulse 77 03/18/22 00:00 Resp 14 03/18/22 00:00 BP 144/71 03/18/22 00:00 Pulse Ox 96 03/18/22 00:00 FiO2 35 03/10/22 10:13 Intake & Output 03/17/22 03/18/22 03/18/22 18:59 06:59 18:59 Intake Total 520 1870 Output Total 1500 2325 Balance -980 -455 Intake: IV 220 420 Caffeine-Sodium Benzoate 100 500 mg In Sodium Chloride 0.9% 100 ml @ 1002 mls/ hr IVPB ONCE ONE Rx#: [id number] Cefepime 2 gm In Sodium 200 Chloride 0.9% 100 ml @ 25 mls/hr IVPB Q12H [facility] Rx# :[id number] Sodium Chloride 0.9% 1, 20 220 000 ml @ 10 mls/hr IV . Q24H [facility] Rx#:[id number] Sodium Ferric Gluconat- 100 Sucrose 125 mg In Sodium Chloride 0.9% 100 ml @ 100 mls/hr IVPB DAILY [facility] Rx#:[id number] Oral 300 1450 Output: Urine 1500 2325 Other: Voiding Method Indwelling Catheter Indwelling Catheter ABP, PAP, CO, CI - Last Documented Arterial Blood Pressure 158/70 - Exam General examination - Alert and Oriented 3 in NAD, appears chronically debilitated Heart - + S1S2 no murmurs Lungs - diminished breath sounds bilaterally Abdomen soft NT ND +ve BS Extremities - +1 pitting edema bilaterally [employer] - Moving all 4 extremities spontaneously Psych - Calm and cooperative - Labs CBC & Chem 7: 03/17/22 05:54 03/18/22 06:04 Labs: Abnormal Lab Results - Last 24 Hours (Table) 03/17/22 03/17/22 03/17/22 Range/Units 12:09 16:45 20:40 Sodium (137-145) mmol/L BUN (7-17) mg/dL Glucose (74-99) mg/dL POC Glucose (mg/dL) 192 H 217 H 259 H (70-110) mg/dL Calcium (8.4-10.2) mg/dL 03/18/22 03/18/2203/18/22 Range/Units 06:04 08:42 09:24 Sodium 131 L (137-145) mmol/L BUN 26 H (7-17) mg/dL Glucose 156 H (74-99) mg/dL POC Glucose (mg/dL) 144 H 134 H (70-110) mg/dL Calcium 8.0 L (8.4-10.2) mg/dL Assessment and Plan Assessment: #Septic shock on admission #Enterobacter cloacae bacteremia with likly source UTI #Enterobacter cloacae UTI #Lactic acidosis Currently off mechanical ventilation and pressors. Continue cefepime as per per infectious disease. C.difficile negative. Telemetry monitoring. Pulmonology/ICU on board. #Acute blood loss anemia likely sec to GI bleeding from ischemic colitis #Right breast hematoma secondary to CPR from cardiac arrest She is status post total of 7 units of PRBC transfusion. EGD showed mild gastritis and mild esophagitis with no active bleeding Surgery recommends to continue to hold anticoagulation Continue with PPI CT surgery recommends conservative management of hematoma. She is iron deficient, resume IV Ferrlecit #Abdominal pain #IIeus versus SBO Gen. surgery advancing diet Patient having diarrhea #Acute kidney injury #Hyponatremia Resolved Renal US shows no hydronephrosis on the R, enlarged cyst in the L kidney measuring up to 8.3 cm. BETHANY likely due to ATN from septic shock and hypoNa from poor oral intake. Nephrology on board. #Transaminitis Improved Likely ischemic hepatitis secondary to shock liver. Improved #Atrial fibrillation #Atrial flutter with RVR Anticoagulation discontinued due to blood loss. Patient currently on metoprolol 50 mg 3 times a day Patient also on amiodarone Patient is still tachycardic in the 100s #Acute on chronic systolic CHF chronic Echo shows EF 35-40% with severe pulmonary HTN, moderate MR. Patient will need ischemic workup. Patient started on ACEi and Aldactone Continue IV Lasix as per audiology Cardiology on board. #T10 to pelvis decompression with fusion #Post-op pain #Status post second look wound debridement on 03/09 Management per Orthopedic surgery. Gabapentin, Decadron. Continue with oxycodone PRN. Patient has no stairs and planning on going home, she has nearby help from family but lives alone. Patient currently on bed rest. Awaiting for orthopedic surgery to clear patient for PT OT #Aborted sudden cardiac Cardiology on board. Echocardiogram shows EF 35-40% with moderate MR. #Hyperglycemia likely sec to steroids No official DM diagnosis Levemir 20 units daily. A1c is 6, likely prediabetic, will benefit from metformin upon discharge. #Right diaphragmatic paralysis Aggressive pulmonary hygiene. Pulmonology on board. #HLD Statin. #HTN Resume lisinopril DVT prophylaxis: Holding anticoagulation until cleared by orthopedic surgery Disposition: Once patient is cleared for out of bed activity by orthopedic surgery we can then start working on discharge planning.
--- NOTE | 2022-03-18 10:00 | P.PN ---
Subjective Progress Note Date: 03/18/22 PROGRESS NOTE The patient is a 71-year-old female who underwent lumbar surgery on February 24 for severe stenosis, mechanical low back pain and neurogenic claudication. She has a known history of atrial flutter, atrial fibrillation. She continues to be in atrial flutter at this time with 2 to one conduction. She had an echocardiogram on February 27 that showed an ejection fraction of 35-40% with moderate mitral regurgitation. In 2018 her LV systolic function was normal. It is unclear if this deterioration is an acute event following her surgery. She feels better overall, has musculoskeletal right-sided discomfort. She is not anticoagulated because of recent bleeding. She denies any nausea or vomiting. Her blood pressure is under good control. She had positive urine culture. March 14: The patient is feeling slightly better today, she denies any chest discomfort or dizziness. She continues to be in atrial flutter with 2 to one conduction. She had episodes of her lower heart rate. She is tolerating her present medical regimen. She has no evidence of ventricular tachycardia. She continues to be in bed, she is allowed to lift her head 30 today. She has no nausea or vomiti ng. She has no dizziness or palpitations. Her right-sided chest discomfort has improved. Her anticoagulation remains on hold because of her anemia and hematoma. March 15: Patient continues to have soreness but better. She has mild nausea but no significant dyspnea. Her atrial flutter rate is under better control. She denies any chest discomfort, dizziness or palpitations. She continues to be at bedrest. Her blood pressures been stable on the present regimen. March 16: The patient continues to be in atrial flutter with controlled ventricular response. She feels better overall but continues to feel fatigued. She denies any chest discomfort, dizziness or palpitations. She continues to be at bedrest because of a leak. Her urine output is stable. She is not anticoagulated yet per surgical team. Hemodynamically she is stable. March 17: Patient is feeling well overall remains in bed flat, she continues to be in atrial flutter with controlled ventricular response. She has not been anticoagulated per surgical team. She denies any chest discomfort, her breathing is better. She denies any dizziness or palpitations, no nausea. She is tolerating by mouth. She has no fever. March 18: The patient is complaining of left sided respirophasic and muscular chest dis comfort. She has some discomfort in her mouth. She continues to be in atrial flutter with controlled ventricular response. She denies any dizziness or palpitations. She continues to be a bedrest. She has no arrhythmia. She has mild nausea. Not anticoagulated yet per surgical team. Medications: Amiodarone 200 mg twice a day, Lipitor 10 mg daily, Lasix 40 mg IV every 12 hours, metoprolol 50 mg 3 times a day, Protonix. Lisinopril 5 mg daily, Aldactone 25 mg daily, Diamox 250 mg daily PHYSICAL EXAMINATION: Blood pressure 110/70, heart rate 90, afebrile LUNGS: Clear to auscultation HEART: Irregular rate and rhythm, , S1, S2. No S3. No systolic murmur ABDOMEN: Soft, nontender, no organomegaly, obese EXTREMETIES: Trace to +1 edema LAB: BUN 26, creatinine 0.59, potassium 4.3. IMPRESSION: 1. Status post back surgery 2. Atrial flutter with controlled ventricular response, not anticoagulated because of recent bleeding, awaiting input of surgery to resume anticoagulation 3. Anemia, stable 4. Cardiomyopathy of unknown etiology, no evidence of acute CHF at this time 5. Bacteremia 6. Acute renal injury resolved 7. Morbid obesity 8. Hyperlipidemia 9. Hypertension, controlled PLAN: 1. Awaiting the input of the surgical team regarding anticoagulation 2. Continue beta nic and amiodarone 3. Physical activity per surgical team 4. Depending on her progress further recommendations will be made Objective - Vital Signs Vital signs: Vital Signs Temp 97.8 F 03/18/22 00:00 Pulse 77 03/18/22 00:00 Resp 14 03/18/22 00:00 BP 144/71 03/18/22 00:00 Pulse Ox 96 03/18/22 00:00 FiO2 35 03/10/22 10:13 Intake & Output 03/17/22 03/18/22 03/18/22 18:59 06:59 18:59 Intake Total 520 1870 Output Total 2019 5893 Balance -324 -310 Intake: IV 220 420 Caffeine-Sodium Benzoate 100 500 mg In Sodium Chloride 0.9% 100 ml @ 1002 mls/ hr IVPB ONCE ONE Rx#: [id number] Cefepime 2 gm In Sodium 200 Chloride 0.9% 100 ml @ 25 mls/hr IVPB Q12H [facility] Rx# :[id number] Sodium Chloride 0.9% 1, 20 220 000 ml @ 10 mls/hr IV . Q24H [facility] Rx#:[id number] Sodium Ferric Gluconat- 100 Sucrose 125 mg In Sodium Chloride 0.9% 100 ml @ 100 mls/hr IVPB DAILY [facility] Rx#:[id number] Oral 300 1450 Output: Urine 1500 2325 Other: Voiding Method Indwelling Catheter Indwelling Catheter ABP, PAP, CO, CI - Last Documented Arterial Blood Pressure 158/70 - Labs CBC & Chem 7: 03/17/22 05:54 03/18/22 06:04 Labs: Abnormal Lab Results - Last 24 Hours (Table) 03/17/22 03/17/22 03/17/22 Range/Units 12:09 16:45 20:40 Sodium (137-145) mmol/L BUN (7-17) mg/dL Glucose (74-99) mg/dL POC Glucose (mg/dL) 192 H 217 H 259 H (70-110) mg/dL Calcium (8.4-10.2) mg/dL 03/18/22 03/18/22 03/18/22 Range/Units 06:04 08:42 09:24 Sodium 131 L (137-145) mmol/L BUN 26 H (7-17) mg/dL Glucose 156 H (74-99) mg/dL POC Glucose (mg/dL) 144 H 134 H (70-110) mg/dL Calcium 8.0 L (8.4-10.2) mg/dL
--- NOTE | 2022-03-18 10:58 | P.PN ---
Subjective Progress Note Date: 03/18/22 Principal diagnosis: UTI and bacteremia Patient is a 71-year-old female with a past medical history difficult for atrial fibrillation flutter hypertension hyperlipidemia hypothyroidism right breast cancer electively admitted to the hospital more than 2 weeks ago 022 for T10 to lumbar spine revision decompression and posterior lateral interbody fusion, patient did have a episode of hypotension and elevated white count requiring admission to the ICU patient did have a positive UA and gram- negative bacteremia and is scheduled for exploration of the thoracolumbar incision completed on 03/09/2022 with apparently no evidence of any abscess as reported by the nursing staff On today's evaluation that is 03/18/2022 the patient remains to be afebrile , the patient is breathing comfortably on room air, the patient denies any worsening cough or sputum production, the patient denies nausea no vomiting no abdominal pain, the patient still having diarrhea per the nursing staff Objective - Vital Signs Vital signs: Vital Signs Temp 97.0 F L 03/18/22 09:10 Pulse 95 03/18/22 09:10 Resp 16 03/18/22 09:10 BP 110/74 03/18/22 09:10 Pulse Ox 95 03/18/22 09:10 FiO2 35 03/10/22 10:13 Intake & Output 03/17/22 03/18/22 03/18/22 18:59 06:59 18:59 Intake Total 520 1870 Output Total 1500 2325 Balance -980 -455 Intake: IV 220 420 Caffeine-Sodium Benzoate 100 500 mg In Sodium Chloride 0.9% 100 ml @ 1002 mls/ hr IVPB ONCE ONE Rx#: [id number] Cefepime 2 gm In Sodium 200 Chloride 0.9% 100 ml @ 25 mls/hr IVPB Q12H [facility] Rx# :[id number] Sodium Chloride 0.9% 1, 20 220 000 ml @ 10 mls/hr IV . Q24H [facility] Rx#:[id number] Sodium Ferric Gluconat- 100 Sucrose 125 mg In Sodium Chloride 0.9% 100 ml @ 100 mls/hr IVPB DAILY [facility] Rx#:[id number] Oral 300 1450 Output: Urine 1500 2325 Other: Voiding Method Indwelling Catheter Indwelling Catheter ABP, PAP, CO, CI - Last Documented Arterial Blood Pressure 158/70 - Exam GENERAL DESCRIPTION: An elderly female lying in bed in no distress RESPIRATORY SYSTEM: Unlabored breathing , decreased breath sounds at bases HEART: S1 S2 regular rate and rhythm , ABDOMEN: Soft , no tenderness EXTREMITIES: Diffuse swelling bilateral lower extremity - Labs CBC & Chem 7: 03/17/22 05:54 03/18/22 06:04 Labs: Abnormal Lab Results - Last 24 Hours (Table) 03/17/22 03/17/22 03/17/22 Range/Units 12:09 16:45 20:40 Sodium (137-145) mmol/L BUN (7-17) mg/dL Glucose (74-99) mg/dL POC Glucose (mg/dL) 192 H 217 H 259 H (70-110) mg/dL Calcium (8.4-10.2) mg/dL 03/18/22 03/18/22 03/18/22 Range/Units 06:04 08:42 09:24 Sodium 131 L (137-145) mmol/L BUN 26 H (7-17) mg/dL Glucose 156 H (74-99) mg/dL POC Glucose (mg/dL) 144 H 134 H (70-110) mg/dL Calcium 8.0 L (8.4-10.2) mg/dL Assessment and Plan (1) Gram-negative bacteremia Current Visit: Yes Status: Acute Code(s): R78.81 - BACTEREMIA SNOMED Code(s): 797645673120 Plan: 1patient with SIRS/sepsis in this patient who has been in the hospital for 2 weeks with elective admission to the hospital for thoracolumbar spine revision did have a cardiac arrest requiring resuscitation now with evidence of significant hypertension ileus and elevated white count source possible UTI as the patient urine as well as blood cultures are growing Enterobacter 2patient slowly clinically improving and the patient white count has normalized, patient will continue with the cefepime keeping in mind her ALLERGIES and interaction of the other option which will be Cipro with other medication to finish a two-week course of therapy 3-we will add Questran for symptomatic relief of her diarrhea Time with Patient: Less than 30
[2022-03-18 11:44] LABS: Glucose,Whole Blood 229 mg/dL (70-110)
[2022-03-18] MEDS: CHOLESTYRAMINE (WITH SUGAR) 4 GM PACKET PO SCH ×2 (12:37→17:30)
--- NOTE | 2022-03-18 14:55 | P.PN ---
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 Pt doing OK. She is lay flat and still getting halo type LOZANO when she turns but has no N, V. She has no blurred or double vision. Warren and FBS still in place. She is getting sore in her sacral region and so we will address this. Likely change dressing tomorrow. Currently it is CDI. No other issues overnight. Objective - Vital Signs Vital signs: Vital Signs Temp 98.2 F 03/18/22 12:00 Pulse 76 03/18/22 12:00 Resp 14 03/18/22 12:00 BP 126/69 03/18/22 12:00 Pulse Ox 97 03/18/22 12:00 FiO2 35 03/10/22 10:13 Intake & Output 03/17/22 03/18/22 03/18/22 18:59 06:59 18:59 Intake Total 520 1870 Output Total 1500 2325 850 Balance -980 -574 -475 Intake: IV 220 420 Caffeine-Sodium Benzoate 100 500 mg In Sodium Chloride 0.9% 100 ml @ 1002 mls/ hr IVPB ONCE ONE Rx#: [id number] Cefepime 2 gm In Sodium 200 Chloride 0.9% 100 ml @ 25 mls/hr IVPB Q12H [facility] Rx# :[id number] Sodium Chloride 0.9% 1, 20 220 000 ml @ 10 mls/hr IV . Q24H [facility] Rx#:[id number] Sodium Ferric Gluconat- 100 Sucrose 125 mg In Sodium Chloride 0.9% 100 ml @ 100 mls/hr IVPB DAILY [facility] Rx#:[id number] Oral 300 1450 Output: Urine 1500 2325 850 Other: Voiding Method Indwelling Catheter Indwelling Catheter Indwelling Catheter ABP, PAP, CO, CI - Last Documented Arterial Blood Pressure 158/70 - Exam No changes PHYSICAL EXAMINATION: Vitals: BP 133/78, heart rate 77 and currently Aflutter, SpO2 96% on room air, Resp 15, temperature normal General: Awake, alert, appropriate for age, in no acute distress. HEENT: No changes Extremities: Skin warm and dry without no acute lesions, coloration, temperature, skin intact, no tenderness or erythema. Integument: Surgical incisions: Dressings CDI Warren Cath present and patent FMS present and patent Palpation: Special findings: pain with palpation of the right breast area with large hematoma noted as well as anterior chest wall. VASCULAR STATUS : Wrist Pulses: [2/4 bilateral radial and ulnar] Pedal Pulses: [2/4 bilateral DP and PT] Color: [Normal] Edema: Improved in arms and hands. NEUROLOGIC EXAMINATION: Mental Status: Awake and alert, oriented,but slow with normal attention, concentration and memory, and fluent, he has slow speech Cranial Nerves: I: Olfactory not tested. II: Visual acuity normal, no visual field deficit noted with confrontation. III,IV: Normal pupillary reflexes & intact extraocular movements without nystagmus. V,: Intact symmetrical facial sensation. VII: Intact symmetrical facial motor movement VIII: Hearing intact. IX,X: Intact gag, swallow, & normal voice. XI: Sternocleidomastoid, trapezius function intact. XII: Tongue midline with normal movements. Special Tests: L'hermitte's Sign: Absent Straight Leg Raising: Absent Bilateral Motor Exam (0-5/5, N/T) STRENGTH 4+ out of 5 strength in upper extremity's bilaterally all major muscle groups without focal deficits generalized weakness 4- to 5 strength bilateral lower extremities all major muscle groups with generalized weakness no focal deficits. She is weak in her hip flexors currently. REFLEXES Upper Extremity: RIGHT [2]/4 LEFT [2]/4 Lower Extremity: RIGHT [2]/4 LEFT [2]/4 Pathological Reflexes Warren's: RIGHT [Absent] LEFT [Absent] Babinski: RIGHT [Absent] LEFT [Absent] Clonus: RIGHT [None] LEFT [None] SENSORY Intact Gait and Functional Evaluation: Lay Flat, Bedrest - Labs CBC & Chem 7: 03/17/22 05:54 03/18/22 06:04 Labs: Abnormal Lab Results - Last 24 Hours (Table) 03/17/22 03/17/22 03/18/22 Range/Units 16:45 20:40 06:04 Sodium 131 L (137-145) mmol/L BUN 26 H (7-17) mg/dL Glucose 156 H (74-99) mg/dL POC Glucose (mg/dL) 217 H 259 H (70-110) mg/dL Calcium 8.0 L (8.4-10.2) mg/dL 03/18/22 03/18/22 03/18/22 Range/Units 08:42 09:24 11:42 Sodium (137-145) mmol/L BUN (7-17) mg/dL Glucose (74-99) mg/dL POC Glucose (mg/dL) 144 H 134 H 229 H (70-110) mg/dL Calcium (8.4-10.2) mg/dL Assessment and Plan Assessment: 1. Lumbar spondylosis; adjacent segment disease status post L2-L4 posterior fusion with proximal junctional failure; neurogenic claudication - Postoperative day #22 & 9 status post [id number] decompression and fusion with washout and revision dural repair -UGI bleed, starting to resolve -ABLA expected outcome of surgery as well as secondary to UGI bleed. Status post 7 units PRBC and 1 pack platelets -bilateral lower extremity weakness, status post multiple controlled falls in- house -Enterobacter sepsis, UTI -status post cardiac arrest Plan: -Appreciate it sales consultant and team management PCC and medicine -Appreciate cardiothoracic, Gen. surgery, nephrology, ID evaluations -Continue Activity: Lay flat, Bed rest. HOB no higher than 15 deg and if symptoms of LOZANO, N, Dizziness etc lay back down. Turn q2. Continue in bed therapy with ankle pumps to motions but squeezes quad thrusts and are motions. -Daily proning 5-10 min work up to 10 -Cont Abx for duration of stay -Caffiene daily 200 mg daily -Pain control: Adequate today ( Tylenol 1000 mg [facility], Oxy IR q4 hrs 10-15 mg titrated to pain (pt been on Mermentau for 20 yrs), Cont Gabapentin,) -Acetazolamide 250mg daily -Meplex pads on sacral region with barrier cream. Cont turn. Sit at different angles. -Meds: reviewed -Trend labs -Transfusions to vitals -GI ppx: senna, Miralax -Continue Warren changed per protocol -Cont with FBS -DVT PPX: Mechanical only -Hygiene: Maintain dressing clean and dry. Meticulous cleaning after BMs away from incision site patient has had several instances on the floor where she was covered and bowel movement as well as urine up to her shoulders on her back. The wound needs to be kept meticulously clean. -Encourage IS 10x/hr -Possible to transfer out of unit by Sunday if stable.
--- NOTE | 2022-03-18 16:39 | P.PN ---
Subjective Progress Note Date: 03/18/22 03/13/2022, seeing the patient for a follow-up. This morning, the patient is awake and alert and she is on 2 L of oxygen by nasal cannula. She denies having any signs of any respiratory distress. She is recovering from a septic shock secondary to Enterobacter bacteremia and this is probably related to a urinary tract infection as the same bacteria was cultured in the urine and in the blood. The patient is currently covered with Rocephin, and buttocks and the patient is currently on IV cefepime. The patient has no fever. No chills. No altered mentation she is able to communicate effectively. She has a recent T10 to pelvis decompression with fusion. Pain is under adequate control for now. She had a second look 1 debridement on 03/09/2022. She does have irregular leak and the patient is a drain in place and output is in order of 600 mL overnight. Spine surgeries on the case. The one is to be changed today. She remains in sinus rhythm. She was having episodes of into fibrillation/flutter and she is currently on oral amiodarone and Lopressor. No anticoagulation was done due to concerns of blood loss and GI bleeds. Noted the patient had a acute blood loss anemia secondary to GI bleeding and the patient also had a traumatic right breast hematoma both of which contributed to drop in hemoglobin. The patient had a lowest hemoglobin of 5.4. The patient's most and hemoglobin currently is up to 9.6 and the currently stable. No anticonvulsants are being utilized for now. The patient is also on Decadron. She has developed a component of syringes hyperglycemia and the patient is currently on no long-acting sugar control and and was started the patient Levemir insulin in addition to a sliding scale coverage. She is having diarrhea. She has a fecal management system in [facility]. Stool for C. diff has been negative. No other significant events otherwise for now. On 03/14/2022, seeing the patient for a follow-up. Patient has no complaints. She was allowed to raise the head of the bed elevated by 10 of the time. She is on 2 L of Oxymizer nasal cannula. Her cardiac rhythm is still itchy fibrillation/flutter the metoprolol dose has been adjusted and it was increased by cardiology. CSF leak is improved and the patient's drainage catheter is accumulated only 60 mL over the past 24 hours. Meanwhile, the patient completes her IV antibiotic course with cefepime. The patient has a gram-negative sepsis secondary to urinary tract infection. The patient is don't was is down to 10.2 with a hemoglobin 10.1 and his sodium levels of 134 with a potassium level of 4.1, BUN is 26 and a creatinine of 0.6. No other new complaints otherwise for now. He is awake and alert and she is communicating. Surgical wound is being dressed by the spine surgeon. The patient is hemodynamically stable. Alert and awake. There is motivated lower oximetry is bilaterally and there is increased edema and the patient is also receiving Lasix 40 mg IV push every 12 hours and she is in a negative fluid balance of 5.2 L over the past 24 hours. 03/15/2022, no major change in the patient's condition. The patient is still on 2 L of oxygen by nasal cannula. The patient is clinically and hemodynamically stable. There is still ongoing leak to be off CSF and the dural drain has drained approximately 250 mL over the past 8 hours.The patient is having episodes of atrial flutter/fibrillation. Rate is controlled. She is essentially primary position. He also distress. Occasional headaches. The patient remains on IV Lasix. The fluid balance over the past 24 hours has been -4.2 L and the patient continues to diabetes with IV Lasix. The patient has a fecal management system in Place and total amount of stool output has been 300 mL's. The patient remains on IV cefepime regarding the gram-negative sepsis and stool is being checked for C. diff. The patient is on Levemir insulin. The patient on NovoLog insulin for blood sugar control. 15 2021, the patient is resting comfortably in bed. She is currently on oxygen on room air oxygen. She was taken off the nasal cannula yesterday. She is using the [employer] spirometer. She remains on IV Lasix. Overall fluid balance is -3.7 L over the past 24 hours. The patient is calm and comfortable. No issues with pain. She has some motor function lower extremities bilaterally. She remains on IV Lasix. She remains on IV cefepime. The drain was removed yesterday by the surgical team. Fecal management system is still in place. The output is dropping the patient's stool is negative for C. diff. She remains on Levemir insulin for blood sugar control and she is also receiving NovoLog coverage. Her cardiac rhythm is currently and out of atrial fibrillation/flutter. This morning, she was found to be in sinus rhythm. She remains on Decadron 2 mg IV every 8 hours. No other complaints otherwise for now. Labs from today are still pending. Yesterday's labs were essentially adequate. On 03/17/2022, patient's condition is essentially stable. The patient continues to diabetes with IV Lasix and she has been negative fluid balance of 2.3 L over the past 24 hours. Electrodes are all stable. Sodium is at 131 and the BUN is 26 with a creatinine of 0.6. The white cell count of 8.1 with a hemoglobin of 10.5. Remains on IV cefepime. Remains on Decadron. Remains on Levemir insulin. Fecal management system is still in place and the diarrhea has been subsiding. She is awake and alert. She still and bedrest. Spine surgeries on the case. The patient is a over flow patient On 03/18/2022, the patient has no change in her overall condition. Resting comfortably. She remains on bedrest and she is laying down supine. She is on room air oxygen. Fluid balance is -4 L over the past 24 hours. Diarrhea has subsided. In terms of antibiotic coverage, the patient remains on IV cefepime. ID opted to continue the IV antibiotics for now. She remains on IV Lasix 40 mg 12 hours. Afebrile. Hemodynamically stable. The blood work shows a sodium level of 131 with a potassium level of 4.3, currently on 1 bicarb is 25 and a creatinine 0.59. Objective - Vital Signs Vital signs: Vital Signs Temp 98.2 F 03/18/22 12:00 Pulse 76 03/18/22 12:00 Resp 14 03/18/22 12:00 BP 126/69 03/18/22 12:00 Pulse Ox 97 03/18/22 12:00 FiO2 35 03/10/22 10:13 Intake & Output 03/17/22 03/18/22 03/18/22 18:59 06:59 18:59 Intake Total 520 1870 70 Output Total 5577 3413 1150 Balance -980 -473 -6483 Intake: IV 220 420 70 Caffeine-Sodium Benzoate 100 500 mg In Sodium Chloride 0.9% 100 ml @ 1002 mls/ hr IVPB ONCE ONE Rx#: [id number] Cefepime 2 gm In Sodium 200 Chloride 0.9% 100 ml @ 25 mls/hr IVPB Q12H [facility] Rx# :[id number] Sodium Chloride 0.9% 1, 20 220 70 000 ml @ 10 mls/hr IV . Q24H [facility] Rx#:[id number] Sodium Ferric Gluconat- 100 Sucrose 125 mg In Sodium Chloride 0.9% 100 ml @ 100 mls/hr IVPB DAILY [facility] Rx#:[id number] Oral 300 1450 Output: Urine 1500 2325 1150 Other: Voiding Method Indwelling Catheter Indwelling Catheter Indwelling Catheter ABP, PAP, CO, CI - Last Documented Arterial Blood Pressure 158/70 - Exam No acute distress, oriented 3. Currently on room air oxygen and the patient is calm and comfortable. Head exam was generally normal. There was no scleral icterus or corneal arcus. Mucous membranes were moist. HEENT examination is grossly unremarkable. Neck supple. Full range of motion. No adenopathy thyromegaly or neck vein distention. Cardiovascular examination reveals regular rhythm rate. S1-S2 normal. No S3 or S4. No discernible murmur noted. Heart sounds are distant. Lungs reveal clear breath sounds. Breath sounds are equal bilaterally. No adventitious lung sounds including wheezes rhonchi or crackles. Abdomen soft bowel sounds are heard. No masses or tenderness. Extremities are intact. Slight edema of the extremities. No cyanosis or clubbing. Skin is without rash or lesion. Large hematoma about the right breast. Neurologic examination is brief but nonfocal. The patient's strength is quite diminished in lower extremity bilaterally. Please refer to the spine surgeons evaluation regarding the motor function and reflexes. Cranial nerves are essentially intact and the patient is awake and alert. She is also oriented. - Labs CBC & Chem 7: 03/17/22 05:54 03/18/22 06:04 Labs: Abnormal Lab Results - Last 24 Hours (Table) 03/17/22 03/17/22 03/18/22 Range/Units 16:45 20:40 06:04 Sodium 131 L (137-145) mmol/L BUN 26 H (7-17) mg/dL Glucose 156 H (74-99) mg/dL POC Glucose (mg/dL) 217 H 259 H (70-110) mg/dL Calcium 8.0 L (8.4-10.2) mg/dL 03/18/22 03/18/22 03/18/22 Range/Units 08:42 09:24 11:42 Sodium (137-145) mmol/L BUN (7-17) mg/dL Glucose (74-99) mg/dL POC Glucose (mg/dL) 144 H 134 H 229 H (70-110) mg/dL Calcium (8.4-10.2) mg/dL Assessment and Plan Plan: Acute sepsis secondary to UTI with Enterobacter with hypotension secondary to ba cteremia/urinary tract infection with Enterobacter. The patient is currently on IV cefepime. Hemodynamically stable. The patient continues to complete his course of antibiotics with IV cefepime altered mental status , recovered, back to normal Atrial flutter fibrillation/flutter with a rapid ventricular response requiring amiodarone. She is in sinus tchycardia and she is on Po aniodarone and Lopressor, no anticoagulants due to GIB, and the dose of metoprolol was increased up to 50 mg by mouth 3 times a day, nontender guidance of utilized yet Lactic acidosis, improved Acute renal failure, improved and the creatinine is normalized Hyperkalemia, improved. Hyponatremia, recovered. Leukocytosis, improved. GIB and the patient and an EDG (gastritis and esophagitis) , inactive an stable Acute anemia with a hemoglobin dropped to 5.4. The patient had developed a large right sided chest wall/breast hematoma suspect secondary to fall on 03/06/2022. Hb is stable for now and the bladder awaiting labs from this morning. Lumbar decompression/fusion postoperative day #21. On 03/09/2022 she did require exploration and washout with dural repairs due to falls. Hemo-vac placed. Postoperative day #8 . The drain has been removed yesterday by the surgical team. Dural tear/leak and the patinet had a drain that was removed and there is no ongoing leak at this point in time Cardiac arrest, brief pulseless electrical activity encountered in the operating room. Acute hypoxic/hypercapnic respiratory failure secondary to cardiac arrest/PEA. Morbid obesity, BMI of 49.0. History of right hemidiaphragm paralysis. History of right-sided breast cancer, previous lumpectomy. Chronic atrial fibrillation/flutter. Dyslipidemia. Benign essential hypertension. diabetes mellitus, maintained on Decadron and the patient is a component of steroid-induced hyperglycemia, and currently the patient is on Levemir insulin at 20 units in addition to a sliding scale coverage. CHF with an ejection fraction of 35-40% Fluid overload with increased lower extremity edema currently on a combination of Lasix 40 mg IV every 12 hours in addition to Diamox, The patient remains in negative fluid balance Diarrhea, currently has a fecal management system in place and the patient has negative stool for C. diff. Plan clinically unchanged May transfer this patient also the intensive care unit Continue using the spirometer Keep the patient flat in bed per surgical recommendation and the patient will be turned every 2 hours. continue IV cefepime for now, coordinated with infectious disease regarding the possibility of switching to oral antibiotics Plan control with Tylenol Acetazolamide Monitor the hemoglobin Surgical wound dressed by spine surgery Watch for signs of GI bleeding No anticoagulants for now Continue amiodarone 400 mg BID and and the metoprolol 50 mg by mouth 3 times a day Continue IV iron treatment Continue IV Lasix 40 mg, Currently in negative fluid balance Continue Aldactone We'll continue to follow
[2022-03-18 17:27] LABS: Glucose,Whole Blood 302 mg/dL (70-110)
[2022-03-18 20:52] LABS: Glucose,Whole Blood 273 mg/dL (70-110)
[2022-03-18] MEDS: CYCLOBENZAPRINE 10 MG TAB PO PRN (21:08)
[2022-03-19] MEDS: SODIUM CHLORIDE 0.9% 1,000 ML IV SCH (04:20)
[2022-03-19 06:47] LABS: Glucose,Whole Blood 177 mg/dL (70-110)
[2022-03-19] MEDS: ACETAMINOPHEN TAB 500 MG TAB PO SCH ×3 (06:49→17:01)
[2022-03-19] MEDS: INSULIN ASPART (NovoLOG) 100 UNIT/ML VIAL SQ SCH ×4 (06:50→21:00)
[2022-03-19] MEDS: INSULIN DETEMIR (LEVEMIR) 100 UNIT/ML SYR SQ SCH (06:50)
[2022-03-19] MEDS: LEVOTHYROXINE 88 MCG TAB PO SCH (06:50)
[2022-03-19 07:35] LABS: Anisocytosis Slight; Basophils % (A) 0 %; Eosinophils % (A) 0 %; HCT 36.3 % (34.0-46.0); HGB 11.7 gm/dL (11.4-16.0); Lymphocytes # (A) 0.6 k/uL (1.0-4.8); Lymphocytes % (A) 16 %; MCH 29.8 pg (25.0-35.0); MCHC 32.2 g/dL (31.0-37.0); MCV 92.5 fL (80.0-100.0); Mean Platelet Volume 9.6; Monocytes # (A) 0.2 k/uL (0-1.0); Monocytes % (A) 5 %; Neutrophils # (A) 3.1 k/uL (1.3-7.7); Neutrophils % (A) 77 %; Platelet Count 144 k/uL (150-450); Poikilocytosis Slight; RBC 3.93 m/uL (3.80-5.40); RDW 18.1 % (11.5-15.5)
[2022-03-19 07:48] LABS: African American GFR (CKD) >90 (>60 ml/min/1.73 sqM); Anion Gap 7 mmol/L; Blood Urea Nitrogen 27 mg/dL (7-17); Calcium 7.9 mg/dL (8.4-10.2); Carbon Dioxide 25 mmol/L (22-30); Chloride 100 mmol/L (98-107); Glucose 143 mg/dL (74-99); Non-African American GFR(CKD) >90 (>60 ml/min/1.73 sqM); Potassium 4.5 mmol/L (3.5-5.1); Sodium 132 mmol/L (137-145)
[2022-03-19] MEDS: SODIUM FERRIC GLUCONAT-SUCROSE 125 MG in SODIUM CHLORIDE 0.9% 100 ML IVPB SCH (08:51)
[2022-03-19] MEDS: CAFFEINE-SODIUM BENZOATE 500 MG in SODIUM CHLORIDE 0.9% 100 ML IVPB SCH (08:54)
[2022-03-19] MEDS: AMIODARONE 200 MG TAB PO SCH ×2 (09:17→21:00)
[2022-03-19] MEDS: ATORVASTATIN 10 MG TAB PO SCH (09:18)
[2022-03-19] MEDS: BUTALB/APAP/CAFF 50-325-40MG TAB PO PRN ×2 (09:18→16:12)
[2022-03-19] MEDS: lisinopriL 5 MG TAB PO SCH (09:18)
[2022-03-19] MEDS: DULoxetine HCL 60 MG CAPSULE.DR PO SCH (09:18)
[2022-03-19] MEDS: METOPROLOL TARTRATE 50 MG TAB PO SCH ×3 (09:18→21:01)
[2022-03-19] MEDS: SPIRONOLACTONE 25 MG TAB PO SCH (09:18)
[2022-03-19] MEDS: DEXAMETHASONE SOD PHOSPHATE 4 MG/ML 1 ML VIAL IVP SCH ×2 (09:19→16:13)
[2022-03-19] MEDS: PANTOPRAZOLE 40 MG/10 ML VIAL IVP SCH (09:19)
[2022-03-19] MEDS: CEFEPIME 2 GM in SODIUM CHLORIDE 0.9% 100 ML IVPB SCH ×2 (09:19→21:00)
[2022-03-19] MEDS: CHOLESTYRAMINE (WITH SUGAR) 4 GM PACKET PO SCH ×2 (09:19→17:03)
[2022-03-19] MEDS: FUROSEMIDE 10 MG/ML 4 ML VIAL IV SCH (09:19)
[2022-03-19] MEDS: GABAPENTIN 400 MG CAP PO SCH ×3 (09:19→21:01)
[2022-03-19] MEDS: MAG HYDROX/AL HYDROX/SIMETH 30 ML, diphenhydrAMINE ELIXIR 75 MG, LIDOCAINE VISCOUS 2% 3... PO SCH ×9 (09:20→21:01)
--- NOTE | 2022-03-19 09:23 | P.PN ---
Subjective Progress Note Date: 03/19/22 PROGRESS NOTE The patient is a 71-year-old female who underwent lumbar surgery on February 24 for severe stenosis, mechanical low back pain and neurogenic claudication. She has a known history of atrial flutter, atrial fibrillation. She continues to be in atrial flutter at this time with 2 to one conduction. She had an echocardiogram on February 27 that showed an ejection fraction of 35-40% with moderate mitral regurgitation. In 2018 her LV systolic function was normal. It is unclear if this deterioration is an acute event following her surgery. She feels better overall, has musculoskeletal right-sided discomfort. She is not anticoagulated because of recent bleeding. She denies any nausea or vomiting. Her blood pressure is under good control. She had positive urine culture. March 14: The patient is feeling slightly better today, she denies any chest discomfort or dizziness. She continues to be in atrial flutter with 2 to one conduction. She had episodes of her lower heart rate. She is tolerating her present medical regimen. She has no evidence of ventricular tachycardia. She continues to be in bed, she is allowed to lift her head 30 today. She has no nausea or vomiti ng. She has no dizziness or palpitations. Her right-sided chest discomfort has improved. Her anticoagulation remains on hold because of her anemia and hematoma. March 15: Patient continues to have soreness but better. She has mild nausea but no significant dyspnea. Her atrial flutter rate is under better control. She denies any chest discomfort, dizziness or palpitations. She continues to be at bedrest. Her blood pressures been stable on the present regimen. March 16: The patient continues to be in atrial flutter with controlled ventricular response. She feels better overall but continues to feel fatigued. She denies any chest discomfort, dizziness or palpitations. She continues to be at bedrest because of a leak. Her urine output is stable. She is not anticoagulated yet per surgical team. Hemodynamically she is stable. March 17: Patient is feeling well overall remains in bed flat, she continues to be in atrial flutter with controlled ventricular response. She has not been anticoagulated per surgical team. She denies any chest discomfort, her breathing is better. She denies any dizziness or palpitations, no nausea. She is tolerating by mouth. She has no fever. March 18: The patient is complaining of left sided respirophasic and muscular chest dis comfort. She has some discomfort in her mouth. She continues to be in atrial flutter with controlled ventricular response. She denies any dizziness or palpitations. She continues to be a bedrest. She has no arrhythmia. She has mild nausea. Not anticoagulated yet per surgical team. March 19: She continues to have soreness in her mouth but otherwise denies any chest discomfort, she has some wheezes but does not feel dyspneic. She has good urine output. She continues to be in atrial fibrillation with controlled ventricular response. Anticoagulation has not been initiated yet by the surgical team. Her blood pressure is stable and she is on no vasopressors. She continues to be at bedrest. Medications: Amiodarone 200 mg twice a day, Lipitor 10 mg daily, Lasix 40 mg IV every 12 h ours, metoprolol 50 mg 3 times a day, Protonix. Lisinopril 5 mg daily, Aldactone 25 mg daily, Diamox 250 mg daily, Questran PHYSICAL EXAMINATION: Blood pressure 137/60, heart rate 92, afebrile LUNGS: Scattered wheezes HEART: Irregular rate and rhythm, , S1, S2. No S3. No systolic murmur ABDOMEN: Soft, nontender, no organomegaly, obese EXTREMETIES: Trace to +1 edema LAB: BUN 27, creatinine 0.6, potassium 4.5. IMPRESSION: 1. Status post back surgery 2. Atrial flutter with controlled ventricular response, not anticoagulated because of recent bleeding, awaiting input of surgery to resume anticoagulation 3. Anemia, stable 4. Cardiomyopathy of unknown etiology, no evidence of acute CHF at this time 5. Bacteremia 6. Acute renal injury resolved 7. Morbid obesity 8. Hyperlipidemia 9. Hypertension, controlled PLAN: 1. Awaiting the input of the surgical team regarding anticoagulation 2. Continue beta nic and amiodarone 3. Follow blood pressure and increase VEGA inhibitor if stable 4. Physical activity per surgical team Objective - Vital Signs Vital signs: Vital Signs Temp 97.2 F L 03/19/22 08:00 Pulse 92 03/19/22 08:00 Resp 14 03/19/22 08:00 BP 137/67 03/19/22 08:00 Pulse Ox 97 03/19/22 08:00 FiO2 35 03/10/22 10:13 Intake & Output 03/18/22 03/19/22 03/19/22 18:59 06:59 18:59 Intake Total 70 110 Output Total 1150 1750 Balance -1080 -1640 Intake: IV 70 110 Sodium Chloride 0.9% 1, 70 110 000 ml @ 10 mls/hr IV . Q24H [facility] Rx#:[id number] Output: Urine 1150 1750 Other: Voiding Method Indwelling Catheter Indwelling Catheter ABP, PAP, CO, CI - Last Documented Arterial Blood Pressure 158/70 - Labs CBC & Chem 7: 03/19/22 07:13 03/19/22 07:13 Labs: Abnormal Lab Results - Last 24 Hours (Table) 03/18/22 03/18/22 03/18/22 Range/Units 09:24 11:42 17:25 RDW (11.5-15.5) % Plt Count (150-450) k/uL Lymphocytes # (1.0-4.8) k/uL Sodium (137-145) mmol/L BUN (7-17) mg/dL Glucose (74-99) mg/dL POC Glucose (mg/dL) 134 H 229 H 302 H (70-110) mg/dL Calcium (8.4-10.2) mg/dL 03/18/22 03/19/22 03/19/22 Range/Units 20:50 06:35 07:13 RDW 18.1 H (11.5-15.5) % Plt Count 144 L (150-450) k/uL Lymphocytes # 0.6 L (1.0-4.8) k/uL Sodium (137-145) mmol/L BUN (7-17) mg/dL Glucose (74-99) mg/dL POC Glucose (mg/dL) 273 H 177 H (70-110) mg/dL Calcium (8.4-10.2) mg/dL 03/19/22 Range/Units 07:13 RDW (11.5-15.5) % Plt Count (150-450) k/uL Lymphocytes # (1.0-4.8) k/uL Sodium 132 L (137-145) mmol/L BUN 27 H (7-17) mg/dL Glucose 143 H (74-99) mg/dL POC Glucose (mg/dL) (70-110) mg/dL Calcium 7.9 L (8.4-10.2) mg/dL
[2022-03-19] MEDS: acetaZOLAMIDE 250 MG TAB PO SCH (09:56)
--- NOTE | 2022-03-19 09:56 | P.PN ---
Subjective Progress Note Date: 03/19/22 Patient denies any acute complaints. No other acute issues overnight. Objective - Vital Signs Vital signs: Vital Signs Temp 97.2 F L 03/19/22 08:00 Pulse 92 03/19/22 08:00 Resp 14 03/19/22 08:00 BP 137/67 03/19/22 08:00 Pulse Ox 97 03/19/22 08:00 FiO2 35 03/10/22 10:13 Intake & Output 03/18/22 03/19/22 03/19/22 18:59 06:59 18:59 Intake Total 70 110 Output Total 1150 1750 Balance -1080 -1640 Intake: IV 70 110 Sodium Chloride 0.9% 1, 70 110 000 ml @ 10 mls/hr IV . 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 PRACTITIONER - Moving all 4 extremities spontaneously Psych - Calm and cooperative - Labs CBC & Chem 7: 03/19/22 07:13 03/19/22 07:13 Labs: Abnormal Lab Results - Last 24 Hours (Table) 03/18/22 03/18/22 03/18/22 Range/Units 11:42 17:25 20:50 RDW (11.5-15.5) % Plt Count (150-450) k/uL Lymphocytes # (1.0-4.8) k/uL Sodium (137-145) mmol/L BUN (7-17) mg/dL Glucose (74-99) mg/dL POC Glucose (mg/dL) 229 H 302 H 273 H (70-110) mg/dL Calcium (8.4-10.2) mg/dL 03/19/22 03/19/22 03/19/22 Range/Units 06:35 07:13 07:13 RDW 18.1 H (11.5-15.5) % Plt Count 144 L (150-450) k/uL Lymphocytes # 0.6 L (1.0-4.8) k/uL Sodium 132 L (137-145) mmol/L BUN 27 H (7-17) mg/dL Glucose 143 H (74-99) mg/dL POC Glucose (mg/dL) 177 H (70-110) mg/dL Calcium 7.9 L (8.4-10.2) mg/dL Assessment and Plan Assessment: #Septic shock on admission #Enterobacter cloacae bacteremia with likly source UTI #Enterobacter cloacae UTI #Lactic acidosis Currently off mechanical ventilation and pressors. Continue cefepime as per per infectious disease. C.difficile negative. Telemetry monitoring. Pulmonology/ICU on board. #Acute blood loss anemia likely sec to GI bleeding from ischemic colitis #Right breast hematoma secondary to CPR from cardiac arrest She is status post total of 7 units of PRBC transfusion. EGD showed mild gastritis and mild esophagitis with no active bleeding Surgery recommends to continue to hold anticoagulation Continue with PPI CT surgery recommends conservative management of hematoma. She is iron deficient, resume IV Ferrlecit #Abdominal pain #IIeus versus SBO Gen. surgery advancing diet Patient now having diarrhea and questron has been started #Acute kidney injury #Hyponatremia Resolved Renal US shows no hydronephrosis on the R, enlarged cyst in the L kidney measuring up to 8.3 cm. BETHANY likely due to ATN from septic shock and hypoNa from poor oral intake. Nephrology on board. #Transaminitis Improved Likely ischemic hepatitis secondary to shock liver. Improved #Atrial fibrillation #Atrial flutter with RVR Anticoagulation discontinued due to blood loss. Patient currently on metoprolol 50 mg 3 times a day Patient also on amiodarone Cardiology managing #Acute on chronic systolic CHF chronic Echo shows EF 35-40% with severe pulmonary HTN, moderate MR. Patient will need ischemic workup. Patient started on ACEi and Aldactone Continue IV Lasix as per cardiology Cardiology on board. #T10 to pelvis decompression with fusion #Post-op pain #Status post second look wound debridement on 03/09 Management per Orthopedic surgery. Gabapentin, Decadron. Continue with oxycodone PRN. Patient has no stairs and planning on going home, she has nearby help from family but lives alone. Patient currently on bed rest. Awaiting for orthopedic surgery to clear patient for PT OT #Aborted sudden cardiac Cardiology on board. Echocardiogram shows EF 35-40% with moderate MR. #Hyperglycemia likely sec to steroids No official DM diagnosis Levemir 20 units daily. A1c is 6, likely prediabetic, will benefit from metformin upon discharge. #Right diaphragmatic paralysis Aggressive pulmonary hygiene. Pulmonology on board. #HLD Statin. #HTN Resume lisinopril DVT prophylaxis: Holding anticoagulation until cleared by orthopedic surgery Disposition: Once patient is cleared for out of bed activity by orthopedic surgery we can then start working on discharge planning. Thank you for the consult. Please do not hesitate to call us with any questions.
[2022-03-19 11:12] LABS: Glucose,Whole Blood 230 mg/dL (70-110)
--- NOTE | 2022-03-19 13:14 | P.PN ---
Subjective Progress Note Date: 03/19/22 03/13/2022, seeing the patient for a follow-up. This morning, the patient is awake and alert and she is on 2 L of oxygen by nasal cannula. She denies having any signs of any respiratory distress. She is recovering from a septic shock secondary to Enterobacter bacteremia and this is probably related to a urinary tract infection as the same bacteria was cultured in the urine and in the blood. The patient is currently covered with Rocephin, and buttocks and the patient is currently on IV cefepime. The patient has no fever. No chills. No altered mentation she is able to communicate effectively. She has a recent T10 to pelvis decompression with fusion. Pain is under adequate control for now. She had a second look 1 debridement on 03/09/2022. She does have irregular leak and the patient is a drain in place and output is in order of 600 mL overnight. Spine surgeries on the case. The one is to be changed today. She remains in sinus rhythm. She was having episodes of into fibrillation/flutter and she is currently on oral amiodarone and Lopressor. No anticoagulation was done due to concerns of blood loss and GI bleeds. Noted the patient had a acute blood loss anemia secondary to GI bleeding and the patient also had a traumatic right breast hematoma both of which contributed to drop in hemoglobin. The patient had a lowest hemoglobin of 5.4. The patient's most and hemoglobin currently is up to 9.6 and the currently stable. No anticonvulsants are being utilized for now. The patient is also on Decadron. She has developed a component of syringes hyperglycemia and the patient is currently on no long-acting sugar control and and was started the patient Levemir insulin in addition to a sliding scale coverage. She is having diarrhea. She has a fecal management system in [facility]. Stool for C. diff has been negative. No other significant events otherwise for now. On 03/14/2022, seeing the patient for a follow-up. Patient has no complaints. She was allowed to raise the head of the bed elevated by 10 of the time. She is on 2 L of Oxymizer nasal cannula. Her cardiac rhythm is still itchy fibrillation/flutter the metoprolol dose has been adjusted and it was increased by cardiology. CSF leak is improved and the patient's drainage catheter is accumulated only 60 mL over the past 24 hours. Meanwhile, the patient completes her IV antibiotic course with cefepime. The patient has a gram-negative sepsis secondary to urinary tract infection. The patient is don't was is down to 10.2 with a hemoglobin 10.1 and his sodium levels of 134 with a potassium level of 4.1, BUN is 26 and a creatinine of 0.6. No other new complaints otherwise for now. He is awake and alert and she is communicating. Surgical wound is being dressed by the spine surgeon. The patient is hemodynamically stable. Alert and awake. There is motivated lower oximetry is bilaterally and there is increased edema and the patient is also receiving Lasix 40 mg IV push every 12 hours and she is in a negative fluid balance of 5.2 L over the past 24 hours. 03/15/2022, no major change in the patient's condition. The patient is still on 2 L of oxygen by nasal cannula. The patient is clinically and hemodynamically stable. There is still ongoing leak to be off CSF and the dural drain has drained approximately 250 mL over the past 8 hours.The patient is having episodes of atrial flutter/fibrillation. Rate is controlled. She is essentially primary position. He also distress. Occasional headaches. The patient remains on IV Lasix. The fluid balance over the past 24 hours has been -4.2 L and the patient continues to diabetes with IV Lasix. The patient has a fecal management system in Place and total amount of stool output has been 300 mL's. The patient remains on IV cefepime regarding the gram-negative sepsis and stool is being checked for C. diff. The patient is on Levemir insulin. The patient on NovoLog insulin for blood sugar control. 15 2021, the patient is resting comfortably in bed. She is currently on oxygen on room air oxygen. She was taken off the nasal cannula yesterday. She is using the [employer] spirometer. She remains on IV Lasix. Overall fluid balance is -3.7 L over the past 24 hours. The patient is calm and comfortable. No issues with pain. She has some motor function lower extremities bilaterally. She remains on IV Lasix. She remains on IV cefepime. The drain was removed yesterday by the surgical team. Fecal management system is still in place. The output is dropping the patient's stool is negative for C. diff. She remains on Levemir insulin for blood sugar control and she is also receiving NovoLog coverage. Her cardiac rhythm is currently and out of atrial fibrillation/flutter. This morning, she was found to be in sinus rhythm. She remains on Decadron 2 mg IV every 8 hours. No other complaints otherwise for now. Labs from today are still pending. Yesterday's labs were essentially adequate. On 03/17/2022, patient's condition is essentially stable. The patient continues to diabetes with IV Lasix and she has been negative fluid balance of 2.3 L over the past 24 hours. Electrodes are all stable. Sodium is at 131 and the BUN is 26 with a creatinine of 0.6. The white cell count of 8.1 with a hemoglobin of 10.5. Remains on IV cefepime. Remains on Decadron. Remains on Levemir insulin. Fecal management system is still in place and the diarrhea has been subsiding. She is awake and alert. She still and bedrest. Spine surgeries on the case. The patient is a over flow patient On 03/18/2022, the patient has no change in her overall condition. Resting comfortably. She remains on bedrest and she is laying down supine. She is on room air oxygen. Fluid balance is -4 L over the past 24 hours. Diarrhea has subsided. In terms of antibiotic coverage, the patient remains on IV cefepime. ID opted to continue the IV antibiotics for now. She remains on IV Lasix 40 mg 12 hours. Afebrile. Hemodynamically stable. The blood work shows a sodium level of 131 with a potassium level of 4.3, currently on 1 bicarb is 25 and a creatinine 0.59. On 03/19/2022, the patient is laying down with 20 bed elevation. Unable to raise the head of the bed further because of increased headache and the patient states that her brain gets frozen. She is currently on IV caffeine. She is also on Diamox. Surgical once is striking and intact. The patient has produced another negative fluid balance of 4 L over the past 24 hours while being on IV Lasix. Lower extremity edema has improved considerably. No new complaints. White cell cause of 4 with a hemoglobin of 11.7. Sodium is 132, bicarb is 25, BUN is 27, creatinine 0.6. The patient was also started on Fioricet for headaches. No fever or chills. She is currently on room air oxygen. Tolerating diet. Remains on IV cefepime. Objective - Vital Signs Vital signs: Vital Signs Temp 97.4 F L 03/19/22 11:29 Pulse 78 03/19/22 11:29 Resp 19 03/19/22 11:29 BP 105/78 03/19/22 11:29 Pulse Ox 97 03/19/22 11:29 FiO2 35 03/10/22 10:13 Intake & Output 03/18/22 03/19/22 03/19/22 18:59 06:59 18:59 Intake Total 70 110 Output Total 1150 1750 Balance -1080 -1640 Intake: IV 70 110 Sodium Chloride 0.9% 1, 70 110 000 ml @ 10 mls/hr IV . Q24H [facility] Rx#:[id number] Output: Urine 1150 1750 Other: Voiding Method Indwelling Catheter Indwelling Catheter Indwelling Catheter ABP, PAP, CO, CI - Last Documented Arterial Blood Pressure 158/70 - Exam No acute distress, oriented 3. Currently on room air oxygen and the patient is calm and comfortable. Head exam was generally normal. There was no scleral icterus or corneal arcus. Mucous membranes were moist. HEENT examination is grossly unremarkable. Neck supple. Full range of motion. No adenopathy thyromegaly or neck vein d istention. Cardiovascular examination reveals regular rhythm rate. S1-S2 normal. No S3 or S4. No discernible murmur noted. Heart sounds are distant. Lungs reveal clear breath sounds. Breath sounds are equal bilaterally. No adventitious lung sounds including wheezes rhonchi or crackles. Abdomen soft bowel sounds are heard. No masses or tenderness. Extremities are intact. Slight edema of the extremities. No cyanosis or clubbing. Skin is without rash or lesion. Large hematoma about the right breast. Neurologic examination is brief but nonfocal. The patient's strength is quite diminished in lower extremity bilaterally. Please refer to the spine surgeons evaluation regarding the motor function and reflexes. Cranial nerves are essentially intact and the patient is awake and alert. She is also oriented. - Labs CBC & Chem 7: 03/19/22 07:13 03/19/22 07:13 Labs: Abnormal Lab Results - Last 24 Hours (Table) 03/18/22 03/18/22 03/19/22 Range/Units 17:25 20:50 06:35 RDW (11.5-15.5) % Plt Count (150-450) k/uL Lymphocytes # (1.0-4.8) k/uL Sodium (137-145) mmol/L BUN (7-17) mg/dL Glucose (74-99) mg/dL POC Glucose (mg/dL) 302 H 273 H 177 H (70-110) mg/dL Calcium (8.4-10.2) mg/dL 03/19/22 03/19/22 03/19/22 Range/Units 07:13 07:13 11:10 RDW 18.1 H (11.5-15.5) % Plt Count 144 L (150-450) k/uL Lymphocytes # 0.6 L (1.0-4.8) k/uL Sodium 132 L (137-145) mmol/L BUN 27 H (7-17) mg/dL Glucose 143 H (74-99) mg/dL POC Glucose (mg/dL) 230 H (70-110) mg/dL Calcium 7.9 L (8.4-10.2) mg/dL Assessment and Plan Plan: Acute sepsis secondary to UTI with Enterobacter with hypotension secondary to bacteremia/urinary tract infection with Enterobacter. The patient is currently on IV cefepime. Hemodynamically stable. The patient continues to complete his course of antibiotics with IV cefepime altered mental status , recovered, back to normal Atrial flutter fibrillation/flutter with a rapid ventricular response requiring amiodarone. She is in sinus tchycardia and she is on Po aniodarone and Lopressor, no anticoagulants due to GIB, and the dose of metoprolol was increased up to 50 mg by mouth 3 times a day, nontender guidance of utilized yet Lactic acidosis, improved Acute renal failure, improved and the creatinine is normalized Hyperkalemia, improved. Hyponatremia, recovered. Leukocytosis, improved. GIB and the patient and an EDG (gastritis and esophagitis) , inactive an stable Acute anemia with a hemoglobin dropped to 5.4. The patient had developed a large right sided chest wall/breast hematoma suspect secondary to fall on 03/06/2022. Hb is stable for now and the bladder awaiting labs from this morning. Lumbar decompression/fusion postoperative day #23. On 03/09/2022 she did require exploration and washout with dural repairs due to falls. Hemo-vac placed. Postoperative day #10 . The drain has been removed yesterday by the surgical team. Dural tear/leak and the patinet had a drain that was removed and there is no ongoing leak at this point in time, at this point in time, the patient is a day for the degrees head of the bed elevation. The patient is currently on caffeine and fluid sent for pain/headache. Cardiac arrest, brief pulseless electrical activity encountered in the operating room. Acute hypoxic/hypercapnic respiratory failure secondary to cardiac arrest/PEA. Morbid obesity, BMI of 49.0. History of right hemidiaphragm paralysis. History of right-sided breast cancer, previous lumpectomy. Chronic atrial fibrillation/flutter. Dyslipidemia. Benign essential hypertension. diabetes mellitus, maintained on Decadron and the patient is a component of steroid-induced hyperglycemia, and currently the patient is on Levemir insulin at 20 units in addition to a sliding scale coverage. CHF with an ejection fraction of 35-40% Fluid overload with increased lower extremity edema currently on a combination of Lasix 40 mg IV every 12 hours in addition to Diamox, The patient remains in negative fluid balance Diarrhea, currently has a fecal management system in place and the patient has negative stool for C. diff. Plan clinically unchanged Unable to raise the head of the bed further because of increased headaches This will be discussed with spine surgeon IV caffeine and Fioricet Continue using the spirometer Keep the patient flat in bed per surgical recommendation and the patient will be turned every 2 hours. continue IV cefepime for now, coordinated with infectious disease regarding the possibility of switching to oral antibiotics Plan control with Tylenol Acetazolamide Monitor the hemoglobin Surgical wound dressed by spine surgery Watch for signs of GI bleeding No anticoagulants for now Continue amiodarone 400 mg BID and and the metoprolol 50 mg by mouth 3 times a day Continue IV iron treatment Continue IV Lasix 40 mg, and dropped the dose to once a day Continue Aldactone We'll continue to follow
--- NOTE | 2022-03-19 13:36 | P.PN ---
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 She is doing well this AM. Denies any sx over night some pain and mild LOZANO when rolled but otherwise doing well. Moving her legs et. Denies any perineal sx. Dressing is CDI along with incision on log roll. Denies any N, V, Vision changes. Objective - Vital Signs Vital signs: Vital Signs Temp 97.3 F L 03/19/22 04:00 Pulse 76 03/19/22 04:00 Resp 18 03/19/22 04:00 BP 132/69 03/19/22 04:00 Pulse Ox 96 03/19/22 04:00 FiO2 35 03/10/22 10:13 Intake & Output 03/18/22 03/19/22 03/19/22 18:59 06:59 18:59 Intake Total 70 110 Output Total 1150 1750 Balance -1080 -1640 Intake: IV 70 110 Sodium Chloride 0.9% 1, 70 110 000 ml @ 10 mls/hr IV . Q24H [facility] Rx#:[id number] Output: Urine 1150 1750 Other: Voiding Method Indwelling Catheter Indwelling Catheter ABP, PAP, CO, CI - Last Documented Arterial Blood Pressure 158/70 - Exam No changes today PHYSICAL EXAMINATION: Vitals: Stable General: Awake, alert, appropriate for age, in no acute distress. HEENT: No changes Extremities: Skin warm and dry without no acute lesions, coloration, temperature, skin intact, no tenderness or erythema. Integument: Surgical incisions: Dressings CDI Warren Cath present and patent FMS present and patent Palpation: Special findings: pain with palpation of the right breast area with large hematoma noted as well as anterior chest wall. VASCULAR STATUS : Wrist Pulses: [2/4 bilateral radial and ulnar] Pedal Pulses: [2/4 bilateral DP and PT] Color: [Normal] Edema: Improved in arms and hands. NEUROLOGIC EXAMINATION: Mental Status: Awake and alert, oriented,but slow with normal attention, concentration and memory, and fluent, he has slow speech Cranial Nerves: I: Olfactory not tested. II: Visual acuity normal, no visual field deficit noted with confrontation. III,IV: Normal pupillary reflexes & intact extraocular movements without nystagmus. V,: Intact symmetrical facial sensation. VII: Intact symmetrical facial motor movement VIII: Hearing intact. IX,X: Intact gag, swallow, & normal voice. XI: Sternocleidomastoid, trapezius function intact. XII: Tongue midline with normal movements. Special Tests: L'hermitte's Sign: Absent Straight Leg Raising: Absent Bilateral Motor Exam (0-5/5, N/T) STRENGTH 4+ out of 5 strength in upper extremity's bilaterally all major muscle groups without focal deficits generalized weakness 4- to 5 strength bilateral lower extremities all major muscle groups with generalized weakness no focal deficits. She is weak in her hip flexors currently. REFLEXES Upper Extremity: RIGHT [2]/4 LEFT [2]/4 Lower Extremity: RIGHT [2]/4 LEFT [2]/4 Pathological Reflexes Warren's: RIGHT [Absent] LEFT [Absent] Babinski: RIGHT [Absent] LEFT [Absent] Clonus: RIGHT [None] LEFT [None] SENSORY Intact Gait and Functional Evaluation: Lay Flat, Bedrest - Labs CBC & Chem 7: 03/19/22 07:13 03/19/22 07:13 Labs: Abnormal Lab Results - Last 24 Hours (Table) 03/18/22 03/18/22 03/18/22 Range/Units 08:42 09:24 11:42 RDW (11.5-15.5) % Plt Count (150-450) k/uL Lymphocytes # (1.0-4.8) k/uL Sodium (137-145) mmol/L BUN (7-17) mg/dL Glucose (74-99) mg/dL POC Glucose (mg/dL) 144 H 134 H 229 H (70-110) mg/dL Calcium (8.4-10.2) mg/dL 03/18/22 03/18/22 03/19/22 Range/Units 17:25 20:50 06:35 RDW (11.5-15.5) % Plt Count (150-450) k/uL Lymphocytes # (1.0-4.8) k/uL Sodium (137-145) mmol/L BUN (7-17) mg/dL Glucose (74-99) mg/dL POC Glucose (mg/dL) 302 H 273 H 177 H (70-110) mg/dL Calcium (8.4-10.2) mg/dL 03/19/22 03/19/22 Range/Units 07:13 07:13 RDW 18.1 H (11.5-15.5) % Plt Count 144 L (150-450) k/uL Lymphocytes # 0.6 L (1.0-4.8) k/uL Sodium 132 L (137-145) mmol/L BUN 27 H (7-17) mg/dL Glucose 143 H (74-99) mg/dL POC Glucose (mg/dL) (70-110) mg/dL Calcium 7.9 L (8.4-10.2) mg/dL Assessment and Plan Assessment: 1. 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 Status post 7 units PRBC and 1 pack platelets -bilateral lower extremity weakness, status post multiple controlled falls in- house -Enterobacter sepsis, UTI -status post cardiac arrest Plan: -Appreciate retail sales consultant and team management PCC and medicine -Appreciate cardiothoracic, Gen. surgery, nephrology, ID evaluations -Continue Activity: Attempt at increase HOB to 20 deg today. Turn q2. Continue in bed therapy with ankle pumps to motions but squeezes quad thrusts and are motions. -Daily proning 5-10 min work up to 10 -Cont Abx for duration of stay -Caffiene daily 200 mg daily -Add Fioracet if able daily for LOZANO -Pain control: Adequate today ( Tylenol 1000 mg MEHUL, Oxy IR q4 hrs 10-15 mg titrated to pain (pt been on [place] for 20 yrs), Cont Gabapentin,) -Acetazolamide 250mg daily, Stop tomorrow -Meplex pads on sacral region with barrier cream. Cont turn. Sit at different angles. -Meds: reviewed -Trend labs -Transfusions to vitals -GI ppx: senna, Miralax -Continue Warren changed per protocol -Cont with FBS -DVT PPX: Mechanical only -Hygiene: Maintain dressing clean and dry. Meticulous cleaning after BMs away from incision site patient has had several instances on the floor where she was covered and bowel movement as well as urine up to her shoulders on her back. The wound needs to be kept meticulously clean. -Encourage IS 10x/hr -Possible to transfer out of unit by Sunday if stable.
[2022-03-19 16:27] LABS: Glucose,Whole Blood 175 mg/dL (70-110)
[2022-03-19 20:27] LABS: Glucose,Whole Blood 224 mg/dL (70-110)
[2022-03-19] MEDS: RIVAROXABAN 20 MG TAB PO SCH (21:01)
--- NOTE | 2022-03-19 21:03 | P.PN ---
Subjective Progress Note Date: 03/19/22 Principal diagnosis: UTI and bacteremia Patient is a 71-year-old female with a past medical history difficult for atrial fibrillation flutter hypertension hyperlipidemia hypothyroidism right breast cancer electively admitted to the hospital more than 2 weeks ago 022 for T10 to lumbar spine revision decompression and posterior lateral interbody fusion, patient did have a episode of hypotension and elevated white count requiring admission to the ICU patient did have a positive UA and gram- negative bacteremia and is scheduled for exploration of the thoracolumbar incision completed on 03/09/2022 with apparently no evidence of any abscess as reported by the nursing staff On today's evaluation that is 03/19/2022 the patient continues to be afebrile , the patient is breathing comfortably on room air, the patient did have occasional dry cough, the patient denies nausea no vomiting no abdominal pain, the patient diarrhea has decreased in frequency per the nursing staff Objective - Vital Signs Vital signs: Vital Signs Temp 97.4 F L 03/19/22 11:29 Pulse 78 03/19/22 11:29 Resp 19 03/19/22 11:29 BP 105/78 03/19/22 11:29 Pulse Ox 97 03/19/22 11:29 FiO2 35 03/10/22 10:13 Intake & Output 03/18/22 03/19/22 03/19/22 18:59 06:59 18:59 Intake Total 70 110 Output Total 1150 1750 Balance -1080 -1640 Intake: IV 70 110 Sodium Chloride 0.9% 1, 70 110 000 ml @ 10 mls/hr IV . Q24H [facility] Rx#:[id number] Output: Urine 1150 1750 Other: Voiding Method Indwelling Catheter Indwelling Catheter Indwelling Catheter ABP, PAP, CO, CI - Last Documented Arterial Blood Pressure 158/70 - Exam GENERAL DESCRIPTION: An elderly female lying in bed in no distress RESPIRATORY SYSTEM: Unlabored breathing , decreased breath sounds at bases HEART: S1 S2 regular rate and rhythm , ABDOMEN: Soft , no tenderness EXTREMITIES: Diffuse swelling bilateral lower extremity - Labs CBC & Chem 7: 03/19/22 07:13 03/19/22 07:13 Labs: Abnormal Lab Results - Last 24 Hours (Table) 03/18/22 03/18/22 03/19/22 Range/Units 17:25 20:50 06:35 RDW (11.5-15.5) % Plt Count (150-450) k/uL Lymphocytes # (1.0-4.8) k/uL Sodium (137-145) mmol/L BUN (7-17) mg/dL Glucose (74-99) mg/dL POC Glucose (mg/dL) 302 H 273 H 177 H (70-110) mg/dL Calcium (8.4-10.2) mg/dL 03/19/22 03/19/22 03/19/22 Range/Units 07:13 07:13 11:10 RDW 18.1 H (11.5-15.5) % Plt Count 144 L (150-450) k/uL Lymphocytes # 0.6 L (1.0-4.8) k/uL Sodium 132 L (137-145) mmol/L BUN 27 H (7-17) mg/dL Glucose 143 H (74-99) mg/dL POC Glucose (mg/dL) 230 H (70-110) mg/dL Calcium 7.9 L (8.4-10.2) mg/dL Assessment and Plan (1) Gram-negative bacteremia Current Visit: Yes Status: Acute Code(s): R78.81 - BACTEREMIA SNOMED Code(s): 804542725506 Plan: 1patient with SIRS/sepsis in this patient who has been in the hospital for 2 weeks with elective admission to the hospital for thoracolumbar spine revision did have a cardiac arrest requiring resuscitation now with evidence of significant hypertension ileus and elevated white count source possible UTI as the patient urine as well as blood cultures are growing Enterobacter 2patient slowly clinically improving and the patient white count has norm alized, patient will continue with the cefepime to finish a two-week course of therapy , keeping in mind her ALLERGIES and interaction of the other option which will be Cipro with other medication 3-patient diarrhea seems to be improving with the Questran which will be continued Time with Patient: Less than 30
[2022-03-20] MEDS: ACETAMINOPHEN TAB 500 MG TAB PO SCH ×4 (00:55→18:01)
[2022-03-20] MEDS: DEXAMETHASONE SOD PHOSPHATE 4 MG/ML 1 ML VIAL IVP SCH ×3 (00:57→16:57)
[2022-03-20] MEDS: BUTALB/APAP/CAFF 50-325-40MG TAB PO PRN (00:57)
[2022-03-20] MEDS: SODIUM CHLORIDE 0.9% 1,000 ML IV SCH (03:21)
[2022-03-20] MEDS: INSULIN ASPART (NovoLOG) 100 UNIT/ML VIAL SQ SCH ×4 (06:30→20:43)
[2022-03-20] MEDS: INSULIN DETEMIR (LEVEMIR) 100 UNIT/ML SYR SQ SCH (06:30)
[2022-03-20] MEDS: LEVOTHYROXINE 88 MCG TAB PO SCH (06:31)
[2022-03-20 06:33] LABS: Glucose,Whole Blood 161 mg/dL (70-110)
--- NOTE | 2022-03-20 08:10 | P.PN ---
Subjective PROGRESS NOTE The patient is a 71-year-old female who underwent lumbar surgery on February 24 for severe stenosis, mechanical low back pain and neurogenic claudication. She has a known history of atrial flutter, atrial fibrillation. She continues to be in atrial flutter at this time with 2 to one conduction. She had an echocardiogram on February 27 that showed an ejection fraction of 35-40% with moderate mitral regurgitation. In 2018 her LV systolic function was normal. It is unclear if this deterioration is an acute event following her surgery. She feels better overall, has musculoskeletal right-sided discomfort. She is not anticoagulated because of recent bleeding. She denies any nausea or vomiting. Her blood pressure is under good control. She had positive urine culture. March 14: The patient is feeling slightly better today, she denies any chest discomfort or dizziness. She continues to be in atrial flutter with 2 to one conduction. She had episodes of her lower heart rate. She is tolerating her present medical regimen. She has no evidence of ventricular tachycardia. She continues to be in bed, she is allowed to lift her head 30 today. She has no nausea or vomiting. She has no dizziness or palpitations. Her right-sided chest discomfort has improved. Her anticoagulation remains on hold because of her anemia and hematoma. March 15: Patient continues to have soreness but better. She has mild nausea but no significant dyspnea. Her atrial flutter rate is under better control. She denies any chest discomfort, dizziness or palpitations. She continues to be at bedrest. Her blood pressures been stable on the present regimen. March 16: The patient continues to be in atrial flutter with controlled ventricular response. She feels better overall but continues to feel fatigued. She denies any chest discomfort, dizziness or palpitations. She continues to be at bedrest because of a leak. Her urine output is stable. She is not anticoagulated yet per surgical team. Hemodynamically she is stable. March 17: Patient is feeling well overall remains in bed flat, she continues to be in atrial flutter with controlled ventricular response. She has not been anticoagulated per surgical team. She denies any chest discomfort, her breathing is better. She denies any dizziness or palpitations, no nausea. She is tolerating by mouth. She has no fever. March 18: The patient is complaining of left sided respirophasic and muscular chest discomfort. She has some discomfort in her mouth. She continues to be in atrial flutter with controlled ventricular response. She denies any dizziness or palpitations. She continues to be a bedrest. She has no arrhythmia. She has mild nausea. Not anticoagulated yet per surgical team. March 19: She continues to have soreness in her mouth but otherwise denies any chest discomfort, she has some wheezes but does not feel dyspneic. She has good urine output. She continues to be in atrial fibrillation with controlled ventricular response. Anticoagulation has not been initiated yet by the surgical team. Her blood pressure is stable and she is on no vasopressors. She continues to be at bedrest. 03/20 Patient seen and examined. Patient was started on Xarelto last night. Denies any hematochezia or melena. Remains in A. fib with controlled heart rates. Has been having room spinning sensation whenever she turns her head to the right however states this has been going on for 3 weeks. Denies any chest pain or pressure. Does have some right lower quadrant abdominal pain. Denies any shortness breath. Is receiving Lasix IV 40 mg daily. Sodium remains low at 132. PHYSICAL EXAMINATION: Vitals reviewed LUNGS: Scattered wheezes HEART: Irregular rate and rhythm, , S1, S2. No S3. No systolic murmur ABDOMEN: Soft, nontender, no organomegaly, obese EXTREMETIES: Trace to +1 edema LAB: BUN 27, creatinine 0.6, potassium 4.5. IMPRESSION: 1. Status post back surgery 2. Atrial flutter with controlled ventricular response 3. Anemia, stable 4. Cardiomyopathy of unknown etiology, no evidence of acute CHF at this time 5. Bacteremia 6. Acute renal injury resolved 7. Morbid obesity 8. Hyperlipidemia 9. Hypertension, controlled 10. Room spinning sensation for 3 weeks, likely vertigo PLAN: Continue with current medical regimen. Anticoagulation was still restarted and monitor for any bleeding or neurologic issues. Vertigo symptoms have been going on before surgery and not likely related to any part of the surgery. Continue with one more day of IV Lasix. Monitor response. Objective - Vital Signs Vital signs: Vital Signs Temp 97.4 F L 03/20/22 04:00 Pulse 82 03/20/22 04:00 Resp 18 03/20/22 04:00 BP 135/72 03/20/22 04:00 Pulse Ox 97 03/20/22 04:00 FiO2 35 03/10/22 10:13 Intake & Output 03/19/22 03/20/22 03/20/22 18:59 06:59 18:59 Intake Total 60 110 Output Total 1000 1000 Balance -940 -890 Intake: IV 60 110 Sodium Chloride 0.9% 1, 60 110 000 ml @ 10 mls/hr IV . Q24H [facility] Rx#:[id number] Output: Urine 1000 1000 Other: Voiding Method Indwelling Catheter Indwelling Catheter ABP, PAP, CO, CI - Last Documented Arterial Blood Pressure 158/70 - Labs CBC & Chem 7: 03/19/22 07:13 03/19/22 07:13 Labs: Abnormal Lab Results - Last 24 Hours (Table) 03/19/22 03/19/22 03/19/22 Range/Units 11:10 16:26 20:25 POC Glucose (mg/dL) 230 H 175 H 224 H (70-110) mg/dL 03/20/22 Range/Units 06:20 POC Glucose (mg/dL) 161 H (70-110) mg/dL
--- NOTE | 2022-03-20 08:12 | P.PN ---
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 Patient is currently resting in bed with HOB at approx 20 degrees. Patient continues to report a "Halo" headache when she attempts to lift her head. She is able to perform bed exercises without difficulty. Surgical dressing is clean dry and intact. Warren catheter and FMS is present and patent. She denies any fever/chills or chest pain. Objective - Vital Signs Vital signs: Vital Signs Temp 97.4 F L 03/20/22 04:00 Pulse 82 03/20/22 04:00 Resp 18 03/20/22 04:00 BP 135/72 03/20/22 04:00 Pulse Ox 97 03/20/22 04:00 FiO2 35 03/10/22 10:13 Intake & Output 03/19/22 03/20/22 03/20/22 18:59 06:59 18:59 Intake Total 60 110 Output Total 1000 1000 Balance -940 -890 Intake: IV 60 110 Sodium Chloride 0.9% 1, 60 110 000 ml @ 10 mls/hr IV . Q24H [facility] Rx#:[id number] Output: Urine 1000 1000 Other: Voiding Method Indwelling Catheter Indwelling Catheter ABP, PAP, CO, CI - Last Documented Arterial Blood Pressure 158/70 - Exam Her exam today is relatively stable. Surgical dressing will be assessed later this morning. Dressing has been CDI. PHYSICAL EXAMINATION: Vitals: BP 135/72, heart rate 82 and currently Aflutter, SpO2 97% on room air, Resp 18, temperature normal General: Awake, alert, appropriate for age, in no acute distress. HEENT: No changes Extremities: Skin warm and dry without no acute lesions, coloration, temperature, skin intact, no tenderness or erythema. Integument: Surgical incisions: Dressings CDI Warren Cath present and patent FMS present and patent Palpation: Special findings: pain with palpation of the right breast area with large hematoma noted as well as anterior chest wall. VASCULAR STATUS : Wrist Pulses: [2/4 bilateral radial and ulnar] Pedal Pulses: [2/4 bilateral DP and PT] Color: [Normal] Edema: Improved in arms and hands. NEUROLOGIC EXAMINATION: Mental Status: Awake and alert, oriented,but slow with normal attention, concentration and memory, and fluent, he has slow speech Cranial Nerves: I: Olfactory not tested. II: Visual acuity normal, no visual field deficit noted with confrontation. III,IV: Normal pupillary reflexes & intact extraocular movements without nystagmus. V,: Intact symmetrical facial sensation. VII: Intact symmetrical facial motor movement VIII: Hearing intact. IX,X: Intact gag, swallow, & normal voice. XI: Sternocleidomastoid, trapezius function intact. XII: Tongue midline with normal movements. Special Tests: L'hermitte's Sign: Absent Straight Leg Raising: Absent Bilateral Motor Exam (0-5/5, N/T) STRENGTH 4+ out of 5 strength in upper extremity's bilaterally all major muscle groups without focal deficits generalized weakness 4- to 5 strength bilateral lower extremities all major muscle groups with generalized weakness no focal deficits. She is weak in her hip flexors currently. REFLEXES Upper Extremity: RIGHT [2]/4 LEFT [2]/4 Lower Extremity: RIGHT [2]/4 LEFT [2]/4 Pathological Reflexes Warren's: RIGHT [Absent] LEFT [Absent] Babinski: RIGHT [Absent] LEFT [Absent] Clonus: RIGHT [None] LEFT [None] SENSORY Intact Gait and Functional Evaluation: Lay Flat if symptomatic, Bedrest - Labs CBC & Chem 7: 03/19/22 07:13 03/19/22 07:13 Labs: Abnormal Lab Results - Last 24 Hours (Table) 03/19/22 03/19/22 03/19/22 Range/Units 11:10 16:26 20:25 POC Glucose (mg/dL) 230 H 175 H 224 H (70-110) mg/dL 03/20/22 Range/Units 06:20 POC Glucose (mg/dL) 161 H (70-110) mg/dL Assessment and Plan Assessment: 1. 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 Status post 7 units PRBC and 1 pack platelets -bilateral lower extremity weakness, status post multiple controlled falls in- house -Enterobacter sepsis, UTI -status post cardiac arrest Plan: -Appreciate compliance consultant and team management PCC and medicine -Appreciate cardiothoracic, Gen. surgery, nephrology, ID evaluations -Continue Activity: LAY BED FLAT, BEDREST while patient is having symptoms. May elevate to 20 degrees if she is asymptomatic. Turn q2. Continue in bed therapy with ankle pumps to motions but squeezes quad thrusts and are motions. -Daily proning 5-10 min work up to 10 -Cont Abx for duration of stay -Caffiene daily 200 mg daily, Fioricet -Pain control: Adequate today ( Tylenol 1000 mg MEHUL, Oxy IR q4 hrs 10-15 mg titrated to pain (pt been on [place] for 20 yrs), Cont Gabapentin,) -Acetazolamide 250mg daily -Meds: reviewed -Trend labs -Transfusions to vitals -GI ppx: senna, Miralax -Continue Warren changed per protocol -Cont with FBS -DVT PPX: Xarelto -Hygiene: Maintain dressing clean and dry. Meticulous cleaning after BMs away from incision site patient has had several instances on the floor where she was covered and bowel movement as well as urine up to her shoulders on her back. The wound needs to be kept meticulously clean. -Encourage IS 10x/hr -Will follow
[2022-03-20] MEDS: CHOLESTYRAMINE (WITH SUGAR) 4 GM PACKET PO SCH ×2 (09:46→10:20)
[2022-03-20] MEDS: CAFFEINE-SODIUM BENZOATE 500 MG in SODIUM CHLORIDE 0.9% 100 ML IVPB SCH (09:46)
[2022-03-20] MEDS: CEFEPIME 2 GM in SODIUM CHLORIDE 0.9% 100 ML IVPB SCH ×2 (09:47→20:42)
[2022-03-20] MEDS: SODIUM FERRIC GLUCONAT-SUCROSE 125 MG in SODIUM CHLORIDE 0.9% 100 ML IVPB SCH (09:47)
[2022-03-20] MEDS: PANTOPRAZOLE 40 MG/10 ML VIAL IVP SCH (09:47)
[2022-03-20] MEDS: AMIODARONE 200 MG TAB PO SCH ×2 (09:48→20:42)
[2022-03-20] MEDS: DULoxetine HCL 60 MG CAPSULE.DR PO SCH (09:48)
[2022-03-20] MEDS: SPIRONOLACTONE 25 MG TAB PO SCH (09:48)
[2022-03-20] MEDS: CYCLOBENZAPRINE 10 MG TAB PO PRN (09:48)
[2022-03-20] MEDS: lisinopriL 5 MG TAB PO SCH (09:48)
[2022-03-20] MEDS: ATORVASTATIN 10 MG TAB PO SCH (09:48)
[2022-03-20] MEDS: FUROSEMIDE 10 MG/ML 4 ML VIAL IV SCH (09:48)
[2022-03-20] MEDS: METOPROLOL TARTRATE 50 MG TAB PO SCH ×3 (09:48→20:42)
[2022-03-20] MEDS: acetaZOLAMIDE 250 MG TAB PO SCH (09:48)
[2022-03-20] MEDS: GABAPENTIN 400 MG CAP PO SCH ×3 (09:48→20:42)
[2022-03-20] MEDS: MAG HYDROX/AL HYDROX/SIMETH 30 ML, diphenhydrAMINE ELIXIR 75 MG, LIDOCAINE VISCOUS 2% 3... PO SCH ×9 (09:49→20:49)
--- NOTE | 2022-03-20 10:00 | XR ---
EXAMINATION TYPE: XR chest 1V portable DATE OF EXAM: 03/20/2022 COMPARISON: 03/15/2022 INDICATION: Chest pain TECHNIQUE: Single frontal view of the chest is obtained. FINDINGS: The heart size is normal. The pulmonary vasculature is normal. The lungs are clear. There is elevation of the right diaphragm. Postsurgical changes are at the thoracolumbar junction. PI CC line enters on the left with the tip in the superior vena cava region. IMPRESSION: 1. Stable appearance chest x-ray
[2022-03-20 11:06] LABS: Glucose,Whole Blood 189 mg/dL (70-110)
--- NOTE | 2022-03-20 12:31 | P.PN ---
Progress Note - Text Progress Note Date: 03/20/22 Patient seen this afternoon. Assisted patient to her right side and supported with pillows to allow her surgical incision to be open to air. Initial dressing was clean and dry, surgical incision is well approximated, no draining. Maintain position as long as patient can tolerate. Patient tolerated activity well. Denies back pain at this time, continues with "halo" headache. When placing patient onto her back, please cover incision with gauze, ABD and foam tape. Continue to gradually sit patient up today as tolerated.
--- NOTE | 2022-03-20 12:45 | P.PN ---
Subjective Progress Note Date: 03/20/22 Principal diagnosis: UTI and bacteremia Patient is a 71-year-old female with a past medical history difficult for atrial fibrillation flutter hypertension hyperlipidemia hypothyroidism right breast cancer electively admitted to the hospital more than 2 weeks ago 022 for T10 to lumbar spine revision decompression and posterior lateral interbody fusion, patient did have a episode of hypotension and elevated white count requiring admission to the ICU patient did have a positive UA and gram- negative bacteremia and is scheduled for exploration of the thoracolumbar incision completed on 03/09/2022 with apparently no evidence of any abscess as reported by the nursing staff On today's evaluation that is 03/20/2022 the patient remains to be afebrile , the patient is breathing comfortably on room air, the patient did have mild dry cough, the patient denies nausea no vomiting no abdominal pain, the patient diarrhea has resolved per the nursing staff and no drainage from the thoracolumbar incision Objective - Vital Signs Vital signs: Vital Signs Temp 97.4 F L 03/20/22 04:00 Pulse 82 03/20/22 04:00 Resp 18 03/20/22 04:00 BP 135/72 03/20/22 04:00 Pulse Ox 97 03/20/22 04:00 FiO2 35 03/10/22 10:13 Intake & Output 03/19/22 03/20/22 03/20/22 18:59 06:59 18:59 Intake Total 60 110 Output Total 1000 1000 Balance -940 -890 Intake: IV 60 110 Sodium Chloride 0.9% 1, 60 110 000 ml @ 10 mls/hr IV . Q24H [facility] Rx#:[id number] Output: Urine 1000 1000 Other: Voiding Method Indwelling Catheter Indwelling Catheter ABP, PAP, CO, CI - Last Documented Arterial Blood Pressure 158/70 - Exam GENERAL DESCRIPTION: An elderly female lying in bed in no distress RESPIRATORY SYSTEM: Unlabored breathing , decreased breath sounds at bases HEART: S1 S2 regular rate and rhythm , ABDOMEN: Soft , no tenderness Thoracolumbar spine incision stitches are intact with no swelling redness or drainage EXTREMITIES: Diffuse swelling bilateral lower extremity - Labs CBC & Chem 7: 03/19/22 07:13 03/19/22 07:13 Labs: Abnormal Lab Results - Last 24 Hours (Table) 03/19/22 03/19/22 03/19/22 Range/Units 11:10 16:26 20:25 POC Glucose (mg/dL) 230 H 175 H 224 H (70-110) mg/dL 03/20/22 03/20/22 Range/Units 06:20 11:05 POC Glucose (mg/dL) 161 H 189 H (70-110) mg/dL Assessment and Plan (1) Gram-negative bacteremia Current Visit: Yes Status: Acute Code(s): R78.81 - BACTEREMIA SNOMED Code(s): 678964306623 Plan: 1patient with SIRS/sepsis in this patient who has been in the hospital for 2 weeks with elective admission to the hospital for thoracolumbar spine revision did have a cardiac arrest requiring resuscitation now with evidence of significant hypertension ileus and elevated white count source possible UTI as the patient urine as well as blood cultures are growing Enterobacter 2patient slowly clinically improving and the patient white count has normalized, patient will complete a two-week course of cefepime today and cefepime will be discontinued after tonight's dose 3-patient diarrhea has resolved we will discontinue Questran Time with Patient: Less than 30
--- NOTE | 2022-03-20 13:18 | P.PN ---
Subjective Progress Note Date: 03/20/22 Principal diagnosis: status post lumbar decompression/fusion Is evaluation of 02/25/2022, the patient is being seen for a follow-up in the intensive care unit. The patient is post laminectomy and fusion/decompression of the spine and this was done on multiple levels. The patient overnight was kept on a mechanical ventilator. This morning, the patient is on propofol which is running at 35 mcg/kg/m. The patient is well sedated and the patient is quite sick sinus with a mechanical ventilator. The patient is requiring no pressors. The patient on normal saline in the at the rate of 50 mL an hour. The patient is on a mechanical ventilator on assist control mode at the rate of 18, tidal volume of 450, FiO2 of 40% with a PEEP of 5. The blood gas from today showed a pH of 7.41 with a pCO2 of 35 and pO2 of 138. Chest x-ray shows smaller lung volumes, some mild elevation of the right hemidiaphragm. ET tube is sitting just at the level of the aortic knob. No evidence of any pneumothorax. No airspace disease or consolidations. The patient also had a CT angiogram that showed no evidence of any pulmonary embolism. That showed atelectatic change in lung bases and various up other lung segments. No effusion. No lung collapse. CAT scan of the lumbosacral spine was also completed. The surgical one-sided dry clean and intact. The Hemovac output is bloody and its minimal at this point in time. The patient is afebrile. The patient is in atrial fibrillation. Rate is controlled. The patient is receiving Dilaudid for pain control.Blood work from today shows a white cell count of 14.7 with a hemoglobin of 10.1 and a platelet count of 232. The patient also has a sodium level of 135, potassium level of 4.4, chloride is 106 with a bicarb of 23 and a BUN of 15 and a creatinine of 0.5. On 02/26/2022, the patient is extubated and the patient is currently on room air oxygen. Pulse ox is around 91%. Chest x-rays showing a small left-sided pleural effusion, atelectatic change in the right lung base. The patient is able to move lower extremities. She has some limited numbness in her fingers the first and second finger and left upper extremity. Otherwise, she is hemodynamically stable. She remained nature fibrillation. She was started on Cardizem drip which is about 5 mg an hour for rate control and this was started yesterday. Her heart rate is under better control. The patient is also on beta blockers and the patient is on atenolol 100 mg by mouth on a daily basis. Pain is under adequate control. She is requiring Dilaudid 1 mg every 3 hours and 0.5 mg every 2 hours on an as-needed basis. She is also receiving Percocet 10/325 mg every 6 hours. She is currently also on IV fluids in the form of normal saline at the rate of 100 mL an hour. She remains on Decadron. Surgical 1 site is clean. The Hemovac has drained approximately 50 mL overnight and the output is minimal as such. No other significant events. No chest pain. No shortness of breath. White second visit 17 with a hemoglobin of 8.7. As such there is a some drop in hemoglobin. BUN is at 20 creatinine of 0.6 and a sodium level is at 135. She is using the incentive spirometer. She is pulling approximately 3000. Reevaluated today on 02/27/22, patient remains in the ICU, patient is doing fairly well. She is on room air, she is in atrial fibrillation, she is relatively asymptomatic. patient has IV fluid at 50 mL per hour, she is off all the different drips otherwise. WBC count is 17.9 hemoglobin is 8.7 and electrolytes are normal BUN is 20 creatinine 0.55. Chest x-ray from 02/26 is basically unremarkable.patient denies any shortness of breath, no cough, no wheezing, no chest pain, no further episodes of nausea or vomiting. Reevaluated today on 02/28/22, patient remains in the ICU as an overflow, she is on room air, not in any distress, but she does have lower extremities weakness and she seems to be generally weak. Continues to have a right triple-lumen catheter in the cervical region, and I'm recommending that we transition to a midline, and discontinue that triple-lumen catheter. Patient denies any shortness of breath, no cough, no wheezing, no major issues overnight. Basic metabolic profile this morning is relatively unremarkable. Reevaluated today on 03/01/22, patient remains as an overflow in the ICU. Doing fairly well, apparently she was up in the chair yesterday at bedside for most of the day. Pain seems to be fairly well controlled. Continues to have weakness, patient is being followed closely by orthopedics. Patient is doing well with incentive spirometry, remains on Xarelto for DVT prophylaxis. She is also on GI prophylaxis. On 03/19/2022, the patient is laying down with 20 bed elevation. Unable to raise the head of the bed further because of increased headache and the patient states that her brain gets frozen. She is currently on IV caffeine. She is also on Diamox. Surgical once is striking and intact. The patient has produced another negative fluid balance of 4 L over the past 24 hours while being on IV Lasix. Lower extremity edema has improved considerably. No new complaints. White cell cause of 4 with a hemoglobin of 11.7. Sodium is 132, bicarb is 25, BUN is 27, creatinine 0.6. The patient was also started on Fioricet for headaches. No fever or chills. She is currently on room air oxygen. Tolerating diet. Remains on IV cefepime. Reevaluated today on 03/20/22, patient is basically about the same, laying in bed with 20 bed elevation, unable to raise her head, patient has intermittent headaches, patient is generally weak, being followed by many consultants. Pulmonary-licea the patient is on room air, not in distress. Chest x-ray this morning basically showed no acute process. Labs including CBC and basic metabolic profile are basically normal, renal profile is normal. Repeat blood cultures have been negative since her last urine culture and blood culture from 03/07 showing Enterobacter cloaca. Patient has been on treatment all along Objective - Vital Signs Vital signs: Vital Signs Temp 97.4 F L 03/20/22 04:00 Pulse 82 03/20/22 04:00 Resp 18 03/20/22 04:00 BP 135/72 03/20/22 04:00 Pulse Ox 97 03/20/22 04:00 FiO2 35 03/10/22 10:13 Intake & Output 03/19/22 03/20/22 03/20/22 18:59 06:59 18:59 Intake Total 60 110 Output Total 1000 1000 Balance -940 -890 Intake: IV 60 110 Sodium Chloride 0.9% 1, 60 110 000 ml @ 10 mls/hr IV . Q24H [facility] Rx#:[id number] Output: Urine 1000 1000 Other: Voiding Method Indwelling Catheter Indwelling Catheter ABP, PAP, CO, CI - Last Documented Arterial Blood Pressure 158/70 - Exam Physical Exam: Revealed a 71-year-old female in no distress. On room air. Head: Atraumatic, normocephalic. HEENT:[Neck is supple.] [No neck masses.] [No thyromegaly.] [No JVD.] Triple- lumen catheter noted in the right IJ. Chest: [Clear throughout, no crackles, no rhonchi, no wheezes.] Cardiac Exam: Regular rhythm, normal S1 and S2, no S3 gallop, no murmur.] Abdomen: [Soft, nontender, no megaly, no rebound, no guarding, normal bowel sounds.] Extremities: [No clubbing, no edema, no cyanosis.] Neurological Exam: [No focal neurologic deficit.]alert oriented 3, no gross focal deficits. Psychiatric: Normal mood affect and normal mental status examination. Skin: No rashes. - Labs CBC & Chem 7: 03/19/22 07:13 03/19/22 07:13 Labs: Abnormal Lab Results - Last 24 Hours (Table) 03/19/22 03/19/22 03/20/22 Range/Units 16:26 20:25 06:20 POC Glucose (mg/dL) 175 H 224 H 161 H (70-110) mg/dL 03/20/22 Range/Units 11:05 POC Glucose (mg/dL) 189 H (70-110) mg/dL Assessment and Plan Assessment: impression: Lumbar decompression/fusion postoperative , postoperative day #24. Status post Hemovac placement postoperative day #11 Acute sepsis with Enterobacter cloaca urinary tract infection and bacteremia treated with cefepime. Atrial flutter/fibrillation with RVR requiring amiodarone. Cardiac arrest, brief pulseless electrical activity encountered in the operating room exact etiology is not clear. Non-anion gap metabolic acidosis, resolved Right sided wall hematoma secondary to fall, and the patient developed acute anemia. Hemoglobin went as low as 5.4. Fall was on 03/06/2022. Acute hypoxic/hypercapnic respiratory failure secondary to cardiac arrest/pulseless electrical activity, patient was extubated yesterday by Dr. Pulliam. Morbid obesity. BMI of 41.1 History of right hemidiaphragm paralysis History of right-sided breast cancer Chronic atrial fibrillation Dyslipidemia Benign essential hypertension Diarrhea requiring fecal management system placement negative for C. difficile colitis recommendation: Continue present supportive care measures Continue antibiotics as per ID on the case. Continue GI and DVT prophylaxis. Continue IV iron. Continue Lasix as needed. Continue Aldactone. Avoid anticoagulation therapy because of that hematoma. Continue to turn patient every 2 hours as per surgical recommendation. Continue incentive spirometry. We will continue to follow Time with Patient: Less than 30
[2022-03-20] MEDS ORDERED: MECLIZINE 25 MG TAB PO PRN (14:59)
--- NOTE | 2022-03-20 14:59 | P.PN ---
Subjective Progress Note Date: 03/20/22 Patient is a 71 yo CF with a hx of A fib s/p ablation, GERD, hypertension, dyslipidemia, and right diaphragmatic paralysis who presented for T10 to Pelvis decompression and fusion with revision. Blood loss and the case was approximately 1900 mL. During her operative course she required phenylephrine IV infusion, Vasopressin IVP. She also received TXA gtt. She received 7 L of lactated Ringer's. She received 1 amp of sodium bicarb intaop. She also received albumin. Her operative course was complicated with a cardiac arrest. During the case she developed A. fib with RVR and then quickly transitioned into bradycardia with a low end-tidal CO2. She received 0.4 of atropine and CPR was started. She received epinephrine 0.5. She achieved ROSC. Total down time was less than 5 minutes. She was extubated on 02/25. She continued to do well with struggled with pain. She was downgraded from ICU on 03/03. She was evaluated by PMR, awaiting inpatient rehab. On 03/07, patient was noted to be hypotensive with elevated WBC count of 42.3, with worsening renal function and hyperkalamia. Patient was treated with NS bolus, IV insulin/D50, Albuterol and sodium bicarbonate. She was transferred back to the ICU for septic shock requiring Levophed. Started on Vancomycin and Cefepime, blood and urine cultures were positive for Enterobacter. ID was consulted and she was continued on Cefepime while Vancomycin was discontinued. Levophed was able to be weaned off. Her hemoglobin continued to drop, she requ ired a total of [address] AP was ordered which showed a large right chest hematoma and dilated small bowel concerning for ileus. CT surgery was consulted and recommended conservative management for chest hematoma. NG tube was inserted and patient undewent EGD. EGD showed mild gastritis and esophagitis, she was continued to Protonix. Patient underwent irrigation of debridement of the thoracolumbar and pelvic skin, soft tissue, muscle, bone and spine along with dural repair with patch graft L1 on 03/09. Her hyponatremia and BETHANY resolved with IV hydration. She was started on Lasix IV for volume overload during fluid resuscitation for sepsis. Patient was seen and examined. No acute events overnight. Patient reports vertigo like symptoms with head movement. General: ill appearing, mild distress due to pain, appears at stated age, lethargic Derm: warm, dry Head: atraumatic, normocephalic, symmetric Eyes: EOMI, no lid lag, anicteric sclera Mouth: no lip lesion, dry membranes moist Cardiovascular: S1S2 irregular, no murmur Lungs: Decreased BS bilateral, no rhonchi, no rales, no accessory muscle use Ext: no gross muscle atrophy, 1+ LE edema, no contractures Abd: Warren catheter in place. Obese. Non tender to palpation. Neuro: Moving all 4 extremities independently, sensation intact to touch BL LE Psych: Alert, oriented, appropriate affect #Septic shock, Enterobacter cloacae bacteremia #Enterobacter cloacae bacteremia with likly source UTI #Enterobacter cloacae UTI #Lactic acidosis Currently off mechanical ventilation and pressors. Continue Cefepime. Blood cultures + Enterobacter cloacae. Urine culture + Enterobacter cloacae. Telemetry monitoring. Infectious disease and Pulmonology/ICU on board. #Acute on Chronic Systolic CHF Echo shows EF 35-40% with severe pulmonary HTN, moderate MR. Patient will need ischemic workup. Patient started on ACEi and Aldactone prior to discharge. Lasix 40 mg IV QD. Strict intake and outtake. Cardiology on board. #Prerenal azotemia #Hyponatremia, hypovolemic Na 132, BUN 27 Renal US shows on hydronephrosis on the R, enlarged cyst in the L kidney measur ing up to 8.3 cm. BETHANY likely due to ATN from septic shock and hypoNa from poor oral intake. Lasix 40 mg IV QD. Nephrology on board. #Hyperglycemia likely secondary to steroids No official DM diagnosis Levemir 20 units daily. A1c is 6, likely prediabetic, will benefit from metformin upon discharge. #Acute blood loss anemia #Right breast hematoma #GI bleed, concern for ischemic bowel s/p 7 unit PRBC. EGD showed mild gastritis and mild esophagitis with no active bleeding. Restart Xarelto. CT surgery recommends conservative managment of hematoma. Monitor hemoglobin. Continue Ferrlecit. Transfuse if Hg < 7. #Transaminitis Obstructive LFTs. Likely ischemic hepatitis. Improved. #Atrial fibrillation Restarted on Xarelto. Continue Amiodarone, Metoprolol. Cardiology on board. #Abdominal pain #IIeus versus SBO Advance diet as tolerated. General surgery consulted. #T10 to pelvis decompression with fusion #Post-op pain Management per Orthopedic surgery. Gabapentin, Valium, Flexeril. Decadron. Continue with Dilaudid and Percocet PRN. Patient has no stairs and planning on going home, she has nearby help from family but lives alone. Patient currently on bed rest. Awaiting for orthopedic surgery to clear patient for PT OT PT and OT consulted. PMR consulted. #Right diaphragmatic paralysis Aggressive pulmonary hygiene. Pulmonology on board. #HLD Statin. #HTN Cotinue Lisinopril, Aldactone, Metoprolol. Monitor vitals and adjust medication if necessary. Resolved: Hyperkalemia, Aborted cardiac arrest Disposition: Once patient is cleared for out of bed activity by orthopedic surgery we can then start working on discharge planning. Thank you for the consult. Please do not hesitate to call us with any questions. Objective - Vital Signs Vital signs: Vital Signs Temp 97.8 F 03/20/22 12:00 Pulse 85 03/20/22 12:00 Resp 20 03/20/22 12:00 BP 125/62 03/20/22 12:00 Pulse Ox 98 03/20/22 12:00 FiO2 35 03/10/22 10:13 Intake & Output 03/19/22 03/20/22 03/20/22 18:59 06:59 18:59 Intake Total 60 110 Output Total 1000 1000 Balance -940 -890 Intake: IV 60 110 Sodium Chloride 0.9% 1, 60 110 000 ml @ 10 mls/hr IV . Q24H [facility] Rx#:[id number] Output: Urine 1000 1000 Other: Voiding Method Indwelling Catheter Indwelling Catheter Indwelling Catheter ABP, PAP, CO, CI - Last Documented Arterial Blood Pressure 158/70 - Labs CBC & Chem 7: 03/19/22 07:13 03/19/22 07:13 Labs: Abnormal Lab Results - Last 24 Hours (Table) 03/19/22 03/19/22 03/20/22 Range/Units 16:26 20:25 06:20 POC Glucose (mg/dL) 175 H 224 H 161 H (70-110) mg/dL 03/20/22 Range/Units 11:05 POC Glucose (mg/dL) 189 H (70-110) mg/dL
[2022-03-20 17:58] LABS: Glucose,Whole Blood 338 mg/dL (70-110)
--- NOTE | 2022-03-20 18:10 | CT ---
EXAMINATION TYPE: CT brain wo con DATE OF EXAM: 03/20/2022 COMPARISON: 01/18/2021 HISTORY: ams CT DLP: 1231.4 mGycm Automated exposure control for dose reduction was used. There is cerebral cortical atrophy. There is no mass effect or midline shift. No sign of intracranial hemorrhage. Calvarium is intact. There is normal aeration of the mastoid sinuses. IMPRESSION: Mild atrophy. No acute intracranial abnormality. No change compared to old exam.
[2022-03-20 19:42] LABS: Glucose,Whole Blood 221 mg/dL (70-110)
[2022-03-20] MEDS: RIVAROXABAN 20 MG TAB PO SCH (20:42)
[2022-03-21] MEDS: ACETAMINOPHEN TAB 500 MG TAB PO SCH ×4 (00:23→17:10)
[2022-03-21] MEDS: SODIUM CHLORIDE 0.9% 1,000 ML IV SCH (00:24)
[2022-03-21] MEDS: DEXAMETHASONE SOD PHOSPHATE 4 MG/ML 1 ML VIAL IVP SCH ×3 (00:24→17:10)
[2022-03-21] MEDS: GABAPENTIN 400 MG CAP PO SCH ×4 (00:48→20:12)
[2022-03-21] MEDS: RIVAROXABAN 20 MG TAB PO SCH ×2 (00:49→20:12)
[2022-03-21] MEDS: METOPROLOL TARTRATE 50 MG TAB PO SCH ×4 (00:49→20:12)
[2022-03-21] MEDS: AMIODARONE 200 MG TAB PO SCH ×3 (00:49→20:12)
[2022-03-21 05:18] LABS: Glucose,Whole Blood 158 mg/dL (70-110)
[2022-03-21 05:50] LABS: Glucose,Whole Blood 183 mg/dL (70-110)
[2022-03-21] MEDS: INSULIN ASPART (NovoLOG) 100 UNIT/ML VIAL SQ SCH ×4 (06:48→20:12)
[2022-03-21] MEDS: INSULIN DETEMIR (LEVEMIR) 100 UNIT/ML SYR SQ SCH (06:48)
[2022-03-21] MEDS: LEVOTHYROXINE 88 MCG TAB PO SCH (06:48)
--- NOTE | 2022-03-21 08:10 | P.PN ---
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 She has been downgraded from ICU to 3S yesterday evening. Patient is currently resting in bed with HOB at approx 30 degrees. Continue to elevate HOB throughout the day as long as patient is asymptomatic. Patient states she has had a decrease in her headache, but it is still present. She is able to perform bed exercises without difficulty. Surgical dressing is clean dry and intact. Warren catheter is present and patent. She denies any fever/chills or chest pain. Objective - Vital Signs Vital signs: Vital Signs Temp 98.2 F 03/21/22 04:00 Pulse 86 03/21/22 04:00 Resp 18 03/21/22 04:00 BP 143/73 03/21/22 04:00 Pulse Ox 97 03/21/22 04:00 FiO2 35 03/10/22 10:13 Intake & Output 03/20/22 03/21/22 03/21/22 18:59 06:59 18:59 Intake Total 380 Output Total 1500 1000 Balance -1120 -1000 Intake: IV 180 Sodium Chloride 0.9% 1, 80 000 ml @ 10 mls/hr IV . Q24H [facility] Rx#:[id number] Sodium Ferric Gluconat- 100 Sucrose 125 mg In Sodium Chloride 0.9% 100 ml @ 100 mls/hr IVPB DAILY [facility] Rx#:[id number] Intake, IV Titration 200 Amount Caffeine-Sodium Benzoate 100 500 mg In Sodium Chloride 0.9% 100 ml @ 102 mls/hr IVPB DAILY [facility] Rx#: [id number] Cefepime 2 gm In Sodium 100 Chloride 0.9% 100 ml @ 25 mls/hr IVPB Q12H [facility] Rx# :[id number] Oral 0 Output: Urine 1500 1000 Other: Voiding Method Indwelling Catheter Indwelling Catheter ABP, PAP, CO, CI - Last Documented Arterial Blood Pressure 158/70 - Exam PHYSICAL EXAMINATION: General: Awake, alert, appropriate for age, in no acute distress. HEENT: No changes Extremities: Skin warm and dry without no acute lesions, coloration, temperature, skin intact, no tenderness or erythema. Integument: Surgical incisions: Dressings CDI Warren Cath present and patent Palpation: Special findings: pain with palpation of the right breast area with large hematoma noted as well as anterior chest wall. VASCULAR STATUS : Wrist Pulses: [2/4 bilateral radial and ulnar] Pedal Pulses: [2/4 bilateral DP and PT] Color: [Normal] Edema: Improved in arms and hands. NEUROLOGIC EXAMINATION: Mental Status: Awake and alert, oriented,but slow with normal attention, concentration and memory, and fluent, he has slow speech Cranial Nerves: I: Olfactory not tested. II: Visual acuity normal, no visual field deficit noted with confrontation. III,IV: Normal pupillary reflexes & intact extraocular movements without nystagmus. V,: Intact symmetrical facial sensation. VII: Intact symmetrical facial motor movement VIII: Hearing intact. IX,X: Intact gag, swallow, & normal voice. XI: Sternocleidomastoid, trapezius function intact. XII: Tongue midline with normal movements. Special Tests: L'hermitte's Sign: Absent Straight Leg Raising: Absent Bilateral Motor Exam (0-5/5, N/T) STRENGTH 4+ out of 5 strength in upper extremity's bilaterally all major muscle groups without focal deficits generalized weakness 4- to 5 strength bilateral lower extremities all major muscle groups with generalized weakness no focal deficits. She is weak in her hip flexors currently. REFLEXES Upper Extremity: RIGHT [2]/4 LEFT [2]/4 Lower Extremity: RIGHT [2]/4 LEFT [2]/4 Pathological Reflexes Warren's: RIGHT [Absent] LEFT [Absent] Babinski: RIGHT [Absent] LEFT [Absent] Clonus: RIGHT [None] LEFT [None] SENSORY Intact Gait and Functional Evaluation: Lay Flat if symptomatic, Bedrest - Labs CBC & Chem 7: 03/19/22 07:13 03/19/22 07:13 Labs: Abnormal Lab Results - Last 24 Hours (Table) 03/07/22 03/20/22 03/20/22 Range/Units 16:56 11:05 17:57 POC Glucose (mg/dL) 189 H 338 H (70-110) mg/dL Crossmatch See Detail 03/20/22 03/21/22 03/21/22 Range/Units 19:41 04:58 05:49 POC Glucose (mg/dL) 221 H 158 H 183 H (70-110) mg/dL Crossmatch Assessment and Plan Assessment: 1. 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 Status post 7 units PRBC and 1 pack platelets -bilateral lower extremity weakness, status post multiple controlled falls in- house -Enterobacter sepsis, UTI -status post cardiac arrest Plan: -Appreciate makeup sales consultant and team management PCC and medicine -Appreciate cardiothoracic, Gen. surgery, nephrology, ID evaluations -Continue Activity: LAY BED FLAT, BEDREST while patient is having symptoms. May continue to elevate HOB to upright sitting if she is asymptomatic. Turn q2. Continue in bed therapy with ankle pumps to motions but squeezes quad thrusts and are motions. -Daily proning 5-10 min work up to 10 -Cont Abx for duration of stay -Caffiene daily 200 mg daily, Fioricet -Pain control: Adequate today ( Tylenol 1000 mg [facility], Oxy IR q4 hrs 10-15 mg titrated to pain (pt been on [place] for 20 yrs), Cont Gabapentin,) -Acetazolamide 250mg daily -Meds: reviewed -Trend labs -Transfusions to vitals -GI ppx: senna, Miralax -Continue Warren changed per protocol -Cont with FBS -DVT PPX: Xarelto -Hygiene: Maintain dressing clean and dry. Meticulous cleaning after BMs away from incision site patient has had several instances on the floor where she was covered and bowel movement as well as urine up to her shoulders on her back. The wound needs to be kept meticulously clean. -Encourage IS 10x/hr -Will follow
[2022-03-21] MEDS: PANTOPRAZOLE 40 MG/10 ML VIAL IVP SCH (08:15)
[2022-03-21] MEDS: ATORVASTATIN 10 MG TAB PO SCH (08:16)
[2022-03-21] MEDS: CYCLOBENZAPRINE 10 MG TAB PO PRN (08:22)
[2022-03-21] MEDS: SODIUM FERRIC GLUCONAT-SUCROSE 125 MG in SODIUM CHLORIDE 0.9% 100 ML IVPB SCH (08:23)
[2022-03-21] MEDS: CAFFEINE-SODIUM BENZOATE 500 MG in SODIUM CHLORIDE 0.9% 100 ML IVPB SCH (08:34)
[2022-03-21] MEDS: DULoxetine HCL 60 MG CAPSULE.DR PO SCH (09:52)
[2022-03-21] MEDS: FUROSEMIDE 10 MG/ML 4 ML VIAL IV SCH (09:52)
[2022-03-21] MEDS: lisinopriL 5 MG TAB PO SCH (10:29)
--- NOTE | 2022-03-21 10:35 | P.PN ---
Subjective PROGRESS NOTE The patient is a 71-year-old female who underwent lumbar surgery on February 24 for severe stenosis, mechanical low back pain and neurogenic claudication. She has a known history of atrial flutter, atrial fibrillation. She continues to be in atrial flutter at this time with 2 to one conduction. She had an echocardiogram on February 27 that showed an ejection fraction of 35-40% with moderate mitral regurgitation. In 2018 her LV systolic function was normal. It is unclear if this deterioration is an acute event following her surgery. She feels better overall, has musculoskeletal right-sided discomfort. She is not anticoagulated because of recent bleeding. She denies any nausea or vomiting. Her blood pressure is under good control. She had positive urine culture. March 14: The patient is feeling slightly better today, she denies any chest discomfort or dizziness. She continues to be in atrial flutter with 2 to one conduction. She had episodes of her lower heart rate. She is tolerating her present medical regimen. She has no evidence of ventricular tachycardia. She continues to be in bed, she is allowed to lift her head 30 today. She has no nausea or vomiting. She has no dizziness or palpitations. Her right-sided chest discomfort has improved. Her anticoagulation remains on hold because of her anemia and hematoma. March 15: Patient continues to have soreness but better. She has mild nausea but no significant dyspnea. Her atrial flutter rate is under better control. She denies any chest discomfort, dizziness or palpitations. She continues to be at bedrest. Her blood pressures been stable on the present regimen. March 16: The patient continues to be in atrial flutter with controlled ventricular response. She feels better overall but continues to feel fatigued. She denies any chest discomfort, dizziness or palpitations. She continues to be at bedrest because of a leak. Her urine output is stable. She is not anticoagulated yet per surgical team. Hemodynamically she is stable. March 17: Patient is feeling well overall remains in bed flat, she continues to be in atrial flutter with controlled ventricular response. She has not been anticoagulated per surgical team. She denies any chest discomfort, her breathing is better. She denies any dizziness or palpitations, no nausea. She is tolerating by mouth. She has no fever. March 18: The patient is complaining of left sided respirophasic and muscular chest discomfort. She has some discomfort in her mouth. She continues to be in atrial flutter with controlled ventricular response. She denies any dizziness or palpitations. She continues to be a bedrest. She has no arrhythmia. She has mild nausea. Not anticoagulated yet per surgical team. March 19: She continues to have soreness in her mouth but otherwise denies any chest discomfort, she has some wheezes but does not feel dyspneic. She has good urine output. She continues to be in atrial fibrillation with controlled ventricular response. Anticoagulation has not been initiated yet by the surgical team. Her blood pressure is stable and she is on no vasopressors. She continues to be at bedrest. 03/20 Patient seen and examined. Patient was started on Xarelto last night. Denies any hematochezia or melena. Remains in A. fib with controlled heart rates. Has been having room spinning sensation whenever she turns her head to the right however states this has been going on for 3 weeks. Denies any chest pain or pressure. Does have some right lower quadrant abdominal pain. Denies any shortness breath. Is receiving Lasix IV 40 mg daily. Sodium remains low at 132. 03/21 Patient seen and examined. Patient did have borderline blood pressures 90s over 50s and therefore her metoprolol, Diamox, spironolactone was held this morning. She has noted a feeling of more fluttering and heart pounding or last hour and heart rates are mildly elevated up in the 100-110 range in atrial fibrillation. Denies any chest pain or pressure. PHYSICAL EXAMINATION: Vitals reviewed LUNGS: Scattered wheezes HEART: Irregular rate and rhythm, , S1, S2. No S3. No systolic murmur ABDOMEN: Soft, nontender, no organomegaly, obese EXTREMETIES: Trace to +1 edema IMPRESSION: 1. Status post back surgery 2. Atrial flutter with controlled ventricular response 3. Anemia, stable 4. Cardiomyopathy of unknown etiology, no evidence of acute CHF at this time 5. Bacteremia 6. Acute renal injury resolved 7. Morbid obesity 8. Hyperlipidemia 9. Hypertension, controlled 10. Room spinning sensation for 3 weeks, likely vertigo PLAN: Patient with borderline blood pressures however asymptomatic and we will continue with metoprolol given patient is currently somewhat symptomatic with mild A. fib with RVR. Hold lisinopril for now. Continue to monitor and make adjustments as needed. Further recommendations to follow. Objective - Vital Signs Vital signs: Vital Signs Temp 97.8 F 03/21/22 08:15 Pulse 96 03/21/22 08:15 Resp 20 03/21/22 08:15 BP 99/35 03/21/22 08:15 Pulse Ox 100 03/21/22 08:15 FiO2 35 03/10/22 10:13 Intake & Output 03/20/22 03/21/22 03/21/22 18:59 06:59 18:59 Intake Total 380 240 Output Total 1500 1000 Balance -1120 -1000 240 Intake: IV 180 Sodium Chloride 0.9% 1, 80 000 ml @ 10 mls/hr IV . Q24H [facility] Rx#:[id number] Sodium Ferric Gluconat- 100 Sucrose 125 mg In Sodium Chloride 0.9% 100 ml @ 100 mls/hr IVPB DAILY [facility] Rx#:[id number] Intake, IV Titration 200 Amount Caffeine-Sodium Benzoate 100 500 mg In Sodium Chloride 0.9% 100 ml @ 102 mls/hr IVPB DAILY [facility] Rx#: [id number] Cefepime 2 gm In Sodium 100 Chloride 0.9% 100 ml @ 25 mls/hr IVPB Q12H [facility] Rx# :[id number] Oral 0 240 Output: Urine 1500 1000 Other: Voiding Method Indwelling Catheter Indwelling Catheter Indwelling Catheter ABP, PAP, CO, CI - Last Documented Arterial Blood Pressure 158/70 - Labs CBC & Chem 7: 03/19/22 07:13 03/19/22 07:13 Labs: Abnormal Lab Results - Last 24 Hours (Table) 03/07/22 03/20/22 03/20/22 Range/Units 16:56 11:05 17:57 POC Glucose (mg/dL) 189 H 338 H (70-110) mg/dL Crossmatch See Detail 03/20/22 03/21/22 03/21/22 Range/Units 19:41 04:58 05:49 POC Glucose (mg/dL) 221 H 158 H 183 H (70-110) mg/dL Crossmatch
--- NOTE | 2022-03-21 10:45 | P.PN ---
Subjective Progress Note Date: 03/21/22 Patient is a 71 yo CF with a hx of A fib s/p ablation, GERD, hypertension, dyslipidemia, and right diaphragmatic paralysis who presented for T10 to Pelvis decompression and fusion with revision. Blood loss and the case was approximately 1900 mL. During her operative course she required phenylephrine IV infusion, Vasopressin IVP. She also received TXA gtt. She received 7 L of lactated Ringer's. She received 1 amp of sodium bicarb intaop. She also received albumin. Her operative course was complicated with a cardiac arrest. During the case she developed A. fib with RVR and then quickly transitioned into bradycardia with a low end-tidal CO2. She received 0.4 of atropine and CPR was started. She received epinephrine 0.5. She achieved ROSC. Total down time was less than 5 minutes. She was extubated on 02/25. She continued to do well with struggled with pain. She was downgraded from ICU on 03/03. She was evaluated by PMR, awaiting inpatient rehab. On 03/07, patient was noted to be hypotensive with elevated WBC count of 42.3, with worsening renal function and hyperkalamia. Patient was treated with NS bolus, IV insulin/D50, Albuterol and sodium bicarbonate. She was transferred back to the ICU for septic shock requiring Levophed. Started on Vancomycin and Cefepime, blood and urine cultures were positive for Enterobacter. ID was consulted and she was continued on Cefepime while Vancomycin was discontinued. Levophed was able to be weaned off. Her hemoglobin continued to drop, she requ ired a total of [address] AP was ordered which showed a large right chest hematoma and dilated small bowel concerning for ileus. CT surgery was consulted and recommended conservative management for chest hematoma. NG tube was inserted and patient undewent EGD. EGD showed mild gastritis and esophagitis, she was continued to Protonix. Patient underwent irrigation of debridement of the thoracolumbar and pelvic skin, soft tissue, muscle, bone and spine along with dural repair with patch graft L1 on 03/09. Her hyponatremia and BETHANY resolved with IV hydration. She was started on Lasix IV for volume overload during fluid resuscitation for sepsis. Patient was seen and examined. No acute events overnight. Patient reports vertigo like symptoms have resolved. CT head was performed yesterday and was negative for acute findings. She reports palpitations and a pounding sensation in her chest. She also reports shortness of breath, though improved. BP low this morning 90s/30s which has improved on recheck. General: ill appearing, mild distress due to pain, appears at stated age, lethar gic Derm: warm, dry Head: atraumatic, normocephalic, symmetric Eyes: EOMI, no lid lag, anicteric sclera Mouth: no lip lesion, dry membranes moist Cardiovascular: S1S2 irregular, no murmur Lungs: Decreased BS bilateral, rales noted at the bases, no accessory muscle use Ext: no gross muscle atrophy, 1+ LE edema, no contractures Abd: Warren catheter in place. Obese. Non tender to palpation. Neuro: Moving all 4 extremities independently, sensation intact to touch BL LE Psych: Alert, oriented, appropriate affect #Septic shock, Enterobacter cloacae bacteremia #Enterobacter cloacae bacteremia with likly source UTI #Enterobacter cloacae UTI #Lactic acidosis Currently off mechanical ventilation and pressors. Continue Cefepime. Blood cultures + Enterobacter cloacae. Urine culture + Enterobacter cloacae. Telemetry monitoring. Infectious disease and Pulmonology/ICU on board. #Acute on Chronic Systolic CHF Echo shows EF 35-40% with severe pulmonary HTN, moderate MR. Patient will need ischemic workup. Patient started on ACEi and Aldactone (held this morning due to hypotension) Continue Lasix 40 mg IV QD. Strict intake and outtake. Cardiology on board. #Prerenal azotemia #Hyponatremia, hypovolemic Na 132, BUN 27 Renal US shows on hydronephrosis on the R, enlarged cyst in the L kidney measuring up to 8.3 cm. BETHANY likely due to ATN from septic shock and hypoNa from poor oral intake. Lasix 40 mg IV QD. Nephrology on board. #Hyperglycemia likely secondary to steroids No official DM diagnosis Levemir 20 units daily. Sliding scale. A1c is 6, likely prediabetic, will benefit from metformin upon discharge. #Acute blood loss anemia #Right breast hematoma #GI bleed, concern for ischemic bowel s/p 7 unit PRBC. EGD showed mild gastritis and mild esophagitis with no active bleeding. Restart Xarelto. CT surgery recommends conservative managment of hematoma. Monitor hemoglobin. Continue Ferrlecit. Transfuse if Hg < 7. #Transaminitis Obstructive LFTs. Likely ischemic hepatitis. Improved. #Atrial fibrillation Restarted on Xarelto. Continue Amiodarone, Metoprolol. Cardiology on board. #Abdominal pain #IIeus versus SBO Advance diet as tolerated. General surgery consulted. #T10 to pelvis decompression with fusion #Post-op pain Management per Orthopedic surgery. Gabapentin, Valium, Flexeril. Decadron. Continue with Dilaudid and Percocet PRN. Patient has no stairs and planning on going home, she has nearby help from family but lives alone. Patient currently on bed rest. Awaiting for orthopedic surgery to clear patient for PT OT PT and OT consulted. PMR consulted. #Right diaphragmatic paralysis Aggressive pulmonary hygiene. Pulmonology on board. #HLD Statin. #HTN Cotinue Metoprolol. Lisinopril, Aldactone held due to hypotension today. Monitor vitals and adjust medication if necessary. Resolved: Hyperkalemia, Aborted cardiac arrest Disposition: Once patient is cleared for out of bed activity by orthopedic surgery we can then start working on discharge planning. Thank you for the consult. Please do not hesitate to call us with any questions . Objective - Vital Signs Vital signs: Vital Signs Temp 97.8 F 03/21/22 08:15 Pulse 96 03/21/22 08:15 Resp 20 03/21/22 08:15 BP 99/35 03/21/22 08:15 Pulse Ox 100 03/21/22 08:15 FiO2 35 03/10/22 10:13 Intake & Output 03/20/22 03/21/22 03/21/22 18:59 06:59 18:59 Intake Total 380 240 Output Total 1500 1000 Balance -1120 -1000 240 Intake: IV 180 Sodium Chloride 0.9% 1, 80 000 ml @ 10 mls/hr IV . Q24H [facility] Rx#:[id number] Sodium Ferric Gluconat- 100 Sucrose 125 mg In Sodium Chloride 0.9% 100 ml @ 100 mls/hr IVPB DAILY [facility] Rx#:[id number] Intake, IV Titration 200 Amount Caffeine-Sodium Benzoate 100 500 mg In Sodium Chloride 0.9% 100 ml @ 102 mls/hr IVPB DAILY [facility] Rx#: [id number] Cefepime 2 gm In Sodium 100 Chloride 0.9% 100 ml @ 25 mls/hr IVPB Q12H [facility] Rx# :[id number] Oral 0 240 Output: Urine 1500 1000 Other: Voiding Method Indwelling Catheter Indwelling Catheter Indwelling Catheter ABP, PAP, CO, CI - Last Documented Arterial Blood Pressure 158/70 - Labs CBC & Chem 7: 03/19/22 07:13 03/19/22 07:13 Labs: Abnormal Lab Results - Last 24 Hours (Table) 03/07/22 03/20/22 03/20/22 Range/Units 16:56 11:05 17:57 POC Glucose (mg/dL) 189 H 338 H (70-110) mg/dL Crossmatch See Detail 03/20/22 03/21/22 03/21/22 Range/Units 19:41 04:58 05:49 POC Glucose (mg/dL) 221 H 158 H 183 H (70-110) mg/dL Crossmatch
[2022-03-21] MEDS: acetaZOLAMIDE 250 MG TAB PO SCH (10:57)
[2022-03-21] MEDS: SPIRONOLACTONE 25 MG TAB PO SCH (10:58)
[2022-03-21 11:18] LABS: Anisocytosis Slight; HCT 39.3 % (34.0-46.0); HGB 12.9 gm/dL (11.4-16.0); Hypochromasia Moderate; MCH 31.9 pg (25.0-35.0); MCHC 32.7 g/dL (31.0-37.0); Macrocytosis Slight; Mean Platelet Volume 9.8; Platelet Count 126 k/uL (150-450); Poikilocytosis Slight; RBC 4.03 m/uL (3.80-5.40); RDW 18.1 % (11.5-15.5); WBC 3.8 k/uL (3.8-10.6)
[2022-03-21 11:28] LABS: Glucose,Whole Blood 207 mg/dL (70-110)
[2022-03-21 11:32] LABS: MCV 97.5 fL (80.0-100.0)
[2022-03-21 11:52] LABS: African American GFR (CKD) >90 (>60 ml/min/1.73 sqM); Anion Gap 9 mmol/L; Blood Urea Nitrogen 30 mg/dL (7-17); Calcium 8.3 mg/dL (8.4-10.2); Carbon Dioxide 17 mmol/L (22-30); Chloride 103 mmol/L (98-107); Glucose 190 mg/dL (74-99); Non-African American GFR(CKD) >90 (>60 ml/min/1.73 sqM); Potassium 5.2 mmol/L (3.5-5.1); Sodium 129 mmol/L (137-145)
--- NOTE | 2022-03-21 12:16 | P.PN ---
Progress Note - Text Progress Note Date: 03/21/22 Discussed with patient the recommendation for the use of a LSO brace to provide stabilization and support when getting up and about. Patient verbalizes understanding. Prescription has been provided for TLSO brace and patient will need this urgently to promote activity level and participation with PT/OT.
[2022-03-21] MEDS: MAG HYDROX/AL HYDROX/SIMETH 30 ML, diphenhydrAMINE ELIXIR 75 MG, LIDOCAINE VISCOUS 2% 3... PO SCH ×12 (12:35→20:19)
--- NOTE | 2022-03-21 12:49 | P.PN ---
Subjective Progress Note Date: 03/21/22 Principal diagnosis: status post lumbar decompression/fusion Is evaluation of 02/25/2022, the patient is being seen for a follow-up in the intensive care unit. The patient is post laminectomy and fusion/decompression of the spine and this was done on multiple levels. The patient overnight was kept on a mechanical ventilator. This morning, the patient is on propofol which is running at 35 mcg/kg/m. The patient is well sedated and the patient is quite sick sinus with a mechanical ventilator. The patient is requiring no pressors. The patient on normal saline in the at the rate of 50 mL an hour. The patient is on a mechanical ventilator on assist control mode at the rate of 18, tidal volume of 450, FiO2 of 40% with a PEEP of 5. The blood gas from today showed a pH of 7.41 with a pCO2 of 35 and pO2 of 138. Chest x-ray shows smaller lung volumes, some mild elevation of the right hemidiaphragm. ET tube is sitting just at the level of the aortic knob. No evidence of any pneumothorax. No airspace disease or consolidations. The patient also had a CT angiogram that showed no evidence of any pulmonary embolism. That showed atelectatic change in lung bases and various up other lung segments. No effusion. No lung collapse. CAT scan of the lumbosacral spine was also completed. The surgical one-sided dry clean and intact. The Hemovac output is bloody and its minimal at this point in time. The patient is afebrile. The patient is in atrial fibrillation. Rate is controlled. The patient is receiving Dilaudid for pain control.Blood work from today shows a white cell count of 14.7 with a hemoglobin of 10.1 and a platelet count of 232. The patient also has a sodium level of 135, potassium level of 4.4, chloride is 106 with a bicarb of 23 and a BUN of 15 and a creatinine of 0.5. On 02/26/2022, the patient is extubated and the patient is currently on room air oxygen. Pulse ox is around 91%. Chest x-rays showing a small left-sided pleural effusion, atelectatic change in the right lung base. The patient is able to move lower extremities. She has some limited numbness in her fingers the first and second finger and left upper extremity. Otherwise, she is hemodynamically stable. She remained nature fibrillation. She was started on Cardizem drip which is about 5 mg an hour for rate control and this was started yesterday. Her heart rate is under better control. The patient is also on beta blockers and the patient is on atenolol 100 mg by mouth on a daily basis. Pain is under adequate control. She is requiring Dilaudid 1 mg every 3 hours and 0.5 mg every 2 hours on an as-needed basis. She is also receiving Percocet 10/325 mg every 6 hours. She is currently also on IV fluids in the form of normal saline at the rate of 100 mL an hour. She remains on Decadron. Surgical 1 site is clean. The Hemovac has drained approximately 50 mL overnight and the output is minimal as such. No other significant events. No chest pain. No shortness of breath. White second visit 17 with a hemoglobin of 8.7. As such there is a some drop in hemoglobin. BUN is at 20 creatinine of 0.6 and a sodium level is at 135. She is using the incentive spirometer. She is pulling approximately 3000. Reevaluated today on 02/27/22, patient remains in the ICU, patient is doing fairly well. She is on room air, she is in atrial fibrillation, she is relatively asymptomatic. patient has IV fluid at 50 mL per hour, she is off all the different drips otherwise. WBC count is 17.9 hemoglobin is 8.7 and electrolytes are normal BUN is 20 creatinine 0.55. Chest x-ray from 02/26 is basically unremarkable.patient denies any shortness of breath, no cough, no wheezing, no chest pain, no further episodes of nausea or vomiting. Reevaluated today on 02/28/22, patient remains in the ICU as an overflow, she is on room air, not in any distress, but she does have lower extremities weakness and she seems to be generally weak. Continues to have a right triple-lumen catheter in the cervical region, and I'm recommending that we transition to a midline, and discontinue that triple-lumen catheter. Patient denies any shortness of breath, no cough, no wheezing, no major issues overnight. Basic metabolic profile this morning is relatively unremarkable. Reevaluated today on 03/01/22, patient remains as an overflow in the ICU. Doing fairly well, apparently she was up in the chair yesterday at bedside for most of the day. Pain seems to be fairly well controlled. Continues to have weakness, patient is being followed closely by orthopedics. Patient is doing well with incentive spirometry, remains on Xarelto for DVT prophylaxis. She is also on GI prophylaxis. On 03/19/2022, the patient is laying down with 20 bed elevation. Unable to raise the head of the bed further because of increased headache and the patient states that her brain gets frozen. She is currently on IV caffeine. She is also on Diamox. Surgical once is striking and intact. The patient has produced another negative fluid balance of 4 L over the past 24 hours while being on IV Lasix. Lower extremity edema has improved considerably. No new complaints. White cell cause of 4 with a hemoglobin of 11.7. Sodium is 132, bicarb is 25, BUN is 27, creatinine 0.6. The patient was also started on Fioricet for headaches. No fever or chills. She is currently on room air oxygen. Tolerating diet. Remains on IV cefepime. Reevaluated today on 03/20/22, patient is basically about the same, laying in bed with 20 bed elevation, unable to raise her head, patient has intermittent headaches, patient is generally weak, being followed by many consultants. Pulmonary-licea the patient is on room air, not in distress. Chest x-ray this morning basically showed no acute process. Labs including CBC and basic metabolic profile are basically normal, renal profile is normal. Repeat blood cultures have been negative since her last urine culture and blood culture from 03/07 showing Enterobacter cloaca. Patient has been on treatment all along reevaluated today on 03/21/22, patient is basically about the same, she seems to be profoundly weak. No active pulmonary symptoms, no cough no wheezing no shortness of breath, patient remains on room air. CBC is relatively unremarkable electrolytes are normal except for slightly low sodium of 129. Rest of the labs are basically unremarkable renal profile is normal Objective - Vital Signs Vital signs: Vital Signs Temp 97.8 F 03/21/22 08:15 Pulse 96 03/21/22 08:15 Resp 20 03/21/22 08:15 BP 99/35 03/21/22 08:15 Pulse Ox 100 03/21/22 08:15 FiO2 35 03/10/22 10:13 Intake & Output 03/20/22 03/21/22 03/21/22 18:59 06:59 18:59 Intake Total 380 240 Output Total 1500 1000 Balance -1120 -1000 240 Weight 127.2 kg Intake: IV 180 Sodium Chloride 0.9% 1, 80 000 ml @ 10 mls/hr IV . Q24H [facility] Rx#:[id number] Sodium Ferric Gluconat- 100 Sucrose 125 mg In Sodium Chloride 0.9% 100 ml @ 100 mls/hr IVPB DAILY [facility] Rx#:[id number] Intake, IV Titration 200 Amount Caffeine-Sodium Benzoate 100 500 mg In Sodium Chloride 0.9% 100 ml @ 102 mls/hr IVPB DAILY [facility] Rx#: [id number] Cefepime 2 gm In Sodium 100 Chloride 0.9% 100 ml @ 25 mls/hr IVPB Q12H [facility] Rx# :[id number] Oral 0 240 Output: Urine 1500 1000 Other: Voiding Method Indwelling Catheter Indwelling Catheter Indwelling Catheter ABP, PAP, CO, CI - Last Documented Arterial Blood Pressure 158/70 - Exam Physical Exam: Revealed a 71-year-old female in no distress. On room air. Head: Atraumatic, normocephalic. HEENT:[Neck is supple.] [No neck masses.] [No thyromegaly.] [No JVD.] Triple- lumen catheter noted in the right IJ. Chest: [Clear throughout, no crackles, no rhonchi, no wheezes.] Cardiac Exam: Regular rhythm, normal S1 and S2, no S3 gallop, no murmur.] Abdomen: [Soft, nontender, no megaly, no rebound, no guarding, normal bowel sounds.] Extremities: [No clubbing, no edema, no cyanosis.] Neurological Exam: [No focal neurologic deficit.]alert oriented 3, no gross focal deficits. Psychiatric: Normal mood affect and normal mental status examination. Skin: No rashes. - Labs CBC & Chem 7: 03/21/22 10:46 03/21/22 10:46 Labs: Abnormal Lab Results - Last 24 Hours (Table) 03/07/22 03/20/22 03/20/22 Range/Units 16:56 17:57 19:41 RDW (11.5-15.5) % Plt Count (150-450) k/uL Sodium (137-145) mmol/L Potassium (3.5-5.1) mmol/L Carbon Dioxide (22-30) mmol/L BUN (7-17) mg/dL Glucose (74-99) mg/dL POC Glucose (mg/dL) 338 H 221 H (70-110) mg/dL Calcium (8.4-10.2) mg/dL Crossmatch See Detail 03/21/22 03/21/22 03/21/22 Range/Units 04:58 05:49 10:46 RDW 18.1 H (11.5-15.5) % Plt Count 126 L (150-450) k/uL Sodium (137-145) mmol/L Potassium (3.5-5.1) mmol/L Carbon Dioxide (22-30) mmol/L BUN (7-17) mg/dL Glucose (74-99) mg/dL POC Glucose (mg/dL) 158 H 183 H (70-110) mg/dL Calcium (8.4-10.2) mg/dL Crossmatch 03/21/22 03/21/22 Range/Units 10:46 11:25 RDW (11.5-15.5) % Plt Count (150-450) k/uL Sodium 129 L (137-145) mmol/L Potassium 5.2 H (3.5-5.1) mmol/L Carbon Dioxide 17 L (22-30) mmol/L BUN 30 H (7-17) mg/dL Glucose 190 H (74-99) mg/dL POC Glucose (mg/dL) 207 H (70-110) mg/dL Calcium 8.3 L (8.4-10.2) mg/dL Crossmatch Assessment and Plan Assessment: impression: Lumbar decompression/fusion postoperative , postoperative day #25 Status post Hemovac placement postoperative day #12 Acute sepsis with Enterobacter cloaca urinary tract infection and bacteremia treated with cefepime. Atrial flutter/fibrillation with RVR requiring amiodarone. Cardiac arrest, brief pulseless electrical activity encountered in the operating room exact etiology is not clear. Non-anion gap metabolic acidosis, resolved Right sided wall hematoma secondary to fall, and the patient developed acute anemia. Hemoglobin went as low as 5.4. Fall was on 03/06/2022. Acute hypoxic/hypercapnic respiratory failure secondary to cardiac a rrest/pulseless electrical activity, Morbid obesity. BMI of 41.1 History of right hemidiaphragm paralysis History of right-sided breast cancer Chronic atrial fibrillation Dyslipidemia Benign essential hypertension Diarrhea requiring fecal management system placement negative for C. difficile colitis recommendation: Continue present supportive care measures Continue antibiotics as per ID on the case. Continue GI and DVT prophylaxis. Continue IV iron. Continue Lasix as needed. Continue Aldactone. Avoid anticoagulation therapy because of that hematoma. Continue to turn patient every 2 hours as per surgical recommendation. Continue incentive spirometry. will follow as needed Time with Patient: Less than 30
--- NOTE | 2022-03-21 16:35 | P.PN ---
Subjective Progress Note Date: 03/21/22 Principal diagnosis: UTI and bacteremia Patient is a 71-year-old female with a past medical history difficult for atrial fibrillation flutter hypertension hyperlipidemia hypothyroidism right breast cancer electively admitted to the hospital more than 2 weeks ago 022 for T10 to lumbar spine revision decompression and posterior lateral interbody fusion, patient did have a episode of hypotension and elevated white count requiring admission to the ICU patient did have a positive UA and gram- negative bacteremia and is scheduled for exploration of the thoracolumbar incision completed on 03/09/2022 with apparently no evidence of any abscess On today's evaluation that is 03/21/2022 the patient continues to be afebrile , the patient is breathing comfortably on room air, the patient denies any cough or sputum production no nausea no vomiting no abdominal pain and no diarrhea Objective - Vital Signs Vital signs: Vital Signs Temp 97.8 F 03/21/22 08:15 Pulse 96 03/21/22 08:15 Resp 20 03/21/22 08:15 BP 99/35 03/21/22 08:15 Pulse Ox 100 03/21/22 08:15 FiO2 35 03/10/22 10:13 Intake & Output 03/20/22 03/21/22 03/21/22 18:59 06:59 18:59 Intake Total 380 240 Output Total 1500 1000 Balance -1120 -1000 240 Intake: IV 180 Sodium Chloride 0.9% 1, 80 000 ml @ 10 mls/hr IV . Q24H [facility] Rx#:[id number] Sodium Ferric Gluconat- 100 Sucrose 125 mg In Sodium Chloride 0.9% 100 ml @ 100 mls/hr IVPB DAILY [facility] Rx#:[id number] Intake, IV Titration 200 Amount Caffeine-Sodium Benzoate 100 500 mg In Sodium Chloride 0.9% 100 ml @ 102 mls/hr IVPB DAILY [facility] Rx#: [id number] Cefepime 2 gm In Sodium 100 Chloride 0.9% 100 ml @ 25 mls/hr IVPB Q12H [facility] Rx# :[id number] Oral 0 240 Output: Urine 1500 1000 Other: Voiding Method Indwelling Catheter Indwelling Catheter Indwelling Catheter ABP, PAP, CO, CI - Last Documented Arterial Blood Pressure 158/70 - Exam GENERAL DESCRIPTION: An elderly female lying in bed in no distress RESPIRATORY SYSTEM: Unlabored breathing , decreased breath sounds at bases HEART: S1 S2 regular rate and rhythm , ABDOMEN: Soft , no tenderness Thoracolumbar spine incision stitches are intact with no swelling redness or drainage EXTREMITIES: Diffuse swelling bilateral lower extremity - Labs CBC & Chem 7: 03/21/22 10:46 03/21/22 10:46 Labs: Abnormal Lab Results - Last 24 Hours (Table) 03/07/22 03/20/22 03/20/22 Range/Units 16:56 17:57 19:41 RDW (11.5-15.5) % Plt Count (150-450) k/uL Sodium (137-145) mmol/L Potassium (3.5-5.1) mmol/L Carbon Dioxide (22-30) mmol/L BUN (7-17) mg/dL Glucose (74-99) mg/dL POC Glucose (mg/dL) 338 H 221 H (70-110) mg/dL Calcium (8.4-10.2) mg/dL Crossmatch See Detail 03/21/22 03/21/22 03/21/22 Range/Units 04:58 05:49 10:46 RDW 18.1 H (11.5-15.5) % Plt Count 126 L (150-450) k/uL Sodium (137-145) mmol/L Potassium (3.5-5.1) mmol/L Carbon Dioxide (22-30) mmol/L BUN (7-17) mg/dL Glucose (74-99) mg/dL POC Glucose (mg/dL) 158 H 183 H (70-110) mg/dL Calcium (8.4-10.2) mg/dL Crossmatch 03/21/22 03/21/22 Range/Units 10:46 11:25 RDW (11.5-15.5) % Plt Count (150-450) k/uL Sodium 129 L (137-145) mmol/L Potassium 5.2 H (3.5-5.1) mmol/L Carbon Dioxide 17 L (22-30) mmol/L BUN 30 H (7-17) mg/dL Glucose 190 H (74-99) mg/dL POC Glucose (mg/dL) 207 H (70-110) mg/dL Calcium 8.3 L (8.4-10.2) mg/dL Crossmatch Assessment and Plan (1) Gram-negative bacteremia Current Visit: Yes Status: Acute Code(s): R78.81 - BACTEREMIA SNOMED Code(s): 661803529655 Plan: 1patient with SIRS/sepsis in this patient who has been in the hospital for 2 weeks with elective admission to the hospital for thoracolumbar spine revision did have a cardiac arrest requiring resuscitation now with evidence of significant hypertension ileus and elevated white count source possible UTI as the patient urine as well as blood cultures are growing Enterobacter 2patient has shown clinical improvement and the patient white count has normalized, patient has completed a two-week course of cefepime and will be monitored closely off antibiotic therapy Time with Patient: Less than 30
[2022-03-21 16:51] LABS: Glucose,Whole Blood 292 mg/dL (70-110)
[2022-03-21] MEDS ORDERED: SODIUM BICARB 8.4% 50 ML SYR (1 MEQ/ML) IV STA (18:18)
[2022-03-21 19:35] LABS: Glucose,Whole Blood 163 mg/dL (70-110)
[2022-03-22] MEDS: ACETAMINOPHEN TAB 500 MG TAB PO SCH ×4 (00:04→17:07)
[2022-03-22] MEDS: DEXAMETHASONE SOD PHOSPHATE 4 MG/ML 1 ML VIAL IVP SCH ×3 (00:04→15:02)
[2022-03-22] MEDS: CYCLOBENZAPRINE 10 MG TAB PO PRN (03:02)
[2022-03-22] MEDS: SODIUM CHLORIDE 0.9% 1,000 ML IV SCH (03:10)
[2022-03-22] MEDS: LEVOTHYROXINE 88 MCG TAB PO SCH (05:50)
[2022-03-22 06:17] LABS: Glucose,Whole Blood 160 mg/dL (70-110)
[2022-03-22] MEDS: INSULIN DETEMIR (LEVEMIR) 100 UNIT/ML SYR SQ SCH (07:00)
[2022-03-22] MEDS: INSULIN ASPART (NovoLOG) 100 UNIT/ML VIAL SQ SCH ×4 (07:01→21:14)
[2022-03-22 08:00] LABS: Anisocytosis Slight; HCT 36.9 % (34.0-46.0); Hypochromasia Slight; MCH 31.2 pg (25.0-35.0); MCHC 32.7 g/dL (31.0-37.0); MCV 95.4 fL (80.0-100.0); Macrocytosis Slight; Mean Platelet Volume 11.3; Platelet Count 145 k/uL (150-450); Poikilocytosis Slight; RBC 3.86 m/uL (3.80-5.40); RDW 18.2 % (11.5-15.5); WBC 6.3 k/uL (3.8-10.6)
[2022-03-22 08:09] LABS: African American GFR (CKD) >90 (>60 ml/min/1.73 sqM); Anion Gap 9 mmol/L; Blood Urea Nitrogen 32 mg/dL (7-17); Calcium 8.2 mg/dL (8.4-10.2); Carbon Dioxide 21 mmol/L (22-30); Chloride 100 mmol/L (98-107); Glucose 145 mg/dL (74-99); Non-African American GFR(CKD) >90 (>60 ml/min/1.73 sqM); Potassium 5.1 mmol/L (3.5-5.1); Sodium 130 mmol/L (137-145)
--- NOTE | 2022-03-22 08:59 | P.PN ---
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 She is currently resting in bed, we increased HOB. PT to work with patient today and sit at bedside to perform leg exercises. Surgical dressing is clean dry and intact. Warren catheter is present and patent. She denies any fever/chills or chest pain. Objective - Vital Signs Vital signs: Vital Signs Temp 97.9 F 03/22/22 04:00 Pulse 121 H 03/22/22 04:00 Resp 18 03/22/22 04:00 BP 120/66 03/22/22 04:00 Pulse Ox 97 03/22/22 04:00 FiO2 35 03/10/22 10:13 Intake & Output 03/21/22 03/22/22 03/22/22 18:59 06:59 18:59 Intake Total 750 660 240 Output Total 1650 500 Balance -900 160 240 Weight 127.2 kg Intake: IV 170 120 Sodium Chloride 0.9% 1, 70 120 000 ml @ 10 mls/hr IV . Q24H [facility] Rx#:[id number] Sodium Ferric Gluconat- 100 Sucrose 125 mg In Sodium Chloride 0.9% 100 ml @ 100 mls/hr IVPB DAILY [facility] Rx#:[id number] Intake, IV Titration 100 Amount Caffeine-Sodium Benzoate 100 500 mg In Sodium Chloride 0.9% 100 ml @ 102 mls/hr IVPB DAILY [facility] Rx#: [id number] Oral 480 540 240 Output: Urine 1650 500 Uretheral (Warren) 500 Other: Voiding Method Indwelling Catheter Indwelling Catheter # Voids 1 ABP, PAP, CO, CI - Last Documented Arterial Blood Pressure 158/70 - Exam PHYSICAL EXAMINATION: General: Awake, alert, appropriate for age, in no acute distress. HEENT: No changes Extremities: Skin warm and dry without no acute lesions, coloration, temperature, skin intact, no tenderness or erythema. Integument: Surgical incisions: Dressings CDI Warren Cath present and patent Palpation: Special findings: pain with palpation of the right breast area with large hematoma noted as well as anterior chest wall. VASCULAR STATUS : Wrist Pulses: [2/4 bilateral radial and ulnar] Pedal Pulses: [2/4 bilateral DP and PT] Color: [Normal] Edema: Improved in arms and hands. NEUROLOGIC EXAMINATION: Mental Status: Awake and alert, oriented,but slow with normal attention, concentration and memory, and fluent, he has slow speech Cranial Nerves: I: Olfactory not tested. II: Visual acuity normal, no visual field deficit noted with confrontation. III,IV: Normal pupillary reflexes & intact extraocular movements without nystagmus. V,: Intact symmetrical facial sensation. VII: Intact symmetrical facial motor movement VIII: Hearing intact. IX,X: Intact gag, swallow, & normal voice. XI: Sternocleidomastoid, trapezius function intact. XII: Tongue midline with normal movements. Special Tests: L'hermitte's Sign: Absent Straight Leg Raising: Absent Bilateral Motor Exam (0-5/5, N/T) STRENGTH 4+ out of 5 strength in upper extremity's bilaterally all major muscle groups without focal deficits generalized weakness 4- to 5 strength bilateral lower extremities all major muscle groups with generalized weakness no focal deficits. She is weak in her hip flexors currently. REFLEXES Upper Extremity: RIGHT [2]/4 LEFT [2]/4 Lower Extremity: RIGHT [2]/4 LEFT [2]/4 Pathological Reflexes Warren's: RIGHT [Absent] LEFT [Absent] Babinski: RIGHT [Absent] LEFT [Absent] Clonus: RIGHT [None] LEFT [None] SENSORY Intact Gait and Functional Evaluation: Sit patient at bedside and increase physical activity as tolerated - Labs CBC & Chem 7: 03/22/22 06:40 03/22/22 06:40 Labs: Abnormal Lab Results - Last 24 Hours (Table) 03/21/22 03/21/22 03/21/22 Range/Units 10:46 10:46 11:25 RDW 18.1 H (11.5-15.5) % Plt Count 126 L (150-450) k/uL Sodium 129 L (137-145) mmol/L Potassium 5.2 H (3.5-5.1) mmol/L Carbon Dioxide 17 L (22-30) mmol/L BUN 30 H (7-17) mg/dL Creatinine (0.52-1.04) mg/dL Glucose 190 H (74-99) mg/dL POC Glucose (mg/dL) 207 H (70-110) mg/dL Calcium 8.3 L (8.4-10.2) mg/dL 03/21/22 03/21/22 03/22/22 Range/Units 16:49 19:31 06:14 RDW (11.5-15.5) % Plt Count (150-450) k/uL Sodium (137-145) mmol/L Potassium (3.5-5.1) mmol/L Carbon Dioxide (22-30) mmol/L BUN (7-17) mg/dL Creatinine (0.52-1.04) mg/dL Glucose (74-99) mg/dL POC Glucose (mg/dL) 292 H 163 H 160 H (70-110) mg/dL Calcium (8.4-10.2) mg/dL 03/22/22 03/22/22 Range/Units 06:40 06:40 RDW 18.2 H (11.5-15.5) % Plt Count 145 L (150-450) k/uL Sodium 130 L (137-145) mmol/L Potassium (3.5-5.1) mmol/L Carbon Dioxide 21 L (22-30) mmol/L BUN 32 H (7-17) mg/dL Creatinine 0.50 L (0.52-1.04) mg/dL Glucose 145 H (74-99) mg/dL POC Glucose (mg/dL) (70-110) mg/dL Calcium 8.2 L (8.4-10.2) mg/dL Assessment and Plan Assessment: 1. Lumbar spondylosis; adjacent segment disease status post L2-L4 posterior fusi on with proximal junctional failure; neurogenic claudication - Postoperative day #26 & 13 status post V22lisg decompression and fusion with washout and revision dural repair -UGI bleed, starting to resolve -ABLA expected outcome of surgery as well as secondary to UGI bleed. Status post 7 units PRBC and 1 pack platelets -bilateral lower extremity weakness, status post multiple controlled falls in- house -Enterobacter sepsis, UTI -status post cardiac arrest Plan: -Appreciate image consultant and team management PCC and medicine -Appreciate cardiothoracic, Gen. surgery, nephrology, ID evaluations -Continue Activity: Sit patient at bedside to perform leg exercises. Encourage to increase physical activity as tolerated. If severe headaches return, lay patient flat in bed. -Cont Abx for duration of stay -Caffiene daily 200 mg daily, Fioricet -Pain control: Adequate today ( Tylenol 1000 mg [facility], Oxy IR q4 hrs 10-15 mg titrated to pain (pt been on Dawson for 20 yrs), Cont Gabapentin,) -Acetazolamide 250mg daily -Meds: reviewed -Trend labs -Transfusions to vitals -GI ppx: senna, Miralax -Continue Warren changed per protocol -Cont with FBS -DVT PPX: Xarelto -Hygiene: Maintain dressing clean and dry. Meticulous cleaning after BMs away from incision site patient has had several instances on the floor where she was covered and bowel movement as well as urine up to her shoulders on her back. The wound needs to be kept meticulously clean. -Encourage IS 10x/hr -Will follow
[2022-03-22] MEDS: FUROSEMIDE 10 MG/ML 4 ML VIAL IV SCH (09:42)
[2022-03-22] MEDS: PANTOPRAZOLE 40 MG/10 ML VIAL IVP SCH (09:42)
[2022-03-22] MEDS: acetaZOLAMIDE 250 MG TAB PO SCH (09:43)
[2022-03-22] MEDS: ATORVASTATIN 10 MG TAB PO SCH (09:43)
[2022-03-22] MEDS: METOPROLOL TARTRATE 50 MG TAB PO SCH ×5 (09:43→21:14)
[2022-03-22] MEDS: SPIRONOLACTONE 25 MG TAB PO SCH (09:43)
[2022-03-22] MEDS: GABAPENTIN 400 MG CAP PO SCH ×3 (09:43→21:14)
[2022-03-22] MEDS: AMIODARONE 200 MG TAB PO SCH ×2 (09:43→21:14)
[2022-03-22] MEDS: DULoxetine HCL 60 MG CAPSULE.DR PO SCH (09:43)
[2022-03-22] MEDS: lisinopriL 5 MG TAB PO SCH (09:43)
[2022-03-22] MEDS: CAFFEINE-SODIUM BENZOATE 500 MG in SODIUM CHLORIDE 0.9% 100 ML IVPB SCH (09:44)
[2022-03-22] MEDS: MAG HYDROX/AL HYDROX/SIMETH 30 ML, diphenhydrAMINE ELIXIR 75 MG, LIDOCAINE VISCOUS 2% 3... PO SCH ×9 (09:45→22:07)
[2022-03-22] MEDS: SODIUM FERRIC GLUCONAT-SUCROSE 125 MG in SODIUM CHLORIDE 0.9% 100 ML IVPB SCH (09:45)
--- NOTE | 2022-03-22 09:55 | P.PN ---
Subjective PROGRESS NOTE The patient is a 71-year-old female who underwent lumbar surgery on February 24 for severe stenosis, mechanical low back pain and neurogenic claudication. She has a known history of atrial flutter, atrial fibrillation. She continues to be in atrial flutter at this time with 2 to one conduction. She had an echocardiogram on February 27 that showed an ejection fraction of 35-40% with moderate mitral regurgitation. In 2018 her LV systolic function was normal. It is unclear if this deterioration is an acute event following her surgery. She feels better overall, has musculoskeletal right-sided discomfort. She is not anticoagulated because of recent bleeding. She denies any nausea or vomiting. Her blood pressure is under good control. She had positive urine culture. March 14: The patient is feeling slightly better today, she denies any chest discomfort or dizziness. She continues to be in atrial flutter with 2 to one conduction. She had episodes of her lower heart rate. She is tolerating her present medical regimen. She has no evidence of ventricular tachycardia. She continues to be in bed, she is allowed to lift her head 30 today. She has no nausea or vomiting. She has no dizziness or palpitations. Her right-sided chest discomfort has improved. Her anticoagulation remains on hold because of her anemia and hematoma. March 15: Patient continues to have soreness but better. She has mild nausea but no significant dyspnea. Her atrial flutter rate is under better control. She denies any chest discomfort, dizziness or palpitations. She continues to be at bedrest. Her blood pressures been stable on the present regimen. March 16: The patient continues to be in atrial flutter with controlled ventricular response. She feels better overall but continues to feel fatigued. She denies any chest discomfort, dizziness or palpitations. She continues to be at bedrest because of a leak. Her urine output is stable. She is not anticoagulated yet per surgical team. Hemodynamically she is stable. March 17: Patient is feeling well overall remains in bed flat, she continues to be in atrial flutter with controlled ventricular response. She has not been anticoagulated per surgical team. She denies any chest discomfort, her breathing is better. She denies any dizziness or palpitations, no nausea. She is tolerating by mouth. She has no fever. March 18: The patient is complaining of left sided respirophasic and muscular chest discomfort. She has some discomfort in her mouth. She continues to be in atrial flutter with controlled ventricular response. She denies any dizziness or palpitations. She continues to be a bedrest. She has no arrhythmia. She has mild nausea. Not anticoagulated yet per surgical team. March 19: She continues to have soreness in her mouth but otherwise denies any chest discomfort, she has some wheezes but does not feel dyspneic. She has good urine output. She continues to be in atrial fibrillation with controlled ventricular response. Anticoagulation has not been initiated yet by the surgical team. Her blood pressure is stable and she is on no vasopressors. She continues to be at bedrest. 03/20 Patient seen and examined. Patient was started on Xarelto last night. Denies any hematochezia or melena. Remains in A. fib with controlled heart rates. Has been having room spinning sensation whenever she turns her head to the right however states this has been going on for 3 weeks. Denies any chest pain or pressure. Does have some right lower quadrant abdominal pain. Denies any shortness breath. Is receiving Lasix IV 40 mg daily. Sodium remains low at 132. 03/21 Patient seen and examined. Patient did have borderline blood pressures 90s over 50s and therefore her metoprolol, Diamox, spironolactone was held this morning. She has noted a feeling of more fluttering and heart pounding or last hour and heart rates are mildly elevated up in the 100-110 range in atrial fibrillation. Denies any chest pain or pressure. 03/22 Patient seen and examined. Patient was having some feeling of fluttering sensation yesterday when metoprolol had been held however feeling better today with rare instances of feeling of fluttering. Main issue is back pain which she believes is related to lying on her back for this long. Does help somewhat with pain medications. Heart rates have been better controlled yesterday however one pack in the atrial flutter with RVR with heart rate 120s this morning. Has not had much of an appetite and not eating much. Sodium 130. BUN 32 and creatinine 0.5 PHYSICAL EXAMINATION: Vitals reviewed LUNGS: Scattered wheezes HEART: Irregular rate and rhythm, , S1, S2. No S3. No systolic murmur ABDOMEN: Soft, nontender, no organomegaly, obese EXTREMETIES: Trace to +1 edema IMPRESSION: 1. Status post back surgery 2. Atrial flutter, currently RVR 3. Anemia, stable 4. Cardiomyopathy of unknown etiology, no evidence of acute CHF at this time 5. Bacteremia 6. Acute renal injury resolved 7. Morbid obesity 8. Hyperlipidemia 9. Hypertension, controlled 10. Room spinning sensation for 3 weeks, likely vertigo PLAN: Remains on amiodarone 200 mg twice a day as well as metoprolol 50 mg 3 times a day. We will increase metoprolol to 75 mg 3 times a day and monitor response. Objective - Vital Signs Vital signs: Vital Signs Temp 97.9 F 03/22/22 04:00 Pulse 121 H 03/22/22 04:00 Resp 18 03/22/22 04:00 BP 120/66 03/22/22 04:00 Pulse Ox 97 03/22/22 04:00 FiO2 35 03/10/22 10:13 Intake & Output 03/21/22 03/22/22 03/22/22 18:59 06:59 18:59 Intake Total 750 660 240 Output Total 1650 500 Balance -900 160 240 Weight 127.2 kg Intake: IV 170 120 Sodium Chloride 0.9% 1, 70 120 000 ml @ 10 mls/hr IV . Q24H [facility] Rx#:[id number] Sodium Ferric Gluconat- 100 Sucrose 125 mg In Sodium Chloride 0.9% 100 ml @ 100 mls/hr IVPB DAILY [facility] Rx#:[id number] Intake, IV Titration 100 Amount Caffeine-Sodium Benzoate 100 500 mg In Sodium Chloride 0.9% 100 ml @ 102 mls/hr IVPB DAILY [facility] Rx#: [id number] Oral 480 540 240 Output: Urine 1650 500 Uretheral (Warren) 500 Other: Voiding Method Indwelling Catheter Indwelling Catheter # Voids 1 ABP, PAP, CO, CI - Last Documented Arterial Blood Pressure 158/70 - Labs CBC & Chem 7: 03/22/22 06:40 03/22/22 06:40 Labs: Abnormal Lab Results - Last 24 Hours (Table) 03/21/22 03/21/22 03/21/22 Range/Units 10:46 10:46 11:25 RDW 18.1 H (11.5-15.5) % Plt Count 126 L (150-450) k/uL Sodium 129 L (137-145) mmol/L Potassium 5.2 H (3.5-5.1) mmol/L Carbon Dioxide 17 L (22-30) mmol/L BUN 30 H (7-17) mg/dL Creatinine (0.52-1.04) mg/dL Glucose 190 H (74-99) mg/dL POC Glucose (mg/dL) 207 H (70-110) mg/dL Calcium 8.3 L (8.4-10.2) mg/dL 03/21/22 03/21/22 03/22/22 Range/Units 16:49 19:31 06:14 RDW (11.5-15.5) % Plt Count (150-450) k/uL Sodium (137-145) mmol/L Potassium (3.5-5.1) mmol/L Carbon Dioxide (22-30) mmol/L BUN (7-17) mg/dL Creatinine (0.52-1.04) mg/dL Glucose (74-99) mg/dL POC Glucose (mg/dL) 292 H 163 H 160 H (70-110) mg/dL Calcium (8.4-10.2) mg/dL 03/22/22 03/22/22 Range/Units 06:40 06:40 RDW 18.2 H (11.5-15.5) % Plt Count 145 L (150-450) k/uL Sodium 130 L (137-145) mmol/L Potassium (3.5-5.1) mmol/L Carbon Dioxide 21 L (22-30) mmol/L BUN 32 H (7-17) mg/dL Creatinine 0.50 L (0.52-1.04) mg/dL Glucose 145 H (74-99) mg/dL POC Glucose (mg/dL) (70-110) mg/dL Calcium 8.2 L (8.4-10.2) mg/dL
[2022-03-22 11:41] LABS: Glucose,Whole Blood 204 mg/dL (70-110)
--- NOTE | 2022-03-22 14:40 | P.PN ---
Subjective Progress Note Date: 03/22/22 Patient is a 71 yo CF with a hx of A fib s/p ablation, GERD, hypertension, dyslipidemia, and right diaphragmatic paralysis who presented for T10 to Pelvis decompression and fusion with revision. Blood loss and the case was approximately 1900 mL. During her operative course she required phenylephrine IV infusion, Vasopressin IVP. She also received TXA gtt. She received 7 L of lactated Ringer's. She received 1 amp of sodium bicarb intaop. She also received albumin. Her operative course was complicated with a cardiac arrest. During the case she developed A. fib with RVR and then quickly transitioned into bradycardia with a low end-tidal CO2. She received 0.4 of atropine and CPR was started. She received epinephrine 0.5. She achieved ROSC. Total down time was less than 5 minutes. She was extubated on 02/25. She continued to do well with struggled with pain. She was downgraded from ICU on 03/03. She was evaluated by PMR, awaiting inpatient rehab. On 03/07, patient was noted to be hypotensive with elevated WBC count of 42.3, with worsening renal function and hyperkalamia. Patient was treated with NS bolus, IV insulin/D50, Albuterol and sodium bicarbonate. She was transferred back to the ICU for septic shock requiring Levophed. Started on Vancomycin and Cefepime, blood and urine cultures were positive for Enterobacter. ID was consulted and she was continued on Cefepime while Vancomycin was discontinued. Levophed was able to be weaned off. Her hemoglobin continued to drop, she requ ired a total of [address] AP was ordered which showed a large right chest hematoma and dilated small bowel concerning for ileus. CT surgery was consulted and recommended conservative management for chest hematoma. NG tube was inserted and patient undewent EGD. EGD showed mild gastritis and esophagitis, she was continued to Protonix. Patient underwent irrigation of debridement of the thoracolumbar and pelvic skin, soft tissue, muscle, bone and spine along with dural repair with patch graft L1 on 03/09. Her hyponatremia and BETHANY resolved with IV hydration. She was started on Lasix IV for volume overload during fluid resuscitation for sepsis. 03/21 Patient was seen and examined. No acute events overnight. Patient reports vertigo like symptoms have resolved. CT head was performed yesterday and was negative for acute findings. She reports palpitations and a pounding sensation in her chest. She also reports shortness of breath, though improved. BP low this morning 90s/30s which has improved on recheck. 03/22 Patient was seen and examined. No acute events overnight. Patient reports improvement in palpitations. She reports lower back pain and radiculopathy. Pain is spastic in nature, 10 out of 10 in severity. Cleared by orthopedic surgery to get out of bed She'll be working with PT today. General: ill appearing, mild distress due to pain, appears at stated age, leth argic Derm: warm, dry Head: atraumatic, normocephalic, symmetric Eyes: EOMI, no lid lag, anicteric sclera Mouth: no lip lesion, dry membranes moist Cardiovascular: S1S2 irregular, no murmur Lungs: Decreased BS bilateral, rales noted at the bases, no accessory muscle use Ext: no gross muscle atrophy, 1+ LE edema, no contractures Abd: Warren catheter in place. Obese. Non tender to palpation. Neuro: Moving all 4 extremities independently, sensation intact to touch BL LE Psych: Alert, oriented, appropriate affect #Septic shock, Enterobacter cloacae bacteremia #Enterobacter cloacae bacteremia with likly source UTI #Enterobacter cloacae UTI #Lactic acidosis Currently off mechanical ventilation and pressors. Complete a course of cefepime. Blood cultures + Enterobacter cloacae. Urine culture + Enterobacter cloacae. Telemetry monitoring. Infectious disease and Pulmonology/ICU on board. #Acute on Chronic Systolic CHF Echo shows EF 35-40% with severe pulmonary HTN, moderate MR. Patient will need ischemic workup. Patient started on ACEi and Aldactone (held this morning due to hypotension) Continue Lasix 40 mg IV QD. Strict intake and outtake. Cardiology on board. #Prerenal azotemia #Hyponatremia, hypervolemic Na 130, BUN 32 Renal US shows on hydronephrosis on the R, enlarged cyst in the L kidney measuring up to 8.3 cm. BETHANY likely due to ATN from septic shock and hypoNa from poor oral intake. Lasix 40 mg IV QD. Nephrology on board. #Hyperglycemia likely secondary to steroids No official DM diagnosis Levemir 20 units daily. Sliding scale. A1c is 6, likely prediabetic, will benefit from metformin upon discharge. #Acute blood loss anemia #Right breast hematoma #GI bleed, concern for ischemic bowel s/p 7 unit PRBC. EGD showed mild gastritis and mild esophagitis with no active bleeding. Restart Xarelto. CT surgery recommends conservative managment of hematoma. Monitor hemoglobin. Continue Ferrlecit. Transfuse if Hg < 7. #Transaminitis Obstructive LFTs. Likely ischemic hepatitis. Improved. #Atrial fibrillation Restarted on Xarelto. Continue Amiodarone, Metoprolol. Cardiology on board. #Abdominal pain #IIeus versus SBO Advance diet as tolerated. General surgery on board. #T10 to pelvis decompression with fusion #Post-op pain Management per Orthopedic surgery. Gabapentin, Valium, Flexeril. Decadron. Continue with Dilaudid and Percocet PRN. Patient has no stairs and planning on going home, she has nearby help from family but lives alone. Patient currently on bed rest. Awaiting for orthopedic surgery to clear patient for PT OT PT and OT consulted. PMR consulted. #Right diaphragmatic paralysis Aggressive pulmonary hygiene. Pulmonology on board. #HLD Statin. #HTN Cotinue Metoprolol. Lisinopril, Aldactone held due to hypotension today. Monitor vitals and adjust medication if necessary. Resolved: Hyperkalemia, Aborted cardiac arrest Objective - Vital Signs Vital signs: Vital Signs Temp 97.9 F 03/22/22 04:00 Pulse 97 03/22/22 12:00 Resp 16 03/22/22 12:00 BP 111/64 03/22/22 12:00 Pulse Ox 97 03/22/22 12:00 FiO2 35 03/10/22 10:13 Intake & Output 03/21/22 03/22/22 03/22/22 18:59 06:59 18:59 Intake Total 750 660 540 Output Total 1650 500 350 Balance -900 160 190 Weight 127.2 kg Intake: IV 170 120 200 Sodium Chloride 0.9% 1, 70 120 100 000 ml @ 10 mls/hr IV . Q24H [facility] Rx#:[id number] Sodium Ferric Gluconat- 100 100 Sucrose 125 mg In Sodium Chloride 0.9% 100 ml @ 100 mls/hr IVPB DAILY [facility] Rx#:[id number] Intake, IV Titration 100 100 Amount Caffeine-Sodium Benzoate 100 500 mg In Sodium Chloride 0.9% 100 ml @ 102 mls/hr IVPB DAILY [facility] Rx#: [id number] Sodium Ferric Gluconat- 100 Sucrose 125 mg In Sodium Chloride 0.9% 100 ml @ 100 mls/hr IVPB DAILY [facility] Rx#:[id number] Oral 480 540 240 Output: Urine 1650 500 350 Uretheral (Warren) 500 Other: Voiding Method Indwelling Catheter Indwelling Catheter Indwelling Catheter # Voids 3 ABP, PAP, CO, CI - Last Documented Arterial Blood Pressure 158/70 - Labs CBC & Chem 7: 03/22/22 06:40 03/22/22 06:40 Labs: Abnormal Lab Results - Last 24 Hours (Table) 03/21/22 03/21/22 03/22/22 Range/Units 16:49 19:31 06:14 RDW (11.5-15.5) % Plt Count (150-450) k/uL Sodium (137-145) mmol/L Carbon Dioxide (22-30) mmol/L BUN (7-17) mg/dL Creatinine (0.52-1.04) mg/dL Glucose (74-99) mg/dL POC Glucose (mg/dL) 292 H 163 H 160 H (70-110) mg/dL Calcium (8.4-10.2) mg/dL 03/22/22 03/22/22 03/22/22 Range/Units 06:40 06:40 11:36 RDW 18.2 H (11.5-15.5) % Plt Count 145 L (150-450) k/uL Sodium 130 L (137-145) mmol/L Carbon Dioxide 21 L (22-30) mmol/L BUN 32 H (7-17) mg/dL Creatinine 0.50 L (0.52-1.04) mg/dL Glucose 145 H (74-99) mg/dL POC Glucose (mg/dL) 204 H (70-110) mg/dL Calcium 8.2 L (8.4-10.2) mg/dL
--- NOTE | 2022-03-22 14:45 | P.PN ---
Subjective Progress Note Date: 03/22/22 Principal diagnosis: status post lumbar decompression/fusion Is evaluation of 02/25/2022, the patient is being seen for a follow-up in the intensive care unit. The patient is post laminectomy and fusion/decompression of the spine and this was done on multiple levels. The patient overnight was kept on a mechanical ventilator. This morning, the patient is on propofol which is running at 35 mcg/kg/m. The patient is well sedated and the patient is quite sick sinus with a mechanical ventilator. The patient is requiring no pressors. The patient on normal saline in the at the rate of 50 mL an hour. The patient is on a mechanical ventilator on assist control mode at the rate of 18, tidal volume of 450, FiO2 of 40% with a PEEP of 5. The blood gas from today showed a pH of 7.41 with a pCO2 of 35 and pO2 of 138. Chest x-ray shows smaller lung volumes, some mild elevation of the right hemidiaphragm. ET tube is sitting just at the level of the aortic knob. No evidence of any pneumothorax. No airspace disease or consolidations. The patient also had a CT angiogram that showed no evidence of any pulmonary embolism. That showed atelectatic change in lung bases and various up other lung segments. No effusion. No lung collapse. CAT scan of the lumbosacral spine was also completed. The surgical one-sided dry clean and intact. The Hemovac output is bloody and its minimal at this point in time. The patient is afebrile. The patient is in atrial fibrillation. Rate is controlled. The patient is receiving Dilaudid for pain control.Blood work from today shows a white cell count of 14.7 with a hemoglobin of 10.1 and a platelet count of 232. The patient also has a sodium level of 135, potassium level of 4.4, chloride is 106 with a bicarb of 23 and a BUN of 15 and a creatinine of 0.5. On 02/26/2022, the patient is extubated and the patient is currently on room air oxygen. Pulse ox is around 91%. Chest x-rays showing a small left-sided pleural effusion, atelectatic change in the right lung base. The patient is able to move lower extremities. She has some limited numbness in her fingers the first and second finger and left upper extremity. Otherwise, she is hemodynamically stable. She remained nature fibrillation. She was started on Cardizem drip which is about 5 mg an hour for rate control and this was started yesterday. Her heart rate is under better control. The patient is also on beta blockers and the patient is on atenolol 100 mg by mouth on a daily basis. Pain is under adequate control. She is requiring Dilaudid 1 mg every 3 hours and 0.5 mg every 2 hours on an as-needed basis. She is also receiving Percocet 10/325 mg every 6 hours. She is currently also on IV fluids in the form of normal saline at the rate of 100 mL an hour. She remains on Decadron. Surgical 1 site is clean. The Hemovac has drained approximately 50 mL overnight and the output is minimal as such. No other significant events. No chest pain. No shortness of breath. White second visit 17 with a hemoglobin of 8.7. As such there is a some drop in hemoglobin. BUN is at 20 creatinine of 0.6 and a sodium level is at 135. She is using the incentive spirometer. She is pulling approximately 3000. Reevaluated today on 02/27/22, patient remains in the ICU, patient is doing fairly well. She is on room air, she is in atrial fibrillation, she is relatively asymptomatic. patient has IV fluid at 50 mL per hour, she is off all the different drips otherwise. WBC count is 17.9 hemoglobin is 8.7 and electrolytes are normal BUN is 20 creatinine 0.55. Chest x-ray from 02/26 is basically unremarkable.patient denies any shortness of breath, no cough, no wheezing, no chest pain, no further episodes of nausea or vomiting. Reevaluated today on 02/28/22, patient remains in the ICU as an overflow, she is on room air, not in any distress, but she does have lower extremities weakness and she seems to be generally weak. Continues to have a right triple-lumen catheter in the cervical region, and I'm recommending that we transition to a midline, and discontinue that triple-lumen catheter. Patient denies any shortness of breath, no cough, no wheezing, no major issues overnight. Basic metabolic profile this morning is relatively unremarkable. Reevaluated today on 03/01/22, patient remains as an overflow in the ICU. Doing fairly well, apparently she was up in the chair yesterday at bedside for most of the day. Pain seems to be fairly well controlled. Continues to have weakness, patient is being followed closely by orthopedics. Patient is doing well with incentive spirometry, remains on Xarelto for DVT prophylaxis. She is also on GI prophylaxis. On 03/19/2022, the patient is laying down with 20 bed elevation. Unable to raise the head of the bed further because of increased headache and the patient states that her brain gets frozen. She is currently on IV caffeine. She is also on Diamox. Surgical once is striking and intact. The patient has produced another negative fluid balance of 4 L over the past 24 hours while being on IV Lasix. Lower extremity edema has improved considerably. No new complaints. White cell cause of 4 with a hemoglobin of 11.7. Sodium is 132, bicarb is 25, BUN is 27, creatinine 0.6. The patient was also started on Fioricet for headaches. No fever or chills. She is currently on room air oxygen. Tolerating diet. Remains on IV cefepime. Reevaluated today on 03/20/22, patient is basically about the same, laying in bed with 20 bed elevation, unable to raise her head, patient has intermittent headaches, patient is generally weak, being followed by many consultants. Pulmonary-licea the patient is on room air, not in distress. Chest x-ray this morning basically showed no acute process. Labs including CBC and basic metabolic profile are basically normal, renal profile is normal. Repeat blood cultures have been negative since her last urine culture and blood culture from 03/07 showing Enterobacter cloaca. Patient has been on treatment all along reevaluated today on 03/21/22, patient is basically about the same, she seems to be profoundly weak. No active pulmonary symptoms, no cough no wheezing no shortness of breath, patient remains on room air. CBC is relatively unremarkable electrolytes are normal except for slightly low sodium of 129. Rest of the labs are basically unremarkable renal profile is normal Reevaluated today on 03/22/22, patient is basically the same, no active pulmonary issues she is generally weak, having physical therapy, patient denies any cough wheezing or shortness of breath, she is just generally weak. CBC is basically normal a left lites are normal renal profile is normal Objective - Vital Signs Vital signs: Vital Signs Temp 97.9 F 03/22/22 04:00 Pulse 97 03/22/22 12:00 Resp 16 03/22/22 12:00 BP 111/64 03/22/22 12:00 Pulse Ox 97 03/22/22 12:00 FiO2 35 03/10/22 10:13 Intake & Output 03/21/22 03/22/22 03/22/22 18:59 06:59 18:59 Intake Total 750 660 540 Output Total 1650 500 350 Balance -900 160 190 Weight 127.2 kg Intake: IV 170 120 200 Sodium Chloride 0.9% 1, 70 120 100 000 ml @ 10 mls/hr IV . Q24H [facility] Rx#:[id number] Sodium Ferric Gluconat- 100 100 Sucrose 125 mg In Sodium Chloride 0.9% 100 ml @ 100 mls/hr IVPB DAILY [facility] Rx#:[id number] Intake, IV Titration 100 100 Amount Caffeine-Sodium Benzoate 100 500 mg In Sodium Chloride 0.9% 100 ml @ 102 mls/hr IVPB DAILY [facility] Rx#: [id number] Sodium Ferric Gluconat- 100 Sucrose 125 mg In Sodium Chloride 0.9% 100 ml @ 100 mls/hr IVPB DAILY [facility] Rx#:[id number] Oral 480 540 240 Output: Urine 1650 500 350 Uretheral (Warren) 500 Other: Voiding Method Indwelling Catheter Indwelling Catheter Indwelling Catheter # Voids 3 ABP, PAP, CO, CI - Last Documented Arterial Blood Pressure 158/70 - Exam Physical Exam: Revealed a 71-year-old female in no distress. On room air. Head: Atraumatic, normocephalic. HEENT:[Neck is supple.] [No neck masses.] [No thyromegaly.] [No JVD.] Triple- lumen catheter noted in the right IJ. Chest: [Clear throughout, no crackles, no rhonchi, no wheezes.] Cardiac Exam: Regular rhythm, normal S1 and S2, no S3 gallop, no murmur.] Abdomen: [Soft, nontender, no megaly, no rebound, no guarding, normal bowel sounds.] Extremities: [No clubbing, no edema, no cyanosis.] Neurological Exam: [No focal neurologic deficit.]alert oriented 3, no gross focal deficits. Psychiatric: Normal mood affect and normal mental status examination. Skin: No rashes. - Labs CBC & Chem 7: 03/22/22 06:40 03/22/22 06:40 Labs: Abnormal Lab Results - Last 24 Hours (Table) 03/21/22 03/21/22 03/22/22 Range/Units 16:49 19:31 06:14 RDW (11.5-15.5) % Plt Count (150-450) k/uL Sodium (137-145) mmol/L Carbon Dioxide (22-30) mmol/L BUN (7-17) mg/dL Creatinine (0.52-1.04) mg/dL Glucose (74-99) mg/dL POC Glucose (mg/dL) 292 H 163 H 160 H (70-110) mg/dL Calcium (8.4-10.2) mg/dL 03/22/22 03/22/22 03/22/22 Range/Units 06:40 06:40 11:36 RDW 18.2 H (11.5-15.5) % Plt Count 145 L (150-450) k/uL Sodium 130 L (137-145) mmol/L Carbon Dioxide 21 L (22-30) mmol/L BUN 32 H (7-17) mg/dL Creatinine 0.50 L (0.52-1.04) mg/dL Glucose 145 H (74-99) mg/dL POC Glucose (mg/dL) 204 H (70-110) mg/dL Calcium 8.2 L (8.4-10.2) mg/dL Assessment and Plan Assessment: impression: Lumbar decompression/fusion postoperative , postoperative day #26 Status post Hemovac placement postoperative day #13 Acute sepsis with Enterobacter cloaca urinary tract infection and bacteremia treated with cefepime. Atrial flutter/fibrillation with RVR requiring amiodarone. Cardiac arrest, brief pulseless electrical activity encountered in the operating room exact etiology is not clear. Non-anion gap metabolic acidosis, resolved Right sided wall hematoma secondary to fall, and the patient developed acute anemia. Hemoglobin went as low as 5.4. Fall was on 03/06/2022. Acute hypoxic/hypercapnic respiratory failure secondary to cardiac arrest/pulseless electrical activity, Morbid obesity. BMI of 41.1 History of right hemidiaphragm paralysis History of right-sided breast cancer Chronic atrial fibrillation Dyslipidemia Benign essential hypertension Diarrhea requiring fecal management system placement negative for C. difficile colitis recommendation: Continue present supportive care measures Continue antibiotics as per ID on the case. Continue GI and DVT prophylaxis. Continue IV iron. Continue Lasix as needed. Continue Aldactone. Avoid anticoagulation therapy because of that hematoma. Continue to turn patient every 2 hours as per surgical recommendation. Continue incentive spirometry. will follow as needed Time with Patient: Less than 30
[2022-03-22 16:30] LABS: Glucose,Whole Blood 275 mg/dL (70-110)
[2022-03-22 20:19] LABS: Glucose,Whole Blood 218 mg/dL (70-110)
[2022-03-22] MEDS: RIVAROXABAN 20 MG TAB PO SCH (21:14)
--- NOTE | 2022-03-22 22:16 | P.PN ---
Subjective Progress Note Date: 03/22/22 Principal diagnosis: UTI and bacteremia Patient is a 71-year-old female with a past medical history difficult for atrial fibrillation flutter hypertension hyperlipidemia hypothyroidism right breast cancer electively admitted to the hospital more than 2 weeks ago 022 for T10 to lumbar spine revision decompression and posterior lateral interbody fusion, patient did have a episode of hypotension and elevated white count requiring admission to the ICU patient did have a positive UA and gram- negative bacteremia and is scheduled for exploration of the thoracolumbar incision completed on 03/09/2022 with apparently no evidence of any abscess On today's evaluation that is 03/22/2022 the patient denies any fever or chills , the patient is breathing comfortably on room air, the patient did have occasional dry cough, no nausea no vomiting no abdominal pain and no diarrhea Objective - Vital Signs Vital signs: Vital Signs Temp 97.9 F 03/22/22 04:00 Pulse 97 03/22/22 12:00 Resp 16 03/22/22 12:00 BP 111/64 03/22/22 12:00 Pulse Ox 97 03/22/22 12:00 FiO2 35 03/10/22 10:13 Intake & Output 03/21/22 03/22/22 03/22/22 18:59 06:59 18:59 Intake Total 750 660 240 Output Total 1650 500 350 Balance -900 160 -110 Weight 127.2 kg Intake: IV 170 120 Sodium Chloride 0.9% 1, 70 120 000 ml @ 10 mls/hr IV . Q24H [facility] Rx#:[id number] Sodium Ferric Gluconat- 100 Sucrose 125 mg In Sodium Chloride 0.9% 100 ml @ 100 mls/hr IVPB DAILY [facility] Rx#:[id number] Intake, IV Titration 100 Amount Caffeine-Sodium Benzoate 100 500 mg In Sodium Chloride 0.9% 100 ml @ 102 mls/hr IVPB DAILY [facility] Rx#: [id number] Oral 480 540 240 Output: Urine 1650 500 350 Uretheral (Warren) 500 Other: Voiding Method Indwelling Catheter Indwelling Catheter Indwelling Catheter # Voids 3 ABP, PAP, CO, CI - Last Documented Arterial Blood Pressure 158/70 - Exam GENERAL DESCRIPTION: An elderly female lying in bed in no distress RESPIRATORY SYSTEM: Unlabored breathing , decreased breath sounds at bases HEART: S1 S2 regular rate and rhythm , ABDOMEN: Soft , no tenderness Thoracolumbar spine incision stitches are intact with no swelling redness or drainage EXTREMITIES: Diffuse swelling bilateral lower extremity - Labs CBC & Chem 7: 03/22/22 06:40 03/22/22 06:40 Labs: Abnormal Lab Results - Last 24 Hours (Table) 03/21/22 03/21/22 03/22/22 Range/Units 16:49 19:31 06:14 RDW (11.5-15.5) % Plt Count (150-450) k/uL Sodium (137-145) mmol/L Carbon Dioxide (22-30) mmol/L BUN (7-17) mg/dL Creatinine (0.52-1.04) mg/dL Glucose (74-99) mg/dL POC Glucose (mg/dL) 292 H 163 H 160 H (70-110) mg/dL Calcium (8.4-10.2) mg/dL 03/22/22 03/22/22 03/22/22 Range/Units 06:40 06:40 11:36 RDW 18.2 H (11.5-15.5) % Plt Count 145 L (150-450) k/uL Sodium 130 L (137-145) mmol/L Carbon Dioxide 21 L (22-30) mmol/L BUN 32 H (7-17) mg/dL Creatinine 0.50 L (0.52-1.04) mg/dL Glucose 145 H (74-99) mg/dL POC Glucose (mg/dL) 204 H (70-110) mg/dL Calcium 8.2 L (8.4-10.2) mg/dL Assessment and Plan (1) Gram-negative bacteremia Current Visit: Yes Status: Acute Code(s): R78.81 - BACTEREMIA SNOMED Code(s): 636110493004 Plan: 1patient with SIRS/sepsis in this patient who has been in the hospital for 2 weeks with elective admission to the hospital for thoracolumbar spine revision did have a cardiac arrest requiring resuscitation , patient did have evidence of Enterobacter UTI with secondary bacteremia for which the patient has completed her antibiotic therapy 2patient remains to be afebrile white count normal we'll monitor the patient closely off antibiotic therapy Time with Patient: Less than 30
[2022-03-23] MEDS: ACETAMINOPHEN TAB 500 MG TAB PO SCH ×5 (00:12→23:22)
[2022-03-23] MEDS: DEXAMETHASONE SOD PHOSPHATE 4 MG/ML 1 ML VIAL IVP SCH ×4 (00:13→23:22)
[2022-03-23] MEDS: SODIUM CHLORIDE 0.9% 1,000 ML IV SCH (04:46)
[2022-03-23 06:08] LABS: Glucose,Whole Blood 135 mg/dL (70-110)
[2022-03-23] MEDS: LEVOTHYROXINE 88 MCG TAB PO SCH (06:25)
[2022-03-23] MEDS: INSULIN DETEMIR (LEVEMIR) 100 UNIT/ML SYR SQ SCH (06:25)
--- NOTE | 2022-03-23 08:22 | P.PN ---
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 She is currently resting in bed. She has been raising the HOB on her own. Patient reports she worked with physical therapy yesterday and sat at edge of bed for approximately 10 minutes and performed some leg exercises. She states that she tolerated activity well, it did exhaust her. Encouragement for patient to continue to keep working with PT. She did have a BM this morning. Surgical dressing will be changed later today. She denies any fever/chills or chest pain. Objective - Vital Signs Vital signs: Vital Signs Temp 98.3 F 03/23/22 04:44 Pulse 90 03/23/22 04:44 Resp 16 03/23/22 04:44 BP 115/75 03/23/22 04:44 Pulse Ox 97 03/23/22 04:44 FiO2 35 03/10/22 10:13 Intake & Output 03/22/22 03/23/22 03/23/22 18:59 06:59 18:59 Intake Total 540 240 Output Total 350 700 Balance 190 -460 Intake: IV 200 Sodium Chloride 0.9% 1, 100 000 ml @ 10 mls/hr IV . Q24H [facility] Rx#:[id number] Sodium Ferric Gluconat- 100 Sucrose 125 mg In Sodium Chloride 0.9% 100 ml @ 100 mls/hr IVPB DAILY [facility] Rx#:[id number] Intake, IV Titration 100 Amount Sodium Ferric Gluconat- 100 Sucrose 125 mg In Sodium Chloride 0.9% 100 ml @ 100 mls/hr IVPB DAILY [facility] Rx#:[id number] Oral 240 240 Output: Urine 350 700 Other: Voiding Method Indwelling Catheter Indwelling Catheter # Voids 3 # Bowel Movements 1 ABP, PAP, CO, CI - Last Documented Arterial Blood Pressure 158/70 - Exam PHYSICAL EXAMINATION: General: Awake, alert, appropriate for age, in no acute distress. HEENT: No changes Extremities: Skin warm and dry without no acute lesions, coloration, temperature, skin intact, no tenderness or erythema. Integument: Surgical incisions: Dressings CDI External cath present Palpation: Special findings: pain with palpation of the right breast area with large hematoma noted as well as anterior chest wall. VASCULAR STATUS : Wrist Pulses: [2/4 bilateral radial and ulnar] Pedal Pulses: [2/4 bilateral DP and PT] Color: [Normal] Edema: Improved in arms and hands. NEUROLOGIC EXAMINATION: Mental Status: Awake and alert, oriented,but slow with normal attention, concentration and memory, and fluent, he has slow speech Cranial Nerves: I: Olfactory not tested. II: Visual acuity normal, no visual field deficit noted with confrontation. III,IV: Normal pupillary reflexes & intact extraocular movements without nystagmus. V,: Intact symmetrical facial sensation. VII: Intact symmetrical facial motor movement VIII: Hearing intact. IX,X: Intact gag, swallow, & normal voice. XI: Sternocleidomastoid, trapezius function intact. XII: Tongue midline with normal movements. Special Tests: L'hermitte's Sign: Absent Straight Leg Raising: Absent Bilateral Motor Exam (0-5/5, N/T) STRENGTH 4 out of 5 strength in upper extremity's bilaterally all major muscle groups without focal deficits generalized weakness 3 to 5 strength bilateral lower extremities all major muscle groups with generalized weakness no focal deficits. She is weak in her hip flexors currently. REFLEXES Upper Extremity: RIGHT [2]/4 LEFT [2]/4 Lower Extremity: RIGHT [2]/4 LEFT [2]/4 Pathological Reflexes Warren's: RIGHT [Absent] LEFT [Absent] Babinski: RIGHT [Absent] LEFT [Absent] Clonus: RIGHT [None] LEFT [None] SENSORY Intact Gait and Functional Evaluation: Sit patient at bedside and increase physical activity as tolerated - Labs CBC & Chem 7: 03/22/22 06:40 03/22/22 06:40 Labs: Abnormal Lab Results - Last 24 Hours (Table) 03/22/22 03/22/22 03/22/22 Range/Units 11:36 16:29 20:17 POC Glucose (mg/dL) 204 H 275 H 218 H (70-110) mg/dL 03/23/22 Range/Units 06:06 POC Glucose (mg/dL) 135 H (70-110) mg/dL Assessment and Plan Assessment: 1. 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 Status post 7 units PRBC and 1 pack platelets -bilateral lower extremity weakness, status post multiple controlled falls in- house -Enterobacter sepsis, UTI -status post cardiac arrest Plan: -Appreciate mgmt consultant and team management PCC and medicine -Appreciate cardiothoracic, Gen. surgery, nephrology, ID evaluations -Continue Activity: Sit patient at bedside to perform leg exercises. Encourage to increase physical activity as tolerated. If severe headaches return, lay patient flat in bed. -Recommend titration of cardiac medications per cardio -Cont Abx for duration of stay -Caffiene daily 200 mg daily, Fioricet -Pain control: Adequate today ( Tylenol 1000 mg ME[facility]UL, Oxy IR q4 hrs 10-15 mg titrated to pain (pt been on Rowan for 20 yrs), Cont Gabapentin,) -Meds: reviewed -Trend labs -Transfusions to vitals -GI ppx: senna, Miralax -Cont with FBS -DVT PPX: Xarelto -Hygiene: Maintain dressing clean and dry. Meticulous cleaning after BMs away from incision site patient has had several instances on the floor where she was covered and bowel movement as well as urine up to her shoulders on her back. The wound needs to be kept meticulously clean. -Encourage IS 10x/hr -Will follow
--- NOTE | 2022-03-23 08:47 | P.PN ---
Subjective PROGRESS NOTE The patient is a 71-year-old female who underwent lumbar surgery on February 24 for severe stenosis, mechanical low back pain and neurogenic claudication. She has a known history of atrial flutter, atrial fibrillation. She continues to be in atrial flutter at this time with 2 to one conduction. She had an echocardiogram on February 27 that showed an ejection fraction of 35-40% with moderate mitral regurgitation. In 2018 her LV systolic function was normal. It is unclear if this deterioration is an acute event following her surgery. She feels better overall, has musculoskeletal right-sided discomfort. She is not anticoagulated because of recent bleeding. She denies any nausea or vomiting. Her blood pressure is under good control. She had positive urine culture. March 14: The patient is feeling slightly better today, she denies any chest discomfort or dizziness. She continues to be in atrial flutter with 2 to one conduction. She had episodes of her lower heart rate. She is tolerating her present medical regimen. She has no evidence of ventricular tachycardia. She continues to be in bed, she is allowed to lift her head 30 today. She has no nausea or vomiting. She has no dizziness or palpitations. Her right-sided chest discomfort has improved. Her anticoagulation remains on hold because of her anemia and hematoma. March 15: Patient continues to have soreness but better. She has mild nausea but no significant dyspnea. Her atrial flutter rate is under better control. She denies any chest discomfort, dizziness or palpitations. She continues to be at bedrest. Her blood pressures been stable on the present regimen. March 16: The patient continues to be in atrial flutter with controlled ventricular response. She feels better overall but continues to feel fatigued. She denies any chest discomfort, dizziness or palpitations. She continues to be at bedrest because of a leak. Her urine output is stable. She is not anticoagulated yet per surgical team. Hemodynamically she is stable. March 17: Patient is feeling well overall remains in bed flat, she continues to be in atrial flutter with controlled ventricular response. She has not been anticoagulated per surgical team. She denies any chest discomfort, her breathing is better. She denies any dizziness or palpitations, no nausea. She is tolerating by mouth. She has no fever. March 18: The patient is complaining of left sided respirophasic and muscular chest discomfort. She has some discomfort in her mouth. She continues to be in atrial flutter with controlled ventricular response. She denies any dizziness or palpitations. She continues to be a bedrest. She has no arrhythmia. She has mild nausea. Not anticoagulated yet per surgical team. March 19: She continues to have soreness in her mouth but otherwise denies any chest discomfort, she has some wheezes but does not feel dyspneic. She has good urine output. She continues to be in atrial fibrillation with controlled ventricular response. Anticoagulation has not been initiated yet by the surgical team. Her blood pressure is stable and she is on no vasopressors. She continues to be at bedrest. 03/20 Patient seen and examined. Patient was started on Xarelto last night. Denies any hematochezia or melena. Remains in A. fib with controlled heart rates. Has been having room spinning sensation whenever she turns her head to the right however states this has been going on for 3 weeks. Denies any chest pain or pressure. Does have some right lower quadrant abdominal pain. Denies any shortness breath. Is receiving Lasix IV 40 mg daily. Sodium remains low at 132. 03/21 Patient seen and examined. Patient did have borderline blood pressures 90s over 50s and therefore her metoprolol, Diamox, spironolactone was held this morning. She has noted a feeling of more fluttering and heart pounding or last hour and heart rates are mildly elevated up in the 100-110 range in atrial fibrillation. Denies any chest pain or pressure. 03/22 Patient seen and examined. Patient was having some feeling of fluttering sensation yesterday when metoprolol had been held however feeling better today with rare instances of feeling of fluttering. Main issue is back pain which she believes is related to lying on her back for this long. Does help somewhat with pain medications. Heart rates have been better controlled yesterday however one pack in the atrial flutter with RVR with heart rate 120s this morning. Has not had much of an appetite and not eating much. Sodium 130. BUN 32 and creatinine 0.5 03/23 Patient seen and examined. She states the PHYSICAL EXAMINATION: Vitals reviewed LUNGS: Scattered wheezes HEART: Irregular rate and rhythm, , S1, S2. No S3. No systolic murmur ABDOMEN: Soft, nontender, no organomegaly, obese EXTREMETIES: Trace to +1 edema IMPRESSION: 1. Status post back surgery 2. Typical atrial flutter 3. Anemia, stable 4. Cardiomyopathy of unknown etiology, no evidence of acute CHF at this time 5. Bacteremia 6. Acute renal injury resolved 7. Morbid obesity 8. Hyperlipidemia 9. Hypertension, controlled 10. Room spinning sensation for 3 weeks, likely vertigo PLAN: Remains on amiodarone 200 mg twice a day and metoprolol was increased to 75 mg 3 times a day. HR's appear somewhat better controlled with mild elevations appearing to relate with pain. Continue current therapy. Objective - Vital Signs Vital signs: Vital Signs Temp 98.3 F 03/23/22 04:44 Pulse 90 03/23/22 04:44 Resp 16 03/23/22 04:44 BP 115/75 03/23/22 04:44 Pulse Ox 97 03/23/22 04:44 FiO2 35 03/10/22 10:13 Intake & Output 03/22/22 03/23/22 03/23/22 18:59 06:59 18:59 Intake Total 540 240 Output Total 350 700 Balance 190 -460 Intake: IV 200 Sodium Chloride 0.9% 1, 100 000 ml @ 10 mls/hr IV . Q24H [facility] Rx#:[id number] Sodium Ferric Gluconat- 100 Sucrose 125 mg In Sodium Chloride 0.9% 100 ml @ 100 mls/hr IVPB DAILY [facility] Rx#:[id number] Intake, IV Titration 100 Amount Sodium Ferric Gluconat- 100 Sucrose 125 mg In Sodium Chloride 0.9% 100 ml @ 100 mls/hr IVPB DAILY [facility] Rx#:[id number] Oral 240 240 Output: Urine 350 700 Other: Voiding Method Indwelling Catheter Indwelling Catheter # Voids 3 # Bowel Movements 1 ABP, PAP, CO, CI - Last Documented Arterial Blood Pressure 158/70 - Labs CBC & Chem 7: 03/22/22 06:40 03/22/22 06:40 Labs: Abnormal Lab Results - Last 24 Hours (Table) 03/22/22 03/22/22 03/22/22 Range/Units 11:36 16:29 20:17 POC Glucose (mg/dL) 204 H 275 H 218 H (70-110) mg/dL 03/23/22 Range/Units 06:06 POC Glucose (mg/dL) 135 H (70-110) mg/dL
[2022-03-23 08:58] LABS: Anisocytosis Slight; HGB 12.5 gm/dL (11.4-16.0); MCH 30.3 pg (25.0-35.0); MCHC 32.8 g/dL (31.0-37.0); MCV 92.4 fL (80.0-100.0); Mean Platelet Volume 11.6; Platelet Count 124 k/uL (150-450); Poikilocytosis Slight; RBC 4.12 m/uL (3.80-5.40); RDW 18.7 % (11.5-15.5); WBC 9.6 k/uL (3.8-10.6)
[2022-03-23] MEDS: INSULIN ASPART (NovoLOG) 100 UNIT/ML VIAL SQ SCH ×4 (09:12→20:52)
[2022-03-23 09:15] LABS: African American GFR (CKD) >90 (>60 ml/min/1.73 sqM); Anion Gap 9 mmol/L; Blood Urea Nitrogen 36 mg/dL (7-17); Calcium 8.3 mg/dL (8.4-10.2); Carbon Dioxide 19 mmol/L (22-30); Chloride 102 mmol/L (98-107); Glucose 160 mg/dL (74-99); Magnesium 2.1 mg/dL (1.6-2.3); Non-African American GFR(CKD) >90 (>60 ml/min/1.73 sqM); Sodium 130 mmol/L (137-145)
[2022-03-23] MEDS: METOPROLOL TARTRATE 50 MG TAB PO SCH ×3 (09:22→20:52)
[2022-03-23] MEDS: CYCLOBENZAPRINE 10 MG TAB PO PRN ×2 (09:23→20:51)
[2022-03-23] MEDS: SPIRONOLACTONE 25 MG TAB PO SCH (09:24)
[2022-03-23] MEDS: PANTOPRAZOLE 40 MG/10 ML VIAL IVP SCH (09:24)
[2022-03-23] MEDS: ATORVASTATIN 10 MG TAB PO SCH (09:24)
[2022-03-23] MEDS: FUROSEMIDE 10 MG/ML 4 ML VIAL IV SCH (09:24)
[2022-03-23] MEDS: AMIODARONE 200 MG TAB PO SCH ×2 (09:24→20:52)
[2022-03-23] MEDS: DULoxetine HCL 60 MG CAPSULE.DR PO SCH (09:24)
[2022-03-23] MEDS: GABAPENTIN 400 MG CAP PO SCH ×3 (09:24→20:52)
[2022-03-23] MEDS: lisinopriL 5 MG TAB PO SCH (09:24)
[2022-03-23] MEDS: CAFFEINE-SODIUM BENZOATE 500 MG in SODIUM CHLORIDE 0.9% 100 ML IVPB SCH (09:25)
[2022-03-23] MEDS: SODIUM FERRIC GLUCONAT-SUCROSE 125 MG in SODIUM CHLORIDE 0.9% 100 ML IVPB SCH (09:25)
[2022-03-23] MEDS: MAG HYDROX/AL HYDROX/SIMETH 30 ML, diphenhydrAMINE ELIXIR 75 MG, LIDOCAINE VISCOUS 2% 3... PO SCH ×9 (09:26→20:53)
--- NOTE | 2022-03-23 11:17 | P.PN ---
Subjective Progress Note Date: 03/23/22 Patient is a 71 yo CF with a hx of A fib s/p ablation, GERD, hypertension, dyslipidemia, and right diaphragmatic paralysis who presented for T10 to Pelvis decompression and fusion with revision. Blood loss and the case was approximately 1900 mL. During her operative course she required phenylephrine IV infusion, Vasopressin IVP. She also received TXA gtt. She received 7 L of lactated Ringer's. She received 1 amp of sodium bicarb intaop. She also received albumin. Her operative course was complicated with a cardiac arrest. During the case she developed A. fib with RVR and then quickly transitioned into bradycardia with a low end-tidal CO2. She received 0.4 of atropine and CPR was started. She received epinephrine 0.5. She achieved ROSC. Total down time was less than 5 minutes. She was extubated on 02/25. She continued to do well with struggled with pain. She was downgraded from ICU on 03/03. She was evaluated by PMR, awaiting inpatient rehab. On 03/07, patient was noted to be hypotensive with elevated WBC count of 42.3, with worsening renal function and hyperkalamia. Patient was treated with NS bolus, IV insulin/D50, Albuterol and sodium bicarbonate. She was transferred back to the ICU for septic shock requiring Levophed. Started on Vancomycin and Cefepime, blood and urine cultures were positive for Enterobacter. ID was consulted and she was continued on Cefepime while Vancomycin was discontinued. Levophed was able to be weaned off. Her hemoglobin continued to drop, she requ ired a total of [address] AP was ordered which showed a large right chest hematoma and dilated small bowel concerning for ileus. CT surgery was consulted and recommended conservative management for chest hematoma. NG tube was inserted and patient undewent EGD. EGD showed mild gastritis and esophagitis, she was continued to Protonix. Patient underwent irrigation of debridement of the thoracolumbar and pelvic skin, soft tissue, muscle, bone and spine along with dural repair with patch graft L1 on 03/09. Her hyponatremia and BETHANY resolved with IV hydration. She was started on Lasix IV for volume overload during fluid resuscitation for sepsis. 03/21 Patient was seen and examined. No acute events overnight. Patient reports vertigo like symptoms have resolved. CT head was performed yesterday and was negative for acute findings. She reports palpitations and a pounding sensation in her chest. She also reports shortness of breath, though improved. BP low this morning 90s/30s which has improved on recheck. 03/22 Patient was seen and examined. No acute events overnight. Patient reports improvement in palpitations. She reports lower back pain and radiculopathy. Pain is spastic in nature, 10 out of 10 in severity. Cleared by orthopedic surgery to get out of bed She'll be working with PT today. 03/23 Patient was seen and examined. No acute events overnight. Able to sit up on the side of the bed with PT and OT yesterday. Pain is 5/10 in severity today. She has no other complaints. General: ill appearing, mild distress due to pain, appears at stated age, lethargic Derm: warm, dry Head: atraumatic, normocephalic, symmetric Eyes: EOMI, no lid lag, anicteric sclera Mouth: no lip lesion, dry membranes moist Cardiovascular: S1S2 irregular, no murmur Lungs: Decreased BS bilateral, rales noted at the bases, no accessory muscle use Ext: no gross muscle atrophy, 1+ LE edema, no contractures Abd: External catheter in place. Obese. Non tender to palpation. Neuro: Moving all 4 extremities independently, sensation intact to touch BL LE Psych: Alert, oriented, appropriate affect #Septic shock, Enterobacter cloacae bacteremia #Enterobacter cloacae bacteremia with likly source UTI #Enterobacter cloacae UTI #Lactic acidosis Currently off mechanical ventilation and pressors. Complete a course of cefepime. Blood cultures + Enterobacter cloacae. Urine culture + Enterobacter cloacae. Telemetry monitoring. Infectious disease and Pulmonology/ICU on board. #Acute on Chronic Systolic CHF Echo shows EF 35-40% with severe pulmonary HTN, moderate MR. Patient will need ischemic workup. Patient started on ACEi and Aldactone (held this morning due to hypotension) Lasix IV discontinued. Strict intake and outtake. Cardiology on board. #Prerenal azotemia #Hyponatremia, hypervolemic Na 130, BUN 32 Renal US shows on hydronephrosis on the R, enlarged cyst in the L kidney measuring up to 8.3 cm. BETHANY likely due to ATN from septic shock and hypoNa from poor oral intake. Lasix IV discontinued. Nephrology on board. #Hyperglycemia likely secondary to steroids No official DM diagnosis Levemir 20 units daily. Sliding scale. A1c is 6, likely prediabetic, will benefit from metformin upon discharge. #Acute blood loss anemia #Right breast hematoma #GI bleed, concern for ischemic bowel s/p 7 unit PRBC. EGD showed mild gastritis and mild esophagitis with no active bleeding. Restart Xarelto. CT surgery recommends conservative managment of hematoma. Monitor hemoglobin. Continue Ferrlecit. Transfuse if Hg < 7. #Transaminitis Obstructive LFTs. Likely ischemic hepatitis. Improved. #Atrial fibrillation Restarted on Xarelto. Continue Amiodarone, Metoprolol. Cardiology on board. #Abdominal pain #IIeus versus SBO Advance diet as tolerated. General surgery on board. #T10 to pelvis decompression with fusion #Post-op pain Management per Orthopedic surgery. Gabapentin, Valium, Flexeril. Decadron. Continue with Dilaudid and Percocet PRN. Patient has no stairs and planning on going home, she has nearby help from family but lives alone. Patient currently on bed rest. Awaiting for orthopedic surgery to clear patient for PT OT PT and OT consulted. PMR consulted. #Right diaphragmatic paralysis Aggressive pulmonary hygiene. Pulmonology on board. #HLD Statin. #HTN Cotinue Metoprolol. Lisinopril, Aldactone held due to hypotension today. Monitor vitals and adjust medication if necessary. Resolved: Hyperkalemia, Aborted cardiac arrest Objective - Vital Signs Vital signs: Vital Signs Temp 98 F 03/23/22 08:00 Pulse 119 H 03/23/22 08:00 Resp 16 03/23/22 08:00 BP 134/81 03/23/22 08:00 Pulse Ox 99 03/23/22 08:00 FiO2 35 03/10/22 10:13 Intake & Output 03/22/22 03/23/22 03/23/22 18:59 06:59 18:59 Intake Total 540 240 Output Total 350 700 Balance 190 -460 Intake: IV 200 Sodium Chloride 0.9% 1, 100 000 ml @ 10 mls/hr IV . Q24H [facility] Rx#:[id number] Sodium Ferric Gluconat- 100 Sucrose 125 mg In Sodium Chloride 0.9% 100 ml @ 100 mls/hr IVPB DAILY [facility] Rx#:[id number] Intake, IV Titration 100 Amount Sodium Ferric Gluconat- 100 Sucrose 125 mg In Sodium Chloride 0.9% 100 ml @ 100 mls/hr IVPB DAILY [facility] Rx#:[id number] Oral 240 240 Output: Urine 350 700 Other: Voiding Method Indwelling Catheter Indwelling Catheter # Voids 3 # Bowel Movements 1 ABP, PAP, CO, CI - Last Documented Arterial Blood Pressure 158/70 - Labs CBC & Chem 7: 03/23/22 08:08 03/23/22 08:11 Labs: Abnormal Lab Results - Last 24 Hours (Table) 03/22/22 03/22/22 03/22/22 Range/Units 11:36 16:29 20:17 RDW (11.5-15.5) % Plt Count (150-450) k/uL Sodium (137-145) mmol/L Carbon Dioxide (22-30) mmol/L BUN (7-17) mg/dL Glucose (74-99) mg/dL POC Glucose (mg/dL) 204 H 275 H 218 H (70-110) mg/dL Calcium (8.4-10.2) mg/dL 03/23/22 03/23/22 03/23/22 Range/Units 06:06 08:08 08:11 RDW 18.7 H (11.5-15.5) % Plt Count 124 L (150-450) k/uL Sodium 130 L (137-145) mmol/L Carbon Dioxide 19 L (22-30) mmol/L BUN 36 H (7-17) mg/dL Glucose 160 H (74-99) mg/dL POC Glucose (mg/dL) 135 H (70-110) mg/dL Calcium 8.3 L (8.4-10.2) mg/dL
[2022-03-23 11:50] LABS: Glucose,Whole Blood 151 mg/dL (70-110)
--- NOTE | 2022-03-23 12:00 | P.PN ---
Progress Note - Text Progress Note Date: 03/23/22 Patient resting in bed. Assisted patient to lay on her right side. Surgical dressing removed at this time to allow air to get to incision. No dressing at this time.
--- NOTE | 2022-03-23 12:27 | P.PN ---
Subjective Progress Note Date: 03/23/22 Principal diagnosis: UTI and bacteremia Patient is a 71-year-old female with a past medical history difficult for atrial fibrillation flutter hypertension hyperlipidemia hypothyroidism right breast cancer electively admitted to the hospital more than 2 weeks ago 022 for T10 to lumbar spine revision decompression and posterior lateral interbody fusion, patient did have a episode of hypotension and elevated white count requiring admission to the ICU patient did have a positive UA and gram- negative bacteremia and is scheduled for exploration of the thoracolumbar incision completed on 03/09/2022 with apparently no evidence of any abscess On today's evaluation that is 03/23/2022 the patient remains to be afebrile , the patient is breathing comfortably on room air, the patient denies any cough or sputum production, no nausea no vomiting no abdominal pain and no diarrhea back pain is currently controlled Objective - Vital Signs Vital signs: Vital Signs Temp 98 F 03/23/22 08:00 Pulse 119 H 03/23/22 08:00 Resp 16 03/23/22 08:00 BP 134/81 03/23/22 08:00 Pulse Ox 99 03/23/22 08:00 FiO2 35 03/10/22 10:13 Intake & Output 03/22/22 03/23/22 03/23/22 18:59 06:59 18:59 Intake Total 540 240 Output Total 350 700 5 Balance 190 -460 -5 Intake: IV 200 Sodium Chloride 0.9% 1, 100 000 ml @ 10 mls/hr IV . Q24H [facility] Rx#:[id number] Sodium Ferric Gluconat- 100 Sucrose 125 mg In Sodium Chloride 0.9% 100 ml @ 100 mls/hr IVPB DAILY [facility] Rx#:[id number] Intake, IV Titration 100 Amount Sodium Ferric Gluconat- 100 Sucrose 125 mg In Sodium Chloride 0.9% 100 ml @ 100 mls/hr IVPB DAILY [facility] Rx#:[id number] Oral 240 240 Output: Urine 350 700 Stool 5 Other: Voiding Method Indwelling Catheter Indwelling Catheter # Voids 3 # Bowel Movements 1 ABP, PAP, CO, CI - Last Documented Arterial Blood Pressure 158/70 - Exam GENERAL DESCRIPTION: An elderly female lying in bed in no distress RESPIRATORY SYSTEM: Unlabored breathing , decreased breath sounds at bases HEART: S1 S2 regular rate and rhythm , ABDOMEN: Soft , no tenderness Thoracolumbar spine incision stitches are intact there is no drainage or redness EXTREMITIES: Diffuse swelling bilateral lower extremity - Labs CBC & Chem 7: 03/23/22 08:08 03/23/22 08:11 Labs: Abnormal Lab Results - Last 24 Hours (Table) 03/22/22 03/22/22 03/23/22 Range/Units 16:29 20:17 06:06 RDW (11.5-15.5) % Plt Count (150-450) k/uL Sodium (137-145) mmol/L Carbon Dioxide (22-30) mmol/L BUN (7-17) mg/dL Glucose (74-99) mg/dL POC Glucose (mg/dL) 275 H 218 H 135 H (70-110) mg/dL Calcium (8.4-10.2) mg/dL 03/23/22 03/23/22 03/23/22 Range/Units 08:08 08:11 11:48 RDW 18.7 H (11.5-15.5) % Plt Count 124 L (150-450) k/uL Sodium 130 L (137-145) mmol/L Carbon Dioxide 19 L (22-30) mmol/L BUN 36 H (7-17) mg/dL Glucose 160 H (74-99) mg/dL POC Glucose (mg/dL) 151 H (70-110) mg/dL Calcium 8.3 L (8.4-10.2) mg/dL Assessment and Plan (1) Gram-negative bacteremia Current Visit: Yes Status: Acute Code(s): R78.81 - BACTEREMIA SNOMED Code(s): 166152936317 Plan: 1patient with SIRS/sepsis in this patient who has been in the hospital for 2 weeks with elective admission to the hospital for thoracolumbar spine revision did have a cardiac arrest requiring resuscitation , patient did have evidence of Enterobacter UTI with secondary bacteremia for which the patient has completed her antibiotic therapy 2patient has been afebrile and white count remains to be normal back incision is intact with no drainage will monitor the patient closely off antibiotic therapy at this point Time with Patient: Less than 30
[2022-03-23 16:44] LABS: Glucose,Whole Blood 312 mg/dL (70-110)
[2022-03-23 20:15] LABS: Glucose,Whole Blood 294 mg/dL (70-110)
[2022-03-24 06:15] LABS: Glucose,Whole Blood 143 mg/dL (70-110)
[2022-03-24] MEDS: INSULIN ASPART (NovoLOG) 100 UNIT/ML VIAL SQ SCH ×4 (06:57→21:03)
[2022-03-24] MEDS: LEVOTHYROXINE 88 MCG TAB PO SCH (06:59)
[2022-03-24] MEDS: ACETAMINOPHEN TAB 500 MG TAB PO SCH ×4 (06:59→23:10)
[2022-03-24] MEDS: INSULIN DETEMIR (LEVEMIR) 100 UNIT/ML SYR SQ SCH (06:59)
[2022-03-24] MEDS: SODIUM CHLORIDE 0.9% 1,000 ML IV SCH (07:00)
--- NOTE | 2022-03-24 07:12 | P.PN ---
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 She is currently resting in bed. Surgical dressing is CDI. When patient is laying in bed on her side, please remove dressing to allow air to surgical incision. Incision is well ap proximated, no drainage. Patient reports that she was able to tolerate sitting edge of bed for approximately 15 minutes yesterday. Patient is looking forward to be able to sit up in chair. Encouragement for patient to continue to keep working with PT. She denies any fever/chills or chest pain. Objective - Vital Signs Vital signs: Vital Signs Temp 98.1 F 03/24/22 03:50 Pulse 100 03/24/22 03:50 Resp 16 03/24/22 03:50 BP 112/80 03/24/22 03:50 Pulse Ox 94 L 03/24/22 03:50 FiO2 35 03/10/22 10:13 Intake & Output 03/23/22 03/24/22 03/24/22 18:59 06:59 18:59 Intake Total 180 Output Total 707 150 Balance -527 -150 Intake: Oral 180 Output: Urine 700 150 Stool 7 Other: Voiding Method Indwelling Catheter External Catheter # Bowel Movements 1 ABP, PAP, CO, CI - Last Documented Arterial Blood Pressure 158/70 - Exam PHYSICAL EXAMINATION: General: Awake, alert, appropriate for age, in no acute distress. HEENT: No changes Extremities: Skin warm and dry without no acute lesions, coloration, temperature, skin intact, no tenderness or erythema. Integument: Surgical incisions: Dressings CDI External cath present Palpation: Special findings: pain with palpation of the right breast area with large hematoma noted as well as anterior chest wall. VASCULAR STATUS : Wrist Pulses: [2/4 bilateral radial and ulnar] Pedal Pulses: [2/4 bilateral DP and PT] Color: [Normal] Edema: Improved in arms and hands. NEUROLOGIC EXAMINATION: Mental Status: Awake and alert, oriented,but slow with normal attention, concentration and memory, and fluent, he has slow speech Cranial Nerves: I: Olfactory not tested. II: Visual acuity normal, no visual field deficit noted with confrontation. III,IV: Normal pupillary reflexes & intact extraocular movements without nystagmus. V,: Intact symmetrical facial sensation. VII: Intact symmetrical facial motor movement VIII: Hearing intact. IX,X: Intact gag, swallow, & normal voice. XI: Sternocleidomastoid, trapezius function intact. XII: Tongue midline with normal movements. Special Tests: L'hermitte's Sign: Absent Straight Leg Raising: Absent Bilateral Motor Exam (0-5/5, N/T) STRENGTH 4 out of 5 strength in upper extremity's bilaterally all major muscle groups without focal deficits generalized weakness 3 to 5 strength bilateral lower extremities all major muscle groups with gener alized weakness no focal deficits. She is weak in her hip flexors currently. REFLEXES Upper Extremity: RIGHT [2]/4 LEFT [2]/4 Lower Extremity: RIGHT [2]/4 LEFT [2]/4 Pathological Reflexes Warren's: RIGHT [Absent] LEFT [Absent] Babinski: RIGHT [Absent] LEFT [Absent] Clonus: RIGHT [None] LEFT [None] SENSORY Intact Gait and Functional Evaluation: Sit patient at bedside and increase physical activity as tolerated - Labs CBC & Chem 7: 03/23/22 08:08 03/23/22 08:11 Labs: Abnormal Lab Results - Last 24 Hours (Table) 03/23/22 03/23/22 03/23/22 Range/Units 08:08 08:11 11:48 RDW 18.7 H (11.5-15.5) % Plt Count 124 L (150-450) k/uL Sodium 130 L (137-145) mmol/L Carbon Dioxide 19 L (22-30) mmol/L BUN 36 H (7-17) mg/dL Glucose 160 H (74-99) mg/dL POC Glucose (mg/dL) 151 H (70-110) mg/dL Calcium 8.3 L (8.4-10.2) mg/dL 03/23/22 03/23/22 03/24/22 Range/Units 16:43 20:11 06:13 RDW (11.5-15.5) % Plt Count (150-450) k/uL Sodium (137-145) mmol/L Carbon Dioxide (22-30) mmol/L BUN (7-17) mg/dL Glucose (74-99) mg/dL POC Glucose (mg/dL) 312 H 294 H 143 H (70-110) mg/dL Calcium (8.4-10.2) mg/dL Assessment and Plan Assessment: 1. 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 Status post 7 units PRBC and 1 pack platelets -bilateral lower extremity weakness, status post multiple controlled falls in- house -Enterobacter sepsis, UTI -status post cardiac arrest Plan: -Appreciate internet sales consultant and team management PCC and medicine -Appreciate cardiothoracic, Gen. surgery, nephrology, ID evaluations -Continue Activity: Sit patient at bedside to perform leg exercises. Encourage to increase physical activity as tolerated. If severe headaches return, lay patient flat in bed. -Recommend titration of cardiac medications per cardio -Cont Abx for duration of stay -Caffiene daily 200 mg daily, Fioricet -Pain control: Adequate today ( Tylenol 1000 mg MEHUL, Oxy IR q4 hrs 10-15 mg titrated to pain (pt been on [place] for 20 yrs), Cont Gabapentin,) -Meds: reviewed -Trend labs -Transfusions to vitals -GI ppx: senna, Miralax -Cont with FBS -DVT PPX: Xarelto -Hygiene: Maintain dressing clean and dry. Please remove dressing when patient is laying on her side, to allow air to incision. Meticulous cleaning after BMs away from incision site The wound needs to be kept meticulously clean. -Encourage IS 10x/hr -Will follow
[2022-03-24 08:03] LABS: Anisocytosis Slight; HCT 36.2 % (34.0-46.0); HGB 11.9 gm/dL (11.4-16.0); Hypochromasia Slight; Macrocytosis Slight; Mean Platelet Volume 10.1; Poikilocytosis Slight; RBC 3.85 m/uL (3.80-5.40); RDW 18.7 % (11.5-15.5); WBC 13.9 k/uL (3.8-10.6)
[2022-03-24 08:10] LABS: Platelet Count 193 k/uL (150-450)
[2022-03-24 08:13] LABS: African American GFR (CKD) >90 (>60 ml/min/1.73 sqM); Anion Gap 8 mmol/L; Blood Urea Nitrogen 43 mg/dL (7-17); Carbon Dioxide 20 mmol/L (22-30); Chloride 100 mmol/L (98-107); Glucose 129 mg/dL (74-99); Non-African American GFR(CKD) 90 (>60 ml/min/1.73 sqM); Potassium 4.8 mmol/L (3.5-5.1); Sodium 128 mmol/L (137-145)
[2022-03-24] MEDS: lisinopriL 5 MG TAB PO SCH (09:55)
[2022-03-24] MEDS: SODIUM FERRIC GLUCONAT-SUCROSE 125 MG in SODIUM CHLORIDE 0.9% 100 ML IVPB SCH (09:55)
[2022-03-24] MEDS: DEXAMETHASONE SOD PHOSPHATE 4 MG/ML 1 ML VIAL IVP SCH ×3 (09:55→23:09)
[2022-03-24] MEDS: GABAPENTIN 400 MG CAP PO SCH ×3 (09:55→21:03)
[2022-03-24] MEDS: PANTOPRAZOLE 40 MG/10 ML VIAL IVP SCH (09:55)
[2022-03-24] MEDS: AMIODARONE 200 MG TAB PO SCH (09:56)
[2022-03-24] MEDS: SPIRONOLACTONE 25 MG TAB PO SCH (09:56)
[2022-03-24] MEDS: ATORVASTATIN 10 MG TAB PO SCH (09:56)
[2022-03-24] MEDS: METOPROLOL TARTRATE 50 MG TAB PO SCH (09:56)
[2022-03-24] MEDS: DULoxetine HCL 60 MG CAPSULE.DR PO SCH (09:56)
--- NOTE | 2022-03-24 10:49 | P.PN ---
Progress Note - Text Progress Note Date: 03/24/22 Patient resting in bed, laying on her right side. Top portion of her surgical incision is well healed, instructed RN that she may remove the top portion of sutures. Leave remaining sutures for now. Patient is to be assisted to sit at bedside at least x4/daily. She needs to progress to sitting at bedside for at least 30 min before she is able to transfer to chair.
--- NOTE | 2022-03-24 11:47 | P.PN ---
Subjective PROGRESS NOTE The patient is a 71-year-old female who underwent lumbar surgery on February 24 for severe stenosis, mechanical low back pain and neurogenic claudication. She has a known history of atrial flutter, atrial fibrillation. She continues to be in atrial flutter at this time with 2 to one conduction. She had an echocardiogram on February 27 that showed an ejection fraction of 35-40% with moderate mitral regurgitation. In 2018 her LV systolic function was normal. It is unclear if this deterioration is an acute event following her surgery. She feels better overall, has musculoskeletal right-sided discomfort. She is not anticoagulated because of recent bleeding. She denies any nausea or vomiting. Her blood pressure is under good control. She had positive urine culture. March 14: The patient is feeling slightly better today, she denies any chest discomfort or dizziness. She continues to be in atrial flutter with 2 to one conduction. She had episodes of her lower heart rate. She is tolerating her present medical regimen. She has no evidence of ventricular tachycardia. She continues to be in bed, she is allowed to lift her head 30 today. She has no nausea or vomiting. She has no dizziness or palpitations. Her right-sided chest discomfort has improved. Her anticoagulation remains on hold because of her anemia and hematoma. March 15: Patient continues to have soreness but better. She has mild nausea but no significant dyspnea. Her atrial flutter rate is under better control. She denies any chest discomfort, dizziness or palpitations. She continues to be at bedrest. Her blood pressures been stable on the present regimen. March 16: The patient continues to be in atrial flutter with controlled ventricular response. She feels better overall but continues to feel fatigued. She denies any chest discomfort, dizziness or palpitations. She continues to be at bedrest because of a leak. Her urine output is stable. She is not anticoagulated yet per surgical team. Hemodynamically she is stable. March 17: Patient is feeling well overall remains in bed flat, she continues to be in atrial flutter with controlled ventricular response. She has not been anticoagulated per surgical team. She denies any chest discomfort, her breathing is better. She denies any dizziness or palpitations, no nausea. She is tolerating by mouth. She has no fever. March 18: The patient is complaining of left sided respirophasic and muscular chest discomfort. She has some discomfort in her mouth. She continues to be in atrial flutter with controlled ventricular response. She denies any dizziness or palpitations. She continues to be a bedrest. She has no arrhythmia. She has mild nausea. Not anticoagulated yet per surgical team. March 19: She continues to have soreness in her mouth but otherwise denies any chest discomfort, she has some wheezes but does not feel dyspneic. She has good urine output. She continues to be in atrial fibrillation with controlled ventricular response. Anticoagulation has not been initiated yet by the surgical team. Her blood pressure is stable and she is on no vasopressors. She continues to be at bedrest. 03/20 Patient seen and examined. Patient was started on Xarelto last night. Denies any hematochezia or melena. Remains in A. fib with controlled heart rates. Has been having room spinning sensation whenever she turns her head to the right however states this has been going on for 3 weeks. Denies any chest pain or pressure. Does have some right lower quadrant abdominal pain. Denies any shortness breath. Is receiving Lasix IV 40 mg daily. Sodium remains low at 132. 03/21 Patient seen and examined. Patient did have borderline blood pressures 90s over 50s and therefore her metoprolol, Diamox, spironolactone was held this morning. She has noted a feeling of more fluttering and heart pounding or last hour and heart rates are mildly elevated up in the 100-110 range in atrial fibrillation. Denies any chest pain or pressure. 03/22 Patient seen and examined. Patient was having some feeling of fluttering sensation yesterday when metoprolol had been held however feeling better today with rare instances of feeling of fluttering. Main issue is back pain which she believes is related to lying on her back for this long. Does help somewhat with pain medications. Heart rates have been better controlled yesterday however one pack in the atrial flutter with RVR with heart rate 120s this morning. Has not had much of an appetite and not eating much. Sodium 130. BUN 32 and creatinine 0.5 03/24 Patient seen and examined. Patient sitting up in a chair for the first time. Denies any chest pain or pressure. Still does have some back pain. Heart rates mainly in the 80s and 90s however appears when the Toprol tartrate runs off back up in the 110s and 120s. We will switch metoprolol tartrate to succinate. PHYSICAL EXAMINATION: Vitals reviewed LUNGS: Scattered wheezes HEART: Irregular rate and rhythm, , S1, S2. No S3. No systolic murmur ABDOMEN: Soft, nontender, no organomegaly, obese EXTREMETIES: Trace to +1 edema IMPRESSION: 1. Status post back surgery 2. Typical atrial flutter 3. Anemia, stable 4. Cardiomyopathy of unknown etiology, no evidence of acute CHF at this time 5. Bacteremia 6. Acute renal injury resolved 7. Morbid obesity 8. Hyperlipidemia 9. Hypertension, controlled 10. Room spinning sensation for 3 weeks, likely vertigo PLAN: Continue amiodarone. Change the Toprol tartrate to succinate given majority of breakthrough tachycardia appears related to metoprolol wearing off. Otherwise no further recommendations. Please call with questions. Objective - Vital Signs Vital signs: Vital Signs Temp 98.1 F 03/24/22 09:53 Pulse 65 03/24/22 09:53 Resp 16 03/24/22 09:53 BP 83/55 03/24/22 09:53 Pulse Ox 94 L 03/24/22 09:53 FiO2 35 03/10/22 10:13 Intake & Output 03/23/22 03/24/22 03/24/22 18:59 06:59 18:59 Intake Total 180 200 Output Total 707 150 Balance -527 50 Intake: Oral 180 200 Output: Urine 700 150 Stool 7 Other: Voiding Method Indwelling Catheter External Catheter External Catheter # Voids 2 # Bowel Movements 1 1 ABP, PAP, CO, CI - Last Documented Arterial Blood Pressure 158/70 - Labs CBC & Chem 7: 03/24/22 07:21 03/24/22 07:21 Labs: Abnormal Lab Results - Last 24 Hours (Table) 03/23/22 03/23/22 03/23/22 Range/Units 11:48 16:43 20:11 WBC (3.8-10.6) k/uL RDW (11.5-15.5) % Sodium (137-145) mmol/L Carbon Dioxide (22-30) mmol/L BUN (7-17) mg/dL Glucose (74-99) mg/dL POC Glucose (mg/dL) 151 H 312 H 294 H (70-110) mg/dL Calcium (8.4-10.2) mg/dL 03/24/22 03/24/22 03/24/22 Range/Units 06:13 07:21 07:21 WBC 13.9 H (3.8-10.6) k/uL RDW 18.7 H (11.5-15.5) % Sodium 128 L (137-145) mmol/L Carbon Dioxide 20 L (22-30) mmol/L BUN 43 H (7-17) mg/dL Glucose 129 H (74-99) mg/dL POC Glucose (mg/dL) 143 H (70-110) mg/dL Calcium 8.0 L (8.4-10.2) mg/dL
[2022-03-24 11:55] LABS: Glucose,Whole Blood 139 mg/dL (70-110)
[2022-03-24] MEDS: METOPROLOL SUCCINATE (ER) 25 MG TAB.ER.24H PO SCH ×2 (12:40→21:03)
[2022-03-24] MEDS: CAFFEINE-SODIUM BENZOATE 500 MG in SODIUM CHLORIDE 0.9% 100 ML IVPB SCH (13:17)
--- NOTE | 2022-03-24 13:20 | P.PN ---
Subjective Progress Note Date: 03/24/22 Patient is a 71 yo CF with a hx of A fib s/p ablation, GERD, hypertension, dyslipidemia, and right diaphragmatic paralysis who presented for T10 to Pelvis decompression and fusion with revision. Blood loss and the case was approximately 1900 mL. During her operative course she required phenylephrine IV infusion, Vasopressin IVP. She also received TXA gtt. She received 7 L of lactated Ringer's. She received 1 amp of sodium bicarb intaop. She also received albumin. Her operative course was complicated with a cardiac arrest. During the case she developed A. fib with RVR and then quickly transitioned into bradycardia with a low end-tidal CO2. She received 0.4 of atropine and CPR was started. She received epinephrine 0.5. She achieved ROSC. Total down time was less than 5 minutes. She was extubated on 02/25. She continued to do well with struggled with pain. She was downgraded from ICU on 03/03. She was evaluated by PMR, awaiting inpatient rehab. On 03/07, patient was noted to be hypotensive with elevated WBC count of 42.3, with worsening renal function and hyperkalamia. Patient was treated with NS bolus, IV insulin/D50, Albuterol and sodium bicarbonate. She was transferred back to the ICU for septic shock requiring Levophed. Started on Vancomycin and Cefepime, blood and urine cultures were positive for Enterobacter. ID was consulted and she was continued on Cefepime while Vancomycin was discontinued. Levophed was able to be weaned off. Her hemoglobin continued to drop, she requ ired a total of [address] AP was ordered which showed a large right chest hematoma and dilated small bowel concerning for ileus. CT surgery was consulted and recommended conservative management for chest hematoma. NG tube was inserted and patient undewent EGD. EGD showed mild gastritis and esophagitis, she was continued to Protonix. Patient underwent irrigation of debridement of the thoracolumbar and pelvic skin, soft tissue, muscle, bone and spine along with dural repair with patch graft L1 on 03/09. Her hyponatremia and BETHANY resolved with IV hydration. She was started on Lasix IV for volume overload during fluid resuscitation for sepsis. 03/21 Patient was seen and examined. No acute events overnight. Patient reports vertigo like symptoms have resolved. CT head was performed yesterday and was negative for acute findings. She reports palpitations and a pounding sensation in her chest. She also reports shortness of breath, though improved. BP low this morning 90s/30s which has improved on recheck. 03/22 Patient was seen and examined. No acute events overnight. Patient reports improvement in palpitations. She reports lower back pain and radiculopathy. Pain is spastic in nature, 10 out of 10 in severity. Cleared by orthopedic surgery to get out of bed She'll be working with PT today. 03/23 Patient was seen and examined. No acute events overnight. Able to sit up on the side of the bed with PT and OT yesterday. Pain is 5/10 in severity today. She has no other complaints. 03/24 Patient was seen and examined. No acute events overnight. Plans to work with PT and OT today. Pain is well controlled. She has no complaints. WBC count 13.9 today. Nursing yesterday reported maroon colored stools but has since resolved. General: ill appearing, mild distress due to pain, appears at stated age, lethargic Derm: warm, dry Head: atraumatic, normocephalic, symmetric Eyes: EOMI, no lid lag, anicteric sclera Mouth: no lip lesion, dry membranes moist Cardiovascular: S1S2 irregular, no murmur Lungs: Decreased BS bilateral, rales noted at the bases, no accessory muscle use Ext: no gross muscle atrophy, 1+ LE edema, no contractures Abd: External catheter in place. Obese. Non tender to palpation. Neuro: Moving all 4 extremities independently, sensation intact to touch BL LE Psych: Alert, oriented, appropriate affect #Septic shock, Enterobacter cloacae bacteremia #Enterobacter cloacae bacteremia with likly source UTI #Enterobacter cloacae UTI #Lactic acidosis Currently off mechanical ventilation and pressors. Completed a course of cefepime. Blood cultures + Enterobacter cloacae. Urine culture + Enterobacter cloacae. Telemetry monitoring. Infectious disease and Pulmonology/ICU on board. #Acute on Chronic Systolic CHF Echo shows EF 35-40% with severe pulmonary HTN, moderate MR. Patient will need ischemic workup. Patient started on ACEi and Aldactone (held this morning due to hypotension) Lasix IV discontinued. Strict intake and outtake. Cardiology on board. #Prerenal azotemia #Hyponatremia, hypervolemic Na 128, BUN 43 Renal US shows on hydronephrosis on the R, enlarged cyst in the L kidney measuring up to 8.3 cm. BETHANY likely due to ATN from septic shock and hypoNa from poor oral intake. Nephrology on board. #Hyperglycemia likely secondary to steroids No official DM diagnosis Levemir 20 units daily. Sliding scale. A1c is 6, likely prediabetic, will benefit from metformin upon discharge. #Acute blood loss anemia #Right breast hematoma #GI bleed, concern for ischemic bowel s/p 7 unit PRBC. EGD showed mild gastritis and mild esophagitis with no active bleeding. Restart Xarelto. CT surgery recommends conservative managment of hematoma. Monitor hemoglobin. Continue Ferrlecit. Transfuse if Hg < 7. #Transaminitis Obstructive LFTs. Likely ischemic hepatitis. Improved. #Atrial fibrillation Restarted on Xarelto. Continue Amiodarone, Metoprolol. Cardiology on board. #Abdominal pain #IIeus versus SBO Advance diet as tolerated. General surgery on board. #T10 to pelvis decompression with fusion #Post-op pain Management per Orthopedic surgery. Gabapentin, Valium, Flexeril. Decadron. Continue with Dilaudid and Percocet PRN. Patient has no stairs and planning on going home, she has nearby help from family but lives alone. Patient currently on bed rest. Awaiting for orthopedic surgery to clear patient for PT OT PT and OT consulted. PMR consulted. #Right diaphragmatic paralysis Aggressive pulmonary hygiene. Pulmonology on board. #HLD Statin. #HTN Cotinue Metoprolol. Lisinopril, Aldactone held due to hypotension today. Monitor vitals and adjust medication if necessary. Resolved: Hyperkalemia, Aborted cardiac arrest Objective - Vital Signs Vital signs: Vital Signs Temp 98.1 F 03/24/22 09:53 Pulse 65 03/24/22 09:53 Resp 16 03/24/22 09:53 BP 83/55 03/24/22 09:53 Pulse Ox 94 L 03/24/22 09:53 FiO2 35 03/10/22 10:13 Intake & Output 03/23/22 03/24/22 03/24/22 18:59 06:59 18:59 Intake Total 180 200 Output Total 707 150 Balance -527 50 Intake: Oral 180 200 Output: Urine 700 150 Stool 7 Other: Voiding Method Indwelling Catheter External Catheter External Catheter # Voids 2 # Bowel Movements 1 1 ABP, PAP, CO, CI - Last Documented Arterial Blood Pressure 158/70 - Labs CBC & Chem 7: 03/24/22 07:21 03/24/22 07:21 Labs: Abnormal Lab Results - Last 24 Hours (Table) 03/23/22 03/23/22 03/24/22 Range/Units 16:43 20:11 06:13 WBC (3.8-10.6) k/uL RDW (11.5-15.5) % Sodium (137-145) mmol/L Carbon Dioxide (22-30) mmol/L BUN (7-17) mg/dL Glucose (74-99) mg/dL POC Glucose (mg/dL) 312 H 294 H 143 H (70-110) mg/dL Calcium (8.4-10.2) mg/dL 03/24/22 03/24/22 03/24/22 Range/Units 07:21 07:21 11:53 WBC 13.9 H (3.8-10.6) k/uL RDW 18.7 H (11.5-15.5) % Sodium 128 L (137-145) mmol/L Carbon Dioxide 20 L (22-30) mmol/L BUN 43 H (7-17) mg/dL Glucose 129 H (74-99) mg/dL POC Glucose (mg/dL) 139 H (70-110) mg/dL Calcium 8.0 L (8.4-10.2) mg/dL
[2022-03-24] MEDS: MAG HYDROX/AL HYDROX/SIMETH 30 ML, diphenhydrAMINE ELIXIR 75 MG, LIDOCAINE VISCOUS 2% 3... PO SCH ×9 (13:23→21:04)
[2022-03-24 16:47] LABS: Glucose,Whole Blood 118 mg/dL (70-110)
[2022-03-24] MEDS ORDERED: RIVAROXABAN 20 MG TAB PO SCH (17:30)
--- NOTE | 2022-03-24 20:29 | P.PN ---
Subjective Progress Note Date: 03/24/22 Principal diagnosis: UTI and bacteremia Patient is a 71-year-old female with a past medical history difficult for atrial fibrillation flutter hypertension hyperlipidemia hypothyroidism right breast cancer electively admitted to the hospital more than 2 weeks ago 022 for T10 to lumbar spine revision decompression and posterior lateral interbody fusion, patient did have a episode of hypotension and elevated white count requiring admission to the ICU patient did have a positive UA and gram- negative bacteremia and is scheduled for exploration of the thoracolumbar incision completed on 03/09/2022 with apparently no evidence of any abscess On today's evaluation that is 03/24/2022 the patient continues to be afebrile , the patient is breathing comfortably on room air, the patient denies any chest pain occasional cough no nausea no vomiting no abdominal pain and diarrhea back pain is controlled Objective - Vital Signs Vital signs: Vital Signs Temp 98.1 F 03/24/22 09:53 Pulse 65 03/24/22 09:53 Resp 16 03/24/22 09:53 BP 83/55 03/24/22 09:53 Pulse Ox 94 L 03/24/22 09:53 FiO2 35 03/10/22 10:13 Intake & Output 03/23/22 03/24/22 03/24/22 18:59 06:59 18:59 Intake Total 180 200 Output Total 707 150 Balance -527 50 Intake: Oral 180 200 Output: Urine 700 150 Stool 7 Other: Voiding Method Indwelling Catheter External Catheter External Catheter # Voids 2 # Bowel Movements 1 1 ABP, PAP, CO, CI - Last Documented Arterial Blood Pressure 158/70 - Exam GENERAL DESCRIPTION: An elderly female lying in bed in no distress RESPIRATORY SYSTEM: Unlabored breathing , decreased breath sounds at bases HEART: S1 S2 regular rate and rhythm , ABDOMEN: Soft , no tenderness Thoracolumbar spine incision stitches are intact there is no drainage or redness EXTREMITIES: Diffuse swelling bilateral lower extremity - Labs CBC & Chem 7: 03/24/22 07:21 03/24/22 07:21 Labs: Abnormal Lab Results - Last 24 Hours (Table) 03/23/22 03/23/22 03/24/22 Range/Units 16:43 20:11 06:13 WBC (3.8-10.6) k/uL RDW (11.5-15.5) % Sodium (137-145) mmol/L Carbon Dioxide (22-30) mmol/L BUN (7-17) mg/dL Glucose (74-99) mg/dL POC Glucose (mg/dL) 312 H 294 H 143 H (70-110) mg/dL Calcium (8.4-10.2) mg/dL 03/24/22 03/24/22 03/24/22 Range/Units 07:21 07:21 11:53 WBC 13.9 H (3.8-10.6) k/uL RDW 18.7 H (11.5-15.5) % Sodium 128 L (137-145) mmol/L Carbon Dioxide 20 L (22-30) mmol/L BUN 43 H (7-17) mg/dL Glucose 129 H (74-99) mg/dL POC Glucose (mg/dL) 139 H (70-110) mg/dL Calcium 8.0 L (8.4-10.2) mg/dL Assessment and Plan (1) Gram-negative bacteremia Current Visit: Yes Status: Acute Code(s): R78.81 - BACTEREMIA SNOMED Code(s): 804681639111 Plan: 1patient with SIRS/sepsis in this patient who has been in the hospital for 2 weeks with elective admission to the hospital for thoracolumbar spine revision did have a cardiac arrest requiring resuscitation , patient did have evidence of Enterobacter UTI with secondary bacteremia for which the patient has completed her antibiotic therapy 2patient has been afebrile however the patient did have slightly elevated white count questionably steroid effect and will be monitored closely, if spike any fever to reculture and start appropriate antibiotics at that point Time with Patient: Less than 30
[2022-03-24 20:31] LABS: Glucose,Whole Blood 198 mg/dL (70-110)
[2022-03-25] MEDS: METOPROLOL SUCCINATE (ER) 25 MG TAB.ER.24H PO SCH ×2 (05:44→21:01)
[2022-03-25] MEDS: LEVOTHYROXINE 88 MCG TAB PO SCH (05:45)
[2022-03-25] MEDS: SODIUM CHLORIDE 0.9% 1,000 ML IV SCH (05:45)
[2022-03-25] MEDS: ACETAMINOPHEN TAB 500 MG TAB PO SCH ×4 (05:45→23:29)
[2022-03-25 05:57] LABS: Glucose,Whole Blood 147 mg/dL (70-110)
[2022-03-25] MEDS: INSULIN DETEMIR (LEVEMIR) 100 UNIT/ML SYR SQ SCH (06:15)
[2022-03-25] MEDS: INSULIN ASPART (NovoLOG) 100 UNIT/ML VIAL SQ SCH ×4 (06:20→21:02)
--- NOTE | 2022-03-25 07:43 | P.PN ---
Progress Note - Text Progress Note Date: 03/25/22 Pt s/e this AM She is awake and alert and following commands. She is watching TV and eating breakfast. She sat up for 1 hr yesterday w/o sx. Nursing states they removed the upper portion of her sutures as skin looked healed. Still tenuous. She is laying in stool this morning again when I came in to see her. We rolled her and nursing is cleaning her up again. Exam: 4+/5 DF/PF/EHL/FHL b/l 2-3/5 HF/Quad and Ham b/l SILT L2-S2 2/4 distal pulses all Compartments soft and compressive Wound exam: Upper portion of the wound healing. She is sweating around the wound and she is laying again in Feces. The bottom portion of the wound still has sutures in and is delayed healing. There is moisness about the wound that is either drainage (poss CSF again) vs her sweat along with whatever other fluids she is allowed to lay in on the floor. It does not appear infected at this time. NO EEE. Keep sutures in. Dress wound to keep away from BM. PLAN: -Appreciate solutions market consultant and team management PCC and medicine -Appreciate cardiothoracic, Gen. surgery, nephrology, ID evaluations -Continue Activity: Cont to sit up during the day and monitor -Daily proning 5-10 min work up to 10 -Cont Abx for duration of stay -Caffiene daily 200 mg daily -Add Fioracet if able daily for LOZANO -Pain control: Adequate today ( Tylenol 1000 mg MEHUL, Oxy IR q4 hrs 10-15 mg titrated to pain (pt been on Cory for 20 yrs), Cont Gabapentin,) -Meplex pads on sacral region with barrier cream. Cont turn. Sit at different angles. -Meds: reviewed -Trend labs -Transfusions to vitals -GI ppx: senna, Miralax -Continue Warren changed per protocol -Cont with FBS -DVT PPX: Mechanical only -Hygiene: Maintain dressing clean and dry. Meticulous cleaning after BMs away from incision site patient has had several instances on the floor where she was covered and bowel movement as well as urine up to her shoulders on her back. The wound needs to be kept meticulously clean. -Encourage IS 10x/hr -Possible to transfer to rehab by Sunday if stable.
[2022-03-25 07:47] LABS: Anisocytosis Slight; HCT 34.9 % (34.0-46.0); HGB 11.7 gm/dL (11.4-16.0); Hypochromasia Slight; MCH 31.5 pg (25.0-35.0); MCHC 33.4 g/dL (31.0-37.0); MCV 94.4 fL (80.0-100.0); Macrocytosis Slight; Mean Platelet Volume 9.9; Poikilocytosis Slight; RDW 18.5 % (11.5-15.5); WBC 11.8 k/uL (3.8-10.6)
[2022-03-25 08:53] LABS: African American GFR (CKD) >90 (>60 ml/min/1.73 sqM); Anion Gap 7 mmol/L; Blood Urea Nitrogen 42 mg/dL (7-17); Carbon Dioxide 20 mmol/L (22-30); Chloride 101 mmol/L (98-107); Glucose 145 mg/dL (74-99); Non-African American GFR(CKD) >90 (>60 ml/min/1.73 sqM); Sodium 128 mmol/L (137-145)
[2022-03-25] MEDS: ATORVASTATIN 10 MG TAB PO SCH (10:08)
[2022-03-25] MEDS: DULoxetine HCL 60 MG CAPSULE.DR PO SCH (10:08)
[2022-03-25] MEDS: CYCLOBENZAPRINE 10 MG TAB PO PRN ×2 (10:08→22:20)
[2022-03-25] MEDS: GABAPENTIN 400 MG CAP PO SCH ×3 (10:08→21:01)
[2022-03-25] MEDS: CAFFEINE-SODIUM BENZOATE 500 MG in SODIUM CHLORIDE 0.9% 100 ML IVPB SCH (10:08)
[2022-03-25] MEDS: AMIODARONE 200 MG TAB PO SCH (10:08)
[2022-03-25] MEDS: lisinopriL 5 MG TAB PO SCH (10:08)
[2022-03-25] MEDS: SPIRONOLACTONE 25 MG TAB PO SCH (10:08)
[2022-03-25 10:09] LABS: Band Neutrophils % 1 %; Lymphocytes # (M) 0.59 k/uL (1.0-4.8); Metamyelocytes # (M) 0.12 k/uL (0); Metamyelocytes % 1 %; Monocytes # (M) 0.35 k/uL (0-1.0); Myelocytes # (M) 0.12 k/uL (0); Myelocytes % 1 %; Neutrophils % (M) 91 %; Nucleated Red Blood Cells 0 /100 WBC (0-0); Total Cells Counted 200
[2022-03-25] MEDS: PANTOPRAZOLE 40 MG/10 ML VIAL IVP SCH (10:09)
[2022-03-25] MEDS: DEXAMETHASONE SOD PHOSPHATE 4 MG/ML 1 ML VIAL IVP SCH ×3 (10:09→23:30)
[2022-03-25 10:12] LABS: Platelet Count 200 k/uL (150-450)
[2022-03-25] MEDS: MAG HYDROX/AL HYDROX/SIMETH 30 ML, diphenhydrAMINE ELIXIR 75 MG, LIDOCAINE VISCOUS 2% 3... PO SCH ×9 (11:31→21:01)
[2022-03-25 11:46] LABS: Glucose,Whole Blood 126 mg/dL (70-110)
--- NOTE | 2022-03-25 13:06 | P.PN ---
Subjective Progress Note Date: 03/25/22 Patient is a 71 yo CF with a hx of A fib s/p ablation, GERD, hypertension, dyslipidemia, and right diaphragmatic paralysis who presented for T10 to Pelvis decompression and fusion with revision. Blood loss and the case was approximately 1900 mL. During her operative course she required phenylephrine IV infusion, Vasopressin IVP. She also received TXA gtt. She received 7 L of lactated Ringer's. She received 1 amp of sodium bicarb intaop. She also received albumin. Her operative course was complicated with a cardiac arrest. During the case she developed A. fib with RVR and then quickly transitioned into bradycardia with a low end-tidal CO2. She received 0.4 of atropine and CPR was started. She received epinephrine 0.5. She achieved ROSC. Total down time was less than 5 minutes. She was extubated on 02/25. She continued to do well with struggled with pain. She was downgraded from ICU on 03/03. She was evaluated by PMR, awaiting inpatient rehab. On 03/07, patient was noted to be hypotensive with elevated WBC count of 42.3, with worsening renal function and hyperkalamia. Patient was treated with NS bolus, IV insulin/D50, Albuterol and sodium bicarbonate. She was transferred back to the ICU for septic shock requiring Levophed. Started on Vancomycin and Cefepime, blood and urine cultures were positive for Enterobacter. ID was consulted and she was continued on Cefepime while Vancomycin was discontinued. Levophed was able to be weaned off. Her hemoglobin continued to drop, she requ ired a total of [address] AP was ordered which showed a large right chest hematoma and dilated small bowel concerning for ileus. CT surgery was consulted and recommended conservative management for chest hematoma. NG tube was inserted and patient undewent EGD. EGD showed mild gastritis and esophagitis, she was continued to Protonix. Patient underwent irrigation of debridement of the thoracolumbar and pelvic skin, soft tissue, muscle, bone and spine along with dural repair with patch graft L1 on 03/09. Her hyponatremia and BETHANY resolved with IV hydration. She was started on Lasix IV for volume overload during fluid resuscitation for sepsis. 03/21 Patient was seen and examined. No acute events overnight. Patient reports vertigo like symptoms have resolved. CT head was performed yesterday and was negative for acute findings. She reports palpitations and a pounding sensation in her chest. She also reports shortness of breath, though improved. BP low this morning 90s/30s which has improved on recheck. 03/22 Patient was seen and examined. No acute events overnight. Patient reports improvement in palpitations. She reports lower back pain and radiculopathy. Pain is spastic in nature, 10 out of 10 in severity. Cleared by orthopedic surgery to get out of bed She'll be working with PT today. 03/23 Patient was seen and examined. No acute events overnight. Able to sit up on the side of the bed with PT and OT yesterday. Pain is 5/10 in severity today. She has no other complaints. 03/24 Patient was seen and examined. No acute events overnight. Plans to work with PT and OT today. Pain is well controlled. She has no complaints. WBC count 13.9 today. Nursing yesterday reported maroon colored stools but has since resolved. 03/25 Patient seen and examined. No acute events overnight. Nursing reports continued black tarry stool. Hemoglobin appears stable. General: ill appearing, mild distress due to pain, appears at stated age, lethargic Derm: warm, dry Head: atraumatic, normocephalic, symmetric Eyes: EOMI, no lid lag, anicteric sclera Mouth: no lip lesion, dry membranes moist Cardiovascular: S1S2 irregular, no murmur Lungs: Decreased BS bilateral, rales noted at the bases, no accessory muscle use Ext: no gross muscle atrophy, 1+ LE edema, no contractures Abd: External catheter in place. Obese. Non tender to palpation. Neuro: Moving all 4 extremities independently, sensation intact to touch BL LE Psych: Alert, oriented, appropriate affect #Septic shock, Enterobacter cloacae bacteremia #Enterobacter cloacae bacteremia with likly source UTI #Enterobacter cloacae UTI #Lactic acidosis Currently off mechanical ventilation and pressors. Completed a course of cefepime. Blood cultures + Enterobacter cloacae. Urine culture + Enterobacter cloacae. Telemetry monitoring. Infectious disease and Pulmonology/ICU on board. #Acute on Chronic Systolic CHF Echo shows EF 35-40% with severe pulmonary HTN, moderate MR. Patient will need ischemic workup. Patient started on ACEi and Aldactone (held this morning due to hypotension) Lasix IV discontinued. Strict intake and outtake. Cardiology on board. #Prerenal azotemia #Hyponatremia, hypervolemic Na 128, BUN 42 Renal US shows on hydronephrosis on the R, enlarged cyst in the L kidney measuring up to 8.3 cm. BETHANY likely due to ATN from septic shock and hypoNa from poor oral intake. Nephrology on board. #Hyperglycemia likely secondary to steroids No official DM diagnosis Levemir 20 units daily. Sliding scale. A1c is 6, likely prediabetic, will benefit from metformin upon discharge. #Acute blood loss anemia #Right breast hematoma #GI bleed, concern for ischemic bowel s/p 7 unit PRBC. EGD showed mild gastritis and mild esophagitis with no active bleeding. Restart Xarelto. CT surgery recommends conservative managment of hematoma. Monitor hemoglobin. Continue Ferrlecit. Transfuse if Hg < 7. #Transaminitis Obstructive LFTs. Likely ischemic hepatitis. Improved. #Atrial fibrillation Restarted on Xarelto. Continue Amiodarone, Metoprolol. Cardiology on board. #Abdominal pain #IIeus versus SBO Advance diet as tolerated. General surgery on board. #T10 to pelvis decompression with fusion #Post-op pain Management per Orthopedic surgery. Gabapentin, Valium, Flexeril. Decadron. Continue with Dilaudid and Percocet PRN. Patient has no stairs and planning on going home, she has nearby help from family but lives alone. Patient currently on bed rest. Awaiting for orthopedic surgery to clear patient for PT OT PT and OT consulted. PMR consulted. #Right diaphragmatic paralysis Aggressive pulmonary hygiene. Pulmonology on board. #HLD Statin. #HTN Cotinue Metoprolol. Lisinopril, Aldactone held due to hypotension today. Monitor vitals and adjust medication if necessary. Resolved: Hyperkalemia, Aborted cardiac arrest Objective - Vital Signs Vital signs: Vital Signs Temp 97.8 F 03/25/22 08:04 Pulse 122 H 03/25/22 08:04 Resp 18 03/25/22 08:04 BP 112/78 03/25/22 08:04 Pulse Ox 97 03/25/22 08:40 FiO2 35 03/10/22 10:13 Intake & Output 03/24/22 03/25/22 03/25/22 18:59 06:59 18:59 Output Total 300 400 Balance -300 -400 Output: Urine 300 400 Other: Voiding Method External Catheter External Catheter External Catheter # Bowel Movements 1 ABP, PAP, CO, CI - Last Documented Arterial Blood Pressure 158/70 - Labs CBC & Chem 7: 03/25/22 07:24 03/25/22 07:24 Labs: Abnormal Lab Results - Last 24 Hours (Table) 03/24/22 03/24/22 03/25/22 Range/Units 16:46 20:30 05:56 WBC (3.8-10.6) k/uL RBC (3.80-5.40) m/uL RDW (11.5-15.5) % Neutrophils # (Manual) (1.3-7.7) k/uL Lymphocytes # (Manual) (1.0-4.8) k/uL Metamyelocytes # (Man) (0) k/uL Myelocytes # (Manual) (0) k/uL Sodium (137-145) mmol/L Carbon Dioxide (22-30) mmol/L BUN (7-17) mg/dL Glucose (74-99) mg/dL POC Glucose (mg/dL) 118 H 198 H 147 H (70-110) mg/dL Calcium (8.4-10.2) mg/dL 03/25/22 03/25/22 03/25/22 Range/Units 07:24 07:24 11:45 WBC 11.8 H (3.8-10.6) k/uL RBC 3.70 L (3.80-5.40) m/uL RDW 18.5 H (11.5-15.5) % Neutrophils # (Manual) 10.80 H (1.3-7.7) k/uL Lymphocytes # (Manual) 0.59 L (1.0-4.8) k/uL Metamyelocytes # (Man) 0.12 H (0) k/uL Myelocytes # (Manual) 0.12 H (0) k/uL Sodium 128 L (137-145) mmol/L Carbon Dioxide 20 L (22-30) mmol/L BUN 42 H (7-17) mg/dL Glucose 145 H (74-99) mg/dL POC Glucose (mg/dL) 126 H (70-110) mg/dL Calcium 8.0 L (8.4-10.2) mg/dL
--- NOTE | 2022-03-25 13:28 | P.PN ---
Subjective Progress Note Date: 03/25/22 Principal diagnosis: UTI and bacteremia Patient is a 71-year-old female with a past medical history difficult for atrial fibrillation flutter hypertension hyperlipidemia hypothyroidism right breast cancer electively admitted to the hospital more than 2 weeks ago 022 for T10 to lumbar spine revision decompression and posterior lateral interbody fusion, patient did have a episode of hypotension and elevated white count requiring admission to the ICU patient did have a positive UA and gram- negative bacteremia and is scheduled for exploration of the thoracolumbar incision completed on 03/09/2022 with apparently no evidence of any abscess On today's evaluation that is 03/25/2022 the patient remains to be afebrile , the patient is breathing comfortably on room air, the patient denies any chest pain shortness of breath or cough, no nausea no vomiting no abdominal pain however the patient did have recurrence of her diarrhea has been complaining of soreness in the perirectal area Objective - Vital Signs Vital signs: Vital Signs Temp 97.8 F 03/25/22 08:04 Pulse 122 H 03/25/22 08:04 Resp 18 03/25/22 08:04 BP 112/78 03/25/22 08:04 Pulse Ox 97 03/25/22 08:40 FiO2 35 03/10/22 10:13 Intake & Output 03/24/22 03/25/22 03/25/22 18:59 06:59 18:59 Output Total 300 400 Balance -300 -400 Output: Urine 300 400 Other: Voiding Method External Catheter External Catheter External Catheter # Bowel Movements 1 ABP, PAP, CO, CI - Last Documented Arterial Blood Pressure 158/70 - Exam GENERAL DESCRIPTION: An elderly female lying in bed in no distress RESPIRATORY SYSTEM: Unlabored breathing , decreased breath sounds at bases HEART: S1 S2 regular rate and rhythm , ABDOMEN: Soft , no tenderness Thoracolumbar spine incision stitches are intact there is no drainage or redness EXTREMITIES: Diffuse swelling bilateral lower extremity - Labs CBC & Chem 7: 03/25/22 07:24 03/25/22 07:24 Labs: Abnormal Lab Results - Last 24 Hours (Table) 03/24/22 03/24/22 03/25/22 Range/Units 16:46 20:30 05:56 WBC (3.8-10.6) k/uL RBC (3.80-5.40) m/uL RDW (11.5-15.5) % Neutrophils # (Manual) (1.3-7.7) k/uL Lymphocytes # (Manual) (1.0-4.8) k/uL Metamyelocytes # (Man) (0) k/uL Myelocytes # (Manual) (0) k/uL Sodium (137-145) mmol/L Carbon Dioxide (22-30) mmol/L BUN (7-17) mg/dL Glucose (74-99) mg/dL POC Glucose (mg/dL) 118 H 198 H 147 H (70-110) mg/dL Calcium (8.4-10.2) mg/dL 03/25/22 03/25/22 03/25/22 Range/Units 07:24 07:24 11:45 WBC 11.8 H (3.8-10.6) k/uL RBC 3.70 L (3.80-5.40) m/uL RDW 18.5 H (11.5-15.5) % Neutrophils # (Manual) 10.80 H (1.3-7.7) k/uL Lymphocytes # (Manual) 0.59 L (1.0-4.8) k/uL Metamyelocytes # (Man) 0.12 H (0) k/uL Myelocytes # (Manual) 0.12 H (0) k/uL Sodium 128 L (137-145) mmol/L Carbon Dioxide 20 L (22-30) mmol/L BUN 42 H (7-17) mg/dL Glucose 145 H (74-99) mg/dL POC Glucose (mg/dL) 126 H (70-110) mg/dL Calcium 8.0 L (8.4-10.2) mg/dL Assessment and Plan (1) Gram-negative bacteremia Current Visit: Yes Status: Acute Code(s): R78.81 - BACTEREMIA SNOMED Code(s): 010444076719 Plan: 1patient with SIRS/sepsis in this patient who has been in the hospital for 2 weeks with elective admission to the hospital for thoracolumbar spine revision did have a cardiac arrest requiring resuscitation , patient did have evidence of Enterobacter UTI with secondary bacteremia for which the patient has completed her antibiotic therapy 2patient with diarrhea we will check a stool for C. diff and treat if positive will add Questran for symptomatic relief skin barrier cream to the perirectal area discussed with the nursing staff Time with Patient: Less than 30
--- NOTE | 2022-03-25 15:12 | P.PN ---
Subjective Progress Note Date: 03/25/22 Follow-up for hyponatremia. Denies any nausea vomiting diarrhea. No chest pain or shortness of breath. Objective - Vital Signs Vital signs: Vital Signs Temp 97.7 F 03/25/22 12:02 Pulse 125 H 03/25/22 12:02 Resp 18 03/25/22 12:02 BP 120/75 03/25/22 12:02 Pulse Ox 96 03/25/22 12:02 FiO2 35 03/10/22 10:13 Intake & Output 03/24/22 03/25/22 03/25/22 18:59 06:59 18:59 Intake Total 100 Output Total 300 400 Balance -300 -400 100 Intake: Intake, IV Titration 100 Amount Caffeine-Sodium Benzoate 100 500 mg In Sodium Chloride 0.9% 100 ml @ 102 mls/hr IVPB DAILY [facility] Rx#: [id number] Output: Urine 300 400 Other: Voiding Method External Catheter External Catheter External Catheter # Bowel Movements 1 ABP, PAP, CO, CI - Last Documented Arterial Blood Pressure 158/70 - Exam No acute distress S1-S2 heard Decreased breath sounds Abdomen soft Trace edema - Labs CBC & Chem 7: 03/25/22 07:24 03/25/22 07:24 Labs: Abnormal Lab Results - Last 24 Hours (Table) 03/24/22 03/24/22 03/25/22 Range/Units 16:46 20:30 05:56 WBC (3.8-10.6) k/uL RBC (3.80-5.40) m/uL RDW (11.5-15.5) % Neutrophils # (Manual) (1.3-7.7) k/uL Lymphocytes # (Manual) (1.0-4.8) k/uL Metamyelocytes # (Man) (0) k/uL Myelocytes # (Manual) (0) k/uL Sodium (137-145) mmol/L Carbon Dioxide (22-30) mmol/L BUN (7-17) mg/dL Glucose (74-99) mg/dL POC Glucose (mg/dL) 118 H 198 H 147 H (70-110) mg/dL Calcium (8.4-10.2) mg/dL 03/25/22 03/25/22 03/25/22 Range/Units 07:24 07:24 11:45 WBC 11.8 H (3.8-10.6) k/uL RBC 3.70 L (3.80-5.40) m/uL RDW 18.5 H (11.5-15.5) % Neutrophils # (Manual) 10.80 H (1.3-7.7) k/uL Lymphocytes # (Manual) 0.59 L (1.0-4.8) k/uL Metamyelocytes # (Man) 0.12 H (0) k/uL Myelocytes # (Manual) 0.12 H (0) k/uL Sodium 128 L (137-145) mmol/L Carbon Dioxide 20 L (22-30) mmol/L BUN 42 H (7-17) mg/dL Glucose 145 H (74-99) mg/dL POC Glucose (mg/dL) 126 H (70-110) mg/dL Calcium 8.0 L (8.4-10.2) mg/dL Assessment and Plan Assessment: #1 chronic hypotonic hyponatremia #2 normal renal function #3 lower extremity edema #4 status post lumbar spine surgery. Plan: #1 sodium dropping to 128 for the last 2 days. Samsca 15 mg once today. #2 labs in the morning
[2022-03-25] MEDS ORDERED: TOLVAPTAN 15 MG 1/2 TABLET PO ONE (15:40)
[2022-03-25] MEDS: ONDANSETRON 4 MG/2 ML VIAL IVP PRN (16:08)
[2022-03-25 16:30] LABS: Glucose,Whole Blood 164 mg/dL (70-110)
[2022-03-25] MEDS: CHOLESTYRAMINE (WITH SUGAR) 4 GM PACKET PO SCH ×2 (17:15)
[2022-03-25 20:20] LABS: Glucose,Whole Blood 149 mg/dL (70-110)
[2022-03-26] MEDS: SODIUM CHLORIDE 0.9% 1,000 ML IV SCH (05:34)
[2022-03-26 06:30] LABS: Glucose,Whole Blood 154 mg/dL (70-110)
[2022-03-26] MEDS: INSULIN ASPART (NovoLOG) 100 UNIT/ML VIAL SQ SCH ×4 (06:40→21:36)
[2022-03-26] MEDS: ACETAMINOPHEN TAB 500 MG TAB PO SCH ×3 (06:44→17:37)
[2022-03-26] MEDS: INSULIN DETEMIR (LEVEMIR) 100 UNIT/ML SYR SQ SCH (06:45)
[2022-03-26] MEDS: LEVOTHYROXINE 88 MCG TAB PO SCH (06:45)
[2022-03-26 08:37] LABS: African American GFR (CKD) >90 (>60 ml/min/1.73 sqM); Anion Gap 5 mmol/L; Blood Urea Nitrogen 44 mg/dL (7-17); Carbon Dioxide 18 mmol/L (22-30); Chloride 103 mmol/L (98-107); Glucose 146 mg/dL (74-99); Non-African American GFR(CKD) >90 (>60 ml/min/1.73 sqM); Potassium 5.4 mmol/L (3.5-5.1); Sodium 126 mmol/L (137-145)
--- NOTE | 2022-03-26 09:41 | P.PN ---
Subjective Progress Note Date: 03/26/22 Principal diagnosis: This is 71-year-old female followed up with hyponatremia. She was given Samsca 15 mg- sodium has been going on from 1:30 on 03/23/2022, 05/03/2079 yesterday and after Samsca has further gone down to 126. patient with SIRS/sepsis in this patient who has been in the hospital for 2 weeks with elective admission to the hospital for thoracolumbar spine revision did have a cardiac arrest requiring resuscitation , patient did have evidence of Enterobacter UTI with secondary bacteremia for which the patient has completed her antibiotic therapy Currently she remains awake alert but profoundly weak and sweaty Vital signs blood pressure in the 102/66-114/68 range, heart rate in the 120s On room air saturations 98% 24-hour intake 24-hour intake is documented at 1800 without any output documented Objective - Vital Signs Vital signs: Vital Signs Temp 97.5 F L 03/26/22 03:55 Pulse 120 H 03/26/22 03:55 Resp 16 03/26/22 03:55 BP 114/68 03/26/22 03:55 Pulse Ox 98 03/26/22 03:55 FiO2 35 03/10/22 10:13 Intake & Output 03/25/22 03/26/22 03/26/22 18:59 06:59 18:59 Intake Total 100 500 Balance 100 500 Intake: Intake, IV Titration 100 Amount Caffeine-Sodium Benzoate 100 500 mg In Sodium Chloride 0.9% 100 ml @ 102 mls/hr IVPB DAILY [facility] Rx#: [id number] Oral 500 Other: Voiding Method External Catheter External Catheter # Voids 3 # Bowel Movements 1 1 ABP, PAP, CO, CI - Last Documented Arterial Blood Pressure 158/70 Examination awake alert profoundly weak She is diaphoretic. HEENT exam no JVP neck is supple no facial asymmetry Lungs are clear to auscultation good air entry bilaterally Heart sounds unremarkable for any murmur rub gallop Abdomen soft nontender Extremity exam was no edema Profoundly weak but moves all her extremities. - Labs CBC & Chem 7: 03/25/22 07:24 03/26/22 07:43 Labs: Abnormal Lab Results - Last 24 Hours (Table) 03/25/22 03/25/22 03/25/22 Range/Units 07:24 11:45 16:24 Neutrophils # (Manual) 10.80 H (1.3-7.7) k/uL Lymphocytes # (Manual) 0.59 L (1.0-4.8) k/uL Metamyelocytes # (Man) 0.12 H (0) k/uL Myelocytes # (Manual) 0.12 H (0) k/uL Sodium (137-145) mmol/L Potassium (3.5-5.1) mmol/L Carbon Dioxide (22-30) mmol/L BUN (7-17) mg/dL Glucose (74-99) mg/dL POC Glucose (mg/dL) 126 H 164 H (70-110) mg/dL Calcium (8.4-10.2) mg/dL 03/25/22 03/26/22 03/26/22 Range/Units 20:18 06:28 07:43 Neutrophils # (Manual) (1.3-7.7) k/uL Lymphocytes # (Manual) (1.0-4.8) k/uL Metamyelocytes # (Man) (0) k/uL Myelocytes # (Manual) (0) k/uL Sodium 126 L (137-145) mmol/L Potassium 5.4 H (3.5-5.1) mmol/L Carbon Dioxide 18 L (22-30) mmol/L BUN 44 H (7-17) mg/dL Glucose 146 H (74-99) mg/dL POC Glucose (mg/dL) 149 H 154 H (70-110) mg/dL Calcium 8.0 L (8.4-10.2) mg/dL Assessment and Plan Assessment: Impression 1. Hyponatremia, possibly from diarrhea but cause is not very clear - did not respond to 15 mg of Samsca yesterday. Possibilities include volume depletion. Unlikely to be congestive heart failure as she is on room air and saturating well and clear lungs. 2. Sepsis with gram-negative bacteremia source not clear infectious disease following. 3. Mild degree of non-gap acidosis. Likely from diarrhea. 4. Diabetes mellitus blood sugars fairly well controlled. 5. Medication 1. Hold spironolactone. 2. Check post void residual 3. Obtain chest x-ray 4. No further intervention regarding hyponatremia until workup completed
--- NOTE | 2022-03-26 10:07 | XR ---
EXAMINATION TYPE: XR chest 1V DATE OF EXAM: 03/26/2022 COMPARISON: 03/20/2022 HISTORY: 71-year-old female CHF TECHNIQUE: Single frontal view of the chest is obtained. FINDINGS: Patient is markedly obliqued limiting evaluation. Continued asymmetric elevation right hem idiaphragm. Left PICC tip probably at the upper SVC level. Right heart margin obscured by the adjacen t elevated hemidiaphragm. Prominent bands of atelectasis in the bilateral lower lungs. No kim conso lidation. No sizable pleural effusion. Partially visualized thoracolumbar fusion hardware. IMPRESSION: 1. Limited, markedly obliqued exam. Ongoing marked asymmetric elevation right hemidiaphragm. If adrien rn for hemidiaphragmatic paralysis, a fluoroscopic sniff test could be performed. 2. Prominent strandy atelectasis in the lower lungs. No kim airspace disease or pleural effusion se en.
[2022-03-26] MEDS: lisinopriL 5 MG TAB PO SCH (10:14)
[2022-03-26] MEDS: GABAPENTIN 400 MG CAP PO SCH ×3 (10:14→21:36)
[2022-03-26] MEDS: ATORVASTATIN 10 MG TAB PO SCH (10:14)
[2022-03-26] MEDS: DULoxetine HCL 60 MG CAPSULE.DR PO SCH (10:14)
[2022-03-26] MEDS: AMIODARONE 200 MG TAB PO SCH (10:14)
[2022-03-26] MEDS: DEXAMETHASONE SOD PHOSPHATE 4 MG/ML 1 ML VIAL IVP SCH ×3 (10:15→23:27)
[2022-03-26] MEDS: PANTOPRAZOLE 40 MG/10 ML VIAL IVP SCH (10:15)
[2022-03-26] MEDS: CAFFEINE-SODIUM BENZOATE 500 MG in SODIUM CHLORIDE 0.9% 100 ML IVPB SCH (10:15)
[2022-03-26] MEDS: METOPROLOL SUCCINATE (ER) 25 MG TAB.ER.24H PO SCH ×2 (10:15→21:36)
[2022-03-26] MEDS: MAG HYDROX/AL HYDROX/SIMETH 30 ML, diphenhydrAMINE ELIXIR 75 MG, LIDOCAINE VISCOUS 2% 3... PO SCH ×9 (10:20→22:31)
[2022-03-26] MEDS: CHOLESTYRAMINE (WITH SUGAR) 4 GM PACKET PO SCH ×2 (10:24→17:37)
[2022-03-26] MEDS: SPIRONOLACTONE 25 MG TAB PO SCH (10:32)
[2022-03-26] MEDS ORDERED: SODIUM BICARB 8.4% 50 ML SYR (1 MEQ/ML) IV STA (10:47)
[2022-03-26 11:04] LABS: Anisocytosis Slight; HCT 36.9 % (34.0-46.0); HGB 11.9 gm/dL (11.4-16.0); Hypochromasia Moderate; MCH 31.7 pg (25.0-35.0); MCHC 32.2 g/dL (31.0-37.0); MCV 98.4 fL (80.0-100.0); Macrocytosis Slight; Mean Platelet Volume 10.9; Platelet Count 179 k/uL (150-450); Poikilocytosis Slight; RBC 3.75 m/uL (3.80-5.40); RDW 18.6 % (11.5-15.5); WBC 15.9 k/uL (3.8-10.6)
[2022-03-26] MEDS: PROCHLORPERAZINE INJ 10 MG/2 ML VIAL IVP PRN (12:24)
[2022-03-26] MEDS: SODIUM BICARBONATE TAB 650 MG TAB PO SCH ×2 (12:27→21:36)
[2022-03-26 12:34] LABS: Glucose,Whole Blood 158 mg/dL (70-110)
--- NOTE | 2022-03-26 13:10 | P.PN ---
Subjective Progress Note Date: 03/26/22 Principal diagnosis: Lumbar spondylosis; adjacent segment disease status post L2-L4 posterior fusion with proximal junctional failure; neurogenic claudication Patient seen and examined this morning. She is currently resting in bed. Surgical dressing is CDI. When patient is laying in bed on her side, please remove dressing to allow air to surgical incision. Upper portion of incision is well healed. The lower portion remains mildly macerated, needing to air out and dry. Patient reports that she was not able to work with PT yesterday, due to PT not being available and did not get up at all. Please assist patient to bedside to dangle her lower extremities and perform bed exercises. She denies any fever/chills or chest pain. Objective - Vital Signs Vital signs: Vital Signs Temp 97.9 F 03/26/22 10:25 Pulse 124 H 03/26/22 10:25 Resp 18 03/26/22 10:25 BP 124/78 03/26/22 10:25 Pulse Ox 97 03/26/22 10:25 FiO2 35 03/10/22 10:13 Intake & Output 03/25/22 03/26/22 03/26/22 18:59 06:59 18:59 Intake Total 100 500 240 Balance 100 500 240 Intake: Intake, IV Titration 100 Amount Caffeine-Sodium Benzoate 100 500 mg In Sodium Chloride 0.9% 100 ml @ 102 mls/hr IVPB DAILY [facility] Rx#: [id number] Oral 500 240 Other: Voiding Method External Catheter External Catheter External Catheter # Voids 3 # Bowel Movements 1 1 ABP, PAP, CO, CI - Last Documented Arterial Blood Pressure 158/70 - Exam PHYSICAL EXAMINATION: General: Awake, alert, appropriate for age, in no acute distress. HEENT: No changes Extremities: Skin warm and dry without no acute lesions, coloration, temperature, skin intact, no tenderness or erythema. Integument: Surgical incisions: Dressings CDI, Upper portion of incision is well healed. Lower portion remains sutured with mild maceration noted. External cath present Palpation: Special findings: pain with palpation of the right breast area with large hematoma noted as well as anterior chest wall. VASCULAR STATUS : Wrist Pulses: [2/4 bilateral radial and ulnar] Pedal Pulses: [2/4 bilateral DP and PT] Color: [Normal] Edema: Improved in arms and hands. NEUROLOGIC EXAMINATION: Mental Status: Awake and alert, oriented,but slow with normal attention, concentration and memory, and fluent, he has slow speech Cranial Nerves: I: Olfactory not tested. II: Visual acuity normal, no visual field deficit noted with confrontation. III,IV: Normal pupillary reflexes & intact extraocular movements without nystagmus. V,: Intact symmetrical facial sensation. VII: Intact symmetrical facial motor movement VIII: Hearing intact. IX,X: Intact gag, swallow, & normal voice. XI: Sternocleidomastoid, trapezius function intact. XII: Tongue midline with normal movements. Special Tests: L'hermitte's Sign: Absent Straight Leg Raising: Absent Bilateral Motor Exam (0-5/5, N/T) STRENGTH 4 out of 5 strength in upper extremity's bilaterally all major muscle groups without focal deficits generalized weakness 3 to 5 strength bilateral lower extremities all major muscle groups with generalized weakness no focal deficits. She is weak in her hip flexors currently. REFLEXES Upper Extremity: RIGHT [2]/4 LEFT [2]/4 Lower Extremity: RIGHT [2]/4 LEFT [2]/4 Pathological Reflexes Warren's: RIGHT [Absent] LEFT [Absent] Babinski: RIGHT [Absent] LEFT [Absent] Clonus: RIGHT [None] LEFT [None] SENSORY Intact Gait and Functional Evaluation: Sit patient at bedside and increase physical activity as tolerated - Labs CBC & Chem 7: 03/26/22 07:43 03/26/22 07:43 Labs: Abnormal Lab Results - Last 24 Hours (Table) 03/25/22 03/25/22 03/26/22 Range/Units 16:24 20:18 06:28 WBC (3.8-10.6) k/uL RBC (3.80-5.40) m/uL RDW (11.5-15.5) % Sodium (137-145) mmol/L Potassium (3.5-5.1) mmol/L Carbon Dioxide (22-30) mmol/L BUN (7-17) mg/dL Glucose (74-99) mg/dL POC Glucose (mg/dL) 164 H 149 H 154 H (70-110) mg/dL Calcium (8.4-10.2) mg/dL 03/26/22 03/26/22 Range/Units 07:43 07:43 WBC 15.9 H (3.8-10.6) k/uL RBC 3.75 L (3.80-5.40) m/uL RDW 18.6 H (11.5-15.5) % Sodium 126 L (137-145) mmol/L Potassium 5.4 H (3.5-5.1) mmol/L Carbon Dioxide 18 L (22-30) mmol/L BUN 44 H (7-17) mg/dL Glucose 146 H (74-99) mg/dL POC Glucose (mg/dL) (70-110) mg/dL Calcium 8.0 L (8.4-10.2) mg/dL Assessment and Plan Assessment: 1. Lumbar spondylosis; adjacent segment disease status post L2-L4 posterior fusion with proximal junctional failure; neurogenic claudication - Postoperative day #30 & 17 status post [id number] decompression and fusion with washout and revision dural repair -ABLA expected outcome of surgery as well as secondary to UGI bleed. Status post 7 units PRBC and 1 pack platelets -bilateral lower extremity weakness, status post multiple controlled falls in- house -Enterobacter sepsis, UTI -status post cardiac arrest Plan: -Appreciate middleware consultant and team management PCC and medicine -Appreciate cardiothoracic, Gen. surgery, nephrology, ID evaluations -Continue Activity: Sit patient at bedside to perform leg exercises. Encourage to increase physical activity as tolerated. -Recommend titration of cardiac medications per cardio -Cont Abx for duration of stay -Caffiene daily 200 mg daily, Fioricet -Pain control: Adequate today ( Tylenol 1000 mg MEHUL, Oxy IR q4 hrs 10-15 mg titrated to pain (pt been on [place] for 20 yrs), Cont Gabapentin,) -Meds: reviewed -Trend labs -Transfusions to vitals -GI ppx: senna, Miralax -Cont with FBS -DVT PPX: Xarelto -Hygiene: Maintain dressing clean and dry. Please remove dressing when patient is laying on her side, to allow air to incision. Meticulous cleaning after BMs away from incision site The wound needs to be kept meticulously clean, and dry. -Encourage IS 10x/hr -Will follow
--- NOTE | 2022-03-26 13:46 | P.PN ---
Subjective Progress Note Date: 03/26/22 Patient is a 71 yo CF with a hx of A fib s/p ablation, GERD, hypertension, dyslipidemia, and right diaphragmatic paralysis who presented for T10 to Pelvis decompression and fusion with revision. Blood loss and the case was approximately 1900 mL. During her operative course she required phenylephrine IV infusion, Vasopressin IVP. She also received TXA gtt. She received 7 L of lactated Ringer's. She received 1 amp of sodium bicarb intaop. She also received albumin. Her operative course was complicated with a cardiac arrest. During the case she developed A. fib with RVR and then quickly transitioned into bradycardia with a low end-tidal CO2. She received 0.4 of atropine and CPR was started. She received epinephrine 0.5. She achieved ROSC. Total down time was less than 5 minutes. She was extubated on 02/25. She continued to do well with struggled with pain. She was downgraded from ICU on 03/03. She was evaluated by PMR, awaiting inpatient rehab. On 03/07, patient was noted to be hypotensive with elevated WBC count of 42.3, with worsening renal function and hyperkalamia. Patient was treated with NS bolus, IV insulin/D50, Albuterol and sodium bicarbonate. She was transferred back to the ICU for septic shock requiring Levophed. Started on Vancomycin and Cefepime, blood and urine cultures were positive for Enterobacter. ID was consulted and she was continued on Cefepime while Vancomycin was discontinued. Levophed was able to be weaned off. Her hemoglobin continued to drop, she requ ired a total of [address] AP was ordered which showed a large right chest hematoma and dilated small bowel concerning for ileus. CT surgery was consulted and recommended conservative management for chest hematoma. NG tube was inserted and patient undewent EGD. EGD showed mild gastritis and esophagitis, she was continued to Protonix. Patient underwent irrigation of debridement of the thoracolumbar and pelvic skin, soft tissue, muscle, bone and spine along with dural repair with patch graft L1 on 03/09. Her hyponatremia and BETHANY resolved with IV hydration. She was started on Lasix IV for volume overload during fluid resuscitation for sepsis. 03/21 Patient was seen and examined. No acute events overnight. Patient reports vertigo like symptoms have resolved. CT head was performed yesterday and was negative for acute findings. She reports palpitations and a pounding sensation in her chest. She also reports shortness of breath, though improved. BP low this morning 90s/30s which has improved on recheck. 03/22 Patient was seen and examined. No acute events overnight. Patient reports improvement in palpitations. She reports lower back pain and radiculopathy. Pain is spastic in nature, 10 out of 10 in severity. Cleared by orthopedic surgery to get out of bed She'll be working with PT today. 03/23 Patient was seen and examined. No acute events overnight. Able to sit up on the side of the bed with PT and OT yesterday. Pain is 5/10 in severity today. She has no other complaints. 03/24 Patient was seen and examined. No acute events overnight. Plans to work with PT and OT today. Pain is well controlled. She has no complaints. WBC count 13.9 today. Nursing yesterday reported maroon colored stools but has since resolved. 03/25 Patient seen and examined. No acute events overnight. Nursing reports continued black tarry stool. Hemoglobin appears stable. 03/26 Patient seen and examined. No acute events overnight. Patient reports well controlled pain. Son at bedside. General: ill appearing, mild distress due to pain, appears at stated age, lethargic Derm: warm, dry Head: atraumatic, normocephalic, symmetric Eyes: EOMI, no lid lag, anicteric sclera Mouth: no lip lesion, dry membranes moist Cardiovascular: S1S2 irregular, no murmur Lungs: Decreased BS bilateral, rales noted at the bases, no accessory muscle use Ext: no gross muscle atrophy, 1+ LE edema, no contractures Abd: External catheter in place. Obese. Non tender to palpation. Neuro: Moving all 4 extremities independently, sensation intact to touch BL LE Psych: Alert, oriented, appropriate affect #Septic shock, Enterobacter cloacae bacteremia #Enterobacter cloacae bacteremia with likly source UTI #Enterobacter cloacae UTI #Lactic acidosis Currently off mechanical ventilation and pressors. Completed a course of cefepime. Blood cultures + Enterobacter cloacae. Urine culture + Enterobacter cloacae. Reculture wound due to new leukocytosis, restart Cefazolin empirically. Telemetry monitoring. Infectious disease and Pulmonology/ICU on board. #Acute on Chronic Systolic CHF Echo shows EF 35-40% with severe pulmonary HTN, moderate MR. Patient will need ischemic workup. Continue Metoprolol. Patient started on ACEi and Aldactone (held this morning due to hypotension) Lasix 40 mg PO QD. Strict intake and outtake. Cardiology on board. #Prerenal azotemia #Hyponatremia Na 126, BUN 44 Possibly related to diarrhea and forced diuresis with Lasix Renal US shows on hydronephrosis on the R, enlarged cyst in the L kidney measuring up to 8.3 cm. BETHANY likely due to ATN from septic shock and hypoNa from poor oral intake. Nephrology on board. #Hyperkalemia #Metabolic acidosis Dose of sodium bicarbonate given today. Started on sodium bicarbonate by mouth. Aldactone discontinued. Repeat BMP tomorrow morning. #Hyperglycemia likely secondary to steroids No official DM diagnosis Levemir 20 units daily. Sliding scale. A1c is 6, likely prediabetic, will benefit from metformin upon discharge. #Acute blood loss anemia #Right breast hematoma #GI bleed, concern for ischemic bowel s/p 7 unit PRBC. EGD showed mild gastritis and mild esophagitis with no active bleeding. Restart Xarelto. CT surgery recommends conservative managment of hematoma. Monitor hemoglobin. Continue Ferrlecit. Transfuse if Hg < 7. #Transaminitis Obstructive LFTs. Likely ischemic hepatitis. Improved. #Atrial fibrillation Restarted on Xarelto. Continue Amiodarone, Metoprolol. Cardiology on board. #Abdominal pain #IIeus versus SBO Advance diet as tolerated. General surgery on board. #T10 to pelvis decompression with fusion #Post-op pain Management per Orthopedic surgery. Gabapentin, Valium, Flexeril. Decadron. Continue with Dilaudid and Percocet PRN. Patient has no stairs and planning on going home, she has nearby help from family but lives alone. Patient currently on bed rest. Awaiting for orthopedic surgery to clear patient for PT OT PT and OT consulted. PMR consulted. #Right diaphragmatic paralysis Aggressive pulmonary hygiene. Pulmonology on board. #HLD Statin. #HTN Continue Metoprolol, Lisinopril. Aldactone held today due to hyperkalemia. Monitor vitals and adjust medication if necessary. Plans for SNF possibly in the next 1-2 days. Objective - Vital Signs Vital signs: Vital Signs Temp 97.9 F 12/25/22 10:25 Pulse 124 H 03/26/22 10:25 Resp 18 03/26/22 10:25 BP 124/78 03/26/22 10:25 Pulse Ox 97 03/26/22 10:25 FiO2 35 03/10/22 10:13 Intake & Output 03/25/22 03/26/22 03/26/22 18:59 06:59 18:59 Intake Total 100 500 240 Balance 100 500 240 Intake: Intake, IV Titration 100 Amount Caffeine-Sodium Benzoate 100 500 mg In Sodium Chloride 0.9% 100 ml @ 102 mls/hr IVPB DAILY [facility] Rx#: [id number] Oral 500 240 Other: Voiding Method External Catheter External Catheter External Catheter # Voids 3 # Bowel Movements 1 1 ABP, PAP, CO, CI - Last Documented Arterial Blood Pressure 158/70 - Labs CBC & Chem 7: 03/26/22 07:43 03/26/22 07:43 Labs: Abnormal Lab Results - Last 24 Hours (Table) 03/25/22 03/25/22 03/26/22 Range/Units 16:24 20:18 06:28 WBC (3.8-10.6) k/uL RBC (3.80-5.40) m/uL RDW (11.5-15.5) % Sodium (137-145) mmol/L Potassium (3.5-5.1) mmol/L Carbon Dioxide (22-30) mmol/L BUN (7-17) mg/dL Glucose (74-99) mg/dL POC Glucose (mg/dL) 164 H 149 H 154 H (70-110) mg/dL Calcium (8.4-10.2) mg/dL 03/26/22 03/26/22 03/26/22 Range/Units 07:43 07:43 12:23 WBC 15.9 H (3.8-10.6) k/uL RBC 3.75 L (3.80-5.40) m/uL RDW 18.6 H (11.5-15.5) % Sodium 126 L (137-145) mmol/L Potassium 5.4 H (3.5-5.1) mmol/L Carbon Dioxide 18 L (22-30) mmol/L BUN 44 H (7-17) mg/dL Glucose 146 H (74-99) mg/dL POC Glucose (mg/dL) 158 H (70-110) mg/dL Calcium 8.0 L (8.4-10.2) mg/dL
--- NOTE | 2022-03-26 14:14 | P.PN ---
Subjective Progress Note Date: 03/26/22 Principal diagnosis: UTI and bacteremia Patient is a 71-year-old female with a past medical history difficult for atrial fibrillation flutter hypertension hyperlipidemia hypothyroidism right breast cancer electively admitted to the hospital more than 2 weeks ago 022 for T10 to lumbar spine revision decompression and posterior lateral interbody fusion, patient did have a episode of hypotension and elevated white count requiring admission to the ICU patient did have a positive UA and gram- negative bacteremia and is scheduled for exploration of the thoracolumbar incision completed on 03/09/2022 with apparently no evidence of any abscess On today's evaluation that is 03/26/2022 the patient remains to be afebrile , the patient is breathing comfortably on room air, the patient diarrhea has slowed down by the nursing staff and it was not watery so C. diff testing could not be done, patient noticed to have some maceration at the lower end of incision culture has been obtained by the hospitalist and the patient was started on empiric cefazolin Objective - Vital Signs Vital signs: Vital Signs Temp 97 F L 03/26/22 12:30 Pulse 103 H 03/26/22 12:30 Resp 16 03/26/22 12:30 BP 115/55 03/26/22 12:30 Pulse Ox 96 03/26/22 12:30 FiO2 35 03/10/22 10:13 Intake & Output 03/25/22 03/26/22 03/26/22 18:59 06:59 18:59 Intake Total 100 500 240 Balance 100 500 240 Intake: Intake, IV Titration 100 Amount Caffeine-Sodium Benzoate 100 500 mg In Sodium Chloride 0.9% 100 ml @ 102 mls/hr IVPB DAILY [facility] Rx#: [id number] Oral 500 240 Other: Voiding Method External Catheter External Catheter External Catheter # Voids 3 1 # Bowel Movements 1 1 0 ABP, PAP, CO, CI - Last Documented Arterial Blood Pressure 158/70 - Exam GENERAL DESCRIPTION: An elderly female lying in bed in no distress RESPIRATORY SYSTEM: Unlabored breathing , decreased breath sounds at bases HEART: S1 S2 regular rate and rhythm , ABDOMEN: Soft , no tenderness Thoracolumbar spine upper incision stitches are out incision is healed minimal maceration of the lower end EXTREMITIES: Diffuse swelling bilateral lower extremity - Labs CBC & Chem 7: 03/26/22 07:43 03/26/22 07:43 Labs: Abnormal Lab Results - Last 24 Hours (Table) 03/25/22 03/25/22 03/26/22 Range/Units 16:24 20:18 06:28 WBC (3.8-10.6) k/uL RBC (3.80-5.40) m/uL RDW (11.5-15.5) % Sodium (137-145) mmol/L Potassium (3.5-5.1) mmol/L Carbon Dioxide (22-30) mmol/L BUN (7-17) mg/dL Glucose (74-99) mg/dL POC Glucose (mg/dL) 164 H 149 H 154 H (70-110) mg/dL Calcium (8.4-10.2) mg/dL 03/26/22 03/26/22 03/26/22 Range/Units 07:43 07:43 12:23 WBC 15.9 H (3.8-10.6) k/uL RBC 3.75 L (3.80-5.40) m/uL RDW 18.6 H (11.5-15.5) % Sodium 126 L (137-145) mmol/L Potassium 5.4 H (3.5-5.1) mmol/L Carbon Dioxide 18 L (22-30) mmol/L BUN 44 H (7-17) mg/dL Glucose 146 H (74-99) mg/dL POC Glucose (mg/dL) 158 H (70-110) mg/dL Calcium 8.0 L (8.4-10.2) mg/dL Assessment and Plan (1) Gram-negative bacteremia Current Visit: Yes Status: Acute Code(s): R78.81 - BACTEREMIA SNOMED Code(s): 206281820996 Plan: 1patient with SIRS/sepsis in this patient who has been in the hospital for 2 weeks with elective admission to the hospital for thoracolumbar spine revision d id have a cardiac arrest requiring resuscitation , patient did have evidence of Enterobacter UTI with secondary bacteremia for which the patient has completed her antibiotic therapy 2patient with diarrhea seemed to have responded to Questran to continue 3elevated white count and concern for possible laceration of the lower end of the incision cultures obtained per hospitalist of urine. Blood cultures CRP and sed rate may continue empiric cefazolin at this point Time with Patient: Less than 30
[2022-03-26 17:04] LABS: Glucose,Whole Blood 154 mg/dL (70-110)
[2022-03-26 19:45] LABS: Glucose,Whole Blood 172 mg/dL (70-110)
[2022-03-26] MEDS: CYCLOBENZAPRINE 10 MG TAB PO PRN (22:31)
[2022-03-27] MEDS: ACETAMINOPHEN TAB 500 MG TAB PO SCH ×4 (03:32→17:31)
[2022-03-27] MEDS: SODIUM CHLORIDE 0.9% 1,000 ML IV SCH (04:32)
[2022-03-27 05:53] LABS: Glucose,Whole Blood 151 mg/dL (70-110)
[2022-03-27] MEDS: INSULIN ASPART (NovoLOG) 100 UNIT/ML VIAL SQ SCH ×4 (06:24→21:25)
[2022-03-27] MEDS: LEVOTHYROXINE 88 MCG TAB PO SCH (06:38)
[2022-03-27] MEDS: INSULIN DETEMIR (LEVEMIR) 100 UNIT/ML SYR SQ SCH (06:38)
[2022-03-27 08:55] LABS: ALT 39 U/L (4-34); AST 33 U/L (14-36); African American GFR (CKD) >90 (>60 ml/min/1.73 sqM); Albumin 2.7 g/dL (3.5-5.0); Alkaline Phosphatase 99 U/L (38-126); Anion Gap 1 mmol/L; Blood Urea Nitrogen 35 mg/dL (7-17); Carbon Dioxide 24 mmol/L (22-30); Chloride 103 mmol/L (98-107); Glucose 135 mg/dL (74-99); LDH 974 U/L (313-618); Magnesium 2.1 mg/dL (1.6-2.3); Non-African American GFR(CKD) >90 (>60 ml/min/1.73 sqM); Potassium 5.1 mmol/L (3.5-5.1); Sodium 128 mmol/L (137-145); Total Bilirubin 1.2 mg/dL (0.2-1.3); Total Protein 5.1 g/dL (6.3-8.2)
[2022-03-27 08:58] LABS: Anisocytosis Slight; HCT 31.8 % (34.0-46.0); HGB 10.8 gm/dL (11.4-16.0); MCH 31.4 pg (25.0-35.0); Mean Platelet Volume 9.6; Platelet Count 231 k/uL (150-450); Poikilocytosis Moderate; RBC 3.44 m/uL (3.80-5.40); WBC 15.9 k/uL (3.8-10.6)
[2022-03-27 09:03] LABS: MCV 92.4 fL (80.0-100.0)
[2022-03-27 09:20] LABS: Monocytes # (M) 0.48 k/uL (0-1.0); Myelocytes # (M) 0.16 k/uL (0); Myelocytes % 1 %; Neutrophils # (M) 14.63 k/uL (1.3-7.7); Neutrophils % (M) 92 %; Nucleated Red Blood Cells 0 /100 WBC (0-0); Total Cells Counted 200
[2022-03-27 10:10] LABS: C Reactive Protein 13.4 mg/dL (<1.0)
--- NOTE | 2022-03-27 10:15 | P.PN ---
Subjective Principal diagnosis: This is 71-year-old female followed up with hyponatremia. She was given Samsca 15 mg- sodium has been going on from 1:30 on 03/23/2022, 05/03/2079 yesterday and after Samsca has further gone down to 126. patient with SIRS/sepsis in this patient who has been in the hospital for 2 weeks with elective admission to the hospital for thoracolumbar spine revision did have a cardiac arrest requiring resuscitation , patient did have evidence of Enterobacter UTI with secondary bacteremia for which the patient has completed her antibiotic therapy Currently she remains awake alert but profoundly weak cold and clammy. Vital signs stable except for a heart rate of 110s 24-hour intake is 250 mL intake and output of 400 mL spoke to the nurses and she is not eating well. Maybe 20%. She is on supplement 1 can 3 times a day Objective - Vital Signs Vital signs: Vital Signs Temp 98.4 F 03/27/22 04:00 Pulse 119 H 03/27/22 04:00 Resp 18 03/27/22 04:00 BP 112/55 03/27/22 04:00 Pulse Ox 100 03/27/22 04:00 FiO2 35 03/10/22 10:13 Intake & Output 03/26/22 03/27/22 03/27/22 18:59 06:59 18:59 Intake Total 240 10 Output Total 400 Balance -160 10 Intake: IV 10 Invasive Line 7 10 Oral 240 Output: Urine 400 Other: Voiding Method External Catheter External Catheter External Catheter # Voids 2 1 # Bowel Movements 0 1 ABP, PAP, CO, CI - Last Documented Arterial Blood Pressure 158/70 Awake alert but profoundly weak and cold and clammy. No JVP noted neck is supple no facial asymmetry Lungs are clear to auscultation good air entry bilaterally Heart sounds unremarkable Abdomen soft nontender. Extremity exam was trace edema Neurologically awake alert oriented but profoundly was all her extremities - Labs CBC & Chem 7: 03/27/22 08:34 03/27/22 08:34 Labs: Abnormal Lab Results - Last 24 Hours (Table) 03/26/22 03/26/22 03/26/22 Range/Units 07:43 12:23 16:28 WBC 15.9 H (3.8-10.6) k/uL RBC 3.75 L (3.80-5.40) m/uL Hgb (11.4-16.0) gm/dL Hct (34.0-46.0) % RDW 18.6 H (11.5-15.5) % Neutrophils # (Manual) (1.3-7.7) k/uL Lymphocytes # (Manual) (1.0-4.8) k/uL Myelocytes # (Manual) (0) k/uL ESR 48 H (0-20) mm/hr Sodium (137-145) mmol/L BUN (7-17) mg/dL Glucose (74-99) mg/dL POC Glucose (mg/dL) 158 H (70-110) mg/dL Calcium (8.4-10.2) mg/dL ALT (4-34) U/L Lactate Dehydrogenase (313-618) U/L C-Reactive Protein (<1.0) mg/dL Total Protein (6.3-8.2) g/dL Albumin (3.5-5.0) g/dL 03/26/22 03/26/22 03/26/22 Range/Units 16:28 16:51 19:43 WBC (3.8-10.6) k/uL RBC (3.80-5.40) m/uL Hgb (11.4-16.0) gm/dL Hct (34.0-46.0) % RDW (11.5-15.5) % Neutrophils # (Manual) (1.3-7.7) k/uL Lymphocytes # (Manual) (1.0-4.8) k/uL Myelocytes # (Manual) (0) k/uL ESR (0-20) mm/hr Sodium (137-145) mmol/L BUN (7-17) mg/dL Glucose (74-99) mg/dL POC Glucose (mg/dL) 154 H 172 H (70-110) mg/dL Calcium (8.4-10.2) mg/dL ALT (4-34) U/L Lactate Dehydrogenase (313-618) U/L C-Reactive Protein 7.2 H (<1.0) mg/dL Total Protein (6.3-8.2) g/dL Albumin (3.5-5.0) g/dL 03/27/22 03/27/22 03/27/22 Range/Units 05:52 08:34 08:34 WBC 15.9 H (3.8-10.6) k/uL RBC 3.44 L (3.80-5.40) m/uL Hgb 10.8 L (11.4-16.0) gm/dL Hct 31.8 L (34.0-46.0) % RDW 19.0 H (11.5-15.5) % Neutrophils # (Manual) 14.63 H (1.3-7.7) k/uL Lymphocytes # (Manual) 0.80 L (1.0-4.8) k/uL Myelocytes # (Manual) 0.16 H (0) k/uL ESR (0-20) mm/hr Sodium 128 L (137-145) mmol/L BUN 35 H (7-17) mg/dL Glucose 135 H (74-99) mg/dL POC Glucose (mg/dL) 151 H (70-110) mg/dL Calcium 8.0 L (8.4-10.2) mg/dL ALT 39 H (4-34) U/L Lactate Dehydrogenase 974 H (313-618) U/L C-Reactive Protein 13.4 H (<1.0) mg/dL Total Protein 5.1 L (6.3-8.2) g/dL Albumin 2.7 L (3.5-5.0) g/dL Microbiology - Last 24 Hours (Table) 03/26/22 13:12 Wound Culture - Preliminary Back 03/26/22 17:50 Anaerobic Culture - Preliminary Back Assessment and Plan Assessment: Impression 1. Hyponatremia, possibly from diarrhea but cause is not very clear - did not respond to 15 mg of Samsca yesterday. Possibilities include volume depletion. Unlikely to be congestive heart failure as she is on room air and saturating well and clear lungs. 2. Sepsis with gram-negative bacteremia and urinary tract infection with Enterobacter cloacae on 03/07/2022 3. Mild degree of non-gap acidosis. Likely from diarrhea. Resolved on bicarb 4. Diabetes mellitus blood sugars fairly well controlled. 5. A chest x-ray done on 03/26/2022 was unremarkable except for subsegmental atelectasis Medication 1. Continue to Hold spironolactone. 2. We will monitor labs. 3. Encourage oral intake of proteins. Make sure she takes her protein supplement at least 1 can 3 times a day. Maintain fluid restriction to thousand,
--- NOTE | 2022-03-27 10:40 | P.PN ---
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 She is currently resting in bed. Surgical dressing removed, open to air. Upper portion of incision is well healed. The lower portion remains mildly macerated, cultures have been sent. Patient has had HR of 110-120s, medical in room and will be addressing with medications. Generalized weakness, encouraged patient to be up in chair for all meals today via zulema lift. Would like to get patient to rehab. She denies any fever/chills or chest pain. Objective - Vital Signs Vital signs: Vital Signs Temp 98.4 F 03/27/22 04:00 Pulse 119 H 03/27/22 04:00 Resp 18 03/27/22 04:00 BP 112/55 03/27/22 04:00 Pulse Ox 100 03/27/22 04:00 FiO2 35 03/10/22 10:13 Intake & Output 03/26/22 03/27/22 03/27/22 18:59 06:59 18:59 Intake Total 240 10 Output Total 400 Balance -160 10 Intake: IV 10 Invasive Line 7 10 Oral 240 Output: Urine 400 Other: Voiding Method External Catheter External Catheter External Catheter # Voids 2 1 # Bowel Movements 0 1 ABP, PAP, CO, CI - Last Documented Arterial Blood Pressure 158/70 - Exam PHYSICAL EXAMINATION: General: Awake, alert, appropriate for age, in no acute distress. HEENT: No changes Extremities: Skin warm and dry without no acute lesions, coloration, temperature, skin intact, no tenderness or erythema. Integument: Surgical incisions: Incision open to air, Upper portion of incision is well healed. Lower portion remains sutured with maceration noted. External cath present Palpation: Special findings: pain with palpation of the right breast area with large hematoma noted as well as anterior chest wall. VASCULAR STATUS : Wrist Pulses: [2/4 bilateral radial and ulnar] Pedal Pulses: [2/4 bilateral DP and PT] Color: [Normal] Edema: Improved in arms and hands. NEUROLOGIC EXAMINATION: Mental Status: Awake and alert, oriented,but slow with normal attention, concentration and memory, and fluent, he has slow speech Cranial Nerves: I: Olfactory not tested. II: Visual acuity normal, no visual field deficit noted with confrontation. III,IV: Normal pupillary reflexes & intact extraocular movements without nystagmus. V,: Intact symmetrical facial sensation. VII: Intact symmetrical facial motor movement VIII: Hearing intact. IX,X: Intact gag, swallow, & normal voice. XI: Sternocleidomastoid, trapezius function intact. XII: Tongue midline with normal movements. Special Tests: L'hermitte's Sign: Absent Straight Leg Raising: Absent Bilateral Motor Exam (0-5/5, N/T) STRENGTH 4 out of 5 strength in upper extremity's bilaterally all major muscle groups without focal deficits generalized weakness 3 to 5 strength bilateral lower extremities all major muscle groups with generalized weakness no focal deficits. She is weak in her hip flexors curre ntly. REFLEXES Upper Extremity: RIGHT [2]/4 LEFT [2]/4 Lower Extremity: RIGHT [2]/4 LEFT [2]/4 Pathological Reflexes Warren's: RIGHT [Absent] LEFT [Absent] Babinski: RIGHT [Absent] LEFT [Absent] Clonus: RIGHT [None] LEFT [None] SENSORY Intact Gait and Functional Evaluation: Sit patient at bedside and increase physical activity as tolerated - Labs CBC & Chem 7: 03/27/22 08:34 03/27/22 08:34 Labs: Abnormal Lab Results - Last 24 Hours (Table) 03/26/22 03/26/22 03/26/22 Range/Units 07:43 12:23 16:28 WBC 15.9 H (3.8-10.6) k/uL RBC 3.75 L (3.80-5.40) m/uL Hgb (11.4-16.0) gm/dL Hct (34.0-46.0) % RDW 18.6 H (11.5-15.5) % Neutrophils # (Manual) (1.3-7.7) k/uL Lymphocytes # (Manual) (1.0-4.8) k/uL Myelocytes # (Manual) (0) k/uL ESR 48 H (0-20) mm/hr Sodium (137-145) mmol/L BUN (7-17) mg/dL Glucose (74-99) mg/dL POC Glucose (mg/dL) 158 H (70-110) mg/dL Calcium (8.4-10.2) mg/dL ALT (4-34) U/L Lactate Dehydrogenase (313-618) U/L C-Reactive Protein (<1.0) mg/dL Total Protein (6.3-8.2) g/dL Albumin (3.5-5.0) g/dL 03/26/22 03/26/22 03/26/22 Range/Units 16:28 16:51 19:43 WBC (3.8-10.6) k/uL RBC (3.80-5.40) m/uL Hgb (11.4-16.0) gm/dL Hct (34.0-46.0) % RDW (11.5-15.5) % Neutrophils # (Manual) (1.3-7.7) k/uL Lymphocytes # (Manual) (1.0-4.8) k/uL Myelocytes # (Manual) (0) k/uL ESR (0-20) mm/hr Sodium (137-145) mmol/L BUN (7-17) mg/dL Glucose (74-99) mg/dL POC Glucose (mg/dL) 154 H 172 H (70-110) mg/dL Calcium (8.4-10.2) mg/dL ALT (4-34) U/L Lactate Dehydrogenase (313-618) U/L C-Reactive Protein 7.2 H (<1.0) mg/dL Total Protein (6.3-8.2) g/dL Albumin (3.5-5.0) g/dL 03/27/22 03/27/22 03/27/22 Range/Units 05:52 08:34 08:34 WBC 15.9 H (3.8-10.6) k/uL RBC 3.44 L (3.80-5.40) m/uL Hgb 10.8 L (11.4-16.0) gm/dL Hct 31.8 L (34.0-46.0) % RDW 19.0 H (11.5-15.5) % Neutrophils # (Manual) 14.63 H (1.3-7.7) k/uL Lymphocytes # (Manual) 0.80 L (1.0-4.8) k/uL Myelocytes # (Manual) 0.16 H (0) k/uL ESR (0-20) mm/hr Sodium 128 L (137-145) mmol/L BUN 35 H (7-17) mg/dL Glucose 135 H (74-99) mg/dL POC Glucose (mg/dL) 151 H (70-110) mg/dL Calcium 8.0 L (8.4-10.2) mg/dL ALT 39 H (4-34) U/L Lactate Dehydrogenase 974 H (313-618) U/L C-Reactive Protein 13.4 H (<1.0) mg/dL Total Protein 5.1 L (6.3-8.2) g/dL Albumin 2.7 L (3.5-5.0) g/dL Microbiology - Last 24 Hours (Table) 03/26/22 13:12 Wound Culture - Preliminary Back 03/26/22 17:50 Anaerobic Culture - Preliminary Back Assessment and Plan Assessment: 1. 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 Status post 7 units PRBC and 1 pack platelets -bilateral lower extremity weakness, status post multiple controlled falls in- house -Enterobacter sepsis, UTI -status post cardiac arrest Plan: -Appreciate healthcare management consultant and team management PCC and medicine -Appreciate cardiothoracic, Gen. surgery, nephrology, ID evaluations -Continue Activity: Sit patient at bedside to perform leg exercises. Encourage to increase physical activity as tolerated. -Recommend titration of cardiac medications per cardio -Cont Abx for duration of stay -Caffiene daily 200 mg daily, Fioricet -Pain control: Adequate today ( Tylenol 1000 mg MEHUL, Oxy IR q4 hrs 10-15 mg titrated to pain (pt been on [place] for 20 yrs), Cont Gabapentin,) -Meds: reviewed -Trend labs -Transfusions to vitals -GI ppx: senna, Miralax -Cont with FBS -DVT PPX: Xarelto -Hygiene: Maintain incision clean and dry. Please remove dressing when patient is laying on her side, to allow air to incision. Meticulous cleaning after BMs away from incision site The wound needs to be kept meticulously clean, and dry. -Encourage IS 10x/hr -Will follow
[2022-03-27] MEDS: CYCLOBENZAPRINE 10 MG TAB PO PRN ×2 (10:47→22:13)
[2022-03-27] MEDS: AMIODARONE 200 MG TAB PO SCH (10:47)
[2022-03-27] MEDS: DULoxetine HCL 60 MG CAPSULE.DR PO SCH (10:48)
[2022-03-27] MEDS: SODIUM BICARBONATE TAB 650 MG TAB PO SCH ×2 (10:48→21:25)
[2022-03-27] MEDS: METOPROLOL SUCCINATE (ER) 25 MG TAB.ER.24H PO SCH ×3 (10:48→21:24)
[2022-03-27] MEDS: GABAPENTIN 400 MG CAP PO SCH ×3 (10:48→21:25)
[2022-03-27] MEDS: ATORVASTATIN 10 MG TAB PO SCH (10:48)
[2022-03-27] MEDS: FUROSEMIDE 40 MG TAB PO SCH (10:48)
[2022-03-27] MEDS: DEXAMETHASONE SOD PHOSPHATE 4 MG/ML 1 ML VIAL IVP SCH ×2 (10:49→17:36)
[2022-03-27] MEDS: lisinopriL 5 MG TAB PO SCH (10:49)
[2022-03-27] MEDS: CHOLESTYRAMINE (WITH SUGAR) 4 GM PACKET PO SCH ×2 (10:49→17:36)
[2022-03-27] MEDS: PANTOPRAZOLE 40 MG/10 ML VIAL IVP SCH (10:49)
[2022-03-27] MEDS: MAG HYDROX/AL HYDROX/SIMETH 30 ML, diphenhydrAMINE ELIXIR 75 MG, LIDOCAINE VISCOUS 2% 3... PO SCH ×9 (11:18→21:25)
[2022-03-27 12:07] LABS: Glucose,Whole Blood 128 mg/dL (70-110)
--- NOTE | 2022-03-27 12:36 | P.PN ---
Subjective Progress Note Date: 03/27/22 Hospital course: Patient is a 71 yo CF with a hx of A fib s/p ablation, GERD, hypertension, dyslipidemia, and right diaphragmatic paralysis who presented for T10 to Pelvis decompression and fusion with revision. Blood loss and the case was approximately 1900 mL. During her operative course she required phenylephrine IV infusion, Vasopressin IVP. She also received TXA gtt. She received 7 L of lactated Ringer's. She received 1 amp of sodium bicarb intaop. She also received albumin. Her operative course was complicated with a cardiac arrest. During the case she developed A. fib with RVR and then quickly transitioned into bradycardia with a low end-tidal CO2. She received 0.4 of atropine and CPR was started. She received epinephrine 0.5. She achieved ROSC. Total down time was less than 5 minutes. She was extubated on 02/25. She continued to do well with struggled with pain. She was downgraded from ICU on 03/03. On 03/06/22 patient was noted to have a significant drop in hemoglobin from 10.0 down to 7.5 and upon reevaluation on 03/07 was found to have hemoglobin of 5.4, patient required multiple transfusions. She has received a total of 7 units PRBCs and 1 unit of platelets. She underwent a CT abdomen and pelvis and was found to have a large right chest hematoma dilated small bowel concerning for ileus. Patient was evaluated by cardiothoracic surgery and they recommended conservative management. On 03/07, patient was noted to be hypotensive with elevated WBC count of 42.3, with worsening renal function and hyperkalamia. Patient was treated with NS bolus, IV insulin/D50, Albuterol and sodium bicarbonate. She was transferred back to the ICU for septic shock requiring Levophed. Patient was started on Vancomycin and Cefepime. Blood and urine cultures were obtained and positive for Enterobacter. Infectious disease was consulted and patient was continued on Cefepime for treatment of Enterobacter UTI with secondary bacteremia and Vancomycin was discontinued. Patient was later weaned off of vasopressors and again transferred out of the ICU. Patient was started on Lasix for treatment of acute on chronic systolic heart failure with EF of 35-40%. Patient continued on Protonix for GI prophylaxis, amiodarone and metoprolol for atrial fibrillation with RVR sodium bicarb for treatment of metabolic acidosis. Pt's Xarelto remains hold at this time. Patient was evaluated by PMR and is currently not a candidate for inpatient rehab. She has been cleared by orthopedic surgery to start working with physical therapy and current plans are for patient to be discharged to half-way facility for continued rehab. On 03/26/22 patient was again found to have elevating leukocytosis and repeat Wound cultures were obtained and showing no growth to date. Orthopedic Sx reports Plan is for likely discharge within the next 24-48 hours to half-way facility for rehab. Physical examination: Patient seen and fully evaluated at bedside this morning. Orthospine surgery team also at bedside and remove surgical dressing at this time recommending incision be left open to air secondary to maceration and seepage. Patient currently reports pain is controlled. External Warren catheter is in place and patient urinating without any difficulties. Patient had bowel movement this mor sean with no reported signs of hematochezia or melena noted. Patient reports having a decent appetite and denies feeling any numbness/tingling in her extremities. Upon review of documented output patient only has a documented 400 mL of urinary output over the past 24 hours. RN reports this is falls secondary to difficulties with external catheter and patient frequently urinating and brief. Discussed with RN importance of documenting additional episodes of incontinence or urinating in brief to ensure patient is continuing to have adequate urinary output. Patient and RN report moderate urinary output . General: ill appearing, mild distress due to pain, appears at stated age, Derm: warm, dry. Surgical incision intact with sutures remaining in place to lower portion of surgical incision secondary to mild maceration to the lower portion of incision with mild serosanguineous drainage on dressing, surgical dressing removed at this time and orthospine surgery recommending surgical incis ion be left to be open to air. Head: atraumatic, normocephalic, symmetric Eyes: EOMI, no lid lag, anicteric sclera Mouth: no lip lesion, dry membranes moist Cardiovascular: S1S2 irregular, no murmur Lungs: Respirations even, regular, and unlabored on room air. Lungs clear to auscultation bilaterally Ext: no gross muscle atrophy, 1+ LE edema, no contractures Abd: External catheter in place. Obese. Non tender to palpation. Neuro: Moving all 4 extremities independently, sensation and movement equal and intact in bilateral lower extremities. Bilateral lower extremity weakness is equal, likely secondary to bedridden state for the past 31 days. Psych: Alert, oriented, appropriate affect Assessment and plan of care: Septic shock resulting from Enterobacter cloacae UTI with secondary bacteremia Enterobacter cloacae UTI with secondary bacteremia Lactic acidosis -Patient successfully weanedoff mechanical ventilation and pressors. -Completed a course of cefepime. -Blood cultures + Enterobacter cloacae. -Urine culture + Enterobacter cloacae. -03/26/22 Recultured wound due to new leukocytosis, restarted Cefazolin empirically. culture showing no growth to date and empiric antibiotics likely to be discontinued within the next 24 hours. -Telemetry monitoring. -Infectious disease and Pulmonology/ICU on board. Acute on Chronic Systolic CHF -Echo shows EF 35-40% with severe pulmonary HTN, moderate MR. -Cardiology following -Continue amiodarone, metoprolol, and furosemide -Patient initially started on Aldactone but was discontinued secondary to hyperkalemia -Continue close monitoring of I's and O's Prerenal azotemia Hyponatremia -Na 126, BUN 44 -Possibly related to diarrhea and forced diuresis with Lasix -Renal US shows on hydronephrosis on the R, enlarged cyst in the L kidney measuring up to 8.3 cm. -BETHANY likely due to ATN from septic shock and hypoNa from poor oral intake. -Nephrology on board. Hyperkalemia Metabolic acidosis -Continue sodium bicarb 650 mg twice a day -Aldactone and lisinopril discontinued. -Repeat BMP tomorrow morning. Hyperglycemia likely secondary to steroids -No official DM diagnosis -Levemir 20 units daily. -Sliding scale. -A1c is 6, likely prediabetic, will benefit from metformin upon discharge. Acute blood loss anemia Right breast hematoma GI bleed, concern for ischemic bowel -Status post a total of 7 units PRBCs and 1 unit of platelets. -Gen. surgery following anticipation for EGD which revealed gastritis and mild esophagitis with no active bleeding. -Xarelto remains on hold at this time. -CT surgery recommends conservative managment of hematoma. -Monitor hemoglobin and Transfuse as needed if Hgb < 7. Transaminitis Obstructive LFTs. -Likely ischemic hepatitis. -Improved. Atrial fibrillation with RVR -Xarelto remains on hold secondary to GI bleed. -Continue Amiodarone and Metoprolol. -Cardiology following and on 03/24/22 cleared patient from cardiac standpoint for discharge. Abdominal pain, resolved IIeus versus SBO, resolved -Diet was slowly advanced patient tolerating regular carb consistent diet. -Gen. surgery evaluated General surgery on board. T10 to pelvis decompression with fusion Post-op pain -Management per primary admitting Orthopedic surgery team including DVT proph ylaxis, pain management, wound/dressing care, weightbearing, and PT/OT . -ContinueGabapentin, Valium, Flexeril. -Patient remains on Decadron. -PT/OT following. -Plan is for discharge to [facility] for rehab Right diaphragmatic paralysis -Aggressive pulmonary hygiene. -Pulmonology following and cleared patient from their perspective on 03/22/22 Hyperlipidemia -Continue daily medication regimen with atorvastatin. Hypertension -Monitor vital signs and continue daily medication regimen with metoprolol and amiodarone. -Lisinopril and Aldactone was discontinued secondary to hyperkalemia. Orthospine surgery planning for discharge within the next 24-48 hours Thank you for allowing us to participate in the care of this pleasant patient. Do not hesitate to contact us with questions. Someone can be reached from the [facility] hospitalist group all hours of the day at [phone] or via [employer]. Laron Werner NP rendered care for this patient independently, reviewed the findings and plan as documented in the note above. I did not physically speak with or examine the patient on this date. Objective - Vital Signs Vital signs: Vital Signs Temp 98.4 F 03/27/22 04:00 Pulse 119 H 03/27/22 04:00 Resp 18 03/27/22 04:00 BP 112/55 03/27/22 04:00 Pulse Ox 100 03/27/22 04:00 FiO2 35 03/10/22 10:13 Intake & Output 03/26/22 03/27/22 03/27/22 18:59 06:59 18:59 Intake Total 240 10 Output Total 400 Balance -160 10 Intake: IV 10 Invasive Line 7 10 Oral 240 Output: Urine 400 Other: Voiding Method External Catheter External Catheter # Voids 2 1 # Bowel Movements 0 1 ABP, PAP, CO, CI - Last Documented Arterial Blood Pressure 158/70 - Labs CBC & Chem 7: 03/28/22 09:44 03/27/22 08:34 Labs: Abnormal Lab Results - Last 24 Hours (Table) 03/26/22 03/26/22 03/26/22 Range/Units 07:43 07:43 12:23 WBC 15.9 H (3.8-10.6) k/uL RBC 3.75 L (3.80-5.40) m/uL RDW 18.6 H (11.5-15.5) % ESR (0-20) mm/hr Sodium 126 L (137-145) mmol/L Potassium 5.4 H (3.5-5.1) mmol/L Carbon Dioxide 18 L (22-30) mmol/L BUN 44 H (7-17) mg/dL Glucose 146 H (74-99) mg/dL POC Glucose (mg/dL) 158 H (70-110) mg/dL Calcium 8.0 L (8.4-10.2) mg/dL C-Reactive Protein (<1.0) mg/dL 03/26/22 03/26/22 03/26/22 Range/Units 16:28 16:28 16:51 WBC (3.8-10.6) k/uL RBC (3.80-5.40) m/uL RDW (11.5-15.5) % ESR 48 H (0-20) mm/hr Sodium (137-145) mmol/L Potassium (3.5-5.1) mmol/L Carbon Dioxide (22-30) mmol/L BUN (7-17) mg/dL Glucose (74-99) mg/dL POC Glucose (mg/dL) 154 H (70-110) mg/dL Calcium (8.4-10.2) mg/dL C-Reactive Protein 7.2 H (<1.0) mg/dL 03/26/22 03/27/22 Range/Units 19:43 05:52 WBC (3.8-10.6) k/uL RBC (3.80-5.40) m/uL RDW (11.5-15.5) % ESR (0-20) mm/hr Sodium (137-145) mmol/L Potassium (3.5-5.1) mmol/L Carbon Dioxide (22-30) mmol/L BUN (7-17) mg/dL Glucose (74-99) mg/dL POC Glucose (mg/dL) 172 H 151 H (70-110) mg/dL Calcium (8.4-10.2) mg/dL C-Reactive Protein (<1.0) mg/dL
[2022-03-27] MEDS: CAFFEINE-SODIUM BENZOATE 500 MG in SODIUM CHLORIDE 0.9% 100 ML IVPB SCH (13:55)
--- NOTE | 2022-03-27 14:01 | P.PN ---
Subjective Progress Note Date: 03/27/22 Principal diagnosis: UTI and bacteremia Patient is a 71-year-old female with a past medical history difficult for atrial fibrillation flutter hypertension hyperlipidemia hypothyroidism right breast cancer electively admitted to the hospital more than 2 weeks ago 022 for T10 to lumbar spine revision decompression and posterior lateral interbody fusion, patient did have a episode of hypotension and elevated white count requiring admission to the ICU patient did have a positive UA and gram- negative bacteremia and is scheduled for exploration of the thoracolumbar incision completed on 03/09/2022 with apparently no evidence of any abscess On today's evaluation that is 03/27/2022 the patient continues to be afebrile , the patient is breathing comfortably on room air, the patient diarrhea has decreased in frequency, patient noticed to have some maceration at the lower end of incision and minimal drainage per the nursing staff patient denies any worsening pain no nausea no vomiting Objective - Vital Signs Vital signs: Vital Signs Temp 98.4 F 03/27/22 04:00 Pulse 119 H 03/27/22 04:00 Resp 18 03/27/22 04:00 BP 112/55 03/27/22 04:00 Pulse Ox 100 03/27/22 04:00 FiO2 35 03/10/22 10:13 Intake & Output 03/26/22 03/27/22 03/27/22 18:59 06:59 18:59 Intake Total 240 10 Output Total 400 Balance -160 10 Intake: IV 10 Invasive Line 7 10 Oral 240 Output: Urine 400 Other: Voiding Method External Catheter External Catheter External Catheter # Voids 2 1 # Bowel Movements 0 1 ABP, PAP, CO, CI - Last Documented Arterial Blood Pressure 158/70 - Exam GENERAL DESCRIPTION: An elderly female lying in bed in no distress RESPIRATORY SYSTEM: Unlabored breathing , decreased breath sounds at bases HEART: S1 S2 regular rate and rhythm , ABDOMEN: Soft , no tenderness Thoracolumbar spine upper incision stitches are out incision is healed minimal maceration of the lower end no purulent drainage was noticed EXTREMITIES: Diffuse swelling bilateral lower extremity - Labs CBC & Chem 7: 03/27/22 08:34 03/27/22 08:34 Labs: Abnormal Lab Results - Last 24 Hours (Table) 03/26/22 03/26/22 03/26/22 Range/Units 07:43 12:23 16:28 WBC 15.9 H (3.8-10.6) k/uL RBC 3.75 L (3.80-5.40) m/uL Hgb (11.4-16.0) gm/dL Hct (34.0-46.0) % RDW 18.6 H (11.5-15.5) % Neutrophils # (Manual) (1.3-7.7) k/uL Lymphocytes # (Manual) (1.0-4.8) k/uL Myelocytes # (Manual) (0) k/uL ESR 48 H (0-20) mm/hr Sodium (137-145) mmol/L BUN (7-17) mg/dL Glucose (74-99) mg/dL POC Glucose (mg/dL) 158 H (70-110) mg/dL Calcium (8.4-10.2) mg/dL ALT (4-34) U/L Lactate Dehydrogenase (313-618) U/L C-Reactive Protein (<1.0) mg/dL Total Protein (6.3-8.2) g/dL Albumin (3.5-5.0) g/dL 03/26/22 03/26/22 03/26/22 Range/Units 16:28 16:51 19:43 WBC (3.8-10.6) k/uL RBC (3.80-5.40) m/uL Hgb (11.4-16.0) gm/dL Hct (34.0-46.0) % RDW (11.5-15.5) % Neutrophils # (Manual) (1.3-7.7) k/uL Lymphocytes # (Manual) (1.0-4.8) k/uL Myelocytes # (Manual) (0) k/uL ESR (0-20) mm/hr Sodium (137-145) mmol/L BUN (7-17) mg/dL Glucose (74-99) mg/dL POC Glucose (mg/dL) 154 H 172 H (70-110) mg/dL Calcium (8.4-10.2) mg/dL ALT (4-34) U/L Lactate Dehydrogenase (313-618) U/L C-Reactive Protein 7.2 H (<1.0) mg/dL Total Protein (6.3-8.2) g/dL Albumin (3.5-5.0) g/dL 03/27/22 03/27/22 03/27/22 Range/Units 05:52 08:34 08:34 WBC 15.9 H (3.8-10.6) k/uL RBC 3.44 L (3.80-5.40) m/uL Hgb 10.8 L (11.4-16.0) gm/dL Hct 31.8 L (34.0-46.0) % RDW 19.0 H (11.5-15.5) % Neutrophils # (Manual) 14.63 H (1.3-7.7) k/uL Lymphocytes # (Manual) 0.80 L (1.0-4.8) k/uL Myelocytes # (Manual) 0.16 H (0) k/uL ESR (0-20) mm/hr Sodium 128 L (137-145) mmol/L BUN 35 H (7-17) mg/dL Glucose 135 H (74-99) mg/dL POC Glucose (mg/dL) 151 H (70-110) mg/dL Calcium 8.0 L (8.4-10.2) mg/dL ALT 39 H (4-34) U/L Lactate Dehydrogenase 974 H (313-618) U/L C-Reactive Protein 13.4 H (<1.0) mg/dL Total Protein 5.1 L (6.3-8.2) g/dL Albumin 2.7 L (3.5-5.0) g/dL Microbiology - Last 24 Hours (Table) 03/26/22 13:12 Wound Culture - Preliminary Back 03/26/22 17:50 Anaerobic Culture - Preliminary Back Assessment and Plan (1) Gram-negative bacteremia Current Visit: Yes Status: Acute Code(s): R78.81 - BACTEREMIA SNOMED Code(s): 667463121313 Plan: 1patient with SIRS/sepsis in this patient who has been in the hospital for 2 weeks with elective admission to the hospital for thoracolumbar spine revision did have a cardiac arrest requiring resuscitation , patient did have evidence of Enterobacter UTI with secondary bacteremia for which the patient has completed her antibiotic therapy 2patient with diarrhea seemed to have responded to Questran to continue 3elevated white count and concern for possible maceration of the lower end of the incision cultures obtained per hospitalist which are currently pending, Blood cultures currently pending, with elevated CRP we will switch antibiotic over to doxycycline while waiting for cultures to finalize Time with Patient: Less than 30
[2022-03-27 16:51] LABS: Glucose,Whole Blood 198 mg/dL (70-110)
[2022-03-27] MEDS: DOXYCYCLINE 100 MG CAP PO SCH ×2 (18:10→21:25)
[2022-03-27 20:19] LABS: Glucose,Whole Blood 231 mg/dL (70-110)
[2022-03-27] MEDS ORDERED: DOXYCYCLINE 100 MG CAP PO SCH (21:00)
[2022-03-28] MEDS: DEXAMETHASONE SOD PHOSPHATE 4 MG/ML 1 ML VIAL IVP SCH ×2 (01:04→09:17)
[2022-03-28] MEDS: ACETAMINOPHEN TAB 500 MG TAB PO SCH ×5 (01:05→23:47)
[2022-03-28] MEDS: SODIUM CHLORIDE 0.9% 1,000 ML IV SCH (03:48)
[2022-03-28] MEDS: LEVOTHYROXINE 88 MCG TAB PO SCH (06:02)
[2022-03-28] MEDS: CYCLOBENZAPRINE 10 MG TAB PO PRN (06:02)
[2022-03-28 06:10] LABS: Glucose,Whole Blood 90 mg/dL (70-110)
[2022-03-28] MEDS: INSULIN ASPART (NovoLOG) 100 UNIT/ML VIAL SQ SCH ×4 (06:10→21:08)
--- NOTE | 2022-03-28 07:57 | P.PN ---
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 She is currently resting in bed. Surgical incision is open to air. Upper portion of incision is well healed. The lower portion remains mildly macerated. Generalized weakness, continue with encouragement for patient to be up in chair for all meals via zulema lift. Would like to get patient to rehab, awaiting medical clearance. She denies any fever/chills or chest pain. Objective - Vital Signs Vital signs: Vital Signs Temp 97.9 F 03/28/22 00:00 Pulse 110 H 03/28/22 00:00 Resp 16 03/28/22 00:00 BP 109/63 03/28/22 04:00 Pulse Ox 94 L 03/28/22 00:00 FiO2 35 03/10/22 10:13 Intake & Output 03/27/22 03/28/22 03/28/22 18:59 06:59 18:59 Intake Total 200 Output Total 600 500 Balance -400 -500 Intake: Oral 200 Output: Urine 600 500 Other: Voiding Method External Catheter External Catheter # Voids 3 1 # Bowel Movements 1 1 ABP, PAP, CO, CI - Last Documented Arterial Blood Pressure 158/70 - Exam PHYSICAL EXAMINATION: General: Awake, alert, appropriate for age, in no acute distress. HEENT: No changes Extremities: Skin warm and dry without no acute lesions, coloration, temperature, skin intact, no tenderness or erythema. Integument: Surgical incisions: Incision open to air, Upper portion of incision is well healed. Lower portion remains sutured with maceration noted. External cath present Palpation: Special findings: mild discomfort with palpation of the right breast area with healing hematoma noted as well as anterior chest wall. VASCULAR STATUS : Wrist Pulses: [2/4 bilateral radial and ulnar] Pedal Pulses: [2/4 bilateral DP and PT] Color: [Normal] Edema: Improved in arms and hands. NEUROLOGIC EXAMINATION: Mental Status: Awake and alert, oriented,but slow with normal attention, concentration and memory, and fluent, he has slow speech Cranial Nerves: I: Olfactory not tested. II: Visual acuity normal, no visual field deficit noted with confrontation. III,IV: Normal pupillary reflexes & intact extraocular movements without nystagmus. V,: Intact symmetrical facial sensation. VII: Intact symmetrical facial motor movement VIII: Hearing intact. IX,X: Intact gag, swallow, & normal voice. XI: Sternocleidomastoid, trapezius function intact. XII: Tongue midline with normal movements. Special Tests: L'hermitte's Sign: Absent Straight Leg Raising: Absent Bilateral Motor Exam (0-5/5, N/T) STRENGTH 4- out of 5 strength in upper extremity's bilaterally all major muscle groups without focal deficits generalized weakness 3 to 5 strength bilateral lower extremities all major muscle groups with generalized weakness no focal deficits. She is weak in her hip flexors currently. REFLEXES Upper Extremity: RIGHT [2]/4 LEFT [2]/4 Lower Extremity: RIGHT [2]/4 LEFT [2]/4 Pathological Reflexes Warren's: RIGHT [Absent] LEFT [Absent] Babinski: RIGHT [Absent] LEFT [Absent] Clonus: RIGHT [None] LEFT [None] SENSORY Intact Gait and Functional Evaluation: Sit patient at bedside and increase physical activity as tolerated - Labs CBC & Chem 7: 03/27/22 08:34 03/27/22 08:34 Labs: Abnormal Lab Results - Last 24 Hours (Table) 03/27/22 03/27/22 03/27/22 Range/Units 08:34 08:34 12:06 WBC 15.9 H (3.8-10.6) k/uL RBC 3.44 L (3.80-5.40) m/uL Hgb 10.8 L (11.4-16.0) gm/dL Hct 31.8 L (34.0-46.0) % RDW 19.0 H (11.5-15.5) % Neutrophils # (Manual) 14.63 H (1.3-7.7) k/uL Lymphocytes # (Manual) 0.80 L (1.0-4.8) k/uL Myelocytes # (Manual) 0.16 H (0) k/uL Sodium 128 L (137-145) mmol/L BUN 35 H (7-17) mg/dL Glucose 135 H (74-99) mg/dL POC Glucose (mg/dL) 128 H (70-110) mg/dL Calcium 8.0 L (8.4-10.2) mg/dL ALT 39 H (4-34) U/L Lactate Dehydrogenase 974 H (313-618) U/L C-Reactive Protein 13.4 H (<1.0) mg/dL Total Protein 5.1 L (6.3-8.2) g/dL Albumin 2.7 L (3.5-5.0) g/dL 03/27/22 03/27/22 Range/Units 16:49 20:17 WBC (3.8-10.6) k/uL RBC (3.80-5.40) m/uL Hgb (11.4-16.0) gm/dL Hct (34.0-46.0) % RDW (11.5-15.5) % Neutrophils # (Manual) (1.3-7.7) k/uL Lymphocytes # (Manual) (1.0-4.8) k/uL Myelocytes # (Manual) (0) k/uL Sodium (137-145) mmol/L BUN (7-17) mg/dL Glucose (74-99) mg/dL POC Glucose (mg/dL) 198 H 231 H (70-110) mg/dL Calcium (8.4-10.2) mg/dL ALT (4-34) U/L Lactate Dehydrogenase (313-618) U/L C-Reactive Protein (<1.0) mg/dL Total Protein (6.3-8.2) g/dL Albumin (3.5-5.0) g/dL Microbiology - Last 24 Hours (Table) 03/26/22 15:00 Blood Culture - Preliminary Blood No Growth after 24 hours 03/26/22 13:12 Gram Stain - Preliminary Back Wound Culture - Preliminary 03/26/22 17:50 Anaerobic Culture - Preliminary Back Assessment and Plan Assessment: 1. 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 Status post 7 units PRBC and 1 pack platelets -bilateral lower extremity weakness, status post multiple controlled falls in- house -Enterobacter sepsis, UTI -status post cardiac arrest Plan: -Appreciate vocational rehab consultant and team management PCC and medicine -Appreciate cardiothoracic, Gen. surgery, nephrology, ID evaluations -Continue Activity: Sit patient at bedside to perform leg exercises. Encourage to increase physical activity as tolerated. -Recommend titration of cardiac medications per cardio -Cont Abx for duration of stay -Caffiene daily 200 mg daily, Fioricet -Pain control: Adequate today ( Tylenol 1000 mg MEHUL, Oxy IR q4 hrs 10-15 mg titrated to pain (pt been on Skykomish for 20 yrs), Cont Gabapentin,) -Meds: reviewed -Trend labs -Transfusions to vitals -GI ppx: senna, Miralax -Cont with FBS -DVT PPX: Xarelto -Hygiene: Maintain incision clean and dry. Meticulous cleaning after BMs away from incision site The wound needs to be kept meticulously clean, and dry. -Encourage IS 10x/hr -Will follow
[2022-03-28] MEDS: AMIODARONE 200 MG TAB PO SCH (09:17)
[2022-03-28] MEDS: SODIUM BICARBONATE TAB 650 MG TAB PO SCH ×2 (09:17→21:17)
[2022-03-28] MEDS: METOPROLOL SUCCINATE (ER) 25 MG TAB.ER.24H PO SCH ×3 (09:17→23:47)
[2022-03-28] MEDS: GABAPENTIN 400 MG CAP PO SCH ×3 (09:17→21:17)
[2022-03-28] MEDS: FUROSEMIDE 40 MG TAB PO SCH (09:17)
[2022-03-28] MEDS: DULoxetine HCL 60 MG CAPSULE.DR PO SCH (09:17)
[2022-03-28] MEDS: PANTOPRAZOLE 40 MG/10 ML VIAL IVP SCH (09:17)
[2022-03-28] MEDS: INSULIN DETEMIR (LEVEMIR) 100 UNIT/ML SYR SQ SCH (09:18)
[2022-03-28] MEDS: MAG HYDROX/AL HYDROX/SIMETH 30 ML, diphenhydrAMINE ELIXIR 75 MG, LIDOCAINE VISCOUS 2% 3... PO SCH ×9 (09:18→21:19)
[2022-03-28] MEDS: ATORVASTATIN 10 MG TAB PO SCH (09:18)
[2022-03-28] MEDS: DOXYCYCLINE 100 MG CAP PO SCH ×2 (09:18→21:18)
[2022-03-28] MEDS: CHOLESTYRAMINE (WITH SUGAR) 4 GM PACKET PO SCH ×2 (09:18→17:46)
[2022-03-28 10:08] LABS: Anisocytosis Slight; HCT 30.5 % (34.0-46.0); HGB 10.9 gm/dL (11.4-16.0); MCH 32.1 pg (25.0-35.0); MCHC 35.6 g/dL (31.0-37.0); MCV 90.1 fL (80.0-100.0); Mean Platelet Volume 11.6; Poikilocytosis Moderate; RBC 3.39 m/uL (3.80-5.40); RDW 18.8 % (11.5-15.5)
[2022-03-28 11:22] LABS: Band Neutrophils % 2 %; Lymphocytes # (M) 1.06 k/uL (1.0-4.8); Metamyelocytes # (M) 0.35 k/uL (0); Metamyelocytes % 2 %; Monocytes # (M) 0.35 k/uL (0-1.0); Neutrophils % (M) 90 %; Nucleated Red Blood Cells 2 /100 WBC (0-0); Total Cells Counted 200; WBC 17.6 k/uL (3.8-10.6)
[2022-03-28 11:24] LABS: Platelet Count 189 k/uL (150-450); Polychromasia Present
[2022-03-28 11:45] LABS: Glucose,Whole Blood 83 mg/dL (70-110)
--- NOTE | 2022-03-28 12:16 | P.PN ---
Subjective Patient is seen in follow-up for hyponatremia. Sodium level 128 yesterday. Morning labs pending. Currently sitting up in chair. Oral intake is fair. No vomiting or diarrhea. Has external catheter. Nonoliguric. Vital signs are stable. General: Awake. No acute distress. HEENT: Head exam is unremarkable. LUNGS: Breath sounds decreased. HEART: Rate and Rhythm are regular. ABDOMEN: Soft, obese. EXTREMITITES: 1+ edema. Objective - Vital Signs Vital signs: Vital Signs Temp 97.7 F 03/28/22 08:00 Pulse 120 H 03/28/22 08:00 Resp 16 03/28/22 08:00 BP 107/58 03/28/22 08:00 Pulse Ox 94 L 03/28/22 08:00 FiO2 35 03/10/22 10:13 Intake & Output 03/27/22 03/28/22 03/28/22 18:59 06:59 18:59 Intake Total 200 120 Output Total 600 500 Balance -400 -500 120 Weight 127.2 kg Intake: Oral 200 120 Output: Urine 600 500 Other: Voiding Method External Catheter External Catheter External Catheter # Voids 3 1 # Bowel Movements 1 1 ABP, PAP, CO, CI - Last Documented Arterial Blood Pressure 158/70 - Labs CBC & Chem 7: 03/28/22 09:44 03/27/22 08:34 Labs: Abnormal Lab Results - Last 24 Hours (Table) 03/27/22 03/27/22 03/28/22 Range/Units 16:49 20:17 09:44 WBC 17.6 H (3.8-10.6) k/uL RBC 3.39 L (3.80-5.40) m/uL Hgb 10.9 L (11.4-16.0) gm/dL Hct 30.5 L (34.0-46.0) % RDW 18.8 H (11.5-15.5) % Neutrophils # (Manual) 16.10 H (1.3-7.7) k/uL Metamyelocytes # (Man) 0.35 H (0) k/uL Nucleated RBCs 2 H (0-0) /100 WBC POC Glucose (mg/dL) 198 H 231 H (70-110) mg/dL Microbiology - Last 24 Hours (Table) 03/26/22 13:12 Gram Stain - Preliminary Back Wound Culture - Preliminary Gram Neg Bacilli Group D Enterococcus Patsy albicans 03/26/22 15:00 Blood Culture - Preliminary Blood No Growth after 24 hours 03/26/22 17:50 Anaerobic Culture - Preliminary Back Assessment and Plan Plan: Assessment: 1. Hyponatremia. Hypervolemic. Urine sodium was 30 and urine osmolality 515 on 03/08/2022. TSH normal dated 03/09/2022. Cortisol level not low. Status post [facility] this admission. Sodium level 128 yesterday. 2. Enterobacter bacteremia and UTI status. ID following. Also on Questran for diarrhea. 3. Metabolic acidosis secondary to GI losses. On oral bicarb. Improved. 4. Diabetes mellitus. 5. Lower extremity edema on Lasix. Plan: Maintain oral Lasix. 1200 mL fluid restriction. Encourage oral intake. Continue to monitor renal function and urine output. Morning labs pending.
[2022-03-28] MEDS: CAFFEINE-SODIUM BENZOATE 500 MG in SODIUM CHLORIDE 0.9% 100 ML IVPB SCH (12:35)
--- NOTE | 2022-03-28 14:01 | P.PN ---
Subjective Progress Note Date: 03/28/22 Hospital course: Patient is a 71 yo CF with a hx of A fib s/p ablation, GERD, hypertension, dyslipidemia, and right diaphragmatic paralysis who presented for T10 to Pelvis decompression and fusion with revision. Blood loss and the case was approximately 1900 mL. During her operative course she required phenylephrine IV infusion, Vasopressin IVP. She also received TXA gtt. She received 7 L of lactated Ringer's. She received 1 amp of sodium bicarb intaop. She also received albumin. Her operative course was complicated with a cardiac arrest. During the case she developed A. fib with RVR and then quickly transitioned into bradycardia with a low end-tidal CO2. She received 0.4 of atropine and CPR was started. She received epinephrine 0.5. She achieved ROSC. Total down time was less than 5 minutes. She was extubated on 02/25. She continued to do well with struggled with pain. She was downgraded from ICU on 03/03. On 03/06/22 patient was noted to have a significant drop in hemoglobin from 10.0 down to 7.5 and upon reevaluation on 03/07 was found to have hemoglobin of 5.4, patient required multiple transfusions. She has received a total of 7 units PRBCs and 1 unit of platelets. She underwent a CT abdomen and pelvis and was found to have a large right chest hematoma dilated small bowel concerning for ileus. Patient was evaluated by cardiothoracic surgery and they recommended conservative management. On 03/07, patient was noted to be hypotensive with elevated WBC count of 42.3, with worsening renal function and hyperkalamia. Patient was treated with NS bolus, IV insulin/D50, Albuterol and sodium bicarbonate. She was transferred back to the ICU for septic shock requiring Levophed. Patient was started on Vancomycin and Cefepime. Blood and urine cultures were obtained and positive for Enterobacter. Infectious disease was consulted and patient was continued on Cefepime for treatment of Enterobacter UTI with secondary bacteremia and Vancomycin was discontinued. Patient was later weaned off of vasopressors and again transferred out of the ICU. Patient was started on Lasix for treatment of acute on chronic systolic heart failure with EF of 35-40%. Patient continued on Protonix for GI prophylaxis, amiodarone and metoprolol for atrial fibrillation with RVR sodium bicarb for treatment of metabolic acidosis. Pt's Xarelto remains hold at this time. Patient was evaluated by PMR and is currently not a candidate for inpatient rehab. She has been cleared by orthopedic surgery to start working with physical therapy and current plans are for patient to be discharged [facility] continued rehab. On 03/26/22 patient was again found to have elevating leukocytosis and repeat Wound cultures were obtained and showing no growth to date. Patient's WBC count continued to elevate, surgical wound showing no signs of infection and patient denies having any increased pain or complaints. She denies having any shortness of breath, cough or congestion and has remained afebrile. Worsening leukocytosis possibly secondary to development of atelectasis resulting from extended hospitalization and bedridden time frame or may be reactive secondary to daily steroids with Decadron. We will obtain a chest x-ray for further evaluation and patient again educated and encouraged on use of incentive spirometer. Prelimina ry Wound cultures are positive for gram-negative bacilli, group D enterococcus, and Patsy albicans... Culture results are likely resulting from contamination of the wound from pt's brief. We will await final culture and sensitivity report. Infectious disease broadened antibiotic coverage with Zosyn. Wound to be Open to air and discussed importance of keeping wound clean and dry with RN. Again, postsurgical wound is not showing any signs of infection including erythema, drainage, increased warmth, or foul odor. Physical examination: General: ill appearing, mild distress due to pain, appears at stated age, Derm: warm, dry. Surgical incision intact with sutures remaining in place to lower portion of surgical incision secondary to mild maceration to the lower portion of incision with no signs of infection noted including drainage, foul odor, erythema, or increased warmth Head: atraumatic, normocephalic, symmetric Eyes: EOMI, no lid lag, anicteric sclera Mouth: no lip lesion, dry membranes moist Cardiovascular: S1S2 irregular, no murmur Lungs: Respirations even, regular, and unlabored on room air. Lungs clear to auscultation bilaterally Ext: no gross muscle atrophy, 1+ BLE nonpitting edema, no contractures Abd: External catheter in place. Obese. Non tender to palpation. Neuro: Moving all 4 extremities independently, sensation and movement equal and intact in bilateral lower extremities. Bilateral lower extremity weakness is equal, likely secondary to bedridden state for the past 32 days. Psych: Alert, oriented, appropriate affect Assessment and plan of care: Septic shock resulting from Enterobacter cloacae UTI with secondary bacteremia Enterobacter cloacae UTI with secondary bacteremia Lactic acidosis Leukocytosis -Patient successfully weanedoff mechanical ventilation and pressors. -Completed a course of cefepime and started back on antibiotics for worsening leukocytosis. -Blood cultures + Enterobacter cloacae. -Urine culture + Enterobacter cloacae. -Worsening leukocytosis possibly secondary to development of atelectasis resulting from extended hospitalization and bedridden time frame or may be reactive secondary to daily steroids with Decadron. -We will obtain a chest x-ray for further evaluation and patient again educated and encouraged on use of incentive spirometer. -Preliminary Wound cultures are positive for gram-negative bacilli, group D enterococcus, and Patsy albicans... Culture results are likely resulting from contamination of the wound from pt's brief. We will await final culture and sensitivity report. Infectious disease broadened antibiotic coverage with Zosyn at this time. -Postsurgical incision be kept Open to air and discussed the importance of keeping wound clean and dry with RN. -Telemetry monitoring. 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 -Cardiology following -Continue amiodarone, metoprolol, and furosemide -Patient initially started on Aldactone but was discontinued secondary to h yperkalemia -Continue close monitoring of I's and O's Prerenal azotemia, improving Hyponatremia, improving -Na 128, BUN 35. Morning labs are pending. -Nephrology following. Hyperkalemia, resolved after discontinuation of Aldactone and lisinopril Metabolic acidosis, resolved -Continue sodium bicarb 650 mg twice a day -Aldactone and lisinopril discontinued. -Nephrology is following and we will repeat BMP tomorrow morning. Hyperglycemia likely secondary to steroids -No official DM diagnosis -Levemir 20 units daily. -Sliding scale. -A1c is 6, likely prediabetic, will benefit from metformin upon discharge. Acute blood loss anemia Right breast hematoma GI bleed, concern for ischemic bowel -Status post a total of 7 units PRBCs and 1 unit of platelets. -Gen. surgery following anticipation for EGD which revealed gastritis and mild esophagitis with no active bleeding. -Xarelto remains on hold at this time. -CT surgery recommends conservative managment of hematoma. -Monitor hemoglobin and Transfuse as needed if Hgb < 7. Transaminitis Obstructive LFTs. -Likely ischemic hepatitis. -Improved. Atrial fibrillation with RVR -Xarelto remains on hold secondary to GI bleed. -Continue Amiodarone and Metoprolol. -Cardiology following and on 03/24/22 cleared patient from cardiac standpoint for discharge. Abdominal pain, resolved IIeus versus SBO, resolved -Diet was slowly advanced patient tolerating regular carb consistent diet. -Gen. surgery evaluated General surgery on board. T10 to pelvis decompression with fusion Post-op pain -Management per primary admitting Orthopedic surgery team including DVT prophylaxis, pain management, wound/dressing care, weightbearing, and PT/OT . -Continue Gabapentin, Valium, Flexeril. -Patient remains on Decadron, recommend tapering off. -PT/OT following. -Plan is for discharge to [facility] for rehab Right diaphragmatic paralysis -Aggressive pulmonary hygiene. -Pulmonology following and cleared patient from their perspective on 03/22/22 Hyperlipidemia -Continue daily medication regimen with atorvastatin. Hypertension -Monitor vital signs and continue daily medication regimen with metoprolol and amiodarone. -Lisinopril and Aldactone was discontinued secondary to hyperkalemia. Thank you for allowing us to participate in the care of this pleasant patient. Do not hesitate to contact us with questions. Someone can be reached from the [facility] hospitalist group all hours of the day at [phone] or via [employer]. Laron Werner NP rendered care for this patient independently, reviewed the findings and plan as documented in the note above. I did not physically speak with or examine the patient on this date. Objective - Vital Signs Vital signs: Vital Signs Temp 97.9 F 03/28/22 00:00 Pulse 110 H 03/28/22 00:00 Resp 16 03/28/22 00:00 BP 109/63 03/28/22 04:00 Pulse Ox 94 L 03/28/22 00:00 FiO2 35 03/10/22 10:13 Intake & Output 03/27/22 03/28/22 03/28/22 18:59 06:59 18:59 Intake Total 200 Output Total 600 500 Balance -400 -500 Intake: Oral 200 Output: Urine 600 500 Other: Voiding Method External Catheter External Catheter # Voids 3 1 # Bowel Movements 1 1 ABP, PAP, CO, CI - Last Documented Arterial Blood Pressure 158/70 - Labs CBC & Chem 7: 03/28/22 09:44 03/27/22 08:34 Labs: Abnormal Lab Results - Last 24 Hours (Table) 03/27/22 03/27/22 03/27/22 Range/Units 08:34 08:34 12:06 WBC 15.9 H (3.8-10.6) k/uL RBC 3.44 L (3.80-5.40) m/uL Hgb 10.8 L (11.4-16.0) gm/dL Hct 31.8 L (34.0-46.0) % RDW 19.0 H (11.5-15.5) % Neutrophils # (Manual) 14.63 H (1.3-7.7) k/uL Lymphocytes # (Manual) 0.80 L (1.0-4.8) k/uL Myelocytes # (Manual) 0.16 H (0) k/uL Sodium 128 L (137-145) mmol/L BUN 35 H (7-17) mg/dL Glucose 135 H (74-99) mg/dL POC Glucose (mg/dL) 128 H (70-110) mg/dL Calcium 8.0 L (8.4-10.2) mg/dL ALT 39 H (4-34) U/L Lactate Dehydrogenase 974 H (313-618) U/L C-Reactive Protein 13.4 H (<1.0) mg/dL Total Protein 5.1 L (6.3-8.2) g/dL Albumin 2.7 L (3.5-5.0) g/dL 03/27/22 03/27/22 Range/Units 16:49 20:17 WBC (3.8-10.6) k/uL RBC (3.80-5.40) m/uL Hgb (11.4-16.0) gm/dL Hct (34.0-46.0) % RDW (11.5-15.5) % Neutrophils # (Manual) (1.3-7.7) k/uL Lymphocytes # (Manual) (1.0-4.8) k/uL Myelocytes # (Manual) (0) k/uL Sodium (137-145) mmol/L BUN (7-17) mg/dL Glucose (74-99) mg/dL POC Glucose (mg/dL) 198 H 231 H (70-110) mg/dL Calcium (8.4-10.2) mg/dL ALT (4-34) U/L Lactate Dehydrogenase (313-618) U/L C-Reactive Protein (<1.0) mg/dL Total Protein (6.3-8.2) g/dL Albumin (3.5-5.0) g/dL Microbiology - Last 24 Hours (Table) 03/26/22 15:00 Blood Culture - Preliminary Blood No Growth after 24 hours 03/26/22 13:12 Gram Stain - Preliminary Back Wound Culture - Preliminary 03/26/22 17:50 Anaerobic Culture - Preliminary Back
--- NOTE | 2022-03-28 14:13 | XR ---
EXAMINATION TYPE: XR chest 1V portable DATE OF EXAM: 03/28/2022 1:56 PM COMPARISON: Chest radiographs from 03/26/2022. TECHNIQUE: XR chest 1V portable Frontal view of the chest. CLINICAL INDICATION:Female, 71 years old with history of Worsening leukocytosis; FINDINGS: Patient is rotated which limits evaluation. Lungs/Pleura: There is no evidence of pleural effusion, focal consolidation, or pneumothorax. Promine nt bands of atelectasis within the lung bases bilaterally again demonstrated. Stable elevation the ri ght hemidiaphragm. Pulmonary vascularity: Unremarkable. Heart/mediastinum: Cardiomediastinal silhouette is unremarkable. Musculoskeletal: No acute osseous pathology. Other findings: None Lines/Tubes: Left-sided PICC with distal tip at the superior vena cava/brachiocephalic confluence. IMPRESSION: 1. Limited, markedly oblique exam. Ongoing asymmetric elevation of the right hemidiaphragm. 2. Prominent strandy atelectasis in the lower lungs is unchanged. No focal consolidation. 3. Stable left PICC.
[2022-03-28 16:24] LABS: Glucose,Whole Blood 104 mg/dL (70-110)
[2022-03-28] MEDS: PIPERACILLIN-TAZOBACTAM 3.375 GM in SODIUM CHLORIDE 0.9% 100 ML IVPB SCH ×2 (17:46→23:45)
[2022-03-28 19:49] LABS: Glucose,Whole Blood 126 mg/dL (70-110)
--- NOTE | 2022-03-28 22:26 | P.PN ---
Subjective Progress Note Date: 03/28/22 Principal diagnosis: UTI and bacteremia Patient is a 71-year-old female with a past medical history difficult for atrial fibrillation flutter hypertension hyperlipidemia hypothyroidism right breast cancer electively admitted to the hospital more than 2 weeks ago 022 for T10 to lumbar spine revision decompression and posterior lateral interbody fusion, patient did have a episode of hypotension and elevated white count requiring admission to the ICU patient did have a positive UA and gram- negative bacteremia and is scheduled for exploration of the thoracolumbar incision completed on 03/09/2022 with apparently no evidence of any abscess On today's evaluation that is 03/28/2022 the patient remains to be afebrile , the patient is breathing comfortably on room air, the patient diarrhea has resolved, patient did have some maceration to the lower end of her lumbar incision she denies any worsening pain to that area, no chest pain shortness of breath or cough Objective - Vital Signs Vital signs: Vital Signs Temp 97.9 F 03/28/22 00:00 Pulse 110 H 03/28/22 00:00 Resp 16 03/28/22 00:00 BP 109/63 03/28/22 04:00 Pulse Ox 94 L 03/28/22 00:00 FiO2 35 03/10/22 10:13 Intake & Output 03/27/22 03/28/22 03/28/22 18:59 06:59 18:59 Intake Total 200 120 Output Total 600 500 Balance -400 -500 120 Intake: Oral 200 120 Output: Urine 600 500 Other: Voiding Method External Catheter External Catheter # Voids 3 1 # Bowel Movements 1 1 ABP, PAP, CO, CI - Last Documented Arterial Blood Pressure 158/70 - Exam GENERAL DESCRIPTION: An elderly female lying in bed in no distress RESPIRATORY SYSTEM: Unlabored breathing , decreased breath sounds at bases HEART: S1 S2 regular rate and rhythm , ABDOMEN: Soft , no tenderness Thoracolumbar spine upper incision stitches are out incision is healed minimal maceration of the lower end no purulent drainage was noticed EXTREMITIES: Diffuse swelling bilateral lower extremity - Labs CBC & Chem 7: 03/28/22 09:44 03/27/22 08:34 Labs: Abnormal Lab Results - Last 24 Hours (Table) 03/27/22 03/27/22 03/27/22 Range/Units 12:06 16:49 20:17 WBC (3.8-10.6) k/uL RBC (3.80-5.40) m/uL Hgb (11.4-16.0) gm/dL Hct (34.0-46.0) % RDW (11.5-15.5) % POC Glucose (mg/dL) 128 H 198 H 231 H (70-110) mg/dL 03/28/22 Range/Units 09:44 WBC 18.0 H (3.8-10.6) k/uL RBC 3.39 L (3.80-5.40) m/uL Hgb 10.9 L (11.4-16.0) gm/dL Hct 30.5 L (34.0-46.0) % RDW 18.8 H (11.5-15.5) % POC Glucose (mg/dL) (70-110) mg/dL Microbiology - Last 24 Hours (Table) 03/26/22 13:12 Gram Stain - Preliminary Back Wound Culture - Preliminary Gram Neg Bacilli Group D Enterococcus Patsy albicans 03/26/22 15:00 Blood Culture - Preliminary Blood No Growth after 24 hours 03/26/22 17:50 Anaerobic Culture - Preliminary Back Assessment and Plan (1) Gram-negative bacteremia Current Visit: Yes Status: Acute Code(s): R78.81 - BACTEREMIA SNOMED Code(s): 005592950300 Plan: 1patient with SIRS/sepsis in this patient who has been in the hospital for 2 weeks with elective admission to the hospital for thoracolumbar spine revision did have a cardiac arrest requiring resuscitation , patient did have evidence of Enterobacter UTI with secondary bacteremia for which the patient has completed her antibiotic therapy 2patient with diarrhea seemed to have responded to Questran to continue 3elevated white count and concern for possible maceration of the lower end of the incision cultures obtained per hospitalist which are currently growing enterococcus and gram-negative as well as Patsy possible colonization however the patient is high risk of infection CT was discussed with the spine surgery. Will empirically add Zosyn and monitor clinical course closely Time with Patient: Less than 30
[2022-03-29 06:08] LABS: Glucose,Whole Blood 101 mg/dL (70-110)
[2022-03-29] MEDS: SODIUM CHLORIDE 0.9% 1,000 ML IV SCH (06:23)
[2022-03-29] MEDS: INSULIN ASPART (NovoLOG) 100 UNIT/ML VIAL SQ SCH ×4 (06:24→21:32)
[2022-03-29] MEDS: ACETAMINOPHEN TAB 500 MG TAB PO SCH ×3 (06:34→17:59)
[2022-03-29] MEDS: LEVOTHYROXINE 88 MCG TAB PO SCH (06:37)
[2022-03-29] MEDS: INSULIN DETEMIR (LEVEMIR) 100 UNIT/ML SYR SQ SCH (06:37)
--- NOTE | 2022-03-29 08:20 | P.PN ---
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 She is currently resting in bed. Surgical incision was cleaned with betadine swabs. Surgical dressing to be replaced by nursing after cleaning patient up. Patient in stool this am, calin mackenzie, Dr. Arce to be re-consulted. Generalized weakness, continue with encouragement for patient to be up in chair for all meals via zulema lift. Patient did sit in chair yesterday for approx 4 hours. Would like to get patient to rehab, awaiting medical clearance. She denies any fever/chills or chest pain. Objective - Vital Signs Vital signs: Vital Signs Temp 97.5 F L 03/29/22 04:30 Pulse 120 H 03/29/22 04:30 Resp 18 03/29/22 04:30 BP 110/70 03/29/22 06:35 Pulse Ox 96 03/29/22 07:59 FiO2 35 03/10/22 10:13 Intake & Output 03/28/22 03/29/22 03/29/22 18:59 06:59 18:59 Intake Total 220 Balance 220 Weight 127.2 kg Intake: Intake, IV Titration 100 Amount Caffeine-Sodium Benzoate 100 500 mg In Sodium Chloride 0.9% 100 ml @ 102 mls/hr IVPB DAILY [facility] Rx#: [id number] Oral 120 Other: Voiding Method External Catheter External Catheter # Voids 1 # Bowel Movements 1 ABP, PAP, CO, CI - Last Documented Arterial Blood Pressure 158/70 - Exam PHYSICAL EXAMINATION: General: Awake, alert, appropriate for age, in no acute distress. HEENT: No changes Extremities: Skin warm and dry without no acute lesions, coloration, temperature, skin intact, no tenderness or erythema. Integument: Surgical incisions: Incision cleaned with Betadine this morning, Upper portion of incision is well healed. Lower portion remains sutured with maceration noted. External cath present Palpation: Special findings: mild discomfort with palpation of the right breast area with healing hematoma noted as well as anterior chest wall. VASCULAR STATUS : Wrist Pulses: [2/4 bilateral radial and ulnar] Pedal Pulses: [2/4 bilateral DP and PT] Color: [Normal] Edema: Improved in arms and hands. NEUROLOGIC EXAMINATION: Mental Status: Awake and alert, oriented,but slow with normal attention, adrien ntration and memory, and fluent, he has slow speech Cranial Nerves: I: Olfactory not tested. II: Visual acuity normal, no visual field deficit noted with confrontation. III,IV: Normal pupillary reflexes & intact extraocular movements without nystagmus. V,: Intact symmetrical facial sensation. VII: Intact symmetrical facial motor movement VIII: Hearing intact. IX,X: Intact gag, swallow, & normal voice. XI: Sternocleidomastoid, trapezius function intact. XII: Tongue midline with normal movements. Special Tests: L'hermitte's Sign: Absent Straight Leg Raising: Absent Bilateral Motor Exam (0-5/5, N/T) STRENGTH 4- out of 5 strength in upper extremity's bilaterally all major muscle groups without focal deficits generalized weakness 3 to 5 strength bilateral lower extremities all major muscle groups with generalized weakness no focal deficits. She is weak in her hip flexors currently, bilateral quad muscles are engaging. REFLEXES Upper Extremity: RIGHT [2]/4 LEFT [2]/4 Lower Extremity: RIGHT [2]/4 LEFT [2]/4 Pathological Reflexes Warren's: RIGHT [Absent] LEFT [Absent] Babinski: RIGHT [Absent] LEFT [Absent] Clonus: RIGHT [None] LEFT [None] SENSORY Intact Gait and Functional Evaluation: Sit patient at bedside and increase physical activity as tolerated - Labs CBC & Chem 7: 03/28/22 09:44 03/27/22 08:34 Labs: Abnormal Lab Results - Last 24 Hours (Table) 03/28/22 03/28/22 Range/Units 09:44 19:48 WBC 17.6 H (3.8-10.6) k/uL RBC 3.39 L (3.80-5.40) m/uL Hgb 10.9 L (11.4-16.0) gm/dL Hct 30.5 L (34.0-46.0) % RDW 18.8 H (11.5-15.5) % Neutrophils # (Manual) 16.10 H (1.3-7.7) k/uL Metamyelocytes # (Man) 0.35 H (0) k/uL Nucleated RBCs 2 H (0-0) /100 WBC POC Glucose (mg/dL) 126 H (70-110) mg/dL Microbiology - Last 24 Hours (Table) 03/26/22 15:00 Blood Culture - Preliminary Blood No Growth after 48 hours 03/26/22 13:12 Gram Stain - Preliminary Back Wound Culture - Preliminary Gram Neg Bacilli Group D Enterococcus Patsy albicans Assessment and Plan Assessment: 1. 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 Status post 7 units PRBC and 1 pack platelets -bilateral lower extremity weakness, status post multiple controlled falls in- house -Enterobacter sepsis, UTI -status post cardiac arrest Plan: -Appreciate clinical practice consultant and team management PCC and medicine -Appreciate cardiothoracic, Gen. surgery, nephrology, ID evaluations -Dr. Arce re-consulted due to maroon colored stools. -Continue Activity: Patient to be up in chair for all meals. Encourage to increase physical activity as tolerated. -Cont Abx for duration of stay -Caffiene daily 200 mg daily, Fioricet -Pain control: Adequate today ( Tylenol 1000 mg MEHUL, Oxy IR q6 hrs 10-15 mg titrated to pain (pt been on [place] for 20 yrs), Cont Gabapentin,) -Meds: reviewed -Trend labs -Transfusions to vitals -GI ppx: senna, Miralax -Cont with FBS -DVT PPX: Mechanical -Hygiene: Maintain incision clean and dry. Meticulous cleaning after BMs away from incision site The wound needs to be kept meticulously clean, and dry. -Encourage IS 10x/hr -Will follow
[2022-03-29] MEDS: AMIODARONE 200 MG TAB PO SCH (09:50)
[2022-03-29] MEDS: METOPROLOL SUCCINATE (ER) 25 MG TAB.ER.24H PO SCH ×3 (09:50→21:32)
[2022-03-29] MEDS: PIPERACILLIN-TAZOBACTAM 3.375 GM in SODIUM CHLORIDE 0.9% 100 ML IVPB SCH ×2 (09:50→18:00)
[2022-03-29] MEDS: GABAPENTIN 400 MG CAP PO SCH ×3 (09:50→21:32)
[2022-03-29] MEDS: SODIUM BICARBONATE TAB 650 MG TAB PO SCH ×2 (09:51→21:32)
[2022-03-29] MEDS: DULoxetine HCL 60 MG CAPSULE.DR PO SCH (09:51)
[2022-03-29] MEDS: PANTOPRAZOLE 40 MG/10 ML VIAL IVP SCH (09:51)
[2022-03-29] MEDS: FUROSEMIDE 40 MG TAB PO SCH (09:51)
[2022-03-29] MEDS: CHOLESTYRAMINE (WITH SUGAR) 4 GM PACKET PO SCH ×3 (09:51→18:06)
[2022-03-29] MEDS: ATORVASTATIN 10 MG TAB PO SCH (09:51)
[2022-03-29] MEDS: DOXYCYCLINE 100 MG CAP PO SCH (09:52)
[2022-03-29] MEDS: MAG HYDROX/AL HYDROX/SIMETH 30 ML, diphenhydrAMINE ELIXIR 75 MG, LIDOCAINE VISCOUS 2% 3... PO SCH ×9 (09:59→21:36)
--- NOTE | 2022-03-29 11:18 | CT ---
EXAMINATION TYPE: CT abdomen pelvis wo con DATE OF EXAM: 03/29/2022 COMPARISON: 03/07/2022 INDICATION: Upper Quadrant pain DLP: 1476.4 mGycm, Automated exposure control for dose reduction was used. CONTRAST: 0 mL of Isovue 300. Study performed without Oral Contrast TECHNIQUE: Axial images were obtained from above the diaphragm to the pubic rami in the axial plane a t 5 mm thick sections. Reconstructed images are reviewed on the computer in the coronal plane. FINDINGS: Scoliosis is present. Patient is on the table and an oblique view. Nose made of a large fec al bolus at the rectum. Correlate for fecal impaction. No dilated loops of bowel are evident. Limited CT sections are obtained the lung bases. The lung bases are clear. There is a large mass al tarah the right anterior chest wall measuring [address] ABDOMEN: Liver: Normal Spleen: Normal Pancreas: Normal Adrenal glands: The adrenal glands are normal. Gallbladder: Surgically absent Kidneys: No masses are evident. Bilateral hydronephrosis appears to be present. Left hydroureter is p resent extending to the urinary bladder. More severe right hydroureter is present to the level of the urinary bladder. A couple of phleboliths are adjacent. No obstructing stone is identified. No renal stones are identified. There is a punctate calcification mid right kidney. No cysts are present. Aorta: Vascular calcification is within the aorta. Inferior vena cava: Normal. CT PELVIS: No dilated loops of bowel are evident. Fecal debris is within the colon. Clinical correlation recomme nded for fecal impaction at the rectum. No dilated small bowel loops are evident. This study is witho ut contrast limiting bowel evaluation. Appendix: The appendix is not identified. No dilated tubular structure or inflammatory changes are ev ident. Urinary bladder: Normal. Genitourinary structures: Uterus and ovaries are not identified. Osseous structures: Extensive lumbar and thoracic spine surgery is present. This causes beam hardenin g artifact and portions of the evaluation. IMPRESSIONS: 1. Bilateral hydronephrosis, this is an interval finding on the right. An obstructing etiology howev er is not identified by noncontrast CT. 2. Punctate nonobstructing right renal stone. 3. Clinical correlation for fecal impaction at the rectum is recommended. No bowel obstruction is brayan ntified. 4. Right anterior chest wall mass within the posterior right breast. Underlying neoplasm should be co nsidered.
[2022-03-29 11:45] LABS: Glucose,Whole Blood 116 mg/dL (70-110)
[2022-03-29 12:27] LABS: ALT 31 U/L (4-34); AST 39 U/L (14-36); African American GFR (CKD) >90 (>60 ml/min/1.73 sqM); Albumin 2.6 g/dL (3.5-5.0); Alkaline Phosphatase 97 U/L (38-126); Anion Gap 5 mmol/L; Blood Urea Nitrogen 30 mg/dL (7-17); C Reactive Protein 7.5 mg/dL (<1.0); Carbon Dioxide 23 mmol/L (22-30); Chloride 103 mmol/L (98-107); Glucose 94 mg/dL (74-99); Magnesium 1.9 mg/dL (1.6-2.3); Non-African American GFR(CKD) >90 (>60 ml/min/1.73 sqM); Potassium 4.7 mmol/L (3.5-5.1); Sodium 131 mmol/L (137-145); Total Bilirubin 1.2 mg/dL (0.2-1.3); Total Protein 5.2 g/dL (6.3-8.2)
[2022-03-29] MEDS: CAFFEINE-SODIUM BENZOATE 500 MG in SODIUM CHLORIDE 0.9% 100 ML IVPB SCH (12:45)
--- NOTE | 2022-03-29 13:01 | P.PN ---
Subjective Patient is seen in follow-up for hyponatremia. Sodium level 131 today. Currently sitting up in chair. Oral intake is fair. No vomiting or diarrhea. Has external catheter. Blood pressure stable. Vital signs are stable. General: Awake. No acute distress. HEENT: Head exam is unremarkable. LUNGS: Breath sounds decreased. HEART: Rate and Rhythm are regular. ABDOMEN: Soft, obese. EXTREMITITES: 1+ edema. Objective - Vital Signs Vital signs: Vital Signs Temp 97.8 F 03/29/22 08:00 Pulse 115 H 03/29/22 08:00 Resp 18 03/29/22 08:00 BP 115/72 03/29/22 08:00 Pulse Ox 96 03/29/22 07:59 FiO2 35 03/10/22 10:13 Intake & Output 03/28/22 03/29/22 03/29/22 18:59 06:59 18:59 Intake Total 220 Balance 220 Weight 127.2 kg Intake: Intake, IV Titration 100 Amount Caffeine-Sodium Benzoate 100 500 mg In Sodium Chloride 0.9% 100 ml @ 102 mls/hr IVPB DAILY [facility] Rx#: [id number] Oral 120 Other: Voiding Method External Catheter External Catheter External Catheter # Voids 1 # Bowel Movements 1 ABP, PAP, CO, CI - Last Documented Arterial Blood Pressure 158/70 - Labs CBC & Chem 7: 03/28/22 09:44 03/29/22 11:55 Labs: Abnormal Lab Results - Last 24 Hours (Table) 03/28/22 03/29/22 03/29/22 Range/Units 19:48 11:44 11:55 Sodium 131 L (137-145) mmol/L BUN 30 H (7-17) mg/dL POC Glucose (mg/dL) 126 H 116 H (70-110) mg/dL Calcium 8.0 L (8.4-10.2) mg/dL AST 39 H (14-36) U/L C-Reactive Protein 7.5 H (<1.0) mg/dL Total Protein 5.2 L (6.3-8.2) g/dL Albumin 2.6 L (3.5-5.0) g/dL Microbiology - Last 24 Hours (Table) 03/26/22 15:00 Blood Culture - Preliminary Blood No Growth after 48 hours 03/26/22 13:12 Gram Stain - Preliminary Back Wound Culture - Preliminary Gram Neg Bacilli Group D Enterococcus Patsy albicans Assessment and Plan Plan: Assessment: 1. Hyponatremia. Hypervolemic. Urine sodium was 30 and urine osmolality 515 on 03/08/2022. TSH normal dated 03/09/2022. Cortisol level not low. Status post [facility] this admission. Sodium level 131. 2. Enterobacter bacteremia and UTI status. ID following. Also on Questran for diarrhea. 3. Metabolic acidosis secondary to GI losses. On oral bicarb. Improved. 4. Diabetes mellitus. 5. Lower extremity edema on Lasix. Plan: Maintain oral Lasix. 1200 mL fluid restriction. Encourage oral intake. Continue to monitor renal function and urine output.
[2022-03-29 13:02] LABS: Anisocytosis Slight; HCT 34.1 % (34.0-46.0); HGB 11.7 gm/dL (11.4-16.0); Hypochromasia Slight; MCH 32.2 pg (25.0-35.0); MCHC 34.4 g/dL (31.0-37.0); MCV 93.5 fL (80.0-100.0); Macrocytosis Slight; Mean Platelet Volume 11.1; Poikilocytosis Moderate; RBC 3.64 m/uL (3.80-5.40); RDW 18.9 % (11.5-15.5)
--- NOTE | 2022-03-29 14:20 | P.PN ---
Subjective Progress Note Date: 03/29/22 Principal diagnosis: UTI and bacteremia Patient is a 71-year-old female with a past medical history difficult for atrial fibrillation flutter hypertension hyperlipidemia hypothyroidism right breast cancer electively admitted to the hospital more than 2 weeks ago 022 for T10 to lumbar spine revision decompression and posterior lateral interbody fusion, patient did have a episode of hypotension and elevated white count requiring admission to the ICU patient did have a positive UA and gram- negative bacteremia and is scheduled for exploration of the thoracolumbar incision completed on 03/09/2022 with apparently no evidence of any abscess On today's evaluation that is 03/29/2022 the patient continues to be afebrile , the patient is breathing comfortably on room air, the patient diarrhea has improved, patient complaining of some discomfort in the lower part of incision however denies any worsening drainage no nausea no vomiting Objective - Vital Signs Vital signs: Vital Signs Temp 97.8 F 03/29/22 08:00 Pulse 115 H 03/29/22 08:00 Resp 18 03/29/22 08:00 BP 115/72 03/29/22 08:00 Pulse Ox 96 03/29/22 07:59 FiO2 35 03/10/22 10:13 Intake & Output 03/28/22 03/29/22 03/29/22 18:59 06:59 18:59 Intake Total 220 Balance 220 Weight 127.2 kg Intake: Intake, IV Titration 100 Amount Caffeine-Sodium Benzoate 100 500 mg In Sodium Chloride 0.9% 100 ml @ 102 mls/hr IVPB DAILY [facility] Rx#: [id number] Oral 120 Other: Voiding Method External Catheter External Catheter # Voids 1 # Bowel Movements 1 ABP, PAP, CO, CI - Last Documented Arterial Blood Pressure 158/70 - Exam GENERAL DESCRIPTION: An elderly female lying in bed in no distress RESPIRATORY SYSTEM: Unlabored breathing , decreased breath sounds at bases HEART: S1 S2 regular rate and rhythm , ABDOMEN: Soft , no tenderness Thoracolumbar spine upper incision stitches are out incision is healed minimal maceration of the lower end no purulent drainage was noticed EXTREMITIES: Diffuse swelling bilateral lower extremity - Labs CBC & Chem 7: 03/29/22 11:55 03/29/22 11:55 Labs: Abnormal Lab Results - Last 24 Hours (Table) 03/28/22 03/28/22 Range/Units 09:44 19:48 WBC 17.6 H (3.8-10.6) k/uL Neutrophils # (Manual) 16.10 H (1.3-7.7) k/uL Metamyelocytes # (Man) 0.35 H (0) k/uL Nucleated RBCs 2 H (0-0) /100 WBC POC Glucose (mg/dL) 126 H (70-110) mg/dL Microbiology - Last 24 Hours (Table) 03/26/22 15:00 Blood Culture - Preliminary Blood No Growth after 48 hours 03/26/22 13:12 Gram Stain - Preliminary Back Wound Culture - Preliminary Gram Neg Bacilli Group D Enterococcus Patsy albicans Assessment and Plan (1) Gram-negative bacteremia Current Visit: Yes Status: Acute Code(s): R78.81 - BACTEREMIA SNOMED Code(s): 519459384631 Plan: 1patient with SIRS/sepsis in this patient who has been in the hospital for 2 weeks with elective admission to the hospital for thoracolumbar spine revision did have a cardiac arrest requiring resuscitation , patient did have evidence of Enterobacter UTI with secondary bacteremia for which the patient has completed her antibiotic therapy 2patient with diarrhea seemed to have responded to Questran to continue 3elevated white count and concern for possible maceration of the lower end of the incision cultures obtained per hospitalist which are currently growing enterococcus and gram-negative as well as Patsy possible colonization however the patient is high risk of infection CT was discussed with the spine surgery. Patient is currently empirically treated with Zosyn and continue supportive care Time with Patient: Less than 30
[2022-03-29 14:29] LABS: Band Neutrophils % 2 %; Metamyelocytes % 1 %; Myelocytes % 2 %; Neutrophils % (M) 86 %; Nucleated Red Blood Cells 3 /100 WBC (0-0); Total Cells Counted 200
[2022-03-29 14:30] LABS: Basophils # (M) 0.17 k/uL (0-0.2); Lymphocytes # (M) 1.19 k/uL (1.0-4.8); Metamyelocytes # (M) 0.17 k/uL (0); Monocytes # (M) 0.51 k/uL (0-1.0); Myelocytes # (M) 0.34 k/uL (0)
[2022-03-29 14:33] LABS: Polychromasia Present
[2022-03-29 14:34] LABS: Platelet Count 160 k/uL (150-450)
--- NOTE | 2022-03-29 14:34 | P.GSCN ---
History of Present Illness Consult date: 03/29/22 History of present illness: CHIEF COMPLAINT: Elective back surgery Reason for consult GI bleed HISTORY OF PRESENT ILLNESS: This is a 71-year-old female who presented to the hospital for elective spinal surgery with Dr. Alexander on 02/24/2022. Patient had a cardiac arrest at the end of her procedure and required ACLS and CPR. Patient required to be transferred to the ICU and intubated. Initially surgical service was consulted regarding an ileus and possible ischemic colitis. We're also following regards to her melanotic stools and she had an EGD completed on 1217 which had shown mild gastritis and esophagitis with no active bleeding. Patient required to be taken back to the OR by spinal surgical service for washout and dural repair. Patient was able to be transferred out of the ICU. She is currently on the cardiac floor. She was started on Xarelto. And patient did start having maroon-colored stools over the last couple a days. She did have some bright red per rectum last night. Xarelto was discontinued on 03/24/2022. However, patient continues to have blood noted in her stools. She reports her last colonoscopy was 5 years ago and reported as normal. Her hemoglobin went up from 10.9-11.7 today. Her last blood transfusion was on 03/10/2022. Patient is unable to stand or move her legs since surgery. She is able to move her feet. She is reporting some left lower quadrant abdominal pain. She denies any nausea or vomiting. Currently on a regular diet. Patient did have hypotension and tachycardia. This morning which is now improved. PAST MEDICAL HISTORY: See below PAST SURGICAL HISTORY: See below MEDICATIONS: See below ALLERGIES: See below SOCIAL HISTORY: No illicit drug use. REVIEW OF SYSTEMS: CONSTITUTIONAL: Denies fever or chills. HEENT: Denies blurred vision, vision changes, or eye pain. Denies hemoptysis CARDIOVASCULAR: Denies chest pain or pressure. RESPIRATORY: No shortness of breath. GASTROINTESTINAL: See HPI for pertinent findings HEMATOLOGIC: Denies bleeding disorders. GENITOURINARY: Denies any blood in urine or increased urinary frequency. SKIN: Denies pruitis. Denies rash. PHYSICAL EXAM: VITAL SIGNS: Reviewed GENERAL: Well-developed in no acute distress. Chest: Right breast hematoma resolving ABDOMEN: Soft. Obese. Nondistended. Tenderness with palpation the left lower quadrant NEUROLOGIC: Alert and oriented. Cranial nerves II through XII grossly intact. LABORATORY DATA: WBC is 17.5 hemoglobin 10.9 up to 11.7 platelets 189 sodium 131 potassium 4.7 creatinine 0.53 IMAGING: Computed tomography scan abdomen and pelvis bilateral hydronephrosis. An obstructing etiology however is not identified. Punctate nonobstructing right renal stone. Clinical correlation for fecal impaction at the rectum is recommended. No bowel obstruction is identified. Right anterior chest wall mass within the posterior right breast. Underlying neoplasm should be considered. ASSESSMENT: 1. Acute GI bleed with maroon stools and recently restarting Xarelto 2. Left lower quadrant abdominal pain 3. Lumbar decompression/fusion and then with washout and dural repair PLAN: -Keep Xarelto on hold -Continue monitor hemoglobin -Continue to monitor for any signs or symptoms of bleeding -Patient would have a difficult time undergoing bowel prep for colonoscopy due to mobility issues. At this time we will continue to observe patient Physician Patient Flow Coordinator note has been reviewed by physician. Signing provider agrees with the documented findings, assessment, and plan of care. Past Medical History Past Medical History: Atrial Fibrillation, Atrial Flutter, Cancer, Chest Pain / Angina, GERD/Reflux, Hyperlipidemia, Hypertension, Osteoarthritis (OA), Thyroid Disorder Additional Past Medical History / Comment(s): Rr breast cancer, hiatal hernia, chronic low back pain. partially paralyzed rt diaphragm, infection rt breast after surgery History of Any Multi-Drug Resistant Organisms: None Reported Past Surgical History: Back Surgery, Bladder Surgery, Breast Surgery, Cardiac Ablation, Cholecystectomy, EPS, Heart Catheterization, Hernia Repair, Hysterectomy, Joint Replacement, Orthopedic Surgery Additional Past Surgical History / Comment(s): R breast core bx/needle loc, R breast lumpectomy/axillary node dissection, CHATO, cardioversion, low back surgeries x3 with plate/screws, total R knee x3, R foot multiple surgeries for spur/neuromas, L foot cystectomy, R elbow injury w/ surgery, R wrist ganglion cystectomy, partial thyroidectomy, 4 abdominal hernia repairs, bladder suspension, colonoscopy, loki cataract, laser loki eye surgery 01/31/22 Past Anesthesia/Blood Transfusion Reactions: Previous Problems w/ Anesthesia, Postoperative Nausea & Vomiting (PONV) Additional Past Anesthesia/Blood Transfusion Reaction / Comm: On ventilator for 2 days after cardiac ablation d/t diaphragm paralysis-rt side Past Psychological History: Depression Additional Psychological History / Comment(s): . Smoking Status: Never smoker Past Alcohol Use History: Rare Past Drug Use History: None Reported - Past Family History Father Family Medical History: Cancer Additional Family Medical History / Comment(s): . Mother Family Medical History: Cancer, Deep Vein Thrombosis (DVT) Additional Family Medical History / Comment(s): Skin and breast cancer. Medications and Allergies Home Medications Medication Instructions Recorded Confirmed Type Levothyroxine Sodium [Synthroid] 88 mcg PO QAM 02/19/14 02/20/22 History HYDROcodone/APAP 10-325MG [[place] 1 tab PO Q4H PRN 12/23/18 02/20/22 History 10-325] Atorvastatin [Lipitor] 10 mg PO DAILY #30 tab 04/10/19 02/20/22 Rx atenoloL [Tenormin] 100 mg PO QAM 05/10/20 02/20/22 History Amlodipine Besylate/Valsartan 1 each PO QAM 02/02/22 02/20/22 History [Exforge 5-320 mg Tablet] DULoxetine HCL [Cymbalta] 60 mg PO DAILY 02/02/22 02/20/22 History Rivaroxaban [Xarelto] 20 mg PO HS 02/02/22 02/20/22 History Rosuvastatin Calcium 10 mg PO QAM 02/02/22 02/20/22 History Allergies Allergy/AdvReac Type Severity Reaction Status Date / Time cephalexin monohydrate Allergy Mild Rash/Hives Verified 02/24/22 05:56 [From Keflex] Iodinated Contrast Media Allergy Mild Rash/Hives Verified 02/24/22 05:56 [Iodinated Contrast Media - IV Dye] Sulfa (Sulfonamide Allergy Mild Rash/Hives Verified 02/24/22 05:56 Antibiotics) adhesive tape AdvReac Severe Rash/Hives Uncoded 02/24/22 05:56 Surgical - Exam Vital Signs Temp Pulse Resp BP Pulse Ox 97.7 F 66 16 113/56 96 02/24/22 06:42 02/24/22 06:42 02/24/22 06:42 02/24/22 06:42 02/24/22 06:42 Results - Labs 03/29/22 11:55 03/29/22 11:55 Abnormal Lab Results - Last 24 Hours (Table) 03/28/22 03/28/22 Range/Units 09:44 19:48 WBC 17.6 H (3.8-10.6) k/uL RBC 3.39 L (3.80-5.40) m/uL Hgb 10.9 L (11.4-16.0) gm/dL Hct 30.5 L (34.0-46.0) % RDW 18.8 H (11.5-15.5) % Neutrophils # (Manual) 16.10 H (1.3-7.7) k/uL Metamyelocytes # (Man) 0.35 H (0) k/uL Nucleated RBCs 2 H (0-0) /100 WBC POC Glucose (mg/dL) 126 H (70-110) mg/dL Microbiology - Last 24 Hours (Table) 03/26/22 15:00 Blood Culture - Preliminary Blood No Growth after 48 hours 03/26/22 13:12 Gram Stain - Preliminary Back Wound Culture - Preliminary Gram Neg Bacilli Group D Enterococcus Patsy albicans
[2022-03-29 14:57] LABS: Erythrocyte Sedimentation Rate 63 mm/hr (0-20)
--- NOTE | 2022-03-29 16:16 | P.PN ---
Subjective Progress Note Date: 03/29/22 Hospital course: Patient is a 71 yo CF with a hx of A fib s/p ablation, GERD, hypertension, dyslipidemia, and right diaphragmatic paralysis who presented for T10 to Pelvis decompression and fusion with revision. Blood loss and the case was approximately 1900 mL. During her operative course she required phenylephrine IV infusion, Vasopressin IVP. She also received TXA gtt. She received 7 L of lactated Ringer's. She received 1 amp of sodium bicarb intaop. She also received albumin. Her operative course was complicated with a cardiac arrest. During the case she developed A. fib with RVR and then quickly transitioned into bradycardia with a low end-tidal CO2. She received 0.4 of atropine and CPR was started. She received epinephrine 0.5. She achieved ROSC. Total down time was less than 5 minutes. She was extubated on 02/25. She continued to do well with struggled with pain. She was downgraded from ICU on 03/03. On 03/06/22 patient was noted to have a significant drop in hemoglobin from 10.0 down to 7.5 and upon reevaluation on 03/07 was found to have hemoglobin of 5.4, patient required multiple transfusions. She has received a total of 7 units PRBCs and 1 unit of platelets. She underwent a CT abdomen and pelvis and was found to have a large right chest hematoma dilated small bowel concerning for ileus. Patient was evaluated by cardiothoracic surgery and they recommended conservative management. On 03/07, patient was noted to be hypotensive with elevated WBC count of 42.3, with worsening renal function and hyperkalamia. Patient was treated with NS bolus, IV insulin/D50, Albuterol and sodium bicarbonate. She was transferred back to the ICU for septic shock requiring Levophed. Patient was started on Vancomycin and Cefepime. Blood and urine cultures were obtained and positive for Enterobacter. Infectious disease was consulted and patient was continued on Cefepime for treatment of Enterobacter UTI with secondary bacteremia and Vancomycin was discontinued. Patient was later weaned off of vasopressors and again transferred out of the ICU. Patient was started on Lasix for treatment of acute on chronic systolic heart failure with EF of 35-40%. Patient continued on Protonix for GI prophylaxis, amiodarone and metoprolol for atrial fibrillation with RVR sodium bicarb for treatment of metabolic acidosis. Pt's Xarelto remains hold at this time. Patient was evaluated by PMR and is currently not a candidate for inpatient rehab. She has been cleared by orthopedic surgery to start working with physical therapy and current plans are for patient to be discharged to [facility] for continued rehab. On 03/26/22 patient was again found to have elevating leukocytosis and repeat Wound cultures were obtained and showing no growth to date. Patient's WBC count continued to elevate, surgical wound showing no signs of infection and patient denies having any increased pain or complaints. She denies having any shortness of breath, cough or congestion and has remained afebrile. Worsening leukocytosis possibly secondary to development of atelectasis resulting from extended hospitalization and bedridden time frame or may be reactive secondary to daily steroids with Decadron. We will obtain a chest x-ray for further evaluation and patient again educated and encouraged on use of incentive spirometer. Prelimina ry Wound cultures are positive for gram-negative bacilli, group D enterococcus, and Patsy albicans... Culture results are likely resulting from contamination of the wound from pt's brief. We will await final culture and sensitivity report. Infectious disease broadened antibiotic coverage with Zosyn. Wound to be Open to air and discussed importance of keeping wound clean and dry with RN. Again, postsurgical wound is not showing any signs of infection including erythema, drainage, increased warmth, or foul odor. Nursing staff reported overnight on 03/28/22 patient again developed episodes of melena and at that time Dr. Arce, general surgeon was re-consulted. Upon assessment morning . Patient complaining of left upper and left lower quadrant abdominal pain and new-onset. Stat orders place. CT abdomen and pelvis, unable to use contrast as patient reports ALLERGIC reaction includes rash/hives and hypotension. Due to patient's recurrent episodes of hypotension will err on the side of caution and complete imaging without contrast. , concerns for fecal impaction, and persistent previously known right anterior chest wall hematoma. Discussed case with nephrology. Warren catheter to be inserted. Renal function stable with the exception of mildly elevated BUN at 30 and creatinine of 0.53. Urology consulted. Will defer ordering of renal ultrasound after urology evalua tion. Physical examination: Upon assessment morning 03/29. Patient complaining of left upper and left lower quadrant abdominal pain and new-onset. Stat orders place. CT abdomen and pelvis, unable to use contrast as patient reports ALLERGIC reaction includes rash/hives and hypotension. Due to patient's recurrent episodes of hypotension will err on the side of caution and complete imaging without contrast. CT abdomen and pelvis revealing bilateral hydronephrosis unable to rule out obstructive etiology, concerns for fecal impaction, and persistent previously known right anterior chest wall hematoma. Discussed case with nephrology. Warren catheter to be inserted. Renal function stable with the exception of mildly elevated BUN at 30 and creatinine of 0.53. Urology consulted. Will defer ordering of renal ultrasound after urology evaluation. Leukocytosis has plateaued and slightly improved down to 17.0. Decadron was discontinued yesterday. Patient's hemoglobin is stable at 11.7. General: ill appearing, mild distress due to pain, appears at stated age, Derm: warm, dry. Surgical incision intact with sutures remaining in place to lower portion of surgical incision secondary to mild maceration to the lower portion of incision with no signs of infection noted including drainage, foul odor, erythema, or increased warmth Head: atraumatic, normocephalic, symmetric Eyes: EOMI, no lid lag, anicteric sclera Mouth: no lip lesion, dry membranes moist Cardiovascular: S1S2 irregular, no murmur Lungs: Respirations even, regular, and unlabored on room air. Lungs clear to auscultation bilaterally Ext: no gross muscle atrophy, 1+ BLE nonpitting edema, no contractures Abd: External catheter in place. Obese. Non tender to palpation. Neuro: Moving all 4 extremities independently, sensation and movement equal and intact in bilateral lower extremities. Bilateral lower extremity weakness is equal, likely secondary to bedridden state for the past 32 days. Psych: Alert, oriented, appropriate affect Assessment and plan of care: Septic shock resulting from Enterobacter cloacae UTI with secondary bacteremia Enterobacter cloacae UTI with secondary bacteremia Lactic acidosis Leukocytosis -Patient was successfully weanedoff mechanical ventilation and pressors. -Completed a course of cefepime and started back on antibiotics for worsening leukocytosis, currently on Zosyn. -Blood cultures + Enterobacter cloacae. -Urine culture + Enterobacter cloacae. -Worsening leukocytosis possibly reactive secondary to daily steroids with Decadron or resulting from a hydronephrosis noted on CT. -We will obtain a chest x-ray for further evaluation and patient again educated and encouraged on use of incentive spirometer. -Preliminary Wound cultures are positive for gram-negative bacilli, group D enterococcus, and Patsy albicans... Culture results are possibly resulting fr om contamination of the wound from pt's brief. We will await final culture and sensitivity report. Infectious disease broadened antibiotic coverage with Zosyn at this time. -Postsurgical incision be kept Open to air and discussed the importance of keeping wound clean and dry with RN. -Telemetry monitoring. -Pulmonology/bill cutter following and cleared patient from their perspective on 03/22/22 -Infectious disease following Left upper and lower quadrant abdominal pain with Melena -CT abdomen and pelvis concerning for possible fecal impaction. -Gen. surgery was consulted for reevaluation. Bilateral hydronephrosis -CT abdomen and pelvis revealing bilateral hydronephrosis unable to rule out obstructive etiology. -Renal function stable with the exception of mildly elevated BUN at 30 and creatinine of 0.53. -Urology consulted. -Will defer ordering of renal ultrasound after urology evaluation. Acute on Chronic Systolic CHF -Echo shows EF 35-40% with severe pulmonary HTN, moderate MR. -Cardiology following -Continue amiodarone, metoprolol, and furosemide -Patient initially started on Aldactone but was discontinued secondary to hyperkalemia -Continue close monitoring of I's and O's Prerenal azotemia, improving Hyponatremia, improving -Na 128, BUN 35. Morning labs are pending. -Nephrology following. Hyperkalemia, resolved after discontinuation of Aldactone and lisinopril Metabolic acidosis, resolved -Continue sodium bicarb 650 mg twice a day -Aldactone and lisinopril discontinued. -Nephrology is following and we will repeat BMP tomorrow morning. Hyperglycemia likely secondary to steroids -No official DM diagnosis -Levemir 20 units daily. -Sliding scale. -A1c is 6, likely prediabetic, will benefit from metformin upon discharge. Acute blood loss anemia Right breast hematoma GI bleed, concern for ischemic bowel -Status post a total of 7 units PRBCs and 1 unit of platelets. -Gen. surgery following anticipation for EGD which revealed gastritis and mild esophagitis with no active bleeding. -Xarelto remains on hold at this time. -CT surgery recommends conservative managment of hematoma. -Monitor hemoglobin and Transfuse as needed if Hgb < 7. Transaminitis Obstructive LFTs. -Likely ischemic hepatitis. -Improved. Atrial fibrillation with RVR -Xarelto remains on hold secondary to GI bleed. -Continue Amiodarone and Metoprolol. -Cardiology following and on 03/24/22 cleared patient from cardiac standpoint for discharge. Abdominal pain, resolved IIeus versus SBO, resolved -Diet was slowly advanced patient tolerating regular carb consistent diet. -Gen. surgery evaluated T10 to pelvis decompression with fusion Post-op pain -Management per primary admitting Orthopedic surgery team including DVT p rophylaxis, pain management, wound/dressing care, weightbearing, and PT/OT . -Continue Gabapentin, Valium, Flexeril. -Decadron discontinued on 03/28/22 -PT/OT following. -[facility] Right diaphragmatic paralysis -Aggressive pulmonary hygiene. -Pulmonology following and cleared patient from their perspective on 03/22/22 Hyperlipidemia -Continue daily medication regimen with atorvastatin. Hypertension -Monitor vital signs and continue daily medication regimen with metoprolol and amiodarone. -Lisinopril and Aldactone was discontinued secondary to hyperkalemia. Thank you for allowing us to participate in the care of this pleasant patient. Do not hesitate to contact us with questions. Someone can be reached from the [facility] hospitalist group all hours of the day at [phone] or via [employer]. Laron Werner NP rendered care for this patient independently, reviewed the findings and plan as documented in the note above. I did not physically speak w ith or examine the patient on this date. Objective - Vital Signs Vital signs: Vital Signs Temp 97.5 F L 03/29/22 04:30 Pulse 120 H 03/29/22 04:30 Resp 18 03/29/22 04:30 BP 110/70 03/29/22 06:35 Pulse Ox 96 03/29/22 07:59 FiO2 35 03/10/22 10:13 Intake & Output 03/28/22 03/29/22 03/29/22 18:59 06:59 18:59 Intake Total 220 Balance 220 Weight 127.2 kg Intake: Intake, IV Titration 100 Amount Caffeine-Sodium Benzoate 100 500 mg In Sodium Chloride 0.9% 100 ml @ 102 mls/hr IVPB DAILY [facility] Rx#: [id number] Oral 120 Other: Voiding Method External Catheter External Catheter # Voids 1 # Bowel Movements 1 ABP, PAP, CO, CI - Last Documented Arterial Blood Pressure 158/70 - Labs CBC & Chem 7: 03/29/22 11:55 03/29/22 11:55 Labs: Abnormal Lab Results - Last 24 Hours (Table) 03/28/22 03/28/22 Range/Units 09:44 19:48 WBC 17.6 H (3.8-10.6) k/uL RBC 3.39 L (3.80-5.40) m/uL Hgb 10.9 L (11.4-16.0) gm/dL Hct 30.5 L (34.0-46.0) % RDW 18.8 H (11.5-15.5) % Neutrophils # (Manual) 16.10 H (1.3-7.7) k/uL Metamyelocytes # (Man) 0.35 H (0) k/uL Nucleated RBCs 2 H (0-0) /100 WBC POC Glucose (mg/dL) 126 H (70-110) mg/dL Microbiology - Last 24 Hours (Table) 03/26/22 15:00 Blood Culture - Preliminary Blood No Growth after 48 hours 03/26/22 13:12 Gram Stain - Preliminary Back Wound Culture - Preliminary Gram Neg Bacilli Group D Enterococcus Patsy albicans
[2022-03-29 16:37] LABS: Glucose,Whole Blood 112 mg/dL (70-110)
[2022-03-29 18:32] LABS: Appearance,Urine Clear (Clear); Bilirubin,Urine Negative (Negative); Blood,Urine Negative (Negative); Budding Yeast,Urine Few /hpf; Color,Urine Yellow; Glucose,Urine (UA) Negative (Negative); Ketones,Urine Negative (Negative); Leukocyte Esterase,Urine Trace (Negative); Mucus,Urine Rare /hpf; Nitrite,Urine Negative (Negative); PH, Urine 5.5 (5.0-8.0); Protein,Urine Negative (Negative); RBC,Urine 1 /hpf (0-5); Specific Gravity,Urine 1.018 (1.001-1.035); Squamous Epithelial Cell,Urine <1 /hpf (0-4); Urobilinogen,Urine <2.0 mg/dL (<2.0); WBC,Urine 8 /hpf (0-5)
[2022-03-29 20:05] LABS: Glucose,Whole Blood 162 mg/dL (70-110)
[2022-03-30] MEDS: ACETAMINOPHEN TAB 500 MG TAB PO SCH ×5 (00:22→23:30)
[2022-03-30] MEDS: PIPERACILLIN-TAZOBACTAM 3.375 GM in SODIUM CHLORIDE 0.9% 100 ML IVPB SCH ×4 (00:23→23:30)
[2022-03-30] MEDS: DOXYCYCLINE 100 MG CAP PO SCH ×3 (00:24→22:34)
[2022-03-30] MEDS: SODIUM CHLORIDE 0.9% 1,000 ML IV SCH (05:38)
[2022-03-30] MEDS: LEVOTHYROXINE 88 MCG TAB PO SCH (05:38)
[2022-03-30 06:02] LABS: Glucose,Whole Blood 74 mg/dL (70-110)
[2022-03-30] MEDS: INSULIN ASPART (NovoLOG) 100 UNIT/ML VIAL SQ SCH ×4 (06:11→22:14)
--- NOTE | 2022-03-30 08:35 | P.PN ---
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 She is sleepy, but doing OK. Denies any new sx at this time. Nursing states she had Bm at 6 am and was cleaned, was darker stool. She was up for 4 hrs yesterday again. Spoke with family last night about her current situation. We need to try and get her stabilized for rehab as soon as possible. Will likely continue to treat her for infective process in general given she has been laying in stool every AM when we come in and have to clean her. They would like to shower her today and I think that is a good Idea. We will place orders for this. They also requested to speak with the patient liason today and nurse plant manager which I believe is a good idea. They will be in around 2pm to visit her today. Other than this she continues to improve. Objective - Vital Signs Vital signs: Vital Signs Temp 98.1 F 03/30/22 04:00 Pulse 71 03/30/22 04:00 Resp 18 03/30/22 04:00 BP 109/52 03/30/22 04:00 Pulse Ox 97 03/30/22 04:00 FiO2 35 03/10/22 10:13 Intake & Output 03/29/22 03/30/22 03/30/22 18:59 06:59 18:59 Output Total 100 954 Balance -100 -954 Output: Urine 100 950 Stool 4 Other: Voiding Method External Catheter Indwelling Catheter # Bowel Movements 2 ABP, PAP, CO, CI - Last Documented Arterial Blood Pressure 158/70 - Exam No changes today PHYSICAL EXAMINATION: Vitals: Stable General: Awake, alert, appropriate for age, in no acute distress. HEENT: No changes Extremities: Skin warm and dry without no acute lesions, coloration, temperature, skin intact, no tenderness or erythema. Integument: Surgical incisions: Cleanedc again today with betadine. Also cleaned her perineal area as she was caked in stool again. She knows she is going but cannot get up to go and does not get help fast enough she states. INcision is looking OK. There is maceration at the ceter 5 inches of the incision that is having difficulty with healing but is still healing from bottom up secondarily. We removed a small run of sutures at the very bottom of the incision today as it is healed. NO drainage. No purulence. Warren Cath present and patent FMS present and patent Palpation: Special findings: pain with palpation of the right breast area with large hematoma noted as well as anterior chest wall. VASCULAR STATUS : Wrist Pulses: [2/4 bilateral radial and ulnar] Pedal Pulses: [2/4 bilateral DP and PT] Color: [Normal] Edema: Improved in arms and hands. NEUROLOGIC EXAMINATION: Mental Status: Awake and alert, oriented,but slow with normal attention, concentration and memory, and fluent, he has slow speech Cranial Nerves: I: Olfactory not tested. II: Visual acuity normal, no visual field deficit noted with confrontation. III,IV: Normal pupillary reflexes & intact extraocular movements without nystagmus. V,: Intact symmetrical facial sensation. VII: Intact symmetrical facial motor movement VIII: Hearing intact. IX,X: Intact gag, swallow, & normal voice. XI: Sternocleidomastoid, trapezius function intact. XII: Tongue midline with normal movements. Special Tests: L'hermitte's Sign: Absent Straight Leg Raising: Absent Bilateral Motor Exam (0-5/5, N/T) STRENGTH 4+ out of 5 strength in upper extremity's bilaterally all major muscle groups without focal deficits generalized weakness 4- to 5 strength bilateral lower extremities all major muscle groups with generalized weakness no focal deficits. She is weak in her hip flexors currently still with 2-3/5 strength. She can fire her quads b/l but they are very weak. REFLEXES Upper Extremity: RIGHT [2]/4 LEFT [2]/4 Lower Extremity: RIGHT [2]/4 LEFT [2]/4 Pathological Reflexes Warren's: RIGHT [Absent] LEFT [Absent] Babinski: RIGHT [Absent] LEFT [Absent] Clonus: RIGHT [None] LEFT [None] SENSORY Intact Gait and Functional Evaluation: Lay Flat, Bedrest - Labs CBC & Chem 7: 03/29/22 11:55 03/29/22 11:55 Labs: Abnormal Lab Results - Last 24 Hours (Table) 03/29/22 03/29/22 03/29/22 Range/Units 08:43 11:44 11:55 WBC 17.0 H (3.8-10.6) k/uL RBC 3.64 L (3.80-5.40) m/uL RDW 18.9 H (11.5-15.5) % Neutrophils # (Manual) 14.90 H (1.3-7.7) k/uL Metamyelocytes # (Man) 0.17 H (0) k/uL Myelocytes # (Manual) 0.34 H (0) k/uL Nucleated RBCs 3 H (0-0) /100 WBC ESR 63 H (0-20) mm/hr Sodium (137-145) mmol/L BUN (7-17) mg/dL POC Glucose (mg/dL) 116 H (70-110) mg/dL Calcium (8.4-10.2) mg/dL AST (14-36) U/L C-Reactive Protein (<1.0) mg/dL Total Protein (6.3-8.2) g/dL Albumin (3.5-5.0) g/dL Procalcitonin 0.49 H (0.02-0.09) ng/mL Ur Leukocyte Esterase (Negative) Urine WBC (0-5) /hpf Urine Mucus (None) /hpf Urine Yeast (Budding) (None) /hpf 03/29/22 03/29/22 03/29/22 Range/Units 11:55 16:35 17:12 WBC (3.8-10.6) k/uL RBC (3.80-5.40) m/uL RDW (11.5-15.5) % Neutrophils # (Manual) (1.3-7.7) k/uL Metamyelocytes # (Man) (0) k/uL Myelocytes # (Manual) (0) k/uL Nucleated RBCs (0-0) /100 WBC ESR (0-20) mm/hr Sodium 131 L (137-145) mmol/L BUN 30 H (7-17) mg/dL POC Glucose (mg/dL) 112 H (70-110) mg/dL Calcium 8.0 L (8.4-10.2) mg/dL AST 39 H (14-36) U/L C-Reactive Protein 7.5 H (<1.0) mg/dL Total Protein 5.2 L (6.3-8.2) g/dL Albumin 2.6 L (3.5-5.0) g/dL Procalcitonin (0.02-0.09) ng/mL Ur Leukocyte Esterase Trace H (Negative) Urine WBC 8 H (0-5) /hpf Urine Mucus Rare H (None) /hpf Urine Yeast (Budding) Few H (None) /hpf 03/29/ Range/Units 20:04 WBC (3.8-10.6) k/uL RBC (3.80-5.40) m/uL RDW (11.5-15.5) % Neutrophils # (Manual) (1.3-7.7) k/uL Metamyelocytes # (Man) (0) k/uL Myelocytes # (Manual) (0) k/uL Nucleated RBCs (0-0) /100 WBC ESR (0-20) mm/hr Sodium (137-145) mmol/L BUN (7-17) mg/dL POC Glucose (mg/dL) 162 H (70-110) mg/dL Calcium (8.4-10.2) mg/dL AST (14-36) U/L C-Reactive Protein (<1.0) mg/dL Total Protein (6.3-8.2) g/dL Albumin (3.5-5.0) g/dL Procalcitonin (0.02-0.09) ng/mL Ur Leukocyte Esterase (Negative) Urine WBC (0-5) /hpf Urine Mucus (None) /hpf Urine Yeast (Budding) (None) /hpf Microbiology - Last 24 Hours (Table) 03/26/22 15:00 Blood Culture - Preliminary Blood No Growth after 72 hours Assessment and Plan Assessment: 1. 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 Status post 7 units PRBC and 1 pack platelets -bilateral lower extremity weakness, status post multiple controlled falls in- house -Enterobacter sepsis, UTI -status post cardiac arrest Plan: -Appreciate field service consultant and team management PCC and medicine -Appreciate cardiothoracic, Gen. surgery, nephrology, ID evaluations -Continue Activity: UP IN CHAIR. Turn q2 when in bed. -PT / OT DAILY work on increased strength in LE quads, hammys, etc for standing -OK for shower today with family and help from staff -Daily proning 5-10 min work up to 10 -Cont Abx for duration of stay -Caffiene daily 200 mg daily -Add Fioracet if able daily for LOZANO -Pain control: Adequate today ( Tylenol 1000 mg MEHUL, Oxy IR q4 hrs 10-15 mg titrated to pain (pt been on Cameron for 20 yrs), Cont Gabapentin,) -Meplex pads on sacral region with barrier cream. Cont turn. Sit at different angles. -Meds: reviewed -Trend labs, trend SED and CRP for markers -Transfusions to vitals -GI ppx: senna, Miralax -Continue Warren changed per protocol -Cont with FBS -DVT PPX: Mechanical only -Hygiene: Maintain dressing clean and dry. Meticulous cleaning after BMs away from incision site patient has had several instances on the floor where she was covered and bowel movement as well as urine up to her shoulders on her back. The wound needs to be kept meticulously clean. -Encourage IS 10x/hr -REHAB EULA
[2022-03-30] MEDS: INSULIN DETEMIR (LEVEMIR) 100 UNIT/ML SYR SQ SCH (09:12)
[2022-03-30] MEDS: ATORVASTATIN 20 MG TAB PO SCH (09:26)
[2022-03-30] MEDS: AMIODARONE 200 MG TAB PO SCH (09:26)
[2022-03-30] MEDS: DULoxetine HCL 60 MG CAPSULE.DR PO SCH (09:26)
[2022-03-30] MEDS: GABAPENTIN 400 MG CAP PO SCH ×3 (09:26→22:13)
[2022-03-30] MEDS: FUROSEMIDE 40 MG TAB PO SCH (09:26)
[2022-03-30] MEDS: METOPROLOL SUCCINATE (ER) 25 MG TAB.ER.24H PO SCH ×3 (09:26→22:14)
[2022-03-30] MEDS: SODIUM BICARBONATE TAB 650 MG TAB PO SCH ×2 (09:26→22:13)
[2022-03-30] MEDS: CHOLESTYRAMINE (WITH SUGAR) 4 GM PACKET PO SCH (09:28)
[2022-03-30] MEDS: PANTOPRAZOLE 40 MG/10 ML VIAL IVP SCH (09:28)
[2022-03-30] MEDS: MAG HYDROX/AL HYDROX/SIMETH 30 ML, diphenhydrAMINE ELIXIR 75 MG, LIDOCAINE VISCOUS 2% 3... PO SCH ×9 (09:28→22:15)
[2022-03-30 10:54] LABS: Anisocytosis Slight; HGB 10.3 gm/dL (11.4-16.0); Hypochromasia Moderate; MCH 32.1 pg (25.0-35.0); MCHC 33.2 g/dL (31.0-37.0); MCV 96.6 fL (80.0-100.0); Macrocytosis Slight; Mean Platelet Volume 9.2; Platelet Count 169 k/uL (150-450); Poikilocytosis Moderate; RBC 3.21 m/uL (3.80-5.40); RDW 19.1 % (11.5-15.5); WBC 12.7 k/uL (3.8-10.6)
--- NOTE | 2022-03-30 11:10 | P.PN ---
Subjective Patient is seen in follow-up for hyponatremia. Sodium level 131 yesterday. Resting in bed. Oral intake is fair. No vomiting or diarrhea. Has external catheter. Blood pressure stable. Vital signs are stable. General: Awake. No acute distress. HEENT: Head exam is unremarkable. LUNGS: Breath sounds decreased. HEART: Rate and Rhythm are regular. ABDOMEN: Soft, obese. EXTREMITITES: 1+ edema. Objective - Vital Signs Vital signs: Vital Signs Temp 97.5 F L 03/30/22 09:25 Pulse 112 H 03/30/22 09:25 Resp 18 03/30/22 09:25 BP 115/73 03/30/22 09:25 Pulse Ox 92 L 03/30/22 09:25 FiO2 35 03/10/22 10:13 Intake & Output 03/29/22 03/30/22 03/30/22 18:59 06:59 18:59 Output Total 100 954 Balance -100 -954 Output: Urine 100 950 Stool 4 Other: Voiding Method External Catheter Indwelling Catheter Indwelling Catheter # Bowel Movements 2 ABP, PAP, CO, CI - Last Documented Arterial Blood Pressure 158/70 - Labs CBC & Chem 7: 03/30/22 09:50 03/29/22 11:55 Labs: Abnormal Lab Results - Last 24 Hours (Table) 03/29/22 03/29/22 03/29/22 Range/Units 08:43 11:44 11:55 WBC 17.0 H (3.8-10.6) k/uL RBC 3.64 L (3.80-5.40) m/uL Hgb (11.4-16.0) gm/dL Hct (34.0-46.0) % RDW 18.9 H (11.5-15.5) % Neutrophils # (Manual) 14.90 H (1.3-7.7) k/uL Metamyelocytes # (Man) 0.17 H (0) k/uL Myelocytes # (Manual) 0.34 H (0) k/uL Nucleated RBCs 3 H (0-0) /100 WBC ESR 63 H (0-20) mm/hr Sodium (137-145) mmol/L BUN (7-17) mg/dL POC Glucose (mg/dL) 116 H (70-110) mg/dL Calcium (8.4-10.2) mg/dL AST (14-36) U/L C-Reactive Protein (<1.0) mg/dL Total Protein (6.3-8.2) g/dL Albumin (3.5-5.0) g/dL Procalcitonin 0.49 H (0.02-0.09) ng/mL Ur Leukocyte Esterase (Negative) Urine WBC (0-5) /hpf Urine Mucus (None) /hpf Urine Yeast (Budding) (None) /hpf 03/29/22 03/29/22 03/29/22 Range/Units 11:55 16:35 17:12 WBC (3.8-10.6) k/uL RBC (3.80-5.40) m/uL Hgb (11.4-16.0) gm/dL Hct (34.0-46.0) % RDW (11.5-15.5) % Neutrophils # (Manual) (1.3-7.7) k/uL Metamyelocytes # (Man) (0) k/uL Myelocytes # (Manual) (0) k/uL Nucleated RBCs (0-0) /100 WBC ESR (0-20) mm/hr Sodium 131 L (137-145) mmol/L BUN 30 H (7-17) mg/dL POC Glucose (mg/dL) 112 H (70-110) mg/dL Calcium 8.0 L (8.4-10.2) mg/dL AST 39 H (14-36) U/L C-Reactive Protein 7.5 H (<1.0) mg/dL Total Protein 5.2 L (6.3-8.2) g/dL Albumin 2.6 L (3.5-5.0) g/dL Procalcitonin (0.02-0.09) ng/mL Ur Leukocyte Esterase Trace H (Negative) Urine WBC 8 H (0-5) /hpf Urine Mucus Rare H (None) /hpf Urine Yeast (Budding) Few H (None) /hpf 03/29/22 03/30/22 Range/Units 20:04 09:50 WBC 12.7 H (3.8-10.6) k/uL RBC 3.21 L (3.80-5.40) m/uL Hgb 10.3 L (11.4-16.0) gm/dL Hct 31.0 L (34.0-46.0) % RDW 19.1 H (11.5-15.5) % Neutrophils # (Manual) (1.3-7.7) k/uL Metamyelocytes # (Man) (0) k/uL Myelocytes # (Manual) (0) k/uL Nucleated RBCs (0-0) /100 WBC ESR (0-20) mm/hr Sodium (137-145) mmol/L BUN (7-17) mg/dL POC Glucose (mg/dL) 162 H (70-110) mg/dL Calcium (8.4-10.2) mg/dL AST (14-36) U/L C-Reactive Protein (<1.0) mg/dL Total Protein (6.3-8.2) g/dL Albumin (3.5-5.0) g/dL Procalcitonin (0.02-0.09) ng/mL Ur Leukocyte Esterase (Negative) Urine WBC (0-5) /hpf Urine Mucus (None) /hpf Urine Yeast (Budding) (None) /hpf Microbiology - Last 24 Hours (Table) 03/26/22 15:00 Blood Culture - Preliminary Blood No Growth after 72 hours Assessment and Plan Plan: Assessment: 1. Hyponatremia. Hypervolemic. Urine sodium was 30 and urine osmolality 515 on 03/08/2022. TSH normal dated 03/09/2022. Cortisol level not low. Status post [facility] this admission. Sodium level 131 yesterday. 2. Enterobacter bacteremia and UTI. ID following. Also on Questran for diarrhea. On antibiotics. 3. Metabolic acidosis secondary to GI losses. On oral bicarb. Improved. 4. Diabetes mellitus. 5. Lower extremity edema on Lasix. 6. Bilateral hydronephrosis. Urology consult. Plan: Maintain oral Lasix. 1200 mL fluid restriction. Encourage oral intake. Continue to monitor renal function and urine output.
[2022-03-30 11:39] LABS: Glucose,Whole Blood 100 mg/dL (70-110)
[2022-03-30 11:43] LABS: ALT 33 U/L (4-34); AST 42 U/L (14-36); African American GFR (CKD) >90 (>60 ml/min/1.73 sqM); Albumin 2.2 g/dL (3.5-5.0); Alkaline Phosphatase 73 U/L (38-126); Anion Gap 6 mmol/L; Blood Urea Nitrogen 24 mg/dL (7-17); Calcium 7.5 mg/dL (8.4-10.2); Carbon Dioxide 23 mmol/L (22-30); Chloride 103 mmol/L (98-107); Glucose 84 mg/dL (74-99); Magnesium 1.8 mg/dL (1.6-2.3); Non-African American GFR(CKD) >90 (>60 ml/min/1.73 sqM); Potassium 4.2 mmol/L (3.5-5.1); Sodium 132 mmol/L (137-145); Total Protein 4.3 g/dL (6.3-8.2)
--- NOTE | 2022-03-30 13:17 | P.PN ---
Subjective Progress Note Date: 03/30/22 CHIEF COMPLAINT: Spinal surgery HISTORY OF PRESENT ILLNESS: Surgical service following regards to GI bleed. Apparently patient had a bloody stool last night. Hemoglobin did trend down from 11-10. Patient reports that the abdominal pain she was having yesterday has improved. CAT scan had shown evidence of possible fecal impaction. Rectal exam performed by Dr. Arce did reveal soft brown stool. Afebrile. Mildly tachycardic. WBC 12.7 hemoglobin 10.3 platelets 169 sodium is 132 potassium 4.2 creatinine 0.41 PHYSICAL EXAM: VITAL SIGNS: Reviewed. GENERAL: Well-developed in no acute distress. HEENT: No sclera icterus. Extraocular movements grossly intact. Moist buccal mucosa. Head is atraumatic, normocephalic. ABDOMEN: Soft. Obese. Nondistended. Nontender. NEUROLOGIC: Alert and oriented. Cranial nerves II through XII grossly intact. ASSESSMENT: 1. Acute GI bleed with maroon stools and recently restarting Xarelto 2. Fecal impaction 3. Lumbar decompression/fusion and then with washout and dural repair 4. Cardiac arrest 5. EGD on 03/19/2022 that showed mild gastritis and esophagitis no active bleeding PLAN: -Soap will enemas ordered for fecal impaction -Keep Xarelto on hold -Continue monitor hemoglobin -Continue to monitor for any signs or symptoms of bleeding -Patient would have a difficult time undergoing bowel prep for colonoscopy due to mobility issues. At this time we will continue to observe patient -Continue PPI Physician Applications Developer note has been reviewed by physician. Signing provider agrees with the documented findings, assessment, and plan of care. I have personally seen and examined the patient, reviewed the RUBBER STAM[employer] AND DIES SUPERVISOR /PAs history, exam and MDM and agree with the assessment and plan as written. Based on total visit time, I have performed more than 50% of the visit. As above: Patient's CAT scan showed moderate to large volume of feces in the rectum. Digital rectal examination reveals soft stool filling the rectal vault. Manual disimpaction took place. The consistency of the stool should allow for the patient to have adequate bowel function with appropriate bowel regimen and enemas. Begin soapsuds enemas today. Interestingly no blood noted on digital rectal examination with stool-appearing brown in color. Will follow. Objective - Vital Signs Vital signs: Vital Signs Temp 97.5 F L 03/30/22 09:25 Pulse 112 H 03/30/22 09:25 Resp 18 03/30/22 09:25 BP 115/73 03/30/22 09:25 Pulse Ox 92 L 03/30/22 09:25 FiO2 35 03/10/22 10:13 Intake & Output 03/29/22 03/30/22 03/30/22 18:59 06:59 18:59 Output Total 100 954 Balance -100 -954 Output: Urine 100 950 Stool 4 Other: Voiding Method External Catheter Indwelling Catheter Indwelling Catheter # Bowel Movements 2 ABP, PAP, CO, CI - Last Documented Arterial Blood Pressure 158/70 - Labs CBC & Chem 7: 03/30/22 09:50 03/30/22 09:50 Labs: Abnormal Lab Results - Last 24 Hours (Table) 03/29/22 03/29/22 03/29/22 Range/Units 08:43 11:55 16:35 WBC 17.0 H (3.8-10.6) k/uL RBC (3.80-5.40) m/uL Hgb (11.4-16.0) gm/dL Hct (34.0-46.0) % RDW (11.5-15.5) % Neutrophils # (Manual) 14.90 H (1.3-7.7) k/uL Metamyelocytes # (Man) 0.17 H (0) k/uL Myelocytes # (Manual) 0.34 H (0) k/uL Nucleated RBCs 3 H (0-0) /100 WBC ESR 63 H (0-20) mm/hr Sodium (137-145) mmol/L BUN (7-17) mg/dL Creatinine (0.52-1.04) mg/dL POC Glucose (mg/dL) 112 H (70-110) mg/dL Calcium (8.4-10.2) mg/dL AST (14-36) U/L Total Protein (6.3-8.2) g/dL Albumin (3.5-5.0) g/dL Procalcitonin 0.49 H (0.02-0.09) ng/mL Ur Leukocyte Esterase (Negative) Urine WBC (0-5) /hpf Urine Mucus (None) /hpf Urine Yeast (Budding) (None) /hpf 03/29/22 03/29/22 03/30/22 Range/Units 17:12 20:04 09:50 WBC 12.7 H (3.8-10.6) k/uL RBC 3.21 L (3.80-5.40) m/uL Hgb 10.3 L (11.4-16.0) gm/dL Hct 31.0 L (34.0-46.0) % RDW 19.1 H (11.5-15.5) % Neutrophils # (Manual) (1.3-7.7) k/uL Metamyelocytes # (Man) (0) k/uL Myelocytes # (Manual) (0) k/uL Nucleated RBCs (0-0) /100 WBC ESR (0-20) mm/hr Sodium (137-145) mmol/L BUN (7-17) mg/dL Creatinine (0.52-1.04) mg/dL POC Glucose (mg/dL) 162 H (70-110) mg/dL Calcium (8.4-10.2) mg/dL AST (14-36) U/L Total Protein (6.3-8.2) g/dL Albumin (3.5-5.0) g/dL Procalcitonin (0.02-0.09) ng/mL Ur Leukocyte Esterase Trace H (Negative) Urine WBC 8 H (0-5) /hpf Urine Mucus Rare H (None) /hpf Urine Yeast (Budding) Few H (None) /hpf 03/30/22 Range/Units 09:50 WBC (3.8-10.6) k/uL RBC (3.80-5.40) m/uL Hgb (11.4-16.0) gm/dL Hct (34.0-46.0) % RDW (11.5-15.5) % Neutrophils # (Manual) (1.3-7.7) k/uL Metamyelocytes # (Man) (0) k/uL Myelocytes # (Manual) (0) k/uL Nucleated RBCs (0-0) /100 WBC ESR (0-20) mm/hr Sodium 132 L (137-145) mmol/L BUN 24 H (7-17) mg/dL Creatinine 0.41 L (0.52-1.04) mg/dL POC Glucose (mg/dL) (70-110) mg/dL Calcium 7.5 L (8.4-10.2) mg/dL AST 42 H (14-36) U/L Total Protein 4.3 L (6.3-8.2) g/dL Albumin 2.2 L (3.5-5.0) g/dL Procalcitonin (0.02-0.09) ng/mL Ur Leukocyte Esterase (Negative) Urine WBC (0-5) /hpf Urine Mucus (None) /hpf Urine Yeast (Budding) (None) /hpf Microbiology - Last 24 Hours (Table) 03/26/22 15:00 Blood Culture - Preliminary Blood No Growth after 72 hours
[2022-03-30] MEDS: CAFFEINE-SODIUM BENZOATE 500 MG in SODIUM CHLORIDE 0.9% 100 ML IVPB SCH (13:35)
--- NOTE | 2022-03-30 13:52 | P.GSCN ---
History of Present Illness Consult date: 03/30/22 Reason for Consult: bilateral hydronephrosis History of present illness: 71-year-old female who underwent lumbar fusion with Dr. Alexander on 02/24/2022. Patient had a cardiac arrest at the end of her procedure and required ACLS and CPR. urology is consulted for bilateral hydronephrosis that was seen on the CT scan. She's denies any voiding dysfunction at baseline, currently has an external urinary catheter for urinary incontinence. H ydronephrosis is new compared to a CT scan that was done earlier this month. No previous history of kidney stones or renal surgeries. Creatinine is stable at baseline was at 0.52. on CT review evidence of bilateral hydronephrosis with dilated ureter down to the bladder, and significantly distended bladder. Review of Systems - Constitutional Denies fever, Denies weight loss - EENT Ears, nose, mouth and throat: Denies dysphagia - Cardiovascular Denies chest pain, Denies shortness of breath - Respiratory Denies cough, Denies 7 - Gastrointestinal Reports as per HPI - Genitourinary Genitourinary: Denies dysuria, Denies hematuria Past Medical History Past Medical History: Atrial Fibrillation, Atrial Flutter, Cancer, Chest Pain / Angina, GERD/Reflux, Hyperlipidemia, Hypertension, Osteoarthritis (OA), Thyroid Disorder Additional Past Medical History / Comment(s): Rr breast cancer, hiatal hernia, chronic low back pain. partially paralyzed rt diaphragm, infection rt breast after surgery History of Any Multi-Drug Resistant Organisms: None Reported Past Surgical History: Back Surgery, Bladder Surgery, Breast Surgery, Cardiac Ablation, Cholecystectomy, EPS, Heart Catheterization, Hernia Repair, Hysterectomy, Joint Replacement, Orthopedic Surgery Additional Past Surgical History / Comment(s): R breast core bx/needle loc, R breast lumpectomy/axillary node dissection, CHATO, cardioversion, low back surgeries x3 with plate/screws, total R knee x3, R foot multiple surgeries for spur/neuromas, L foot cystectomy, R elbow injury w/ surgery, R wrist ganglion cystectomy, partial thyroidectomy, 4 abdominal hernia repairs, bladder suspension, colonoscopy, loki cataract, laser loki eye surgery 01/31/22 Past Anesthesia/Blood Transfusion Reactions: Previous Problems w/ Anesthesia, Postoperative Nausea & Vomiting (PONV) Additional Past Anesthesia/Blood Transfusion Reaction / Comm: On ventilator for 2 days after cardiac ablation d/t diaphragm paralysis-rt side Past Psychological History: Depression Additional Psychological History / Comment(s): . Smoking Status: Never smoker Past Alcohol Use History: Rare Past Drug Use History: None Reported - Past Family History Father Family Medical History: Cancer Additional Family Medical History / Comment(s): . Mother Family Medical History: Cancer, Deep Vein Thrombosis (DVT) Additional Family Medical History / Comment(s): Skin and breast cancer. Medications and Allergies Home Medications Medication Instructions Recorded Confirmed Type Levothyroxine Sodium [Synthroid] 88 mcg PO QAM 02/19/14 02/20/22 History HYDROcodone/APAP 10-325MG [[place] 1 tab PO Q4H PRN 12/23/18 02/20/22 History 10-325] Atorvastatin [Lipitor] 10 mg PO DAILY #30 tab 04/10/19 02/20/22 Rx atenoloL [Tenormin] 100 mg PO QAM 05/10/20 02/20/22 History Amlodipine Besylate/Valsartan 1 each PO QAM 02/02/22 02/20/22 History [Exforge 5-320 mg Tablet] DULoxetine HCL [Cymbalta] 60 mg PO DAILY 02/02/22 02/20/22 History Rivaroxaban [Xarelto] 20 mg PO HS 02/02/22 02/20/22 History Rosuvastatin Calcium 10 mg PO QAM 02/02/22 02/20/22 History Allergies Allergy/AdvReac Type Severity Reaction Status Date / Time cephalexin monohydrate Allergy Mild Rash/Hives Verified 02/24/22 05:56 [From Keflex] Iodinated Contrast Media Allergy Mild Rash/Hives Verified 02/24/22 05:56 [Iodinated Contrast Media - IV Dye] Sulfa (Sulfonamide Allergy Mild Rash/Hives Verified 02/24/22 05:56 Antibiotics) adhesive tape AdvReac Severe Rash/Hives Uncoded 02/24/22 05:56 Surgical - Exam Vital Signs Temp Pulse Resp BP Pulse Ox 97.7 F 66 16 113/56 96 02/24/22 06:42 02/24/22 06:42 02/24/22 06:42 02/24/22 06:42 02/24/22 06:42 - General no distress, no pain - Eyes normal ocular movement, no pale - ENT normal nares, normal mucosa - Respiratory normal expansion, normal respiratory effort - Abdomen Abdomen: soft, non tender - Psychiatric oriented to time, oriented to person, oriented to place Results - Labs 03/30/22 09:50 03/30/22 09:50 Abnormal Lab Results - Last 24 Hours (Table) 03/29/22 03/29/22 03/29/22 Range/Units 08:43 11:55 16:35 WBC 17.0 H (3.8-10.6) k/uL RBC (3.80-5.40) m/uL Hgb (11.4-16.0) gm/dL Hct (34.0-46.0) % RDW (11.5-15.5) % Neutrophils # (Manual) 14.90 H (1.3-7.7) k/uL Metamyelocytes # (Man) 0.17 H (0) k/uL Myelocytes # (Manual) 0.34 H (0) k/uL Nucleated RBCs 3 H (0-0) /100 WBC ESR 63 H (0-20) mm/hr Sodium (137-145) mmol/L BUN (7-17) mg/dL Creatinine (0.52-1.04) mg/dL POC Glucose (mg/dL) 112 H (70-110) mg/dL Calcium (8.4-10.2) mg/dL AST (14-36) U/L Total Protein (6.3-8.2) g/dL Albumin (3.5-5.0) g/dL Procalcitonin 0.49 H (0.02-0.09) ng/mL Ur Leukocyte Esterase (Negative) Urine WBC (0-5) /hpf Urine Mucus (None) /hpf Urine Yeast (Budding) (None) /hpf 03/29/22 03/29/22 03/30/22 Range/Units 17:12 20:04 09:50 WBC 12.7 H (3.8-10.6) k/uL RBC 3.21 L (3.80-5.40) m/uL Hgb 10.3 L (11.4-16.0) gm/dL Hct 31.0 L (34.0-46.0) % RDW 19.1 H (11.5-15.5) % Neutrophils # (Manual) (1.3-7.7) k/uL Metamyelocytes # (Man) (0) k/uL Myelocytes # (Manual) (0) k/uL Nucleated RBCs (0-0) /100 WBC ESR (0-20) mm/hr Sodium (137-145) mmol/L BUN (7-17) mg/dL Creatinine (0.52-1.04) mg/dL POC Glucose (mg/dL) 162 H (70-110) mg/dL Calcium (8.4-10.2) mg/dL AST (14-36) U/L Total Protein (6.3-8.2) g/dL Albumin (3.5-5.0) g/dL Procalcitonin (0.02-0.09) ng/mL Ur Leukocyte Esterase Trace H (Negative) Urine WBC 8 H (0-5) /hpf Urine Mucus Rare H (None) /hpf Urine Yeast (Budding) Few H (None) /hpf 03/30/22 Range/Units 09:50 WBC (3.8-10.6) k/uL RBC (3.80-5.40) m/uL Hgb (11.4-16.0) gm/dL Hct (34.0-46.0) % RDW (11.5-15.5) % Neutrophils # (Manual) (1.3-7.7) k/uL Metamyelocytes # (Man) (0) k/uL Myelocytes # (Manual) (0) k/uL Nucleated RBCs (0-0) /100 WBC ESR (0-20) mm/hr Sodium 132 L (137-145) mmol/L BUN 24 H (7-17) mg/dL Creatinine 0.41 L (0.52-1.04) mg/dL POC Glucose (mg/dL) (70-110) mg/dL Calcium 7.5 L (8.4-10.2) mg/dL AST 42 H (14-36) U/L Total Protein 4.3 L (6.3-8.2) g/dL Albumin 2.2 L (3.5-5.0) g/dL Procalcitonin (0.02-0.09) ng/mL Ur Leukocyte Esterase (Negative) Urine WBC (0-5) /hpf Urine Mucus (None) /hpf Urine Yeast (Budding) (None) /hpf Microbiology - Last 24 Hours (Table) 03/26/22 15:00 Blood Culture - Preliminary Blood No Growth after 72 hours Diabetes panel 03/30/22 Range/Units 09:50 Sodium 132 L (137-145) mmol/L Potassium 4.2 (3.5-5.1) mmol/L Chloride 103 (98-107) mmol/L Carbon Dioxide 23 (22-30) mmol/L BUN 24 H (7-17) mg/dL Creatinine 0.41 L (0.52-1.04) mg/dL Glucose 84 (74-99) mg/dL Calcium 7.5 L (8.4-10.2) mg/dL AST 42 H (14-36) U/L ALT 33 (4-34) U/L Alkaline Phosphatase 73 (38-126) U/L Total Protein 4.3 L (6.3-8.2) g/dL Albumin 2.2 L (3.5-5.0) g/dL Calcium panel 03/30/22 Range/Units 09:50 Calcium 7.5 L (8.4-10.2) mg/dL Albumin 2.2 L (3.5-5.0) g/dL Pituitary panel 03/30/22 Range/Units 09:50 Sodium 132 L (137-145) mmol/L Potassium 4.2 (3.5-5.1) mmol/L Chloride 103 (98-107) mmol/L Carbon Dioxide 23 (22-30) mmol/L BUN 24 H (7-17) mg/dL Creatinine 0.41 L (0.52-1.04) mg/dL Glucose 84 (74-99) mg/dL Calcium 7.5 L (8.4-10.2) mg/dL Adrenal panel 03/30/22 Range/Units 09:50 Sodium 132 L (137-145) mmol/L Potassium 4.2 (3.5-5.1) mmol/L Chloride 103 (98-107) mmol/L Carbon Dioxide 23 (22-30) mmol/L BUN 24 H (7-17) mg/dL Creatinine 0.41 L (0.52-1.04) mg/dL Glucose 84 (74-99) mg/dL Calcium 7.5 L (8.4-10.2) mg/dL Total Bilirubin 1.0 (0.2-1.3) mg/dL AST 42 H (14-36) U/L ALT 33 (4-34) U/L Alkaline Phosphatase 73 (38-126) U/L Total Protein 4.3 L (6.3-8.2) g/dL Albumin 2.2 L (3.5-5.0) g/dL Assessment and Plan Assessment: 71-year-old female history of bilateral hydronephrosis. On review of CT evidence of new bilateral hydronephrosis with dilated ureter down distended bladder. Bilateral hydronephrosis is mostly secondary to urinary retention. Her creatinine is stable at baseline. At this point given the evidence of bilateral hydronephrosis recommend Warren catheter insertion. -recommend inserting a Warren catheter, recommend keeping the catheter until the patient is back to her baseline
--- NOTE | 2022-03-30 14:46 | P.PN ---
Subjective Progress Note Date: 03/30/22 Principal diagnosis: UTI and bacteremia Patient is a 71-year-old female with a past medical history difficult for atrial fibrillation flutter hypertension hyperlipidemia hypothyroidism right breast cancer electively admitted to the hospital more than 2 weeks ago 022 for T10 to lumbar spine revision decompression and posterior lateral interbody fusion, patient did have a episode of hypotension and elevated white count requiring admission to the ICU patient did have a positive UA and gram- negative bacteremia and is scheduled for exploration of the thoracolumbar incision completed on 03/09/2022 with apparently no evidence of any abscess On today's evaluation that is 03/30/2022 the patient remains to be afebrile , the patient is breathing comfortably on room air, the patient diarrhea has improved, patient did have a abdominal pelvis with evidence of bilateral hydronephrosis for the Warren catheter has been placed and there was possible rectal impaction for which the patient be followed by general surgery denies any worsening pain to the lower lumbar spine Objective - Vital Signs Vital signs: Vital Signs Temp 97.5 F L 03/30/22 09:25 Pulse 112 H 03/30/22 09:25 Resp 18 03/30/22 09:25 BP 115/73 03/30/22 09:25 Pulse Ox 92 L 03/30/22 09:25 FiO2 35 03/10/22 10:13 Intake & Output 03/29/22 03/30/22 03/30/22 18:59 06:59 18:59 Output Total 100 954 900 Balance -100 -954 -900 Output: Urine 100 950 900 Stool 4 Other: Voiding Method External Catheter Indwelling Catheter Indwelling Catheter # Bowel Movements 2 2 ABP, PAP, CO, CI - Last Documented Arterial Blood Pressure 158/70 - Exam GENERAL DESCRIPTION: An elderly female lying in bed in no distress RESPIRATORY SYSTEM: Unlabored breathing , decreased breath sounds at bases HEART: S1 S2 regular rate and rhythm , ABDOMEN: Soft , no tenderness Thoracolumbar spine upper incision stitches are out incision is healed minimal maceration of the lower end no purulent drainage was noticed EXTREMITIES: Diffuse swelling bilateral lower extremity - Labs CBC & Chem 7: 03/30/22 09:50 03/30/22 09:50 Labs: Abnormal Lab Results - Last 24 Hours (Table) 03/29/22 03/29/22 03/29/22 Range/Units 08:43 11:55 16:35 WBC 17.0 H (3.8-10.6) k/uL RBC (3.80-5.40) m/uL Hgb (11.4-16.0) gm/dL Hct (34.0-46.0) % RDW (11.5-15.5) % Neutrophils # (Manual) 14.90 H (1.3-7.7) k/uL Metamyelocytes # (Man) 0.17 H (0) k/uL Myelocytes # (Manual) 0.34 H (0) k/uL Nucleated RBCs 3 H (0-0) /100 WBC ESR 63 H (0-20) mm/hr Sodium (137-145) mmol/L BUN (7-17) mg/dL Creatinine (0.52-1.04) mg/dL POC Glucose (mg/dL) 112 H (70-110) mg/dL Calcium (8.4-10.2) mg/dL AST (14-36) U/L Total Protein (6.3-8.2) g/dL Albumin (3.5-5.0) g/dL Procalcitonin 0.49 H (0.02-0.09) ng/mL Ur Leukocyte Esterase (Negative) Urine WBC (0-5) /hpf Urine Mucus (None) /hpf Urine Yeast (Budding) (None) /hpf 03/29/22 03/29/22 03/30/22 Range/Units 17:12 20:04 09:50 WBC 12.7 H (3.8-10.6) k/uL RBC 3.21 L (3.80-5.40) m/uL Hgb 10.3 L (11.4-16.0) gm/dL Hct 31.0 L (34.0-46.0) % RDW 19.1 H (11.5-15.5) % Neutrophils # (Manual) (1.3-7.7) k/uL Metamyelocytes # (Man) (0) k/uL Myelocytes # (Manual) (0) k/uL Nucleated RBCs (0-0) /100 WBC ESR (0-20) mm/hr Sodium (137-145) mmol/L BUN (7-17) mg/dL Creatinine (0.52-1.04) mg/dL POC Glucose (mg/dL) 162 H (70-110) mg/dL Calcium (8.4-10.2) mg/dL AST (14-36) U/L Total Protein (6.3-8.2) g/dL Albumin (3.5-5.0) g/dL Procalcitonin (0.02-0.09) ng/mL Ur Leukocyte Esterase Trace H (Negative) Urine WBC 8 H (0-5) /hpf Urine Mucus Rare H (None) /hpf Urine Yeast (Budding) Few H (None) /hpf 03/30/22 Range/Units 09:50 WBC (3.8-10.6) k/uL RBC (3.80-5.40) m/uL Hgb (11.4-16.0) gm/dL Hct (34.0-46.0) % RDW (11.5-15.5) % Neutrophils # (Manual) (1.3-7.7) k/uL Metamyelocytes # (Man) (0) k/uL Myelocytes # (Manual) (0) k/uL Nucleated RBCs (0-0) /100 WBC ESR (0-20) mm/hr Sodium 132 L (137-145) mmol/L BUN 24 H (7-17) mg/dL Creatinine 0.41 L (0.52-1.04) mg/dL POC Glucose (mg/dL) (70-110) mg/dL Calcium 7.5 L (8.4-10.2) mg/dL AST 42 H (14-36) U/L Total Protein 4.3 L (6.3-8.2) g/dL Albumin 2.2 L (3.5-5.0) g/dL Procalcitonin (0.02-0.09) ng/mL Ur Leukocyte Esterase (Negative) Urine WBC (0-5) /hpf Urine Mucus (None) /hpf Urine Yeast (Budding) (None) /hpf Microbiology - Last 24 Hours (Table) 03/26/22 15:00 Blood Culture - Preliminary Blood No Growth after 72 hours Assessment and Plan (1) Gram-negative bacteremia Current Visit: Yes Status: Acute Code(s): R78.81 - BACTEREMIA SNOMED Code(s): 179061288813 Plan: 1patient with SIRS/sepsis in this patient who has been in the hospital for 2 weeks with elective admission to the hospital for thoracolumbar spine revision did have a cardiac arrest requiring resuscitation , patient did have evidence of Enterobacter UTI with secondary bacteremia for which the patient has completed her antibiotic therapy 2patient with diarrhea seemed to have responded to Questran to continue 3elevated white count and concern for possible maceration of the lower end of the incision cultures obtained per hospitalist which are currently growing enterococcus and gram-negative as well as Patsy possible colonization however the patient is high risk of infection CT was discussed with the spine surgery. Patient white count is seen to be trending down and will continue with Zosyn and monitor clinical course closely Time with Patient: Less than 30
--- NOTE | 2022-03-30 15:02 | P.PN ---
Subjective Progress Note Date: 03/30/22 Hospital course: Patient is a 71 yo CF with a hx of A fib s/p ablation, GERD, hypertension, dyslipidemia, and right diaphragmatic paralysis who presented for T10 to Pelvis decompression and fusion with revision. Blood loss and the case was approximately 1900 mL. During her operative course she required phenylephrine IV infusion, Vasopressin IVP. She also received TXA gtt. She received 7 L of lactated Ringer's. She received 1 amp of sodium bicarb intaop. She also received albumin. Her operative course was complicated with a cardiac arrest. During the case she developed A. fib with RVR and then quickly transitioned into bradycardia with a low end-tidal CO2. She received 0.4 of atropine and CPR was started. She received epinephrine 0.5. She achieved ROSC. Total down time was less than 5 minutes. She was extubated on 02/25. She continued to do well with struggled with pain. She was downgraded from ICU on 03/03. On 03/06/22 patient was noted to have a significant drop in hemoglobin from 10.0 down to 7.5 and upon reevaluation on 03/07 was found to have hemoglobin of 5.4, patient required multiple transfusions. She has received a total of 7 units PRBCs and 1 unit of platelets. She underwent a CT abdomen and pelvis and was found to have a large right chest hematoma dilated small bowel concerning for ileus. Patient was evaluated by cardiothoracic surgery and they recommended conservative management. On 03/07, patient was noted to be hypotensive with elevated WBC count of 42.3, with worsening renal function and hyperkalamia. Patient was treated with NS bolus, IV insulin/D50, Albuterol and sodium bicarbonate. She was transferred back to the ICU for septic shock requiring Levophed. Patient was started on Vancomycin and Cefepime. Blood and urine cultures were obtained and positive for Enterobacter. Infectious disease was consulted and patient was continued on Cefepime for treatment of Enterobacter UTI with secondary bacteremia and Vancomycin was discontinued. Patient was later weaned off of vasopressors and again transferred out of the ICU. Patient was started on Lasix for treatment of acute on chronic systolic heart failure with EF of 35-40%. Patient continued on Protonix for GI prophylaxis, amiodarone and metoprolol for atrial fibrillation with RVR sodium bicarb for treatment of metabolic acidosis. Pt's Xarelto remains hold at this time. Patient was evaluated by PMR and is currently not a candidate for inpatient rehab. She has been cleared by orthopedic surgery to start working with physical therapy and current plans are for patient to be [facility]. On 03/26/22 patient was again found to have elevating leukocytosis and repeat Wound cultures were obtained and showing no growth to date. Patient's WBC count continued to elevate, surgical wound showing no signs of infection and patient denies having any increased pain or complaints. She denies having any shortness of breath, cough or congestion and has remained afebrile. Worsening leukocytosis possibly secondary to development of atelectasis resulting from extended hospitalization and bedridden time frame or may be reactive secondary to daily steroids with Decadron. We will obtain a chest x-ray for further evaluation and patient again educated and encouraged on use of incentive spirometer. Prelimina ry Wound cultures are positive for gram-negative bacilli, group D enterococcus, and Patsy albicans... Culture results are likely resulting from contamination of the wound from pt's brief. We will await final culture and sensitivity report. Infectious disease broadened antibiotic coverage with Zosyn. Wound to be Open to air and discussed importance of keeping wound clean and dry with RN. Again, postsurgical wound is not showing any signs of infection including erythema, drainage, increased warmth, or foul odor. Nursing staff reported overnight on 03/28/22 patient again developed episodes of melena and at that time Dr. Arce, general surgeon was re-consulted. Upon assessment morning . Patient complaining of left upper and left lower quadrant abdominal pain and new-onset. Stat orders place. CT abdomen and pelvis, unable to use contrast as patient reports ALLERGIC reaction includes rash/hives and hypotension. Due to patient's recurrent episodes of hypotension will err on the side of caution and complete imaging without contrast. CT abdomen and pelvis revealing bilateral hydronephrosis unable to rule out obstructive etiology, concerns for fecal impaction, and persistent previously known right anterior chest wall hematoma. General surgery following and to evaluate concerns of fecal impaction. Warren catheter ordered for insertion and urology consulted for evaluation of bilateral hydronephrosis. Physical examination: Upon assessment this morning 03/30. Patient reports continued left upper and left lower quadrant pain and otherwise denies having any new complaints or concerns at this time. General surgery has evaluated in ordering for soapsuds enemas to be completed for treatment of fecal impaction. Awaiting urology to evaluate for bilateral hydronephrosis, patient has Warren catheter in place and to remain in place until further orders from urology. Vital signs, morning labs, and I's and O's were reviewed. Urinary output over the past 24 hours documented 1050 mL and renal function unremarkable with BUN 24, creatinine 0.41, and GFR greater than 90. Sodium has improved to 132. Patient remains on sodium bicarb with nephrology following. Leukocytosis significantly improved down to 12.7. General: ill appearing, mild distress due to pain, appears at stated age, Derm: warm, dry. Surgical incision intact with sutures remaining in place to lower portion of surgical incision secondary to mild maceration to the lower portion of incision with no signs of infection noted including drainage, foul odor, erythema, or increased warmth Head: atraumatic, normocephalic, symmetric Eyes: EOMI, no lid lag, anicteric sclera Mouth: no lip lesion, dry membranes moist Cardiovascular: S1S2 irregular, no murmur Lungs: Respirations even, regular, and unlabored on room air. Lungs clear to auscultation bilaterally Ext: no gross muscle atrophy, 1+ BLE nonpitting edema, no contractures Abd: External catheter in place. Obese. Non tender to palpation. Neuro: Moving all 4 extremities independently, sensation and movement equal and intact in bilateral lower extremities. Patient continues with equal Bilateral lower extremity weakness, likely secondary to bedridden state for the past 34 days. Psych: Alert, oriented, appropriate affect Assessment and plan of care: Septic shock resulting from Enterobacter cloacae UTI with secondary bacteremia Status post Cardiac arrest with ROSC Enterobacter cloacae UTI with secondary bacteremia Lactic acidosis Leukocytosis -Patient was successfully weaned off mechanical ventilation and pressors and transferred out of ICU. -Completed a course of cefepime and started back on antibiotics for worsening le ukocytosis, currently on Zosyn. -Blood cultures + Enterobacter cloacae. Repeat cultures negative on 03/07/22 and 03/26/22. -Urine culture + Enterobacter cloacae. -Worsening leukocytosis possibly reactive secondary to daily steroids with Decadron -We will obtain a chest x-ray for further evaluation and patient again educated and encouraged on use of incentive spirometer. -Preliminary Wound cultures are positive for gram-negative bacilli, group D enterococcus, and Patsy albicans... Culture results are possibly resulting from contamination of the wound from pt's brief. We will await final culture and sensitivity report. Infectious disease broadened antibiotic coverage with Zosyn at this time. -Postsurgical incision be kept Open to air and discussed the importance of keeping wound clean and dry with RN. -Telemetry monitoring. -Pulmonology/import and export clerk following and cleared patient from their perspective on 03/22/22 -Infectious disease following Left upper and lower quadrant abdominal pain Fecal impaction -CT abdomen and pelvis concerning for possible fecal impaction. -Gen. surgery was consulted for reevaluation. Bilateral hydronephrosis, likely secondary to urinary retention -CT abdomen and pelvis revealing bilateral hydronephrosis unable to rule out obstructive etiology. -Renal function stable with the exception of mildly elevated BUN at 24 and creatinine of 0.41.. Documented urine output over the past 24 hours 1050 mL. -Urology consulted, appreciate further recommendations. -Will defer ordering of renal ultrasound after urology evaluation. Acute on Chronic Systolic CHF -Echo shows EF 35-40% with severe pulmonary HTN, moderate MR. -Cardiology following -Continue amiodarone, metoprolol, and furosemide -Patient initially started on Aldactone but was discontinued secondary to hyperkalemia -Continue close monitoring of I's and O's Prerenal azotemia, improving Hyponatremia, improving -Na 132, BUN 24. Morning labs are pending. -Nephrology following. Prediabetes with hyperglycemia, now hypoglycemia -Likely steroid induced -A1c is 6 - Levimir -Continue with sliding scale Acute blood loss anemia, resolved Right breast hematoma GI bleed, ischemic bowel ruled out. -Status post a total of 7 units PRBCs and 1 unit of platelets. -Gen. surgery following anticipation for EGD which revealed gastritis and mild e sophagitis with no active bleeding. -Xarelto remains on hold at this time. -CT surgery recommends conservative managment of hematoma. -Monitor hemoglobin and Transfuse as needed if Hgb < 7. Atrial fibrillation with persistent RVR -Xarelto remains on hold secondary to GI bleed. -Continue Amiodarone and Metoprolol. -Cardiology following and on 03/24/22 cleared patient from cardiac standpoint for discharge. Hyperkalemia, resolved after discontinuation of Aldactone and lisinopril Metabolic acidosis, resolved -Continue sodium bicarb 650 mg twice a day -Aldactone and lisinopril discontinued. -Nephrology is following. T10 to pelvis decompression with fusion Post-op pain -Management per primary admitting Orthopedic surgery team including DVT prophylaxis, pain management, wound/dressing care, weightbearing, and PT/OT . -Continue Gabapentin, Valium, Flexeril. -Decadron discontinued on 03/28/22 -PT/OT following. -Plan is for discharge to [facility] for rehab Right diaphragmatic paralysis -Aggressive pulmonary hygiene. -Pulmonology following and cleared patient from their perspective on 03/22/22 Hyperlipidemia -Continue daily medication regimen with atorvastatin. Hypertension -Monitor vital signs and continue daily medication regimen with metoprolol and amiodarone. -Lisinopril and Aldactone was discontinued secondary to hyperkalemia. Transaminitis Obstructive LFTs. -Likely ischemic hepatitis. -Resolved Thank you for allowing us to participate in the care of this pleasant patient. Do not hesitate to contact us with questions. Someone can be reached from the [facility]Note 3] hospitalist group all hours of the day at [phone] or via [employer]. Laron Werner NP rendered care for this patient independently, reviewed the findings and plan as documented in the note above. I did not physically speak with or examine the patient on this date. Objective - Vital Signs Vital signs: Vital Signs Temp 98.1 F 03/30/22 04:00 Pulse 71 03/30/22 04:00 Resp 18 03/30/22 04:00 BP 109/52 03/30/22 04:00 Pulse Ox 97 03/30/22 04:00 FiO2 35 03/10/22 10:13 Intake & Output 03/29/22 03/30/22 03/30/22 18:59 06:59 18:59 Output Total 100 954 Balance -100 -954 Output: Urine 100 950 Stool 4 Other: Voiding Method External Catheter Indwelling Catheter # Bowel Movements 2 ABP, PAP, CO, CI - Last Documented Arterial Blood Pressure 158/70 - Labs CBC & Chem 7: 03/30/22 09:50 03/30/22 09:50 Labs: Abnormal Lab Results - Last 24 Hours (Table) 03/29/22 03/29/22 03/29/22 Range/Units 08:43 11:44 11:55 WBC 17.0 H (3.8-10.6) k/uL RBC 3.64 L (3.80-5.40) m/uL RDW 18.9 H (11.5-15.5) % Neutrophils # (Manual) 14.90 H (1.3-7.7) k/uL Metamyelocytes # (Man) 0.17 H (0) k/uL Myelocytes # (Manual) 0.34 H (0) k/uL Nucleated RBCs 3 H (0-0) /100 WBC ESR 63 H (0-20) mm/hr Sodium (137-145) mmol/L BUN (7-17) mg/dL POC Glucose (mg/dL) 116 H (70-110) mg/dL Calcium (8.4-10.2) mg/dL AST (14-36) U/L C-Reactive Protein (<1.0) mg/dL Total Protein (6.3-8.2) g/dL Albumin (3.5-5.0) g/dL Procalcitonin 0.49 H (0.02-0.09) ng/mL Ur Leukocyte Esterase (Negative) Urine WBC (0-5) /hpf Urine Mucus (None) /hpf Urine Yeast (Budding) (None) /hpf 03/29/22 03/29/22 03/29/22 Range/Units 11:55 16:35 17:12 WBC (3.8-10.6) k/uL RBC (3.80-5.40) m/uL RDW (11.5-15.5) % Neutrophils # (Manual) (1.3-7.7) k/uL Metamyelocytes # (Man) (0) k/uL Myelocytes # (Manual) (0) k/uL Nucleated RBCs (0-0) /100 WBC ESR (0-20) mm/hr Sodium 131 L (137-145) mmol/L BUN 30 H (7-17) mg/dL POC Glucose (mg/dL) 112 H (70-110) mg/dL Calcium 8.0 L (8.4-10.2) mg/dL AST 39 H (14-36) U/L C-Reactive Protein 7.5 H (<1.0) mg/dL Total Protein 5.2 L (6.3-8.2) g/dL Albumin 2.6 L (3.5-5.0) g/dL Procalcitonin (0.02-0.09) ng/mL Ur Leukocyte Esterase Trace H (Negative) Urine WBC 8 H (0-5) /hpf Urine Mucus Rare H (None) /hpf Urine Yeast (Budding) Few H (None) /hpf 03/29/22 Range/Units 20:04 WBC (3.8-10.6) k/uL RBC (3.80-5.40) m/uL RDW (11.5-15.5) % Neutrophils # (Manual) (1.3-7.7) k/uL Metamyelocytes # (Man) (0) k/uL Myelocytes # (Manual) (0) k/uL Nucleated RBCs (0-0) /100 WBC ESR (0-20) mm/hr Sodium (137-145) mmol/L BUN (7-17) mg/dL POC Glucose (mg/dL) 162 H (70-110) mg/dL Calcium (8.4-10.2) mg/dL AST (14-36) U/L C-Reactive Protein (<1.0) mg/dL Total Protein (6.3-8.2) g/dL Albumin (3.5-5.0) g/dL Procalcitonin (0.02-0.09) ng/mL Ur Leukocyte Esterase (Negative) Urine WBC (0-5) /hpf Urine Mucus (None) /hpf Urine Yeast (Budding) (None) /hpf Microbiology - Last 24 Hours (Table) 03/26/22 15:00 Blood Culture - Preliminary Blood No Growth after 72 hours
[2022-03-30] MEDS: HYDROcodone/APAP 10-325MG 1 EACH TAB PO PRN (16:32)
[2022-03-30 16:50] LABS: Glucose,Whole Blood 66 mg/dL (70-110)
[2022-03-30 17:28] LABS: Glucose,Whole Blood 53 mg/dL (70-110)
[2022-03-30 17:42] LABS: Glucose,Whole Blood 54 mg/dL (70-110)
[2022-03-30 18:03] LABS: Glucose,Whole Blood 104 mg/dL (70-110)
[2022-03-30 20:26] LABS: Glucose,Whole Blood 153 mg/dL (70-110)
[2022-03-31] MEDS: SODIUM CHLORIDE 0.9% 1,000 ML IV SCH (05:33)
[2022-03-31] MEDS: ACETAMINOPHEN TAB 500 MG TAB PO SCH ×4 (06:08→23:04)
[2022-03-31] MEDS: LEVOTHYROXINE 88 MCG TAB PO SCH (06:08)
[2022-03-31 07:09] LABS: Glucose,Whole Blood 80 mg/dL (70-110)
--- NOTE | 2022-03-31 07:28 | P.PN ---
Progress Note - Text Talked to patient and OT Sunday. Reviewed PT/OT notes. Patient currently having therapy done to her, unable to participate, so not IPR candidate yet. Recommend SARAI with / care multiple persons.
[2022-03-31] MEDS: INSULIN ASPART (NovoLOG) 100 UNIT/ML VIAL SQ SCH ×4 (08:00→21:21)
[2022-03-31] MEDS: METOPROLOL SUCCINATE (ER) 25 MG TAB.ER.24H PO SCH ×3 (08:09→21:26)
[2022-03-31] MEDS: PIPERACILLIN-TAZOBACTAM 3.375 GM in SODIUM CHLORIDE 0.9% 100 ML IVPB SCH ×3 (09:09→23:45)
[2022-03-31] MEDS: FUROSEMIDE 40 MG TAB PO SCH (09:10)
[2022-03-31] MEDS: ATORVASTATIN 20 MG TAB PO SCH (09:10)
[2022-03-31] MEDS: AMIODARONE 200 MG TAB PO SCH (09:10)
[2022-03-31] MEDS: DOXYCYCLINE 100 MG CAP PO SCH (09:10)
[2022-03-31] MEDS: GABAPENTIN 400 MG CAP PO SCH ×3 (09:10→21:26)
[2022-03-31] MEDS: DULoxetine HCL 60 MG CAPSULE.DR PO SCH (09:11)
[2022-03-31] MEDS: SODIUM BICARBONATE TAB 650 MG TAB PO SCH ×2 (09:11→21:26)
[2022-03-31] MEDS: PANTOPRAZOLE 40 MG/10 ML VIAL IVP SCH (09:11)
[2022-03-31] MEDS: MAG HYDROX/AL HYDROX/SIMETH 30 ML, diphenhydrAMINE ELIXIR 75 MG, LIDOCAINE VISCOUS 2% 3... PO SCH ×9 (09:11→21:26)
--- NOTE | 2022-03-31 10:13 | P.PN ---
Subjective Progress Note Date: 03/31/22 Principal diagnosis: GI bleeding Patient had some additional stools yesterday evening and again this morning. Still complaining of back pain and rectal pain. No bleeding noted per nursing staff. Objective - Vital Signs Vital signs: Vital Signs Temp 97.7 F 03/31/22 07:02 Pulse 115 H 03/31/22 07:02 Resp 16 03/31/22 07:02 BP 92/62 03/31/22 07:02 Pulse Ox 96 03/31/22 07:02 FiO2 35 03/10/22 10:13 Intake & Output 03/30/22 03/31/22 03/31/22 18:59 06:59 18:59 Output Total 900 325 Balance -900 -325 Output: Urine 900 325 Other: Voiding Method Indwelling Catheter Indwelling Catheter Indwelling Catheter # Bowel Movements 2 1 ABP, PAP, CO, CI - Last Documented Arterial Blood Pressure 158/70 - Exam Abdomen: Soft, nontender, nondistended - Labs CBC & Chem 7: 03/30/22 09:50 03/30/22 09:50 Labs: Abnormal Lab Results - Last 24 Hours (Table) 03/30/22 03/30/22 03/30/22 Range/Units 09:50 09:50 16:48 WBC 12.7 H (3.8-10.6) k/uL RBC 3.21 L (3.80-5.40) m/uL Hgb 10.3 L (11.4-16.0) gm/dL Hct 31.0 L (34.0-46.0) % RDW 19.1 H (11.5-15.5) % Sodium 132 L (137-145) mmol/L BUN 24 H (7-17) mg/dL Creatinine 0.41 L (0.52-1.04) mg/dL POC Glucose (mg/dL) 66 L (70-110) mg/dL Calcium 7.5 L (8.4-10.2) mg/dL AST 42 H (14-36) U/L Total Protein 4.3 L (6.3-8.2) g/dL Albumin 2.2 L (3.5-5.0) g/dL 03/30/22 03/30/22 03/30/22 Range/Units 17:24 17:40 20:16 WBC (3.8-10.6) k/uL RBC (3.80-5.40) m/uL Hgb (11.4-16.0) gm/dL Hct (34.0-46.0) % RDW (11.5-15.5) % Sodium (137-145) mmol/L BUN (7-17) mg/dL Creatinine (0.52-1.04) mg/dL POC Glucose (mg/dL) 53 L 54 L 153 H (70-110) mg/dL Calcium (8.4-10.2) mg/dL AST (14-36) U/L Total Protein (6.3-8.2) g/dL Albumin (3.5-5.0) g/dL Microbiology - Last 24 Hours (Table) 03/26/22 13:12 Gram Stain - Final Back Wound Culture - Final Pseudomonas aeruginosa Enterococcus faecalis Patsy albicans 03/26/22 15:00 Blood Culture - Preliminary Blood No Growth after 96 hours Assessment and Plan (1) GI bleed Narrative/Plan: Patient continues to have issues with bowel function secondary to relative inactivity. Apparently the enema is ordered for yesterday did not lead to meaningful results as she did not tolerate the enema well. Will resume lactulose 3 times a day at this time. Current Visit: Yes Status: Acute Code(s): K92.2 - GASTROINTESTINAL HEMORRHAGE, UNSPECIFIED SNOMED Code(s): 14526529
[2022-03-31 11:08] LABS: Basophils # (M) 0 X 10*3/uL (0.00-0.10); Eosinophils # (M) 0 X 10*3/uL (0.04-0.35); HCT 27.7 % (37.2-46.3); Lymphocytes # (M) 0.84 X 10*3/uL (0.90-5.00); MCH 31.1 pg (27.0-32.0); MCHC 32.5 g/dL (32.0-37.0); MCV 95.8 fL (80.0-97.0); Mean Platelet Volume 11.3 fL (9.5-12.2); Metamyelocytes % 3 % (0-0); Monocytes # (M) 0.42 X 10*3/uL (0.20-1.00); NRBC Per 100 WBC 1.2 /100 WBCS (0.0-0.0); Neutrophils # (M) 12.33 X 10*3/uL (2.00-8.90); Neutrophils % (M) 88 %; Platelet Count 208 X 10*3/uL (140-440); RBC 2.89 X 10*6/uL (4.10-5.20); RBC Morphology NORMAL; RDW 20.9 % (11.5-14.5); WBC 14.01 X 10*3/uL (4.50-10.00)
[2022-03-31 11:16] LABS: Glucose,Whole Blood 84 mg/dL (70-110)
[2022-03-31] MEDS: LACTULOSE 20 GM/30 ML CUP PO SCH ×2 (12:44→21:26)
--- NOTE | 2022-03-31 13:11 | P.PN ---
Subjective Progress Note Date: 03/31/22 Hospital course: Patient is a 71 yo CF with a hx of A fib s/p ablation, GERD, hypertension, dyslipidemia, and right diaphragmatic paralysis who presented for T10 to Pelvis decompression and fusion with revision. Blood loss and the case was approximately 1900 mL. During her operative course she required phenylephrine IV infusion, Vasopressin IVP. She also received TXA gtt. She received 7 L of lactated Ringer's. She received 1 amp of sodium bicarb intaop. She also received albumin. Her operative course was complicated with a cardiac arrest. During the case she developed A. fib with RVR and then quickly transitioned into bradycardia with a low end-tidal CO2. She received 0.4 of atropine and CPR was started. She received epinephrine 0.5. She achieved ROSC. Total down time was less than 5 minutes. She was extubated on 02/25. She continued to do well with struggled with pain. She was downgraded from ICU on 03/03. On 03/06/22 patient was noted to have a significant drop in hemoglobin from 10.0 down to 7.5 and upon reevaluation on 03/07 was found to have hemoglobin of 5.4, patient required multiple transfusions. She has received a total of 7 units PRBCs and 1 unit of platelets. She underwent a CT abdomen and pelvis and was found to have a large right chest hematoma dilated small bowel concerning for ileus. Patient was evaluated by cardiothoracic surgery and they recommended conservative management. On 03/07, patient was noted to be hypotensive with elevated WBC count of 42.3, with worsening renal function and hyperkalamia. Patient was treated with NS bolus, IV insulin/D50, Albuterol and sodium bicarbonate. She was transferred back to the ICU for septic shock requiring Levophed. Patient was started on Vancomycin and Cefepime. Blood and urine cultures were obtained and positive for Enterobacter. Infectious disease was consulted and patient was continued on Cefepime for treatment of Enterobacter UTI with secondary bacteremia and Vancomycin was discontinued. Patient was later weaned off of vasopressors and again transferred out of the ICU. Patient was started on Lasix for treatment of acute on chronic systolic heart failure with EF of 35-40%. Patient continued on Protonix for GI prophylaxis, amiodarone and metoprolol for atrial fibrillation with RVR sodium bicarb for treatment of metabolic acidosis. Pt's Xarelto remains hold at this time. Patient was evaluated by PMR and is currently not a candidate for inpatient rehab. She has been cleared by orthopedic surgery to start working with physical therapy and current plans are for patient to be discharged to [facility] for continued rehab. On 03/26/22 patient was again found to have elevating leukocytosis and repeat Wound cultures were obtained and showing no growth to date. Patient's WBC count continued to elevate, surgical wound showing no signs of infection and patient denies having any increased pain or complaints. She denies having any shortness of breath, cough or congestion and has remained afebrile. Worsening leukocytosis possibly secondary to development of atelectasis resulting from extended hospitalization and bedridden time frame or may be reactive secondary to daily steroids with Decadron. We will obtain a chest x-ray for further evaluation and patient again educated and encouraged on use of incentive spirometer. Prelimina ry Wound cultures are positive for gram-negative bacilli, group D enterococcus, and Patsy albicans... Culture results are likely resulting from contamination of the wound from pt's brief. We will await final culture and sensitivity report. Infectious disease broadened antibiotic coverage with Zosyn. Wound to be Open to air and discussed importance of keeping wound clean and dry with RN. Again, postsurgical wound is not showing any signs of infection including erythema, drainage, increased warmth, or foul odor. Nursing staff reported overnight on 03/28/22 patient again developed episodes of melena and at that time Dr. Arce, general surgeon was re-consulted. Upon assessment morning . Patient complaining of left upper and left lower quadrant abdominal pain and new-onset. Stat orders place. CT abdomen and pelvis, unable to use contrast as patient reports ALLERGIC reaction includes rash/hives and hypotension. Due to patient's recurrent episodes of hypotension will err on the side of caution and complete imaging without contrast. CT abdomen and pelvis revealing bilateral hydronephrosis unable to rule out obstructive etiology, concerns for fecal impaction, and persistent previously known right anterior chest wall hematoma. General surgery following and to evaluate concerns of fecal impaction. Warren catheter ordered for insertion and urology consulted for evaluation of bilateral hydronephrosis. Physical examination: Patient seen and fully evaluated at bedside this morning. Yesterday evening and into night patient had episodes of hypoglycemia with blood glucose levels dropping as low as 53. Levemir discontinued at this time. Episodes of hypoglycemia likely secondary to discontinuation of steroids resulting in r esolution of steroid-induced hyperglycemia and no longer needing insulin coverage. Hemoglobin stable at 9.0. Patient and RN tonight any further episodes concerning for melena or any GI bleeding. Patient receiving lactulose in attempts to treat fecal impaction as enema was unsuccessful. Patient will be medically clear for discharge once bowel function is stable and fecal impaction has resolved. General: ill appearing, no acute distress, appears at stated age, Derm: warm, dry. Postsurgical dressing clean, dry, and intact this morning. Head: atraumatic, normocephalic, symmetric Eyes: EOMI, no lid lag, anicteric sclera Mouth: no lip lesion, dry membranes moist Cardiovascular: S1S2 irregular, no murmur Lungs: Respirations even, regular, and unlabored on room air. Lungs clear to auscultation bilaterally Ext: no gross muscle atrophy, no edema, no contractures Abd: Warren catheter in place. Obese. Non tender to palpation. Neuro: Moving all 4 extremities independently, sensation and movement equal and intact in bilateral lower extremities. Patient continues with equal Bilateral lower extremity weakness, likely secondary to bedridden state for the past 35 days. Psych: Alert, oriented, appropriate affect Assessment and plan of care: Septic shock resulting from Enterobacter cloacae UTI with secondary bacteremia Status post Cardiac arrest with ROSC Enterobacter cloacae UTI with secondary bacteremia Lactic acidosis Leukocytosis -Patient was successfully weaned off mechanical ventilation and pressors and transferred out of ICU. -Completed a course of cefepime and started back on antibiotics for worsening leukocytosis, currently on Zosyn. -Blood cultures + Enterobacter cloacae. Repeat cultures negative on 03/07/22 and 03/26/22. -Urine culture + Enterobacter cloacae -Wound cultures 03/26/22 are positive for pseudomonas aeruginosa, enterococcus fasciculus, and Patsy albicans. Continue with Zosyn and per positivity report. -Pulmonology/buffer nickel following and cleared patient from their perspective on 03/22/22 -Infectious disease following Left upper and lower quadrant abdominal pain Fecal impaction -CT abdomen and pelvis concerning for possible fecal impaction. -Gen. surgery was consulted for reevaluation and starting patient on lactulose. Bilateral hydronephrosis, likely secondary to urinary retention -CT abdomen and pelvis revealing bilateral hydronephrosis unable to rule out obstructive etiology. -Renal function stable with the exception of mildly elevated BUN at 24 and creatinine of 0.41.. Documented urine output over the past 24 hours 1225 mL. -Urology following, recommending continuation of Warren catheter Acute on Chronic Systolic CHF -Echo shows EF 35-40% with severe pulmonary HTN, moderate MR. -Cardiology following -Continue amiodarone, metoprolol, and furosemide -Patient initially started on Aldactone but was discontinued secondary to hyperkalemia -Continue close monitoring of I's and O's Prerenal azotemia, improving Hyponatremia, improving -Na 132, BUN 24. -Nephrology following. Prediabetes with hyperglycemia, now hypoglycemia -Likely steroid induced -A1c is 6 -Levimir discontinued due to episodes of hypoglycemia after discontinuation of steroids -Continue with sliding scale Acute blood loss anemia, hemoglobin stable. Right breast hematoma GI bleed, ischemic bowel ruled out. -Status post a total of 7 units PRBCs and 1 unit of platelets. -Gen. surgery following anticipation for EGD which revealed gastritis and mild esophagitis with no active bleeding. -Xarelto remains on hold at this time. -CT surgery recommends conservative managment of hematoma. -Monitor hemoglobin and Transfuse as needed if Hgb < 7. Atrial fibrillation with persistent RVR -Xarelto remains on hold secondary to GI bleed. -Continue Amiodarone and Metoprolol. -Cardiology following and on 03/24/22 cleared patient from cardiac standpoint for discharge. Hyperkalemia, resolved after discontinuation of Aldactone and lisinopril Metabolic acidosis, resolved -Continue sodium bicarb 650 mg twice a day -Aldactone and lisinopril discontinued. -Nephrology is following. T10 to pelvis decompression with fusion Post-op pain -Management per primary admitting Orthopedic surgery team including DVT prophylaxis, pain management, wound/dressing care, weightbearing, and PT/OT . -Continue Gabapentin, Valium, Flexeril. -Decadron discontinued on 03/28/22 -PT/OT following. -Plan is for discharge to [facility] Right diaphragmatic paralysis -Pulmonology following and cleared patient from their perspective on 03/22/22 Hyperlipidemia -Continue daily medication regimen with atorvastatin. Hypertension -Monitor vital signs and continue daily medication regimen with metoprolol and amiodarone. -Lisinopril and Aldactone was discontinued secondary to hyperkalemia. Transaminitis Obstructive LFTs. -Likely ischemic hepatitis. -Resolved Thank you for allowing us to participate in the care of this pleasant patient. Do not hesitate to contact us with questions. Someone can be reached from the [facility] hospitalist group all hours of the day at [phone] or via [employer]. Laron Werner NP rendered care for this patient independently, reviewed the findings and plan as documented in the note above. I did not physically speak with or examine the patient on this date. Objective - Vital Signs Vital signs: Vital Signs Temp 97.7 F 03/31/22 07:02 Pulse 115 H 03/31/22 07:02 Resp 16 03/31/22 07:02 BP 92/62 03/31/22 07:02 Pulse Ox 96 03/31/22 07:02 FiO2 35 03/10/22 10:13 Intake & Output 03/30/22 03/31/22 03/31/22 18:59 06:59 18:59 Output Total 900 325 Balance -900 -325 Output: Urine 900 325 Other: Voiding Method Indwelling Catheter Indwelling Catheter # Bowel Movements 2 1 ABP, PAP, CO, CI - Last Documented Arterial Blood Pressure 158/70 - Labs CBC & Chem 7: 03/31/22 06:03 03/30/22 09:50 Labs: Abnormal Lab Results - Last 24 Hours (Table) 03/30/22 03/30/22 03/30/22 Range/Units 09:50 09:50 16:48 WBC 12.7 H (3.8-10.6) k/uL RBC 3.21 L (3.80-5.40) m/uL Hgb 10.3 L (11.4-16.0) gm/dL Hct 31.0 L (34.0-46.0) % RDW 19.1 H (11.5-15.5) % Sodium 132 L (137-145) mmol/L BUN 24 H (7-17) mg/dL Creatinine 0.41 L (0.52-1.04) mg/dL POC Glucose (mg/dL) 66 L (70-110) mg/dL Calcium 7.5 L (8.4-10.2) mg/dL AST 42 H (14-36) U/L Total Protein 4.3 L (6.3-8.2) g/dL Albumin 2.2 L (3.5-5.0) g/dL 03/30/22 03/30/22 03/30/22 Range/Units 17:24 17:40 20:16 WBC (3.8-10.6) k/uL RBC (3.80-5.40) m/uL Hgb (11.4-16.0) gm/dL Hct (34.0-46.0) % RDW (11.5-15.5) % Sodium (137-145) mmol/L BUN (7-17) mg/dL Creatinine (0.52-1.04) mg/dL POC Glucose (mg/dL) 53 L 54 L 153 H (70-110) mg/dL Calcium (8.4-10.2) mg/dL AST (14-36) U/L Total Protein (6.3-8.2) g/dL Albumin (3.5-5.0) g/dL Microbiology - Last 24 Hours (Table) 03/26/22 15:00 Blood Culture - Preliminary Blood No Growth after 96 hours
[2022-03-31] MEDS: CAFFEINE SODIUM BENZOATE IVPB SCH (14:50)
[2022-03-31] MEDS: SODIUM CHLORIDE 0.9% IVPB SCH (14:50)
--- NOTE | 2022-03-31 14:52 | P.PN ---
Subjective Patient is seen in follow-up for hyponatremia. Sodium level 132 yesterday. Resting in bed. Oral intake is fair. No vomiting or diarrhea. Nonoliguric. Blood pressure on the lower side. Vital signs are stable. General: Awake. No acute distress. HEENT: Head exam is unremarkable. LUNGS: Breath sounds decreased. HEART: Rate and Rhythm are regular. ABDOMEN: Soft, obese. EXTREMITITES: 1+ edema. Objective - Vital Signs Vital signs: Vital Signs Temp 97.8 F 03/31/22 12:59 Pulse 112 H 03/31/22 12:59 Resp 15 03/31/22 12:59 BP 88/55 03/31/22 12:59 Pulse Ox 98 03/31/22 12:59 FiO2 35 03/10/22 10:13 Intake & Output 03/30/22 03/31/22 03/31/22 18:59 06:59 18:59 Intake Total 240 Output Total 900 325 900 Balance -900 -325 -660 Weight 127.2 kg Intake: IV 140 Sodium Chloride 0.9% 1, 140 000 ml @ 10 mls/hr IV . Q24H MEHUL Rx#:[id number] Intake, IV Titration 100 Amount Piperacillin-Tazobactam 3 100 .375 gm In Sodium Chloride 0.9% 100 ml @ 25 mls/hr IVPB Q8HR MEHUL Rx# :[id number] Output: Urine 900 325 900 Other: Voiding Method Indwelling Catheter Indwelling Catheter Indwelling Catheter # Bowel Movements 2 1 ABP, PAP, CO, CI - Last Documented Arterial Blood Pressure 158/70 - Labs CBC & Chem 7: 03/31/22 06:03 03/30/22 09:50 Labs: Abnormal Lab Results - Last 24 Hours (Table) 03/30/22 03/30/22 03/30/22 Range/Units 16:48 17:24 17:40 WBC (4.50-10.00) X 10*3/uL RBC (4.10-5.20) X 10*6/uL Hgb (12.0-15.0) g/dL Hct (37.2-46.3) % RDW (11.5-14.5) % Absolute Nucleated RBC (0.00-0.00) X 10*3/uL Metamyelocytes % (0-0) % Neutrophils # (Manual) (2.00-8.90) X 10*3/uL Lymphocytes # (Manual) (0.90-5.00) X 10*3/uL Eosinophils # (Manual) (0.04-0.35) X 10*3/uL NRBC/100 WBC Diff (0.0-0.0) /100 WBCS POC Glucose (mg/dL) 66 L 53 L 54 L (70-110) mg/dL 03/30/22 03/31/22 Range/Units 20:16 06:03 WBC 14.01 H (4.50-10.00) X 10*3/uL RBC 2.89 L (4.10-5.20) X 10*6/uL Hgb 9.0 L (12.0-15.0) g/dL Hct 27.7 L (37.2-46.3) % RDW 20.9 H (11.5-14.5) % Absolute Nucleated RBC 0.17 H (0.00-0.00) X 10*3/uL Metamyelocytes % 3 H (0-0) % Neutrophils # (Manual) 12.33 H (2.00-8.90) X 10*3/uL Lymphocytes # (Manual) 0.84 L (0.90-5.00) X 10*3/uL Eosinophils # (Manual) 0 L (0.04-0.35) X 10*3/uL NRBC/100 WBC Diff 1.2 H (0.0-0.0) /100 WBCS POC Glucose (mg/dL) 153 H (70-110) mg/dL Microbiology - Last 24 Hours (Table) 03/26/22 17:50 Anaerobic Culture - Final Back Anaerobic Gm Negative Bacilli 03/26/22 13:12 Gram Stain - Final Back Wound Culture - Final Pseudomonas aeruginosa Enterococcus faecalis Patsy albicans 03/26/22 15:00 Blood Culture - Preliminary Blood No Growth after 96 hours Assessment and Plan Plan: Assessment: 1. Hyponatremia. Hypervolemic. Urine sodium was 30 and urine osmolality 515 on 03/08/2022. TSH normal dated 03/09/2022. Cortisol level not low. Status post [facility] this admission. Sodium level 132 yesterday. 2. Enterobacter bacteremia and UTI. ID following. Also on Questran for diar zane. On antibiotics. 3. Metabolic acidosis secondary to GI losses. On oral bicarb. Improved. 4. Diabetes mellitus. 5. Lower extremity edema on Lasix. 6. Bilateral hydronephrosis. Urology following. Has Warren catheter. 7. Acute on chronic systolic CHF with ejection fraction of 35-40% with severe pulmonary hypertension and moderate mitral regurgitation. Plan: Maintain oral Lasix. 1200 mL fluid restriction. Encourage oral intake. Continue to monitor renal function and urine output. Add midodrine 5 mg 3 times a day. Hold for systolic blood pressure greater than 115.
--- NOTE | 2022-03-31 15:35 | P.PN ---
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 She is currently resting in bed. Surgical incision was cleaned with betadine swabs and dressing applied. Generalized weakness, continue with encouragement for patient to be up in chair for all meals via zulema lift. Patient was assisted by her family yesterday for a shower. She tolerated well, but was exhausted afterward. Would like to get patient to rehab, awaiting medical clearance. She denies any fever/chills or chest pain. Objective - Vital Signs Vital signs: Vital Signs Temp 98.4 F 03/31/22 01:27 Pulse 111 H 03/31/22 01:27 Resp 16 03/31/22 01:27 BP 92/42 03/31/22 01:27 Pulse Ox 96 03/31/22 01:27 FiO2 35 03/10/22 10:13 Intake & Output 03/30/22 03/31/22 03/31/22 18:59 06:59 18:59 Output Total 900 325 Balance -900 -325 Output: Urine 900 325 Other: Voiding Method Indwelling Catheter Indwelling Catheter # Bowel Movements 2 1 ABP, PAP, CO, CI - Last Documented Arterial Blood Pressure 158/70 - Exam PHYSICAL EXAMINATION: General: Awake, alert, appropriate for age, in no acute distress. HEENT: No changes Extremities: Skin warm and dry without no acute lesions, coloration, temperature, skin intact, no tenderness or erythema. Integument: Surgical incisions: Incision cleaned with Betadine this morning, Upper portion of incision is well healed. Lower portion remains sutured with maceration noted. External cath present Palpation: Special findings: mild discomfort with palpation of the right breast area with healing hematoma noted as well as anterior chest wall. VASCULAR STATUS : Wrist Pulses: [2/4 bilateral radial and ulnar] Pedal Pulses: [2/4 bilateral DP and PT] Color: [Normal] Edema: Improved in arms and hands. NEUROLOGIC EXAMINATION: Mental Status: Awake and alert, oriented,but slow with normal attention, concentration and memory, and fluent, he has slow speech Cranial Nerves: I: Olfactory not tested. II: Visual acuity normal, no visual field deficit noted with confrontation. III,IV: Normal pupillary reflexes & intact extraocular movements without nystagmus. V,: Intact symmetrical facial sensation. VII: Intact symmetrical facial motor movement VIII: Hearing intact. IX,X: Intact gag, swallow, & normal voice. XI: Sternocleidomastoid, trapezius function intact. XII: Tongue midline with normal movements. Special Tests: L'hermitte's Sign: Absent Straight Leg Raising: Absent Bilateral Motor Exam (0-5/5, N/T) STRENGTH 4- out of 5 strength in upper extremity's bilaterally all major muscle groups without focal deficits generalized weakness 3 to 5 strength bilateral lower extremities all major muscle groups with generalized weakness no focal deficits. She is weak in her hip flexors currently, bilateral quad muscles are engaging. REFLEXES Upper Extremity: RIGHT [2]/4 LEFT [2]/4 Lower Extremity: RIGHT [2]/4 LEFT [2]/4 Pathological Reflexes Warren's: RIGHT [Absent] LEFT [Absent] Babinski: RIGHT [Absent] LEFT [Absent] Clonus: RIGHT [None] LEFT [None] SENSORY Intact Gait and Functional Evaluation: Sit patient at bedside and increase physical activity as tolerated - Labs CBC & Chem 7: 03/31/22 06:03 03/30/22 09:50 Labs: Abnormal Lab Results - Last 24 Hours (Table) 03/30/22 03/30/22 03/30/22 Range/Units 09:50 09:50 16:48 WBC 12.7 H (3.8-10.6) k/uL RBC 3.21 L (3.80-5.40) m/uL Hgb 10.3 L (11.4-16.0) gm/dL Hct 31.0 L (34.0-46.0) % RDW 19.1 H (11.5-15.5) % Sodium 132 L (137-145) mmol/L BUN 24 H (7-17) mg/dL Creatinine 0.41 L (0.52-1.04) mg/dL POC Glucose (mg/dL) 66 L (70-110) mg/dL Calcium 7.5 L (8.4-10.2) mg/dL AST 42 H (14-36) U/L Total Protein 4.3 L (6.3-8.2) g/dL Albumin 2.2 L (3.5-5.0) g/dL 03/30/22 03/30/22 03/30/22 Range/Units 17:24 17:40 20:16 WBC (3.8-10.6) k/uL RBC (3.80-5.40) m/uL Hgb (11.4-16.0) gm/dL Hct (34.0-46.0) % RDW (11.5-15.5) % Sodium (137-145) mmol/L BUN (7-17) mg/dL Creatinine (0.52-1.04) mg/dL POC Glucose (mg/dL) 53 L 54 L 153 H (70-110) mg/dL Calcium (8.4-10.2) mg/dL AST (14-36) U/L Total Protein (6.3-8.2) g/dL Albumin (3.5-5.0) g/dL Microbiology - Last 24 Hours (Table) 03/26/22 15:00 Blood Culture - Preliminary Blood No Growth after 96 hours Assessment and Plan Assessment: 1. 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 Status post 7 units PRBC and 1 pack platelets -bilateral lower extremity weakness, status post multiple controlled falls in- house -Enterobacter sepsis, UTI -status post cardiac arrest Plan: -Appreciate sharepoint consultant and team management PCC and medicine -Appreciate cardiothoracic, Gen. surgery, nephrology, ID evaluations -Continue Activity: Patient to be up in chair for all meals. Encourage to increase physical activity as tolerated. -Cont Abx for duration of stay -Caffiene daily 200 mg daily, Fioricet -Pain control: Adequate today ( Tylenol 1000 mg MEHUL, Oxy IR q6 hrs 10-15 mg titrated to pain (pt been on [facility] for 20 yrs), Cont Gabapentin,) -Meds: reviewed -Trend labs -Transfusions to vitals -GI ppx: senna, Miralax -Cont with FBS -DVT PPX: Mechanical -Hygiene: Maintain incision clean and dry. Meticulous cleaning after BMs away from incision site The wound needs to be kept meticulously clean, and dry. -Encourage IS 10x/hr -Will follow
--- NOTE | 2022-03-31 16:01 | P.PN ---
Subjective Progress Note Date: 03/31/22 Principal diagnosis: UTI and bacteremia Patient is a 71-year-old female with a past medical history difficult for atrial fibrillation flutter hypertension hyperlipidemia hypothyroidism right breast cancer electively admitted to the hospital more than 2 weeks ago 022 for T10 to lumbar spine revision decompression and posterior lateral interbody fusion, patient did have a episode of hypotension and elevated white count requiring admission to the ICU patient did have a positive UA and gram- negative bacteremia and is scheduled for exploration of the thoracolumbar incision completed on 03/09/2022 with apparently no evidence of any abscess On today's evaluation that is 03/31/2022 the patient continues to be afebrile , the patient is breathing comfortably on room air, the patient denies any chest pain or shortness of breath or cough no abdominal pain or any worsening pain to lower back incision area Objective - Vital Signs Vital signs: Vital Signs Temp 97.7 F 03/31/22 07:02 Pulse 115 H 03/31/22 07:02 Resp 16 03/31/22 07:02 BP 92/62 03/31/22 07:02 Pulse Ox 96 03/31/22 07:02 FiO2 35 03/10/22 10:13 Intake & Output 03/30/22 03/31/22 03/31/22 18:59 06:59 18:59 Output Total 900 325 900 Balance -900 -325 -900 Output: Urine 900 325 900 Other: Voiding Method Indwelling Catheter Indwelling Catheter Indwelling Catheter # Bowel Movements 2 1 ABP, PAP, CO, CI - Last Documented Arterial Blood Pressure 158/70 - Exam GENERAL DESCRIPTION: An elderly female lying in bed in no distress RESPIRATORY SYSTEM: Unlabored breathing , decreased breath sounds at bases HEART: S1 S2 regular rate and rhythm , ABDOMEN: Soft , no tenderness Thoracolumbar spine upper incision stitches are out incision is healed minimal maceration of the lower end no purulent drainage was noticed EXTREMITIES: Diffuse swelling bilateral lower extremity - Labs CBC & Chem 7: 03/31/22 06:03 03/30/22 09:50 Labs: Abnormal Lab Results - Last 24 Hours (Table) 03/30/22 03/30/22 03/30/22 Range/Units 16:48 17:24 17:40 WBC (4.50-10.00) X 10*3/uL RBC (4.10-5.20) X 10*6/uL Hgb (12.0-15.0) g/dL Hct (37.2-46.3) % RDW (11.5-14.5) % Absolute Nucleated RBC (0.00-0.00) X 10*3/uL Metamyelocytes % (0-0) % Neutrophils # (Manual) (2.00-8.90) X 10*3/uL Lymphocytes # (Manual) (0.90-5.00) X 10*3/uL Eosinophils # (Manual) (0.04-0.35) X 10*3/uL NRBC/100 WBC Diff (0.0-0.0) /100 WBCS POC Glucose (mg/dL) 66 L 53 L 54 L (70-110) mg/dL 03/30/22 03/31/22 Range/Units 20:16 06:03 WBC 14.01 H (4.50-10.00) X 10*3/uL RBC 2.89 L (4.10-5.20) X 10*6/uL Hgb 9.0 L (12.0-15.0) g/dL Hct 27.7 L (37.2-46.3) % RDW 20.9 H (11.5-14.5) % Absolute Nucleated RBC 0.17 H (0.00-0.00) X 10*3/uL Metamyelocytes % 3 H (0-0) % Neutrophils # (Manual) 12.33 H (2.00-8.90) X 10*3/uL Lymphocytes # (Manual) 0.84 L (0.90-5.00) X 10*3/uL Eosinophils # (Manual) 0 L (0.04-0.35) X 10*3/uL NRBC/100 WBC Diff 1.2 H (0.0-0.0) /100 WBCS POC Glucose (mg/dL) 153 H (70-110) mg/dL Microbiology - Last 24 Hours (Table) 03/26/22 13:12 Gram Stain - Final Back Wound Culture - Final Pseudomonas aeruginosa Enterococcus faecalis Patsy albicans 03/26/22 15:00 Blood Culture - Preliminary Blood No Growth after 96 hours Assessment and Plan (1) Gram-negative bacteremia Current Visit: Yes Status: Acute Code(s): R78.81 - BACTEREMIA SNOMED Code(s): 166440290878 Plan: 1patient with SIRS/sepsis in this patient who has been in the hospital for 2 weeks with elective admission to the hospital for thoracolumbar spine revision did have a cardiac arrest requiring resuscitation , patient did have evidence of Enterobacter UTI with secondary bacteremia for which the patient has completed her antibiotic therapy 2patient with diarrhea seemed to have responded to Questran to continue 3elevated white count and concern for possible maceration of the lower end of the incision cultures obtained per hospitalist which are currently growing enterococcus and Pseudomonas along with anaerobe and Patsy possible colonization however the patient is high risk of infection CT was discussed with the spine surgery. Patient to continue with empiric Zosyn and continue supportive care Time with Patient: Less than 30
[2022-03-31] MEDS: MIDODRINE 5 MG TAB PO SCH (17:16)
[2022-03-31 17:37] LABS: Glucose,Whole Blood 77 mg/dL (70-110)
[2022-03-31 21:06] LABS: Glucose,Whole Blood 95 mg/dL (70-110)
[2022-03-31] MEDS: ONDANSETRON 4 MG/2 ML VIAL IVP PRN (21:29)
[2022-03-31] MEDS: HYDROcodone/APAP 10-325MG 1 EACH TAB PO PRN (21:29)
[2022-04-01] MEDS: SODIUM CHLORIDE 0.9% 1,000 ML IV SCH (05:02)
[2022-04-01] MEDS: ACETAMINOPHEN TAB 500 MG TAB PO SCH ×3 (05:43→16:25)
[2022-04-01] MEDS: LEVOTHYROXINE 88 MCG TAB PO SCH (05:43)
[2022-04-01 07:36] LABS: African American GFR (CKD) >90 (>60 ml/min/1.73 sqM); Anion Gap 2 mmol/L; Blood Urea Nitrogen 21 mg/dL (7-17); Carbon Dioxide 25 mmol/L (22-30); Chloride 103 mmol/L (98-107); Glucose 78 mg/dL (74-99); Non-African American GFR(CKD) >90 (>60 ml/min/1.73 sqM); Sodium 130 mmol/L (137-145)
[2022-04-01 07:53] LABS: Glucose,Whole Blood 90 mg/dL (70-110)
[2022-04-01] MEDS: INSULIN ASPART (NovoLOG) 100 UNIT/ML VIAL SQ SCH ×4 (07:54→21:26)
[2022-04-01 07:56] LABS: Magnesium 1.7 mg/dL (1.6-2.3); Potassium 4.8 mmol/L (3.5-5.1)
[2022-04-01] MEDS: MIDODRINE 5 MG TAB PO SCH ×3 (08:27→16:24)
[2022-04-01] MEDS: SODIUM CHLORIDE 0.9% IVPB SCH (08:27)
[2022-04-01] MEDS: CAFFEINE SODIUM BENZOATE IVPB SCH (08:27)
[2022-04-01] MEDS: DULoxetine HCL 60 MG CAPSULE.DR PO SCH (08:28)
[2022-04-01] MEDS: AMIODARONE 200 MG TAB PO SCH (08:28)
[2022-04-01] MEDS: ATORVASTATIN 20 MG TAB PO SCH (08:28)
[2022-04-01] MEDS: PIPERACILLIN-TAZOBACTAM 3.375 GM in SODIUM CHLORIDE 0.9% 100 ML IVPB SCH ×2 (08:28→16:24)
[2022-04-01] MEDS: FUROSEMIDE 40 MG TAB PO SCH (08:29)
[2022-04-01] MEDS: SODIUM BICARBONATE TAB 650 MG TAB PO SCH ×2 (08:29→21:38)
[2022-04-01] MEDS: GABAPENTIN 400 MG CAP PO SCH ×3 (08:29→21:38)
[2022-04-01] MEDS: METOPROLOL SUCCINATE (ER) 25 MG TAB.ER.24H PO SCH ×3 (08:29→21:38)
[2022-04-01] MEDS: LACTULOSE 20 GM/30 ML CUP PO SCH ×2 (08:29→21:38)
[2022-04-01] MEDS: PANTOPRAZOLE 40 MG/10 ML VIAL IVP SCH (08:29)
[2022-04-01] MEDS: MAG HYDROX/AL HYDROX/SIMETH 30 ML, diphenhydrAMINE ELIXIR 75 MG, LIDOCAINE VISCOUS 2% 3... PO SCH ×9 (08:36→21:38)
[2022-04-01] MEDS: HYDROcodone/APAP 10-325MG 1 EACH TAB PO PRN (08:42)
--- NOTE | 2022-04-01 11:00 | P.PN ---
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 She is currently resting in bed. Patient states that she worked with physical therapy yesterday and set at edge of bed for approximately 1 hour. She states her pain is managed on current regimen. Surgical incision has been cleaned with Betadine, new dressing applied. Would like to get patient to rehab, hopefully early next week. She denies any fever/chills or chest pain. Objective - Vital Signs Vital signs: Vital Signs Temp 97.5 F L 04/01/22 02:00 Pulse 115 H 04/01/22 02:00 Resp 16 04/01/22 02:00 BP 110/72 04/01/22 02:00 Pulse Ox 97 04/01/22 02:00 FiO2 35 03/10/22 10:13 Intake & Output 03/31/22 04/01/22 04/01/22 18:59 06:59 18:59 Intake Total 240 30 Output Total 1500 275 Balance -1260 -245 Weight 127.2 kg Intake: IV 140 30 Sodium Chloride 0.9% 1, 140 30 000 ml @ 10 mls/hr IV . Q24H MEHUL Rx#:[id number] Intake, IV Titration 100 Amount Piperacillin-Tazobactam 3 100 .375 gm In Sodium Chloride 0.9% 100 ml @ 25 mls/hr IVPB Q8HR MEHUL Rx# :[id number] Output: Urine 1500 275 Other: Voiding Method Indwelling Catheter Indwelling Catheter # Bowel Movements 1 ABP, PAP, CO, CI - Last Documented Arterial Blood Pressure 158/70 - Exam PHYSICAL EXAMINATION: General: Awake, alert, appropriate for age, in no acute distress. HEENT: No changes Extremities: Skin warm and dry without no acute lesions, coloration, temperature, skin intact, no tenderness or erythema. Integument: Surgical incisions: Incision cleaned with Betadine this morning, Upper portion of incision and lower portion is well healed, sutures have been removed. Mid- portion remains sutured with maceration noted. Warren cath present Palpation: Special findings: mild discomfort with palpation of the right breast area with healing hematoma noted as well as anterior chest wall. VASCULAR STATUS : Wrist Pulses: [2/4 bilateral radial and ulnar] Pedal Pulses: [2/4 bilateral DP and PT] Color: [Normal] Edema: Improved in arms and hands. NEUROLOGIC EXAMINATION: Mental Status: Awake and alert, oriented,but slow with normal attention, concentration and memory, and fluent, he has slow speech Cranial Nerves: I: Olfactory not tested. II: Visual acuity normal, no visual field deficit noted with confrontation. III,IV: Normal pupillary reflexes & intact extraocular movements without nystagmus. V,: Intact symmetrical facial sensation. VII: Intact symmetrical facial motor movement VIII: Hearing intact. IX,X: Intact gag, swallow, & normal voice. XI: Sternocleidomastoid, trapezius function intact. XII: Tongue midline with normal movements. Special Tests: L'hermitte's Sign: Absent Straight Leg Raising: Absent Bilateral Motor Exam (0-5/5, N/T) STRENGTH 4- out of 5 strength in upper extremity's bilaterally all major muscle groups without focal deficits generalized weakness 3 to 5 strength bilateral lower extremities all major muscle groups with generalized weakness no focal deficits. She is weak in her hip flexors currently, bilateral quad muscles are engaging. REFLEXES Upper Extremity: RIGHT [2]/4 LEFT [2]/4 Lower Extremity: RIGHT [2]/4 LEFT [2]/4 Pathological Reflexes Warren's: RIGHT [Absent] LEFT [Absent] Babinski: RIGHT [Absent] LEFT [Absent] Clonus: RIGHT [None] LEFT [None] SENSORY Intact Gait and Functional Evaluation: Sit patient at bedside and increase physical activity as tolerated - Labs CBC & Chem 7: 03/31/22 06:03 04/01/22 07:10 Labs: Abnormal Lab Results - Last 24 Hours (Table) 03/31/22 Range/Units 06:03 WBC 14.01 H (4.50-10.00) X 10*3/uL RBC 2.89 L (4.10-5.20) X 10*6/uL Hgb 9.0 L (12.0-15.0) g/dL Hct 27.7 L (37.2-46.3) % RDW 20.9 H (11.5-14.5) % Absolute Nucleated RBC 0.17 H (0.00-0.00) X 10*3/uL Metamyelocytes % 3 H (0-0) % Neutrophils # (Manual) 12.33 H (2.00-8.90) X 10*3/uL Lymphocytes # (Manual) 0.84 L (0.90-5.00) X 10*3/uL Eosinophils # (Manual) 0 L (0.04-0.35) X 10*3/uL NRBC/100 WBC Diff 1.2 H (0.0-0.0) /100 WBCS Microbiology - Last 24 Hours (Table) 03/26/22 15:00 Blood Culture - Preliminary Blood No Growth after 120 hours 03/26/22 17:50 Anaerobic Culture - Final Back Anaerobic Gm Negative Bacilli 03/26/22 13:12 Gram Stain - Final Back Wound Culture - Final Pseudomonas aeruginosa Enterococcus faecalis Patsy albicans Assessment and Plan Assessment: 1. 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 Status post 7 units PRBC and 1 pack platelets -bilateral lower extremity weakness, status post multiple controlled falls in- house -Enterobacter sepsis, UTI -status post cardiac arrest Plan: -Appreciate senior consumer insights consultant and team management PCC and medicine -Appreciate cardiothoracic, Gen. surgery, nephrology, ID evaluations -Continue Activity: Patient to be up in chair for all meals. Encourage to increase physical activity as tolerated. -Cont Abx for duration of stay -Caffiene daily 200 mg daily, Fioricet -Pain control: Adequate today ( Tylenol 1000 mg MEHUL, Oxy IR q6 hrs 10-15 mg titrated to pain (pt been on [place] for 20 yrs), Cont Gabapentin,) -Meds: reviewed -Trend labs -Transfusions to vitals -GI ppx: senna, Miralax -Cont with FBS -DVT PPX: Mechanical -Hygiene: Maintain incision clean and dry. Meticulous cleaning after BMs away from incision site The wound needs to be kept meticulously clean, and dry. -Encourage IS 10x/hr -Will follow
[2022-04-01 11:26] LABS: Glucose,Whole Blood 102 mg/dL (70-110)
--- NOTE | 2022-04-01 12:42 | P.PN ---
Subjective Patient is seen in follow-up for hyponatremia. Sodium level 130 today. Resting in bed. Oral intake is fair. No vomiting or diarrhea. Nonoliguric. Feels weak. Vital signs are stable. General: Awake. No acute distress. HEENT: Head exam is unremarkable. LUNGS: Breath sounds decreased. HEART: Rate and Rhythm are regular. ABDOMEN: Soft, obese. EXTREMITITES: 1+ edema. Objective - Vital Signs Vital signs: Vital Signs Temp 97.7 F 04/01/22 07:20 Pulse 117 H 04/01/22 08:00 Resp 16 04/01/22 08:00 BP 103/70 04/01/22 07:20 Pulse Ox 97 04/01/22 07:20 FiO2 35 03/10/22 10:13 Intake & Output 03/31/22 04/01/22 04/01/22 18:59 06:59 18:59 Intake Total 240 30 Output Total 1500 275 7 Balance -1260 -245 -7 Weight 127.2 kg Intake: IV 140 30 Sodium Chloride 0.9% 1, 140 30 000 ml @ 10 mls/hr IV . Q24H MEHUL Rx#:[id number] Intake, IV Titration 100 Amount Piperacillin-Tazobactam 3 100 .375 gm In Sodium Chloride 0.9% 100 ml @ 25 mls/hr IVPB Q8HR MEHUL Rx# :[id number] Output: Urine 1500 275 5 Stool 2 Other: Voiding Method Indwelling Catheter Indwelling Catheter Indwelling Catheter # Voids 0 # Bowel Movements 1 1 ABP, PAP, CO, CI - Last Documented Arterial Blood Pressure 158/70 - Labs CBC & Chem 7: 03/31/22 06:03 04/01/22 07:10 Labs: Abnormal Lab Results - Last 24 Hours (Table) 04/01/22 Range/Units 07:10 Sodium 130 L (137-145) mmol/L BUN 21 H (7-17) mg/dL Creatinine 0.38 L (0.52-1.04) mg/dL Calcium 7.0 L (8.4-10.2) mg/dL Microbiology - Last 24 Hours (Table) 03/26/22 15:00 Blood Culture - Preliminary Blood No Growth after 120 hours 03/26/22 17:50 Anaerobic Culture - Final Back Anaerobic Gm Negative Bacilli 03/26/22 13:12 Gram Stain - Final Back Wound Culture - Final Pseudomonas aeruginosa Enterococcus faecalis Patsy albicans Assessment and Plan Plan: Assessment: 1. Hyponatremia. Hypervolemic. Urine sodium was 30 and urine osmolality 515 on 03/08/2022. TSH normal dated 03/09/2022. Cortisol level not low. Status post Samsca this admission. Sodium level 130 today. 2. Enterobacter bacteremia and UTI. ID following. On antibiotics. 3. Metabolic acidosis secondary to GI losses. On oral bicarb. Improved. 4. Diabetes mellitus. 5. Lower extremity edema on Lasix. 6. Bilateral hydronephrosis. Urology following. Has Warren catheter. 7. Acute on chronic systolic CHF with ejection fraction of 35-40% with severe pulmonary hypertension and moderate mitral regurgitation. Plan: Maintain oral Lasix. 1200 mL fluid restriction. Encourage oral intake. Continue to monitor renal function and urine output. Maintain midodrine. Hold for systolic blood pressure greater than 115. Repeat labs in the morning. Will repeat Samsca if sodium lower.
[2022-04-01] MEDS: MAGNESIUM OXIDE 400 MG TAB PO SCH (13:27)
--- NOTE | 2022-04-01 13:46 | P.PN ---
Subjective Progress Note Date: 04/01/22 Principal diagnosis: UTI and bacteremia Patient is a 71-year-old female with a past medical history difficult for atrial fibrillation flutter hypertension hyperlipidemia hypothyroidism right breast cancer electively admitted to the hospital more than 2 weeks ago 022 for T10 to lumbar spine revision decompression and posterior lateral interbody fusion, patient did have a episode of hypotension and elevated white count requiring admission to the ICU patient did have a positive UA and gram- negative bacteremia and is scheduled for exploration of the thoracolumbar incision completed on 03/09/2022 with apparently no evidence of any abscess On today's evaluation that is 04/01/2022 the patient remains to be afebrile , the patient is breathing comfortably on room air, the patient denies any chest pain or shortness of breath or cough, denies any nausea or vomiting or any worsening pain to the lower back area Objective - Vital Signs Vital signs: Vital Signs Temp 97.8 F 04/01/22 12:14 Pulse 114 H 04/01/22 12:14 Resp 16 04/01/22 12:14 BP 106/71 04/01/22 12:14 Pulse Ox 96 04/01/22 12:14 FiO2 35 03/10/22 10:13 Intake & Output 03/31/22 04/01/22 04/01/22 18:59 06:59 18:59 Intake Total 240 30 Output Total 1500 275 7 Balance -1260 -245 -7 Weight 127.2 kg Intake: IV 140 30 Sodium Chloride 0.9% 1, 140 30 000 ml @ 10 mls/hr IV . Q24H MEHUL Rx#:[id number] Intake, IV Titration 100 Amount Piperacillin-Tazobactam 3 100 .375 gm In Sodium Chloride 0.9% 100 ml @ 25 mls/hr IVPB Q8HR MEHUL Rx# :[id number] Output: Urine 1500 275 5 Stool 2 Other: Voiding Method Indwelling Catheter Indwelling Catheter Indwelling Catheter # Voids 0 # Bowel Movements 1 1 ABP, PAP, CO, CI - Last Documented Arterial Blood Pressure 158/70 - Exam GENERAL DESCRIPTION: An elderly female lying in bed in no distress RESPIRATORY SYSTEM: Unlabored breathing , decreased breath sounds at bases HEART: S1 S2 regular rate and rhythm , ABDOMEN: Soft , no tenderness Thoracolumbar spine upper incision stitches are out incision is healed minimal maceration of the lower end no purulent drainage was noticed EXTREMITIES: Diffuse swelling bilateral lower extremity - Labs CBC & Chem 7: 03/31/22 06:03 04/01/22 07:10 Labs: Abnormal Lab Results - Last 24 Hours (Table) 04/01/22 Range/Units 07:10 Sodium 130 L (137-145) mmol/L BUN 21 H (7-17) mg/dL Creatinine 0.38 L (0.52-1.04) mg/dL Calcium 7.0 L (8.4-10.2) mg/dL Microbiology - Last 24 Hours (Table) 03/26/22 15:00 Blood Culture - Preliminary Blood No Growth after 120 hours 03/26/22 17:50 Anaerobic Culture - Final Back Anaerobic Gm Negative Bacilli 03/26/22 13:12 Gram Stain - Final Back Wound Culture - Final Pseudomonas aeruginosa Enterococcus faecalis Patsy albicans Assessment and Plan (1) Sepsis Current Visit: Yes Status: Acute Code(s): A41.9 - SEPSIS, UNSPECIFIED ORGANISM SNOMED Code(s): 46862919 Plan: 1-patient with diarrhea seemed to have responded to Questran to continue, hold if no bowel movement for 24 hours 3elevated white count and concern for possible maceration of the lower end of the incision cultures obtained per hospitalist which are currently growing enterococcus and Pseudomonas along with anaerobe and Patsy possible colonization however the patient is high risk of infection as per discussion with the spine surgery. Patient to continue with empiric Zosyn and monitor clinical course closely Time with Patient: Less than 30
[2022-04-01 17:38] LABS: Glucose,Whole Blood 128 mg/dL (70-110)
[2022-04-01] MEDS ORDERED: SODIUM CHLORIDE 0.9% 1,000 ML IV ONE (18:59)
--- NOTE | 2022-04-01 19:06 | P.PN ---
Subjective Progress Note Date: 04/01/22 Hospital course: Patient is a 71 yo CF with a hx of A fib s/p ablation, GERD, hypertension, dyslipidemia, and right diaphragmatic paralysis who presented for T10 to Pelvis decompression and fusion with revision. Blood loss and the case was approximately 1900 mL. During her operative course she required phenylephrine IV infusion, Vasopressin IVP. She also received TXA gtt. She received 7 L of lactated Ringer's. She received 1 amp of sodium bicarb intaop. She also received albumin. Her operative course was complicated with a cardiac arrest. During the case she developed A. fib with RVR and then quickly transitioned into bradycardia with a low end-tidal CO2. She received 0.4 of atropine and CPR was started. She received epinephrine 0.5. She achieved ROSC. Total down time was less than 5 minutes. She was extubated on 02/25. She continued to do well with struggled with pain. She was downgraded from ICU on 03/03. On 03/06/22 patient was noted to have a significant drop in hemoglobin from 10.0 down to 7.5 and upon reevaluation on 03/07 was found to have hemoglobin of 5.4, patient required multiple transfusions. She has received a total of 7 units PRBCs and 1 unit of platelets. She underwent a CT abdomen and pelvis and was found to have a large right chest hematoma dilated small bowel concerning for ileus. Patient was evaluated by cardiothoracic surgery and they recommended conservative management. On 03/07, patient was noted to be hypotensive with elevated WBC count of 42.3, with worsening renal function and hyperkalamia. Patient was treated with NS bolus, IV insulin/D50, Albuterol and sodium bicarbonate. She was transferred back to the ICU for septic shock requiring Levophed. Patient was started on Vancomycin and Cefepime. Blood and urine cultures were obtained and positive for Enterobacter. Infectious disease was consulted and patient was continued on Cefepime for treatment of Enterobacter UTI with secondary bacteremia and Vancomycin was discontinued. Patient was later weaned off of vasopressors and again transferred out of the ICU. Patient was started on Lasix for treatment of acute on chronic systolic heart failure with EF of 35-40%. Patient continued on Protonix for GI prophylaxis, amiodarone and metoprolol for atrial fibrillation with RVR sodium bicarb for treatment of metabolic acidosis. Pt's Xarelto remains hold at this time. Patient was evaluated by PMR and is currently not a candidate for inpatient rehab. She has been cleared by orthopedic surgery to start working with physical therapy and current plans are for patient to be discharged to intermediate facility for continued rehab. On 03/26/22 patient was again found to have elevating leukocytosis and repeat Wound cultures were obtained and showing no growth to date. Patient's WBC count continued to elevate, surgical wound showing no signs of infection and patient denies having any increased pain or complaints. She denies having any shortness of breath, cough or congestion and has remained afebrile. Worsening leukocytosis possibly secondary to development of atelectasis resulting from extended hospitalization and bedridden time frame or may be reactive secondary to daily steroids with Decadron. We will obtain a chest x-ray for further evaluation and patient again educated and encouraged on use of incentive spirometer. Prelimina ry Wound cultures are positive for gram-negative bacilli, group D enterococcus, and Patsy albicans... Culture results are likely resulting from contamination of the wound from pt's brief. We will await final culture and sensitivity report. Infectious disease broadened antibiotic coverage with Zosyn. Wound to be Open to air and discussed importance of keeping wound clean and dry with RN. Again, postsurgical wound is not showing any signs of infection including erythema, drainage, increased warmth, or foul odor. Nursing staff reported overnight on 03/28/22 patient again developed episodes of melena and at that time Dr. Arce, general surgeon was re-consulted. Upon assessment morning . Patient complaining of left upper and left lower quadrant abdominal pain and new-onset. Stat orders place. CT abdomen and pelvis, unable to use contrast as patient reports ALLERGIC reaction includes rash/hives and hypotension. Due to patient's recurrent episodes of hypotension will err on the side of caution and complete imaging without contrast. CT abdomen and pelvis revealing bilateral hydronephrosis unable to rule out obstructive etiology, concerns for fecal impaction, and persistent previously known right anterior chest wall hematoma. General surgery following and to evaluate concerns of fecal impaction. Warren catheter ordered for insertion and urology consulted for evaluation of bilateral hydronephrosis. Physical examination: Patient seen and fully evaluated at bedside this morning. She reports feeling good this morning. She reports she has been working on her feet exercises and has been having frequent bowel movements. Patient still remains unable to lift legs off of bed but spirits appear to be slightly lifted this morning. Patient remains on IV antibiotic Zosyn. Blood glucose stable patient has had no further episodes of hypoglycemia since discontinuation of Levimir. We will continue to monitor, plan for rehab next week. General: ill appearing, no acute distress, appears at stated age, Derm: warm, dry. Postsurgical dressing clean, dry, and intact this morning. Head: atraumatic, normocephalic, symmetric Eyes: EOMI, no lid lag, anicteric sclera Mouth: no lip lesion, dry membranes moist Cardiovascular: S1S2 irregular, no murmur Lungs: Respirations even, regular, and unlabored on room air. Lungs clear to auscultation bilaterally Ext: no gross muscle atrophy, no edema, no contractures Abd: Warren catheter in place. Obese. Non tender to palpation. Neuro: Moving all 4 extremities independently, sensation and movement equal and intact in bilateral lower extremities. Patient continues with equal Bilateral lower extremity weakness, likely secondary to bedridden state for the past 35 days. Psych: Alert, oriented, appropriate affect Assessment and plan of care: Septic shock resulting from Enterobacter cloacae UTI with secondary bacteremia Status post Cardiac arrest with ROSC Enterobacter cloacae UTI with secondary bacteremia Lactic acidosis Leukocytosis -Patient was successfully weaned off mechanical ventilation and pressors and transferred out of ICU. -Completed a course of cefepime and started back on antibiotics for worsening leukocytosis, currently on Zosyn. -Blood cultures + Enterobacter cloacae. Repeat cultures negative on 03/07/22 and 03/26/22. -Urine culture + Enterobacter cloacae -Wound cultures 03/26/22 are positive for pseudomonas aeruginosa, enterococcus fasciculus, and Patsy albicans. Continue with Zosyn and per positivity report. -Pulmonology/criminal investigator customs following and cleared patient from their perspective on 03/22/22 -Infectious disease following Left upper and lower quadrant abdominal pain Fecal impaction -CT abdomen and pelvis concerning for possible fecal impaction. -Gen. surgery was consulted for reevaluation and starting patient on lactulose. Bilateral hydronephrosis, likely secondary to urinary retention -CT abdomen and pelvis revealing bilateral hydronephrosis unable to rule out obstructive etiology. -Renal function stable with the exception of mildly elevated BUN at 24 and creatinine of 0.41.. Documented urine output over the past 24 hours 1225 mL. -Urology following, recommending continuation of Warren catheter Acute on Chronic Systolic CHF -Echo shows EF 35-40% with severe pulmonary HTN, moderate MR. -Cardiology following -Continue amiodarone, metoprolol, and furosemide -Patient initially started on Aldactone but was discontinued secondary to hyp erkalemia -Continue close monitoring of I's and O's Prerenal azotemia, improving Hyponatremia, improving -Na 132, BUN 24. -Nephrology following. Prediabetes with hyperglycemia, now hypoglycemia -Likely steroid induced -A1c is 6 -Levimir discontinued due to episodes of hypoglycemia after discontinuation of steroids -Continue with sliding scale Acute blood loss anemia, hemoglobin stable. Right breast hematoma GI bleed, ischemic bowel ruled out. -Status post a total of 7 units PRBCs and 1 unit of platelets. -Gen. surgery following anticipation for EGD which revealed gastritis and mild esophagitis with no active bleeding. -Xarelto remains on hold at this time. -CT surgery recommends conservative managment of hematoma. -Monitor hemoglobin and Transfuse as needed if Hgb < 7. Atrial fibrillation with persistent RVR -Xarelto remains on hold secondary to GI bleed. -Continue Amiodarone and Metoprolol. -Cardiology following and on 03/24/22 cleared patient from cardiac standpoint for discharge. Hyperkalemia, resolved after discontinuation of Aldactone and lisinopril Metabolic acidosis, resolved -Continue sodium bicarb 650 mg twice a day -Aldactone and lisinopril discontinued. -Nephrology is following. T10 to pelvis decompression with fusion Post-op pain -Management per primary admitting Orthopedic surgery team including DVT proph ylaxis, pain management, wound/dressing care, weightbearing, and PT/OT . -Continue Gabapentin, Valium, Flexeril. -Decadron discontinued on 03/28/22 -PT/OT following. -Plan is for discharge to [facility] for [facility]hab Right diaphragmatic paralysis -Pulmonology following and cleared patient from their perspective on 03/22/22 Hyperlipidemia -Continue daily medication regimen with atorvastatin. Hypertension -Monitor vital signs and continue daily medication regimen with metoprolol and amiodarone. -Lisinopril and Aldactone was discontinued secondary to hyperkalemia. Transaminitis Obstructive LFTs. -Likely ischemic hepatitis. -Resolved Thank you for allowing us to participate in the care of this pleasant patient. Do not hesitate to contact us with questions. Someone can be reached from the [facility] hospitalist group all hours of the day at [phone] or via perfect serve. Laron Werner NP rendered care for this patient independently, reviewed the findings and plan as documented in the note above. I did not physically speak with or examine the patient on this date. Objective - Vital Signs Vital signs: Vital Signs Temp 97.7 F 04/01/22 07:20 Pulse 114 H 04/01/22 07:20 Resp 16 04/01/22 07:20 BP 103/70 04/01/22 07:20 Pulse Ox 97 04/01/22 07:20 FiO2 35 03/10/22 10:13 Intake & Output 03/31/22 04/01/22 04/01/22 18:59 06:59 18:59 Intake Total 240 30 Output Total 1500 275 5 Balance -1260 -245 -5 Weight 127.2 kg Intake: IV 140 30 Sodium Chloride 0.9% 1, 140 30 000 ml @ 10 mls/hr IV . Q24H [facility] Rx#:[id number] Intake, IV Titration 100 Amount Piperacillin-Tazobactam 3 100 .375 gm In Sodium Chloride 0.9% 100 ml @ 25 mls/hr IVPB Q8HR [facility] Rx# :[id number] Output: Urine 1500 275 5 Other: Voiding Method Indwelling Catheter Indwelling Catheter # Voids 0 # Bowel Movements 1 1 ABP, PAP, CO, CI - Last Documented Arterial Blood Pressure 158/70 - Labs CBC & Chem 7: 03/31/22 06:03 04/01/22 07:10 Labs: Abnormal Lab Results - Last 24 Hours (Table) 03/31/22 04/01/22 Range/Units 06:03 07:10 WBC 14.01 H (4.50-10.00) X 10*3/uL RBC 2.89 L (4.10-5.20) X 10*6/uL Hgb 9.0 L (12.0-15.0) g/dL Hct 27.7 L (37.2-46.3) % RDW 20.9 H (11.5-14.5) % Absolute Nucleated RBC 0.17 H (0.00-0.00) X 10*3/uL Metamyelocytes % 3 H (0-0) % Neutrophils # (Manual) 12.33 H (2.00-8.90) X 10*3/uL Lymphocytes # (Manual) 0.84 L (0.90-5.00) X 10*3/uL Eosinophils # (Manual) 0 L (0.04-0.35) X 10*3/uL NRBC/100 WBC Diff 1.2 H (0.0-0.0) /100 WBCS Sodium 130 L (137-145) mmol/L BUN 21 H (7-17) mg/dL Creatinine 0.38 L (0.52-1.04) mg/dL Calcium 7.0 L (8.4-10.2) mg/dL Microbiology - Last 24 Hours (Table) 03/26/22 15:00 Blood Culture - Preliminary Blood No Growth after 120 hours 03/26/22 17:50 Anaerobic Culture - Final Back Anaerobic Gm Negative Bacilli 03/26/22 13:12 Gram Stain - Final Back Wound Culture - Final Pseudomonas aeruginosa Enterococcus faecalis Patsy albicans
--- NOTE | 2022-04-01 19:36 | P.PN ---
Subjective Progress Note Date: 04/01/22 She denies blood in stools. She denies abdominal pain. Clinically stable. Hgb stable. No acute surgical intervention. Objective - Vital Signs Vital signs: Vital Signs Temp 97.8 F 04/01/22 12:14 Pulse 114 H 04/01/22 12:14 Resp 16 04/01/22 12:14 BP 106/71 04/01/22 12:14 Pulse Ox 96 04/01/22 12:14 FiO2 35 03/10/22 10:13 Intake & Output 04/01/22 04/01/22 04/02/22 06:59 18:59 06:59 Intake Total 30 240 Output Total 275 1207 Balance -245 -967 Intake: IV 30 Sodium Chloride 0.9% 1, 30 000 ml @ 10 mls/hr IV . Q24H [facility] Rx#:[id number] Oral 240 Output: Urine 275 1205 Stool 2 Other: Voiding Method Indwelling Catheter Indwelling Catheter # Voids 0 # Bowel Movements 1 1 ABP, PAP, CO, CI - Last Documented Arterial Blood Pressure 158/70 - Labs CBC & Chem 7: 03/31/22 06:03 04/01/22 07:10 Labs: Abnormal Lab Results - Last 24 Hours (Table) 04/01/22 04/01/22 Range/Units 07:10 17:26 Sodium 130 L (137-145) mmol/L BUN 21 H (7-17) mg/dL Creatinine 0.38 L (0.52-1.04) mg/dL POC Glucose (mg/dL) 128 H (70-110) mg/dL Calcium 7.0 L (8.4-10.2) mg/dL Microbiology - Last 24 Hours (Table) 03/26/22 15:00 Blood Culture - Final Blood No Growth after 144 hours
[2022-04-01 20:56] LABS: Glucose,Whole Blood 115 mg/dL (70-110)
[2022-04-01] MEDS: MAGNESIUM SULFATE-D5W PMX 1 GM in DEXTROSE/WATER 1 100ML.BAG IVPB SCH ×2 (21:38→22:41)
[2022-04-02] MEDS: ACETAMINOPHEN TAB 500 MG TAB PO SCH ×5 (00:01→23:22)
[2022-04-02] MEDS: PIPERACILLIN-TAZOBACTAM 3.375 GM in SODIUM CHLORIDE 0.9% 100 ML IVPB SCH ×4 (00:09→23:23)
[2022-04-02] MEDS: SODIUM CHLORIDE 0.9% 1,000 ML IV SCH (05:06)
[2022-04-02] MEDS: LEVOTHYROXINE 88 MCG TAB PO SCH (05:59)
[2022-04-02] MEDS: HYDROcodone/APAP 10-325MG 1 EACH TAB PO PRN (06:01)
[2022-04-02 08:11] LABS: African American GFR (CKD) >90 (>60 ml/min/1.73 sqM); Anion Gap 0 mmol/L; Blood Urea Nitrogen 20 mg/dL (7-17); Carbon Dioxide 30 mmol/L (22-30); Chloride 101 mmol/L (98-107); Glucose 117 mg/dL (74-99); Magnesium 1.9 mg/dL (1.6-2.3); Non-African American GFR(CKD) >90 (>60 ml/min/1.73 sqM); Potassium 3.4 mmol/L (3.5-5.1); Sodium 131 mmol/L (137-145)
[2022-04-02 08:14] LABS: Glucose,Whole Blood 135 mg/dL (70-110)
[2022-04-02] MEDS: INSULIN ASPART (NovoLOG) 100 UNIT/ML VIAL SQ SCH ×4 (08:22→22:33)
[2022-04-02] MEDS: PANTOPRAZOLE 40 MG/10 ML VIAL IVP SCH (09:05)
[2022-04-02] MEDS: MIDODRINE 5 MG TAB PO SCH ×3 (09:05→17:49)
[2022-04-02] MEDS: DULoxetine HCL 60 MG CAPSULE.DR PO SCH (09:12)
[2022-04-02] MEDS: ATORVASTATIN 20 MG TAB PO SCH (09:12)
[2022-04-02] MEDS: METOPROLOL SUCCINATE (ER) 25 MG TAB.ER.24H PO SCH ×3 (09:12→22:30)
[2022-04-02] MEDS: AMIODARONE 200 MG TAB PO SCH (09:12)
[2022-04-02] MEDS: FUROSEMIDE 40 MG TAB PO SCH (09:12)
[2022-04-02] MEDS: GABAPENTIN 400 MG CAP PO SCH ×3 (09:12→22:26)
[2022-04-02] MEDS: MAGNESIUM OXIDE 400 MG TAB PO SCH (09:12)
[2022-04-02] MEDS: LACTULOSE 20 GM/30 ML CUP PO SCH ×2 (09:12→22:25)
[2022-04-02] MEDS: SODIUM BICARBONATE TAB 650 MG TAB PO SCH ×2 (09:13→22:26)
--- NOTE | 2022-04-02 09:18 | P.PN ---
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 She is currently resting in bed. Patient states she did not get up at all yesterday. She states her pain is managed on current regimen. Surgical dressing is CDI. Maintain incision clean and dry, please change dressing as needed. She has no acute concerns at this time. Would like to get patient to rehab, hopefully in the next day or two. She denies any fever/chills or chest pain. Objective - Vital Signs Vital signs: Vital Signs Temp 97.9 F 04/02/22 02:00 Pulse 109 H 04/02/22 02:00 Resp 15 04/02/22 02:00 BP 106/71 04/02/22 02:00 Pulse Ox 92 L 04/02/22 02:00 FiO2 35 03/10/22 10:13 Intake & Output 04/01/22 04/02/22 04/02/22 18:59 06:59 18:59 Intake Total 240 110 Output Total 1207 Balance -967 110 Intake: IV 110 Sodium Chloride 0.9% 1, 110 000 ml @ 10 mls/hr IV . Q24H [facility] Rx#:[id number] Oral 240 Output: Urine 1205 Stool 2 Other: Voiding Method Indwelling Catheter Indwelling Catheter # Voids 0 # Bowel Movements 1 ABP, PAP, CO, CI - Last Documented Arterial Blood Pressure 158/70 - Exam PHYSICAL EXAMINATION: General: Awake, alert, appropriate for age, in no acute distress. HEENT: No changes Extremities: Skin warm and dry without no acute lesions, coloration, temperature, skin intact, no tenderness or erythema. Integument: Surgical incisions: Incision cleaned with Betadine this morning, Upper portion of incision and lower portion is well healed, sutures have been removed. Mid- portion remains sutured with maceration noted. Warren cath present Palpation: Special findings: mild discomfort with palpation of the right breast area with healing hematoma noted as well as anterior chest wall. VASCULAR STATUS : Wrist Pulses: [2/4 bilateral radial and ulnar] Pedal Pulses: [2/4 bilateral DP and PT] Color: [Normal] Edema: Improved in arms and hands. NEUROLOGIC EXAMINATION: Mental Status: Awake and alert, oriented,but slow with normal attention, con centration and memory, and fluent, she has slow speech Cranial Nerves: I: Olfactory not tested. II: Visual acuity normal, no visual field deficit noted with confrontation. III,IV: Normal pupillary reflexes & intact extraocular movements without nystagmus. V,: Intact symmetrical facial sensation. VII: Intact symmetrical facial motor movement VIII: Hearing intact. IX,X: Intact gag, swallow, & normal voice. XI: Sternocleidomastoid, trapezius function intact. XII: Tongue midline with normal movements. Special Tests: L'hermitte's Sign: Absent Straight Leg Raising: Absent Bilateral Motor Exam (0-5/5, N/T) STRENGTH 4- out of 5 strength in upper extremity's bilaterally all major muscle groups without focal deficits generalized weakness 3 to 5 strength bilateral lower extremities all major muscle groups with generalized weakness no focal deficits. She is weak in her hip flexors currently, bilateral quad muscles are engaging. REFLEXES Upper Extremity: RIGHT [2]/4 LEFT [2]/4 Lower Extremity: RIGHT [2]/4 LEFT [2]/4 Pathological Reflexes Warren's: RIGHT [Absent] LEFT [Absent] Babinski: RIGHT [Absent] LEFT [Absent] Clonus: RIGHT [None] LEFT [None] SENSORY Intact Gait and Functional Evaluation: Sit patient at bedside and increase physical activity as tolerated - Labs CBC & Chem 7: 03/31/22 06:03 04/02/22 06:57 Labs: Abnormal Lab Results - Last 24 Hours (Table) 04/01/22 04/01/22 04/02/22 Range/Units 17:26 20:54 06:57 Sodium 131 L (137-145) mmol/L Potassium 3.4 L (3.5-5.1) mmol/L BUN 20 H (7-17) mg/dL Creatinine 0.39 L (0.52-1.04) mg/dL Glucose 117 H (74-99) mg/dL POC Glucose (mg/dL) 128 H 115 H (70-110) mg/dL Calcium 7.0 L (8.4-10.2) mg/dL 04/02/22 Range/Units 08:13 Sodium (137-145) mmol/L Potassium (3.5-5.1) mmol/L BUN (7-17) mg/dL Creatinine (0.52-1.04) mg/dL Glucose (74-99) mg/dL POC Glucose (mg/dL) 135 H (70-110) mg/dL Calcium (8.4-10.2) mg/dL Microbiology - Last 24 Hours (Table) 03/26/22 15:00 Blood Culture - Final Blood No Growth after 144 hours Assessment and Plan Assessment: 1. 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 Status post 7 units PRBC and 1 pack platelets -bilateral lower extremity weakness, status post multiple controlled falls in- house -Enterobacter sepsis, UTI -status post cardiac arrest Plan: -Appreciate technical support consultant and team management PCC and medicine -Appreciate cardiothoracic, Gen. surgery, nephrology, ID evaluations -Continue Activity: Patient to be up in chair for all meals. Encourage to increase physical activity as tolerated. -Cont Abx for duration of stay -Caffiene daily 200 mg daily, Fioricet -Pain control: Adequate today ( Tylenol 1000 mg [facility], Oxy IR q6 hrs 10-15 mg titrated to pain (pt been on [place] for 20 yrs), Cont Gabapentin,) -Meds: reviewed -Trend labs -Transfusions to vitals -GI ppx: senna, Miralax -Cont with FBS -DVT PPX: Mechanical -Hygiene: Maintain incision clean and dry. Meticulous cleaning after BMs away from incision site The wound needs to be kept meticulously clean, and dry. -Encourage IS 10x/hr -Anticipate discharge to [facility] in the next 24-48 hours.
[2022-04-02] MEDS: CAFFEINE SODIUM BENZOATE IVPB SCH (10:49)
[2022-04-02] MEDS: SODIUM CHLORIDE 0.9% IVPB SCH (10:49)
[2022-04-02] MEDS: MAG HYDROX/AL HYDROX/SIMETH 30 ML, diphenhydrAMINE ELIXIR 75 MG, LIDOCAINE VISCOUS 2% 3... PO SCH ×9 (10:49→22:27)
--- NOTE | 2022-04-02 12:07 | P.PN ---
Subjective Patient is seen in follow-up for hyponatremia. Sodium level 131 today. Resting in bed. Oral intake is fair. No vomiting or diarrhea. Nonoliguric. Feels weak. Objective - Vital Signs Vital signs: Vital Signs Temp 98.3 F 04/02/22 08:00 Pulse 111 H 04/02/22 08:00 Resp 16 04/02/22 08:00 BP 104/65 04/02/22 08:00 Pulse Ox 93 L 04/02/22 08:00 FiO2 35 03/10/22 10:13 Intake & Output 04/01/22 04/02/22 04/02/22 18:59 06:59 18:59 Intake Total 240 110 Output Total 1207 Balance -967 110 Intake: IV 110 Sodium Chloride 0.9% 1, 110 000 ml @ 10 mls/hr IV . Q24H [facility] Rx#:[id number] Oral 240 Output: Urine 1205 Stool 2 Other: Voiding Method Indwelling Catheter Indwelling Catheter # Voids 0 # Bowel Movements 1 ABP, PAP, CO, CI - Last Documented Arterial Blood Pressure 158/70 - Exam Awake, comfortable, no acute distress Examination of the heart S1 and S2 Examination lungs decreased breath sounds bases Abdomen is soft obese nontender Examination lower extremity shows 1+ edema bilaterally PHOTORADIO OPERATOR exam grossly intact - Labs CBC & Chem 7: 03/31/22 06:03 04/02/22 06:57 Labs: Abnormal Lab Results - Last 24 Hours (Table) 04/01/22 04/01/22 04/02/22 Range/Units 17:26 20:54 06:57 Sodium 131 L (137-145) mmol/L Potassium 3.4 L (3.5-5.1) mmol/L BUN 20 H (7-17) mg/dL Creatinine 0.39 L (0.52-1.04) mg/dL Glucose 117 H (74-99) mg/dL POC Glucose (mg/dL) 128 H 115 H (70-110) mg/dL Calcium 7.0 L (8.4-10.2) mg/dL 04/02/22 Range/Units 08:13 Sodium (137-145) mmol/L Potassium (3.5-5.1) mmol/L BUN (7-17) mg/dL Creatinine (0.52-1.04) mg/dL Glucose (74-99) mg/dL POC Glucose (mg/dL) 135 H (70-110) mg/dL Calcium (8.4-10.2) mg/dL Microbiology - Last 24 Hours (Table) 03/26/22 15:00 Blood Culture - Final Blood No Growth after 144 hours Assessment and Plan Assessment: 1. Hyponatremia. Hypervolemic. Urine sodium was 30 and urine osmolality 515 on 03/08/2022. TSH normal dated 03/09/2022. Cortisol level not low. Status post [facility] this admission. Sodium level 131 today. 2. Enterobacter bacteremia and UTI. ID following. On antibiotics. 3. Metabolic acidosis secondary to GI losses. On oral bicarb. Improved. 4. Diabetes mellitus. 5. Lower extremity edema on Lasix. 6. Bilateral hydronephrosis. Urology following. Has Warren catheter. 7. Acute on chronic systolic CHF with ejection fraction of 35-40% with severe pulmonary hypertension and moderate mitral regurgitation. Plan: Continue with oral Lasix and fluid restriction Repeat labs in a.m.
[2022-04-02 12:26] LABS: Glucose,Whole Blood 204 mg/dL (70-110)
--- NOTE | 2022-04-02 13:28 | P.PN ---
Subjective Progress Note Date: 04/02/22 Principal diagnosis: UTI and bacteremia Patient is a 71-year-old female with a past medical history difficult for atrial fibrillation flutter hypertension hyperlipidemia hypothyroidism right breast cancer electively admitted to the hospital more than 2 weeks ago 022 for T10 to lumbar spine revision decompression and posterior lateral interbody fusion, patient did have a episode of hypotension and elevated white count requiring admission to the ICU patient did have a positive UA and gram- negative bacteremia and is scheduled for exploration of the thoracolumbar incision completed on 03/09/2022 with apparently no evidence of any abscess On today's evaluation that is 04/02/2022 the patient continues to be afebrile , the patient is breathing comfortably on room air, the patient denies chest pain mild shortness of breath and a dry cough some nausea but no vomiting no abdominal pain or diarrhea lower back pain is controlled Objective - Vital Signs Vital signs: Vital Signs Temp 98.3 F 04/02/22 08:00 Pulse 109 H 04/02/22 12:12 Resp 16 04/02/22 08:00 BP 91/56 04/02/22 12:12 Pulse Ox 93 L 04/02/22 08:00 FiO2 35 03/10/22 10:13 Intake & Output 04/01/22 04/02/22 04/02/22 18:59 06:59 18:59 Intake Total 240 110 Output Total 1207 Balance -967 110 Intake: IV 110 Sodium Chloride 0.9% 1, 110 000 ml @ 10 mls/hr IV . Q24H ON LICENSE OF [facility] Rx#:[id number] Oral 240 Output: Urine 1205 Stool 2 Other: Voiding Method Indwelling Catheter Indwelling Catheter # Voids 0 # Bowel Movements 1 ABP, PAP, CO, CI - Last Documented Arterial Blood Pressure 158/70 - Exam GENERAL DESCRIPTION: An elderly female lying in bed in no distress RESPIRATORY SYSTEM: Unlabored breathing , decreased breath sounds at bases HEART: S1 S2 regular rate and rhythm , ABDOMEN: Soft , no tenderness Thoracolumbar spine upper incision stitches are out incision is healed minimal maceration of the lower end no purulent drainage was noticed EXTREMITIES: Diffuse swelling bilateral lower extremity - Labs CBC & Chem 7: 03/31/22 06:03 04/02/22 06:57 Labs: Abnormal Lab Results - Last 24 Hours (Table) 1204/01/22 04/02/22 Range/Units 17:26 20:54 06:57 Sodium 131 L (137-145) mmol/L Potassium 3.4 L (3.5-5.1) mmol/L BUN 20 H (7-17) mg/dL Creatinine 0.39 L (0.52-1.04) mg/dL Glucose 117 H (74-99) mg/dL POC Glucose (mg/dL) 128 H 115 H (70-110) mg/dL Calcium 7.0 L (8.4-10.2) mg/dL 04/02/22 04/02/22 Range/Units 08:13 12:24 Sodium (137-145) mmol/L Potassium (3.5-5.1) mmol/L BUN (7-17) mg/dL Creatinine (0.52-1.04) mg/dL Glucose (74-99) mg/dL POC Glucose (mg/dL) 135 H 204 H (70-110) mg/dL Calcium (8.4-10.2) mg/dL Microbiology - Last 24 Hours (Table) 03/26/22 15:00 Blood Culture - Final Blood No Growth after 144 hours Assessment and Plan (1) Sepsis Current Visit: Yes Status: Acute Code(s): A41.9 - SEPSIS, UNSPECIFIED ORGANISM SNOMED Code(s): 83505927 Plan: 1-patient with diarrhea seemed to have responded to Questran to continue, hold if no bowel movement for 24 hours 2elevated white count and concern for possible maceration of the lower end of the incision cultures obtained per hospitalist which are currently growing enterococcus and Pseudomonas along with anaerobe and Patsy possible colonization however the patient is high risk of infection as per discussion with the spine surgery. 3- Patient currently being treated with Zosyn and continue with supportive care Time with Patient: Less than 30
--- NOTE | 2022-04-02 17:59 | P.PN ---
Subjective Progress Note Date: 04/02/22 Hospital course: Patient is a 71 yo CF with a hx of A fib s/p ablation, GERD, hypertension, dyslipidemia, and right diaphragmatic paralysis who presented for T10 to Pelvis decompression and fusion with revision. Blood loss and the case was approximately 1900 mL. During her operative course she required phenylephrine IV infusion, Vasopressin IVP. She also received TXA gtt. She received 7 L of lactated Ringer's. She received 1 amp of sodium bicarb intaop. She also received albumin. Her operative course was complicated with a cardiac arrest. During the case she developed A. fib with RVR and then quickly transitioned into bradycardia with a low end-tidal CO2. She received 0.4 of atropine and CPR was started. She received epinephrine 0.5. She achieved ROSC. Total down time was less than 5 minutes. She was extubated on 02/25. She continued to do well with struggled with pain. She was downgraded from ICU on 03/03. On 03/06/22 patient was noted to have a significant drop in hemoglobin from 10.0 down to 7.5 and upon reevaluation on 03/07 was found to have hemoglobin of 5.4, patient required multiple transfusions. She has received a total of 7 units PRBCs and 1 unit of platelets. She underwent a CT abdomen and pelvis and was found to have a large right chest hematoma dilated small bowel concerning for ileus. Patient was evaluated by cardiothoracic surgery and they recommended conservative management. On 03/07, patient was noted to be hypotensive with elevated WBC count of 42.3, with worsening renal function and hyperkalamia. Patient was treated with NS bolus, IV insulin/D50, Albuterol and sodium bicarbonate. She was transferred back to the ICU for septic shock requiring Levophed. Patient was started on Vancomycin and Cefepime. Blood and urine cultures were obtained and positive for Enterobacter. Infectious disease was consulted and patient was continued on Cefepime for treatment of Enterobacter UTI with secondary bacteremia and Vancomycin was discontinued. Patient was later weaned off of vasopressors and again transferred out of the ICU. Patient was started on Lasix for treatment of acute on chronic systolic heart failure with EF of 35-40%. Patient continued on Protonix for GI prophylaxis, amiodarone and metoprolol for atrial fibrillation with RVR sodium bicarb for treatment of metabolic acidosis. Pt's Xarelto remains hold at this time. Patient was evaluated by PMR and is currently not a candidate for inpatient rehab. She has been cleared by orthopedic surgery to start working with physical therapy and current plans are for patient to be discharged to group home facility for continued rehab. On 03/26/22 patient was again found to have elevating leukocytosis and repeat Wound cultures were obtained and showing no growth to date. Patient's WBC count continued to elevate, surgical wound showing no signs of infection and patient denies having any increased pain or complaints. She denies having any shortness of breath, cough or congestion and has remained afebrile. Worsening leukocytosis possibly secondary to development of atelectasis resulting from extended hospitalization and bedridden time frame or may be reactive secondary to daily steroids with Decadron. We will obtain a chest x-ray for further evaluation and patient again educated and encouraged on use of incentive spirometer. Prelimina ry Wound cultures are positive for gram-negative bacilli, group D enterococcus, and Patsy albicans... Culture results are likely resulting from contamination of the wound from pt's brief. We will await final culture and sensitivity report. Infectious disease broadened antibiotic coverage with Zosyn. Wound to be Open to air and discussed importance of keeping wound clean and dry with RN. Again, postsurgical wound is not showing any signs of infection including erythema, drainage, increased warmth, or foul odor. Nursing staff reported overnight on 03/28/22 patient again developed episodes of melena and at that time Dr. Arce, general surgeon was re-consulted. Upon assessment morning . Patient complaining of left upper and left lower quadrant abdominal pain and new-onset. Stat orders place. CT abdomen and pelvis, unable to use contrast as patient reports ALLERGIC reaction includes rash/hives and hypotension. Due to patient's recurrent episodes of hypotension will err on the side of caution and complete imaging without contrast. CT abdomen and pelvis revealing bilateral hydronephrosis unable to rule out obstructive etiology, concerns for fecal impaction, and persistent previously known right anterior chest wall hematoma. General surgery following and to evaluate concerns of fecal impaction. Warren catheter ordered for insertion and urology consulted for evaluation of bilateral hydronephrosis. Physical examination: Patient seen and fully evaluated at bedside this morning. Patient remains on IV antibiotic Zosyn. patient reports having good bowel movements and denies currently having any complaints, needs, or concerns. Patient reports she continues to move feet and continue exercises as she was shown but still s truggles to lift legs off of bed or bending knees independently. Blood glucose levels remain stable, patient has had no further episodes of hypoglycemia since discontinuation of Levimir. morning labs pending. We will continue to monitor and plan for rehab this week. General: ill appearing, no acute distress, appears at stated age, Derm: warm, dry. Postsurgical dressing clean, dry, and intact this morning. Head: atraumatic, normocephalic, symmetric Eyes: EOMI, no lid lag, anicteric sclera Mouth: no lip lesion, dry membranes moist Cardiovascular: S1S2 irregular, no murmur Lungs: Respirations even, regular, and unlabored on room air. Lungs clear to auscultation bilaterally Ext: no gross muscle atrophy, no edema, no contractures Abd: Warren catheter in place. Obese. Non tender to palpation. Neuro: Moving all 4 extremities independently, sensation and movement equal and intact in bilateral lower extremities. Patient continues with equal Bilateral lower extremity weakness, likely secondary to bedridden state for the past 35 days. Psych: Alert, oriented, appropriate affect Assessment and plan of care: Septic shock resulting from Enterobacter cloacae UTI with secondary bacteremia Status post Cardiac arrest with ROSC Enterobacter cloacae UTI with secondary bacteremia Lactic acidosis Leukocytosis -Patient was successfully weaned off mechanical ventilation and pressors and transferred out of ICU. -Completed a course of cefepime and started back on antibiotics for worsening leukocytosis, currently on Zosyn. -Blood cultures + Enterobacter cloacae. Repeat cultures negative on 03/07/22 and 03/26/22. -Urine culture + Enterobacter cloacae -Wound cultures 03/26/22 are positive for pseudomonas aeruginosa, enterococcus fasciculus, and Patsy albicans. Continue with Zosyn and per positivity report. -Pulmonology/case operator following and cleared patient from their perspective on 03/22/22 -Infectious disease following Left upper and lower quadrant abdominal pain Fecal impaction -CT abdomen and pelvis concerning for possible fecal impaction. -Gen. surgery was consulted for reevaluation and starting patient on lactulose. Bilateral hydronephrosis, likely secondary to urinary retention -CT abdomen and pelvis revealing bilateral hydronephrosis unable to rule out obstructive etiology. -Renal function stable with the exception of mildly elevated BUN at 24 and creatinine of 0.41.. Documented urine output over the past 24 hours 1225 mL. -Urology following, recommending continuation of Warren catheter Acute on Chronic Systolic CHF -Echo shows EF 35-40% with severe pulmonary HTN, moderate MR. -Cardiology following -Continue amiodarone, metoprolol, and furosemide -Patient initially started on Aldactone but was discontinued secondary to hyperkalemia -Continue close monitoring of I's and O's Prerenal azotemia, improving Hyponatremia, improving -Na 132, BUN 24. -Nephrology following. Prediabetes with hyperglycemia, now hypoglycemia -Likely steroid induced -A1c is 6 -Levimir discontinued due to episodes of hypoglycemia after discontinuation of steroids -Continue with sliding scale Acute blood loss anemia, hemoglobin stable. Right breast hematoma GI bleed, ischemic bowel ruled out. -Status post a total of 7 units PRBCs and 1 unit of platelets. -Gen. surgery following anticipation for EGD which revealed gastritis and mild esophagitis with no active bleeding. -Xarelto remains on hold at this time. -CT surgery recommends conservative managment of hematoma. -Monitor hemoglobin and Transfuse as needed if Hgb < 7. Atrial fibrillation with persistent RVR -Xarelto remains on hold secondary to GI bleed. -Continue Amiodarone and Metoprolol. -Cardiology following and on 03/24/22 cleared patient from cardiac standpoint for discharge. Hyperkalemia, resolved after discontinuation of Aldactone and lisinopril Metabolic acidosis, resolved -Continue sodium bicarb 650 mg twice a day -Aldactone and lisinopril discontinued. -Nephrology is following. T10 to pelvis decompression with fusion Post-op pain -Management per primary admitting Orthopedic surgery team including DVT prophylaxis, pain management, wound/dressing care, weightbearing, and PT/OT . -Continue Gabapentin, Valium, Flexeril. -Decadron discontinued on 03/28/22 -PT/OT following. -Plan is for discharge to [facility] for rehab Right diaphragmatic paralysis -Pulmonology following and cleared patient from their perspective on 03/22/22 Hyperlipidemia -Continue daily medication regimen with atorvastatin. Hypertension -Monitor vital signs and continue daily medication regimen with metoprolol and amiodarone. -Lisinopril and Aldactone was discontinued secondary to hyperkalemia. Transaminitis Obstructive LFTs. -Likely ischemic hepatitis. -Resolved Thank you for allowing us to participate in the care of this pleasant patient. Do not hesitate to contact us with questions. Someone can be reached from the [facility] hospitalist group all hours of the day at [phone] or via [employer]. Laron Werner NP rendered care for this patient independently, reviewed the findings and plan as documented in the note above. I did not physically speak with or examine the patient on this date. Objective - Vital Signs Vital signs: Vital Signs Temp 98.3 F 04/02/22 08:00 Pulse 111 H 04/02/22 08:00 Resp 16 04/02/22 08:00 BP 104/65 04/02/22 08:00 Pulse Ox 93 L 04/02/22 08:00 FiO2 35 03/10/22 10:13 Intake & Output 04/01/22 04/02/22 04/02/22 18:59 06:59 18:59 Intake Total 240 110 Output Total 1207 Balance -967 110 Intake: IV 110 Sodium Chloride 0.9% 1, 110 000 ml @ 10 mls/hr IV . Q24H [facility] Rx#:[id number] Oral 240 Output: Urine 1205 Stool 2 Other: Voiding Method Indwelling Catheter Indwelling Catheter # Voids 0 # Bowel Movements 1 ABP, PAP, CO, CI - Last Documented Arterial Blood Pressure 158/70 - Labs CBC & Chem 7: 04/05/22 08:10 04/04/22 22:14 Labs: Abnormal Lab Results - Last 24 Hours (Table) 04/01/22 04/01/22 04/02/22 Range/Units 17:26 20:54 06:57 Sodium 131 L (137-145) mmol/L Potassium 3.4 L (3.5-5.1) mmol/L BUN 20 H (7-17) mg/dL Creatinine 0.39 L (0.52-1.04) mg/dL Glucose 117 H (74-99) mg/dL POC Glucose (mg/dL) 128 H 115 H (70-110) mg/dL Calcium 7.0 L (8.4-10.2) mg/dL 04/02/22 Range/Units 08:13 Sodium (137-145) mmol/L Potassium (3.5-5.1) mmol/L BUN (7-17) mg/dL Creatinine (0.52-1.04) mg/dL Glucose (74-99) mg/dL POC Glucose (mg/dL) 135 H (70-110) mg/dL Calcium (8.4-10.2) mg/dL Microbiology - Last 24 Hours (Table) 03/26/22 15:00 Blood Culture - Final Blood No Growth after 144 hours
[2022-04-02 18:07] LABS: Glucose,Whole Blood 130 mg/dL (70-110)
[2022-04-02 20:47] LABS: Glucose,Whole Blood 210 mg/dL (70-110)
--- NOTE | 2022-04-02 22:11 | P.PN ---
Subjective Progress Note Date: 04/02/22 patient reports new right upper quadrant abdominal pain. Otherwise no signs of bleeding hematemesis or blood in stools. May benefit from additional imaging. Objective - Vital Signs Vital signs: Vital Signs Temp 98.3 F 04/02/22 19:33 Pulse 69 04/02/22 19:33 Resp 15 04/02/22 19:33 BP 97/58 04/02/22 19:33 Pulse Ox 94 L 04/02/22 19:33 FiO2 35 03/10/22 10:13 Intake & Output 04/02/22 04/02/22 04/03/22 06:59 18:59 06:59 Intake Total 110 Output Total 650 Balance 110 -650 Intake: IV 110 Sodium Chloride 0.9% 1, 110 000 ml @ 10 mls/hr IV . Q24H [facility] Rx#:[id number] Output: Urine 650 Other: Voiding Method Indwelling Catheter Indwelling Catheter # Bowel Movements 1 1 ABP, PAP, CO, CI - Last Documented Arterial Blood Pressure 158/70 - Labs CBC & Chem 7: 03/31/22 06:03 04/02/22 06:57 Labs: Abnormal Lab Results - Last 24 Hours (Table) 04/02/22 04/02/22 04/02/22 Range/Units 06:57 08:13 12:24 Sodium 131 L (137-145) mmol/L Potassium 3.4 L (3.5-5.1) mmol/L BUN 20 H (7-17) mg/dL Creatinine 0.39 L (0.52-1.04) mg/dL Glucose 117 H (74-99) mg/dL POC Glucose (mg/dL) 135 H 204 H (70-110) mg/dL Calcium 7.0 L (8.4-10.2) mg/dL 04/02/22 04/02/22 Range/Units 18:02 20:45 Sodium (137-145) mmol/L Potassium (3.5-5.1) mmol/L BUN (7-17) mg/dL Creatinine (0.52-1.04) mg/dL Glucose (74-99) mg/dL POC Glucose (mg/dL) 130 H 210 H (70-110) mg/dL Calcium (8.4-10.2) mg/dL Microbiology - Last 24 Hours (Table) 03/26/22 15:00 Blood Culture - Final Blood No Growth after 144 hours
[2022-04-03] MEDS: SODIUM CHLORIDE 0.9% 1,000 ML IV SCH (06:19)
[2022-04-03] MEDS: ACETAMINOPHEN TAB 500 MG TAB PO SCH ×4 (06:20→23:57)
[2022-04-03] MEDS: LEVOTHYROXINE 88 MCG TAB PO SCH (06:23)
[2022-04-03 06:29] LABS: Anisocytosis Slight; HCT 26.8 % (34.0-46.0); HGB 9.5 gm/dL (11.4-16.0); Hypochromasia Slight; MCH 32.6 pg (25.0-35.0); MCHC 35.5 g/dL (31.0-37.0); MCV 91.8 fL (80.0-100.0); Macrocytosis Slight; Mean Platelet Volume 8.9; Platelet Count 158 k/uL (150-450); Poikilocytosis Marked; RBC 2.92 m/uL (3.80-5.40); RDW 19.9 % (11.5-15.5)
[2022-04-03 06:33] LABS: African American GFR (CKD) >90 (>60 ml/min/1.73 sqM); Anion Gap 3 mmol/L; Blood Urea Nitrogen 23 mg/dL (7-17); Calcium 7.1 mg/dL (8.4-10.2); Carbon Dioxide 30 mmol/L (22-30); Chloride 100 mmol/L (98-107); Glucose 111 mg/dL (74-99); Non-African American GFR(CKD) >90 (>60 ml/min/1.73 sqM); Potassium 3.4 mmol/L (3.5-5.1); Sodium 133 mmol/L (137-145)
[2022-04-03] MEDS ORDERED: Potassium Replacement Protocol 1 EACH MISC MISCELLANE PRN (06:52)
--- NOTE | 2022-04-03 06:52 | P.PN ---
Subjective Progress Note Date: 04/03/22 Principal diagnosis: Lumbar spondylosis adjacent segment disease status post L2-L4 posterior fusion with proximal junctional failure neurogenic claudication Patient seen and examined this morning. She is currently resting in bed. Patient states she did not get up at all again yesterday. She states her pain is managed on current regimen. Surgical dressing is CDI, changed this morning. She states she has no acute concerns at this time. Would like to get patient to rehab, hopefully in the next day or two. She denies any fever/chills or chest pain. Objective - Vital Signs Vital signs: Vital Signs Temp 97.6 F 04/03/22 02:00 Pulse 108 H 04/03/22 02:00 Resp 16 04/03/22 02:00 BP 94/55 04/03/22 02:00 Pulse Ox 92 L 04/03/22 02:00 FiO2 35 03/10/22 10:13 Intake & Output 04/02/22 04/02/22 04/03/22 06:59 18:59 06:59 Intake Total 110 Output Total 650 700 Balance 110 -650 -700 Intake: IV 110 Sodium Chloride 0.9% 1, 110 000 ml @ 10 mls/hr IV . Q24H [facility] Rx#:[id number] Output: Urine 650 700 Other: Voiding Method Indwelling Catheter Indwelling Catheter Indwelling Catheter # Bowel Movements 1 1 ABP, PAP, CO, CI - Last Documented Arterial Blood Pressure 158/70 - Exam PHYSICAL EXAMINATION: General: Awake, alert, appropriate for age, in no acute distress. HEENT: No changes Extremities: Skin warm and dry without no acute lesions, coloration, temperature, skin intact, no tenderness or erythema. Integument: Surgical incisions: Dressing changed this morning, Upper portion of incision and lower portion is well healed, sutures have been removed. Mid- portion remains sutured with maceration noted. Warren cath present Palpation: Special findings: mild discomfort with palpation of the right breast area with healing hematoma noted as well as anterior chest wall. VASCULAR STATUS : Wrist Pulses: [2/4 bilateral radial and ulnar] Pedal Pulses: [2/4 bilateral DP and PT] Color: [Normal] Edema: Improved in arms and hands. NEUROLOGIC EXAMINATION: Mental Status: Awake and alert, oriented,but slow with normal attention, concentration and memory, and fluent, she has slow speech Cranial Nerves: I: Olfactory not tested. II: Visual acuity normal, no visual field deficit noted with confrontation. III,IV: Normal pupillary reflexes & intact extraocular movements without nystagmus. V,: Intact symmetrical facial sensation. VII: Intact symmetrical facial motor movement VIII: Hearing intact. IX,X: Intact gag, swallow, & normal voice. XI: Sternocleidomastoid, trapezius function intact. XII: Tongue midline with normal movements. Special Tests: L'hermitte's Sign: Absent Straight Leg Raising: Absent Bilateral Motor Exam (0-5/5, N/T) STRENGTH 4- out of 5 strength in upper extremity's bilaterally all major muscle groups without focal deficits generalized weakness 3 to 5 strength bilateral lower extremities all major muscle groups with generalized weakness no focal deficits. She is weak in her hip flexors currently, bilateral quad muscles are engaging. REFLEXES Upper Extremity: RIGHT [2]/4 LEFT [2]/4 Lower Extremity: RIGHT [2]/4 LEFT [2]/4 Pathological Reflexes Warren's: RIGHT [Absent] LEFT [Absent] Babinski: RIGHT [Absent] LEFT [Absent] Clonus: RIGHT [None] LEFT [None] SENSORY Intact Gait and Functional Evaluation: Sit patient at bedside and increase physical activity as tolerated - Labs CBC & Chem 7: 04/03/22 06:11 04/03/22 06:11 Labs: Abnormal Lab Results - Last 24 Hours (Table) 04/02/22 04/02/22 04/02/22 Range/Units 06:57 08:13 12:24 WBC (3.8-10.6) k/uL RBC (3.80-5.40) m/uL Hgb (11.4-16.0) gm/dL Hct (34.0-46.0) % RDW (11.5-15.5) % Sodium 131 L (137-145) mmol/L Potassium 3.4 L (3.5-5.1) mmol/L BUN 20 H (7-17) mg/dL Creatinine 0.39 L (0.52-1.04) mg/dL Glucose 117 H (74-99) mg/dL POC Glucose (mg/dL) 135 H 204 H (70-110) mg/dL Calcium 7.0 L (8.4-10.2) mg/dL 04/02/22 04/02/22 04/03/22 Range/Units 18:02 20:45 06:11 WBC 14.3 H (3.8-10.6) k/uL RBC 2.92 L (3.80-5.40) m/uL Hgb 9.5 L (11.4-16.0) gm/dL Hct 26.8 L (34.0-46.0) % RDW 19.9 H (11.5-15.5) % Sodium (137-145) mmol/L Potassium (3.5-5.1) mmol/L BUN (7-17) mg/dL Creatinine (0.52-1.04) mg/dL Glucose (74-99) mg/dL POC Glucose (mg/dL) 130 H 210 H (70-110) mg/dL Calcium (8.4-10.2) mg/dL 04/03/22 Range/Units 06:11 WBC (3.8-10.6) k/uL RBC (3.80-5.40) m/uL Hgb (11.4-16.0) gm/dL Hct (34.0-46.0) % RDW (11.5-15.5) % Sodium 133 L (137-145) mmol/L Potassium 3.4 L (3.5-5.1) mmol/L BUN 23 H (7-17) mg/dL Creatinine 0.40 L (0.52-1.04) mg/dL Glucose 111 H (74-99) mg/dL POC Glucose (mg/dL) (70-110) mg/dL Calcium 7.1 L (8.4-10.2) mg/dL Assessment and Plan Assessment: 1. Lumbar spondylosis; adjacent segment disease status post L2-L4 posterior fusion with proximal junctional failure; neurogenic claudication - Postoperative day #38 & 25 status post [id number] decompression and fusion with washout and revision dural repair -ABLA expected outcome of surgery as well as secondary to UGI bleed. Status post 7 units PRBC and 1 pack platelets -bilateral lower extremity weakness, status post multiple controlled falls in-house -Enterobacter sepsis, UTI -status post cardiac arrest Plan: -Appreciate wedding consultant and team management PCC and medicine -Appreciate cardiothoracic, Gen. surgery, nephrology, ID evaluations -Awaiting Consult and recommendations from Wound Care -Continue Activity: Patient to be up in chair for all meals. Encourage to increase physical activity as tolerated. -Cont Abx for duration of stay -Caffiene daily 200 mg daily, Fioricet -Pain control: Adequate today ( Tylenol 1000 mg MEHUL, Oxy IR q6 hrs 10-15 mg titrated to pain (pt been on [place] for 20 yrs), Cont Gabapentin,) -Meds: reviewed -Trend labs -Transfusions to vitals -GI ppx: senna, Miralax -Cont with FBS -DVT PPX: Mechanical -Hygiene: Maintain incision clean and dry. Meticulous cleaning after BMs away from incision site The wound needs to be kept meticulously clean, and dry. -Encourage IS 10x/hr -Anticipate discharge to [facility] in the next 24-48 hours.
[2022-04-03 07:01] LABS: Band Neutrophils % 1 %; Lymphocytes # (M) 0.54 k/uL (1.0-4.8); Monocytes # (M) 0.14 k/uL (0-1.0); Neutrophils % (M) 94 %; Nucleated Red Blood Cells 5 /100 WBC (0-0); Polychromasia Present; Total Cells Counted 200; WBC 13.6 k/uL (3.8-10.6)
[2022-04-03 07:06] LABS: Glucose,Whole Blood 128 mg/dL (70-110)
[2022-04-03] MEDS: INSULIN ASPART (NovoLOG) 100 UNIT/ML VIAL SQ SCH ×4 (08:09→22:06)
[2022-04-03] MEDS: MAGNESIUM OXIDE 400 MG TAB PO SCH (08:54)
[2022-04-03] MEDS: DULoxetine HCL 60 MG CAPSULE.DR PO SCH (08:54)
[2022-04-03] MEDS: LACTULOSE 20 GM/30 ML CUP PO SCH ×3 (08:54→22:19)
[2022-04-03] MEDS: ATORVASTATIN 20 MG TAB PO SCH (08:54)
[2022-04-03] MEDS: FUROSEMIDE 40 MG TAB PO SCH (08:55)
[2022-04-03] MEDS: MIDODRINE 5 MG TAB PO SCH ×3 (08:55→17:58)
[2022-04-03] MEDS: GABAPENTIN 400 MG CAP PO SCH ×3 (08:55→22:14)
[2022-04-03] MEDS: AMIODARONE 200 MG TAB PO SCH (08:55)
[2022-04-03] MEDS: PANTOPRAZOLE 40 MG/10 ML VIAL IVP SCH (08:55)
[2022-04-03] MEDS: SODIUM BICARBONATE TAB 650 MG TAB PO SCH ×2 (08:56→22:13)
[2022-04-03] MEDS: METOPROLOL SUCCINATE (ER) 25 MG TAB.ER.24H PO SCH ×3 (08:56→22:13)
[2022-04-03] MEDS: PIPERACILLIN-TAZOBACTAM 3.375 GM in SODIUM CHLORIDE 0.9% 100 ML IVPB SCH ×3 (08:56→23:57)
[2022-04-03] MEDS: POTASSIUM CHLORIDE ER 20 MEQ TAB.ER PO SCH ×2 (08:56→12:38)
[2022-04-03] MEDS: MAG HYDROX/AL HYDROX/SIMETH 30 ML, diphenhydrAMINE ELIXIR 75 MG, LIDOCAINE VISCOUS 2% 3... PO SCH ×9 (08:59→22:14)
[2022-04-03 11:43] LABS: Glucose,Whole Blood 139 mg/dL (70-110)
--- NOTE | 2022-04-03 15:06 | P.PN ---
Subjective Progress Note Date: 04/03/22 Principal diagnosis: UTI and bacteremia Patient is a 71-year-old female with a past medical history difficult for atrial fibrillation flutter hypertension hyperlipidemia hypothyroidism right breast cancer electively admitted to the hospital more than 2 weeks ago 022 for T10 to lumbar spine revision decompression and posterior lateral interbody fusion, patient did have a episode of hypotension and elevated white count requiring admission to the ICU patient did have a positive UA and gram- negative bacteremia and is scheduled for exploration of the thoracolumbar incision completed on 03/09/2022 with apparently no evidence of any abscess On today's evaluation that is 04/03/2022 the patient remains to be afebrile , the patient is breathing comfortably on room air, the patient denies chest pain mild shortness of breath, the patient did have mild dry cough no nausea no vomiting no significant diarrhea reported by the nursing staff Objective - Vital Signs Vital signs: Vital Signs Temp 97.7 F 04/03/22 12:45 Pulse 114 H 04/03/22 12:45 Resp 18 04/03/22 12:45 BP 100/70 04/03/22 12:45 Pulse Ox 96 04/03/22 12:45 FiO2 35 03/10/22 10:13 Intake & Output 04/02/22 04/03/22 04/03/22 18:59 06:59 18:59 Output Total 650 700 Balance -650 -700 Output: Urine 650 700 Other: Voiding Method Indwelling Catheter Indwelling Catheter Indwelling Catheter # Bowel Movements 1 1 1 ABP, PAP, CO, CI - Last Documented Arterial Blood Pressure 158/70 - Exam GENERAL DESCRIPTION: An elderly female lying in bed in no distress RESPIRATORY SYSTEM: Unlabored breathing , decreased breath sounds at bases HEART: S1 S2 regular rate and rhythm , ABDOMEN: Soft , no tenderness EXTREMITIES: Diffuse swelling bilateral lower extremity - Labs CBC & Chem 7: 04/03/22 06:11 04/03/22 06:11 Labs: Abnormal Lab Results - Last 24 Hours (Table) 04/02/22 04/02/22 04/03/22 Range/Units 18:02 20:45 06:11 WBC 13.6 H (3.8-10.6) k/uL RBC 2.92 L (3.80-5.40) m/uL Hgb 9.5 L (11.4-16.0) gm/dL Hct 26.8 L (34.0-46.0) % RDW 19.9 H (11.5-15.5) % Neutrophils # (Manual) 12.90 H (1.3-7.7) k/uL Lymphocytes # (Manual) 0.54 L (1.0-4.8) k/uL Nucleated RBCs 5 H (0-0) /100 WBC Sodium (137-145) mmol/L Potassium (3.5-5.1) mmol/L BUN (7-17) mg/dL Creatinine (0.52-1.04) mg/dL Glucose (74-99) mg/dL POC Glucose (mg/dL) 130 H 210 H (70-110) mg/dL Calcium (8.4-10.2) mg/dL 04/03/22 04/03/22 04/03/22 Range/Units 06:11 07:04 11:41 WBC (3.8-10.6) k/uL RBC (3.80-5.40) m/uL Hgb (11.4-16.0) gm/dL Hct (34.0-46.0) % RDW (11.5-15.5) % Neutrophils # (Manual) (1.3-7.7) k/uL Lymphocytes # (Manual) (1.0-4.8) k/uL Nucleated RBCs (0-0) /100 WBC Sodium 133 L (137-145) mmol/L Potassium 3.4 L (3.5-5.1) mmol/L BUN 23 H (7-17) mg/dL Creatinine 0.40 L (0.52-1.04) mg/dL Glucose 111 H (74-99) mg/dL POC Glucose (mg/dL) 128 H 139 H (70-110) mg/dL Calcium 7.1 L (8.4-10.2) mg/dL Assessment and Plan (1) Sepsis Current Visit: Yes Status: Acute Code(s): A41.9 - SEPSIS, UNSPECIFIED ORGANISM SNOMED Code(s): 25079147 Plan: 1-patient with diarrhea seemed to have responded to Questran to continue, hold if no bowel movement for 24 hours 2elevated white count and concern for possible maceration of the lower end of the incision cultures obtained per hospitalist which are currently growing enterococcus and Pseudomonas along with anaerobe and Patsy possible colonization however the patient is high risk of infection as per discussion with the spine surgery. 3-patient to continue with empiric Zosyn and monitor clinical course closely Time with Patient: Less than 30
[2022-04-03 17:24] LABS: Glucose,Whole Blood 160 mg/dL (70-110)
--- NOTE | 2022-04-03 18:02 | P.PN ---
Subjective Progress Note Date: 04/03/22 Hospital course: Patient is a 71 yo CF with a hx of A fib s/p ablation, GERD, hypertension, dyslipidemia, and right diaphragmatic paralysis who presented for T10 to Pelvis decompression and fusion with revision. Blood loss and the case was approximately 1900 mL. During her operative course she required phenylephrine IV infusion, Vasopressin IVP. She also received TXA gtt. She received 7 L of lactated Ringer's. She received 1 amp of sodium bicarb intaop. She also received albumin. Her operative course was complicated with a cardiac arrest. During the case she developed A. fib with RVR and then quickly transitioned into bradycardia with a low end-tidal CO2. She received 0.4 of atropine and CPR was started. She received epinephrine 0.5. She achieved ROSC. Total down time was less than 5 minutes. She was extubated on 02/25. She continued to do well with struggled with pain. She was downgraded from ICU on 03/03. On 03/06/22 patient was noted to have a significant drop in hemoglobin from 10.0 down to 7.5 and upon reevaluation on 03/07 was found to have hemoglobin of 5.4, patient required multiple transfusions. She has received a total of 7 units PRBCs and 1 unit of platelets. She underwent a CT abdomen and pelvis and was found to have a large right chest hematoma dilated small bowel concerning for ileus. Patient was evaluated by cardiothoracic surgery and they recommended conservative management. On 03/07, patient was noted to be hypotensive with elevated WBC count of 42.3, with worsening renal function and hyperkalamia. Patient was treated with NS bolus, IV insulin/D50, Albuterol and sodium bicarbonate. She was transferred back to the ICU for septic shock requiring Levophed. Patient was started on Vancomycin and Cefepime. Blood and urine cultures were obtained and positive for Enterobacter. Infectious disease was consulted and patient was continued on Cefepime for treatment of Enterobacter UTI with secondary bacteremia and Vancomycin was discontinued. Patient was later weaned off of vasopressors and again transferred out of the ICU. Patient was started on Lasix for treatment of acute on chronic systolic heart failure with EF of 35-40%. Patient continued on Protonix for GI prophylaxis, amiodarone and metoprolol for atrial fibrillation with RVR sodium bicarb for treatment of metabolic acidosis. Pt's Xarelto remains hold at this time. Patient was evaluated by PMR and is currently not a candidate for inpatient rehab. She has been cleared by orthopedic surgery to start working with physical therapy and current plans are for patient to be discharged to assisted facility for continued rehab. On 03/26/22 patient was again found to have elevating leukocytosis and repeat Wound cultures were obtained and showing no growth to date. Patient's WBC count continued to elevate, surgical wound showing no signs of infection and patient denies having any increased pain or complaints. She denies having any shortness of breath, cough or congestion and has remained afebrile. Worsening leukocytosis possibly secondary to development of atelectasis resulting from extended hospitalization and bedridden time frame or may be reactive secondary to daily steroids with Decadron. We will obtain a chest x-ray for further evaluation and patient again educated and encouraged on use of incentive spirometer. Prelimina ry Wound cultures are positive for gram-negative bacilli, group D enterococcus, and Patsy albicans... Culture results are likely resulting from contamination of the wound from pt's brief. We will await final culture and sensitivity report. Infectious disease broadened antibiotic coverage with Zosyn. Wound to be Open to air and discussed importance of keeping wound clean and dry with RN. Again, postsurgical wound is not showing any signs of infection including erythema, drainage, increased warmth, or foul odor. Nursing staff reported overnight on 03/28/22 patient again developed episodes of melena and at that time Dr. Arce, general surgeon was re-consulted. Upon assessment morning . Patient complaining of left upper and left lower quadrant abdominal pain and new-onset. Stat orders place. CT abdomen and pelvis, unable to use contrast as patient reports ALLERGIC reaction includes rash/hives and hypotension. Due to patient's recurrent episodes of hypotension will err on the side of caution and complete imaging without contrast. CT abdomen and pelvis revealing bilateral hydronephrosis unable to rule out obstructive etiology, concerns for fecal impaction, and persistent previously known right anterior chest wall hematoma. General surgery following and to evaluate concerns of fecal impaction. Warren catheter ordered for insertion and urology consulted for evaluation of bilateral hydronephrosis recommending bilateral hydronephrosis resulting from urinary retention and patient to be discharged to rehab with Warren catheter in place. Physical examination: 04/03/22. Patient seen and fully evaluated at bedside. She reports she was able to sit up on the edge of the bed for the first time today with therapy. In addition patient reports having continued "good" bowel movement and has slightly increased her appetite. Morning labs reviewed. CBC revealing Leukocytosis and anemia improving with WBCs 13.6 and hemoglobin of 9.5. BMP revealing continued improvement of hyponatremia with sodium of 133. Potassium was low this morning at 3.4 and replaced. Renal function stable. Medically, patient is stable for discharge to rehab awaiting insurance authorization for placement. General: ill appearing, no acute distress, appears at stated age, Derm: warm, dry. Postsurgical dressing clean, dry, and intact this morning. Head: atraumatic, normocephalic, symmetric Eyes: EOMI, no lid lag, anicteric sclera Mouth: no lip lesion, dry membranes moist Cardiovascular: S1S2 irregular, no murmur Lungs: Respirations even, regular, and unlabored on room air. Lungs clear to auscultation bilaterally Ext: no gross muscle atrophy, no edema, no contractures Abd: Warren catheter in place. Obese. Non tender to palpation. Neuro: Moving all 4 extremities independently, sensation and movement equal and intact in bilateral lower extremities. Patient continues with equal Bilateral lower extremity weakness, likely secondary to bedridden state for the past 35 days. Psych: Alert, oriented, appropriate affect Assessment and plan of care: Septic shock resulting from Enterobacter cloacae UTI with secondary bacteremia Status post Cardiac arrest with ROSC Enterobacter cloacae UTI with secondary bacteremia Lactic acidosis Leukocytosis -Patient was successfully weaned off mechanical ventilation and pressors and transferred out of ICU. -Blood cultures + Enterobacter cloacae. Repeat blood cultures negative on 03/07/22 and 03/26/22. -Urine culture + Enterobacter cloacae. Patient completed course of antibiotics with cefepime. -Wound cultures 03/26/22 are positive for pseudomonas aeruginosa, enterococcus fasciculus, and Patsy albicans. Continue with Zosyn and per positivity report as recommended by infectious disease as this may be contamination/colonization however patient is a high risk of infection so we will continue with empiric antibiotic therapy. -Pulmonology/recreation center director cleared patient from their perspective on 03/22/22 -Infectious disease following and to monitor outpatient IV antibiotics Left upper and lower quadrant abdominal pain Fecal impaction, clinically resolved -CT abdomen and pelvis concerning for possible fecal impaction. -Gen. surgery was consulted for reevaluation and starting patient on lactulose. Bilateral hydronephrosis, likely secondary to urinary retention -CT abdomen and pelvis revealing bilateral hydronephrosis unable to rule out obstructive etiology. -Renal function stable with the exception of mildly elevated BUN at 24 and cr eatinine of 0.41. Documented urine output over the past 24 hours 1350 mL. -Urology following, recommending continuation of Warren catheter Acute on Chronic Systolic CHF -Echo shows EF 35-40% with severe pulmonary HTN, moderate MR. -Cardiology following -Continue amiodarone, metoprolol, and furosemide -Patient initially started on Aldactone but was discontinued secondary to hyperkalemia -Continue close monitoring of I's and O's Prerenal azotemia, improving Hyponatremia, improving -Na 132, BUN 24. -Nephrology following. Prediabetes with hyperglycemia, now hypoglycemia -Likely steroid induced -A1c is 6 -Levimir discontinued due to episodes of hypoglycemia after discontinuation of steroids -Continue with sliding scale Acute blood loss anemia, hemoglobin stable. Right breast hematoma GI bleed, ischemic bowel ruled out. -Status post a total of 7 units PRBCs and 1 unit of platelets. -Gen. surgery following anticipation for EGD which revealed gastritis and mild esophagitis with no active bleeding. -Xarelto remains on hold at this time. -CT surgery recommends conservative managment of hematoma. -Monitor hemoglobin and Transfuse as needed if Hgb < 7. Atrial fibrillation with persistent RVR -Xarelto remains on hold secondary to GI bleed. -Continue Amiodarone and Metoprolol. -Cardiology following and on 03/24/22 cleared patient from cardiac standpoint for discharge. Hyperkalemia, resolved after discontinuation of Aldactone and lisinopril Metabolic acidosis, resolved -Continue sodium bicarb 650 mg twice a day -Aldactone and lisinopril discontinued. -Nephrology is following. T10 to pelvis decompression with fusion Post-op pain -Management per primary admitting Orthopedic surgery team including DVT prophylaxis, pain management, wound/dressing care, weightbearing, and PT/OT . -Continue Gabapentin, Valium, Flexeril. -Decadron discontinued on 03/28/22 -PT/OT following. -Plan is for discharge to [facility] for rehab Right diaphragmatic paralysis -Pulmonology following and cleared patient from their perspective on 03/22/22 Hyperlipidemia -Continue daily medication regimen with atorvastatin. Hypertension -Monitor vital signs and continue daily medication regimen with metoprolol and amiodarone. -Lisinopril and Aldactone was discontinued secondary to hyperkalemia. Transaminitis Obstructive LFTs. -Likely ischemic hepatitis. -Resolved Thank you for allowing us to participate in the care of this pleasant patient. Do not hesitate to contact us with questions. Someone can be reached from the [facility] hospitalist group all hours of the day at [phone] or via [employer]. I reviewed the documentation as provided by the BRAEDEN above, who is the original author of this note. I agree with the documented assessment and plan, with the following changes: none Objective - Vital Signs Vital signs: Vital Signs Temp 98.8 F 04/03/22 07:05 Pulse 112 H 04/03/22 07:05 Resp 18 04/03/22 07:05 BP 127/83 04/03/22 07:05 Pulse Ox 93 L 04/03/22 07:05 FiO2 35 03/10/22 10:13 Intake & Output 04/02/22 04/03/22 04/03/22 18:59 06:59 18:59 Output Total 650 700 Balance -650 -700 Output: Urine 650 700 Other: Voiding Method Indwelling Catheter Indwelling Catheter # Bowel Movements 1 1 1 ABP, PAP, CO, CI - Last Documented Arterial Blood Pressure 158/70 - Labs CBC & Chem 7: 04/09/22 08:30 04/09/22 06:00 Labs: Abnormal Lab Results - Last 24 Hours (Table) 04/02/22 04/02/22 04/02/22 Range/Units 12:24 18:02 20:45 WBC (3.8-10.6) k/uL RBC (3.80-5.40) m/uL Hgb (11.4-16.0) gm/dL Hct (34.0-46.0) % RDW (11.5-15.5) % Neutrophils # (Manual) (1.3-7.7) k/uL Lymphocytes # (Manual) (1.0-4.8) k/uL Nucleated RBCs (0-0) /100 WBC Sodium (137-145) mmol/L Potassium (3.5-5.1) mmol/L BUN (7-17) mg/dL Creatinine (0.52-1.04) mg/dL Glucose (74-99) mg/dL POC Glucose (mg/dL) 204 H 130 H 210 H (70-110) mg/dL Calcium (8.4-10.2) mg/dL 04/03/22 04/03/22 04/03/22 Range/Units 06:11 06:11 07:04 WBC 13.6 H (3.8-10.6) k/uL RBC 2.92 L (3.80-5.40) m/uL Hgb 9.5 L (11.4-16.0) gm/dL Hct 26.8 L (34.0-46.0) % RDW 19.9 H (11.5-15.5) % Neutrophils # (Manual) 12.90 H (1.3-7.7) k/uL Lymphocytes # (Manual) 0.54 L (1.0-4.8) k/uL Nucleated RBCs 5 H (0-0) /100 WBC Sodium 133 L (137-145) mmol/L Potassium 3.4 L (3.5-5.1) mmol/L BUN 23 H (7-17) mg/dL Creatinine 0.40 L (0.52-1.04) mg/dL Glucose 111 H (74-99) mg/dL POC Glucose (mg/dL) 128 H (70-110) mg/dL Calcium 7.1 L (8.4-10.2) mg/dL
[2022-04-03 20:17] LABS: Glucose,Whole Blood 133 mg/dL (70-110)
--- NOTE | 2022-04-03 21:34 | P.PN ---
Subjective Progress Note Date: 04/03/22 Patient reports improvement of right upper quadrant abdominal pain. No further signs of bleeding. She is stable from a general surgical standpoint. Objective - Vital Signs Vital signs: Vital Signs Temp 98.0 F 04/03/22 20:00 Pulse 112 H 04/03/22 20:00 Resp 16 04/03/22 20:00 BP 96/55 04/03/22 20:00 Pulse Ox 93 L 04/03/22 20:00 FiO2 35 03/10/22 10:13 Intake & Output 04/03/22 04/03/22 04/04/22 06:59 18:59 06:59 Output Total 700 900 Balance -700 -900 Output: Urine 700 900 Other: Voiding Method Indwelling Catheter Indwelling Catheter # Bowel Movements 1 1 ABP, PAP, CO, CI - Last Documented Arterial Blood Pressure 158/70 - Labs CBC & Chem 7: 04/03/22 06:11 04/03/22 06:11 Labs: Abnormal Lab Results - Last 24 Hours (Table) 04/03/22 04/03/22 04/03/22 Range/Units 06:11 06:11 07:04 WBC 13.6 H (3.8-10.6) k/uL RBC 2.92 L (3.80-5.40) m/uL Hgb 9.5 L (11.4-16.0) gm/dL Hct 26.8 L (34.0-46.0) % RDW 19.9 H (11.5-15.5) % Neutrophils # (Manual) 12.90 H (1.3-7.7) k/uL Lymphocytes # (Manual) 0.54 L (1.0-4.8) k/uL Nucleated RBCs 5 H (0-0) /100 WBC Sodium 133 L (137-145) mmol/L Potassium 3.4 L (3.5-5.1) mmol/L BUN 23 H (7-17) mg/dL Creatinine 0.40 L (0.52-1.04) mg/dL Glucose 111 H (74-99) mg/dL POC Glucose (mg/dL) 128 H (70-110) mg/dL Calcium 7.1 L (8.4-10.2) mg/dL 01/02/23 01/02/23 01/02/23 Range/Units 11:41 17:23 20:16 WBC (3.8-10.6) k/uL RBC (3.80-5.40) m/uL Hgb (11.4-16.0) gm/dL Hct (34.0-46.0) % RDW (11.5-15.5) % Neutrophils # (Manual) (1.3-7.7) k/uL Lymphocytes # (Manual) (1.0-4.8) k/uL Nucleated RBCs (0-0) /100 WBC Sodium (137-145) mmol/L Potassium (3.5-5.1) mmol/L BUN (7-17) mg/dL Creatinine (0.52-1.04) mg/dL Glucose (74-99) mg/dL POC Glucose (mg/dL) 139 H 160 H 133 H (70-110) mg/dL Calcium (8.4-10.2) mg/dL
[2022-04-03] MEDS: HYDROcodone/APAP 10-325MG 1 EACH TAB PO PRN (22:14)
[2022-04-04] MEDS ORDERED: IPRATROPIUM 0.5 MG/2.5 ML NEBU INHALATION STA (01:46)
--- NOTE | 2022-04-04 02:27 | XR ---
EXAMINATION TYPE: XR chest 1V portable DATE OF EXAM: 04/04/2022 COMPARISON: 03/28/2022 HISTORY: Short of breath TECHNIQUE: FINDINGS: Heart is enlarged. There is mild coarsening of interstitial markings. There are chest leads . There is left-sided central venous catheter with tip in the superior vena cava. No pleural effusion . IMPRESSION: Increased interstitial markings compared to old exam. No obvious heart failure.
[2022-04-04 03:34] LABS: Anisocytosis Moderate; HCT 24.8 % (34.0-46.0); HGB 8.5 gm/dL (11.4-16.0); Hypochromasia Slight; MCH 31.8 pg (25.0-35.0); MCHC 34.4 g/dL (31.0-37.0); MCV 92.5 fL (80.0-100.0); Macrocytosis Slight; Mean Platelet Volume 9.4; Platelet Count 145 k/uL (150-450); Poikilocytosis Marked; RBC 2.68 m/uL (3.80-5.40); RDW 20.7 % (11.5-15.5); WBC 15.6 k/uL (3.8-10.6)
[2022-04-04 03:50] LABS: African American GFR (CKD) >90 (>60 ml/min/1.73 sqM); Anion Gap 2 mmol/L; Blood Urea Nitrogen 28 mg/dL (7-17); Calcium 7.3 mg/dL (8.4-10.2); Carbon Dioxide 33 mmol/L (22-30); Chloride 100 mmol/L (98-107); Glucose 108 mg/dL (74-99); Non-African American GFR(CKD) >90 (>60 ml/min/1.73 sqM); Potassium 3.5 mmol/L (3.5-5.1); Sodium 135 mmol/L (137-145)
[2022-04-04] MEDS: SODIUM CHLORIDE 0.9% 1,000 ML IV SCH ×2 (04:47→10:42)
[2022-04-04] MEDS ORDERED: DEXTROSE 5% IN WATER 100 ML with AMIODARONE 150 MG IV ONE (05:00)
[2022-04-04] MEDS ORDERED: AMIODARONE 360 MG in DEXTROSE 5% IN WATER 200 ML IV ONE ×2 (05:15)
[2022-04-04 05:34] LABS: Glucose,Whole Blood 148 mg/dL (70-110)
[2022-04-04] MEDS: ACETAMINOPHEN TAB 500 MG TAB PO SCH ×3 (05:45→17:10)
[2022-04-04] MEDS: POTASSIUM CHLORIDE ER 20 MEQ TAB.ER PO SCH ×2 (06:49→09:49)
[2022-04-04] MEDS: LEVOTHYROXINE 88 MCG TAB PO SCH (06:49)
[2022-04-04] MEDS: MIDODRINE 5 MG TAB PO SCH ×3 (06:50→17:10)
[2022-04-04 06:52] LABS: Glucose,Whole Blood 184 mg/dL (70-110)
[2022-04-04] MEDS: INSULIN ASPART (NovoLOG) 100 UNIT/ML VIAL SQ SCH ×4 (06:52→20:36)
--- NOTE | 2022-04-04 07:41 | P.PN ---
Subjective Progress Note Date: 04/04/22 Principal diagnosis: Lumbar spondylosis adjacent segment disease status post L2-L4 posterior fusion with proximal junctional failure neurogenic claudication Patient seen and examined this morning. Patient was transferred to [address], currently in ICU awaiting available bed. Speaking with the ICU nurse she states patient's heart rate became elevated and not controlled with her medications. She also states that patient had a bowel movement with a large blood clot presen t. Patient's hemoglobin had dropped from 9.5 yesterday 04/03/22 to 8.5 today 04/04/22. Patient states that she is short of breath at times and is currently on 2 L nasal cannula. She reports that she is having pain and mid back, and that it is controlled with medication. Surgical dressing is CDI. She denies any fever/chills, nausea/vomiting or chest pain. Objective - Vital Signs Vital signs: Vital Signs Temp 97.7 F 04/04/22 05:29 Pulse 114 H 04/04/22 07:00 Resp 16 04/04/22 07:00 BP 106/69 04/04/22 07:00 Pulse Ox 97 04/04/22 07:00 FiO2 2 04/04/22 05:29 Intake & Output 04/03/22 04/04/22 04/04/22 18:59 06:59 18:59 Intake Total 540 Output Total 900 175 Balance -900 365 Intake: Oral 540 Output: Urine 900 175 Other: Voiding Method Indwelling Catheter Indwelling Catheter # Bowel Movements 1 1 ABP, PAP, CO, CI - Last Documented Arterial Blood Pressure 158/70 - Exam PHYSICAL EXAMINATION: General: Awake, alert, appropriate for age, in no acute distress. HEENT: No changes Extremities: Skin warm and dry without no acute lesions, coloration, temperature, skin intact, no tenderness or erythema. Integument: Surgical incisions: Dressing CDI, Upper portion of incision and lower portion is well healed, sutures have been removed. Mid- portion remains sutured with maceration noted. Warren cath present Palpation: Special findings: mild discomfort with palpation of the right breast area with healing hematoma noted as well as anterior chest wall. VASCULAR STATUS : Wrist Pulses: [2/4 bilateral radial and ulnar] Pedal Pulses: [2/4 bilateral DP and PT] Color: [Normal] Edema: Improved in arms and hands. NEUROLOGIC EXAMINATION: Mental Status: Awake and alert, oriented,but slow with normal attention, concentration and memory, and fluent, she has slow speech Cranial Nerves: I: Olfactory not tested. II: Visual acuity normal, no visual field deficit noted with confrontation. III,IV: Normal pupillary reflexes & intact extraocular movements without nystagmus. V,: Intact symmetrical facial sensation. VII: Intact symmetrical facial motor movement VIII: Hearing intact. IX,X: Intact gag, swallow, & normal voice. XI: Sternocleidomastoid, trapezius function intact. XII: Tongue midline with normal movements. Special Tests: L'hermitte's Sign: Absent Straight Leg Raising: Absent Bilateral Motor Exam (0-5/5, N/T) STRENGTH 4- out of 5 strength in upper extremity's bilaterally all major muscle groups without focal deficits generalized weakness 3 to 5 strength bilateral lower extremities all major muscle groups with gener alized weakness no focal deficits. She is weak in her hip flexors currently, bilateral quad muscles are engaging. REFLEXES Upper Extremity: RIGHT [2]/4 LEFT [2]/4 Lower Extremity: RIGHT [2]/4 LEFT [2]/4 Pathological Reflexes Warren's: RIGHT [Absent] LEFT [Absent] Babinski: RIGHT [Absent] LEFT [Absent] Clonus: RIGHT [None] LEFT [None] SENSORY Intact Gait and Functional Evaluation: Sit patient at bedside and increase physical activity as tolerated - Labs CBC & Chem 7: 04/04/22 03:13 04/04/22 03:13 Labs: Abnormal Lab Results - Last 24 Hours (Table) 04/03/22 04/03/22 04/03/22 Range/Units 11:41 17:23 20:16 WBC (3.8-10.6) k/uL RBC (3.80-5.40) m/uL Hgb (11.4-16.0) gm/dL Hct (34.0-46.0) % RDW (11.5-15.5) % Plt Count (150-450) k/uL Sodium (137-145) mmol/L Carbon Dioxide (22-30) mmol/L BUN (7-17) mg/dL Glucose (74-99) mg/dL POC Glucose (mg/dL) 139 H 160 H 133 H (70-110) mg/dL Calcium (8.4-10.2) mg/dL Troponin I (0.000-0.034) ng/mL 04/04/22 04/04/22 04/04/22 Range/Units 00:26 03:13 03:13 WBC 15.6 H (3.8-10.6) k/uL RBC 2.68 L (3.80-5.40) m/uL Hgb 8.5 L (11.4-16.0) gm/dL Hct 24.8 L (34.0-46.0) % RDW 20.7 H (11.5-15.5) % Plt Count 145 L (150-450) k/uL Sodium 135 L (137-145) mmol/L Carbon Dioxide 33 H (22-30) mmol/L BUN 28 H (7-17) mg/dL Glucose 108 H (74-99) mg/dL POC Glucose (mg/dL) (70-110) mg/dL Calcium 7.3 L (8.4-10.2) mg/dL Troponin I 0.035 H* (0.000-0.034) ng/mL 04/04/22 04/04/22 Range/Units 05:31 06:51 WBC (3.8-10.6) k/uL RBC (3.80-5.40) m/uL Hgb (11.4-16.0) gm/dL Hct (34.0-46.0) % RDW (11.5-15.5) % Plt Count (150-450) k/uL Sodium (137-145) mmol/L Carbon Dioxide (22-30) mmol/L BUN (7-17) mg/dL Glucose (74-99) mg/dL POC Glucose (mg/dL) 148 H 184 H (70-110) mg/dL Calcium (8.4-10.2) mg/dL Troponin I (0.000-0.034) ng/mL Assessment and Plan Assessment: 1. Lumbar spondylosis; adjacent segment disease status post L2-L4 posterior fusion with proximal junctional failure; neurogenic claudication - Postoperative day #39 & 26 status post [id number] decompression and fusion with washout and revision dural repair -ABLA expected outcome of surgery as well as secondary to UGI bleed. Status post 7 units PRBC and 1 pack platelets -bilateral lower extremity weakness, status post multiple controlled falls in- house -Enterobacter sepsis, UTI -status post cardiac arrest Plan: -Appreciate hearing aid consultant and team management PCC and medicine -Appreciate cardiothoracic, Gen. surgery, nephrology, ID evaluations -Awaiting Consult and recommendations from Wound Care -Continue Activity: Patient to be up in chair for all meals. Encourage to increase physical activity as tolerated. -Cont Abx for duration of stay -Caffiene daily 200 mg daily, Fioricet -Pain control: Adequate today ( Tylenol 1000 mg MEHUL, Oxy IR q6 hrs 10-15 mg titrated to pain (pt been on [place] for 20 yrs), Cont Gabapentin,) -Meds: reviewed -Trend labs -Transfusions to vitals -GI ppx: senna, Miralax -Cont with FBS -DVT PPX: Mechanical -Hygiene: Maintain incision clean and dry. Meticulous cleaning after BMs away from incision site The wound needs to be kept meticulously clean, and dry. -Encourage IS 10x/hr -Anticipate discharge to [facility] in the next 48 hours.
[2022-04-04] MEDS: AMIODARONE 200 MG TAB PO SCH (08:25)
[2022-04-04 09:15] LABS: Anisocytosis Moderate; HCT 24.7 % (34.0-46.0); HGB 8.4 gm/dL (11.4-16.0); Hyperchromasia Slight; Hypochromasia Slight; MCH 31.3 pg (25.0-35.0); MCHC 33.8 g/dL (31.0-37.0); MCV 92.7 fL (80.0-100.0); Macrocytosis Slight; Mean Platelet Volume 9.3; Platelet Count 141 k/uL (150-450); Poikilocytosis Marked; RBC 2.67 m/uL (3.80-5.40); RDW 21.4 % (11.5-15.5); WBC 20.1 k/uL (3.8-10.6)
--- NOTE | 2022-04-04 09:29 | P.PN ---
Subjective Progress Note Date: 04/04/22 The patient is a 71-year-old female currently admitted to the hospital after undergoing lumbar surgery on February 24 for severe stenosis, mechanical low back pain, and neurogenic claudication. Postoperative complications include atrial fibrillation/atrial flutter and GI bleeding. The patient was recently transferred back to the ICU for continued bleeding and elevated heart rates. Patient was interviewed lying in bed. Arouses to physical stimuli. GENERAL: Ill-appearing, well-nourished and in no acute distress. NECK: Supple without JVD or thyromegaly. LUNGS: Breath sounds clear to auscultation bilaterally. Respiration equal and unlabored. No wheezes, rales or rhonchi. HEART: Regular rate and rhythm without murmurs, rubs or gallops. S1 and S2 heard. Notably tachycardic. EXTREMITIES: Normal range of motion, no edema. No clubbing or cyanosis. Peripheral pulses intact and strong. VITALS: Heart rate 114, blood pressure 106/69, respiratory rate 16 TELEMETRY: Atrial tachycardia with RVR LABS: WBC 20.1, hemoglobin 8.4, platelet 141, sodium 135, potassium 3.5, BUN 28, creatinine 0.60, troponin 0.03 IMPRESSION: Atrial tachycardia, 2-1 conduction Cardiomyopathy of unknown etiology Status post back surgery Postoperative GI bleeding Morbid obesity Hypertension Dyslipidemia History of atrial flutter status post ablation PLAN: Continue amiodarone drip Resume by mouth medication once completed Discontinue metoprolol succinate and start metoprolol tartrate 3 times a day to avoid hypotension Further recommendations will be based on clinical course I am dictating on behalf of Dr Preet Leger's history/physical and assessment/plan. Objective - Vital Signs Vital signs: Vital Signs Temp 97.7 F 04/04/22 05:29 Pulse 114 H 04/04/22 07:00 Resp 16 04/04/22 07:00 BP 106/69 04/04/22 07:00 Pulse Ox 97 04/04/22 07:00 FiO2 2 04/04/22 05:29 Intake & Output 04/03/22 04/04/22 04/04/22 18:59 06:59 18:59 Intake Total 540 Output Total 900 175 Balance -900 365 Intake: Oral 540 Output: Urine 900 175 Other: Voiding Method Indwelling Catheter Indwelling Catheter # Bowel Movements 1 1 ABP, PAP, CO, CI - Last Documented Arterial Blood Pressure 158/70 - Labs CBC & Chem 7: 04/04/22 08:59 04/04/22 03:13 Labs: Abnormal Lab Results - Last 24 Hours (Table) 04/03/22 04/03/22 04/03/22 Range/Units 11:41 17:23 20:16 WBC (3.8-10.6) k/uL RBC (3.80-5.40) m/uL Hgb (11.4-16.0) gm/dL Hct (34.0-46.0) % RDW (11.5-15.5) % Plt Count (150-450) k/uL Sodium (137-145) mmol/L Carbon Dioxide (22-30) mmol/L BUN (7-17) mg/dL Glucose (74-99) mg/dL POC Glucose (mg/dL) 139 H 160 H 133 H (70-110) mg/dL Calcium (8.4-10.2) mg/dL Troponin I (0.000-0.034) ng/mL 04/04/22 04/04/22 04/04/22 Range/Units 00:26 03:13 03:13 WBC 15.6 H (3.8-10.6) k/uL RBC 2.68 L (3.80-5.40) m/uL Hgb 8.5 L (11.4-16.0) gm/dL Hct 24.8 L (34.0-46.0) % RDW 20.7 H (11.5-15.5) % Plt Count 145 L (150-450) k/uL Sodium 135 L (137-145) mmol/L Carbon Dioxide 33 H (22-30) mmol/L BUN 28 H (7-17) mg/dL Glucose 108 H (74-99) mg/dL POC Glucose (mg/dL) (70-110) mg/dL Calcium 7.3 L (8.4-10.2) mg/dL Troponin I 0.035 H* (0.000-0.034) ng/mL 04/04/22 04/04/22 04/04/22 Range/Units 05:31 06:51 08:59 WBC 20.1 H (3.8-10.6) k/uL RBC 2.67 L (3.80-5.40) m/uL Hgb 8.4 L (11.4-16.0) gm/dL Hct 24.7 L (34.0-46.0) % RDW 21.4 H (11.5-15.5) % Plt Count 141 L (150-450) k/uL Sodium (137-145) mmol/L Carbon Dioxide (22-30) mmol/L BUN (7-17) mg/dL Glucose (74-99) mg/dL POC Glucose (mg/dL) 148 H 184 H (70-110) mg/dL Calcium (8.4-10.2) mg/dL Troponin I (0.000-0.034) ng/mL
[2022-04-04] MEDS: GABAPENTIN 400 MG CAP PO SCH ×3 (09:49→22:03)
[2022-04-04] MEDS: SODIUM BICARBONATE TAB 650 MG TAB PO SCH ×2 (09:49→20:35)
[2022-04-04] MEDS: FUROSEMIDE 40 MG TAB PO SCH (09:49)
[2022-04-04] MEDS: PIPERACILLIN-TAZOBACTAM 3.375 GM in SODIUM CHLORIDE 0.9% 100 ML IVPB SCH ×2 (09:49→15:37)
[2022-04-04] MEDS: DULoxetine HCL 60 MG CAPSULE.DR PO SCH (09:49)
[2022-04-04] MEDS: PANTOPRAZOLE 40 MG/10 ML VIAL IVP SCH ×2 (09:49→20:36)
[2022-04-04] MEDS: ATORVASTATIN 20 MG TAB PO SCH (09:50)
[2022-04-04] MEDS: METOPROLOL TARTRATE 25 MG TAB PO SCH ×3 (09:50→22:03)
[2022-04-04] MEDS: LACTULOSE 20 GM/30 ML CUP PO SCH ×2 (09:50→20:24)
[2022-04-04] MEDS: MAGNESIUM OXIDE 400 MG TAB PO SCH (09:50)
[2022-04-04] MEDS: MAG HYDROX/AL HYDROX/SIMETH 30 ML, diphenhydrAMINE ELIXIR 75 MG, LIDOCAINE VISCOUS 2% 3... PO SCH ×12 (09:51→22:04)
[2022-04-04 10:53] LABS: Appearance,Urine Cloudy (Clear); Bilirubin,Urine Negative (Negative); Blood,Urine Negative (Negative); Budding Yeast,Urine Many /hpf; Color,Urine Yellow; Glucose,Urine (UA) Negative (Negative); Hyphae Yeast, Urine Occasional /hpf; Ketones,Urine Negative (Negative); Leukocyte Esterase,Urine Large (Negative); Mucus,Urine Rare /hpf; Nitrite,Urine Negative (Negative); PH, Urine 5.5 (5.0-8.0); Protein,Urine 1+ (Negative); RBC,Urine 12 /hpf (0-5); Specific Gravity,Urine 1.037 (1.001-1.035); Squamous Epithelial Cell,Urine 2 /hpf (0-4); WBC,Urine 87 /hpf (0-5)
[2022-04-04] MEDS: AMIODARONE 450 MG in DEXTROSE 5% IN WATER 250 ML IV SCH ×2 (11:19)
[2022-04-04 11:23] LABS: Glucose,Whole Blood 139 mg/dL (70-110)
[2022-04-04] MEDS: HYDROcodone/APAP 10-325MG 1 EACH TAB PO PRN ×2 (12:04→20:35)
--- NOTE | 2022-04-04 13:09 | P.PN ---
Subjective Progress Note Date: 04/04/22 CHIEF COMPLAINT: Spinal surgery HISTORY OF PRESENT ILLNESS: Surgical service following regards to GI bleed. Patient required a transfer to the cardiac floor. She is currently in the ICU as a select care overflow due to there being no beds. She did have 2 bloody bowel movements this morning. They did have blood clots. Hemoglobin did drop from 9.5-8.5. Repeat hemoglobin was 8.4. Patient hasn't reports decreased oral intake. She has been tachycardic. Blood pressures been on the lower side. She is more lethargic today. Patient did report some right upper quadrant abdominal pain. She does have a prior history of cholecystectomy. PHYSICAL EXAM: VITAL SIGNS: Reviewed. GENERAL: Well-developed in no acute distress. HEENT: No sclera icterus. Extraocular movements grossly intact. Moist buccal mucosa. Head is atraumatic, normocephalic. ABDOMEN: Soft. Obese. Nondistended. Right upper quadrant pain NEUROLOGIC: Alert and oriented. Cranial nerves II through XII grossly intact. ASSESSMENT: 1. Acute GI bleed 2. Fecal impaction 3. Lumbar decompression/fusion and then with washout and dural repair 4. Cardiac arrest 5. EGD on 03/19/2022 that showed mild gastritis and esophagitis no active bleeding PLAN: -Continue to monitor hemoglobin -Continue monitoring for any signs or symptoms of bleeding -Continue PPI -Continue to hold anticoagulation -Start normal saline at 50 mL an hour -Further recommendations forthcoming per surgeon regarding endoscopies Physician Soakers Supervisor note has been reviewed by physician. Signing provider agrees with the documented findings, assessment, and plan of care. I have personally seen and examined the patient, reviewed the FIRST ASSISTANT /PAs history, exam and MDM and agree with the assessment and plan as written. Based on total visit time, I have performed more than 50% of the visit. As above: Patient with bloody stools once again. Earlier today she had some dripping of blood noticed by the nursing staff followed by a soft brown stool. Rectal examination performed at the bedside reveals a posterior anal fissure with some minimal oozing of blood seen. The rectal vault is filled with soft formed stool. Some of this was disimpacted manually. Discussed options with the patient's son Tiffanie and the patient herself. Either further enemas or cathartics required to try to clear some of the rectal stool burden. Will begin magnesium citrate. If this is unavailable will utilize GoLYTELY. We'll reorder enemas if this is unsuccessful. Objective - Vital Signs Vital signs: Vital Signs Temp 97.1 F L 04/04/22 12:00 Pulse 110 H 04/04/22 12:00 Resp 18 04/04/22 12:00 BP 101/63 04/04/22 12:00 Pulse Ox 97 04/04/22 12:00 FiO2 2 04/04/22 05:29 Intake & Output 04/03/22 04/04/22 04/04/22 18:59 06:59 18:59 Intake Total 540 100 Output Total 900 175 110 Balance -900 365 -10 Weight 127.2 kg Intake: IV 100 Piperacillin-Tazobactam 3 100 .375 gm In Sodium Chloride 0.9% 100 ml @ 25 mls/hr IVPB Q8HR [facility] Rx# :[id number] Oral 540 Output: Urine 900 175 110 Other: Voiding Method Indwelling Catheter Indwelling Catheter Indwelling Catheter # Bowel Movements 1 1 2 ABP, PAP, CO, CI - Last Documented Arterial Blood Pressure 158/70 - Labs CBC & Chem 7: 04/04/22 13:53 04/04/22 03:13 Labs: Abnormal Lab Results - Last 24 Hours (Table) 04/03/22 04/03/22 04/04/22 Range/Units 17:23 20:16 00:26 WBC (3.8-10.6) k/uL RBC (3.80-5.40) m/uL Hgb (11.4-16.0) gm/dL Hct (34.0-46.0) % RDW (11.5-15.5) % Plt Count (150-450) k/uL Sodium (137-145) mmol/L Carbon Dioxide (22-30) mmol/L BUN (7-17) mg/dL Glucose (74-99) mg/dL POC Glucose (mg/dL) 160 H 133 H (70-110) mg/dL Calcium (8.4-10.2) mg/dL Troponin I 0.035 H* (0.000-0.034) ng/mL Urine Appearance (Clear) Ur Specific [place] (1.001-1.035) Urine Protein (Negative) Ur Leukocyte Esterase (Negative) Urine RBC (0-5) /hpf Urine WBC (0-5) /hpf Urine WBC Clumps (None) /hpf Urine Mucus (None) /hpf Urine Yeast (Budding) (None) /hpf 04/04/22 04/04/22 04/04/22 Range/Units 03:13 03:13 05:31 WBC 15.6 H (3.8-10.6) k/uL RBC 2.68 L (3.80-5.40) m/uL Hgb 8.5 L (11.4-16.0) gm/dL Hct 24.8 L (34.0-46.0) % RDW 20.7 H (11.5-15.5) % Plt Count 145 L (150-450) k/uL Sodium 135 L (137-145) mmol/L Carbon Dioxide 33 H (22-30) mmol/L BUN 28 H (7-17) mg/dL Glucose 108 H (74-99) mg/dL POC Glucose (mg/dL) 148 H (70-110) mg/dL Calcium 7.3 L (8.4-10.2) mg/dL Troponin I (0.000-0.034) ng/mL Urine Appearance (Clear) Ur Specific [place] (1.001-1.035) Urine Protein (Negative) Ur Leukocyte Esterase (Negative) Urine RBC (0-5) /hpf Urine WBC (0-5) /hpf Urine WBC Clumps (None) /hpf Urine Mucus (None) /hpf Urine Yeast (Budding) (None) /hpf 04/04/22 04/04/22 04/04/22 Range/Units 06:51 08:59 09:25 WBC 20.1 H (3.8-10.6) k/uL RBC 2.67 L (3.80-5.40) m/uL Hgb 8.4 L (11.4-16.0) gm/dL Hct 24.7 L (34.0-46.0) % RDW 21.4 H (11.5-15.5) % Plt Count 141 L (150-450) k/uL Sodium (137-145) mmol/L Carbon Dioxide (22-30) mmol/L BUN (7-17) mg/dL Glucose (74-99) mg/dL POC Glucose (mg/dL) 184 H (70-110) mg/dL Calcium (8.4-10.2) mg/dL Troponin I (0.000-0.034) ng/mL Urine Appearance Cloudy H (Clear) Ur Specific [place] 1.037 H (1.001-1.035) Urine Protein 1+ H (Negative) Ur Leukocyte Esterase Large H (Negative) Urine RBC 12 H (0-5) /hpf Urine WBC 87 H (0-5) /hpf Urine WBC Clumps Occasional H (None) /hpf Urine Mucus Rare H (None) /hpf Urine Yeast (Budding) Many H (None) /hpf 04/04/22 Range/Units 11:22 WBC (3.8-10.6) k/uL RBC (3.80-5.40) m/uL Hgb (11.4-16.0) gm/dL Hct (34.0-46.0) % RDW (11.5-15.5) % Plt Count (150-450) k/uL Sodium (137-145) mmol/L Carbon Dioxide (22-30) mmol/L BUN (7-17) mg/dL Glucose (74-99) mg/dL POC Glucose (mg/dL) 139 H (70-110) mg/dL Calcium (8.4-10.2) mg/dL Troponin I (0.000-0.034) ng/mL Urine Appearance (Clear) Ur Specific [place] (1.001-1.035) Urine Protein (Negative) Ur Leukocyte Esterase (Negative) Urine RBC (0-5) /hpf Urine WBC (0-5) /hpf Urine WBC Clumps (None) /hpf Urine Mucus (None) /hpf Urine Yeast (Budding) (None) /hpf
--- NOTE | 2022-04-04 14:00 | P.PN ---
Subjective Progress Note Date: 04/04/22 Hospital course: Patient is a 71 yo CF with a hx of A fib s/p ablation, GERD, hypertension, dyslipidemia, and right diaphragmatic paralysis who presented for T10 to Pelvis decompression and fusion with revision. Blood loss and the case was approximately 1900 mL. During her operative course she required phenylephrine IV infusion, Vasopressin IVP. She also received TXA gtt. She received 7 L of lactated Ringer's. She received 1 amp of sodium bicarb intaop. She also received albumin. Her operative course was complicated with a cardiac arrest. During the case she developed A. fib with RVR and then quickly transitioned into bradycardia with a low end-tidal CO2. She received 0.4 of atropine and CPR was started. She received epinephrine 0.5. She achieved ROSC. Total down time was less than 5 minutes. She was extubated on 02/25. She continued to do well with struggled with pain. She was downgraded from ICU on 03/03. On 03/06/22 patient was noted to have a significant drop in hemoglobin from 10.0 down to 7.5 and upon reevaluation on 03/07 was found to have hemoglobin of 5.4, patient required multiple transfusions. She has received a total of 7 units PRBCs and 1 unit of platelets. She underwent a CT abdomen and pelvis and was found to have a large right chest hematoma dilated small bowel concerning for ileus. Patient was evaluated by cardiothoracic surgery and they recommended conservative management. On 03/07, patient was noted to be hypotensive with elevated WBC count of 42.3, with worsening renal function and hyperkalamia. Patient was treated with NS bolus, IV insulin/D50, Albuterol and sodium bicarbonate. She was transferred back to the ICU for septic shock requiring Levophed. Patient was started on Vancomycin and Cefepime. Blood and urine cultures were obtained and positive for Enterobacter. Infectious disease was consulted and patient was continued on Cefepime for treatment of Enterobacter UTI with secondary bacteremia and Vancomycin was discontinued. Patient was later weaned off of vasopressors and again transferred out of the ICU. Patient was started on Lasix for treatment of acute on chronic systolic heart failure with EF of 35-40%. Patient continued on Protonix for GI prophylaxis, amiodarone and metoprolol for atrial fibrillation with RVR sodium bicarb for treatment of metabolic acidosis. Pt's Xarelto remains hold at this time. Patient was evaluated by PMR and is currently not a candidate for inpatient rehab. She has been cleared by orthopedic surgery to start working with physical therapy and current plans are for patient to be discharged to group home facility for continued rehab. On 03/26/22 patient was again found to have elevating leukocytosis and repeat Wound cultures were obtained. Wound cultures were positive for pseudomonas aeruginosa, enterococcus fasciculus, and Patsy albicans. Patient to continue with Zosyn per culture and sensitivity report and as recommended by infectious d isease as this may be contamination/colonization however patient is a high risk of infection so we will continue with empiric antibiotic therapy. Nursing staff reported overnight on 03/28/22 patient again developed episodes of melena and at that time Dr. Arce, general surgeon was re-consulted. Upon assessment morning 03/29. Patient complaining of left upper and left lower quadrant abdominal pain and new-onset. Stat orders place. CT abdomen and pelvis, unable to use contrast as patient reports ALLERGIC reaction includes rash/hives and hypotension. Due to patient's recurrent episodes of hypotension will err on the side of caution and complete imaging without contrast. CT abdomen and pelvis revealing bilateral hydronephrosis unable to rule out obstructive etiology, concerns for fecal impaction, and persistent previously known right anterior chest wall hematoma. General surgery following and reevaluated patient secondary to concerns of fecal impaction and started patient on lactulose. Warren catheter was inserted secondary to bilateral hydronephrosis and patient was evaluated by urologist recommending continuation of Warren catheter as bilateral hydronephrosis is believed to be resulting secondary to urinary retention. On the evening of 04/03/21 patient with continued atrial tachycardia and hypotension and unable to take metoprolol secondary to low blood pressures. RN reports patient had episode of hematochezia along with large blood clot and was transferred to stepdown unit. Patient currently residing in ICU overflow while awaiting an available bed on [address] [place] [address]. Physical examination: 04/04/22. Patient seen and fully evaluated at bedside. She was transferred to [facility] overnight secondary to hypotension, tachycardia, and episode of hematochezia and passing of large blood clot per rectum. Stat hemoglobin was completed resulting at 8.5 with previous hemoglobin drawn on 04/03/22 9.5. Patient currently in ICU overflow while awaiting an available bed on [address] [place] [address]. Patient was placed on amiodarone infusion for treatment of atrial tachycardia with RVR, metoprolol succinate was discontinued and patient was started on metoprolol tartrate 3 times daily to avoid further episodes of hypotension. Patient's he art rate remains elevated in 110s which has been persistent since 03/24/22. Morning labs completed and reviewed. Hemoglobin stable at 8.4 however patient showing worsening leukocytosis currently at 20.1. Will change Protonix to 40 mg IVP twice daily and continue to follow hemoglobin closely with repeat CBCs every 8 hours and plan for transfusion for hemoglobin less than 7. General: ill appearing, no acute distress, appears at stated age, Derm: warm, dry. Postsurgical dressing clean, dry, and intact this morning. Head: atraumatic, normocephalic, symmetric Eyes: EOMI, no lid lag, anicteric sclera Mouth: no lip lesion, dry membranes moist Cardiovascular: S1S2 irregular, no murmur Lungs: Respirations even, regular, and unlabored on room air. Lungs clear to auscultation bilaterally Ext: no gross muscle atrophy, no edema, no contractures Abd: Warren catheter in place. Obese. Non tender to palpation. Neuro: Moving all 4 extremities independently, sensation and movement equal and intact in bilateral upper and lower extremities. Patient continues with equal Bilateral lower extremity weakness unable to lift legs off the bed independently. Psych:: Patient with depressed affect, she is pleasant and cooperative. Assessment and plan of care: Status post Cardiac arrest with ROSC Atrial tachycardia with RVR Cardiomyopathy -Cardiology following. -Continuous telemetry monitoring. -Continue amiodarone infusion with plans to resume oral amiodarone 200 mg daily once infusion is complete and as scheduled for tomorrow morning. -Metoprolol succinate was discontinued and patient started on metoprolol tartrate 3 times daily to prevent further episodes of hypotension. Septic shock resulting from Enterobacter cloacae UTI with secondary bacteremia Enterobacter cloacae UTI with secondary bacteremia Lactic acidosis Leukocytosis -Blood cultures + Enterobacter cloacae. Repeat blood cultures negative on 03/07/22 and 03/26/22. -Urine culture + Enterobacter cloacae. Patient completed course of antibiotics with cefepime. -Wound cultures 03/26/22 are positive for pseudomonas aeruginosa, enterococcus fasciculus, and Patsy albicans. Continue with Zosyn and per positivity report as recommended by infectious disease as this may be contamination/colonization however patient is a high risk of infection so we will continue with empiric antibiotic therapy. -Repeat urinalysis completed 04/04/22 positive for infection with 87 WBCs, 12 RBCs, and leukocyte esterase. -Infectious disease following and managing antibiotic course at this time. Patient remains on Zosyn Left upper and lower quadrant abdominal pain Fecal impaction, clinically resolved GI bleeding with reports of hematochezia and large clots -CT abdomen and pelvis concerning for possible fecal impaction. -Gen. surgery was consulted for reevaluation and starting patient on lactulose. -Continue with Protonix 40 mg IVP twice daily -CBC every 8 hours and transfuse as needed for hemoglobin less than 7. Bilateral hydronephrosis, likely secondary to urinary retention -CT abdomen and pelvis revealing bilateral hydronephrosis unable to rule out obstructive etiology. -Renal function stable with the exception of mildly elevated BUN at 24 and creatinine of 0.41. Documented urine output over the past 24 hours 1350 mL. -Urology following, recommending continuation of Warren catheter Acute on Chronic Systolic CHF -Echo shows EF 35-40% with severe pulmonary HTN, moderate MR. -Cardiology following -Continue amiodarone, metoprolol, and furosemide -Patient initially started on Aldactone but was discontinued secondary to hyperkalemia -Continue close monitoring of I's and O's Prerenal azotemia, improving Hyponatremia, improving -Na 135, BUN 28 -Nephrology following. Prediabetes with hyperglycemia, now hypoglycemia -Likely steroid induced -A1c is 6 -Levimir discontinued due to episodes of hypoglycemia after discontinuation of steroids -Continue with sliding scale Acute blood loss anemia, hemoglobin stable. Right breast hematoma GI bleed, ischemic bowel ruled out. -Status post a total of 7 units PRBCs and 1 unit of platelets. -Gen. surgery following anticipation for EGD which revealed gastritis and mild esophagitis with no active bleeding. -Xarelto remains on hold at this time. -CT surgery recommends conservative managment of hematoma. -Monitor hemoglobin and Transfuse as needed if Hgb < 7. Atrial fibrillation with persistent RVR -Xarelto remains on hold secondary to GI bleed. -Continue Amiodarone and Metoprolol. -Cardiology following and on 03/24/22 cleared patient from cardiac standpoint for discharge. Hyperkalemia, resolved after discontinuation of Aldactone and lisinopril Metabolic acidosis, resolved -Continue sodium bicarb 650 mg twice a day -Aldactone and lisinopril discontinued. -Nephrology is following. T10 to pelvis decompression with fusion Post-op pain -Management per primary admitting Orthopedic surgery team including DVT prophylaxis, pain management, wound/dressing care, weightbearing, and PT/OT . -Continue Gabapentin, Valium, Flexeril. -Decadron discontinued on 03/28/22 -PT/OT following. -[facility] [place] [facility] Right diaphragmatic paralysis -Pulmonology following and cleared patient from their perspective on 03/22/22 Hyperlipidemia -Continue daily medication regimen with atorvastatin. Hypertension -Monitor vital signs and continue daily medication regimen with metoprolol and amiodarone. -Lisinopril and Aldactone was discontinued secondary to hyperkalemia. Transaminitis Obstructive LFTs. -Likely ischemic hepatitis. -Resolved Thank you for allowing us to participate in the care of this pleasant patient. Do not hesitate to contact us with questions. Someone can be reached from the [facility] hospitalist group all hours of the day at [phone] or via [employer]. I reviewed the documentation as provided by the BRAEDEN above, who is the original author of this note. I agree with the documented assessment and plan, with the following changes: none Objective - Vital Signs Vital signs: Vital Signs Temp 97.7 F 04/04/22 05:29 Pulse 114 H 04/04/22 07:00 Resp 16 04/04/22 07:00 BP 106/69 04/04/22 07:00 Pulse Ox 97 04/04/22 07:00 FiO2 2 04/04/22 05:29 Intake & Output 04/03/22 04/04/22 04/04/22 18:59 06:59 18:59 Intake Total 540 Output Total 900 175 Balance -900 365 Intake: Oral 540 Output: Urine 900 175 Other: Voiding Method Indwelling Catheter Indwelling Catheter # Bowel Movements 1 1 ABP, PAP, CO, CI - Last Documented Arterial Blood Pressure 158/70 - Labs CBC & Chem 7: 04/09/22 08:30 04/09/22 06:00 Labs: Abnormal Lab Results - Last 24 Hours (Table) 04/03/22 04/03/22 04/03/22 Range/Units 11:41 17:23 20:16 WBC (3.8-10.6) k/uL RBC (3.80-5.40) m/uL Hgb (11.4-16.0) gm/dL Hct (34.0-46.0) % RDW (11.5-15.5) % Plt Count (150-450) k/uL Sodium (137-145) mmol/L Carbon Dioxide (22-30) mmol/L BUN (7-17) mg/dL Glucose (74-99) mg/dL POC Glucose (mg/dL) 139 H 160 H 133 H (70-110) mg/dL Calcium (8.4-10.2) mg/dL Troponin I (0.000-0.034) ng/mL 04/04/22 04/04/22 04/04/22 Range/Units 00:26 03:13 03:13 WBC 15.6 H (3.8-10.6) k/uL RBC 2.68 L (3.80-5.40) m/uL Hgb 8.5 L (11.4-16.0) gm/dL Hct 24.8 L (34.0-46.0) % RDW 20.7 H (11.5-15.5) % Plt Count 145 L (150-450) k/uL Sodium 135 L (137-145) mmol/L Carbon Dioxide 33 H (22-30) mmol/L BUN 28 H (7-17) mg/dL Glucose 108 H (74-99) mg/dL POC Glucose (mg/dL) (70-110) mg/dL Calcium 7.3 L (8.4-10.2) mg/dL Troponin I 0.035 H* (0.000-0.034) ng/mL 04/04/22 04/04/22 Range/Units 05:31 06:51 WBC (3.8-10.6) k/uL RBC (3.80-5.40) m/uL Hgb (11.4-16.0) gm/dL Hct (34.0-46.0) % RDW (11.5-15.5) % Plt Count (150-450) k/uL Sodium (137-145) mmol/L Carbon Dioxide (22-30) mmol/L BUN (7-17) mg/dL Glucose (74-99) mg/dL POC Glucose (mg/dL) 148 H 184 H (70-110) mg/dL Calcium (8.4-10.2) mg/dL Troponin I (0.000-0.034) ng/mL
[2022-04-04 14:27] LABS: Anisocytosis Moderate; HCT 23.9 % (34.0-46.0); HGB 8.1 gm/dL (11.4-16.0); Hypochromasia Moderate; MCH 32.2 pg (25.0-35.0); MCHC 33.8 g/dL (31.0-37.0); MCV 95.3 fL (80.0-100.0); Macrocytosis Slight; Mean Platelet Volume 9.9; Platelet Count 148 k/uL (150-450); Poikilocytosis Marked; RBC 2.51 m/uL (3.80-5.40); RDW 21.3 % (11.5-15.5); WBC 20.8 k/uL (3.8-10.6)
[2022-04-04 16:27] LABS: Glucose,Whole Blood 167 mg/dL (70-110)
--- NOTE | 2022-04-04 18:42 | P.PN ---
Subjective Progress Note Date: 04/04/22 Principal diagnosis: UTI and bacteremia Patient is a 71-year-old female with a past medical history difficult for atrial fibrillation flutter hypertension hyperlipidemia hypothyroidism right breast cancer electively admitted to the hospital more than 2 weeks ago 022 for T10 to lumbar spine revision decompression and posterior lateral interbody fusion, patient did have a episode of hypotension and elevated white count requiring admission to the ICU patient did have a positive UA and gram- negative bacteremia and is scheduled for exploration of the thoracolumbar incision completed on 03/09/2022 with apparently no evidence of any abscess On today's evaluation that is 04/04/2022 the patient continues to be afebrile , the patient is breathing comfortably on room air, the patient was noticed to have 2 bloody bowel movement for the patient has been transferred to the ICU and there was no bed available on 3 S. patient is currently hemodynamically stable not requiring any pressor support per pt nurse, no vomiting has been reported Objective - Vital Signs Vital signs: Vital Signs Temp 97.6 F 04/04/22 08:00 Pulse 110 H 04/04/22 11:00 Resp 23 04/04/22 11:00 BP 94/67 04/04/22 10:00 Pulse Ox 99 04/04/22 11:00 FiO2 2 04/04/22 05:29 Intake & Output 04/03/22 04/04/22 04/04/22 18:59 06:59 18:59 Intake Total 540 100 Output Total 900 175 110 Balance -900 365 -10 Weight 127.2 kg Intake: IV 100 Piperacillin-Tazobactam 3 100 .375 gm In Sodium Chloride 0.9% 100 ml @ 25 mls/hr IVPB Q8HR [facility] Rx# :[id number] Oral 540 Output: Urine 900 175 110 Other: Voiding Method Indwelling Catheter Indwelling Catheter Indwelling Catheter # Bowel Movements 1 1 ABP, PAP, CO, CI - Last Documented Arterial Blood Pressure 158/70 - Exam GENERAL DESCRIPTION: An elderly female lying in bed in no distress RESPIRATORY SYSTEM: Unlabored breathing , decreased breath sounds at bases HEART: S1 S2 regular rate and rhythm , ABDOMEN: Soft , no tenderness Lower lumbar spine did have some maceration but no significant redness or purulent drainage was noticed EXTREMITIES: Diffuse swelling bilateral lower extremity - Labs CBC & Chem 7: 04/04/22 13:53 04/04/22 03:13 Labs: Abnormal Lab Results - Last 24 Hours (Table) 04/03/22 04/03/22 04/04/22 Range/Units 17:23 20:16 00:26 WBC (3.8-10.6) k/uL RBC (3.80-5.40) m/uL Hgb (11.4-16.0) gm/dL Hct (34.0-46.0) % RDW (11.5-15.5) % Plt Count (150-450) k/uL Sodium (137-145) mmol/L Carbon Dioxide (22-30) mmol/L BUN (7-17) mg/dL Glucose (74-99) mg/dL POC Glucose (mg/dL) 160 H 133 H (70-110) mg/dL Calcium (8.4-10.2) mg/dL Troponin I 0.035 H* (0.000-0.034) ng/mL Urine Appearance (Clear) Ur Specific [place] (1.001-1.035) Urine Protein (Negative) Ur Leukocyte Esterase (Negative) Urine RBC (0-5) /hpf Urine WBC (0-5) /hpf Urine WBC Clumps (None) /hpf Urine Mucus (None) /hpf Urine Yeast (Budding) (None) /hpf 04/04/22 04/04/22 04/04/22 Range/Units 03:13 03:13 05:31 WBC 15.6 H (3.8-10.6) k/uL RBC 2.68 L (3.80-5.40) m/uL Hgb 8.5 L (11.4-16.0) gm/dL Hct 24.8 L (34.0-46.0) % RDW 20.7 H (11.5-15.5) % Plt Count 145 L (150-450) k/uL Sodium 135 L (137-145) mmol/L Carbon Dioxide 33 H (22-30) mmol/L BUN 28 H (7-17) mg/dL Glucose 108 H (74-99) mg/dL POC Glucose (mg/dL) 148 H (70-110) mg/dL Calcium 7.3 L (8.4-10.2) mg/dL Troponin I (0.000-0.034) ng/mL Urine Appearance (Clear) Ur Specific [place] (1.001-1.035) Urine Protein (Negative) Ur Leukocyte Esterase (Negative) Urine RBC (0-5) /hpf Urine WBC (0-5) /hpf Urine WBC Clumps (None) /hpf Urine Mucus (None) /hpf Urine Yeast (Budding) (None) /hpf 04/04/22 04/04/22 04/04/22 Range/Units 06:51 08:59 09:25 WBC 20.1 H (3.8-10.6) k/uL RBC 2.67 L (3.80-5.40) m/uL Hgb 8.4 L (11.4-16.0) gm/dL Hct 24.7 L (34.0-46.0) % RDW 21.4 H (11.5-15.5) % Plt Count 141 L (150-450) k/uL Sodium (137-145) mmol/L Carbon Dioxide (22-30) mmol/L BUN (7-17) mg/dL Glucose (74-99) mg/dL POC Glucose (mg/dL) 184 H (70-110) mg/dL Calcium (8.4-10.2) mg/dL Troponin I (0.000-0.034) ng/mL Urine Appearance Cloudy H (Clear) Ur Specific [place] 1.037 H (1.001-1.035) Urine Protein 1+ H (Negative) Ur Leukocyte Esterase Large H (Negative) Urine RBC 12 H (0-5) /hpf Urine WBC 87 H (0-5) /hpf Urine WBC Clumps Occasional H (None) /hpf Urine Mucus Rare H (None) /hpf Urine Yeast (Budding) Many H (None) /hpf 04/04/22 Range/Units 11:22 WBC (3.8-10.6) k/uL RBC (3.80-5.40) m/uL Hgb (11.4-16.0) gm/dL Hct (34.0-46.0) % RDW (11.5-15.5) % Plt Count (150-450) k/uL Sodium (137-145) mmol/L Carbon Dioxide (22-30) mmol/L BUN (7-17) mg/dL Glucose (74-99) mg/dL POC Glucose (mg/dL) 139 H (70-110) mg/dL Calcium (8.4-10.2) mg/dL Troponin I (0.000-0.034) ng/mL Urine Appearance (Clear) Ur Specific [place] (1.001-1.035) Urine Protein (Negative) Ur Leukocyte Esterase (Negative) Urine RBC (0-5) /hpf Urine WBC (0-5) /hpf Urine WBC Clumps (None) /hpf Urine Mucus (None) /hpf Urine Yeast (Budding) (None) /hpf Assessment and Plan (1) Sepsis Current Visit: Yes Status: Acute Code(s): A41.9 - SEPSIS, UNSPECIFIED ORGANISM SNOMED Code(s): 27292277 Plan: 1-patient with diarrhea seemed to have responded to Questran to continue, hold if no bowel movement for 24 hours 2elevated white count and concern for possible maceration of the lower end of the incision cultures obtained per hospitalist which are currently growing enterococcus and Pseudomonas along with anaerobe and Patsy possible colonization however the patient is high risk of infection as per discussion with the spine surgery. 3-patient now with episode of GI bleeding and required admission to the ICU/3 S. both surgery and GI rest following the patient closely 4-cultures has been repeated and the patient continue on Zosyn and monitor clinical course closely
[2022-04-04] MEDS ORDERED: MAGNESIUM CITRATE 296 ML BOTTLE PO ONE (19:00)
[2022-04-04] MEDS ORDERED: PEG 3350 (236 GM/BTL) + LYTES 4,000 ML BOTTLE PO ONE (19:30)
[2022-04-04 20:28] LABS: Glucose,Whole Blood 145 mg/dL (70-110)
[2022-04-05] MEDS: ACETAMINOPHEN TAB 500 MG TAB PO SCH ×4 (00:14→17:16)
[2022-04-05] MEDS: PIPERACILLIN-TAZOBACTAM 3.375 GM in SODIUM CHLORIDE 0.9% 100 ML IVPB SCH ×4 (00:14→23:45)
[2022-04-05 00:38] LABS: Anisocytosis Moderate; HCT 23.7 % (34.0-46.0); HGB 8.1 gm/dL (11.4-16.0); Hypochromasia Slight; MCHC 34.2 g/dL (31.0-37.0); MCV 93.3 fL (80.0-100.0); Macrocytosis Slight; Mean Platelet Volume 11.4; Platelet Count 129 k/uL (150-450); Poikilocytosis Marked; RBC 2.54 m/uL (3.80-5.40); RDW 22.2 % (11.5-15.5); WBC 22.7 k/uL (3.8-10.6)
[2022-04-05] MEDS: AMIODARONE 450 MG in DEXTROSE 5% IN WATER 250 ML IV SCH ×2 (02:16)
[2022-04-05] MEDS: SODIUM CHLORIDE 0.9% 1,000 ML IV SCH (05:55)
[2022-04-05 06:51] LABS: Glucose,Whole Blood 141 mg/dL (70-110)
[2022-04-05] MEDS: INSULIN ASPART (NovoLOG) 100 UNIT/ML VIAL SQ SCH ×4 (06:53→21:40)
[2022-04-05] MEDS: MIDODRINE 5 MG TAB PO SCH ×3 (06:57→17:18)
[2022-04-05] MEDS: LEVOTHYROXINE 88 MCG TAB PO SCH (06:57)
--- NOTE | 2022-04-05 08:24 | P.PN ---
Subjective Progress Note Date: 04/05/22 Principal diagnosis: Lumbar spondylosis adjacent segment disease status post L2-L4 posterior fusion with proximal junctional failure neurogenic claudication Patient seen and examined this morning. Patient is resting in bed. She is currently in ICU hold waiting for a bed on 3S. Surgical dressing CDI, changed this morning by nursing. RN reports that patient had 2 bowel movements without any blood present last night. Patient continues to report that she is short of breath at times and remains on 2L nasal cannula. Encouragement to increase activity today. Spoke with RN about getting her to a room with a zulema lift to assist patient to getting up in chair with meals. Continue to work with PT/OT. We need to get patient back to a normal routine of oral hygiene in the morning and daily ADLs. She denies any fever/chills, nausea/vomiting or chest pain. Objective - Vital Signs Vital signs: Vital Signs Temp 97.7 F 04/05/22 04:00 Pulse 109 H 04/05/22 04:00 Resp 18 04/05/22 04:00 BP 125/72 04/05/22 04:00 Pulse Ox 94 L 04/05/22 04:00 FiO2 2 04/04/22 05:29 Intake & Output 04/04/22 04/05/22 04/05/22 18:59 06:59 18:59 Intake Total 100 Output Total 110 610 Balance -10 -610 Weight 127.2 kg Intake: IV 100 Piperacillin-Tazobactam 3 100 .375 gm In Sodium Chloride 0.9% 100 ml @ 25 mls/hr IVPB Q8HR [facility] Rx# :[id number] Output: Urine 110 610 Other: Voiding Method Indwelling Catheter Indwelling Catheter # Bowel Movements 1 1 ABP, PAP, CO, CI - Last Documented Arterial Blood Pressure 158/70 - Exam PHYSICAL EXAMINATION: General: Awake, alert, appropriate for age, in no acute distress. HEENT: No changes Extremities: Skin warm and dry without no acute lesions, coloration, temperature, skin intact, no tenderness or erythema. Integument: Surgical incisions: Dressing CDI, Upper portion of incision and lower portion is well healed, sutures have been removed. Mid- portion remains sutured with maceration noted. Warren cath present Palpation: Special findings: mild discomfort with palpation of the right breast area with healing hematoma noted as well as anterior chest wall. VASCULAR STATUS : Wrist Pulses: [2/4 bilateral radial and ulnar] Pedal Pulses: [2/4 bilateral DP and PT] Color: [Normal] Edema: Improved in arms and hands. NEUROLOGIC EXAMINATION: Mental Status: Awake and alert, oriented,but slow with normal attention, concentration and memory, and fluent, she has slow speech Cranial Nerves: I: Olfactory not tested. II: Visual acuity normal, no visual field deficit noted with confrontation. III,IV: Normal pupillary reflexes & intact extraocular movements without nystagmus. V,: Intact symmetrical facial sensation. VII: Intact symmetrical facial motor movement VIII: Hearing intact. IX,X: Intact gag, swallow, & normal voice. XI: Sternocleidomastoid, trapezius function intact. XII: Tongue midline with normal movements. Special Tests: L'hermitte's Sign: Absent Straight Leg Raising: Absent Bilateral Motor Exam (0-5/5, N/T) STRENGTH 4- out of 5 strength in upper extremity's bilaterally all major muscle groups without focal deficits generalized weakness 3 to 5 strength bilateral lower extremities all major muscle groups with generalized weakness no focal deficits. She is weak in her hip flexors currently, bilateral quad muscles are engaging. REFLEXES Upper Extremity: RIGHT [2]/4 LEFT [2]/4 Lower Extremity: RIGHT [2]/4 LEFT [2]/4 Pathological Reflexes Warren's: RIGHT [Absent] LEFT [Absent] Babinski: RIGHT [Absent] LEFT [Absent] Clonus: RIGHT [None] LEFT [None] SENSORY Intact Gait and Functional Evaluation: Sit patient at bedside and increase physical activity as tolerated - Labs CBC & Chem 7: 04/04/22 22:14 04/04/22 22:14 Labs: Abnormal Lab Results - Last 24 Hours (Table) 04/04/22 04/04/22 04/04/22 Range/Units 08:59 09:25 11:22 WBC 20.1 H (3.8-10.6) k/uL RBC 2.67 L (3.80-5.40) m/uL Hgb 8.4 L (11.4-16.0) gm/dL Hct 24.7 L (34.0-46.0) % RDW 21.4 H (11.5-15.5) % Plt Count 141 L (150-450) k/uL POC Glucose (mg/dL) 139 H (70-110) mg/dL Urine Appearance Cloudy H (Clear) Ur Specific [place] 1.037 H (1.001-1.035) Urine Protein 1+ H (Negative) Ur Leukocyte Esterase Large H (Negative) Urine RBC 12 H (0-5) /hpf Urine WBC 87 H (0-5) /hpf Urine WBC Clumps Occasional H (None) /hpf Urine Mucus Rare H (None) /hpf Urine Yeast (Budding) Many H (None) /hpf 04/04/22 04/04/22 04/04/22 Range/Units 13:53 16:26 20:27 WBC 20.8 H (3.8-10.6) k/uL RBC 2.51 L (3.80-5.40) m/uL Hgb 8.1 L (11.4-16.0) gm/dL Hct 23.9 L (34.0-46.0) % RDW 21.3 H (11.5-15.5) % Plt Count 148 L (150-450) k/uL POC Glucose (mg/dL) 167 H 145 H (70-110) mg/dL Urine Appearance (Clear) Ur Specific [place] (1.001-1.035) Urine Protein (Negative) Ur Leukocyte Esterase (Negative) Urine RBC (0-5) /hpf Urine WBC (0-5) /hpf Urine WBC Clumps (None) /hpf Urine Mucus (None) /hpf Urine Yeast (Budding) (None) /hpf 04/04/22 04/05/22 Range/Units 22:14 06:49 WBC 22.7 H (3.8-10.6) k/uL RBC 2.54 L (3.80-5.40) m/uL Hgb 8.1 L (11.4-16.0) gm/dL Hct 23.7 L (34.0-46.0) % RDW 22.2 H (11.5-15.5) % Plt Count 129 L (150-450) k/uL POC Glucose (mg/dL) 141 H (70-110) mg/dL Urine Appearance (Clear) Ur Specific [place] (1.001-1.035) Urine Protein (Negative) Ur Leukocyte Esterase (Negative) Urine RBC (0-5) /hpf Urine WBC (0-5) /hpf Urine WBC Clumps (None) /hpf Urine Mucus (None) /hpf Urine Yeast (Budding) (None) /hpf Microbiology - Last 24 Hours (Table) 04/04/22 09:25 Urine Culture - Preliminary Urine,Voided Assessment and Plan Assessment: 1. Lumbar spondylosis; adjacent segment disease status post L2-L4 posterior fusion with proximal junctional failure; neurogenic claudication - Postoperative day #40 & 27 status post [id number] decompression and fusion with washout and revision dural repair -ABLA expected outcome of surgery as well as secondary to UGI bleed. Status post 7 units PRBC and 1 pack platelets -bilateral lower extremity weakness, status post multiple controlled falls in- house -Enterobacter sepsis, UTI -status post cardiac arrest Plan: -Appreciate technical assistance consultant and team management PCC and medicine -Appreciate cardiothoracic, Gen. surgery, nephrology, ID evaluations -Awaiting Consult and recommendations from Wound Care -Continue Activity: Patient to be up in chair for all meals. Encourage to increase physical activity as tolerated. -Cont Abx for duration of stay -Caffiene daily 200 mg daily, Fioricet -Pain control: Adequate today ( Tylenol 1000 mg MEHUL, Oxy IR q6 hrs 10-15 mg titrated to pain (pt been on Villisca for 20 yrs), Cont Gabapentin,) -Meds: reviewed -Trend labs -Transfusions to vitals -GI ppx: senna, Miralax -Cont with FBS -DVT PPX: Mechanical -Hygiene: Maintain incision clean and dry. Meticulous cleaning after BMs away from incision site The wound needs to be kept meticulously clean, and dry. -Encourage IS 10x/hr -Anticipate discharge to [facility] in the next 48 hours.
[2022-04-05 09:03] LABS: Anisocytosis Moderate; HCT 22.4 % (34.0-46.0); HGB 7.9 gm/dL (11.4-16.0); Hypochromasia Slight; MCH 32.9 pg (25.0-35.0); MCHC 35.2 g/dL (31.0-37.0); MCV 93.5 fL (80.0-100.0); Macrocytosis Slight; Mean Platelet Volume 10.4; Platelet Count 121 k/uL (150-450); Poikilocytosis Marked; RBC 2.39 m/uL (3.80-5.40); RDW 22.2 % (11.5-15.5); WBC 20.7 k/uL (3.8-10.6)
[2022-04-05] MEDS: FUROSEMIDE 40 MG TAB PO SCH (09:19)
[2022-04-05] MEDS: SODIUM BICARBONATE TAB 650 MG TAB PO SCH ×2 (09:19→23:44)
[2022-04-05] MEDS: METOPROLOL TARTRATE 25 MG TAB PO SCH ×3 (09:19→23:44)
[2022-04-05] MEDS: DULoxetine HCL 60 MG CAPSULE.DR PO SCH (09:19)
[2022-04-05] MEDS: ATORVASTATIN 20 MG TAB PO SCH (09:19)
[2022-04-05] MEDS: MAGNESIUM OXIDE 400 MG TAB PO SCH (09:19)
[2022-04-05] MEDS: PANTOPRAZOLE 40 MG/10 ML VIAL IVP SCH ×2 (09:19→21:44)
[2022-04-05] MEDS: AMIODARONE 200 MG TAB PO SCH (09:19)
[2022-04-05] MEDS: GABAPENTIN 400 MG CAP PO SCH ×3 (09:19→23:44)
[2022-04-05] MEDS: MAG HYDROX/AL HYDROX/SIMETH 30 ML, diphenhydrAMINE ELIXIR 75 MG, LIDOCAINE VISCOUS 2% 3... PO SCH ×9 (09:20→23:43)
--- NOTE | 2022-04-05 09:22 | P.PN ---
Subjective Progress Note Date: 04/05/22 The patient is a 71-year-old female currently admitted to the hospital after undergoing lumbar surgery on February 24 for severe stenosis, mechanical low back pain, and neurogenic claudication. Postoperative complications include atrial fibrillation/atrial flutter and GI bleeding. The patient was recently transferred back to the ICU for continued bleeding and elevated heart rates. Patient was interviewed lying in bed. Arouses to physical stimuli. She denies chest pain or pressure. No dyspnea. GENERAL: Ill-appearing, well-nourished and in no acute distress. NECK: Supple without JVD or thyromegaly. LUNGS: Breath sounds clear to auscultation bilaterally. Respiration equal and unlabored. No wheezes, rales or rhonchi. HEART: Regular rate and rhythm without murmurs, rubs or gallops. S1 and S2 he corbin. Notably tachycardic. EXTREMITIES: Normal range of motion, no edema. No clubbing or cyanosis. Peripheral pulses intact and strong. VITALS: Heart rate 109, blood pressure 125/72, respiration 18, afebrile, SpO2 94% on 2 L nasal cannula TELEMETRY: Atrial tachycardia with heart rates in the 1 teens LABS: WBC 20.7, hemoglobin 7.9, hematocrit 22.4, platelet 121 IMPRESSION: Atrial tachycardia, 2-1 conduction Cardiomyopathy of unknown etiology Status post back surgery Postoperative GI bleeding Morbid obesity Hypertension Dyslipidemia History of atrial flutter status post ablation PLAN: Resume by mouth amiodarone Continue metoprolol tartrate TID Consider increasing if blood pressure remains stable I am dictating on behalf of Dr Preet Legre's history/physical and assessment/plan. Objective - Vital Signs Vital signs: Vital Signs Temp 97.7 F 04/05/22 04:00 Pulse 109 H 04/05/22 04:00 Resp 18 04/05/22 04:00 BP 125/72 04/05/22 04:00 Pulse Ox 94 L 04/05/22 04:00 FiO2 2 04/04/22 05:29 Intake & Output 04/04/22 04/05/22 04/05/22 18:59 06:59 18:59 Intake Total 100 Output Total 110 610 Balance -610 Weight 127.2 kg Intake: IV 100 Piperacillin-Tazobactam 3 100 .375 gm In Sodium Chloride 0.9% 100 ml @ 25 mls/hr IVPB Q8HR [facility] Rx# :[id number] Output: Urine 110 610 Other: Voiding Method Indwelling Catheter Indwelling Catheter # Bowel Movements 1 1 ABP, PAP, CO, CI - Last Documented Arterial Blood Pressure 158/70 - Labs CBC & Chem 7: 04/05/22 08:10 04/04/22 22:14 Labs: Abnormal Lab Results - Last 24 Hours (Table) 04/04/22 04/04/22 04/04/22 Range/Units 09:25 11:22 13:53 WBC 20.8 H (3.8-10.6) k/uL RBC 2.51 L (3.80-5.40) m/uL Hgb 8.1 L (11.4-16.0) gm/dL Hct 23.9 L (34.0-46.0) % RDW 21.3 H (11.5-15.5) % Plt Count 148 L (150-450) k/uL POC Glucose (mg/dL) 139 H (70-110) mg/dL Urine Appearance Cloudy H (Clear) Ur Specific [place] 1.037 H (1.001-1.035) Urine Protein 1+ H (Negative) Ur Leukocyte Esterase Large H (Negative) Urine RBC 12 H (0-5) /hpf Urine WBC 87 H (0-5) /hpf Urine WBC Clumps Occasional H (None) /hpf Urine Mucus Rare H (None) /hpf Urine Yeast (Budding) Many H (None) /hpf 04/04/22 04/04/22 04/04/22 Range/Units 16:26 20:27 22:14 WBC 22.7 H (3.8-10.6) k/uL RBC 2.54 L (3.80-5.40) m/uL Hgb 8.1 L (11.4-16.0) gm/dL Hct 23.7 L (34.0-46.0) % RDW 22.2 H (11.5-15.5) % Plt Count 129 L (150-450) k/uL POC Glucose (mg/dL) 167 H 145 H (70-110) mg/dL Urine Appearance (Clear) Ur Specific [place] (1.001-1.035) Urine Protein (Negative) Ur Leukocyte Esterase (Negative) Urine RBC (0-5) /hpf Urine WBC (0-5) /hpf Urine WBC Clumps (None) /hpf Urine Mucus (None) /hpf Urine Yeast (Budding) (None) /hpf 04/05/22 04/05/22 Range/Units 06:49 08:10 WBC 20.7 H (3.8-10.6) k/uL RBC 2.39 L (3.80-5.40) m/uL Hgb 7.9 L (11.4-16.0) gm/dL Hct 22.4 L (34.0-46.0) % RDW 22.2 H (11.5-15.5) % Plt Count 121 L (150-450) k/uL POC Glucose (mg/dL) 141 H (70-110) mg/dL Urine Appearance (Clear) Ur Specific [place] (1.001-1.035) Urine Protein (Negative) Ur Leukocyte Esterase (Negative) Urine RBC (0-5) /hpf Urine WBC (0-5) /hpf Urine WBC Clumps (None) /hpf Urine Mucus (None) /hpf Urine Yeast (Budding) (None) /hpf Microbiology - Last 24 Hours (Table) 04/04/22 09:25 Urine Culture - Preliminary Urine,Voided
[2022-04-05] MEDS: LACTULOSE 20 GM/30 ML CUP PO SCH (09:25)
--- NOTE | 2022-04-05 11:43 | P.PN ---
Subjective Progress Note Date: 04/05/22 Principal diagnosis: cardiac arrest Hospital Course: Patient is a 71 yo CF with a hx of A fib s/p ablation, GERD, hypertension, dyslipidemia, and right diaphragmatic paralysis who presented for T10 to Pelvis decompression and fusion with revision. Course complicated by significant blood loss. Patient was on vasopressors, also received TXA gtt. She received 7 L of lactated Ringer's. She received 1 amp of sodium bicarb intaop. She also received albumin. Patient then had a cardiac arrest. During the case she developed A. fib with RVR and then quickly transitioned into bradycardia with a low end-tidal CO2. She received 0.4 of atropine and CPR was started. She received epinephrine 0.5. She achieved ROSC. Total down time was less than 5 minutes. She was extubated on 02/25. She continued to do well with struggled with pain. She was downgraded from ICU on 03/03. On 03/06/22 patient was noted to have a significant drop in hemoglobin from 10.0 down to 7.5 and upon reevaluation on 03/07 was found to have hemoglobin of 5.4, patient required multiple transfusions. She has received a total of 7 units PRBCs and 1 unit of platelets. She underwent a CT abdomen and pelvis and was found to have a large right chest hematoma dilated small bowel concerning for ileus. Patient was evaluated by cardiothoracic surgery and they recommended conservative m anagement. On 03/07, patient was noted to be hypotensive with elevated WBC count of 42.3, with worsening renal function and hyperkalamia. Patient was treated with NS bolus, IV insulin/D50, Albuterol and sodium bicarbonate. She was transferred back to the ICU for septic shock requiring Levophed. Patient was started on Vancomycin and Cefepime. Blood and urine cultures were obtained and positive for Enterobacter. Infectious disease was consulted and patient was continued on Cefepime for treatment of Enterobacter UTI with secondary bacteremia and Vancomycin was discontinued. Patient was later weaned off of vasopressors and again transferred out of the ICU. Patient was started on Lasix for treatment of acute on chronic systolic heart failure with EF of 35-40%. Patient continued on Protonix for GI prophylaxis, amiodarone and metoprolol for atrial fibrillation with RVR sodium bicarb for treatment of metabolic acidosis. Pt's Xarelto remains hold at this time. Patient was evaluated by PMR and is currently not a candidate for inpatient rehab. She has been cleared by orthopedic surgery to start working with physical therapy and current plans are for patient to be discharged to nursing home facility for continued rehab. On 03/26/22 patient was again found to have elevating leukocytosis and repeat Wound cultures were obtained. Wound cultures were positive for pseudomonas aeruginosa, enterococcus fasciculus, and Patsy albicans. Patient to continue with Zosyn per culture and sensitivity report and as recommended by infectious disease as this may be contamination/colonization however patient is a high risk of infection so we will continue with empiric antibiotic therapy. Nursing staff reported overnight on 03/28/22 patient again developed episodes of melena and at that time Dr. Arce, general surgeon was re-consulted. Upon assessment morning 03/29. Patient complaining of left upper and left lower quadrant abdominal pain and new-onset. Stat orders place. CT abdomen and pelvis, unable to use contrast as patient reports ALLERGIC reaction includes rash/hives and hypo tension. Due to patient's recurrent episodes of hypotension will err on the side of caution and complete imaging without contrast. CT abdomen and pelvis revealing bilateral hydronephrosis unable to rule out obstructive etiology, concerns for fecal impaction, and persistent previously known right anterior chest wall hematoma. General surgery following and reevaluated patient secondary to concerns of fecal impaction and started patient on lactulose. Warren catheter was inserted secondary to bilateral hydronephrosis and patient was evaluated by urologist recommending continuation of Warren catheter as bilateral hydronephrosis is believed to be resulting secondary to urinary retention. On the evening of 04/03/21 patient with continued atrial tachycardia and hypotension and unable to take metoprolol secondary to low blood pressures. RN reports patient had episode of hematochezia along with large blood clot and was transferred to stepdown unit. Patient currently residing in ICU overflow while awaiting an available bed on [address] [place] [address]. Patient seen by general surgery. At bedside manual disimpaction. Also has a posterior anal fissure. On a bowel regimen. Subjective: Patient seen and examined at bedside. No acute events overnight. Patient denies any significant chest pain, shortness of breath, abdominal pain, nausea, vomiting. Per nursing, patient has not had any bowel movement yesterday. Continues to have a Warren catheter in place. Remains tachycardic up to 110s. Awaiting bed on [address] [place] [id number]. Pertinent positives and negatives as discussed above, a complete review of systems was performed and all other systems are negative. Vitals Signs Reviewed. General: ill appearing, no acute distress, appears at stated age, Derm: warm, dry. Postsurgical dressing clean, dry, and intact this morning. Head: atraumatic, normocephalic, symmetric Eyes: EOMI, no lid lag, anicteric sclera Mouth: no lip lesion, dry membranes moist Cardiovascular: S1S2 irregular, tachycardic, no murmur Lungs: Respirations even, regular, and unlabored on room air. Lungs clear to auscultation bilaterally , 2 L Ext: no gross muscle atrophy, no edema, no contractures Abd: Warren catheter in place. Obese. Non tender to palpation. Neuro: Moving all 4 extremities independently, sensation and movement equal and intact in bilateral upper and lower extremities. Patient continues with equal Bilateral lower extremity weakness unable to lift legs off the bed independently. Psych:: Patient with depressed affect, she is pleasant and cooperative. Assessment and Plan: Atrial tachycardia/fibrillation with RVR Hypotension Status post Cardiac arrest with ROSC Acute on chronic systolic heart failure -Cardiology following -Continuous telemetry monitoring. -Oral amiodarone and metoprolol tartrate -On diuretics -also on Midodrine -Holding anticoagulation GI bleeding with reports of hematochezia and large clots Left upper and lower quadrant abdominal pain Fecal impaction, status post manual disimpaction Anal fissure -CT abdomen and pelvis concerning for possible fecal impaction. -Gen. surgery was consulted for reevaluation -Continue with Protonix 40 mg IVP twice daily -CBC every 8 hours and transfuse as needed for hemoglobin less than 7 -On bowel regimen Septic shock resulting from Enterobacter cloacae UTI with secondary bacteremia Enterobacter cloacae UTI with secondary bacteremia Lactic acidosis Leukocytosis -Blood cultures + Enterobacter cloacae. Repeat blood cultures negative on 03/07 and 03/26/22. -Urine culture + Enterobacter cloacae. Patient completed course of antibiotics with cefepime. -Wound cultures 03/26/22 are positive for pseudomonas aeruginosa, enterococcus fasciculus, and Patsy albicans. Continue with Zosyn and per positivity report as recommended by infectious disease as this may be contamination/colonization however patient is a high risk of infection so we will continue with empiric antibiotic therapy. -Repeat urinalysis completed 04/04/22 positive for infection with 87 WBCs, 12 RBCs, and leukocyte esterase. -Infectious disease following and managing antibiotic course at this time. Patient remains on Zosyn Bilateral hydronephrosis, likely secondary to urinary retention -CT abdomen and pelvis revealing bilateral hydronephrosis unable to rule out obs tructive etiology. -Renal function stable -Urology following, recommending continuation of Warren catheter Prerenal azotemia, improving Hyponatremia, improving Hyperkalemia, resolved after discontinuation of Aldactone and lisinopril Metabolic acidosis, resolved -Na 135, BUN 28 -Continue sodium bicarb 650 mg twice a day -Nephrology following. Prediabetes with hyperglycemia, now hypoglycemia -Likely steroid induced -A1c is 6 -Continue with sliding scale Right breast hematoma - stable T10 to pelvis decompression with fusion Post-op pain -Management per primary admitting Orthopedic surgery team including DVT prophylaxis, pain management, wound/dressing care, weightbearing, and PT/OT . -Continue Gabapentin, Valium, Flexeril. -Decadron discontinued on 03/28/22 -PT/OT following. -Plan is for discharge to [facility] for rehab Right diaphragmatic paralysis -Pulmonology following and cleared patient from their perspective on 03/22/22 Hyperlipidemia -Continue daily medication regimen with atorvastatin. History of hypertension -Currently On Midodrine for episodes of hypotension Transaminitis -Likely ischemic hepatitis. -Resolved Thank you for allowing us to participate in the care of this pleasant patient. Do not hesitate to contact us with questions. Someone can be reached from the [facility] hospitalist group all hours of the day at [phone] or via perfect serve. Objective - Vital Signs Vital signs: Vital Signs Temp 97.7 F 04/05/22 04:00 Pulse 109 H 04/05/22 04:00 Resp 18 04/05/22 04:00 BP 125/72 04/05/22 04:00 Pulse Ox 94 L 04/05/22 04:00 FiO2 2 04/04/22 05:29 Intake & Output 04/04/22 04/05/22 04/05/22 18:59 06:59 18:59 Intake Total 100 Output Total 110 610 Balance - Weight 127.2 kg Intake: IV 100 Piperacillin-Tazobactam 3 100 .375 gm In Sodium Chloride 0.9% 100 ml @ 25 mls/hr IVPB Q8HR [facility] Rx# :[id number] Output: Urine 110 610 Other: Voiding Method Indwelling Catheter Indwelling Catheter # Bowel Movements 1 1 ABP, PAP, CO, CI - Last Documented Arterial Blood Pressure 158/70 - Labs CBC & Chem 7: 04/05/22 08:10 04/04/22 22:14 Labs: Abnormal Lab Results - Last 24 Hours (Table) 04/04/22 04/04/22 04/04/22 Range/Units 13:53 16:26 20:27 WBC 20.8 H (3.8-10.6) k/uL RBC 2.51 L (3.80-5.40) m/uL Hgb 8.1 L (11.4-16.0) gm/dL Hct 23.9 L (34.0-46.0) % RDW 21.3 H (11.5-15.5) % Plt Count 148 L (150-450) k/uL POC Glucose (mg/dL) 167 H 145 H (70-110) mg/dL 04/04/22 04/05/22 04/05/22 Range/Units 22:14 06:49 08:10 WBC 22.7 H 20.7 H (3.8-10.6) k/uL RBC 2.54 L 2.39 L (3.80-5.40) m/uL Hgb 8.1 L 7.9 L (11.4-16.0) gm/dL Hct 23.7 L 22.4 L (34.0-46.0) % RDW 22.2 H 22.2 H (11.5-15.5) % Plt Count 129 L 121 L (150-450) k/uL POC Glucose (mg/dL) 141 H (70-110) mg/dL Microbiology - Last 24 Hours (Table) 04/04/22 09:25 Urine Culture - Preliminary Urine,Voided
[2022-04-05 12:09] LABS: Glucose,Whole Blood 131 mg/dL (70-110)
--- NOTE | 2022-04-05 14:03 | P.PN ---
Subjective Progress Note Date: 04/05/22 CHIEF COMPLAINT: Spinal surgery HISTORY OF PRESENT ILLNESS: Surgical service following regards to GI bleed. Patient remains in the ICU as a select care overflow. Patient had evidence of a posterior anal fissure per Dr. Arce. Per nursing staff patient's bowel movements have been brown yesterday small and soft. Patient is been reporting no abdominal pain. She did drink a couple glasses of GoLYTELY yesterday prior to her bowel movements. She remains mildly tachycardic. WBC is 20.7 Hgb 7.9 PHYSICAL EXAM: VITAL SIGNS: Reviewed. GENERAL: Well-developed in no acute distress. HEENT: No sclera icterus. Extraocular movements grossly intact. Moist buccal mucosa. Head is atraumatic, normocephalic. ABDOMEN: Soft. Obese. Nondistended. Nontender NEUROLOGIC: Sleeping comfortably ASSESSMENT: 1. Acute GI bleed likely due to bleeding from posterior anal fissure 2. Fecal impaction 3. Lumbar decompression/fusion and then with washout and dural repair 4. Cardiac arrest 5. 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 Signing provider agrees with the documented findings, assessment, and plan of care. I have personally seen and examined the patient, reviewed the TABLEAU ARCHITECT /PAs history, exam and MDM and agree with the assessment and plan as written. Based on total visit time, I have performed more than 50% of the visit. As above: No significant bleeding since anticoagulation held. Bleeding site from small posterior anal fissure. Continue cathartics for now. Objective - Vital Signs Vital signs: Vital Signs Temp 97.7 F 04/05/22 04:00 Pulse 109 H 04/05/22 04:00 Resp 18 04/05/22 04:00 BP 125/72 04/05/22 04:00 Pulse Ox 94 L 04/05/22 04:00 FiO2 2 04/04/22 05:29 Intake & Output 04/04/22 04/05/22 04/05/22 18:59 06:59 18:59 Intake Total 100 Output Total 110 610 Balance -10 -610 Weight 127.2 kg Intake: IV 100 Piperacillin-Tazobactam 3 100 .375 gm In Sodium Chloride 0.9% 100 ml @ 25 mls/hr IVPB Q8HR [facility] Rx# :[id number] Output: Urine 110 610 Other: Voiding Method Indwelling Catheter Indwelling Catheter # Bowel Movements 1 1 ABP, PAP, CO, CI - Last Documented Arterial Blood Pressure 158/70 - Labs CBC & Chem 7: 04/05/22 08:10 04/04/22 22:14 Labs: Abnormal Lab Results - Last 24 Hours (Table) 04/04/22 04/04/22 04/04/22 Range/Units 13:53 16:26 20:27 WBC 20.8 H (3.8-10.6) k/uL RBC 2.51 L (3.80-5.40) m/uL Hgb 8.1 L (11.4-16.0) gm/dL Hct 23.9 L (34.0-46.0) % RDW 21.3 H (11.5-15.5) % Plt Count 148 L (150-450) k/uL POC Glucose (mg/dL) 167 H 145 H (70-110) mg/dL 04/04/22 04/05/22 04/05/22 Range/Units 22:14 06:49 08:10 WBC 22.7 H 20.7 H (3.8-10.6) k/uL RBC 2.54 L 2.39 L (3.80-5.40) m/uL Hgb 8.1 L 7.9 L (11.4-16.0) gm/dL Hct 23.7 L 22.4 L (34.0-46.0) % RDW 22.2 H 22.2 H (11.5-15.5) % Plt Count 129 L 121 L (150-450) k/uL POC Glucose (mg/dL) 141 H (70-110) mg/dL Microbiology - Last 24 Hours (Table) 04/04/22 09:25 Urine Culture - Preliminary Urine,Voided Yeast species
[2022-04-05 15:06] LABS: Anisocytosis Moderate; HCT 22.1 % (34.0-46.0); HGB 7.8 gm/dL (11.4-16.0); Hypochromasia Slight; MCHC 35.3 g/dL (31.0-37.0); MCV 93.5 fL (80.0-100.0); Macrocytosis Slight; Mean Platelet Volume 10.6; Platelet Count 117 k/uL (150-450); Poikilocytosis Marked; RBC 2.36 m/uL (3.80-5.40); RDW 22.4 % (11.5-15.5); WBC 21.5 k/uL (3.8-10.6)
--- NOTE | 2022-04-05 15:52 | P.PN ---
Subjective Progress Note Date: 04/05/22 On 04/05/2022, the patient is resting comfortably in bed. No significant complaints. The patient got transferred back to the intensive care unit for suspected GI bleed. Surgical services will again reconsulted. The patient had further evaluation and the patient was found to have an evidence of a posterior fissure. The patient's continued to have brown all movements. She has no nausea or vomiting. No abdominal pain. She was given GoLYTELY yesterday. Her WBC count at 20.7. Hemoglobin is at 7.9. She is afebrile. Her lower extremity edema has improved considerably the patient is currently on oral Lasix. She is post lumbar decompression/fusion with subsequent ureteral repair. Her previous EGD that was done on 03/19/2022 showed mild gastritis and esophagitis without evidence of any bleeding. The patient remains on PPI and the patient is on no anticoagulants for now. Cardiac rhythm is controlled A. fib/flutter. Objective - Vital Signs Vital signs: Vital Signs Temp 97.7 F 04/05/22 04:00 Pulse 109 H 04/05/22 04:00 Resp 18 04/05/22 04:00 BP 125/72 04/05/22 04:00 Pulse Ox 94 L 04/05/22 04:00 FiO2 2 04/04/22 05:29 Intake & Output 04/04/22 04/05/22 04/05/22 18:59 06:59 18:59 Intake Total 100 Output Total 110 610 Balance -10 -610 Weight 127.2 kg Intake: IV 100 Piperacillin-Tazobactam 3 100 .375 gm In Sodium Chloride 0.9% 100 ml @ 25 mls/hr IVPB Q8HR [facility] Rx# :[id number] Output: Urine 110 610 Other: Voiding Method Indwelling Catheter Indwelling Catheter # Bowel Movements 1 1 ABP, PAP, CO, CI - Last Documented Arterial Blood Pressure 158/70 - Exam No acute distress, oriented 3. Currently on room air oxygen and the patient is calm and comfortable. Head exam was generally normal. There was no scleral icterus or corneal arcus. Mucous membranes were moist. HEENT examination is grossly unremarkable. Neck supple. Full range of motion. No adenopathy thyromegaly or neck vein distention. Cardiovascular examination reveals regular rhythm rate. S1-S2 normal. No S3 or S4. No discernible murmur noted. Heart sounds are distant. Lungs reveal clear breath sounds. Breath sounds are equal bilaterally. No adventitious lung sounds including wheezes rhonchi or crackles. Abdomen soft bowel sounds are heard. No masses or tenderness. Extremities are intact. Slight edema of the extremities. No cyanosis or clubbing. Skin is without rash or lesion. Large hematoma about the right breast. Neurologic examination is brief but nonfocal. The patient's strength is quite diminished in lower extremity bilaterally. Please refer to the spine surgeons evaluation regarding the motor function and reflexes. Cranial nerves are essentially intact and the patient is awake and alert. She is also oriented. - Labs CBC & Chem 7: 04/05/22 14:06 04/04/22 22:14 Labs: Abnormal Lab Results - Last 24 Hours (Table) 04/04/22 04/04/22 04/04/22 Range/Units 08:59 09:25 11:22 WBC 20.1 H (3.8-10.6) k/uL RBC 2.67 L (3.80-5.40) m/uL Hgb 8.4 L (11.4-16.0) gm/dL Hct 24.7 L (34.0-46.0) % RDW 21.4 H (11.5-15.5) % Plt Count 141 L (150-450) k/uL POC Glucose (mg/dL) 139 H (70-110) mg/dL Urine Appearance Cloudy H (Clear) Ur Specific [place] 1.037 H (1.001-1.035) Urine Protein 1+ H (Negative) Ur Leukocyte Esterase Large H (Negative) Urine RBC 12 H (0-5) /hpf Urine WBC 87 H (0-5) /hpf Urine WBC Clumps Occasional H (None) /hpf Urine Mucus Rare H (None) /hpf Urine Yeast (Budding) Many H (None) /hpf 04/04/22 04/04/22 04/04/22 Range/Units 13:53 16:26 20:27 WBC 20.8 H (3.8-10.6) k/uL RBC 2.51 L (3.80-5.40) m/uL Hgb 8.1 L (11.4-16.0) gm/dL Hct 23.9 L (34.0-46.0) % RDW 21.3 H (11.5-15.5) % Plt Count 148 L (150-450) k/uL POC Glucose (mg/dL) 167 H 145 H (70-110) mg/dL Urine Appearance (Clear) Ur Specific Freedom (1.001-1.035) Urine Protein (Negative) Ur Leukocyte Esterase (Negative) Urine RBC (0-5) /hpf Urine WBC (0-5) /hpf Urine WBC Clumps (None) /hpf Urine Mucus (None) /hpf Urine Yeast (Budding) (None) /hpf 04/04/22 04/05/22 Range/Units 22:14 06:49 WBC 22.7 H (3.8-10.6) k/uL RBC 2.54 L (3.80-5.40) m/uL Hgb 8.1 L (11.4-16.0) gm/dL Hct 23.7 L (34.0-46.0) % RDW 22.2 H (11.5-15.5) % Plt Count 129 L (150-450) k/uL POC Glucose (mg/dL) 141 H (70-110) mg/dL Urine Appearance (Clear) Ur Specific Freedom (1.001-1.035) Urine Protein (Negative) Ur Leukocyte Esterase (Negative) Urine RBC (0-5) /hpf Urine WBC (0-5) /hpf Urine WBC Clumps (None) /hpf Urine Mucus (None) /hpf Urine Yeast (Budding) (None) /hpf Microbiology - Last 24 Hours (Table) 04/04/22 09:25 Urine Culture - Preliminary Urine,Voided Assessment and Plan Plan: Suspected recurrent GI bleeding, patient got transferred to the intensive care unit on 04/04/2022 for passing a large blood clot, Hb is 7.8. The patient is currently having brown bowel movement activity Acute sepsis secondary to UTI with Enterobacter with hypotension secondary to bacteremia/urinary tract infection with Enterobacter. The patient is currently on IV Zosyn, subsequent wound cultures came back positive for anaerobic gram- negative bacillus and the patient was placed on IV Zosyn. Infectious disease is on the case. altered mental status , recovered, back to normal Atrial flutter fibrillation/flutter , mild tachycardia she is on Po amiodarone and Lopressor, no anticoagulants due to episodic GIB, and the dose of metoprolol was increased up to 25 mg by mouth 3 times a day Leukocytosis GIB and the patient and an EGD (gastritis and esophagitis) on IV protonix Lumbar decompression/fusion , Noc . On 03/09/2022 she did require exploration and washout with dural repairs due to falls. Dural tear/leak and the patient had a drain that was removed and there is no ongoing leak at this point in time Cardiac arrest, brief pulseless electrical activity encountered in the operating room. Acute hypoxic/hypercapnic respiratory failure secondary to cardiac arrest/PEA. Morbid obesity, BMI of 43.0. History of right hemidiaphragm paralysis. History of right-sided breast cancer, previous lumpectomy. Dyslipidemia. Benign essential hypertension. diabetes mellitus, on a sliding scale coverage. CHF with an ejection fraction of 35-40% Fluid overload with increased lower extremity edema currently on PO Lasix 40 mg BID , The patient remains in negative fluid balance Plan Clinically stable No signs of any GI bleed Hold anticoagulants Continue PPIs Continue GoLYTELY We'll follow
[2022-04-05 17:16] LABS: Glucose,Whole Blood 120 mg/dL (70-110)
[2022-04-05 21:40] LABS: Glucose,Whole Blood 125 mg/dL (70-110)
[2022-04-06] MEDS: LACTULOSE 20 GM/30 ML CUP PO SCH ×3 (00:02→20:58)
[2022-04-06] MEDS: ACETAMINOPHEN TAB 500 MG TAB PO SCH ×4 (00:02→17:37)
[2022-04-06] MEDS: SODIUM CHLORIDE 0.9% 1,000 ML IV SCH (06:49)
[2022-04-06 06:59] LABS: Glucose,Whole Blood 154 mg/dL (70-110)
[2022-04-06] MEDS: LEVOTHYROXINE 88 MCG TAB PO SCH (07:03)
[2022-04-06] MEDS: INSULIN ASPART (NovoLOG) 100 UNIT/ML VIAL SQ SCH ×4 (07:04→20:33)
--- NOTE | 2022-04-06 07:21 | P.PN ---
Subjective Progress Note Date: 04/06/22 On 04/05/2022, the patient is resting comfortably in bed. No significant complaints. The patient got transferred back to the intensive care unit for suspected GI bleed. Surgical services will again reconsulted. The patient had further evaluation and the patient was found to have an evidence of a posterior fissure. The patient's continued to have brown all movements. She has no nausea or vomiting. No abdominal pain. She was given GoLYTELY yesterday. Her WBC count at 20.7. Hemoglobin is at 7.9. She is afebrile. Her lower extremity edema has improved considerably the patient is currently on oral Lasix. She is post lumbar decompression/fusion with subsequent ureteral repair. Her previous EGD that was done on 03/19/2022 showed mild gastritis and esophagitis without evidence of any bleeding. The patient remains on PPI and the patient is on no anticoagulants for now. Cardiac rhythm is controlled A. fib/flutter. On 04/06/2022, the patient is awake. She did not show any further signs of GI bleed. Hemoglobin currently is at 7.8 and this was the last reading from yesterday and a follow-up hemoglobin is pending from today. Meanwhile, the patient is having regular diet. Her oral intake is quite diminished and the patient feels quite depressed. She had brownish bowel movement yesterday. Hemodynamically she is stable. No pressors. She is on 1 L of O2 nasal cannula. No fever. No chills. Profoundly weak in the lower extremities, motor strength is better than the upper extremity. She is communicating. Her cardiac rhythm is normal sinus although she has had episodes of tachycardia with A. fib/flutter. No IV drug use has been use. She is on a proton pump inhibitor and she is currently on Protonix 40 mg IV every 12 hours. No significant issues with pain. Objective - Vital Signs Vital signs: Vital Signs Temp 98.5 F 04/06/22 02:00 Pulse 109 H 04/06/22 05:00 Resp 10 L 04/06/22 05:00 BP 102/59 04/06/22 05:00 Pulse Ox 99 04/06/22 05:00 FiO2 2 04/04/22 05:29 Intake & Output 04/05/22 04/06/22 04/06/22 18:59 06:59 18:59 Intake Total 200 780 Output Total 700 655 Balance -500 125 Intake: IV 200 380 Piperacillin-Tazobactam 3 200 100 .375 gm In Sodium Chloride 0.9% 100 ml @ 25 mls/hr IVPB Q8HR [facility] Rx# :[id number] Sodium Chloride 0.9% 1, 280 000 ml @ 10 mls/hr IV . Q24H [facility] Rx#:[id number] Oral 400 Output: Urine 700 655 Other: Voiding Method Indwelling Catheter Indwelling Catheter # Bowel Movements 1 1 ABP, PAP, CO, CI - Last Documented Arterial Blood Pressure 158/70 - Exam No acute distress, oriented 3. Currently on room air oxygen and the patient is calm and comfortable. Head exam was generally normal. There was no scleral icterus or corneal arcus. Mucous membranes were moist. HEENT examination is grossly unremarkable. Neck supple. Full range of motion. No adenopathy thyromegaly or neck vein distention. Cardiovascular examination reveals regular rhythm rate. S1-S2 normal. No S3 or S4. No discernible murmur noted. Heart sounds are distant. Lungs reveal clear breath sounds. Breath sounds are equal bilaterally. No adventitious lung sounds including wheezes rhonchi or crackles. Abdomen soft bowel sounds are heard. No masses or tenderness. Extremities are intact. Slight edema of the extremities. No cyanosis or clubbing. Skin is without rash or lesion. Large hematoma about the right breast. Neurologic examination is brief but nonfocal. The patient's strength is quite diminished in lower extremity bilaterally. Please refer to the spine surgeons evaluation regarding the motor function and reflexes. Cranial nerves are essentially intact and the patient is awake and alert. She is also oriented. - Labs CBC & Chem 7: 04/05/22 14:06 04/04/22 22:14 Labs: Abnormal Lab Results - Last 24 Hours (Table) 04/05/22 04/05/22 04/05/22 Range/Units 08:10 12:08 14:06 WBC 20.7 H 21.5 H (3.8-10.6) k/uL RBC 2.39 L 2.36 L (3.80-5.40) m/uL Hgb 7.9 L 7.8 L (11.4-16.0) gm/dL Hct 22.4 L 22.1 L (34.0-46.0) % RDW 22.2 H 22.4 H (11.5-15.5) % Plt Count 121 L 117 L (150-450) k/uL POC Glucose (mg/dL) 131 H (70-110) mg/dL 04/05/22 04/05/22 04/06/22 Range/Units 17:15 21:38 06:57 WBC (3.8-10.6) k/uL RBC (3.80-5.40) m/uL Hgb (11.4-16.0) gm/dL Hct (34.0-46.0) % RDW (11.5-15.5) % Plt Count (150-450) k/uL POC Glucose (mg/dL) 120 H 125 H 154 H (70-110) mg/dL Microbiology - Last 24 Hours (Table) 04/04/22 11:04 Blood Culture - Preliminary Blood No Growth after 24 hours 04/04/22 09:25 Urine Culture - Preliminary Urine,Voided Yeast species Assessment and Plan Plan: Suspected recurrent GI bleeding, patient got transferred to the intensive care unit on 04/04/2022 for passing a large blood clot, Hb is 7.8. The patient is currently having brown bowel movement activity. Awaiting a follow-up hemoglobin from today. No signs of GI bleed at least clinically. ICA and the patient is going to take regular diet. Acute sepsis secondary to UTI with Enterobacter with hypotension secondary to bacteremia/urinary tract infection with Enterobacter. The patient is currently on IV Zosyn, subsequent wound cultures came back positive for anaerobic gram- negative bacillus and the patient was placed on IV Zosyn. Infectious disease is on the case. altered mental status , recovered, back to normal Atrial flutter fibrillation/flutter , mild tachycardia she is on Po amiodarone and Lopressor, no anticoagulants due to episodic GIB, and the dose of metoprolol was increased up to 25 mg by mouth 3 times a day Leukocytosis GIB and the patient and an EGD (gastritis and esophagitis) on IV protonix Lumbar decompression/fusion , Noc . On 03/09/2022 she did require exploration and washout with dural repairs due to falls. Dural tear/leak and the patient had a drain that was removed and there is no ongoing leak at this point in time Cardiac arrest, brief pulseless electrical activity encountered in the operating room. Acute hypoxic/hypercapnic respiratory failure secondary to cardiac arrest/PEA. Morbid obesity, BMI of 43.0. History of right hemidiaphragm paralysis. History of right-sided breast cancer, previous lumpectomy. Dyslipidemia. Benign essential hypertension. diabetes mellitus, on a sliding scale coverage. CHF with an ejection fraction of 35-40% Fluid overload with increased lower extremity edema currently on PO Lasix 40 mg BID , The patient remains in negative fluid balance Plan Clinically stable No signs of any GI bleed Hold anticoagulants Continue PPIs Continue GoLYTELY We'll follow, and the patient can be transferred to medical surgical floor
--- NOTE | 2022-04-06 07:51 | P.PN ---
Subjective Progress Note Date: 04/05/22 Principal diagnosis: UTI and bacteremia Patient is a 71-year-old female with a past medical history difficult for atrial fibrillation flutter hypertension hyperlipidemia hypothyroidism right breast cancer electively admitted to the hospital more than 2 weeks ago 022 for T10 to lumbar spine revision decompression and posterior lateral interbody fusion, patient did have a episode of hypotension and elevated white count requiring admission to the ICU patient did have a positive UA and gram- negative bacteremia and is scheduled for exploration of the thoracolumbar incision completed on 03/09/2022 with apparently no evidence of any abscess On today's evaluation that is 04/05/2022 the patient remains to be afebrile , the patient is breathing comfortably on room air, the patient denies any chest pain some shortness of breath and abdominal discomfort and nausea but no vomiting and no diarrhea reported by the nursing staff Objective - Vital Signs Vital signs: Vital Signs Temp 97.5 F L 04/05/22 12:00 Pulse 110 H 04/05/22 13:00 Resp 18 04/05/22 13:00 BP 104/64 04/05/22 13:00 Pulse Ox 100 04/05/22 13:00 FiO2 2 04/04/22 05:29 Intake & Output 04/04/22 04/05/22 04/05/22 18:59 06:59 18:59 Intake Total 100 100 Output Total 110 610 350 Balance -10 610 -250 Weight 127.2 kg Intake: IV 100 100 Piperacillin-Tazobactam 3 100 100 .375 gm In Sodium Chloride 0.9% 100 ml @ 25 mls/hr IVPB Q8HR [facility] Rx# :[id number] Output: Urine 110 610 350 Other: Voiding Method Indwelling Catheter Indwelling Catheter Indwelling Catheter # Bowel Movements 1 1 ABP, PAP, CO, CI - Last Documented Arterial Blood Pressure 158/70 - Exam GENERAL DESCRIPTION: An elderly female lying in bed in no distress RESPIRATORY SYSTEM: Unlabored breathing , decreased breath sounds at bases HEART: S1 S2 regular rate and rhythm , ABDOMEN: Soft , no tenderness Lower lumbar spine incision site is currently dressed EXTREMITIES: Diffuse swelling bilateral lower extremity - Labs CBC & Chem 7: 04/05/22 14:06 04/04/22 22:14 Labs: Abnormal Lab Results - Last 24 Hours (Table) 04/04/22 04/04/22 04/04/22 Range/Units 16:26 20:27 22:14 WBC 22.7 H (3.8-10.6) k/uL RBC 2.54 L (3.80-5.40) m/uL Hgb 8.1 L (11.4-16.0) gm/dL Hct 23.7 L (34.0-46.0) % RDW 22.2 H (11.5-15.5) % Plt Count 129 L (150-450) k/uL POC Glucose (mg/dL) 167 H 145 H (70-110) mg/dL 04/05/22 04/05/22 04/05/22 Range/Units 06:49 08:10 12:08 WBC 20.7 H (3.8-10.6) k/uL RBC 2.39 L (3.80-5.40) m/uL Hgb 7.9 L (11.4-16.0) gm/dL Hct 22.4 L (34.0-46.0) % RDW 22.2 H (11.5-15.5) % Plt Count 121 L (150-450) k/uL POC Glucose (mg/dL) 141 H 131 H (70-110) mg/dL Microbiology - Last 24 Hours (Table) 04/04/22 11:04 Blood Culture - Preliminary Blood No Growth after 24 hours 04/04/22 09:25 Urine Culture - Preliminary Urine,Voided Yeast species Assessment and Plan (1) Sepsis Current Visit: Yes Status: Acute Code(s): A41.9 - SEPSIS, UNSPECIFIED ORGANISM SNOMED Code(s): 22027119 Plan: 1-patient with diarrhea seemed to have responded to Questran to continue, hold if no bowel movement for 24 hours 2elevated white count and concern for possible maceration of the lower end of the incision cultures obtained per hospitalist which are currently growing enterococcus and Pseudomonas along with anaerobe and Patsy possible colonization however the patient is high risk of infection as per discussion with the spine surgery. 3-patient now with episode of GI bleeding and required admission to the ICU/3 S. both surgery and GI rest following the patient closely Patient is currently afebrile did have worsening of the white count questionably related to the acute GI bleed versus a UTI cultures will be followed and antibiotic adjusted further if needed for now continue with the Zosyn Time with Patient: Less than 30
[2022-04-06] MEDS ORDERED: ANIDULAFUNGIN 200 MG in SODIUM CHLORIDE 0.9% 200 ML IVPB ONE (08:00)
[2022-04-06 08:21] LABS: Anisocytosis Moderate; Hyperchromasia Slight; Hypochromasia Slight; MCH 32.4 pg (25.0-35.0); MCHC 34.2 g/dL (31.0-37.0); MCV 94.9 fL (80.0-100.0); Macrocytosis Moderate; Mean Platelet Volume 10.7; Platelet Count 104 k/uL (150-450); Poikilocytosis Marked; RDW 23.9 % (11.5-15.5)
--- NOTE | 2022-04-06 08:21 | P.PN ---
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 Patient is resting in bed. She is currently in ICU hold waiting for a bed on 3S. Surgical dressing CDI. RN reports that patient had 1 small loose bowel movement w/o any signs of bleeding last night. Encouragement to increase activity today. She has been moved to a room with a zulema lift. Patient states she did sit at bedside last night and tolerated that well. She is looking forward to getting up in the chair today with PT. Once she is stable and cleared by medicine for discharge, we would like to get patient to rehab. She denies any fever/chills, nausea/vomiting or chest pain. Objective - Vital Signs Vital signs: Vital Signs Temp 98.5 F 04/06/22 02:00 Pulse 109 H 04/06/22 05:00 Resp 10 L 04/06/22 05:00 BP 102/59 04/06/22 05:00 Pulse Ox 99 04/06/22 05:00 FiO2 2 04/04/22 05:29 Intake & Output 04/05/22 04/05/22 04/06/22 06:59 18:59 06:59 Intake Total 200 300 Output Total 610 700 500 Balance -610 -500 -200 Intake: IV 200 300 Piperacillin-Tazobactam 3 200 100 .375 gm In Sodium Chloride 0.9% 100 ml @ 25 mls/hr IVPB Q8HR [facility] Rx# :[id number] Sodium Chloride 0.9% 1, 200 000 ml @ 10 mls/hr IV . Q24H [facility] Rx#:[id number] Output: Urine 610 700 500 Other: Voiding Method Indwelling Catheter Indwelling Catheter Indwelling Catheter # Bowel Movements 1 1 1 ABP, PAP, CO, CI - Last Documented Arterial Blood Pressure 158/70 - Exam PHYSICAL EXAMINATION: General: Awake, alert, appropriate for age, in no acute distress. HEENT: No changes Extremities: Skin warm and dry without no acute lesions, coloration, temperature, skin intact, no tenderness or erythema. Integument: Surgical incisions: Dressing CDI, Upper portion of incision and lower portion is well healed, sutures have been removed. Mid- portion remains sutured with maceration noted. Warren cath present Palpation: Special findings: mild discomfort with palpation of the right breast area with healing hematoma noted as well as anterior chest wall. VASCULAR STATUS : Wrist Pulses: [2/4 bilateral radial and ulnar] Pedal Pulses: [2/4 bilateral DP and PT] Color: [Normal] Edema: Improved in arms and hands. NEUROLOGIC EXAMINATION: Mental Status: Awake and alert, oriented,but slow with normal attention, concentration and memory, and fluent, she has slow speech Cranial Nerves: I: Olfactory not tested. II: Visual acuity normal, no visual field deficit noted with confrontation. III,IV: Normal pupillary reflexes & intact extraocular movements without nystagmus. V,: Intact symmetrical facial sensation. VII: Intact symmetrical facial motor movement VIII: Hearing intact. IX,X: Intact gag, swallow, & normal voice. XI: Sternocleidomastoid, trapezius function intact. XII: Tongue midline with normal movements. Special Tests: L'hermitte's Sign: Absent Straight Leg Raising: Absent Bilateral Motor Exam (0-5/5, N/T) STRENGTH 4- out of 5 strength in upper extremity's bilaterally all major muscle groups without focal deficits generalized weakness 3 to 5 strength bilateral lower extremities all major muscle groups with generalized weakness no focal deficits. She is weak in her hip flexors currently, bilateral quad muscles are engaging. REFLEXES Upper Extremity: RIGHT [2]/4 LEFT [2]/4 Lower Extremity: RIGHT [2]/4 LEFT [2]/4 Pathological Reflexes Warren's: RIGHT [Absent] LEFT [Absent] Babinski: RIGHT [Absent] LEFT [Absent] Clonus: RIGHT [None] LEFT [None] SENSORY Intact Gait and Functional Evaluation: Sit patient at bedside and increase physical activity as tolerated - Labs CBC & Chem 7: 04/05/22 14:06 04/04/22 22:14 Labs: Abnormal Lab Results - Last 24 Hours (Table) 04/05/22 04/05/22 04/05/22 Range/Units 06:49 08:10 12:08 WBC 20.7 H (3.8-10.6) k/uL RBC 2.39 L (3.80-5.40) m/uL Hgb 7.9 L (11.4-16.0) gm/dL Hct 22.4 L (34.0-46.0) % RDW 22.2 H (11.5-15.5) % Plt Count 121 L (150-450) k/uL POC Glucose (mg/dL) 141 H 131 H (70-110) mg/dL 04/05/22 04/05/22 04/05/22 Range/Units 14:06 17:15 21:38 WBC 21.5 H (3.8-10.6) k/uL RBC 2.36 L (3.80-5.40) m/uL Hgb 7.8 L (11.4-16.0) gm/dL Hct 22.1 L (34.0-46.0) % RDW 22.4 H (11.5-15.5) % Plt Count 117 L (150-450) k/uL POC Glucose (mg/dL) 120 H 125 H (70-110) mg/dL Microbiology - Last 24 Hours (Table) 04/04/22 11:04 Blood Culture - Preliminary Blood No Growth after 24 hours 04/04/22 09:25 Urine Culture - Preliminary Urine,Voided Yeast species Assessment and Plan Assessment: 1. Lumbar spondylosis; adjacent segment disease status post L2-L4 posterior fusion with proximal junctional failure; neurogenic claudication - Postoperative day #41 & 28 status post [id number] decompression and fusion with washout and revision dural repair -ABLA expected outcome of surgery as well as secondary to UGI bleed. Status post 7 units PRBC and 1 pack platelets -bilateral lower extremity weakness, status post multiple controlled falls in- house -Enterobacter sepsis, UTI -status post cardiac arrest Plan: -Appreciate presales consultant and team management PCC and medicine -Appreciate cardiothoracic, Gen. surgery, nephrology, ID evaluations -Awaiting Consult and recommendations from Wound Care -Continue Activity: Patient to be up in chair for all meals. Encourage to increase physical activity as tolerated. -Cont Abx for duration of stay -Caffiene daily 200 mg daily, Fioricet -Pain control: Adequate today ( Tylenol 1000 mg [facility], Oxy IR q6 hrs 10-15 mg titrated to pain (pt been on [place] for 20 yrs), Cont Gabapentin,) -Meds: reviewed -Trend labs -Transfusions to vitals -GI ppx: senna, Miralax -Cont with FBS -DVT PPX: Mechanical -Hygiene: Maintain incision clean and dry. Meticulous cleaning after BMs away from incision site The wound needs to be kept meticulously clean, and dry. -Encourage IS 10x/hr -Anticipate discharge to [facility] in the next 48 hours.
[2022-04-06 08:25] LABS: HCT 19.9 % (34.0-46.0); HGB 6.8 gm/dL (11.4-16.0)
[2022-04-06] MEDS: AMIODARONE 200 MG TAB PO SCH (08:42)
[2022-04-06] MEDS: MIDODRINE 5 MG TAB PO SCH ×3 (08:42→17:37)
[2022-04-06] MEDS: PIPERACILLIN-TAZOBACTAM 3.375 GM in SODIUM CHLORIDE 0.9% 100 ML IVPB SCH ×2 (08:42→17:36)
[2022-04-06] MEDS: PANTOPRAZOLE 40 MG/10 ML VIAL IVP SCH ×2 (08:43→20:58)
[2022-04-06] MEDS: DULoxetine HCL 60 MG CAPSULE.DR PO SCH (08:43)
[2022-04-06] MEDS: ATORVASTATIN 20 MG TAB PO SCH (08:43)
[2022-04-06] MEDS: GABAPENTIN 400 MG CAP PO SCH ×3 (08:43→20:59)
[2022-04-06] MEDS: METOPROLOL TARTRATE 25 MG TAB PO SCH ×3 (08:43→20:58)
[2022-04-06] MEDS: MAGNESIUM OXIDE 400 MG TAB PO SCH (08:43)
[2022-04-06] MEDS: FUROSEMIDE 40 MG TAB PO SCH (08:43)
[2022-04-06] MEDS: MAG HYDROX/AL HYDROX/SIMETH 30 ML, diphenhydrAMINE ELIXIR 75 MG, LIDOCAINE VISCOUS 2% 3... PO SCH ×9 (08:44→21:00)
[2022-04-06] MEDS: SODIUM BICARBONATE TAB 650 MG TAB PO SCH ×2 (08:44→20:59)
--- NOTE | 2022-04-06 09:13 | P.PN ---
Subjective Progress Note Date: 04/06/22 The patient is a 71-year-old female currently admitted to the hospital after undergoing lumbar surgery on February 24 for severe stenosis, mechanical low back pain, and neurogenic claudication. Postoperative complications include atrial fibrillation/atrial flutter and GI bleeding. Patient was interviewed lying in bed. She denies any chest pain or chest pressure. No difficulty breathing at rest. She has not gotten out of the bed, therefore cannot attest to any dizziness or lightheadedness. GENERAL: Ill-appearing, well-nourished and in no acute distress. NECK: Supple without JVD or thyromegaly. LUNGS: Breath sounds clear to auscultation bilaterally. Respiration equal and unlabored. No wheezes, rales or rhonchi. HEART: Regular rate and rhythm without murmurs, rubs or gallops. S1 and S2 heard. Notably tachycardic. EXTREMITIES: Normal range of motion, no edema. No clubbing or cyanosis. Erika pheral pulses intact and strong. VITALS: Heart rate 109, blood pressure 102/59, respiratory rate 12, SpO2 99% on 2 L, afebrile TELEMETRY: Atrial tachycardia with heart rates in the one-teens LABS: WBC 19.4, hemoglobin 6.8, hematocrit 19.9, platelet 104 IMPRESSION: Atrial tachycardia, 2-1 conduction Cardiomyopathy of unknown etiology Status post back surgery Postoperative GI bleeding Morbid obesity Hypertension Dyslipidemia History of atrial flutter status post ablation PLAN: Slowly increase metoprolol to 37.5mg TID Resume anticoagulation when cleared by gastroenterology Midodrine for systolic pressures >80mmhg Further recommendations to be based on clinical course I am dictating on behalf of Dr Preet Leger's history/physical and assessment/plan. Objective - Vital Signs Vital signs: Vital Signs Temp 98.5 F 04/06/22 02:00 Pulse 109 H 04/06/22 05:00 Resp 10 L 04/06/22 05:00 BP 102/59 04/06/22 05:00 Pulse Ox 99 04/06/22 05:00 FiO2 2 04/04/22 05:29 Intake & Output 04/05/22 04/06/22 04/06/22 18:59 06:59 18:59 Intake Total 200 780 Output Total 700 655 Balance -500 125 Intake: IV 200 380 Piperacillin-Tazobactam 3 200 100 .375 gm In Sodium Chloride 0.9% 100 ml @ 25 mls/hr IVPB Q8HR [facility] Rx# :[id number] Sodium Chloride 0.9% 1, 280 000 ml @ 10 mls/hr IV . Q24H [facility] Rx#:[id number] Oral 400 Output: Urine 700 655 Other: Voiding Method Indwelling Catheter Indwelling Catheter # Bowel Movements 1 1 ABP, PAP, CO, CI - Last Documented Arterial Blood Pressure 158/70 - Labs CBC & Chem 7: 04/06/22 07:36 04/04/22 22:14 Labs: Abnormal Lab Results - Last 24 Hours (Table) 04/05/22 04/05/22 04/05/22 Range/Units 12:08 14:06 17:15 WBC 21.5 H (3.8-10.6) k/uL RBC 2.36 L (3.80-5.40) m/uL Hgb 7.8 L (11.4-16.0) gm/dL Hct 22.1 L (34.0-46.0) % RDW 22.4 H (11.5-15.5) % Plt Count 117 L (150-450) k/uL POC Glucose (mg/dL) 131 H 120 H (70-110) mg/dL 04/05/22 04/06/22 04/06/22 Range/Units 21:38 06:57 07:36 WBC 19.4 H (3.8-10.6) k/uL RBC 2.10 L (3.80-5.40) m/uL Hgb 6.8 L* (11.4-16.0) gm/dL Hct 19.9 L* (34.0-46.0) % RDW 23.9 H (11.5-15.5) % Plt Count 104 L (150-450) k/uL POC Glucose (mg/dL) 125 H 154 H (70-110) mg/dL Microbiology - Last 24 Hours (Table) 04/04/22 11:04 Blood Culture - Preliminary Blood No Growth after 24 hours 04/04/22 09:25 Urine Culture - Preliminary Urine,Voided Yeast species
[2022-04-06 11:38] LABS: Glucose,Whole Blood 116 mg/dL (70-110)
[2022-04-06 14:00] LABS: Band Neutrophils % 1 %; Eosinophils # (M) 0.18 k/uL (0-0.7); Lymphocytes # (M) 2.72 k/uL (1.0-4.8); Metamyelocytes # (M) 0.18 k/uL (0); Metamyelocytes % 1 %; Monocytes # (M) 0.36 k/uL (0-1.0); Myelocytes # (M) 0.18 k/uL (0); Myelocytes % 1 %; Neutrophils % (M) 81 %; Nucleated Red Blood Cells 7 /100 WBC (0-0); Total Cells Counted 200; WBC 18.1 k/uL (3.8-10.6)
[2022-04-06 14:01] LABS: Polychromasia Present; Spherocytes Present
--- NOTE | 2022-04-06 15:11 | P.PN ---
Subjective Progress Note Date: 04/06/22 Principal diagnosis: UTI and bacteremia Patient is a 71-year-old female with a past medical history difficult for atrial fibrillation flutter hypertension hyperlipidemia hypothyroidism right breast cancer electively admitted to the hospital more than 2 weeks ago 022 for T10 to lumbar spine revision decompression and posterior lateral interbody fusion, patient did have a episode of hypotension and elevated white count requiring admission to the ICU patient did have a positive UA and gram- negative bacteremia and is scheduled for exploration of the thoracolumbar incision completed on 03/09/2022 with apparently no evidence of any abscess On today's evaluation that is 04/06/2022 the patient continues to be afebrile , the patient is breathing comfortably on 2 L nasal cannula, the patient denies any chest pain , shortness of breath and no significant cough, no abdominal discomfort did have some nausea but no vomiting and no diarrhea reported by the nursing staff Objective - Vital Signs Vital signs: Vital Signs Temp 98.5 F 04/06/22 02:00 Pulse 109 H 04/06/22 05:00 Resp 10 L 04/06/22 05:00 BP 102/59 04/06/22 05:00 Pulse Ox 97 04/06/22 10:49 FiO2 2 04/04/22 05:29 Intake & Output 04/05/22 04/06/22 04/06/22 18:59 06:59 18:59 Intake Total 200 780 Output Total 700 655 Balance -500 125 Intake: IV 200 380 Piperacillin-Tazobactam 3 200 100 .375 gm In Sodium Chloride 0.9% 100 ml @ 25 mls/hr IVPB Q8HR [facility] Rx# :[id number] Sodium Chloride 0.9% 1, 280 000 ml @ 10 mls/hr IV . Q24H [facility] Rx#:[id number] Oral 400 Output: Urine 700 655 Other: Voiding Method Indwelling Catheter Indwelling Catheter # Bowel Movements 1 1 ABP, PAP, CO, CI - Last Documented Arterial Blood Pressure 158/70 - Exam GENERAL DESCRIPTION: An elderly female lying in bed in no distress RESPIRATORY SYSTEM: Unlabored breathing , decreased breath sounds at bases HEART: S1 S2 regular rate and rhythm , ABDOMEN: Soft , no tenderness Lower lumbar spine incision site is currently dressed EXTREMITIES: Diffuse swelling bilateral lower extremity - Labs CBC & Chem 7: 04/06/22 07:36 04/04/22 22:14 Labs: Abnormal Lab Results - Last 24 Hours (Table) 04/05/22 04/05/22 04/05/22 Range/Units 12:08 14:06 17:15 WBC 21.5 H (3.8-10.6) k/uL RBC 2.36 L (3.80-5.40) m/uL Hgb 7.8 L (11.4-16.0) gm/dL Hct 22.1 L (34.0-46.0) % RDW 22.4 H (11.5-15.5) % Plt Count 117 L (150-450) k/uL POC Glucose (mg/dL) 131 H 120 H (70-110) mg/dL Crossmatch 04/05/22 04/06/22 04/06/22 Range/Units 21:38 06:57 07:36 WBC 19.4 H (3.8-10.6) k/uL RBC 2.10 L (3.80-5.40) m/uL Hgb 6.8 L* (11.4-16.0) gm/dL Hct 19.9 L* (34.0-46.0) % RDW 23.9 H (11.5-15.5) % Plt Count 104 L (150-450) k/uL POC Glucose (mg/dL) 125 H 154 H (70-110) mg/dL Crossmatch 04/06/22 Range/Units 09:28 WBC (3.8-10.6) k/uL RBC (3.80-5.40) m/uL Hgb (11.4-16.0) gm/dL Hct (34.0-46.0) % RDW (11.5-15.5) % Plt Count (150-450) k/uL POC Glucose (mg/dL) (70-110) mg/dL Crossmatch See Detail Microbiology - Last 24 Hours (Table) 04/04/22 11:04 Blood Culture - Preliminary Blood No Growth after 24 hours 04/04/22 09:25 Urine Culture - Preliminary Urine,Voided Yeast species Assessment and Plan (1) Sepsis Current Visit: Yes Status: Acute Code(s): A41.9 - SEPSIS, UNSPECIFIED ORGANISM SNOMED Code(s): 50539655 Plan: 1-patient with diarrhea seemed to have responded to Questran to continue, hold if no bowel movement for 24 hours 2elevated white count and concern for possible maceration of the lower end of the incision cultures obtained per hospitalist which are currently growing enterococcus and Pseudomonas along with anaerobe and Patsy possible colonization however the patient is high risk of infection as per discussion with the spine surgery. 3-patient now with episode of GI bleeding and required admission to the ICU/3 S. both surgery and GI rest following the patient closely 4urine cultures came back positive with patsy cannot use Diflucan because of the patient on the medication interacting RN has been advised to change the Fole y catheter obtain UA and cultures from the new Warren empirically add Eraxis Time with Patient: Less than 30
--- NOTE | 2022-04-06 15:19 | P.PN ---
Subjective Progress Note Date: 04/06/22 Principal diagnosis: cardiac arrest Hospital Course: Patient is a 71 yo CF with a hx of A fib s/p ablation, GERD, hypertension, dyslipidemia, and right diaphragmatic paralysis who presented for T10 to Pelvis decompression and fusion with revision. Course complicated by significant blood loss. Patient was on vasopressors, also received TXA gtt. She received 7 L of lactated Ringer's. She received 1 amp of sodium bicarb intaop. She also received albumin. Patient then had a cardiac arrest. During the case she developed A. fib with RVR and then quickly transitioned into bradycardia with a low end-tidal CO2. She received 0.4 of atropine and CPR was started. She received epinephrine 0.5. She achieved ROSC. Total down time was less than 5 minutes. She was extubated on 02/25. She continued to do well with struggled with pain. She was downgraded from ICU on 03/03. On 03/06/22 patient was noted to have a significant drop in hemoglobin from 10.0 down to 7.5 and upon reevaluation on 03/07 was found to have hemoglobin of 5.4, patient required multiple transf usions. She has received a total of 7 units PRBCs and 1 unit of platelets. She underwent a CT abdomen and pelvis and was found to have a large right chest hematoma dilated small bowel concerning for ileus. Patient was evaluated by cardiothoracic surgery and they recommended conservative management. On 03/07, patient was noted to be hypotensive with elevated WBC count of 42.3, with worsening renal function and hyperkalamia. Patient was treated with NS bolus, IV insulin/D50, Albuterol and sodium bicarbonate. She was transferred back to the ICU for septic shock requiring Levophed. Patient was started on Vancomycin and Cefepime. Blood and urine cultures were obtained and positive for Enterobacter. Infectious disease was consulted and patient was continued on Cefepime for treatment of Enterobacter UTI with secondary bacteremia and Vancomycin was discontinued. Patient was later weaned off of vasopressors and again transferred out of the ICU. Patient was started on Lasix for treatment of acute on chronic systolic heart failure with EF of 35-40%. Patient continued on Protonix for GI prophylaxis, amiodarone and metoprolol for atrial fibrillation with RVR sodium bicarb for treatment of metabolic acidosis. Pt's Xarelto remains hold at this time. Patient was evaluated by PMR and is currently not a candidate for inpatient rehab. She has been cleared by orthopedic surgery to start working with physical therapy and current plans are for [facility]. On 03/26/22 patient was again found to have elevating leukocytosis and repeat Wound cultures were obtained. Wound cultures were positive for pseudomonas aeruginosa, enterococcus fasciculus, and Patsy albicans. Patient to continue with Zosyn per culture and sensitivity report and as recommended by infectious disease as this may be contamination/colonization however patient is a high risk of infection so we will continue with empiric antibiotic therapy. Nursing staff reported overnight on 03/28/22 patient again developed episodes of melena and at that time Dr. Holden tineo, general surgeon was re-consulted. Upon assessment morning 03/29. Patient complaining of left upper and left lower quadrant abdominal pain and new-onset. Stat orders place. CT abdomen and pelvis, unable to use contrast as patient reports ALLERGIC reaction includes rash/hives and hypotension. Due to patient's recurrent episodes of hypotension will err on the side of caution and complete imaging without contrast. CT abdomen and pelvis revealing bilateral hydronephrosis unable to rule out obstructive etiology, concerns for fecal impaction, and persistent previously known right anterior chest wall hematoma. General surgery following and reevaluated patient secondary to concerns of fecal impaction and started patient on lactulose. Warern catheter was inserted secondary to bilateral hydronephrosis and patient was evaluated by urologist recommending continuation of Warren catheter as bilateral hydronephrosis is believed to be resulting secondary to urinary retention. On the evening of 04/03/21 patient with continued atrial tachycardia and hypotension and unable to take metoprolol secondary to low blood pressures. RN reports patient had episode of hematochezia along with large blood clot and was transferred to stepdown unit. Patient currently residing in ICU overflow while awaiting an available bed on . Patient seen by general surgery. Had bedside manual disimpaction. Also has a posterior anal fissure. On a bowel regimen. Hemoglobin continues to down trend. Requiring another 1 unit of PRBCs. Subjective: Patient seen and examined at bedside. No acute events overnight. Patient denies any significant chest pain, shortness of breath, abdominal pain, nausea, vomiting. She claims that she had 1 bowel movement yesterday, no blood noted. Continues to have a Warren catheter in place. Remains tachycardic up to 110s. Awaiting bed on 3 . Pertinent positives and negatives as discussed above, a complete review of systems was performed and all other systems are negative. Vitals Signs Reviewed. General: ill appearing, no acute distress, appears at stated age, Derm: warm, dry. Postsurgical dressing clean, dry, and intact this morning. Head: atraumatic, normocephalic, symmetric Eyes: EOMI, no lid lag, anicteric sclera Mouth: no lip lesion, dry membranes moist Cardiovascular: S1S2 irregular, tachycardic, no murmur Lungs: Respirations even, regular, and unlabored on room air. Lungs clear to auscultation bilaterally , 2 L Ext: no gross muscle atrophy, no edema, no contractures Abd: Warren catheter in place. Obese. Non tender to palpation. Neuro: Moving all 4 extremities independently, sensation and movement equal and intact in bilateral upper and lower extremities. Patient continues with equal Bilateral lower extremity weakness unable to lift legs off the bed independently. Psych:: Patient with depressed affect, she is pleasant and cooperative. Assessment and Plan: GI bleeding with reports of hematochezia and large clots Left upper and lower quadrant abdominal pain Fecal impaction, status post manual disimpaction Anal fissure -CT abdomen and pelvis concerning for possible fecal impaction. -Gen. surgery was consulted for reevaluation -Continue with Protonix 40 mg IVP twice daily -Hemoglobin continues to down trend -Requiring another 1 unit of PRBCs today -On bowel regimen Atrial tachycardia/fibrillation with RVR Hypotension Status post Cardiac arrest with ROSC Acute on chronic systolic heart failure -Cardiology following -Continuous telemetry monitoring. -Oral amiodarone and metoprolol tartrate (slowly increase) -On oral diuretics -also on Midodrine -Holding anticoagulation due to ongoing GI bleed Septic shock resulting from Enterobacter cloacae UTI with secondary bacteremia Enterobacter cloacae UTI with secondary bacteremia Lactic acidosis Leukocytosis East UTI -Blood cultures + Enterobacter cloacae. Repeat blood cultures negative on 03/07/22 and 03/26/22. -Urine culture + Enterobacter cloacae. Patient completed course of antibiotics with cefepime. -Wound cultures 03/26/22 are positive for pseudomonas aeruginosa, enterococcus fasciculus, and Patsy albicans. Continue with Zosyn and per positivity report as recommended by infectious disease as this may be contamination/colonization however patient is a high risk of infection so we will continue with empiric antibiotic therapy. -Repeat urinalysis completed 04/04/22 positive for infection with 87 WBCs, 12 RBCs, and leukocyte esterase. -Infectious disease following and managing antibiotic course at this time. Patient remains on Zosyn -ID started Eraxis Bilateral hydronephrosis, likely secondary to urinary retention -CT abdomen and pelvis revealing bilateral hydronephrosis unable to rule out obstructive etiology. -Renal function stable -Urology following, recommending continuation of Warren catheter Prerenal azotemia, improving Hyponatremia, improving Hyperkalemia, resolved after discontinuation of Aldactone and lisinopril Metabolic acidosis, resolved -Na 135, BUN 28 -Continue sodium bicarb 650 mg twice a day -Nephrology following. Prediabetes with hyperglycemia, now hypoglycemia -Likely steroid induced -A1c is 6 -Continue with sliding scale Right breast hematoma - stable T10 to pelvis decompression with fusion Post-op pain -Management per primary admitting Orthopedic surgery team including DVT prophylaxis, pain management, wound/dressing care, weightbearing, and PT/OT . -Continue Gabapentin, Valium, Flexeril. -Decadron discontinued on 03/28/22 -PT/OT following. -Plan is for discharge to [facility] for rehab Right diaphragmatic paralysis -Pulmonology following and cleared patient from their perspective on 03/22/22 Hyperlipidemia -Continue daily medication regimen with atorvastatin. History of hypertension -Currently On Midodrine for episodes of hypotension Transaminitis -Likely ischemic hepatitis. -Resolved Thank you for allowing us to participate in the care of this pleasant patient. Do not hesitate to contact us with questions. Someone can be reached from the [facility] hospitalist group all hours of the day at [phone] or via perfect serve. Objective - Vital Signs Vital signs: Vital Signs Temp 98.0 F 04/06/22 14:46 Pulse 105 H 04/06/22 14:46 Resp 13 04/06/22 14:46 BP 116/60 04/06/22 14:46 Pulse Ox 97 04/06/22 14:46 FiO2 2 04/04/22 05:29 Intake & Output 04/05/22 04/06/22 04/06/22 18:59 06:59 18:59 Intake Total 781 232 9770 Output Total 700 655 190 Balance -381 983 5670 Intake: IV 200 380 500 Piperacillin-Tazobactam 3 200 100 100 .375 gm In Sodium Chloride 0.9% 100 ml @ 25 mls/hr IVPB Q8HR [facility] Rx# :[id number] Sodium Chloride 0.9% 1, 280 400 000 ml @ 10 mls/hr IV . Q24H [facility] Rx#:[id number] Oral 400 200 Blood Product 548 Rc Pheresis 2 As3 Unit 274 [id number] Output: Urine 700 655 190 Other: Voiding Method Indwelling Catheter Indwelling Catheter Indwelling Catheter # Bowel Movements 1 1 1 ABP, PAP, CO, CI - Last Documented Arterial Blood Pressure 158/70 - Labs CBC & Chem 7: 04/06/22 07:36 04/04/22 22:14 Labs: Abnormal Lab Results - Last 24 Hours (Table) 04/05/22 04/05/22 04/06/22 Range/Units 17:15 21:38 06:57 WBC (3.8-10.6) k/uL RBC (3.80-5.40) m/uL Hgb (11.4-16.0) gm/dL Hct (34.0-46.0) % RDW (11.5-15.5) % Plt Count (150-450) k/uL Neutrophils # (Manual) (1.3-7.7) k/uL Metamyelocytes # (Man) (0) k/uL Myelocytes # (Manual) (0) k/uL Nucleated RBCs (0-0) /100 WBC POC Glucose (mg/dL) 120 H 125 H 154 H (70-110) mg/dL Crossmatch 04/06/22 04/06/22 04/06/22 Range/Units 07:36 09:28 11:37 WBC 18.1 H (3.8-10.6) k/uL RBC 2.10 L (3.80-5.40) m/uL Hgb 6.8 L* (11.4-16.0) gm/dL Hct 19.9 L* (34.0-46.0) % RDW 23.9 H (11.5-15.5) % Plt Count 104 L (150-450) k/uL Neutrophils # (Manual) 14.80 H (1.3-7.7) k/uL Metamyelocytes # (Man) 0.18 H (0) k/uL Myelocytes # (Manual) 0.18 H (0) k/uL Nucleated RBCs 7 H (0-0) /100 WBC POC Glucose (mg/dL) 116 H (70-110) mg/dL Crossmatch See Detail Microbiology - Last 24 Hours (Table) 04/04/22 11:04 Blood Culture - Preliminary Blood No Growth after 48 hours 04/04/22 09:25 Urine Culture - Final Urine,Voided Patsy albicans
--- NOTE | 2022-04-06 15:28 | P.PN ---
Subjective Progress Note Date: 04/06/22 CHIEF COMPLAINT: Spinal surgery HISTORY OF PRESENT ILLNESS: Surgical service following regards to GI bleed. Patient remains in the ICU as a select care overflow. Patient had evidence of a posterior anal fissure. Patient denies any abdominal pain. Her bowel movements have been brown. She had for small bowel movement bowel movement yesterday. No bowel movement reported for today. She does complain of back pain. Her hemoglobin did drop from 7.8-6.8. She is going to receive a unit of blood today . Afebrile. Mildly tachycardic. WBC is down from 21-18 hemoglobin 6.8 platelets 104 PHYSICAL EXAM: VITAL SIGNS: Reviewed. GENERAL: Well-developed in no acute distress. HEENT: No sclera icterus. Extraocular movements grossly intact. Moist buccal mucosa. Head is atraumatic, normocephalic. ABDOMEN: Soft. Obese. Nondistended. Nontender NEUROLOGIC: Sleeping comfortably ASSESSMENT: 1. Acute GI bleed likely due to bleeding from posterior anal fissure 2. Fecal impaction 3. Lumbar decompression/fusion and then with washout and dural repair 4. Cardiac arrest 5. EGD on 03/19/2022 that showed mild gastritis and esophagitis no active bleeding PLAN: -Transfuse 1 unit of blood -Repeat hemoglobin in a.m. -Continue GoLYTELY bowel prep to help with the rectal stool burden -Continue to monitor hemoglobin -Continue monitoring for any signs or symptoms of bleeding -Continue PPI -Continue to hold anticoagulation -Continue IV fluids Physician Door Attendant note has been reviewed by physician. Signing provider agrees with the documented findings, assessment, and plan of care. I have personally seen and examined the patient, reviewed the SECOND TIME WORKER /PAs history, exam and MDM and agree with the assessment and plan as written. Based on total visit time, I have performed more than 50% of the visit. As above: Patient has not unfortunately taken and much of her GoLYTELY yesterday or today. She did have a small formed bowel movement today. I do believe she still has some degree of constipation and impaction. Thankfully no further bleeding. Continue stool softeners. Will follow. Objective - Vital Signs Vital signs: Vital Signs Temp 98.0 F 04/06/22 14:46 Pulse 105 H 04/06/22 14:46 Resp 13 04/06/22 14:46 BP 116/60 04/06/22 14:46 Pulse Ox 97 04/06/22 14:46 FiO2 2 04/04/22 05:29 Intake & Output 04/05/22 04/06/22 04/06/22 18:59 06:59 18:59 Intake Total 044 589 2093 Output Total 700 655 190 Balance -914 610 6977 Intake: IV 200 380 500 Piperacillin-Tazobactam 3 200 100 100 .375 gm In Sodium Chloride 0.9% 100 ml @ 25 mls/hr IVPB Q8HR [facility] Rx# :[id number] Sodium Chloride 0.9% 1, 280 400 000 ml @ 10 mls/hr IV . Q24H [facility] Rx#:[id number] Oral 400 200 Blood Product 548 Rc Pheresis 2 As3 Unit 274 [id number] Output: Urine 700 655 190 Other: Voiding Method Indwelling Catheter Indwelling Catheter Indwelling Catheter # Bowel Movements 1 1 1 ABP, PAP, CO, CI - Last Documented Arterial Blood Pressure 158/70 - Labs CBC & Chem 7: 04/06/22 07:36 04/04/22 22:14 Labs: Abnormal Lab Results - Last 24 Hours (Table) 04/05/22 04/05/22 04/06/22 Range/Units 17:15 21:38 06:57 WBC (3.8-10.6) k/uL RBC (3.80-5.40) m/uL Hgb (11.4-16.0) gm/dL Hct (34.0-46.0) % RDW (11.5-15.5) % Plt Count (150-450) k/uL Neutrophils # (Manual) (1.3-7.7) k/uL Metamyelocytes # (Man) (0) k/uL Myelocytes # (Manual) (0) k/uL Nucleated RBCs (0-0) /100 WBC POC Glucose (mg/dL) 120 H 125 H 154 H (70-110) mg/dL Crossmatch 04/06/22 04/06/22 04/06/22 Range/Units 07:36 09:28 11:37 WBC 18.1 H (3.8-10.6) k/uL RBC 2.10 L (3.80-5.40) m/uL Hgb 6.8 L* (11.4-16.0) gm/dL Hct 19.9 L* (34.0-46.0) % RDW 23.9 H (11.5-15.5) % Plt Count 104 L (150-450) k/uL Neutrophils # (Manual) 14.80 H (1.3-7.7) k/uL Metamyelocytes # (Man) 0.18 H (0) k/uL Myelocytes # (Manual) 0.18 H (0) k/uL Nucleated RBCs 7 H (0-0) /100 WBC POC Glucose (mg/dL) 116 H (70-110) mg/dL Crossmatch See Detail Microbiology - Last 24 Hours (Table) 04/04/22 11:04 Blood Culture - Preliminary Blood No Growth after 48 hours 04/04/22 09:25 Urine Culture - Final Urine,Voided Patsy albicans
[2022-04-06 16:44] LABS: Glucose,Whole Blood 169 mg/dL (70-110)
[2022-04-06 17:50] LABS: Glucose,Whole Blood 156 mg/dL (70-110)
[2022-04-06 19:30] LABS: Anisocytosis Moderate; HCT 21.2 % (34.0-46.0); HGB 7.6 gm/dL (11.4-16.0); Hyperchromasia Slight; Hypochromasia Slight; MCH 32.2 pg (25.0-35.0); MCHC 35.9 g/dL (31.0-37.0); Macrocytosis Slight; Mean Platelet Volume 11.2; Poikilocytosis Marked; RBC 2.37 m/uL (3.80-5.40); RDW 23.4 % (11.5-15.5)
[2022-04-06 19:33] LABS: MCV 89.7 fL (80.0-100.0); Platelet Count 97 k/uL (150-450)
[2022-04-06 20:23] LABS: Glucose,Whole Blood 141 mg/dL (70-110)
[2022-04-06] MEDS: CYCLOBENZAPRINE 10 MG TAB PO PRN (21:00)
[2022-04-06] MEDS: HYDROcodone/APAP 10-325MG 1 EACH TAB PO PRN (21:02)
[2022-04-07] MEDS: ACETAMINOPHEN TAB 500 MG TAB PO SCH ×4 (00:24→18:24)
[2022-04-07] MEDS: PIPERACILLIN-TAZOBACTAM 3.375 GM in SODIUM CHLORIDE 0.9% 100 ML IVPB SCH ×3 (00:25→18:23)
[2022-04-07 01:38] LABS: Appearance,Urine Cloudy (Clear); Bacteria,Urine Rare /hpf; Bilirubin,Urine Negative (Negative); Blood,Urine Negative (Negative); Budding Yeast,Urine Rare /hpf; Color,Urine Yellow; Glucose,Urine (UA) Negative (Negative); Ketones,Urine Trace (Negative); Leukocyte Esterase,Urine Large (Negative); Mucus,Urine Rare /hpf; Nitrite,Urine Negative (Negative); Protein,Urine Trace (Negative); RBC,Urine 1 /hpf (0-5); Specific Gravity,Urine 1.026 (1.001-1.035); Squamous Epithelial Cell,Urine 1 /hpf (0-4); WBC,Urine 121 /hpf (0-5)
[2022-04-07 06:21] LABS: Glucose,Whole Blood 144 mg/dL (70-110)
[2022-04-07] MEDS: SODIUM CHLORIDE 0.9% 1,000 ML IV SCH (06:34)
[2022-04-07] MEDS: LEVOTHYROXINE 88 MCG TAB PO SCH (06:36)
[2022-04-07] MEDS: MIDODRINE 5 MG TAB PO SCH ×3 (06:36→18:22)
[2022-04-07] MEDS: INSULIN ASPART (NovoLOG) 100 UNIT/ML VIAL SQ SCH ×4 (06:37→22:36)
[2022-04-07 07:02] LABS: Anisocytosis Marked; HCT 21.1 % (34.0-46.0); HGB 7.2 gm/dL (11.4-16.0); Hypochromasia Moderate; MCH 31.9 pg (25.0-35.0); Macrocytosis Slight; Mean Platelet Volume 10.3; Poikilocytosis Marked; RBC 2.24 m/uL (3.80-5.40); RDW 24.3 % (11.5-15.5)
[2022-04-07 07:10] LABS: African American GFR (CKD) >90 (>60 ml/min/1.73 sqM); Anion Gap 2 mmol/L; Blood Urea Nitrogen 33 mg/dL (7-17); Carbon Dioxide 30 mmol/L (22-30); Chloride 98 mmol/L (98-107); Glucose 111 mg/dL (74-99); Non-African American GFR(CKD) >90 (>60 ml/min/1.73 sqM); Potassium 3.3 mmol/L (3.5-5.1); Sodium 130 mmol/L (137-145)
--- NOTE | 2022-04-07 07:18 | P.PN ---
Subjective Progress Note Date: 04/07/22 On 04/05/2022, the patient is resting comfortably in bed. No significant complaints. The patient got transferred back to the intensive care unit for suspected GI bleed. Surgical services will again reconsulted. The patient had further evaluation and the patient was found to have an evidence of a posterior fissure. The patient's continued to have brown all movements. She has no nausea or vomiting. No abdominal pain. She was given GoLYTELY yesterday. Her WBC count at 20.7. Hemoglobin is at 7.9. She is afebrile. Her lower extremity edema has improved considerably the patient is currently on oral Lasix. She is post lumbar decompression/fusion with subsequent ureteral repair. Her previous EGD that was done on 03/19/2022 showed mild gastritis and esophagitis without evidence of any bleeding. The patient remains on PPI and the patient is on no anticoagulants for now. Cardiac rhythm is controlled A. fib/flutter. On 04/06/2022, the patient is awake. She did not show any further signs of GI bleed. Hemoglobin currently is at 7.8 and this was the last reading from yesterday and a follow-up hemoglobin is pending from today. Meanwhile, the patient is having regular diet. Her oral intake is quite diminished and the patient feels quite depressed. She had brownish bowel movement yesterday. Hemodynamically she is stable. No pressors. She is on 1 L of O2 nasal cannula. No fever. No chills. Profoundly weak in the lower extremities, motor strength is better than the upper extremity. She is communicating. Her cardiac rhythm is normal sinus although she has had episodes of tachycardia with A. fib/flutter. No IV drug use has been use. She is on a proton pump inhibitor and she is currently on Protonix 40 mg IV every 12 hours. No significant issues with pain. 04/07/2022, no evidence of any GI bleeding and the patient had another small bowel movement yesterday. Hemoglobin has remained stable. Most recent hemoglobin level is at 7.6 from yesterday. A repeat level needs to be done. Meanwhile, there is a concern for a candidal UTI. UA was abnormal. Urine cultu re was positive for Patsy and the patient was started on Eraxis by infectious disease. Warren catheter was also replaced. Electrolytes are stable, potassium is to be replaced at 3.3 and the sodium is at 1:30, B is a 33 with a creatinine of 0.6. IV fluids are in the form of normal saline at the rate of 50 mL an hour. CBC from today is still pending. Most recent numbers echoes at 21.0. Her cardiac rhythm is atrial tachycardia/flutter, 2:1. Objective - Vital Signs Vital signs: Vital Signs Temp 97.8 F 04/07/22 03:00 Pulse 110 H 04/07/22 06:00 Resp 12 04/07/22 06:00 BP 105/89 04/07/22 06:00 Pulse Ox 97 04/07/22 03:00 FiO2 2 04/04/22 05:29 Intake & Output 04/06/22 04/07/22 04/07/22 18:59 06:59 18:59 Intake Total 1248 600 Output Total 190 225 Balance 1058 375 Intake: IV 500 450 Piperacillin-Tazobactam 3 100 .375 gm In Sodium Chloride 0.9% 100 ml @ 25 mls/hr IVPB Q8HR [facility] Rx# :[id number] Sodium Chloride 0.9% 1, 400 450 000 ml @ 10 mls/hr IV . Q24H [facility] Rx#:[id number] Oral 200 150 Blood Product 548 Rc Pheresis 2 As3 Unit 274 [id number] Output: Urine 190 225 Other: Voiding Method Indwelling Catheter Indwelling Catheter # Bowel Movements 1 1 ABP, PAP, CO, CI - Last Documented Arterial Blood Pressure 158/70 - Exam No acute distress, oriented 3. Currently on room air oxygen and the patient is calm and comfortable. Head exam was generally normal. There was no scleral icterus or corneal arcus. Mucous membranes were moist. HEENT examination is grossly unremarkable. Neck supple. Full range of motion. No adenopathy thyromegaly or neck vein distention. Cardiovascular examination reveals regular rhythm rate. S1-S2 normal. No S3 or S4. No discernible murmur noted. Heart sounds are distant. Lungs reveal clear breath sounds. Breath sounds are equal bilaterally. No adventitious lung sounds including wheezes rhonchi or crackles. Abdomen soft bowel sounds are heard. No masses or tenderness. Extremities are intact. Slight edema of the extremities. No cyanosis or clubbing. Skin is without rash or lesion. Large hematoma about the right breast. Neurologic examination is brief but nonfocal. The patient's strength is quite diminished in lower extremity bilaterally. Please refer to the spine surgeons evaluation regarding the motor function and reflexes. Cranial nerves are essentially intact and the patient is awake and alert. She is also oriented. - Labs CBC & Chem 7: 04/06/22 19:12 04/07/22 06:17 Labs: Abnormal Lab Results - Last 24 Hours (Table) 04/06/22 04/06/22 04/06/22 Range/Units 07:36 09:28 11:37 WBC 18.1 H (3.8-10.6) k/uL RBC 2.10 L (3.80-5.40) m/uL Hgb 6.8 L* (11.4-16.0) gm/dL Hct 19.9 L* (34.0-46.0) % RDW 23.9 H (11.5-15.5) % Plt Count 104 L (150-450) k/uL Neutrophils # (Manual) 14.80 H (1.3-7.7) k/uL Metamyelocytes # (Man) 0.18 H (0) k/uL Myelocytes # (Manual) 0.18 H (0) k/uL Nucleated RBCs 7 H (0-0) /100 WBC Sodium (137-145) mmol/L Potassium (3.5-5.1) mmol/L BUN (7-17) mg/dL Glucose (74-99) mg/dL POC Glucose (mg/dL) 116 H (70-110) mg/dL Calcium (8.4-10.2) mg/dL Urine Appearance (Clear) Urine Protein (Negative) Urine Ketones (Negative) Ur Leukocyte Esterase (Negative) Urine WBC (0-5) /hpf Urine WBC Clumps (None) /hpf Urine Bacteria (None) /hpf Urine Mucus (None) /hpf Urine Yeast (Budding) (None) /hpf Crossmatch See Detail 04/06/22 04/06/22 04/06/22 Range/Units 16:43 17:49 19:12 WBC 21.0 H (3.8-10.6) k/uL RBC 2.37 L (3.80-5.40) m/uL Hgb 7.6 L (11.4-16.0) gm/dL Hct 21.2 L (34.0-46.0) % RDW 23.4 H (11.5-15.5) % Plt Count 97 L (150-450) k/uL Neutrophils # (Manual) (1.3-7.7) k/uL Metamyelocytes # (Man) (0) k/uL Myelocytes # (Manual) (0) k/uL Nucleated RBCs (0-0) /100 WBC Sodium (137-145) mmol/L Potassium (3.5-5.1) mmol/L BUN (7-17) mg/dL Glucose (74-99) mg/dL POC Glucose (mg/dL) 169 H 156 H (70-110) mg/dL Calcium (8.4-10.2) mg/dL Urine Appearance (Clear) Urine Protein (Negative) Urine Ketones (Negative) Ur Leukocyte Esterase (Negative) Urine WBC (0-5) /hpf Urine WBC Clumps (None) /hpf Urine Bacteria (None) /hpf Urine Mucus (None) /hpf Urine Yeast (Budding) (None) /hpf Crossmatch 04/06/22 04/06/22 04/07/22 Range/Units 20:21 23:53 06:17 WBC (3.8-10.6) k/uL RBC (3.80-5.40) m/uL Hgb (11.4-16.0) gm/dL Hct (34.0-46.0) % RDW (11.5-15.5) % Plt Count (150-450) k/uL Neutrophils # (Manual) (1.3-7.7) k/uL Metamyelocytes # (Man) (0) k/uL Myelocytes # (Manual) (0) k/uL Nucleated RBCs (0-0) /100 WBC Sodium 130 L (137-145) mmol/L Potassium 3.3 L (3.5-5.1) mmol/L BUN 33 H (7-17) mg/dL Glucose 111 H (74-99) mg/dL POC Glucose (mg/dL) 141 H (70-110) mg/dL Calcium 7.0 L (8.4-10.2) mg/dL Urine Appearance Cloudy H (Clear) Urine Protein Trace H (Negative) Urine Ketones Trace H (Negative) Ur Leukocyte Esterase Large H (Negative) Urine WBC 121 H (0-5) /hpf Urine WBC Clumps Moderate H (None) /hpf Urine Bacteria Rare H (None) /hpf Urine Mucus Rare H (None) /hpf Urine Yeast (Budding) Rare H (None) /hpf Crossmatch 04/07/22 Range/Units 06:20 WBC (3.8-10.6) k/uL RBC (3.80-5.40) m/uL Hgb (11.4-16.0) gm/dL Hct (34.0-46.0) % RDW (11.5-15.5) % Plt Count (150-450) k/uL Neutrophils # (Manual) (1.3-7.7) k/uL Metamyelocytes # (Man) (0) k/uL Myelocytes # (Manual) (0) k/uL Nucleated RBCs (0-0) /100 WBC Sodium (137-145) mmol/L Potassium (3.5-5.1) mmol/L BUN (7-17) mg/dL Glucose (74-99) mg/dL POC Glucose (mg/dL) 144 H (70-110) mg/dL Calcium (8.4-10.2) mg/dL Urine Appearance (Clear) Urine Protein (Negative) Urine Ketones (Negative) Ur Leukocyte Esterase (Negative) Urine WBC (0-5) /hpf Urine WBC Clumps (None) /hpf Urine Bacteria (None) /hpf Urine Mucus (None) /hpf Urine Yeast (Budding) (None) /hpf Crossmatch Microbiology - Last 24 Hours (Table) 04/04/22 11:04 Blood Culture - Preliminary Blood No Growth after 48 hours 04/04/22 09:25 Urine Culture - Final Urine,Voided Patsy albicans Assessment and Plan Plan: Suspected recurrent GI bleeding, patient got transferred to the intensive care unit on 04/04/2022 for passing a large blood clot, Hb is 7.8. The patient is currently having brown bowel movement activity. Awaiting a follow-up hemoglobin from today. No signs of GI bleed at least clinically. ICA and the patient is going to take regular diet. Acute sepsis secondary to UTI with Enterobacter with hypotension secondary to bacteremia/urinary tract infection with Enterobacter. The patient is currently on IV Zosyn, subsequent wound cultures came back positive for anaerobic gram- negative bacillus and the patient was placed on IV Zosyn. Infectious disease is on the case. Prolonged Warren catheterization and suspected candidal UTI altered mental status , recovered, back to normal Atrial flutter fibrillation/flutter , mild tachycardia she is on Po amiodarone and Lopressor, no anticoagulants due to episodic GIB, and the dose of metoprolol was increased up to 25 mg by mouth 3 times a day Leukocytosis GIB and the patient and an EGD (gastritis and esophagitis) on IV protonix Lumbar decompression/fusion , Noc . On 03/09/2022 she did require exp loration and washout with dural repairs due to falls. Dural tear/leak and the patient had a drain that was removed and there is no ongoing leak at this point in time Cardiac arrest, brief pulseless electrical activity encountered in the operating room. Acute hypoxic/hypercapnic respiratory failure secondary to cardiac arrest/PEA. Morbid obesity, BMI of 43.0. History of right hemidiaphragm paralysis. History of right-sided breast cancer, previous lumpectomy. Dyslipidemia. Benign essential hypertension. diabetes mellitus, on a sliding scale coverage. CHF with an ejection fraction of 35-40% Fluid overload with increased lower extremity edema currently on PO Lasix 40 mg BID , The patient remains in negative fluid balance Leukocytosis Plan Eraxis was started by infectious disease Continue Zosyn Warren catheter replaced Monitor white cell count Clinically stable No signs of any GI bleed Hold anticoagulants Continue PPIs Continue GoLYTELY We'll follow, and the patient can be transferred to medical surgical floor
[2022-04-07 08:00] LABS: Platelet Count 92 k/uL (150-450)
[2022-04-07] MEDS: ATORVASTATIN 20 MG TAB PO SCH (09:23)
[2022-04-07] MEDS: SODIUM BICARBONATE TAB 650 MG TAB PO SCH ×2 (09:23→21:26)
[2022-04-07] MEDS: FUROSEMIDE 40 MG TAB PO SCH (09:23)
[2022-04-07] MEDS: DULoxetine HCL 60 MG CAPSULE.DR PO SCH (09:23)
[2022-04-07] MEDS: METOPROLOL TARTRATE 25 MG TAB PO SCH (09:23)
[2022-04-07] MEDS: MAGNESIUM OXIDE 400 MG TAB PO SCH (09:23)
[2022-04-07] MEDS: AMIODARONE 200 MG TAB PO SCH (09:23)
[2022-04-07] MEDS: POTASSIUM BICARBONATE/CIT AC 20 MEQ TABLET.EFF NG-TUBE SCH ×2 (09:24→11:19)
[2022-04-07] MEDS: GABAPENTIN 400 MG CAP PO SCH ×3 (09:24→21:26)
[2022-04-07] MEDS: LACTULOSE 20 GM/30 ML CUP PO SCH ×2 (09:24→21:46)
[2022-04-07] MEDS: HYDROcodone/APAP 10-325MG 1 EACH TAB PO PRN (09:24)
[2022-04-07] MEDS: PANTOPRAZOLE 40 MG/10 ML VIAL IVP SCH ×2 (09:26→21:26)
--- NOTE | 2022-04-07 09:56 | P.PN ---
Subjective Progress Note Date: 04/07/22 The patient is a 71-year-old female currently admitted to the hospital after undergoing lumbar surgery on February 24 for severe stenosis, mechanical low back pain, and neurogenic claudication. Postoperative complications include atrial fibrillation/atrial flutter and GI bleeding. Patient was interviewed lying in bed. She denies any chest pain or chest pressure. No difficulty breathing at rest. She has not gotten out of the bed, therefore cannot attest to any dizziness or lightheadedness. GENERAL: Ill-appearing, well-nourished and in no acute distress. NECK: Supple without JVD or thyromegaly. LUNGS: Breath sounds rhonchorous to auscultation bilaterally. Respiration equal and unlabored. HEART: Regular rate and rhythm without murmurs, rubs or gallops. S1 and S2 heard. Notably tachycardic. EXTREMITIES: Normal range of motion, mild generalized. No clubbing or cyanosis. Peripheral pulses intact and strong. VITALS: Heart rate 110, blood pressure 105/89, respiratory rate 15, afebrile, 97% on room air TELEMETRY: Atrial tachycardia with heart rates in the one-teens LABS: WBC 16.8, hemoglobin 7.2, hematocrit 21.1, sodium 1:30, potassium 3.3, BUN 33, creatinine 0.60 IMPRESSION: Atrial tachycardia, 2-1 conduction Cardiomyopathy of unknown etiology Status post back surgery Postoperative GI bleeding Morbid obesity Hypertension Dyslipidemia History of atrial flutter status post ablation PLAN: Supplement electrolytes per protocol Slowly increase metoprolol. Will increase to 50mg TID Resume anticoagulation when cleared by gastroenterology Midodrine for systolic pressures >80mmhg Further recommendations to be based on clinical course I am dictating on behalf of Dr Preet Leger's history/physical and assessment/plan. Objective - Vital Signs Vital signs: Vital Signs Temp 97.8 F 04/07/22 03:00 Pulse 110 H 04/07/22 06:00 Resp 12 04/07/22 06:00 BP 105/89 04/07/22 06:00 Pulse Ox 97 04/07/22 03:00 FiO2 2 04/04/22 05:29 Intake & Output 04/06/22 04/07/22 04/07/22 18:59 06:59 18:59 Intake Total 1248 600 Output Total 190 225 Balance 1058 375 Intake: IV 500 450 Piperacillin-Tazobactam 3 100 .375 gm In Sodium Chloride 0.9% 100 ml @ 25 mls/hr IVPB Q8HR [facility] Rx# :[id number] Sodium Chloride 0.9% 1, 400 450 000 ml @ 10 mls/hr IV . Q24H [facility] Rx#:[id number] Oral 200 150 Blood Product 548 Rc Pheresis 2 As3 Unit 274 [id number] Output: Urine 190 225 Other: Voiding Method Indwelling Catheter Indwelling Catheter # Bowel Movements 1 1 ABP, PAP, CO, CI - Last Documented Arterial Blood Pressure 158/70 - Labs CBC & Chem 7: 04/07/22 06:17 04/07/22 06:17 Labs: Abnormal Lab Results - Last 24 Hours (Table) 04/06/22 04/06/22 04/06/22 Range/Units 07:36 09:28 11:37 WBC 18.1 H (3.8-10.6) k/uL RBC (3.80-5.40) m/uL Hgb (11.4-16.0) gm/dL Hct (34.0-46.0) % RDW (11.5-15.5) % Plt Count (150-450) k/uL Neutrophils # (Manual) 14.80 H (1.3-7.7) k/uL Metamyelocytes # (Man) 0.18 H (0) k/uL Myelocytes # (Manual) 0.18 H (0) k/uL Nucleated RBCs 7 H (0-0) /100 WBC Sodium (137-145) mmol/L Potassium (3.5-5.1) mmol/L BUN (7-17) mg/dL Glucose (74-99) mg/dL POC Glucose (mg/dL) 116 H (70-110) mg/dL Calcium (8.4-10.2) mg/dL Urine Appearance (Clear) Urine Protein (Negative) Urine Ketones (Negative) Ur Leukocyte Esterase (Negative) Urine WBC (0-5) /hpf Urine WBC Clumps (None) /hpf Urine Bacteria (None) /hpf Urine Mucus (None) /hpf Urine Yeast (Budding) (None) /hpf Crossmatch See Detail 04/06/22 04/06/22 04/06/22 Range/Units 16:43 17:49 19:12 WBC 21.0 H (3.8-10.6) k/uL RBC 2.37 L (3.80-5.40) m/uL Hgb 7.6 L (11.4-16.0) gm/dL Hct 21.2 L (34.0-46.0) % RDW 23.4 H (11.5-15.5) % Plt Count 97 L (150-450) k/uL Neutrophils # (Manual) (1.3-7.7) k/uL Metamyelocytes # (Man) (0) k/uL Myelocytes # (Manual) (0) k/uL Nucleated RBCs (0-0) /100 WBC Sodium (137-145) mmol/L Potassium (3.5-5.1) mmol/L BUN (7-17) mg/dL Glucose (74-99) mg/dL POC Glucose (mg/dL) 169 H 156 H (70-110) mg/dL Calcium (8.4-10.2) mg/dL Urine Appearance (Clear) Urine Protein (Negative) Urine Ketones (Negative) Ur Leukocyte Esterase (Negative) Urine WBC (0-5) /hpf Urine WBC Clumps (None) /hpf Urine Bacteria (None) /hpf Urine Mucus (None) /hpf Urine Yeast (Budding) (None) /hpf Crossmatch 04/06/22 04/06/22 04/07/22 Range/Units 20:21 23:53 06:17 WBC (3.8-10.6) k/uL RBC (3.80-5.40) m/uL Hgb (11.4-16.0) gm/dL Hct (34.0-46.0) % RDW (11.5-15.5) % Plt Count (150-450) k/uL Neutrophils # (Manual) (1.3-7.7) k/uL Metamyelocytes # (Man) (0) k/uL Myelocytes # (Manual) (0) k/uL Nucleated RBCs (0-0) /100 WBC Sodium 130 L (137-145) mmol/L Potassium 3.3 L (3.5-5.1) mmol/L BUN 33 H (7-17) mg/dL Glucose 111 H (74-99) mg/dL POC Glucose (mg/dL) 141 H (70-110) mg/dL Calcium 7.0 L (8.4-10.2) mg/dL Urine Appearance Cloudy H (Clear) Urine Protein Trace H (Negative) Urine Ketones Trace H (Negative) Ur Leukocyte Esterase Large H (Negative) Urine WBC 121 H (0-5) /hpf Urine WBC Clumps Moderate H (None) /hpf Urine Bacteria Rare H (None) /hpf Urine Mucus Rare H (None) /hpf Urine Yeast (Budding) Rare H (None) /hpf Crossmatch 04/07/22 04/07/22 Range/Units 06:17 06:20 WBC 16.8 H (3.8-10.6) k/uL RBC 2.24 L (3.80-5.40) m/uL Hgb 7.2 L (11.4-16.0) gm/dL Hct 21.1 L (34.0-46.0) % RDW 24.3 H (11.5-15.5) % Plt Count (150-450) k/uL Neutrophils # (Manual) (1.3-7.7) k/uL Metamyelocytes # (Man) (0) k/uL Myelocytes # (Manual) (0) k/uL Nucleated RBCs (0-0) /100 WBC Sodium (137-145) mmol/L Potassium (3.5-5.1) mmol/L BUN (7-17) mg/dL Glucose (74-99) mg/dL POC Glucose (mg/dL) 144 H (70-110) mg/dL Calcium (8.4-10.2) mg/dL Urine Appearance (Clear) Urine Protein (Negative) Urine Ketones (Negative) Ur Leukocyte Esterase (Negative) Urine WBC (0-5) /hpf Urine WBC Clumps (None) /hpf Urine Bacteria (None) /hpf Urine Mucus (None) /hpf Urine Yeast (Budding) (None) /hpf Crossmatch Microbiology - Last 24 Hours (Table) 04/04/22 11:04 Blood Culture - Preliminary Blood No Growth after 48 hours 04/04/22 09:25 Urine Culture - Final Urine,Voided Patsy albicans
[2022-04-07] MEDS: MAG HYDROX/AL HYDROX/SIMETH 30 ML, diphenhydrAMINE ELIXIR 75 MG, LIDOCAINE VISCOUS 2% 3... PO SCH ×6 (10:04→18:45)
--- NOTE | 2022-04-07 10:34 | P.PN ---
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 Patient says she did sit at bedside yesterday and is looking forward to hopefully sitting up in chair with physical therapy today. At this time we are waiting for patient to be transferred to a bed on 3 S. patient did have a small bowel movement couple days ago. She denies any increasing shortness of breath/chest pain, fever, nausea, vomiting, change in vision. Objective - Vital Signs Vital signs: Vital Signs Temp 97.8 F 04/07/22 03:00 Pulse 110 H 04/07/22 06:00 Resp 12 04/07/22 06:00 BP 105/89 04/07/22 06:00 Pulse Ox 97 04/07/22 03:00 FiO2 2 04/04/22 05:29 Intake & Output 04/06/22 04/07/22 04/07/22 18:59 06:59 18:59 Intake Total 1248 600 Output Total 190 225 Balance 1058 375 Intake: IV 500 450 Piperacillin-Tazobactam 3 100 .375 gm In Sodium Chloride 0.9% 100 ml @ 25 mls/hr IVPB Q8HR [facility] Rx# :[id number] Sodium Chloride 0.9% 1, 400 450 000 ml @ 10 mls/hr IV . Q24H [facility] Rx#:[id number] Oral 200 150 Blood Product 548 Rc Pheresis 2 As3 Unit 274 [id number] Output: Urine 190 225 Other: Voiding Method Indwelling Catheter Indwelling Catheter # Bowel Movements 1 1 ABP, PAP, CO, CI - Last Documented Arterial Blood Pressure 158/70 - Exam Surgical incision was checked yesterday and appears to be healing well this time. New dressing was placed over incision yesterday. Sensation is present in bilateral upper extremities and lower extremities. It is equal and bilaterally intact. Patient does have good range of motion in bilateral upper and lower extremities. Patient does have limited range of motion in right hip flexion/extension and right knee flexion/extension bilaterally due to weakness/pain. 5/5 in all major motor groups in bilateral upper extremities. 4/5 in all major motor bilateral lower extremities. Radial pulse intact, 2+ bilaterally. Cap refill under 3 seconds in digits of upper extremities. Negative Homans bilaterally. Negative Susan bilaterally. Negative clonus bilateral. - Labs CBC & Chem 7: 04/07/22 06:17 04/07/22 06:17 Labs: Abnormal Lab Results - Last 24 Hours (Table) 04/06/22 04/06/22 04/06/22 Range/Units 07:36 09:28 11:37 WBC 18.1 H (3.8-10.6) k/uL RBC (3.80-5.40) m/uL Hgb (11.4-16.0) gm/dL Hct (34.0-46.0) % RDW (11.5-15.5) % Plt Count (150-450) k/uL Neutrophils # (Manual) 14.80 H (1.3-7.7) k/uL Metamyelocytes # (Man) 0.18 H (0) k/uL Myelocytes # (Manual) 0.18 H (0) k/uL Nucleated RBCs 7 H (0-0) /100 WBC Sodium (137-145) mmol/L Potassium (3.5-5.1) mmol/L BUN (7-17) mg/dL Glucose (74-99) mg/dL POC Glucose (mg/dL) 116 H (70-110) mg/dL Calcium (8.4-10.2) mg/dL Urine Appearance (Clear) Urine Protein (Negative) Urine Ketones (Negative) Ur Leukocyte Esterase (Negative) Urine WBC (0-5) /hpf Urine WBC Clumps (None) /hpf Urine Bacteria (None) /hpf Urine Mucus (None) /hpf Urine Yeast (Budding) (None) /hpf Crossmatch See Detail 04/06/22 04/06/22 04/06/22 Range/Units 16:43 17:49 19:12 WBC 21.0 H (3.8-10.6) k/uL RBC 2.37 L (3.80-5.40) m/uL Hgb 7.6 L (11.4-16.0) gm/dL Hct 21.2 L (34.0-46.0) % RDW 23.4 H (11.5-15.5) % Plt Count 97 L (150-450) k/uL Neutrophils # (Manual) (1.3-7.7) k/uL Metamyelocytes # (Man) (0) k/uL Myelocytes # (Manual) (0) k/uL Nucleated RBCs (0-0) /100 WBC Sodium (137-145) mmol/L Potassium (3.5-5.1) mmol/L BUN (7-17) mg/dL Glucose (74-99) mg/dL POC Glucose (mg/dL) 169 H 156 H (70-110) mg/dL Calcium (8.4-10.2) mg/dL Urine Appearance (Clear) Urine Protein (Negative) Urine Ketones (Negative) Ur Leukocyte Esterase (Negative) Urine WBC (0-5) /hpf Urine WBC Clumps (None) /hpf Urine Bacteria (None) /hpf Urine Mucus (None) /hpf Urine Yeast (Budding) (None) /hpf Crossmatch 04/06/22 04/06/22 04/07/22 Range/Units 20:21 23:53 06:17 WBC (3.8-10.6) k/uL RBC (3.80-5.40) m/uL Hgb (11.4-16.0) gm/dL Hct (34.0-46.0) % RDW (11.5-15.5) % Plt Count (150-450) k/uL Neutrophils # (Manual) (1.3-7.7) k/uL Metamyelocytes # (Man) (0) k/uL Myelocytes # (Manual) (0) k/uL Nucleated RBCs (0-0) /100 WBC Sodium 130 L (137-145) mmol/L Potassium 3.3 L (3.5-5.1) mmol/L BUN 33 H (7-17) mg/dL Glucose 111 H (74-99) mg/dL POC Glucose (mg/dL) 141 H (70-110) mg/dL Calcium 7.0 L (8.4-10.2) mg/dL Urine Appearance Cloudy H (Clear) Urine Protein Trace H (Negative) Urine Ketones Trace H (Negative) Ur Leukocyte Esterase Large H (Negative) Urine WBC 121 H (0-5) /hpf Urine WBC Clumps Moderate H (None) /hpf Urine Bacteria Rare H (None) /hpf Urine Mucus Rare H (None) /hpf Urine Yeast (Budding) Rare H (None) /hpf Crossmatch 04/07/22 04/07/22 Range/Units 06:17 06:20 WBC 16.8 H (3.8-10.6) k/uL RBC 2.24 L (3.80-5.40) m/uL Hgb 7.2 L (11.4-16.0) gm/dL Hct 21.1 L (34.0-46.0) % RDW 24.3 H (11.5-15.5) % Plt Count (150-450) k/uL Neutrophils # (Manual) (1.3-7.7) k/uL Metamyelocytes # (Man) (0) k/uL Myelocytes # (Manual) (0) k/uL Nucleated RBCs (0-0) /100 WBC Sodium (137-145) mmol/L Potassium (3.5-5.1) mmol/L BUN (7-17) mg/dL Glucose (74-99) mg/dL POC Glucose (mg/dL) 144 H (70-110) mg/dL Calcium (8.4-10.2) mg/dL Urine Appearance (Clear) Urine Protein (Negative) Urine Ketones (Negative) Ur Leukocyte Esterase (Negative) Urine WBC (0-5) /hpf Urine WBC Clumps (None) /hpf Urine Bacteria (None) /hpf Urine Mucus (None) /hpf Urine Yeast (Budding) (None) /hpf Crossmatch Microbiology - Last 24 Hours (Table) 04/04/22 11:04 Blood Culture - Preliminary Blood No Growth after 48 hours 04/04/22 09:25 Urine Culture - Final Urine,Voided Patsy albicans Assessment and Plan Assessment: 1. 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 Status post 7 units PRBC and 1 pack platelets -bilateral lower extremity weakness, status post multiple controlled falls in- house -Enterobacter sepsis, UTI -status post cardiac arrest Plan: 1. Lumbar spondylosis; adjacent segment disease status post L2-L4 posterior fusion with proximal junctional failure; neurogenic claudication - patient st able at bedside this morning. Patient is alert and oriented at bedside this morning. Awaiting for transfer to bed on 3S. We will continue follow patient during her stay in hospital. Maintained incision clean, dry, intact. Meticulous bowel cleanings. We will continue to follow patient during her stay in hospital. Plan for discharge to [facility] within the next few days. 2. Appreciate medical management 3. Pain management - oxycodone; Dilaudid; Flexeril; gabapentin; Tylenol 4. GI prophylaxis - senna; milk of mag 5. DVT prophylaxis - mechanical 6. PT/OT - WBAT w/walker and assistance 7. Encourage incentive spirometer use 8. Discharge planning - discharge to rehab within the next few days Time with Patient: Less than 30
--- NOTE | 2022-04-07 10:47 | P.PN ---
Subjective Progress Note Date: 04/07/22 CHIEF COMPLAINT: Spinal surgery HISTORY OF PRESENT ILLNESS: Surgical service following regards to GI bleed. Patient remains in the ICU as a select care overflow. Patient had evidence of a posterior anal fissure. Patient denies any abdominal pain. She is having brown bowel movements. Denies any nausea or vomiting. Afebrile. Mildly tachycardic. WBC is down from 21-16 Hgb 6.8-7.6 last night and is 7.2 this morning after 1 unit of blood. sodium 130 potassium 3.3 creatinine 0.6 PHYSICAL EXAM: VITAL SIGNS: Reviewed. GENERAL: Well-developed in no acute distress. HEENT: No sclera icterus. Extraocular movements grossly intact. Moist buccal mucosa. Head is atraumatic, normocephalic. ABDOMEN: Soft. Obese. Nondistended. Nontender NEUROLOGIC: Sleeping comfortably ASSESSMENT: 1. Acute GI bleed likely due to bleeding from posterior anal fissure 2. Fecal impaction and constipation 3. Lumbar decompression/fusion and then with washout and dural repair 4. Cardiac arrest 5. EGD on 03/19/2022 that showed mild gastritis and esophagitis no active bleeding 6. Hypokalemia PLAN: -Continue GoLYTELY bowel prep to help with constipation -Continue to monitor hemoglobin -Continue monitoring for any signs or symptoms of bleeding -Continue PPI -Continue to hold anticoagulation -Continue IV fluids -Potassium being replaced Physician Latin Teacher note has been reviewed by physician. Signing provider agrees with the documented findings, assessment, and plan of care. I have personally seen and examined the patient, reviewed the SUPER[employer]OR [employer] /PAs history, exam and MDM and agree with the assessment and plan as written. Based on total visit time, I have performed more than 50% of the visit. As above: Patient is tearful and depressed. Little oral intake. No bleeding. Still not drinking much of the GoLYTELY. Discussed case with Dr. Gentile. Patient may benefit from rehab placement given her significant depression. Objective - Vital Signs Vital signs: Vital Signs Temp 97.6 F 04/07/22 08:00 Pulse 109 H 04/07/22 08:00 Resp 16 04/07/22 08:00 BP 102/46 04/07/22 08:00 Pulse Ox 100 04/07/22 08:00 FiO2 2 04/04/22 05:29 Intake & Output 04/06/22 04/07/22 04/07/22 18:59 06:59 18:59 Intake Total 1248 600 Output Total 190 225 Balance 1058 375 Intake: IV 500 450 Piperacillin-Tazobactam 3 100 .375 gm In Sodium Chloride 0.9% 100 ml @ 25 mls/hr IVPB Q8HR [facility] Rx# :[id number] Sodium Chloride 0.9% 1, 400 450 000 ml @ 10 mls/hr IV . Q24H [facility] Rx#:[id number] Oral 200 150 Blood Product 548 Rc Pheresis 2 As3 Unit 274 [id number] Output: Urine 190 225 Other: Voiding Method Indwelling Catheter Indwelling Catheter # Bowel Movements 1 1 ABP, PAP, CO, CI - Last Documented Arterial Blood Pressure 158/70 - Labs CBC & Chem 7: 04/07/22 06:17 04/07/22 06:17 Labs: Abnormal Lab Results - Last 24 Hours (Table) 04/06/22 04/06/22 04/06/22 Range/Units 07:36 09:28 11:37 WBC 18.1 H (3.8-10.6) k/uL RBC (3.80-5.40) m/uL Hgb (11.4-16.0) gm/dL Hct (34.0-46.0) % RDW (11.5-15.5) % Plt Count (150-450) k/uL Neutrophils # (Manual) 14.80 H (1.3-7.7) k/uL Metamyelocytes # (Man) 0.18 H (0) k/uL Myelocytes # (Manual) 0.18 H (0) k/uL Nucleated RBCs 7 H (0-0) /100 WBC Sodium (137-145) mmol/L Potassium (3.5-5.1) mmol/L BUN (7-17) mg/dL Glucose (74-99) mg/dL POC Glucose (mg/dL) 116 H (70-110) mg/dL Calcium (8.4-10.2) mg/dL Urine Appearance (Clear) Urine Protein (Negative) Urine Ketones (Negative) Ur Leukocyte Esterase (Negative) Urine WBC (0-5) /hpf Urine WBC Clumps (None) /hpf Urine Bacteria (None) /hpf Urine Mucus (None) /hpf Urine Yeast (Budding) (None) /hpf Crossmatch See Detail 04/06/22 04/06/22 04/06/22 Range/Units 16:43 17:49 19:12 WBC 21.0 H (3.8-10.6) k/uL RBC 2.37 L (3.80-5.40) m/uL Hgb 7.6 L (11.4-16.0) gm/dL Hct 21.2 L (34.0-46.0) % RDW 23.4 H (11.5-15.5) % Plt Count 97 L (150-450) k/uL Neutrophils # (Manual) (1.3-7.7) k/uL Metamyelocytes # (Man) (0) k/uL Myelocytes # (Manual) (0) k/uL Nucleated RBCs (0-0) /100 WBC Sodium (137-145) mmol/L Potassium (3.5-5.1) mmol/L BUN (7-17) mg/dL Glucose (74-99) mg/dL POC Glucose (mg/dL) 169 H 156 H (70-110) mg/dL Calcium (8.4-10.2) mg/dL Urine Appearance (Clear) Urine Protein (Negative) Urine Ketones (Negative) Ur Leukocyte Esterase (Negative) Urine WBC (0-5) /hpf Urine WBC Clumps (None) /hpf Urine Bacteria (None) /hpf Urine Mucus (None) /hpf Urine Yeast (Budding) (None) /hpf Crossmatch 04/06/22 04/06/22 04/07/22 Range/Units 20:21 23:53 06:17 WBC (3.8-10.6) k/uL RBC (3.80-5.40) m/uL Hgb (11.4-16.0) gm/dL Hct (34.0-46.0) % RDW (11.5-15.5) % Plt Count (150-450) k/uL Neutrophils # (Manual) (1.3-7.7) k/uL Metamyelocytes # (Man) (0) k/uL Myelocytes # (Manual) (0) k/uL Nucleated RBCs (0-0) /100 WBC Sodium 130 L (137-145) mmol/L Potassium 3.3 L (3.5-5.1) mmol/L BUN 33 H (7-17) mg/dL Glucose 111 H (74-99) mg/dL POC Glucose (mg/dL) 141 H (70-110) mg/dL Calcium 7.0 L (8.4-10.2) mg/dL Urine Appearance Cloudy H (Clear) Urine Protein Trace H (Negative) Urine Ketones Trace H (Negative) Ur Leukocyte Esterase Large H (Negative) Urine WBC 121 H (0-5) /hpf Urine WBC Clumps Moderate H (None) /hpf Urine Bacteria Rare H (None) /hpf Urine Mucus Rare H (None) /hpf Urine Yeast (Budding) Rare H (None) /hpf Crossmatch 04/07/22 04/07/22 Range/Units 06:17 06:20 WBC 16.8 H (3.8-10.6) k/uL RBC 2.24 L (3.80-5.40) m/uL Hgb 7.2 L (11.4-16.0) gm/dL Hct 21.1 L (34.0-46.0) % RDW 24.3 H (11.5-15.5) % Plt Count (150-450) k/uL Neutrophils # (Manual) (1.3-7.7) k/uL Metamyelocytes # (Man) (0) k/uL Myelocytes # (Manual) (0) k/uL Nucleated RBCs (0-0) /100 WBC Sodium (137-145) mmol/L Potassium (3.5-5.1) mmol/L BUN (7-17) mg/dL Glucose (74-99) mg/dL POC Glucose (mg/dL) 144 H (70-110) mg/dL Calcium (8.4-10.2) mg/dL Urine Appearance (Clear) Urine Protein (Negative) Urine Ketones (Negative) Ur Leukocyte Esterase (Negative) Urine WBC (0-5) /hpf Urine WBC Clumps (None) /hpf Urine Bacteria (None) /hpf Urine Mucus (None) /hpf Urine Yeast (Budding) (None) /hpf Crossmatch Microbiology - Last 24 Hours (Table) 04/06/22 23:53 Urine Culture - Preliminary Urine,Catheterized 04/04/22 11:04 Blood Culture - Preliminary Blood No Growth after 48 hours 01/03/23 09:25 Urine Culture - Final Urine,Voided Patsy albicans
--- NOTE | 2022-04-07 11:15 | P.PN ---
Subjective Progress Note Date: 04/07/22 Principal diagnosis: cardiac arrest Hospital Course: Patient is a 71 yo CF with a hx of A fib s/p ablation, GERD, hypertension, dyslipidemia, and right diaphragmatic paralysis who presented for T10 to Pelvis decompression and fusion with revision. Course complicated by significant blood loss. Patient was on vasopressors, also received TXA gtt. She received 7 L of lactated Ringer's. She received 1 amp of sodium bicarb intaop. She also received albumin. Patient then had a cardiac arrest. During the case she developed A. fib with RVR and then quickly transitioned into bradycardia with a low end-tidal CO2. She received 0.4 of atropine and CPR was started. She received epinephrine 0.5. She achieved ROSC. Total down time was less than 5 minutes. She was extubated on 02/25. She continued to do well but struggled with pain. She was downgraded from ICU on 03/03. On 03/06/22 patient was noted to have a significant drop in hemoglobin from 10.0 down to 7.5 and upon reevaluation on 03/07 was found to have hemoglobin of 5.4, patient required multiple transfu sions. She has received a total of 7 units PRBCs and 1 unit of platelets. She underwent a CT abdomen and pelvis and was found to have a large right chest hematoma dilated small bowel concerning for ileus. Patient was evaluated by cardiothoracic surgery and they recommended conservative management. On 03/07, patient was noted to be hypotensive with elevated WBC count of 42.3, with worsening renal function and hyperkalamia. Patient was treated with NS bolus, IV insulin/D50, Albuterol and sodium bicarbonate. She was transferred back to the ICU for septic shock requiring Levophed. Patient was started on Vancomycin and Cefepime. Blood and urine cultures were obtained and positive for Enterobacter. Infectious disease was consulted and patient was continued on Cefepime for treatment of Enterobacter UTI with secondary bacteremia and Vancomycin was discontinued. Patient was later weaned off of vasopressors and again transferred out of the ICU. Patient was started on Lasix for treatment of acute on chronic systolic heart failure with EF of 35-40%. Patient continued on Protonix for GI prophylaxis, amiodarone and metoprolol for atrial fibrillation with RVR sodium bicarb for treatment of metabolic acidosis. Pt's Xarelto remains hold at this time. Patient was evaluated by PMR and is currently not a candidate for inpatient rehab. She has been cleared by orthopedic surgery to start working with physical therapy. On 03/26/22 patient was again found to have elevating leukocytosis and repeat Wound cultures were obtained. Wound cultures were positive for pseudomonas aeruginosa, enterococcus fasciculus, and Patsy albicans. Patient to continue with Zosyn per culture and sensitivity report and as recommended by infectious disease as this may be contamination/colonization however patient is a high risk of infection so we will continue with empiric antibiotic therapy. Overnight on 03/28/22 patient again developed episodes of melena and at that time Dr. Arce, general surgeon was re-consulted. CT abdomen and pelvis revealing bilateral hydronephrosis unable to rule out obstructive etiology, concerns for fecal impaction, and persistent previously known right anterior chest wall hematoma. General surgery following and reevaluated patient secondary to concerns of fecal impaction and started patient on lactulose. Warren catheter was inserted secondary to bilateral hydronephrosis and patient was evaluated by urologist recommending continuation of Warren catheter as bilateral hydronephrosis is believed to be resulting secondary to urinary retention. On the evening of 04/03/21 patient with continued atrial tachycardia and hypotension and unable to take metoprolol secondary to low blood pressures. Patient had episode of hematochezia along with large blood clot and was philippe sferred to stepdown unit. Patient currently residing in ICU overflow while awaiting an available bed on [address] [place] [address]. Had bedside manual disimpaction with general surgery. Also has a posterior anal fissure could likely because of current bleeding. On a bowel regimen. Hemoglobin continues to down trend. Requiring another 1 unit of PRBCs. Subjective: Patient seen and examined at bedside. No acute events overnight. Patient denies any further bloody bowel movements. She is complaining of significant pain in her back, but has not taken her medications this morning. Continues to have a Warren catheter in place. Remains tachycardic up to 110s. Awaiting bed on [address] [place] [address]. Pertinent positives and negatives as discussed above, a complete review of systems was performed and all other systems are negative. Vitals Signs Reviewed. General: ill appearing, no acute distress, appears at stated age, Derm: warm, dry. Postsurgical dressing clean, dry, and intact this morning. Head: atraumatic, normocephalic, symmetric Eyes: EOMI, no lid lag, anicteric sclera Mouth: no lip lesion, dry membranes moist Cardiovascular: S1S2 regular, tachycardic, no murmur Lungs: Respirations even, regular, and unlabored on room air. Lungs clear to auscultation bilaterally , 2 L Ext: no gross muscle atrophy, trace edema, no contractures Abd: Warren catheter in place. Obese. Non tender to palpation. Neuro: Moving all 4 extremities independently, sensation and movement equal and intact in bilateral upper and lower extremities. Patient continues with equal Bilateral lower extremity weakness unable to lift legs off the bed independently. Psych:: Patient with depressed affect, she is pleasant and cooperative. Assessment and Plan: GI bleeding, likely lower Acute abdominal pain - resolved Fecal impaction, status post manual disimpaction Anal fissure -CT abdomen and pelvis concerning for possible fecal impaction. -Gen. surgery was consulted for reevaluation -Continue with Protonix 40 mg IVP twice daily -Hemoglobin continues to down trend -Requiring another 1 unit of PRBCs yesterday -On bowel regimen Atrial tachycardia/fibrillation with RVR Hypotension - blood pressure Status post Cardiac arrest with ROSC Acute on chronic systolic heart failure -Cardiology following -Continuous telemetry monitoring. -Oral amiodarone and metoprolol tartrate (slowly increase per cardiology) -On oral diuretics -also on Midodrine -Holding anticoagulation due to ongoing GI bleed Hypokalemia -Replete and monitor Septic shock - resolved Enterobacter cloacae UTI with secondary bacteremia - resolved Lactic acidosis Leukocytosis Patsy UTI -Infectious disease following and managing antibiotic course at this time. Patient remains on Zosyn -ID started Eraxis Bilateral hydronephrosis, likely secondary to urinary retention -CT abdomen and pelvis revealing bilateral hydronephrosis unable to rule out obstructive etiology. -Renal function stable -Urology following, recommending continuation of Warren catheter Prerenal azotemia, improving Hyponatremia Hyperkalemia, resolved after discontinuation of Aldactone and lisinopril, now hypokalemia Metabolic acidosis, resolved -Continue sodium bicarb 650 mg twice a day -Nephrology following. Prediabetes with hyperglycemia, now hypoglycemia -Likely steroid induced -A1c is 6 -Continue with sliding scale Right breast hematoma - stable T10 to pelvis decompression with fusion Post-op pain -Management per primary admitting Orthopedic surgery team including DVT prophylaxis, pain management, wound/dressing care, weightbearing, and PT/OT . -PT/OT following. -Plan is for discharge to subacute rehab Right diaphragmatic paralysis -No interventions for her pulmonology Hyperlipidemia -atorvastatin. History of hypertension -Currently On Midodrine for episodes of hypotension Transaminitis -Likely ischemic hepatitis. -Resolved Thank you for allowing us to participate in the care of this pleasant patient. Do not hesitate to contact us with questions. Someone can be reached from the [facility] hospitalist group all hours of the day at [phone] or via perfect [employer]. Objective - Vital Signs Vital signs: Vital Signs Temp 97.6 F 04/07/22 08:00 Pulse 109 H 04/07/22 08:00 Resp 16 04/07/22 08:00 BP 102/46 04/07/22 08:00 Pulse Ox 100 04/07/22 08:00 FiO2 2 04/04/22 05:29 Intake & Output 04/06/22 04/07/22 04/07/22 18:59 06:59 18:59 Intake Total 1248 600 Output Total 190 225 Balance 1058 375 Weight 127.2 kg Intake: IV 500 450 Piperacillin-Tazobactam 3 100 .375 gm In Sodium Chloride 0.9% 100 ml @ 25 mls/hr IVPB Q8HR [facility] Rx# :[id number] Sodium Chloride 0.9% 1, 400 450 000 ml @ 10 mls/hr IV . Q24H [facility] Rx#:[id number] Oral 200 150 Blood Product 548 Rc Pheresis 2 As3 Unit 274 [id number] Output: Urine 190 225 Other: Voiding Method Indwelling Catheter Indwelling Catheter # Bowel Movements 1 1 ABP, PAP, CO, CI - Last Documented Arterial Blood Pressure 158/70 - Labs CBC & Chem 7: 04/07/22 06:17 04/07/22 06:17 Labs: Abnormal Lab Results - Last 24 Hours (Table) 04/06/22 04/06/22 04/06/22 Range/Units 07:36 09:28 11:37 WBC 18.1 H (3.8-10.6) k/uL RBC (3.80-5.40) m/uL Hgb (11.4-16.0) gm/dL Hct (34.0-46.0) % RDW (11.5-15.5) % Plt Count (150-450) k/uL Neutrophils # (Manual) 14.80 H (1.3-7.7) k/uL Metamyelocytes # (Man) 0.18 H (0) k/uL Myelocytes # (Manual) 0.18 H (0) k/uL Nucleated RBCs 7 H (0-0) /100 WBC Sodium (137-145) mmol/L Potassium (3.5-5.1) mmol/L BUN (7-17) mg/dL Glucose (74-99) mg/dL POC Glucose (mg/dL) 116 H (70-110) mg/dL Calcium (8.4-10.2) mg/dL Urine Appearance (Clear) Urine Protein (Negative) Urine Ketones (Negative) Ur Leukocyte Esterase (Negative) Urine WBC (0-5) /hpf Urine WBC Clumps (None) /hpf Urine Bacteria (None) /hpf Urine Mucus (None) /hpf Urine Yeast (Budding) (None) /hpf Crossmatch See Detail 04/06/22 04/06/22 04/06/22 Range/Units 16:43 17:49 19:12 WBC 21.0 H (3.8-10.6) k/uL RBC 2.37 L (3.80-5.40) m/uL Hgb 7.6 L (11.4-16.0) gm/dL Hct 21.2 L (34.0-46.0) % RDW 23.4 H (11.5-15.5) % Plt Count 97 L (150-450) k/uL Neutrophils # (Manual) (1.3-7.7) k/uL Metamyelocytes # (Man) (0) k/uL Myelocytes # (Manual) (0) k/uL Nucleated RBCs (0-0) /100 WBC Sodium (137-145) mmol/L Potassium (3.5-5.1) mmol/L BUN (7-17) mg/dL Glucose (74-99) mg/dL POC Glucose (mg/dL) 169 H 156 H (70-110) mg/dL Calcium (8.4-10.2) mg/dL Urine Appearance (Clear) Urine Protein (Negative) Urine Ketones (Negative) Ur Leukocyte Esterase (Negative) Urine WBC (0-5) /hpf Urine WBC Clumps (None) /hpf Urine Bacteria (None) /hpf Urine Mucus (None) /hpf Urine Yeast (Budding) (None) /hpf Crossmatch 04/06/22 04/06/22 04/07/22 Range/Units 20:21 23:53 06:17 WBC (3.8-10.6) k/uL RBC (3.80-5.40) m/uL Hgb (11.4-16.0) gm/dL Hct (34.0-46.0) % RDW (11.5-15.5) % Plt Count (150-450) k/uL Neutrophils # (Manual) (1.3-7.7) k/uL Metamyelocytes # (Man) (0) k/uL Myelocytes # (Manual) (0) k/uL Nucleated RBCs (0-0) /100 WBC Sodium 130 L (137-145) mmol/L Potassium 3.3 L (3.5-5.1) mmol/L BUN 33 H (7-17) mg/dL Glucose 111 H (74-99) mg/dL POC Glucose (mg/dL) 141 H (70-110) mg/dL Calcium 7.0 L (8.4-10.2) mg/dL Urine Appearance Cloudy H (Clear) Urine Protein Trace H (Negative) Urine Ketones Trace H (Negative) Ur Leukocyte Esterase Large H (Negative) Urine WBC 121 H (0-5) /hpf Urine WBC Clumps Moderate H (None) /hpf Urine Bacteria Rare H (None) /hpf Urine Mucus Rare H (None) /hpf Urine Yeast (Budding) Rare H (None) /hpf Crossmatch 04/07/22 04/07/22 Range/Units 06:17 06:20 WBC 16.8 H (3.8-10.6) k/uL RBC 2.24 L (3.80-5.40) m/uL Hgb 7.2 L (11.4-16.0) gm/dL Hct 21.1 L (34.0-46.0) % RDW 24.3 H (11.5-15.5) % Plt Count (150-450) k/uL Neutrophils # (Manual) (1.3-7.7) k/uL Metamyelocytes # (Man) (0) k/uL Myelocytes # (Manual) (0) k/uL Nucleated RBCs (0-0) /100 WBC Sodium (137-145) mmol/L Potassium (3.5-5.1) mmol/L BUN (7-17) mg/dL Glucose (74-99) mg/dL POC Glucose (mg/dL) 144 H (70-110) mg/dL Calcium (8.4-10.2) mg/dL Urine Appearance (Clear) Urine Protein (Negative) Urine Ketones (Negative) Ur Leukocyte Esterase (Negative) Urine WBC (0-5) /hpf Urine WBC Clumps (None) /hpf Urine Bacteria (None) /hpf Urine Mucus (None) /hpf Urine Yeast (Budding) (None) /hpf Crossmatch Microbiology - Last 24 Hours (Table) 04/06/22 23:53 Urine Culture - Preliminary Urine,Catheterized 04/04/22 11:04 Blood Culture - Preliminary Blood No Growth after 48 hours 04/04/22 09:25 Urine Culture - Final Urine,Voided Patsy albicans
[2022-04-07] MEDS: ANIDULAFUNGIN 100 MG in SODIUM CHLORIDE 0.9% 100 ML IVPB SCH (11:19)
[2022-04-07 11:37] LABS: Glucose,Whole Blood 134 mg/dL (70-110)
[2022-04-07 12:18] LABS: Band Neutrophils % 1 %; Metamyelocytes % 1 %; Neutrophils % (M) 86 %; Nucleated Red Blood Cells 8 /100 WBC (0-0); Total Cells Counted 200
[2022-04-07 12:19] LABS: Eosinophils # (M) 0.16 k/uL (0-0.7); Lymphocytes # (M) 1.56 k/uL (1.0-4.8); Metamyelocytes # (M) 0.16 k/uL (0); Monocytes # (M) 0.47 k/uL (0-1.0); WBC 15.6 k/uL (3.8-10.6)
[2022-04-07 12:20] LABS: Polychromasia Present
--- NOTE | 2022-04-07 15:13 | US ---
EXAMINATION TYPE: US venous doppler duplex LE BI DATE OF EXAM: 04/07/2022 3:02 PM COMPARISON: NONE CLINICAL HISTORY: leg pain. bilateral leg swelling, no h/o dvt SIDE PERFORMED: Bilateral TECHNIQUE: The lower extremity deep venous system is examined utilizing real time linear array sonog vik with graded compression, doppler sonography and color-flow sonography. VESSELS IMAGED: Common Femoral Vein Deep Femoral Vein Greater Saphenous Vein * Femoral Vein Popliteal Vein Small Saphenous Vein * Proximal Calf Veins (* superficial vessels) patient in recliner, large habitus and has extensive edema, difficult exam Right Leg: Limited scan appears negative Left Leg: Limited scan appears negative IMPRESSION: 1. Bilateral lower extremity ultrasound negative for deep venous thrombosis. 2. Examination is limited due to body habitus and patient's ability to cooperate
[2022-04-07 16:51] LABS: Glucose,Whole Blood 139 mg/dL (70-110)
[2022-04-07] MEDS: METOPROLOL TARTRATE 50 MG TAB PO SCH (18:22)
--- NOTE | 2022-04-07 20:41 | P.PN ---
Subjective Progress Note Date: 04/07/22 Principal diagnosis: UTI and bacteremia Patient is a 71-year-old female with a past medical history difficult for atrial fibrillation flutter hypertension hyperlipidemia hypothyroidism right breast cancer electively admitted to the hospital more than 2 weeks ago 022 for T10 to lumbar spine revision decompression and posterior lateral interbody fusion, patient did have a episode of hypotension and elevated white count requiring admission to the ICU patient did have a positive UA and gram- negative bacteremia and is scheduled for exploration of the thoracolumbar incision completed on 03/09/2022 with apparently no evidence of any abscess On today's evaluation that is 04/07/2022 the patient remains to be afebrile , the patient is breathing comfortably on 2 L nasal cannula, the patient denies any chest pain shortness of breath did have occasional dry cough some nausea but no vomiting, no abdominal discomfort and no diarrhea reported by the nursing staff Objective - Vital Signs Vital signs: Vital Signs Temp 97.6 F 04/07/22 08:00 Pulse 109 H 04/07/22 08:00 Resp 16 04/07/22 08:00 BP 102/46 04/07/22 08:00 Pulse Ox 100 04/07/22 08:00 FiO2 2 04/04/22 05:29 Intake & Output 04/06/22 04/07/22 04/07/22 18:59 06:59 18:59 Intake Total 1248 600 Output Total 190 225 Balance 1058 375 Weight 127.2 kg Intake: IV 500 450 Piperacillin-Tazobactam 3 100 .375 gm In Sodium Chloride 0.9% 100 ml @ 25 mls/hr IVPB Q8HR MEHUL Rx# :[id number] Sodium Chloride 0.9% 1, 400 450 000 ml @ 10 mls/hr IV . Q24H ME[facility]UL Rx#:[id number] Oral 200 150 Blood Product 548 Rc Pheresis 2 As3 Unit 274 [id number] Output: Urine 190 225 Other: Voiding Method Indwelling Catheter Indwelling Catheter # Bowel Movements 1 1 ABP, PAP, CO, CI - Last Documented Arterial Blood Pressure 158/70 - Exam GENERAL DESCRIPTION: An elderly female lying in bed in no distress RESPIRATORY SYSTEM: Unlabored breathing , decreased breath sounds at bases HEART: S1 S2 regular rate and rhythm , ABDOMEN: Soft , no tenderness Lower lumbar spine incision site is currently dressed EXTREMITIES: Diffuse swelling bilateral lower extremity - Labs CBC & Chem 7: 04/07/22 06:17 04/07/22 06:17 Labs: Abnormal Lab Results - Last 24 Hours (Table) 04/06/22 04/06/22 04/06/22 Range/Units 07:36 09:28 16:43 WBC 18.1 H (3.8-10.6) k/uL RBC (3.80-5.40) m/uL Hgb (11.4-16.0) gm/dL Hct (34.0-46.0) % RDW (11.5-15.5) % Plt Count (150-450) k/uL Neutrophils # (Manual) 14.80 H (1.3-7.7) k/uL Metamyelocytes # (Man) 0.18 H (0) k/uL Myelocytes # (Manual) 0.18 H (0) k/uL Nucleated RBCs 7 H (0-0) /100 WBC Sodium (137-145) mmol/L Potassium (3.5-5.1) mmol/L BUN (7-17) mg/dL Glucose (74-99) mg/dL POC Glucose (mg/dL) 169 H (70-110) mg/dL Calcium (8.4-10.2) mg/dL Urine Appearance (Clear) Urine Protein (Negative) Urine Ketones (Negative) Ur Leukocyte Esterase (Negative) Urine WBC (0-5) /hpf Urine WBC Clumps (None) /hpf Urine Bacteria (None) /hpf Urine Mucus (None) /hpf Urine Yeast (Budding) (None) /hpf Crossmatch See Detail 04/06/22 04/06/22 04/06/22 Range/Units 17:49 19:12 20:21 WBC 21.0 H (3.8-10.6) k/uL RBC 2.37 L (3.80-5.40) m/uL Hgb 7.6 L (11.4-16.0) gm/dL Hct 21.2 L (34.0-46.0) % RDW 23.4 H (11.5-15.5) % Plt Count 97 L (150-450) k/uL Neutrophils # (Manual) (1.3-7.7) k/uL Metamyelocytes # (Man) (0) k/uL Myelocytes # (Manual) (0) k/uL Nucleated RBCs (0-0) /100 WBC Sodium (137-145) mmol/L Potassium (3.5-5.1) mmol/L BUN (7-17) mg/dL Glucose (74-99) mg/dL POC Glucose (mg/dL) 156 H 141 H (70-110) mg/dL Calcium (8.4-10.2) mg/dL Urine Appearance (Clear) Urine Protein (Negative) Urine Ketones (Negative) Ur Leukocyte Esterase (Negative) Urine WBC (0-5) /hpf Urine WBC Clumps (None) /hpf Urine Bacteria (None) /hpf Urine Mucus (None) /hpf Urine Yeast (Budding) (None) /hpf Crossmatch 04/06/22 04/07/22 04/07/22 Range/Units 23:53 06:17 06:17 WBC 15.6 H (3.8-10.6) k/uL RBC 2.24 L (3.80-5.40) m/uL Hgb 7.2 L (11.4-16.0) gm/dL Hct 21.1 L (34.0-46.0) % RDW 24.3 H (11.5-15.5) % Plt Count 92 L (150-450) k/uL Neutrophils # (Manual) 13.50 H (1.3-7.7) k/uL Metamyelocytes # (Man) 0.16 H (0) k/uL Myelocytes # (Manual) (0) k/uL Nucleated RBCs 8 H (0-0) /100 WBC Sodium 130 L (137-145) mmol/L Potassium 3.3 L (3.5-5.1) mmol/L BUN 33 H (7-17) mg/dL Glucose 111 H (74-99) mg/dL POC Glucose (mg/dL) (70-110) mg/dL Calcium 7.0 L (8.4-10.2) mg/dL Urine Appearance Cloudy H (Clear) Urine Protein Trace H (Negative) Urine Ketones Trace H (Negative) Ur Leukocyte Esterase Large H (Negative) Urine WBC 121 H (0-5) /hpf Urine WBC Clumps Moderate H (None) /hpf Urine Bacteria Rare H (None) /hpf Urine Mucus Rare H (None) /hpf Urine Yeast (Budding) Rare H (None) /hpf Crossmatch 04/07/22 04/07/22 Range/Units 06:20 11:35 WBC (3.8-10.6) k/uL RBC (3.80-5.40) m/uL Hgb (11.4-16.0) gm/dL Hct (34.0-46.0) % RDW (11.5-15.5) % Plt Count (150-450) k/uL Neutrophils # (Manual) (1.3-7.7) k/uL Metamyelocytes # (Man) (0) k/uL Myelocytes # (Manual) (0) k/uL Nucleated RBCs (0-0) /100 WBC Sodium (137-145) mmol/L Potassium (3.5-5.1) mmol/L BUN (7-17) mg/dL Glucose (74-99) mg/dL POC Glucose (mg/dL) 144 H 134 H (70-110) mg/dL Calcium (8.4-10.2) mg/dL Urine Appearance (Clear) Urine Protein (Negative) Urine Ketones (Negative) Ur Leukocyte Esterase (Negative) Urine WBC (0-5) /hpf Urine WBC Clumps (None) /hpf Urine Bacteria (None) /hpf Urine Mucus (None) /hpf Urine Yeast (Budding) (None) /hpf Crossmatch Microbiology - Last 24 Hours (Table) 04/06/22 23:53 Urine Culture - Preliminary Urine,Catheterized 04/04/22 11:04 Blood Culture - Preliminary Blood No Growth after 48 hours 04/04/22 09:25 Urine Culture - Final Urine,Voided Patsy albicans Assessment and Plan (1) Sepsis Current Visit: Yes Status: Acute Code(s): A41.9 - SEPSIS, UNSPECIFIED ORGANISM SNOMED Code(s): 29994726 Plan: 1-patient with diarrhea seemed to have responded to Questran to continue, hold if no bowel movement for 24 hours 2elevated white count and concern for possible maceration of the lower end of the incision cultures obtained per hospitalist which are currently growing e nterococcus and Pseudomonas along with anaerobe and Patsy possible colonization however the patient is high risk of infection as per discussion with the spine surgery. 3-patient with episode of GI bleeding and required admission to the ICU/3 S. both surgery and GI rest following the patient closely 4urine cultures came back positive with aptsy cannot use Diflucan because of the patient on the medication interacting , the patient Warren catheter has been changed repeat UA is still positive we will empirically continue the patient on Eraxis and white count seemed to be trending down to 15,000 today Time with Patient: Less than 30
[2022-04-07 21:26] LABS: Anisocytosis Marked; Hypochromasia Moderate; MCH 32.5 pg (25.0-35.0); MCHC 33.8 g/dL (31.0-37.0); Macrocytosis Moderate; Mean Platelet Volume 11.3; Poikilocytosis Marked; RBC 1.88 m/uL (3.80-5.40)
[2022-04-07] MEDS: MIRTAZAPINE 15 MG TAB PO SCH (21:27)
[2022-04-07 21:51] LABS: Glucose,Whole Blood 191 mg/dL (70-110)
[2022-04-07 22:03] LABS: HCT 18.1 % (34.0-46.0); HGB 6.1 gm/dL (11.4-16.0)
[2022-04-07 22:04] LABS: Platelet Count 79 k/uL (150-450)
[2022-04-07] MEDS ORDERED: NALOXONE 0.4 MG/ML 1 ML VIAL IV PRN (23:08)
[2022-04-08] MEDS ORDERED: SODIUM CHLORIDE 0.9% 1,000 ML IV ONE
[2022-04-08] MEDS: MAG HYDROX/AL HYDROX/SIMETH 30 ML, diphenhydrAMINE ELIXIR 75 MG, LIDOCAINE VISCOUS 2% 3... PO SCH ×12 (00:14→23:43)
[2022-04-08] MEDS: METOPROLOL TARTRATE 50 MG TAB PO SCH ×4 (00:14→23:31)
[2022-04-08] MEDS: SODIUM CHLORIDE 0.9% 1,000 ML IV SCH ×2 (00:15→17:46)
[2022-04-08] MEDS: ACETAMINOPHEN TAB 500 MG TAB PO SCH ×4 (01:19→16:05)
[2022-04-08] MEDS: PIPERACILLIN-TAZOBACTAM 3.375 GM in SODIUM CHLORIDE 0.9% 100 ML IVPB SCH ×3 (01:26→16:14)
[2022-04-08] MEDS ORDERED: DEXTROSE 5% IN WATER 100 ML with AMIODARONE 150 MG IV ONE (04:45)
[2022-04-08] MEDS ORDERED: AMIODARONE 360 MG in DEXTROSE 5% IN WATER 200 ML IV ONE ×2 (05:00)
[2022-04-08 06:34] LABS: Anisocytosis Moderate; HCT 22.4 % (34.0-46.0); Hypochromasia Slight; MCH 32.1 pg (25.0-35.0); MCHC 34.7 g/dL (31.0-37.0); MCV 92.5 fL (80.0-100.0); Macrocytosis Slight; Mean Platelet Volume 11.3; Poikilocytosis Moderate; RBC 2.42 m/uL (3.80-5.40); RDW 23.1 % (11.5-15.5)
[2022-04-08] MEDS: LEVOTHYROXINE 88 MCG TAB PO SCH (06:42)
[2022-04-08] MEDS: MIDODRINE 5 MG TAB PO SCH ×3 (06:42→16:05)
[2022-04-08 06:44] LABS: African American GFR (CKD) >90 (>60 ml/min/1.73 sqM); Anion Gap 2 mmol/L; Blood Urea Nitrogen 39 mg/dL (7-17); Calcium 6.6 mg/dL (8.4-10.2); Carbon Dioxide 28 mmol/L (22-30); Chloride 99 mmol/L (98-107); Glucose 193 mg/dL (74-99); Non-African American GFR(CKD) >90 (>60 ml/min/1.73 sqM); Potassium 3.2 mmol/L (3.5-5.1); Sodium 129 mmol/L (137-145)
[2022-04-08 06:49] LABS: HGB 7.8 gm/dL (11.4-16.0); Platelet Count 77 k/uL (150-450)
[2022-04-08 07:17] LABS: Glucose,Whole Blood 265 mg/dL (70-110)
[2022-04-08 07:20] LABS: Glucose,Whole Blood 257 mg/dL (70-110)
[2022-04-08 07:38] LABS: Band Neutrophils % 1 %; Lymphocytes # (M) 2.18 k/uL (1.0-4.8); Metamyelocytes # (M) 0.36 k/uL (0); Metamyelocytes % 2 %; Monocytes # (M) 0.91 k/uL (0-1.0); Neutrophils % (M) 81 %; Nucleated Red Blood Cells 25 /100 WBC (0-0); Polychromasia Present; Total Cells Counted 200; WBC 18.2 k/uL (3.8-10.6)
[2022-04-08 07:39] LABS: Ovalocytes Present
--- NOTE | 2022-04-08 07:49 | P.PN ---
Subjective Progress Note Date: 04/08/22 On 04/05/2022, the patient is resting comfortably in bed. No significant complaints. The patient got transferred back to the intensive care unit for suspected GI bleed. Surgical services will again reconsulted. The patient had further evaluation and the patient was found to have an evidence of a posterior fissure. The patient's continued to have brown all movements. She has no nausea or vomiting. No abdominal pain. She was given GoLYTELY yesterday. Her WBC count at 20.7. Hemoglobin is at 7.9. She is afebrile. Her lower extremity edema has improved considerably the patient is currently on oral Lasix. She is post lumbar decompression/fusion with subsequent ureteral repair. Her previous EGD that was done on 03/19/2022 showed mild gastritis and esophagitis without evidence of any bleeding. The patient remains on PPI and the patient is on no anticoagulants for now. Cardiac rhythm is controlled A. fib/flutter. On 04/06/2022, the patient is awake. She did not show any further signs of GI bleed. Hemoglobin currently is at 7.8 and this was the last reading from yesterday and a follow-up hemoglobin is pending from today. Meanwhile, the patient is having regular diet. Her oral intake is quite diminished and the patient feels quite depressed. She had brownish bowel movement yesterday. Hemodynamically she is stable. No pressors. She is on 1 L of O2 nasal cannula. No fever. No chills. Profoundly weak in the lower extremities, motor strength is better than the upper extremity. She is communicating. Her cardiac rhythm is normal sinus although she has had episodes of tachycardia with A. fib/flutter. No IV drug use has been use. She is on a proton pump inhibitor and she is currently on Protonix 40 mg IV every 12 hours. No significant issues with pain. 04/07/2022, no evidence of any GI bleeding and the patient had another small bowel movement yesterday. Hemoglobin has remained stable. Most recent hemoglobin level is at 7.6 from yesterday. A repeat level needs to be done. Meanwhile, there is a concern for a candidal UTI. UA was abnormal. Urine cultu re was positive for Patsy and the patient was started on Eraxis by infectious disease. Warren catheter was also replaced. Electrolytes are stable, potassium is to be replaced at 3.3 and the sodium is at 1:30, B is a 33 with a creatinine of 0.6. IV fluids are in the form of normal saline at the rate of 50 mL an hour. CBC from today is still pending. Most recent numbers echoes at 21.0. Her cardiac rhythm is atrial tachycardia/flutter, 2:1. On 04/08/2022, the patient remains in intensive care unit. She finally declared herself and she started having GI bleeding in yesterday with witnessed a total of 3 episodes of maroon-colored stool. Noted that hemoglobin was already dropping. She had a low hemoglobin of 6.1 and based on that the patient was given units of packed RBC yesterday and hemoglobin came up to 7.8 from this morning. Her platelet count is 77. Her WBC count of 18.2. Her sodium level is at 129. Potassium levels at 3.2. Creatinine stable at 0.5. Blood sugar is 257. For now, the patient is on IV Protonix. Previous EGD had shown gastritis and esophagitis. Nevertheless, we are suspecting it lower source of GI bleeding. Along with a GI bleed, she went into A. fib RVR. Cardiology was involved and the patient was started on amiodarone bolus and loading and cur rently she is on a maintenance of 1 mg/m receive full loading. She was taken amiodarone 200 mg by mouth daily and she was also metoprolol 50 mg by mouth 3 times a day. Her current heart rate is in the 140 range and she remains in atrial fibrillation. Note that this patient has not received any an ticoagulation. Antibiotic has been adjusted by infectious disease and the patient is receiving a combination of excess and Zosyn. She is on oxygen at 2 L pH is resting comfortably in bed. She is profoundly weak. She has developed some trace edema lower extremities bilaterally. She is able to communicate. Denies having any abdominal pain. No hematemesis. No coffee-ground emesis. She she is on IV Protonix 40 mg twice a day. Objective - Vital Signs Vital signs: Vital Signs Temp 98.6 F 04/08/22 04:30 Pulse 140 H 04/08/22 07:00 Resp 7 L 04/08/22 07:00 BP 90/53 04/08/22 07:00 Pulse Ox 100 04/08/22 07:00 FiO2 2 04/04/22 05:29 Intake & Output 04/07/22 04/08/22 04/08/22 18:59 06:59 18:59 Intake Total 800 1685 50 Output Total 360 520 40 Balance 440 1165 10 Weight 127.2 kg Intake: IV 800 375 50 Sodium Chloride 0.9% 1, 800 375 50 000 ml @ 10 mls/hr IV . Q24H [facility] Rx#:[id number] Intake, IV Titration 1000 Amount Sodium Chloride 0.9% 1, 1000 000 ml @ 999 mls/hr IV . Q1H1M ONE Rx#:[id number] Blood Product 310 Rc As-1 Unit 310 [id number] Output: Urine 360 520 40 Other: Voiding Method Indwelling Catheter Indwelling Catheter # Bowel Movements 2 ABP, PAP, CO, CI - Last Documented Arterial Blood Pressure 158/70 - Exam No acute distress, oriented 3. Currently on room air oxygen and the patient is calm and comfortable. Head exam was generally normal. There was no scleral icterus or corneal arcus. Mucous membranes were moist. HEENT examination is grossly unremarkable. Neck supple. Full range of motion. No adenopathy thyromegaly or neck vein distention. Cardiovascular examination reveals regular rhythm rate. S1-S2 normal. No S3 or S4. No discernible murmur noted. Heart sounds are distant. Lungs reveal clear breath sounds. Breath sounds are equal bilaterally. No adventitious lung sounds including wheezes rhonchi or crackles. Abdomen soft bowel sounds are heard. No masses or tenderness. Extremities are intact. Slight edema of the extremities. No cyanosis or clubbing. Skin is without rash or lesion. Large hematoma about the right breast. Neurologic examination is brief but nonfocal. The patient's strength is quite diminished in lower extremity bilaterally. Please refer to the spine surgeons evaluation regarding the motor function and reflexes. Cranial nerves are essentially intact and the patient is awake and alert. She is also oriented. - Labs CBC & Chem 7: 04/08/22 06:00 04/08/22 06:00 Labs: Abnormal Lab Results - Last 24 Hours (Table) 04/06/22 04/07/22 04/07/22 Range/Units 09:28 06:17 11:35 WBC 15.6 H (3.8-10.6) k/uL RBC 2.24 L (3.80-5.40) m/uL Hgb 7.2 L (11.4-16.0) gm/dL Hct 21.1 L (34.0-46.0) % RDW 24.3 H (11.5-15.5) % Plt Count 92 L (150-450) k/uL Neutrophils # (Manual) 13.50 H (1.3-7.7) k/uL Metamyelocytes # (Man) 0.16 H (0) k/uL Nucleated RBCs 8 H (0-0) /100 WBC Sodium (137-145) mmol/L Potassium (3.5-5.1) mmol/L BUN (7-17) mg/dL Glucose (74-99) mg/dL POC Glucose (mg/dL) 134 H (70-110) mg/dL Calcium (8.4-10.2) mg/dL Crossmatch See Detail 04/07/22 04/07/22 04/07/22 Range/Units 16:49 21:00 21:49 WBC 24.0 H (3.8-10.6) k/uL RBC 1.88 L (3.80-5.40) m/uL Hgb 6.1 L* (11.4-16.0) gm/dL Hct 18.1 L* (34.0-46.0) % RDW 25.0 H (11.5-15.5) % Plt Count 79 L (150-450) k/uL Neutrophils # (Manual) (1.3-7.7) k/uL Metamyelocytes # (Man) (0) k/uL Nucleated RBCs (0-0) /100 WBC Sodium (137-145) mmol/L Potassium (3.5-5.1) mmol/L BUN (7-17) mg/dL Glucose (74-99) mg/dL POC Glucose (mg/dL) 139 H 191 H (70-110) mg/dL Calcium (8.4-10.2) mg/dL Crossmatch 04/08/22 04/08/22 04/08/22 Range/Units 06:00 06:00 07:16 WBC 18.2 H (3.8-10.6) k/uL RBC 2.42 L (3.80-5.40) m/uL Hgb 7.8 L D (11.4-16.0) gm/dL Hct 22.4 L (34.0-46.0) % RDW 23.1 H (11.5-15.5) % Plt Count 77 L (150-450) k/uL Neutrophils # (Manual) 14.90 H (1.3-7.7) k/uL Metamyelocytes # (Man) 0.36 H (0) k/uL Nucleated RBCs 25 H (0-0) /100 WBC Sodium 129 L (137-145) mmol/L Potassium 3.2 L (3.5-5.1) mmol/L BUN 39 H (7-17) mg/dL Glucose 193 H (74-99) mg/dL POC Glucose (mg/dL) 265 H (70-110) mg/dL Calcium 6.6 L (8.4-10.2) mg/dL Crossmatch 04/08/22 Range/Units 07:19 WBC (3.8-10.6) k/uL RBC (3.80-5.40) m/uL Hgb (11.4-16.0) gm/dL Hct (34.0-46.0) % RDW (11.5-15.5) % Plt Count (150-450) k/uL Neutrophils # (Manual) (1.3-7.7) k/uL Metamyelocytes # (Man) (0) k/uL Nucleated RBCs (0-0) /100 WBC Sodium (137-145) mmol/L Potassium (3.5-5.1) mmol/L BUN (7-17) mg/dL Glucose (74-99) mg/dL POC Glucose (mg/dL) 257 H (70-110) mg/dL Calcium (8.4-10.2) mg/dL Crossmatch Microbiology - Last 24 Hours (Table) 04/04/22 11:04 Blood Culture - Preliminary Blood No Growth after 72 hours 04/06/22 23:53 Urine Culture - Preliminary Urine,Catheterized Assessment and Plan Plan: recurrent GI bleeding, patient got transferred to the intensive care unit on 04/04/2022 for passing a large blood clot, yesterday evening, there was clear evidence of maroon-colored stool and the patient's hemoglobin dropped again down to 6.1. She was given another unit of packed red. Note that during this current admission, the patient has received a total of 9 units of packed RBC. Platelets are slightly low at 77. Multivitamins are being utilized. The patient is nothing by mouth. Previous EGD from 03/19/2022 showed gastritis and esophagitis. Hemodynamically in atrial fibrillation and she is in rapid ventricular response. Acute sepsis secondary to UTI with Enterobacter with hypotension secondary to bacteremia/urinary tract infection with Enterobacter. The patient is currently on IV Zosyn, subsequent wound cultures came back positive for anaerobic gram- negative bacillus and the patient was placed on IV Zosyn. Infectious disease is on the case. Prolonged Warren catheterization and suspected candidal UTI altered mental status , recovered, back to normal Atrial flutter fibrillation/flutter , the patient developed RVR along with her GI bleed and currently she is on IV amiodarone loading. She was already taken Po amiodarone and Lopressor, no anticoagulants due to episodic GIB, and the dose of metoprolol was increased up to 25 mg by mouth 3 times a day Leukocytosis GIB and the patient and an EGD (gastritis and esophagitis) on IV protonix Lumbar decompression/fusion , Noc . On 03/09/2022 she did require exploration and washout with dural repairs due to falls. Dural tear/leak and the patient had a drain that was removed and there is no ongoing leak at this point in time Cardiac arrest, brief pulseless electrical activity encountered in the operating room. Acute hypoxic/hypercapnic respiratory failure secondary to cardiac arrest/PEA. Morbid obesity, BMI of 43.0. History of right hemidiaphragm paralysis. History of right-sided breast cancer, previous lumpectomy. Dyslipidemia. Benign essential hypertension. diabetes mellitus, on a sliding scale coverage. CHF with an ejection fraction of 35-40% Fluid overload with increased lower extremity edema currently on PO Lasix 40 mg BID , The patient remains in negative fluid balance Leukocytosis Plan Keep NPO Gen surgery, possible colonoscopy She is post Golytly and her colon is cleansed Continue Zosyn and Eraxis Amiodarone loading to be continued. I think the tachycardia is probably related to intravascular blood loss and we'll give the patient a bolus of 500 mL of normal saline and monitor heart rate. Continue Lasix for now Warren catheter replaced Monitor white cell count Clinically stable No signs of any GI bleed No anticoagulants Continue PPIs We'll follow, and the patient can be transferred to medical surgical floor
[2022-04-08] MEDS ORDERED: SODIUM CHLORIDE 0.9% 500 ML 500 ML IV ONE (07:58)
[2022-04-08] MEDS: INSULIN ASPART (NovoLOG) 100 UNIT/ML VIAL SQ SCH ×4 (07:59→23:49)
[2022-04-08] MEDS: PANTOPRAZOLE 40 MG/10 ML VIAL IVP SCH ×2 (08:56→23:31)
[2022-04-08] MEDS: POTASSIUM CHLORIDE 20 MEQ in WATER FOR INJECTION 1 100ML.BAG IVPB SCH ×2 (08:56→11:33)
[2022-04-08] MEDS: ANIDULAFUNGIN 100 MG in SODIUM CHLORIDE 0.9% 100 ML IVPB SCH (08:57)
--- NOTE | 2022-04-08 10:55 | P.PN ---
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 Patient did appear very fatigue/groggy during entire encounter. Patient was mumbling when asked questions during encounter. Patient's nurse at bedside did mention that the patient had dark red bowel movement yesterday afternoon/evening. Ninfa lift was used to transfer patient from bed to chair yesterday. At this time we are waiting for patient to be transferred to a bed on 3 S. patient did have a small bowel movement couple days ago. She denies any increasing shortness of breath/chest pain, fever, nausea, vomiting, change in vision. Objective - Vital Signs Vital signs: Vital Signs Temp 99.1 F 04/08/22 08:00 Pulse 137 H 04/08/22 09:00 Resp 16 04/08/22 09:00 BP 102/53 04/08/22 09:00 Pulse Ox 87 L 04/08/22 09:00 FiO2 2 04/04/22 05:29 Intake & Output 04/07/22 04/08/22 04/08/22 18:59 06:59 18:59 Intake Total 800 1685 600 Output Total 360 520 100 Balance 440 1165 500 Weight 127.2 kg Intake: IV 800 375 600 Sodium Chloride 0.9% 1, 800 375 100 000 ml @ 10 mls/hr IV . Q24H [facility] Rx#:[id number] Sodium Chloride 0.9% 500 500 ml 500 ml @ 999 mls/hr IV .Q31M ONE Rx#:[id number] Intake, IV Titration 1000 Amount Sodium Chloride 0.9% 1, 1000 000 ml @ 999 mls/hr IV . Q1H1M ONE Rx#:[id number] Blood Product 310 Rc As-1 Unit 310 [id number] Output: Urine 360 520 100 Other: Voiding Method Indwelling Catheter Indwelling Catheter # Bowel Movements 2 ABP, PAP, CO, CI - Last Documented Arterial Blood Pressure 158/70 - Exam Surgical incision was checked yesterday and appears to be healing well this time. Sensation is present in bilateral upper extremities and lower extremities. It is equal and bilaterally intact. Patient does have good range of motion in bilateral upper and lower extremities. Patient does have limited range of motion in right hip flexion/extension and right knee flexion/extension bilaterally due to weakness/pain. 5/5 in all major motor groups in bilateral upper extremities. 4/5 in all major motor bilateral lower extremities. Radial pulse intact, 2+ bilaterally. Cap refill under 3 seconds in digits of upper extremities. Negative Homans bilaterally. Negative Susan bilaterally. Negative clonus bilateral. - Labs CBC & Chem 7: 04/08/22 06:00 04/08/22 06:00 Labs: Abnormal Lab Results - Last 24 Hours (Table) 04/06/22 04/07/22 04/07/22 Range/Units 09:28 06:17 11:35 WBC 15.6 H (3.8-10.6) k/uL RBC (3.80-5.40) m/uL Hgb (11.4-16.0) gm/dL Hct (34.0-46.0) % RDW (11.5-15.5) % Plt Count 92 L (150-450) k/uL Neutrophils # (Manual) 13.50 H (1.3-7.7) k/uL Metamyelocytes # (Man) 0.16 H (0) k/uL Nucleated RBCs 8 H (0-0) /100 WBC Sodium (137-145) mmol/L Potassium (3.5-5.1) mmol/L BUN (7-17) mg/dL Glucose (74-99) mg/dL POC Glucose (mg/dL) 134 H (70-110) mg/dL Calcium (8.4-10.2) mg/dL Crossmatch See Detail 04/07/22 04/07/22 04/07/22 Range/Units 16:49 21:00 21:49 WBC 24.0 H (3.8-10.6) k/uL RBC 1.88 L (3.80-5.40) m/uL Hgb 6.1 L* (11.4-16.0) gm/dL Hct 18.1 L* (34.0-46.0) % RDW 25.0 H (11.5-15.5) % Plt Count 79 L (150-450) k/uL Neutrophils # (Manual) (1.3-7.7) k/uL Metamyelocytes # (Man) (0) k/uL Nucleated RBCs (0-0) /100 WBC Sodium (137-145) mmol/L Potassium (3.5-5.1) mmol/L BUN (7-17) mg/dL Glucose (74-99) mg/dL POC Glucose (mg/dL) 139 H 191 H (70-110) mg/dL Calcium (8.4-10.2) mg/dL Crossmatch 04/08/22 04/08/22 04/08/22 Range/Units 06:00 06:00 07:16 WBC 18.2 H (3.8-10.6) k/uL RBC 2.42 L (3.80-5.40) m/uL Hgb 7.8 L D (11.4-16.0) gm/dL Hct 22.4 L (34.0-46.0) % RDW 23.1 H (11.5-15.5) % Plt Count 77 L (150-450) k/uL Neutrophils # (Manual) 14.90 H (1.3-7.7) k/uL Metamyelocytes # (Man) 0.36 H (0) k/uL Nucleated RBCs 25 H (0-0) /100 WBC Sodium 129 L (137-145) mmol/L Potassium 3.2 L (3.5-5.1) mmol/L BUN 39 H (7-17) mg/dL Glucose 193 H (74-99) mg/dL POC Glucose (mg/dL) 265 H (70-110) mg/dL Calcium 6.6 L (8.4-10.2) mg/dL Crossmatch 04/08/22 Range/Units 07:19 WBC (3.8-10.6) k/uL RBC (3.80-5.40) m/uL Hgb (11.4-16.0) gm/dL Hct (34.0-46.0) % RDW (11.5-15.5) % Plt Count (150-450) k/uL Neutrophils # (Manual) (1.3-7.7) k/uL Metamyelocytes # (Man) (0) k/uL Nucleated RBCs (0-0) /100 WBC Sodium (137-145) mmol/L Potassium (3.5-5.1) mmol/L BUN (7-17) mg/dL Glucose (74-99) mg/dL POC Glucose (mg/dL) 257 H (70-110) mg/dL Calcium (8.4-10.2) mg/dL Crossmatch Microbiology - Last 24 Hours (Table) 04/04/22 11:04 Blood Culture - Preliminary Blood No Growth after 72 hours 04/06/22 23:53 Urine Culture - Preliminary Urine,Catheterized Assessment and Plan Assessment: 1. 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 Status post 7 units PRBC and 1 pack platelets -bilateral lower extremity weakness, status post multiple controlled falls in- house -Enterobacter sepsis, UTI -status post cardiac arrest Plan: 1. Lumbar spondylosis; adjacent segment disease status post L2-L4 posterior fus ion with proximal junctional failure; neurogenic claudication - patient stable at bedside this morning. Awaiting for transfer to bed on 3S. We will continue follow patient during her stay in hospital. Maintain incision clean, dry, intact. Meticulous bowel cleanings. We will continue to follow patient during her stay in hospital. Plan for discharge to [facility] within the next few days. 2. Appreciate medical management 3. Pain management - oxycodone; Dilaudid; Flexeril; gabapentin; Tylenol 4. GI prophylaxis - senna; milk of mag 5. DVT prophylaxis - mechanical 6. PT/OT - WBAT w/walker and assistance 7. Encourage incentive spirometer use 8. Discharge planning - discharge to rehab within the next few days Time with Patient: Less than 30
[2022-04-08] MEDS: LACTULOSE 20 GM/30 ML CUP PO SCH ×2 (11:10→23:43)
[2022-04-08] MEDS: AMIODARONE 450 MG in DEXTROSE 5% IN WATER 250 ML IV SCH ×2 (11:10)
[2022-04-08] MEDS: AMIODARONE 200 MG TAB PO SCH (11:10)
[2022-04-08] MEDS: GABAPENTIN 400 MG CAP PO SCH ×3 (11:33→23:31)
--- NOTE | 2022-04-08 11:34 | P.PN ---
Subjective Progress Note Date: 04/08/22 Principal diagnosis: cardiac arrest Hospital Course: Patient is a 71 yo CF with a hx of A fib s/p ablation, GERD, hypertension, dyslipidemia, and right diaphragmatic paralysis who presented for T10 to Pelvis decompression and fusion with revision. Course complicated by significant blood loss. Patient was on vasopressors, also received TXA gtt. She received 7 L of lactated Ringer's. She received 1 amp of sodium bicarb intaop. She also received albumin. Patient then had a cardiac arrest. During the case she developed A. fib with RVR and then quickly transitioned into bradycardia with a low end-tidal CO2. She received 0.4 of atropine and CPR was started. She received epinephrine 0.5. She achieved ROSC. Total down time was less than 5 minutes. She was extubated on 02/25. She continued to do well but struggled with pain. She was downgraded from ICU on 03/03. On 03/06/22 patient was noted to have a significant drop in hemoglobin from 10.0 down to 7.5 and upon reevaluation on 03/07 was found to have hemoglobin of 5.4, patient required multiple transfu sions. She has received a total of 7 units PRBCs and 1 unit of platelets. She underwent a CT abdomen and pelvis and was found to have a large right chest hematoma dilated small bowel concerning for ileus. Patient was evaluated by cardiothoracic surgery and they recommended conservative management. On 03/07, patient was noted to be hypotensive with elevated WBC count of 42.3, with worsening renal function and hyperkalamia. Patient was treated with NS bolus, IV insulin/D50, Albuterol and sodium bicarbonate. She was transferred back to the ICU for septic shock requiring Levophed. Patient was started on Vancomycin and Cefepime. Blood and urine cultures were obtained and positive for Enterobacter. Infectious disease was consulted and patient was continued on Cefepime for treatment of Enterobacter UTI with secondary bacteremia and Vancomycin was discontinued. Patient was later weaned off of vasopressors and again transferred out of the ICU. Patient was started on Lasix for treatment of acute on chronic systolic heart failure with EF of 35-40%. Patient continued on Protonix for GI prophylaxis, amiodarone and metoprolol for atrial fibrillation with RVR sodium bicarb for treatment of metabolic acidosis. Pt's Xarelto remains hold at this time. Patient was evaluated by PMR and is currently not a candidate for inpatient rehab. She has been cleared by orthopedic surgery to start working with physical therapy. On 03/26/22 patient was again found to have elevating leukocytosis and repeat Wound cultures were obtained. Wound cultures were positive for pseudomonas aeruginosa, enterococcus fasciculus, and Patsy albicans. Patient to continue with Zosyn per culture and sensitivity report and as recommended by infectious disease as this may be contamination/colonization however patient is a high risk of infection so we will continue with empiric antibiotic therapy. Overnight on 03/28/22 patient again developed episodes of melena and at that time Dr. Arce, general surgeon was re-consulted. CT abdomen and pelvis revealing bilateral hydronephrosis unable to rule out obstructive etiology, concerns for fecal impaction, and persistent previously known right anterior chest wall hematoma. General surgery following and reevaluated patient secondary to concerns of fecal impaction and started patient on lactulose. Warren catheter was inserted secondary to bilateral hydronephrosis and patient was evaluated by urologist recommending continuation of Warren catheter as bilateral hydronephrosis is believed to be resulting secondary to urinary retention. On the evening of 04/03/21 patient with continued atrial tachycardia and hypotension and unable to take metoprolol secondary to low blood pressures. Patient had episode of hematochezia along with large blood clot and was philippe sferred to stepdown unit. Patient currently residing in ICU overflow while awaiting an available bed on 3 south. Had bedside manual disimpaction with general surgery. Also has a posterior anal fissure could likely because of current bleeding. On a bowel regimen. Hemoglobin continues to down trend. Requiring another 2 unit of PRBCs. Subjective: Patient seen and examined at bedside. Patient had some maroon colored bowel movements overnight after taking GoLYTELY. No kim blood noted. After that, patient became tachycardic requiring fluid boluses, started on amiodarone drip. Patient's blood pressure has down trending as well. She denies any current abdominal pain, chest pain, shortness of breath. Oral intake remains poor. Patient did not want tube feeds. Continues to have Warren catheter in place. Pertinent positives and negatives as discussed above, a complete review of sys tems was performed and all other systems are negative. Vitals Signs Reviewed. General: ill appearing, no acute distress, appears at stated age, Derm: warm, dry. Postsurgical dressing clean, dry, and intact this morning. Head: atraumatic, normocephalic, symmetric Eyes: EOMI, no lid lag, anicteric sclera Mouth: no lip lesion, dry membranes moist Cardiovascular: S1S2 irregular, tachycardic, no murmur Lungs: Respirations even, regular, and unlabored on room air. Lungs clear to auscultation bilaterally , 2 L Ext: no gross muscle atrophy, 2+ pitting edema, no contractures Abd: Warren catheter in place. Obese. Non tender to palpation. Neuro: Moving all 4 extremities independently, sensation and movement equal and intact in bilateral upper and lower extremities. Patient continues with equal Bilateral lower extremity weakness unable to lift legs off the bed independently. Psych:: Patient with depressed affect, she is pleasant and cooperative. Assessment and Plan: GI bleeding, likely lower Acute abdominal pain - resolved Fecal impaction, status post manual disimpaction Anal fissure -CT abdomen and pelvis concerning for possible fecal impaction. -Gen. surgery was consulted for reevaluation -Continue with Protonix 40 mg IVP twice daily -Hemoglobin continues to down trend -Requiring another 2 unit of PRBCs -On bowel regimen -Plan for possible colonoscopy Atrial tachycardia/fibrillation with RVR Hypotension -not on pressors Status post Cardiac arrest with ROSC Acute on chronic systolic heart failure -Cardiology following -Continuous telemetry monitoring. -Amiodarone drip restarted -Oral metoprolol tartrate -Diuretics held -also on Midodrine -Holding anticoagulation due to ongoing GI bleed Poor nutritional intake Severe protein calorie malnutrition Anasarca - Patient started on mirtazapine yesterday -Patient still refusing any tube feeding Hypokalemia -Replete and monitor Septic shock - resolved Enterobacter cloacae UTI with secondary bacteremia - resolved Lactic acidosis Leukocytosis Patsy UTI -Infectious disease following and managing antibiotic course at this time. Patient remains on Zosyn -ID started Eraxis Bilateral hydronephrosis, likely secondary to urinary retention -CT abdomen and pelvis revealing bilateral hydronephrosis unable to rule out obstructive etiology. -Renal function stable -Urology following, recommending continuation of Warren catheter Prerenal azotemia, improving Hyponatremia Hyperkalemia, resolved after discontinuation of Aldactone and lisinopril, now hypokalemia Metabolic acidosis, resolved -Continue sodium bicarb 650 mg twice a day -Nephrology following. Prediabetes with hyperglycemia, now hypoglycemia -Likely steroid induced -A1c is 6 -Continue with sliding scale Right breast hematoma - stable T10 to pelvis decompression with fusion Post-op pain -Management per primary admitting Orthopedic surgery team including DVT prophylaxis, pain management, wound/dressing care, weightbearing, and PT/OT . -PT/OT following. -Plan is for discharge to subacute rehab Right diaphragmatic paralysis -No interventions for her pulmonology Hyperlipidemia -atorvastatin. History of hypertension -Currently On Midodrine for episodes of hypotension Transaminitis -Likely ischemic hepatitis. -Resolved Thank you for allowing us to participate in the care of this pleasant patient. Do not hesitate to contact us with questions. Someone can be reached from the [facility] hospitalist group all hours of the day at [phone] or via [email or web address]. Objective - Vital Signs Vital signs: Vital Signs Temp 99.1 F 04/08/22 08:00 Pulse 137 H 04/08/22 09:00 Resp 16 04/08/22 09:00 BP 102/53 04/08/22 09:00 Pulse Ox 87 L 04/08/22 09:00 FiO2 2 04/04/22 05:29 Intake & Output 04/07/22 04/08/22 04/08/22 18:59 06:59 18:59 Intake Total 800 1685 600 Output Total 360 520 100 Balance 440 1165 500 Weight 127.2 kg Intake: IV 800 375 600 Sodium Chloride 0.9% 1, 800 375 100 000 ml @ 10 mls/hr IV . Q24H MEHUL Rx#:[id number] Sodium Chloride 0.9% 500 500 ml 500 ml @ 999 mls/hr IV .Q31M ONE Rx#:[id number] Intake, IV Titration 1000 Amount Sodium Chloride 0.9% 1, 1000 000 ml @ 999 mls/hr IV . Q1H1M ONE Rx#:[id number] Blood Product 310 Rc As-1 Unit 310 [id number] Output: Urine 360 520 100 Other: Voiding Method Indwelling Catheter Indwelling Catheter # Bowel Movements 2 ABP, PAP, CO, CI - Last Documented Arterial Blood Pressure 158/70 - Labs CBC & Chem 7: 04/08/22 06:00 04/08/22 06:00 Labs: Abnormal Lab Results - Last 24 Hours (Table) 04/06/22 04/07/22 04/07/22 Range/Units 09:28 06:17 11:35 WBC 15.6 H (3.8-10.6) k/uL RBC (3.80-5.40) m/uL Hgb (11.4-16.0) gm/dL Hct (34.0-46.0) % RDW (11.5-15.5) % Plt Count 92 L (150-450) k/uL Neutrophils # (Manual) 13.50 H (1.3-7.7) k/uL Metamyelocytes # (Man) 0.16 H (0) k/uL Nucleated RBCs 8 H (0-0) /100 WBC Sodium (137-145) mmol/L Potassium (3.5-5.1) mmol/L BUN (7-17) mg/dL Glucose (74-99) mg/dL POC Glucose (mg/dL) 134 H (70-110) mg/dL Calcium (8.4-10.2) mg/dL Crossmatch See Detail 04/07/22 04/07/22 04/07/22 Range/Units 16:49 21:00 21:49 WBC 24.0 H (3.8-10.6) k/uL RBC 1.88 L (3.80-5.40) m/uL Hgb 6.1 L* (11.4-16.0) gm/dL Hct 18.1 L* (34.0-46.0) % RDW 25.0 H (11.5-15.5) % Plt Count 79 L (150-450) k/uL Neutrophils # (Manual) (1.3-7.7) k/uL Metamyelocytes # (Man) (0) k/uL Nucleated RBCs (0-0) /100 WBC Sodium (137-145) mmol/L Potassium (3.5-5.1) mmol/L BUN (7-17) mg/dL Glucose (74-99) mg/dL POC Glucose (mg/dL) 139 H 191 H (70-110) mg/dL Calcium (8.4-10.2) mg/dL Crossmatch 04/08/22 04/08/22 04/08/22 Range/Units 06:00 06:00 07:16 WBC 18.2 H (3.8-10.6) k/uL RBC 2.42 L (3.80-5.40) m/uL Hgb 7.8 L D (11.4-16.0) gm/dL Hct 22.4 L (34.0-46.0) % RDW 23.1 H (11.5-15.5) % Plt Count 77 L (150-450) k/uL Neutrophils # (Manual) 14.90 H (1.3-7.7) k/uL Metamyelocytes # (Man) 0.36 H (0) k/uL Nucleated RBCs 25 H (0-0) /100 WBC Sodium 129 L (137-145) mmol/L Potassium 3.2 L (3.5-5.1) mmol/L BUN 39 H (7-17) mg/dL Glucose 193 H (74-99) mg/dL POC Glucose (mg/dL) 265 H (70-110) mg/dL Calcium 6.6 L (8.4-10.2) mg/dL Crossmatch 04/08/22 Range/Units 07:19 WBC (3.8-10.6) k/uL RBC (3.80-5.40) m/uL Hgb (11.4-16.0) gm/dL Hct (34.0-46.0) % RDW (11.5-15.5) % Plt Count (150-450) k/uL Neutrophils # (Manual) (1.3-7.7) k/uL Metamyelocytes # (Man) (0) k/uL Nucleated RBCs (0-0) /100 WBC Sodium (137-145) mmol/L Potassium (3.5-5.1) mmol/L BUN (7-17) mg/dL Glucose (74-99) mg/dL POC Glucose (mg/dL) 257 H (70-110) mg/dL Calcium (8.4-10.2) mg/dL Crossmatch Microbiology - Last 24 Hours (Table) 04/04/22 11:04 Blood Culture - Preliminary Blood No Growth after 72 hours 04/06/22 23:53 Urine Culture - Preliminary Urine,Catheterized
[2022-04-08 11:57] LABS: Anisocytosis Moderate; HCT 22.3 % (34.0-46.0); HGB 7.8 gm/dL (11.4-16.0); Hypochromasia Slight; MCH 32.1 pg (25.0-35.0); MCV 91.7 fL (80.0-100.0); Macrocytosis Slight; Mean Platelet Volume 11.3; Poikilocytosis Moderate; RBC 2.43 m/uL (3.80-5.40); RDW 23.5 % (11.5-15.5); WBC 24.5 k/uL (3.8-10.6)
[2022-04-08 11:58] LABS: Platelet Count 78 k/uL (150-450)
[2022-04-08 12:07] LABS: Glucose,Whole Blood 172 mg/dL (70-110)
--- NOTE | 2022-04-08 13:03 | P.PN ---
Subjective Progress Note Date: 04/08/22 The patient is a 71-year-old female currently admitted to the hospital after undergoing lumbar surgery on February 24 for severe stenosis, mechanical low back pain, and neurogenic claudication. Postoperative complications include atrial fibrillation/atrial flutter and GI bleeding. Overnight the patient had another episode of GI bleeding with drop in hemoglobin to 6.1. She subsequently developed rapid ventricular response with heart rates in the 140s to 150s. She was placed back on amiodarone bolus. According to nursing staff she did not get her evening dose of beta nic due to not taking medications by mouth. Patient was interviewed lying in bed. Labored breathing. Appears ill. Follows commands but is not responding to review of systems. GENERAL: Ill-appearing, well-nourished and in no acute distress. NECK: Supple without JVD or thyromegaly. LUNGS: Breath sounds rhonchorous to auscultation bilaterally. Respiration equal and mildly labored. HEART: Regular rate and rhythm without murmurs, rubs or gallops. S1 and S2 heard. Notably tachycardic. EXTREMITIES: Normal range of motion, +2 lower extremity pitting edema. No clubbing or cyanosis. Peripheral pulses intact and strong. VITALS: Heart rate 110, blood pressure 105/89, respiratory rate 15, afebrile, 97% on room air TELEMETRY: Atrial tachycardia with heart rates in the 120's LABS: WBC 24.5, hemoglobin 7.8, hematocrit 22.3, sodium 129, potassium 3.2, BUN 39, creatinine 0.59, magnesium 1.9 IMPRESSION: Atrial tachycardia, 2-1 conduction Cardiomyopathy of unknown etiology Status post back surgery Postoperative GI bleeding Morbid obesity Hypertension Dyslipidemia History of atrial flutter status post ablation PLAN: Continue IV amiodarone Continue low-dose beta nic Patient will need to be on anticoagulation prior to cardioversion Awaiting recommendations from general surgery/gastroenterology Further recommendations based on clinical course I am dictating on behalf of Dr Preet Leger's history/physical and assessment/plan. Objective - Vital Signs Vital signs: Vital Signs Temp 99.1 F 04/08/22 08:00 Pulse 137 H 04/08/22 09:00 Resp 16 04/08/22 09:00 BP 102/53 04/08/22 09:00 Pulse Ox 87 L 04/08/22 09:00 FiO2 2 04/04/22 05:29 Intake & Output 04/07/22 04/08/22 04/08/22 18:59 06:59 18:59 Intake Total 800 1685 600 Output Total 360 520 100 Balance 440 1165 500 Weight 127.2 kg Intake: IV 800 375 600 Sodium Chloride 0.9% 1, 800 375 100 000 ml @ 10 mls/hr IV . Q24H MEHUL Rx#:[id number] Sodium Chloride 0.9% 500 500 ml 500 ml @ 999 mls/hr IV .Q31M ONE Rx#:[id number] Intake, IV Titration 1000 Amount Sodium Chloride 0.9% 1, 1000 000 ml @ 999 mls/hr IV . Q1H1M ONE Rx#:[id number] Blood Product 310 Rc As-1 Unit 310 [id number] Output: Urine 360 520 100 Other: Voiding Method Indwelling Catheter Indwelling Catheter # Bowel Movements 2 ABP, PAP, CO, CI - Last Documented Arterial Blood Pressure 158/70 - Labs CBC & Chem 7: 04/08/22 11:42 04/08/22 06:00 Labs: Abnormal Lab Results - Last 24 Hours (Table) 04/06/22 04/07/22 04/07/22 Range/Units 09:28 16:49 21:00 WBC 24.0 H (3.8-10.6) k/uL RBC 1.88 L (3.80-5.40) m/uL Hgb 6.1 L* (11.4-16.0) gm/dL Hct 18.1 L* (34.0-46.0) % RDW 25.0 H (11.5-15.5) % Plt Count 79 L (150-450) k/uL Neutrophils # (Manual) (1.3-7.7) k/uL Metamyelocytes # (Man) (0) k/uL Nucleated RBCs (0-0) /100 WBC Sodium (137-145) mmol/L Potassium (3.5-5.1) mmol/L BUN (7-17) mg/dL Glucose (74-99) mg/dL POC Glucose (mg/dL) 139 H (70-110) mg/dL Calcium (8.4-10.2) mg/dL Crossmatch See Detail 04/07/22 04/08/22 04/08/22 Range/Units 21:49 06:00 06:00 WBC 18.2 H (3.8-10.6) k/uL RBC 2.42 L (3.80-5.40) m/uL Hgb 7.8 L D (11.4-16.0) gm/dL Hct 22.4 L (34.0-46.0) % RDW 23.1 H (11.5-15.5) % Plt Count 77 L (150-450) k/uL Neutrophils # (Manual) 14.90 H (1.3-7.7) k/uL Metamyelocytes # (Man) 0.36 H (0) k/uL Nucleated RBCs 25 H (0-0) /100 WBC Sodium 129 L (137-145) mmol/L Potassium 3.2 L (3.5-5.1) mmol/L BUN 39 H (7-17) mg/dL Glucose 193 H (74-99) mg/dL POC Glucose (mg/dL) 191 H (70-110) mg/dL Calcium 6.6 L (8.4-10.2) mg/dL Crossmatch 04/08/22 04/08/22 04/08/22 Range/Units 07:16 07:19 11:42 WBC 24.5 H (3.8-10.6) k/uL RBC 2.43 L (3.80-5.40) m/uL Hgb 7.8 L (11.4-16.0) gm/dL Hct 22.3 L (34.0-46.0) % RDW 23.5 H (11.5-15.5) % Plt Count 78 L (150-450) k/uL Neutrophils # (Manual) (1.3-7.7) k/uL Metamyelocytes # (Man) (0) k/uL Nucleated RBCs (0-0) /100 WBC Sodium (137-145) mmol/L Potassium (3.5-5.1) mmol/L BUN (7-17) mg/dL Glucose (74-99) mg/dL POC Glucose (mg/dL) 265 H 257 H (70-110) mg/dL Calcium (8.4-10.2) mg/dL Crossmatch 04/08/22 Range/Units 12:05 WBC (3.8-10.6) k/uL RBC (3.80-5.40) m/uL Hgb (11.4-16.0) gm/dL Hct (34.0-46.0) % RDW (11.5-15.5) % Plt Count (150-450) k/uL Neutrophils # (Manual) (1.3-7.7) k/uL Metamyelocytes # (Man) (0) k/uL Nucleated RBCs (0-0) /100 WBC Sodium (137-145) mmol/L Potassium (3.5-5.1) mmol/L BUN (7-17) mg/dL Glucose (74-99) mg/dL POC Glucose (mg/dL) 172 H (70-110) mg/dL Calcium (8.4-10.2) mg/dL Crossmatch Microbiology - Last 24 Hours (Table) 04/06/22 23:53 Urine Culture - Preliminary Urine,Catheterized Yeast species 04/04/22 11:04 Blood Culture - Preliminary Blood No Growth after 72 hours
--- NOTE | 2022-04-08 13:13 | P.PN ---
Subjective Progress Note Date: 04/08/22 Principal diagnosis: GI bleeding Patient had an episode of hypotension last night. Around that same time the nursing staff contacted me stating that the patient had some maroon-colored stools. The patient did take in more of her GoLYTELY last night. Hemoglobin was noted to drop from 7.2-6.1 last night. She was given one unit of blood and its up to 7.8 today. She had a brown stool this morning. Objective - Vital Signs Vital signs: Vital Signs Temp 99.1 F 04/08/22 08:00 Pulse 137 H 04/08/22 09:00 Resp 16 04/08/22 09:00 BP 102/53 04/08/22 09:00 Pulse Ox 87 L 04/08/22 09:00 FiO2 2 04/04/22 05:29 Intake & Output 04/07/22 04/08/22 04/08/22 18:59 06:59 18:59 Intake Total 800 1685 600 Output Total 360 520 100 Balance 440 1165 500 Weight 127.2 kg Intake: IV 800 375 600 Sodium Chloride 0.9% 1, 800 375 100 000 ml @ 10 mls/hr IV . Q24H MHEUL Rx#:[id number] Sodium Chloride 0.9% 500 500 ml 500 ml @ 999 mls/hr IV .Q31M ONE Rx#:[id number] Intake, IV Titration 1000 Amount Sodium Chloride 0.9% 1, 1000 000 ml @ 999 mls/hr IV . Q1H1M ONE Rx#:[id number] Blood Product 310 Rc As-1 Unit 310 [id number] Output: Urine 360 520 100 Other: Voiding Method Indwelling Catheter Indwelling Catheter # Bowel Movements 2 ABP, PAP, CO, CI - Last Documented Arterial Blood Pressure 158/70 - Exam Abdomen: Soft, nontender, nondistended Rectal: No active bleeding from the posterior anal fissure, stool in the rectal vault again brown in color with no evidence of blood - Labs CBC & Chem 7: 04/08/22 11:42 04/08/22 06:00 Labs: Abnormal Lab Results - Last 24 Hours (Table) 04/06/22 04/07/22 04/07/22 Range/Units 09:28 16:49 21:00 WBC 24.0 H (3.8-10.6) k/uL RBC 1.88 L (3.80-5.40) m/uL Hgb 6.1 L* (11.4-16.0) gm/dL Hct 18.1 L* (34.0-46.0) % RDW 25.0 H (11.5-15.5) % Plt Count 79 L (150-450) k/uL Neutrophils # (Manual) (1.3-7.7) k/uL Metamyelocytes # (Man) (0) k/uL Nucleated RBCs (0-0) /100 WBC Sodium (137-145) mmol/L Potassium (3.5-5.1) mmol/L BUN (7-17) mg/dL Glucose (74-99) mg/dL POC Glucose (mg/dL) 139 H (70-110) mg/dL Calcium (8.4-10.2) mg/dL Crossmatch See Detail 04/07/22 04/08/22 04/08/22 Range/Units 21:49 06:00 06:00 WBC 18.2 H (3.8-10.6) k/uL RBC 2.42 L (3.80-5.40) m/uL Hgb 7.8 L D (11.4-16.0) gm/dL Hct 22.4 L (34.0-46.0) % RDW 23.1 H (11.5-15.5) % Plt Count 77 L (150-450) k/uL Neutrophils # (Manual) 14.90 H (1.3-7.7) k/uL Metamyelocytes # (Man) 0.36 H (0) k/uL Nucleated RBCs 25 H (0-0) /100 WBC Sodium 129 L (137-145) mmol/L Potassium 3.2 L (3.5-5.1) mmol/L BUN 39 H (7-17) mg/dL Glucose 193 H (74-99) mg/dL POC Glucose (mg/dL) 191 H (70-110) mg/dL Calcium 6.6 L (8.4-10.2) mg/dL Crossmatch 04/08/22 04/08/22 04/08/22 Range/Units 07:16 07:19 11:42 WBC 24.5 H (3.8-10.6) k/uL RBC 2.43 L (3.80-5.40) m/uL Hgb 7.8 L (11.4-16.0) gm/dL Hct 22.3 L (34.0-46.0) % RDW 23.5 H (11.5-15.5) % Plt Count 78 L (150-450) k/uL Neutrophils # (Manual) (1.3-7.7) k/uL Metamyelocytes # (Man) (0) k/uL Nucleated RBCs (0-0) /100 WBC Sodium (137-145) mmol/L Potassium (3.5-5.1) mmol/L BUN (7-17) mg/dL Glucose (74-99) mg/dL POC Glucose (mg/dL) 265 H 257 H (70-110) mg/dL Calcium (8.4-10.2) mg/dL Crossmatch 04/08/22 Range/Units 12:05 WBC (3.8-10.6) k/uL RBC (3.80-5.40) m/uL Hgb (11.4-16.0) gm/dL Hct (34.0-46.0) % RDW (11.5-15.5) % Plt Count (150-450) k/uL Neutrophils # (Manual) (1.3-7.7) k/uL Metamyelocytes # (Man) (0) k/uL Nucleated RBCs (0-0) /100 WBC Sodium (137-145) mmol/L Potassium (3.5-5.1) mmol/L BUN (7-17) mg/dL Glucose (74-99) mg/dL POC Glucose (mg/dL) 172 H (70-110) mg/dL Calcium (8.4-10.2) mg/dL Crossmatch Microbiology - Last 24 Hours (Table) 04/06/22 23:53 Urine Culture - Preliminary Urine,Catheterized Yeast species 04/04/22 11:04 Blood Culture - Preliminary Blood No Growth after 72 hours Assessment and Plan (1) GI bleed Narrative/Plan: Patient with possible bleeding last night. The patient's rectal examination reveals a moderate amount of stool once again in the rectum. This is soft in nature and the consistency is softer than it was prior to the GoLYTELY treatment. Once very unusual is that the stool was brown in color. The patient was having melanotic stools last night you would expect to see some residual blood in the large volume of stool present in the rectal vault. Additionally patient's hemoglobin responded slightly more than anticipated with 1 unit transfusion. Continue to hold anticoagulation. Continue to monitor for bleeding. Patient is not a good candidate for colonoscopy as she will not voluntarily take in a full bowel prep. We'll follow with you. Current Visit: Yes Status: Acute Code(s): K92.2 - GASTROINTESTINAL HEMORRHAGE, UNSPECIFIED SNOMED Code(s): 82840888
[2022-04-08] MEDS: ATORVASTATIN 20 MG TAB PO SCH (15:59)
[2022-04-08] MEDS: SODIUM BICARBONATE TAB 650 MG TAB PO SCH ×2 (15:59→23:31)
[2022-04-08] MEDS: DULoxetine HCL 60 MG CAPSULE.DR PO SCH (15:59)
[2022-04-08] MEDS: MAGNESIUM OXIDE 400 MG TAB PO SCH (15:59)
[2022-04-08 16:16] LABS: Glucose,Whole Blood 209 mg/dL (70-110)
[2022-04-08] MEDS: ALBUMIN HUMAN 25% 50 ML in EMPTY BAG 1 BAG IVPB SCH ×3 (21:39→23:30)
[2022-04-08] MEDS: MIRTAZAPINE 15 MG TAB PO SCH (23:31)
[2022-04-08 23:37] LABS: Glucose,Whole Blood 164 mg/dL (70-110)
[2022-04-09] MEDS: ALBUMIN HUMAN 25% 50 ML in EMPTY BAG 1 BAG IVPB SCH (00:40)
[2022-04-09] MEDS: ACETAMINOPHEN TAB 500 MG TAB PO SCH ×4 (02:17→18:05)
[2022-04-09] MEDS: PIPERACILLIN-TAZOBACTAM 3.375 GM in SODIUM CHLORIDE 0.9% 100 ML IVPB SCH ×3 (02:19→15:25)
[2022-04-09] MEDS: AMIODARONE 450 MG in DEXTROSE 5% IN WATER 250 ML IV SCH ×4 (02:20→12:49)
[2022-04-09] MEDS: LEVOTHYROXINE 88 MCG TAB PO SCH (06:40)
[2022-04-09] MEDS: MIDODRINE 5 MG TAB PO SCH ×3 (06:40→18:04)
[2022-04-09 06:41] LABS: African American GFR (CKD) >90 (>60 ml/min/1.73 sqM); Anion Gap 1 mmol/L; Blood Urea Nitrogen 35 mg/dL (7-17); Calcium 6.9 mg/dL (8.4-10.2); Carbon Dioxide 28 mmol/L (22-30); Chloride 102 mmol/L (98-107); Glucose 120 mg/dL (74-99); Non-African American GFR(CKD) >90 (>60 ml/min/1.73 sqM); Potassium 3.3 mmol/L (3.5-5.1); Sodium 131 mmol/L (137-145)
[2022-04-09] MEDS: POTASSIUM CHLORIDE 20 MEQ in WATER FOR INJECTION 1 100ML.BAG IVPB SCH ×2 (06:47→15:31)
[2022-04-09 07:13] LABS: Glucose,Whole Blood 173 mg/dL (70-110)
[2022-04-09] MEDS: INSULIN ASPART (NovoLOG) 100 UNIT/ML VIAL SQ SCH ×4 (07:47→21:59)
--- NOTE | 2022-04-09 08:12 | P.PN ---
Subjective Progress Note Date: 04/09/22 On 04/05/2022, the patient is resting comfortably in bed. No significant complaints. The patient got transferred back to the intensive care unit for suspected GI bleed. Surgical services will again reconsulted. The patient had further evaluation and the patient was found to have an evidence of a posterior fissure. The patient's continued to have brown all movements. She has no nausea or vomiting. No abdominal pain. She was given GoLYTELY yesterday. Her WBC count at 20.7. Hemoglobin is at 7.9. She is afebrile. Her lower extremity edema has improved considerably the patient is currently on oral Lasix. She is post lumbar decompression/fusion with subsequent ureteral repair. Her previous EGD that was done on 03/19/2022 showed mild gastritis and esophagitis without evidence of any bleeding. The patient remains on PPI and the patient is on no anticoagulants for now. Cardiac rhythm is controlled A. fib/flutter. On 04/06/2022, the patient is awake. She did not show any further signs of GI bleed. Hemoglobin currently is at 7.8 and this was the last reading from yesterday and a follow-up hemoglobin is pending from today. Meanwhile, the patient is having regular diet. Her oral intake is quite diminished and the patient feels quite depressed. She had brownish bowel movement yesterday. Hemodynamically she is stable. No pressors. She is on 1 L of O2 nasal cannula. No fever. No chills. Profoundly weak in the lower extremities, motor strength is better than the upper extremity. She is communicating. Her cardiac rhythm is normal sinus although she has had episodes of tachycardia with A. fib/flutter. No IV drug use has been use. She is on a proton pump inhibitor and she is currently on Protonix 40 mg IV every 12 hours. No significant issues with pain. 04/07/2022, no evidence of any GI bleeding and the patient had another small bowel movement yesterday. Hemoglobin has remained stable. Most recent hemoglobin level is at 7.6 from yesterday. A repeat level needs to be done. Meanwhile, there is a concern for a candidal UTI. UA was abnormal. Urine cultu re was positive for Patsy and the patient was started on Eraxis by infectious disease. Warren catheter was also replaced. Electrolytes are stable, potassium is to be replaced at 3.3 and the sodium is at 1:30, B is a 33 with a creatinine of 0.6. IV fluids are in the form of normal saline at the rate of 50 mL an hour. CBC from today is still pending. Most recent numbers echoes at 21.0. Her cardiac rhythm is atrial tachycardia/flutter, 2:1. On 04/08/2022, the patient remains in intensive care unit. She finally declared herself and she started having GI bleeding in yesterday with witnessed a total of 3 episodes of maroon-colored stool. Noted that hemoglobin was already dropping. She had a low hemoglobin of 6.1 and based on that the patient was given units of packed RBC yesterday and hemoglobin came up to 7.8 from this morning. Her platelet count is 77. Her WBC count of 18.2. Her sodium level is at 129. Potassium levels at 3.2. Creatinine stable at 0.5. Blood sugar is 257. For now, the patient is on IV Protonix. Previous EGD had shown gastritis and esophagitis. Nevertheless, we are suspecting it lower source of GI bleeding. Along with a GI bleed, she went into A. fib RVR. Cardiology was involved and the patient was started on amiodarone bolus and loading and cur rently she is on a maintenance of 1 mg/m receive full loading. She was taken amiodarone 200 mg by mouth daily and she was also metoprolol 50 mg by mouth 3 times a day. Her current heart rate is in the 140 range and she remains in atrial fibrillation. Note that this patient has not received any an ticoagulation. Antibiotic has been adjusted by infectious disease and the patient is receiving a combination of excess and Zosyn. She is on oxygen at 2 L pH is resting comfortably in bed. She is profoundly weak. She has developed some trace edema lower extremities bilaterally. She is able to communicate. Denies having any abdominal pain. No hematemesis. No coffee-ground emesis. She she is on IV Protonix 40 mg twice a day. On 04/09/2022, the patient is in the intensive care area that she is having ongoing issues with GI bleeding. Hemoglobin has been fluctuating. I have discussed this issue with the general surgeon on multiple occasions. It was thought that the stool was brown based on the surgeon's evaluation. Nevertheless, this morning, hemoglobin drop down to 4.9 and I witnessed a large quantity of maroon stool and the patient's bed in the morning evaluation. Furthermore, the blood work from today showed a hemoglobin of 4.9 and the patient is obviously having ongoing issues with GI bleeding. She remains on IV Protonix. GI surgeries on the case and he'll remains aware of those changes. Her cardiac rhythm is irregular consistent with age of fibrillation/flutter. No hematemesis. No abdominal pain. Hemodynamically stable despite a significant drop in hemoglobin down to 4.9. The rest of the blood work shows a sodium level of 131, potassium level is at 3.3, BUN is 35 with a creatinine of 0.54. The patient remains on the same antibiotic coverage. The patient remains on a combination of Zosyn and Eraxis. The patient otherwise is still critical and intensive care unit and the activation for now remains episodes of atrial fibrillation fluctuating hemoglobin. Note that the patient also had an issue with itchy fibrillation with rapid ventricular response yesterday. Based on that, the patient was loaded with amiodarone and the patient continues to be on amiodarone at a dose of 0.5 mg/m. Heart rate under better control for now. Objective - Vital Signs Vital signs: Vital Signs Temp 98.9 F 04/09/22 07:33 Pulse 108 H 04/09/22 07:33 Resp 18 04/09/22 07:33 BP 106/63 04/09/22 07:33 Pulse Ox 100 04/09/22 07:33 FiO2 2 04/04/22 05:29 Intake & Output 04/08/22 04/09/22 04/09/22 18:59 06:59 18:59 Intake Total 1400 1503 503 Output Total 455 625 35 Balance 945 878 468 Intake: IV 1050 600 50 Sodium Chloride 0.9% 1, 550 600 50 000 ml @ 10 mls/hr IV . Q24H [facility] Rx#:[id number] Sodium Chloride 0.9% 500 500 ml 500 ml @ 999 mls/hr IV .Q31M [facility] Rx#:[id number] Intake, IV Titration 903 100 Amount Albumin Human 25% 50 ml 553 In Empty Bag 1 bag @ 50 mls/hr IVPB Q1H [facility] Rx#: [id number] Amiodarone 450 mg In 250 Dextrose 5% in Water 250 ml @ 0.5 MG/MIN 16.667 mls/hr IV .Q15H [facility] Rx#: [id number] Piperacillin-Tazobactam 3 100 .375 gm In Sodium Chloride 0.9% 100 ml @ 25 mls/hr IVPB Q8HR [facility] Rx# :[id number] Potassium Chloride 20 meq 100 In Water For Injection 1 100ml.bag @ 50 mls/hr IVPB Q2H [facility] Rx#: [id number] Oral 350 Blood Product 0 353 Platelet Pheresis Pas 0 353 Psoralen Unit [id number] Output: Urine 455 625 35 Other: Voiding Method Indwelling Catheter Indwelling Catheter ABP, PAP, CO, CI - Last Documented Arterial Blood Pressure 158/70 - Exam No acute distress, oriented 3. Currently on room air oxygen and the patient is calm and comfortable. Head exam was generally normal. There was no scleral icterus or corneal arcus. Mucous membranes were moist. HEENT examination is grossly unremarkable. Neck supple. Full range of motion. No adenopathy thyromegaly or neck vein distention. Cardiovascular examination reveals regular rhythm rate. S1-S2 normal. No S3 or S4. No discernible murmur noted. Heart sounds are distant. Lungs reveal clear breath sounds. Breath sounds are equal bilaterally. No adventitious lung sounds including wheezes rhonchi or crackles. Abdomen soft bowel sounds are heard. No masses or tenderness. Extremities are intact. Slight edema of the extremities. No cyanosis or clubbing. Skin is without rash or lesion. Large hematoma about the right breast. Neurologic examination is brief but nonfocal. The patient's strength is quite diminished in lower extremity bilaterally. Please refer to the spine surgeons evaluation regarding the motor function and reflexes. Cranial nerves are essentially intact and the patient is awake and alert. She is also oriented. - Labs CBC & Chem 7: 04/08/22 11:42 04/09/22 06:00 Labs: Abnormal Lab Results - Last 24 Hours (Table) 04/06/22 04/08/22 04/08/22 Range/Units 09:28 11:42 12:05 WBC 24.5 H (3.8-10.6) k/uL RBC 2.43 L (3.80-5.40) m/uL Hgb 7.8 L (11.4-16.0) gm/dL Hct 22.3 L (34.0-46.0) % RDW 23.5 H (11.5-15.5) % Plt Count 78 L (150-450) k/uL Sodium (137-145) mmol/L Potassium (3.5-5.1) mmol/L BUN (7-17) mg/dL Glucose (74-99) mg/dL POC Glucose (mg/dL) 172 H (70-110) mg/dL Calcium (8.4-10.2) mg/dL Crossmatch See Detail 04/08/22 04/08/22 04/08/22 Range/Units 16:14 17:55 23:35 WBC (3.8-10.6) k/uL RBC (3.80-5.40) m/uL Hgb (11.4-16.0) gm/dL Hct (34.0-46.0) % RDW (11.5-15.5) % Plt Count (150-450) k/uL Sodium (137-145) mmol/L Potassium 3.2 L (3.5-5.1) mmol/L BUN (7-17) mg/dL Glucose (74-99) mg/dL POC Glucose (mg/dL) 209 H 164 H (70-110) mg/dL Calcium (8.4-10.2) mg/dL Crossmatch 04/09/22 04/09/22 Range/Units 06:00 07:11 WBC (3.8-10.6) k/uL RBC (3.80-5.40) m/uL Hgb (11.4-16.0) gm/dL Hct (34.0-46.0) % RDW (11.5-15.5) % Plt Count (150-450) k/uL Sodium 131 L (137-145) mmol/L Potassium 3.3 L (3.5-5.1) mmol/L BUN 35 H (7-17) mg/dL Glucose 120 H (74-99) mg/dL POC Glucose (mg/dL) 173 H (70-110) mg/dL Calcium 6.9 L (8.4-10.2) mg/dL Crossmatch Microbiology - Last 24 Hours (Table) 04/04/22 11:04 Blood Culture - Preliminary Blood No Growth after 96 hours 04/06/22 23:53 Urine Culture - Preliminary Urine,Catheterized Yeast species Assessment and Plan Plan: recurrent GI bleeding, patient got transferred to the intensive care unit on 04/04/2022 for passing a large blood clot, yesterday evening, there was clear evidence of maroon-colored stool and the patient's hemoglobin dropped again down to 4.9, and I do suspect a lower GI bleeding. The patient will need immediate packed RBC transfusion. We'll keep the patient nothing by mouth we'll consult with Gen. surgery. Acute sepsis secondary to UTI with Enterobacter with hypotension secondary to bacteremia/urinary tract infection with Enterobacter. The patient is currently on IV Zosyn, subsequent wound cultures came back positive for anaerobic gram- negative bacillus and the patient was placed on IV Zosyn. Infectious disease is on the case. Prolonged Warren catheterization and suspected candidal UTI altered mental status , recovered, back to normal Atrial flutter fibrillation/flutter , the patient developed RVR along with her GI bleed and currently she is on IV amiodarone loading. She was already taken Po amiodarone and Lopressor, no anticoagulants due to episodic GIB, and the dose of metoprolol was increased up to 25 mg by mouth 3 times a day Leukocytosis GIB and the patient and an EGD (gastritis and esophagitis) on IV protonix Lumbar decompression/fusion , Noc . On 03/09/2022 she did require exploration and washout with dural repairs due to falls. Dural tear/leak and the patient had a drain that was removed and there is no ongoing leak at this point in time Cardiac arrest, brief pulseless electrical activity encountered in the operating room. Acute hypoxic/hypercapnic respiratory failure secondary to cardiac arrest/PEA. Morbid obesity, BMI of 43.0. History of right hemidiaphragm paralysis. History of right-sided breast cancer, previous lumpectomy. Dyslipidemia. Benign essential hypertension. diabetes mellitus, on a sliding scale coverage. CHF with an ejection fraction of 35-40% Fluid overload with increased lower extremity edema currently off Lasix Leukocytosis Plan Keep NPO Transfused with a total of 3 units of packed RBC and monitor the hemoglobin We'll discuss the case with general surgery regarding the ongoing and episodic GI bleed Continue Zosyn and Eraxis continue amiodarone 0.5 mg/m for rate control No anticoagulants Continue PPIs We'll follow, and the patient can be transferred to medical surgical floor Condition is still critical. The patient will be kept in the intensive care unit for further monitoring.
[2022-04-09 08:50] LABS: INR 1.4 (<1.2); Prothrombin Time 14.2 sec (9.0-12.0)
[2022-04-09] MEDS ORDERED: BARIUM SULFATE 450 ML ORAL.SUSP BOTTLE PO PRN (09:27)
--- NOTE | 2022-04-09 09:38 | P.PN ---
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 Patient did appear very fatigued/groggy during entire encounter. Patient was mumbling when asked questions during encounter. Patient's nurse at bedside did mention that the patient had dark red bowel movement a couple days ago. Ninfa lift was used to transfer patient from bed to chair yesterday. At this time we are waiting for patient to be transferred to a bed on 3 S. She denies any increasing shortness of breath/chest pain, fever, nausea, vomiting, change in vision. Objective - Vital Signs Vital signs: Vital Signs Temp 98.9 F 04/09/22 08:35 Pulse 110 H 04/09/22 08:35 Resp 20 04/09/22 08:35 BP 95/48 04/09/22 08:35 Pulse Ox 94 L 04/09/22 08:35 FiO2 2 04/04/22 05:29 Intake & Output 04/08/22 04/09/22 04/09/22 18:59 06:59 18:59 Intake Total 1400 1503 503 Output Total 455 625 35 Balance 945 878 468 Intake: IV 1050 600 50 Sodium Chloride 0.9% 1, 550 600 50 000 ml @ 10 mls/hr IV . Q24H [facility] Rx#:[id number] Sodium Chloride 0.9% 500 500 ml 500 ml @ 999 mls/hr IV .Q31M [facility] Rx#:[id number] Intake, IV Titration 903 100 Amount Albumin Human 25% 50 ml 553 In Empty Bag 1 bag @ 50 mls/hr IVPB Q1H [facility] Rx#: [id number] Amiodarone 450 mg In 250 Dextrose 5% in Water 250 ml @ 0.5 MG/MIN 16.667 mls/hr IV .Q15H [facility] Rx#: [id number] Piperacillin-Tazobactam 3 100 .375 gm In Sodium Chloride 0.9% 100 ml @ 25 mls/hr IVPB Q8HR [facility] Rx# :[id number] Potassium Chloride 20 meq 100 In Water For Injection 1 100ml.bag @ 50 mls/hr IVPB Q2H [facility] Rx#: [id number] Oral 350 Blood Product 0 353 Platelet Pheresis Pas 0 353 Psoralen Unit [id number] Rc As-1 Unit 0 [id number] Output: Urine 455 625 35 Other: Voiding Method Indwelling Catheter Indwelling Catheter ABP, PAP, CO, CI - Last Documented Arterial Blood Pressure 158/70 - Exam Surgical incision was checked and appears to be healing well this time. Sensation is present in bilateral upper extremities and lower extremities. It is equal and bilaterally intact. Patient does have good range of motion in bilateral upper and lower extremities. Patient does have limited range of motion in right hip flexion/extension and right knee flexion/extension bilaterally due to weakness/pain. 5/5 in all major motor groups in bilateral upper extremities. 4/5 in all major motor bilateral lower extremities. Radial pulse intact, 2+ bilaterally. Cap refill under 3 seconds in digits of upper extremities. Negative Homans bilaterally. Negative Susan bilaterally. Negative clonus bilaterally. - Labs CBC & Chem 7: 04/08/22 11:42 04/09/22 06:00 Labs: Abnormal Lab Results - Last 24 Hours (Table) 04/06/22 04/08/22 04/08/22 Range/Units 09:28 11:42 12:05 WBC 24.5 H (3.8-10.6) k/uL RBC 2.43 L (3.80-5.40) m/uL Hgb 7.8 L (11.4-16.0) gm/dL Hct 22.3 L (34.0-46.0) % RDW 23.5 H (11.5-15.5) % Plt Count 78 L (150-450) k/uL PT (9.0-12.0) sec INR (<1.2) Sodium (137-145) mmol/L Potassium (3.5-5.1) mmol/L BUN (7-17) mg/dL Glucose (74-99) mg/dL POC Glucose (mg/dL) 172 H (70-110) mg/dL Calcium (8.4-10.2) mg/dL Crossmatch See Detail 04/08/22 04/08/22 04/08/22 Range/Units 16:14 17:55 23:35 WBC (3.8-10.6) k/uL RBC (3.80-5.40) m/uL Hgb (11.4-16.0) gm/dL Hct (34.0-46.0) % RDW (11.5-15.5) % Plt Count (150-450) k/uL PT (9.0-12.0) sec INR (<1.2) Sodium (137-145) mmol/L Potassium 3.2 L (3.5-5.1) mmol/L BUN (7-17) mg/dL Glucose (74-99) mg/dL POC Glucose (mg/dL) 209 H 164 H (70-110) mg/dL Calcium (8.4-10.2) mg/dL Crossmatch 04/09/22 04/09/22 04/09/22 Range/Units 06:00 07:11 08:30 WBC (3.8-10.6) k/uL RBC (3.80-5.40) m/uL Hgb (11.4-16.0) gm/dL Hct (34.0-46.0) % RDW (11.5-15.5) % Plt Count (150-450) k/uL PT 14.2 H (9.0-12.0) sec INR 1.4 H (<1.2) Sodium 131 L (137-145) mmol/L Potassium 3.3 L (3.5-5.1) mmol/L BUN 35 H (7-17) mg/dL Glucose 120 H (74-99) mg/dL POC Glucose (mg/dL) 173 H (70-110) mg/dL Calcium 6.9 L (8.4-10.2) mg/dL Crossmatch 04/09/22 Range/Units 08:40 WBC (3.8-10.6) k/uL RBC (3.80-5.40) m/uL Hgb (11.4-16.0) gm/dL Hct (34.0-46.0) % RDW (11.5-15.5) % Plt Count (150-450) k/uL PT (9.0-12.0) sec INR (<1.2) Sodium (137-145) mmol/L Potassium (3.5-5.1) mmol/L BUN (7-17) mg/dL Glucose (74-99) mg/dL POC Glucose (mg/dL) (70-110) mg/dL Calcium (8.4-10.2) mg/dL Crossmatch See Detail Microbiology - Last 24 Hours (Table) 04/04/22 11:04 Blood Culture - Preliminary Blood No Growth after 96 hours 04/06/22 23:53 Urine Culture - Preliminary Urine,Catheterized Yeast species Assessment and Plan Assessment: 1. 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 Status post 7 units PRBC and 1 pack platelets -bilateral lower extremity weakness, status post multiple controlled falls in-house -Enterobacter sepsis, UTI -status post cardiac arrest Plan: 1. 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 Awaiting for transfer to bed on 3S. We will continue follow patient during her stay in hospital. Maintain incision clean, d ry, intact. Meticulous bowel cleanings. We will continue to follow patient during her stay in hospital. Plan for discharge to [facility] within the next few days. 2. Appreciate medical management 3. Pain management - oxycodone; Dilaudid; Flexeril; gabapentin; Tylenol 4. GI prophylaxis - senna; milk of mag 5. DVT prophylaxis - mechanical 6. PT/OT - WBAT w/walker and assistance 7. Encourage incentive spirometer use 8. Discharge planning - discharge to rehab within the next few days Time with Patient: Less than 30
[2022-04-09] MEDS: AMIODARONE 200 MG TAB PO SCH (09:41)
[2022-04-09 10:00] LABS: Anisocytosis Marked; Hypochromasia Slight; MCH 32.2 pg (25.0-35.0); MCHC 34.4 g/dL (31.0-37.0); MCV 93.6 fL (80.0-100.0); Macrocytosis Slight; Mean Platelet Volume 10.5; Poikilocytosis Marked; RBC 1.31 m/uL (3.80-5.40)
[2022-04-09 10:03] LABS: HCT 12.3 % (34.0-46.0); HGB 4.2 gm/dL (11.4-16.0); Platelet Count 73 k/uL (150-450); RDW 25.6 % (11.5-15.5)
--- NOTE | 2022-04-09 10:41 | P.PN ---
Subjective Progress Note Date: 04/09/22 Principal diagnosis: cardiac arrest Hospital Course: Patient is a 71 yo CF with a hx of A fib s/p ablation, GERD, hypertension, dyslipidemia, and right diaphragmatic paralysis who presented for T10 to Pelvis decompression and fusion with revision. Course complicated by significant blood loss. Patient was on vasopressors, also received TXA gtt. She received 7 L of lactated Ringer's. She received 1 amp of sodium bicarb intaop. She also received albumin. Patient then had a cardiac arrest. During the case she developed A. fib with RVR and then quickly transitioned into bradycardia with a low end-tidal CO2. She received 0.4 of atropine and CPR was started. She received epinephrine 0.5. She achieved ROSC. Total down time was less than 5 minutes. She was extubated on 02/25. She continued to do well but struggled with pain. She was downgraded from ICU on 03/03. On 03/06/22 patient was noted to have a significant drop in hemoglobin from 10.0 down to 7.5 and upon reevaluation on 03/07 was found to have hemoglobin of 5.4, patient required multiple transfusions. She has received a total of 7 units PRBCs and 1 unit of platelets. She underwent a CT abdomen and pelvis and was found to have a large right chest hematoma dilated small bowel concerning for ileus. Patient was evaluated by cardiothoracic surgery and they recommended conservative ma nagement. On 03/07, patient was noted to be hypotensive with elevated WBC count of 42.3, with worsening renal function and hyperkalamia. Patient was treated with NS bolus, IV insulin/D50, Albuterol and sodium bicarbonate. She was transferred back to the ICU for septic shock requiring Levophed. Patient was started on Vancomycin and Cefepime. Blood and urine cultures were obtained and positive for Enterobacter. Infectious disease was consulted and patient was continued on Cefepime for treatment of Enterobacter UTI with secondary bacteremia and Vancomycin was discontinued. Patient was later weaned off of vasopressors and again transferred out of the ICU. Patient was started on Lasix for treatment of acute on chronic systolic heart failure with EF of 35-40%. Patient continued on Protonix for GI prophylaxis, amiodarone and metoprolol for atrial fibrillation with RVR sodium bicarb for treatment of metabolic acidosis. Pt's Xarelto remains hold at this time. Patient was evaluated by PMR and is currently not a candidate for inpatient rehab. She has been cleared by orthopedic surgery to start working with physical therapy. On 03/26/22 patient was again found to have elevating leukocytosis and repeat Wound cultures were obtained. Wound cultures were positive for pseudomonas aeruginosa, enterococcus fasciculus, and Patsy albicans. Patient to continue with Zosyn per culture and sensitivity report and as recommended by infectious disease as this may be contamination/colonization however patient is a high risk of infection so we will continue with empiric antibiotic therapy. Overnight on 03/28/22 patient again developed episodes of melena and at that time Dr. Arce, general surgeon was re-consulted. CT abdomen and pelvis revealing bilateral hydronephrosis unable to rule out obstructive etiology, concerns for fecal impaction, and persistent previously known right anterior chest wall hematoma. General surgery following and reevaluated patient secondary to concerns of fecal impaction and started patient on lactulose. Warren catheter was inserted secondary to bilateral hydronephrosis and patient was evaluated by urologist recommending continuation of Warren catheter as bilateral hydronephrosis is believed to be resulting secondary to urinary retention. On the evening of 04/03/21 patient with continued atrial tachycardia and hypotension and unable to take metoprolol sec ondary to low blood pressures. Patient had episode of hematochezia along with large blood clot and was transferred back to the ICU. Had bedside manual disimpaction with general surgery. Also has a posterior anal fissure could likely because of current bleeding. On a bowel regimen. Hemoglobin continues to down trend. Requiring further blood transfusions. Consider palliative care if no further improvement. Subjective: Patient seen and examined at bedside. Patient continues to have further bloody bowel movements. Urine output is stable. Patient nutrition status is poor. Patient agreeable with possible tube feeds. However due to ongoing bleeding, patient will remain nothing by mouth and will be considered for possible endoscopy. Pertinent positives and negatives as discussed above, a complete review of systems was performed and all other systems are negative. Vitals Signs Reviewed. General: ill appearing, no acute distress, appears at stated age, Derm: warm, dry. Postsurgical dressing clean, dry, and intact this morning. Head: atraumatic, normocephalic, symmetric Eyes: EOMI, no lid lag, anicteric sclera Mouth: no lip lesion, dry membranes moist Cardiovascular: S1S2 irregular, tachycardic, no murmur Lungs: Respirations even, regular, and unlabored on room air. Lungs clear to auscultation bilaterally , 2 L Ext: no gross muscle atrophy, 2+ pitting edema, no contractures Abd: Warren catheter in place. Obese. Non tender to palpation. Neuro: Moving all 4 extremities independently, sensation and movement equal and intact in bilateral upper and lower extremities. Patient continues with equal Bilateral lower extremity weakness unable to lift legs off the bed inde pendently. Psych:: Patient with depressed affect, she is pleasant and cooperative. Assessment and Plan: GI bleeding, likely lower Acute abdominal pain - resolved Fecal impaction, status post manual disimpaction Anal fissure -CT abdomen and pelvis concerning for possible fecal impaction. -Gen. surgery was consulted for reevaluation -Continue with Protonix 40 mg IVP twice daily -Hemoglobin continues to down trend -Requiring more blood transfusions -On bowel regimen -Plan for possible endoscopy -CT abdomen and pelvis pending Atrial tachycardia/fibrillation with RVR Hypotension -not on pressors Status post Cardiac arrest with ROSC Acute on chronic systolic heart failure -Cardiology following -Continuous telemetry monitoring. -Amiodarone drip restarted -Oral metoprolol tartrate -Diuretics held -also on Midodrine -Holding anticoagulation due to ongoing GI bleed Poor nutritional intake Severe protein calorie malnutrition Anasarca - Patient started on mirtazapine -Patient now agreeable to tube feeding Hypokalemia -Replete and monitor Septic shock - resolved Enterobacter cloacae UTI with secondary bacteremia - resolved Lactic acidosis Leukocytosis Patsy UTI -Infectious disease following and managing antibiotic course at this time. Patient remains on Zosyn -ID started Eraxis Bilateral hydronephrosis, likely secondary to urinary retention -CT abdomen and pelvis revealing bilateral hydronephrosis unable to rule out obstructive etiology. -Renal function stable -Urology following, recommending continuation of Warren catheter Prerenal azotemia, improving Hyponatremia Hyperkalemia, resolved after discontinuation of Aldactone and lisinopril, now hypokalemia Metabolic acidosis, resolved -Continue sodium bicarb 650 mg twice a day -Nephrology following. Prediabetes with hyperglycemia, now hypoglycemia -Likely steroid induced -A1c is 6 -Continue with sliding scale Right breast hematoma - stable T10 to pelvis decompression with fusion Post-op pain -Management per primary admitting Orthopedic surgery team including DVT prophylaxis, pain management, wound/dressing care, weightbearing, and PT/OT . -PT/OT following. -Plan is for discharge to subacute rehab Right diaphragmatic paralysis -No interventions for her pulmonology Hyperlipidemia -atorvastatin. History of hypertension -Currently On Midodrine for episodes of hypotension Transaminitis -Likely ischemic hepatitis. -Resolved Thank you for allowing us to participate in the care of this pleasant patient. Do not hesitate to contact us with questions. Someone can be reached from the [facility] hospitalist group all hours of the day at [phone] or via [employer]. Objective - Vital Signs Vital signs: Vital Signs Temp 97.8 F 04/09/22 10:16 Pulse 111 H 04/09/22 10:16 Resp 23 04/09/22 10:16 BP 90/56 04/09/22 10:16 Pulse Ox 93 L 04/09/22 10:16 FiO2 2 04/04/22 05:29 Intake & Output 04/08/22 04/09/22 04/09/22 18:59 06:59 18:59 Intake Total 1400 1503 813 Output Total 455 625 35 Balance 945 878 778 Intake: IV 1050 600 50 Sodium Chloride 0.9% 1, 550 600 50 000 ml @ 10 mls/hr IV . Q24H [facility] Rx#:[id number] Sodium Chloride 0.9% 500 500 ml 500 ml @ 999 mls/hr IV .Q31M [facility] Rx#:[id number] Intake, IV Titration 903 100 Amount Albumin Human 25% 50 ml 553 In Empty Bag 1 bag @ 50 mls/hr IVPB Q1H [facility] Rx#: [id number] Amiodarone 450 mg In 250 Dextrose 5% in Water 250 ml @ 0.5 MG/MIN 16.667 mls/hr IV .Q15H [facility] Rx#: [id number] Piperacillin-Tazobactam 3 100 .375 gm In Sodium Chloride 0.9% 100 ml @ 25 mls/hr IVPB Q8HR [facility] Rx# :[id number] Potassium Chloride 20 meq 100 In Water For Injection 1 100ml.bag @ 50 mls/hr IVPB Q2H [facility] Rx#: [id number] Oral 350 Blood Product 0 663 Platelet Pheresis Pas 0 353 Psoralen Unit [id number] Rc As-1 Unit 310 [id number] Rc As-1 Unit 0 [id number] Output: Urine 455 625 35 Other: Voiding Method Indwelling Catheter Indwelling Catheter Indwelling Catheter ABP, PAP, CO, CI - Last Documented Arterial Blood Pressure 158/70 - Labs CBC & Chem 7: 04/09/22 08:30 04/09/22 06:00 Labs: Abnormal Lab Results - Last 24 Hours (Table) 04/06/22 04/08/22 04/08/22 Range/Units 09:28 11:42 12:05 WBC 24.5 H (3.8-10.6) k/uL RBC 2.43 L (3.80-5.40) m/uL Hgb 7.8 L (11.4-16.0) gm/dL Hct 22.3 L (34.0-46.0) % RDW 23.5 H (11.5-15.5) % Plt Count 78 L (150-450) k/uL PT (9.0-12.0) sec INR (<1.2) Sodium (137-145) mmol/L Potassium (3.5-5.1) mmol/L BUN (7-17) mg/dL Glucose (74-99) mg/dL POC Glucose (mg/dL) 172 H (70-110) mg/dL Calcium (8.4-10.2) mg/dL Crossmatch See Detail 04/08/22 04/08/22 04/08/22 Range/Units 16:14 17:55 23:35 WBC (3.8-10.6) k/uL RBC (3.80-5.40) m/uL Hgb (11.4-16.0) gm/dL Hct (34.0-46.0) % RDW (11.5-15.5) % Plt Count (150-450) k/uL PT (9.0-12.0) sec INR (<1.2) Sodium (137-145) mmol/L Potassium 3.2 L (3.5-5.1) mmol/L BUN (7-17) mg/dL Glucose (74-99) mg/dL POC Glucose (mg/dL) 209 H 164 H (70-110) mg/dL Calcium (8.4-10.2) mg/dL Crossmatch 04/09/22 04/09/22 04/09/22 Range/Units 06:00 07:11 08:30 WBC (3.8-10.6) k/uL RBC (3.80-5.40) m/uL Hgb (11.4-16.0) gm/dL Hct (34.0-46.0) % RDW (11.5-15.5) % Plt Count (150-450) k/uL PT 14.2 H (9.0-12.0) sec INR 1.4 H (<1.2) Sodium 131 L (137-145) mmol/L Potassium 3.3 L (3.5-5.1) mmol/L BUN 35 H (7-17) mg/dL Glucose 120 H (74-99) mg/dL POC Glucose (mg/dL) 173 H (70-110) mg/dL Calcium 6.9 L (8.4-10.2) mg/dL Crossmatch 04/09/22 04/09/22 Range/Units 08:30 08:40 WBC 15.5 H (3.8-10.6) k/uL RBC 1.31 L (3.80-5.40) m/uL Hgb 4.2 L* D (11.4-16.0) gm/dL Hct 12.3 L* (34.0-46.0) % RDW 25.6 H (11.5-15.5) % Plt Count 73 L (150-450) k/uL PT (9.0-12.0) sec INR (<1.2) Sodium (137-145) mmol/L Potassium (3.5-5.1) mmol/L BUN (7-17) mg/dL Glucose (74-99) mg/dL POC Glucose (mg/dL) (70-110) mg/dL Calcium (8.4-10.2) mg/dL Crossmatch See Detail Microbiology - Last 24 Hours (Table) 04/04/22 11:04 Blood Culture - Preliminary Blood No Growth after 96 hours 04/06/22 23:53 Urine Culture - Preliminary Urine,Catheterized Yeast species
--- NOTE | 2022-04-09 10:42 | P.PN ---
Subjective Progress Note Date: 04/09/22 Principal diagnosis: GI bleeding Patient overnight developed some loose brownish maroon stools. It had the odor of blood. The nursing staff was able to take a photo and send that to me this morning and it does have the appearance of blood. Simultaneous with that the patient's morning hemoglobin was noted to drop more significantly. She has had some intermittent episodes of hypotension. Packed red blood cells have been ordered. Apparently platelets were ordered as well. Platelet level on recent labs in the 70s. INR 1.4. Objective - Vital Signs Vital signs: Vital Signs Temp 97.8 F 04/09/22 10:28 Pulse 112 H 04/09/22 10:28 Resp 18 04/09/22 10:28 BP 111/65 04/09/22 10:28 Pulse Ox 100 04/09/22 10:28 FiO2 2 04/04/22 05:29 Intake & Output 04/08/22 04/09/22 04/09/22 18:59 06:59 18:59 Intake Total 1400 1503 813 Output Total 455 625 35 Balance 945 878 778 Intake: IV 1050 600 50 Sodium Chloride 0.9% 1, 550 600 50 000 ml @ 10 mls/hr IV . Q24H [facility] Rx#:[id number] Sodium Chloride 0.9% 500 500 ml 500 ml @ 999 mls/hr IV .Q31M [facility] Rx#:[id number] Intake, IV Titration 903 100 Amount Albumin Human 25% 50 ml 553 In Empty Bag 1 bag @ 50 mls/hr IVPB Q1H [facility] Rx#: [id number] Amiodarone 450 mg In 250 Dextrose 5% in Water 250 ml @ 0.5 MG/MIN 16.667 mls/hr IV .Q15H [facility] Rx#: [id number] Piperacillin-Tazobactam 3 100 .375 gm In Sodium Chloride 0.9% 100 ml @ 25 mls/hr IVPB Q8HR [facility] Rx# :[id number] Potassium Chloride 20 meq 100 In Water For Injection 1 100ml.bag @ 50 mls/hr IVPB Q2H [facility] Rx#: [id number] Oral 350 Blood Product 0 663 Platelet Pheresis Pas 0 353 Psoralen Unit [id number] Rc As-1 Unit 310 [id number] Rc As-1 Unit 0 [id number] Output: Urine 455 625 35 Other: Voiding Method Indwelling Catheter Indwelling Catheter Indwelling Catheter ABP, PAP, CO, CI - Last Documented Arterial Blood Pressure 158/70 - Exam Abdomen: Soft, nontender, nondistended - Labs CBC & Chem 7: 04/09/22 08:30 04/09/22 06:00 Labs: Abnormal Lab Results - Last 24 Hours (Table) 04/06/22 04/08/22 04/08/22 Range/Units 09:28 11:42 12:05 WBC 24.5 H (3.8-10.6) k/uL RBC 2.43 L (3.80-5.40) m/uL Hgb 7.8 L (11.4-16.0) gm/dL Hct 22.3 L (34.0-46.0) % RDW 23.5 H (11.5-15.5) % Plt Count 78 L (150-450) k/uL PT (9.0-12.0) sec INR (<1.2) Sodium (137-145) mmol/L Potassium (3.5-5.1) mmol/L BUN (7-17) mg/dL Glucose (74-99) mg/dL POC Glucose (mg/dL) 172 H (70-110) mg/dL Calcium (8.4-10.2) mg/dL Crossmatch See Detail 04/08/22 04/08/22 04/08/22 Range/Units 16:14 17:55 23:35 WBC (3.8-10.6) k/uL RBC (3.80-5.40) m/uL Hgb (11.4-16.0) gm/dL Hct (34.0-46.0) % RDW (11.5-15.5) % Plt Count (150-450) k/uL PT (9.0-12.0) sec INR (<1.2) Sodium (137-145) mmol/L Potassium 3.2 L (3.5-5.1) mmol/L BUN (7-17) mg/dL Glucose (74-99) mg/dL POC Glucose (mg/dL) 209 H 164 H (70-110) mg/dL Calcium (8.4-10.2) mg/dL Crossmatch 04/09/22 04/09/22 04/09/22 Range/Units 06:00 07:11 08:30 WBC (3.8-10.6) k/uL RBC (3.80-5.40) m/uL Hgb (11.4-16.0) gm/dL Hct (34.0-46.0) % RDW (11.5-15.5) % Plt Count (150-450) k/uL PT 14.2 H (9.0-12.0) sec INR 1.4 H (<1.2) Sodium 131 L (137-145) mmol/L Potassium 3.3 L (3.5-5.1) mmol/L BUN 35 H (7-17) mg/dL Glucose 120 H (74-99) mg/dL POC Glucose (mg/dL) 173 H (70-110) mg/dL Calcium 6.9 L (8.4-10.2) mg/dL Crossmatch 04/09/22 04/09/22 Range/Units 08:30 08:40 WBC 15.5 H (3.8-10.6) k/uL RBC 1.31 L (3.80-5.40) m/uL Hgb 4.2 L* D (11.4-16.0) gm/dL Hct 12.3 L* (34.0-46.0) % RDW 25.6 H (11.5-15.5) % Plt Count 73 L (150-450) k/uL PT (9.0-12.0) sec INR (<1.2) Sodium (137-145) mmol/L Potassium (3.5-5.1) mmol/L BUN (7-17) mg/dL Glucose (74-99) mg/dL POC Glucose (mg/dL) (70-110) mg/dL Calcium (8.4-10.2) mg/dL Crossmatch See Detail Microbiology - Last 24 Hours (Table) 04/04/22 11:04 Blood Culture - Preliminary Blood No Growth after 96 hours 04/06/22 23:53 Urine Culture - Preliminary Urine,Catheterized Yeast species Assessment and Plan (1) GI bleed Narrative/Plan: Patient with recurrent GI bleed. Options reviewed with Dr. Pulliam, Dr. Patricia's and, and I spoke at length with the patient's son Cristiano and his lo. At this time a CAT scan abdomen and pelvis with contrast has been ordered along with an MRI of the brain. We will place a nasogastric tube in order to provide the oral contrast. Depending on what that shows would then c onsider providing a formal bowel prep through the nasogastric tube with plans for upper and lower endoscopy. We also discussed the option of transfer to [facility] formal GI consultation as I do not believe we have gastroenterology available to us this week. The family will discuss amongst themselves that option. Current Visit: Yes Status: Acute Code(s): K92.2 - GASTROINTESTINAL HEMORRHAGE, UNSPECIFIED SNOMED Code(s): 09270909
--- NOTE | 2022-04-09 11:26 | XR ---
EXAMINATION TYPE: XR chest 1V portable DATE OF EXAM: 04/09/2022 10:40 AM COMPARISON: Chest radiographs from 04/04/2022 TECHNIQUE: XR chest 1V portable Portable AP radiograph of the chest. CLINICAL INDICATION:Female, 71 years old with history of NGT placement; FINDINGS: Lungs/Pleura: There is no evidence of pleural effusion, focal consolidation, or pneumothorax. Pulmonary vascularity: Unremarkable. Heart/mediastinum: Cardiomediastinal silhouette is unremarkable. Musculoskeletal: No acute osseous pathology. Extensive fixation hardware involving the back which stefany ears intact. Lines/Tubes: Nasogastric tube with side-port projecting over the distal esophagus. Distal tip is obscured by fixat ion hardware. IMPRESSION: 1. Nasogastric tube with distal tip projecting in the expected location of the distal esophagus. Con license distributor advancement of 12 cm proximal placement. 2. No acute cardiopulmonary disease/process.
[2022-04-09 11:40] LABS: Glucose,Whole Blood 134 mg/dL (70-110)
[2022-04-09] MEDS: GABAPENTIN 400 MG CAP PO SCH ×3 (11:47→21:43)
[2022-04-09] MEDS: DULoxetine HCL 60 MG CAPSULE.DR PO SCH (11:47)
[2022-04-09] MEDS: LACTULOSE 20 GM/30 ML CUP PO SCH ×2 (11:47→21:44)
[2022-04-09] MEDS: MAGNESIUM OXIDE 400 MG TAB PO SCH (11:47)
[2022-04-09] MEDS: METOPROLOL TARTRATE 50 MG TAB PO SCH ×3 (11:47→21:43)
[2022-04-09] MEDS: ATORVASTATIN 20 MG TAB PO SCH (11:47)
[2022-04-09] MEDS: SODIUM BICARBONATE TAB 650 MG TAB PO SCH ×2 (11:48→21:43)
[2022-04-09] MEDS: MAG HYDROX/AL HYDROX/SIMETH 30 ML, diphenhydrAMINE ELIXIR 75 MG, LIDOCAINE VISCOUS 2% 3... PO SCH ×9 (11:48→21:59)
[2022-04-09 11:49] LABS: Band Neutrophils % 1 %; Lymphocytes # (M) 1.92 k/uL (1.0-4.8); Monocytes # (M) 0.14 k/uL (0-1.0); Myelocytes # (M) 0.14 k/uL (0); Myelocytes % 1 %; Neutrophils % (M) 83 %; Nucleated Red Blood Cells 13 /100 WBC (0-0); Polychromasia Present; Total Cells Counted 100; WBC 13.7 k/uL (3.8-10.6)
--- NOTE | 2022-04-09 12:10 | P.PN ---
Subjective Progress Note Date: 04/09/22 The patient is a 71-year-old female currently admitted to the hospital after undergoing lumbar surgery on February 24 for severe stenosis, mechanical low back pain, and neurogenic claudication. Postoperative complications include atrial fibrillation/atrial flutter and GI bleeding. The patient continues to have GI bleeding. Her hemoglobin is now down to 4 and she is undergoing blood transfusion. NG tube has been placed and she is being kept nothing by mouth. Heart rates have improved with blood administration, averaging in the low 100s to 1 teens. Amiodarone drip continues at 0.5. Metoprolol currently being held. Patient was interviewed lying in bed. Appears ill. Follows commands but is not responding to review of systems. GENERAL: Ill-appearing, well-nourished and in no acute distress. NECK: Supple without JVD or thyromegaly. LUNGS: Breath sounds rhonchorous to auscultation bilaterally. Respiration equal and unlabored. HEART: Regular rate and rhythm without murmurs, rubs or gallops. S1 and S2 heard. Notably tachycardic. EXTREMITIES: Normal range of motion, +2 lower extremity pitting edema. No clubbing or cyanosis. Peripheral pulses intact. VITALS: Blood pressure 118/61, respiratory rate 18, pulse 109, afebrile, SpO2 100% on room air TELEMETRY: Atrial tachycardia with heart rates in the 120's LABS: WBC 24.5, hemoglobin 7.8, hematocrit 22.3, sodium 129, potassium 3.2, BUN 39, creatinine 0.59, magnesium 1.9 IMPRESSION: Atrial tachycardia, 2-1 conduction Cardiomyopathy of unknown etiology Status post back surgery Postoperative GI bleeding Morbid obesity Hypertension Dyslipidemia History of atrial flutter status post ablation PLAN: Continue IV amiodarone Low-dose IV metoprolol as needed for elevated heart rates Prognosis is guarded I am dictating on behalf of Dr Preet Leger's history/physical and assessment/plan. Objective - Vital Signs Vital signs: Vital Signs Temp 98.5 F 04/09/22 10:58 Pulse 110 H 04/09/22 11:00 Resp 18 04/09/22 11:00 BP 118/61 04/09/22 11:00 Pulse Ox 100 04/09/22 11:00 FiO2 2 04/04/22 05:29 Intake & Output 04/08/22 04/09/22 04/09/22 18:59 06:59 18:59 Intake Total 1400 1503 1533 Output Total 455 625 195 Balance 704 698 8339 Intake: IV 1050 600 150 Sodium Chloride 0.9% 1, 550 600 150 000 ml @ 10 mls/hr IV . Q24H [facility] Rx#:[id number] Sodium Chloride 0.9% 500 500 ml 500 ml @ 999 mls/hr IV .Q31M [facility] Rx#:[id number] Intake, IV Titration 903 100 Amount Albumin Human 25% 50 ml 553 In Empty Bag 1 bag @ 50 mls/hr IVPB Q1H [facility] Rx#: [id number] Amiodarone 450 mg In 250 Dextrose 5% in Water 250 ml @ 0.5 MG/MIN 16.667 mls/hr IV .Q15H [facility] Rx#: [id number] Piperacillin-Tazobactam 3 100 .375 gm In Sodium Chloride 0.9% 100 ml @ 25 mls/hr IVPB Q8HR [facility] Rx# :[id number] Potassium Chloride 20 meq 100 In Water For Injection 1 100ml.bag @ 50 mls/hr IVPB Q2H [facility] Rx#: [id number] Oral 350 Blood Product 0 1283 Platelet Pheresis Pas 0 353 Psoralen Unit [id number] Rc As-1 Unit 310 [id number] Rc As-1 Unit 0 [id number] Output: Urine 455 625 195 Other: Voiding Method Indwelling Catheter Indwelling Catheter Indwelling Catheter ABP, PAP, CO, CI - Last Documented Arterial Blood Pressure 158/70 - Labs CBC & Chem 7: 04/09/22 08:30 04/09/22 06:00 Labs: Abnormal Lab Results - Last 24 Hours (Table) 04/06/22 04/08/22 04/08/22 Range/Units 09:28 12:05 16:14 WBC (3.8-10.6) k/uL RBC (3.80-5.40) m/uL Hgb (11.4-16.0) gm/dL Hct (34.0-46.0) % RDW (11.5-15.5) % Plt Count (150-450) k/uL Neutrophils # (Manual) (1.3-7.7) k/uL Myelocytes # (Manual) (0) k/uL Nucleated RBCs (0-0) /100 WBC PT (9.0-12.0) sec INR (<1.2) Sodium (137-145) mmol/L Potassium (3.5-5.1) mmol/L BUN (7-17) mg/dL Glucose (74-99) mg/dL POC Glucose (mg/dL) 172 H 209 H (70-110) mg/dL Calcium (8.4-10.2) mg/dL Crossmatch See Detail 04/08/22 04/08/22 04/09/22 Range/Units 17:55 23:35 06:00 WBC (3.8-10.6) k/uL RBC (3.80-5.40) m/uL Hgb (11.4-16.0) gm/dL Hct (34.0-46.0) % RDW (11.5-15.5) % Plt Count (150-450) k/uL Neutrophils # (Manual) (1.3-7.7) k/uL Myelocytes # (Manual) (0) k/uL Nucleated RBCs (0-0) /100 WBC PT (9.0-12.0) sec INR (<1.2) Sodium 131 L (137-145) mmol/L Potassium 3.2 L 3.3 L (3.5-5.1) mmol/L BUN 35 H (7-17) mg/dL Glucose 120 H (74-99) mg/dL POC Glucose (mg/dL) 164 H (70-110) mg/dL Calcium 6.9 L (8.4-10.2) mg/dL Crossmatch 04/09/22 04/09/22 04/09/22 Range/Units 07:11 08:30 08:30 WBC 13.7 H (3.8-10.6) k/uL RBC 1.31 L (3.80-5.40) m/uL Hgb 4.2 L* D (11.4-16.0) gm/dL Hct 12.3 L* (34.0-46.0) % RDW 25.6 H (11.5-15.5) % Plt Count 73 L (150-450) k/uL Neutrophils # (Manual) 11.50 H (1.3-7.7) k/uL Myelocytes # (Manual) 0.14 H (0) k/uL Nucleated RBCs 13 H (0-0) /100 WBC PT 14.2 H (9.0-12.0) sec INR 1.4 H (<1.2) Sodium (137-145) mmol/L Potassium (3.5-5.1) mmol/L BUN (7-17) mg/dL Glucose (74-99) mg/dL POC Glucose (mg/dL) 173 H (70-110) mg/dL Calcium (8.4-10.2) mg/dL Crossmatch 04/09/22 04/09/22 Range/Units 08:40 11:38 WBC (3.8-10.6) k/uL RBC (3.80-5.40) m/uL Hgb (11.4-16.0) gm/dL Hct (34.0-46.0) % RDW (11.5-15.5) % Plt Count (150-450) k/uL Neutrophils # (Manual) (1.3-7.7) k/uL Myelocytes # (Manual) (0) k/uL Nucleated RBCs (0-0) /100 WBC PT (9.0-12.0) sec INR (<1.2) Sodium (137-145) mmol/L Potassium (3.5-5.1) mmol/L BUN (7-17) mg/dL Glucose (74-99) mg/dL POC Glucose (mg/dL) 134 H (70-110) mg/dL Calcium (8.4-10.2) mg/dL Crossmatch See Detail Microbiology - Last 24 Hours (Table) 04/04/22 11:04 Blood Culture - Preliminary Blood No Growth after 96 hours 04/06/22 23:53 Urine Culture - Preliminary Urine,Catheterized Yeast species
--- NOTE | 2022-04-09 12:10 | CT ---
EXAMINATION TYPE: CT abdomen pelvis wo con CT DLP: 1892.4 mGycm, Automated exposure control for dose reduction was used. DATE OF EXAM: 04/09/2022 11:39 AM COMPARISON: CT abdomen pelvis most recent from 03/07/[address] chest 02/24/2022. CLINICAL INDICATION:Female, 71 years old with history of Continued GI sx; Neurogenic claudication, Co ntinued GI sx TECHNIQUE: Axial CT of the abdomen and pelvis. Sagittal and coronal reformats were created on a [employer] workstation. Contrast used: None Oral contrast used: without Oral Contrast FINDINGS: LOWER CHEST: Redemonstration of right chest wall probable hematoma/seroma. Now measuring 10.5 x 4.8 c m similar prior. Heart is mildly enlarged for size. Coronary artery atherosclerosis. ABDOMEN LIVER: Unremarkable GALLBLADDER AND BILE DUCTS: The gallbladder is surgically absent. PANCREAS: Unremarkable. SPLEEN: Unremarkable. ADRENAL GLANDS: Unremarkable. KIDNEYS AND URETERS: No evidence of hydronephrosis or renal calculus. Left renal sinus cyst she may h ave increased density in today's exam. Streak artifact limits evaluation. PELVIS BLADDER: Nondistended with Warren catheter in place. REPRODUCTIVE: Unremarkable. ABDOMEN & PELVIS STOMACH AND BOWEL: No evidence of bowel obstruction. Large stool burden throughout the colon particul gulshan the rectum. Nasogastric tube terminates within the gastric lumen. The appendix is not definitive ly visualized. Anterior duodenal diverticulum similar back to 2017. PERITONEUM/RETROPERITONEUM: No evidence of pneumoperitoneum or free fluid. . VASCULATURE: No evidence of aortic aneurysm. MUSCULOSKELETAL: No acute osseous abnormalities, extensive surgical changes to the lumbar spine. Hard kaiser appears intact. LYMPH NODES: No gross evidence for lymphadenopathy. SOFT TISSUE/ABDOMINAL WALL: Unremarkable IMPRESSION: 1. No evidence of bowel obstruction. Nasogastric tube is in appropriate position. There is a large s tool burden within the rectum. No evidence for bowel wall thickening. No definitive acute intralumina l process not or significant change from prior. 2. Right chest wall hematoma/seroma remains present similar to 03/07/2022. 3. Warren catheter in appropriate position. 4. Higher density left renal cyst had a simple appearance back on 01/05/2017. 5. Mild cardiomegaly.
[2022-04-09] MEDS: PANTOPRAZOLE 40 MG/10 ML VIAL IVP SCH ×2 (12:45→21:43)
[2022-04-09] MEDS: SODIUM CHLORIDE 0.9% 1,000 ML IV SCH (12:50)
[2022-04-09] MEDS ORDERED: POTASSIUM CHLORIDE 20 MEQ in WATER FOR INJECTION 1 100ML.BAG IVPB SCH (15:30)
[2022-04-09] MEDS: ANIDULAFUNGIN 100 MG in SODIUM CHLORIDE 0.9% 100 ML IVPB SCH (16:07)
[2022-04-09 16:10] LABS: Anisocytosis Slight; MCH 32.3 pg (25.0-35.0); MCHC 35.8 g/dL (31.0-37.0); MCV 90.2 fL (80.0-100.0); Mean Platelet Volume 10.5; Poikilocytosis Slight; RDW 18.7 % (11.5-15.5)
[2022-04-09 16:37] LABS: Glucose,Whole Blood 153 mg/dL (70-110)
[2022-04-09] MEDS ORDERED: PEG 3350 (236 GM/BTL) + LYTES 4,000 ML BOTTLE PO ONE (16:39)
--- NOTE | 2022-04-09 17:08 | P.PN ---
Subjective Progress Note Date: 04/08/22 Principal diagnosis: UTI and bacteremia Patient is a 71-year-old female with a past medical history difficult for atrial fibrillation flutter hypertension hyperlipidemia hypothyroidism right breast cancer electively admitted to the hospital more than 2 weeks ago 022 for T10 to lumbar spine revision decompression and posterior lateral interbody fusion, patient did have a episode of hypotension and elevated white count requiring admission to the ICU patient did have a positive UA and gram- negative bacteremia and is scheduled for exploration of the thoracolumbar incision completed on 03/09/2022 with apparently no evidence of any abscess On today's evaluation that is 04/08/2022 the patient continues to be afebrile , the patient is breathing comfortably on 2 L nasal cannula, the patient denies any chest pain shortness of breath , the patient did have occasional dry cough, the patient had been complaining of some nausea but no vomiting, no abdominal discomfort and no diarrhea reported by the nursing staff Objective - Vital Signs Vital signs: Vital Signs Temp 99.1 F 04/08/22 08:00 Pulse 137 H 04/08/22 09:00 Resp 16 04/08/22 09:00 BP 102/53 04/08/22 09:00 Pulse Ox 87 L 04/08/22 09:00 FiO2 2 04/04/22 05:29 Intake & Output 04/07/22 04/08/22 04/08/22 18:59 06:59 18:59 Intake Total 800 1685 600 Output Total 360 520 100 Balance 440 1165 500 Weight 127.2 kg Intake: IV 800 375 600 Sodium Chloride 0.9% 1, 800 375 100 000 ml @ 10 mls/hr IV . Q24H [facility] Rx#:[id number] Sodium Chloride 0.9% 500 500 ml 500 ml @ 999 mls/hr IV .Q31M [facility] Rx#:[id number] Intake, IV Titration 1000 Amount Sodium Chloride 0.9% 1, 1000 000 ml @ 999 mls/hr IV . Q1H1M [facility] Rx#:[id number] Blood Product 310 Rc As-1 Unit 310 [id number] Output: Urine 360 520 100 Other: Voiding Method Indwelling Catheter Indwelling Catheter # Bowel Movements 2 ABP, PAP, CO, CI - Last Documented Arterial Blood Pressure 158/70 - Exam GENERAL DESCRIPTION: An elderly female lying in bed in no distress RESPIRATORY SYSTEM: Unlabored breathing , decreased breath sounds at bases HEART: S1 S2 regular rate and rhythm , ABDOMEN: Soft , no tenderness Lower lumbar spine incision site is currently dressed EXTREMITIES: Diffuse swelling bilateral lower extremity - Labs CBC & Chem 7: 04/09/22 08:30 04/09/22 06:00 Labs: Abnormal Lab Results - Last 24 Hours (Table) 04/06/22 04/07/22 04/07/22 Range/Units 09:28 16:49 21:00 WBC 24.0 H (3.8-10.6) k/uL RBC 1.88 L (3.80-5.40) m/uL Hgb 6.1 L* (11.4-16.0) gm/dL Hct 18.1 L* (34.0-46.0) % RDW 25.0 H (11.5-15.5) % Plt Count 79 L (150-450) k/uL Neutrophils # (Manual) (1.3-7.7) k/uL Metamyelocytes # (Man) (0) k/uL Nucleated RBCs (0-0) /100 WBC Sodium (137-145) mmol/L Potassium (3.5-5.1) mmol/L BUN (7-17) mg/dL Glucose (74-99) mg/dL POC Glucose (mg/dL) 139 H (70-110) mg/dL Calcium (8.4-10.2) mg/dL Crossmatch See Detail 04/07/22 04/08/22 04/08/22 Range/Units 21:49 06:00 06:00 WBC 18.2 H (3.8-10.6) k/uL RBC 2.42 L (3.80-5.40) m/uL Hgb 7.8 L D (11.4-16.0) gm/dL Hct 22.4 L (34.0-46.0) % RDW 23.1 H (11.5-15.5) % Plt Count 77 L (150-450) k/uL Neutrophils # (Manual) 14.90 H (1.3-7.7) k/uL Metamyelocytes # (Man) 0.36 H (0) k/uL Nucleated RBCs 25 H (0-0) /100 WBC Sodium 129 L (137-145) mmol/L Potassium 3.2 L (3.5-5.1) mmol/L BUN 39 H (7-17) mg/dL Glucose 193 H (74-99) mg/dL POC Glucose (mg/dL) 191 H (70-110) mg/dL Calcium 6.6 L (8.4-10.2) mg/dL Crossmatch 04/08/22 04/08/22 04/08/22 Range/Units 07:16 07:19 11:42 WBC 24.5 H (3.8-10.6) k/uL RBC 2.43 L (3.80-5.40) m/uL Hgb 7.8 L (11.4-16.0) gm/dL Hct 22.3 L (34.0-46.0) % RDW 23.5 H (11.5-15.5) % Plt Count 78 L (150-450) k/uL Neutrophils # (Manual) (1.3-7.7) k/uL Metamyelocytes # (Man) (0) k/uL Nucleated RBCs (0-0) /100 WBC Sodium (137-145) mmol/L Potassium (3.5-5.1) mmol/L BUN (7-17) mg/dL Glucose (74-99) mg/dL POC Glucose (mg/dL) 265 H 257 H (70-110) mg/dL Calcium (8.4-10.2) mg/dL Crossmatch 04/08/22 Range/Units 12:05 WBC (3.8-10.6) k/uL RBC (3.80-5.40) m/uL Hgb (11.4-16.0) gm/dL Hct (34.0-46.0) % RDW (11.5-15.5) % Plt Count (150-450) k/uL Neutrophils # (Manual) (1.3-7.7) k/uL Metamyelocytes # (Man) (0) k/uL Nucleated RBCs (0-0) /100 WBC Sodium (137-145) mmol/L Potassium (3.5-5.1) mmol/L BUN (7-17) mg/dL Glucose (74-99) mg/dL POC Glucose (mg/dL) 172 H (70-110) mg/dL Calcium (8.4-10.2) mg/dL Crossmatch Microbiology - Last 24 Hours (Table) 04/04/22 11:04 Blood Culture - Preliminary Blood No Growth after 96 hours 04/06/22 23:53 Urine Culture - Preliminary Urine,Catheterized Yeast species Assessment and Plan (1) Sepsis Current Visit: Yes Status: Acute Code(s): A41.9 - SEPSIS, UNSPECIFIED ORGANISM SNOMED Code(s): 76849602 Plan: 1-patient with elevated white count and concern for possible maceration of the lower end of the incision cultures obtained per hospitalist which are currently growing enterococcus and Pseudomonas along with anaerobe and Patsy possible colonization however the patient is high risk of infection as per discussion with the spine surgery and has been on suppressive Zosyn. 2-patient with episode of GI bleeding and required admission to the ICU/3 S. both surgery and GI rest following the patient closely 3patient urine cultures came back positive with patsy cannot use Diflucan because of the patient on the medication interacting , the patient Warren catheter has been changed repeat UA is still positive patient to continue with Eraxis and monitor clinical course closely Time with Patient: Less than 30
[2022-04-09 17:10] LABS: Platelet Count 26 k/uL (150-450)
--- NOTE | 2022-04-09 17:10 | P.PN ---
Subjective Progress Note Date: 04/09/22 Principal diagnosis: UTI and bacteremia Patient is a 71-year-old female with a past medical history difficult for atrial fibrillation flutter hypertension hyperlipidemia hypothyroidism right breast cancer electively admitted to the hospital more than 2 weeks ago 022 for T10 to lumbar spine revision decompression and posterior lateral interbody fusion, patient did have a episode of hypotension and elevated white count requiring admission to the ICU patient did have a positive UA and gram- negative bacteremia and is scheduled for exploration of the thoracolumbar incision completed on 03/09/2022 with apparently no evidence of any abscess On today's evaluation that is 04/09/2022 the patient denies any fever or any chills , the patient is breathing comfortably on 2 L nasal cannula, the patient denies any chest pain shortness of breath , the patient denies any worsening cough or sputum production, nausea but no vomiting no abdominal pain patient noticed to have significant drop in hemoglobin down to 4.2 and is currently getting blood transfusions Objective - Vital Signs Vital signs: Vital Signs Temp 98.2 F 04/09/22 15:00 Pulse 107 H 04/09/22 15:00 Resp 14 04/09/22 15:00 BP 101/65 04/09/22 15:00 Pulse Ox 96 04/09/22 15:00 FiO2 2 04/04/22 05:29 Intake & Output 04/08/22 04/09/22 04/09/22 18:59 06:59 18:59 Intake Total 1400 1503 2563 Output Total 455 625 437 Balance 263 686 9999 Intake: IV 1050 600 250 Sodium Chloride 0.9% 1, 550 600 150 000 ml @ 10 mls/hr IV . Q24H [facility] Rx#:[id number] Sodium Chloride 0.9% 1, 100 000 ml @ 50 mls/hr IV . Q20H [facility] Rx#:[id number] Sodium Chloride 0.9% 500 500 ml 500 ml @ 999 mls/hr IV .Q31M [facility] Rx#:[id number] Intake, IV Titration 903 100 Amount Albumin Human 25% 50 ml 553 In Empty Bag 1 bag @ 50 mls/hr IVPB Q1H [facility] Rx#: [id number] Amiodarone 450 mg In 250 Dextrose 5% in Water 250 ml @ 0.5 MG/MIN 16.667 mls/hr IV .Q15H [facility] Rx#: [id number] Piperacillin-Tazobactam 3 100 .375 gm In Sodium Chloride 0.9% 100 ml @ 25 mls/hr IVPB Q8HR [facility] Rx# :[id number] Potassium Chloride 20 meq 100 In Water For Injection 1 100ml.bag @ 50 mls/hr IVPB Q2H [facility] Rx#: [id number] Oral 350 Blood Product 0 2213 Platelet Pheresis Pas 0 353 Psoralen Unit [id number] Rc As-1 Unit 310 [id number] Rc As-1 Unit 310 [id number] Rc As-1 Unit 310 [id number] Output: Urine 455 625 435 Stool 2 Other: Voiding Method Indwelling Catheter Indwelling Catheter Indwelling Catheter ABP, PAP, CO, CI - Last Documented Arterial Blood Pressure 158/70 - Exam GENERAL DESCRIPTION: An elderly female lying in bed in no distress RESPIRATORY SYSTEM: Unlabored breathing , decreased breath sounds at bases HEART: S1 S2 regular rate and rhythm , ABDOMEN: Soft , no tenderness Lower lumbar spine incision site is currently dressed EXTREMITIES: Diffuse swelling bilateral lower extremity - Labs CBC & Chem 7: 04/09/22 08:30 04/09/22 06:00 Labs: Abnormal Lab Results - Last 24 Hours (Table) 04/06/22 04/08/22 04/08/22 Range/Units 09:28 17:55 23:35 WBC (3.8-10.6) k/uL RBC (3.80-5.40) m/uL Hgb (11.4-16.0) gm/dL Hct (34.0-46.0) % RDW (11.5-15.5) % Plt Count (150-450) k/uL Neutrophils # (Manual) (1.3-7.7) k/uL Myelocytes # (Manual) (0) k/uL Nucleated RBCs (0-0) /100 WBC PT (9.0-12.0) sec INR (<1.2) Sodium (137-145) mmol/L Potassium 3.2 L (3.5-5.1) mmol/L BUN (7-17) mg/dL Glucose (74-99) mg/dL POC Glucose (mg/dL) 164 H (70-110) mg/dL Calcium (8.4-10.2) mg/dL Crossmatch See Detail 04/09/22 04/09/22 04/09/22 Range/Units 06:00 07:11 08:30 WBC (3.8-10.6) k/uL RBC (3.80-5.40) m/uL Hgb (11.4-16.0) gm/dL Hct (34.0-46.0) % RDW (11.5-15.5) % Plt Count (150-450) k/uL Neutrophils # (Manual) (1.3-7.7) k/uL Myelocytes # (Manual) (0) k/uL Nucleated RBCs (0-0) /100 WBC PT 14.2 H (9.0-12.0) sec INR 1.4 H (<1.2) Sodium 131 L (137-145) mmol/L Potassium 3.3 L (3.5-5.1) mmol/L BUN 35 H (7-17) mg/dL Glucose 120 H (74-99) mg/dL POC Glucose (mg/dL) 173 H (70-110) mg/dL Calcium 6.9 L (8.4-10.2) mg/dL Crossmatch 04/09/22 04/09/22 04/09/22 Range/Units 08:30 08:40 11:38 WBC 13.7 H (3.8-10.6) k/uL RBC 1.31 L (3.80-5.40) m/uL Hgb 4.2 L* D (11.4-16.0) gm/dL Hct 12.3 L* (34.0-46.0) % RDW 25.6 H (11.5-15.5) % Plt Count 73 L (150-450) k/uL Neutrophils # (Manual) 11.50 H (1.3-7.7) k/uL Myelocytes # (Manual) 0.14 H (0) k/uL Nucleated RBCs 13 H (0-0) /100 WBC PT (9.0-12.0) sec INR (<1.2) Sodium (137-145) mmol/L Potassium (3.5-5.1) mmol/L BUN (7-17) mg/dL Glucose (74-99) mg/dL POC Glucose (mg/dL) 134 H (70-110) mg/dL Calcium (8.4-10.2) mg/dL Crossmatch See Detail 04/09/22 Range/Units 16:35 WBC (3.8-10.6) k/uL RBC (3.80-5.40) m/uL Hgb (11.4-16.0) gm/dL Hct (34.0-46.0) % RDW (11.5-15.5) % Plt Count (150-450) k/uL Neutrophils # (Manual) (1.3-7.7) k/uL Myelocytes # (Manual) (0) k/uL Nucleated RBCs (0-0) /100 WBC PT (9.0-12.0) sec INR (<1.2) Sodium (137-145) mmol/L Potassium (3.5-5.1) mmol/L BUN (7-17) mg/dL Glucose (74-99) mg/dL POC Glucose (mg/dL) 153 H (70-110) mg/dL Calcium (8.4-10.2) mg/dL Crossmatch Microbiology - Last 24 Hours (Table) 04/04/22 11:04 Blood Culture - Preliminary Blood No Growth after 120 hours 04/06/22 23:53 Urine Culture - Final Urine,Catheterized Patsy albicans Assessment and Plan (1) Sepsis Current Visit: Yes Status: Acute Code(s): A41.9 - SEPSIS, UNSPECIFIED ORGANISM SNOMED Code(s): 66799076 Plan: 1-patient with elevated white count and concern for possible maceration of the lower end of the incision cultures obtained per hospitalist which are currently growing enterococcus and Pseudomonas along with anaerobe and Patsy possible colonization however the patient is high risk of infection as per discussion with the spine surgery and has been on suppressive Zosyn. 2-patient with episode of GI bleeding and required admission to the ICU/3 S. both surgery and GI rest following the patient closely, currently getting bowel prep for possible colonoscopy 3patient with a cath associated UTI urine has been positive for Patsy becomes Diflucan could not be used because of drug interaction, patient is on Eraxis white count is down to 13,000 Time with Patient: Less than 30
[2022-04-09 17:16] LABS: Anisocytosis (M) Present; Band Neutrophils % 6 %; Lymphocytes # (M) 0.44 k/uL (1.0-4.8); Metamyelocytes # (M) 0.15 k/uL (0); Metamyelocytes % 1 %; Monocytes # (M) 0.15 k/uL (0-1.0); Neutrophils % (M) 89 %; Nucleated Red Blood Cells 21 /100 WBC (0-0); Poikilocytosis (M) Present; Polychromasia Present; Total Cells Counted 200; WBC 14.5 k/uL (3.8-10.6)
[2022-04-09] MEDS: MIRTAZAPINE 15 MG TAB PO SCH (21:43)
[2022-04-09 22:01] LABS: Glucose,Whole Blood 139 mg/dL (70-110)
[2022-04-10] MEDS: ACETAMINOPHEN TAB 500 MG TAB PO SCH ×4 (03:01→16:38)
[2022-04-10] MEDS: PIPERACILLIN-TAZOBACTAM 3.375 GM in SODIUM CHLORIDE 0.9% 100 ML IVPB SCH ×3 (03:18→16:36)
[2022-04-10] MEDS: SODIUM CHLORIDE 0.9% 1,000 ML IV SCH (03:18)
[2022-04-10] MEDS: HYDROcodone/APAP 10-325MG 1 EACH TAB PO PRN ×4 (06:17→20:26)
[2022-04-10] MEDS: LEVOTHYROXINE 88 MCG TAB PO SCH (06:18)
[2022-04-10] MEDS: MIDODRINE 5 MG TAB PO SCH ×3 (06:18→16:36)
[2022-04-10 06:20] LABS: Anisocytosis Moderate; HCT 25.8 % (34.0-46.0); HGB 9.2 gm/dL (11.4-16.0); Hypochromasia Slight; MCH 31.8 pg (25.0-35.0); MCHC 35.6 g/dL (31.0-37.0); MCV 89.2 fL (80.0-100.0); Mean Platelet Volume 11.7; Poikilocytosis Moderate; Potassium 3.5 mmol/L (3.5-5.1); RBC 2.89 m/uL (3.80-5.40); RDW 20.1 % (11.5-15.5)
[2022-04-10 06:21] LABS: African American GFR (CKD) >90 (>60 ml/min/1.73 sqM); Anion Gap 1 mmol/L; Blood Urea Nitrogen 33 mg/dL (7-17); Calcium 7.1 mg/dL (8.4-10.2); Carbon Dioxide 27 mmol/L (22-30); Chloride 106 mmol/L (98-107); Glucose 120 mg/dL (74-99); Non-African American GFR(CKD) >90 (>60 ml/min/1.73 sqM); Sodium 134 mmol/L (137-145)
[2022-04-10 06:22] LABS: Platelet Count 41 k/uL (150-450)
[2022-04-10 06:28] LABS: Glucose,Whole Blood 145 mg/dL (70-110)
[2022-04-10 06:41] LABS: Band Neutrophils % 6 %; Metamyelocytes % 1 %; Neutrophils % (M) 74 %; Nucleated Red Blood Cells 10 /100 WBC (0-0); Total Cells Counted 200
[2022-04-10 06:42] LABS: Anisocytosis (M) Present; Lymphocytes # (M) 1.76 k/uL (1.0-4.8); Metamyelocytes # (M) 0.14 k/uL (0); Monocytes # (M) 0.81 k/uL (0-1.0); Poikilocytosis (M) Present; Polychromasia Present; WBC 13.5 k/uL (3.8-10.6)
[2022-04-10] MEDS: POTASSIUM CHLORIDE 20 MEQ in WATER FOR INJECTION 1 100ML.BAG IVPB SCH ×2 (07:05→08:33)
--- NOTE | 2022-04-10 08:03 | P.PN ---
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 She is very tired still. She is s/p 4 uPRBC yesterday and 1 pack plts day before. Her Labs rebounded well but still peak and then decrease again. Her vitals are better this AM. She is still very very weak and does not cooperate well with exam. She answers questions however and states she has pain all over. Denies any LOZANO, blurred vision, change in vision, n, v, sob, cp at this time. Objective - Vital Signs Vital signs: Vital Signs Temp 97.6 F 04/10/22 06:00 Pulse 107 H 04/10/22 07:00 Resp 17 04/10/22 07:00 BP 121/67 04/10/22 07:00 Pulse Ox 99 04/10/22 06:00 FiO2 2 04/04/22 05:29 Intake & Output 04/09/22 04/10/22 04/10/22 18:59 06:59 18:59 Intake Total 2663 700 150 Output Total 517 773 50 Balance 2146 -73 100 Intake: IV 350 700 150 Piperacillin-Tazobactam 3 100 100 .375 gm In Sodium Chloride 0.9% 100 ml @ 25 mls/hr IVPB Q8HR [facility] Rx# :[id number] Sodium Chloride 0.9% 1, 150 000 ml @ 10 mls/hr IV . Q24H [facility] Rx#:[id number] Sodium Chloride 0.9% 1, 200 600 50 000 ml @ 50 mls/hr IV . Q20H [facility] Rx#:[id number] Intake, IV Titration 100 Amount Potassium Chloride 20 meq 100 In Water For Injection 1 100ml.bag @ 50 mls/hr IVPB Q2H [facility] Rx#: [id number] Blood Product 2213 Platelet Pheresis Pas 353 Psoralen Unit [id number] Rc As-1 Unit 310 [id number] Rc As-1 Unit 310 [id number] Rc As-1 Unit 310 [id number] Output: Urine 515 770 50 Stool 2 3 Other: Voiding Method Indwelling Catheter Indwelling Catheter # Bowel Movements 1 ABP, PAP, CO, CI - Last Documented Arterial Blood Pressure 158/70 - Exam Exam is stable from spine standpoint. She still has b/l LE weakness that is not improving as she is not moving and in bed most of the day. She needs to be up more, but her vitals wont tolerate it at this time. PHYSICAL EXAMINATION: Vitals: Stable General: Awake, alert, appropriate for age, in no acute distress. HEENT: No changes Extremities: Skin warm and dry without no acute lesions, coloration, temperature, skin intact, no tenderness or erythema. Integument: Surgical incisions: Clean at this time. Warren Cath present and patent FMS present and patent Palpation: Special findings: pain with palpation of the right breast area with large he matoma noted as well as anterior chest wall. VASCULAR STATUS : Wrist Pulses: [2/4 bilateral radial and ulnar] Pedal Pulses: [2/4 bilateral DP and PT] Color: [Normal] Edema: Improved in arms and hands. NEUROLOGIC EXAMINATION: Mental Status: Awake and alert, oriented,but slow with normal attention, concentration and memory, and fluent, he has slow speech Cranial Nerves: I: Olfactory not tested. II: Visual acuity normal, no visual field deficit noted with confrontation. III,IV: Normal pupillary reflexes & intact extraocular movements without nystagmus. V,: Intact symmetrical facial sensation. VII: Intact symmetrical facial motor movement VIII: Hearing intact. IX,X: Intact gag, swallow, & normal voice. XI: Sternocleidomastoid, trapezius function intact. XII: Tongue midline with normal movements. Special Tests: L'hermitte's Sign: Absent Straight Leg Raising: Absent Bilateral Motor Exam (0-5/5, N/T) STRENGTH 4+ out of 5 strength in upper extremity's bilaterally all major muscle groups without focal deficits generalized weakness 3-4 / 5 strength bilateral lower extremities all major muscle groups with generalized weakness no focal deficits. She is weak in her hip flexors curren tly still with 2-3/5 strength. She can fire her quads b/l but they are very weak. REFLEXES Upper Extremity: RIGHT [2]/4 LEFT [2]/4 Lower Extremity: RIGHT [2]/4 LEFT [2]/4 Pathological Reflexes Warren's: RIGHT [Absent] LEFT [Absent] Babinski: RIGHT [Absent] LEFT [Absent] Clonus: RIGHT [None] LEFT [None] SENSORY Intact Gait and Functional Evaluation: Lay Flat, Bedrest - Labs CBC & Chem 7: 04/10/22 05:00 04/10/22 05:00 Labs: Abnormal Lab Results - Last 24 Hours (Table) 04/06/22 04/09/22 04/09/22 Range/Units 09:28 08:30 08:30 WBC 13.7 H (3.8-10.6) k/uL RBC 1.31 L (3.80-5.40) m/uL Hgb 4.2 L* D (11.4-16.0) gm/dL Hct 12.3 L* (34.0-46.0) % RDW 25.6 H (11.5-15.5) % Plt Count 73 L (150-450) k/uL Neutrophils # (Manual) 11.50 H (1.3-7.7) k/uL Lymphocytes # (Manual) (1.0-4.8) k/uL Metamyelocytes # (Man) (0) k/uL Myelocytes # (Manual) 0.14 H (0) k/uL Nucleated RBCs 13 H (0-0) /100 WBC PT 14.2 H (9.0-12.0) sec INR 1.4 H (<1.2) Sodium (137-145) mmol/L BUN (7-17) mg/dL Creatinine (0.52-1.04) mg/dL Glucose (74-99) mg/dL POC Glucose (mg/dL) (70-110) mg/dL Calcium (8.4-10.2) mg/dL Crossmatch See Detail 04/09/22 04/09/22 04/09/22 Range/Units 08:40 11:38 16:03 WBC 14.5 H (3.8-10.6) k/uL RBC 3.10 L (3.80-5.40) m/uL Hgb 10.0 L D (11.4-16.0) gm/dL Hct 28.0 L (34.0-46.0) % RDW 18.7 H (11.5-15.5) % Plt Count 26 L D (150-450) k/uL Neutrophils # (Manual) 13.70 H (1.3-7.7) k/uL Lymphocytes # (Manual) 0.44 L (1.0-4.8) k/uL Metamyelocytes # (Man) 0.15 H (0) k/uL Myelocytes # (Manual) (0) k/uL Nucleated RBCs 21 H (0-0) /100 WBC PT (9.0-12.0) sec INR (<1.2) Sodium (137-145) mmol/L BUN (7-17) mg/dL Creatinine (0.52-1.04) mg/dL Glucose (74-99) mg/dL POC Glucose (mg/dL) 134 H (70-110) mg/dL Calcium (8.4-10.2) mg/dL Crossmatch See Detail 04/09/22 04/09/22 04/10/22 Range/Units 16:35 21:58 05:00 WBC (3.8-10.6) k/uL RBC (3.80-5.40) m/uL Hgb (11.4-16.0) gm/dL Hct (34.0-46.0) % RDW (11.5-15.5) % Plt Count (150-450) k/uL Neutrophils # (Manual) (1.3-7.7) k/uL Lymphocytes # (Manual) (1.0-4.8) k/uL Metamyelocytes # (Man) (0) k/uL Myelocytes # (Manual) (0) k/uL Nucleated RBCs (0-0) /100 WBC PT (9.0-12.0) sec INR (<1.2) Sodium 134 L (137-145) mmol/L BUN 33 H (7-17) mg/dL Creatinine 0.44 L (0.52-1.04) mg/dL Glucose 120 H (74-99) mg/dL POC Glucose (mg/dL) 153 H 139 H (70-110) mg/dL Calcium 7.1 L (8.4-10.2) mg/dL Crossmatch 04/10/22 04/10/22 Range/Units 05:00 06:27 WBC 13.5 H (3.8-10.6) k/uL RBC 2.89 L (3.80-5.40) m/uL Hgb 9.2 L (11.4-16.0) gm/dL Hct 25.8 L (34.0-46.0) % RDW 20.1 H (11.5-15.5) % Plt Count 41 L D (150-450) k/uL Neutrophils # (Manual) 10.80 H (1.3-7.7) k/uL Lymphocytes # (Manual) (1.0-4.8) k/uL Metamyelocytes # (Man) 0.14 H (0) k/uL Myelocytes # (Manual) (0) k/uL Nucleated RBCs 10 H (0-0) /100 WBC PT (9.0-12.0) sec INR (<1.2) Sodium (137-145) mmol/L BUN (7-17) mg/dL Creatinine (0.52-1.04) mg/dL Glucose (74-99) mg/dL POC Glucose (mg/dL) 145 H (70-110) mg/dL Calcium (8.4-10.2) mg/dL Crossmatch Microbiology - Last 24 Hours (Table) 04/04/22 11:04 Blood Culture - Preliminary Blood No Growth after 120 hours 04/06/22 23:53 Urine Culture - Final Urine,Catheterized Patsy albicans Assessment and Plan Assessment: 1. 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 Status post 7 units PRBC and 1 pack platelets -bilateral lower extremity weakness, status post multiple controlled falls in- house -Enterobacter sepsis, UTI -status post cardiac arrest Plan: -Appreciate cardiology clinical consultant and team management PCC and medicine -Appreciate cardiothoracic, Gen. surgery, nephrology, ID evaluations -Continue Activity: UP IN CHAIR. Turn q2 when in bed. -PT / OT DAILY work on increased strength in LE quads, hammys, etc for standing -OK for showers with max assistance -Daily proning 5-10 min work up to 10 -Cont Abx for duration of stay -Caffiene daily 200 mg daily -Add Fioracet if able daily for LOZANO -Pain control: Adequate today (Cont with percocet. NO more oxy IR, or dilaudid at this time. Watch pressures and VS due to her bleed. -Meplex pads on sacral region with barrier cream. Cont turn. Sit at different angles. -Meds: reviewed -Trend labs, trend SED and CRP for markers -Transfusions to vitals -GI ppx: senna, Miralax -Continue Warren changed per protocol -Cont with FBS -DVT PPX: Mechanical only -Hygiene: Maintain dressing clean and dry. Meticulous cleaning after BMs away from incision site patient has had several instances on the floor where she was covered and bowel movement as well as urine up to her shoulders on her back. The wound needs to be kept meticulously clean. -Encourage IS 10x/hr -General surgery is requesting transfer for GI coverage due to her ongoing GI bleed.
[2022-04-10] MEDS: INSULIN ASPART (NovoLOG) 100 UNIT/ML VIAL SQ SCH ×4 (08:11→20:15)
[2022-04-10] MEDS: AMIODARONE 450 MG in DEXTROSE 5% IN WATER 250 ML IV SCH ×2 (08:11)
[2022-04-10] MEDS: LACTULOSE 20 GM/30 ML CUP PO SCH ×2 (08:31→20:26)
[2022-04-10] MEDS: METOPROLOL TARTRATE 50 MG TAB PO SCH ×3 (08:32→21:36)
[2022-04-10] MEDS: MAGNESIUM OXIDE 400 MG TAB PO SCH (08:32)
[2022-04-10] MEDS: DULoxetine HCL 60 MG CAPSULE.DR PO SCH (08:32)
[2022-04-10] MEDS: ATORVASTATIN 20 MG TAB PO SCH (08:32)
[2022-04-10] MEDS: AMIODARONE 200 MG TAB PO SCH (08:32)
[2022-04-10] MEDS: SODIUM BICARBONATE TAB 650 MG TAB PO SCH ×2 (08:32→20:26)
[2022-04-10] MEDS: PANTOPRAZOLE 40 MG/10 ML VIAL IVP SCH ×2 (08:32→20:26)
[2022-04-10] MEDS: GABAPENTIN 400 MG CAP PO SCH ×3 (08:34→21:36)
[2022-04-10] MEDS: ANIDULAFUNGIN 100 MG in SODIUM CHLORIDE 0.9% 100 ML IVPB SCH (08:43)
[2022-04-10] MEDS: MAG HYDROX/AL HYDROX/SIMETH 30 ML, diphenhydrAMINE ELIXIR 75 MG, LIDOCAINE VISCOUS 2% 3... PO SCH ×9 (10:42→21:36)
[2022-04-10] MEDS: DIGOXIN 62.5 MCG TAB PO SCH (10:45)
[2022-04-10 11:23] LABS: Glucose,Whole Blood 153 mg/dL (70-110)
--- NOTE | 2022-04-10 11:24 | P.PN ---
Subjective Progress Note Date: 04/10/22 Principal diagnosis: cardiac arrest Hospital Course: Patient is a 71 yo CF with a hx of A fib s/p ablation, GERD, hypertension, dyslipidemia, and right diaphragmatic paralysis who presented for T10 to Pelvis decompression and fusion with revision. Course complicated by significant blood loss. Patient was on vasopressors, also received TXA gtt. She received 7 L of lactated Ringer's. She received 1 amp of sodium bicarb intaop. She also received albumin. Patient then had a cardiac arrest. During the case she developed A. fib with RVR and then quickly transitioned into bradycardia with a low end-tidal CO2. She received 0.4 of atropine and CPR was started. She received epinephrine 0.5. She achieved ROSC. Total down time was less than 5 minutes. She was extubated on 02/25. She continued to do well but struggled with pain. She was downgraded from ICU on 03/03. On 03/06/22 patient was noted to have a significant drop in hemoglobin from 10.0 down to 7.5 and upon reevaluation on 03/07 was found to have hemoglobin of 5.4, patient required multiple transfu sions. She has received a total of 7 units PRBCs and 1 unit of platelets. She underwent a CT abdomen and pelvis and was found to have a large right chest hematoma dilated small bowel concerning for ileus. Patient was evaluated by cardiothoracic surgery and they recommended conservative management. On 03/07, patient was noted to be hypotensive with elevated WBC count of 42.3, with worsening renal function and hyperkalamia. Patient was treated with NS bolus, IV insulin/D50, Albuterol and sodium bicarbonate. She was transferred back to the ICU for septic shock requiring Levophed. Patient was started on Vancomycin and Cefepime. Blood and urine cultures were obtained and positive for Enterobacter. Infectious disease was consulted and patient was continued on Cefepime for treatment of Enterobacter UTI with secondary bacteremia and Vancomycin was discontinued. Patient was later weaned off of vasopressors and again transferred out of the ICU. Patient was started on Lasix for treatment of acute on chronic systolic heart failure with EF of 35-40%. Patient continued on Protonix for GI prophylaxis, amiodarone and metoprolol for atrial fibrillation with RVR sodium bicarb for treatment of metabolic acidosis. Pt's Xarelto remains hold at this time. Patient was evaluated by PMR and is currently not a candidate for inpatient rehab. She has been cleared by orthopedic surgery to start working with physical therapy. On 03/26/22 patient was again found to have elevating leukocytosis and repeat Wound cultures were obtained. Wound cultures were positive for pseudomonas aeruginosa, enterococcus fasciculus, and Patsy albicans. Patient to continue with Zosyn per culture and sensitivity report and as recommended by infectious disease as this may be contamination/colonization however patient is a high risk of infection so we will continue with empiric antibiotic therapy. Overnight on 03/28/22 patient again developed episodes of melena and at that time Dr. Arce, general surgeon was re-consulted. CT abdomen and pelvis revealing bilateral hydronephrosis unable to rule out obstructive etiology, concerns for fecal impaction, and persistent previously known right anterior chest wall hematoma. General surgery following and reevaluated patient secondary to concerns of fecal impaction and started patient on lactulose. Warren catheter was inserted secondary to bilateral hydronephrosis and patient was evaluated by urologist recommending continuation of Warren catheter as bilateral hydronephrosis is believed to be resulting secondary to urinary retention. On the evening of 04/03/21 patient with continued atrial tachycardia and hypotension and unable to take metoprolol secondary to low blood pressures. Patient had episode of hematochezia along with large blood clot and was philippe sferred back to the ICU. Had bedside manual disimpaction with general surgery. Also has a posterior anal fissure could likely because of current bleeding. On a bowel regimen. Hemoglobin continues to down trend. Requiring further blood transfusions. Hemoglobin currently stable. Hemodynamically stable. Patient pending transfer for GI. Subjective: Patient seen and examined at bedside. Patient continues to have further bloody bowel movements. Urine output is stable. Patient nutrition status is poor. Pertinent positives and negatives as discussed above, a complete review of systems was performed and all other systems are negative. Vitals Signs Reviewed. General: ill appearing, no acute distress, appears at stated age, Derm: warm, dry. Postsurgical dressing clean, dry, and intact this morning. Head: atraumatic, normocephalic, symmetric Eyes: EOMI, no lid lag, anicteric sclera Mouth: no lip lesion, dry membranes moist Cardiovascular: S1S2 irregular, tachycardic, no murmur Lungs: Respirations even, regular, and unlabored on room air. Lungs clear to auscultation bilaterally , 2 L Ext: no gross muscle atrophy, 2+ pitting edema, no contractures Abd: Warren catheter in place. Obese. Non tender to palpation. Neuro: Moving all 4 extremities independently, sensation and movement equal and intact in bilateral upper and lower extremities. Patient continues with equal Bilateral lower extremity weakness unable to lift legs off the bed independently. Psych:: Patient with depressed affect, she is pleasant and cooperative. Assessment and Plan: GI bleeding, likely lower Acute abdominal pain - resolved Fecal impaction, status post manual disimpaction Posterior Anal fissure -CT abdomen and pelvis concerning for possible fecal impaction. -Gen. surgery was consulted for reevaluation -Continue with Protonix 40 mg IVP twice daily -Hemoglobin continues to down trend, but stable -Requiring more blood transfusions -On bowel regimen -Patient to be transferred for GI Atrial tachycardia/fibrillation with RVR Hypotension -not on pressors Status post Cardiac arrest with ROSC Acute on chronic systolic heart failure -Cardiology following -Continuous telemetry monitoring. -Oral amiodarone, started on digoxin -Oral metoprolol tartrate -Diuretics held -also on Midodrine -Holding anticoagulation due to ongoing GI bleed Poor nutritional intake Severe protein calorie malnutrition Anasarca - Patient started on mirtazapine -Patient now agreeable to tube feeding Hypokalemia -Replete and monitor Septic shock - resolved Enterobacter cloacae UTI with secondary bacteremia - resolved Lactic acidosis Leukocytosisresolving Patsy UTI -Infectious disease following and managing antibiotic course at this time. Patient remains on Zosyn -ID started Eraxis Bilateral hydronephrosis, likely secondary to urinary retention -CT abdomen and pelvis revealing bilateral hydronephrosis unable to rule out obstructive etiology. -Renal function stable -Urology following, recommending continuation of Warren catheter Prerenal azotemia, improving Hyponatremiaresolving Hyperkalemiaresolved Hypokalemiaresolved Metabolic acidosis, resolved -Continue sodium bicarb 650 mg twice a day -Nephrology following. Prediabetes with hyperglycemia, now hypoglycemia -Likely steroid induced -A1c is 6 -Continue with sliding scale Right breast hematoma - stable T10 to pelvis decompression with fusion Post-op pain -Management per primary admitting Orthopedic surgery team including DVT prophyl axis, pain management, wound/dressing care, weightbearing, and PT/OT . -PT/OT following. Right diaphragmatic paralysis -No interventions for her pulmonology Hyperlipidemia -atorvastatin. History of hypertension -Currently On Midodrine for episodes of hypotension Transaminitis -Likely ischemic hepatitis. -Resolved Thank you for allowing us to participate in the care of this pleasant patient. Do not hesitate to contact us with questions. Someone can be reached from the [facility] hospitalist group all hours of the day at [phone] or via perfect serve. Objective - Vital Signs Vital signs: Vital Signs Temp 97.6 F 04/10/22 08:00 Pulse 103 H 04/10/22 10:00 Resp 13 04/10/22 10:00 BP 117/70 04/10/22 10:00 Pulse Ox 95 04/10/22 10:00 FiO2 2 04/04/22 05:29 Intake & Output 04/09/22 04/10/22 04/10/22 18:59 06:59 18:59 Intake Total 2663 700 900 Output Total 517 773 196 Balance 2146 -73 704 Weight 127.777 kg Intake: IV 350 700 450 Piperacillin-Tazobactam 3 100 200 .375 gm In Sodium Chloride 0.9% 100 ml @ 25 mls/hr IVPB Q8HR [facility] Rx# :[id number] Sodium Chloride 0.9% 1, 150 000 ml @ 10 mls/hr IV . Q24H [facility] Rx#:[id number] Sodium Chloride 0.9% 1, 200 600 250 000 ml @ 50 mls/hr IV . Q20H [facility] Rx#:[id number] Intake, IV Titration 100 450 Amount Amiodarone 450 mg In 250 Dextrose 5% in Water 250 ml @ 0.5 MG/MIN 16.667 mls/hr IV .Q15H [facility]UL Rx#: [id number] Anidulafungin 100 mg In 100 Sodium Chloride 0.9% 100 ml @ 84 mls/hr IVPB DAILY [facility] Rx#:[id number] Potassium Chloride 20 meq 100 In Water For Injection 1 100ml.bag @ 50 mls/hr IVPB Q2H [facility] Rx#: [id number] Potassium Chloride 20 meq 100 In Water For Injection 1 100ml.bag @ 50 mls/hr IVPB Q2H [facility] Rx#: [id number] Blood Product 2213 Platelet Pheresis Pas 353 Psoralen Unit [id number] Rc As-1 Unit 310 [id number] Rc As-1 Unit 310 [id number] Rc As-1 Unit 310 [id number] Output: Urine 515 770 195 Stool 2 3 1 Other: Voiding Method Indwelling Catheter Indwelling Catheter Indwelling Catheter # Bowel Movements 1 1 ABP, PAP, CO, CI - Last Documented Arterial Blood Pressure 158/70 - Labs CBC & Chem 7: 04/10/22 05:00 04/10/22 05:00 Labs: Abnormal Lab Results - Last 24 Hours (Table) 04/09/22 04/09/22 04/09/22 Range/Units 08:30 08:40 11:38 WBC 13.7 H (3.8-10.6) k/uL RBC (3.80-5.40) m/uL Hgb (11.4-16.0) gm/dL Hct (34.0-46.0) % RDW (11.5-15.5) % Plt Count (150-450) k/uL Neutrophils # (Manual) 11.50 H (1.3-7.7) k/uL Lymphocytes # (Manual) (1.0-4.8) k/uL Metamyelocytes # (Man) (0) k/uL Myelocytes # (Manual) 0.14 H (0) k/uL Nucleated RBCs 13 H (0-0) /100 WBC Sodium (137-145) mmol/L BUN (7-17) mg/dL Creatinine (0.52-1.04) mg/dL Glucose (74-99) mg/dL POC Glucose (mg/dL) 134 H (70-110) mg/dL Calcium (8.4-10.2) mg/dL Crossmatch See Detail 04/09/22 04/09/22 04/09/22 Range/Units 16:03 16:35 21:58 WBC 14.5 H (3.8-10.6) k/uL RBC 3.10 L (3.80-5.40) m/uL Hgb 10.0 L D (11.4-16.0) gm/dL Hct 28.0 L (34.0-46.0) % RDW 18.7 H (11.5-15.5) % Plt Count 26 L D (150-450) k/uL Neutrophils # (Manual) 13.70 H (1.3-7.7) k/uL Lymphocytes # (Manual) 0.44 L (1.0-4.8) k/uL Metamyelocytes # (Man) 0.15 H (0) k/uL Myelocytes # (Manual) (0) k/uL Nucleated RBCs 21 H (0-0) /100 WBC Sodium (137-145) mmol/L BUN (7-17) mg/dL Creatinine (0.52-1.04) mg/dL Glucose (74-99) mg/dL POC Glucose (mg/dL) 153 H 139 H (70-110) mg/dL Calcium (8.4-10.2) mg/dL Crossmatch 04/10/22 04/10/22 04/10/22 Range/Units 05:00 05:00 06:27 WBC 13.5 H (3.8-10.6) k/uL RBC 2.89 L (3.80-5.40) m/uL Hgb 9.2 L (11.4-16.0) gm/dL Hct 25.8 L (34.0-46.0) % RDW 20.1 H (11.5-15.5) % Plt Count 41 L D (150-450) k/uL Neutrophils # (Manual) 10.80 H (1.3-7.7) k/uL Lymphocytes # (Manual) (1.0-4.8) k/uL Metamyelocytes # (Man) 0.14 H (0) k/uL Myelocytes # (Manual) (0) k/uL Nucleated RBCs 10 H (0-0) /100 WBC Sodium 134 L (137-145) mmol/L BUN 33 H (7-17) mg/dL Creatinine 0.44 L (0.52-1.04) mg/dL Glucose 120 H (74-99) mg/dL POC Glucose (mg/dL) 145 H (70-110) mg/dL Calcium 7.1 L (8.4-10.2) mg/dL Crossmatch Microbiology - Last 24 Hours (Table) 04/04/22 11:04 Blood Culture - Preliminary Blood No Growth after 120 hours 04/06/22 23:53 Urine Culture - Final Urine,Catheterized Patsy albicans
--- NOTE | 2022-04-10 12:44 | PN ---
PROGRESS NOTE SUBJECTIVE: Gabrielle is a 71-year-old lady, who is in the ICU and has had episodes of atrial fibrillation, for which Cardiology is following her. This morning, she is in atrial fibrillation. OBJECTIVE: VITAL SIGNS: Heart rate is 103 beats per minute, blood pressure is 117/70, respiratory rate is 18. CHEST: Reveals diminished air entry at the bases. HEART: Reveals first and second heart sounds, irregular rhythm, and a systolic murmur at the left lower sternal border. ABDOMEN: Soft. EXTREMITIES: Did not reveal any edema. Peripheral pulses are diminished. MEDICATIONS: The patient is currently on, 1. Amiodarone. 2. Lopressor. 3. I am adding digoxin for better rate control. ASSESSMENT: Atrial fibrillation with poorly controlled ventricular rate. PLAN: I am adding digoxin. MMTIM / ELIZABETHN: [id number] /
--- NOTE | 2022-04-10 13:23 | P.PN ---
Subjective Progress Note Date: 04/10/22 Principal diagnosis: status post lumbar decompression/fusion Is evaluation of 02/25/2022, the patient is being seen for a follow-up in the intensive care unit. The patient is post laminectomy and fusion/decompression of the spine and this was done on multiple levels. The patient overnight was kept on a mechanical ventilator. This morning, the patient is on propofol which is running at 35 mcg/kg/m. The patient is well sedated and the patient is quite sick sinus with a mechanical ventilator. The patient is requiring no pressors. The patient on normal saline in the at the rate of 50 mL an hour. The patient is on a mechanical ventilator on assist control mode at the rate of 18, tidal volume of 450, FiO2 of 40% with a PEEP of 5. The blood gas from today showed a pH of 7.41 with a pCO2 of 35 and pO2 of 138. Chest x-ray shows smaller lung volumes, some mild elevation of the right hemidiaphragm. ET tube is sitting just at the level of the aortic knob. No evidence of any pneumothorax. No airspace disease or consolidations. The patient also had a CT angiogram that showed no evidence of any pulmonary embolism. That showed atelectatic change in lung bases and various up other lung segments. No effusion. No lung collapse. CAT scan of the lumbosacral spine was also completed. The surgical one-sided dry clean and intact. The Hemovac output is bloody and its minimal at this point in time. The patient is afebrile. The patient is in atrial fibrillation. Rate is controlled. The patient is receiving Dilaudid for pain control.Blood work from today shows a white cell count of 14.7 with a hemoglobin of 10.1 and a platelet count of 232. The patient also has a sodium level of 135, potassium level of 4.4, chloride is 106 with a bicarb of 23 and a BUN of 15 and a creatinine of 0.5. On 04/09/2022, the patient is in the intensive care area that she is having ongoing issues with GI bleeding. Hemoglobin has been fluctuating. I have discussed this issue with the general surgeon on multiple occasions. It was thought that the stool was brown based on the surgeon's evaluation. Nevertheless, this morning, hemoglobin drop down to 4.9 and I witnessed a large quantity of maroon stool and the patient's bed in the morning evaluation. Furthermore, the blood work from today showed a hemoglobin of 4.9 and the patient is obviously having ongoing issues with GI bleeding. She remains on IV Protonix. GI surgeries on the case and he'll remains aware of those changes. Her cardiac rhythm is irregular consistent with age of fibrillation/flutter. No hematemesis. No abdominal pain. Hemodynamically stable despite a significant drop in hemoglobin down to 4.9. The rest of the blood work shows a sodium level of 131, potassium level is at 3.3, BUN is 35 with a creatinine of 0.54. The patient remains on the same antibiotic coverage. The patient remains on a combination of Zosyn and Eraxis. The patient otherwise is still critical and intensive care unit and the activation for now remains episodes of atrial fibrillation fluctuating hemoglobin. Note that the patient also had an issue with itchy fibrillation with rapid ventricular response yesterday. Based on that, the patient was loaded with amiodarone and the patient continues to be on amiodarone at a dose of 0.5 mg/m. Heart rate under better control for now. Reevaluated today on 04/10/2022, patient remains in the ICU, being followed by surgery for her GI bleeding, received a total of 12 units of packed RBCs since admission, and 2 units of platelets. An hemoglobin today is 9.2. Apparently the patient continues to have intermittent episodes of maroon colored stools, and surgery on the case is recommending transfer to a tertiary care institution is there is no GI coverage. Patient is on 4 L nasal cannula, does not seem to be in any distress, however she seems to be generally weak. Her initial back surgery was 02/24, another back surgery was done on 03/09, and EGD was done on 03/09 patient is on amiodarone at 0.5 mg/m, seems to have regular rhythm, she may be in atrial flutter. She is on normal saline at 50 mL per hour. Again plans are in progress to consider transferring the patient to another institution. WBC count today is 13.5 hemoglobin is 9.2. Lites are normal, renal profile is normal Objective - Vital Signs Vital signs: Vital Signs Temp 97.6 F 04/10/22 08:00 Pulse 103 H 04/10/22 10:00 Resp 13 04/10/22 10:00 BP 117/70 04/10/22 10:00 Pulse Ox 95 04/10/22 10:00 FiO2 2 04/04/22 05:29 Intake & Output 04/09/22 04/10/22 04/10/22 18:59 06:59 18:59 Intake Total 2663 700 950 Output Total 517 773 247 Balance 2146 -73 703 Weight 127.777 kg 127.777 kg Intake: IV 350 700 500 Piperacillin-Tazobactam 3 100 200 .375 gm In Sodium Chloride 0.9% 100 ml @ 25 mls/hr IVPB Q8HR [facility] Rx# :[id number] Sodium Chloride 0.9% 1, 150 000 ml @ 10 mls/hr IV . Q24H [facility] Rx#:[id number] Sodium Chloride 0.9% 1, 200 600 300 000 ml @ 50 mls/hr IV . Q20H [facility] Rx#:[id number] Intake, IV Titration 100 450 Amount Amiodarone 450 mg In 250 Dextrose 5% in Water 250 ml @ 0.5 MG/MIN 16.667 mls/hr IV .Q15H [facility]UL Rx#: [id number] Anidulafungin 100 mg In 100 Sodium Chloride 0.9% 100 ml @ 84 mls/hr IVPB DAILY [facility] Rx#:[id number] Potassium Chloride 20 meq 100 In Water For Injection 1 100ml.bag @ 50 mls/hr IVPB Q2H [facility] Rx#: [id number] Potassium Chloride 20 meq 100 In Water For Injection 1 100ml.bag @ 50 mls/hr IVPB Q2H [facility] Rx#: [id number] Blood Product 2213 Platelet Pheresis Pas 353 Psoralen Unit [id number] Rc As-1 Unit 310 [id number] Rc As-1 Unit 310 [id number] Rc As-1 Unit 310 [id number] Output: Urine 515 770 245 Stool 2 3 2 Other: Voiding Method Indwelling Catheter Indwelling Catheter Indwelling Catheter # Bowel Movements 1 1 ABP, PAP, CO, CI - Last Documented Arterial Blood Pressure 158/70 - Exam Physical Exam: Revealed a 71-year-old female in no distress. 4 L nasal cannula Head: Atraumatic, normocephalic. HEENT:[Neck is supple.] [No neck masses.] [No thyromegaly.] [No JVD.] Triple- lumen catheter noted in the right IJ. Chest: [Clear throughout, no crackles, no rhonchi, no wheezes.] Cardiac Exam: Regular rhythm, normal S1 and S2, no S3 gallop, no murmur.] Abdomen: [Soft, nontender, no megaly, no rebound, no guarding, normal bowel sounds.] Extremities: [No clubbing, no edema, no cyanosis.] Neurological Exam: [No focal neurologic deficit.]alert oriented 3, no gross focal deficits. Psychiatric: Normal mood affect and normal mental status examination. Skin: No rashes. - Labs CBC & Chem 7: 04/10/22 05:00 04/10/22 05:00 Labs: Abnormal Lab Results - Last 24 Hours (Table) 04/09/22 04/09/22 04/09/22 Range/Units 08:40 16:03 16:35 WBC 14.5 H (3.8-10.6) k/uL RBC 3.10 L (3.80-5.40) m/uL Hgb 10.0 L D (11.4-16.0) gm/dL Hct 28.0 L (34.0-46.0) % RDW 18.7 H (11.5-15.5) % Plt Count 26 L D (150-450) k/uL Neutrophils # (Manual) 13.70 H (1.3-7.7) k/uL Lymphocytes # (Manual) 0.44 L (1.0-4.8) k/uL Metamyelocytes # (Man) 0.15 H (0) k/uL Nucleated RBCs 21 H (0-0) /100 WBC Sodium (137-145) mmol/L BUN (7-17) mg/dL Creatinine (0.52-1.04) mg/dL Glucose (74-99) mg/dL POC Glucose (mg/dL) 153 H (70-110) mg/dL Calcium (8.4-10.2) mg/dL Crossmatch See Detail 04/09/22 04/10/22 04/10/22 Range/Units 21:58 05:00 05:00 WBC 13.5 H (3.8-10.6) k/uL RBC 2.89 L (3.80-5.40) m/uL Hgb 9.2 L (11.4-16.0) gm/dL Hct 25.8 L (34.0-46.0) % RDW 20.1 H (11.5-15.5) % Plt Count 41 L D (150-450) k/uL Neutrophils # (Manual) 10.80 H (1.3-7.7) k/uL Lymphocytes # (Manual) (1.0-4.8) k/uL Metamyelocytes # (Man) 0.14 H (0) k/uL Nucleated RBCs 10 H (0-0) /100 WBC Sodium 134 L (137-145) mmol/L BUN 33 H (7-17) mg/dL Creatinine 0.44 L (0.52-1.04) mg/dL Glucose 120 H (74-99) mg/dL POC Glucose (mg/dL) 139 H (70-110) mg/dL Calcium 7.1 L (8.4-10.2) mg/dL Crossmatch 04/10/22 04/10/22 Range/Units 06:27 11:21 WBC (3.8-10.6) k/uL RBC (3.80-5.40) m/uL Hgb (11.4-16.0) gm/dL Hct (34.0-46.0) % RDW (11.5-15.5) % Plt Count (150-450) k/uL Neutrophils # (Manual) (1.3-7.7) k/uL Lymphocytes # (Manual) (1.0-4.8) k/uL Metamyelocytes # (Man) (0) k/uL Nucleated RBCs (0-0) /100 WBC Sodium (137-145) mmol/L BUN (7-17) mg/dL Creatinine (0.52-1.04) mg/dL Glucose (74-99) mg/dL POC Glucose (mg/dL) 145 H 153 H (70-110) mg/dL Calcium (8.4-10.2) mg/dL Crossmatch Microbiology - Last 24 Hours (Table) 04/04/22 11:04 Blood Culture - Preliminary Blood No Growth after 120 hours 04/06/22 23:53 Urine Culture - Final Urine,Catheterized Patsy albicans Assessment and Plan Assessment: Impression: Recurrent GI bleeding, being considered for transfer. Acute Enterobacter urinary tract infection and sepsis with bacteremia secondary to Enterobacter. Remains on antibiotics. Atrial fibrillation/flutter Leukocytosis. Lumbar decompression/fusion February 05 and on 03/09/22, patient underwent exploration and washout with dural repairs secondary to falls Brief cardiac arrest/Pea in the operating room during her initial surgery. Suspect a right hemidiaphragm paralysis History of breast cancer and previous lumpectomy Benign essential hypertension Type 2 diabetes LV dysfunction with ejection fraction of 35-40% Recommendation: Continue patient to be nothing by mouth Continue to monitor and transfuse for low hemoglobin accordingly. Continue amiodarone as per cardiology on the case. Continue PPIs. Continue antibiotics. Agree with transfer to tertiary care center once a bed is available. We'll continue to follow Time with Patient: Less than 30
--- NOTE | 2022-04-10 15:31 | MR ---
EXAMINATION TYPE: MR brain wo/w con DATE OF EXAM: 04/10/2022 COMPARISON: CT brain March 20, [address] January 18, 2021 HISTORY: Intracranial hypotension. TECHNIQUE: Multiplanar, multisequence images of the brain and brainstem is performed without and with IV contras t, utilizing 13 mL intravenous Gadavist . FINDINGS: Diffusion weighted images demonstrate no evidence of a recent infarct or other diffusion ab normality. There is mild ventricular and sulcal prominence. Some mild areas of T2 hyperintensity in the periventricular white matter are seen. T2 Star weighted images show no suspicious intraparenchyma l blood product Midline structures redemonstrate normal morphology. The craniocervical junction appears within aparna l limits. Post contrast images demonstrate no abnormal enhancement. The dural venous sinuses appear patent. The visualized sinuses are clear and the globes are intact. IMPRESSION: Mild diffuse age related cerebral atrophy and chronic small vessel ischemic change redemo nstrated. No significant change from prior CT studies.
--- NOTE | 2022-04-10 15:40 | P.PN ---
Subjective Progress Note Date: 04/10/22 CHIEF COMPLAINT: Spinal surgery HISTORY OF PRESENT ILLNESS: Surgical service following in regards to GI bleed. Patient remains in the ICU as a select care overflow. Patient has a mass in place with maroonish stools. Patient is sleeping comfortably. No abdominal pain reported. Computed tomography scan abdomen and pelvis shows no evidence of bowel obstruction. There is a large stool burden within the rectum. No evidence for bowel wall thickening. No definitive acute intraluminal process. Right chest wall hematoma/, remains present in similar to 03/07/2022. Afebrile. WBC is 13.5 Hgb 9.2 platelets 41 sodium is 134 potassium 3.5 creatinine 0.44 MRI of the brain mild diffuse age-related Dario atrophy and chronic small vessel ischemic change we demonstrated. Patient's oral intake is poor. Dietitian recommending tube feeds via NG tube. Patient did receive a total of 3 units of blood and 1 unit of platelets yesterday. Hemoglobin has been 4.2 and did go up to 10 and platelets 26 up to 41 PHYSICAL EXAM: VITAL SIGNS: Reviewed. GENERAL: Well-developed in no acute distress. HEENT: No sclera icterus. Extraocular movements grossly intact. Moist buccal mucosa. Head is atraumatic, normocephalic. ABDOMEN: Soft. Obese. Nondistended. Nontender NEUROLOGIC: Sleeping comfortably ASSESSMENT: 1. Acute GI bleed 2. Posterior anal fissure with bleeding 3. Fecal impaction and constipation 4. Lumbar decompression/fusion and then with washout and dural repair 5. Cardiac arrest 6. EGD on 03/19/2022 that showed mild gastritis and esophagitis no active bleeding PLAN: -Okay to start tube feedings via NG tube if not being transferred today -Transfer process is in progress to [facility] or [facility] -Continue to monitor hemoglobin -Continue monitoring for any signs or symptoms of bleeding -Continue PPI -Continue to hold anticoagulation -Continue IV fluids Physician Welding Estimator note has been reviewed by physician. Signing provider agrees with the documented findings, assessment, and plan of care. Objective - Vital Signs Vital signs: Vital Signs Temp 97.6 F 04/10/22 08:00 Pulse 103 H 04/10/22 10:00 Resp 13 04/10/22 10:00 BP 117/70 04/10/22 10:00 Pulse Ox 95 04/10/22 10:00 FiO2 2 04/04/22 05:29 Intake & Output 04/09/22 04/10/22 04/10/22 18:59 06:59 18:59 Intake Total 2663 700 950 Output Total 517 773 247 Balance 2146 -73 703 Weight 127.777 kg 127.777 kg Intake: IV 350 700 500 Piperacillin-Tazobactam 3 100 200 .375 gm In Sodium Chloride 0.9% 100 ml @ 25 mls/hr IVPB Q8HR [facility] Rx# :[id number] Sodium Chloride 0.9% 1, 150 000 ml @ 10 mls/hr IV . Q24H [facility] Rx#:[id number] Sodium Chloride 0.9% 1, 200 600 300 000 ml @ 50 mls/hr IV . Q20H [facility] Rx#:[id number] Intake, IV Titration 100 450 Amount Amiodarone 450 mg In 250 Dextrose 5% in Water 250 ml @ 0.5 MG/MIN 16.667 mls/hr IV .Q15H [facility] Rx#: [id number] Anidulafungin 100 mg In 100 Sodium Chloride 0.9% 100 ml @ 84 mls/hr IVPB DAILY [facility] Rx#:[id number] Potassium Chloride 20 meq 100 In Water For Injection 1 100ml.bag @ 50 mls/hr IVPB Q2H [facility] Rx#: [id number] Potassium Chloride 20 meq 100 In Water For Injection 1 100ml.bag @ 50 mls/hr IVPB Q2H [facility] Rx#: [id number] Blood Product 2213 Platelet Pheresis Pas 353 Psoralen Unit [id number] Rc As-1 Unit 310 [id number] Rc As-1 Unit 310 [id number] Rc As-1 Unit 310 [id number] Output: Urine 515 770 245 Stool 2 3 2 Other: Voiding Method Indwelling Catheter Indwelling Catheter Indwelling Catheter # Bowel Movements 1 1 ABP, PAP, CO, CI - Last Documented Arterial Blood Pressure 158/70 - Labs CBC & Chem 7: 04/10/22 05:00 04/10/22 05:00 Labs: Abnormal Lab Results - Last 24 Hours (Table) 04/09/22 04/09/22 04/09/22 Range/Units 08:40 16:03 16:35 WBC 14.5 H (3.8-10.6) k/uL RBC 3.10 L (3.80-5.40) m/uL Hgb 10.0 L D (11.4-16.0) gm/dL Hct 28.0 L (34.0-46.0) % RDW 18.7 H (11.5-15.5) % Plt Count 26 L D (150-450) k/uL Neutrophils # (Manual) 13.70 H (1.3-7.7) k/uL Lymphocytes # (Manual) 0.44 L (1.0-4.8) k/uL Metamyelocytes # (Man) 0.15 H (0) k/uL Nucleated RBCs 21 H (0-0) /100 WBC Sodium (137-145) mmol/L BUN (7-17) mg/dL Creatinine (0.52-1.04) mg/dL Glucose (74-99) mg/dL POC Glucose (mg/dL) 153 H (70-110) mg/dL Calcium (8.4-10.2) mg/dL Crossmatch See Detail 04/09/22 04/10/22 04/10/22 Range/Units 21:58 05:00 05:00 WBC 13.5 H (3.8-10.6) k/uL RBC 2.89 L (3.80-5.40) m/uL Hgb 9.2 L (11.4-16.0) gm/dL Hct 25.8 L (34.0-46.0) % RDW 20.1 H (11.5-15.5) % Plt Count 41 L D (150-450) k/uL Neutrophils # (Manual) 10.80 H (1.3-7.7) k/uL Lymphocytes # (Manual) (1.0-4.8) k/uL Metamyelocytes # (Man) 0.14 H (0) k/uL Nucleated RBCs 10 H (0-0) /100 WBC Sodium 134 L (137-145) mmol/L BUN 33 H (7-17) mg/dL Creatinine 0.44 L (0.52-1.04) mg/dL Glucose 120 H (74-99) mg/dL POC Glucose (mg/dL) 139 H (70-110) mg/dL Calcium 7.1 L (8.4-10.2) mg/dL Crossmatch 04/10/22 04/10/22 Range/Units 06:27 11:21 WBC (3.8-10.6) k/uL RBC (3.80-5.40) m/uL Hgb (11.4-16.0) gm/dL Hct (34.0-46.0) % RDW (11.5-15.5) % Plt Count (150-450) k/uL Neutrophils # (Manual) (1.3-7.7) k/uL Lymphocytes # (Manual) (1.0-4.8) k/uL Metamyelocytes # (Man) (0) k/uL Nucleated RBCs (0-0) /100 WBC Sodium (137-145) mmol/L BUN (7-17) mg/dL Creatinine (0.52-1.04) mg/dL Glucose (74-99) mg/dL POC Glucose (mg/dL) 145 H 153 H (70-110) mg/dL Calcium (8.4-10.2) mg/dL Crossmatch Microbiology - Last 24 Hours (Table) 04/04/22 11:04 Blood Culture - Preliminary Blood No Growth after 120 hours 04/06/22 23:53 Urine Culture - Final Urine,Catheterized Patsy albicans
[2022-04-10 16:37] LABS: Glucose,Whole Blood 130 mg/dL (70-110)
[2022-04-10] MEDS ORDERED: PHYTONADIONE 2 MG in SODIUM CHLORIDE 0.9% 50 ML IVPB STA (18:25)
[2022-04-10 19:19] LABS: Anisocytosis Moderate; HCT 24.6 % (34.0-46.0); HGB 8.4 gm/dL (11.4-16.0); MCH 31.5 pg (25.0-35.0); MCHC 34.3 g/dL (31.0-37.0); MCV 91.9 fL (80.0-100.0); Macrocytosis Slight; Mean Platelet Volume 11.2; Platelet Count 46 k/uL (150-450); Poikilocytosis Moderate; RBC 2.68 m/uL (3.80-5.40); RDW 22.1 % (11.5-15.5); WBC 13.4 k/uL (3.8-10.6)
--- NOTE | 2022-04-10 20:05 | P.CONS ---
History of Present Illness - Reason for Consult Consult date: 04/10/22 anemia Requesting physician: Rey Abernathy - Chief Complaint elective surgery - History of Present Illness Patient is pleasant 71-year-old female with history of atrial flutter, atrial fibrillation, hypertension, and hyperlipidemia admitted for elective back surgery on 02/24/22. She did have a complicated and long surgery, and experienced atrial flutter throughout the case and bradycardia with heart rates into the 20s and 30s. CODE BLUE was called and patient received brief round of CPR as well as atropine and epinephrine with improvement in heart rate. Pt has had extended hospitalization that has been complicated with UTI, surgical wound infection and anemia, receiving a total of 12 units of PRBCs. Hematology consulted for anemia. Patient denies history of anemia, taking iron supplements or having a transfusion before. There are reports of blood in her stool, a barium swallow study has been ordered by Surgery. Pt reports her last colonoscopy was over 10 years ago. WBC 13.5, ANC 10.8, Hgb stable 9.2, HCT 25.8, PLT 41 Pt denies a history of cancer but, found that she was seen by Dr. Cates in the past. Oncology history as follows: Pt presented with abnormal right breast screening mammogram in August 2018, she had additional imaging which revealed 1.1cm lesion in LIQ of right breast. 10/21/2018 core biopsy was positive for invasive carcinoma. 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 She had no prior use of hormone replacement therapy. Bone density in August 2018 revealed mild osteopenia. She was seen by Dr Tavarez/[facility] and was given the option of no radiation. Based on pathology , OncotypeDx is was recommended she would derive significant benefit from adjuvant endocrine therapy with aromatase inhibitors, especially if she was going to forgo radiation. OncotypeDx also reported no benefit from chemo. She was prescribed anastrazole in 2019, unsure if she ever took-will have to follow up with that question. She was not seen in office after that. Review of Systems 10 point ROS is neg except as stated in HPI Past Medical History Past Medical History: Atrial Fibrillation, Atrial Flutter, Cancer, Chest Pain / Angina, GERD/Reflux, Hyperlipidemia, Hypertension, Osteoarthritis (OA), Thyroid Disorder Additional Past Medical History / Comment(s): Rr breast cancer, hiatal hernia, c hronic low back pain. partially paralyzed rt diaphragm, infection rt breast after surgery History of Any Multi-Drug Resistant Organisms: None Reported Past Surgical History: Back Surgery, Bladder Surgery, Breast Surgery, Cardiac Ablation, Cholecystectomy, EPS, Heart Catheterization, Hernia Repair, Hysterectomy, Joint Replacement, Orthopedic Surgery Additional Past Surgical History / Comment(s): R breast core bx/needle loc, R breast lumpectomy/axillary node dissection, CHATO, cardioversion, low back surgeries x3 with plate/screws, total R knee x3, R foot multiple surgeries for spur/neuromas, L foot cystectomy, R elbow injury w/ surgery, R wrist ganglion cystectomy, partial thyroidectomy, 4 abdominal hernia repairs, bladder suspension, colonoscopy, loki cataract, laser loki eye surgery 01/31/22 Past Anesthesia/Blood Transfusion Reactions: Previous Problems w/ Anesthesia, Postoperative Nausea & Vomiting (PONV) Additional Past Anesthesia/Blood Transfusion Reaction / Comm: On ventilator for 2 days after cardiac ablation d/t diaphragm paralysis-rt side Past Psychological History: Depression Additional Psychological History / Comment(s): . Smoking Status: Never smoker Past Alcohol Use History: Rare Past Drug Use History: None Reported - Past Family History Father Family Medical History: Cancer Additional Family Medical History / Comment(s): . Mother Family Medical History: Cancer, Deep Vein Thrombosis (DVT) Additional Family Medical History / Comment(s): Skin and breast cancer. Medications and Allergies Home Medications Medication Instructions Recorded Confirmed Type Levothyroxine Sodium [Synthroid] 88 mcg PO QAM 02/19/14 02/20/22 History HYDROcodone/APAP 10-325MG [Holden 1 tab PO Q4H PRN 12/23/18 02/20/22 History 10-325] Atorvastatin [Lipitor] 10 mg PO DAILY #30 tab 04/10/19 02/20/22 Rx atenoloL [Tenormin] 100 mg PO QAM 05/10/20 02/20/22 History Amlodipine Besylate/Valsartan 1 each PO QAM 02/02/22 02/20/22 History [Exforge 5-320 mg Tablet] DULoxetine HCL [Cymbalta] 60 mg PO DAILY 02/02/22 02/20/22 History Rivaroxaban [Xarelto] 20 mg PO HS 02/02/22 02/20/22 History Rosuvastatin Calcium 10 mg PO QAM 02/02/22 02/20/22 History Allergies Allergy/AdvReac Type Severity Reaction Status Date / Time cephalexin monohydrate Allergy Mild Rash/Hives Verified 02/24/22 05:56 [From Keflex] Iodinated Contrast Media Allergy Mild Rash/Hives Verified 02/24/22 05:56 [Iodinated Contrast Media - IV Dye] Sulfa (Sulfonamide Allergy Mild Rash/Hives Verified 02/24/22 05:56 Antibiotics) adhesive tape AdvReac Severe Rash/Hives Uncoded 02/24/22 05:56 Physical Exam Vitals: Vital Signs Temp Pulse Resp BP Pulse Ox 04/10/22 10:00 103 H 13 117/70 95 04/10/22 09:00 110 H 18 128/70 04/10/22 08:00 97.6 F 109 H 20 124/69 95 04/10/22 07:00 107 H 17 121/67 04/10/22 06:00 97.6 F 105 H 28 H 126/75 99 04/10/22 05:00 105 H 21 120/69 97 04/10/22 04:00 105 H 15 113/63 99 04/10/22 03:00 105 H 17 119/71 04/10/22 02:00 104 H 16 120/77 100 04/10/22 01:00 104 H 15 111/60 94 L 04/10/22 00:15 104 H 18 107/66 99 04/10/22 00:00 103 H 18 120/67 90 L 04/09/22 23:00 101 H 24 89/61 90 L 04/09/22 22:00 105 H 15 98/61 93 L 04/09/22 21:00 105 H 21 96/60 92 L 04/09/22 20:00 98 F 103 H 15 104/67 04/09/22 19:00 106 H 17 108/73 94 L 04/09/22 18:00 111 H 16 121/77 96 04/09/22 17:00 108 H 25 H 120/77 100 04/09/22 16:00 98.2 F 107 H 15 134/76 97 04/09/22 15:00 98.2 F 107 H 14 101/65 96 01/08/23 14:45 98.2 F 107 H 14 116/71 100 04/09/22 14:00 106 H 17 104/63 100 04/09/22 13:32 98.0 F 108 H 15 107/67 100 04/09/22 13:30 98.3 F 105 H 12 135/75 100 04/09/22 13:12 98.2 F 104 H 15 127/69 97 04/09/22 13:02 98.3 F 105 H 18 116/64 100 04/09/22 13:00 106 H 16 116/64 97 04/09/22 12:42 98.2 F 106 H 15 115/64 100 Intake and Output 04/09/22 04/10/22 04/10/22 22:59 06:59 14:59 Intake Total 400 500 900 Output Total 518 457 196 Balance -118 43 704 Intake: IV 400 500 450 Piperacillin-Tazobactam 3 100 200 .375 gm In Sodium Chloride 0.9% 100 ml @ 25 mls/hr IVPB Q8HR [facility] Rx# :[id number] Sodium Chloride 0.9% 1, 400 400 250 000 ml @ 50 mls/hr IV . Q20H [facility] Rx#:[id number] Intake, IV Titration 450 Amount Amiodarone 450 mg In 250 Dextrose 5% in Water 250 ml @ 0.5 MG/MIN 16.667 mls/hr IV .Q15H [facility] Rx#: [id number] Anidulafungin 100 mg In 100 Sodium Chloride 0.9% 100 ml @ 84 mls/hr IVPB DAILY [facility] Rx#:[id number] Potassium Chloride 20 meq 100 In Water For Injection 1 100ml.bag @ 50 mls/hr IVPB Q2H [facility] Rx#: [id number] Output: Urine 515 455 195 Stool 3 2 1 Other: Voiding Method Indwelling Catheter Indwelling Catheter Indwelling Catheter # Bowel Movements 1 1 Weight 127.777 kg 127.777 kg - Constitutional General appearance: cooperative, morbidly obese, no acute distress - EENT Eyes: anicteric sclerae, EOMI ENT: hearing grossly normal, normal oropharynx - Neck Neck: no lymphadenopathy - Respiratory Respiratory: bilateral: diminished (weak inspiratory effort) - Cardiovascular Heart sounds: normal: S1, S2 Abnormal Heart Sounds: no systolic murmur, no diastolic murmur, no rub, no S3 Gallop, no S4 Gallop, no click, no other leg Peripheral Edema: bilateral: Trace - Gastrointestinal General gastrointestinal: no absent bowel sounds, no decreased bowel sounds, no distended, no hepatomegaly, no hyperactive bowel sounds, normal bowel sounds, no organomegaly, no rigid, no scaphoid, soft, no splenomegaly, no tenderness, no umbilical hernia, no ventral hernia - Integumentary Integumentary: pale - Neurologic Neurologic: CNII-XII intact (grossly) - Musculoskeletal Musculoskeletal: generalized weakness - Psychiatric Psychiatric: A&O x's 3, appropriate affect, intact judgment & insight Results CBC & Chem 7: 04/10/22 18:47 04/10/22 05:00 Labs: Abnormal Lab Results - Last 24 Hours (Table) 04/09/22 04/09/22 04/09/22 Range/Units 08:40 16:03 16:35 WBC 14.5 H (3.8-10.6) k/uL RBC 3.10 L (3.80-5.40) m/uL Hgb 10.0 L D (11.4-16.0) gm/dL Hct 28.0 L (34.0-46.0) % RDW 18.7 H (11.5-15.5) % Plt Count 26 L D (150-450) k/uL Neutrophils # (Manual) 13.70 H (1.3-7.7) k/uL Lymphocytes # (Manual) 0.44 L (1.0-4.8) k/uL Metamyelocytes # (Man) 0.15 H (0) k/uL Nucleated RBCs 21 H (0-0) /100 WBC Sodium (137-145) mmol/L BUN (7-17) mg/dL Creatinine (0.52-1.04) mg/dL Glucose (74-99) mg/dL POC Glucose (mg/dL) 153 H (70-110) mg/dL Calcium (8.4-10.2) mg/dL Crossmatch See Detail 04/09/22 04/10/22 04/10/22 Range/Units 21:58 05:00 05:00 WBC 13.5 H (3.8-10.6) k/uL RBC 2.89 L (3.80-5.40) m/uL Hgb 9.2 L (11.4-16.0) gm/dL Hct 25.8 L (34.0-46.0) % RDW 20.1 H (11.5-15.5) % Plt Count 41 L D (150-450) k/uL Neutrophils # (Manual) 10.80 H (1.3-7.7) k/uL Lymphocytes # (Manual) (1.0-4.8) k/uL Metamyelocytes # (Man) 0.14 H (0) k/uL Nucleated RBCs 10 H (0-0) /100 WBC Sodium 134 L (137-145) mmol/L BUN 33 H (7-17) mg/dL Creatinine 0.44 L (0.52-1.04) mg/dL Glucose 120 H (74-99) mg/dL POC Glucose (mg/dL) 139 H (70-110) mg/dL Calcium 7.1 L (8.4-10.2) mg/dL Crossmatch 04/10/22 04/10/22 Range/Units 06:27 11:21 WBC (3.8-10.6) k/uL RBC (3.80-5.40) m/uL Hgb (11.4-16.0) gm/dL Hct (34.0-46.0) % RDW (11.5-15.5) % Plt Count (150-450) k/uL Neutrophils # (Manual) (1.3-7.7) k/uL Lymphocytes # (Manual) (1.0-4.8) k/uL Metamyelocytes # (Man) (0) k/uL Nucleated RBCs (0-0) /100 WBC Sodium (137-145) mmol/L BUN (7-17) mg/dL Creatinine (0.52-1.04) mg/dL Glucose (74-99) mg/dL POC Glucose (mg/dL) 145 H 153 H (70-110) mg/dL Calcium (8.4-10.2) mg/dL Crossmatch Microbiology - Last 24 Hours (Table) 04/04/22 11:04 Blood Culture - Preliminary Blood No Growth after 120 hours 04/06/22 23:53 Urine Culture - Final Urine,Catheterized Patsy albicans Chest x-ray: report reviewed CT scan - abdomen: report reviewed Venous US: report reviewed Assessment and Plan (1) Anemia Current Visit: Yes Status: Acute Priority: High Code(s): D64.9 - ANEMIA, UNSPECIFIED SNOMED Code(s): 504428076 (2) GI bleed Current Visit: Yes Status: Acute Priority: High Code(s): K92.2 - GASTROINTESTINAL HEMORRHAGE, UNSPECIFIED SNOMED Code(s): 01776544 Plan: Anemia: -On 04/09, received 3 units PRBCs and 1 unit platelets, due to hemoglobin 4.2, highly [place] plt 57[address]. Her Hgb would have been anticipated to increase to 7.2 with the 3 units, it is 9[place]2 [place] [address]. Hold anticoagulation for Plt <50,000. Use SCDs for DVT prophylaxis. Will continue to monitor blood counts, transfuse for hgb <7, and platelets less than 10,000, or if symptomatic -Iron studies from 03/08 showed iron 40, TBIC 270, Iron sat 14.66%, and ferritin 655, most suggestive of iron deficiency when taken into consideration that pt likely was s/p 2-3 units of blood when those labs were drawn. Will hold iron for the time being due to acute infectious processes, will consider when conditions improve. -DIC workup ordered. Dose of Vitamin K ordered due to elevation in INR, likely a results of prolonged hospitalization and poor nutrition. Repeat labs in AM. -EGD 03/17/22 mild gastritis, esophagitis. Pending Barium swallow
[2022-04-10 20:15] LABS: Glucose,Whole Blood 148 mg/dL (70-110)
[2022-04-10] MEDS: MIRTAZAPINE 15 MG TAB PO SCH (20:27)
--- NOTE | 2022-04-10 21:09 | P.PN ---
Subjective Progress Note Date: 04/10/22 Principal diagnosis: UTI and bacteremia Patient is a 71-year-old female with a past medical history difficult for atrial fibrillation flutter hypertension hyperlipidemia hypothyroidism right breast cancer electively admitted to the hospital more than 2 weeks ago 022 for T10 to lumbar spine revision decompression and posterior lateral interbody fusion, patient did have a episode of hypotension and elevated white count requiring admission to the ICU patient did have a positive UA and gram- negative bacteremia and is scheduled for exploration of the thoracolumbar incision completed on 03/09/2022 with apparently no evidence of any abscess On today's evaluation that is 04/10/2022 the patient remains to be afebrile , the patient is breathing comfortably on 2 L nasal cannula, the patient denies any chest pain shortness of breath , the patient and did have occasional dry cough, the patient did have some nausea but no vomiting no abdominal pain Objective - Vital Signs Vital signs: Vital Signs Temp 97.6 F 04/10/22 08:00 Pulse 103 H 04/10/22 10:00 Resp 13 04/10/22 10:00 BP 117/70 04/10/22 10:00 Pulse Ox 95 04/10/22 10:00 FiO2 2 04/04/22 05:29 Intake & Output 04/09/22 04/10/22 04/10/22 18:59 06:59 18:59 Intake Total 2663 700 900 Output Total 517 773 196 Balance 2146 -73 704 Weight 127.777 kg 127.777 kg Intake: IV 350 700 450 Piperacillin-Tazobactam 3 100 200 .375 gm In Sodium Chloride 0.9% 100 ml @ 25 mls/hr IVPB Q8HR [facility] Rx# :[id number] Sodium Chloride 0.9% 1, 150 000 ml @ 10 mls/hr IV . Q24H [facility] Rx#:[id number] Sodium Chloride 0.9% 1, 200 600 250 000 ml @ 50 mls/hr IV . Q20H [facility] Rx#:[id number] Intake, IV Titration 100 450 Amount Amiodarone 450 mg In 250 Dextrose 5% in Water 250 ml @ 0.5 MG/MIN 16.667 mls/hr IV .Q15H [facility] Rx#: [id number] Anidulafungin 100 mg In 100 Sodium Chloride 0.9% 100 ml @ 84 mls/hr IVPB DAILY [facility] Rx#:[id number] Potassium Chloride 20 meq 100 In Water For Injection 1 100ml.bag @ 50 mls/hr IVPB Q2H [facility] Rx#: [id number] Potassium Chloride 20 meq 100 In Water For Injection 1 100ml.bag @ 50 mls/hr IVPB Q2H [facility] Rx#: [id number] Blood Product 2213 Platelet Pheresis Pas 353 Psoralen Unit [id number] Rc As-1 Unit 310 [id number] Rc As-1 Unit 310 [id number] Rc As-1 Unit 310 [id number] Output: Urine 515 770 195 Stool 2 3 1 Other: Voiding Method Indwelling Catheter Indwelling Catheter Indwelling Catheter # Bowel Movements 1 1 ABP, PAP, CO, CI - Last Documented Arterial Blood Pressure 158/70 - Exam GENERAL DESCRIPTION: An elderly female lying in bed in no distress RESPIRATORY SYSTEM: Unlabored breathing , decreased breath sounds at bases HEART: S1 S2 regular rate and rhythm , ABDOMEN: Soft , no tenderness Lower lumbar spine incision site is currently dressed EXTREMITIES: Diffuse swelling bilateral lower extremity - Labs CBC & Chem 7: 04/10/22 18:47 04/10/22 05:00 Labs: Abnormal Lab Results - Last 24 Hours (Table) 04/09/22 04/09/22 04/09/22 Range/Units 08:40 16:03 16:35 WBC 14.5 H (3.8-10.6) k/uL RBC 3.10 L (3.80-5.40) m/uL Hgb 10.0 L D (11.4-16.0) gm/dL Hct 28.0 L (34.0-46.0) % RDW 18.7 H (11.5-15.5) % Plt Count 26 L D (150-450) k/uL Neutrophils # (Manual) 13.70 H (1.3-7.7) k/uL Lymphocytes # (Manual) 0.44 L (1.0-4.8) k/uL Metamyelocytes # (Man) 0.15 H (0) k/uL Nucleated RBCs 21 H (0-0) /100 WBC Sodium (137-145) mmol/L BUN (7-17) mg/dL Creatinine (0.52-1.04) mg/dL Glucose (74-99) mg/dL POC Glucose (mg/dL) 153 H (70-110) mg/dL Calcium (8.4-10.2) mg/dL Crossmatch See Detail 04/09/22 04/10/22 04/10/22 Range/Units 21:58 05:00 05:00 WBC 13.5 H (3.8-10.6) k/uL RBC 2.89 L (3.80-5.40) m/uL Hgb 9.2 L (11.4-16.0) gm/dL Hct 25.8 L (34.0-46.0) % RDW 20.1 H (11.5-15.5) % Plt Count 41 L D (150-450) k/uL Neutrophils # (Manual) 10.80 H (1.3-7.7) k/uL Lymphocytes # (Manual) (1.0-4.8) k/uL Metamyelocytes # (Man) 0.14 H (0) k/uL Nucleated RBCs 10 H (0-0) /100 WBC Sodium 134 L (137-145) mmol/L BUN 33 H (7-17) mg/dL Creatinine 0.44 L (0.52-1.04) mg/dL Glucose 120 H (74-99) mg/dL POC Glucose (mg/dL) 139 H (70-110) mg/dL Calcium 7.1 L (8.4-10.2) mg/dL Crossmatch 04/10/22 04/10/22 Range/Units 06:27 11:21 WBC (3.8-10.6) k/uL RBC (3.80-5.40) m/uL Hgb (11.4-16.0) gm/dL Hct (34.0-46.0) % RDW (11.5-15.5) % Plt Count (150-450) k/uL Neutrophils # (Manual) (1.3-7.7) k/uL Lymphocytes # (Manual) (1.0-4.8) k/uL Metamyelocytes # (Man) (0) k/uL Nucleated RBCs (0-0) /100 WBC Sodium (137-145) mmol/L BUN (7-17) mg/dL Creatinine (0.52-1.04) mg/dL Glucose (74-99) mg/dL POC Glucose (mg/dL) 145 H 153 H (70-110) mg/dL Calcium (8.4-10.2) mg/dL Crossmatch Microbiology - Last 24 Hours (Table) 04/04/22 11:04 Blood Culture - Preliminary Blood No Growth after 120 hours 04/06/22 23:53 Urine Culture - Final Urine,Catheterized Patsy albicans Assessment and Plan (1) Sepsis Current Visit: Yes Status: Acute Code(s): A41.9 - SEPSIS, UNSPECIFIED ORGANISM SNOMED Code(s): 01452175 Plan: 1-patient with elevated white count and concern for possible maceration of the lower end of the incision cultures obtained per hospitalist which are currently growing enterococcus and Pseudomonas along with anaerobe and Patsy possible colonization however the patient is high risk of infection as per discussion with the spine surgery and has been on suppressive Zosyn. 2-patient with episode of GI bleeding and required admission to the ICU/3 S. both surgery and GI following the patient closely, patient has received multiple blood transfusion and apparently is currently waiting for transfer to tertiary care 3patient with a cath associated UTI urine has been positive for Patsy albicans, Diflucan could not be used because of drug interaction, patient is on Eraxis white count is stable around 13,000 Time with Patient: Less than 30
[2022-04-11] MEDS: HYDROcodone/APAP 10-325MG 1 EACH TAB PO PRN ×3 (00:20→17:46)
[2022-04-11] MEDS: PIPERACILLIN-TAZOBACTAM 3.375 GM in SODIUM CHLORIDE 0.9% 100 ML IVPB SCH ×3 (00:21→16:37)
[2022-04-11] MEDS: ACETAMINOPHEN TAB 500 MG TAB PO SCH ×4 (00:21→17:46)
[2022-04-11] MEDS: SODIUM CHLORIDE 0.9% 1,000 ML IV SCH (03:00)
[2022-04-11] MEDS: LEVOTHYROXINE 88 MCG TAB PO SCH (06:00)
[2022-04-11 06:42] LABS: Glucose,Whole Blood 135 mg/dL (70-110)
[2022-04-11] MEDS: INSULIN ASPART (NovoLOG) 100 UNIT/ML VIAL SQ SCH ×4 (06:44→21:37)
[2022-04-11 06:45] LABS: African American GFR (CKD) >90 (>60 ml/min/1.73 sqM); Anion Gap -2 mmol/L; Blood Urea Nitrogen 26 mg/dL (7-17); Calcium 7.1 mg/dL (8.4-10.2); Carbon Dioxide 28 mmol/L (22-30); Chloride 108 mmol/L (98-107); Glucose 119 mg/dL (74-99); Non-African American GFR(CKD) >90 (>60 ml/min/1.73 sqM); Sodium 134 mmol/L (137-145)
[2022-04-11 06:54] LABS: INR 1.1 (<1.2); Partial Thromboplastin Time 24.2 sec (22.0-30.0); Prothrombin Time 11.3 sec (9.0-12.0)
[2022-04-11] MEDS: MIDODRINE 5 MG TAB PO SCH ×3 (07:07→17:44)
[2022-04-11 07:13] LABS: Anisocytosis Moderate; HCT 26.5 % (34.0-46.0); HGB 8.9 gm/dL (11.4-16.0); Hypochromasia Slight; MCHC 33.6 g/dL (31.0-37.0); MCV 92.3 fL (80.0-100.0); Macrocytosis Slight; Mean Platelet Volume 10.8; Poikilocytosis Moderate; RBC 2.87 m/uL (3.80-5.40); RDW 21.3 % (11.5-15.5)
[2022-04-11 07:15] LABS: Platelet Count 45 k/uL (150-450)
[2022-04-11 08:12] LABS: Lymphocytes # (M) 1.23 k/uL (1.0-4.8); Monocytes # (M) 0.67 k/uL (0-1.0); Myelocytes # (M) 0.11 k/uL (0); Myelocytes % 1 %; Neutrophils % (M) 83 %; Nucleated Red Blood Cells 9 /100 WBC (0-0); Total Cells Counted 200; WBC 11.2 k/uL (3.8-10.6)
[2022-04-11 08:14] LABS: Polychromasia Present
--- NOTE | 2022-04-11 08:27 | P.PN ---
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 Patient is resting in bed. NG tube present. Thoracolumbar surgical dressing is CDI. Patient remains very lethargic and has generalized weakness. She was unable to perform any bed exercises or follow commands. Patient is being transferred to tertiary hospital when bed available. She has been afebrile and denies nausea/vomiting or chest pain. Objective - Vital Signs Vital signs: Vital Signs Temp 98.2 F 04/10/22 20:00 Pulse 109 H 04/11/22 07:00 Resp 10 L 04/11/22 07:00 BP 117/75 04/11/22 07:00 Pulse Ox 100 04/11/22 07:00 FiO2 2 04/04/22 05:29 Intake & Output 04/10/22 04/11/22 04/11/22 18:59 06:59 18:59 Intake Total 1300 990 Output Total 433 470 Balance 867 520 Weight 127.777 kg Intake: IV 850 700 Piperacillin-Tazobactam 3 200 100 .375 gm In Sodium Chloride 0.9% 100 ml @ 25 mls/hr IVPB Q8HR [facility] Rx# :[id number] Sodium Chloride 0.9% 1, 650 600 000 ml @ 50 mls/hr IV . Q20H [facility] Rx#:[id number] Intake, IV Titration 450 Amount Amiodarone 450 mg In 250 Dextrose 5% in Water 250 ml @ 0.5 MG/MIN 16.667 mls/hr IV .Q15H [facility] Rx#: [id number] Anidulafungin 100 mg In 100 Sodium Chloride 0.9% 100 ml @ 84 mls/hr IVPB DAILY [facility] Rx#:[id number] Potassium Chloride 20 meq 100 In Water For Injection 1 100ml.bag @ 50 mls/hr IVPB Q2H [facility] Rx#: [id number] Tube Feeding 200 Other 90 Output: Urine 430 470 Stool 3 Other: Voiding Method Indwelling Catheter Indwelling Catheter # Bowel Movements 1 ABP, PAP, CO, CI - Last Documented Arterial Blood Pressure 158/70 - Exam Surgical incision was checked and appears to be healing well this time. Sensation is present in bilateral upper extremities and lower extremities. It is equal and bilaterally intact. Patient does have good range of motion in bilateral upper and lower extremities with assistance. Patient does have limited range of motion in right hip flexion/extension and right knee flexion/extension bilaterally due to weakness/pain. 4-/5 in all major motor groups in bilateral upper extremities. 3/5 in all major motor bilateral lower extremities. Radial pulse intact, 2+ bilaterally. Cap refill under 3 seconds in digits of upper extremities. Negative Homans bilaterally. Negative Susan bilaterally. Negative clonus bilaterally. - Labs CBC & Chem 7: 04/11/22 06:10 04/11/22 06:10 Labs: Abnormal Lab Results - Last 24 Hours (Table) 04/10/22 04/10/22 04/10/22 Range/Units 11:21 16:35 18:47 WBC 13.4 H (3.8-10.6) k/uL RBC 2.68 L (3.80-5.40) m/uL Hgb 8.4 L (11.4-16.0) gm/dL Hct 24.6 L (34.0-46.0) % RDW 22.1 H (11.5-15.5) % Plt Count 46 L (150-450) k/uL Neutrophils # (Manual) (1.3-7.7) k/uL Myelocytes # (Manual) (0) k/uL Nucleated RBCs (0-0) /100 WBC Sodium (137-145) mmol/L Chloride (98-107) mmol/L BUN (7-17) mg/dL Creatinine (0.52-1.04) mg/dL Glucose (74-99) mg/dL POC Glucose (mg/dL) 153 H 130 H (70-110) mg/dL Calcium (8.4-10.2) mg/dL 04/10/22 04/11/22 04/11/22 Range/Units 20:13 06:10 06:10 WBC 11.2 H (3.8-10.6) k/uL RBC 2.87 L (3.80-5.40) m/uL Hgb 8.9 L (11.4-16.0) gm/dL Hct 26.5 L (34.0-46.0) % RDW 21.3 H (11.5-15.5) % Plt Count 45 L (150-450) k/uL Neutrophils # (Manual) 9.30 H (1.3-7.7) k/uL Myelocytes # (Manual) 0.11 H (0) k/uL Nucleated RBCs 9 H (0-0) /100 WBC Sodium 134 L (137-145) mmol/L Chloride 108 H (98-107) mmol/L BUN 26 H (7-17) mg/dL Creatinine 0.45 L (0.52-1.04) mg/dL Glucose 119 H (74-99) mg/dL POC Glucose (mg/dL) 148 H (70-110) mg/dL Calcium 7.1 L (8.4-10.2) mg/dL 04/11/22 Range/Units 06:41 WBC (3.8-10.6) k/uL RBC (3.80-5.40) m/uL Hgb (11.4-16.0) gm/dL Hct (34.0-46.0) % RDW (11.5-15.5) % Plt Count (150-450) k/uL Neutrophils # (Manual) (1.3-7.7) k/uL Myelocytes # (Manual) (0) k/uL Nucleated RBCs (0-0) /100 WBC Sodium (137-145) mmol/L Chloride (98-107) mmol/L BUN (7-17) mg/dL Creatinine (0.52-1.04) mg/dL Glucose (74-99) mg/dL POC Glucose (mg/dL) 135 H (70-110) mg/dL Calcium (8.4-10.2) mg/dL Microbiology - Last 24 Hours (Table) 04/04/22 11:04 Blood Culture - Final Blood No Growth after 144 hours Assessment and Plan Assessment: Lumbar spondylosis; adjacent segment disease status post L2-L4 posterior fusion with proximal junctional failure; neurogenic claudication - status post [id number] decompression and fusion with washout and revision dural repair -UGI and LGI bleed, requiring transfusions -ABLA expected outcome of surgery as well as secondary to UGI bleed. Status post 7 units PRBC and 1 pack platelets -bilateral lower extremity weakness, status post multiple controlled falls in- house -Enterobacter sepsis, UTI -status post cardiac arrest Plan: -Appreciate labor relations consultant and team management PCC and medicine -Appreciate cardiothoracic, Gen. surgery, nephrology, ID evaluations -Continue Activity: as medically tolerated -PT / OT DAILY work on increased strength in LE quads, hammys, etc for standing -Cont Abx for duration of stay -Pain control: Adequate today (Cont with percocet. NO more oxy IR, or dilaudid at this time. Watch pressures and VS due to her bleed. -Meplex pads on sacral region with barrier cream. Cont turn. Sit at different angles. -Meds: reviewed -Trend labs, trend SED and CRP for markers -Transfusions to vitals -GI ppx: senna, Miralax -Continue Warren changed per protocol -Cont with FBS -DVT PPX: Mechanical only -Hygiene: Maintain dressing clean and dry. Meticulous cleaning after BMs away from incision site patient has had several instances on the floor where she was covered and bowel movement as well as urine up to her shoulders on her back. The wound needs to be kept meticulously clean. -Encourage IS 10x/hr -General surgery is requesting transfer for GI coverage due to her ongoing GI bleed.
[2022-04-11] MEDS: DULoxetine HCL 60 MG CAPSULE.DR PO SCH (09:48)
[2022-04-11] MEDS: PANTOPRAZOLE 40 MG/10 ML VIAL IVP SCH ×2 (09:48→21:38)
[2022-04-11] MEDS: AMIODARONE 200 MG TAB PO SCH (09:48)
[2022-04-11] MEDS: METOPROLOL TARTRATE 50 MG TAB PO SCH ×3 (09:48→21:39)
[2022-04-11] MEDS: ATORVASTATIN 20 MG TAB PO SCH (09:48)
[2022-04-11] MEDS: MAGNESIUM OXIDE 400 MG TAB PO SCH (09:48)
[2022-04-11] MEDS: SODIUM BICARBONATE TAB 650 MG TAB PO SCH ×2 (09:48→21:39)
[2022-04-11] MEDS: GABAPENTIN 400 MG CAP PO SCH ×3 (09:48→21:39)
[2022-04-11] MEDS: DIGOXIN 250 MCG TAB PO SCH (09:49)
[2022-04-11] MEDS: LACTULOSE 20 GM/30 ML CUP PO SCH ×2 (09:49→21:37)
[2022-04-11] MEDS: MAG HYDROX/AL HYDROX/SIMETH 30 ML, diphenhydrAMINE ELIXIR 75 MG, LIDOCAINE VISCOUS 2% 3... PO SCH ×9 (09:49→21:40)
[2022-04-11] MEDS: ANIDULAFUNGIN 100 MG in SODIUM CHLORIDE 0.9% 100 ML IVPB SCH (09:55)
[2022-04-11 11:31] LABS: Glucose,Whole Blood 156 mg/dL (70-110)
--- NOTE | 2022-04-11 12:12 | P.PN ---
Subjective Progress Note Date: 04/11/22 Principal diagnosis: status post lumbar decompression/fusion Is evaluation of 02/25/2022, the patient is being seen for a follow-up in the intensive care unit. The patient is post laminectomy and fusion/decompression of the spine and this was done on multiple levels. The patient overnight was kept on a mechanical ventilator. This morning, the patient is on propofol which is running at 35 mcg/kg/m. The patient is well sedated and the patient is quite sick sinus with a mechanical ventilator. The patient is requiring no pressors. The patient on normal saline in the at the rate of 50 mL an hour. The patient is on a mechanical ventilator on assist control mode at the rate of 18, tidal volume of 450, FiO2 of 40% with a PEEP of 5. The blood gas from today showed a pH of 7.41 with a pCO2 of 35 and pO2 of 138. Chest x-ray shows smaller lung volumes, some mild elevation of the right hemidiaphragm. ET tube is sitting just at the level of the aortic knob. No evidence of any pneumothorax. No airspace disease or consolidations. The patient also had a CT angiogram that showed no evidence of any pulmonary embolism. That showed atelectatic change in lung bases and various up other lung segments. No effusion. No lung collapse. CAT scan of the lumbosacral spine was also completed. The surgical one-sided dry clean and intact. The Hemovac output is bloody and its minimal at this point in time. The patient is afebrile. The patient is in atrial fibrillation. Rate is controlled. The patient is receiving Dilaudid for pain control.Blood work from today shows a white cell count of 14.7 with a hemoglobin of 10.1 and a platelet count of 232. The patient also has a sodium level of 135, potassium level of 4.4, chloride is 106 with a bicarb of 23 and a BUN of 15 and a creatinine of 0.5. On 04/09/2022, the patient is in the intensive care area that she is having ongoing issues with GI bleeding. Hemoglobin has been fluctuating. I have discussed this issue with the general surgeon on multiple occasions. It was thought that the stool was brown based on the surgeon's evaluation. Nevertheless, this morning, hemoglobin drop down to 4.9 and I witnessed a large quantity of maroon stool and the patient's bed in the morning evaluation. Furthermore, the blood work from today showed a hemoglobin of 4.9 and the patient is obviously having ongoing issues with GI bleeding. She remains on IV Protonix. GI surgeries on the case and he'll remains aware of those changes. Her cardiac rhythm is irregular consistent with age of fibrillation/flutter. No hematemesis. No abdominal pain. Hemodynamically stable despite a significant drop in hemoglobin down to 4.9. The rest of the blood work shows a sodium level of 131, potassium level is at 3.3, BUN is 35 with a creatinine of 0.54. The patient remains on the same antibiotic coverage. The patient remains on a combination of Zosyn and Eraxis. The patient otherwise is still critical and intensive care unit and the activation for now remains episodes of atrial fibrillation fluctuating hemoglobin. Note that the patient also had an issue with itchy fibrillation with rapid ventricular response yesterday. Based on that, the patient was loaded with amiodarone and the patient continues to be on amiodarone at a dose of 0.5 mg/m. Heart rate under better control for now. Reevaluated today on 04/10/2022, patient remains in the ICU, being followed by surgery for her GI bleeding, received a total of 12 units of packed RBCs since admission, and 2 units of platelets. An hemoglobin today is 9.2. Apparently the patient continues to have intermittent episodes of maroon colored stools, and surgery on the case is recommending transfer to a tertiary care institution is there is no GI coverage. Patient is on 4 L nasal cannula, does not seem to be in any distress, however she seems to be generally weak. Her initial back surgery was 02/24, another back surgery was done on 03/09, and EGD was done on 03/09 patient is on amiodarone at 0.5 mg/m, seems to have regular rhythm, she may be in atrial flutter. She is on normal saline at 50 mL per hour. Again plans are in progress to consider transferring the patient to another institution. WBC count today is 13.5 hemoglobin is 9.2. Lites are normal, renal profile is normal Reevaluated today on 04/11/2022, patient is basically about the same, remained generally weak and debilitated. Her hemoglobin is holding, her hemoglobin yesterday was 8.4, is 8.9 today. No further episodes of GI bleeding at present, nonetheless the patient is going to be transferred to [facility] hopefully sometime today, she was accepted, and waiting for a bed to become available. MRI of the brain yesterday showed small vessel ischemic change, otherwise no ac yolanda process noted. Basic metabolic profile today is relatively normal, renal profile is normal. Objective - Vital Signs Vital signs: Vital Signs Temp 99.0 F 04/11/22 08:00 Pulse 105 H 04/11/22 11:00 Resp 10 L 04/11/22 11:00 BP 111/63 04/11/22 11:00 Pulse Ox 100 04/11/22 11:00 FiO2 2 04/04/22 05:29 Intake & Output 04/10/22 04/11/22 04/11/22 18:59 06:59 18:59 Intake Total 1300 990 330 Output Total 433 470 130 Balance 867 520 200 Weight 127.777 kg Intake: IV 850 700 200 Piperacillin-Tazobactam 3 200 100 .375 gm In Sodium Chloride 0.9% 100 ml @ 25 mls/hr IVPB Q8HR [facility] Rx# :[id number] Sodium Chloride 0.9% 1, 650 600 200 000 ml @ 50 mls/hr IV . Q20H [facility] Rx#:[id number] Intake, IV Titration 450 Amount Amiodarone 450 mg In 250 Dextrose 5% in Water 250 ml @ 0.5 MG/MIN 16.667 mls/hr IV .Q15H [facility] Rx#: [id number] Anidulafungin 100 mg In 100 Sodium Chloride 0.9% 100 ml @ 84 mls/hr IVPB DAILY [facility] Rx#:[id number] Potassium Chloride 20 meq 100 In Water For Injection 1 100ml.bag @ 50 mls/hr IVPB Q2H [facility] Rx#: [id number] Tube Feeding 200 100 Other 90 30 Output: Urine 430 470 130 Stool 3 Other: Voiding Method Indwelling Catheter Indwelling Catheter Indwelling Catheter # Bowel Movements 1 ABP, PAP, CO, CI - Last Documented Arterial Blood Pressure 158/70 - Exam Physical Exam: Revealed a 71-year-old female in no distress. 2 L nasal cannula Head: Atraumatic, normocephalic. HEENT:[Neck is supple.] [No neck masses.] [No thyromegaly.] [No JVD.] Triple- lumen catheter noted in the right IJ. Chest: [Clear throughout, no crackles, no rhonchi, no wheezes.] Cardiac Exam: Regular rhythm, normal S1 and S2, no S3 gallop, no murmur.] Abdomen: [Soft, nontender, no megaly, no rebound, no guarding, normal bowel sounds.] Extremities: [No clubbing, no edema, no cyanosis.] Neurological Exam: [No focal neurologic deficit.]alert oriented 3, no gross focal deficits. Psychiatric: Normal mood affect and normal mental status examination. Skin: No rashes. - Labs CBC & Chem 7: 04/11/22 06:10 04/11/22 06:10 Labs: Abnormal Lab Results - Last 24 Hours (Table) 04/10/22 04/10/22 04/10/22 Range/Units 16:35 18:47 20:13 WBC 13.4 H (3.8-10.6) k/uL RBC 2.68 L (3.80-5.40) m/uL Hgb 8.4 L (11.4-16.0) gm/dL Hct 24.6 L (34.0-46.0) % RDW 22.1 H (11.5-15.5) % Plt Count 46 L (150-450) k/uL Neutrophils # (Manual) (1.3-7.7) k/uL Myelocytes # (Manual) (0) k/uL Nucleated RBCs (0-0) /100 WBC Sodium (137-145) mmol/L Chloride (98-107) mmol/L BUN (7-17) mg/dL Creatinine (0.52-1.04) mg/dL Glucose (74-99) mg/dL POC Glucose (mg/dL) 130 H 148 H (70-110) mg/dL Calcium (8.4-10.2) mg/dL 04/11/22 04/11/22 04/11/22 Range/Units 06:10 06:10 06:41 WBC 11.2 H (3.8-10.6) k/uL RBC 2.87 L (3.80-5.40) m/uL Hgb 8.9 L (11.4-16.0) gm/dL Hct 26.5 L (34.0-46.0) % RDW 21.3 H (11.5-15.5) % Plt Count 45 L (150-450) k/uL Neutrophils # (Manual) 9.30 H (1.3-7.7) k/uL Myelocytes # (Manual) 0.11 H (0) k/uL Nucleated RBCs 9 H (0-0) /100 WBC Sodium 134 L (137-145) mmol/L Chloride 108 H (98-107) mmol/L BUN 26 H (7-17) mg/dL Creatinine 0.45 L (0.52-1.04) mg/dL Glucose 119 H (74-99) mg/dL POC Glucose (mg/dL) 135 H (70-110) mg/dL Calcium 7.1 L (8.4-10.2) mg/dL 04/11/22 Range/Units 11:28 WBC (3.8-10.6) k/uL RBC (3.80-5.40) m/uL Hgb (11.4-16.0) gm/dL Hct (34.0-46.0) % RDW (11.5-15.5) % Plt Count (150-450) k/uL Neutrophils # (Manual) (1.3-7.7) k/uL Myelocytes # (Manual) (0) k/uL Nucleated RBCs (0-0) /100 WBC Sodium (137-145) mmol/L Chloride (98-107) mmol/L BUN (7-17) mg/dL Creatinine (0.52-1.04) mg/dL Glucose (74-99) mg/dL POC Glucose (mg/dL) 156 H (70-110) mg/dL Calcium (8.4-10.2) mg/dL Microbiology - Last 24 Hours (Table) 04/04/22 11:04 Blood Culture - Final Blood No Growth after 144 hours Assessment and Plan Assessment: Impression: Recurrent GI bleeding, being considered for transfer. Acute Enterobacter urinary tract infection and sepsis with bacteremia secondary to Enterobacter. Remains on antibiotics. As per infectious disease on the case Atrial fibrillation/flutter Leukocytosis. Lumbar decompression/fusion February 05 and on 03/09/22, patient underwent exploration and washout with dural repairs secondary to falls Brief cardiac arrest/Pea in the operating room during her initial surgery. 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 Continue antibiotics. Awaiting for bed available to be transferred We'll continue to follow Time with Patient: Less than 30
--- NOTE | 2022-04-11 13:03 | P.PN ---
Subjective Progress Note Date: 04/11/22 Principal diagnosis: cardiac arrest Hospital Course: Patient is a 71 yo CF with a hx of A fib s/p ablation, GERD, hypertension, dyslipidemia, and right diaphragmatic paralysis who presented for T10 to Pelvis decompression and fusion with revision. Course complicated by significant blood loss. Patient was on vasopressors, also received TXA gtt. She received 7 L of lactated Ringer's. She received 1 amp of sodium bicarb intaop. She also received albumin. Patient then had a cardiac arrest. During the case she developed A. fib with RVR and then quickly transitioned into bradycardia with a low end-tidal CO2. She received 0.4 of atropine and CPR was started. She received epinephrine 0.5. She achieved ROSC. Total down time was less than 5 minutes. She was extubated on 02/25. She continued to do well but struggled with pain. She was downgraded from ICU on 03/03. On 03/06/22 patient was noted to have a significant drop in hemoglobin from 10.0 down to 7.5 and upon reevaluation on 03/07 was found to have hemoglobin of 5.4, patient required multiple transfu sions. She has received a total of 7 units PRBCs and 1 unit of platelets. She underwent a CT abdomen and pelvis and was found to have a large right chest hematoma dilated small bowel concerning for ileus. Patient was evaluated by cardiothoracic surgery and they recommended conservative management. On 03/07, patient was noted to be hypotensive with elevated WBC count of 42.3, with worsening renal function and hyperkalamia. Patient was treated with NS bolus, IV insulin/D50, Albuterol and sodium bicarbonate. She was transferred back to the ICU for septic shock requiring Levophed. Patient was started on Vancomycin and Cefepime. Blood and urine cultures were obtained and positive for Enterobacter. Infectious disease was consulted and patient was continued on Cefepime for treatment of Enterobacter UTI with secondary bacteremia and Vancomycin was discontinued. Patient was later weaned off of vasopressors and again transferred out of the ICU. Patient was started on Lasix for treatment of acute on chronic systolic heart failure with EF of 35-40%. Patient continued on Protonix for GI prophylaxis, amiodarone and metoprolol for atrial fibrillation with RVR sodium bicarb for treatment of metabolic acidosis. Pt's Xarelto remains hold at this time. Patient was evaluated by PMR and is currently not a candidate for inpatient rehab. She has been cleared by orthopedic surgery to start working with physical therapy. On 03/26/22 patient was again found to have elevating leukocytosis and repeat Wound cultures were obtained. Wound cultures were positive for pseudomonas aeruginosa, enterococcus fasciculus, and Patsy albicans. Patient to continue with Zosyn per culture and sensitivity report and as recommended by infectious disease as this may be contamination/colonization however patient is a high risk of infection so we will continue with empiric antibiotic therapy. Overnight on 03/28/22 patient again developed episodes of melena and at that time Dr. Arce, general surgeon was re-consulted. CT abdomen and pelvis revealing bilateral hydronephrosis unable to rule out obstructive etiology, concerns for fecal impaction, and persistent previously known right anterior chest wall hematoma. General surgery following and reevaluated patient secondary to concerns of fecal impaction and started patient on lactulose. Warren catheter was inserted secondary to bilateral hydronephrosis and patient was evaluated by urologist recommending continuation of Warren catheter as bilateral hydronephrosis is believed to be resulting secondary to urinary retention. On the evening of 04/03/21 patient with continued atrial tachycardia and hypotension and unable to take metoprolol secondary to low blood pressures. Patient had episode of hematochezia along with large blood clot and was philippe sferred back to the ICU. Had bedside manual disimpaction with general surgery. Also has a posterior anal fissure could likely because of current bleeding. On a bowel regimen. Hemoglobin continues to down trend. Requiring further blood transfusions. Hemoglobin currently stable. Hemodynamically stable. Patient pending transfer for GI at [facility]. Subjective: Patient seen and examined at bedside. Patient did not have any further blood BM. Urine output is stable. Patient nutrition status is poor. Getting tube feeds. Pertinent positives and negatives as discussed above, a complete review of systems was performed and all other systems are negative. Vitals Signs Reviewed. General: ill appearing, no acute distress, appears at stated age, Derm: warm, dry. Postsurgical dressing clean, dry, and intact this morning. Head: atraumatic, normocephalic, symmetric Eyes: EOMI, no lid lag, anicteric sclera Mouth: no lip lesion, dry membranes moist Cardiovascular: S1S2 irregular, tachycardic, no murmur Lungs: Respirations even, regular, and unlabored on room air. Lungs clear to auscultation bilaterally , 2 L Ext: no gross muscle atrophy, 2+ pitting edema, no contractures Abd: Warren catheter in place. Obese. Non tender to palpation. Neuro: Moving all 4 extremities independently, sensation and movement equal and intact in bilateral upper and lower extremities. Patient continues with equal Bilateral lower extremity weakness unable to lift legs off the bed independentl y. Psych:: Patient with depressed affect, she is pleasant and cooperative. Assessment and Plan: GI bleeding, likely lower Acute abdominal pain - resolved Fecal impaction, status post manual disimpaction Posterior Anal fissure -CT abdomen and pelvis concerning for possible fecal impaction. -Gen. surgery was consulted for reevaluation -Continue with Protonix 40 mg IVP twice daily -Hemoglobint stable -Requiring more blood transfusions -On bowel regimen -Patient to be transferred for GI Atrial tachycardia/fibrillation with RVR Hypotension -not on pressors Status post Cardiac arrest with ROSC Acute on chronic systolic heart failure -Cardiology following -Continuous telemetry monitoring. -Oral amiodarone and digoxin, and metoprolol -Diuretics held -also on Midodrine -Holding anticoagulation due to ongoing GI bleed Poor nutritional intake Severe protein calorie malnutrition Anasarca -Patient started on mirtazapine -Patient getting tube feeds Hypokalemia- resolved Septic shock - resolved Enterobacter cloacae UTI with secondary bacteremia - resolved Lactic acidosis Leukocytosis -resolved Patsy UTI -Infectious disease following and managing antibiotic course at this time. Patient remains on Zosyn -ID has patient on Eraxis Bilateral hydronephrosis, likely secondary to urinary retention -CT abdomen and pelvis revealing bilateral hydronephrosis unable to rule out obstructive etiology. -Renal function stable -Urology following, recommending continuation of Warren catheter Prerenal azotemia, improving Hyponatremiaresolving Hyperkalemiaresolved Hypokalemiaresolved Metabolic acidosis, resolved -Continue sodium bicarb 650 mg twice a day -Nephrology following. Prediabetes with hyperglycemia, now hypoglycemia -Likely steroid induced -A1c is 6 -Continue with sliding scale Right breast hematoma - stable T10 to pelvis decompression with fusion Post-op pain -Management per primary admitting Orthopedic surgery team including DVT prophylaxis, pain management, wound/dressing care, weightbearing, and PT/OT . -PT/OT following. Right diaphragmatic paralysis -No interventions for her pulmonology Hyperlipidemia -atorvastatin. History of hypertension -Currently On Midodrine for episodes of hypotension Transaminitis -Likely ischemic hepatitis. -Resolved Thank you for allowing us to participate in the care of this pleasant patient. Do not hesitate to contact us with questions. Someone can be reached from the [facility] hospitalist group all hours of the day at [phone] or via perfect serve. Objective - Vital Signs Vital signs: Vital Signs Temp 97.5 F L 04/11/22 12:00 Pulse 105 H 04/11/22 12:00 Resp 15 04/11/22 12:00 BP 108/64 04/11/22 12:00 Pulse Ox 100 04/11/22 12:00 FiO2 2 04/04/22 05:29 Intake & Output 04/10/22 04/11/22 04/11/22 18:59 06:59 18:59 Intake Total 1300 990 440 Output Total 433 470 165 Balance 867 520 275 Weight 127.777 kg Intake: IV 850 700 250 Piperacillin-Tazobactam 3 200 100 .375 gm In Sodium Chloride 0.9% 100 ml @ 25 mls/hr IVPB Q8HR [facility] Rx# :[id number] Sodium Chloride 0.9% 1, 650 600 250 000 ml @ 50 mls/hr IV . Q20H [facility] Rx#:[id number] Intake, IV Titration 450 Amount Amiodarone 450 mg In 250 Dextrose 5% in Water 250 ml @ 0.5 MG/MIN 16.667 mls/hr IV .Q15H [facility] Rx#: [id number] Anidulafungin 100 mg In 100 Sodium Chloride 0.9% 100 ml @ 84 mls/hr IVPB DAILY [facility] Rx#:[id number] Potassium Chloride 20 meq 100 In Water For Injection 1 100ml.bag @ 50 mls/hr IVPB Q2H [facility] Rx#: [id number] Tube Feeding 200 130 Other 90 60 Output: Urine 430 470 165 Stool 3 Other: Voiding Method Indwelling Catheter Indwelling Catheter Indwelling Catheter # Bowel Movements 1 ABP, PAP, CO, CI - Last Documented Arterial Blood Pressure 158/70 - Labs CBC & Chem 7: 04/11/22 06:10 04/11/22 06:10 Labs: Abnormal Lab Results - Last 24 Hours (Table) 04/10/22 04/10/2223 Range/Units 16:35 18:47 20:13 WBC 13.4 H (3.8-10.6) k/uL RBC 2.68 L (3.80-5.40) m/uL Hgb 8.4 L (11.4-16.0) gm/dL Hct 24.6 L (34.0-46.0) % RDW 22.1 H (11.5-15.5) % Plt Count 46 L (150-450) k/uL Neutrophils # (Manual) (1.3-7.7) k/uL Myelocytes # (Manual) (0) k/uL Nucleated RBCs (0-0) /100 WBC Sodium (137-145) mmol/L Chloride (98-107) mmol/L BUN (7-17) mg/dL Creatinine (0.52-1.04) mg/dL Glucose (74-99) mg/dL POC Glucose (mg/dL) 130 H 148 H (70-110) mg/dL Calcium (8.4-10.2) mg/dL 04/11/22 04/11/22 04/11/22 Range/Units 06:10 06:10 06:41 WBC 11.2 H (3.8-10.6) k/uL RBC 2.87 L (3.80-5.40) m/uL Hgb 8.9 L (11.4-16.0) gm/dL Hct 26.5 L (34.0-46.0) % RDW 21.3 H (11.5-15.5) % Plt Count 45 L (150-450) k/uL Neutrophils # (Manual) 9.30 H (1.3-7.7) k/uL Myelocytes # (Manual) 0.11 H (0) k/uL Nucleated RBCs 9 H (0-0) /100 WBC Sodium 134 L (137-145) mmol/L Chloride 108 H (98-107) mmol/L BUN 26 H (7-17) mg/dL Creatinine 0.45 L (0.52-1.04) mg/dL Glucose 119 H (74-99) mg/dL POC Glucose (mg/dL) 135 H (70-110) mg/dL Calcium 7.1 L (8.4-10.2) mg/dL 04/11/22 Range/Units 11:28 WBC (3.8-10.6) k/uL RBC (3.80-5.40) m/uL Hgb (11.4-16.0) gm/dL Hct (34.0-46.0) % RDW (11.5-15.5) % Plt Count (150-450) k/uL Neutrophils # (Manual) (1.3-7.7) k/uL Myelocytes # (Manual) (0) k/uL Nucleated RBCs (0-0) /100 WBC Sodium (137-145) mmol/L Chloride (98-107) mmol/L BUN (7-17) mg/dL Creatinine (0.52-1.04) mg/dL Glucose (74-99) mg/dL POC Glucose (mg/dL) 156 H (70-110) mg/dL Calcium (8.4-10.2) mg/dL Microbiology - Last 24 Hours (Table) 04/04/22 11:04 Blood Culture - Final Blood No Growth after 144 hours
--- NOTE | 2022-04-11 15:50 | P.PN ---
Subjective Progress Note Date: 04/11/22 CHIEF COMPLAINT: Spinal surgery HISTORY OF PRESENT ILLNESS: Surgical service following in regards to GI bleed. Patient is in the ICU. She has a fecal management system in place. Stool is brown in color. No further blood reported per nursing staff. Patient denies any abdominal pain. Hemoglobin 9.2 yesterday down to 8.4 and then 8.9 today. Patient is awaiting transfer to [facility]. Patient did have some coughing with liquids today. She'll be evaluated by speech therapy. Afebrile. WBC is 1.2 Hgb 8.9 platelets are 45 sodium 134 potassium 4 creatinine 0.45 PHYSICAL EXAM: VITAL SIGNS: Reviewed. GENERAL: Well-developed in no acute distress. HEENT: No sclera icterus. Extraocular movements grossly intact. Moist buccal mucosa. Head is atraumatic, normocephalic. ABDOMEN: Soft. Obese. Nondistended. Nontender NEUROLOGIC: Sleeping comfortably ASSESSMENT: 1. Acute GI bleed 2. Posterior anal fissure with bleeding 3. Fecal impaction and constipation 4. Lumbar decompression/fusion and then with washout and dural repair 5. Cardiac arrest 6. EGD on 03/19/2022 that showed mild gastritis and esophagitis no active bleeding PLAN: -Continue tube feeds via NG tube -Continue clear liquid diet -Patient to be evaluated by speech therapy for swallow eval -Transfer process is in progress to [facility] -Continue to monitor hemoglobin -Continue monitoring for any signs or symptoms of bleeding -Continue PPI -Continue to hold anticoagulation Physician Sports Journalist note has been reviewed by physician. Signing provider agrees with the documented findings, assessment, and plan of care. I have personally seen and examined the patient, reviewed the TOWNSHIP CLERK /PAs history, exam and MDM and agree with the assessment and plan as written. Based on total visit time, I have performed more than 50% of the visit. As above: Patient sitting up in the chair. Tube feeds initiated. Tolerating that thus far. Stools are brown in color. Hemoglobin is stable. Objective - Vital Signs Vital signs: Vital Signs Temp 97.5 F L 04/11/22 12:00 Pulse 106 H 04/11/22 15:00 Resp 13 04/11/22 15:00 BP 107/62 04/11/22 15:00 Pulse Ox 100 04/11/22 13:00 FiO2 2 04/04/22 05:29 Intake & Output 04/10/22 04/11/22 04/11/22 18:59 06:59 18:59 Intake Total 1300 990 880 Output Total 433 470 295 Balance 867 520 585 Weight 127.777 kg 127.777 kg Intake: IV 850 700 600 Anidulafungin 100 mg In 100 Sodium Chloride 0.9% 100 ml @ 84 mls/hr IVPB DAILY [facility] Rx#:[id number] Piperacillin-Tazobactam 3 200 100 100 .375 gm In Sodium Chloride 0.9% 100 ml @ 25 mls/hr IVPB Q8HR [facility] Rx# :[id number] Sodium Chloride 0.9% 1, 650 600 400 000 ml @ 50 mls/hr IV . Q20H [facility] Rx#:[id number] Intake, IV Titration 450 Amount Amiodarone 450 mg In 250 Dextrose 5% in Water 250 ml @ 0.5 MG/MIN 16.667 mls/hr IV .Q15H [facility] Rx#: [id number] Anidulafungin 100 mg In 100 Sodium Chloride 0.9% 100 ml @ 84 mls/hr IVPB DAILY [facility] Rx#:[id number] Potassium Chloride 20 meq 100 In Water For Injection 1 100ml.bag @ 50 mls/hr IVPB Q2H [facility] Rx#: [id number] Tube Feeding 200 220 Other 90 60 Output: Urine 430 470 295 Stool 3 Other: Voiding Method Indwelling Catheter Indwelling Catheter Indwelling Catheter # Bowel Movements 1 ABP, PAP, CO, CI - Last Documented Arterial Blood Pressure 158/70 - Labs CBC & Chem 7: 04/11/22 06:10 04/11/22 06:10 Labs: Abnormal Lab Results - Last 24 Hours (Table) 04/10/22 04/10/22 04/10/22 Range/Units 16:35 18:47 20:13 WBC 13.4 H (3.8-10.6) k/uL RBC 2.68 L (3.80-5.40) m/uL Hgb 8.4 L (11.4-16.0) gm/dL Hct 24.6 L (34.0-46.0) % RDW 22.1 H (11.5-15.5) % Plt Count 46 L (150-450) k/uL Neutrophils # (Manual) (1.3-7.7) k/uL Myelocytes # (Manual) (0) k/uL Nucleated RBCs (0-0) /100 WBC Sodium (137-145) mmol/L Chloride (98-107) mmol/L BUN (7-17) mg/dL Creatinine (0.52-1.04) mg/dL Glucose (74-99) mg/dL POC Glucose (mg/dL) 130 H 148 H (70-110) mg/dL Calcium (8.4-10.2) mg/dL 04/11/22 04/11/22 04/11/22 Range/Units 06:10 06:10 06:41 WBC 11.2 H (3.8-10.6) k/uL RBC 2.87 L (3.80-5.40) m/uL Hgb 8.9 L (11.4-16.0) gm/dL Hct 26.5 L (34.0-46.0) % RDW 21.3 H (11.5-15.5) % Plt Count 45 L (150-450) k/uL Neutrophils # (Manual) 9.30 H (1.3-7.7) k/uL Myelocytes # (Manual) 0.11 H (0) k/uL Nucleated RBCs 9 H (0-0) /100 WBC Sodium 134 L (137-145) mmol/L Chloride 108 H (98-107) mmol/L BUN 26 H (7-17) mg/dL Creatinine 0.45 L (0.52-1.04) mg/dL Glucose 119 H (74-99) mg/dL POC Glucose (mg/dL) 135 H (70-110) mg/dL Calcium 7.1 L (8.4-10.2) mg/dL 04/11/22 Range/Units 11:28 WBC (3.8-10.6) k/uL RBC (3.80-5.40) m/uL Hgb (11.4-16.0) gm/dL Hct (34.0-46.0) % RDW (11.5-15.5) % Plt Count (150-450) k/uL Neutrophils # (Manual) (1.3-7.7) k/uL Myelocytes # (Manual) (0) k/uL Nucleated RBCs (0-0) /100 WBC Sodium (137-145) mmol/L Chloride (98-107) mmol/L BUN (7-17) mg/dL Creatinine (0.52-1.04) mg/dL Glucose (74-99) mg/dL POC Glucose (mg/dL) 156 H (70-110) mg/dL Calcium (8.4-10.2) mg/dL Microbiology - Last 24 Hours (Table) 04/04/22 11:04 Blood Culture - Final Blood No Growth after 144 hours
[2022-04-11 16:30] LABS: Glucose,Whole Blood 174 mg/dL (70-110)
--- NOTE | 2022-04-11 19:01 | XR ---
EXAMINATION TYPE: XR abdomen 1V DATE OF EXAM: 04/11/2022 6:46 PM INDICATION: Patient age:Female; 71 years old; Reason for study: ng insertion; COMPARISON: 03/08/2022 TECHNIQUE: One radiographic view of the abdomen was obtained. FINDINGS: Extensive postsurgical changes of the spine. Nasogastric tube is suboptimally visualized gi radha extensive surgical changes tip not definitively visualized. Gaseous dilation of loops of bowel th roughout the abdomen. IMPRESSION: Nasogastric distal tip and side-port not definitively visualized. Consider lateral imaging for better assessment.
[2022-04-11 20:10] LABS: Glucose,Whole Blood 167 mg/dL (70-110)
--- NOTE | 2022-04-11 21:05 | PN ---
PROGRESS NOTE SUBJECTIVE: Gabrielle is a 71-year-old lady with back pain, who was admitted to intensive care unit with atrial fibrillation. She remains in atrial fibrillation with poorly-controlled ventricular rate. She is on amiodarone. I started digoxin and metoprolol 50 t.i.d. She is hypotensive and requiring midodrine. OBJECTIVE: VITAL SIGNS: This morning, she remains in atrial fibrillation with heart rates around 110 beats per minute. Blood pressure is 110/62, respirations 18. CHEST: Reveals diminished air entry at the bases. HEART: Reveals first and second heart sounds. Irregular rhythm. Systolic murmur at the left lower sternal border. ABDOMEN: Soft. EXTREMITIES: Did not reveal any edema. LABORATORY DATA: Show that the hemoglobin is 8.9, platelet count is low. Potassium is 4, creatinine is 0.4. ASSESSMENT: Persistent atrial fibrillation with poorly-controlled ventricular rate. PLAN: The patient will continue the amiodarone, digoxin, and Lopressor. Not a candidate for Xarelto at this time because of the thrombocytopenia. MMODL / IJN: [id number] /
[2022-04-11 21:27] LABS: Glucose,Whole Blood 157 mg/dL (70-110)
--- NOTE | 2022-04-11 21:33 | P.PN ---
Subjective Progress Note Date: 04/11/22 Principal diagnosis: UTI and bacteremia Patient is a 71-year-old female with a past medical history difficult for atrial fibrillation flutter hypertension hyperlipidemia hypothyroidism right breast cancer electively admitted to the hospital more than 2 weeks ago 022 for T10 to lumbar spine revision decompression and posterior lateral interbody fusion, patient did have a episode of hypotension and elevated white count requiring admission to the ICU patient did have a positive UA and gram- negative bacteremia and is scheduled for exploration of the thoracolumbar incision completed on 03/09/2022 with apparently no evidence of any abscess On today's evaluation that is 04/11/2022 the patient continues to be afebrile , the patient is breathing comfortably on 2 L nasal cannula, the patient denies any chest pain shortness of breath , the patient did have occasional dry cough, the patient did have nausea but no vomiting did have NG and no diarrhea Objective - Vital Signs Vital signs: Vital Signs Temp 97.5 F L 04/11/22 12:00 Pulse 105 H 04/11/22 12:00 Resp 15 04/11/22 12:00 BP 108/64 04/11/22 12:00 Pulse Ox 100 04/11/22 12:00 FiO2 2 04/04/22 05:29 Intake & Output 04/10/22 04/11/22 04/11/22 18:59 06:59 18:59 Intake Total 1300 990 440 Output Total 433 470 165 Balance 867 520 275 Weight 127.777 kg Intake: IV 850 700 250 Piperacillin-Tazobactam 3 200 100 .375 gm In Sodium Chloride 0.9% 100 ml @ 25 mls/hr IVPB Q8HR [facility] Rx# :[id number] Sodium Chloride 0.9% 1, 650 600 250 000 ml @ 50 mls/hr IV . Q20H [facility] Rx#:[id number] Intake, IV Titration 450 Amount Amiodarone 450 mg In 250 Dextrose 5% in Water 250 ml @ 0.5 MG/MIN 16.667 mls/hr IV .Q15H [facility] Rx#: [id number] Anidulafungin 100 mg In 100 Sodium Chloride 0.9% 100 ml @ 84 mls/hr IVPB DAILY [facility] Rx#:[id number] Potassium Chloride 20 meq 100 In Water For Injection 1 100ml.bag @ 50 mls/hr IVPB Q2H [facility] Rx#: [id number] Tube Feeding 200 130 Other 90 60 Output: Urine 430 470 165 Stool 3 Other: Voiding Method Indwelling Catheter Indwelling Catheter Indwelling Catheter # Bowel Movements 1 ABP, PAP, CO, CI - Last Documented Arterial Blood Pressure 158/70 - Exam GENERAL DESCRIPTION: An elderly female lying in bed in no distress RESPIRATORY SYSTEM: Unlabored breathing , decreased breath sounds at bases HEART: S1 S2 regular rate and rhythm , ABDOMEN: Soft , no tenderness Lower lumbar spine incision site is currently dressed EXTREMITIES: Diffuse swelling bilateral lower extremity - Labs CBC & Chem 7: 04/11/22 06:10 04/11/22 06:10 Labs: Abnormal Lab Results - Last 24 Hours (Table) 04/10/22 04/10/22 04/10/22 Range/Units 16:35 18:47 20:13 WBC 13.4 H (3.8-10.6) k/uL RBC 2.68 L (3.80-5.40) m/uL Hgb 8.4 L (11.4-16.0) gm/dL Hct 24.6 L (34.0-46.0) % RDW 22.1 H (11.5-15.5) % Plt Count 46 L (150-450) k/uL Neutrophils # (Manual) (1.3-7.7) k/uL Myelocytes # (Manual) (0) k/uL Nucleated RBCs (0-0) /100 WBC Sodium (137-145) mmol/L Chloride (98-107) mmol/L BUN (7-17) mg/dL Creatinine (0.52-1.04) mg/dL Glucose (74-99) mg/dL POC Glucose (mg/dL) 130 H 148 H (70-110) mg/dL Calcium (8.4-10.2) mg/dL 04/11/22 04/11/22 04/11/22 Range/Units 06:10 06:10 06:41 WBC 11.2 H (3.8-10.6) k/uL RBC 2.87 L (3.80-5.40) m/uL Hgb 8.9 L (11.4-16.0) gm/dL Hct 26.5 L (34.0-46.0) % RDW 21.3 H (11.5-15.5) % Plt Count 45 L (150-450) k/uL Neutrophils # (Manual) 9.30 H (1.3-7.7) k/uL Myelocytes # (Manual) 0.11 H (0) k/uL Nucleated RBCs 9 H (0-0) /100 WBC Sodium 134 L (137-145) mmol/L Chloride 108 H (98-107) mmol/L BUN 26 H (7-17) mg/dL Creatinine 0.45 L (0.52-1.04) mg/dL Glucose 119 H (74-99) mg/dL POC Glucose (mg/dL) 135 H (70-110) mg/dL Calcium 7.1 L (8.4-10.2) mg/dL 04/11/22 Range/Units 11:28 WBC (3.8-10.6) k/uL RBC (3.80-5.40) m/uL Hgb (11.4-16.0) gm/dL Hct (34.0-46.0) % RDW (11.5-15.5) % Plt Count (150-450) k/uL Neutrophils # (Manual) (1.3-7.7) k/uL Myelocytes # (Manual) (0) k/uL Nucleated RBCs (0-0) /100 WBC Sodium (137-145) mmol/L Chloride (98-107) mmol/L BUN (7-17) mg/dL Creatinine (0.52-1.04) mg/dL Glucose (74-99) mg/dL POC Glucose (mg/dL) 156 H (70-110) mg/dL Calcium (8.4-10.2) mg/dL Microbiology - Last 24 Hours (Table) 04/04/22 11:04 Blood Culture - Final Blood No Growth after 144 hours Assessment and Plan (1) Sepsis Current Visit: Yes Status: Acute Code(s): A41.9 - SEPSIS, UNSPECIFIED ORGANISM SNOMED Code(s): 96466414 Plan: 1-patient with elevated white count and concern for possible maceration of the lower end of the incision cultures obtained per hospitalist which are currently growing enterococcus and Pseudomonas along with anaerobe and Patsy possible colonization however the patient is high risk of infection as per discussion with the spine surgery and has been on suppressive Zosyn. 2-patient with episode of GI bleeding and required admission to the ICU/3 S. both surgery and GI following the patient closely, patient has received multiple blood transfusion and apparently is currently waiting for transfer to tertiary care 3patient with a cath associated UTI urine has been positive for Patsy albicans, patient is currently covered with Eraxis white count is down to 11,000 Time with Patient: Less than 30
[2022-04-11] MEDS: MIRTAZAPINE 15 MG TAB PO SCH (21:38)
[2022-04-12] MEDS: ACETAMINOPHEN TAB 500 MG TAB PO SCH ×4 (00:22→21:52)
[2022-04-12] MEDS: PIPERACILLIN-TAZOBACTAM 3.375 GM in SODIUM CHLORIDE 0.9% 100 ML IVPB SCH ×3 (00:23→16:58)
[2022-04-12] MEDS: SODIUM CHLORIDE 0.9% 1,000 ML IV SCH (05:30)
[2022-04-12 06:05] LABS: Anisocytosis Moderate; HCT 27.2 % (34.0-46.0); Hypochromasia Slight; MCH 31.2 pg (25.0-35.0); MCHC 33.1 g/dL (31.0-37.0); MCV 94.2 fL (80.0-100.0); Macrocytosis Slight; Mean Platelet Volume 10.5; Poikilocytosis Moderate; RBC 2.89 m/uL (3.80-5.40); RDW 22.4 % (11.5-15.5)
[2022-04-12 06:15] LABS: Platelet Count 48 k/uL (150-450)
[2022-04-12 06:17] LABS: African American GFR (CKD) >90 (>60 ml/min/1.73 sqM); Anion Gap 2 mmol/L; Blood Urea Nitrogen 22 mg/dL (7-17); Carbon Dioxide 26 mmol/L (22-30); Chloride 109 mmol/L (98-107); Glucose 147 mg/dL (74-99); Non-African American GFR(CKD) >90 (>60 ml/min/1.73 sqM); Potassium 3.3 mmol/L (3.5-5.1); Sodium 137 mmol/L (137-145)
[2022-04-12] MEDS: HYDROcodone/APAP 10-325MG 1 EACH TAB PO PRN ×4 (06:30→21:49)
[2022-04-12] MEDS: MIDODRINE 5 MG TAB PO SCH ×3 (06:31→16:57)
[2022-04-12] MEDS: POTASSIUM BICARBONATE/CIT AC 20 MEQ TABLET.EFF NG-TUBE SCH ×2 (06:31→10:17)
[2022-04-12] MEDS: LEVOTHYROXINE 88 MCG TAB PO SCH (06:31)
[2022-04-12] MEDS: INSULIN ASPART (NovoLOG) 100 UNIT/ML VIAL SQ SCH ×4 (06:58→21:51)
[2022-04-12 06:59] LABS: Glucose,Whole Blood 147 mg/dL (70-110)
[2022-04-12 07:26] LABS: Band Neutrophils % 7 %; Lymphocytes # (M) 0.82 k/uL (1.0-4.8); Monocytes # (M) 0.31 k/uL (0-1.0); Myelocytes % 1 %; Neutrophils % (M) 82 %; Nucleated Red Blood Cells 5 /100 WBC (0-0); Total Cells Counted 200; WBC 10.2 k/uL (3.8-10.6)
[2022-04-12 07:37] LABS: Polychromasia Present
[2022-04-12 07:38] LABS: Basophilic Stippling Present
--- NOTE | 2022-04-12 07:39 | XR ---
EXAMINATION TYPE: XR chest 1V portable DATE OF EXAM: 04/12/2022 COMPARISON: 04/09/2022 INDICATION: Confirmation of NG tube placement TECHNIQUE: Single frontal view of the chest is obtained. FINDINGS: The heart size is normal. The pulmonary vasculature is normal. Mild infiltrate is along the right diaphragm. There is elevation of the right diaphragm. Minimal left pleural effusion is not excluded. Nasogastric tube transverses the thorax, distal tip is out of the field of view. IMPRESSION: 1. Nasogastric tube transverses the thorax with distal tip out of the field of view. 2. Mild developing plate atelectasis at the right diaphragm.
--- NOTE | 2022-04-12 08:12 | P.PN ---
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 Patient is resting in bed. NG tube present. Surgical dressing has been changed this morning. Patient remains very lethargic and has generalized weakness. She was unable to perform any bed exercises or follow commands. Patient is being transferred to tertiary hospital when bed available. She has been afebrile and denies nausea/vomiting or chest pain. Objective - Vital Signs Vital signs: Vital Signs Temp 97.5 F L 04/12/22 04:00 Pulse 116 H 04/12/22 07:00 Resp 18 04/12/22 07:00 BP 92/54 04/12/22 07:00 Pulse Ox 97 04/12/22 07:00 FiO2 2 04/04/22 05:29 Intake & Output 04/11/22 04/12/22 04/12/22 18:59 06:59 18:59 Intake Total 1200 1380 50 Output Total 830 730 50 Balance 370 650 0 Weight 127.777 kg Intake: IV 800 650 50 Anidulafungin 100 mg In 100 Sodium Chloride 0.9% 100 ml @ 84 mls/hr IVPB DAILY [facility] Rx#:[id number] Piperacillin-Tazobactam 3 100 100 .375 gm In Sodium Chloride 0.9% 100 ml @ 25 mls/hr IVPB Q8HR [facility] Rx# :[id number] Sodium Chloride 0.9% 1, 600 550 50 000 ml @ 50 mls/hr IV . Q20H [facility] Rx#:[id number] Oral 360 Tube Feeding 310 310 Other 90 60 Output: Urine 430 330 50 Stool 400 400 Other: Voiding Method Indwelling Catheter Indwelling Catheter ABP, PAP, CO, CI - Last Documented Arterial Blood Pressure 158/70 - Exam Surgical dressing CDI, changed this morning. Sensation is present in bilateral upper extremities and lower extremities. It is equal and bilaterally intact. Patient does have good range of motion in bilateral upper and lower extremities with assistance. Patient does have limited range of motion in right hip flexion/extension and right knee flexion/extension bilaterally due to weakness/pain. 4-/5 in all major motor groups in bilateral upper extremities. 3-/5 in all major motor bilateral lower extremities. Radial pulse intact, 2+ bilaterally. Cap refill under 3 seconds in digits of upper extremities. Negative Homans bilaterally. Negative Susan bilaterally. Negative clonus bilaterally. - Labs CBC & Chem 7: 04/12/22 05:56 04/12/22 05:56 Labs: Abnormal Lab Results - Last 24 Hours (Table) 04/11/22 04/11/22 04/11/22 Range/Units 06:10 11:28 16:29 WBC 11.2 H (3.8-10.6) k/uL RBC (3.80-5.40) m/uL Hgb (11.4-16.0) gm/dL Hct (34.0-46.0) % RDW (11.5-15.5) % Plt Count (150-450) k/uL Neutrophils # (Manual) 9.30 H (1.3-7.7) k/uL Lymphocytes # (Manual) (1.0-4.8) k/uL Myelocytes # (Manual) 0.11 H (0) k/uL Nucleated RBCs 9 H (0-0) /100 WBC Potassium (3.5-5.1) mmol/L Chloride (98-107) mmol/L BUN (7-17) mg/dL Creatinine (0.52-1.04) mg/dL Glucose (74-99) mg/dL POC Glucose (mg/dL) 156 H 174 H (70-110) mg/dL Calcium (8.4-10.2) mg/dL 04/11/22 04/11/22 04/12/22 Range/Units 20:08 21:25 05:56 WBC (3.8-10.6) k/uL RBC 2.89 L (3.80-5.40) m/uL Hgb 9.0 L (11.4-16.0) gm/dL Hct 27.2 L (34.0-46.0) % RDW 22.4 H (11.5-15.5) % Plt Count 48 L (150-450) k/uL Neutrophils # (Manual) 9.00 H (1.3-7.7) k/uL Lymphocytes # (Manual) 0.82 L (1.0-4.8) k/uL Myelocytes # (Manual) 0.10 H (0) k/uL Nucleated RBCs 5 H (0-0) /100 WBC Potassium (3.5-5.1) mmol/L Chloride (98-107) mmol/L BUN (7-17) mg/dL Creatinine (0.52-1.04) mg/dL Glucose (74-99) mg/dL POC Glucose (mg/dL) 167 H 157 H (70-110) mg/dL Calcium (8.4-10.2) mg/dL 04/12/22 04/12/22 Range/Units 05:56 06:57 WBC (3.8-10.6) k/uL RBC (3.80-5.40) m/uL Hgb (11.4-16.0) gm/dL Hct (34.0-46.0) % RDW (11.5-15.5) % Plt Count (150-450) k/uL Neutrophils # (Manual) (1.3-7.7) k/uL Lymphocytes # (Manual) (1.0-4.8) k/uL Myelocytes # (Manual) (0) k/uL Nucleated RBCs (0-0) /100 WBC Potassium 3.3 L (3.5-5.1) mmol/L Chloride 109 H (98-107) mmol/L BUN 22 H (7-17) mg/dL Creatinine 0.36 L (0.52-1.04) mg/dL Glucose 147 H (74-99) mg/dL POC Glucose (mg/dL) 147 H (70-110) mg/dL Calcium 7.0 L (8.4-10.2) mg/dL Assessment and Plan Assessment: Lumbar spondylosis; adjacent segment disease status post L2-L4 posterior fusion with proximal junctional failure; neurogenic claudication - status post day 47: [id number] decompression and fusion with washout and revision dural repair -UGI and LGI bleed, requiring transfusions -ABLA expected outcome of surgery as well as secondary to UGI bleed. Status post 12 units PRBC and 2 pack platelets -bilateral lower extremity weakness, status post multiple controlled falls in- house -Enterobacter sepsis, UTI -status post cardiac arrest Plan: -Appreciate bi consultant and team management PCC and medicine -Appreciate cardiothoracic, Gen. surgery, nephrology, ID evaluations -Continue Activity: as medically tolerated -PT / OT DAILY work on increased strength in LE quads, hammys, etc for standing -Cont Abx for duration of stay -Pain control: Adequate today (Cont with percocet. NO more oxy IR, or dilaudid at this time. Watch pressures and VS due to her bleed. -Meplex pads on sacral region with barrier cream. Cont turn. Sit at different angles. -Meds: reviewed -Trend labs, trend SED and CRP for markers -Transfusions to vitals -GI ppx: senna, Miralax -Continue Warren changed per protocol -Cont with FBS -DVT PPX: Mechanical only -Hygiene: Maintain dressing clean and dry. Meticulous cleaning after BMs away from incision site patient has had several instances on the floor where she was covered and bowel movement as well as urine up to her shoulders on her back. The wound needs to be kept meticulously clean. -Encourage IS 10x/hr -General surgery is requesting transfer for GI coverage due to her ongoing GI bleed.
[2022-04-12] MEDS ORDERED: DIGOXIN 250 MCG TAB PO SCH (09:00)
[2022-04-12] MEDS: GABAPENTIN 400 MG CAP PO SCH ×3 (10:17→21:50)
[2022-04-12] MEDS: MAGNESIUM OXIDE 400 MG TAB PO SCH (10:17)
[2022-04-12] MEDS: PANTOPRAZOLE 40 MG/10 ML VIAL IVP SCH ×2 (10:17→21:52)
[2022-04-12] MEDS: DULoxetine HCL 60 MG CAPSULE.DR PO SCH (10:17)
[2022-04-12] MEDS: LACTULOSE 20 GM/30 ML CUP PO SCH ×2 (10:17→21:49)
[2022-04-12] MEDS: SODIUM BICARBONATE TAB 650 MG TAB PO SCH ×2 (10:17→21:51)
[2022-04-12] MEDS: AMIODARONE 200 MG TAB PO SCH (10:17)
[2022-04-12] MEDS: MAG HYDROX/AL HYDROX/SIMETH 30 ML, diphenhydrAMINE ELIXIR 75 MG, LIDOCAINE VISCOUS 2% 3... PO SCH ×9 (10:18→21:53)
[2022-04-12] MEDS: ANIDULAFUNGIN 100 MG in SODIUM CHLORIDE 0.9% 100 ML IVPB SCH (10:18)
[2022-04-12] MEDS: DIGOXIN 250 MCG TAB PO SCH (10:19)
[2022-04-12] MEDS: ATORVASTATIN 20 MG TAB PO SCH (10:20)
[2022-04-12 11:34] LABS: Glucose,Whole Blood 170 mg/dL (70-110)
[2022-04-12] MEDS: METOPROLOL TARTRATE 50 MG TAB PO SCH ×2 (11:42→21:51)
--- NOTE | 2022-04-12 12:54 | P.PN ---
Subjective Progress Note Date: 04/12/22 Principal diagnosis: status post lumbar decompression/fusion Is evaluation of 02/25/2022, the patient is being seen for a follow-up in the intensive care unit. The patient is post laminectomy and fusion/decompression of the spine and this was done on multiple levels. The patient overnight was kept on a mechanical ventilator. This morning, the patient is on propofol which is running at 35 mcg/kg/m. The patient is well sedated and the patient is quite sick sinus with a mechanical ventilator. The patient is requiring no pressors. The patient on normal saline in the at the rate of 50 mL an hour. The patient is on a mechanical ventilator on assist control mode at the rate of 18, tidal volume of 450, FiO2 of 40% with a PEEP of 5. The blood gas from today showed a pH of 7.41 with a pCO2 of 35 and pO2 of 138. Chest x-ray shows smaller lung volumes, some mild elevation of the right hemidiaphragm. ET tube is sitting just at the level of the aortic knob. No evidence of any pneumothorax. No airspace disease or consolidations. The patient also had a CT angiogram that showed no evidence of any pulmonary embolism. That showed atelectatic change in lung bases and various up other lung segments. No effusion. No lung collapse. CAT scan of the lumbosacral spine was also completed. The surgical one-sided dry clean and intact. The Hemovac output is bloody and its minimal at this point in time. The patient is afebrile. The patient is in atrial fibrillation. Rate is controlled. The patient is receiving Dilaudid for pain control.Blood work from today shows a white cell count of 14.7 with a hemoglobin of 10.1 and a platelet count of 232. The patient also has a sodium level of 135, potassium level of 4.4, chloride is 106 with a bicarb of 23 and a BUN of 15 and a creatinine of 0.5. On 04/09/2022, the patient is in the intensive care area that she is having ongoing issues with GI bleeding. Hemoglobin has been fluctuating. I have discussed this issue with the general surgeon on multiple occasions. It was thought that the stool was brown based on the surgeon's evaluation. Nevertheless, this morning, hemoglobin drop down to 4.9 and I witnessed a large quantity of maroon stool and the patient's bed in the morning evaluation. Furthermore, the blood work from today showed a hemoglobin of 4.9 and the patient is obviously having ongoing issues with GI bleeding. She remains on IV Protonix. GI surgeries on the case and he'll remains aware of those changes. Her cardiac rhythm is irregular consistent with age of fibrillation/flutter. No hematemesis. No abdominal pain. Hemodynamically stable despite a significant drop in hemoglobin down to 4.9. The rest of the blood work shows a sodium level of 131, potassium level is at 3.3, BUN is 35 with a creatinine of 0.54. The patient remains on the same antibiotic coverage. The patient remains on a combination of Zosyn and Eraxis. The patient otherwise is still critical and intensive care unit and the activation for now remains episodes of atrial fibrillation fluctuating hemoglobin. Note that the patient also had an issue with itchy fibrillation with rapid ventricular response yesterday. Based on that, the patient was loaded with amiodarone and the patient continues to be on amiodarone at a dose of 0.5 mg/m. Heart rate under better control for now. Reevaluated today on 04/10/2022, patient remains in the ICU, being followed by surgery for her GI bleeding, received a total of 12 units of packed RBCs since admission, and 2 units of platelets. An hemoglobin today is 9.2. Apparently the patient continues to have intermittent episodes of maroon colored stools, and surgery on the case is recommending transfer to a tertiary care institution is there is no GI coverage. Patient is on 4 L nasal cannula, does not seem to be in any distress, however she seems to be generally weak. Her initial back surgery was 02/24, another back surgery was done on 03/09, and EGD was done on 03/09 patient is on amiodarone at 0.5 mg/m, seems to have regular rhythm, she may be in atrial flutter. She is on normal saline at 50 mL per hour. Again plans are in progress to consider transferring the patient to another institution. WBC count today is 13.5 hemoglobin is 9.2. Lites are normal, renal profile is normal Reevaluated today on 04/11/2022, patient is basically about the same, remained generally weak and debilitated. Her hemoglobin is holding, her hemoglobin yesterday was 8.4, is 8.9 today. No further episodes of GI bleeding at present, nonetheless the patient is going to be transferred to [facility] hopefully sometime today, she was accepted, and waiting for a bed to become available. MRI of the brain yesterday showed small vessel ischemic change, otherwise no ac yolanda process noted. Basic metabolic profile today is relatively normal, renal profile is normal. Patient was reevaluated today on 04/12/22, remains in the ICU, waiting for a bed at [facility]. Patient has no further active bleeding, and her hemoglobin is stable at 9 today. IV fluid at 50 mL per hour. Patient is on room air, and she is not in any distress, but she generally weak frail and debilitated. Objective - Vital Signs Vital signs: Vital Signs Temp 98.0 F 04/12/22 08:00 Pulse 117 H 04/12/22 11:00 Resp 22 04/12/22 11:00 BP 104/56 04/12/22 11:00 Pulse Ox 99 04/12/22 11:00 FiO2 2 04/04/22 05:29 Intake & Output 04/11/22 04/12/22 04/12/22 18:59 06:59 18:59 Intake Total 1200 1380 876 Output Total 830 730 205 Balance 370 650 671 Weight 127.777 kg Intake: IV 800 650 450 Anidulafungin 100 mg In 100 100 Sodium Chloride 0.9% 100 ml @ 84 mls/hr IVPB DAILY [facility] Rx#:[id number] Piperacillin-Tazobactam 3 100 100 100 .375 gm In Sodium Chloride 0.9% 100 ml @ 25 mls/hr IVPB Q8HR [facility] Rx# :[id number] Sodium Chloride 0.9% 1, 600 550 250 000 ml @ 50 mls/hr IV . Q20H [facility] Rx#:[id number] Oral 360 236 Tube Feeding 310 310 160 Other 90 60 30 Output: Urine 430 330 205 Stool 400 400 Other: Voiding Method Indwelling Catheter Indwelling Catheter Indwelling Catheter ABP, PAP, CO, CI - Last Documented Arterial Blood Pressure 158/70 - Exam Physical Exam: Revealed a 71-year-old female in no distress. On room air Head: Atraumatic, normocephalic. HEENT:[Neck is supple.] [No neck masses.] [No thyromegaly.] [No JVD.] Triple-l umen catheter noted in the right IJ. Chest: [Clear throughout, no crackles, no rhonchi, no wheezes.] Cardiac Exam: Regular rhythm, normal S1 and S2, no S3 gallop, no murmur.] Abdomen: [Soft, nontender, no megaly, no rebound, no guarding, normal bowel sounds.] Extremities: [No clubbing, no edema, no cyanosis.] Neurological Exam: [No focal neurologic deficit.]alert oriented 3, no gross focal deficits. Psychiatric: Normal mood affect and normal mental status examination. Skin: No rashes. - Labs CBC & Chem 7: 04/12/22 05:56 04/12/22 05:56 Labs: Abnormal Lab Results - Last 24 Hours (Table) 04/11/22 04/11/22 04/11/22 Range/Units 16:29 20:08 21:25 RBC (3.80-5.40) m/uL Hgb (11.4-16.0) gm/dL Hct (34.0-46.0) % RDW (11.5-15.5) % Plt Count (150-450) k/uL Neutrophils # (Manual) (1.3-7.7) k/uL Lymphocytes # (Manual) (1.0-4.8) k/uL Myelocytes # (Manual) (0) k/uL Nucleated RBCs (0-0) /100 WBC Potassium (3.5-5.1) mmol/L Chloride (98-107) mmol/L BUN (7-17) mg/dL Creatinine (0.52-1.04) mg/dL Glucose (74-99) mg/dL POC Glucose (mg/dL) 174 H 167 H 157 H (70-110) mg/dL Calcium (8.4-10.2) mg/dL 04/12/22 04/12/22 04/12/22 Range/Units 05:56 05:56 06:57 RBC 2.89 L (3.80-5.40) m/uL Hgb 9.0 L (11.4-16.0) gm/dL Hct 27.2 L (34.0-46.0) % RDW 22.4 H (11.5-15.5) % Plt Count 48 L (150-450) k/uL Neutrophils # (Manual) 9.00 H (1.3-7.7) k/uL Lymphocytes # (Manual) 0.82 L (1.0-4.8) k/uL Myelocytes # (Manual) 0.10 H (0) k/uL Nucleated RBCs 5 H (0-0) /100 WBC Potassium 3.3 L (3.5-5.1) mmol/L Chloride 109 H (98-107) mmol/L BUN 22 H (7-17) mg/dL Creatinine 0.36 L (0.52-1.04) mg/dL Glucose 147 H (74-99) mg/dL POC Glucose (mg/dL) 147 H (70-110) mg/dL Calcium 7.0 L (8.4-10.2) mg/dL 04/12/22 Range/Units 11:31 RBC (3.80-5.40) m/uL Hgb (11.4-16.0) gm/dL Hct (34.0-46.0) % RDW (11.5-15.5) % Plt Count (150-450) k/uL Neutrophils # (Manual) (1.3-7.7) k/uL Lymphocytes # (Manual) (1.0-4.8) k/uL Myelocytes # (Manual) (0) k/uL Nucleated RBCs (0-0) /100 WBC Potassium (3.5-5.1) mmol/L Chloride (98-107) mmol/L BUN (7-17) mg/dL Creatinine (0.52-1.04) mg/dL Glucose (74-99) mg/dL POC Glucose (mg/dL) 170 H (70-110) mg/dL Calcium (8.4-10.2) mg/dL Assessment and Plan Assessment: Impression: Recurrent GI bleeding, being considered for transfer. Acute Enterobacter urinary tract infection and sepsis with bacteremia secondary to Enterobacter. Remains on antibiotics. As per infectious disease on the case Atrial fibrillation/flutter Leukocytosis. Lumbar decompression/fusion February 05 and on 03/09/22, patient underwent exploration and washout with dural repairs secondary to falls Brief cardiac arrest/Pea in the operating room during her initial surgery. 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 Continue antibiotics. Consider transfer out of the ICU if the transfer process is taking longer Awaiting for bed available to be transferred We'll continue to follow Time with Patient: Less than 30
--- NOTE | 2022-04-12 13:48 | P.PN ---
Subjective Progress Note Date: 04/12/22 Principal diagnosis: anemia Pt reports she is not feeling well today. C/o of RLQ pain that began last night. Also c/o of generalized weakness and malaise. Objective - Vital Signs Vital signs: Vital Signs Temp 98.0 F 04/12/22 08:00 Pulse 117 H 04/12/22 11:00 Resp 22 04/12/22 11:00 BP 104/56 04/12/22 11:00 Pulse Ox 99 04/12/22 11:00 FiO2 2 04/04/22 05:29 Intake & Output 04/11/22 04/12/22 04/12/22 18:59 06:59 18:59 Intake Total 1200 1380 876 Output Total 830 730 205 Balance 370 650 671 Weight 127.777 kg Intake: IV 800 650 450 Anidulafungin 100 mg In 100 100 Sodium Chloride 0.9% 100 ml @ 84 mls/hr IVPB DAILY [facility] Rx#:[id number] Piperacillin-Tazobactam 3 100 100 100 .375 gm In Sodium Chloride 0.9% 100 ml @ 25 mls/hr IVPB Q8HR [facility] Rx# :[id number] Sodium Chloride 0.9% 1, 600 550 250 000 ml @ 50 mls/hr IV . Q20H [facility] Rx#:[id number] Oral 360 236 Tube Feeding 310 310 160 Other 90 60 30 Output: Urine 430 330 205 Stool 400 400 Other: Voiding Method Indwelling Catheter Indwelling Catheter Indwelling Catheter ABP, PAP, CO, CI - Last Documented Arterial Blood Pressure 158/70 - Constitutional General appearance: Present: cooperative, morbidly obese, no acute distress - EENT EENT Comment(s): very dry mouth Eyes: Present: anicteric sclerae, EOMI ENT: Present: hearing grossly normal - Respiratory Respiratory: right: rales, bilateral: CTA - Cardiovascular Rhythm: regular Heart sounds: normal: S1, S2 - Peripheral edema leg Peripheral Edema: bilateral: 3+, Pitting - Gastrointestinal General gastrointestinal: Present: soft, tenderness Localized gastrointestinal: tender: RLQ - Integumentary Integumentary Comment(s): lee - Neurologic Neurologic: Present: CNII-XII intact (grossly) - Musculoskeletal Musculoskeletal: Present: generalized weakness - Psychiatric Psychiatric: Present: A&O x's 3, appropriate affect, intact judgment & insight - Labs CBC & Chem 7: 04/12/22 05:56 04/12/22 05:56 Labs: Abnormal Lab Results - Last 24 Hours (Table) 04/11/22 04/11/22 04/11/22 Range/Units 16:29 20:08 21:25 RBC (3.80-5.40) m/uL Hgb (11.4-16.0) gm/dL Hct (34.0-46.0) % RDW (11.5-15.5) % Plt Count (150-450) k/uL Neutrophils # (Manual) (1.3-7.7) k/uL Lymphocytes # (Manual) (1.0-4.8) k/uL Myelocytes # (Manual) (0) k/uL Nucleated RBCs (0-0) /100 WBC Potassium (3.5-5.1) mmol/L Chloride (98-107) mmol/L BUN (7-17) mg/dL Creatinine (0.52-1.04) mg/dL Glucose (74-99) mg/dL POC Glucose (mg/dL) 174 H 167 H 157 H (70-110) mg/dL Calcium (8.4-10.2) mg/dL 04/12/22 04/12/22 04/12/22 Range/Units 05:56 05:56 06:57 RBC 2.89 L (3.80-5.40) m/uL Hgb 9.0 L (11.4-16.0) gm/dL Hct 27.2 L (34.0-46.0) % RDW 22.4 H (11.5-15.5) % Plt Count 48 L (150-450) k/uL Neutrophils # (Manual) 9.00 H (1.3-7.7) k/uL Lymphocytes # (Manual) 0.82 L (1.0-4.8) k/uL Myelocytes # (Manual) 0.10 H (0) k/uL Nucleated RBCs 5 H (0-0) /100 WBC Potassium 3.3 L (3.5-5.1) mmol/L Chloride 109 H (98-107) mmol/L BUN 22 H (7-17) mg/dL Creatinine 0.36 L (0.52-1.04) mg/dL Glucose 147 H (74-99) mg/dL POC Glucose (mg/dL) 147 H (70-110) mg/dL Calcium 7.0 L (8.4-10.2) mg/dL 04/12/22 Range/Units 11:31 RBC (3.80-5.40) m/uL Hgb (11.4-16.0) gm/dL Hct (34.0-46.0) % RDW (11.5-15.5) % Plt Count (150-450) k/uL Neutrophils # (Manual) (1.3-7.7) k/uL Lymphocytes # (Manual) (1.0-4.8) k/uL Myelocytes # (Manual) (0) k/uL Nucleated RBCs (0-0) /100 WBC Potassium (3.5-5.1) mmol/L Chloride (98-107) mmol/L BUN (7-17) mg/dL Creatinine (0.52-1.04) mg/dL Glucose (74-99) mg/dL POC Glucose (mg/dL) 170 H (70-110) mg/dL Calcium (8.4-10.2) mg/dL - Imaging and Cardiology Chest x-ray: report reviewed Abdominal x-ray: report reviewed Assessment and Plan (1) Anemia Current Visit: Yes Status: Acute Priority: High Code(s): D64.9 - ANEMIA, UNSPECIFIED SNOMED Code(s): 341128995 (2) GI bleed Current Visit: Yes Status: Acute Priority: High Code(s): K92.2 - GASTROINTESTINAL HEMORRHAGE, UNSPECIFIED SNOMED Code(s): 37439020 Plan: Anemia: -On 04/09, received 3 units PRBCs and 1 unit platelets, due to hemoglobin 4.2, highly [place]t [id number]. Her Hgb would have been anticipated to increase to 7.2 with the 3 units, it was 9.2 on 04/10/21. Hemoglobin stable 9.0 today (8.9 yesterday) [place] [address] today. Hold anticoagulation/DVT prophylaxis for Plt <50,000. Use SCDs for DVT prophylaxis. Will continue to monitor blood counts, transfuse for hgb <7, and platelets less than 10,000, or if symptomatic -Iron studies from 03/08 showed iron 40, TBIC 270, Iron sat 14.66%, and ferritin 655, most suggestive of iron deficiency when taken into consideration that pt likely was s/p 2-3 units of blood when those labs were drawn. Will hold iron for the time being due to acute infectious processes, will consider when conditions improve. -No evidence of DIC. She did receive Vitamin K, INR was WNL yesterday. -EGD 03/17/22 mild gastritis, esophagitis. Barium swallow was pending, but was not completed -Plan to transfer to [facility] for GI f/u
--- NOTE | 2022-04-12 14:35 | P.PN ---
Subjective Progress Note Date: 04/12/22 CHIEF COMPLAINT: Spinal surgery HISTORY OF PRESENT ILLNESS: Surgical service following in regards to GI bleed. Patient is in the ICU. She has a fecal management system in place. Stool is brown in color. No further blood reported per nursing staff. Patient is complaining of right upper quadrant abdominal pain. She does have NG tube in place for tube feeds. Patient is awaiting transfer to [facility]. Swallowing completed with no evidence of aspiration. They're recommending thin liquids. Afebrile. Mildly tachycardic WBC 10.2 Hgb 9.0 and stable platelets 48 sodium 137 potassium 3.3 and was replaced. creatinine 0.36 abdominal x-ray NG distal tip and side-port not definitively visualized. PHYSICAL EXAM: VITAL SIGNS: Reviewed. GENERAL: Well-developed in no acute distress. HEENT: No sclera icterus. Extraocular movements grossly intact. Moist buccal mucosa. Head is atraumatic, normocephalic. ABDOMEN: Soft. Obese. Nondistended. Nontender NEUROLOGIC: Sleeping comfortably ASSESSMENT: 1. Acute GI bleed 2. Posterior anal fissure with bleeding 3. Fecal impaction and constipation 4. Lumbar decompression/fusion and then with washout and dural repair 5. Cardiac arrest 6. EGD on 03/19/2022 that showed mild gastritis and esophagitis no active bleeding PLAN: -Continue tube feeds via NG tube -Continue clear liquid diet -Transfer process is in progress to [facility] -Continue to monitor hemoglobin -Continue monitoring for any signs or symptoms of bleeding -Continue PPI -Continue to hold anticoagulation Physician Client Director note has been reviewed by physician. Signing provider agrees with the documented findings, assessment, and plan of care. Objective - Vital Signs Vital signs: Vital Signs Temp 98.0 F 04/12/22 08:00 Pulse 117 H 04/12/22 11:00 Resp 22 04/12/22 11:00 BP 104/56 04/12/22 11:00 Pulse Ox 99 04/12/22 11:00 FiO2 2 04/04/22 05:29 Intake & Output 04/11/22 04/12/22 04/12/22 18:59 06:59 18:59 Intake Total 1200 1380 876 Output Total 830 730 205 Balance 370 650 671 Weight 127.777 kg Intake: IV 800 650 450 Anidulafungin 100 mg In 100 100 Sodium Chloride 0.9% 100 ml @ 84 mls/hr IVPB DAILY [facility] Rx#:[id number] Piperacillin-Tazobactam 3 100 100 100 .375 gm In Sodium Chloride 0.9% 100 ml @ 25 mls/hr IVPB Q8HR [facility] Rx# :[id number] Sodium Chloride 0.9% 1, 600 550 250 000 ml @ 50 mls/hr IV . Q20H [facility] Rx#:[id number] Oral 360 236 Tube Feeding 310 310 160 Other 90 60 30 Output: Urine 430 330 205 Stool 400 400 Other: Voiding Method Indwelling Catheter Indwelling Catheter Indwelling Catheter ABP, PAP, CO, CI - Last Documented Arterial Blood Pressure 158/70 - Labs CBC & Chem 7: 04/12/22 05:56 04/12/22 05:56 Labs: Abnormal Lab Results - Last 24 Hours (Table) 04/11/22 04/11/22 04/11/22 Range/Units 16:29 20:08 21:25 RBC (3.80-5.40) m/uL Hgb (11.4-16.0) gm/dL Hct (34.0-46.0) % RDW (11.5-15.5) % Plt Count (150-450) k/uL Neutrophils # (Manual) (1.3-7.7) k/uL Lymphocytes # (Manual) (1.0-4.8) k/uL Myelocytes # (Manual) (0) k/uL Nucleated RBCs (0-0) /100 WBC Potassium (3.5-5.1) mmol/L Chloride (98-107) mmol/L BUN (7-17) mg/dL Creatinine (0.52-1.04) mg/dL Glucose (74-99) mg/dL POC Glucose (mg/dL) 174 H 167 H 157 H (70-110) mg/dL Calcium (8.4-10.2) mg/dL 04/12/22 04/12/22 04/12/22 Range/Units 05:56 05:56 06:57 RBC 2.89 L (3.80-5.40) m/uL Hgb 9.0 L (11.4-16.0) gm/dL Hct 27.2 L (34.0-46.0) % RDW 22.4 H (11.5-15.5) % Plt Count 48 L (150-450) k/uL Neutrophils # (Manual) 9.00 H (1.3-7.7) k/uL Lymphocytes # (Manual) 0.82 L (1.0-4.8) k/uL Myelocytes # (Manual) 0.10 H (0) k/uL Nucleated RBCs 5 H (0-0) /100 WBC Potassium 3.3 L (3.5-5.1) mmol/L Chloride 109 H (98-107) mmol/L BUN 22 H (7-17) mg/dL Creatinine 0.36 L (0.52-1.04) mg/dL Glucose 147 H (74-99) mg/dL POC Glucose (mg/dL) 147 H (70-110) mg/dL Calcium 7.0 L (8.4-10.2) mg/dL 04/12/22 Range/Units 11:31 RBC (3.80-5.40) m/uL Hgb (11.4-16.0) gm/dL Hct (34.0-46.0) % RDW (11.5-15.5) % Plt Count (150-450) k/uL Neutrophils # (Manual) (1.3-7.7) k/uL Lymphocytes # (Manual) (1.0-4.8) k/uL Myelocytes # (Manual) (0) k/uL Nucleated RBCs (0-0) /100 WBC Potassium (3.5-5.1) mmol/L Chloride (98-107) mmol/L BUN (7-17) mg/dL Creatinine (0.52-1.04) mg/dL Glucose (74-99) mg/dL POC Glucose (mg/dL) 170 H (70-110) mg/dL Calcium (8.4-10.2) mg/dL
--- NOTE | 2022-04-12 15:36 | P.PN ---
Subjective Progress Note Date: 04/12/22 Patient is a 71 yo CF with a hx of A fib s/p ablation, GERD, hypertension, dyslipidemia, and right diaphragmatic paralysis who presented for T10 to Pelvis decompression and fusion with revision. Course complicated by significant blood loss. Patient was on vasopressors, also received TXA gtt. She received 7 L of lactated Ringer's. She received 1 amp of sodium bicarb intaop. She also received albumin. Patient then had a cardiac arrest. During the case she developed A. fib with RVR and then quickly transitioned into bradycardia with a low end-tidal CO2. She received 0.4 of atropine and CPR was started. She received epinephrine 0.5. She achieved ROSC. Total down time was less than 5 minutes. She was extubated on 02/25. She continued to do well but struggled with pain. She was downgraded from ICU on 03/03. On 03/06/22 patient was noted to have a significant drop in hemoglobin from 10.0 down to 7.5 and upon reevaluation on 03/07 was found to have hemoglobin of 5.4, patient required multiple transfusions. She has received a total of 7 units PRBCs and 1 unit of platelets. She underwent a CT abdomen and pelvis and was found to have a large right chest hematoma dilated small bowel concerning for ileus. Patient was evaluated by cardiothoracic surgery and they recommended conservative management. On 03/07, patient was noted to be hypotensive with elevated WBC count of 42.3, with worsening renal function and hyperkalamia. Patient was treated with NS bolus, IV insulin/D50, Albuterol and sodium bicarbonate. She was transferred back to the ICU for septic shock requiring Levophed. Patient was started on Vancomycin and Cefepime. Blood and urine cultures were obtained and positive for Enterobacter. Infectious disease was consulted and patient was continued on Cefepime for treatment of Enterobacter UTI with secondary bacteremia and Vancomycin was discontinued. Patient was later weaned off of vasopressors and again transferred out of the ICU. Patient was started on Lasix for treatment of acute on chronic systolic heart failure with EF of 35-40%. Patient continued on Protonix for GI prophylaxis, amiodarone and metoprolol for atrial fibrillation with RVR sodium bicarb for treatment of metabolic acidosis. Pt's Xarelto remains hold at this time. Patient was evaluated by PMR and is currently not a candidate for inpatient rehab. She has been cleared by orthopedic surgery to start working with physical therapy. On 03/26/22 patient was again found to have elevating leukocytosis and repeat Wound cultures were obtained. Wound cultures were positive for pseudomonas aeruginosa, enterococcus fasciculus, and Patsy albicans. Patient to continue with Zosyn per culture and sensitivity report and as recommended by infectious disease as this may be contamination/colonization however patient is a high risk of infection so we will continue with empiric antibiotic therapy. Overnight on 03/28/22 patient again developed episodes of melena and at that time Dr. Arce, general surgeon was re-consulted. CT abdomen and pelvis revealing bilateral hydronephrosis unable to rule out obstructive etiology, concerns for fecal impaction, and persistent previously known right anterior chest wall hematoma. General surgery following and reevaluated patient secondary to concerns of fecal impaction and started patient on lactulose. Wiley catheter was inserted secondary to bi lateral hydronephrosis and patient was evaluated by urologist recommending continuation of Wiley catheter as bilateral hydronephrosis is believed to be resulting secondary to urinary retention. On the evening of 04/03/21 patient with continued atrial tachycardia and hypotension and unable to take metoprolol secondary to low blood pressures. Patient had episode of hematochezia along with large blood clot and was transferred back to the ICU. Had bedside manual disimpaction with general surgery. Also has a posterior anal fissure could likely because of current bleeding. On a bowel regimen. Hemoglobin continues to down trend. Requiring further blood transfusions. Hemoglobin currently stable. Hemodynamically stable. Patient pending transfer for GI at [facility]. Subjective: Pt reports feeling okay today, no new copmlaints. Has abd distention, but tolerating diet and has liquid stools through FMS. Feeds are supplementing to goal through NGT. Hgb stable. HRs still in 110s. BPs stable. Pending transfer to [place] for GIB workup. Vitals Signs Reviewed. Gen: awake, alert HEENT: normocephalic, atraumatic, good hearing acuity, moist mucous membranes Resp: good air exchange, breathing comfortably with no accessory muscle use CVS: good distal perfusion x 4, tachycardic GI: soft, NTTP, distended, +FMS : no SPT, no CVAT, wiley catheter is present MSK: no pitting edema, no clubbing Neuro: non-focal, moving all extremities Psych: cooperative, euthymic mood Assessment and Plan: GI bleeding, likely lower Acute abdominal pain - resolved Fecal impaction, status post manual disimpaction Posterior Anal fissure -CT abdomen and pelvis concerning for possible fecal impaction. -Gen. surgery was consulted for reevaluation -Continue with Protonix 40 mg IVP twice daily -Hemoglobint stable -Requiring more blood transfusions -On bowel regimen -Patient to be transferred for GI Atrial tachycardia/fibrillation with RVR Hypotension -not on pressors Status post Cardiac arrest with ROSC Acute on chronic systolic heart failure -Cardiology following -Continuous telemetry monitoring. -Oral amiodarone and digoxin, and metoprolol -Diuretics held -also on Midodrine -Holding anticoagulation due to ongoing GI bleed Poor nutritional intake Severe protein calorie malnutrition Anasarca -Patient started on mirtazapine -Patient getting tube feeds Hypokalemia- resolved Septic shock - resolved Enterobacter cloacae UTI with secondary bacteremia - resolved Lactic acidosis Leukocytosis -resolved Patsy UTI -Infectious disease following and managing antibiotic course at this time. Patient remains on Zosyn -ID has patient on Eraxis Bilateral hydronephrosis, likely secondary to urinary retention -CT abdomen and pelvis revealing bilateral hydronephrosis unable to rule out obstructive etiology. -Renal function stable -Urology following, recommending continuation of Wiley catheter Prerenal azotemia, improving Hyponatremiaresolving Hyperkalemiaresolved Hypokalemiaresolved Metabolic acidosis, resolved -Continue sodium bicarb 650 mg twice a day -Nephrology following. Prediabetes with hyperglycemia, now hypoglycemia -Likely steroid induced -A1c is 6 -Continue with sliding scale Right breast hematoma - stable T10 to pelvis decompression with fusion Post-op pain -Management per primary admitting Orthopedic surgery team including DVT prophyl axis, pain management, wound/dressing care, weightbearing, and PT/OT . -PT/OT following. Right diaphragmatic paralysis -No interventions for her pulmonology Hyperlipidemia -atorvastatin. History of hypertension -Currently On Midodrine for episodes of hypotension Transaminitis -Likely ischemic hepatitis. -Resolved Thank you for allowing us to participate in the care of this pleasant patient. Do not hesitate to contact us with questions. Someone can be reached from the [facility] hospitalist group all hours of the day at [phone] or via [employer]. Objective - Vital Signs Vital signs: Vital Signs Temp 98.0 F 04/12/22 08:00 Pulse 117 H 04/12/22 11:00 Resp 22 04/12/22 11:00 BP 104/56 04/12/22 11:00 Pulse Ox 99 04/12/22 11:00 FiO2 2 04/04/22 05:29 Intake & Output 04/11/22 04/12/22 04/12/22 18:59 06:59 18:59 Intake Total 1200 1380 876 Output Total 830 730 205 Balance 370 650 671 Weight 127.777 kg Intake: IV 800 650 450 Anidulafungin 100 mg In 100 100 Sodium Chloride 0.9% 100 ml @ 84 mls/hr IVPB DAILY [facility] Rx#:[id number] Piperacillin-Tazobactam 3 100 100 100 .375 gm In Sodium Chloride 0.9% 100 ml @ 25 mls/hr IVPB Q8HR [facility] Rx# :[id number] Sodium Chloride 0.9% 1, 600 550 250 000 ml @ 50 mls/hr IV . Q20H [facility] Rx#:[id number] Oral 360 236 Tube Feeding 310 310 160 Other 90 60 30 Output: Urine 430 330 205 Stool 400 400 Other: Voiding Method Indwelling Catheter Indwelling Catheter Indwelling Catheter ABP, PAP, CO, CI - Last Documented Arterial Blood Pressure 158/70 - Labs CBC & Chem 7: 04/12/22 05:56 04/12/22 05:56 Labs: Abnormal Lab Results - Last 24 Hours (Table) 04/11/22 04/11/22 04/11/22 Range/Units 16:29 20:08 21:25 RBC (3.80-5.40) m/uL Hgb (11.4-16.0) gm/dL Hct (34.0-46.0) % RDW (11.5-15.5) % Plt Count (150-450) k/uL Neutrophils # (Manual) (1.3-7.7) k/uL Lymphocytes # (Manual) (1.0-4.8) k/uL Myelocytes # (Manual) (0) k/uL Nucleated RBCs (0-0) /100 WBC Potassium (3.5-5.1) mmol/L Chloride (98-107) mmol/L BUN (7-17) mg/dL Creatinine (0.52-1.04) mg/dL Glucose (74-99) mg/dL POC Glucose (mg/dL) 174 H 167 H 157 H (70-110) mg/dL Calcium (8.4-10.2) mg/dL 04/12/22 04/12/22 04/12/22 Range/Units 05:56 05:56 06:57 RBC 2.89 L (3.80-5.40) m/uL Hgb 9.0 L (11.4-16.0) gm/dL Hct 27.2 L (34.0-46.0) % RDW 22.4 H (11.5-15.5) % Plt Count 48 L (150-450) k/uL Neutrophils # (Manual) 9.00 H (1.3-7.7) k/uL Lymphocytes # (Manual) 0.82 L (1.0-4.8) k/uL Myelocytes # (Manual) 0.10 H (0) k/uL Nucleated RBCs 5 H (0-0) /100 WBC Potassium 3.3 L (3.5-5.1) mmol/L Chloride 109 H (98-107) mmol/L BUN 22 H (7-17) mg/dL Creatinine 0.36 L (0.52-1.04) mg/dL Glucose 147 H (74-99) mg/dL POC Glucose (mg/dL) 147 H (70-110) mg/dL Calcium 7.0 L (8.4-10.2) mg/dL 04/12/22 Range/Units 11:31 RBC (3.80-5.40) m/uL Hgb (11.4-16.0) gm/dL Hct (34.0-46.0) % RDW (11.5-15.5) % Plt Count (150-450) k/uL Neutrophils # (Manual) (1.3-7.7) k/uL Lymphocytes # (Manual) (1.0-4.8) k/uL Myelocytes # (Manual) (0) k/uL Nucleated RBCs (0-0) /100 WBC Potassium (3.5-5.1) mmol/L Chloride (98-107) mmol/L BUN (7-17) mg/dL Creatinine (0.52-1.04) mg/dL Glucose (74-99) mg/dL POC Glucose (mg/dL) 170 H (70-110) mg/dL Calcium (8.4-10.2) mg/dL
[2022-04-12 16:42] LABS: Glucose,Whole Blood 203 mg/dL (70-110)
--- NOTE | 2022-04-12 19:06 | P.PN ---
Subjective Progress Note Date: 04/12/22 Principal diagnosis: UTI and bacteremia Patient is a 71-year-old female with a past medical history difficult for atrial fibrillation flutter hypertension hyperlipidemia hypothyroidism right breast cancer electively admitted to the hospital more than 2 weeks ago 022 for T10 to lumbar spine revision decompression and posterior lateral interbody fusion, patient did have a episode of hypotension and elevated white count requiring admission to the ICU patient did have a positive UA and gram- negative bacteremia and is scheduled for exploration of the thoracolumbar incision completed on 03/09/2022 with apparently no evidence of any abscess On today's evaluation that is 04/12/2022 the patient remains to be afebrile , the patient is breathing comfortably on 2 L nasal cannula, the patient denies any chest pain shortness of breath , the patient did have occasional cough but no sputum production, the patient did have nausea but no vomiting did have NG and denies having any diarrhea or any worsening lower back pain Objective - Vital Signs Vital signs: Vital Signs Temp 98.0 F 04/12/22 08:00 Pulse 117 H 04/12/22 11:00 Resp 22 04/12/22 11:00 BP 104/56 04/12/22 11:00 Pulse Ox 99 04/12/22 11:00 FiO2 2 04/04/22 05:29 Intake & Output 04/11/22 04/12/22 04/12/22 18:59 06:59 18:59 Intake Total 1200 1380 876 Output Total 830 730 205 Balance 370 650 671 Weight 127.777 kg Intake: IV 800 650 450 Anidulafungin 100 mg In 100 100 Sodium Chloride 0.9% 100 ml @ 84 mls/hr IVPB DAILY [facility] Rx#:[id number] Piperacillin-Tazobactam 3 100 100 100 .375 gm In Sodium Chloride 0.9% 100 ml @ 25 mls/hr IVPB Q8HR [facility] Rx# :[id number] Sodium Chloride 0.9% 1, 600 550 250 000 ml @ 50 mls/hr IV . Q20H [facility] Rx#:[id number] Oral 360 236 Tube Feeding 310 310 160 Other 90 60 30 Output: Urine 430 330 205 Stool 400 400 Other: Voiding Method Indwelling Catheter Indwelling Catheter Indwelling Catheter ABP, PAP, CO, CI - Last Documented Arterial Blood Pressure 158/70 - Exam GENERAL DESCRIPTION: An elderly female lying in bed in no distress RESPIRATORY SYSTEM: Unlabored breathing , decreased breath sounds at bases HEART: S1 S2 regular rate and rhythm , ABDOMEN: Soft , no tenderness Lower lumbar spine incision site is currently dressed EXTREMITIES: Diffuse swelling bilateral lower extremity - Labs CBC & Chem 7: 04/12/22 05:56 04/12/22 05:56 Labs: Abnormal Lab Results - Last 24 Hours (Table) 04/11/22 04/11/22 04/11/22 Range/Units 16:29 20:08 21:25 RBC (3.80-5.40) m/uL Hgb (11.4-16.0) gm/dL Hct (34.0-46.0) % RDW (11.5-15.5) % Plt Count (150-450) k/uL Neutrophils # (Manual) (1.3-7.7) k/uL Lymphocytes # (Manual) (1.0-4.8) k/uL Myelocytes # (Manual) (0) k/uL Nucleated RBCs (0-0) /100 WBC Potassium (3.5-5.1) mmol/L Chloride (98-107) mmol/L BUN (7-17) mg/dL Creatinine (0.52-1.04) mg/dL Glucose (74-99) mg/dL POC Glucose (mg/dL) 174 H 167 H 157 H (70-110) mg/dL Calcium (8.4-10.2) mg/dL 04/12/22 04/12/22 04/12/22 Range/Units 05:56 05:56 06:57 RBC 2.89 L (3.80-5.40) m/uL Hgb 9.0 L (11.4-16.0) gm/dL Hct 27.2 L (34.0-46.0) % RDW 22.4 H (11.5-15.5) % Plt Count 48 L (150-450) k/uL Neutrophils # (Manual) 9.00 H (1.3-7.7) k/uL Lymphocytes # (Manual) 0.82 L (1.0-4.8) k/uL Myelocytes # (Manual) 0.10 H (0) k/uL Nucleated RBCs 5 H (0-0) /100 WBC Potassium 3.3 L (3.5-5.1) mmol/L Chloride 109 H (98-107) mmol/L BUN 22 H (7-17) mg/dL Creatinine 0.36 L (0.52-1.04) mg/dL Glucose 147 H (74-99) mg/dL POC Glucose (mg/dL) 147 H (70-110) mg/dL Calcium 7.0 L (8.4-10.2) mg/dL 04/12/22 Range/Units 11:31 RBC (3.80-5.40) m/uL Hgb (11.4-16.0) gm/dL Hct (34.0-46.0) % RDW (11.5-15.5) % Plt Count (150-450) k/uL Neutrophils # (Manual) (1.3-7.7) k/uL Lymphocytes # (Manual) (1.0-4.8) k/uL Myelocytes # (Manual) (0) k/uL Nucleated RBCs (0-0) /100 WBC Potassium (3.5-5.1) mmol/L Chloride (98-107) mmol/L BUN (7-17) mg/dL Creatinine (0.52-1.04) mg/dL Glucose (74-99) mg/dL POC Glucose (mg/dL) 170 H (70-110) mg/dL Calcium (8.4-10.2) mg/dL Assessment and Plan (1) Sepsis Current Visit: Yes Status: Acute Code(s): A41.9 - SEPSIS, UNSPECIFIED ORGANISM SNOMED Code(s): 29604896 Plan: 1-patient with elevated white count and concern for possible maceration of the lower end of the incision cultures obtained per hospitalist which are currently growing enterococcus and Pseudomonas along with anaerobe and Patsy possible colonization however the patient is high risk of infection as per discussion with the spine surgery and has been on suppressive Zosyn. 2-patient with episode of GI bleeding and required admission to the ICU/3 S. both surgery and GI following the patient closely, patient has received multiple blood transfusion and apparently is currently waiting for transfer to tertiary care 3patient with a cath associated UTI urine has been positive for Patsy albicans, patient to continue with Eraxis , the patient white count has normalized Time with Patient: Less than 30
--- NOTE | 2022-04-12 20:43 | PN ---
PROGRESS NOTE SUBJECTIVE: A 71-year-old lady who is admitted to ICU with GI bleed. She is currently awaiting transfer to another facility for GI workup. Hemoglobin has remained stable. She is still remains in atrial fibrillation with poorly controlled ventricular rate. I will increase the dose of metoprolol to 100 b.i.d., continue the digoxin. She is not a candidate for anticoagulation. OBJECTIVE: VITAL SIGNS: On exam, an NG tube is in place. Heart rate is 110 beats per minute. Blood pressure is 95/70. CHEST: Reveals diminished air entry bilaterally. HEART: Reveals first and second heart sounds. Irregular rhythm. MUSCULOSKELETAL: Exam of extremities reveals mild edema. CURRENT MEDICATIONS: Include, 1. Amiodarone 200 daily. 2. Lipitor 20 daily. 3. Digoxin 250. 4. Insulin. 5. Synthroid. 6. Lopressor 100 b.i.d. 7. Midodrine. 8. Remeron along with antibiotic. ASSESSMENT: 1. Persistent atrial fibrillation with poorly controlled ventricular rate. 2. History of gastrointestinal bleed. PLAN: We will increase the dose of metoprolol for better rate control and she will be transferred over to [facility] once there is a bed available for further evaluation of the GI bleed. MMODL / IJN: [id number] /
[2022-04-12 21:31] LABS: Glucose,Whole Blood 172 mg/dL (70-110)
[2022-04-12] MEDS: MIRTAZAPINE 15 MG TAB PO SCH (21:51)
[2022-04-13] MEDS: HYDROcodone/APAP 10-325MG 1 EACH TAB PO PRN ×2 (01:19→14:10)
[2022-04-13] MEDS: BUTALB/APAP/CAFF 50-325-40MG TAB PO PRN (01:19)
[2022-04-13] MEDS: ACETAMINOPHEN TAB 500 MG TAB PO SCH ×5 (01:22→21:17)
[2022-04-13] MEDS: PIPERACILLIN-TAZOBACTAM 3.375 GM in SODIUM CHLORIDE 0.9% 100 ML IVPB SCH ×2 (01:22→10:07)
[2022-04-13] MEDS: SODIUM CHLORIDE 0.9% 1,000 ML IV SCH ×2 (01:23→16:01)
[2022-04-13 04:04] LABS: Glucose,Whole Blood 155 mg/dL (70-110)
[2022-04-13 04:16] LABS: Allen Test Performed? Yes
[2022-04-13 04:19] LABS: ABG Base Excess -1.1 mmol/L; ABG HCO3 25 mmol/L (21-25); ABG PCO2 46 mmHg (35-45); ABG PH 7.34 (7.35-7.45); ABG PO2 111 mmHg (83-108); ABG TCO2 26 mmol/L (19-24)
[2022-04-13 04:20] LABS: Anisocytosis Moderate; HCT 26.3 % (34.0-46.0); HGB 8.5 gm/dL (11.4-16.0); Hypochromasia Slight; MCH 30.7 pg (25.0-35.0); MCHC 32.4 g/dL (31.0-37.0); MCV 94.6 fL (80.0-100.0); Macrocytosis Slight; Mean Platelet Volume 10.6; Poikilocytosis Marked; RBC 2.78 m/uL (3.80-5.40); RDW 23.1 % (11.5-15.5); WBC 11.3 k/uL (3.8-10.6)
[2022-04-13 04:23] LABS: Platelet Count 55 k/uL (150-450)
[2022-04-13 04:30] LABS: African American GFR (CKD) >90 (>60 ml/min/1.73 sqM); Anion Gap 3 mmol/L; Blood Urea Nitrogen 18 mg/dL (7-17); Calcium 6.7 mg/dL (8.4-10.2); Carbon Dioxide 26 mmol/L (22-30); Chloride 112 mmol/L (98-107); Glucose 116 mg/dL (74-99); Non-African American GFR(CKD) >90 (>60 ml/min/1.73 sqM); Potassium 3.1 mmol/L (3.5-5.1); Sodium 141 mmol/L (137-145)
[2022-04-13] MEDS: POTASSIUM CHLORIDE 20 MEQ in WATER FOR INJECTION 1 100ML.BAG IVPB SCH ×2 (05:25→08:07)
--- NOTE | 2022-04-13 06:12 | XR ---
EXAMINATION TYPE: XR chest 1V portable DATE OF EXAM: 04/13/2022 CLINICAL HISTORY: Difficulty breathing progress study. Possible aspiration. TECHNIQUE: Single AP portable semiupright view of the chest is obtained. COMPARISON: Chest x-ray from one day earlier and older studies. FINDINGS: Stable left-sided PICC line. Stable nasogastric tube. Chronic parenchymal changes with Persistent patchy bibasilar opacities. There is a left-sided stable and within normal limits. Elevated right hemidiaphragm redemonstrated. Surgical change through the david mbar spine is partially imaged. IMPRESSION: Chronic changes with bibasilar opacities favoring scarring and/or atelectasis redemonstra gopal. No significant change from one day earlier.
[2022-04-13 06:43] LABS: Glucose,Whole Blood 117 mg/dL (70-110)
[2022-04-13] MEDS: INSULIN ASPART (NovoLOG) 100 UNIT/ML VIAL SQ SCH ×4 (06:43→20:09)
[2022-04-13] MEDS: MIDODRINE 5 MG TAB PO SCH ×3 (06:45→15:59)
[2022-04-13] MEDS: LEVOTHYROXINE 88 MCG TAB PO SCH (06:46)
--- NOTE | 2022-04-13 08:11 | P.PN ---
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 She is weak this AM and does not cooperate well with me. She states she wants to be left alone. When I told her we were waiting for a bed down at [place] to assess her GI issues she stated "its not worth it". I reassured her it was and we need her to get better and we are doing everything in our power to get her better. I also reiterated that if she does not work hard to recover, she will not. She needs to be more active and needs to sit up more. She becomes hypotensive when she sits up because she lays in bed all day. She will not even move her arms, even though we know she can. She refused to do her IS this AM for me. I spoke with nurse at bedside and reiterated with her again that we need to be aggressive in our rehab protocols now with her as her Hgb has been stable for the past day or two and so have her vitals. At this point it is a "use it or lose it policy" with her nerves, muscles and everything and if she does not move and try to move and cooperate with PT and OT then we will be fighting an uphill rodriguez and I told this to Gabrielle and she stated she understood. Objective - Vital Signs Vital signs: Vital Signs Temp 100.0 F H 04/13/22 02:00 Pulse 105 H 04/13/22 02:00 Resp 20 04/13/22 04:21 BP 109/57 04/13/22 02:00 Pulse Ox 97 04/13/22 02:00 FiO2 2 04/04/22 05:29 Intake & Output 04/12/22 04/13/22 04/13/22 18:59 06:59 18:59 Intake Total 1966 450 Output Total 1155 553 Balance 811 -103 Intake: IV 900 450 Anidulafungin 100 mg In 100 Sodium Chloride 0.9% 100 ml @ 84 mls/hr IVPB DAILY [facility] Rx#:[id number] Piperacillin-Tazobactam 3 200 100 .375 gm In Sodium Chloride 0.9% 100 ml @ 25 mls/hr IVPB Q8HR [facility] Rx# :[id number] Sodium Chloride 0.9% 1, 600 350 000 ml @ 50 mls/hr IV . Q20H [facility] Rx#:[id number] Oral 716 Tube Feeding 320 Other 30 Output: Urine 455 228 Stool 700 325 Other: Voiding Method Indwelling Catheter Indwelling Catheter ABP, PAP, CO, CI - Last Documented Arterial Blood Pressure 158/70 - Exam Exam is stable from spine standpoint. She still has b/l LE weakness that is not improving as she is not moving and in bed most of the day. She needs to be up more, but her vitals wont tolerate it at this time. PHYSICAL EXAMINATION: Vitals: Stable General: Awake, alert, appropriate for age, in no acute distress. HEENT: No changes Extremities: Skin warm and dry without no acute lesions, coloration, temperature, skin intact, no tenderness or erythema. Integument: Surgical incisions: Clean but macerated at the bottom portion. Sutures remain to help keep closed. She has healing problems and poor potential. Warren Cath present and patent Flexoseal present and patent Palpation: Special findings: pain with palpation of the right breast area with large hematoma noted as well as anterior chest wall. VASCULAR STATUS : Wrist Pulses: [2/4 bilateral radial and ulnar] Pedal Pulses: [2/4 bilateral DP and PT] Color: [Normal] Edema: Improved in arms and hands. NEUROLOGIC EXAMINATION: Mental Status: Awake and alert, oriented,but slow with normal attention, concentration and memory, and fluent, he has slow speech Cranial Nerves: I: Olfactory not tested. II: Visual acuity normal, no visual field deficit noted with confrontation. III,IV: Normal pupillary reflexes & intact extraocular movements without nystagmus. V,: Intact symmetrical facial sensation. VII: Intact symmetrical facial motor movement VIII: Hearing intact. IX,X: Intact gag, swallow, & normal voice. XI: Sternocleidomastoid, trapezius function intact. XII: Tongue midline with normal movements. Special Tests: L'hermitte's Sign: Absent Straight Leg Raising: Absent Bilateral Motor Exam (0-5/5, N/T) STRENGTH 4- out of 5 strength in upper extremity's bilaterally all major muscle groups without focal deficits generalized weakness 3 / 5 strength bilateral lower extremities all major muscle groups with generalized weakness no focal deficits. She is weak in her hip flexors currently still with 2-3/5 strength. She can fire her quads b/l but they are v rosangela weak. REFLEXES Upper Extremity: RIGHT [2]/4 LEFT [2]/4 Lower Extremity: RIGHT [2]/4 LEFT [2]/4 Pathological Reflexes Warren's: RIGHT [Absent] LEFT [Absent] Babinski: RIGHT [Absent] LEFT [Absent] Clonus: RIGHT [None] LEFT [None] SENSORY Intact Gait and Functional Evaluation: Lay Flat, Bedrest - Labs CBC & Chem 7: 04/13/22 04:10 04/13/22 04:10 Labs: Abnormal Lab Results - Last 24 Hours (Table) 04/12/22 04/12/22 04/12/22 Range/Units 11:31 16:40 21:29 WBC (3.8-10.6) k/uL RBC (3.80-5.40) m/uL Hgb (11.4-16.0) gm/dL Hct (34.0-46.0) % RDW (11.5-15.5) % Plt Count (150-450) k/uL ABG pH (7.35-7.45) ABG pCO2 (35-45) mmHg ABG pO2 (83-108) mmHg ABG Total CO2 (19-24) mmol/L ABG O2 Saturation (94-97) % Potassium (3.5-5.1) mmol/L Chloride (98-107) mmol/L BUN (7-17) mg/dL Creatinine (0.52-1.04) mg/dL Glucose (74-99) mg/dL POC Glucose (mg/dL) 170 H 203 H 172 H (70-110) mg/dL Calcium (8.4-10.2) mg/dL 04/13/22 04/13/22 04/13/22 Range/Units 04:01 04:10 04:10 WBC 11.3 H (3.8-10.6) k/uL RBC 2.78 L (3.80-5.40) m/uL Hgb 8.5 L (11.4-16.0) gm/dL Hct 26.3 L (34.0-46.0) % RDW 23.1 H (11.5-15.5) % Plt Count 55 L (150-450) k/uL ABG pH (7.35-7.45) ABG pCO2 (35-45) mmHg ABG pO2 (83-108) mmHg ABG Total CO2 (19-24) mmol/L ABG O2 Saturation (94-97) % Potassium 3.1 L (3.5-5.1) mmol/L Chloride 112 H (98-107) mmol/L BUN 18 H (7-17) mg/dL Creatinine 0.35 L (0.52-1.04) mg/dL Glucose 116 H (74-99) mg/dL POC Glucose (mg/dL) 155 H (70-110) mg/dL Calcium 6.7 L (8.4-10.2) mg/dL 04/13/22 04/13/22 Range/Units 04:15 06:42 WBC (3.8-10.6) k/uL RBC (3.80-5.40) m/uL Hgb (11.4-16.0) gm/dL Hct (34.0-46.0) % RDW (11.5-15.5) % Plt Count (150-450) k/uL ABG pH 7.34 L (7.35-7.45) ABG pCO2 46 H (35-45) mmHg ABG pO2 111 H (83-108) mmHg ABG Total CO2 26 H (19-24) mmol/L ABG O2 Saturation 99.0 H (94-97) % Potassium (3.5-5.1) mmol/L Chloride (98-107) mmol/L BUN (7-17) mg/dL Creatinine (0.52-1.04) mg/dL Glucose (74-99) mg/dL POC Glucose (mg/dL) 117 H (70-110) mg/dL Calcium (8.4-10.2) mg/dL Assessment and Plan Assessment: 1. 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 surgery, nephrology, ID evaluations -Continue Activity: SIT UP MUCH POSSIBLE. Turn q2 when in bed. -PT / OT DAILY work on increased strength in LE quads, hammys, etc for standing -DAILY SHOWERS -Daily proning 5-10 min work up to 10 -Cont Abx for duration of stay -Caffiene daily 200 mg daily -Add Fioracet PRN for LOZANO, currently no LOZANO -Pain control: Adequate today (Cont with percocet. NO more oxy IR, or dilaudid at this time. Watch pressures and VS due to her bleed. -Meplex pads on sacral region with barrier cream. Cont turn. Sit at different angles. -Meds: reviewed -Trend labs, trend SED and CRP for markers -Transfusions to vitals -GI ppx: Per General surgery, senna, Miralax, Golytely -Continue Warren changed per protocol -Cont with Flexoseal -DVT PPX: Mechanical only at this time due to bleed -Hygiene: Maintain dressing clean and dry. Meticulous cleaning after BMs away from incision site patient has had several instances on the floor where she was covered and bowel movement as well as urine up to her shoulders on her back. The wound needs to be kept meticulously clean. -Encourage IS 10x/hr -TRANSFER TO [facility] FOR GI COVERAGE FOR GIB SOON BED AVAILABLE.
[2022-04-13] MEDS: DULoxetine HCL 60 MG CAPSULE.DR PO SCH (10:07)
[2022-04-13] MEDS: GABAPENTIN 400 MG CAP PO SCH ×3 (10:07→21:16)
[2022-04-13] MEDS: LACTULOSE 20 GM/30 ML CUP PO SCH ×2 (10:07→21:16)
[2022-04-13] MEDS: MAGNESIUM OXIDE 400 MG TAB PO SCH (10:07)
[2022-04-13] MEDS: ATORVASTATIN 20 MG TAB PO SCH (10:08)
[2022-04-13] MEDS: AMIODARONE 200 MG TAB PO SCH (10:08)
[2022-04-13] MEDS: PANTOPRAZOLE 40 MG/10 ML VIAL IVP SCH ×2 (10:08→21:16)
[2022-04-13] MEDS: MAG HYDROX/AL HYDROX/SIMETH 30 ML, diphenhydrAMINE ELIXIR 75 MG, LIDOCAINE VISCOUS 2% 3... PO SCH ×9 (10:08→21:44)
[2022-04-13] MEDS: SODIUM BICARBONATE TAB 650 MG TAB PO SCH ×2 (10:08→21:16)
[2022-04-13] MEDS: DIGOXIN 250 MCG TAB PO SCH (10:09)
[2022-04-13 11:27] LABS: Glucose,Whole Blood 109 mg/dL (70-110)
[2022-04-13] MEDS: METOPROLOL TARTRATE 50 MG TAB PO SCH ×3 (11:46→21:16)
[2022-04-13] MEDS: ANIDULAFUNGIN 100 MG in SODIUM CHLORIDE 0.9% 100 ML IVPB SCH (11:46)
--- NOTE | 2022-04-13 12:51 | P.PN ---
Subjective Progress Note Date: 04/13/22 Principal diagnosis: status post lumbar decompression/fusion Is evaluation of 02/25/2022, the patient is being seen for a follow-up in the intensive care unit. The patient is post laminectomy and fusion/decompression of the spine and this was done on multiple levels. The patient overnight was kept on a mechanical ventilator. This morning, the patient is on propofol which is running at 35 mcg/kg/m. The patient is well sedated and the patient is quite sick sinus with a mechanical ventilator. The patient is requiring no pressors. The patient on normal saline in the at the rate of 50 mL an hour. The patient is on a mechanical ventilator on assist control mode at the rate of 18, tidal volume of 450, FiO2 of 40% with a PEEP of 5. The blood gas from today showed a pH of 7.41 with a pCO2 of 35 and pO2 of 138. Chest x-ray shows smaller lung volumes, some mild elevation of the right hemidiaphragm. ET tube is sitting just at the level of the aortic knob. No evidence of any pneumothorax. No airspace disease or consolidations. The patient also had a CT angiogram that showed no evidence of any pulmonary embolism. That showed atelectatic change in lung bases and various up other lung segments. No effusion. No lung collapse. CAT scan of the lumbosacral spine was also completed. The surgical one-sided dry clean and intact. The Hemovac output is bloody and its minimal at this point in time. The patient is afebrile. The patient is in atrial fibrillation. Rate is controlled. The patient is receiving Dilaudid for pain control.Blood work from today shows a white cell count of 14.7 with a hemoglobin of 10.1 and a platelet count of 232. The patient also has a sodium level of 135, potassium level of 4.4, chloride is 106 with a bicarb of 23 and a BUN of 15 and a creatinine of 0.5. On 04/09/2022, the patient is in the intensive care area that she is having ongoing issues with GI bleeding. Hemoglobin has been fluctuating. I have discussed this issue with the general surgeon on multiple occasions. It was thought that the stool was brown based on the surgeon's evaluation. Nevertheless, this morning, hemoglobin drop down to 4.9 and I witnessed a large quantity of maroon stool and the patient's bed in the morning evaluation. Furthermore, the blood work from today showed a hemoglobin of 4.9 and the patient is obviously having ongoing issues with GI bleeding. She remains on IV Protonix. GI surgeries on the case and he'll remains aware of those changes. Her cardiac rhythm is irregular consistent with age of fibrillation/flutter. No hematemesis. No abdominal pain. Hemodynamically stable despite a significant drop in hemoglobin down to 4.9. The rest of the blood work shows a sodium level of 131, potassium level is at 3.3, BUN is 35 with a creatinine of 0.54. The patient remains on the same antibiotic coverage. The patient remains on a combination of Zosyn and Eraxis. The patient otherwise is still critical and intensive care unit and the activation for now remains episodes of atrial fibrillation fluctuating hemoglobin. Note that the patient also had an issue with itchy fibrillation with rapid ventricular response yesterday. Based on that, the patient was loaded with amiodarone and the patient continues to be on amiodarone at a dose of 0.5 mg/m. Heart rate under better control for now. Reevaluated today on 04/10/2022, patient remains in the ICU, being followed by surgery for her GI bleeding, received a total of 12 units of packed RBCs since admission, and 2 units of platelets. An hemoglobin today is 9.2. Apparently the patient continues to have intermittent episodes of maroon colored stools, and surgery on the case is recommending transfer to a tertiary care institution is there is no GI coverage. Patient is on 4 L nasal cannula, does not seem to be in any distress, however she seems to be generally weak. Her initial back surgery was 02/24, another back surgery was done on 03/09, and EGD was done on 03/09 patient is on amiodarone at 0.5 mg/m, seems to have regular rhythm, she may be in atrial flutter. She is on normal saline at 50 mL per hour. Again plans are in progress to consider transferring the patient to another institution. WBC count today is 13.5 hemoglobin is 9.2. Lites are normal, renal profile is normal Reevaluated today on 04/11/2022, patient is basically about the same, remained generally weak and debilitated. Her hemoglobin is holding, her hemoglobin yesterday was 8.4, is 8.9 today. No further episodes of GI bleeding at present, nonetheless the patient is going to be transferred to [facility] hopefully sometime today, she was accepted, and waiting for a bed to become available. MRI of the brain yesterday showed small vessel ischemic change, otherwise no ac yolanda process noted. Basic metabolic profile today is relatively normal, renal profile is normal. Patient was reevaluated today on 04/12/22, remains in the ICU, waiting for a bed at [facility]. Patient has no further active bleeding, and her hemoglobin is stable at 9 today. IV fluid at 50 mL per hour. Patient is on room air, and she is not in any distress, but she generally weak frail and debilitated. Reevaluated today on 04/13/22, patient is basically about the same, remained ge nerally weak, today I recommended serum cortisol level which came back within normal range, and this is not a picture of adrenal insufficiency. Her IV fluid is at 50 mL per hour using normal saline. Patient was given Narcan around 4:20 AM because she was noted to be unresponsive, ABG showed a pO2 of 111 pCO2 46 pH of 7.34, patient responded well to Narcan. Today I noted that the patient has been on antibiotics long time, I believe the antibiotics should be discontinued.no further episodes of GI bleeding, and I believe the patient should be considered to transfer to rehab facility. Objective - Vital Signs Vital signs: Vital Signs Temp 100.0 F H 04/13/22 02:00 Pulse 116 H 04/13/22 11:00 Resp 23 04/13/22 11:00 BP 103/70 04/13/22 11:00 Pulse Ox 97 04/13/22 11:00 FiO2 2 04/04/22 05:29 Intake & Output 04/12/22 04/13/22 04/13/22 18:59 06:59 18:59 Intake Total 1966 450 Output Total 1155 553 Balance 811 -103 Intake: IV 900 450 Anidulafungin 100 mg In 100 Sodium Chloride 0.9% 100 ml @ 84 mls/hr IVPB DAILY [facility] Rx#:[id number] Piperacillin-Tazobactam 3 200 100 .375 gm In Sodium Chloride 0.9% 100 ml @ 25 mls/hr IVPB Q8HR [facility] Rx# :[id number] Sodium Chloride 0.9% 1, 600 350 000 ml @ 50 mls/hr IV . Q20H [facility] Rx#:[id number] Oral 716 Tube Feeding 320 Other 30 Output: Urine 455 228 Stool 700 325 Other: Voiding Method Indwelling Catheter Indwelling Catheter ABP, PAP, CO, CI - Last Documented Arterial Blood Pressure 158/70 - Exam Physical Exam: Revealed a 71-year-old female in no distress. 2 L nasal cannula, O2 saturations 97%. Head: Atraumatic, normocephalic. HEENT:[Neck is supple.] [No neck masses.] [No thyromegaly.] [No JVD.] Triple- lumen catheter noted in the right IJ. Chest: [Clear throughout, no crackles, no rhonchi, no wheezes.] Cardiac Exam: Regular rhythm, normal S1 and S2, no S3 gallop, no murmur.] Abdomen: [Soft, nontender, no megaly, no rebound, no guarding, normal bowel sounds.] Extremities: [No clubbing, no edema, no cyanosis.] Neurological Exam: [No focal neurologic deficit.]alert oriented 3, no gross focal deficits. Psychiatric: Normal mood affect and normal mental status examination. Skin: No rashes. - Labs CBC & Chem 7: 04/13/22 04:10 04/13/22 04:10 Labs: Abnormal Lab Results - Last 24 Hours (Table) 04/12/22 04/12/22 04/13/22 Range/Units 16:40 21:29 04:01 WBC (3.8-10.6) k/uL RBC (3.80-5.40) m/uL Hgb (11.4-16.0) gm/dL Hct (34.0-46.0) % RDW (11.5-15.5) % Plt Count (150-450) k/uL ABG pH (7.35-7.45) ABG pCO2 (35-45) mmHg ABG pO2 (83-108) mmHg ABG Total CO2 (19-24) mmol/L ABG O2 Saturation (94-97) % Potassium (3.5-5.1) mmol/L Chloride (98-107) mmol/L BUN (7-17) mg/dL Creatinine (0.52-1.04) mg/dL Glucose (74-99) mg/dL POC Glucose (mg/dL) 203 H 172 H 155 H (70-110) mg/dL Calcium (8.4-10.2) mg/dL 04/13/22 04/13/22 04/13/22 Range/Units 04:10 04:10 04:15 WBC 11.3 H (3.8-10.6) k/uL RBC 2.78 L (3.80-5.40) m/uL Hgb 8.5 L (11.4-16.0) gm/dL Hct 26.3 L (34.0-46.0) % RDW 23.1 H (11.5-15.5) % Plt Count 55 L (150-450) k/uL ABG pH 7.34 L (7.35-7.45) ABG pCO2 46 H (35-45) mmHg ABG pO2 111 H (83-108) mmHg ABG Total CO2 26 H (19-24) mmol/L ABG O2 Saturation 99.0 H (94-97) % Potassium 3.1 L (3.5-5.1) mmol/L Chloride 112 H (98-107) mmol/L BUN 18 H (7-17) mg/dL Creatinine 0.35 L (0.52-1.04) mg/dL Glucose 116 H (74-99) mg/dL POC Glucose (mg/dL) (70-110) mg/dL Calcium 6.7 L (8.4-10.2) mg/dL 04/13/22 Range/Units 06:42 WBC (3.8-10.6) k/uL RBC (3.80-5.40) m/uL Hgb (11.4-16.0) gm/dL Hct (34.0-46.0) % RDW (11.5-15.5) % Plt Count (150-450) k/uL ABG pH (7.35-7.45) ABG pCO2 (35-45) mmHg ABG pO2 (83-108) mmHg ABG Total CO2 (19-24) mmol/L ABG O2 Saturation (94-97) % Potassium (3.5-5.1) mmol/L Chloride (98-107) mmol/L BUN (7-17) mg/dL Creatinine (0.52-1.04) mg/dL Glucose (74-99) mg/dL POC Glucose (mg/dL) 117 H (70-110) mg/dL Calcium (8.4-10.2) mg/dL Assessment and Plan Assessment: Impression: recurrent GI bleeding, presently stable. Acute Enterobacter urinary tract infection and sepsis with bacteremia secondary to Enterobacter. I believe the antibiotics should be discontinued Atrial fibrillation/flutter Leukocytosis. Lumbar decompression/fusion February 05 and on 03/09/22, patient underwent exploration and washout with dural repairs secondary to falls Brief cardiac arrest/Pea in the operating room during her initial surgery. 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 Continue present supportive care measures Continue PPIs. consider transfer to rehab. We'll continue to follow Time with Patient: Less than 30
--- NOTE | 2022-04-13 13:37 | PN ---
PROGRESS NOTE SUBJECTIVE: Gabrielle is in the ICU following massive GI bleed, currently still remains in atrial fibrillation with somewhat of a poorly controlled ventricular rate, not a candidate for anticoagulation. I am giving her amiodarone, digoxin, metoprolol 100 b.i.d. She has hypotension. She is currently on midodrine 5 t.i.d., which have been increased to 10 t.i.d. OBJECTIVE: VITAL SIGNS: On exam, heart rate is around 105 to 110 beats per minute, blood pressure is 103/72, respiratory rate is 18. CHEST: Reveals good air entry with occasional rhonchi bilaterally. HEART: Reveals first and second heart sounds. Irregular rhythm. EXTREMITIES: Reveals 1+ edema. LABORATORY DATA: Labs show a hemoglobin of 8.5, creatinine is 0.3. ASSESSMENT: 1. Persistent atrial fibrillation with poorly controlled ventricular rate. 2. Gastrointestinal bleed. 3. Hypotension. PLAN: We will increase the dose of midodrine. I prefer to continue the metoprolol at the current dose. MMODL / IJN: [id number] /
--- NOTE | 2022-04-13 13:59 | XR ---
EXAMINATION TYPE: XR abdomen complete w decub DATE OF EXAM: 04/13/2022 CLINICAL HISTORY: Abdominal pain. TECHNIQUE: Supine, upright, and left side down lateral decubitus views of the abdomen are obtained. COMPARISON: Abdominal x-ray [address] 4 days ago.. FINDINGS: Nasogastric tube redemonstrated projecting below diaphragm. Cholecystectomy clips are redem onstrated. Extensive surgical change to the thoracolumbar spine into the pelvis is redemonstrated. Ex am suboptimal due to large body habitus and portable technique. Some paucity of bowel gas slightly pr ominent gas-filled bowel loops in the right abdomen shows significant interval improvement in number of gas-filled bowel loops in degree of bowel prominence or dilatation from most recent abdominal x-ra y. No free air is seen. Lung bases remain grossly clear. IMPRESSION: As above. Improvement from most recent abdominal x-ray noted.
--- NOTE | 2022-04-13 14:15 | P.PN ---
Subjective Progress Note Date: 04/13/22 Patient is a 71 yo CF with a hx of A fib s/p ablation, GERD, hypertension, dyslipidemia, and right diaphragmatic paralysis who presented for T10 to Pelvis decompression and fusion with revision. Course complicated by significant blood loss. Patient was on vasopressors, also received TXA gtt. She received 7 L of lactated Ringer's. She received 1 amp of sodium bicarb intaop. She also received albumin. Patient then had a cardiac arrest. During the case she developed A. fib with RVR and then quickly transitioned into bradycardia with a low end-tidal CO2. She received 0.4 of atropine and CPR was started. She received epinephrine 0.5. She achieved ROSC. Total down time was less than 5 minutes. She was extubated on 02/25. She continued to do well but struggled with pain. She was downgraded from ICU on 03/03. On 03/06/22 patient was noted to have a significant drop in hemoglobin from 10.0 down to 7.5 and upon reevaluation on 03/07 was found to have hemoglobin of 5.4, patient required multiple transfusions. She has received a total of 7 units PRBCs and 1 unit of platelets. She underwent a CT abdomen and pelvis and was found to have a large right chest hematoma dilated small bowel concerning for ileus. Patient was evaluated by cardiothoracic surgery and they recommended conservative management. On 03/07, patient was noted to be hypotensive with elevated WBC count of 42.3, with worsening renal function and hyperkalamia. Patient was treated with NS bolus, IV insulin/D50, Albuterol and sodium bicarbonate. She was transferred back to the ICU for septic shock requiring Levophed. Patient was started on Vancomycin and Cefepime. Blood and urine cultures were obtained and positive for Enterobacter. Infectious disease was consulted and patient was continued on Cefepime for treatment of Enterobacter UTI with secondary bacteremia and Vancomycin was discontinued. Patient was later weaned off of vasopressors and again transferred out of the ICU. Patient was started on Lasix for treatment of acute on chronic systolic heart failure with EF of 35-40%. Patient continued on Protonix for GI prophylaxis, amiodarone and metoprolol for atrial fibrillation with RVR sodium bicarb for treatment of metabolic acidosis. Pt's Xarelto remains hold at this time. Patient was evaluated by PMR and is currently not a candidate for inpatient rehab. She has been cleared by orthopedic surgery to start working with physical therapy. On 03/26/22 patient was again found to have elevating leukocytosis and repeat Wound cultures were obtained. Wound cultures were positive for pseudomonas aeruginosa, enterococcus fasciculus, and Patsy albicans. Patient to continue with Zosyn per culture and sensitivity report and as recommended by infectious disease as this may be contamination/colonization however patient is a high risk of infection so we will continue with empiric antibiotic therapy. Overnight on 03/28/22 patient again developed episodes of melena and at that time Dr. Arce, general surgeon was re-consulted. CT abdomen and pelvis revealing bilateral hydronephrosis unable to rule out obstructive etiology, concerns for fecal impaction, and persistent previously known right anterior chest wall hematoma. General surgery following and reevaluated patient secondary to concerns of fecal impaction and started patient on lactulose. Wiley catheter was inserted secondary to bi lateral hydronephrosis and patient was evaluated by urologist recommending continuation of Wiley catheter as bilateral hydronephrosis is believed to be resulting secondary to urinary retention. On the evening of 04/03/21 patient with continued atrial tachycardia and hypotension and unable to take metoprolol secondary to low blood pressures. Patient had episode of hematochezia along with large blood clot and was transferred back to the ICU. Had bedside manual disimpaction with general surgery. Also has a posterior anal fissure could likely because of current bleeding. On a bowel regimen. Hemoglobin continues to down trend. Requiring further blood transfusions. Hemoglobin currently stable. Hemodynamically stable. Patient pending transfer for GI at [facility]. Subjective: Pt not progressing well but had motivational counseling and pt willing to work with PT/OT, try to do some bed exercises. Discussed case with pulmonology, will rule out adrenal insufficiency after 1 mo of dexamethasone. Discussed case with ID, will stop zosyn given thrombocytopenia. Discussed case with nephrology/cardiology, same dose of metoprolol, but increase midodrine. Discussed case with surgery, will reevaluate abd and need for FMS. Also will add C diff to r/o secondary infx. Vitals Signs Reviewed. Gen: awake, alert HEENT: normocephalic, atraumatic, good hearing acuity, moist mucous membranes Resp: good air exchange, breathing comfortably with no accessory muscle use CVS: good distal perfusion x 4, tachycardic GI: soft, NTTP, distended, +FMS : no SPT, no CVAT, wiley catheter is present MSK: no pitting edema, no clubbing Neuro: non-focal, moving all extremities Psych: cooperative, euthymic mood Assessment and Plan: GI bleeding, likely lower Acute abdominal pain - resolved Fecal impaction, status post manual disimpaction Posterior Anal fissure -CT abdomen and pelvis concerning for possible fecal impaction. -Gen. surgery was consulted for reevaluation -Continue with Protonix 40 mg IVP twice daily -Hemoglobint stable -Requiring more blood transfusions -On bowel regimen -Patient to be transferred for GI Atrial tachycardia/fibrillation with RVR Hypotension -not on pressors Status post Cardiac arrest with ROSC Acute on chronic systolic heart failure -Cardiology following -Continuous telemetry monitoring. -Oral amiodarone and digoxin, and metoprolol -Diuretics held -also on Midodrine -Holding anticoagulation due to ongoing GI bleed Poor nutritional intake Severe protein calorie malnutrition Anasarca -Patient started on mirtazapine -Patient getting tube feeds Hypokalemia- resolved Septic shock - resolved Enterobacter cloacae UTI with secondary bacteremia - resolved Lactic acidosis Leukocytosis -resolved Patsy UTI -Infectious disease following and managing antibiotic course at this time. -ID has patient on Eraxis Bilateral hydronephrosis, likely secondary to urinary retention -CT abdomen and pelvis revealing bilateral hydronephrosis unable to rule out obstructive etiology. -Renal function stable -Urology following, recommending continuation of Wiley catheter Prerenal azotemia, improving Hyponatremiaresolving Hyperkalemiaresolved Hypokalemiaresolved Metabolic acidosis, resolved -Continue sodium bicarb 650 mg twice a day -Nephrology following. Prediabetes with hyperglycemia, now hypoglycemia -Likely steroid induced -A1c is 6 -Continue with sliding scale Right breast hematoma - stable T10 to pelvis decompression with fusion Post-op pain -Management per primary admitting Orthopedic surgery team including DVT pro phylaxis, pain management, wound/dressing care, weightbearing, and PT/OT . -PT/OT following. Right diaphragmatic paralysis -No interventions for her pulmonology Hyperlipidemia -atorvastatin. History of hypertension -Currently On Midodrine for episodes of hypotension Transaminitis -Likely ischemic hepatitis. -Resolved Thank you for allowing us to participate in the care of this pleasant patient. Do not hesitate to contact us with questions. Someone can be reached from the [facility] hospitalist group all hours of the day at [phone] or via perfect serve. Objective - Vital Signs Vital signs: Vital Signs Temp 100.0 F H 04/13/22 02:00 Pulse 89 04/13/22 14:00 Resp 26 H 04/13/22 13:00 BP 94/67 04/13/22 14:00 Pulse Ox 98 04/13/22 13:00 FiO2 2 04/04/22 05:29 Intake & Output 04/12/22 04/13/22 04/13/22 18:59 06:59 18:59 Intake Total 1966 450 Output Total 1155 553 Balance 811 -103 Intake: IV 900 450 Anidulafungin 100 mg In 100 Sodium Chloride 0.9% 100 ml @ 84 mls/hr IVPB DAILY MEHUL Rx#:[id number] Piperacillin-Tazobactam 3 200 100 .375 gm In Sodium Chloride 0.9% 100 ml @ 25 mls/hr IVPB Q8HR ME[facility]UL Rx# :[id number] Sodium Chloride 0.9% 1, 600 350 000 ml @ 50 mls/hr IV . Q20H MEHUL Rx#:[id number] Oral 716 Tube Feeding 320 Other 30 Output: Urine 455 228 Stool 700 325 Other: Voiding Method Indwelling Catheter Indwelling Catheter Indwelling Catheter ABP, PAP, CO, CI - Last Documented Arterial Blood Pressure 158/70 - Labs CBC & Chem 7: 04/13/22 04:10 04/13/22 04:10 Labs: Abnormal Lab Results - Last 24 Hours (Table) 04/12/22 04/12/22 04/13/22 Range/Units 16:40 21:29 04:01 WBC (3.8-10.6) k/uL RBC (3.80-5.40) m/uL Hgb (11.4-16.0) gm/dL Hct (34.0-46.0) % RDW (11.5-15.5) % Plt Count (150-450) k/uL ABG pH (7.35-7.45) ABG pCO2 (35-45) mmHg ABG pO2 (83-108) mmHg ABG Total CO2 (19-24) mmol/L ABG O2 Saturation (94-97) % Potassium (3.5-5.1) mmol/L Chloride (98-107) mmol/L BUN (7-17) mg/dL Creatinine (0.52-1.04) mg/dL Glucose (74-99) mg/dL POC Glucose (mg/dL) 203 H 172 H 155 H (70-110) mg/dL Calcium (8.4-10.2) mg/dL 04/13/22 04/13/22 04/13/22 Range/Units 04:10 04:10 04:15 WBC 11.3 H (3.8-10.6) k/uL RBC 2.78 L (3.80-5.40) m/uL Hgb 8.5 L (11.4-16.0) gm/dL Hct 26.3 L (34.0-46.0) % RDW 23.1 H (11.5-15.5) % Plt Count 55 L (150-450) k/uL ABG pH 7.34 L (7.35-7.45) ABG pCO2 46 H (35-45) mmHg ABG pO2 111 H (83-108) mmHg ABG Total CO2 26 H (19-24) mmol/L ABG O2 Saturation 99.0 H (94-97) % Potassium 3.1 L (3.5-5.1) mmol/L Chloride 112 H (98-107) mmol/L BUN 18 H (7-17) mg/dL Creatinine 0.35 L (0.52-1.04) mg/dL Glucose 116 H (74-99) mg/dL POC Glucose (mg/dL) (70-110) mg/dL Calcium 6.7 L (8.4-10.2) mg/dL 04/13/22 Range/Units 06:42 WBC (3.8-10.6) k/uL RBC (3.80-5.40) m/uL Hgb (11.4-16.0) gm/dL Hct (34.0-46.0) % RDW (11.5-15.5) % Plt Count (150-450) k/uL ABG pH (7.35-7.45) ABG pCO2 (35-45) mmHg ABG pO2 (83-108) mmHg ABG Total CO2 (19-24) mmol/L ABG O2 Saturation (94-97) % Potassium (3.5-5.1) mmol/L Chloride (98-107) mmol/L BUN (7-17) mg/dL Creatinine (0.52-1.04) mg/dL Glucose (74-99) mg/dL POC Glucose (mg/dL) 117 H (70-110) mg/dL Calcium (8.4-10.2) mg/dL
--- NOTE | 2022-04-13 14:55 | P.PN ---
Subjective Progress Note Date: 04/13/22 CHIEF COMPLAINT: Spinal surgery HISTORY OF PRESENT ILLNESS: Surgical service following in regards to GI bleed. Patient is overflow in the ICU. She has a fecal management system in place. Stool is brown in color. Patient complains of right upper quadrant abdominal pain. She denies any nausea vomiting. Tube feeds did have 400 residual. Tube feeds are currently on hold. She did have an episode of unresponsiveness this morning and ATEAM was called and she did receive Narcan. Oral intake has been decreased. Afebrile. WBC is 11.3 H30.5 platelets 55 sinus 141 potassium 3.1 creatinine 0.35 Medicine service has canceled the transfer to [facility]. They're working on getting patient to rehab to help strengthen patient. Medicine service has ordered a stool for C. diff PHYSICAL EXAM: VITAL SIGNS: Reviewed. GENERAL: Well-developed in no acute distress. HEENT: No sclera icterus. Extraocular movements grossly intact. Moist buccal mucosa. Head is atraumatic, normocephalic. ABDOMEN: Soft. Obese. Nondistended. Tenderness to palpation right upper quadrant NEUROLOGIC: Alert and orientated 3. Answer questions appropriately. ASSESSMENT: 1. Acute GI bleed 2. Posterior anal fissure with bleeding 3. Fecal impaction and constipation 4. Lumbar decompression/fusion and then with washout and dural repair 5. Cardiac arrest 6. EGD on 03/19/2022 that showed mild gastritis and esophagitis no active bleeding 7. Right upper quadrant Abdominal pain. History of cholecystectomy PLAN: -Abdominal x-ray ordered for further evaluation of abdominal pain -hold Tube feeds -Continue lactulose -Add simethicone gas drops -Continue to monitor hemoglobin -Continue monitoring for any signs or symptoms of bleeding -Continue PPI -Continue to hold anticoagulation Physician Roll Press Operator note has been reviewed by physician. Signing provider agrees with the documented findings, assessment, and plan of care. I have personally seen and examined the patient, reviewed the BREAD STACKER /PAs history, exam and MDM and agree with the assessment and plan as written. Based on total visit time, I have performed more than 50% of the visit. As above: Patient apparently was having some increased pain. Abdominal x-rays showed no definite abnormality in the degree of bowel distention is actually im proved. No obvious large volume fecal stasis noted at this time. Options reviewed with the patient's son. He is unhappy that the transfer was canceled without his notification or approval. I asked him to discuss this further with the primary service. We discussed options for nutritional support. PEG tube, oral feeding, tube feeds through the indwelling nasogastric tube, TPN all reviewed. Patient does carry increased risks for PEG tube placement. We will begin tube feeds through the nasogastric tube with 20 mL per hour for now. We'll gradually advance if tolerates. After a few days of this we can reassess the patient strengthen her ability to and just oral food herself. If bleeding recurs can plan upper and lower endoscopy. Objective - Vital Signs Vital signs: Vital Signs Temp 100.0 F H 04/13/22 02:00 Pulse 89 04/13/22 14:00 Resp 26 H 04/13/22 13:00 BP 94/67 04/13/22 14:00 Pulse Ox 98 04/13/22 13:00 FiO2 2 04/04/22 05:29 Intake & Output 04/12/22 04/13/22 04/13/22 18:59 06:59 18:59 Intake Total 1966 450 Output Total 1155 553 Balance 811 -103 Intake: IV 900 450 Anidulafungin 100 mg In 100 Sodium Chloride 0.9% 100 ml @ 84 mls/hr IVPB DAILY MEHUL Rx#:[id number] Piperacillin-Tazobactam 3 200 100 .375 gm In Sodium Chloride 0.9% 100 ml @ 25 mls/hr IVPB Q8HR ME[facility]UL Rx# :[id number] Sodium Chloride 0.9% 1, 600 350 000 ml @ 50 mls/hr IV . Q20H MEHUL Rx#:[id number] Oral 716 Tube Feeding 320 Other 30 Output: Urine 455 228 Stool 700 325 Other: Voiding Method Indwelling Catheter Indwelling Catheter Indwelling Catheter ABP, PAP, CO, CI - Last Documented Arterial Blood Pressure 158/70 - Labs CBC & Chem 7: 04/13/22 04:10 04/13/22 04:10 Labs: Abnormal Lab Results - Last 24 Hours (Table) 04/12/22 04/12/22 04/13/22 Range/Units 16:40 21:29 04:01 WBC (3.8-10.6) k/uL RBC (3.80-5.40) m/uL Hgb (11.4-16.0) gm/dL Hct (34.0-46.0) % RDW (11.5-15.5) % Plt Count (150-450) k/uL ABG pH (7.35-7.45) ABG pCO2 (35-45) mmHg ABG pO2 (83-108) mmHg ABG Total CO2 (19-24) mmol/L ABG O2 Saturation (94-97) % Potassium (3.5-5.1) mmol/L Chloride (98-107) mmol/L BUN (7-17) mg/dL Creatinine (0.52-1.04) mg/dL Glucose (74-99) mg/dL POC Glucose (mg/dL) 203 H 172 H 155 H (70-110) mg/dL Calcium (8.4-10.2) mg/dL 04/13/22 04/13/22 04/13/22 Range/Units 04:10 04:10 04:15 WBC 11.3 H (3.8-10.6) k/uL RBC 2.78 L (3.80-5.40) m/uL Hgb 8.5 L (11.4-16.0) gm/dL Hct 26.3 L (34.0-46.0) % RDW 23.1 H (11.5-15.5) % Plt Count 55 L (150-450) k/uL ABG pH 7.34 L (7.35-7.45) ABG pCO2 46 H (35-45) mmHg ABG pO2 111 H (83-108) mmHg ABG Total CO2 26 H (19-24) mmol/L ABG O2 Saturation 99.0 H (94-97) % Potassium 3.1 L (3.5-5.1) mmol/L Chloride 112 H (98-107) mmol/L BUN 18 H (7-17) mg/dL Creatinine 0.35 L (0.52-1.04) mg/dL Glucose 116 H (74-99) mg/dL POC Glucose (mg/dL) (70-110) mg/dL Calcium 6.7 L (8.4-10.2) mg/dL 04/13/22 Range/Units 06:42 WBC (3.8-10.6) k/uL RBC (3.80-5.40) m/uL Hgb (11.4-16.0) gm/dL Hct (34.0-46.0) % RDW (11.5-15.5) % Plt Count (150-450) k/uL ABG pH (7.35-7.45) ABG pCO2 (35-45) mmHg ABG pO2 (83-108) mmHg ABG Total CO2 (19-24) mmol/L ABG O2 Saturation (94-97) % Potassium (3.5-5.1) mmol/L Chloride (98-107) mmol/L BUN (7-17) mg/dL Creatinine (0.52-1.04) mg/dL Glucose (74-99) mg/dL POC Glucose (mg/dL) 117 H (70-110) mg/dL Calcium (8.4-10.2) mg/dL
[2022-04-13] MEDS: DIGOXIN 62.5 MCG TAB PO SCH (15:09)
[2022-04-13 15:55] LABS: Glucose,Whole Blood 132 mg/dL (70-110)
[2022-04-13] MEDS: SIMETHICONE 40 MG/0.6 ML DROPS 2,000 MG/30 ML BOTTLE PO SCH ×2 (16:01→21:44)
--- NOTE | 2022-04-13 19:03 | P.PN ---
Subjective Progress Note Date: 04/13/22 Principal diagnosis: UTI and bacteremia Patient is a 71-year-old female with a past medical history difficult for atrial fibrillation flutter hypertension hyperlipidemia hypothyroidism right breast cancer electively admitted to the hospital more than 2 weeks ago 022 for T10 to lumbar spine revision decompression and posterior lateral interbody fusion, patient did have a episode of hypotension and elevated white count requiring admission to the ICU patient did have a positive UA and gram- negative bacteremia and is scheduled for exploration of the thoracolumbar incision completed on 03/09/2022 with apparently no evidence of any abscess On today's evaluation that is 04/13/2022 the patient continues to be afebrile , the patient is breathing comfortably on 2 L nasal cannula, the patient denies chest pain shortness of breath , the patient did have occasional dry cough , the patient did have nausea but no vomiting, and she has been discontinued and she did have a fecal management system and is getting lactulose. His Objective - Vital Signs Vital signs: Vital Signs Temp 100.0 F H 04/13/22 02:00 Pulse 105 H 04/13/22 02:00 Resp 20 04/13/22 04:21 BP 109/57 04/13/22 02:00 Pulse Ox 97 04/13/22 02:00 FiO2 2 04/04/22 05:29 Intake & Output 04/12/22 04/13/22 04/13/22 18:59 06:59 18:59 Intake Total 1966 450 Output Total 1155 553 Balance 811 -103 Intake: IV 900 450 Anidulafungin 100 mg In 100 Sodium Chloride 0.9% 100 ml @ 84 mls/hr IVPB DAILY MEHUL Rx#:[id number] Piperacillin-Tazobactam 3 200 100 .375 gm In Sodium Chloride 0.9% 100 ml @ 25 mls/hr IVPB Q8HR ME[facility]UL Rx# :[id number] Sodium Chloride 0.9% 1, 600 350 000 ml @ 50 mls/hr IV . Q20H MEHUL Rx#:[id number] Oral 716 Tube Feeding 320 Other 30 Output: Urine 455 228 Stool 700 325 Other: Voiding Method Indwelling Catheter Indwelling Catheter ABP, PAP, CO, CI - Last Documented Arterial Blood Pressure 158/70 - Exam GENERAL DESCRIPTION: An elderly female lying in bed in no distress RESPIRATORY SYSTEM: Unlabored breathing , decreased breath sounds at bases HEART: S1 S2 regular rate and rhythm , ABDOMEN: Soft , no tenderness Lower lumbar spine incision site stitches intact however there giving out no surrounding redness or foul-smelling drainage EXTREMITIES: Diffuse swelling bilateral lower extremity 1 - Labs CBC & Chem 7: 04/13/22 04:10 04/13/22 04:10 Labs: Abnormal Lab Results - Last 24 Hours (Table) 04/12/22 04/12/22 04/12/22 Range/Units 11:31 16:40 21:29 WBC (3.8-10.6) k/uL RBC (3.80-5.40) m/uL Hgb (11.4-16.0) gm/dL Hct (34.0-46.0) % RDW (11.5-15.5) % Plt Count (150-450) k/uL ABG pH (7.35-7.45) ABG pCO2 (35-45) mmHg ABG pO2 (83-108) mmHg ABG Total CO2 (19-24) mmol/L ABG O2 Saturation (94-97) % Potassium (3.5-5.1) mmol/L Chloride (98-107) mmol/L BUN (7-17) mg/dL Creatinine (0.52-1.04) mg/dL Glucose (74-99) mg/dL POC Glucose (mg/dL) 170 H 203 H 172 H (70-110) mg/dL Calcium (8.4-10.2) mg/dL 04/13/22 04/13/22 04/13/22 Range/Units 04:01 04:10 04:10 WBC 11.3 H (3.8-10.6) k/uL RBC 2.78 L (3.80-5.40) m/uL Hgb 8.5 L (11.4-16.0) gm/dL Hct 26.3 L (34.0-46.0) % RDW 23.1 H (11.5-15.5) % Plt Count 55 L (150-450) k/uL ABG pH (7.35-7.45) ABG pCO2 (35-45) mmHg ABG pO2 (83-108) mmHg ABG Total CO2 (19-24) mmol/L ABG O2 Saturation (94-97) % Potassium 3.1 L (3.5-5.1) mmol/L Chloride 112 H (98-107) mmol/L BUN 18 H (7-17) mg/dL Creatinine 0.35 L (0.52-1.04) mg/dL Glucose 116 H (74-99) mg/dL POC Glucose (mg/dL) 155 H (70-110) mg/dL Calcium 6.7 L (8.4-10.2) mg/dL 04/13/22 04/13/22 Range/Units 04:15 06:42 WBC (3.8-10.6) k/uL RBC (3.80-5.40) m/uL Hgb (11.4-16.0) gm/dL Hct (34.0-46.0) % RDW (11.5-15.5) % Plt Count (150-450) k/uL ABG pH 7.34 L (7.35-7.45) ABG pCO2 46 H (35-45) mmHg ABG pO2 111 H (83-108) mmHg ABG Total CO2 26 H (19-24) mmol/L ABG O2 Saturation 99.0 H (94-97) % Potassium (3.5-5.1) mmol/L Chloride (98-107) mmol/L BUN (7-17) mg/dL Creatinine (0.52-1.04) mg/dL Glucose (74-99) mg/dL POC Glucose (mg/dL) 117 H (70-110) mg/dL Calcium (8.4-10.2) mg/dL Assessment and Plan (1) Sepsis Current Visit: Yes Status: Acute Code(s): A41.9 - SEPSIS, UNSPECIFIED ORGANISM SNOMED Code(s): 13547224 Plan: 1-patient with elevated white count and concern for possible maceration of the lower end of the incision cultures obtained per hospitalist which are currently growing enterococcus and Pseudomonas along with anaerobe and Patsy possible colonization however the patient is high risk of infection as per discussion with the spine surgery however the patient has received adequate antibiotic therapy possible superficial wound infection keeping in mind thrombocytopenia and concern of both medical and fabricator special items we will go ahead and discontinue Zosyn. 2-patient with episode of GI bleeding and required admission to the ICU/3 S. both surgery and GI following the patient closely, patient has received multiple blood transfusion , apparently no further GI bleed and planned for transfer has been canceled 3patient with a cath associated UTI urine has been positive for Patsy albicans, patient to continue with Eraxis , and monitor clinical course closely Time with Patient: Less than 30
[2022-04-13 19:50] LABS: Glucose,Whole Blood 110 mg/dL (70-110)
[2022-04-13] MEDS: MIRTAZAPINE 15 MG TAB PO SCH (21:16)
[2022-04-14 05:57] LABS: Glucose,Whole Blood 106 mg/dL (70-110)
[2022-04-14] MEDS: INSULIN ASPART (NovoLOG) 100 UNIT/ML VIAL SQ SCH ×4 (06:32→21:44)
[2022-04-14] MEDS: MIDODRINE 5 MG TAB PO SCH ×3 (06:40→21:09)
[2022-04-14] MEDS: LEVOTHYROXINE 88 MCG TAB PO SCH (06:40)
[2022-04-14] MEDS: ACETAMINOPHEN TAB 500 MG TAB PO SCH ×4 (06:40→23:10)
--- NOTE | 2022-04-14 07:43 | P.PN ---
Progress Note - Text Progress Note Date: 04/14/22 Pt s/e this am. She is laying in her own stool once again. Upon rolling her and looking at her wound today the mid-portion completely opened up and has dehiscent. There is no purulence from wound but drainage. No stool in wound at this time but she has been laying in her stool for unknown amount of time now. Sent message to the family and will board her urgently for washout, exploration and closure today. NPO Clean her up OR today
[2022-04-14] MEDS ORDERED: VANCOMYCIN IV PER PHARMACY 1 EACH MISC MISCELLANE PRN (07:49)
--- NOTE | 2022-04-14 07:55 | CDI ---
Documentation Clarification Form Date: 04/12/2022 9:22:00 AM From: Sheila Dennis RN,CCDS Admit Date: 02/24/2022 5:34:00 AM Patient Name: Gabrielle Gee Visit Number: [id number] Discharge Date: ATTENTION: The Clinical Documentation Specialists (CDI) and [facility] Coding Staff appreciate your assistance in clarifying documentation. Please respond to the clarification below the line at the bottom and electronically sign. The CDI & [facility] Coding staff will review the response and follow-up if needed. Please note: Queries are made part of the Legal Health Record. If you have any questions, please contact the author of this message via ITS. Dr. Codey Schnedier A buttock pressure ulcer stage II is documented in the ongoing nursing wound care assessment starting on 03/29/2022. Additional clarification regarding the stage of the pressure ulcer is requested. History/Risk Factors: Neurogenic claudication, Lumbar spondylosis, Atrial Fibrillation Atrial Flutter, Hypertension, chronic low back pain Clinical Indicators: 71-year-old female underwent extensive lumbar spine surgery on 02/24/22. On 03/18/22 attending progress notes has she is getting sore in her sacral region and so we will address this. 03/29 Nursing wound assessment Buttock pressure injury stage II Location: Sacral region Wound description: No drainage buttock pressure injury stage II Treatment: Meplex pads on sacral region with barrier cream. Continue to turn. Sit at different angles. Please clarify the stage of pressure ulcer on buttock, sacral region, if known: [ ] Deep tissue injury [insert location] [ ] Stage 1 Pressure Ulcer [insert location] [ x ] Stage 2 Pressure Ulcer [gluteal] [ ] Unstageable Pressure ulcer [insert location] [ ] Other condition, please specify [ ] Unable to determine. Clinical Definitions: Stage 1 Pressure Ulcer: intact skin, non-blanching redness of local area Stage 2 Pressure Ulcer: Partial thickness, loss of dermis, pink wound bed Stage 3 Pressure Ulcer: Full thickness tissue loss Stage 4 Pressure Ulcer: Full thickness tissue loss with exposed bone, tendon, or muscle. Unstageable pressure ulcer: Full thickness tissue loss in which the base of the ulcer is covered by slough (yellow, mccarty, batres, green or brown) and/or eschar (mccarty, brown or black) in the wound bed. (Template Last Revised: May 2020) MTDD
[2022-04-14 08:20] LABS: African American GFR (CKD) >90 (>60 ml/min/1.73 sqM); Anion Gap 3 mmol/L; Blood Urea Nitrogen 22 mg/dL (7-17); Calcium 7.1 mg/dL (8.4-10.2); Carbon Dioxide 23 mmol/L (22-30); Chloride 113 mmol/L (98-107); Glucose 92 mg/dL (74-99); Magnesium 2.3 mg/dL (1.6-2.3); Non-African American GFR(CKD) >90 (>60 ml/min/1.73 sqM); Potassium 3.4 mmol/L (3.5-5.1); Sodium 139 mmol/L (137-145)
[2022-04-14] MEDS: CEFEPIME 1 GM in SODIUM CHLORIDE 0.9% 50 ML IVPB SCH ×3 (09:52→23:10)
[2022-04-14] MEDS: LACTULOSE 20 GM/30 ML CUP PO SCH ×2 (09:55→22:09)
[2022-04-14] MEDS: METOPROLOL TARTRATE 50 MG TAB PO SCH ×2 (09:55→22:09)
[2022-04-14] MEDS: AMIODARONE 200 MG TAB PO SCH (09:56)
[2022-04-14] MEDS: MAGNESIUM OXIDE 400 MG TAB PO SCH (09:56)
[2022-04-14] MEDS: GABAPENTIN 400 MG CAP PO SCH ×3 (09:56→22:09)
[2022-04-14] MEDS: ATORVASTATIN 20 MG TAB PO SCH (09:56)
[2022-04-14] MEDS: SODIUM BICARBONATE TAB 650 MG TAB PO SCH ×2 (09:56→22:09)
[2022-04-14] MEDS: MAG HYDROX/AL HYDROX/SIMETH 30 ML, diphenhydrAMINE ELIXIR 75 MG, LIDOCAINE VISCOUS 2% 3... PO SCH ×9 (10:00→22:03)
[2022-04-14] MEDS: DIGOXIN 250 MCG TAB PO SCH (10:00)
[2022-04-14] MEDS: DULoxetine HCL 60 MG CAPSULE.DR PO SCH (10:16)
[2022-04-14] MEDS: SIMETHICONE 40 MG/0.6 ML DROPS 2,000 MG/30 ML BOTTLE PO SCH ×4 (10:16→22:39)
[2022-04-14] MEDS: PANTOPRAZOLE 40 MG/10 ML VIAL IVP SCH ×2 (10:35→21:47)
--- NOTE | 2022-04-14 10:40 | P.PN ---
Subjective Progress Note Date: 04/14/22 Patient is a 71 yo CF with a hx of A fib s/p ablation, GERD, hypertension, dyslipidemia, and right diaphragmatic paralysis who presented for T10 to Pelvis decompression and fusion with revision. Course complicated by significant blood loss. Patient was on vasopressors, also received TXA gtt. She received 7 L of lactated Ringer's. She received 1 amp of sodium bicarb intaop. She also received albumin. Patient then had a cardiac arrest. During the case she developed A. fib with RVR and then quickly transitioned into bradycardia with a low end-tidal CO2. She received 0.4 of atropine and CPR was started. She received epinephrine 0.5. She achieved ROSC. Total down time was less than 5 minutes. She was extubated on 02/25. She continued to do well but struggled with pain. She was downgraded from ICU on 03/03. On 03/06/22 patient was noted to have a significant drop in hemoglobin from 10.0 down to 7.5 and upon reevaluation on 03/07 was found to have hemoglobin of 5.4, patient required multiple transfusions. She has received a total of 7 units PRBCs and 1 unit of platelets. She underwent a CT abdomen and pelvis and was found to have a large right chest hematoma dilated small bowel concerning for ileus. Patient was evaluated by cardiothoracic surgery and they recommended conservative management. On 03/07, patient was noted to be hypotensive with elevated WBC count of 42.3, with worsening renal function and hyperkalamia. Patient was treated with NS bolus, IV insulin/D50, Albuterol and sodium bicarbonate. She was transferred back to the ICU for septic shock requiring Levophed. Patient was started on Vancomycin and Cefepime. Blood and urine cultures were obtained and positive for Enterobacter. Infectious disease was consulted and patient was continued on Cefepime for treatment of Enterobacter UTI with secondary bacteremia and Vancomycin was discontinued. Patient was later weaned off of vasopressors and again transferred out of the ICU. Patient was started on Lasix for treatment of acute on chronic systolic heart failure with EF of 35-40%. Patient continued on Protonix for GI prophylaxis, amiodarone and metoprolol for atrial fibrillation with RVR sodium bicarb for treatment of metabolic acidosis. Pt's Xarelto remains hold at this time. Patient was evaluated by PMR and is currently not a candidate for inpatient rehab. She has been cleared by orthopedic surgery to start working with physical therapy. On 03/26/22 patient was again found to have elevating leukocytosis and repeat Wound cultures were obtained. Wound cultures were positive for pseudomonas aeruginosa, enterococcus fasciculus, and Patsy albicans. Patient to continue with Zosyn per culture and sensitivity report and as recommended by infectious disease as this may be contamination/colonization however patient is a high risk of infection so we will continue with empiric antibiotic therapy. Overnight on 03/28/22 patient again developed episodes of melena and at that time Dr. Arce, general surgeon was re-consulted. CT abdomen and pelvis revealing bilateral hydronephrosis unable to rule out obstructive etiology, concerns for fecal impaction, and persistent previously known right anterior chest wall hematoma. General surgery following and reevaluated patient secondary to concerns of fecal impaction and started patient on lactulose. Wiley catheter was inserted secondary to bi lateral hydronephrosis and patient was evaluated by urologist recommending continuation of Wiley catheter as bilateral hydronephrosis is believed to be resulting secondary to urinary retention. On the evening of 04/03/21 patient with continued atrial tachycardia and hypotension and unable to take metoprolol secondary to low blood pressures. Patient had episode of hematochezia along with large blood clot and was transferred back to the ICU. Had bedside manual disimpaction with general surgery. Also has a posterior anal fissure could likely because of current bleeding. On a bowel regimen. Hemoglobin continues to down trend. Requiring further blood transfusions. Hemoglobin currently stable. Hemodynamically stable. Patient pending transfer for GI at [facility]. Subjective: Pt had significant wound dehiscence today, seen and pictured at bedside. Discussed with nursing, and orthopedic surgery, plan is for return to OR today for washout and revision. Suspicion of CSF leak and need for repeat dural repair. Discussed with ID, will restart vancomycin, cefepime, and blood cult ures, requesting OR cultures as well. Vitals Signs Reviewed. Gen: awake, alert HEENT: normocephalic, atraumatic, good hearing acuity, moist mucous membranes Resp: good air exchange, breathing comfortably with no accessory muscle use CVS: good distal perfusion x 4, tachycardic GI: soft, NTTP, distended, +FMS : no SPT, no CVAT, wiley catheter is present MSK: no pitting edema, no clubbing, wound is dehisced down to spine, does not appear to be foul smelling or have pustular discharge, Neuro: non-focal, moving all extremities Psych: cooperative, euthymic mood Assessment and Plan: GI bleeding, likely lower Acute abdominal pain - resolved Fecal impaction, status post manual disimpaction Posterior Anal fissure -CT abdomen and pelvis concerning for possible fecal impaction. -Gen. surgery was consulted for reevaluation -Continue with Protonix 40 mg IVP twice daily -Hemoglobint stable -Requiring more blood transfusions -On bowel regimen -Patient to be transferred for GI Atrial tachycardia/fibrillation with RVR Hypotension -not on pressors Status post Cardiac arrest with ROSC Acute on chronic systolic heart failure -Cardiology following -Continuous telemetry monitoring. -Oral amiodarone and digoxin, and metoprolol -Diuretics held -also on Midodrine -Holding anticoagulation due to ongoing GI bleed Poor nutritional intake Severe protein calorie malnutrition Anasarca -Patient started on mirtazapine -Patient getting tube feeds Hypokalemia- resolved Septic shock - resolved Enterobacter cloacae UTI with secondary bacteremia - resolved Lactic acidosis Leukocytosis -resolved Patsy UTI -Infectious disease following and managing antibiotic course at this time. -ID has patient on Eraxis Bilateral hydronephrosis, likely secondary to urinary retention -CT abdomen and pelvis revealing bilateral hydronephrosis unable to rule out obstructive etiology. -Renal function stable -Urology following, recommending continuation of Wiley catheter Prerenal azotemia, improving Hyponatremiaresolving Hyperkalemiaresolved Hypokalemiaresolved Metabolic acidosis, resolved -Continue sodium bicarb 650 mg twice a day -Nephrology following. Prediabetes with hyperglycemia, now hypoglycemia -Likely steroid induced -A1c is 6 -Continue with sliding scale Right breast hematoma - stable T10 to pelvis decompression with fusion Post-op pain -Management per primary admitting Orthopedic surgery team including DVT prophylaxis, pain management, wound/dressing care, weightbearing, and PT/OT . -PT/OT following. -return to OR on 04/14 for revision and washout, site is dehisced but does not appear to be infected since no foul smell or pustular discharge. OR cultures to be obtained. Right diaphragmatic paralysis -No interventions for her pulmonology Hyperlipidemia -atorvastatin. History of hypertension -Currently On Midodrine for episodes of hypotension Transaminitis -Likely ischemic hepatitis. -Resolved Thank you for allowing us to participate in the care of this pleasant patient. Do not hesitate to contact us with questions. Someone can be reached from the [facility] hospitalist group all hours of the day at [phone] or via perfect serve. Objective - Vital Signs Vital signs: Vital Signs Temp 98.4 F 04/14/22 06:40 Pulse 74 04/14/22 06:40 Resp 19 04/14/22 06:40 BP 123/76 04/14/22 06:40 Pulse Ox 95 04/14/22 07:40 FiO2 2 04/04/22 05:29 Intake & Output 04/13/22 04/14/22 04/14/22 18:59 06:59 18:59 Intake Total 400 Output Total 1250 Balance 400 -1250 Intake: IV 400 Sodium Chloride 0.9% 1, 400 000 ml @ 50 mls/hr IV . Q20H [facility] Rx#:[id number] Output: Urine 950 Stool 300 Other: Voiding Method Indwelling Catheter Indwelling Catheter ABP, PAP, CO, CI - Last Documented Arterial Blood Pressure 158/70 - Labs CBC & Chem 7: 04/13/22 04:10 04/14/22 05:44 Labs: Abnormal Lab Results - Last 24 Hours (Table) 04/13/22 04/14/22 Range/Units 15:53 05:44 Potassium 3.4 L (3.5-5.1) mmol/L Chloride 113 H (98-107) mmol/L BUN 22 H (7-17) mg/dL Creatinine 0.38 L (0.52-1.04) mg/dL POC Glucose (mg/dL) 132 H (70-110) mg/dL Calcium 7.1 L (8.4-10.2) mg/dL
--- NOTE | 2022-04-14 10:50 | P.PN ---
Subjective Progress Note Date: 04/14/22 HISTORY OF PRESENT ILLNESS This is a 71-year-old female patient presented with a massive GI bleed, current ly in atrial fibrillation with poorly controlled ventricular rate. Patient is not a candidate for anticoagulation. She has been on amiodarone, digoxin metoprolol at 100 mg twice daily she is also been started on midodrine for hypotension increased to 10 mg 3 times daily. Today, patient remains in atrial fibrillation with ventricular rate in the 110s to 120s. Verapamil will be added PHYSICAL EXAMINATION Gen: This is a morbidly obese 71-year-old female VS: Heart rate 110 to 120s, blood pressure 123/76, pulse ox 94% on room air, afebrile HEENT: Head is atraumatic, normocephalic. Pupils equal, round. Sclerae is anicteric. LUNGS: Bilateral rhonchi. No intercostal retractions. HEART: Irregular rate and rhythm. No murmur. EXTREMITIES: 1+ pedal edema. ASSESSMENT Persistent atrial fibrillation with poorly controlled ventricular rate GI bleed Hypertension PLAN Continue metipranolol at 100 mg twice daily Add verapamil 40 mg twice daily Also continue amiodarone and digoxin at current doses Continue Midodrine at 10 mg 3 times daily Further recommendations to follow based upon clinical course Nurse practitioner note has been reviewed, I agree with documented findings and plan of care. Patient was seen and examined. Objective - Vital Signs Vital signs: Vital Signs Temp 98.4 F 04/14/22 06:40 Pulse 74 04/14/22 06:40 Resp 19 04/14/22 06:40 BP 123/76 04/14/22 06:40 Pulse Ox 95 04/14/22 07:40 FiO2 2 04/04/22 05:29 Intake & Output 04/13/22 04/14/22 04/14/22 18:59 06:59 18:59 Intake Total 400 Output Total 1250 Balance 400 -1250 Intake: IV 400 Sodium Chloride 0.9% 1, 400 000 ml @ 50 mls/hr IV . Q20H [facility] Rx#:[id number] Output: Urine 950 Stool 300 Other: Voiding Method Indwelling Catheter Indwelling Catheter ABP, PAP, CO, CI - Last Documented Arterial Blood Pressure 158/70 - Labs CBC & Chem 7: 04/13/22 04:10 04/14/22 05:44 Labs: Abnormal Lab Results - Last 24 Hours (Table) 04/13/22 04/14/22 Range/Units 15:53 05:44 Potassium 3.4 L (3.5-5.1) mmol/L Chloride 113 H (98-107) mmol/L BUN 22 H (7-17) mg/dL Creatinine 0.38 L (0.52-1.04) mg/dL POC Glucose (mg/dL) 132 H (70-110) mg/dL Calcium 7.1 L (8.4-10.2) mg/dL
[2022-04-14 11:17] LABS: Glucose,Whole Blood 97 mg/dL (70-110)
[2022-04-14] MEDS: VANCOMYCIN 2,000 MG in SODIUM CHLORIDE 0.9% 500 ML 500 ML IVPB SCH ×2 (12:02→21:47)
[2022-04-14] MEDS: VERAPAMIL 40 MG TAB PO SCH ×2 (12:03→22:39)
[2022-04-14] MEDS: SODIUM CHLORIDE 0.9% 1,000 ML IV SCH (12:20)
--- NOTE | 2022-04-14 13:50 | P.PN ---
Progress Note - Text Progress Note Date: 04/14/22 Spine Surgery Clinical and Risk Review Gabrielle Gee is a 71 yo female presenting for evaluation of low back pain, continued drainage, wound dehiscence. It was my pleasure to have seen and examined Gabrielle. Today we have had a chance to go over subjective complaints, physical examination findings and treatments including the natural course history without intervention and various interventional options. On physical exam, Gabrielle demonstrates Low back wound dehiscence. I have explained to the patient that as their condition progresses it will cause further neurological deficits and eventual paralysis. Based on the patients imaging, physical exam, and the rapid progression and disabling nature of their symptoms, at this time I recommend surgery in the form or a: Low back incision irrigation and debridment with exploration, wound vac placement possible dural repair. I discussed the risk and benefits of this procedure at length with Gabrielle. The patient and her family at bedside including her sons agreed to considered pursuing the procedure abovementioned. Prior to surgery, she should follow up with her PCP (Cardio, ID, IM etc) for clearance. Questions were invited and answered, and the patient wishes to proceed as outlined below. Currently, I am recommendin. Low back incision irrigation and debridment with exploration, wound vac placement possible dural repair 2. Med clearance for surgery 3. Review of surgical risks and benefits as well as an educational packet on the proposed surgical procedure. Risks: All surgical procedures come with inherent risks, including those related to pos itioning, anesthesia, intraoperative findings, and postoperative complications. It is important to understand that surgery does not come with any guarantee of a successful outcome as complications and adverse events are always possible. The patient was given a handout in office today discussing the surgical procedure and risks associated with the intervention, both of which were discussed with the patient. These risks include but are not limited to the following: * Experiencing same, different or even worse symptoms in back, neck, arms, or legs compared to before surgery. * Requiring further surgery or other forms of treatment presently or at some time in the future at same or other levels of the intended spine surgery. * On an extreme but fortunately relatively rare basis severe complication such as blindness, stroke, heart attack, temporary and/or permanent nerve injury, paralysis, coma, or may occur, sometimes without known explanation. * Surgical complications may include but are not limited to risk of infection, fluid accumulation in the surgical dissection site, including a seroma or hematoma, that requires additional surgery, wound drainage, bleed ing, new numbness or weakness, vision changes/loss, spinal fluid leakage, non- healing and/or infected incision, headaches, difficulty or inability to swallow, hoarseness, hemopneumothorax, pneumothorax, impotence, retrograde ejaculation, vaginal dryness; injury to nerves, spinal cord, blood vessels, lymphatics or other vital organs (i.e., bowel injury, injury to the great vessels); heterotopic bone formation; complications related to the hardware such as screws, rods, cages including misplaced hardware, device failure, instrumentation at the wrong spine level, hardware fracture/breakage, or jones rdware loosening; vertebral failure of the spinal column above or below the newly placed hardware; retained surgical instrumentations or devices and the need for further surgery. * Medical risks of the planned spine surgery include but are not limited to generalized Infections to the whole body or local areas outside of the surgical site (sepsis), heart attack, bleeding, anaphylaxis, meningitis, seizure, epilepsy, hearing loss, burn manning, laceration of the head or other areas of the body, bruising, hypersensitivity of the skin, bladder over distension; allergic reaction; shoulder injury related to positioning; fat, blood and air clots to other areas of the body like heart, lungs, brain; failure of internal organs such as lungs, kidneys, liver and excessive bleeding. If blood transfusions are necessary, note that transfusions may cause intolerance reactions such as anaphylaxis or other complex reactions. * Despite best efforts, the results of spine surgery might not heal in terms of bone, soft tissues such as skin, fascia, ligaments, and joints. Additionally, in order to achieve best possible results, spine surgery may be carried out beyond the initially planned levels and involve decompression, fusion including insertion of hardware at levels other than the original intended area of surgical interest change some portions of the procedure in order to ensure the best possible outcomes. * With spine surgery and spinal fusion, there are different off label uses of instrumentation (devices, implants and hardware) as well as biological substances (bone morphogenic proteins, demineralized bone matrix) as well as using extra bone from allograft sources (i.e. cadaver bone) or autograft (iliac crest bone, ribs, or the spine itself). The patient has been given information about these practices and their inherent risks and benefits. The patient has had a chance to review all the listed information, has been given print outs detailing this information, and has had all his/her questions answered to their satisfaction. It was my pleasure to have seen and examined Gabrielle Gee. In our visit today we have had a chance to go over my understanding of our patient's current condition, the natural course history without intervention and various interventional options. Questions were invited and answered, and the patient wishes to proceed as outlined above. I have seen and examined the patient for 25 minutes and we have spent more than 50% of the time in repeat and detailed counseling about the patient's condition, its natural course history with out and as much as can be predicted with surgery and re-review of various surgical treatment options. In conclusion, Gabrielle Gee and her family, and sons requested we proceed with the above suggested surgery and are willing to accept risks and limitations of the suggested surgery as nature of the disease process and our best attempts at treatment for the condition. Thank you again for allowing us to be part of your patient's care. Please don't hesitate to contact me if you have any further questions. Signed and authenticated by: Thom Ricardo [facility] [address] [facility], [address] [address]
[2022-04-14 14:09] LABS: Glucose,Whole Blood 88 mg/dL (70-110)
[2022-04-14 14:09] LABS: Anisocytosis (M) 2+; Basophils # (A) 0.03 X 10*3/uL (0.00-0.10); Basophils % (A) 0.3 %; Eosinophils # (A) 0 X 10*3/uL (0.04-0.35); Eosinophils % (A) 0 %; HCT 28.2 % (37.2-46.3); HGB 8.4 g/dL (12.0-15.0); Immature Grans, Automated 4.8 %; Immature Platelet Fraction 14.3 % (1.1-6.1); Lymphocytes # (A) 2.56 X 10*3/uL (0.90-5.00); Lymphocytes % (A) 23.9 %; MCH 30.1 pg (27.0-32.0); MCHC 29.8 g/dL (32.0-37.0); MCV 101.1 fL (80.0-97.0); Mean Platelet Volume 13.6 fL (9.5-12.2); Monocytes # (A) 0.49 X 10*3/uL (0.20-1.00); Monocytes % (A) 4.6 %; NRBC Per 100 WBC 6.4 /100 WBCS (0.0-0.0); Neutrophils # (A) 7.13 X 10*3/uL (1.80-7.70); Neutrophils % (A) 66.4 %; Platelet Count 83 X 10*3/uL (140-440); RBC 2.79 X 10*6/uL (4.10-5.20); RDW 24.5 % (11.5-14.5); WBC 10.73 X 10*3/uL (4.50-10.00)
[2022-04-14] MEDS ORDERED: IV FLUID CONTINUATION 1,000 ML IV ONE (14:14)
[2022-04-14] MEDS ORDERED: VANCOMYCIN 1,000 MG VIAL ONE (14:44)
[2022-04-14] MEDS ORDERED: KETAMINE 10 MG/ML 20 ML VIAL ONE (14:44)
[2022-04-14] MEDS ORDERED: ROCURONIUM 10 MG/ML (5 ML VIAL) IV ONE (14:44)
[2022-04-14] MEDS ORDERED: PHENYLEPHRINE-0.9% NACL SYG 1,000 MCG/10 ML SYRINGE ONE (14:44)
[2022-04-14] MEDS ORDERED: MIDAZOLAM 2 MG/2 ML VIAL ONE (14:44)
[2022-04-14] MEDS ORDERED: ETOMIDATE 2 MG/ML 10 ML VIAL ONE (14:44)
[2022-04-14] MEDS ORDERED: CALCIUM CHLORIDE 100 MG/ML 10 ML SYRINGE ONE (14:44)
[2022-04-14] MEDS ORDERED: LIDOCAINE 2% INJ 20 MG/ML (2 ML VIAL) ONE (14:44)
[2022-04-14] MEDS ORDERED: POTASSIUM CHLORIDE 20 MEQ in WATER FOR INJECTION 1 100ML.BAG IVPB SCH (15:00)
[2022-04-14] MEDS ORDERED: POTASSIUM CHLORIDE 10 MEQ in WATER FOR INJECTION 1 100ML.BAG IVPB STA (15:36)
--- NOTE | 2022-04-14 15:36 | P.PN ---
Subjective Progress Note Date: 04/14/22 Principal diagnosis: UTI and bacteremia Patient is a 71-year-old female with a past medical history difficult for atrial fibrillation flutter hypertension hyperlipidemia hypothyroidism right breast cancer electively admitted to the hospital more than 2 weeks ago 022 for T10 to lumbar spine revision decompression and posterior lateral interbody fusion, patient did have a episode of hypotension and elevated white count requiring admission to the ICU patient did have a positive UA and gram- negative bacteremia and is scheduled for exploration of the thoracolumbar incision completed on 03/09/2022 with apparently no evidence of any abscess On today's evaluation that is 04/14/2022 the patient did have a low-grade fever 100.1 last night, the patient is afebrile this morning the patient is hemodynamically stable not on any pressor support and she is breathing comfortably on room air patient was noticed to have a dehiscence of the lower lumbar sacral incision and apparently was some stool contamination and possible dural leak which the patient scheduled for surgical washout and culture this morning, patient denies having any chest pain no nausea no vomiting no abdominal pain Objective - Vital Signs Vital signs: Vital Signs Temp 98.4 F 04/14/22 06:40 Pulse 74 04/14/22 06:40 Resp 19 04/14/22 06:40 BP 123/76 04/14/22 06:40 Pulse Ox 95 04/14/22 07:40 FiO2 2 04/04/22 05:29 Intake & Output 04/13/22 04/14/22 04/14/22 18:59 06:59 18:59 Intake Total 400 Output Total 1250 Balance 400 -1250 Intake: IV 400 Sodium Chloride 0.9% 1, 400 000 ml @ 50 mls/hr IV . Q20H [facility] Rx#:[id number] Output: Urine 950 Stool 300 Other: Voiding Method Indwelling Catheter Indwelling Catheter ABP, PAP, CO, CI - Last Documented Arterial Blood Pressure 158/70 - Exam GENERAL DESCRIPTION: An elderly female lying in bed in no distress RESPIRATORY SYSTEM: Unlabored breathing , decreased breath sounds at bases HEART: S1 S2 regular rate and rhythm , ABDOMEN: Soft , no tenderness Lower lumbar spine incision is currently dressed has been opened twice per the nursing staff pictures were reviewed with evidence of dehiscence of the wound EXTREMITIES: Diffuse swelling bilateral lower extremity 1 - Labs CBC & Chem 7: 04/14/22 05:44 04/14/22 05:44 Labs: Abnormal Lab Results - Last 24 Hours (Table) 04/13/22 04/14/22 Range/Units 15:53 05:44 Potassium 3.4 L (3.5-5.1) mmol/L Chloride 113 H (98-107) mmol/L BUN 22 H (7-17) mg/dL Creatinine 0.38 L (0.52-1.04) mg/dL POC Glucose (mg/dL) 132 H (70-110) mg/dL Calcium 7.1 L (8.4-10.2) mg/dL Assessment and Plan (1) Sepsis Current Visit: Yes Status: Acute Code(s): A41.9 - SEPSIS, UNSPECIFIED ORGANISM SNOMED Code(s): 05630877 Plan: 1-patient with a cath associated UTI urine has been positive for Patsy albicans, patient to continue with Eraxis , 2patient now with evidence of surgical wound dehiscence of the lumbar spine and concern for possible spinal leak blood culture had been obtained this morning and the patient was started on broad-spectrum antibiotic the form of vancomycin and cefepime while waiting for the cultures to finalize and monitor clinical course closely case was discussed in detail with the medical team Time with Patient: Less than 30
--- NOTE | 2022-04-14 15:43 | P.PN ---
Subjective Progress Note Date: 04/14/22 CHIEF COMPLAINT: Spinal surgery HISTORY OF PRESENT ILLNESS: Surgical service following in regards to GI bleed. Patient is currently on the cardiac floor. Patient scheduled today for surgical washout and cultures of her spine with Dr. Alexander. Patient continues to complain of right upper quadrant abdominal pain. She has fecal management system in place with loose stools. No blood noted in the stools. Low-grade temp of 100 last night. WBC is 10.73 Hgb is 8.4 platelets are 83 sodium is 139 potassium 3.4 creatinine 0.38 C. diff negative. PHYSICAL EXAM: VITAL SIGNS: Reviewed. GENERAL: Well-developed in no acute distress. HEENT: No sclera icterus. Extraocular movements grossly intact. Moist buccal mucosa. Head is atraumatic, normocephalic. ABDOMEN: Soft. Obese. Nondistended. Tenderness to palpation right upper quadrant NEUROLOGIC: Alert and orientated 3. Answer questions appropriately. ASSESSMENT: 1. Acute GI bleed 2. Posterior anal fissure with bleeding 3. Fecal impaction and constipation 4. Lumbar decompression/fusion and then with washout and dural repair 5. Cardiac arrest 6. EGD on 03/19/2022 that showed mild gastritis and esophagitis no active bleeding 7. Right upper quadrant Abdominal pain. History of cholecystectomy PLAN: -Discussed case with dietitian. Will change patient's nutrition support to TPN. Discontinue the tube feeds via NG tube -Continue lactulose -Continue simethicone gas drops -Continue to monitor hemoglobin -Continue monitoring for any signs or symptoms of bleeding -Continue PPI -Continue to hold anticoagulation -If bleeding recurs can plan for EGD and colonoscopy Physician Patternmaker Apprentice Wood note has been reviewed by physician. Signing provider agrees with the documented findings, assessment, and plan of care. I have personally seen and examined the patient, reviewed the PLOW SHAKER /PAs history, exam and MDM and agree with the assessment and plan as written. Based on total visit time, I have performed more than 50% of the visit. As above: Patient requiring surgery for her back incision. No further bleeding. So some abdominal discomfort. Continue stool softeners. Monitor for repeat bleeding. Nutritional status remains poor. Given the need for surgery today I agree with proceeding with TPN for now. Objective - Vital Signs Vital signs: Vital Signs Temp 98.4 F 04/14/22 06:40 Pulse 85 04/14/22 13:57 Resp 16 04/14/22 13:57 BP 127/72 04/14/22 13:57 Pulse Ox 94 L 04/14/22 13:57 FiO2 2 04/04/22 05:29 Intake & Output 04/13/22 04/14/22 04/14/22 18:59 06:59 18:59 Intake Total 400 100 Output Total 1250 Balance 400 -1250 100 Weight 127.777 kg Intake: IV 400 100 Sodium Chloride 0.9% 1, 400 000 ml @ 50 mls/hr IV . Q20H [facility] Rx#:[id number] Output: Urine 950 Stool 300 Other: Voiding Method Indwelling Catheter Indwelling Catheter ABP, PAP, CO, CI - Last Documented Arterial Blood Pressure 158/70 - Labs CBC & Chem 7: 04/14/22 05:44 04/14/22 05:44 Labs: Abnormal Lab Results - Last 24 Hours (Table) 04/13/22 04/14/22 04/14/22 Range/Units 15:53 05:44 05:44 WBC 10.73 H (4.50-10.00) X 10*3/uL RBC 2.79 L (4.10-5.20) X 10*6/uL Hgb 8.4 L (12.0-15.0) g/dL Hct 28.2 L (37.2-46.3) % MCV 101.1 H (80.0-97.0) fL MCHC 29.8 L (32.0-37.0) g/dL RDW 24.5 H (11.5-14.5) % Plt Count 83 L (140-440) X 10*3/uL Plt Count Comment DECREASED A MPV 13.6 H (9.5-12.2) fL Absolute Nucleated RBC 0.69 H (0.00-0.00) X 10*3/uL Immature Gran # 0.52 H (0.00-0.04) X 10*3/uL Eosinophils # 0 L (0.04-0.35) X 10*3/uL NRBC/100 WBC Diff 6.4 H (0.0-0.0) /100 WBCS Immature Plt Fraction 14.3 H (1.1-6.1) % Potassium 3.4 L (3.5-5.1) mmol/L Chloride 113 H (98-107) mmol/L BUN 22 H (7-17) mg/dL Creatinine 0.38 L (0.52-1.04) mg/dL POC Glucose (mg/dL) 132 H (70-110) mg/dL Calcium 7.1 L (8.4-10.2) mg/dL Phosphorus (2.5-4.5) mg/dL 04/14/22 Range/Units 05:44 WBC (4.50-10.00) X 10*3/uL RBC (4.10-5.20) X 10*6/uL Hgb (12.0-15.0) g/dL Hct (37.2-46.3) % MCV (80.0-97.0) fL MCHC (32.0-37.0) g/dL RDW (11.5-14.5) % Plt Count (140-440) X 10*3/uL Plt Count Comment MPV (9.5-12.2) fL Absolute Nucleated RBC (0.00-0.00) X 10*3/uL Immature Gran # (0.00-0.04) X 10*3/uL Eosinophils # (0.04-0.35) X 10*3/uL NRBC/100 WBC Diff (0.0-0.0) /100 WBCS Immature Plt Fraction (1.1-6.1) % Potassium (3.5-5.1) mmol/L Chloride (98-107) mmol/L BUN (7-17) mg/dL Creatinine (0.52-1.04) mg/dL POC Glucose (mg/dL) (70-110) mg/dL Calcium (8.4-10.2) mg/dL Phosphorus 2.0 L (2.5-4.5) mg/dL
[2022-04-14] MEDS ORDERED: VANCOMYCIN 1,000 MG VIAL MISCELLANE ONE (15:55)
[2022-04-14] MEDS: ANIDULAFUNGIN 100 MG in SODIUM CHLORIDE 0.9% 100 ML IVPB SCH (16:18)
[2022-04-14] MEDS ORDERED: CALCIUM GLUCONATE IV SCH ×8 (17:00)
[2022-04-14] MEDS ORDERED: [UNRECOGNIZED DRUG - OTHER] IV SCH ×8 (17:00)
[2022-04-14] MEDS ORDERED: SODIUM ACETATE IV SCH ×8 (17:00)
[2022-04-14] MEDS ORDERED: POTASSIUM ACETATE IV SCH ×8 (17:00)
[2022-04-14] MEDS ORDERED: propofoL 100 ML IV ONE (17:38)
[2022-04-14] MEDS ORDERED: IPRATROPIUM-ALBUTEROL 3 ML NEB INHALATION PRN (17:39)
[2022-04-14 17:44] LABS: Glucose,Whole Blood 80 mg/dL (70-110)
--- NOTE | 2022-04-14 18:02 | XR ---
EXAMINATION TYPE: XR chest 1V portable DATE OF EXAM: 04/14/2022 COMPARISON: Yesterday HISTORY: Respiratory failure TECHNIQUE: FINDINGS: Endotracheal tube is 4 cm from the adiel. There is infiltrate and atelectasis right lung b ase. There is some patchy linear infiltrate left lower lobe. No definite heart failure. There is left subclavian catheter with tip in the superior vena cava. There is thoracolumbar spine multilevel fusi on surgery. There is elevated right diaphragm. IMPRESSION: Compared to yesterday there is increasing infiltrate and atelectasis in the lower lung fi elds bilaterally. No obvious heart failure.
[2022-04-14] MEDS: IPRATROPIUM-ALBUTEROL 3 ML NEB INHALATION SCH ×2 (18:09→23:46)
[2022-04-14] MEDS ORDERED: ALBUMIN HUMAN 5% 250 ML IVPB ONE (18:11)
[2022-04-14] MEDS: POTASSIUM PHOSPHATE 10 MMOL in SODIUM CHLORIDE 0.9% 100 ML IV SCH ×2 (18:27→18:29)
[2022-04-14] MEDS: NOREPINEPHRINE 8 MG in SODIUM CHLORIDE 0.9% 250 ML IV SCH (18:43)
[2022-04-14] MEDS: ALBUMIN HUMAN 25% 50 ML in EMPTY BAG 1 BAG IVPB SCH ×2 (18:55→21:11)
[2022-04-14] MEDS ORDERED: SODIUM CHLORIDE 0.9% 500 ML 500 ML IV ONE (18:57)
[2022-04-14 20:04] LABS: ABG Base Excess -3.1 mmol/L; ABG HCO3 22 mmol/L (21-25); ABG PCO2 39 mmHg (35-45); ABG PH 7.37 (7.35-7.45); ABG PO2 330 mmHg (83-108); ABG TCO2 23 mmol/L (19-24); Allen Test Performed? Yes
[2022-04-14 20:09] LABS: African American GFR (CKD) >90 (>60 ml/min/1.73 sqM); Albumin 1.7 g/dL (3.5-5.0); Anion Gap 1 mmol/L; Blood Urea Nitrogen 21 mg/dL (7-17); Calcium 7.3 mg/dL (8.4-10.2); Carbon Dioxide 23 mmol/L (22-30); Chloride 116 mmol/L (98-107); Glucose 105 mg/dL (74-99); Non-African American GFR(CKD) >90 (>60 ml/min/1.73 sqM); Potassium 3.3 mmol/L (3.5-5.1); Sodium 140 mmol/L (137-145)
--- NOTE | 2022-04-14 20:10 | P.PN ---
Progress Note - Text Progress Note Date: 04/14/22 Pt s/e in ICU. She is vented, sedated and stable at this time. Spoke to her family at length about the procedure and what we needed to do. They are at bedside now with Medicine discussing her care. Her VSS at this time requiring small amounts of levo for pressure support. Venilated. Nursing at bedside. Dressing is CDI. Warren and Flexoseal in place and functioning. Pain controlled. Not following commands as she is sedated at this time. Plan will be to try for extubation tomorrow AM.
[2022-04-14 20:16] LABS: Anisocytosis Marked; HCT 24.5 % (34.0-46.0); HGB 7.7 gm/dL (11.4-16.0); Hypochromasia Moderate; MCH 30.8 pg (25.0-35.0); MCHC 31.6 g/dL (31.0-37.0); MCV 97.7 fL (80.0-100.0); Macrocytosis Moderate; Mean Platelet Volume 10.7; Poikilocytosis Marked; RBC 2.51 m/uL (3.80-5.40); RDW 24.6 % (11.5-15.5)
[2022-04-14 20:18] LABS: Platelet Count 100 k/uL (150-450)
[2022-04-14 20:25] LABS: Polychromasia Present
[2022-04-14] MEDS ORDERED: SODIUM CHLORIDE 0.9% 1,000 ML IV ONE ×2 (21:13→23:06)
[2022-04-14 21:45] LABS: Glucose,Whole Blood 95 mg/dL (70-110)
[2022-04-14] MEDS: CHLORHEXIDINE GLUCONATE 15 ML CUP MUCOUS MEM SCH (21:47)
--- NOTE | 2022-04-14 22:01 | XR ---
EXAMINATION TYPE: XR abdomen 1V DATE OF EXAM: 04/14/2022 COMPARISON: NONE HISTORY: Check tube placement TECHNIQUE: Single view FINDINGS: There is nasogastric tube and the tip appears to be in the stomach in the gastric fundus. IMPRESSION: Tube tip appears to be in good position in the gastric fundus.
[2022-04-14] MEDS: POTASSIUM BICARBONATE/CIT AC 20 MEQ TABLET.EFF NG-TUBE SCH ×2 (22:09→23:11)
[2022-04-14] MEDS: MIRTAZAPINE 15 MG TAB PO SCH (22:39)
[2022-04-14] MEDS: HYDROcodone/APAP 10-325MG 1 EACH TAB PO PRN (23:10)
[2022-04-15 00:08] LABS: Glucose,Whole Blood 93 mg/dL (70-110)
[2022-04-15 00:36] LABS: Anisocytosis Marked; Basophils # (A) 0.1 k/uL (0-0.2); Basophils % (A) 1 %; Eosinophils % (A) 0 %; Hypochromasia Moderate; Lymphocytes # (A) 1.8 k/uL (1.0-4.8); Lymphocytes % (A) 17 %; MCH 30.5 pg (25.0-35.0); MCHC 31.3 g/dL (31.0-37.0); MCV 97.5 fL (80.0-100.0); Macrocytosis Moderate; Mean Platelet Volume 11.1; Monocytes # (A) 0.7 k/uL (0-1.0); Monocytes % (A) 6 %; Neutrophils # (A) 7.8 k/uL (1.3-7.7); Neutrophils % (A) 75 %; Poikilocytosis Marked; RBC 2.05 m/uL (3.80-5.40); RDW 24.8 % (11.5-15.5); WBC 10.5 k/uL (3.8-10.6)
[2022-04-15 00:40] LABS: Platelet Count 82 k/uL (150-450)
[2022-04-15 00:42] LABS: HGB 6.3 gm/dL (11.4-16.0)
[2022-04-15 01:07] LABS: Anisocytosis (M) Present; Large Platelets Present; Poikilocytosis (M) Present; Polychromasia Present
[2022-04-15] MEDS: IPRATROPIUM-ALBUTEROL 3 ML NEB INHALATION SCH ×6 (03:36→23:56)
[2022-04-15 05:18] LABS: ABG Base Excess -4.8 mmol/L; ABG HCO3 21 mmol/L (21-25); ABG PCO2 37 mmHg (35-45); ABG PH 7.36 (7.35-7.45); ABG PO2 189 mmHg (83-108); ABG TCO2 22 mmol/L (19-24); Allen Test Performed? Yes
[2022-04-15] MEDS: ACETAMINOPHEN TAB 500 MG TAB PO SCH ×4 (05:58→23:27)
[2022-04-15 06:02] LABS: Anisocytosis Marked; HCT 24.5 % (34.0-46.0); HGB 8.1 gm/dL (11.4-16.0); Hypochromasia Slight; MCH 30.6 pg (25.0-35.0); MCHC 33.3 g/dL (31.0-37.0); MCV 91.7 fL (80.0-100.0); Macrocytosis Slight; Poikilocytosis Marked; RBC 2.67 m/uL (3.80-5.40); RDW 24.2 % (11.5-15.5)
[2022-04-15 06:10] LABS: Ionized Calcium 5.1 mg/dL (4.5-5.3); Platelet Count 86 k/uL (150-450)
[2022-04-15 06:16] LABS: ALT 42 U/L (4-34); AST 30 U/L (14-36); African American GFR (CKD) >90 (>60 ml/min/1.73 sqM); Albumin 2.1 g/dL (3.5-5.0); Alkaline Phosphatase 95 U/L (38-126); Anion Gap 4 mmol/L; Blood Urea Nitrogen 20 mg/dL (7-17); Calcium 7.4 mg/dL (8.4-10.2); Carbon Dioxide 21 mmol/L (22-30); Chloride 117 mmol/L (98-107); Glucose 88 mg/dL (74-99); Magnesium 2.1 mg/dL (1.6-2.3); Non-African American GFR(CKD) >90 (>60 ml/min/1.73 sqM); Phosphorus 2.5 mg/dL (2.5-4.5); Potassium 3.5 mmol/L (3.5-5.1); Sodium 142 mmol/L (137-145)
[2022-04-15] MEDS: INSULIN ASPART (NovoLOG) 100 UNIT/ML VIAL SQ SCH ×4 (06:18→23:43)
[2022-04-15] MEDS: POTASSIUM BICARBONATE/CIT AC 20 MEQ TABLET.EFF NG-TUBE SCH ×2 (06:27→08:14)
[2022-04-15] MEDS: LEVOTHYROXINE 88 MCG TAB PO SCH (06:27)
[2022-04-15] MEDS: SODIUM CHLORIDE 0.9% 1,000 ML IV SCH (06:31)
[2022-04-15] MEDS: MIDODRINE 5 MG TAB PO SCH ×3 (06:31→18:11)
[2022-04-15 06:41] LABS: Band Neutrophils % 1 %; Neutrophils % (M) 80 %; Nucleated Red Blood Cells 4 /100 WBC (0-0); Total Cells Counted 200
[2022-04-15 06:42] LABS: Anisocytosis (M) Present; Lymphocytes # (M) 1.73 k/uL (1.0-4.8); Monocytes # (M) 0.43 k/uL (0-1.0); Polychromasia Present; WBC 10.8 k/uL (3.8-10.6)
--- NOTE | 2022-04-15 07:37 | P.PN ---
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 Vented sedated. Nursing at bedside. She did well overnight only requiring small doses of levo. She did get 1 uPRBC overnight due to low hgb of 6.4 but rebounded to 8.5. No other issues. Plan is for possible extubation today. Objective - Vital Signs Vital signs: Vital Signs Temp 97.6 F 04/15/22 05:02 Pulse 72 04/15/22 06:00 Resp 18 04/15/22 06:00 BP 153/54 04/15/22 05:02 Pulse Ox 90 L 04/15/22 05:02 FiO2 40 04/15/22 06:00 Intake & Output 04/14/22 04/15/22 04/15/22 18:59 06:59 18:59 Intake Total 630.727 2576.698 Output Total 320 1165 Balance 131.607 753.698 Weight 127.777 kg 135.5 kg Intake: IV 450 600 Sodium Chloride 0.9% 1, 50 600 000 ml @ 50 mls/hr IV . Q20H [facility] Rx#:[id number] Intake, IV Titration 1.607 740.698 Amount Norepinephrine 8 mg In 1.607 94.650 Sodium Chloride 0.9% 250 ml @ 0.03 MCG/KG/MIN 7. 417 mls/hr IV .Q24H [facility] Rx#:[id number] Sodium Chloride 0.9% 500 500 ml 500 ml @ 999 mls/hr IV .Q31M [facility] Rx#:[id number] propofoL 1,000 mg In 146.048 Empty Bag 1 bag @ 15 MCG/ KG/MIN 11.5 mls/hr IV . Q8H42M [facility] Rx#:[id number] Blood Product 278 Rc Pheresis As-3 Unit 278 [id number] Other 300 Output: Urine 220 165 Stool 1000 Estimated Blood Loss 100 Other: Voiding Method Indwelling Catheter Indwelling Catheter ABP, PAP, CO, CI - Last Documented Arterial Blood Pressure 120/44 - Exam Historical exam below. VSS. BP 115/78 HR 76 R 15 T 98.9. Sedated and vented currently. PHYSICAL EXAMINATION: Vitals: Stable General: Awake, alert, appropriate for age, in no acute distress. HEENT: No changes Extremities: Skin warm and dry without no acute lesions, coloration, temperature, skin intact, no tenderness or erythema. Integument: Surgical incisions: Clean but macerated at the bottom portion. Sutures remain to help keep closed. She has healing problems and poor potential. Warren Cath present and patent Flexoseal present and patent Palpation: Special findings: pain with palpation of the right breast area with large hematoma noted as well as anterior chest wall. VASCULAR STATUS : Wrist Pulses: [2/4 bilateral radial and ulnar] Pedal Pulses: [2/4 bilateral DP and PT] Color: [Normal] Edema: Improved in arms and hands. NEUROLOGIC EXAMINATION: Mental Status: Awake and alert, oriented,but slow with normal attention, concentration and memory, and fluent, he has slow speech Cranial Nerves: I: Olfactory not tested. II: Visual acuity normal, no visual field deficit noted with confrontation. III,IV: Normal pupillary reflexes & intact extraocular movements without nystag mus. V,: Intact symmetrical facial sensation. VII: Intact symmetrical facial motor movement VIII: Hearing intact. IX,X: Intact gag, swallow, & normal voice. XI: Sternocleidomastoid, trapezius function intact. XII: Tongue midline with normal movements. Special Tests: L'hermitte's Sign: Absent Straight Leg Raising: Absent Bilateral Motor Exam (0-5/5, N/T) STRENGTH 4- out of 5 strength in upper extremity's bilaterally all major muscle groups without focal deficits generalized weakness 3 / 5 strength bilateral lower extremities all major muscle groups with generalized weakness no focal deficits. She is weak in her hip flexors currently still with 2-3/5 strength. She can fire her quads b/l but they are very weak. REFLEXES Upper Extremity: RIGHT [2]/4 LEFT [2]/4 Lower Extremity: RIGHT [2]/4 LEFT [2]/4 Pathological Reflexes Warren's: RIGHT [Absent] LEFT [Absent] Babinski: RIGHT [Absent] LEFT [Absent] Clonus: RIGHT [None] LEFT [None] SENSORY Intact Gait and Functional Evaluation: Lay Flat, Bedrest - Labs CBC & Chem 7: 04/15/22 05:50 04/15/22 05:50 Labs: Abnormal Lab Results - Last 24 Hours (Table) 04/14/22 04/14/22 04/14/22 Range/Units 05:44 05:44 05:44 WBC 10.73 H (4.50-10.00) X 10*3/uL RBC 2.79 L (4.10-5.20) X 10*6/uL Hgb 8.4 L (12.0-15.0) g/dL Hct 28.2 L (37.2-46.3) % MCV 101.1 H (80.0-97.0) fL MCHC 29.8 L (32.0-37.0) g/dL RDW 24.5 H (11.5-14.5) % Plt Count 83 L (140-440) X 10*3/uL Plt Count Comment DECREASED A MPV 13.6 H (9.5-12.2) fL Absolute Nucleated RBC 0.69 H (0.00-0.00) X 10*3/uL Immature Gran # 0.52 H (0.00-0.04) X 10*3/uL Neutrophils # (1.3-7.7) k/uL Neutrophils # (Manual) (1.3-7.7) k/uL Eosinophils # 0 L (0.04-0.35) X 10*3/uL Nucleated RBCs (0-0) /100 WBC NRBC/100 WBC Diff 6.4 H (0.0-0.0) /100 WBCS Immature Plt Fraction 14.3 H (1.1-6.1) % ABG pO2 (83-108) mmHg ABG O2 Saturation (94-97) % Potassium 3.4 L (3.5-5.1) mmol/L Chloride 113 H (98-107) mmol/L Carbon Dioxide (22-30) mmol/L BUN 22 H (7-17) mg/dL Creatinine 0.38 L (0.52-1.04) mg/dL Glucose (74-99) mg/dL Calcium 7.1 L (8.4-10.2) mg/dL Phosphorus 2.0 L (2.5-4.5) mg/dL ALT (4-34) U/L Total Protein (6.3-8.2) g/dL Albumin (3.5-5.0) g/dL Crossmatch 04/14/22 04/14/2223 Range/Units 19:49 19:49 20:03 WBC 14.0 H (4.50-10.00) X 10*3/uL RBC 2.51 L (4.10-5.20) X 10*6/uL Hgb 7.7 L (12.0-15.0) g/dL Hct 24.5 L (37.2-46.3) % MCV (80.0-97.0) fL MCHC (32.0-37.0) g/dL RDW 24.6 H (11.5-14.5) % Plt Count 100 L D (140-440) X 10*3/uL Plt Count Comment MPV (9.5-12.2) fL Absolute Nucleated RBC (0.00-0.00) X 10*3/uL Immature Gran # (0.00-0.04) X 10*3/uL Neutrophils # (1.3-7.7) k/uL Neutrophils # (Manual) (1.3-7.7) k/uL Eosinophils # (0.04-0.35) X 10*3/uL Nucleated RBCs (0-0) /100 WBC NRBC/100 WBC Diff (0.0-0.0) /100 WBCS Immature Plt Fraction (1.1-6.1) % ABG pO2 330 H (83-108) mmHg ABG O2 Saturation 100.0 H (94-97) % Potassium 3.3 L (3.5-5.1) mmol/L Chloride 116 H (98-107) mmol/L Carbon Dioxide (22-30) mmol/L BUN 21 H (7-17) mg/dL Creatinine 0.44 L (0.52-1.04) mg/dL Glucose 105 H (74-99) mg/dL Calcium 7.3 L (8.4-10.2) mg/dL Phosphorus (2.5-4.5) mg/dL ALT (4-34) U/L Total Protein (6.3-8.2) g/dL Albumin 1.7 L (3.5-5.0) g/dL Crossmatch 04/15/22 04/15/22 04/15/22 Range/Units 00:05 01:22 05:17 WBC (4.50-10.00) X 10*3/uL RBC 2.05 L (4.10-5.20) X 10*6/uL Hgb 6.3 L* (12.0-15.0) g/dL Hct 20.0 L (37.2-46.3) % MCV (80.0-97.0) fL MCHC (32.0-37.0) g/dL RDW 24.8 H (11.5-14.5) % Plt Count 82 L (140-440) X 10*3/uL Plt Count Comment MPV (9.5-12.2) fL Absolute Nucleated RBC (0.00-0.00) X 10*3/uL Immature Gran # (0.00-0.04) X 10*3/uL Neutrophils # 7.8 H (1.3-7.7) k/uL Neutrophils # (Manual) (1.3-7.7) k/uL Eosinophils # (0.04-0.35) X 10*3/uL Nucleated RBCs (0-0) /100 WBC NRBC/100 WBC Diff (0.0-0.0) /100 WBCS Immature Plt Fraction (1.1-6.1) % ABG pO2 189 H (83-108) mmHg ABG O2 Saturation 100.0 H (94-97) % Potassium (3.5-5.1) mmol/L Chloride (98-107) mmol/L Carbon Dioxide (22-30) mmol/L BUN (7-17) mg/dL Creatinine (0.52-1.04) mg/dL Glucose (74-99) mg/dL Calcium (8.4-10.2) mg/dL Phosphorus (2.5-4.5) mg/dL ALT (4-34) U/L Total Protein (6.3-8.2) g/dL Albumin (3.5-5.0) g/dL Crossmatch See Detail 04/15/22 04/15/22 Range/Units 05:50 05:50 WBC 10.8 H (4.50-10.00) X 10*3/uL RBC 2.67 L (4.10-5.20) X 10*6/uL Hgb 8.1 L D (12.0-15.0) g/dL Hct 24.5 L (37.2-46.3) % MCV (80.0-97.0) fL MCHC (32.0-37.0) g/dL RDW 24.2 H (11.5-14.5) % Plt Count 86 L (140-440) X 10*3/uL Plt Count Comment MPV (9.5-12.2) fL Absolute Nucleated RBC (0.00-0.00) X 10*3/uL Immature Gran # (0.00-0.04) X 10*3/uL Neutrophils # (1.3-7.7) k/uL Neutrophils # (Manual) 8.70 H (1.3-7.7) k/uL Eosinophils # (0.04-0.35) X 10*3/uL Nucleated RBCs 4 H (0-0) /100 WBC NRBC/100 WBC Diff (0.0-0.0) /100 WBCS Immature Plt Fraction (1.1-6.1) % ABG pO2 (83-108) mmHg ABG O2 Saturation (94-97) % Potassium (3.5-5.1) mmol/L Chloride 117 H (98-107) mmol/L Carbon Dioxide 21 L (22-30) mmol/L BUN 20 H (7-17) mg/dL Creatinine 0.44 L (0.52-1.04) mg/dL Glucose (74-99) mg/dL Calcium 7.4 L (8.4-10.2) mg/dL Phosphorus (2.5-4.5) mg/dL ALT 42 H (4-34) U/L Total Protein 4.0 L (6.3-8.2) g/dL Albumin 2.1 L (3.5-5.0) g/dL Crossmatch Microbiology - Last 24 Hours (Table) 04/14/22 12:00 Anaerobic Culture - Preliminary Back 04/14/22 16:17 Anaerobic Culture - Preliminary Back 04/14/22 12:00 Wound Culture - Preliminary Back 04/14/22 16:17 Wound Culture - Preliminary Back Assessment and Plan Assessment: 1. 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 surgery, nephrology, ID evaluations -Continue Activity: SIT UP MUCH POSSIBLE. Turn q2 when in bed. -PT / OT DAILY work on increased strength in LE quads, hammys, etc for standing -DAILY SHOWERS -Daily proning 5-10 min work up to 10 2x daily -Cont Abx for duration of stay -Caffiene daily 200 mg daily -Add Fioracet PRN for LOZANO, currently no LOZANO -Pain control: Adequate today (Cont with percocet. NO more oxy IR, or dilaudid at this time. Watch pressures and VS due to her bleed. -Meplex pads on sacral region with barrier cream. Cont turn. Sit at different angles. -Meds: reviewed -Trend labs, trend SED and CRP for markers -Transfusions to vitals -GI ppx: Per General surgery, senna, Miralax, Golytely -Continue Warren changed per protocol -Cont with Flexoseal -DVT PPX: Mechanical only at this time due to bleed -Hygiene: Maintain dressing clean and dry. Meticulous cleaning after BMs away from incision site patient has had several instances on the floor where she was covered and bowel movement as well as urine up to her shoulders on her back. The wound needs to be kept meticulously clean. -Encourage IS 10x/hr -Dispo: Pending
--- NOTE | 2022-04-15 07:41 | XR ---
EXAMINATION TYPE: XR chest 1V portable DATE OF EXAM: 04/15/2022 6:22 AM COMPARISON: Chest radiograph from one day prior. TECHNIQUE: XR chest 1V portable Portable AP radiograph of the chest. CLINICAL INDICATION:Female, 71 years old with history of Tube placement; FINDINGS: Patient is rotated on today's exam. Lungs/Pleura: Elevated right diaphragm with subsegmental atelectasis on the right. Left lung base air space opacities are persistent. Pulmonary vascularity: Unremarkable. Heart/mediastinum: Cardiomediastinal silhouette is unremarkable. Musculoskeletal: No acute osseous pathology. Extensive surgical changes to the back. Lines/Tubes: Endotracheal tube with distal tip 8.0 cm above the adiel. Nasogastric tube with its distal tip and side-port projecting under the diaphragm. Left-sided PICC with distal tip at the superior vena cava/brachiocephalic confluence. IMPRESSION: Rotated exam with findings felt to be similar to one day prior with elevated right diaphragm and left basilar airspace opacities.
[2022-04-15] MEDS: CHLORHEXIDINE GLUCONATE 15 ML CUP MUCOUS MEM SCH ×2 (08:12→19:59)
[2022-04-15] MEDS: ANIDULAFUNGIN 100 MG in SODIUM CHLORIDE 0.9% 100 ML IVPB SCH (08:13)
[2022-04-15] MEDS: PANTOPRAZOLE 40 MG/10 ML VIAL IVP SCH ×2 (08:13→19:59)
[2022-04-15] MEDS: ATORVASTATIN 20 MG TAB PO SCH (08:14)
[2022-04-15] MEDS: DULoxetine HCL 60 MG CAPSULE.DR PO SCH (08:14)
[2022-04-15] MEDS: MAGNESIUM OXIDE 400 MG TAB PO SCH (08:14)
[2022-04-15] MEDS: VERAPAMIL 40 MG TAB PO SCH ×3 (08:14→19:53)
[2022-04-15] MEDS: METOPROLOL TARTRATE 50 MG TAB PO SCH ×3 (08:14→20:00)
[2022-04-15] MEDS: SODIUM BICARBONATE TAB 650 MG TAB PO SCH ×2 (08:14→20:00)
[2022-04-15] MEDS: GABAPENTIN 400 MG CAP PO SCH ×3 (08:14→21:01)
[2022-04-15] MEDS: AMIODARONE 200 MG TAB PO SCH (08:14)
[2022-04-15] MEDS: DIGOXIN 250 MCG TAB PO SCH (08:15)
[2022-04-15] MEDS: SIMETHICONE 40 MG/0.6 ML DROPS 2,000 MG/30 ML BOTTLE PO SCH ×4 (08:15→21:02)
[2022-04-15] MEDS: LACTULOSE 20 GM/30 ML CUP PO SCH ×2 (08:24→19:59)
[2022-04-15] MEDS: CEFEPIME 1 GM in SODIUM CHLORIDE 0.9% 50 ML IVPB SCH ×3 (08:30→23:27)
[2022-04-15] MEDS: MAG HYDROX/AL HYDROX/SIMETH 30 ML, diphenhydrAMINE ELIXIR 75 MG, LIDOCAINE VISCOUS 2% 3... PO SCH ×9 (08:33→21:02)
[2022-04-15] MEDS ORDERED: FUROSEMIDE 10 MG/ML 4 ML VIAL IV STA ×2 (08:51→21:59)
[2022-04-15] MEDS ORDERED: FAT EMULSION 20% 250 ML in EMPTY BAG 1 BAG IV SCH (09:00)
[2022-04-15] MEDS: VANCOMYCIN 2,000 MG in SODIUM CHLORIDE 0.9% 500 ML 500 ML IVPB SCH ×2 (09:07→19:59)
--- NOTE | 2022-04-15 09:52 | P.OP ---
Date of Procedure: 04/14/22 Preoperative Diagnosis: 1. Lumbar wound dehiscence 2. s/p [id number] decompression and fusion with complex perioperative and post operative course 3. Complex medical patient Postoperative Diagnosis: 1. Lumbar wound dehiscence 2. s/p [id number] decompression and fusion with complex perioperative and post operative course 3. Complex medical patient Procedure(s) Performed: 1. Irrigation and excisional debridement of lumbar spine [id number] cm using the following -Skin knife used for excision of necrotic skin, soft tissue and muscle -Curette used to excise necrotic fat and soft tissue -Kerrison used to remove bone 2. Complex wound closure [id number] cm in a 4 layered fashion. Implants: None Anesthesia: GETA Surgeon: Thom Alexander [employer] Operations Staff Officer #1: Rey Abernathy (Was present and assisted with all aspects of the case from positioning to dressing placement) [employer] Operations Staff Officer #2: Joaquin Peña (Was scrubbed as an observer) Estimated Blood Loss (ml): 150 IV fluids (ml): 1,200 Urine output (ml): 300 Pathology: none sent Condition: stable Disposition: PACU Indications for Procedure: Gabrielle Gee is a 71 yo female presenting for evaluation of low back pain, continued drainage, wound dehiscence. It was my pleasure to have seen and examined Gabrielle. Today we have had a chance to go over subjective complaints, physical examination findings and treatments including the natural course history without intervention and various interventional options. On physical exam, Gabrielle demonstrates Low back wound dehiscence. I have explained to the patient that as their condition progresses it will cause further neurological deficits and eventual paralysis. Based on the patients imaging, physical exam, and the rapid progression and disabling nature of their symptoms, at this time I recommend surgery in the form or a: Low back incision irrigation and debridment with exploration, wound vac placement possible dural repair. I discussed the risk and benefits of this procedure at length with Gabrielle. The patient and her family at bedside including her sons agreed to considered pursuing the procedure abovementioned. Prior to surgery, she should follow up with her PCP (Cardio, ID, IM etc) for clearance. Questions were invited and answered, and the patient wishes to proceed as outlined below. Currently, I am recommendin. Low back incision irrigation and debridment with exploration, wound vac placement possible dural repair Description of Procedure: The patient was seen and examined in the preoperative area. All preoperative protocols were followed. Informed consent was obtained risks and benefits of the procedure were discussed at length. Risks including bleeding infection damage to the surrounding tissue and risk of reoperation were discussed with the patient. Risk of anesthesia up to and including was a discussed with the patient. These are outlined in the risk review. They were willing to accept these risks and all of the risks of surgery. The patient was given a weight- based dose of antibiotics in the form of vancomycin and cefepime from a 4. The patient was seen and evaluated by the anesthesia team who deemed them fit for surgery. The site was marked, the patient was willing to proceed with the procedure. The patient was transferred to the operative suite by the Department of anesthesia. They were then drifted off to sleep by the department anesthesia and GETA was performed. The patient tolerated this well. Warren catheter in place. Once confirmation of lines and ventilation the patient was transferred to a [prone Tristin table very carefully]. All bony prominences including wrists, elbows, axilla, chest, hips, and thighs, and feet were padded very well. Special attention was paid to the genitalia and these were padded accordingly. SCDs were placed on bilateral lower extremities and were connected. Arms were well padded and placed [on arm boards up and out in the 90/90 position]. Once in position, again we confirmed good ventilation capabilities and that lines were running appropriately. The patient's thoracolumbar sacral spine was then exposed. 1010s were placed outlining the incision site. Standard alcohol was used to clean the incision site and allowed to dry. C-arm was used to biomark the patient and confirm level for incision which was marked with a skin marker. Operative briefing was performed with all teams and everyone in agreement to proceed. The patient was then prepped and draped in a normal sterile fashion. Timeout was then performed and all parties were in agreement with the procedure to be performed. The wound was reopened and all sutures were removed. There was little to no evidence of good healing tissue in the area and the wound opened up very easily. There was a seroma deep to the fascia. Which was evacuated. Retractors were placed and we investigated the area. There was no dural leak. Previous repairs and patches in place and holding well. Valsalva manuver was done to 40 mmhG and no active leaks seen. Cultures were taken superficial and deep of the wound. We irrigated the wound with 3 L of ancef solution followed by 3L of gent amycin solution. Necrotic tissue was excised with a knife and curette. Rongure used to remove bone pieces and freshen edges. Curette used to scrape and freshen soft tissue edges. Knife was then used to freshen skin edges and create bleeding which was successful. The wound was then irrigated with 3 more 3L bags of NSS. The wound bed was inspected again. The muscles were tested with bovi and had good contraction however, there was little to no bleeding from the musculature or the facia or surrounding soft tissues. Skin and subq did bleed appropriately. After through debridment and washout we proceeded with layered closure. Cellerate was then placed in the wound bed. Muscle layer was closed with 1 PDS followed by the deep facia with the same. A running unidirectinoal stratafix was then placed in the Fascia for a water tight closure. The deep subq layer was then closed with 0PDS. Superficial sub q closed with a running unidirectional stratafix. Skin was then closed with 2-0 Nylon in a horizontal mattress fashion. The wound edges approximated well. The wound was the cleaned and dressed with adaptic, 4x4, ABD and tape and the entire wound was then covered with IOBAND dressing for protection. The patient was then transferred off the operative bed to her hospital bed a- traumatically. She was transferred to the ICU, intubated in stable condition.
--- NOTE | 2022-04-15 09:52 | P.PN ---
Subjective Progress Note Date: 04/15/22 Patient is a 71 yo CF with a hx of A fib s/p ablation, GERD, hypertension, dyslipidemia, and right diaphragmatic paralysis who presented for T10 to Pelvis decompression and fusion with revision. Course complicated by significant blood loss. Patient was on vasopressors, also received TXA gtt. She received 7 L of lactated Ringer's. She received 1 amp of sodium bicarb intaop. She also received albumin. Patient then had a cardiac arrest. During the case she developed A. fib with RVR and then quickly transitioned into bradycardia with a low end-tidal CO2. She received 0.4 of atropine and CPR was started. She received epinephrine 0.5. She achieved ROSC. Total down time was less than 5 minutes. She was extubated on 02/25. She continued to do well but struggled with pain. She was downgraded from ICU on 03/03. On 03/06/22 patient was noted to have a significant drop in hemoglobin from 10.0 down to 7.5 and upon reevaluation on 03/07 was found to have hemoglobin of 5.4, patient required multiple transfusions. She has received a total of 7 units PRBCs and 1 unit of platelets. She underwent a CT abdomen and pelvis and was found to have a large right chest hematoma dilated small bowel concerning for ileus. Patient was evaluated by cardiothoracic surgery and they recommended conservative management. On 03/07, patient was noted to be hypotensive with elevated WBC count of 42.3, with worsening renal function and hyperkalamia. Patient was treated with NS bolus, IV insulin/D50, Albuterol and sodium bicarbonate. She was transferred back to the ICU for septic shock requiring Levophed. Patient was started on Vancomycin and Cefepime. Blood and urine cultures were obtained and positive for Enterobacter. Infectious disease was consulted and patient was continued on Cefepime for treatment of Enterobacter UTI with secondary bacteremia and Vancomycin was discontinued. Patient was later weaned off of vasopressors and again transferred out of the ICU. Patient was started on Lasix for treatment of acute on chronic systolic heart failure with EF of 35-40%. Patient continued on Protonix for GI prophylaxis, amiodarone and metoprolol for atrial fibrillation with RVR sodium bicarb for treatment of metabolic acidosis. Pt's Xarelto remains hold at this time. Patient was evaluated by PMR and is currently not a candidate for inpatient rehab. She has been cleared by orthopedic surgery to start working with physical therapy. On 03/26/22 patient was again found to have elevating leukocytosis and repeat Wound cultures were obtained. Wound cultures were positive for pseudomonas aeruginosa, enterococcus fasciculus, and Patsy albicans. Patient to continue with Zosyn per culture and sensitivity report and as recommended by infectious disease as this may be contamination/colonization however patient is a high risk of infection so we will continue with empiric antibiotic therapy. Overnight on 03/28/22 patient again developed episodes of melena and at that time Dr. Arce, general surgeon was re-consulted. CT abdomen and pelvis revealing bilateral hydronephrosis unable to rule out obstructive etiology, concerns for fecal impaction, and persistent previously known right anterior chest wall hematoma. General surgery following and reevaluated patient secondary to concerns of fecal impaction and started patient on lactulose. Wiley catheter was inserted secondary to bi lateral hydronephrosis and patient was evaluated by urologist recommending continuation of Wiley catheter as bilateral hydronephrosis is believed to be resulting secondary to urinary retention. On the evening of 04/03/21 patient with continued atrial tachycardia and hypotension and unable to take metoprolol secondary to low blood pressures. Patient had episode of hematochezia along with large blood clot and was transferred back to the ICU. Had bedside manual disimpaction with general surgery. Also has a posterior anal fissure could likely because of current bleeding. On a bowel regimen. Hemoglobin continues to down trend. Requiring further blood transfusions. Hemoglobin currently stable. Hemodynamically stable. Patient pending transfer for GI at [facility]. Subjective: Had revision to back wound on 04/15, I was scrubbed into OR to witness. Pt did not have evidence of dural leak, did have evidence of poor wound healing and blood flow to area. Wound was washed out and antibiotic applied. avascular tissue was excised and good blood flow returned to area. Surgiseal used to cover more dura. Pt had some hypotension following procedure due to anesthesia and required some pressors and fluids overnight. Today had sedation holiday and was able to follow commands. Plan is for extubation today if able per pulmonology after discussion. Case discussed with ortho, plan is to decompress back wound as much as possible to encourage healing, including frequent turns, elevating HOB as much as able, proning twice per day. Ongoing enteral supplementation. Rec'd 1U PRBC, appropriate response of hgb. GoC discussion planned with family on 04/16 @ 1300 with myself. Vitals Signs Reviewed. Gen: awake, alert HEENT: normocephalic, atraumatic, good hearing acuity, moist mucous membranes Resp: good air exchange, breathing comfortably with no accessory muscle use CVS: good distal perfusion x 4, tachycardic GI: soft, NTTP, distended, +FMS : no SPT, no CVAT, wiley catheter is present MSK: no pitting edema, no clubbing, wound is dehisced down to spine, does not appear to be foul smelling or have pustular discharge, Neuro: non-focal, moving all extremities Psych: cooperative, euthymic mood Assessment and Plan: GI bleeding, likely lower Acute abdominal pain - resolved Fecal impaction, status post manual disimpaction Posterior Anal fissure -Gen surgery following and managing FMS and laxatives -Continue with Protonix 40 mg IVP twice daily -Hemoglobint stable -Total transfusions are 13U PRBC, 2U FFP -On bowel regimen -Discussed with family on 04/14, transfer to [place] deferred unless HDS from GI Bleeding, currently stable Atrial flutter/fibrillation with RVR Status post Cardiac arrest with ROSC Acute on chronic systolic heart failure -Cardiology following, discussed case on 04/15, decreasing metoprolol to 50mg BID, discontinuing digoxin, starting verapamil 40mg BID, continuing amiodarone -Continuous telemetry monitoring. -I ordered albumin 25gm on 04/14 PM and patient rec'd lasix 40mg IV once 04/15 for volume overload and intravascular volume depletion -also on Midodrine 10mg AC-TID -Holding anticoagulation due to ongoing GI bleed Poor nutritional intake Severe protein calorie malnutrition Anasarca -Reducing mirtazipine to 7.5mg qHS to reduce somnolence effects while continuing effects on appetite stimulation -Patient getting tube feeds Hypokalemia- resolved Septic shock - resolved Enterobacter cloacae UTI with secondary bacteremia - resolved Lactic acidosis Leukocytosis -resolved Patsy UTI Possible, but not definitive surgical site infection due to poor wound healing - OR cultures pending -Infectious disease following and managing antibiotic course at this time. -ID has patient on Eraxis, vancomycin, cefepime -Discussed with ID that zosyn will be exchanged with cefepime due to thrombocytopenia -thrombocytopenia is improving since discontinuing zosyn. Bilateral hydronephrosis, likely secondary to urinary retention -CT abdomen and pelvis revealing bilateral hydronephrosis unable to rule out obstructive etiology. -Renal function stable -Urology following, recommending continuation of Wiley catheter Prerenal azotemia, improving Hyponatremiaresolving Hyperkalemiaresolved Hypokalemiaresolved Metabolic acidosis, resolved -Continue sodium bicarb 650 mg twice a day -Nephrology following. Prediabetes with hyperglycemia, now hypoglycemia -Likely steroid induced -A1c is 6 -Continue with sliding scale Right breast hematoma - stable T10 to pelvis decompression with fusion Post-op pain -Management per primary admitting Orthopedic surgery team including DVT prophylaxis, pain management, wound/dressing care, weightbearing, and PT/OT . -PT/OT following. -return to OR on 04/14 for revision and washout, site is dehisced but does not appear to be infected since no foul smell or pustular discharge. OR cultures pending Right diaphragmatic paralysis -No interventions for her pulmonology Hyperlipidemia -atorvastatin. History of hypertension -Currently On Midodrine for episodes of hypotension Transaminitis -Likely ischemic hepatitis. -Resolved Thank you for allowing us to participate in the care of this pleasant patient. Do not hesitate to contact us with questions. Someone can be reached from the [facility] hospitalist group all hours of the day at [phone] or via [employer]. Objective - Vital Signs Vital signs: Vital Signs Temp 97.2 F L 04/15/22 08:00 Pulse 99 04/15/22 09:00 Resp 25 H 04/15/22 09:00 BP 135/67 04/15/22 08:00 Pulse Ox 94 L 04/15/22 09:00 FiO2 40 04/15/22 09:24 Intake & Output 04/14/22 04/15/22 04/15/22 18:59 06:59 18:59 Intake Total 169.935 9414.698 829.294 Output Total 320 1165 40 Balance 131.607 753.698 789.294 Weight 127.777 kg 135.5 kg Intake: IV 450 600 750 Anidulafungin 100 mg In 100 Sodium Chloride 0.9% 100 ml @ 84 mls/hr IVPB DAILY [facility] Rx#:[id number] Cefepime 1 gm In Sodium 50 Chloride 0.9% 50 ml @ 12. 5 mls/hr IVPB Q8HR [facility] Rx #:[id number] Sodium Chloride 0.9% 1, 50 600 100 000 ml @ 50 mls/hr IV . Q20H [facility] Rx#:[id number] Vancomycin 2,000 mg In 500 Sodium Chloride 0.9% 500 ml 500 ml @ 167 mls/hr IVPB Q12HR [facility] Rx#: [id number] Intake, IV Titration 1.607 740.698 79.294 Amount Norepinephrine 8 mg In 1.607 94.650 7.418 Sodium Chloride 0.9% 250 ml @ 0.03 MCG/KG/MIN 7. 417 mls/hr IV .Q24H [facility] Rx#:[id number] Sodium Chloride 0.9% 500 500 ml 500 ml @ 999 mls/hr IV .Q31M [facility] Rx#:[id number] propofoL 1,000 mg In 146.048 71.876 Empty Bag 1 bag @ 15 MCG/ KG/MIN 11.5 mls/hr IV . Q8H42M [facility] Rx#:[id number] Blood Product 278 Rc Pheresis As-3 Unit 278 [id number] Other 300 Output: Urine 220 165 40 Stool 1000 Estimated Blood Loss 100 Other: Voiding Method Indwelling Catheter Indwelling Catheter ABP, PAP, CO, CI - Last Documented Arterial Blood Pressure 169/76 - Labs CBC & Chem 7: 04/15/22 05:50 04/15/22 05:50 Labs: Abnormal Lab Results - Last 24 Hours (Table) 04/14/22 04/14/22 04/14/22 Range/Units 05:44 05:44 19:49 WBC 10.73 H 14.0 H (4.50-10.00) X 10*3/uL RBC 2.79 L 2.51 L (4.10-5.20) X 10*6/uL Hgb 8.4 L 7.7 L (12.0-15.0) g/dL Hct 28.2 L 24.5 L (37.2-46.3) % MCV 101.1 H (80.0-97.0) fL MCHC 29.8 L (32.0-37.0) g/dL RDW 24.5 H 24.6 H (11.5-14.5) % Plt Count 83 L 100 L D (140-440) X 10*3/uL Plt Count Comment DECREASED A MPV 13.6 H (9.5-12.2) fL Absolute Nucleated RBC 0.69 H (0.00-0.00) X 10*3/uL Immature Gran # 0.52 H (0.00-0.04) X 10*3/uL Neutrophils # (1.3-7.7) k/uL Neutrophils # (Manual) (1.3-7.7) k/uL Eosinophils # 0 L (0.04-0.35) X 10*3/uL Nucleated RBCs (0-0) /100 WBC NRBC/100 WBC Diff 6.4 H (0.0-0.0) /100 WBCS Immature Plt Fraction 14.3 H (1.1-6.1) % ABG pO2 (83-108) mmHg ABG O2 Saturation (94-97) % Potassium (3.5-5.1) mmol/L Chloride (98-107) mmol/L Carbon Dioxide (22-30) mmol/L BUN (7-17) mg/dL Creatinine (0.52-1.04) mg/dL Glucose (74-99) mg/dL Calcium (8.4-10.2) mg/dL Phosphorus 2.0 L (2.5-4.5) mg/dL ALT (4-34) U/L Total Protein (6.3-8.2) g/dL Albumin (3.5-5.0) g/dL Crossmatch 04/14/22 04/14/22 04/15/22 Range/Units 19:49 20:03 00:05 WBC (4.50-10.00) X 10*3/uL RBC 2.05 L (4.10-5.20) X 10*6/uL Hgb 6.3 L* (12.0-15.0) g/dL Hct 20.0 L (37.2-46.3) % MCV (80.0-97.0) fL MCHC (32.0-37.0) g/dL RDW 24.8 H (11.5-14.5) % Plt Count 82 L (140-440) X 10*3/uL Plt Count Comment MPV (9.5-12.2) fL Absolute Nucleated RBC (0.00-0.00) X 10*3/uL Immature Gran # (0.00-0.04) X 10*3/uL Neutrophils # 7.8 H (1.3-7.7) k/uL Neutrophils # (Manual) (1.3-7.7) k/uL Eosinophils # (0.04-0.35) X 10*3/uL Nucleated RBCs (0-0) /100 WBC NRBC/100 WBC Diff (0.0-0.0) /100 WBCS Immature Plt Fraction (1.1-6.1) % ABG pO2 330 H (83-108) mmHg ABG O2 Saturation 100.0 H (94-97) % Potassium 3.3 L (3.5-5.1) mmol/L Chloride 116 H (98-107) mmol/L Carbon Dioxide (22-30) mmol/L BUN 21 H (7-17) mg/dL Creatinine 0.44 L (0.52-1.04) mg/dL Glucose 105 H (74-99) mg/dL Calcium 7.3 L (8.4-10.2) mg/dL Phosphorus (2.5-4.5) mg/dL ALT (4-34) U/L Total Protein (6.3-8.2) g/dL Albumin 1.7 L (3.5-5.0) g/dL Crossmatch 04/15/22 04/15/22 04/15/22 Range/Units 01:22 05:17 05:50 WBC 10.8 H (4.50-10.00) X 10*3/uL RBC 2.67 L (4.10-5.20) X 10*6/uL Hgb 8.1 L D (12.0-15.0) g/dL Hct 24.5 L (37.2-46.3) % MCV (80.0-97.0) fL MCHC (32.0-37.0) g/dL RDW 24.2 H (11.5-14.5) % Plt Count 86 L (140-440) X 10*3/uL Plt Count Comment MPV (9.5-12.2) fL Absolute Nucleated RBC (0.00-0.00) X 10*3/uL Immature Gran # (0.00-0.04) X 10*3/uL Neutrophils # (1.3-7.7) k/uL Neutrophils # (Manual) 8.70 H (1.3-7.7) k/uL Eosinophils # (0.04-0.35) X 10*3/uL Nucleated RBCs 4 H (0-0) /100 WBC NRBC/100 WBC Diff (0.0-0.0) /100 WBCS Immature Plt Fraction (1.1-6.1) % ABG pO2 189 H (83-108) mmHg ABG O2 Saturation 100.0 H (94-97) % Potassium (3.5-5.1) mmol/L Chloride (98-107) mmol/L Carbon Dioxide (22-30) mmol/L BUN (7-17) mg/dL Creatinine (0.52-1.04) mg/dL Glucose (74-99) mg/dL Calcium (8.4-10.2) mg/dL Phosphorus (2.5-4.5) mg/dL ALT (4-34) U/L Total Protein (6.3-8.2) g/dL Albumin (3.5-5.0) g/dL Crossmatch See Detail 04/15/22 Range/Units 05:50 WBC (4.50-10.00) X 10*3/uL RBC (4.10-5.20) X 10*6/uL Hgb (12.0-15.0) g/dL Hct (37.2-46.3) % MCV (80.0-97.0) fL MCHC (32.0-37.0) g/dL RDW (11.5-14.5) % Plt Count (140-440) X 10*3/uL Plt Count Comment MPV (9.5-12.2) fL Absolute Nucleated RBC (0.00-0.00) X 10*3/uL Immature Gran # (0.00-0.04) X 10*3/uL Neutrophils # (1.3-7.7) k/uL Neutrophils # (Manual) (1.3-7.7) k/uL Eosinophils # (0.04-0.35) X 10*3/uL Nucleated RBCs (0-0) /100 WBC NRBC/100 WBC Diff (0.0-0.0) /100 WBCS Immature Plt Fraction (1.1-6.1) % ABG pO2 (83-108) mmHg ABG O2 Saturation (94-97) % Potassium (3.5-5.1) mmol/L Chloride 117 H (98-107) mmol/L Carbon Dioxide 21 L (22-30) mmol/L BUN 20 H (7-17) mg/dL Creatinine 0.44 L (0.52-1.04) mg/dL Glucose (74-99) mg/dL Calcium 7.4 L (8.4-10.2) mg/dL Phosphorus (2.5-4.5) mg/dL ALT 42 H (4-34) U/L Total Protein 4.0 L (6.3-8.2) g/dL Albumin 2.1 L (3.5-5.0) g/dL Crossmatch Microbiology - Last 24 Hours (Table) 04/14/22 12:00 Anaerobic Culture - Preliminary Back 04/14/22 16:17 Anaerobic Culture - Preliminary Back 04/14/22 12:00 Wound Culture - Preliminary Back 04/14/22 16:17 Wound Culture - Preliminary Back
--- NOTE | 2022-04-15 10:42 | P.PN ---
Progress Note - Text Progress Note Date: 04/15/22 The patient remains on the ventilator in the ICU. Her white count is 10.5. Her hemoglobin is 8.1. Vital signs appear stable. Abdomen soft. There is no evidence of any acute GI bleed. Patient will be observed.
--- NOTE | 2022-04-15 11:21 | P.PN ---
Subjective Progress Note Date: 04/15/22 Principal diagnosis: status post lumbar decompression/fusion Is evaluation of 02/25/2022, the patient is being seen for a follow-up in the intensive care unit. The patient is post laminectomy and fusion/decompression of the spine and this was done on multiple levels. The patient overnight was kept on a mechanical ventilator. This morning, the patient is on propofol which is running at 35 mcg/kg/m. The patient is well sedated and the patient is quite sick sinus with a mechanical ventilator. The patient is requiring no pressors. The patient on normal saline in the at the rate of 50 mL an hour. The patient is on a mechanical ventilator on assist control mode at the rate of 18, tidal volume of 450, FiO2 of 40% with a PEEP of 5. The blood gas from today showed a pH of 7.41 with a pCO2 of 35 and pO2 of 138. Chest x-ray shows smaller lung volumes, some mild elevation of the right hemidiaphragm. ET tube is sitting just at the level of the aortic knob. No evidence of any pneumothorax. No airspace disease or consolidations. The patient also had a CT angiogram that showed no evidence of any pulmonary embolism. That showed atelectatic change in lung bases and various up other lung segments. No effusion. No lung collapse. CAT scan of the lumbosacral spine was also completed. The surgical one-sided dry clean and intact. The Hemovac output is bloody and its minimal at this point in time. The patient is afebrile. The patient is in atrial fibrillation. Rate is controlled. The patient is receiving Dilaudid for pain control.Blood work from today shows a white cell count of 14.7 with a hemoglobin of 10.1 and a platelet count of 232. The patient also has a sodium level of 135, potassium level of 4.4, chloride is 106 with a bicarb of 23 and a BUN of 15 and a creatinine of 0.5. On 04/09/2022, the patient is in the intensive care area that she is having ongoing issues with GI bleeding. Hemoglobin has been fluctuating. I have discussed this issue with the general surgeon on multiple occasions. It was thought that the stool was brown based on the surgeon's evaluation. Nevertheless, this morning, hemoglobin drop down to 4.9 and I witnessed a large quantity of maroon stool and the patient's bed in the morning evaluation. Furthermore, the blood work from today showed a hemoglobin of 4.9 and the patient is obviously having ongoing issues with GI bleeding. She remains on IV Protonix. GI surgeries on the case and he'll remains aware of those changes. Her cardiac rhythm is irregular consistent with age of fibrillation/flutter. No hematemesis. No abdominal pain. Hemodynamically stable despite a significant drop in hemoglobin down to 4.9. The rest of the blood work shows a sodium level of 131, potassium level is at 3.3, BUN is 35 with a creatinine of 0.54. The patient remains on the same antibiotic coverage. The patient remains on a combination of Zosyn and Eraxis. The patient otherwise is still critical and intensive care unit and the activation for now remains episodes of atrial fibrillation fluctuating hemoglobin. Note that the patient also had an issue with itchy fibrillation with rapid ventricular response yesterday. Based on that, the patient was loaded with amiodarone and the patient continues to be on amiodarone at a dose of 0.5 mg/m. Heart rate under better control for now. Reevaluated today on 04/10/2022, patient remains in the ICU, being followed by surgery for her GI bleeding, received a total of 12 units of packed RBCs since admission, and 2 units of platelets. An hemoglobin today is 9.2. Apparently the patient continues to have intermittent episodes of maroon colored stools, and surgery on the case is recommending transfer to a tertiary care institution is there is no GI coverage. Patient is on 4 L nasal cannula, does not seem to be in any distress, however she seems to be generally weak. Her initial back surgery was 02/24, another back surgery was done on 03/09, and EGD was done on 03/09 patient is on amiodarone at 0.5 mg/m, seems to have regular rhythm, she may be in atrial flutter. She is on normal saline at 50 mL per hour. Again plans are in progress to consider transferring the patient to another institution. WBC count today is 13.5 hemoglobin is 9.2. Lites are normal, renal profile is normal Reevaluated today on 04/11/2022, patient is basically about the same, remained generally weak and debilitated. Her hemoglobin is holding, her hemoglobin yesterday was 8.4, is 8.9 today. No further episodes of GI bleeding at present, nonetheless the patient is going to be transferred to [facility] hopefully sometime today, she was accepted, and waiting for a bed to become available. MRI of the brain yesterday showed small vessel ischemic change, otherwise no ac yolanda process noted. Basic metabolic profile today is relatively normal, renal profile is normal. Patient was reevaluated today on 04/12/22, remains in the ICU, waiting for a bed at [facility]. Patient has no further active bleeding, and her hemoglobin is stable at 9 today. IV fluid at 50 mL per hour. Patient is on room air, and she is not in any distress, but she generally weak frail and debilitated. Reevaluated today on 04/13/22, patient is basically about the same, remained ge nerally weak, today I recommended serum cortisol level which came back within normal range, and this is not a picture of adrenal insufficiency. Her IV fluid is at 50 mL per hour using normal saline. Patient was given Narcan around 4:20 AM because she was noted to be unresponsive, ABG showed a pO2 of 111 pCO2 46 pH of 7.34, patient responded well to Narcan. Today I noted that the patient has been on antibiotics long time, I believe the antibiotics should be discontinued.no further episodes of GI bleeding, and I believe the patient should be considered to transfer to rehab facility. Patient was reevaluated today on 04/02/22, patient is back in the ICU, she underwentIrrigation and excisional debridement of lumbar spine [id number] cm using the Skin knife used for excision of necrotic skin, soft tissue and muscl Curette used to excise necrotic fat and soft tissu Kerrison used to remove bone. Postoperatively the patient was sent to the ICU on mechanical ventilation.she is still on mechanical ventilation, had she is on assist control rate of 16, 1 of 450 FiO2 40% and PEEP of 5. ABG showed a pO2 of 189 pCO2 of 37 pH of 7.36, hence I cut the patient down to rate of 14, tidal volume increased to 500, and kept her on 50% FiO2. Patient was having low urine output last night, she received 2 L of fluid boluses, she also received a 1 unit of packed RBCs for hemoglobin of 6.3, hemoglobin today is 8.1. Considering her urine output remains marginal, I went ahead and recommended Lasix 40 mg IV push this morning. Patient remains on multiple antibiotics including get access, cefepime, and vancomycin. Her IV fluids at 50 mL per hour, and she is on propofol at 25 mcg/kg/m. Nutrition will be addressed today, may consider starting the patient enteral feeding, however I would wait to decide on the feeding once the patient is extubated, hopefully I will extubate the patient today. I did transition the patient after she became a bit more awake to pressure support of 10 and CPAP, and we will be checking a blood gases later on on that mode of weaning. Chest x-ray showed mostly right lower lobe atelectasis otherwise unremarkable.she does have chronically elevated right hemidiaphragm. And basilar atelectasis. Objective - Vital Signs Vital signs: Vital Signs Temp 97.2 F L 04/15/22 08:00 Pulse 73 04/15/22 10:00 Resp 17 04/15/22 10:00 BP 135/67 04/15/22 08:00 Pulse Ox 98 04/15/22 09:45 FiO2 40 04/15/22 09:24 Intake & Output 04/14/22 04/15/22 04/15/22 18:59 06:59 18:59 Intake Total 659.635 1384.698 829.294 Output Total 320 1165 40 Balance 131.607 753.698 789.294 Weight 127.777 kg 135.5 kg Intake: IV 450 600 750 Anidulafungin 100 mg In 100 Sodium Chloride 0.9% 100 ml @ 84 mls/hr IVPB DAILY [facility] Rx#:[id number] Cefepime 1 gm In Sodium 50 Chloride 0.9% 50 ml @ 12. 5 mls/hr IVPB Q8HR [facility] Rx #:[id number] Sodium Chloride 0.9% 1, 50 600 100 000 ml @ 50 mls/hr IV . Q20H [facility] Rx#:[id number] Vancomycin 2,000 mg In 500 Sodium Chloride 0.9% 500 ml 500 ml @ 167 mls/hr IVPB Q12HR [facility] Rx#: [id number] Intake, IV Titration 1.607 740.698 79.294 Amount Norepinephrine 8 mg In 1.607 94.650 7.418 Sodium Chloride 0.9% 250 ml @ 0.03 MCG/KG/MIN 7. 417 mls/hr IV .Q24H COUNT INCLUDES THE [facility] Rx#:[id number] Sodium Chloride 0.9% 500 500 ml 500 ml @ 999 mls/hr IV .Q31M ONE Rx#:[id number] propofoL 1,000 mg In 146.048 71.876 Empty Bag 1 bag @ 15 MCG/ KG/MIN 11.5 mls/hr IV . Q8H42M COUNT INCLUDES THE [facility] Rx#:[id number] Blood Product 278 Rc Pheresis As-3 Unit 278 [id number] Other 300 Output: Urine 220 165 40 Stool 1000 Estimated Blood Loss 100 Other: Voiding Method Indwelling Catheter Indwelling Catheter Indwelling Catheter ABP, PAP, CO, CI - Last Documented Arterial Blood Pressure 162/66 - Exam Physical Exam: Revealed a 71-year-old female in no distress. intubated and mechanically ventilated. Head: Atraumatic, normocephalic.endotracheal tube and HEENT:[Neck is supple.] [No neck masses.] [No thyromegaly.] [No JVD.] Triple- lumen catheter noted in the right IJ. Chest: [symmetrical chest expansion, diminished breath sounds at the bases, no rhonchi and no wheezes.] Cardiac Exam: Regular rhythm, normal S1 and S2, no S3 gallop, no murmur.] Abdomen: [Soft, nontender, no megaly, no rebound, no guarding, normal bowel sounds.] Extremities: [No clubbing, no edema, no cyanosis.] Neurological Exam:cannot fully assess, patient is sedated, on propofol which I am tapering down to switch the patient to pressure support and CPAP mode of mechanical ventilation. Psychiatric: could not assess. Skin: No rashes. - Labs CBC & Chem 7: 04/15/22 05:50 04/15/22 05:50 Labs: Abnormal Lab Results - Last 24 Hours (Table) 04/14/22 04/14/22 04/14/22 Range/Units 05:44 05:44 19:49 WBC 10.73 H 14.0 H (4.50-10.00) X 10*3/uL RBC 2.79 L 2.51 L (4.10-5.20) X 10*6/uL Hgb 8.4 L 7.7 L (12.0-15.0) g/dL Hct 28.2 L 24.5 L (37.2-46.3) % MCV 101.1 H (80.0-97.0) fL MCHC 29.8 L (32.0-37.0) g/dL RDW 24.5 H 24.6 H (11.5-14.5) % Plt Count 83 L 100 L D (140-440) X 10*3/uL Plt Count Comment DECREASED A MPV 13.6 H (9.5-12.2) fL Absolute Nucleated RBC 0.69 H (0.00-0.00) X 10*3/uL Immature Gran # 0.52 H (0.00-0.04) X 10*3/uL Neutrophils # (1.3-7.7) k/uL Neutrophils # (Manual) (1.3-7.7) k/uL Eosinophils # 0 L (0.04-0.35) X 10*3/uL Nucleated RBCs (0-0) /100 WBC NRBC/100 WBC Diff 6.4 H (0.0-0.0) /100 WBCS Immature Plt Fraction 14.3 H (1.1-6.1) % ABG pO2 (83-108) mmHg ABG O2 Saturation (94-97) % Potassium (3.5-5.1) mmol/L Chloride (98-107) mmol/L Carbon Dioxide (22-30) mmol/L BUN (7-17) mg/dL Creatinine (0.52-1.04) mg/dL Glucose (74-99) mg/dL Calcium (8.4-10.2) mg/dL Phosphorus 2.0 L (2.5-4.5) mg/dL ALT (4-34) U/L Total Protein (6.3-8.2) g/dL Albumin (3.5-5.0) g/dL Crossmatch 04/14/22 04/14/22 04/15/22 Range/Units 19:49 20:03 00:05 WBC (4.50-10.00) X 10*3/uL RBC 2.05 L (4.10-5.20) X 10*6/uL Hgb 6.3 L* (12.0-15.0) g/dL Hct 20.0 L (37.2-46.3) % MCV (80.0-97.0) fL MCHC (32.0-37.0) g/dL RDW 24.8 H (11.5-14.5) % Plt Count 82 L (140-440) X 10*3/uL Plt Count Comment MPV (9.5-12.2) fL Absolute Nucleated RBC (0.00-0.00) X 10*3/uL Immature Gran # (0.00-0.04) X 10*3/uL Neutrophils # 7.8 H (1.3-7.7) k/uL Neutrophils # (Manual) (1.3-7.7) k/uL Eosinophils # (0.04-0.35) X 10*3/uL Nucleated RBCs (0-0) /100 WBC NRBC/100 WBC Diff (0.0-0.0) /100 WBCS Immature Plt Fraction (1.1-6.1) % ABG pO2 330 H (83-108) mmHg ABG O2 Saturation 100.0 H (94-97) % Potassium 3.3 L (3.5-5.1) mmol/L Chloride 116 H (98-107) mmol/L Carbon Dioxide (22-30) mmol/L BUN 21 H (7-17) mg/dL Creatinine 0.44 L (0.52-1.04) mg/dL Glucose 105 H (74-99) mg/dL Calcium 7.3 L (8.4-10.2) mg/dL Phosphorus (2.5-4.5) mg/dL ALT (4-34) U/L Total Protein (6.3-8.2) g/dL Albumin 1.7 L (3.5-5.0) g/dL Crossmatch 04/15/22 04/15/22 04/15/22 Range/Units 01:22 05:17 05:50 WBC 10.8 H (4.50-10.00) X 10*3/uL RBC 2.67 L (4.10-5.20) X 10*6/uL Hgb 8.1 L D (12.0-15.0) g/dL Hct 24.5 L (37.2-46.3) % MCV (80.0-97.0) fL MCHC (32.0-37.0) g/dL RDW 24.2 H (11.5-14.5) % Plt Count 86 L (140-440) X 10*3/uL Plt Count Comment MPV (9.5-12.2) fL Absolute Nucleated RBC (0.00-0.00) X 10*3/uL Immature Gran # (0.00-0.04) X 10*3/uL Neutrophils # (1.3-7.7) k/uL Neutrophils # (Manual) 8.70 H (1.3-7.7) k/uL Eosinophils # (0.04-0.35) X 10*3/uL Nucleated RBCs 4 H (0-0) /100 WBC NRBC/100 WBC Diff (0.0-0.0) /100 WBCS Immature Plt Fraction (1.1-6.1) % ABG pO2 189 H (83-108) mmHg ABG O2 Saturation 100.0 H (94-97) % Potassium (3.5-5.1) mmol/L Chloride (98-107) mmol/L Carbon Dioxide (22-30) mmol/L BUN (7-17) mg/dL Creatinine (0.52-1.04) mg/dL Glucose (74-99) mg/dL Calcium (8.4-10.2) mg/dL Phosphorus (2.5-4.5) mg/dL ALT (4-34) U/L Total Protein (6.3-8.2) g/dL Albumin (3.5-5.0) g/dL Crossmatch See Detail 04/15/22 Range/Units 05:50 WBC (4.50-10.00) X 10*3/uL RBC (4.10-5.20) X 10*6/uL Hgb (12.0-15.0) g/dL Hct (37.2-46.3) % MCV (80.0-97.0) fL MCHC (32.0-37.0) g/dL RDW (11.5-14.5) % Plt Count (140-440) X 10*3/uL Plt Count Comment MPV (9.5-12.2) fL Absolute Nucleated RBC (0.00-0.00) X 10*3/uL Immature Gran # (0.00-0.04) X 10*3/uL Neutrophils # (1.3-7.7) k/uL Neutrophils # (Manual) (1.3-7.7) k/uL Eosinophils # (0.04-0.35) X 10*3/uL Nucleated RBCs (0-0) /100 WBC NRBC/100 WBC Diff (0.0-0.0) /100 WBCS Immature Plt Fraction (1.1-6.1) % ABG pO2 (83-108) mmHg ABG O2 Saturation (94-97) % Potassium (3.5-5.1) mmol/L Chloride 117 H (98-107) mmol/L Carbon Dioxide 21 L (22-30) mmol/L BUN 20 H (7-17) mg/dL Creatinine 0.44 L (0.52-1.04) mg/dL Glucose (74-99) mg/dL Calcium 7.4 L (8.4-10.2) mg/dL Phosphorus (2.5-4.5) mg/dL ALT 42 H (4-34) U/L Total Protein 4.0 L (6.3-8.2) g/dL Albumin 2.1 L (3.5-5.0) g/dL Crossmatch Microbiology - Last 24 Hours (Table) 04/14/22 08:45 Blood Culture - Preliminary Blood No Growth after 24 hours 04/15/22 04:00 Sputum Culture - Preliminary Sputum 04/14/22 12:00 Anaerobic Culture - Preliminary Back 04/14/22 16:17 Anaerobic Culture - Preliminary Back 04/14/22 12:00 Wound Culture - Preliminary Back 04/14/22 16:17 Wound Culture - Preliminary Back Assessment and Plan Assessment: Impression: status post irrigation and excisional debridement of lumbar spine, postoperative day #1, this was done for lumbar wound dehiscence recurrent GI bleeding, presently stable. Acute Enterobacter urinary tract infection and sepsis with bacteremia secondary to Enterobacter. antibiotics are being addressed by infectious disease on the case.presently patient is on eraxis cefepime and vancomycin Atrial fibrillation/flutter Leukocytosis. Lumbar decompression/fusion February 05 and on 03/09/22, patient underwent exploration and washout with dural repairs secondary to falls, patient underwentirrigation and excisional debridement of the lumbar spine postoperative day #1. Brief cardiac arrest/Pea in the operating room during her initial surgery. 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 continue antibiotics as per infectious disease on the case. Continue fluid boluses and if the patient does not improve with fluid boluses may give the patient a Hold sedation and assess potential for weaning today. And if the patient is awake and appropriate pain consider a pressure support trial with CPAP. consider enteral feeding via nasogastric tube. It is preferable over TPN. Continue present supportive care measures Continue PPIs. monitor closely in the ICU critical care time is over 30 minutes We'll continue to follow Time with Patient: Greater than 30
[2022-04-15 12:05] LABS: Glucose,Whole Blood 65 mg/dL (70-110)
[2022-04-15 12:05] LABS: Glucose,Whole Blood 103 mg/dL (70-110)
--- NOTE | 2022-04-15 12:09 | PN ---
PROGRESS NOTE SUBJECTIVE: Gabrielle is a 71-year-old lady, who is readmitted to ICU because of dehiscence of her back, for which she needed to undergo surgery and is currently intubated and on the vent. She had GI bleed, for which she underwent EGD and was found to have gastritis. At the time of my evaluation, the patient is intubated on the vent. OBJECTIVE: VITAL SIGNS: O2 saturation is 93%. Heart rate is 73 beats per minute. It appears like atrial flutter with 4:1 block. Blood pressure is 135/73, respiratory rate is 18. CHEST: Reveals diminished air entry bilaterally with occasional rhonchi. HEART: Reveals first and second heart sounds. No gallop. ABDOMEN: Soft. EXTREMITIES: Did not reveal any edema. LABORATORY DATA: Labs show a hemoglobin of 8.1, platelet count is 86, potassium is 3.5, creatinine is 0.4. She is on amiodarone 200 mg daily, metoprolol, and verapamil. However, the patient who had issues of atrial fibrillation with poorly controlled ventricular rate since surgery has had problems of pauses and slow ventricular rate. ASSESSMENT: 1. Persistent atrial fibrillation/atypical atrial flutter. 2. Gastrointestinal bleed. 3. Status post back surgery. PLAN: I am going to continue the amiodarone, cut back on the dose of metoprolol as she is bradycardic, and hold the verapamil at this time. MMODL / ELIZABETHN: [id number] /
[2022-04-15] MEDS: HYDROmorphone 0.5 MG/0.5 ML SYRINGE IVP PRN (15:17)
[2022-04-15 15:20] LABS: Glucose,Whole Blood 101 mg/dL (70-110)
--- NOTE | 2022-04-15 15:48 | P.PN ---
Subjective Progress Note Date: 04/15/22 Principal diagnosis: UTI and bacteremia Patient is a 71-year-old female with a past medical history difficult for atrial fibrillation flutter hypertension hyperlipidemia hypothyroidism right breast cancer electively admitted to the hospital on 02/24/2022 for T10 to lumb ar spine revision decompression and posterior lateral interbody fusion, patient did have a episode of hypotension and elevated white count requiring admission to the ICU patient did have Enterobacter urinary tract infection and bacteremia and patient did have exploration of the thoracolumbar incision completed on 03/09/2022 with apparently no evidence of any abscess, patient subsequently did have dehiscence of the lower lumbar incision and a low-grade fever on 04/14/2022 for the patient was taken back to the OR on 04/14/2022 status post washout and closure of the wound. On today's evaluation that is 04/15/2022 the patient is afebrile, patient is currently intubated on the vent with FiO2 40% no significant purulent secretions through ET, patient is requiring a low-dose pressor support, no vomiting diarrhea or any other changes reported by the nursing staff Objective - Vital Signs Vital signs: Vital Signs Temp 98.2 F 04/15/22 12:00 Pulse 74 04/15/22 13:00 Resp 14 04/15/22 13:00 BP 135/67 04/15/22 13:00 Pulse Ox 100 04/15/22 13:00 FiO2 40 04/15/22 12:00 Intake & Output 04/14/22 04/15/22 04/15/22 18:59 06:59 18:59 Intake Total 070.786 8793.698 887.217 Output Total 320 1165 615 Balance 131.607 753.698 272.217 Weight 127.777 kg 135.5 kg Intake: IV 450 600 800 Anidulafungin 100 mg In 100 Sodium Chloride 0.9% 100 ml @ 84 mls/hr IVPB DAILY [facility] Rx#:[id number] Cefepime 1 gm In Sodium 50 Chloride 0.9% 50 ml @ 12. 5 mls/hr IVPB Q8HR [facility] Rx #:[id number] Sodium Chloride 0.9% 1, 50 600 150 000 ml @ 50 mls/hr IV . Q20H [facility] Rx#:[id number] Vancomycin 2,000 mg In 500 Sodium Chloride 0.9% 500 ml 500 ml @ 167 mls/hr IVPB Q12HR [facility] Rx#: [id number] Intake, IV Titration 1.607 740.698 87.217 Amount Norepinephrine 8 mg In 1.607 94.650 7.418 Sodium Chloride 0.9% 250 ml @ 0.03 MCG/KG/MIN 7. 417 mls/hr IV .Q24H [facility] Rx#:[id number] Sodium Chloride 0.9% 500 500 ml 500 ml @ 999 mls/hr IV .Q31M [facility] Rx#:[id number] propofoL 1,000 mg In 146.048 79.799 Empty Bag 1 bag @ 15 MCG/ KG/MIN 11.5 mls/hr IV . Q8H42M [facility] Rx#:[id number] Blood Product 278 Rc Pheresis As-3 Unit 278 [id number] Other 300 Output: Urine 220 165 615 Stool 1000 Estimated Blood Loss 100 Other: Voiding Method Indwelling Catheter Indwelling Catheter Indwelling Catheter ABP, PAP, CO, CI - Last Documented Arterial Blood Pressure 130/52 - Exam GENERAL DESCRIPTION: An elderly female intubated on the vent RESPIRATORY SYSTEM: Unlabored breathing , decreased breath sounds at bases HEART: S1 S2 regular rate and rhythm , ABDOMEN: Soft , no tenderness EXTREMITIES: Diffuse swelling bilateral lower extremity 1 - Labs CBC & Chem 7: 04/15/22 05:50 04/15/22 05:50 Labs: Abnormal Lab Results - Last 24 Hours (Table) 04/14/22 04/14/22 04/14/22 Range/Units 05:44 05:44 19:49 WBC 10.73 H 14.0 H (4.50-10.00) X 10*3/uL RBC 2.79 L 2.51 L (4.10-5.20) X 10*6/uL Hgb 8.4 L 7.7 L (12.0-15.0) g/dL Hct 28.2 L 24.5 L (37.2-46.3) % MCV 101.1 H (80.0-97.0) fL MCHC 29.8 L (32.0-37.0) g/dL RDW 24.5 H 24.6 H (11.5-14.5) % Plt Count 83 L 100 L D (140-440) X 10*3/uL Plt Count Comment DECREASED A MPV 13.6 H (9.5-12.2) fL Absolute Nucleated RBC 0.69 H (0.00-0.00) X 10*3/uL Immature Gran # 0.52 H (0.00-0.04) X 10*3/uL Neutrophils # (1.3-7.7) k/uL Neutrophils # (Manual) (1.3-7.7) k/uL Eosinophils # 0 L (0.04-0.35) X 10*3/uL Nucleated RBCs (0-0) /100 WBC NRBC/100 WBC Diff 6.4 H (0.0-0.0) /100 WBCS Immature Plt Fraction 14.3 H (1.1-6.1) % ABG pO2 (83-108) mmHg ABG O2 Saturation (94-97) % Potassium (3.5-5.1) mmol/L Chloride (98-107) mmol/L Carbon Dioxide (22-30) mmol/L BUN (7-17) mg/dL Creatinine (0.52-1.04) mg/dL Glucose (74-99) mg/dL POC Glucose (mg/dL) (70-110) mg/dL Calcium (8.4-10.2) mg/dL Phosphorus 2.0 L (2.5-4.5) mg/dL ALT (4-34) U/L Total Protein (6.3-8.2) g/dL Albumin (3.5-5.0) g/dL Crossmatch 04/14/22 04/14/22 04/15/22 Range/Units 19:49 20:03 00:05 WBC (4.50-10.00) X 10*3/uL RBC 2.05 L (4.10-5.20) X 10*6/uL Hgb 6.3 L* (12.0-15.0) g/dL Hct 20.0 L (37.2-46.3) % MCV (80.0-97.0) fL MCHC (32.0-37.0) g/dL RDW 24.8 H (11.5-14.5) % Plt Count 82 L (140-440) X 10*3/uL Plt Count Comment MPV (9.5-12.2) fL Absolute Nucleated RBC (0.00-0.00) X 10*3/uL Immature Gran # (0.00-0.04) X 10*3/uL Neutrophils # 7.8 H (1.3-7.7) k/uL Neutrophils # (Manual) (1.3-7.7) k/uL Eosinophils # (0.04-0.35) X 10*3/uL Nucleated RBCs (0-0) /100 WBC NRBC/100 WBC Diff (0.0-0.0) /100 WBCS Immature Plt Fraction (1.1-6.1) % ABG pO2 330 H (83-108) mmHg ABG O2 Saturation 100.0 H (94-97) % Potassium 3.3 L (3.5-5.1) mmol/L Chloride 116 H (98-107) mmol/L Carbon Dioxide (22-30) mmol/L BUN 21 H (7-17) mg/dL Creatinine 0.44 L (0.52-1.04) mg/dL Glucose 105 H (74-99) mg/dL POC Glucose (mg/dL) (70-110) mg/dL Calcium 7.3 L (8.4-10.2) mg/dL Phosphorus (2.5-4.5) mg/dL ALT (4-34) U/L Total Protein (6.3-8.2) g/dL Albumin 1.7 L (3.5-5.0) g/dL Crossmatch 04/15/22 04/15/22 04/15/22 Range/Units 01: 05:17 05:50 WBC 10.8 H (4.50-10.00) X 10*3/uL RBC 2.67 L (4.10-5.20) X 10*6/uL Hgb 8.1 L D (12.0-15.0) g/dL Hct 24.5 L (37.2-46.3) % MCV (80.0-97.0) fL MCHC (32.0-37.0) g/dL RDW 24.2 H (11.5-14.5) % Plt Count 86 L (140-440) X 10*3/uL Plt Count Comment MPV (9.5-12.2) fL Absolute Nucleated RBC (0.00-0.00) X 10*3/uL Immature Gran # (0.00-0.04) X 10*3/uL Neutrophils # (1.3-7.7) k/uL Neutrophils # (Manual) 8.70 H (1.3-7.7) k/uL Eosinophils # (0.04-0.35) X 10*3/uL Nucleated RBCs 4 H (0-0) /100 WBC NRBC/100 WBC Diff (0.0-0.0) /100 WBCS Immature Plt Fraction (1.1-6.1) % ABG pO2 189 H (83-108) mmHg ABG O2 Saturation 100.0 H (94-97) % Potassium (3.5-5.1) mmol/L Chloride (98-107) mmol/L Carbon Dioxide (22-30) mmol/L BUN (7-17) mg/dL Creatinine (0.52-1.04) mg/dL Glucose (74-99) mg/dL POC Glucose (mg/dL) (70-110) mg/dL Calcium (8.4-10.2) mg/dL Phosphorus (2.5-4.5) mg/dL ALT (4-34) U/L Total Protein (6.3-8.2) g/dL Albumin (3.5-5.0) g/dL Crossmatch See Detail 04/15/22 04/15/22 Range/Units 05:50 12:01 WBC (4.50-10.00) X 10*3/uL RBC (4.10-5.20) X 10*6/uL Hgb (12.0-15.0) g/dL Hct (37.2-46.3) % MCV (80.0-97.0) fL MCHC (32.0-37.0) g/dL RDW (11.5-14.5) % Plt Count (140-440) X 10*3/uL Plt Count Comment MPV (9.5-12.2) fL Absolute Nucleated RBC (0.00-0.00) X 10*3/uL Immature Gran # (0.00-0.04) X 10*3/uL Neutrophils # (1.3-7.7) k/uL Neutrophils # (Manual) (1.3-7.7) k/uL Eosinophils # (0.04-0.35) X 10*3/uL Nucleated RBCs (0-0) /100 WBC NRBC/100 WBC Diff (0.0-0.0) /100 WBCS Immature Plt Fraction (1.1-6.1) % ABG pO2 (83-108) mmHg ABG O2 Saturation (94-97) % Potassium (3.5-5.1) mmol/L Chloride 117 H (98-107) mmol/L Carbon Dioxide 21 L (22-30) mmol/L BUN 20 H (7-17) mg/dL Creatinine 0.44 L (0.52-1.04) mg/dL Glucose (74-99) mg/dL POC Glucose (mg/dL) 65 L (70-110) mg/dL Calcium 7.4 L (8.4-10.2) mg/dL Phosphorus (2.5-4.5) mg/dL ALT 42 H (4-34) U/L Total Protein 4.0 L (6.3-8.2) g/dL Albumin 2.1 L (3.5-5.0) g/dL Crossmatch Microbiology - Last 24 Hours (Table) 04/14/22 08:45 Blood Culture - Preliminary Blood No Growth after 24 hours 04/15/22 04:00 Sputum Culture - Preliminary Sputum 04/14/22 12:00 Anaerobic Culture - Preliminary Back 04/14/22 16:17 Anaerobic Culture - Preliminary Back 04/14/22 12:00 Wound Culture - Preliminary Back 04/14/22 16:17 Wound Culture - Preliminary Back Assessment and Plan (1) Sepsis Current Visit: Yes Status: Acute Code(s): A41.9 - SEPSIS, UNSPECIFIED ORGANISM SNOMED Code(s): 35869617 Plan: 1-patient with a cath associated UTI urine has been positive for Patsy albicans, patient to continue with Eraxis , 2patient with evidence of surgical wound dehiscence of the lumbar incision in this patient who is status post surgical debridement and closure of the wound along with deep culture which are currently pending patient will continue with the vancomycin and cefepime while waiting for the cultures to finalize and monitor clinical course closely Time with Patient: Less than 30
[2022-04-15] MEDS ORDERED: [UNRECOGNIZED DRUG - REMARK] IV SCH ×8 (17:00)
[2022-04-15 18:48] LABS: Glucose,Whole Blood 101 mg/dL (70-110)
[2022-04-15] MEDS: NOREPINEPHRINE 8 MG in SODIUM CHLORIDE 0.9% 250 ML IV SCH (19:52)
[2022-04-15] MEDS: MIRTAZAPINE 15 MG TAB PO SCH (20:00)
[2022-04-15 23:36] LABS: Glucose,Whole Blood 106 mg/dL (70-110)
[2022-04-16] MEDS: POTASSIUM BICARBONATE/CIT AC 20 MEQ TABLET.EFF NG-TUBE SCH ×2 (01:16→02:11)
[2022-04-16] MEDS: SODIUM CHLORIDE 0.9% 1,000 ML IV SCH (02:12)
[2022-04-16] MEDS: IPRATROPIUM-ALBUTEROL 3 ML NEB INHALATION SCH ×5 (03:37→19:21)
[2022-04-16 05:01] LABS: Anisocytosis Marked; HCT 25.2 % (34.0-46.0); HGB 8.3 gm/dL (11.4-16.0); Hypochromasia Slight; MCHC 32.9 g/dL (31.0-37.0); MCV 91.2 fL (80.0-100.0); Macrocytosis Slight; Mean Platelet Volume 9.8; Platelet Count 111 k/uL (150-450); Poikilocytosis Marked; RBC 2.76 m/uL (3.80-5.40); RDW 24.2 % (11.5-15.5)
[2022-04-16 05:29] LABS: ABG Base Excess -1.7 mmol/L; ABG HCO3 23 mmol/L (21-25); ABG PCO2 35 mmHg (35-45); ABG PH 7.42 (7.35-7.45); ABG PO2 158 mmHg (83-108); ABG TCO2 24 mmol/L (19-24); Allen Test Performed? Yes
[2022-04-16 05:50] LABS: Glucose,Whole Blood 91 mg/dL (70-110)
[2022-04-16] MEDS: INSULIN ASPART (NovoLOG) 100 UNIT/ML VIAL SQ SCH ×4 (05:51→23:50)
[2022-04-16] MEDS: LEVOTHYROXINE 88 MCG TAB PO SCH (05:51)
[2022-04-16] MEDS: ACETAMINOPHEN TAB 500 MG TAB PO SCH ×4 (05:51→23:49)
[2022-04-16 05:53] LABS: Anisocytosis (M) Present; Large Platelets Present; Lymphocytes # (M) 1.02 k/uL (1.0-4.8); Monocytes # (M) 0.51 k/uL (0-1.0); Neutrophils % (M) 89 %; Nucleated Red Blood Cells 7 /100 WBC (0-0); Poikilocytosis (M) Present; Polychromasia Present; Total Cells Counted 200; WBC 12.7 k/uL (3.8-10.6)
[2022-04-16] MEDS: MIDODRINE 5 MG TAB PO SCH ×3 (06:31→17:10)
--- NOTE | 2022-04-16 07:17 | XR ---
EXAMINATION TYPE: XR chest 1V portable DATE OF EXAM: 04/16/2022 6:26 AM COMPARISON: Chest radiograph from one day prior. TECHNIQUE: XR chest 1V portable Portable AP radiograph of the chest. CLINICAL INDICATION:Female, 71 years old with history of Tube placement; FINDINGS: Lungs/Pleura: Persistent right-sided airspace opacities likely representing layering pleural effusion There is no evidence of consolidation, or pneumothorax. Pulmonary vascularity: Unremarkable. Heart/mediastinum: Cardiomediastinal silhouette is partially obscured due to overlying and adjacent o pacities. Musculoskeletal: No acute osseous pathology. Lines/Tubes: Endotracheal tube with distal tip 5.5 cm above the adiel. Nasogastric tube with its distal tip and side-port projecting under the diaphragm. Left-sided PICC with distal tip at the superior vena cava/brachiocephalic confluence. IMPRESSION: Similar suspect right layering pleural effusion. Support tubes in appropriate position
[2022-04-16] MEDS ORDERED: FUROSEMIDE 10 MG/ML 4 ML VIAL IV STA (07:23)
[2022-04-16] MEDS: CEFEPIME 1 GM in SODIUM CHLORIDE 0.9% 50 ML IVPB SCH ×3 (07:46→23:49)
[2022-04-16] MEDS: CHLORHEXIDINE GLUCONATE 15 ML CUP MUCOUS MEM SCH (07:46)
[2022-04-16] MEDS: PANTOPRAZOLE 40 MG/10 ML VIAL IVP SCH ×2 (07:46→20:26)
[2022-04-16] MEDS: LACTULOSE 20 GM/30 ML CUP PO SCH ×2 (07:46→20:26)
[2022-04-16] MEDS: ANIDULAFUNGIN 100 MG in SODIUM CHLORIDE 0.9% 100 ML IVPB SCH (07:46)
[2022-04-16] MEDS: METOPROLOL TARTRATE 50 MG TAB PO SCH ×2 (07:47→20:27)
[2022-04-16] MEDS: ATORVASTATIN 20 MG TAB PO SCH (07:47)
[2022-04-16] MEDS: SODIUM BICARBONATE TAB 650 MG TAB PO SCH ×2 (07:47→20:26)
[2022-04-16] MEDS: DULoxetine HCL 60 MG CAPSULE.DR PO SCH (07:47)
[2022-04-16] MEDS: GABAPENTIN 400 MG CAP PO SCH ×3 (07:47→22:37)
[2022-04-16] MEDS: AMIODARONE 200 MG TAB PO SCH (07:47)
[2022-04-16] MEDS: MAGNESIUM OXIDE 400 MG TAB PO SCH (07:47)
[2022-04-16] MEDS ORDERED: VANCOMYCIN TROUGH DUE 1 EACH MISC MISCELLANE ONE (08:00)
[2022-04-16] MEDS: HYDROmorphone 0.5 MG/0.5 ML SYRINGE IVP PRN ×2 (08:15→12:30)
[2022-04-16 08:31] LABS: African American GFR (CKD) >90 (>60 ml/min/1.73 sqM); Anion Gap 3 mmol/L; Blood Urea Nitrogen 22 mg/dL (7-17); Calcium 7.3 mg/dL (8.4-10.2); Carbon Dioxide 24 mmol/L (22-30); Chloride 116 mmol/L (98-107); Glucose 101 mg/dL (74-99); Non-African American GFR(CKD) >90 (>60 ml/min/1.73 sqM); Potassium 3.6 mmol/L (3.5-5.1); Sodium 143 mmol/L (137-145)
[2022-04-16] MEDS: VERAPAMIL 40 MG TAB PO SCH ×2 (08:39→20:26)
[2022-04-16] MEDS: MAG HYDROX/AL HYDROX/SIMETH 30 ML, diphenhydrAMINE ELIXIR 75 MG, LIDOCAINE VISCOUS 2% 3... PO SCH ×9 (08:39→22:38)
[2022-04-16] MEDS: VANCOMYCIN 2,000 MG in SODIUM CHLORIDE 0.9% 500 ML 500 ML IVPB SCH (08:40)
[2022-04-16] MEDS: SIMETHICONE 40 MG/0.6 ML DROPS 2,000 MG/30 ML BOTTLE PO SCH ×4 (08:40→22:38)
[2022-04-16] MEDS ORDERED: VANCOMYCIN IV PER PHARMACY 1 EACH MISC MISCELLANE PRN (08:44)
[2022-04-16] MEDS ORDERED: POTASSIUM BICARBONATE/CIT AC 20 MEQ TABLET.EFF NG-TUBE SCH (09:00)
--- NOTE | 2022-04-16 09:34 | P.PN ---
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 Surgery was performed 04/14/2022 for wound excision and debridement. Complex closure was performed. We'll continue to follow patient during her stay in hospital. Objective - Vital Signs Vital signs: Vital Signs Temp 97.9 F 04/16/22 08:00 Pulse 111 H 04/16/22 08:00 Resp 17 04/16/22 08:00 BP 135/67 04/15/22 17:45 Pulse Ox 98 04/16/22 08:00 FiO2 40 04/16/22 09:16 Intake & Output 04/15/22 04/16/22 04/16/22 18:59 06:59 18:59 Intake Total 0644.396 6095.644 842.806 Output Total 072 373 1752 Balance 245.424 637.644 -177.194 Weight 135.3 kg Intake: IV 1000 1101.0 750 Anidulafungin 100 mg In 100 100 Sodium Chloride 0.9% 100 ml @ 84 mls/hr IVPB DAILY [facility] Rx#:[id number] Cefepime 1 gm In Sodium 100 50.0 50 Chloride 0.9% 50 ml @ 12. 5 mls/hr IVPB Q8HR [facility] Rx #:[id number] Sodium Chloride 0.9% 1, 300 550 100 000 ml @ 50 mls/hr IV . Q20H [facility] Rx#:[id number] Vancomycin 2,000 mg In 500 501 500 Sodium Chloride 0.9% 500 ml 500 ml @ 167 mls/hr IVPB Q12HR [facility] Rx#: [id number] Intake, IV Titration 125.424 106.644 42.806 Amount Norepinephrine 8 mg In 7.418 Sodium Chloride 0.9% 250 ml @ 0.03 MCG/KG/MIN 7. 417 mls/hr IV .Q24H [facility] Rx#:[id number] propofoL 1,000 mg In 118.006 106.644 42.806 Empty Bag 1 bag @ 15 MCG/ KG/MIN 11.5 mls/hr IV . Q8H42M [facility] Rx#:[id number] Tube Feeding 20 120 20 Other 220 30 Output: Urine 900 910 170 Stool 850 Other: Voiding Method Indwelling Catheter Indwelling Catheter ABP, PAP, CO, CI - Last Documented Arterial Blood Pressure 141/62 - Exam Exam limited due to patient being on the ventilator. Radial pulses are intact, b ilaterally. Cap refill is under 3 seconds in digits of upper extremities. Patient does have full passive range of motion in wrists in flexion/extension and elbows in flexion and extension. Patient does have full passive range of motion bilaterally in ankle dorsi/plantar flexion as well as knee fl exion/extension. Motor exam unable to be performed at this time due to patient being on the ventilator - Labs CBC & Chem 7: 04/16/22 04:55 04/16/22 07:50 Labs: Abnormal Lab Results - Last 24 Hours (Table) 04/15/22 04/15/22 04/16/22 Range/Units 12:01 23:35 04:55 WBC 12.7 H (3.8-10.6) k/uL RBC 2.76 L (3.80-5.40) m/uL Hgb 8.3 L (11.4-16.0) gm/dL Hct 25.2 L (34.0-46.0) % RDW 24.2 H (11.5-15.5) % Plt Count 111 L (150-450) k/uL Neutrophils # (Manual) 11.30 H (1.3-7.7) k/uL Nucleated RBCs 7 H (0-0) /100 WBC ABG pO2 (83-108) mmHg ABG O2 Saturation (94-97) % Potassium 3.3 L (3.5-5.1) mmol/L Chloride (98-107) mmol/L BUN (7-17) mg/dL Glucose (74-99) mg/dL POC Glucose (mg/dL) 65 L (70-110) mg/dL Calcium (8.4-10.2) mg/dL Vancomycin Trough ug/mL 04/16/22 04/16/22 04/16/22 Range/Units 05:14 07:50 07:50 WBC (3.8-10.6) k/uL RBC (3.80-5.40) m/uL Hgb (11.4-16.0) gm/dL Hct (34.0-46.0) % RDW (11.5-15.5) % Plt Count (150-450) k/uL Neutrophils # (Manual) (1.3-7.7) k/uL Nucleated RBCs (0-0) /100 WBC ABG pO2 158 H (83-108) mmHg ABG O2 Saturation 100.0 H (94-97) % Potassium (3.5-5.1) mmol/L Chloride 116 H (98-107) mmol/L BUN 22 H (7-17) mg/dL Glucose 101 H (74-99) mg/dL POC Glucose (mg/dL) (70-110) mg/dL Calcium 7.3 L (8.4-10.2) mg/dL Vancomycin Trough 36.2 H* ug/mL Microbiology - Last 24 Hours (Table) 04/15/22 04:00 Gram Stain - Preliminary Sputum Sputum Culture - Preliminary 04/14/22 12:00 Gram Stain - Preliminary Back Wound Culture - Preliminary 04/14/22 16:17 Gram Stain - Preliminary Back Wound Culture - Preliminary 04/14/22 08:45 Blood Culture - Preliminary Blood No Growth after 24 hours Assessment and Plan Assessment: 1. Lumbar wound dehiscence 2. s/p [id number] decompression and fusion with complex perioperative and post operative course - Postoperative day #2 status post 1. Irrigation and excisional debridement of lumbar spine [id number] cm using the following -Skin knife used for excision of necrotic skin, soft tissue and muscle -Curette used to excise necrotic fat and soft tissue -Kerrison used to remove bone 2. Complex wound closure [id number] cm in a 4 layered fashion. Plan: 1. 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 Patient at bedside this morning in the ICU with sedated with ventilator on. We'll continue follow patient during her stay in hospital. 2. Appreciate medical management 3. Pain management - oxycodone; Dilaudid; Flexeril; gabapentin; Tylenol 4. GI prophylaxis - senna; milk of mag 5. DVT prophylaxis - mechanical 6. PT/OT - WBAT w/walker and assistance 7. Encourage incentive spirometer use Time with Patient: Less than 30
--- NOTE | 2022-04-16 10:24 | P.PN ---
Subjective Progress Note Date: 04/16/22 Principal diagnosis: status post lumbar decompression/fusion Is evaluation of 02/25/2022, the patient is being seen for a follow-up in the intensive care unit. The patient is post laminectomy and fusion/decompression of the spine and this was done on multiple levels. The patient overnight was kept on a mechanical ventilator. This morning, the patient is on propofol which is running at 35 mcg/kg/m. The patient is well sedated and the patient is quite sick sinus with a mechanical ventilator. The patient is requiring no pressors. The patient on normal saline in the at the rate of 50 mL an hour. The patient is on a mechanical ventilator on assist control mode at the rate of 18, tidal volume of 450, FiO2 of 40% with a PEEP of 5. The blood gas from today showed a pH of 7.41 with a pCO2 of 35 and pO2 of 138. Chest x-ray shows smaller lung volumes, some mild elevation of the right hemidiaphragm. ET tube is sitting just at the level of the aortic knob. No evidence of any pneumothorax. No airspace disease or consolidations. The patient also had a CT angiogram that showed no evidence of any pulmonary embolism. That showed atelectatic change in lung bases and various up other lung segments. No effusion. No lung collapse. CAT scan of the lumbosacral spine was also completed. The surgical one-sided dry clean and intact. The Hemovac output is bloody and its minimal at this point in time. The patient is afebrile. The patient is in atrial fibrillation. Rate is controlled. The patient is receiving Dilaudid for pain control.Blood work from today shows a white cell count of 14.7 with a hemoglobin of 10.1 and a platelet count of 232. The patient also has a sodium level of 135, potassium level of 4.4, chloride is 106 with a bicarb of 23 and a BUN of 15 and a creatinine of 0.5. On 04/09/2022, the patient is in the intensive care area that she is having ongoing issues with GI bleeding. Hemoglobin has been fluctuating. I have discussed this issue with the general surgeon on multiple occasions. It was thought that the stool was brown based on the surgeon's evaluation. Nevertheless, this morning, hemoglobin drop down to 4.9 and I witnessed a large quantity of maroon stool and the patient's bed in the morning evaluation. Furthermore, the blood work from today showed a hemoglobin of 4.9 and the patient is obviously having ongoing issues with GI bleeding. She remains on IV Protonix. GI surgeries on the case and he'll remains aware of those changes. Her cardiac rhythm is irregular consistent with age of fibrillation/flutter. No hematemesis. No abdominal pain. Hemodynamically stable despite a significant drop in hemoglobin down to 4.9. The rest of the blood work shows a sodium level of 131, potassium level is at 3.3, BUN is 35 with a creatinine of 0.54. The patient remains on the same antibiotic coverage. The patient remains on a combination of Zosyn and Eraxis. The patient otherwise is still critical and intensive care unit and the activation for now remains episodes of atrial fibrillation fluctuating hemoglobin. Note that the patient also had an issue with itchy fibrillation with rapid ventricular response yesterday. Based on that, the patient was loaded with amiodarone and the patient continues to be on amiodarone at a dose of 0.5 mg/m. Heart rate under better control for now. Reevaluated today on 04/10/2022, patient remains in the ICU, being followed by surgery for her GI bleeding, received a total of 12 units of packed RBCs since admission, and 2 units of platelets. An hemoglobin today is 9.2. Apparently the patient continues to have intermittent episodes of maroon colored stools, and surgery on the case is recommending transfer to a tertiary care institution is there is no GI coverage. Patient is on 4 L nasal cannula, does not seem to be in any distress, however she seems to be generally weak. Her initial back surgery was 02/24, another back surgery was done on 03/09, and EGD was done on 03/09 patient is on amiodarone at 0.5 mg/m, seems to have regular rhythm, she may be in atrial flutter. She is on normal saline at 50 mL per hour. Again plans are in progress to consider transferring the patient to another institution. WBC count today is 13.5 hemoglobin is 9.2. Lites are normal, renal profile is normal Reevaluated today on 04/11/2022, patient is basically about the same, remained generally weak and debilitated. Her hemoglobin is holding, her hemoglobin yesterday was 8.4, is 8.9 today. No further episodes of GI bleeding at present, nonetheless the patient is going to be transferred to [facility] hopefully sometime today, she was accepted, and waiting for a bed to become available. MRI of the brain yesterday showed small vessel ischemic change, otherwise no ac yolanda process noted. Basic metabolic profile today is relatively normal, renal profile is normal. Patient was reevaluated today on 04/12/22, remains in the ICU, waiting for a bed at [facility]. Patient has no further active bleeding, and her hemoglobin is stable at 9 today. IV fluid at 50 mL per hour. Patient is on room air, and she is not in any distress, but she generally weak frail and debilitated. Reevaluated today on 04/13/22, patient is basically about the same, remained ge nerally weak, today I recommended serum cortisol level which came back within normal range, and this is not a picture of adrenal insufficiency. Her IV fluid is at 50 mL per hour using normal saline. Patient was given Narcan around 4:20 AM because she was noted to be unresponsive, ABG showed a pO2 of 111 pCO2 46 pH of 7.34, patient responded well to Narcan. Today I noted that the patient has been on antibiotics long time, I believe the antibiotics should be discontinued.no further episodes of GI bleeding, and I believe the patient should be considered to transfer to rehab facility. Patient was reevaluated today on 04/15/22, patient is back in the ICU, she underwentIrrigation and excisional debridement of lumbar spine [id number] cm using the Skin knife used for excision of necrotic skin, soft tissue and muscl Curette used to excise necrotic fat and soft tissu Kerrison used to remove bone. Postoperatively the patient was sent to the ICU on mechanical ventilation.she is still on mechanical ventilation, had she is on assist control rate of 16, 1 of 450 FiO2 40% and PEEP of 5. ABG showed a pO2 of 189 pCO2 of 37 pH of 7.36, hence I cut the patient down to rate of 14, tidal volume increased to 500, and kept her on 50% FiO2. Patient was having low urine output last night, she received 2 L of fluid boluses, she also received a 1 unit of packed RBCs for hemoglobin of 6.3, hemoglobin today is 8.1. Considering her urine output remains marginal, I went ahead and recommended Lasix 40 mg IV push this morning. Patient remains on multiple antibiotics including get access, cefepime, and vancomycin. Her IV fluids at 50 mL per hour, and she is on propofol at 25 mcg/kg/m. Nutrition will be addressed today, may consider starting the patient enteral feeding, however I would wait to decide on the feeding once the patient is extubated, hopefully I will extubate the patient today. I did transition the patient after she became a bit more awake to pressure support of 10 and CPAP, and we will be checking a blood gases later on on that mode of weaning. Chest x-ray showed mostly right lower lobe atelectasis otherwise unremarkable.she does have chronically elevated right hemidiaphragm. And basilar atelectasis. Reevaluated today on 04/16/2022, patient remains in the ICU, patient did not do well yesterday on a weaning mode of pressure support of 10 and CPAP, hence I placed the patient back on assist control mode and she remains on assist control mode with tidal volume of 500 rate of 14 and FiO2 40% and PEEP of 5. ABG showed a pO2 of 158 pCO2 35 pH of 7.42, hence I cut down her FiO2 down to 35%. Patient had marginal urine output yesterday, but she responded well to Lasix, she seems to be quite edematous, and she developed a right-sided pleural effusion H2 receive more Lasix today. Remains on vancomycin and axis and cefepime. Patient is also on enteral feeding utilizing vital AF. WBC count today is 12.7 hemoglobin is 8.3. Basic metabolic profile is normal. Renal profile is normal. And again her chest x-ray as noted earlier there is a right-sided pleural effusion, hence I am recommending more diuretics. Objective - Vital Signs Vital signs: Vital Signs Temp 97.9 F 04/16/22 08:00 Pulse 91 04/16/22 10:00 Resp 22 04/16/22 10:00 BP 135/67 04/15/22 17:45 Pulse Ox 99 04/16/22 10:00 FiO2 40 04/16/22 09:16 Intake & Output 04/15/22 04/16/22 04/16/22 18:59 06:59 18:59 Intake Total 0901.238 4821.644 882.806 Output Total 894 255 5972 Balance 245.424 637.644 -412.194 Weight 135.3 kg Intake: IV 1000 1101.0 750 Anidulafungin 100 mg In 100 100 Sodium Chloride 0.9% 100 ml @ 84 mls/hr IVPB DAILY [facility] Rx#:[id number] Cefepime 1 gm In Sodium 100 50.0 50 Chloride 0.9% 50 ml @ 12. 5 mls/hr IVPB Q8HR [facility] Rx #:[id number] Sodium Chloride 0.9% 1, 300 550 100 000 ml @ 20 mls/hr IV . Q24H [facility] Rx#:[id number] Vancomycin 2,000 mg In 500 501 500 Sodium Chloride 0.9% 500 ml 500 ml @ 167 mls/hr IVPB Q12HR [facility] Rx#: [id number] Intake, IV Titration 125.424 106.644 42.806 Amount Norepinephrine 8 mg In 7.418 Sodium Chloride 0.9% 250 ml @ 0.03 MCG/KG/MIN 7. 417 mls/hr IV .Q24H [facility] Rx#:[id number] propofoL 1,000 mg In 118.006 106.644 42.806 Empty Bag 1 bag @ 15 MCG/ KG/MIN 11.5 mls/hr IV . Q8H42M [facility] Rx#:[id number] Tube Feeding 20 120 60 Other 220 30 Output: Urine 900 910 445 Stool 850 Other: Voiding Method Indwelling Catheter Indwelling Catheter Indwelling Catheter ABP, PAP, CO, CI - Last Documented Arterial Blood Pressure 147/57 - Exam Physical Exam: Revealed a 71-year-old female in no distress. intubated and mechanically ventilated. Sedated, patient is on propofol at present and I will discontinue propofol and give the patient again a weaning trial. Head: Atraumatic, normocephalic.endotracheal tube and HEENT:[Neck is supple.] [No neck masses.] [No thyromegaly.] [No JVD.] Triple- lumen catheter noted in the right IJ. Chest: [symmetrical chest expansion, diminished breath sounds at the bases, no rhonchi and no wheezes.] Cardiac Exam: Regular rhythm, normal S1 and S2, no S3 gallop, no murmur.] Abdomen: [Soft, nontender, no megaly, no rebound, no guarding, normal bowel sounds.] Extremities: [No clubbing, 3+ bipedal edema, no cyanosis.] Neurological Exam:cannot fully assess on propofol, which will be discontinued. Psychiatric: could not assess. Skin: No rashes. - Labs CBC & Chem 7: 04/16/22 04:55 04/16/22 07:50 Labs: Abnormal Lab Results - Last 24 Hours (Table) 04/15/22 04/15/22 04/16/22 Range/Units 12:01 23:35 04:55 WBC 12.7 H (3.8-10.6) k/uL RBC 2.76 L (3.80-5.40) m/uL Hgb 8.3 L (11.4-16.0) gm/dL Hct 25.2 L (34.0-46.0) % RDW 24.2 H (11.5-15.5) % Plt Count 111 L (150-450) k/uL Neutrophils # (Manual) 11.30 H (1.3-7.7) k/uL Nucleated RBCs 7 H (0-0) /100 WBC ABG pO2 (83-108) mmHg ABG O2 Saturation (94-97) % Potassium 3.3 L (3.5-5.1) mmol/L Chloride (98-107) mmol/L BUN (7-17) mg/dL Glucose (74-99) mg/dL POC Glucose (mg/dL) 65 L (70-110) mg/dL Calcium (8.4-10.2) mg/dL Vancomycin Trough ug/mL 04/16/22 04/16/22 04/16/22 Range/Units 05:14 07:50 07:50 WBC (3.8-10.6) k/uL RBC (3.80-5.40) m/uL Hgb (11.4-16.0) gm/dL Hct (34.0-46.0) % RDW (11.5-15.5) % Plt Count (150-450) k/uL Neutrophils # (Manual) (1.3-7.7) k/uL Nucleated RBCs (0-0) /100 WBC ABG pO2 158 H (83-108) mmHg ABG O2 Saturation 100.0 H (94-97) % Potassium (3.5-5.1) mmol/L Chloride 116 H (98-107) mmol/L BUN 22 H (7-17) mg/dL Glucose 101 H (74-99) mg/dL POC Glucose (mg/dL) (70-110) mg/dL Calcium 7.3 L (8.4-10.2) mg/dL Vancomycin Trough 36.2 H* ug/mL Microbiology - Last 24 Hours (Table) 04/15/22 04:00 Gram Stain - Preliminary Sputum Sputum Culture - Preliminary 04/14/22 12:00 Gram Stain - Preliminary Back Wound Culture - Preliminary 04/14/22 16:17 Gram Stain - Preliminary Back Wound Culture - Preliminary 04/14/22 08:45 Blood Culture - Preliminary Blood No Growth after 24 hours Assessment and Plan Assessment: Impression: status post irrigation and excisional debridement of lumbar spine, postoperative day #2 this was done for lumbar wound dehiscence recurrent GI bleeding, presently stable. Acute Enterobacter urinary tract infection and sepsis with bacteremia secondary to Enterobacter. antibiotics are being addressed by infectious disease on the case.presently patient is on eraxis cefepime and vancomycin Atrial fibrillation/flutter, rate seems to be relatively controlled. Lumbar decompression/fusion February 05 and on 03/09/22, patient underwent exploration and washout with dural repairs secondary to falls, patient underwentirrigation and excisional debridement of the lumbar spine postoperative day #2, done on 04/02 . Brief cardiac arrest/Pea in the operating room during her initial surgery. 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 We will discontinue propofol and again try the patient on a weaning mode with pressure support of 8 and CPAP, and if tolerated will proceed to extubating the patient. continue antibiotics as per infectious disease on the case. Cut down her IV fluid to KVO and diabetes the patient. Sedation interruption and assessment for potential weaning today. consider enteral feeding via nasogastric tube. Even if extubated today we'll continue enteral feeding via nasogastric tube. Continue present supportive care measures Continue PPIs./GI prophylaxis. No further episodes of GI bleeding noted in the last few days monitor closely in the ICU critical care time is over 30 minutes Remains critically ill, prognosis remains guarded. We'll continue to follow
--- NOTE | 2022-04-16 11:01 | PN ---
PROGRESS NOTE SUBJECTIVE: A 71-year-old lady, who is readmitted to ICU because of dehiscence of the surgical site in the back, intubated currently on the vent. She has had problems with bradycardia, but right now, she is in atrial fibrillation with poorly controlled ventricular rate. MEDICATIONS: She is on: 1. Cordarone 200 mg daily. 2. Atorvastatin 20 mg daily. 3. Lasix 40 mg q.8. 4. Lopressor 50 b.i.d. along with midodrine for hypotension. 5. Isoptin. OBJECTIVE: VITAL SIGNS: Heart rate is around 107 beats per minute, blood pressure is 130/82, respiratory rate is 14. CHEST: Reveals diminished air entry at the bases without any crackles or rhonchi. HEART: Reveals first and second heart sounds. Irregular rhythm. ABDOMEN: Soft. EXTREMITIES: Reveals mild edema. LABORATORY DATA: Labs show a potassium of 3.6, creatinine is 0.6. Blood gases show a pH of 7.4, pCO2 of 35, pO2 of 158. ASSESSMENT: 1. Persistent atrial fibrillation with poorly controlled ventricular rate. 2. Vent requiring respiratory failure. 3. Status post back surgery. 4. History of gastrointestinal bleed. PLAN: The patient is not a candidate for anticoagulation at this time. I will continue current medications. MMODL / IJN: [id number] /
--- NOTE | 2022-04-16 11:09 | P.PN ---
Subjective Progress Note Date: 04/16/22 Patient is a 71 yo CF with a hx of A fib s/p ablation, GERD, hypertension, dyslipidemia, and right diaphragmatic paralysis who presented for T10 to Pelvis decompression and fusion with revision. Course complicated by significant blood loss. Patient was on vasopressors, also received TXA gtt. She received 7 L of lactated Ringer's. She received 1 amp of sodium bicarb intaop. She also received albumin. Patient then had a cardiac arrest. During the case she developed A. fib with RVR and then quickly transitioned into bradycardia with a low end-tidal CO2. She received 0.4 of atropine and CPR was started. She received epinephrine 0.5. She achieved ROSC. Total down time was less than 5 minutes. She was extubated on 02/25. She continued to do well but struggled with pain. She was downgraded from ICU on 03/03. On 03/06/22 patient was noted to have a significant drop in hemoglobin from 10.0 down to 7.5 and upon reevaluation on 03/07 was found to have hemoglobin of 5.4, patient required multiple transfusions. She has received a total of 7 units PRBCs and 1 unit of platelets. She underwent a CT abdomen and pelvis and was found to have a large right chest hematoma dilated small bowel concerning for ileus. Patient was evaluated by cardiothoracic surgery and they recommended conservative management. On 03/07, patient was noted to be hypotensive with elevated WBC count of 42.3, with worsening renal function and hyperkalamia. Patient was treated with NS bolus, IV insulin/D50, Albuterol and sodium bicarbonate. She was transferred back to the ICU for septic shock requiring Levophed. Patient was started on Vancomycin and Cefepime. Blood and urine cultures were obtained and positive for Enterobacter. Infectious disease was consulted and patient was continued on Cefepime for treatment of Enterobacter UTI with secondary bacteremia and Vancomycin was discontinued. Patient was later weaned off of vasopressors and again transferred out of the ICU. Patient was started on Lasix for treatment of acute on chronic systolic heart failure with EF of 35-40%. Patient continued on Protonix for GI prophylaxis, amiodarone and metoprolol for atrial fibrillation with RVR sodium bicarb for treatment of metabolic acidosis. Pt's Xarelto remains hold at this time. Patient was evaluated by PMR and is currently not a candidate for inpatient rehab. She has been cleared by orthopedic surgery to start working with physical therapy. On 03/26/22 patient was again found to have elevating leukocytosis and repeat Wound cultures were obtained. Wound cultures were positive for pseudomonas aeruginosa, enterococcus fasciculus, and Patsy albicans. Patient to continue with Zosyn per culture and sensitivity report and as recommended by infectious disease as this may be contamination/colonization however patient is a high risk of infection so we will continue with empiric antibiotic therapy. Overnight on 03/28/22 patient again developed episodes of melena and at that time Dr. Arce, general surgeon was re-consulted. CT abdomen and pelvis revealing bilateral hydronephrosis unable to rule out obstructive etiology, concerns for fecal impaction, and persistent previously known right anterior chest wall hematoma. General surgery following and reevaluated patient secondary to concerns of fecal impaction and started patient on lactulose. Wiley catheter was inserted secondary to bi lateral hydronephrosis and patient was evaluated by urologist recommending continuation of Wiley catheter as bilateral hydronephrosis is believed to be resulting secondary to urinary retention. On the evening of 04/03/21 patient with continued atrial tachycardia and hypotension and unable to take metoprolol secondary to low blood pressures. Patient had episode of hematochezia along with large blood clot and was transferred back to the ICU. Had bedside manual disimpaction with general surgery. Also has a posterior anal fissure could likely because of current bleeding. On a bowel regimen. Hemoglobin continues to down trend. Requiring further blood transfusions. Hemoglobin currently stable. Hemodynamically stable. Patient pending transfer for GI at [facility]. Subjective: Patient doing well off sedation, following commands. CXR from 04/16 reviewed, appears more wet than day prior. Pt rec'd lasix 40mg IV push yesterday twice, now on 40mg IV TID per pulmonology, agree with this. Possible extubation today during discussion with pulmonology. Family meeting planned at 1300 with myself and sons, daughters in law, and hopefully patient too if extubated. PLTs are improving. Seen sitting in semi-upright position, goal is to decompress back wound as much as possible, this was discussed with nursing. Vitals Signs Reviewed. Gen: awake, alert HEENT: normocephalic, atraumatic, good hearing acuity, moist mucous membranes Resp: good air exchange, breathing comfortably with no accessory muscle use CVS: good distal perfusion x 4, tachycardic GI: soft, NTTP, distended, +FMS : no SPT, no CVAT, wiley catheter is present MSK: no pitting edema, no clubbing, wound is dehisced down to spine, does not appear to be foul smelling or have pustular discharge, Neuro: non-focal, moving all extremities Psych: cooperative, euthymic mood Assessment and Plan: GI bleeding, likely lower Acute abdominal pain - resolved Fecal impaction, status post manual disimpaction Posterior Anal fissure -Gen surgery following and managing FMS and laxatives -Continue with Protonix 40 mg IVP twice daily -Hemoglobint stable -Total transfusions are 13U PRBC, 2U FFP -On bowel regimen -Discussed with family on 04/14, transfer to [place] deferred unless HDS from GI Bleeding, currently stable Atrial flutter/fibrillation with RVR Status post Cardiac arrest with ROSC Acute on chronic systolic heart failure -Cardiology following, discussed case on 04/15, metoprolol to 50mg BID,digoxin stopped, verapamil 40mg BID, amiodarone -Continuous telemetry monitoring. -I ordered albumin 25gm on 04/14 PM and patient rec'd lasix 40mg IV once 04/15 for volume overload and intravascular volume depletion -also on Midodrine 10mg AC-TID -Holding anticoagulation due to ongoing GI bleed Poor nutritional intake Severe protein calorie malnutrition Anasarca -Reducing mirtazipine to 7.5mg qHS to reduce somnolence effects while continuing effects on appetite stimulation -Patient getting tube feeds Hypokalemia- resolved Septic shock - resolved Enterobacter cloacae UTI with secondary bacteremia - resolved Lactic acidosis Leukocytosis -resolved Patsy UTI Possible, but not definitive surgical site infection due to poor wound healing - OR cultures pending -Infectious disease following and managing antibiotic course at this time. -ID has patient on Eraxis, vancomycin, cefepime -Discussed with ID that zosyn will be exchanged with cefepime due to thrombocytopenia -thrombocytopenia is improving since discontinuing zosyn. Bilateral hydronephrosis, likely secondary to urinary retention -CT abdomen and pelvis revealing bilateral hydronephrosis unable to rule out obstructive etiology. -Renal function stable -Urology following, recommending continuation of Wiley catheter Prerenal azotemia, improving Hyponatremiaresolving Hyperkalemiaresolved Hypokalemiaresolved Metabolic acidosis, resolved -Continue sodium bicarb 650 mg twice a day -Nephrology following. Prediabetes with hyperglycemia, now hypoglycemia -Likely steroid induced -A1c is 6 -Continue with sliding scale Right breast hematoma - stable T10 to pelvis decompression with fusion Post-op pain -Management per primary admitting Orthopedic surgery team including DVT prophylaxis, pain management, wound/dressing care, weightbearing, and PT/OT . -PT/OT following. -return to OR on 04/14 for revision and washout, site is dehisced but does not appear to be infected since no foul smell or pustular discharge. OR cultures pending, gram stain reviewed 04/16, no organisms seen. Right diaphragmatic paralysis -No interventions for her pulmonology Hyperlipidemia -atorvastatin. History of hypertension -Currently On Midodrine for episodes of hypotension Transaminitis -Likely ischemic hepatitis. -Resolved Thank you for allowing us to participate in the care of this pleasant patient. Do not hesitate to contact us with questions. Someone can be reached from the [facility] hospitalist group all hours of the day at [phone] or via [employer]. Objective - Vital Signs Vital signs: Vital Signs Temp 97.9 F 04/16/22 08:00 Pulse 91 04/16/22 10:00 Resp 22 04/16/22 10:00 BP 135/67 04/15/22 17:45 Pulse Ox 99 04/16/22 10:00 FiO2 40 04/16/22 09:16 Intake & Output 04/15/22 04/16/22 04/16/22 18:59 06:59 18:59 Intake Total 0994.112 7679.644 882.806 Output Total 423 122 1291 Balance 245.424 637.644 -412.194 Weight 135.3 kg Intake: IV 1000 1101.0 750 Anidulafungin 100 mg In 100 100 Sodium Chloride 0.9% 100 ml @ 84 mls/hr IVPB DAILY [facility] Rx#:[id number] Cefepime 1 gm In Sodium 100 50.0 50 Chloride 0.9% 50 ml @ 12. 5 mls/hr IVPB Q8HR [facility] Rx #:[id number] Sodium Chloride 0.9% 1, 300 550 100 000 ml @ 20 mls/hr IV . Q24H [facility] Rx#:[id number] Vancomycin 2,000 mg In 500 501 500 Sodium Chloride 0.9% 500 ml 500 ml @ 167 mls/hr IVPB Q12HR [facility] Rx#: [id number] Intake, IV Titration 125.424 106.644 42.806 Amount Norepinephrine 8 mg In 7.418 Sodium Chloride 0.9% 250 ml @ 0.03 MCG/KG/MIN 7. 417 mls/hr IV .Q24H [facility] Rx#:[id number] propofoL 1,000 mg In 118.006 106.644 42.806 Empty Bag 1 bag @ 15 MCG/ KG/MIN 11.5 mls/hr IV . Q8H42M [facility] Rx#:[id number] Tube Feeding 20 120 60 Other 220 30 Output: Urine 900 910 445 Stool 850 Other: Voiding Method Indwelling Catheter Indwelling Catheter Indwelling Catheter ABP, PAP, CO, CI - Last Documented Arterial Blood Pressure 147/57 - Labs CBC & Chem 7: 04/16/22 04:55 04/16/22 07:50 Labs: Abnormal Lab Results - Last 24 Hours (Table) 04/15/22 04/15/22 04/16/22 Range/Units 12:01 23:35 04:55 WBC 12.7 H (3.8-10.6) k/uL RBC 2.76 L (3.80-5.40) m/uL Hgb 8.3 L (11.4-16.0) gm/dL Hct 25.2 L (34.0-46.0) % RDW 24.2 H (11.5-15.5) % Plt Count 111 L (150-450) k/uL Neutrophils # (Manual) 11.30 H (1.3-7.7) k/uL Nucleated RBCs 7 H (0-0) /100 WBC ABG pO2 (83-108) mmHg ABG O2 Saturation (94-97) % Potassium 3.3 L (3.5-5.1) mmol/L Chloride (98-107) mmol/L BUN (7-17) mg/dL Glucose (74-99) mg/dL POC Glucose (mg/dL) 65 L (70-110) mg/dL Calcium (8.4-10.2) mg/dL Vancomycin Trough ug/mL 01/04/16/22 04/16/22 Range/Units 05:14 07:50 07:50 WBC (3.8-10.6) k/uL RBC (3.80-5.40) m/uL Hgb (11.4-16.0) gm/dL Hct (34.0-46.0) % RDW (11.5-15.5) % Plt Count (150-450) k/uL Neutrophils # (Manual) (1.3-7.7) k/uL Nucleated RBCs (0-0) /100 WBC ABG pO2 158 H (83-108) mmHg ABG O2 Saturation 100.0 H (94-97) % Potassium (3.5-5.1) mmol/L Chloride 116 H (98-107) mmol/L BUN 22 H (7-17) mg/dL Glucose 101 H (74-99) mg/dL POC Glucose (mg/dL) (70-110) mg/dL Calcium 7.3 L (8.4-10.2) mg/dL Vancomycin Trough 36.2 H* ug/mL Microbiology - Last 24 Hours (Table) 04/14/22 08:45 Blood Culture - Preliminary Blood No Growth after 48 hours 04/15/22 04:00 Gram Stain - Preliminary Sputum Sputum Culture - Preliminary 04/14/22 12:00 Gram Stain - Preliminary Back Wound Culture - Preliminary 04/14/22 16:17 Gram Stain - Preliminary Back Wound Culture - Preliminary
--- NOTE | 2022-04-16 11:14 | P.PN ---
Progress Note - Text Progress Note Date: 04/16/22 The patient remains in the ICU on the ventilator. Apparently some vent trials were being performed. Her he will was a 0.3. She shows no sign of GI bleed. On exam vital signs are stable. Abdomen is soft. 4-year-old female with multiple comorbidities clear to previous spinal surgery. Patient will Receive supportive care.
[2022-04-16 11:19] LABS: ABG Base Excess -2.4 mmol/L; ABG HCO3 23 mmol/L (21-25); ABG PCO2 37 mmHg (35-45); ABG PO2 337 mmHg (83-108); ABG TCO2 24 mmol/L (19-24); Allen Test Performed? Yes
[2022-04-16 11:31] LABS: Glucose,Whole Blood 144 mg/dL (70-110)
--- NOTE | 2022-04-16 15:53 | P.PN ---
Progress Note - Text Progress Note Date: 04/16/22 Advance Care Planning Note I spent 75 minutes in advance care planning with patient's 3 sons, 2 grandsons, 2 [id number], and patient's sister in light of the following serious medical conditions including: Acute systolic heart failure with an ejection fraction of 35%, protein calorie malnutrition, critical illness myopathy. We spent our time discussing patient's nutrition, volume status, physical debility, heart function, blood counts in light of transfusion needs, as well as patient's recent revision surgery for poor healing. In our discussion, we talked about how patient's oxygenation is no longer requiring mechanical intubation, however, she does appear to have increased fluid in her lungs as a consequence of severe protein calorie malnutrition and albumin of 2 as well as acute systolic heart failure with an ejection fraction of 35% following her PEA arrest earlier this hospitalization. We discussed her blood transfusion requirements, and how her hemoglobin has been stable despite suspicion of GI bleed, it seems that she does not have an active GI bleed at this time. Furthermore we discovered that her platelets had been low as a consequence of Zosyn, and had been recovering since switching her to cefepime. As such, patient's family would like to defer transfer to a different medical institution as was discussed by prior medical teams given that patient does not appear to have an active GI bleed at this time. Should this change, patient's family would be interested in pursuing transfer to a tertiary care center for GI evaluation. We covered that at this point one of the patient's most pressing issues is her physical debility and nutritional status, as well as wound healing. In order to address this, we discussed the importance of enteral supplemental nutrition, appetite stimulants, taking pressure off of back wound as much as possible with the use of frequent turns as well as prone positioning when patient is able to tolerate prone positioning from an oxygenation standp oint. We discussed options to improve her appetite including medications, motivational counseling, generalized improvement in illness, and participation with physical therapy as much as able. We talked about functional goals, and optimistic outlook of being able to eventually be able to initiate bed to wheelchair transfers, but also the possibility of limited mobility if she does not progress well with physical therapy. We also discussed the total safe length of an NG tube, and the decision point about when to transition her to a PEG tube, if she would want that this would have to be decided in approximately 1 week. Family did ask about hospice, and we decided that the patient herself should be able to participate in this discussion with family in the coming days and that no decision should be made about hospice at this time. However, patient's family did note that patient would not want to be resuscitated again should she be in a position in which her heart stops. In a situation which she required another procedure such as a PEG tube, she would be okay with temporarily reversing CODE STATUS from DO NOT RESUSCITATE/DO NOT INTUBATE. All of family's questions were answered by myself after thorough discussion. Patient's family feels they have a good understanding of the plan of care going forward. In the coming days to week, patient's family will discuss with the patient her wishes regarding how aggressively she like to pursue further care versus focus on comfort alone.
[2022-04-16] MEDS: FUROSEMIDE 10 MG/ML 4 ML VIAL IV SCH ×2 (16:32→23:49)
[2022-04-16 17:50] LABS: Glucose,Whole Blood 162 mg/dL (70-110)
[2022-04-16] MEDS: NOREPINEPHRINE 8 MG in SODIUM CHLORIDE 0.9% 250 ML IV SCH (20:22)
[2022-04-16] MEDS: MIRTAZAPINE 15 MG TAB PO SCH (20:27)
--- NOTE | 2022-04-16 21:33 | P.PN ---
Subjective Progress Note Date: 04/16/22 Principal diagnosis: UTI and bacteremia Patient is a 71-year-old female with a past medical history difficult for atrial fibrillation flutter hypertension hyperlipidemia hypothyroidism right breast cancer electively admitted to the hospital on 02/24/2022 for T10 to lumb ar spine revision decompression and posterior lateral interbody fusion, patient did have a episode of hypotension and elevated white count requiring admission to the ICU patient did have Enterobacter urinary tract infection and bacteremia and patient did have exploration of the thoracolumbar incision completed on 03/09/2022 with apparently no evidence of any abscess, patient subsequently did have dehiscence of the lower lumbar incision and a low-grade fever on 04/14/2022 for the patient was taken back to the OR on 04/14/2022 status post washout and closure of the wound. On today's evaluation that is 04/16/2022 the patient continues to be afebrile, patient has been extubated and is currently on a BiPAP patient is slightly lethargic unable to provide any history patient is hemodynamically stable no vomiting or any other changes reported by the nursing staff Objective - Vital Signs Vital signs: Vital Signs Temp 97.6 F 04/16/22 16:00 Pulse 111 H 04/16/22 17:00 Resp 14 04/16/22 17:00 BP 135/67 04/15/22 17:45 Pulse Ox 96 04/16/22 17:00 FiO2 40 04/16/22 14:00 Intake & Output 04/15/22 04/16/22 04/16/22 18:59 06:59 18:59 Intake Total 3848.829 5426.644 1172.806 Output Total 479 029 9687 Balance 245.424 637.644 -642.194 Weight 135.3 kg Intake: IV 1000 1101.0 830 Anidulafungin 100 mg In 100 100 Sodium Chloride 0.9% 100 ml @ 84 mls/hr IVPB DAILY [facility] Rx#:[id number] Cefepime 1 gm In Sodium 100 50.0 50 Chloride 0.9% 50 ml @ 12. 5 mls/hr IVPB Q8HR [facility] Rx #:[id number] Sodium Chloride 0.9% 1, 300 550 180 000 ml @ 20 mls/hr IV . Q24H [facility] Rx#:[id number] Vancomycin 2,000 mg In 500 501 500 Sodium Chloride 0.9% 500 ml 500 ml @ 167 mls/hr IVPB Q12HR [facility] Rx#: [id number] Intake, IV Titration 125.424 106.644 42.806 Amount Norepinephrine 8 mg In 7.418 Sodium Chloride 0.9% 250 ml @ 0.03 MCG/KG/MIN 7. 417 mls/hr IV .Q24H [facility] Rx#:[id number] propofoL 1,000 mg In 118.006 106.644 42.806 Empty Bag 1 bag @ 15 MCG/ KG/MIN 11.5 mls/hr IV . Q8H42M [facility] Rx#:[id number] Tube Feeding 20 120 210 Other 220 90 Output: Urine 900 910 965 Stool 850 Other: Voiding Method Indwelling Catheter Indwelling Catheter Indwelling Catheter ABP, PAP, CO, CI - Last Documented Arterial Blood Pressure 147/58 - Exam GENERAL DESCRIPTION: An elderly female lying in Bed in no distress RESPIRATORY SYSTEM: Unlabored breathing , decreased breath sounds at bases HEART: S1 S2 regular rate and rhythm , ABDOMEN: Soft , no tenderness EXTREMITIES: Diffuse swelling bilateral lower extremity 1 - Labs CBC & Chem 7: 04/16/22 04:55 04/16/22 07:50 Labs: Abnormal Lab Results - Last 24 Hours (Table) 04/15/22 04/16/22 04/16/22 Range/Units 23:35 04:55 05:14 WBC 12.7 H (3.8-10.6) k/uL RBC 2.76 L (3.80-5.40) m/uL Hgb 8.3 L (11.4-16.0) gm/dL Hct 25.2 L (34.0-46.0) % RDW 24.2 H (11.5-15.5) % Plt Count 111 L (150-450) k/uL Neutrophils # (Manual) 11.30 H (1.3-7.7) k/uL Nucleated RBCs 7 H (0-0) /100 WBC ABG pO2 158 H (83-108) mmHg ABG O2 Saturation 100.0 H (94-97) % Potassium 3.3 L (3.5-5.1) mmol/L Chloride (98-107) mmol/L BUN (7-17) mg/dL Glucose (74-99) mg/dL POC Glucose (mg/dL) (70-110) mg/dL Calcium (8.4-10.2) mg/dL Vancomycin Trough ug/mL 04/16/22 04/16/22 04/16/22 Range/Units 07:50 07:50 11:17 WBC (3.8-10.6) k/uL RBC (3.80-5.40) m/uL Hgb (11.4-16.0) gm/dL Hct (34.0-46.0) % RDW (11.5-15.5) % Plt Count (150-450) k/uL Neutrophils # (Manual) (1.3-7.7) k/uL Nucleated RBCs (0-0) /100 WBC ABG pO2 337 H (83-108) mmHg ABG O2 Saturation 100.0 H (94-97) % Potassium (3.5-5.1) mmol/L Chloride 116 H (98-107) mmol/L BUN 22 H (7-17) mg/dL Glucose 101 H (74-99) mg/dL POC Glucose (mg/dL) (70-110) mg/dL Calcium 7.3 L (8.4-10.2) mg/dL Vancomycin Trough 36.2 H* ug/mL 04/16/22 Range/Units 11:29 WBC (3.8-10.6) k/uL RBC (3.80-5.40) m/uL Hgb (11.4-16.0) gm/dL Hct (34.0-46.0) % RDW (11.5-15.5) % Plt Count (150-450) k/uL Neutrophils # (Manual) (1.3-7.7) k/uL Nucleated RBCs (0-0) /100 WBC ABG pO2 (83-108) mmHg ABG O2 Saturation (94-97) % Potassium (3.5-5.1) mmol/L Chloride (98-107) mmol/L BUN (7-17) mg/dL Glucose (74-99) mg/dL POC Glucose (mg/dL) 144 H (70-110) mg/dL Calcium (8.4-10.2) mg/dL Vancomycin Trough ug/mL Microbiology - Last 24 Hours (Table) 04/14/22 08:45 Blood Culture - Preliminary Blood No Growth after 48 hours 04/15/22 04:00 Gram Stain - Preliminary Sputum Sputum Culture - Preliminary 04/14/22 12:00 Gram Stain - Preliminary Back Wound Culture - Preliminary 04/14/22 16:17 Gram Stain - Preliminary Back Wound Culture - Preliminary Assessment and Plan (1) Sepsis Current Visit: Yes Status: Acute Code(s): A41.9 - SEPSIS, UNSPECIFIED ORGANISM SNOMED Code(s): 45056116 Plan: 1-patient with a cath associated UTI urine has been positive for Patsy albicans, patient to continue with Eraxis , 2patient with evidence of surgical wound dehiscence of the lumbar incision in this patient who is status post surgical debridement and closure of the wound along with deep culture which are currently pending patient did have elevated vancomycin level which has been put on hold pharmacy to adjust the dose we will watch her kidney function closely continue cefepime and monitor clinical course closely Time with Patient: Less than 30
[2022-04-16 23:49] LABS: Glucose,Whole Blood 169 mg/dL (70-110)
[2022-04-17] MEDS: SODIUM CHLORIDE 0.9% 1,000 ML IV SCH (02:59)
[2022-04-17 05:13] LABS: Glucose,Whole Blood 155 mg/dL (70-110)
[2022-04-17 05:43] LABS: African American GFR (CKD) >90 (>60 ml/min/1.73 sqM); Anion Gap 4 mmol/L; Blood Urea Nitrogen 25 mg/dL (7-17); Calcium 7.5 mg/dL (8.4-10.2); Carbon Dioxide 24 mmol/L (22-30); Chloride 117 mmol/L (98-107); Glucose 141 mg/dL (74-99); Non-African American GFR(CKD) 86 (>60 ml/min/1.73 sqM); Sodium 145 mmol/L (137-145)
[2022-04-17 05:44] LABS: Potassium 2.7 mmol/L (3.5-5.1)
[2022-04-17 05:46] LABS: Anisocytosis Marked; HCT 25.5 % (34.0-46.0); HGB 8.3 gm/dL (11.4-16.0); Hypochromasia Slight; MCH 29.8 pg (25.0-35.0); MCHC 32.5 g/dL (31.0-37.0); MCV 91.9 fL (80.0-100.0); Macrocytosis Slight; Mean Platelet Volume 9.3; Platelet Count 113 k/uL (150-450); Poikilocytosis Marked; RBC 2.77 m/uL (3.80-5.40); RDW 24.6 % (11.5-15.5)
[2022-04-17 06:19] LABS: Band Neutrophils % 2 %; Lymphocytes # (M) 2.03 k/uL (1.0-4.8); Metamyelocytes # (M) 0.27 k/uL (0); Metamyelocytes % 2 %; Monocytes # (M) 0.14 k/uL (0-1.0); Neutrophils % (M) 82 %; Nucleated Red Blood Cells 7 /100 WBC (0-0); Poikilocytosis (M) Present; Polychromasia Present; Total Cells Counted 200; WBC 13.5 k/uL (3.8-10.6)
[2022-04-17] MEDS: LEVOTHYROXINE 88 MCG TAB PO SCH (06:31)
[2022-04-17] MEDS: MIDODRINE 5 MG TAB PO SCH ×3 (06:31→17:37)
[2022-04-17] MEDS: ACETAMINOPHEN TAB 500 MG TAB PO SCH ×3 (06:31→17:36)
[2022-04-17] MEDS: POTASSIUM BICARBONATE/CIT AC 20 MEQ TABLET.EFF NG-TUBE SCH ×5 (06:31→17:30)
[2022-04-17] MEDS: INSULIN ASPART (NovoLOG) 100 UNIT/ML VIAL SQ SCH ×3 (06:31→18:33)
--- NOTE | 2022-04-17 07:23 | XR ---
EXAMINATION TYPE: XR chest 1V portable DATE OF EXAM: 04/17/2022 4:40 AM COMPARISON: Chest radiographs from 04/16/2022 TECHNIQUE: XR chest 1V portable Portable AP radiograph of the chest. CLINICAL INDICATION:Female, 71 years old with history of Tube placement; FINDINGS: Lungs/Pleura: Persistent right basilar patchy airspace opacities with blunting of the costophrenic an gle. Right basilar patchy airspace opacities and blunting of the costophrenic angle. No pneumothorax. Elevation the right hemidiaphragm. Pulmonary vascularity: Unremarkable. Heart/mediastinum: Cardiomediastinal silhouette is partially obscured due to overlying and adjacent o pacities. Musculoskeletal: No acute osseous pathology. Other findings: None Lines/Tubes: Interval removal of endotracheal tube. NG tube is redemonstrated with distal tip in the lower esophagus. Left PICC line identified with distal tip in stable position at the superior vena cava/brachiocephali c confluence. IMPRESSION: 1. Small bilateral pleural effusions and associated airspace opacities favored to represent atelecta sis. 2. Interval removal of endotracheal tube. 3. Stable position of left PICC line with tip at the superior vena cava/brachiocephalic confluence. Consider further advancement of approximately 5 cm. 4. Stable position of NG tube with distal tip in the lower esophagus. Recommend advancement of appro ximately 10 cm.
--- NOTE | 2022-04-17 07:38 | P.PN ---
Subjective Progress Note Date: 04/17/22 Principal diagnosis: Typical atrial flutter Patient is pleasant 71-year-old female with history of persistent typical atrial flutter, paroxysmal atrial fibrillation, hypertension, hyperlipidemia. She follows with Dr. Leger. We are consulted for A flutter. She presented for [facility] back [facility]. She underwent back surgery with a long procedure. She was noted to be in atrial flutter throughout the case. After that she became bradycardic and she did have an episode appeared to be brief of severe bradycardia/cardiac arrest and she resuscitated. 03/08/2022 The patient was seen and evaluated this morning. She seems to be hypotensive now require norepinephrine. She remains in atrial flutter with overall controlled heart rate. She is on Cardizem. I'm going to stop the Cardizem and start the patient on amiodarone was bolus and drip giving the low blood pressure requiring vasopressors. Beside that continued oral anticoagulation. Follow-up with the patient. March 092021 The patient was seen and evaluated this morning. She remains in atrial flutter with controlled heart rate. Oral anticoagulation is on hold at this point in the light of bleeding. The hemoglobin this morning is below 7. There is a possibility that the patient might need another back surgery. March 102021 The patient was seen and evaluated this morning beach she underwent another surgery yesterday. She seems to be stable at this point and she is on very small dose of norepinephrine which point to be weaned later on today. Otherwise today she is in normal sinus mechanism. Hemoglobin is a stable. March 112021 The patient was seen and evaluated this morning. She is extubated. She is hemodynamic stable beside being tachycardic and underlying rhythm seems to be A. fib/atrial flutter. The pressure is soft. She just went of vasopressors. I'm going to start the patient on amiodarone IV and switch her to amiodarone by mouth down the line. Hold on any anticoagulation at this point in the light of history of bleeding. Her hemoglobin this morning is 8.9. On examination she seems to be hypervolemic with bilateral lower except his edema March 122021 The patient was seen and evaluated this morning. She remains a stable overall. She was extubated yesterday. She stated "I feel better". Currently she is in atrial fibrillation with overall controlled heart rate. Currently she is on amiodarone IV which I'm going to stop and start amiodarone by mouth. Anticoagulation is on hold right now in the light of recent history of bleeding and low hemoglobin required blood transfusion. Her hemoglobin this morning is 8.9. On examination she seems to be overall euvolemic with mild bilateral lower except his edema. 04/17/2022 The patient was seen this morning. She remains in atrial flutter with overall controlled heart rate on the current dose of verapamil as well as beta nic. I am going to DC verapamil and increase the dose of beta nic giving the cardiomyopathy situation. Her hemoglobin remained stable. Her GFR remains stable as well. She is not on any anticoagulation in the light of history of gastrointestinal bleeding. The chest x-ray showed small bilateral pleural effusion. She continues to be on IV Lasix Objective - Vital Signs Vital signs: Vital Signs Temp 98.6 F 04/17/22 04:00 Pulse 111 H 04/17/22 07:00 Resp 16 04/17/22 07:00 BP 135/67 04/15/22 17:45 Pulse Ox 93 L 04/17/22 07:00 FiO2 40 04/16/22 14:00 Intake & Output 04/16/22 04/17/22 04/17/22 18:59 06:59 18:59 Intake Total 1252.806 860.0 150 Output Total 2014 1495 40 Balance -762.194 -635.0 110 Weight 133.5 kg Intake: IV 880 270.0 20 Anidulafungin 100 mg In 100 Sodium Chloride 0.9% 100 ml @ 84 mls/hr IVPB DAILY [facility] Rx#:[id number] Cefepime 1 gm In Sodium 100 50.0 Chloride 0.9% 50 ml @ 12. 5 mls/hr IVPB Q8HR [facility] Rx #:[id number] Sodium Chloride 0.9% 1, 180 220 20 000 ml @ 20 mls/hr IV . Q24H [facility] Rx#:[id number] Vancomycin 2,000 mg In 500 Sodium Chloride 0.9% 500 ml 500 ml @ 167 mls/hr IVPB Q12HR [facility] Rx#: [id number] Intake, IV Titration 42.806 Amount propofoL 1,000 mg In 42.806 Empty Bag 1 bag @ 15 MCG/ KG/MIN 11.5 mls/hr IV . Q8H42M [facility] Rx#:[id number] Tube Feeding 240 360 30 Other 90 230 100 Output: Urine 1165 1495 40 Stool 850 Other: Voiding Method Indwelling Catheter Indwelling Catheter ABP, PAP, CO, CI - Last Documented Arterial Blood Pressure 133/54 - Constitutional General appearance: Present: no acute distress - Respiratory Respiratory: bilateral: diminished - Cardiovascular Rhythm: irregularly irregular - Labs CBC & Chem 7: 04/17/22 05:10 04/17/22 05:10 Labs: Abnormal Lab Results - Last 24 Hours (Table) 04/16/22 04/16/22 04/16/22 Range/Units 07:50 07:50 11:17 WBC (3.8-10.6) k/uL RBC (3.80-5.40) m/uL Hgb (11.4-16.0) gm/dL Hct (34.0-46.0) % RDW (11.5-15.5) % Plt Count (150-450) k/uL Neutrophils # (Manual) (1.3-7.7) k/uL Metamyelocytes # (Man) (0) k/uL Nucleated RBCs (0-0) /100 WBC ABG pO2 337 H (83-108) mmHg ABG O2 Saturation 100.0 H (94-97) % Potassium (3.5-5.1) mmol/L Chloride 116 H (98-107) mmol/L BUN 22 H (7-17) mg/dL Glucose 101 H (74-99) mg/dL POC Glucose (mg/dL) (70-110) mg/dL Calcium 7.3 L (8.4-10.2) mg/dL Vancomycin Trough 36.2 H* ug/mL 04/16/22 04/16/22 04/16/22 Range/Units 11:29 17:49 23:46 WBC (3.8-10.6) k/uL RBC (3.80-5.40) m/uL Hgb (11.4-16.0) gm/dL Hct (34.0-46.0) % RDW (11.5-15.5) % Plt Count (150-450) k/uL Neutrophils # (Manual) (1.3-7.7) k/uL Metamyelocytes # (Man) (0) k/uL Nucleated RBCs (0-0) /100 WBC ABG pO2 (83-108) mmHg ABG O2 Saturation (94-97) % Potassium (3.5-5.1) mmol/L Chloride (98-107) mmol/L BUN (7-17) mg/dL Glucose (74-99) mg/dL POC Glucose (mg/dL) 144 H 162 H 169 H (70-110) mg/dL Calcium (8.4-10.2) mg/dL Vancomycin Trough ug/mL 04/17/22 04/17/22 04/17/22 Range/Units 05:10 05:10 05:10 WBC 13.5 H (3.8-10.6) k/uL RBC 2.77 L (3.80-5.40) m/uL Hgb 8.3 L (11.4-16.0) gm/dL Hct 25.5 L (34.0-46.0) % RDW 24.6 H (11.5-15.5) % Plt Count 113 L (150-450) k/uL Neutrophils # (Manual) 11.30 H (1.3-7.7) k/uL Metamyelocytes # (Man) 0.27 H (0) k/uL Nucleated RBCs 7 H (0-0) /100 WBC ABG pO2 (83-108) mmHg ABG O2 Saturation (94-97) % Potassium 2.7 L* (3.5-5.1) mmol/L Chloride 117 H (98-107) mmol/L BUN 25 H (7-17) mg/dL Glucose 141 H (74-99) mg/dL POC Glucose (mg/dL) 155 H (70-110) mg/dL Calcium 7.5 L (8.4-10.2) mg/dL Vancomycin Trough ug/mL Microbiology - Last 24 Hours (Table) 04/14/22 08:45 Blood Culture - Preliminary Blood No Growth after 48 hours 04/15/22 04:00 Gram Stain - Preliminary Sputum Sputum Culture - Preliminary 04/14/22 12:00 Gram Stain - Preliminary Back Wound Culture - Preliminary 04/14/22 16:17 Gram Stain - Preliminary Back Wound Culture - Preliminary Assessment and Plan Assessment: ASSESSMENT Status post back surgery Persistent atrial fibrillation Hypertension Hyperlipidemia Cardiomyopathy, ischemic vs non-ischemic Electrolytes imbalance which has improved Back pain History of GI bleeding PLAN Continue the current medical regimen DC verapamil and increase the dose of beta nic Continue monitor the kidney function and electrolytes Follow-up with the patient
[2022-04-17] MEDS: HYDROmorphone 1 MG/ML 1 ML SYRINGE IVP PRN ×3 (08:14→21:25)
[2022-04-17] MEDS: CEFEPIME 1 GM in SODIUM CHLORIDE 0.9% 50 ML IVPB SCH ×2 (08:16→16:07)
--- NOTE | 2022-04-17 10:08 | P.PN ---
Subjective Progress Note Date: 04/17/22 Is evaluation of 02/25/2022, the patient is being seen for a follow-up in the intensive care unit. The patient is post laminectomy and fusion/decompression of the spine and this was done on multiple levels. The patient overnight was kept on a mechanical ventilator. This morning, the patient is on propofol which is running at 35 mcg/kg/m. The patient is well sedated and the patient is quite sick sinus with a mechanical ventilator. The patient is requiring no pressors. The patient on normal saline in the at the rate of 50 mL an hour. The patient is on a mechanical ventilator on assist control mode at the rate of 18, tidal volume of 450, FiO2 of 40% with a PEEP of 5. The blood gas from today showed a pH of 7.41 with a pCO2 of 35 and pO2 of 138. Chest x-ray shows smaller lung volumes, some mild elevation of the right hemidiaphragm. ET tube is sitting just at the level of the aortic knob. No evidence of any pneumothorax. No airspace disease or consolidations. The patient also had a CT angiogram that showed no evidence of any pulmonary embolism. That showed atelectatic change in lung bases and various up other lung segments. No effusion. No lung collapse. CAT scan of the lumbosacral spine was also completed. The surgical one-sided dry clean and intact. The Hemovac output is bloody and its minimal at this point in time. The patient is afebrile. The patient is in atrial fibrillation. Rate is controlled. The patient is receiving Dilaudid for pain control.Blood work from today shows a white cell count of 14.7 with a hemoglobin of 10.1 and a platelet count of 232. The patient also has a sodium level of 135, potassium level of 4.4, chloride is 106 with a bicarb of 23 and a BUN of 15 and a creatinine of 0.5. The patient is seen today 04/17/2022 in follow-up in the intensive care unit. She is status post the T10 to pelvis decompression and fusion on 02/24/2022 with complex perioperative and postoperative course. She had a wound dehiscence and a possible CSF leak on 03/09/2022 and had undergone irrigation and debridement of thoracal lumbar and pelvic skin with dural repair and patch graft and L1. She had undergone a third surgery on 04/14/2022 for lumbar wound dehiscence. Dr. Alexander and performed irrigation and excisional debridement of lumbar spine 30 x 20 x 15 cm with a complex wound closure and a 4-layer fashion. She was initially on the mechanical ventilator and subsequently extubated yesterday 04/16/2022. Currently she is resting fairly comfortably in bed. She is on oxygen at 2 L/m per nasal cannula with O2 saturations in the 90s. Chest x-ray reveals small bilateral pleural effusions and atelectasis.. Left-sided PICC line is in place. She has normal saline at 20 mL per hour. Her norepinephrine has been off for approximately 48 hours. She is being nourished via nasogastric tube with vital AF at 30 mL per hour. She is status post 13 units of packed red blood cells this admission, 2 units of platelets. White count 13.5. Hemoglobin 8.3. Platelets 113. Sodium 145. Potassium 2.7. Chloride 117. BUN 25. Creatinine 0.70. Glucose 141. She is receiving Lasix 40 mg IV every 8 hours. Currently in a -1.4 L balance. Wound cultures are pending. Sputum culture is pending. Previous wound culture from 03/26/2022 was positive for pseudomonas aeruginosa, Enterococcus faecalis and Patsy. She is maintained on her axis, cefepime and vancomycin. Objective - Vital Signs Vital signs: Vital Signs Temp 98.2 F 04/17/22 08:00 Pulse 112 H 04/17/22 09:00 Resp 15 04/17/22 09:00 BP 135/67 04/17/22 09:00 Pulse Ox 93 L 04/17/22 07:00 FiO2 40 04/16/22 14:00 Intake & Output 04/16/22 04/17/22 04/17/22 18:59 06:59 18:59 Intake Total 1252.806 860.0 240 Output Total 2014 1495 140 Balance -762.194 -635.0 100 Weight 133.5 kg Intake: IV 880 270.0 110 Anidulafungin 100 mg In 100 Sodium Chloride 0.9% 100 ml @ 84 mls/hr IVPB DAILY [facility] Rx#:[id number] Cefepime 1 gm In Sodium 100 50.0 50 Chloride 0.9% 50 ml @ 12. 5 mls/hr IVPB Q8HR [facility] Rx #:[id number] Sodium Chloride 0.9% 1, 180 220 60 000 ml @ 20 mls/hr IV . Q24H [facility] Rx#:[id number] Vancomycin 2,000 mg In 500 Sodium Chloride 0.9% 500 ml 500 ml @ 167 mls/hr IVPB Q12HR [facility] Rx#: [id number] Intake, IV Titration 42.806 Amount propofoL 1,000 mg In 42.806 Empty Bag 1 bag @ 15 MCG/ KG/MIN 11.5 mls/hr IV . Q8H42M [facility] Rx#:[id number] Tube Feeding 240 360 30 Other 90 230 100 Output: Urine 1165 1495 140 Stool 850 Other: Voiding Method Indwelling Catheter Indwelling Catheter ABP, PAP, CO, CI - Last Documented Arterial Blood Pressure 112/52 - Exam GENERAL EXAM: Awake, alert, morbidly obese, extremely weak, 71-year-old female, on 2 L nasal cannula, fairly comfortable in no apparent distress. HEAD: Normocephalic. EYES: Normal reaction of pupils, equal size. NOSE: Naso gastric tube in place. Clear with pink turbinates. THROAT: No erythema or exudates. NECK: No masses, no JVD. CHEST: Healing large hematoma and edema of the right breast LUNGS: Equal air entry with crackles in the posterior bases. Diminished right base. CVS: S1 and S2 normal with no audible murmur, irregular rhythm. ABDOMEN: Obese, unable to appreciate organomegaly, normal bowel sounds, no guarding or rigidity. SPINE: Surgical dressing dry and intact. SKIN: Ols ecchymosis noted over the right breast and chest area. CENTRAL NERVOUS SYSTEM: No focal deficits, tone is normal in all 4 extremities. EXTREMITIES: There is 1-2+ peripheral edema. No clubbing, no cyanosis. P eripheral pulses are intact. - Labs CBC & Chem 7: 04/17/22 05:10 04/17/22 05:10 Labs: Abnormal Lab Results - Last 24 Hours (Table) 04/16/22 04/16/22 04/16/22 Range/Units 11:17 11:29 17:49 WBC (3.8-10.6) k/uL RBC (3.80-5.40) m/uL Hgb (11.4-16.0) gm/dL Hct (34.0-46.0) % RDW (11.5-15.5) % Plt Count (150-450) k/uL Neutrophils # (Manual) (1.3-7.7) k/uL Metamyelocytes # (Man) (0) k/uL Nucleated RBCs (0-0) /100 WBC ABG pO2 337 H (83-108) mmHg ABG O2 Saturation 100.0 H (94-97) % Potassium (3.5-5.1) mmol/L Chloride (98-107) mmol/L BUN (7-17) mg/dL Glucose (74-99) mg/dL POC Glucose (mg/dL) 144 H 162 H (70-110) mg/dL Calcium (8.4-10.2) mg/dL 04/16/22 04/17/22 04/17/22 Range/Units 23:46 05:10 05:10 WBC 13.5 H (3.8-10.6) k/uL RBC 2.77 L (3.80-5.40) m/uL Hgb 8.3 L (11.4-16.0) gm/dL Hct 25.5 L (34.0-46.0) % RDW 24.6 H (11.5-15.5) % Plt Count 113 L (150-450) k/uL Neutrophils # (Manual) 11.30 H (1.3-7.7) k/uL Metamyelocytes # (Man) 0.27 H (0) k/uL Nucleated RBCs 7 H (0-0) /100 WBC ABG pO2 (83-108) mmHg ABG O2 Saturation (94-97) % Potassium 2.7 L* (3.5-5.1) mmol/L Chloride 117 H (98-107) mmol/L BUN 25 H (7-17) mg/dL Glucose 141 H (74-99) mg/dL POC Glucose (mg/dL) 169 H (70-110) mg/dL Calcium 7.5 L (8.4-10.2) mg/dL 04/17/22 Range/Units 05:10 WBC (3.8-10.6) k/uL RBC (3.80-5.40) m/uL Hgb (11.4-16.0) gm/dL Hct (34.0-46.0) % RDW (11.5-15.5) % Plt Count (150-450) k/uL Neutrophils # (Manual) (1.3-7.7) k/uL Metamyelocytes # (Man) (0) k/uL Nucleated RBCs (0-0) /100 WBC ABG pO2 (83-108) mmHg ABG O2 Saturation (94-97) % Potassium (3.5-5.1) mmol/L Chloride (98-107) mmol/L BUN (7-17) mg/dL Glucose (74-99) mg/dL POC Glucose (mg/dL) 155 H (70-110) mg/dL Calcium (8.4-10.2) mg/dL Microbiology - Last 24 Hours (Table) 04/14/22 08:45 Blood Culture - Preliminary Blood No Growth after 48 hours 04/15/22 04:00 Gram Stain - Preliminary Sputum Sputum Culture - Preliminary 04/14/22 12:00 Gram Stain - Preliminary Back Wound Culture - Preliminary 04/14/22 16:17 Gram Stain - Preliminary Back Wound Culture - Preliminary Assessment and Plan Assessment: Acute lumbar wound dehiscence, status post irrigation and excisional debridement of the lumbar spine 30 x 20 x 15 cm with complex wound closure for layered fashion on 04/14/2022, initially on the mechanical ventilator, extubated 04/16/2022 Lumbar decompression/fusion 02/24/2022, developed some foul-smelling serous sanguinous drainage. On 03/09/2022 she did require exploration and washout with dural repairs due to falls. Acute sepsis with hypotension secondary to urinary tract infection with Enterobacter, currently on Eraxis, vancomycin cefepime, improved and off norepinephrine. Bacteremia secondary to wound infection positive for pseudomonas aeruginosa, Enterococcus faecalis, Patsy albicans from 03/26/2022. Follow-up cultures pending. Atrial flutter fibrillation/flutter with a rapid ventricular currently in sinus rhythm Lactic acidosis secondary to above, recovered Acute renal failure, recovered, current creatinine 0. Then 0 Hypokalemia, current potassium 2.7 Hyponatremia, recovered current sodium 145 Leukocytosis, improved, current white count 13 point Acute anemia with a hemoglobin dropped to 5.4. The patient had developed a large right sided chest wall/breast hematoma suspect secondary to fall on 03/06/2022. The patient has now received 13 units of packed red blood cells and her hemoglobin this morning was 8.3. Cardiac arrest, brief pulseless electrical activity encountered in the operating room 02/24/2022 exact etiology is not clear. Acute hypoxic/hypercapnic respiratory failure secondary to cardiac arrest/pulseless electrical activity, patient was extubated Morbid obesity. BMI of 46.1 History of right hemidiaphragm paralysis History of right-sided breast cancer, previous lumpectomy Chronic atrial fibrillation/flutter, anticoagulated with Xarelto currently on hold due to GI bleed and recurrent surgery Dyslipidemia Benign essential hypertension Poor overall functional performance based on the above-mentioned multiple comorbidities Plan: The patient was seen and evaluated Chest x-ray, medications and labs reviewed Currently stable on 2 L nasal cannula and off pressors Continued on Eraxis, cefepime, vancomycin Replace electrolytes Being nourished with vital AF via nasogastric tube Follow-up cultures are pending Initiate Lovenox for DVT prophylaxis Xarelto remains on hold We'll discontinue her arterial line Discontinue the BiPAP DO NOT RESUSCITATE/DO NOT INTUBATE CODE STATUS Prognosis remains quite guarded We will continue to follow I have personally seen and examined the patient, performed the documentation and the assessment and plan as written. Number of minutes spent on the visit: 10.
[2022-04-17] MEDS: AMIODARONE 200 MG TAB PO SCH (10:18)
[2022-04-17] MEDS: ATORVASTATIN 20 MG TAB PO SCH (10:18)
[2022-04-17] MEDS: METOPROLOL TARTRATE 50 MG TAB PO SCH ×2 (10:18→21:12)
[2022-04-17] MEDS: MAGNESIUM OXIDE 400 MG TAB PO SCH (10:18)
[2022-04-17] MEDS: SODIUM BICARBONATE TAB 650 MG TAB PO SCH ×2 (10:18→21:12)
[2022-04-17] MEDS: ANIDULAFUNGIN 100 MG in SODIUM CHLORIDE 0.9% 100 ML IVPB SCH (10:19)
[2022-04-17] MEDS: PANTOPRAZOLE 40 MG/10 ML VIAL IVP SCH ×2 (10:19→21:12)
[2022-04-17] MEDS: GABAPENTIN 400 MG CAP PO SCH ×3 (10:30→21:12)
[2022-04-17] MEDS: DULoxetine HCL 60 MG CAPSULE.DR PO SCH (10:34)
[2022-04-17] MEDS: FUROSEMIDE 10 MG/ML 4 ML VIAL IV SCH ×2 (10:39→17:29)
[2022-04-17] MEDS: LACTULOSE 20 GM/30 ML CUP PO SCH ×2 (10:41→21:12)
[2022-04-17] MEDS: SIMETHICONE 40 MG/0.6 ML DROPS 2,000 MG/30 ML BOTTLE PO SCH ×4 (11:00→21:13)
[2022-04-17] MEDS: MAG HYDROX/AL HYDROX/SIMETH 30 ML, diphenhydrAMINE ELIXIR 75 MG, LIDOCAINE VISCOUS 2% 3... PO SCH ×9 (11:04→21:24)
[2022-04-17 12:02] LABS: Glucose,Whole Blood 181 mg/dL (70-110)
[2022-04-17 13:08] LABS: African American GFR (CKD) >90 (>60 ml/min/1.73 sqM); Anion Gap 6 mmol/L; Blood Urea Nitrogen 25 mg/dL (7-17); Calcium 7.5 mg/dL (8.4-10.2); Carbon Dioxide 25 mmol/L (22-30); Chloride 116 mmol/L (98-107); Glucose 155 mg/dL (74-99); Non-African American GFR(CKD) 81 (>60 ml/min/1.73 sqM); Potassium 3.3 mmol/L (3.5-5.1); Sodium 147 mmol/L (137-145)
--- NOTE | 2022-04-17 13:23 | P.PN ---
Subjective Progress Note Date: 04/17/22 Patient is a 71 yo CF with a hx of A fib s/p ablation, GERD, hypertension, dyslipidemia, and right diaphragmatic paralysis who presented for T10 to Pelvis decompression and fusion with revision. Course complicated by significant blood loss. Patient was on vasopressors, also received TXA gtt. She received 7 L of lactated Ringer's. She received 1 amp of sodium bicarb intaop. She also received albumin. Patient then had a cardiac arrest. During the case she developed A. fib with RVR and then quickly transitioned into bradycardia with a low end-tidal CO2. She received 0.4 of atropine and CPR was started. She received epinephrine 0.5. She achieved ROSC. Total down time was less than 5 minutes. She was extubated on 02/25. She continued to do well but struggled with pain. She was downgraded from ICU on 03/03. On 03/06/22 patient was noted to have a significant drop in hemoglobin from 10.0 down to 7.5 and upon reevaluation on 03/07 was found to have hemoglobin of 5.4, patient required multiple transfusions. She has received a total of 7 units PRBCs and 1 unit of platelets. She underwent a CT abdomen and pelvis and was found to have a large right chest hematoma dilated small bowel concerning for ileus. Patient was evaluated by cardiothoracic surgery and they recommended conservative management. On 03/07, patient was noted to be hypotensive with elevated WBC count of 42.3, with worsening renal function and hyperkalamia. Patient was treated with NS bolus, IV insulin/D50, Albuterol and sodium bicarbonate. She was transferred back to the ICU for septic shock requiring Levophed. Patient was started on Vancomycin and Cefepime. Blood and urine cultures were obtained and positive for Enterobacter. Infectious disease was consulted and patient was continued on Cefepime for treatment of Enterobacter UTI with secondary bacteremia and Vancomycin was discontinued. Patient was later weaned off of vasopressors and again transferred out of the ICU. Patient was started on Lasix for treatment of acute on chronic systolic heart failure with EF of 35-40%. Patient continued on Protonix for GI prophylaxis, amiodarone and metoprolol for atrial fibrillation with RVR sodium bicarb for treatment of metabolic acidosis. Pt's Xarelto remains hold at this time. Patient was evaluated by PMR and is currently not a candidate for inpatient rehab. She has been cleared by orthopedic surgery to start working with physical therapy. On 03/26/22 patient was again found to have elevating leukocytosis and repeat Wound cultures were obtained. Wound cultures were positive for pseudomonas aeruginosa, enterococcus fasciculus, and Patsy albicans. Patient to continue with Zosyn per culture and sensitivity report and as recommended by infectious disease as this may be contamination/colonization however patient is a high risk of infection so we will continue with empiric antibiotic therapy. Overnight on 03/28/22 patient again developed episodes of melena and at that time Dr. Arce, general surgeon was re-consulted. CT abdomen and pelvis revealing bilateral hydronephrosis unable to rule out obstructive etiology, concerns for fecal impaction, and persistent previously known right anterior chest wall hematoma. General surgery following and reevaluated patient secondary to concerns of fecal impaction and started patient on lactulose. Wiley catheter was inserted secondary to bi lateral hydronephrosis and patient was evaluated by urologist recommending continuation of Wiley catheter as bilateral hydronephrosis is believed to be resulting secondary to urinary retention. On the evening of 04/03/21 patient with continued atrial tachycardia and hypotension and unable to take metoprolol secondary to low blood pressures. Patient had episode of hematochezia along with large blood clot and was transferred back to the ICU. Had bedside manual disimpaction with general surgery. Also has a posterior anal fissure could likely because of current bleeding. On a bowel regimen. Hemoglobin continues to down trend. Requiring further blood transfusions. Hemoglobin currently stable. Hemodynamically stable. Patient pending transfer for GI at [facility]. Subjective: Pt now on nasal cannula, has hoarse voice, but is able to communicate well. Sitting upright in bed. Working on appetite. Added dronabinol yesterday. ST evaluation. Ongoing enteral feeding. Vitals Signs Reviewed. Gen: awake, alert HEENT: normocephalic, atraumatic, good hearing acuity, moist mucous membranes Resp: good air exchange, breathing comfortably with no accessory muscle use CVS: good distal perfusion x 4, tachycardic GI: soft, NTTP, distended, +FMS : no SPT, no CVAT, wiley catheter is present MSK: no pitting edema, no clubbing, wound is dehisced down to spine, does not appear to be foul smelling or have pustular discharge, Neuro: non-focal, moving all extremities Psych: cooperative, euthymic mood Assessment and Plan: GI bleeding, likely lower Acute abdominal pain - resolved Fecal impaction, status post manual disimpaction Posterior Anal fissure -Gen surgery following and managing FMS and laxatives -Continue with Protonix 40 mg IVP twice daily -Hemoglobint stable -Total transfusions are 13U PRBC, 2U FFP -On bowel regimen -Discussed with family on 04/14, transfer to [place] deferred unless HDS from GI Bleeding, currently stable Atrial flutter/fibrillation with RVR Status post Cardiac arrest with ROSC Acute on chronic systolic heart failure -Cardiology following, discussed case on 04/15, metoprolol to 50mg BID,digoxin stopped, verapamil 40mg BID, amiodarone -Continuous telemetry monitoring. -I ordered albumin 25gm on 04/14 PM and patient rec'd lasix 40mg IV once 04/15 for volume overload and intravascular volume depletion -also on Midodrine 10mg AC-TID -Holding anticoagulation due to ongoing GI bleed Poor nutritional intake Severe protein calorie malnutrition Anasarca -Reducing mirtazipine to 7.5mg qHS to reduce somnolence effects while continuing effects on appetite stimulation -Patient getting tube feeds Hypokalemia- resolved Septic shock - resolved Enterobacter cloacae UTI with secondary bacteremia - resolved Lactic acidosis Leukocytosis -resolved Patsy UTI Possible, but not definitive surgical site infection due to poor wound healing - OR cultures pending -Infectious disease following and managing antibiotic course at this time. -ID has patient on Eraxis, vancomycin, cefepime -Discussed with ID that zosyn will be exchanged with cefepime due to thrombocytopenia -thrombocytopenia is improving since discontinuing zosyn. Bilateral hydronephrosis, likely secondary to urinary retention -CT abdomen and pelvis revealing bilateral hydronephrosis unable to rule out obstructive etiology. -Renal function stable -Urology following, recommending continuation of Wiley catheter Prerenal azotemia, improving Hyponatremiaresolving Hyperkalemiaresolved Hypokalemiaresolved Metabolic acidosis, resolved -Continue sodium bicarb 650 mg twice a day -Nephrology following. Prediabetes with hyperglycemia, now hypoglycemia -Likely steroid induced -A1c is 6 -Continue with sliding scale Right breast hematoma - stable T10 to pelvis decompression with fusion Post-op pain -Management per primary admitting Orthopedic surgery team including DVT prophylaxis, pain management, wound/dressing care, weightbearing, and PT/OT . -PT/OT following. -return to OR on 04/14 for revision and washout, site is dehisced but does not appear to be infected since no foul smell or pustular discharge. OR cultures pending, gram stain reviewed 04/16, no organisms seen. Right diaphragmatic paralysis -No interventions for her pulmonology Hyperlipidemia -atorvastatin. History of hypertension -Currently On Midodrine for episodes of hypotension Transaminitis -Likely ischemic hepatitis. -Resolved Thank you for allowing us to participate in the care of this pleasant patient. Do not hesitate to contact us with questions. Someone can be reached from the [facility] hospitalist group all hours of the day at [phone] or via [email or web address]. Objective - Vital Signs Vital signs: Vital Signs Temp 98.4 F 04/17/22 12:00 Pulse 87 04/17/22 13:00 Resp 14 04/17/22 13:00 BP 125/68 04/17/22 13:00 Pulse Ox 96 04/17/22 13:00 FiO2 40 04/16/22 14:00 Intake & Output 04/16/22 04/17/22 04/17/22 18:59 06:59 18:59 Intake Total 1252.806 860.0 890 Output Total 2014 1495 570 Balance -762.194 -635.0 320 Weight 133.5 kg 133.5 kg Intake: IV 880 270.0 290 Anidulafungin 100 mg In 100 100 Sodium Chloride 0.9% 100 ml @ 84 mls/hr IVPB DAILY [facility] Rx#:[id number] Cefepime 1 gm In Sodium 100 50.0 50 Chloride 0.9% 50 ml @ 12. 5 mls/hr IVPB Q8HR [facility] Rx #:[id number] Sodium Chloride 0.9% 1, 180 220 140 000 ml @ 20 mls/hr IV . Q24H [facility] Rx#:[id number] Vancomycin 2,000 mg In 500 Sodium Chloride 0.9% 500 ml 500 ml @ 167 mls/hr IVPB Q12HR [facility] Rx#: [id number] Intake, IV Titration 42.806 Amount propofoL 1,000 mg In 42.806 Empty Bag 1 bag @ 15 MCG/ KG/MIN 11.5 mls/hr IV . Q8H42M [facility] Rx#:[id number] Tube Feeding 240 360 240 Other 90 230 360 Output: Urine 1165 1495 570 Stool 850 Other: Voiding Method Indwelling Catheter Indwelling Catheter Indwelling Catheter ABP, PAP, CO, CI - Last Documented Arterial Blood Pressure 109/51 - Labs CBC & Chem 7: 04/17/22 05:10 04/17/22 12:32 Labs: Abnormal Lab Results - Last 24 Hours (Table) 04/16/22 04/16/22 04/17/22 Range/Units 17:49 23:46 05:10 WBC (3.8-10.6) k/uL RBC (3.80-5.40) m/uL Hgb (11.4-16.0) gm/dL Hct (34.0-46.0) % RDW (11.5-15.5) % Plt Count (150-450) k/uL Neutrophils # (Manual) (1.3-7.7) k/uL Metamyelocytes # (Man) (0) k/uL Nucleated RBCs (0-0) /100 WBC Sodium (137-145) mmol/L Potassium 2.7 L* (3.5-5.1) mmol/L Chloride 117 H (98-107) mmol/L BUN 25 H (7-17) mg/dL Glucose 141 H (74-99) mg/dL POC Glucose (mg/dL) 162 H 169 H (70-110) mg/dL Calcium 7.5 L (8.4-10.2) mg/dL 04/17/22 04/17/22 04/17/22 Range/Units 05:10 05:10 11:59 WBC 13.5 H (3.8-10.6) k/uL RBC 2.77 L (3.80-5.40) m/uL Hgb 8.3 L (11.4-16.0) gm/dL Hct 25.5 L (34.0-46.0) % RDW 24.6 H (11.5-15.5) % Plt Count 113 L (150-450) k/uL Neutrophils # (Manual) 11.30 H (1.3-7.7) k/uL Metamyelocytes # (Man) 0.27 H (0) k/uL Nucleated RBCs 7 H (0-0) /100 WBC Sodium (137-145) mmol/L Potassium (3.5-5.1) mmol/L Chloride (98-107) mmol/L BUN (7-17) mg/dL Glucose (74-99) mg/dL POC Glucose (mg/dL) 155 H 181 H (70-110) mg/dL Calcium (8.4-10.2) mg/dL 04/17/22 Range/Units 12:32 WBC (3.8-10.6) k/uL RBC (3.80-5.40) m/uL Hgb (11.4-16.0) gm/dL Hct (34.0-46.0) % RDW (11.5-15.5) % Plt Count (150-450) k/uL Neutrophils # (Manual) (1.3-7.7) k/uL Metamyelocytes # (Man) (0) k/uL Nucleated RBCs (0-0) /100 WBC Sodium 147 H (137-145) mmol/L Potassium 3.3 L (3.5-5.1) mmol/L Chloride 116 H (98-107) mmol/L BUN 25 H (7-17) mg/dL Glucose 155 H (74-99) mg/dL POC Glucose (mg/dL) (70-110) mg/dL Calcium 7.5 L (8.4-10.2) mg/dL Microbiology - Last 24 Hours (Table) 04/15/22 04:00 Gram Stain - Final Sputum Sputum Culture - Final 04/14/22 08:45 Blood Culture - Preliminary Blood No Growth after 72 hours 04/14/22 12:00 Gram Stain - Preliminary Back Wound Culture - Preliminary 04/14/22 16:17 Gram Stain - Preliminary Back Wound Culture - Preliminary
[2022-04-17] MEDS ORDERED: Potassium Replacement Protocol 1 EACH MISC MISCELLANE PRN (16:03)
[2022-04-17] MEDS: ENOXAPARIN 40 MG/0.4 ML SYRINGE SQ SCH (16:06)
--- NOTE | 2022-04-17 16:54 | P.PN ---
Subjective Progress Note Date: 04/17/22 Principal diagnosis: GI bleeding Patient remains in the ICU after her debridement and closure was performed on Sunday. She apparently was extubated yesterday. Apparently yesterday the family had a long meeting with the hospitalist group regarding CODE STATUS issues. Apparently today there was some question whether the patient wanted to withdraw care at this time. Family has since arrived at the hospital and met with the patient. She is currently tolerating her tube feeds at 40 mL per hour through the nasogastric tube. Vital signs and labs fairly stable. No active bl eeding. Fecal management system remains in place. Objective - Vital Signs Vital signs: Vital Signs Temp 98.4 F 04/17/22 12:00 Pulse 88 04/17/22 16:00 Resp 10 L 04/17/22 16:00 BP 120/85 04/17/22 16:00 Pulse Ox 96 04/17/22 16:00 FiO2 40 04/16/22 14:00 Intake & Output 04/16/22 04/17/22 04/17/22 18:59 06:59 18:59 Intake Total 1252.806 860.0 1060 Output Total 2015 1495 920 Balance -762.194 -635.0 140 Weight 133.5 kg 133.5 kg Intake: IV 880 270.0 350 Anidulafungin 100 mg In 100 100 Sodium Chloride 0.9% 100 ml @ 84 mls/hr IVPB DAILY [facility] Rx#:[id number] Cefepime 1 gm In Sodium 100 50.0 50 Chloride 0.9% 50 ml @ 12. 5 mls/hr IVPB Q8HR [facility] Rx #:[id number] Sodium Chloride 0.9% 1, 180 220 200 000 ml @ 20 mls/hr IV . Q24H [facility] Rx#:[id number] Vancomycin 2,000 mg In 500 Sodium Chloride 0.9% 500 ml 500 ml @ 167 mls/hr IVPB Q12HR [facility] Rx#: [id number] Intake, IV Titration 42.806 Amount propofoL 1,000 mg In 42.806 Empty Bag 1 bag @ 15 MCG/ KG/MIN 11.5 mls/hr IV . Q8H42M [facility] Rx#:[id number] Tube Feeding 240 360 320 Other 90 230 390 Output: Urine 1165 1495 920 Stool 850 Other: Voiding Method Indwelling Catheter Indwelling Catheter Indwelling Catheter ABP, PAP, CO, CI - Last Documented Arterial Blood Pressure 109/51 - Exam Abdomen: Soft, nondistended, mild right lower quadrant tenderness, no rebound or guarding - Labs CBC & Chem 7: 04/17/22 05:10 04/17/22 12:32 Labs: Abnormal Lab Results - Last 24 Hours (Table) 04/16/22 04/16/22 04/17/22 Range/Units 17:49 23:46 05:10 WBC (3.8-10.6) k/uL RBC (3.80-5.40) m/uL Hgb (11.4-16.0) gm/dL Hct (34.0-46.0) % RDW (11.5-15.5) % Plt Count (150-450) k/uL Neutrophils # (Manual) (1.3-7.7) k/uL Metamyelocytes # (Man) (0) k/uL Nucleated RBCs (0-0) /100 WBC Sodium (137-145) mmol/L Potassium 2.7 L* (3.5-5.1) mmol/L Chloride 117 H (98-107) mmol/L BUN 25 H (7-17) mg/dL Glucose 141 H (74-99) mg/dL POC Glucose (mg/dL) 162 H 169 H (70-110) mg/dL Calcium 7.5 L (8.4-10.2) mg/dL 04/17/22 04/17/22 04/17/22 Range/Units 05:10 05:10 11:59 WBC 13.5 H (3.8-10.6) k/uL RBC 2.77 L (3.80-5.40) m/uL Hgb 8.3 L (11.4-16.0) gm/dL Hct 25.5 L (34.0-46.0) % RDW 24.6 H (11.5-15.5) % Plt Count 113 L (150-450) k/uL Neutrophils # (Manual) 11.30 H (1.3-7.7) k/uL Metamyelocytes # (Man) 0.27 H (0) k/uL Nucleated RBCs 7 H (0-0) /100 WBC Sodium (137-145) mmol/L Potassium (3.5-5.1) mmol/L Chloride (98-107) mmol/L BUN (7-17) mg/dL Glucose (74-99) mg/dL POC Glucose (mg/dL) 155 H 181 H (70-110) mg/dL Calcium (8.4-10.2) mg/dL 04/17/22 Range/Units 12:32 WBC (3.8-10.6) k/uL RBC (3.80-5.40) m/uL Hgb (11.4-16.0) gm/dL Hct (34.0-46.0) % RDW (11.5-15.5) % Plt Count (150-450) k/uL Neutrophils # (Manual) (1.3-7.7) k/uL Metamyelocytes # (Man) (0) k/uL Nucleated RBCs (0-0) /100 WBC Sodium 147 H (137-145) mmol/L Potassium 3.3 L (3.5-5.1) mmol/L Chloride 116 H (98-107) mmol/L BUN 25 H (7-17) mg/dL Glucose 155 H (74-99) mg/dL POC Glucose (mg/dL) (70-110) mg/dL Calcium 7.5 L (8.4-10.2) mg/dL Microbiology - Last 24 Hours (Table) 04/14/22 12:00 Anaerobic Culture - Preliminary Back 04/14/22 16:17 Anaerobic Culture - Preliminary Back 04/14/22 12:00 Gram Stain - Preliminary Back Wound Culture - Preliminary 04/14/22 16:17 Gram Stain - Preliminary Back Wound Culture - Preliminary 04/15/22 04:00 Gram Stain - Final Sputum Sputum Culture - Final 04/14/22 08:45 Blood Culture - Preliminary Blood No Growth after 72 hours Assessment and Plan (1) GI bleed Narrative/Plan: Overall patient seems to be slightly improved from where she was last Sunday. She is now extubated and tolerating tube feeds at close to goal rate. Keep increasing tube feeds until goal was reached. Activity level per orthopedics. Continue antibiotics per infectious disease. Will follow. Current Visit: Yes Status: Acute Priority: High Code(s): K92.2 - GASTROINT ESTINAL HEMORRHAGE, UNSPECIFIED SNOMED Code(s): 54598252
[2022-04-17 18:31] LABS: Glucose,Whole Blood 165 mg/dL (70-110)
--- NOTE | 2022-04-17 18:32 | P.PN ---
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 Patient is currently resting semirecumbent in bed. Patient is currently on 2L O2 via NC. Nasogastric tube placed for nutritional intake, patient is currently at 40 mL/hr; goal is 60 mL/hr. Patient is tolerating well. Patient is awake, but is lethargic. She is able to answer my questions and follow commands during exam. Patient is able to raise bilateral upper extremities. She is able to wiggle her toes. Patient is unable to lift legs at this time, 4+ pitting edema to bilateral lower extremities. Patient is currently on Lasix. Warren catheter is patent. Fecal management system is present. Encouraged patient to continue to work with physical therapy with bed exercises. Patient does need to be moved to another room with a zulema lift. Patient has been afebrile, denies nausea/vomiting, or chest pain. Objective - Vital Signs Vital signs: Vital Signs Temp 98.4 F 04/17/22 12:00 Pulse 88 04/17/22 16:00 Resp 10 L 04/17/22 16:00 BP 120/85 04/17/22 16:00 Pulse Ox 96 04/17/22 16:00 FiO2 40 04/16/22 14:00 Intake & Output 04/16/22 04/17/22 04/17/22 18:59 06:59 18:59 Intake Total 1252.806 860.0 1060 Output Total 2014 1495 920 Balance -762.194 -635.0 140 Weight 133.5 kg 133.5 kg Intake: IV 880 270.0 350 Anidulafungin 100 mg In 100 100 Sodium Chloride 0.9% 100 ml @ 84 mls/hr IVPB DAILY [facility] Rx#:[id number] Cefepime 1 gm In Sodium 100 50.0 50 Chloride 0.9% 50 ml @ 12. 5 mls/hr IVPB Q8HR [facility] Rx #:[id number] Sodium Chloride 0.9% 1, 180 220 200 000 ml @ 20 mls/hr IV . Q24H [facility] Rx#:[id number] Vancomycin 2,000 mg In 500 Sodium Chloride 0.9% 500 ml 500 ml @ 167 mls/hr IVPB Q12HR [facility] Rx#: [id number] Intake, IV Titration 42.806 Amount propofoL 1,000 mg In 42.806 Empty Bag 1 bag @ 15 MCG/ KG/MIN 11.5 mls/hr IV . Q8H42M [facility] Rx#:[id number] Tube Feeding 240 360 320 Other 90 230 390 Output: Urine 1165 1495 920 Stool 850 Other: Voiding Method Indwelling Catheter Indwelling Catheter Indwelling Catheter ABP, PAP, CO, CI - Last Documented Arterial Blood Pressure 109/51 - Exam Physical Examination General: The patient is awake and alert, in no acute distress Skin: Skin is warm and dry with no obvious rashes or lesions. Hairy patches absent, no dorsal skin dimples, no cafe au lait spots. Surgical Incision to lumbar region. Eye: Pupils are equal, round and reactive to light, extra-ocular movements are intact; there is normal conjunctiva bilaterally. Neck: The neck is supple, there is no tenderness and ROM intact. Cardiovascular: A-fib, Patient presents with 4+ pitting edema to BLE, 3+ pitting edema to BUE Respiratory: Diminished bilateral lung bases to auscultation, respirations are non-labored, breath sounds are equal, 2LNC Gastrointestinal: Soft, non-distended, non-tender abdomen, FMS patent, NG tube placed for nutrition, Patient currently at 40ml/hr; Goal is 60ml/hr. Back: There is no tenderness to palpation in the midline, paralumbar, parathoracic or buttocks region. There is no obvious deformity . Musculoskeletal: ROM limited secondary to pain and stiffness from surgical procedure. Muscle strength in all major muscle groups of bilateral upper extremities 4-/5, bilateral lower extremities 3/5. Neurological: CN 2-12 intact. There are no obvious motor or sensory deficits. Movement and coordination equal and intact. Sensory exam to light touch intact C5-T1 and intact from L2-S1. Reflexes 2/4 in bilateral upper and lower extremities. Negative Hoffmans, babinski, and clonus signs. Psychiatric: Cooperative, appropriate mood & affect, normal judgment. - Labs CBC & Chem 7: 04/17/22 05:10 04/17/22 12:32 Labs: Abnormal Lab Results - Last 24 Hours (Table) 04/16/22 04/16/22 04/17/22 Range/Units 17:49 23:46 05:10 WBC (3.8-10.6) k/uL RBC (3.80-5.40) m/uL Hgb (11.4-16.0) gm/dL Hct (34.0-46.0) % RDW (11.5-15.5) % Plt Count (150-450) k/uL Neutrophils # (Manual) (1.3-7.7) k/uL Metamyelocytes # (Man) (0) k/uL Nucleated RBCs (0-0) /100 WBC Sodium (137-145) mmol/L Potassium 2.7 L* (3.5-5.1) mmol/L Chloride 117 H (98-107) mmol/L BUN 25 H (7-17) mg/dL Glucose 141 H (74-99) mg/dL POC Glucose (mg/dL) 162 H 169 H (70-110) mg/dL Calcium 7.5 L (8.4-10.2) mg/dL 04/17/22 04/17/22 04/17/22 Range/Units 05:10 05:10 11:59 WBC 13.5 H (3.8-10.6) k/uL RBC 2.77 L (3.80-5.40) m/uL Hgb 8.3 L (11.4-16.0) gm/dL Hct 25.5 L (34.0-46.0) % RDW 24.6 H (11.5-15.5) % Plt Count 113 L (150-450) k/uL Neutrophils # (Manual) 11.30 H (1.3-7.7) k/uL Metamyelocytes # (Man) 0.27 H (0) k/uL Nucleated RBCs 7 H (0-0) /100 WBC Sodium (137-145) mmol/L Potassium (3.5-5.1) mmol/L Chloride (98-107) mmol/L BUN (7-17) mg/dL Glucose (74-99) mg/dL POC Glucose (mg/dL) 155 H 181 H (70-110) mg/dL Calcium (8.4-10.2) mg/dL 04/17/22 Range/Units 12:32 WBC (3.8-10.6) k/uL RBC (3.80-5.40) m/uL Hgb (11.4-16.0) gm/dL Hct (34.0-46.0) % RDW (11.5-15.5) % Plt Count (150-450) k/uL Neutrophils # (Manual) (1.3-7.7) k/uL Metamyelocytes # (Man) (0) k/uL Nucleated RBCs (0-0) /100 WBC Sodium 147 H (137-145) mmol/L Potassium 3.3 L (3.5-5.1) mmol/L Chloride 116 H (98-107) mmol/L BUN 25 H (7-17) mg/dL Glucose 155 H (74-99) mg/dL POC Glucose (mg/dL) (70-110) mg/dL Calcium 7.5 L (8.4-10.2) mg/dL Microbiology - Last 24 Hours (Table) 04/14/22 12:00 Anaerobic Culture - Preliminary Back 04/14/22 16:17 Anaerobic Culture - Preliminary Back 04/14/22 12:00 Gram Stain - Preliminary Back Wound Culture - Preliminary 04/14/22 16:17 Gram Stain - Preliminary Back Wound Culture - Preliminary 04/15/22 04:00 Gram Stain - Final Sputum Sputum Culture - Final 04/14/22 08:45 Blood Culture - Preliminary Blood No Growth after 72 hours Assessment and Plan Assessment: Lumbar wound dehiscence s/p [id number] decompression and fusion with complex perioperative and post operative course - Postoperative day #3 status post Irrigation and excisional debridement of lumbar spine [id number] cm wound, complex closure. Plan: -Appreciate [employer] operations consultant and team management PCC and medicine -Appreciate cardiothoracic, Gen. surgery, nephrology, ID evaluations -Continue Activity: as medically tolerated, patient needs to be transferred to a room with a zulema lift. -PT / OT DAILY work on increased strength in LE quads, hammys, etc for standing -Cont Abx for duration of stay -Pain control: Adequate today. Watch pressures and VS. -Meplex pads on sacral region with barrier cream. Cont turn. Sit at different angles. -Meds: reviewed -Trend labs, trend SED and CRP for markers -GI ppx: senna, Miralax, -Continue with FMS per GI. -Continue Warren changed per protocol -Cont with FBS -DVT PPX: Mechanical only -Hygiene: Maintain dressing clean and dry. Meticulous cleaning after BMs away from incision site patient has had several instances on the floor where she was covered and bowel movement as well as urine up to her shoulders on her back. The wound needs to be kept meticulously clean. -Encourage IS 10x/hr *I reviewed and discussed this case with my attending Dr. Alexander, whom has reviewed this chart and films and is in agreement with assessment and plan of care as outlined above.I have personally seen and examined the patient, performed the documentation and the assessment and plan as written. Number of minutes spent on the visit: [20m ].
[2022-04-17] MEDS: NOREPINEPHRINE 8 MG in SODIUM CHLORIDE 0.9% 250 ML IV SCH (18:34)
--- NOTE | 2022-04-17 20:10 | P.PN ---
Subjective Progress Note Date: 04/17/22 Principal diagnosis: UTI and bacteremia Patient is a 71-year-old female with a past medical history difficult for atrial fibrillation flutter hypertension hyperlipidemia hypothyroidism right breast cancer electively admitted to the hospital on 02/24/2022 for T10 to lumb ar spine revision decompression and posterior lateral interbody fusion, patient did have a episode of hypotension and elevated white count requiring admission to the ICU patient did have Enterobacter urinary tract infection and bacteremia and patient did have exploration of the thoracolumbar incision completed on 03/09/2022 with apparently no evidence of any abscess, patient subsequently did have dehiscence of the lower lumbar incision and a low-grade fever on 04/14/2022 for the patient was taken back to the OR on 04/14/2022 status post washout and closure of the wound. On today's evaluation that is 04/17/2022 the patient remains to be afebrile, patient is slightly lethargic unable to provide any history patient is hemodynamically stable and is currently breathing comfortably on 2 L nasal cannula, no vomiting or any other changes reported by the nursing staff patient did have a fecal management system with loose stool Objective - Vital Signs Vital signs: Vital Signs Temp 98.2 F 04/17/22 08:00 Pulse 112 H 04/17/22 09:00 Resp 15 04/17/22 09:00 BP 135/67 04/17/22 09:00 Pulse Ox 93 L 04/17/22 07:00 FiO2 40 04/16/22 14:00 Intake & Output 04/16/22 04/17/22 04/17/22 18:59 06:59 18:59 Intake Total 1252.806 860.0 240 Output Total 2014 1495 140 Balance -762.194 -635.0 100 Weight 133.5 kg Intake: IV 880 270.0 110 Anidulafungin 100 mg In 100 Sodium Chloride 0.9% 100 ml @ 84 mls/hr IVPB DAILY [facility] Rx#:[id number] Cefepime 1 gm In Sodium 100 50.0 50 Chloride 0.9% 50 ml @ 12. 5 mls/hr IVPB Q8HR [facility] Rx #:[id number] Sodium Chloride 0.9% 1, 180 220 60 000 ml @ 20 mls/hr IV . Q24H [facility] Rx#:[id number] Vancomycin 2,000 mg In 500 Sodium Chloride 0.9% 500 ml 500 ml @ 167 mls/hr IVPB Q12HR [facility] Rx#: [id number] Intake, IV Titration 42.806 Amount propofoL 1,000 mg In 42.806 Empty Bag 1 bag @ 15 MCG/ KG/MIN 11.5 mls/hr IV . Q8H42M [facility] Rx#:[id number] Tube Feeding 240 360 30 Other 90 230 100 Output: Urine 1165 1495 140 Stool 850 Other: Voiding Method Indwelling Catheter Indwelling Catheter ABP, PAP, CO, CI - Last Documented Arterial Blood Pressure 112/52 - Exam GENERAL DESCRIPTION: An elderly female lying in Bed in no distress RESPIRATORY SYSTEM: Unlabored breathing , decreased breath sounds at bases HEART: S1 S2 regular rate and rhythm , ABDOMEN: Soft , no tenderness EXTREMITIES: Diffuse swelling bilateral lower extremity 1 - Labs CBC & Chem 7: 04/17/22 05:10 04/17/22 12:32 Labs: Abnormal Lab Results - Last 24 Hours (Table) 04/16/22 04/16/22 04/16/22 Range/Units 11:17 11:29 17:49 WBC (3.8-10.6) k/uL RBC (3.80-5.40) m/uL Hgb (11.4-16.0) gm/dL Hct (34.0-46.0) % RDW (11.5-15.5) % Plt Count (150-450) k/uL Neutrophils # (Manual) (1.3-7.7) k/uL Metamyelocytes # (Man) (0) k/uL Nucleated RBCs (0-0) /100 WBC ABG pO2 337 H (83-108) mmHg ABG O2 Saturation 100.0 H (94-97) % Potassium (3.5-5.1) mmol/L Chloride (98-107) mmol/L BUN (7-17) mg/dL Glucose (74-99) mg/dL POC Glucose (mg/dL) 144 H 162 H (70-110) mg/dL Calcium (8.4-10.2) mg/dL 04/16/22 04/17/22 04/17/22 Range/Units 23:46 05:10 05:10 WBC 13.5 H (3.8-10.6) k/uL RBC 2.77 L (3.80-5.40) m/uL Hgb 8.3 L (11.4-16.0) gm/dL Hct 25.5 L (34.0-46.0) % RDW 24.6 H (11.5-15.5) % Plt Count 113 L (150-450) k/uL Neutrophils # (Manual) 11.30 H (1.3-7.7) k/uL Metamyelocytes # (Man) 0.27 H (0) k/uL Nucleated RBCs 7 H (0-0) /100 WBC ABG pO2 (83-108) mmHg ABG O2 Saturation (94-97) % Potassium 2.7 L* (3.5-5.1) mmol/L Chloride 117 H (98-107) mmol/L BUN 25 H (7-17) mg/dL Glucose 141 H (74-99) mg/dL POC Glucose (mg/dL) 169 H (70-110) mg/dL Calcium 7.5 L (8.4-10.2) mg/dL 04/17/22 Range/Units 05:10 WBC (3.8-10.6) k/uL RBC (3.80-5.40) m/uL Hgb (11.4-16.0) gm/dL Hct (34.0-46.0) % RDW (11.5-15.5) % Plt Count (150-450) k/uL Neutrophils # (Manual) (1.3-7.7) k/uL Metamyelocytes # (Man) (0) k/uL Nucleated RBCs (0-0) /100 WBC ABG pO2 (83-108) mmHg ABG O2 Saturation (94-97) % Potassium (3.5-5.1) mmol/L Chloride (98-107) mmol/L BUN (7-17) mg/dL Glucose (74-99) mg/dL POC Glucose (mg/dL) 155 H (70-110) mg/dL Calcium (8.4-10.2) mg/dL Microbiology - Last 24 Hours (Table) 04/14/22 08:45 Blood Culture - Preliminary Blood No Growth after 48 hours 04/15/22 04:00 Gram Stain - Preliminary Sputum Sputum Culture - Preliminary 04/14/22 12:00 Gram Stain - Preliminary Back Wound Culture - Preliminary 04/14/22 16:17 Gram Stain - Preliminary Back Wound Culture - Preliminary Assessment and Plan (1) Sepsis Current Visit: Yes Status: Acute Code(s): A41.9 - SEPSIS, UNSPECIFIED ORGANISM SNOMED Code(s): 35093456 Plan: 1-patient with a cath associated UTI urine has been positive for Patsy albicans, patient to continue with Eraxis , 2patient with evidence of surgical wound dehiscence of the lumbar incision in this patient who is status post surgical debridement and closure of the wound along with deep culture which are currently pending patient did have elevated vancomycin level, we will go ahead and discontinue the vancomycin to decrease risk of nephrotoxicity daptomycin has been added and continue cefepime while waiting for the culture finalized Time with Patient: Less than 30
[2022-04-17] MEDS: MIRTAZAPINE 15 MG TAB PO SCH (21:12)
[2022-04-18 00:13] LABS: Glucose,Whole Blood 155 mg/dL (70-110)
[2022-04-18] MEDS: FUROSEMIDE 10 MG/ML 4 ML VIAL IV SCH ×4 (01:04→23:31)
[2022-04-18] MEDS: ACETAMINOPHEN TAB 500 MG TAB PO SCH ×5 (01:04→23:31)
[2022-04-18] MEDS: CEFEPIME 1 GM in SODIUM CHLORIDE 0.9% 50 ML IVPB SCH ×4 (01:04→23:30)
[2022-04-18] MEDS: INSULIN ASPART (NovoLOG) 100 UNIT/ML VIAL SQ SCH ×4 (01:05→18:28)
[2022-04-18] MEDS: HYDROmorphone 1 MG/ML 1 ML SYRINGE IVP PRN (02:56)
[2022-04-18 05:23] LABS: Glucose,Whole Blood 140 mg/dL (70-110)
[2022-04-18] MEDS: LEVOTHYROXINE 88 MCG TAB PO SCH (06:33)
--- NOTE | 2022-04-18 08:12 | P.PN ---
Subjective Progress Note Date: 04/18/22 Principal diagnosis: Typical atrial flutter Patient is pleasant 71-year-old female with history of persistent typical atrial flutter, paroxysmal atrial fibrillation, hypertension, hyperlipidemia. She follows with Dr. Leger. We are consulted for A flutter. She presented for [facility] back surgery. She underwent back surgery with a long procedure. She was noted to be in atrial flutter throughout the case. After that she became bradycardic and she did have an episode appeared to be brief of severe bradycardia/cardiac arrest and she resuscitated. 03/08/2022 The patient was seen and evaluated this morning. She seems to be hypotensive now require norepinephrine. She remains in atrial flutter with overall controlled heart rate. She is on Cardizem. I'm going to stop the Cardizem and start the patient on amiodarone was bolus and drip giving the low blood pressure requiring vasopressors. Beside that continued oral anticoagulation. Follow-up with the patient. March 092021 The patient was seen and evaluated this morning. She remains in atrial flutter with controlled heart rate. Oral anticoagulation is on hold at this point in the light of bleeding. The hemoglobin this morning is below 7. There is a possibility that the patient might need another back surgery. March 102021 The patient was seen and evaluated this morning beach she underwent another surgery yesterday. She seems to be stable at this point and she is on very small dose of norepinephrine which point to be weaned later on today. Otherwise today she is in normal sinus mechanism. Hemoglobin is a stable. March 112021 The patient was seen and evaluated this morning. She is extubated. She is hemodynamic stable beside being tachycardic and underlying rhythm seems to be A. fib/atrial flutter. The pressure is soft. She just went of vasopressors. I'm going to start the patient on amiodarone IV and switch her to amiodarone by mouth down the line. Hold on any anticoagulation at this point in the light of history of bleeding. Her hemoglobin this morning is 8.9. On examination she seems to be hypervolemic with bilateral lower except his edema March 122021 The patient was seen and evaluated this morning. She remains a stable overall. She was extubated yesterday. She stated "I feel better". Currently she is in atrial fibrillation with overall controlled heart rate. Currently she is on amiodarone IV which I'm going to stop and start amiodarone by mouth. Anticoagulation is on hold right now in the light of recent history of bleeding and low hemoglobin required blood transfusion. Her hemoglobin this morning is 8.9. On examination she seems to be overall euvolemic with mild bilateral lower except his edema. 04/17/2022 The patient was seen this morning. She remains in atrial flutter with overall controlled heart rate on the current dose of verapamil as well as beta nic. I am going to DC verapamil and increase the dose of beta nic giving the cardiomyopathy situation. Her hemoglobin remained stable. Her GFR remains stable as well. She is not on any anticoagulation in the light of history of gastrointestinal bleeding. The chest x-ray showed small bilateral pleural effusion. She continues to be on IV Lasix April 182022 The patient was seen and evaluated this morning. She remains in atrial flutter/atrial fibrillation with controlled heart rate. I stopped the verapamil yesterday and increase the dose of beta nic and she has been tolerating that. She is not on anticoagulation in the light of gastrointestinal bleeding history. From the cardiac standpoint of view, we'll continue the current medical regimen beach she still in volume overload and currently she is on Lasix IV which I would continue. Objective - Vital Signs Vital signs: Vital Signs Temp 98.5 F 04/18/22 04:00 Pulse 101 H 04/18/22 07:00 Resp 11 L 04/18/22 07:00 BP 120/65 04/18/22 07:00 Pulse Ox 96 04/18/22 07:00 FiO2 40 04/16/22 14:00 Intake & Output 04/17/22 04/18/22 04/18/22 18:59 06:59 18:59 Intake Total 1180 490 270 Output Total 1345 1640 100 Balance -165 -1150 170 Weight 133.5 kg 132 kg Intake: IV 390 290 20 Anidulafungin 100 mg In 100 Sodium Chloride 0.9% 100 ml @ 84 mls/hr IVPB DAILY [facility] Rx#:[id number] Cefepime 1 gm In Sodium 50 50 Chloride 0.9% 50 ml @ 12. 5 mls/hr IVPB Q8HR [facility] Rx #:[id number] Sodium Chloride 0.9% 1, 240 240 20 000 ml @ 20 mls/hr IV . Q24H [facility] Rx#:[id number] Oral 250 Tube Feeding 400 200 Other 390 Output: Urine 1345 1640 100 Other: Voiding Method Indwelling Catheter Indwelling Catheter ABP, PAP, CO, CI - Last Documented Arterial Blood Pressure 169/164 - Constitutional General appearance: Present: no acute distress - Respiratory Respiratory: bilateral: diminished - Cardiovascular Rhythm: regular - Labs CBC & Chem 7: 04/17/22 05:10 04/17/22 12:32 Labs: Abnormal Lab Results - Last 24 Hours (Table) 04/17/22 04/17/22 04/17/22 Range/Units 11:59 12:32 18:30 Sodium 147 H (137-145) mmol/L Potassium 3.3 L (3.5-5.1) mmol/L Chloride 116 H (98-107) mmol/L BUN 25 H (7-17) mg/dL Glucose 155 H (74-99) mg/dL POC Glucose (mg/dL) 181 H 165 H (70-110) mg/dL Calcium 7.5 L (8.4-10.2) mg/dL 04/18/22 04/18/22 Range/Units 00:11 05:22 Sodium (137-145) mmol/L Potassium (3.5-5.1) mmol/L Chloride (98-107) mmol/L BUN (7-17) mg/dL Glucose (74-99) mg/dL POC Glucose (mg/dL) 155 H 140 H (70-110) mg/dL Calcium (8.4-10.2) mg/dL Microbiology - Last 24 Hours (Table) 04/14/22 12:00 Anaerobic Culture - Preliminary Back 04/14/22 16:17 Anaerobic Culture - Preliminary Back 04/14/22 12:00 Gram Stain - Preliminary Back Wound Culture - Preliminary 04/14/22 16:17 Gram Stain - Preliminary Back Wound Culture - Preliminary 04/15/22 04:00 Gram Stain - Final Sputum Sputum Culture - Final 04/14/22 08:45 Blood Culture - Preliminary Blood No Growth after 72 hours Assessment and Plan Assessment: ASSESSMENT Status post back surgery Persistent atrial fibrillation Hypertension Hyperlipidemia Cardiomyopathy, ischemic vs non-ischemic Electrolytes imbalance which has improved Back pain History of GI bleeding PLAN Continue the current medical regimen Continue Lasix IV the patient still in volume overload Continue monitor the kidney function and electrolytes Follow-up with the patient
[2022-04-18] MEDS: PANTOPRAZOLE 40 MG/10 ML VIAL IVP SCH ×2 (08:24→20:16)
[2022-04-18] MEDS: MAGNESIUM OXIDE 400 MG TAB PO SCH (08:29)
[2022-04-18] MEDS: ENOXAPARIN 40 MG/0.4 ML SYRINGE SQ SCH (08:29)
[2022-04-18] MEDS: AMIODARONE 200 MG TAB PO SCH (08:29)
[2022-04-18] MEDS: GABAPENTIN 400 MG CAP PO SCH ×3 (08:29→21:31)
[2022-04-18] MEDS: SODIUM BICARBONATE TAB 650 MG TAB PO SCH (08:30)
[2022-04-18] MEDS: ATORVASTATIN 20 MG TAB PO SCH (08:30)
[2022-04-18 08:31] LABS: Anisocytosis Marked; Basophils # (A) 0.1 k/uL (0-0.2); Basophils % (A) 1 %; Eosinophils % (A) 0 %; HCT 26.2 % (34.0-46.0); HGB 8.5 gm/dL (11.4-16.0); Hypochromasia Slight; Lymphocytes # (A) 2.2 k/uL (1.0-4.8); Lymphocytes % (A) 13 %; MCH 30.3 pg (25.0-35.0); MCHC 32.6 g/dL (31.0-37.0); MCV 92.9 fL (80.0-100.0); Macrocytosis Moderate; Mean Platelet Volume 9.6; Monocytes # (A) 0.6 k/uL (0-1.0); Monocytes % (A) 3 %; Neutrophils # (A) 13.8 k/uL (1.3-7.7); Neutrophils % (A) 82 %; Platelet Count 116 k/uL (150-450); Poikilocytosis Marked; RBC 2.82 m/uL (3.80-5.40); RDW 24.5 % (11.5-15.5); WBC 16.8 k/uL (3.8-10.6)
[2022-04-18] MEDS: METOPROLOL TARTRATE 50 MG TAB PO SCH ×2 (08:32→20:14)
[2022-04-18] MEDS: DULoxetine HCL 60 MG CAPSULE.DR PO SCH (08:33)
[2022-04-18] MEDS: SODIUM CHLORIDE 0.9% 1,000 ML IV SCH (08:34)
[2022-04-18] MEDS: MIDODRINE 5 MG TAB PO SCH ×3 (08:34→17:53)
[2022-04-18] MEDS: ANIDULAFUNGIN 100 MG in SODIUM CHLORIDE 0.9% 100 ML IVPB SCH (08:36)
--- NOTE | 2022-04-18 08:52 | P.PN ---
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 Patient is currently resting in bed, positioned with a body wedge. Patient has been moved to a room with a zulema lift to assist with PT. Patient is currently on 2L O2 via NC. Surgical Incision is well approximated with sutures intact. Librado AKBAR and ad copy writer changed dressing this morning, small amount of serosangueous drainage on surgical dressing. Nasogastric tube present, patient is currently at goal of 60 mL/hr. Patient is tolerating well. Patient is more alert today and answering my questions more clearly. Patient is able to raise bilateral upper extremities. She is able to wiggle her toes. Patient is unable to lift legs at this time, 4+ pitting edema to bilateral lower extremities. Patient is currently on Lasix. Warren catheter is patent. Fecal management system is present. Encouraged patient to continue to work with physical therapy with bed exercises. Patient has been afebrile, denies nausea/vomiting, or chest pain. Objective - Vital Signs Vital signs: Vital Signs Temp 98.5 F 04/18/22 04:00 Pulse 111 H 04/18/22 08:00 Resp 26 H 04/18/22 08:00 BP 112/89 04/18/22 08:00 Pulse Ox 96 04/18/22 08:00 FiO2 40 04/16/22 14:00 Intake & Output 04/17/22 04/18/22 04/18/22 18:59 06:59 18:59 Intake Total 1180 490 350 Output Total 1345 1640 175 Balance -165 -1150 175 Weight 133.5 kg 132 kg Intake: IV 390 290 40 Anidulafungin 100 mg In 100 Sodium Chloride 0.9% 100 ml @ 84 mls/hr IVPB DAILY [facility] Rx#:[id number] Cefepime 1 gm In Sodium 50 50 Chloride 0.9% 50 ml @ 12. 5 mls/hr IVPB Q8HR [facility] Rx #:[id number] Sodium Chloride 0.9% 1, 240 240 40 000 ml @ 20 mls/hr IV . Q24H [facility] Rx#:[id number] Oral 250 Tube Feeding 400 200 60 Other 390 Output: Urine 1345 1640 175 Other: Voiding Method Indwelling Catheter Indwelling Catheter ABP, PAP, CO, CI - Last Documented Arterial Blood Pressure 222/214 - Exam Physical Examination General: The patient is awake and alert, in no acute distress Skin: Skin is warm and dry with no obvious rashes or lesions. Hairy patches absent, no dorsal skin dimples, no cafe au lait spots. Surgical Incision to lumbar region, sutures are intact. Dressing changed this morning. Eye: Pupils are equal, round and reactive to light, extra-ocular movements are i ntact; there is normal conjunctiva bilaterally. Neck: The neck is supple, there is no tenderness and ROM intact. Cardiovascular: A-fib, Patient presents with 4+ pitting edema to BLE, 3+ pitting edema to BUE Respiratory: Diminished bilateral lung bases to auscultation, respirations are non-labored, breath sounds are equal, 2LNC Gastrointestinal: Soft, non-distended, non-tender abdomen, FMS patent, NG tube placed for nutrition, Patient currently at goal, which is 60ml/hr. Back: There is no tenderness to palpation in the midline, paralumbar, parathoracic or buttocks region. There is no obvious deformity . Musculoskeletal: ROM limited secondary to pain and stiffness from surgical pro cedure. Muscle strength in all major muscle groups of bilateral upper extremities 4-/5, bilateral lower extremities 3/5. Neurological: CN 2-12 intact. There are no obvious motor or sensory deficits. Movement and coordination equal and intact. Sensory exam to light touch intact C5-T1 and intact from L2-S1. Reflexes 2/4 in bilateral upper and lower extremities. Negative Hoffmans, babinski, and clonus signs. Psychiatric: Cooperative, appropriate mood & affect, normal judgment. - Labs CBC & Chem 7: 04/18/22 08:19 04/18/22 12:25 Labs: Abnormal Lab Results - Last 24 Hours (Table) 04/17/22 04/17/22 04/17/22 Range/Units 11:59 12:32 18:30 WBC (3.8-10.6) k/uL RBC (3.80-5.40) m/uL Hgb (11.4-16.0) gm/dL Hct (34.0-46.0) % RDW (11.5-15.5) % Plt Count (150-450) k/uL Neutrophils # (1.3-7.7) k/uL Sodium 147 H (137-145) mmol/L Potassium 3.3 L (3.5-5.1) mmol/L Chloride 116 H (98-107) mmol/L BUN 25 H (7-17) mg/dL Glucose 155 H (74-99) mg/dL POC Glucose (mg/dL) 181 H 165 H (70-110) mg/dL Calcium 7.5 L (8.4-10.2) mg/dL 04/18/22 04/18/22 04/18/22 Range/Units 00:11 05:22 08:19 WBC 16.8 H (3.8-10.6) k/uL RBC 2.82 L (3.80-5.40) m/uL Hgb 8.5 L (11.4-16.0) gm/dL Hct 26.2 L (34.0-46.0) % RDW 24.5 H (11.5-15.5) % Plt Count 116 L (150-450) k/uL Neutrophils # 13.8 H (1.3-7.7) k/uL Sodium (137-145) mmol/L Potassium (3.5-5.1) mmol/L Chloride (98-107) mmol/L BUN (7-17) mg/dL Glucose (74-99) mg/dL POC Glucose (mg/dL) 155 H 140 H (70-110) mg/dL Calcium (8.4-10.2) mg/dL Microbiology - Last 24 Hours (Table) 04/14/22 12:00 Anaerobic Culture - Preliminary Back 04/14/22 16:17 Anaerobic Culture - Preliminary Back 04/14/22 12:00 Gram Stain - Preliminary Back Wound Culture - Preliminary 04/14/22 16:17 Gram Stain - Preliminary Back Wound Culture - Preliminary 04/15/22 04:00 Gram Stain - Final Sputum Sputum Culture - Final 04/14/22 08:45 Blood Culture - Preliminary Blood No Growth after 72 hours Assessment and Plan Assessment: Lumbar wound dehiscence s/p [id number] decompression and fusion with complex perioperative and post operative course - Postoperative day #4 status post Irrigation and excisional debridement of lumbar spine [id number] cm wound, complex closure. Plan: -Appreciate customer relations consultant and team management PCC and medicine -Appreciate cardiothoracic, Gen. surgery, nephrology, ID evaluations -Continue Activity: as medically tolerated, patient needs to be transferred to a room with a zulema lift. -PT / OT DAILY work on increased strength in LE quads, hammys, etc for standing -Cont Abx for duration of stay -Pain control: Adequate today. Watch pressures and VS. -Meplex pads on sacral region with barrier cream. Cont turn. Sit at different angles. -Meds: reviewed -Trend labs, trend SED and CRP for markers -GI ppx: senna, Miralax, -Continue with FMS per GI. -Continue Warren changed per protocol -Cont with FBS -DVT PPX: Mechanical only -Hygiene: Maintain dressing clean and dry. Meticulous cleaning after BMs away from incision site patient has had several instances on the floor where she was covered and bowel movement as well as urine up to her shoulders on her back. The wound needs to be kept meticulously clean. -Encourage IS 10x/hr *I reviewed and discussed this case with my attending Dr. Alexander, whom has reviewed this chart and films and is in agreement with assessment and plan of care as outlined above.I have personally seen and examined the patient, performed the documentation and the assessment and plan as written. Number of minutes spent on the visit: [20m ].
[2022-04-18 08:57] LABS: Calcium 7.2 mg/dL (8.4-10.2)
[2022-04-18] MEDS: SIMETHICONE 40 MG/0.6 ML DROPS 2,000 MG/30 ML BOTTLE PO SCH ×4 (10:03→21:32)
[2022-04-18] MEDS: MAG HYDROX/AL HYDROX/SIMETH 30 ML, diphenhydrAMINE ELIXIR 75 MG, LIDOCAINE VISCOUS 2% 3... PO SCH ×9 (10:04→21:33)
[2022-04-18] MEDS: POTASSIUM BICARBONATE/CIT AC 20 MEQ TABLET.EFF NG-TUBE SCH ×6 (10:08→21:32)
--- NOTE | 2022-04-18 10:53 | P.PN ---
Subjective Progress Note Date: 04/18/22 The patient is seen today 04/17/2022 in follow-up in the intensive care unit. She is status post the T10 to pelvis decompression and fusion on 02/24/2022 with complex perioperative and postoperative course. She had a wound dehiscence and a possible CSF leak on 03/09/2022 and had undergone irrigation and debridement of thoracal lumbar and pelvic skin with dural repair and patch graft and L1. She had undergone a third surgery on 04/14/2022 for lumbar wound dehiscence. Dr. lAexander and performed irrigation and excisional debridement of lumbar spine 30 x 20 x 15 cm with a complex wound closure and a 4-layer fashion. She was initially on the mechanical ventilator and subsequently extubated yesterday 04/16/2022. Currently she is resting fairly comfortably in bed. She is on oxygen at 2 L/m per nasal cannula with O2 saturations in the 90s. Chest x-ray reveals small bilateral pleural effusions and atelectasis.. Left-sided PICC line is in place. She has normal saline at 20 mL per hour. Her norepinephrine has been off for approximately 48 hours. She is being nourished via nasogastric tube with vital AF at 30 mL per hour. She is status post 13 units of packed red blood cells this admission, 2 units of platelets. White count 13.5. Hemoglobin 8.3. Platelets 113. Sodium 145. Potassium 2.7. Chloride 117. BUN 25. Creatinine 0.70. Glucose 141. She is receiving Lasix 40 mg IV every 8 hours. Currently in a -1.4 L balance. Wound cultures are pending. Sputum culture is pending. Previous wound culture from 03/26/2022 was positive for pseudomonas aeruginosa, Enterococcus faecalis and Patsy. She is maintained on Eraxis, cefepime and vancomycin. The patient is seen today 04/18/2022 in follow-up in the intensive care unit. She is currently resting comfortably in bed. Awake and alert in no acute distress. She is maintaining O2 saturations in the 90s on 2 L/m per nasal cannula. Nasogastric tube remains in place. Speech is evaluating her swallowing abilities. She has 0.9 normal sinus KVO. She is continued on antibiotics in the form of cefepime, daptomycin along with Eraxis. Her dressing was changed by orthopedics today and stated the incision is clean dry well approximated. Just a small amount of serosanguineous drainage was noted. She continues to work with physical therapy. She is now in a room with a Ninfa lift for assistance. Follow-up on wound cultures from 04/14/2022 are pending. Sputum culture from 04/15/2022 revealed no growth. White count 16.8. Hemoglobin 8.5. Platelets 116. Sodium 145. Potassium 3.0. BUN 28. Creatinine 0.82. Glucose 128. She is currently in a -1.3 L balance. Remains on Lasix 40 mg IV every 8 hours. She is continued on Lovenox for DVT prophylaxis. Encouraged regarding the use of the incentive spirometer and cough and deep breathing exercises. Being nourished with vital AF and tolerating tube feedings. Objective - Vital Signs Vital signs: Vital Signs Temp 98.5 F 04/18/22 04:00 Pulse 112 H 04/18/22 10:00 Resp 27 H 04/18/22 10:00 BP 150/93 04/18/22 10:00 Pulse Ox 96 04/18/22 10:00 FiO2 40 04/16/22 14:00 Intake & Output 04/17/22 04/18/22 04/18/22 18:59 06:59 18:59 Intake Total 1180 490 687.5 Output Total 1345 1640 255 Balance -165 -1150 432.5 Weight 133.5 kg 132 kg Intake: IV 390 290 177.5 Anidulafungin 100 mg In 100 100 Sodium Chloride 0.9% 100 ml @ 84 mls/hr IVPB DAILY [facility] Rx#:[id number] Cefepime 1 gm In Sodium 50 50 37.5 Chloride 0.9% 50 ml @ 12. 5 mls/hr IVPB Q8HR [facility] Rx #:[id number] Sodium Chloride 0.9% 1, 240 240 40 000 ml @ 20 mls/hr IV . Q24H [facility] Rx#:[id number] Intake, IV Titration 50 Amount DAPTOmycin 360 mg In 50 Sodium Chloride 0.9% 50 ml @ 100 mls/hr IVPB Q24HR [facility] Rx#:[id number] Oral 250 Tube Feeding 400 200 180 Other 390 30 Output: Urine 1345 1640 255 Other: Voiding Method Indwelling Catheter Indwelling Catheter ABP, PAP, CO, CI - Last Documented Arterial Blood Pressure 222/214 - Exam GENERAL EXAM: Awake, alert, morbidly obese, 71-year-old female, on 2 L nasal cannula, fairly comfortable in no apparent distress. HEAD: Normocephalic. EYES: Normal reaction of pupils, equal size. NOSE: Naso gastric tube in place. Clear with pink turbinates. THROAT: No erythema or exudates. NECK: No masses, no JVD. CHEST: Healing large hematoma and edema of the right breast LUNGS: Equal air entry with crackles in the posterior bases. Diminished right base. CVS: S1 and S2 normal with no audible murmur, irregular rhythm. ABDOMEN: Obese, unable to appreciate organomegaly, normal bowel sounds, no guarding or rigidity. SPINE: Surgical dressing dry and intact. SKIN: Old ecchymosis noted over the right breast and chest area. CENTRAL NERVOUS SYSTEM: No focal deficits, tone is normal in all 4 extremities. EXTREMITIES: There is 1-2+ peripheral edema. No clubbing, no cyanosis. Erika pheral pulses are intact. - Labs CBC & Chem 7: 04/18/22 08:19 04/18/22 08:19 Labs: Abnormal Lab Results - Last 24 Hours (Table) 04/17/22 04/17/22 04/17/22 Range/Units 11:59 12:32 18:30 WBC (3.8-10.6) k/uL RBC (3.80-5.40) m/uL Hgb (11.4-16.0) gm/dL Hct (34.0-46.0) % RDW (11.5-15.5) % Plt Count (150-450) k/uL Neutrophils # (1.3-7.7) k/uL Sodium 147 H (137-145) mmol/L Potassium 3.3 L (3.5-5.1) mmol/L Chloride 116 H (98-107) mmol/L BUN 25 H (7-17) mg/dL Glucose 155 H (74-99) mg/dL POC Glucose (mg/dL) 181 H 165 H (70-110) mg/dL Calcium 7.5 L (8.4-10.2) mg/dL 04/18/22 04/18/22 04/18/22 Range/Units 00:11 05:22 08:19 WBC 16.8 H (3.8-10.6) k/uL RBC 2.82 L (3.80-5.40) m/uL Hgb 8.5 L (11.4-16.0) gm/dL Hct 26.2 L (34.0-46.0) % RDW 24.5 H (11.5-15.5) % Plt Count 116 L (150-450) k/uL Neutrophils # 13.8 H (1.3-7.7) k/uL Sodium (137-145) mmol/L Potassium (3.5-5.1) mmol/L Chloride (98-107) mmol/L BUN (7-17) mg/dL Glucose (74-99) mg/dL POC Glucose (mg/dL) 155 H 140 H (70-110) mg/dL Calcium (8.4-10.2) mg/dL 04/18/22 Range/Units 08:19 WBC (3.8-10.6) k/uL RBC (3.80-5.40) m/uL Hgb (11.4-16.0) gm/dL Hct (34.0-46.0) % RDW (11.5-15.5) % Plt Count (150-450) k/uL Neutrophils # (1.3-7.7) k/uL Sodium (137-145) mmol/L Potassium 3.0 L (3.5-5.1) mmol/L Chloride 117 H (98-107) mmol/L BUN 28 H (7-17) mg/dL Glucose 128 H (74-99) mg/dL POC Glucose (mg/dL) (70-110) mg/dL Calcium 7.2 L (8.4-10.2) mg/dL Microbiology - Last 24 Hours (Table) 04/14/22 12:00 Gram Stain - Preliminary Back Wound Culture - Preliminary 04/14/22 16:17 Gram Stain - Preliminary Back Wound Culture - Preliminary 04/14/22 12:00 Anaerobic Culture - Preliminary Back 04/14/22 16:17 Anaerobic Culture - Preliminary Back 04/15/22 04:00 Gram Stain - Final Sputum Sputum Culture - Final 04/14/22 08:45 Blood Culture - Preliminary Blood No Growth after 72 hours Assessment and Plan Assessment: Acute lumbar wound dehiscence, status post irrigation and excisional debridement of the lumbar spine 30 x 20 x 15 cm with complex wound closure for layered fashion on 04/14/2022, initially on the mechanical ventilator, extubated 04/16/2022 Lumbar decompression/fusion 02/24/2022, developed some foul-smelling serous sanguinous drainage. On 03/09/2022 she did require exploration and washout with dural repairs due to falls. Acute sepsis with hypotension secondary to urinary tract infection with Enterobacter, improved and off norepinephrine. Bacteremia secondary to wound infection positive for pseudomonas aeruginosa, Enterococcus faecalis, Patsy albicans from 03/26/2022. Follow-up cultures pending. Currently on Eraxis, daptomycin, cefepime, Atrial flutter fibrillation/flutter with a rapid ventricular currently in sinus rhythm Lactic acidosis secondary to above, recovered Acute renal failure, recovered, current creatinine 0.82 Hypokalemia, current potassium 3.0 Hyponatremia, recovered current sodium 145 Leukocytosis, current white count 16.8 Acute anemia with a hemoglobin dropped to 5.4. The patient had developed a large right sided chest wall/breast hematoma suspect secondary to fall on 03/06/2022. The patient has now received 13 units of packed red blood cells and her hemoglobin this morning was 8.3. Cardiac arrest, brief pulseless electrical activity encountered in the operating room 02/24/2022 exact etiology is not clear. Acute hypoxic/hypercapnic respiratory failure secondary to cardiac arrest/pulseless electrical activity, patient was extubated Morbid obesity. BMI of 45.6 History of right hemidiaphragm paralysis History of right-sided breast cancer, previous lumpectomy Chronic atrial fibrillation/flutter, anticoagulated with Xarelto currently on hold due to GI bleed and recurrent surgery Dyslipidemia Benign essential hypertension Poor overall functional performance based on the above-mentioned multiple comorbidities Plan: The patient was seen and evaluated Medications and labs reviewed Currently on 2 L nasal cannula Titrate the FiO2 as tolerated Continued on Eraxis, cefepime, daptomycin Replace electrolytes Being nourished with vital AF via nasogastric tube Lovenox for DVT prophylaxis Xarelto remains on hold DO NOT RESUSCITATE/DO NOT INTUBATE CODE STATUS Prognosis remains quite guarded We will continue to follow I have personally seen and examined the patient, performed the documentation and the assessment and plan as written. Number of minutes spent on the visit: 10.
[2022-04-18] MEDS: LACTULOSE 20 GM/30 ML CUP PO SCH (11:00)
[2022-04-18 11:51] LABS: Glucose,Whole Blood 178 mg/dL (70-110)
[2022-04-18] MEDS: HYDROmorphone 0.5 MG/0.5 ML SYRINGE IVP PRN ×2 (13:39→20:15)
--- NOTE | 2022-04-18 14:26 | P.CN ---
Psychiatric Consult - . Consult date: 04/18/22 Consult:: 04/18/22 13:26 IDENTIFYING DATA: This patient is a 71 yo female , has 3 kids, , lives alone. REASON FOR REFERRAL: Psychiatry was consulted for depression and motivational counselling HISTORY OF PRESENT ILLNESS: The patient presented to the hospital initially on 02/24 and had acomplicated and complex perioperative and post op course. according to medicine note "She is status post the T10 to pelvis decompression and fusion on 02/24/2022 with complex perioperative and postoperative course. She had a wound dehiscence and a possible CSF leak on 03/09/2022 and had undergone irrigation and debridement of thoracal lumbar and pelvic skin with dural repair and patch graft and L1. She had undergone a third surgery on 04/14/2022 for lumbar wound dehiscence. Dr. Alexander and performed irrigation and excisional debridement of lumbar spine 30 x 20 x 15 cm with a complex wound closure and a 4-layer fashion. She was initially on the mechanical ventilator and subsequently extubated yesterday 04/16/2022. Currently she is resting fairly comfortably in bed. She is on oxygen at 2 L/m per nasal cannula with O2 saturations in the 90s. Chest x-ray reveals small bilateral pleural effusions and atelectasis." Patient was seen today by technical report writer for evaluation. patient has remained in the ICU. Coating Manager spoke with patient's nurse today in the hallway and explained patient's hospitalization and also patient's passive suicidal thoughts and hopelessness along with depression. Patient was seen sitting in the chair next to her bed and agreeable to speak to technical report writer. Patient appeared to have poor energy and was mildly lethargic. She spoke softly and slowly. She spoke about feeling hopeless about her hospitalization and also her comorbidities. She was fairly concrete. She claims that she has been having a "hard time" and also "planned on dying". She was coughing several times during the interview. She claims "the doctors or alcohol in the good things" and does state that she believes and did show mild motivation. She claims that she feels like she is improving however very slowly and feels "tired". She claims that she was also "torn between dying in living" however states that her family doesn't want her to live. She did endorse mild anxiety. She is complaining of pain at times. She claims that she is feeling depressed, claims have poor sleep and poor appetite. She is denying any suicidal thoughts at this time intent or plan now or ever does have passive thoughts of . At this time patient denies any homical ideations, intent or plan. Patient denies any auditory, visual hallucinations and denies any paranoia or delusions. Patients admits to using no recreational drugs or cigarettes. PAST PSYCHIATRIC HISTORY: Patient has a a history of depression. Patient is currently on Cymbalta and Remeron. Patient denies any previous psychiatric hospitalizations. Patient denies any psychiatric outpatient follow-up. He did claim that she had a suicide attempt in 1987 where she overdosed on pills. Past Medical History: Atrial Fibrillation, Atrial Flutter, Cancer, Chest Pain / Angina, GERD/Reflux, Hyperlipidemia, Hypertension, Osteoarthritis (OA), Thyroid Disorder Additional Past Medical History / Comment(s): Rr breast cancer, hiatal hernia, chronic low back pain. partially paralyzed rt diaphragm, infection rt breast after surgery History of Any Multi-Drug Resistant Organisms: None Reported Past Surgical History: Back Surgery, Bladder Surgery, Breast Surgery, Cardiac Ablation, Cholecystectomy, EPS, Heart Catheterization, Hernia Repair, Hysterectomy, Joint Replacement, Orthopedic Surgery Additional Past Surgical History / Comment(s): R breast core bx/needle loc, R breast lumpectomy/axillary node dissection, CHATO, cardioversion, low back surgeries x3 with plate/screws, total R knee x3, R foot multiple surgeries for spur/neuromas, L foot cystectomy, R elbow injury w/ surgery, R wrist ganglion cystectomy, partial thyroidectomy, 4 abdominal hernia repairs, bladder suspension, colonoscopy, loki cataract, laser loki eye surgery 01/31/22 Past Anesthesia/Blood Transfusion Reactions: Previous Problems w/ Anesthesia, Postoperative Nausea & Vomiting (PONV) Additional Past Anesthesia/Blood Transfusion Reaction / Comm: On ventilator for 2 days after cardiac ablation d/t diaphragm paralysis-rt side Past Psychological History: Depression Additional Psychological History / Comment(s): . Smoking Status: Never smoker Past Alcohol Use History: Rare Past Drug Use History: None Reported ALLERGIES: as per EMR. CHEMICAL DEPENDENCY HISTORY: as per HPI. FAMILY PSYCHIATRIC/SUBSTANCE USE HISTORY: denies SOCIAL HISTORY: Patient was born and raised in [facility]. She states that she lived most of her life in [place] however. Claims that he completed high school and worked several jobs in the past. She currently lives alone, has 3 kids. She is . MENTAL STATUS EXAM: General Appearance: Patient appears to be obese, stated age is lethargic, guarded, attempts to cooperate. Patient appears to have fair hygiene and grooming wearing hospital gown with poor eye contact. Behavior: Patient is calmly lying in bed without any agitated behavior. Guarded. Speech: Patient's speech is fluent and nonpressured. Monotone and soft tone. Mood/Affect: Patient reports their mood is "depressed", affect is congruent and constricted Suicidality/Homicidality: Patient denies having any suicidal or homicidal ideation intent or plan. She does however admit to thoughts about and dying. Perceptions: Patient denies any visual hallucinations and denies any auditory hallucinations Though content/process: There is no evidence of any delusional thought content. Logical. Catastrophizing at times. Depressive content. Memory and concentration: AOX3, grossly intact for the purposes of this session. Can spell "WORLD" backwards Judgment and insight: poor IMPRESSIONS: Major depressive disorder, without psychotic features PLAN: -At this time patient DOES NOT meet criteria for inpatient psychiatric admission. -Delirium precautions recommended with patient including - avoiding use of narcotics and GENERAL CLEANER sedatives, limit anticholinergic medications when possible, frequent re-orientation, minimize use of restraints, open window shades during the day and close them at night -Would recommend the following medication changes/additions: Increase Remeron to 15 mg daily at bedtime for sleep/mood, continue with Cymbalta 60 mg daily for mood/anxiety, added Wellbutrin 150 mg daily for mood adjunct. -Will continue to follow along -Please contact with any questions. 04/18/22 13:28 04/18/22 14:20
[2022-04-18] MEDS ORDERED: buPROPion XL 150 MG TAB.ER.24H PO SCH (14:30)
[2022-04-18] MEDS ORDERED: buPROPion 75 MG TAB PO SCH (15:06)
[2022-04-18] MEDS ORDERED: buPROPion 75 MG TAB PO ONE (15:34)
--- NOTE | 2022-04-18 16:14 | P.PN ---
Subjective Progress Note Date: 04/18/22 Principal diagnosis: GI bleeding Patient is sitting up in the chair today. Tolerating tube feeds now at 60 mL per hour through the nasogastric tube. White blood cell count increased slightly. Vital signs noted. Apparently this morning the patient was again questioning going forward with care. Her family met with her again this afternoon and currently the plan is to push forward with her rehab for the next 2 weeks. If no improvement is noted family and patient have agreed to consider hospice measures. Still having loose stools through the F MS. Objective - Vital Signs Vital signs: Vital Signs Temp 97.9 F 04/18/22 16:00 Pulse 80 04/18/22 16:00 Resp 20 04/18/22 16:00 BP 129/68 04/18/22 16:00 Pulse Ox 95 04/18/22 16:00 FiO2 40 04/16/22 14:00 Intake & Output 04/17/22 04/18/22 04/18/22 18:59 06:59 18:59 Intake Total 6585 699 6248.0 Output Total 1345 1640 815 Balance -165 -1150 235.0 Weight 133.5 kg 132 kg Intake: IV 390 290 270.0 Anidulafungin 100 mg In 100 100 Sodium Chloride 0.9% 100 ml @ 84 mls/hr IVPB DAILY [facility] Rx#:[id number] Cefepime 1 gm In Sodium 50 50 50.0 Chloride 0.9% 50 ml @ 12. 5 mls/hr IVPB Q8HR [facility] Rx #:[id number] Sodium Chloride 0.9% 1, 240 240 120 000 ml @ 20 mls/hr IV . Q24H [facility] Rx#:[id number] Intake, IV Titration 50 Amount DAPTOmycin 360 mg In 50 Sodium Chloride 0.9% 50 ml @ 100 mls/hr IVPB Q24HR [facility] Rx#:[id number] Oral 250 Tube Feeding 400 200 420 Other 390 60 Output: Urine 1345 1640 815 Other: Voiding Method Indwelling Catheter Indwelling Catheter Indwelling Catheter ABP, PAP, CO, CI - Last Documented Arterial Blood Pressure 222/214 - Exam Abdomen: Soft, nontender, nondistended - Labs CBC & Chem 7: 04/18/22 08:19 04/18/22 12:25 Labs: Abnormal Lab Results - Last 24 Hours (Table) 0104/18/22 04/18/22 Range/Units 18:30 00:11 05:22 WBC (3.8-10.6) k/uL RBC (3.80-5.40) m/uL Hgb (11.4-16.0) gm/dL Hct (34.0-46.0) % RDW (11.5-15.5) % Plt Count (150-450) k/uL Neutrophils # (1.3-7.7) k/uL Potassium (3.5-5.1) mmol/L Chloride (98-107) mmol/L BUN (7-17) mg/dL Glucose (74-99) mg/dL POC Glucose (mg/dL) 165 H 155 H 140 H (70-110) mg/dL Calcium (8.4-10.2) mg/dL 04/18/22 04/18/22 04/18/22 Range/Units 08:19 08:19 11:50 WBC 16.8 H (3.8-10.6) k/uL RBC 2.82 L (3.80-5.40) m/uL Hgb 8.5 L (11.4-16.0) gm/dL Hct 26.2 L (34.0-46.0) % RDW 24.5 H (11.5-15.5) % Plt Count 116 L (150-450) k/uL Neutrophils # 13.8 H (1.3-7.7) k/uL Potassium 3.0 L (3.5-5.1) mmol/L Chloride 117 H (98-107) mmol/L BUN 28 H (7-17) mg/dL Glucose 128 H (74-99) mg/dL POC Glucose (mg/dL) 178 H (70-110) mg/dL Calcium 7.2 L (8.4-10.2) mg/dL Microbiology - Last 24 Hours (Table) 04/14/22 08:45 Blood Culture - Preliminary Blood No Growth after 96 hours 04/14/22 12:00 Gram Stain - Preliminary Back Wound Culture - Preliminary 04/14/22 16:17 Gram Stain - Preliminary Back Wound Culture - Preliminary 04/14/22 12:00 Anaerobic Culture - Preliminary Back 04/14/22 16:17 Anaerobic Culture - Preliminary Back Assessment and Plan (1) GI bleed Narrative/Plan: Patient seems to be improved today. Continue tube feeds at goal. Discussed options of take tube placement. We'll tentatively place PEG tube on or Sunday as long as the patient desires for us to do so. Current Visit: Yes Status: Acute Priority: High Code(s): K92.2 - GASTROINTESTINAL HEMORRHAGE, UNSPECIFIED SNOMED Code(s): 27013026
--- NOTE | 2022-04-18 17:53 | P.PN ---
Subjective Progress Note Date: 04/18/22 Patient is a 71 yo CF with a hx of A fib s/p ablation, GERD, hypertension, dyslipidemia, and right diaphragmatic paralysis who presented for T10 to Pelvis decompression and fusion with revision. Course complicated by significant blood loss. Patient was on vasopressors, also received TXA gtt. She received 7 L of lactated Ringer's. She received 1 amp of sodium bicarb intaop. She also received albumin. Patient then had a cardiac arrest. During the case she developed A. fib with RVR and then quickly transitioned into bradycardia with a low end-tidal CO2. She received 0.4 of atropine and CPR was started. She received epinephrine 0.5. She achieved ROSC. Total down time was less than 5 minutes. She was extubated on 02/25. She continued to do well but struggled with pain. She was downgraded from ICU on 03/03. On 03/06/22 patient was noted to have a significant drop in hemoglobin from 10.0 down to 7.5 and upon reevaluation on 03/07 was found to have hemoglobin of 5.4, patient required multiple transfusions. She has received a total of 7 units PRBCs and 1 unit of platelets. She underwent a CT abdomen and pelvis and was found to have a large right chest hematoma dilated small bowel concerning for ileus. Patient was evaluated by cardiothoracic surgery and they recommended conservative management. On 03/07, patient was noted to be hypotensive with elevated WBC count of 42.3, with worsening renal function and hyperkalamia. Patient was treated with NS bolus, IV insulin/D50, Albuterol and sodium bicarbonate. She was transferred back to the ICU for septic shock requiring Levophed. Patient was started on Vancomycin and Cefepime. Blood and urine cultures were obtained and positive for Enterobacter. Infectious disease was consulted and patient was continued on Cefepime for treatment of Enterobacter UTI with secondary bacteremia and Vancomycin was discontinued. Patient was later weaned off of vasopressors and again transferred out of the ICU. Patient was started on Lasix for treatment of acute on chronic systolic heart failure with EF of 35-40%. Patient continued on Protonix for GI prophylaxis, amiodarone and metoprolol for atrial fibrillation with RVR sodium bicarb for treatment of metabolic acidosis. Pt's Xarelto remains hold at this time. Patient was evaluated by PMR and is currently not a candidate for inpatient rehab. She has been cleared by orthopedic surgery to start working with physical therapy. On 03/26/22 patient was again found to have elevating leukocytosis and repeat Wound cultures were obtained. Wound cultures were positive for pseudomonas aeruginosa, enterococcus fasciculus, and Patsy albicans. Patient to continue with Zosyn per culture and sensitivity report and as recommended by infectious disease as this may be contamination/colonization however patient is a high risk of infection so we will continue with empiric antibiotic therapy. Overnight on 03/28/22 patient again developed episodes of melena and at that time Dr. Arce, general surgeon was re-consulted. CT abdomen and pelvis revealing bilateral hydronephrosis unable to rule out obstructive etiology, concerns for fecal impaction, and persistent previously known right anterior chest wall hematoma. General surgery following and reevaluated patient secondary to concerns of fecal impaction and started patient on lactulose. Wiley catheter was inserted secondary to bi lateral hydronephrosis and patient was evaluated by urologist recommending continuation of Wiley catheter as bilateral hydronephrosis is believed to be resulting secondary to urinary retention. On the evening of 04/03/21 patient with continued atrial tachycardia and hypotension and unable to take metoprolol secondary to low blood pressures. Patient had episode of hematochezia along with large blood clot and was transferred back to the ICU. Had bedside manual disimpaction with general surgery. Also has a posterior anal fissure could likely because of current bleeding. On a bowel regimen. Hemoglobin continues to down trend. Requiring further blood transfusions. Hemoglobin currently stable. Hemodynamically stable. Patient pending transfer for GI at [facility]. Subjective: Had extensive conversation with ortho, palliative, SW, nursing, psychiatry, and family today. Goal now is to push for PEG tube, then rehab. Should she fail rehab, patient's family is then willing to consider hospice. Vitals Signs Reviewed. Gen: awake, alert HEENT: normocephalic, atraumatic, good hearing acuity, moist mucous membranes Resp: good air exchange, breathing comfortably with no accessory muscle use CVS: good distal perfusion x 4, tachycardic GI: soft, NTTP, distended, +FMS : no SPT, no CVAT, wiley catheter is present MSK: no pitting edema, no clubbing, wound is dehisced down to spine, does not appear to be foul smelling or have pustular discharge, Neuro: non-focal, moving all extremities Psych: cooperative, euthymic mood Assessment and Plan: GI bleeding, likely lower Acute abdominal pain - resolved Fecal impaction, status post manual disimpaction Posterior Anal fissure -Gen surgery following and managing FMS and laxatives -Continue with Protonix 40 mg IVP twice daily -Hemoglobint stable -Total transfusions are 13U PRBC, 2U FFP -On bowel regimen -Discussed with family on 04/14, transfer to [place] deferred unless HDS from GI Bleeding, currently stable Atrial flutter/fibrillation with RVR Status post Cardiac arrest with ROSC Acute on chronic systolic heart failure -Cardiology following, discussed case on 04/15, metoprolol to 50mg BID,digoxin s topped, verapamil 40mg BID, amiodarone -Continuous telemetry monitoring. -I ordered albumin 25gm on 04/14 PM and patient rec'd lasix 40mg IV once 04/15 for volume overload and intravascular volume depletion -also on Midodrine 10mg AC-TID -Holding anticoagulation due to ongoing GI bleed Poor nutritional intake Severe protein calorie malnutrition Anasarca -Reducing mirtazipine to 7.5mg qHS to reduce somnolence effects while continuing effects on appetite stimulation -Patient getting tube feeds Hypokalemia- resolved Septic shock - resolved Enterobacter cloacae UTI with secondary bacteremia - resolved Lactic acidosis Leukocytosis -resolved Patsy UTI Possible, but not definitive surgical site infection due to poor wound healing - OR cultures pending -Infectious disease following and managing antibiotic course at this time. -ID has patient on Eraxis, vancomycin, cefepime -Discussed with ID that zosyn will be exchanged with cefepime due to thrombocytopenia -thrombocytopenia is improving since discontinuing zosyn. Bilateral hydronephrosis, likely secondary to urinary retention -CT abdomen and pelvis revealing bilateral hydronephrosis unable to rule out obstructive etiology. -Renal function stable -Urology following, recommending continuation of Wiley catheter Prerenal azotemia, improving Hyponatremiaresolving Hyperkalemiaresolved Hypokalemiaresolved Metabolic acidosis, resolved -Continue sodium bicarb 650 mg twice a day -Nephrology following. Prediabetes with hyperglycemia, now hypoglycemia -Likely steroid induced -A1c is 6 -Continue with sliding scale Right breast hematoma - stable T10 to pelvis decompression with fusion Post-op pain -Management per primary admitting Orthopedic surgery team including DVT prophylaxis, pain management, wound/dressing care, weightbearing, and PT/OT . -PT/OT following. -return to OR on 04/14 for revision and washout, site is dehisced but does not appear to be infected since no foul smell or pustular discharge. OR cultures pending, gram stain reviewed 04/16, no organisms seen. Right diaphragmatic paralysis -No interventions for her pulmonology Hyperlipidemia -atorvastatin. History of hypertension -Currently On Midodrine for episodes of hypotension Transaminitis -Likely ischemic hepatitis. -Resolved Thank you for allowing us to participate in the care of this pleasant patient. Do not hesitate to contact us with questions. Someone can be reached from the [facility] hospitalist group all hours of the day at [phone] or via [employer]. Objective - Vital Signs Vital signs: Vital Signs Temp 97.9 F 04/18/22 16:00 Pulse 80 04/18/22 16:00 Resp 20 04/18/22 16:00 BP 129/68 04/18/22 16:00 Pulse Ox 95 04/18/22 16:00 FiO2 40 04/16/22 14:00 Intake & Output 04/17/22 04/18/22 04/18/22 18:59 06:59 18:59 Intake Total 3151 979 9001.5 Output Total 1345 1640 1115 Balance -165 -1150 97.5 Weight 133.5 kg 132 kg Intake: IV 390 290 312.5 Anidulafungin 100 mg In 100 100 Sodium Chloride 0.9% 100 ml @ 84 mls/hr IVPB DAILY [facility] Rx#:[id number] Cefepime 1 gm In Sodium 50 50 62.5 Chloride 0.9% 50 ml @ 12. 5 mls/hr IVPB Q8HR [facility] Rx #:[id number] Sodium Chloride 0.9% 1, 240 240 150 000 ml @ 20 mls/hr IV . Q24H [facility] Rx#:[id number] Intake, IV Titration 50 Amount DAPTOmycin 360 mg In 50 Sodium Chloride 0.9% 50 ml @ 100 mls/hr IVPB Q24HR [facility] Rx#:[id number] Oral 250 Tube Feeding 400 200 540 Other 390 60 Output: Urine 1345 1640 1115 Other: Voiding Method Indwelling Catheter Indwelling Catheter Indwelling Catheter ABP, PAP, CO, CI - Last Documented Arterial Blood Pressure 222/214 - Labs CBC & Chem 7: 04/18/22 08:19 04/18/22 12:25 Labs: Abnormal Lab Results - Last 24 Hours (Table) 04/17/22 04/18/22 04/18/22 Range/Units 18:30 00:11 05:22 WBC (3.8-10.6) k/uL RBC (3.80-5.40) m/uL Hgb (11.4-16.0) gm/dL Hct (34.0-46.0) % RDW (11.5-15.5) % Plt Count (150-450) k/uL Neutrophils # (1.3-7.7) k/uL Potassium (3.5-5.1) mmol/L Chloride (98-107) mmol/L BUN (7-17) mg/dL Glucose (74-99) mg/dL POC Glucose (mg/dL) 165 H 155 H 140 H (70-110) mg/dL Calcium (8.4-10.2) mg/dL 04/18/22 04/18/22 04/18/22 Range/Units 08:19 08:19 11:50 WBC 16.8 H (3.8-10.6) k/uL RBC 2.82 L (3.80-5.40) m/uL Hgb 8.5 L (11.4-16.0) gm/dL Hct 26.2 L (34.0-46.0) % RDW 24.5 H (11.5-15.5) % Plt Count 116 L (150-450) k/uL Neutrophils # 13.8 H (1.3-7.7) k/uL Potassium 3.0 L (3.5-5.1) mmol/L Chloride 117 H (98-107) mmol/L BUN 28 H (7-17) mg/dL Glucose 128 H (74-99) mg/dL POC Glucose (mg/dL) 178 H (70-110) mg/dL Calcium 7.2 L (8.4-10.2) mg/dL Microbiology - Last 24 Hours (Table) 04/14/22 08:45 Blood Culture - Preliminary Blood No Growth after 96 hours 04/14/22 12:00 Gram Stain - Preliminary Back Wound Culture - Preliminary 04/14/22 16:17 Gram Stain - Preliminary Back Wound Culture - Preliminary 04/14/22 12:00 Anaerobic Culture - Preliminary Back 04/14/22 16:17 Anaerobic Culture - Preliminary Back
[2022-04-18 18:21] LABS: Glucose,Whole Blood 164 mg/dL (70-110)
[2022-04-18] MEDS: NOREPINEPHRINE 8 MG in SODIUM CHLORIDE 0.9% 250 ML IV SCH (18:28)
[2022-04-18] MEDS ORDERED: MIRTAZAPINE 15 MG TAB PO SCH (21:00)
--- NOTE | 2022-04-18 21:11 | P.PN ---
Subjective Progress Note Date: 04/18/22 Principal diagnosis: UTI and bacteremia Patient is a 71-year-old female with a past medical history difficult for atrial fibrillation flutter hypertension hyperlipidemia hypothyroidism right breast cancer electively admitted to the hospital on 02/24/2022 for T10 to lumb ar spine revision decompression and posterior lateral interbody fusion, patient did have a episode of hypotension and elevated white count requiring admission to the ICU patient did have Enterobacter urinary tract infection and bacteremia and patient did have exploration of the thoracolumbar incision completed on 03/09/2022 with apparently no evidence of any abscess, patient subsequently did have dehiscence of the lower lumbar incision and a low-grade fever on 04/14/2022 for the patient was taken back to the OR on 04/14/2022 status post washout and closure of the wound. On today's evaluation that is 04/18/2022 the patient continues to be afebrile, patient is currently breathing comfortably on 2 L nasal cannula, the patient is slightly more awake and alert in the chair however did not provide a reliable history mostly shaking head yes and no to the questions asked, no vomiting or any other changes reported by the nursing staff patient did have a fecal management system with loose stool Objective - Vital Signs Vital signs: Vital Signs Temp 98.5 F 04/18/22 04:00 Pulse 80 04/18/22 11:00 Resp 24 04/18/22 11:00 BP 145/97 04/18/22 11:00 Pulse Ox 97 04/18/22 11:00 FiO2 40 04/16/22 14:00 Intake & Output 04/17/22 04/18/22 04/18/22 18:59 06:59 18:59 Intake Total 1180 490 700.0 Output Total 1345 1640 295 Balance -165 -1150 405.0 Weight 133.5 kg 132 kg Intake: IV 390 290 190.0 Anidulafungin 100 mg In 100 100 Sodium Chloride 0.9% 100 ml @ 84 mls/hr IVPB DAILY [facility] Rx#:[id number] Cefepime 1 gm In Sodium 50 50 50.0 Chloride 0.9% 50 ml @ 12. 5 mls/hr IVPB Q8HR [facility] Rx #:[id number] Sodium Chloride 0.9% 1, 240 240 40 000 ml @ 20 mls/hr IV . Q24H [facility] Rx#:[id number] Intake, IV Titration 50 Amount DAPTOmycin 360 mg In 50 Sodium Chloride 0.9% 50 ml @ 100 mls/hr IVPB Q24HR [facility] Rx#:[id number] Oral 250 Tube Feeding 400 200 180 Other 390 30 Output: Urine 1345 1640 295 Other: Voiding Method Indwelling Catheter Indwelling Catheter ABP, PAP, CO, CI - Last Documented Arterial Blood Pressure 222/214 - Exam GENERAL DESCRIPTION: An elderly female lying in Bed in no distress RESPIRATORY SYSTEM: Unlabored breathing , decreased breath sounds at bases HEART: S1 S2 regular rate and rhythm , ABDOMEN: Soft , no tenderness EXTREMITIES: Diffuse swelling bilateral lower extremity 1 - Labs CBC & Chem 7: 04/18/22 08:19 04/18/22 18:27 Labs: Abnormal Lab Results - Last 24 Hours (Table) 04/17/22 04/17/22 04/18/22 Range/Units 12:32 18:30 00:11 WBC (3.8-10.6) k/uL RBC (3.80-5.40) m/uL Hgb (11.4-16.0) gm/dL Hct (34.0-46.0) % RDW (11.5-15.5) % Plt Count (150-450) k/uL Neutrophils # (1.3-7.7) k/uL Sodium 147 H (137-145) mmol/L Potassium 3.3 L (3.5-5.1) mmol/L Chloride 116 H (98-107) mmol/L BUN 25 H (7-17) mg/dL Glucose 155 H (74-99) mg/dL POC Glucose (mg/dL) 165 H 155 H (70-110) mg/dL Calcium 7.5 L (8.4-10.2) mg/dL 04/18/22 04/18/22 04/18/22 Range/Units 05:22 08:19 08:19 WBC 16.8 H (3.8-10.6) k/uL RBC 2.82 L (3.80-5.40) m/uL Hgb 8.5 L (11.4-16.0) gm/dL Hct 26.2 L (34.0-46.0) % RDW 24.5 H (11.5-15.5) % Plt Count 116 L (150-450) k/uL Neutrophils # 13.8 H (1.3-7.7) k/uL Sodium (137-145) mmol/L Potassium 3.0 L (3.5-5.1) mmol/L Chloride 117 H (98-107) mmol/L BUN 28 H (7-17) mg/dL Glucose 128 H (74-99) mg/dL POC Glucose (mg/dL) 140 H (70-110) mg/dL Calcium 7.2 L (8.4-10.2) mg/dL 04/18/22 Range/Units 11:50 WBC (3.8-10.6) k/uL RBC (3.80-5.40) m/uL Hgb (11.4-16.0) gm/dL Hct (34.0-46.0) % RDW (11.5-15.5) % Plt Count (150-450) k/uL Neutrophils # (1.3-7.7) k/uL Sodium (137-145) mmol/L Potassium (3.5-5.1) mmol/L Chloride (98-107) mmol/L BUN (7-17) mg/dL Glucose (74-99) mg/dL POC Glucose (mg/dL) 178 H (70-110) mg/dL Calcium (8.4-10.2) mg/dL Microbiology - Last 24 Hours (Table) 04/14/22 08:45 Blood Culture - Preliminary Blood No Growth after 96 hours 04/14/22 12:00 Gram Stain - Preliminary Back Wound Culture - Preliminary 04/14/22 16:17 Gram Stain - Preliminary Back Wound Culture - Preliminary 04/14/22 12:00 Anaerobic Culture - Preliminary Back 04/14/22 16:17 Anaerobic Culture - Preliminary Back 04/15/22 04:00 Gram Stain - Final Sputum Sputum Culture - Final Assessment and Plan (1) Sepsis Current Visit: Yes Status: Acute Code(s): A41.9 - SEPSIS, UNSPECIFIED ORGANISM SNOMED Code(s): 78680946 Plan: 1-patient with a cath associated UTI urine has been positive for Patsy albicans, patient to continue with Eraxis , 2patient with evidence of surgical wound dehiscence of the lumbar incision in t his patient who is status post surgical debridement and closure of the wound along with deep culture which are currently pending patient currently covered with cefepime and daptomycin which will be continued, while waiting for the culture finalized Time with Patient: Less than 30
[2022-04-18 23:52] LABS: Glucose,Whole Blood 157 mg/dL (70-110)
[2022-04-19] MEDS: INSULIN ASPART (NovoLOG) 100 UNIT/ML VIAL SQ SCH ×5 (00:02→23:39)
[2022-04-19] MEDS: HYDROmorphone 1 MG/ML 1 ML SYRINGE IVP PRN ×2 (00:06→04:15)
[2022-04-19] MEDS: HYDROmorphone 0.5 MG/0.5 ML SYRINGE IVP PRN ×3 (02:02→21:36)
[2022-04-19] MEDS: SODIUM CHLORIDE 0.9% 1,000 ML IV SCH (04:11)
[2022-04-19 05:27] LABS: Anisocytosis Marked; HCT 26.8 % (34.0-46.0); HGB 8.4 gm/dL (11.4-16.0); Hypochromasia Moderate; MCHC 31.4 g/dL (31.0-37.0); MCV 95.5 fL (80.0-100.0); Macrocytosis Moderate; Mean Platelet Volume 10.1; Platelet Count 123 k/uL (150-450); Poikilocytosis Marked; RBC 2.81 m/uL (3.80-5.40)
[2022-04-19 05:38] LABS: Calcium 7.2 mg/dL (8.4-10.2); Potassium 3.6 mmol/L (3.5-5.1)
[2022-04-19] MEDS ORDERED: POTASSIUM BICARBONATE/CIT AC 20 MEQ TABLET.EFF NG-TUBE SCH ×4 (06:00→14:00)
[2022-04-19 06:04] LABS: RDW 25.9 % (11.5-15.5)
[2022-04-19] MEDS: LEVOTHYROXINE 88 MCG TAB PO SCH (06:05)
[2022-04-19] MEDS: ACETAMINOPHEN TAB 500 MG TAB PO SCH ×4 (06:05→23:38)
[2022-04-19 06:14] LABS: Glucose,Whole Blood 150 mg/dL (70-110)
[2022-04-19] MEDS: MIDODRINE 5 MG TAB PO SCH ×3 (06:15→16:18)
--- NOTE | 2022-04-19 07:20 | P.PN ---
Subjective Progress Note Date: 04/19/22 Principal diagnosis: Typical atrial flutter Patient is pleasant 71-year-old female with history of persistent typical atrial flutter, paroxysmal atrial fibrillation, hypertension, hyperlipidemia. She follows with Dr. Leger. We are consulted for A flutter. She presented for [facility] back [facility]. She underwent back surgery with a long procedure. She was noted to be in atrial flutter throughout the case. After that she became bradycardic and she did have an episode appeared to be brief of severe bradycardia/cardiac arrest and she resuscitated. 03/08/2022 The patient was seen and evaluated this morning. She seems to be hypotensive now require norepinephrine. She remains in atrial flutter with overall controlled heart rate. She is on Cardizem. I'm going to stop the Cardizem and start the patient on amiodarone was bolus and drip giving the low blood pressure requiring vasopressors. Beside that continued oral anticoagulation. Follow-up with the patient. March 092021 The patient was seen and evaluated this morning. She remains in atrial flutter with controlled heart rate. Oral anticoagulation is on hold at this point in the light of bleeding. The hemoglobin this morning is below 7. There is a possibility that the patient might need another back surgery. March 102021 The patient was seen and evaluated this morning beach she underwent another surgery yesterday. She seems to be stable at this point and she is on very small dose of norepinephrine which point to be weaned later on today. Otherwise today she is in normal sinus mechanism. Hemoglobin is a stable. March 112021 The patient was seen and evaluated this morning. She is extubated. She is hemodynamic stable beside being tachycardic and underlying rhythm seems to be A. fib/atrial flutter. The pressure is soft. She just went of vasopressors. I'm going to start the patient on amiodarone IV and switch her to amiodarone by mouth down the line. Hold on any anticoagulation at this point in the light of history of bleeding. Her hemoglobin this morning is 8.9. On examination she seems to be hypervolemic with bilateral lower except his edema March 122021 The patient was seen and evaluated this morning. She remains a stable overall. She was extubated yesterday. She stated "I feel better". Currently she is in atrial fibrillation with overall controlled heart rate. Currently she is on amiodarone IV which I'm going to stop and start amiodarone by mouth. Anticoagulation is on hold right now in the light of recent history of bleeding and low hemoglobin required blood transfusion. Her hemoglobin this morning is 8.9. On examination she seems to be overall euvolemic with mild bilateral lower except his edema. 04/17/2022 The patient was seen this morning. She remains in atrial flutter with overall controlled heart rate on the current dose of verapamil as well as beta nic. I am going to DC verapamil and increase the dose of beta nic giving the cardiomyopathy situation. Her hemoglobin remained stable. Her GFR remains stable as well. She is not on any anticoagulation in the light of history of gastrointestinal bleeding. The chest x-ray showed small bilateral pleural effusion. She continues to be on IV Lasix April 182022 The patient was seen and evaluated this morning. She remains in atrial flutter/atrial fibrillation with controlled heart rate. I stopped the verapamil yesterday and increase the dose of beta nic and she has been tolerating that. She is not on anticoagulation in the light of gastrointestinal bleeding history. From the cardiac standpoint of view, we'll continue the current medical regimen beach she still in volume overload and currently she is on Lasix IV which I would continue. 04/19/2022 The patient was seen and evaluated this morning. She remains hemodynamically stable and not on any vasopressors at this point. She remains in atrial fibrillation/atrial flutter with overall controlled heart rate on the current medical regimen including current dose of beta nic. She seems to be hypervolemic on examination was bilateral rhonchi and bilateral lower extremities edema. Currently she is on Lasix IV. Creatinine continues to be stable. Objective - Vital Signs Vital signs: Vital Signs Temp 97.8 F 04/19/22 04:00 Pulse 96 04/19/22 07:00 Resp 14 04/19/22 07:00 BP 105/63 04/19/22 07:00 Pulse Ox 97 04/19/22 07:00 FiO2 40 04/16/22 14:00 Intake & Output 04/18/22 04/19/22 04/19/22 18:59 06:59 18:59 Intake Total 1212.5 503 23 Output Total 1115 1485 30 Balance 97.5 -982 -7 Weight 132 kg Intake: IV 312.5 383 23 Anidulafungin 100 mg In 100 Sodium Chloride 0.9% 100 ml @ 84 mls/hr IVPB DAILY [facility] Rx#:[id number] Cefepime 1 gm In Sodium 62.5 50 Chloride 0.9% 50 ml @ 12. 5 mls/hr IVPB Q8HR [facility] Rx #:[id number] Cefepime 2 gm In Sodium 100 Chloride 0.9% 100 ml @ 25 mls/hr IVPB Q12H [facility] Rx# :[id number] Pressure Bag 33 3 Sodium Chloride 0.9% 1, 150 200 20 000 ml @ 20 mls/hr IV . Q24H [facility] Rx#:[id number] Intake, IV Titration 50 Amount DAPTOmycin 360 mg In 50 Sodium Chloride 0.9% 50 ml @ 100 mls/hr IVPB Q24HR [facility] Rx#:[id number] Oral 250 Tube Feeding 540 120 Other 60 Output: Urine 1115 1485 30 Other: Voiding Method Indwelling Catheter Indwelling Catheter ABP, PAP, CO, CI - Last Documented Arterial Blood Pressure 222/214 - Constitutional General appearance: Present: no acute distress - Respiratory Respiratory: bilateral: rhonchi - Cardiovascular Rhythm: regular - Labs CBC & Chem 7: 04/19/22 05:15 04/19/22 05:15 Labs: Abnormal Lab Results - Last 24 Hours (Table) 04/18/22 04/18/22 04/18/22 Range/Units 08:19 08:19 11:50 WBC 16.8 H (3.8-10.6) k/uL RBC 2.82 L (3.80-5.40) m/uL Hgb 8.5 L (11.4-16.0) gm/dL Hct 26.2 L (34.0-46.0) % RDW 24.5 H (11.5-15.5) % Plt Count 116 L (150-450) k/uL Neutrophils # 13.8 H (1.3-7.7) k/uL Sodium (137-145) mmol/L Potassium 3.0 L (3.5-5.1) mmol/L Chloride 117 H (98-107) mmol/L Carbon Dioxide (22-30) mmol/L BUN 28 H (7-17) mg/dL Glucose 128 H (74-99) mg/dL POC Glucose (mg/dL) 178 H (70-110) mg/dL Calcium 7.2 L (8.4-10.2) mg/dL 04/18/22 04/18/22 04/18/22 Range/Units 18:19 18:27 23:51 WBC (3.8-10.6) k/uL RBC (3.80-5.40) m/uL Hgb (11.4-16.0) gm/dL Hct (34.0-46.0) % RDW (11.5-15.5) % Plt Count (150-450) k/uL Neutrophils # (1.3-7.7) k/uL Sodium (137-145) mmol/L Potassium 3.3 L (3.5-5.1) mmol/L Chloride (98-107) mmol/L Carbon Dioxide (22-30) mmol/L BUN (7-17) mg/dL Glucose (74-99) mg/dL POC Glucose (mg/dL) 164 H 157 H (70-110) mg/dL Calcium (8.4-10.2) mg/dL 04/19/22 04/19/22 04/19/22 Range/Units 05:15 05:15 06:12 WBC 17.9 H (3.8-10.6) k/uL RBC 2.81 L (3.80-5.40) m/uL Hgb 8.4 L (11.4-16.0) gm/dL Hct 26.8 L (34.0-46.0) % RDW 25.9 H (11.5-15.5) % Plt Count 123 L (150-450) k/uL Neutrophils # (1.3-7.7) k/uL Sodium 146 H (137-145) mmol/L Potassium (3.5-5.1) mmol/L Chloride 114 H (98-107) mmol/L Carbon Dioxide 33 H (22-30) mmol/L BUN 36 H (7-17) mg/dL Glucose 129 H (74-99) mg/dL POC Glucose (mg/dL) 150 H (70-110) mg/dL Calcium 7.2 L (8.4-10.2) mg/dL Microbiology - Last 24 Hours (Table) 04/14/22 08:45 Blood Culture - Preliminary Blood No Growth after 96 hours 04/14/22 12:00 Gram Stain - Preliminary Back Wound Culture - Preliminary 04/14/22 16:17 Gram Stain - Preliminary Back Wound Culture - Preliminary Assessment and Plan Assessment: ASSESSMENT Status post back surgery Persistent atrial fibrillation Hypertension Hyperlipidemia Cardiomyopathy, ischemic vs non-ischemic Electrolytes imbalance which has improved Back pain History of GI bleeding PLAN Continue the current medical regimen Continue Lasix IV the patient still in volume overload Continue monitor the kidney function and electrolytes Follow-up with the patient
[2022-04-19] MEDS: ENOXAPARIN 40 MG/0.4 ML SYRINGE SQ SCH (08:11)
[2022-04-19] MEDS: AMIODARONE 200 MG TAB PO SCH (08:11)
[2022-04-19] MEDS: METOPROLOL TARTRATE 50 MG TAB PO SCH ×2 (08:11→21:01)
[2022-04-19] MEDS: MAGNESIUM OXIDE 400 MG TAB PO SCH (08:11)
[2022-04-19] MEDS: GABAPENTIN 400 MG CAP PO SCH ×3 (08:11→21:05)
[2022-04-19] MEDS: ATORVASTATIN 20 MG TAB PO SCH (08:11)
[2022-04-19] MEDS: PANTOPRAZOLE 40 MG/10 ML VIAL IVP SCH ×2 (08:11→21:06)
[2022-04-19] MEDS: DULoxetine HCL 60 MG CAPSULE.DR PO SCH (08:12)
[2022-04-19] MEDS: FUROSEMIDE 10 MG/ML 4 ML VIAL IV SCH ×3 (08:12→23:37)
--- NOTE | 2022-04-19 08:25 | P.PN ---
Subjective Progress Note Date: 04/19/22 Principal diagnosis: Lumbar spondylosis adjacent segment disease status post L2-L4 posterior fusion with proximal junctional failure neurogenic claudication Patient seen and examined this morning. Patient is currently resting in bed, positioned with a body wedge. Patient is currently on 2L O2 via NC. Bilateral ronchi present. Patient is lethargic this morning. Surgical dressing is intact, this will be changed later today. Nasogastric tube present, patient is currently at goal of 60 mL/hr. Patient is tolerating well. 4+ pitting edema to bilateral lower extremities. 3+ edema to bilateral upper extremities. Patient is currently on Lasix. Warren catheter is patent. Fecal management system is present. Continue to encourage patient to participate with PT/OT as tolerated. Patient has been afebrile, denies nausea/vomiting, or chest pain. Objective - Vital Signs Vital signs: Vital Signs Temp 97.8 F 04/19/22 04:00 Pulse 93 04/19/22 08:00 Resp 13 04/19/22 08:00 BP 112/57 04/19/22 08:00 Pulse Ox 97 04/19/22 08:00 FiO2 40 04/16/22 14:00 Intake & Output 04/18/22 04/19/22 04/19/22 18:59 06:59 18:59 Intake Total 1212.5 503 108.5 Output Total 1115 1485 65 Balance 97.5 -982 43.5 Weight 132 kg Intake: IV 312.5 383 36 Anidulafungin 100 mg In 100 Sodium Chloride 0.9% 100 ml @ 84 mls/hr IVPB DAILY [facility] Rx#:[id number] Cefepime 1 gm In Sodium 62.5 50 Chloride 0.9% 50 ml @ 12. 5 mls/hr IVPB Q8HR [facility] Rx #:[id number] Cefepime 2 gm In Sodium 100 Chloride 0.9% 100 ml @ 25 mls/hr IVPB Q12H [facility] Rx# :[id number] Pressure Bag 33 6 Sodium Chloride 0.9% 1, 150 200 30 000 ml @ 20 mls/hr IV . Q24H [facility] Rx#:[id number] Intake, IV Titration 50 12.5 Amount Cefepime 1 gm In Sodium 12.5 Chloride 0.9% 50 ml @ 12. 5 mls/hr IVPB Q8HR [facility] Rx #:[id number] DAPTOmycin 360 mg In 50 Sodium Chloride 0.9% 50 ml @ 100 mls/hr IVPB Q24HR [facility] Rx#:[id number] Oral 250 Tube Feeding 540 120 60 Other 60 Output: Urine 1115 1485 65 Other: Voiding Method Indwelling Catheter Indwelling Catheter ABP, PAP, CO, CI - Last Documented Arterial Blood Pressure 222/214 - Exam Physical Examination General: The patient is awake and alert, in no acute distress Skin: Skin is warm and dry with no obvious rashes or lesions. Hairy patches absent, no dorsal skin dimples, no cafe au lait spots. Surgical Incision to david mbar region, sutures are intact. Dressing changed this morning. Eye: Pupils are equal, round and reactive to light, extra-ocular movements are intact; there is normal conjunctiva bilaterally. Neck: The neck is supple, there is no tenderness and ROM intact. Cardiovascular: A-fib, Patient presents with 4+ pitting edema to BLE, 3+ pitting edema to BUE Respiratory: Diminished bilateral lung bases to auscultation, respirations are non-labored, breath sounds are equal, 2LNC Gastrointestinal: Soft, non-distended, non-tender abdomen, FMS patent, NG tube placed for nutrition, Patient currently at goal, which is 60ml/hr. Back: There is no tenderness to palpation in the midline, paralumbar, parathoracic or buttocks region. There is no obvious deformity . Musculoskeletal: ROM limited secondary to pain and stiffness from surgical procedure. Muscle strength in all major muscle groups of bilateral upper extremities 4-/5, bilateral lower extremities 3-/5. Neurological: CN 2-12 intact. There are no obvious motor or sensory deficits. Movement and coordination equal and intact. Sensory exam to light touch intact C5-T1 and intact from L2-S1. Reflexes 2/4 in bilateral upper and lower ext remities. Negative Hoffmans, babinski, and clonus signs. Psychiatric: Cooperative, appropriate mood & affect, normal judgment. - Labs CBC & Chem 7: 04/19/22 05:15 04/19/22 05:15 Labs: Abnormal Lab Results - Last 24 Hours (Table) 04/18/22 04/18/22 04/18/22 Range/Units 08:19 08:19 11:50 WBC 16.8 H (3.8-10.6) k/uL RBC 2.82 L (3.80-5.40) m/uL Hgb 8.5 L (11.4-16.0) gm/dL Hct 26.2 L (34.0-46.0) % RDW 24.5 H (11.5-15.5) % Plt Count 116 L (150-450) k/uL Neutrophils # 13.8 H (1.3-7.7) k/uL Sodium (137-145) mmol/L Potassium 3.0 L (3.5-5.1) mmol/L Chloride 117 H (98-107) mmol/L Carbon Dioxide (22-30) mmol/L BUN 28 H (7-17) mg/dL Glucose 128 H (74-99) mg/dL POC Glucose (mg/dL) 178 H (70-110) mg/dL Calcium 7.2 L (8.4-10.2) mg/dL 04/18/22 04/18/22 04/18/22 Range/Units 18:19 18:27 23:51 WBC (3.8-10.6) k/uL RBC (3.80-5.40) m/uL Hgb (11.4-16.0) gm/dL Hct (34.0-46.0) % RDW (11.5-15.5) % Plt Count (150-450) k/uL Neutrophils # (1.3-7.7) k/uL Sodium (137-145) mmol/L Potassium 3.3 L (3.5-5.1) mmol/L Chloride (98-107) mmol/L Carbon Dioxide (22-30) mmol/L BUN (7-17) mg/dL Glucose (74-99) mg/dL POC Glucose (mg/dL) 164 H 157 H (70-110) mg/dL Calcium (8.4-10.2) mg/dL 04/19/22 04/19/22 04/19/22 Range/Units 05:15 05:15 06:12 WBC 17.9 H (3.8-10.6) k/uL RBC 2.81 L (3.80-5.40) m/uL Hgb 8.4 L (11.4-16.0) gm/dL Hct 26.8 L (34.0-46.0) % RDW 25.9 H (11.5-15.5) % Plt Count 123 L (150-450) k/uL Neutrophils # (1.3-7.7) k/uL Sodium 146 H (137-145) mmol/L Potassium (3.5-5.1) mmol/L Chloride 114 H (98-107) mmol/L Carbon Dioxide 33 H (22-30) mmol/L BUN 36 H (7-17) mg/dL Glucose 129 H (74-99) mg/dL POC Glucose (mg/dL) 150 H (70-110) mg/dL Calcium 7.2 L (8.4-10.2) mg/dL Microbiology - Last 24 Hours (Table) 04/14/22 08:45 Blood Culture - Preliminary Blood No Growth after 96 hours 04/14/22 12:00 Gram Stain - Preliminary Back Wound Culture - Preliminary 04/14/22 16:17 Gram Stain - Preliminary Back Wound Culture - Preliminary Assessment and Plan Assessment: Lumbar wound dehiscence s/p [id number] decompression and fusion with complex perioperative and post operative course - Postoperative day #5 status post Irrigation and excisional debridement of lumbar spine [id number] cm wound, complex closure. Plan: -Appreciate java developer consultant and team management PCC and medicine -Appreciate cardiothoracic, Gen. surgery, nephrology, ID evaluations -Continue Activity: as medically tolerated, patient needs to be transferred to a room with a zulema lift. -PT / OT DAILY work on increased strength in LE quads, hammys, etc for standing -Cont Abx for duration of stay -Pain control: Adequate today. Watch pressures and VS. -Meplex pads on sacral region with barrier cream. Cont turn. Sit at different angles. -Meds: reviewed -Trend labs, trend SED and CRP for markers -GI ppx: senna, Miralax, -Continue with FMS per GI. -Continue Warren changed per protocol -Cont with FBS -DVT PPX: Mechanical only -Hygiene: Maintain dressing clean and dry. Meticulous cleaning after BMs away from incision site patient has had several instances on the floor where she was covered and bowel movement as well as urine up to her shoulders on her back. The wound needs to be kept meticulously clean. -Encourage IS 10x/hr -Patient is cleared from Orthopedic standpoint for discharge to rehab when medically stable. *I reviewed and discussed this case with my attending Dr. Alexander, whom has reviewed this chart and films and is in agreement with assessment and plan of care as outlined above. I have personally seen and examined the patient, performed the documentation and the assessment and plan as written. Number of minutes spent on the visit: [10m ].
[2022-04-19] MEDS: buPROPion 75 MG TAB PO SCH ×2 (08:26→12:52)
[2022-04-19] MEDS: CEFEPIME 1 GM in SODIUM CHLORIDE 0.9% 50 ML IVPB SCH (08:26)
[2022-04-19] MEDS: ANIDULAFUNGIN 100 MG in SODIUM CHLORIDE 0.9% 100 ML IVPB SCH (09:03)
[2022-04-19] MEDS: SIMETHICONE 40 MG/0.6 ML DROPS 2,000 MG/30 ML BOTTLE PO SCH ×4 (09:06→21:07)
[2022-04-19] MEDS: MAG HYDROX/AL HYDROX/SIMETH 30 ML, diphenhydrAMINE ELIXIR 75 MG, LIDOCAINE VISCOUS 2% 3... PO SCH ×9 (09:25→21:07)
--- NOTE | 2022-04-19 10:52 | P.PN ---
Subjective Progress Note Date: 04/19/22 The patient is seen today 04/17/2022 in follow-up in the intensive care unit. She is status post the T10 to pelvis decompression and fusion on 02/24/2022 with complex perioperative and postoperative course. She had a wound dehiscence and a possible CSF leak on 03/09/2022 and had undergone irrigation and debridement of thoracal lumbar and pelvic skin with dural repair and patch graft and L1. She had undergone a third surgery on 04/14/2022 for lumbar wound dehiscence. Dr. Alexander and performed irrigation and excisional debridement of lumbar spine 30 x 20 x 15 cm with a complex wound closure and a 4-layer fashion. She was initially on the mechanical ventilator and subsequently extubated yesterday 04/16/2022. Currently she is resting fairly comfortably in bed. She is on oxygen at 2 L/m per nasal cannula with O2 saturations in the 90s. Chest x-ray reveals small bilateral pleural effusions and atelectasis.. Left-sided PICC line is in place. She has normal saline at 20 mL per hour. Her norepinephrine has been off for approximately 48 hours. She is being nourished via nasogastric tube with vital AF at 30 mL per hour. She is status post 13 units of packed red blood cells this admission, 2 units of platelets. White count 13.5. Hemoglobin 8.3. Platelets 113. Sodium 145. Potassium 2.7. Chloride 117. BUN 25. Creatinine 0.70. Glucose 141. She is receiving Lasix 40 mg IV every 8 hours. Currently in a -1.4 L balance. Wound cultures are pending. Sputum culture is pending. Previous wound culture from 03/26/2022 was positive for pseudomonas aeruginosa, Enterococcus faecalis and Patsy. She is maintained on Eraxis, cefepime and vancomycin. The patient is seen today 04/18/2022 in follow-up in the intensive care unit. She is currently resting comfortably in bed. Awake and alert in no acute distress. She is maintaining O2 saturations in the 90s on 2 L/m per nasal cannula. Nasogastric tube remains in place. Speech is evaluating her swallowing abilities. She has 0.9 normal sinus KVO. She is continued on antibiotics in the form of cefepime, daptomycin along with Eraxis. Her dressing was changed by orthopedics today and stated the incision is clean dry well approximated. Just a small amount of serosanguineous drainage was noted. She continues to work with physical therapy. She is now in a room with a Ninfa lift for assistance. Follow-up on wound cultures from 04/14/2022 are pending. Sputum culture from 04/15/2022 revealed no growth. White count 16.8. Hemoglobin 8.5. Platelets 116. Sodium 145. Potassium 3.0. BUN 28. Creatinine 0.82. Glucose 128. She is currently in a -1.3 L balance. Remains on Lasix 40 mg IV every 8 hours. She is continued on Lovenox for DVT prophylaxis. Encouraged regarding the use of the incentive spirometer and cough and deep breathing exercises. Being nourished with vital AF and tolerating tube feedings. The patient is seen today 04/19/2022 in follow-up in the intensive care unit. She remains awake and alert. She is maintaining O2 saturations in the 90s on 2 L/m per nasal cannula. She has normal saline at KVO. She is continued on antibiotics and warm and daptomycin, cefepime and Eraxis. She is maintained on IV diuretics in the form of Lasix 40 mg every 8 hours. Currently in a -885 mL balance. Follow up wound cultures of her back from 04/14/2022 reveal no growth. Sputum culture revealed no growth. White count 17.9. Hemoglobin 8.4. Platelets 123. Sodium 146. Chloride 114. Bicarb 33. BUN 36. Creatinine 0.87. Glucose 129. She has been very slow to progress. This is her 54th day in the hospital. She had been somewhat depressed and stating she wanted to stop all of the treatment. She was seen by psychiatry and placed on Wellbutrin. Her family is encouraging her to continue with treatment. She continues with inadequate swallow function. She is continued being nourished with vital AF via nasogastric tube. She also may require PEG tube placement. She may be a cand idate for [facility]. Objective - Vital Signs Vital signs: Vital Signs Temp 97.8 F 04/19/22 04:00 Pulse 93 04/19/22 08:00 Resp 13 04/19/22 08:00 BP 112/57 04/19/22 08:00 Pulse Ox 97 04/19/22 08:00 FiO2 40 04/16/22 14:00 Intake & Output 04/18/22 04/19/22 04/19/22 18:59 06:59 18:59 Intake Total 1212.5 503 285.5 Output Total 1115 1485 265 Balance 97.5 -982 20.5 Weight 132 kg 132 kg Intake: IV 312.5 383 123 Anidulafungin 100 mg In 100 84 Sodium Chloride 0.9% 100 ml @ 84 mls/hr IVPB DAILY [facility] Rx#:[id number] Cefepime 1 gm In Sodium 62.5 50 Chloride 0.9% 50 ml @ 12. 5 mls/hr IVPB Q8HR [facility] Rx #:[id number] Cefepime 2 gm In Sodium 100 Chloride 0.9% 100 ml @ 25 mls/hr IVPB Q12H [facility] Rx# :[id number] Pressure Bag 33 9 Sodium Chloride 0.9% 1, 150 200 30 000 ml @ 20 mls/hr IV . Q24H [facility] Rx#:[id number] Intake, IV Titration 50 12.5 Amount Cefepime 1 gm In Sodium 12.5 Chloride 0.9% 50 ml @ 12. 5 mls/hr IVPB Q8HR [facility] Rx #:[id number] DAPTOmycin 360 mg In 50 Sodium Chloride 0.9% 50 ml @ 100 mls/hr IVPB Q24HR [facility] Rx#:[id number] Oral 250 Tube Feeding 540 120 120 Other 60 30 Output: Urine 1115 1485 265 Other: Voiding Method Indwelling Catheter Indwelling Catheter ABP, PAP, CO, CI - Last Documented Arterial Blood Pressure 222/214 - Exam GENERAL EXAM: Awake, morbidly obese, 71-year-old female patient, on 2 L nasal cannula, fairly comfortable in no apparent distress. HEAD: Normocephalic. EYES: Normal reaction of pupils, equal size. NOSE: Naso gastric tube in place. Clear with pink turbinates. THROAT: No erythema or exudates. NECK: No masses, no JVD. CHEST: Healing large hematoma and edema of the right breast LUNGS: Equal air entry with crackles in the posterior bases. Diminished right base. CVS: S1 and S2 normal with no audible murmur, irregular rhythm. ABDOMEN: Obese, unable to appreciate organomegaly, normal bowel sounds, no guarding or rigidity. SPINE: Surgical dressing dry and intact. SKIN: Old ecchymosis noted over the right breast and chest area. CENTRAL NERVOUS SYSTEM: No focal deficits, tone is normal in all 4 extremities. EXTREMITIES: There is 1-2+ peripheral edema. No clubbing, no cyanosis. Peripheral pulses are intact. - Labs CBC & Chem 7: 04/19/22 05:15 04/19/22 05:15 Labs: Abnormal Lab Results - Last 24 Hours (Table) 04/18/22 04/18/22 04/18/22 Range/Units 11:50 18:19 18:27 WBC (3.8-10.6) k/uL RBC (3.80-5.40) m/uL Hgb (11.4-16.0) gm/dL Hct (34.0-46.0) % RDW (11.5-15.5) % Plt Count (150-450) k/uL Sodium (137-145) mmol/L Potassium 3.3 L (3.5-5.1) mmol/L Chloride (98-107) mmol/L Carbon Dioxide (22-30) mmol/L BUN (7-17) mg/dL Glucose (74-99) mg/dL POC Glucose (mg/dL) 178 H 164 H (70-110) mg/dL Calcium (8.4-10.2) mg/dL 04/18/22 04/19/22 04/19/22 Range/Units 23:51 05:15 05:15 WBC 17.9 H (3.8-10.6) k/uL RBC 2.81 L (3.80-5.40) m/uL Hgb 8.4 L (11.4-16.0) gm/dL Hct 26.8 L (34.0-46.0) % RDW 25.9 H (11.5-15.5) % Plt Count 123 L (150-450) k/uL Sodium 146 H (137-145) mmol/L Potassium (3.5-5.1) mmol/L Chloride 114 H (98-107) mmol/L Carbon Dioxide 33 H (22-30) mmol/L BUN 36 H (7-17) mg/dL Glucose 129 H (74-99) mg/dL POC Glucose (mg/dL) 157 H (70-110) mg/dL Calcium 7.2 L (8.4-10.2) mg/dL 04/19/22 Range/Units 06:12 WBC (3.8-10.6) k/uL RBC (3.80-5.40) m/uL Hgb (11.4-16.0) gm/dL Hct (34.0-46.0) % RDW (11.5-15.5) % Plt Count (150-450) k/uL Sodium (137-145) mmol/L Potassium (3.5-5.1) mmol/L Chloride (98-107) mmol/L Carbon Dioxide (22-30) mmol/L BUN (7-17) mg/dL Glucose (74-99) mg/dL POC Glucose (mg/dL) 150 H (70-110) mg/dL Calcium (8.4-10.2) mg/dL Microbiology - Last 24 Hours (Table) 04/14/22 12:00 Gram Stain - Final Back Wound Culture - Final 04/14/22 16:17 Gram Stain - Final Back Wound Culture - Final 04/14/22 08:45 Blood Culture - Preliminary Blood No Growth after 96 hours Assessment and Plan Assessment: Acute lumbar wound dehiscence, status post irrigation and excisional debridement of the lumbar spine 30 x 20 x 15 cm with complex wound closure for layered fashion on 04/14/2022, initially on the mechanical ventilator, extubated 04/16/2022 Lumbar decompression/fusion 02/24/2022, developed some foul-smelling serous sanguinous drainage. On 03/09/2022 she did require exploration and washout with dural repairs due to falls. Acute sepsis with hypotension secondary to urinary tract infection with Enterobacter, improved and off norepinephrine. Bacteremia secondary to wound infection positive for pseudomonas aeruginosa, Enterococcus faecalis, Patsy albicans from 03/26/2022. Follow-up cultures from 04/14/2022 reveal no growth. Currently on Eraxis, daptomycin, cefepime, Atrial flutter fibrillation/flutter with a rapid ventricular currently in sinus rhythm Dysphagia with continued inadequate swallow function. NG tube remains in place. Being nourished with vital AF. May require PEG tube placement. Acute renal failure, recovered, current creatinine 0.87 Hypokalemia, current potassium 3.6 Hyponatremia, recovered current sodium 146 Leukocytosis, current white count 17.9 Acute anemia with a hemoglobin dropped to 5.4. The patient had developed a large right sided chest wall/breast hematoma suspect secondary to fall on 03/06/2022. The patient has now received 13 units of packed red blood cells and her hemoglobin this morning was 8.4. Cardiac arrest, brief pulseless electrical activity encountered in the operating room 02/24/2022 exact etiology is not clear. Acute hypoxic/hypercapnic respiratory failure secondary to cardiac arrest/pulseless electrical activity, patient was extubated Morbid obesity. BMI of 45.6 History of right hemidiaphragm paralysis History of right-sided breast cancer, previous lumpectomy Chronic atrial fibrillation/flutter, anticoagulated with Xarelto currently on hold due to GI bleed, anemia and recurrent surgery Dyslipidemia Benign essential hypertension Acute depression secondary to above, seen by psychiatry, initiated on Wellbutrin Poor overall functional performance based on the above-mentioned multiple comorbidities and may require long-term acute care facility Plan: The patient was seen and evaluated Medications and labs reviewed Currently on 2 L nasal cannula Titrate the FiO2 as tolerated Continued on Eraxis, cefepime, daptomycin Continues with inadequate swallow function Will require PEG tube placement Being nourished with vital AF via nasogastric tube Lovenox for DVT prophylaxis Xarelto remains on hold DO NOT RESUSCITATE/DO NOT INTUBATE CODE STATUS Prognosis remains quite guarded Consult to [facility] We will continue to follow I have personally seen and examined the patient, performed the documentation and the assessment and plan as written. Number of minutes spent on the visit: 10.
--- NOTE | 2022-04-19 11:12 | P.PN ---
Subjective Progress Note Date: 04/19/22 Principal diagnosis: cardiac arrest Hospital Course: Patient is a 71 yo CF with a hx of A fib s/p ablation, GERD, hypertension, dyslipidemia, and right diaphragmatic paralysis who presented for T10 to Pelvis decompression and fusion with revision. Course complicated by significant blood loss and cardiac arrest. During the case she developed A. fib with RVR and then quickly transitioned into bradycardia with a low end-tidal CO2. Total down time was less than 5 minutes. Patient subsequently admitted to the ICU. She was extubated on 02/25. She continued to do well but struggled with pain. She was downgraded from ICU on 03/03. On 03/06/22 patient was noted to have a significant drop in hemoglobin from 10.0 down to 7.5 and upon reevaluation on 03/07 was found to have hemoglobin of 5.4, patient required multiple transfusions. She underwent a CT abdomen and pelvis and was found to have a large right chest hematoma dilated small bowel concerning for ileus. Patient was evaluated by cardiothoracic surgery and they recommended conservative management. On 03/07, patient was noted to be hypotensive with elevated WBC count of 42.3, with worsening renal function and hyperkalamia. She was transferred back to the ICU for septic shock. Blood and urine cultures were obtained and positive for Enterobacter. Infectious disease was consulted. Patient remained on IV antibiotics. Patient was later weaned off of vasopressors and again transferred out of the ICU. Patient was started on Lasix for treatment of acute on chronic systolic heart failure with EF of 35-40%. Amiodarone and metoprolol for atrial fibrillation with RVR sodium bicarb for treatment of metabolic acidosis. Pt's Xarelto remain on hold at that time. Patient was evaluated by PMR and was not a candidate for inpatient rehab. She has been cleared by orthopedic surgery to start working with physical therapy. On 03/26/22 patient was again found to have elevating leukocytosis and repeat Wound cultures were obtained. Wound cultures were positive for pseudomonas aeruginosa, enterococcus fasciculus, and Patsy albicans. Patient was continued on IV antibiotics. Overnight on 03/28/22 patient again developed episodes of melena and at that time Dr. Arce, general surgeon was re-consulted. CT abdomen and pelvis revealing bilateral hydronephrosis unable to rule out obstructive etiology, concerns for fecal impaction, and persistent previously known right anterior chest wall hematoma. General surgery following and reevaluated patient secondary to concerns of fecal impaction and started patient on bowel regimen. Wiley catheter was inserted secondary to bilateral hydronephrosis and patient was evaluated by urologist recommending continuation of Wiley catheter as bilateral hydronephrosis is believed to be resulting secondary to urinary retention. Patient had episodes of hematochezia along with large blood clot and was transferred back to the ICU. Had bedside manual disimpaction with general surgery. Also has a posterior anal fissure could likely cause of current bleeding. Hemoglobin continued to down trend. Requiring further blood transfusions. Plan was to transfer the patient to an outside facility for GI services. However, patient remained hemodynamically stable, transfer was canceled. Patient returned to the OR on 04/14 for revision and washout, slight was dehisced but did not appear to be infected. OR cultures still pending. Due to prolonged hospitalization, patient has become extremely depressed and considering hospice care. Patient has been clinically improving since most recent surgery. Plan for optimizing nutrition with likely PEG tube, if patient agreeable. Currently, the plan is to optimize her nutrition and sent patient to rehab. If patient fails rehab, family and patient will consider hospice care. Subjective: Patient seen and examined at bedside. No acute events overnight. Patient claims that she feels "hopeful". She is still unsure about PEG tube. Currently has a rectal tube as well as wiley catheter in place. Pertinent positives and negatives as discussed above, a complete review of systems was performed and all other systems are negative. Vitals Signs Reviewed. General: no acute distress, appears at stated age, Derm: warm, dry. Patient in the supine position, Postsurgical dressing not able to examine Head: atraumatic, normocephalic, symmetric Eyes: EOMI, no lid lag, anicteric sclera Mouth: no lip lesion, moist membranes moist Cardiovascular: S1S2 regular, tachycardic, no murmur Lungs: Respirations even, regular, and unlabored on room air. Lungs clear to auscultation bilaterally , 2 L Ext: no gross muscle atrophy, 2+ pitting edema, no contractures Abd: Wiley catheter in place. Obese. Non tender to palpation., NG tube in place Neuro: Moving all 4 extremities Psych:: Patient with depressed affect, she is pleasant and cooperative. Assessment and Plan: Severe protein calorie malnutrition Poor nutritional intake Anasarca Dysphagia -NG tube in place -Possible PEG tube placement tomorrow or Sunday, if patient agrees T10 to pelvis decompression with fusion Post-op pain -Management per primary admitting Orthopedic surgery team including DVT prophylaxis, pain management, wound/dressing care, weightbearing, and PT/OT . -Had a repeat washout and revision on 04/14 has slight was dehisced but did not appear infected. OR cultures still pending. Persistent leukocytosis Patsy UTI -OR cultures from 04/14, no growth to date -ID following -Currently on cefepime, daptomycin, and Eraxis Major depressive disorder -Psychiatry consulted -Currently patient is on Remeron 15 mg, Cymbalta 60 mg, Wellbutrin 150 mg GI bleeding - currently hemoglobin stable, HDS -Continue IV Protonix Atrial tachycardia/fibrillation Acute on chronic systolic heart failure -On amiodarone, metoprolol and IV Lasix -Cardiology following Recent medical problems this hospitalization: Cardiac arrest Acute blood loss anemia Right breast hematoma History of right Diaphragmatic paralysis Septic shock Enterobacter UTI with bacteremia Bilateral hydronephrosis Urinary retention Prerenal azotemia Hyponatremia Hypokalemia Hypokalemia Metabolic acidosis Ischemic hepatitis Acute abdominal pain Fecal impaction Posterior anal fissure Thank you for allowing us to participate in the care of this pleasant patient. Do not hesitate to contact us with questions. Someone can be reached from the [facility] hospitalist group all hours of the day at [phone] or via [employer]. Objective - Vital Signs Vital signs: Vital Signs Temp 97.8 F 04/19/22 04:00 Pulse 93 04/19/22 08:00 Resp 13 04/19/22 08:00 BP 112/57 04/19/22 08:00 Pulse Ox 97 04/19/22 08:00 FiO2 40 04/16/22 14:00 Intake & Output 04/18/22 04/19/22 04/19/22 18:59 06:59 18:59 Intake Total 1212.5 503 285.5 Output Total 1115 1485 265 Balance 97.5 -982 20.5 Weight 132 kg 132 kg Intake: IV 312.5 383 123 Anidulafungin 100 mg In 100 84 Sodium Chloride 0.9% 100 ml @ 84 mls/hr IVPB DAILY [facility] Rx#:[id number] Cefepime 1 gm In Sodium 62.5 50 Chloride 0.9% 50 ml @ 12. 5 mls/hr IVPB Q8HR [facility] Rx #:[id number] Cefepime 2 gm In Sodium 100 Chloride 0.9% 100 ml @ 25 mls/hr IVPB Q12H [facility] Rx# :[id number] Pressure Bag 33 9 Sodium Chloride 0.9% 1, 150 200 30 000 ml @ 20 mls/hr IV . Q24H [facility] Rx#:[id number] Intake, IV Titration 50 12.5 Amount Cefepime 1 gm In Sodium 12.5 Chloride 0.9% 50 ml @ 12. 5 mls/hr IVPB Q8HR [facility] Rx #:[id number] DAPTOmycin 360 mg In 50 Sodium Chloride 0.9% 50 ml @ 100 mls/hr IVPB Q24HR [facility] Rx#:[id number] Oral 250 Tube Feeding 540 120 120 Other 60 30 Output: Urine 1115 1485 265 Other: Voiding Method Indwelling Catheter Indwelling Catheter ABP, PAP, CO, CI - Last Documented Arterial Blood Pressure 222/214 - Labs CBC & Chem 7: 04/19/22 05:15 04/19/22 05:15 Labs: Abnormal Lab Results - Last 24 Hours (Table) 04/18/22 04/18/22 04/18/22 Range/Units 11:50 18:19 18:27 WBC (3.8-10.6) k/uL RBC (3.80-5.40) m/uL Hgb (11.4-16.0) gm/dL Hct (34.0-46.0) % RDW (11.5-15.5) % Plt Count (150-450) k/uL Sodium (137-145) mmol/L Potassium 3.3 L (3.5-5.1) mmol/L Chloride (98-107) mmol/L Carbon Dioxide (22-30) mmol/L BUN (7-17) mg/dL Glucose (74-99) mg/dL POC Glucose (mg/dL) 178 H 164 H (70-110) mg/dL Calcium (8.4-10.2) mg/dL 04/18/22 04/19/22 04/19/22 Range/Units 23:51 05:15 05:15 WBC 17.9 H (3.8-10.6) k/uL RBC 2.81 L (3.80-5.40) m/uL Hgb 8.4 L (11.4-16.0) gm/dL Hct 26.8 L (34.0-46.0) % RDW 25.9 H (11.5-15.5) % Plt Count 123 L (150-450) k/uL Sodium 146 H (137-145) mmol/L Potassium (3.5-5.1) mmol/L Chloride 114 H (98-107) mmol/L Carbon Dioxide 33 H (22-30) mmol/L BUN 36 H (7-17) mg/dL Glucose 129 H (74-99) mg/dL POC Glucose (mg/dL) 157 H (70-110) mg/dL Calcium 7.2 L (8.4-10.2) mg/dL 04/19/22 Range/Units 06:12 WBC (3.8-10.6) k/uL RBC (3.80-5.40) m/uL Hgb (11.4-16.0) gm/dL Hct (34.0-46.0) % RDW (11.5-15.5) % Plt Count (150-450) k/uL Sodium (137-145) mmol/L Potassium (3.5-5.1) mmol/L Chloride (98-107) mmol/L Carbon Dioxide (22-30) mmol/L BUN (7-17) mg/dL Glucose (74-99) mg/dL POC Glucose (mg/dL) 150 H (70-110) mg/dL Calcium (8.4-10.2) mg/dL Microbiology - Last 24 Hours (Table) 04/14/22 08:45 Blood Culture - Preliminary Blood No Growth after 120 hours 04/14/22 12:00 Gram Stain - Final Back Wound Culture - Final 04/14/22 16:17 Gram Stain - Final Back Wound Culture - Final
[2022-04-19 11:39] LABS: Glucose,Whole Blood 194 mg/dL (70-110)
--- NOTE | 2022-04-19 12:12 | P.PN ---
Subjective Progress Note Date: 04/19/22 Principal diagnosis: GI bleeding Patient remains in the ICU. White blood cell count increased today to 18. She is more confused today. She is tolerating tube feeds. No complaints of pain currently. Objective - Vital Signs Vital signs: Vital Signs Temp 97.8 F 04/19/22 04:00 Pulse 92 04/19/22 11:00 Resp 23 04/19/22 11:00 BP 123/70 04/19/22 11:00 Pulse Ox 97 04/19/22 11:00 FiO2 40 04/16/22 14:00 Intake & Output 04/18/22 04/19/22 04/19/22 18:59 06:59 18:59 Intake Total 1212.5 503 421.5 Output Total 1115 1485 515 Balance 97.5 -982 -93.5 Weight 132 kg 132 kg Intake: IV 312.5 383 139 Anidulafungin 100 mg In 100 84 Sodium Chloride 0.9% 100 ml @ 84 mls/hr IVPB DAILY [facility] Rx#:[id number] Cefepime 1 gm In Sodium 62.5 50 Chloride 0.9% 50 ml @ 12. 5 mls/hr IVPB Q8HR [facility] Rx #:[id number] Cefepime 2 gm In Sodium 100 Chloride 0.9% 100 ml @ 25 mls/hr IVPB Q12H [facility] Rx# :[id number] Pressure Bag 33 15 Sodium Chloride 0.9% 1, 150 200 40 000 ml @ 20 mls/hr IV . Q24H [facility] Rx#:[id number] Intake, IV Titration 50 12.5 Amount Cefepime 1 gm In Sodium 12.5 Chloride 0.9% 50 ml @ 12. 5 mls/hr IVPB Q8HR [facility] Rx #:[id number] DAPTOmycin 360 mg In 50 Sodium Chloride 0.9% 50 ml @ 100 mls/hr IVPB Q24HR [facility] Rx#:[id number] Oral 250 Tube Feeding 540 120 240 Other 60 30 Output: Urine 1115 1485 515 Other: Voiding Method Indwelling Catheter Indwelling Catheter Indwelling Catheter ABP, PAP, CO, CI - Last Documented Arterial Blood Pressure 222/214 - Exam Abdomen: Soft, nontender, nondistended - Labs CBC & Chem 7: 04/19/22 05:15 04/19/22 05:15 Labs: Abnormal Lab Results - Last 24 Hours (Table) 04/18/22 04/18/22 04/18/22 Range/Units 18:19 18:27 23:51 WBC (3.8-10.6) k/uL RBC (3.80-5.40) m/uL Hgb (11.4-16.0) gm/dL Hct (34.0-46.0) % RDW (11.5-15.5) % Plt Count (150-450) k/uL Sodium (137-145) mmol/L Potassium 3.3 L (3.5-5.1) mmol/L Chloride (98-107) mmol/L Carbon Dioxide (22-30) mmol/L BUN (7-17) mg/dL Glucose (74-99) mg/dL POC Glucose (mg/dL) 164 H 157 H (70-110) mg/dL Calcium (8.4-10.2) mg/dL 04/19/22 04/19/22 04/19/22 Range/Units 05:15 05:15 06:12 WBC 17.9 H (3.8-10.6) k/uL RBC 2.81 L (3.80-5.40) m/uL Hgb 8.4 L (11.4-16.0) gm/dL Hct 26.8 L (34.0-46.0) % RDW 25.9 H (11.5-15.5) % Plt Count 123 L (150-450) k/uL Sodium 146 H (137-145) mmol/L Potassium (3.5-5.1) mmol/L Chloride 114 H (98-107) mmol/L Carbon Dioxide 33 H (22-30) mmol/L BUN 36 H (7-17) mg/dL Glucose 129 H (74-99) mg/dL POC Glucose (mg/dL) 150 H (70-110) mg/dL Calcium 7.2 L (8.4-10.2) mg/dL 04/19/22 Range/Units 11:37 WBC (3.8-10.6) k/uL RBC (3.80-5.40) m/uL Hgb (11.4-16.0) gm/dL Hct (34.0-46.0) % RDW (11.5-15.5) % Plt Count (150-450) k/uL Sodium (137-145) mmol/L Potassium (3.5-5.1) mmol/L Chloride (98-107) mmol/L Carbon Dioxide (22-30) mmol/L BUN (7-17) mg/dL Glucose (74-99) mg/dL POC Glucose (mg/dL) 194 H (70-110) mg/dL Calcium (8.4-10.2) mg/dL Microbiology - Last 24 Hours (Table) 04/14/22 08:45 Blood Culture - Preliminary Blood No Growth after 120 hours 04/14/22 12:00 Gram Stain - Final Back Wound Culture - Final 04/14/22 16:17 Gram Stain - Final Back Wound Culture - Final Assessment and Plan (1) GI bleed Narrative/Plan: Patient with increased confusion today. Monitor white blood cell count. She apparently was meeting with the hospice staff today that had been previously a rranged. Family still not interested in hospice from my understanding. Continue tube feeds at goal. We'll reevaluate tomorrow. Possible PEG tube on Sunday if patient's condition is stable or improving. Current Visit: Yes Status: Acute Priority: High Code(s): K92.2 - GASTROINTESTINAL HEMORRHAGE, UNSPECIFIED SNOMED Code(s): 04292334
--- NOTE | 2022-04-19 12:52 | P.CONS ---
History of Present Illness - Reason for Consult Consult date: 04/19/22 Goals of care Requesting physician: Casey Briscoe - History of Present Illness Patient is a 71-year-old female with a hx of A fib s/p ablation, GERD, hypertension, dyslipidemia, and right diaphragmatic paralysis who presented for T10 to Pelvis decompression and fusion with revision. Course complicated by significant blood loss. Patient was on vasopressors, also received TXA gtt. She received 7 L of lactated Ringer's. She received 1 amp of sodium bicarb intaop. She also received albumin. Patient then had a cardiac arrest. During the case she developed A. fib with RVR and then quickly transitioned into bradycardia with a low end-tidal CO2. She received 0.4 of atropine and CPR was started. She received epinephrine 0.5. She achieved ROSC. Total down time was less than 5 minutes. She was extubated on 02/25. She continued to do well but struggled with pain. She was downgraded from ICU on 03/03. On 03/06/22 patient was noted to have a significant drop in hemoglobin from 10.0 down to 7.5 and upon reevaluation on 03/07 was found to have hemoglobin of 5.4, patient required multiple transfusions. She has received a total of 7 units PRBCs and 1 unit of platelets. She underwent a CT abdomen and pelvis and was found to have a large right chest hematoma dilated small bowel concerning for ileus. Patient was evaluated by cardiothoracic surgery and they recommended conservative nohemi gement. On 03/07, patient was noted to be hypotensive with elevated WBC count of 42.3, with worsening renal function and hyperkalamia. Patient was treated with NS bolus, IV insulin/D50, Albuterol and sodium bicarbonate. She was transferred back to the ICU for septic shock requiring Levophed. Patient was started on Vancomycin and Cefepime. Blood and urine cultures were obtained and positive for Enterobacter. Infectious disease was consulted and patient was continued on Cefepime for treatment of Enterobacter UTI with secondary bacteremia and Vancomycin was discontinued. Patient was later weaned off of vasopressors and again transferred out of the ICU. Patient was started on Lasix for treatment of acute on chronic systolic heart failure with EF of 35-40%. Patient continued on Protonix for GI prophylaxis, amiodarone and metoprolol for atrial fibrillation with RVR sodium bicarb for treatment of metabolic acidosis. Pt's Xarelto remains hold at this time. Patient was evaluated by PMR and is currently not a candidate for inpatient rehab. She has been cleared by orthopedic surgery to elizabet working with physical therapy. On 03/26/22 patient was again found to have elevating leukocytosis and repeat Wound cultures were obtained. Wound cultures were positive for pseudomonas aeruginosa, enterococcus fasciculus, and Patsy albicans. Patient to continue with Zosyn per culture and sensitivity report and as recommended by infectious disease as this may be contamination/colonization however patient is a high risk of infection so we will continue with empiric antibiotic therapy. Overnight on 03/28/22 patient again developed episodes of melena and at that time Dr. Arce, general surgeon was re-consulted. CT abdomen and pelvis revealing bilateral hydronephrosis unable to rule out obstructive etiology, concerns for fecal impaction, and persistent previously known right anterior chest wall hematoma. General surgery following and reevaluated patient secondary to concerns of fecal impaction and started patient on lactulose. Warren catheter was inserted secondary to bilateral hydronephrosis and patient was evaluated by urologist recommending continuation of Warren catheter as bila teral hydronephrosis is believed to be resulting secondary to urinary retention. On the evening of 04/03/21 patient with continued atrial tachycardia and hypotension and unable to take metoprolol secondary to low blood pressures. Patient had episode of hematochezia along with large blood clot and was transferred back to the ICU. Had bedside manual disimpaction with general surgery. Also has a posterior anal fissure could likely because of current bleeding. Which required further blood transfusions. On a bowel regimen. Hemoglobin now stable at 8.4. She continues with inadequate swallow function. She is continued being nourished with vital AF via nasogastric tube. She also may require PEG tube placement. She may be a candidate for select specialty. Review of Systems Constitutional: Reports as per HPI Past Medical History Past Medical History: Atrial Fibrillation, Atrial Flutter, Cancer, Chest Pain / Angina, GERD/Reflux, Hyperlipidemia, Hypertension, Osteoarthritis (OA), Thyroid Disorder Additional Past Medical History / Comment(s): Rr breast cancer, hiatal hernia, chronic low back pain. partially paralyzed rt diaphragm, infection rt breast after surgery History of Any Multi-Drug Resistant Organisms: None Reported Past Surgical History: Back Surgery, Bladder Surgery, Breast Surgery, Cardiac Ablation, Cholecystectomy, EPS, Heart Catheterization, Hernia Repair, Hysterectomy, Joint Replacement, Orthopedic Surgery Additional Past Surgical History / Comment(s): R breast core bx/needle loc, R b reast lumpectomy/axillary node dissection, CHATO, cardioversion, low back surgeries x3 with plate/screws, total R knee x3, R foot multiple surgeries for spur/neuromas, L foot cystectomy, R elbow injury w/ surgery, R wrist ganglion cystectomy, partial thyroidectomy, 4 abdominal hernia repairs, bladder suspension, colonoscopy, loki cataract, laser loki eye surgery 01/31/22 Past Anesthesia/Blood Transfusion Reactions: Previous Problems w/ Anesthesia, Postoperative Nausea & Vomiting (PONV) Additional Past Anesthesia/Blood Transfusion Reaction / Comm: On ventilator for 2 days after cardiac ablation d/t diaphragm paralysis-rt side Past Psychological History: Depression Additional Psychological History / Comment(s): . Smoking Status: Never smoker Past Alcohol Use History: Rare Past Drug Use History: None Reported - Past Family History Father Family Medical History: Cancer Additional Family Medical History / Comment(s): . Mother Family Medical History: Cancer, Deep Vein Thrombosis (DVT) Additional Family Medical History / Comment(s): Skin and breast cancer. Medications and Allergies Home Medications Medication Instructions Recorded Confirmed Type Levothyroxine Sodium [Synthroid] 88 mcg PO QAM 02/19/14 02/20/22 History HYDROcodone/APAP 10-325MG [Branscomb 1 tab PO Q4H PRN 12/23/18 02/20/22 History 10-325] Atorvastatin [Lipitor] 10 mg PO DAILY #30 tab 04/10/19 02/20/22 Rx atenoloL [Tenormin] 100 mg PO QAM 05/10/20 02/20/22 History Amlodipine Besylate/Valsartan 1 each PO QAM 02/02/22 02/20/22 History [Exforge 5-320 mg Tablet] DULoxetine HCL [Cymbalta] 60 mg PO DAILY 02/02/22 02/20/22 History Rivaroxaban [Xarelto] 20 mg PO HS 02/02/22 02/20/22 History Rosuvastatin Calcium 10 mg PO QAM 02/02/22 02/20/22 History Allergies Allergy/AdvReac Type Severity Reaction Status Date / Time cephalexin monohydrate Allergy Mild Rash/Hives Verified 04/14/22 14:03 [From Keflex] Iodinated Contrast Media Allergy Mild Rash/Hives Verified 04/14/22 14:03 [Iodinated Contrast Media - IV Dye] Sulfa (Sulfonamide Allergy Mild Rash/Hives Verified 04/14/22 14:03 Antibiotics) adhesive tape AdvReac Severe Rash/Hives Uncoded 04/14/22 14:03 Physical Exam Vitals: Vital Signs Temp Pulse Resp BP Pulse Ox 04/19/22 11:00 92 23 123/70 97 04/19/22 10:00 96 27 H 113/63 97 04/19/22 09:00 100 16 117/63 96 04/19/22 08:00 93 23 112/57 97 04/19/22 07:33 96 04/19/22 07:00 96 14 105/63 97 04/19/22 06:00 90 12 104/78 96 04/19/22 05:00 94 14 109/60 92 L 04/19/22 04:00 97.8 F 93 21 118/62 88 L 04/19/22 03:00 97 24 109/64 92 L 04/19/22 02:00 91 19 115/64 95 04/19/22 01:00 97.8 F 86 16 114/53 92 L 04/19/22 00:00 97.3 F L 84 20 105/64 91 L 04/18/22 23:00 82 16 99/57 96 04/18/22 22:00 61 22 129/67 94 L 04/18/22 21:00 87 15 132/76 95 04/18/22 20:00 97.6 F 89 17 110/82 98 04/18/22 19:00 90 15 114/85 95 04/18/22 18:00 90 17 104/90 94 L 04/18/22 17:00 92 20 120/65 04/18/22 16:00 97.9 F 80 20 129/68 95 04/18/22 15:00 90 23 132/91 96 04/18/22 14:00 82 18 123/70 97 04/18/22 13:00 79 23 118/63 96 Intake and Output 04/18/22 04/19/22 04/19/22 22:59 06:59 14:59 Intake Total 501.5 244 421.5 Output Total 1410 625 515 Balance -908.5 -381 -93.5 Intake: IV 201.5 244 139 Anidulafungin 100 mg In 84 Sodium Chloride 0.9% 100 ml @ 84 mls/hr IVPB DAILY [facility] Rx#:[id number] Cefepime 1 gm In Sodium 62.5 Chloride 0.9% 50 ml @ 12. 5 mls/hr IVPB Q8HR [facility] Rx #:[id number] Cefepime 2 gm In Sodium 100 Chloride 0.9% 100 ml @ 25 mls/hr IVPB Q12H [facility] Rx# :[id number] Pressure Bag 9 24 15 Sodium Chloride 0.9% 1, 130 120 40 000 ml @ 20 mls/hr IV . Q24H [facility] Rx#:[id number] Intake, IV Titration 12.5 Amount Cefepime 1 gm In Sodium 12.5 Chloride 0.9% 50 ml @ 12. 5 mls/hr IVPB Q8HR [facility] Rx #:[id number] Tube Feeding 300 240 Other 30 Output: Urine 1410 625 515 Other: Voiding Method Indwelling Catheter Indwelling Catheter Indwelling Catheter Weight 132 kg 132 kg General: Well developed, well nourished. Chronically ill appearing HEENT: Head is atraumatic, normocephalic. CV: positive S1 and S2. No rubs or murmurs. Lungs: Scattered rhonchi throughout. Respirations labored, tachypenic, 2 LNC Abdomen/GI: Soft. Obese, NG tube in place with tube feeding : Warren catheter in place draining clear yellow urine Musculoskeletal/ Extremities: + Profound generalized weakness Vascular: 3+ peripheral edema Skin: Warm and dry Neurologic: Confused Psychiatric: Depressed Results CBC & Chem 7: 04/19/22 05:15 04/19/22 05:15 Labs: Abnormal Lab Results - Last 24 Hours (Table) 04/18/22 04/18/22 04/18/22 Range/Units 18:19 18:27 23:51 WBC (3.8-10.6) k/uL RBC (3.80-5.40) m/uL Hgb (11.4-16.0) gm/dL Hct (34.0-46.0) % RDW (11.5-15.5) % Plt Count (150-450) k/uL Sodium (137-145) mmol/L Potassium 3.3 L (3.5-5.1) mmol/L Chloride (98-107) mmol/L Carbon Dioxide (22-30) mmol/L BUN (7-17) mg/dL Glucose (74-99) mg/dL POC Glucose (mg/dL) 164 H 157 H (70-110) mg/dL Calcium (8.4-10.2) mg/dL 04/19/22 04/19/22 04/19/22 Range/Units 05:15 05:15 06:12 WBC 17.9 H (3.8-10.6) k/uL RBC 2.81 L (3.80-5.40) m/uL Hgb 8.4 L (11.4-16.0) gm/dL Hct 26.8 L (34.0-46.0) % RDW 25.9 H (11.5-15.5) % Plt Count 123 L (150-450) k/uL Sodium 146 H (137-145) mmol/L Potassium (3.5-5.1) mmol/L Chloride 114 H (98-107) mmol/L Carbon Dioxide 33 H (22-30) mmol/L BUN 36 H (7-17) mg/dL Glucose 129 H (74-99) mg/dL POC Glucose (mg/dL) 150 H (70-110) mg/dL Calcium 7.2 L (8.4-10.2) mg/dL 04/19/22 Range/Units 11:37 WBC (3.8-10.6) k/uL RBC (3.80-5.40) m/uL Hgb (11.4-16.0) gm/dL Hct (34.0-46.0) % RDW (11.5-15.5) % Plt Count (150-450) k/uL Sodium (137-145) mmol/L Potassium (3.5-5.1) mmol/L Chloride (98-107) mmol/L Carbon Dioxide (22-30) mmol/L BUN (7-17) mg/dL Glucose (74-99) mg/dL POC Glucose (mg/dL) 194 H (70-110) mg/dL Calcium (8.4-10.2) mg/dL Microbiology - Last 24 Hours (Table) 04/14/22 08:45 Blood Culture - Preliminary Blood No Growth after 120 hours 04/14/22 12:00 Gram Stain - Final Back Wound Culture - Final 04/14/22 16:17 Gram Stain - Final Back Wound Culture - Final Assessment and Plan Assessment: Summary/Goals - The patient was examined in the ICU. The nurse and psychiatric nursing aide got the patient up to a chair with a Ninfa lift. She is hemodynamically stable. A psychiatric evaluation was completed yesterday. 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 The patient was alert and oriented times 3 for the evaluation. SERVICE ADMINISTRATOR has been following the patient for dysphasia. The patient continues to have been inadequate swallow function. The patient currently has a nasogastric tube with tube feeding infusing. General surgery has been consult for a possible PEG tube placement. The patient is confused today. She was hallucinating and calling for her dog, Juan, who she thought was in the room. She is lethargic and struggles to stay awake. Her speech was difficult to understand. She stated she does not feel like she is getting any better. She thinks it is mean gruel to keep her here just lying around. She states that is painful when the staff repositions her. Her sister, Destini, is at the bedside. She continues to encourage the patient and tells her that she is making progress. The patient stated that she thinks everyone is lying to her and she is not getting any better. The patient began to cry stating that she wanted her kids. Destini states that her kids come to visit her every today. Apparently there was a family discussion yesterday and they decided and I giving up on her yet. They believe she is getting better and would like to send her to rehab to get stronger. If rehab fails, then they will consider hospice. Plan: Recommendations - SARAI with palliative care Advanced Directives - none on file Code Status - DO NOT RESUSCITATE Thank you for this consultation Belia Scott [facility] Palliative Care [facility] [id number] Email: [email or web address]
[2022-04-19 13:44] LABS: Band Neutrophils % 2 %; Lymphocytes # (M) 2.84 k/uL (1.0-4.8); Monocytes # (M) 0.33 k/uL (0-1.0); Myelocytes # (M) 0.33 k/uL (0); Myelocytes % 2 %; Neutrophils % (M) 79 %; Nucleated Red Blood Cells 7 /100 WBC (0-0); Total Cells Counted 200; WBC 16.7 k/uL (3.8-10.6)
[2022-04-19 13:45] LABS: Polychromasia Present; Toxic Granulation Present
--- NOTE | 2022-04-19 14:05 | P.PN ---
Subjective Progress Note Date: 04/19/22 Principal diagnosis: UTI and bacteremia Patient is a 71-year-old female with a past medical history difficult for atrial fibrillation flutter hypertension hyperlipidemia hypothyroidism right breast cancer electively admitted to the hospital on 02/24/2022 for T10 to lumb ar spine revision decompression and posterior lateral interbody fusion, patient did have a episode of hypotension and elevated white count requiring admission to the ICU patient did have Enterobacter urinary tract infection and bacteremia and patient did have exploration of the thoracolumbar incision completed on 03/09/2022 with apparently no evidence of any abscess, patient subsequently did have dehiscence of the lower lumbar incision and a low-grade fever on 04/14/2022 for the patient was taken back to the OR on 04/14/2022 status post washout and closure of the wound. On today's evaluation that is 04/19/2022 the patient remains to be afebrile, patient is currently breathing comfortably on 2 L nasal cannula, the patient is up in the chin is slightly more awake and alert today mention not feeling well, complaining of weakness no chest pain or any worsening cough no abdominal pain patient did fail her swallow evaluation did have NG for feeding and a fecal management system but no worsening output per the nursing staff Objective - Vital Signs Vital signs: Vital Signs Temp 97.8 F 04/19/22 04:00 Pulse 93 04/19/22 08:00 Resp 13 04/19/22 08:00 BP 112/57 04/19/22 08:00 Pulse Ox 97 04/19/22 08:00 FiO2 40 04/16/22 14:00 Intake & Output 04/18/22 04/19/22 04/19/22 18:59 06:59 18:59 Intake Total 1212.5 503 285.5 Output Total 1115 1485 265 Balance 97.5 -982 20.5 Weight 132 kg 132 kg Intake: IV 312.5 383 123 Anidulafungin 100 mg In 100 84 Sodium Chloride 0.9% 100 ml @ 84 mls/hr IVPB DAILY [facility] Rx#:[id number] Cefepime 1 gm In Sodium 62.5 50 Chloride 0.9% 50 ml @ 12. 5 mls/hr IVPB Q8HR [facility] Rx #:[id number] Cefepime 2 gm In Sodium 100 Chloride 0.9% 100 ml @ 25 mls/hr IVPB Q12H [facility] Rx# :[id number] Pressure Bag 33 9 Sodium Chloride 0.9% 1, 150 200 30 000 ml @ 20 mls/hr IV . Q24H [facility] Rx#:[id number] Intake, IV Titration 50 12.5 Amount Cefepime 1 gm In Sodium 12.5 Chloride 0.9% 50 ml @ 12. 5 mls/hr IVPB Q8HR [facility] Rx #:[id number] DAPTOmycin 360 mg In 50 Sodium Chloride 0.9% 50 ml @ 100 mls/hr IVPB Q24HR [facility] Rx#:[id number] Oral 250 Tube Feeding 540 120 120 Other 60 30 Output: Urine 1115 1485 265 Other: Voiding Method Indwelling Catheter Indwelling Catheter ABP, PAP, CO, CI - Last Documented Arterial Blood Pressure 222/214 - Exam GENERAL DESCRIPTION: An elderly female lying in Bed in no distress RESPIRATORY SYSTEM: Unlabored breathing , decreased breath sounds at bases HEART: S1 S2 regular rate and rhythm , ABDOMEN: Soft , no tenderness EXTREMITIES: Diffuse swelling bilateral lower extremity 1 - Labs CBC & Chem 7: 04/19/22 05:15 04/19/22 12:45 Labs: Abnormal Lab Results - Last 24 Hours (Table) 04/18/22 04/18/22 04/18/22 Range/Units 11:50 18:19 18:27 WBC (3.8-10.6) k/uL RBC (3.80-5.40) m/uL Hgb (11.4-16.0) gm/dL Hct (34.0-46.0) % RDW (11.5-15.5) % Plt Count (150-450) k/uL Sodium (137-145) mmol/L Potassium 3.3 L (3.5-5.1) mmol/L Chloride (98-107) mmol/L Carbon Dioxide (22-30) mmol/L BUN (7-17) mg/dL Glucose (74-99) mg/dL POC Glucose (mg/dL) 178 H 164 H (70-110) mg/dL Calcium (8.4-10.2) mg/dL 04/18/22 04/19/22 04/19/22 Range/Units 23:51 05:15 05:15 WBC 17.9 H (3.8-10.6) k/uL RBC 2.81 L (3.80-5.40) m/uL Hgb 8.4 L (11.4-16.0) gm/dL Hct 26.8 L (34.0-46.0) % RDW 25.9 H (11.5-15.5) % Plt Count 123 L (150-450) k/uL Sodium 146 H (137-145) mmol/L Potassium (3.5-5.1) mmol/L Chloride 114 H (98-107) mmol/L Carbon Dioxide 33 H (22-30) mmol/L BUN 36 H (7-17) mg/dL Glucose 129 H (74-99) mg/dL POC Glucose (mg/dL) 157 H (70-110) mg/dL Calcium 7.2 L (8.4-10.2) mg/dL 04/19/22 Range/Units 06:12 WBC (3.8-10.6) k/uL RBC (3.80-5.40) m/uL Hgb (11.4-16.0) gm/dL Hct (34.0-46.0) % RDW (11.5-15.5) % Plt Count (150-450) k/uL Sodium (137-145) mmol/L Potassium (3.5-5.1) mmol/L Chloride (98-107) mmol/L Carbon Dioxide (22-30) mmol/L BUN (7-17) mg/dL Glucose (74-99) mg/dL POC Glucose (mg/dL) 150 H (70-110) mg/dL Calcium (8.4-10.2) mg/dL Microbiology - Last 24 Hours (Table) 04/14/22 08:45 Blood Culture - Preliminary Blood No Growth after 120 hours 04/14/22 12:00 Gram Stain - Final Back Wound Culture - Final 04/14/22 16:17 Gram Stain - Final Back Wound Culture - Final Assessment and Plan (1) Sepsis Current Visit: Yes Status: Acute Code(s): A41.9 - SEPSIS, UNSPECIFIED ORGANISM SNOMED Code(s): 41735468 Plan: 1-patient with a cath associated UTI urine has been positive for Patsy albicans, patient to continue with Eraxis , 2patient with evidence of surgical wound dehiscence of the lumbar incision in this patient who is status post surgical debridement and closure of the wound along with deep culture which so far negative, the patient is covered with cefepime and daptomycin 3patient did have worsening white count, we will repeat her culture repeat a stool for C. diff and check a UA and repeat her inflammatory markers Time with Patient: Less than 30
--- NOTE | 2022-04-19 15:16 | P.PN ---
Progress Note - Text Progress Note Date: 04/19/22 Interval History: Patient was seen today for psychiatric follow-up regarding patient's depression. patientns nurse claims that patient has been more confused today however is improving with her depression. nurse also claims that patient did not sleep well last night. Patient was seen today sitting in her chair and agreeable to speak to marketing underwriter. she was rambling at times and difficult to redirect. she did appear to be more awake however. she did claims that she feels more hopeful about her prognosis and condition after speaking with her family. she did appear to be confused at times during the interview. marketing underwriter spoke with pts son at the bedside who states the same thing. At this time patient denies any suicidal or homical ideations, intent or plan. Patient denies any auditory, visual hallucinations and denies. Patient denies any side effects from the medications and has been compliant with meds. Mental Status Exam: General Appearance: Patient appears to be obese, stated age is less lethargic, confused at times, attempts to cooperate. Patient appears to have fair hygiene and grooming wearing hospital gown with improivng eye contact. Behavior: Patient is calmly lying in bed without any agitated behavior. confused at times Speech: Patient's speech is fluent and nonpressured. Monotone and soft tone. Mood/Affect: Patient reports their mood is "alright", affect is congruent and constricted Suicidality/Homicidality: Patient denies having any suicidal or homicidal ideation intent or plan. She denies any SI Perceptions: Patient denies any visual hallucinations and denies any auditory hallucinations Though content/process: There is no evidence of any delusional thought content. illogical at times. rambles at times. Memory and concentration: AOX3, grossly intact for the purposes of this session Judgment and insight: poor, improving mildly IMPRESSIONS: Delirium likely from multiple etiologies Major depressive disorder, without psychotic features PLAN: -At this time patient DOES NOT meet criteria for inpatient psychiatric admission. -Delirium precautions recommended with patient including - avoiding use of narcotics and MUNICIPAL [employer] JUDGE sedatives, limit anticholinergic medications when possible, frequent re-orientation, minimize use of restraints, open window shades during the day and close them at night. PLEASE attempt to limit the use of opioids as this is likely exacerbating delirium/confusion. -Would recommend the following medication changes/additions: increase Remeron 30 mg daily at bedtime for sleep/mood, continue with Cymbalta 60 mg daily for mood/anxiety,Wellbutrin 150 mg daily for mood adjunct. added melatonin 3 mg qhs for sleep. -Will continue to follow along as needed. -Please contact with any questions.
[2022-04-19 15:57] LABS: Amorphous Sediment,Urine Occasional /hpf; Appearance,Urine Cloudy (Clear); Bacteria,Urine Rare /hpf; Bilirubin,Urine Negative (Negative); Blood,Urine Large (Negative); Color,Urine Yellow; Glucose,Urine (UA) Negative (Negative); Granular Casts,Urine 6 /lpf (0); Hyaline Casts,Urine 31 /lpf (0-2); Ketones,Urine Negative (Negative); Leukocyte Esterase,Urine Negative (Negative); Mucus,Urine Rare /hpf; Nitrite,Urine Negative (Negative); PH, Urine 5.5 (5.0-8.0); Protein,Urine 1+ (Negative); RBC,Urine 3 /hpf (0-5); Specific Gravity,Urine 1.021 (1.001-1.035); Squamous Epithelial Cell,Urine 2 /hpf (0-4); Urobilinogen,Urine <2.0 mg/dL (<2.0); WBC,Urine 10 /hpf (0-5)
[2022-04-19] MEDS ORDERED: CEFEPIME 2 GM in SODIUM CHLORIDE 0.9% 50 ML IVPB SCH (16:00)
[2022-04-19] MEDS: CEFEPIME 2 GM in SODIUM CHLORIDE 0.9% 100 ML IVPB SCH ×2 (16:21→23:38)
[2022-04-19] MEDS: NOREPINEPHRINE 8 MG in SODIUM CHLORIDE 0.9% 250 ML IV SCH (18:29)
[2022-04-19 18:30] LABS: Glucose,Whole Blood 172 mg/dL (70-110)
[2022-04-19] MEDS: MELATONIN 3 MG TABLET PO SCH (21:01)
[2022-04-19] MEDS: MIRTAZAPINE 15 MG TAB PO SCH (21:05)
[2022-04-19 23:29] LABS: Glucose,Whole Blood 188 mg/dL (70-110)
[2022-04-20 06:07] LABS: Glucose,Whole Blood 163 mg/dL (70-110)
[2022-04-20] MEDS: ACETAMINOPHEN TAB 500 MG TAB PO SCH ×3 (06:24→17:48)
[2022-04-20] MEDS: LEVOTHYROXINE 88 MCG TAB PO SCH (06:24)
[2022-04-20] MEDS: INSULIN ASPART (NovoLOG) 100 UNIT/ML VIAL SQ SCH ×3 (06:24→18:01)
[2022-04-20] MEDS: SODIUM CHLORIDE 0.9% 1,000 ML IV SCH (06:25)
[2022-04-20] MEDS: HYDROmorphone 0.5 MG/0.5 ML SYRINGE IVP PRN (06:38)
--- NOTE | 2022-04-20 07:25 | P.PN ---
Subjective Progress Note Date: 04/20/22 Principal diagnosis: Typical atrial flutter Patient is pleasant 71-year-old female with history of persistent typical atrial flutter, paroxysmal atrial fibrillation, hypertension, hyperlipidemia. She follows with Dr. Leger. We are consulted for A flutter. She presented for [facility] surgery. She underwent back surgery with a long procedure. She was noted to be in atrial flutter throughout the case. After that she became bradycardic and she did have an episode appeared to be brief of severe bradycardia/cardiac arrest and she resuscitated. 03/08/2022 The patient was seen and evaluated this morning. She seems to be hypotensive now require norepinephrine. She remains in atrial flutter with overall controlled heart rate. She is on Cardizem. I'm going to stop the Cardizem and start the patient on amiodarone was bolus and drip giving the low blood pressure requiring vasopressors. Beside that continued oral anticoagulation. Follow-up with the patient. March 092021 The patient was seen and evaluated this morning. She remains in atrial flutter with controlled heart rate. Oral anticoagulation is on hold at this point in the light of bleeding. The hemoglobin this morning is below 7. There is a possibility that the patient might need another back surgery. March 102021 The patient was seen and evaluated this morning beach she underwent another surgery yesterday. She seems to be stable at this point and she is on very small dose of norepinephrine which point to be weaned later on today. Otherwise today she is in normal sinus mechanism. Hemoglobin is a stable. March 112021 The patient was seen and evaluated this morning. She is extubated. She is hemodynamic stable beside being tachycardic and underlying rhythm seems to be A. fib/atrial flutter. The pressure is soft. She just went of vasopressors. I'm going to start the patient on amiodarone IV and switch her to amiodarone by mouth down the line. Hold on any anticoagulation at this point in the light of history of bleeding. Her hemoglobin this morning is 8.9. On examination she seems to be hypervolemic with bilateral lower except his edema March 122021 The patient was seen and evaluated this morning. She remains a stable overall. She was extubated yesterday. She stated "I feel better". Currently she is in atrial fibrillation with overall controlled heart rate. Currently she is on amiodarone IV which I'm going to stop and start amiodarone by mouth. Anticoagulation is on hold right now in the light of recent history of bleeding and low hemoglobin required blood transfusion. Her hemoglobin this morning is 8.9. On examination she seems to be overall euvolemic with mild bilateral lower except his edema. 04/17/2022 The patient was seen this morning. She remains in atrial flutter with overall controlled heart rate on the current dose of verapamil as well as beta nic. I am going to DC verapamil and increase the dose of beta nic giving the cardiomyopathy situation. Her hemoglobin remained stable. Her GFR remains stable as well. She is not on any anticoagulation in the light of history of gastrointestinal bleeding. The chest x-ray showed small bilateral pleural effusion. She continues to be on IV Lasix April 182022 The patient was seen and evaluated this morning. She remains in atrial flutter/atrial fibrillation with controlled heart rate. I stopped the verapamil yesterday and increase the dose of beta nic and she has been tolerating that. She is not on anticoagulation in the light of gastrointestinal bleeding history. From the cardiac standpoint of view, we'll continue the current medical regimen beach she still in volume overload and currently she is on Lasix IV which I would continue. 04/19/2022 The patient was seen and evaluated this morning. She remains hemodynamically stable and not on any vasopressors at this point. She remains in atrial fibrillation/atrial flutter with overall controlled heart rate on the current medical regimen including current dose of beta nic. She seems to be hypervolemic on examination was bilateral rhonchi and bilateral lower extremities edema. Currently she is on Lasix IV. Creatinine continues to be stable. April 202022 The patient was seen this morning. He continues to be congested. She continues to be on oxygen requiring 2 L. Her urine output has been marginal. The pressure has been stable. I'm going to increase the dose of Lasix to 80 mg IV twice a day and continue the current medical regimen including current dose of beta nic and follow-up with the patient. Objective - Vital Signs Vital signs: Vital Signs Temp 97.8 F 04/19/22 20:00 Pulse 90 04/19/22 19:00 Resp 17 04/19/22 20:00 BP 134/119 04/19/22 20:00 Pulse Ox 93 L 04/19/22 20:02 FiO2 40 04/16/22 14:00 Intake & Output 04/19/22 04/20/22 04/20/22 18:59 06:59 18:59 Intake Total 862.5 1209 Output Total 1465 1375 Balance -602.5 -166 Weight 132 kg Intake: IV 220 309 Anidulafungin 100 mg In 100 Sodium Chloride 0.9% 100 ml @ 84 mls/hr IVPB DAILY [facility] Rx#:[id number] Pressure Bag 30 9 Sodium Chloride 0.9% 1, 90 300 000 ml @ 20 mls/hr IV . Q24H [facility] Rx#:[id number] Intake, IV Titration 12.5 Amount Cefepime 1 gm In Sodium 12.5 Chloride 0.9% 50 ml @ 12. 5 mls/hr IVPB Q8HR [facility] Rx #:[id number] Tube Feeding 540 900 Other 90 Output: Urine 765 1375 Stool 700 Other: Voiding Method Indwelling Catheter Indwelling Catheter ABP, PAP, CO, CI - Last Documented Arterial Blood Pressure 222/214 - Constitutional General appearance: Present: no acute distress - Respiratory Respiratory: bilateral: diminished - Cardiovascular Heart sounds: normal: S1, S2 - Labs CBC & Chem 7: 04/19/22 05:15 04/19/22 12:45 Labs: Abnormal Lab Results - Last 24 Hours (Table) 04/19/22 04/19/22 04/19/22 Range/Units 05:15 11:37 15:35 WBC 16.7 H (3.8-10.6) k/uL Neutrophils # (Manual) 13.50 H (1.3-7.7) k/uL Myelocytes # (Manual) 0.33 H (0) k/uL Nucleated RBCs 7 H (0-0) /100 WBC POC Glucose (mg/dL) 194 H (70-110) mg/dL Urine Appearance Cloudy H (Clear) Urine Protein 1+ H (Negative) Urine Blood Large H (Negative) Urine WBC 10 H (0-5) /hpf Amorphous Sediment Occasional H (None) /hpf Urine Bacteria Rare H (None) /hpf Hyaline Casts 31 H (0-2) /lpf Urine Mucus Rare H (None) /hpf 04/19/22 04/19/22 04/20/22 Range/Units 18:29 23:27 06:05 WBC (3.8-10.6) k/uL Neutrophils # (Manual) (1.3-7.7) k/uL Myelocytes # (Manual) (0) k/uL Nucleated RBCs (0-0) /100 WBC POC Glucose (mg/dL) 172 H 188 H 163 H (70-110) mg/dL Urine Appearance (Clear) Urine Protein (Negative) Urine Blood (Negative) Urine WBC (0-5) /hpf Amorphous Sediment (None) /hpf Urine Bacteria (None) /hpf Hyaline Casts (0-2) /lpf Urine Mucus (None) /hpf Microbiology - Last 24 Hours (Table) 04/19/22 15:00 Urine Culture - Preliminary Urine,Voided 04/14/22 12:00 Anaerobic Culture - Final Back Patsy albicans 04/14/22 16:17 Anaerobic Culture - Final Back 04/14/22 08:45 Blood Culture - Preliminary Blood No Growth after 120 hours 04/14/22 12:00 Gram Stain - Final Back Wound Culture - Final 04/14/22 16:17 Gram Stain - Final Back Wound Culture - Final Assessment and Plan Assessment: ASSESSMENT Status post back surgery Persistent atrial fibrillation Hypertension Hyperlipidemia Cardiomyopathy, ischemic vs non-ischemic Electrolytes imbalance which has improved Back pain History of GI bleeding PLAN Continue the current medical regimen Increase the dose of Lasix to 80 mg IV twice a day Continue monitor the kidney function and electrolytes Follow-up with the patient
--- NOTE | 2022-04-20 08:24 | P.PN ---
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 Patient is currently resting in bed, positioned with a body wedge. Morning Hgb 5.1, RN states they will be redrawing to confirm. Patient is currently on 2L O2 via NC. Bilateral ronchi present. Patient is lethargic this morning, she is not communicating as well as she did yesterday morning. Surgical dressing is intact, this will be changed later today. Nasogastric tube present, patient is currently at goal of 60 mL/hr. Patient is tolerating well. 4+ pitting edema to bilateral lower extremities. 3+ edema to bilateral upper extremities. Patient is currently on Lasix. Warren catheter is patent. Fecal management system is present. Continue to encourage patient to participate with PT/OT as tolerated. Patient has been afebrile, denies nausea/vomiting, or chest pain. Objective - Vital Signs Vital signs: Vital Signs Temp 97.8 F 04/19/22 20:00 Pulse 90 04/19/22 19:00 Resp 17 04/19/22 20:00 BP 134/119 04/19/22 20:00 Pulse Ox 93 L 04/19/22 20:02 FiO2 40 04/16/22 14:00 Intake & Output 04/19/22 04/20/22 04/20/22 18:59 06:59 18:59 Intake Total 862.5 1209 Output Total 1465 1375 Balance -602.5 -166 Weight 132 kg Intake: IV 220 309 Anidulafungin 100 mg In 100 Sodium Chloride 0.9% 100 ml @ 84 mls/hr IVPB DAILY [facility] Rx#:[id number] Pressure Bag 30 9 Sodium Chloride 0.9% 1, 90 300 000 ml @ 20 mls/hr IV . Q24H [facility] Rx#:[id number] Intake, IV Titration 12.5 Amount Cefepime 1 gm In Sodium 12.5 Chloride 0.9% 50 ml @ 12. 5 mls/hr IVPB Q8HR [facility] Rx #:[id number] Tube Feeding 540 900 Other 90 Output: Urine 765 1375 Stool 700 Other: Voiding Method Indwelling Catheter Indwelling Catheter ABP, PAP, CO, CI - Last Documented Arterial Blood Pressure 222/214 - Exam Physical Examination General: The patient is awake and alert, in no acute distress Skin: Skin is warm and dry with no obvious rashes or lesions. Hairy patches absent, no dorsal skin dimples, no cafe au lait spots. Surgical Incision to lumbar region, sutures are intact. Dressing is CDI, will be changed later today. Eye: Pupils are equal, round and reactive to light, extra-ocular movements are intact; there is normal conjunctiva bilaterally. Neck: The neck is supple, there is no tenderness and ROM intact. Cardiovascular: A-fib, Patient presents with 4+ pitting edema to BLE, 3+ pitting edema to BUE Respiratory: Diminished bilateral lung bases to auscultation, respirations are non-labored, breath sounds are equal, 2LNC Gastrointestinal: Soft, non-distended, non-tender abdomen, FMS patent, NG tube placed for nutrition, Patient currently at goal, which is 60ml/hr. Back: There is no tenderness to palpation in the midline, paralumbar, parathoracic or buttocks region. There is no obvious deformity . Musculoskeletal: ROM limited secondary to pain and stiffness from surgical procedure. Muscle strength in all major muscle groups of bilateral upper extremities 4-/5, bilateral lower extremities 3-/5. Neurological: CN 2-12 intact. There are no obvious motor or sensory deficits. Movement and coordination equal and intact. Sensory exam to light touch intact C5-T1 and intact from L2-S1. Reflexes 2/4 in bilateral upper and lower extremities. Negative Hoffmans, babinski, and clonus signs. Psychiatric: Cooperative, appropriate mood & affect, normal judgment. - Labs CBC & Chem 7: 04/20/22 07:05 04/20/22 07:05 Labs: Abnormal Lab Results - Last 24 Hours (Table) 04/19/22 04/19/22 04/19/22 Range/Units 05:15 11:37 15:35 WBC 16.7 H (3.8-10.6) k/uL RBC (3.80-5.40) m/uL Hgb (11.4-16.0) gm/dL Hct (34.0-46.0) % RDW (11.5-15.5) % Neutrophils # (Manual) 13.50 H (1.3-7.7) k/uL Myelocytes # (Manual) 0.33 H (0) k/uL Nucleated RBCs 7 H (0-0) /100 WBC Sodium (137-145) mmol/L Potassium (3.5-5.1) mmol/L Chloride (98-107) mmol/L Carbon Dioxide (22-30) mmol/L BUN (7-17) mg/dL Glucose (74-99) mg/dL POC Glucose (mg/dL) 194 H (70-110) mg/dL Calcium (8.4-10.2) mg/dL AST (14-36) U/L ALT (4-34) U/L C-Reactive Protein (<1.0) mg/dL Total Protein (6.3-8.2) g/dL Albumin (3.5-5.0) g/dL Urine Appearance Cloudy H (Clear) Urine Protein 1+ H (Negative) Urine Blood Large H (Negative) Urine WBC 10 H (0-5) /hpf Amorphous Sediment Occasional H (None) /hpf Urine Bacteria Rare H (None) /hpf Hyaline Casts 31 H (0-2) /lpf Urine Mucus Rare H (None) /hpf 04/19/22 04/19/22 04/20/22 Range/Units 18:29 23:27 06:05 WBC (3.8-10.6) k/uL RBC (3.80-5.40) m/uL Hgb (11.4-16.0) gm/dL Hct (34.0-46.0) % RDW (11.5-15.5) % Neutrophils # (Manual) (1.3-7.7) k/uL Myelocytes # (Manual) (0) k/uL Nucleated RBCs (0-0) /100 WBC Sodium (137-145) mmol/L Potassium (3.5-5.1) mmol/L Chloride (98-107) mmol/L Carbon Dioxide (22-30) mmol/L BUN (7-17) mg/dL Glucose (74-99) mg/dL POC Glucose (mg/dL) 172 H 188 H 163 H (70-110) mg/dL Calcium (8.4-10.2) mg/dL AST (14-36) U/L ALT (4-34) U/L C-Reactive Protein (<1.0) mg/dL Total Protein (6.3-8.2) g/dL Albumin (3.5-5.0) g/dL Urine Appearance (Clear) Urine Protein (Negative) Urine Blood (Negative) Urine WBC (0-5) /hpf Amorphous Sediment (None) /hpf Urine Bacteria (None) /hpf Hyaline Casts (0-2) /lpf Urine Mucus (None) /hpf 04/20/22 04/20/22 Range/Units 07:05 07:05 WBC 13.2 H (3.8-10.6) k/uL RBC 1.66 L (3.80-5.40) m/uL Hgb 5.1 L* D (11.4-16.0) gm/dL Hct 16.2 L* (34.0-46.0) % RDW 26.3 H (11.5-15.5) % Neutrophils # (Manual) (1.3-7.7) k/uL Myelocytes # (Manual) (0) k/uL Nucleated RBCs (0-0) /100 WBC Sodium 146 H (137-145) mmol/L Potassium 3.4 L (3.5-5.1) mmol/L Chloride 117 H (98-107) mmol/L Carbon Dioxide 32 H (22-30) mmol/L BUN 48 H (7-17) mg/dL Glucose 154 H (74-99) mg/dL POC Glucose (mg/dL) (70-110) mg/dL Calcium 6.7 L (8.4-10.2) mg/dL AST 52 H (14-36) U/L ALT 44 H (4-34) U/L C-Reactive Protein 3.4 H (<1.0) mg/dL Total Protein 2.6 L (6.3-8.2) g/dL Albumin 1.1 L (3.5-5.0) g/dL Urine Appearance (Clear) Urine Protein (Negative) Urine Blood (Negative) Urine WBC (0-5) /hpf Amorphous Sediment (None) /hpf Urine Bacteria (None) /hpf Hyaline Casts (0-2) /lpf Urine Mucus (None) /hpf Microbiology - Last 24 Hours (Table) 04/19/22 15:00 Urine Culture - Preliminary Urine,Voided 04/14/22 12:00 Anaerobic Culture - Final Back Patsy albicans 04/14/22 16:17 Anaerobic Culture - Final Back 04/14/22 08:45 Blood Culture - Preliminary Blood No Growth after 120 hours 04/14/22 12:00 Gram Stain - Final Back Wound Culture - Final 04/14/22 16:17 Gram Stain - Final Back Wound Culture - Final Assessment and Plan Assessment: Lumbar wound dehiscence s/p [id number] decompression and fusion with complex perioperative and post operative course - Postoperative day #6 status post Irrigation and excisional debridement of lumbar spine [id number] cm wound, complex closure. Plan: -Appreciate compliance consultant and team management PCC and medicine -Appreciate cardiothoracic, Gen. surgery, nephrology, ID evaluations -Continue Activity: as medically tolerated, patient needs to be transferred to a room with a zulema lift. -PT / OT DAILY work on increased strength in LE quads, hammys, etc for standing -Cont Abx for duration of stay -Pain control: Adequate today. Watch pressures and VS. -Meplex pads on sacral region with barrier cream. Cont turn. Sit at different angles. -Meds: reviewed -Trend labs, trend SED and CRP for markers -GI ppx: senna, Miralax, -Continue with FMS per GI. -Continue Warren changed per protocol -Cont with FBS -DVT PPX: Mechanical only -Hygiene: Maintain dressing clean and dry. Meticulous cleaning after BMs away from incision site patient has had several instances on the floor where she was covered and bowel movement as well as urine up to her shoulders on her back. The wound needs to be kept meticulously clean. -Encourage IS 10x/hr -Patient is cleared from Orthopedic standpoint for discharge to rehab when medically stable. *I reviewed and discussed this case with my attending Dr. Alexander, whom has reviewed this chart and films and is in agreement with assessment and plan of care as outlined above. I have personally seen and examined the patient, performed the documentation and the assessment and plan as written. Number of minutes spent on the visit: [10m ].
[2022-04-20 08:30] LABS: Anisocytosis Marked; HCT 24.5 % (34.0-46.0); Hypochromasia Marked; MCH 31.2 pg (25.0-35.0); MCHC 31.6 g/dL (31.0-37.0); MCV 98.7 fL (80.0-100.0); Macrocytosis Marked; Mean Platelet Volume 11.3; Platelet Count 109 k/uL (150-450); Poikilocytosis Marked; RBC 2.48 m/uL (3.80-5.40)
[2022-04-20 08:36] LABS: RDW 26.3 % (11.5-15.5)
[2022-04-20 08:37] LABS: HGB 7.8 gm/dL (11.4-16.0)
[2022-04-20 08:52] LABS: HGB 5.1 gm/dL (11.4-16.0)
[2022-04-20 08:54] LABS: HCT 16.2 % (34.0-46.0)
[2022-04-20 09:25] LABS: Erythrocyte Sedimentation Rate 41 mm/hr (0-20)
[2022-04-20] MEDS: MIDODRINE 5 MG TAB PO SCH ×3 (09:39→17:48)
[2022-04-20] MEDS: GABAPENTIN 400 MG CAP PO SCH ×3 (09:44→21:45)
[2022-04-20] MEDS: AMIODARONE 200 MG TAB PO SCH (09:44)
[2022-04-20] MEDS: ATORVASTATIN 20 MG TAB PO SCH (09:44)
[2022-04-20] MEDS: ENOXAPARIN 40 MG/0.4 ML SYRINGE SQ SCH (09:44)
[2022-04-20] MEDS: METOPROLOL TARTRATE 50 MG TAB PO SCH ×2 (09:44→21:44)
[2022-04-20] MEDS: CEFEPIME 2 GM in SODIUM CHLORIDE 0.9% 100 ML IVPB SCH ×2 (09:44→17:02)
[2022-04-20] MEDS: MAGNESIUM OXIDE 400 MG TAB PO SCH (09:44)
[2022-04-20] MEDS: PANTOPRAZOLE 40 MG/10 ML VIAL IVP SCH ×2 (09:45→21:39)
[2022-04-20] MEDS: MAG HYDROX/AL HYDROX/SIMETH 30 ML, diphenhydrAMINE ELIXIR 75 MG, LIDOCAINE VISCOUS 2% 3... PO SCH ×9 (09:45→21:45)
[2022-04-20] MEDS: SIMETHICONE 40 MG/0.6 ML DROPS 2,000 MG/30 ML BOTTLE PO SCH ×4 (09:45→21:45)
[2022-04-20 09:50] LABS: Albumin 1.9 g/dL (3.5-5.0); C Reactive Protein 4.3 mg/dL (<1.0); Calcium 7.2 mg/dL (8.4-10.2); Potassium 3.3 mmol/L (3.5-5.1); Total Bilirubin 0.9 mg/dL (0.2-1.3); Total Protein 4.2 g/dL (6.3-8.2)
--- NOTE | 2022-04-20 09:52 | P.PN ---
Subjective Progress Note Date: 04/20/22 The patient is seen today 04/17/2022 in follow-up in the intensive care unit. She is status post the T10 to pelvis decompression and fusion on 02/24/2022 with complex perioperative and postoperative course. She had a wound dehiscence and a possible CSF leak on 03/09/2022 and had undergone irrigation and debridement of thoracal lumbar and pelvic skin with dural repair and patch graft and L1. She had undergone a third surgery on 04/14/2022 for lumbar wound dehiscence. Dr. Alexander and performed irrigation and excisional debridement of lumbar spine 30 x 20 x 15 cm with a complex wound closure and a 4-layer fashion. She was initially on the mechanical ventilator and subsequently extubated yesterday 04/16/2022. Currently she is resting fairly comfortably in bed. She is on oxygen at 2 L/m per nasal cannula with O2 saturations in the 90s. Chest x-ray reveals small bilateral pleural effusions and atelectasis.. Left-sided PICC line is in place. She has normal saline at 20 mL per hour. Her norepinephrine has been off for approximately 48 hours. She is being nourished via nasogastric tube with vital AF at 30 mL per hour. She is status post 13 units of packed red blood cells this admission, 2 units of platelets. White count 13.5. Hemoglobin 8.3. Platelets 113. Sodium 145. Potassium 2.7. Chloride 117. BUN 25. Creatinine 0.70. Glucose 141. She is receiving Lasix 40 mg IV every 8 hours. Currently in a -1.4 L balance. Wound cultures are pending. Sputum culture is pending. Previous wound culture from 03/26/2022 was positive for pseudomonas aeruginosa, Enterococcus faecalis and Patsy. She is maintained on Eraxis, cefepime and vancomycin. The patient is seen today 04/18/2022 in follow-up in the intensive care unit. She is currently resting comfortably in bed. Awake and alert in no acute distress. She is maintaining O2 saturations in the 90s on 2 L/m per nasal cannula. Nasogastric tube remains in place. Speech is evaluating her swallowing abilities. She has 0.9 normal sinus KVO. She is continued on antibiotics in the form of cefepime, daptomycin along with Eraxis. Her dressing was changed by orthopedics today and stated the incision is clean dry well approximated. Just a small amount of serosanguineous drainage was noted. She continues to work with physical therapy. She is now in a room with a Ninfa lift for assistance. Follow-up on wound cultures from 04/14/2022 are pending. Sputum culture from 04/15/2022 revealed no growth. White count 16.8. Hemoglobin 8.5. Platelets 116. Sodium 145. Potassium 3.0. BUN 28. Creatinine 0.82. Glucose 128. She is currently in a -1.3 L balance. Remains on Lasix 40 mg IV every 8 hours. She is continued on Lovenox for DVT prophylaxis. Encouraged regarding the use of the incentive spirometer and cough and deep breathing exercises. Being nourished with vital AF and tolerating tube feedings. The patient is seen today 04/19/2022 in follow-up in the intensive care unit. She remains awake and alert. She is maintaining O2 saturations in the 90s on 2 L/m per nasal cannula. She has normal saline at KVO. She is continued on antibiotics and warm and daptomycin, cefepime and Eraxis. She is maintained on IV diuretics in the form of Lasix 40 mg every 8 hours. Currently in a -885 mL balance. Follow up wound cultures of her back from 04/14/2022 reveal no growth. Sputum culture revealed no growth. White count 17.9. Hemoglobin 8.4. Platelets 123. Sodium 146. Chloride 114. Bicarb 33. BUN 36. Creatinine 0.87. Glucose 129. She has been very slow to progress. This is her 54th day in the hospital. She had been somewhat depressed and stating she wanted to stop all of the treatment. She was seen by psychiatry and placed on Wellbutrin. Her family is encouraging her to continue with treatment. She continues with inadequate swallow function. She is continued being nourished with vital AF via nasogastric tube. She also may require PEG tube placement. She may be a cand idate for [facility]. The patient is seen today 04/20/2022 in follow-up in the intensive care unit. She is currently laying on her right side in bed. Awake and alert. She is maintaining O2 saturations in the 90s on 3 L/m per nasal cannula. 0.9 normal saline at KVO. Staff reports her wound is clean and dry and intact. FMS remains in place. Dressings have been changed per orthopedics. Follow up wound cultures reveal no growth. Urine culture pending. Sputum culture reveals no growth. She remains with a nasogastric tube in place she is receiving Vital AF at 60 ML's per hour which is goal. White count 21.3. Hemoglobin 7.8. Sodium 146. Potassium 2.4. Bicarb 32. BUN 48. Creatinine 0.9. AST 52. ALT 44. She remains on antibiotics in the form of cefepime and daptomycin along with Eraxis. She is continued on Lovenox for DVT prophylaxis. She is on Lasix 80 mg IV every 12 hours per cardiology. Remains in a -885 ML's balance. Objective - Vital Signs Vital signs: Vital Signs Temp 97.8 F 04/19/22 20:00 Pulse 90 04/19/22 19:00 Resp 17 04/19/22 20:00 BP 134/119 04/19/22 20:00 Pulse Ox 93 L 04/19/22 20:02 FiO2 40 04/16/22 14:00 Intake & Output 04/19/22 04/20/22 04/20/22 18:59 06:59 18:59 Intake Total 862.5 1209 Output Total 1465 1375 Balance -602.5 -166 Weight 132 kg Intake: IV 220 309 Anidulafungin 100 mg In 100 Sodium Chloride 0.9% 100 ml @ 84 mls/hr IVPB DAILY [facility] Rx#:[id number] Pressure Bag 30 9 Sodium Chloride 0.9% 1, 90 300 000 ml @ 20 mls/hr IV . Q24H [facility] Rx#:[id number] Intake, IV Titration 12.5 Amount Cefepime 1 gm In Sodium 12.5 Chloride 0.9% 50 ml @ 12. 5 mls/hr IVPB Q8HR [facility] Rx #:[id number] Tube Feeding 540 900 Other 90 Output: Urine 765 1375 Stool 700 Other: Voiding Method Indwelling Catheter Indwelling Catheter ABP, PAP, CO, CI - Last Documented Arterial Blood Pressure 222/214 - Exam GENERAL EXAM: Awake, alert, morbidly obese, 71-year-old female, on 2 L nasal cannula, fairly comfortable in no apparent distress. HEAD: Normocephalic. EYES: Normal reaction of pupils, equal size. NOSE: Naso gastric tube in place. Clear with pink turbinates. THROAT: No erythema or exudates. NECK: No masses, no JVD. CHEST: Healing large hematoma and edema of the right breast LUNGS: Equal air entry with crackles in the posterior bases. Diminished right base. CVS: S1 and S2 normal with no audible murmur, irregular rhythm. ABDOMEN: Obese, unable to appreciate organomegaly, normal bowel sounds, no guarding or rigidity. SPINE: Surgical dressing dry and intact. SKIN: Old ecchymosis noted over the right breast and chest area. CENTRAL NERVOUS SYSTEM: No focal deficits, tone is normal in all 4 extremities. EXTREMITIES: There is 1-2+ peripheral edema. No clubbing, no cyanosis. Peripheral pulses are intact. - Labs CBC & Chem 7: 04/20/22 08:16 04/20/22 07:05 Labs: Abnormal Lab Results - Last 24 Hours (Table) 04/19/22 04/19/22 04/19/22 Range/Units 05:15 11:37 15:35 WBC 16.7 H (3.8-10.6) k/uL RBC (3.80-5.40) m/uL Hgb (11.4-16.0) gm/dL Hct (34.0-46.0) % RDW (11.5-15.5) % Plt Count (150-450) k/uL Neutrophils # (Manual) 13.50 H (1.3-7.7) k/uL Myelocytes # (Manual) 0.33 H (0) k/uL Nucleated RBCs 7 H (0-0) /100 WBC Macrocytosis Sodium (137-145) mmol/L Potassium (3.5-5.1) mmol/L Chloride (98-107) mmol/L Carbon Dioxide (22-30) mmol/L BUN (7-17) mg/dL Glucose (74-99) mg/dL POC Glucose (mg/dL) 194 H (70-110) mg/dL Calcium (8.4-10.2) mg/dL AST (14-36) U/L ALT (4-34) U/L C-Reactive Protein (<1.0) mg/dL Total Protein (6.3-8.2) g/dL Albumin (3.5-5.0) g/dL Urine Appearance Cloudy H (Clear) Urine Protein 1+ H (Negative) Urine Blood Large H (Negative) Urine WBC 10 H (0-5) /hpf Amorphous Sediment Occasional H (None) /hpf Urine Bacteria Rare H (None) /hpf Hyaline Casts 31 H (0-2) /lpf Urine Mucus Rare H (None) /hpf 04/19/22 04/19/22 04/20/22 Range/Units 18:29 23:27 06:05 WBC (3.8-10.6) k/uL RBC (3.80-5.40) m/uL Hgb (11.4-16.0) gm/dL Hct (34.0-46.0) % RDW (11.5-15.5) % Plt Count (150-450) k/uL Neutrophils # (Manual) (1.3-7.7) k/uL Myelocytes # (Manual) (0) k/uL Nucleated RBCs (0-0) /100 WBC Macrocytosis Sodium (137-145) mmol/L Potassium (3.5-5.1) mmol/L Chloride (98-107) mmol/L Carbon Dioxide (22-30) mmol/L BUN (7-17) mg/dL Glucose (74-99) mg/dL POC Glucose (mg/dL) 172 H 188 H 163 H (70-110) mg/dL Calcium (8.4-10.2) mg/dL AST (14-36) U/L ALT (4-34) U/L C-Reactive Protein (<1.0) mg/dL Total Protein (6.3-8.2) g/dL Albumin (3.5-5.0) g/dL Urine Appearance (Clear) Urine Protein (Negative) Urine Blood (Negative) Urine WBC (0-5) /hpf Amorphous Sediment (None) /hpf Urine Bacteria (None) /hpf Hyaline Casts (0-2) /lpf Urine Mucus (None) /hpf 04/20/22 04/20/22 04/20/22 Range/Units 07:05 07:05 08:16 WBC 21.3 H (3.8-10.6) k/uL RBC 2.48 L (3.80-5.40) m/uL Hgb 5.1 L* D 7.8 L D (11.4-16.0) gm/dL Hct 16.2 L* 24.5 L (34.0-46.0) % RDW 26.3 H (11.5-15.5) % Plt Count 109 L (150-450) k/uL Neutrophils # (Manual) (1.3-7.7) k/uL Myelocytes # (Manual) (0) k/uL Nucleated RBCs (0-0) /100 WBC Macrocytosis Marked A Sodium 146 H (137-145) mmol/L Potassium 3.4 L (3.5-5.1) mmol/L Chloride 117 H (98-107) mmol/L Carbon Dioxide 32 H (22-30) mmol/L BUN 48 H (7-17) mg/dL Glucose 154 H (74-99) mg/dL POC Glucose (mg/dL) (70-110) mg/dL Calcium 6.7 L (8.4-10.2) mg/dL AST 52 H (14-36) U/L ALT 44 H (4-34) U/L C-Reactive Protein 3.4 H (<1.0) mg/dL Total Protein 2.6 L (6.3-8.2) g/dL Albumin 1.1 L (3.5-5.0) g/dL Urine Appearance (Clear) Urine Protein (Negative) Urine Blood (Negative) Urine WBC (0-5) /hpf Amorphous Sediment (None) /hpf Urine Bacteria (None) /hpf Hyaline Casts (0-2) /lpf Urine Mucus (None) /hpf Microbiology - Last 24 Hours (Table) 04/19/22 15:00 Urine Culture - Preliminary Urine,Voided 04/14/22 12:00 Anaerobic Culture - Final Back Patsy albicans 04/14/22 16:17 Anaerobic Culture - Final Back 04/14/22 08:45 Blood Culture - Preliminary Blood No Growth after 120 hours 04/14/22 12:00 Gram Stain - Final Back Wound Culture - Final 04/14/22 16:17 Gram Stain - Final Back Wound Culture - Final Assessment and Plan Assessment: Acute lumbar wound dehiscence, status post irrigation and excisional debridement of the lumbar spine 30 x 20 x 15 cm with complex wound closure for layered fashion on 04/14/2022, initially on the mechanical ventilator, extubated 04/16/2022 Lumbar decompression/fusion 02/24/2022, developed some foul-smelling serous sanguinous drainage. On 03/09/2022 she did require exploration and washout with dural repairs due to falls. Acute sepsis with hypotension secondary to urinary tract infection with Enterobacter, improved and off norepinephrine. Bacteremia secondary to wound infection positive for pseudomonas aeruginosa, Enterococcus faecalis, Patsy albicans from 03/26/2022. Follow-up cultures from 04/14/2022 reveal no growth. Currently on Eraxis, daptomycin, cefepime, Atrial flutter fibrillation/flutter with a rapid ventricular currently in sinus rhythm Dysphagia with continued inadequate swallow function. NG tube remains in place. Being nourished with vital AF. May require PEG tube placement. Acute renal failure, recovered, current creatinine 0.98 Hypokalemia, current potassium 3.4 Hyponatremia, recovered current sodium 146 Leukocytosis, current white count 21.3 Acute anemia with a hemoglobin dropped to 5.4. The patient had developed a large right sided chest wall/breast hematoma suspect secondary to fall on 03/06/2022. The patient has now received 13 units of packed red blood cells and her hemoglobin this morning was 7.8. Cardiac arrest, brief pulseless electrical activity encountered in the operating room 02/24/2022 exact etiology is not clear. Acute hypoxic/hypercapnic respiratory failure secondary to cardiac arrest/pulseless electrical activity, patient was extubated Morbid obesity. BMI of 45.6 History of right hemidiaphragm paralysis History of right-sided breast cancer, previous lumpectomy Chronic atrial fibrillation/flutter, anticoagulated with Xarelto currently on hold due to GI bleed, anemia and recurrent surgery Dyslipidemia Benign essential hypertension Acute depression secondary to above, seen by psychiatry, initiated on Wellbutrin Poor overall functional performance based on the above-mentioned multiple comorbidities and may require long-term acute care facility Plan: The patient was seen and evaluated Medications and labs reviewed Continued on Eraxis, cefepime, daptomycin Continues with inadequate swallow function Being nourished with vital AF via nasogastric tube Plan is for possible PEG tube placement 04/21/2022 Lovenox for DVT prophylaxis Xarelto remains on hold Prognosis remains quite guarded Consult to [facility] Could be transferred to the regular medical floor DO NOT RESUSCITATE/DO NOT INTUBATE CODE STATUS We will continue to follow I have personally seen and examined the patient, performed the documentation and the assessment and plan as written. Number of minutes spent on the visit: 10.
[2022-04-20 09:56] LABS: Band Neutrophils % 1 %; Lymphocytes # (M) 2.59 k/uL (1.0-4.8); Metamyelocytes % 1 %; Myelocytes % 1 %; Neutrophils % (M) 83 %; Nucleated Red Blood Cells 7 /100 WBC (0-0); Total Cells Counted 200; WBC 19.9 k/uL (3.8-10.6)
[2022-04-20 09:57] LABS: Mixed Population RBC Present; Polychromasia Present
[2022-04-20 09:58] LABS: Toxic Granulation Present
--- NOTE | 2022-04-20 10:29 | P.PN ---
Subjective Progress Note Date: 04/20/22 Principal diagnosis: cardiac arrest Hospital Course: Patient is a 71 yo CF with a hx of A fib s/p ablation, GERD, hypertension, dyslipidemia, and right diaphragmatic paralysis who presented for T10 to Pelvis decompression and fusion with revision. Course complicated by significant blood loss and cardiac arrest. During the case she developed A. fib with RVR and then quickly transitioned into bradycardia with a low end-tidal CO2. Total down time was less than 5 minutes. Patient subsequently admitted to the ICU. She was extubated on 02/25. She continued to do well but struggled with pain. She was downgraded from ICU on 03/03. On 03/06/22 patient was noted to have a significant drop in hemoglobin from 10.0 down to 7.5 and upon reevaluation on 03/07 was found to have hemoglobin of 5.4, patient required multiple transfusions. She underwent a CT abdomen and pelvis and was found to have a large right chest hematoma dilated small bowel concerning for ileus. Patient was evaluated by cardiothoracic surgery and they recommended conservative management. On 03/07, patient was noted to be hypotensive with elevated WBC count of 42.3, with worsening renal function and hyperkalamia. She was transferred back to the ICU for septic shock. Blood and urine cultures were obtained and positive for Enterobacter. Infectious disease was consulted. Patient remained on IV antibiotics. Patient was later weaned off of vasopressors and again transferred out of the ICU. Patient was started on Lasix for treatment of acute on chronic systolic heart failure with EF of 35-40%. Amiodarone and metoprolol for atrial fibrillation with RVR sodium bicarb for treatment of metabolic acidosis. Pt's Xarelto remain on hold at that time. Patient was evaluated by PMR and was not a candidate for inpatient rehab. She has been cleared by orthopedic surgery to start working with physical therapy. On 03/26/22 patient was again found to have elevating leukocytosis and repeat Wound cultures were obtained. Wound cultures were positive for pseudomonas aeruginosa, enterococcus fasciculus, and Patsy albicans. Patient was continued on IV antibiotics. Overnight on 03/28/22 patient again developed episodes of melena and at that time Dr. Arce, general surgeon was re-consulted. CT abdomen and pelvis revealing bilateral hydronephrosis unable to rule out obstructive etiology, concerns for fecal impaction, and persistent previously known right anterior chest wall hematoma. General surgery following and reevaluated patient secondary to concerns of fecal impaction and started patient on bowel regimen. Wiley catheter was inserted secondary to bilateral hydronephrosis and patient was evaluated by urologist recommending continuation of Wiley catheter as bilateral hydronephrosis is believed to be resulting secondary to urinary retention. Patient had episodes of hematochezia along with large blood clot and was transferred back to the ICU. Had bedside manual disimpaction with general surgery. Also has a posterior anal fissure could likely cause of current bleeding. Hemoglobin continued to down trend. Requiring further blood transfusions. Plan was to transfer the patient to an outside facility for GI services. However, patient remained hemodynamically stable, transfer was canceled. Patient returned to the OR on 04/14 for revision and washout, slight was dehisced but did not appear to be infected. OR cultures still pending. Due to prolonged hospitalization, patient has become extremely depressed and considering hospice care. Patient has been clinically improving since most recent surgery. Plan for optimizing nutrition with likely PEG tube, if patient agreeable. Currently, the plan is to optimize her nutrition and sent patient to rehab. If patient fails rehab, family and patient will consider hospice care. Subjective: Patient seen and examined at bedside. No acute events overnight. Denies any significant pain. Currently has a rectal tube as well as wiley catheter in place. Pertinent positives and negatives as discussed above, a complete review of systems was performed and all other systems are negative. Vitals Signs Reviewed. General: no acute distress, appears at stated age, Derm: warm, dry. Patient in the supine position, Postsurgical dressing not able to examine Head: atraumatic, normocephalic, symmetric Eyes: EOMI, no lid lag, anicteric sclera Mouth: no lip lesion, moist membranes moist Cardiovascular: S1S2 regular, tachycardic, no murmur Lungs: Respirations even, regular, and unlabored on room air. Lungs clear to auscultation bilaterally , 2 L Ext: no gross muscle atrophy, 2+ pitting edema, no contractures Abd: Wiley catheter in place. Obese. Non tender to palpation, NG tube in place Neuro: Moving all 4 extremities Psych:: Patient with depressed affect, she is pleasant and cooperative. Assessment and Plan: Severe protein calorie malnutrition Poor nutritional intake Anasarca Dysphagia -NG tube in place -Possible PEG tube placement tomorrow, if patient agrees T10 to pelvis decompression with fusion Post-op pain -Management per primary admitting Orthopedic surgery team including DVT prophylaxis, pain management, wound/dressing care, weightbearing, and PT/OT . -Had a repeat washout and revision on 04/14 has slight was dehisced but did not appear infected. OR cultures growing patsy. Persistent leukocytosis Patsy UTI -OR cultures from 04/14, growing patsy -ID following -Currently on cefepime, daptomycin, and Eraxis Major depressive disorder -Psychiatry consulted -Currently patient is on Remeron 15 mg, Cymbalta 60 mg, Wellbutrin 150 mg GI bleeding - currently hemoglobin stable, HDS -Continue IV Protonix Atrial tachycardia/fibrillation Acute on chronic systolic heart failure -On amiodarone, metoprolol and IV Lasix (increased by cardiology today) -Cardiology following Hypokalemia - replete and monitor Recent medical problems this hospitalization: Cardiac arrest Acute blood loss anemia Right breast hematoma History of right Diaphragmatic paralysis Septic shock Enterobacter UTI with bacteremia Bilateral hydronephrosis Urinary retention Prerenal azotemia Hyponatremia Hypokalemia Metabolic acidosis Ischemic hepatitis Acute abdominal pain Fecal impaction Posterior anal fissure Thank you for allowing us to participate in the care of this pleasant patient. Do not hesitate to contact us with questions. Someone can be reached from the [facility] hospitalist group all hours of the day at [phone] or via [employer]. Objective - Vital Signs Vital signs: Vital Signs Temp 97.8 F 04/19/22 20:00 Pulse 90 04/19/22 19:00 Resp 17 04/19/22 20:00 BP 134/119 04/19/22 20:00 Pulse Ox 93 L 04/19/22 20:02 FiO2 40 04/16/22 14:00 Intake & Output 04/19/22 04/20/22 04/20/22 18:59 06:59 18:59 Intake Total 862.5 1209 Output Total 1465 1375 Balance -602.5 -166 Weight 132 kg Intake: IV 220 309 Anidulafungin 100 mg In 100 Sodium Chloride 0.9% 100 ml @ 84 mls/hr IVPB DAILY [facility] Rx#:[id number] Pressure Bag 30 9 Sodium Chloride 0.9% 1, 90 300 000 ml @ 20 mls/hr IV . Q24H [facility] Rx#:[id number] Intake, IV Titration 12.5 Amount Cefepime 1 gm In Sodium 12.5 Chloride 0.9% 50 ml @ 12. 5 mls/hr IVPB Q8HR [facility] Rx #:[id number] Tube Feeding 540 900 Other 90 Output: Urine 765 1375 Stool 700 Other: Voiding Method Indwelling Catheter Indwelling Catheter ABP, PAP, CO, CI - Last Documented Arterial Blood Pressure 222/214 - Labs CBC & Chem 7: 04/20/22 08:16 04/20/22 09:27 Labs: Abnormal Lab Results - Last 24 Hours (Table) 04/19/22 04/19/22 04/19/22 Range/Units 05:15 11:37 15:35 WBC 16.7 H (3.8-10.6) k/uL RBC (3.80-5.40) m/uL Hgb (11.4-16.0) gm/dL Hct (34.0-46.0) % RDW (11.5-15.5) % Plt Count (150-450) k/uL Neutrophils # (Manual) 13.50 H (1.3-7.7) k/uL Metamyelocytes # (Man) (0) k/uL Myelocytes # (Manual) 0.33 H (0) k/uL Nucleated RBCs 7 H (0-0) /100 WBC Macrocytosis ESR (0-20) mm/hr Sodium (137-145) mmol/L Potassium (3.5-5.1) mmol/L Chloride (98-107) mmol/L Carbon Dioxide (22-30) mmol/L BUN (7-17) mg/dL Glucose (74-99) mg/dL POC Glucose (mg/dL) 194 H (70-110) mg/dL Calcium (8.4-10.2) mg/dL AST (14-36) U/L ALT (4-34) U/L Alkaline Phosphatase (38-126) U/L C-Reactive Protein (<1.0) mg/dL Total Protein (6.3-8.2) g/dL Albumin (3.5-5.0) g/dL Urine Appearance Cloudy H (Clear) Urine Protein 1+ H (Negative) Urine Blood Large H (Negative) Urine WBC 10 H (0-5) /hpf Amorphous Sediment Occasional H (None) /hpf Urine Bacteria Rare H (None) /hpf Hyaline Casts 31 H (0-2) /lpf Urine Mucus Rare H (None) /hpf 04/19/22 04/19/22 04/20/22 Range/Units 18:29 23:27 06:05 WBC (3.8-10.6) k/uL RBC (3.80-5.40) m/uL Hgb (11.4-16.0) gm/dL Hct (34.0-46.0) % RDW (11.5-15.5) % Plt Count (150-450) k/uL Neutrophils # (Manual) (1.3-7.7) k/uL Metamyelocytes # (Man) (0) k/uL Myelocytes # (Manual) (0) k/uL Nucleated RBCs (0-0) /100 WBC Macrocytosis ESR (0-20) mm/hr Sodium (137-145) mmol/L Potassium (3.5-5.1) mmol/L Chloride (98-107) mmol/L Carbon Dioxide (22-30) mmol/L BUN (7-17) mg/dL Glucose (74-99) mg/dL POC Glucose (mg/dL) 172 H 188 H 163 H (70-110) mg/dL Calcium (8.4-10.2) mg/dL AST (14-36) U/L ALT (4-34) U/L Alkaline Phosphatase (38-126) U/L C-Reactive Protein (<1.0) mg/dL Total Protein (6.3-8.2) g/dL Albumin (3.5-5.0) g/dL Urine Appearance (Clear) Urine Protein (Negative) Urine Blood (Negative) Urine WBC (0-5) /hpf Amorphous Sediment (None) /hpf Urine Bacteria (None) /hpf Hyaline Casts (0-2) /lpf Urine Mucus (None) /hpf 04/20/22 04/20/22 04/20/22 Range/Units 07:05 07:05 08:16 WBC 19.9 H (3.8-10.6) k/uL RBC 2.48 L (3.80-5.40) m/uL Hgb 5.1 L* D 7.8 L D (11.4-16.0) gm/dL Hct 16.2 L* 24.5 L (34.0-46.0) % RDW 26.3 H (11.5-15.5) % Plt Count 109 L (150-450) k/uL Neutrophils # (Manual) 16.70 H (1.3-7.7) k/uL Metamyelocytes # (Man) 0.20 H (0) k/uL Myelocytes # (Manual) 0.20 H (0) k/uL Nucleated RBCs 7 H (0-0) /100 WBC Macrocytosis Marked A ESR 41 H (0-20) mm/hr Sodium 146 H (137-145) mmol/L Potassium 3.4 L (3.5-5.1) mmol/L Chloride 117 H (98-107) mmol/L Carbon Dioxide 32 H (22-30) mmol/L BUN 48 H (7-17) mg/dL Glucose 154 H (74-99) mg/dL POC Glucose (mg/dL) (70-110) mg/dL Calcium 6.7 L (8.4-10.2) mg/dL AST 52 H (14-36) U/L ALT 44 H (4-34) U/L Alkaline Phosphatase (38-126) U/L C-Reactive Protein 3.4 H (<1.0) mg/dL Total Protein 2.6 L (6.3-8.2) g/dL Albumin 1.1 L (3.5-5.0) g/dL Urine Appearance (Clear) Urine Protein (Negative) Urine Blood (Negative) Urine WBC (0-5) /hpf Amorphous Sediment (None) /hpf Urine Bacteria (None) /hpf Hyaline Casts (0-2) /lpf Urine Mucus (None) /hpf 04/20/22 Range/Units 09:27 WBC (3.8-10.6) k/uL RBC (3.80-5.40) m/uL Hgb (11.4-16.0) gm/dL Hct (34.0-46.0) % RDW (11.5-15.5) % Plt Count (150-450) k/uL Neutrophils # (Manual) (1.3-7.7) k/uL Metamyelocytes # (Man) (0) k/uL Myelocytes # (Manual) (0) k/uL Nucleated RBCs (0-0) /100 WBC Macrocytosis ESR (0-20) mm/hr Sodium 149 H (137-145) mmol/L Potassium 3.3 L (3.5-5.1) mmol/L Chloride 116 H (98-107) mmol/L Carbon Dioxide 32 H (22-30) mmol/L BUN 50 H (7-17) mg/dL Glucose 169 H (74-99) mg/dL POC Glucose (mg/dL) (70-110) mg/dL Calcium 7.2 L (8.4-10.2) mg/dL AST 50 H (14-36) U/L ALT 57 H (4-34) U/L Alkaline Phosphatase 149 H (38-126) U/L C-Reactive Protein 4.3 H (<1.0) mg/dL Total Protein 4.2 L (6.3-8.2) g/dL Albumin 1.9 L (3.5-5.0) g/dL Urine Appearance (Clear) Urine Protein (Negative) Urine Blood (Negative) Urine WBC (0-5) /hpf Amorphous Sediment (None) /hpf Urine Bacteria (None) /hpf Hyaline Casts (0-2) /lpf Urine Mucus (None) /hpf Microbiology - Last 24 Hours (Table) 04/19/22 15:00 Urine Culture - Preliminary Urine,Voided 04/14/22 12:00 Anaerobic Culture - Final Back Patsy albicans 04/14/22 16:17 Anaerobic Culture - Final Back 04/14/22 08:45 Blood Culture - Preliminary Blood No Growth after 120 hours 04/14/22 12:00 Gram Stain - Final Back Wound Culture - Final 04/14/22 16:17 Gram Stain - Final Back Wound Culture - Final
[2022-04-20] MEDS: buPROPion 75 MG TAB PO SCH ×2 (10:38→11:51)
[2022-04-20] MEDS: DULoxetine HCL 60 MG CAPSULE.DR PO SCH (10:38)
--- NOTE | 2022-04-20 10:40 | P.PN ---
Subjective Progress Note Date: 04/20/22 CHIEF COMPLAINT: Spinal surgery HISTORY OF PRESENT ILLNESS: Patient reports no abdominal pain. No blood in the stools. She is receiving tube feeds through the NG tube. She is tolerating tube feeds. She's been seen by speech therapy and reports that patient is still very weak. And they would like to proceed with a modified barium swallow. Patient does have FMS still in place. Stools are brown. Initial hemoglobin this morning was 5.1 labs were redrawn and actual hemoglobin was 7.8. Afebrile. WBC is up from 16-19 hemoglobin 7.8 platelets 109 sodium was 149 potassium 3.3 creatinine 0.97 stool for C. diff negative. Cardiology started patient on IV Lasix PHYSICAL EXAM: VITAL SIGNS: Reviewed. GENERAL: Well-developed in no acute distress. HEENT: No sclera icterus. Extraocular movements grossly intact. Moist buccal mucosa. Head is atraumatic, normocephalic. ABDOMEN: Soft. Obese. Nondistended. Nontender NEUROLOGIC: Alert and orientated 3. Answer questions appropriately. ASSESSMENT: 1. Acute GI bleed 2. Posterior anal fissure with bleeding 3. Fecal impaction and constipation improved 4. Lumbar decompression/fusion and then with washout and dural repair 5. Cardiac arrest 6. EGD on 03/19/2022 that showed mild gastritis and esophagitis no active bleeding 7. Hypokalemia 8. Leukocytosis 9. Severe protein calorie malnutrition PLAN: -Further recommendations forthcoming per surgeon regarding possible PEG tube placement tomorrow -Potassium being replaced -Continue simethicone gas drops -Continue to monitor hemoglobin -Continue monitoring for any signs or symptoms of bleeding -Continue PPI -DVT prophylaxis Lovenox [facility] note has been reviewed by physician. Signing provider agrees with the documented findings, assessment, and plan of care. I have personally seen and examined the patient, reviewed the [employer] /PAs history, exam and MDM and agree with the assessment and plan as written. Based on total visit time, I have performed more than 50% of the visit. As above: Patient is lying on her left side in bed. She appears more alert today. Tolerating tube feeds. Spoke with family by phone. They remain interested in placing PEG tube tomorrow. We'll reassess in the morning but we'll tentatively schedule for EGD with PEG tube placement. Risks of bleeding, infection, inability to place catheter, bowel injury reviewed. They understand and wish to proceed. Objective - Vital Signs Vital signs: Vital Signs Temp 97.8 F 04/19/22 20:00 Pulse 90 04/19/22 19:00 Resp 17 04/19/22 20:00 BP 134/119 04/19/22 20:00 Pulse Ox 93 L 04/19/22 20:02 FiO2 40 04/16/22 14:00 Intake & Output 04/19/22 04/20/22 04/20/22 18:59 06:59 18:59 Intake Total 862.5 1209 Output Total 1465 1375 Balance -602.5 -166 Weight 132 kg Intake: IV 220 309 Anidulafungin 100 mg In 100 Sodium Chloride 0.9% 100 ml @ 84 mls/hr IVPB DAILY [facility] Rx#:[id number] Pressure Bag 30 9 Sodium Chloride 0.9% 1, 90 300 000 ml @ 20 mls/hr IV . Q24H [facility] Rx#:[id number] Intake, IV Titration 12.5 Amount Cefepime 1 gm In Sodium 12.5 Chloride 0.9% 50 ml @ 12. 5 mls/hr IVPB Q8HR [facility] Rx #:[id number] Tube Feeding 540 900 Other 90 Output: Urine 765 1375 Stool 700 Other: Voiding Method Indwelling Catheter Indwelling Catheter ABP, PAP, CO, CI - Last Documented Arterial Blood Pressure 222/214 - Labs CBC & Chem 7: 04/20/22 08:16 04/20/22 09:27 Labs: Abnormal Lab Results - Last 24 Hours (Table) 04/19/22 04/19/22 04/19/22 Range/Units 05:15 11:37 15:35 WBC 16.7 H (3.8-10.6) k/uL RBC (3.80-5.40) m/uL Hgb (11.4-16.0) gm/dL Hct (34.0-46.0) % RDW (11.5-15.5) % Plt Count (150-450) k/uL Neutrophils # (Manual) 13.50 H (1.3-7.7) k/uL Metamyelocytes # (Man) (0) k/uL Myelocytes # (Manual) 0.33 H (0) k/uL Nucleated RBCs 7 H (0-0) /100 WBC Macrocytosis ESR (0-20) mm/hr Sodium (137-145) mmol/L Potassium (3.5-5.1) mmol/L Chloride (98-107) mmol/L Carbon Dioxide (22-30) mmol/L BUN (7-17) mg/dL Glucose (74-99) mg/dL POC Glucose (mg/dL) 194 H (70-110) mg/dL Calcium (8.4-10.2) mg/dL AST (14-36) U/L ALT (4-34) U/L Alkaline Phosphatase (38-126) U/L C-Reactive Protein (<1.0) mg/dL Total Protein (6.3-8.2) g/dL Albumin (3.5-5.0) g/dL Urine Appearance Cloudy H (Clear) Urine Protein 1+ H (Negative) Urine Blood Large H (Negative) Urine WBC 10 H (0-5) /hpf Amorphous Sediment Occasional H (None) /hpf Urine Bacteria Rare H (None) /hpf Hyaline Casts 31 H (0-2) /lpf Urine Mucus Rare H (None) /hpf 04/19/22 04/19/22 04/20/22 Range/Units 18:29 23:27 06:05 WBC (3.8-10.6) k/uL RBC (3.80-5.40) m/uL Hgb (11.4-16.0) gm/dL Hct (34.0-46.0) % RDW (11.5-15.5) % Plt Count (150-450) k/uL Neutrophils # (Manual) (1.3-7.7) k/uL Metamyelocytes # (Man) (0) k/uL Myelocytes # (Manual) (0) k/uL Nucleated RBCs (0-0) /100 WBC Macrocytosis ESR (0-20) mm/hr Sodium (137-145) mmol/L Potassium (3.5-5.1) mmol/L Chloride (98-107) mmol/L Carbon Dioxide (22-30) mmol/L BUN (7-17) mg/dL Glucose (74-99) mg/dL POC Glucose (mg/dL) 172 H 188 H 163 H (70-110) mg/dL Calcium (8.4-10.2) mg/dL AST (14-36) U/L ALT (4-34) U/L Alkaline Phosphatase (38-126) U/L C-Reactive Protein (<1.0) mg/dL Total Protein (6.3-8.2) g/dL Albumin (3.5-5.0) g/dL Urine Appearance (Clear) Urine Protein (Negative) Urine Blood (Negative) Urine WBC (0-5) /hpf Amorphous Sediment (None) /hpf Urine Bacteria (None) /hpf Hyaline Casts (0-2) /lpf Urine Mucus (None) /hpf 04/20/22 04/20/22 04/20/22 Range/Units 07:05 07:05 08:16 WBC 19.9 H (3.8-10.6) k/uL RBC 2.48 L (3.80-5.40) m/uL Hgb 5.1 L* D 7.8 L D (11.4-16.0) gm/dL Hct 16.2 L* 24.5 L (34.0-46.0) % RDW 26.3 H (11.5-15.5) % Plt Count 109 L (150-450) k/uL Neutrophils # (Manual) 16.70 H (1.3-7.7) k/uL Metamyelocytes # (Man) 0.20 H (0) k/uL Myelocytes # (Manual) 0.20 H (0) k/uL Nucleated RBCs 7 H (0-0) /100 WBC Macrocytosis Marked A ESR 41 H (0-20) mm/hr Sodium 146 H (137-145) mmol/L Potassium 3.4 L (3.5-5.1) mmol/L Chloride 117 H (98-107) mmol/L Carbon Dioxide 32 H (22-30) mmol/L BUN 48 H (7-17) mg/dL Glucose 154 H (74-99) mg/dL POC Glucose (mg/dL) (70-110) mg/dL Calcium 6.7 L (8.4-10.2) mg/dL AST 52 H (14-36) U/L ALT 44 H (4-34) U/L Alkaline Phosphatase (38-126) U/L C-Reactive Protein 3.4 H (<1.0) mg/dL Total Protein 2.6 L (6.3-8.2) g/dL Albumin 1.1 L (3.5-5.0) g/dL Urine Appearance (Clear) Urine Protein (Negative) Urine Blood (Negative) Urine WBC (0-5) /hpf Amorphous Sediment (None) /hpf Urine Bacteria (None) /hpf Hyaline Casts (0-2) /lpf Urine Mucus (None) /hpf 04/20/22 Range/Units 09:27 WBC (3.8-10.6) k/uL RBC (3.80-5.40) m/uL Hgb (11.4-16.0) gm/dL Hct (34.0-46.0) % RDW (11.5-15.5) % Plt Count (150-450) k/uL Neutrophils # (Manual) (1.3-7.7) k/uL Metamyelocytes # (Man) (0) k/uL Myelocytes # (Manual) (0) k/uL Nucleated RBCs (0-0) /100 WBC Macrocytosis ESR (0-20) mm/hr Sodium 149 H (137-145) mmol/L Potassium 3.3 L (3.5-5.1) mmol/L Chloride 116 H (98-107) mmol/L Carbon Dioxide 32 H (22-30) mmol/L BUN 50 H (7-17) mg/dL Glucose 169 H (74-99) mg/dL POC Glucose (mg/dL) (70-110) mg/dL Calcium 7.2 L (8.4-10.2) mg/dL AST 50 H (14-36) U/L ALT 57 H (4-34) U/L Alkaline Phosphatase 149 H (38-126) U/L C-Reactive Protein 4.3 H (<1.0) mg/dL Total Protein 4.2 L (6.3-8.2) g/dL Albumin 1.9 L (3.5-5.0) g/dL Urine Appearance (Clear) Urine Protein (Negative) Urine Blood (Negative) Urine WBC (0-5) /hpf Amorphous Sediment (None) /hpf Urine Bacteria (None) /hpf Hyaline Casts (0-2) /lpf Urine Mucus (None) /hpf Microbiology - Last 24 Hours (Table) 04/19/22 15:00 Urine Culture - Preliminary Urine,Voided 04/14/22 12:00 Anaerobic Culture - Final Back Patsy albicans 04/14/22 16:17 Anaerobic Culture - Final Back 04/14/22 08:45 Blood Culture - Preliminary Blood No Growth after 120 hours 04/14/22 12:00 Gram Stain - Final Back Wound Culture - Final 04/14/22 16:17 Gram Stain - Final Back Wound Culture - Final
[2022-04-20] MEDS: FUROSEMIDE 10 MG/ML 10 ML VIAL IV SCH ×2 (10:47→21:39)
[2022-04-20] MEDS: POTASSIUM BICARBONATE/CIT AC 20 MEQ TABLET.EFF NG-TUBE SCH ×2 (10:48→11:50)
[2022-04-20 12:01] LABS: Glucose,Whole Blood 181 mg/dL (70-110)
--- NOTE | 2022-04-20 14:53 | P.PN ---
Subjective Progress Note Date: 04/20/22 Patient is a 71-year-old female with a hx of A fib s/p ablation, GERD, hypertension, dyslipidemia, and right diaphragmatic paralysis who presented for T10 to Pelvis decompression and fusion with revision. Course complicated by significant blood loss. Patient was on vasopressors, also received TXA gtt. S he received 7 L of lactated Ringer's. She received 1 amp of sodium bicarb intaop. She also received albumin. Patient then had a cardiac arrest. During the case she developed A. fib with RVR and then quickly transitioned into bradycardia with a low end-tidal CO2. She received 0.4 of atropine and CPR was started. She received epinephrine 0.5. She achieved ROSC. Total down time was less than 5 minutes. She was extubated on 02/25. She continued to do well but struggled with pain. She was downgraded from ICU on 03/03. On 03/06/22 patient was noted to have a significant drop in hemoglobin from 10.0 down to 7.5 and upon reevaluation on 03/07 was found to have hemoglobin of 5.4, patient required multiple transfusions. She has received a total of 7 units PRBCs and 1 unit of platelets. She underwent a CT abdomen and pelvis and was found to have a large right chest hematoma dilated small bowel concerning for ileus. Patient was evaluated by cardiothoracic surgery and they recommended conservative management. On 03/07, patient was noted to be hypotensive with elevated WBC count of 42.3, with worsening renal function and hyperkalamia. Patient was treated with NS bolus, IV insulin/D50, Albuterol and sodium bicarbonate. She was transferred back to the ICU for septic shock requiring Levophed. Patient was started on Vancomycin and Cefepime. Blood and urine cultures were obtained and positive for Enterobacter. Infectious disease was consulted and patient was continued on Cefepime for treatment of Enterobacter UTI with secondary bacteremia and Vancomycin was discontinued. Patient was later weaned off of vasopressors and again transferred out of the ICU. Patient was started on Lasix for treatment of acute on chronic systolic heart failure with EF of 35-40%. Patient continued on Protonix for GI prophylaxis, amiodarone and metoprolol for atrial fibrillation with RVR sodium bicarb for treatment of metabolic acidosis. Pt's Xarelto remains hold at this time. Patient was evaluated by PMR and is currently not a candidate for inpatient rehab. She has been cleared by orthopedic surgery to start working with physical therapy. On 03/26/22 patient was again found to have elevating leukocytosis and repeat Wound cultures were obtained. Wound cultures were positive for pseudomonas aeruginosa, enterococcus fasciculus, and Patsy albicans. Patient to continue with Zosyn per culture and sensitivity report and as recommended by infectious disease as this may be contamination/colonization however patient is a high risk of infection so we will continue with empiric antibiotic therapy. Overnight on 03/28/22 patient again developed episodes of melena and at that time Dr. Arce, general surgeon was re-consulted. CT abdomen and pelvis revealing bilateral hydronephrosis unable to rule out obstructive etiology, concerns for fecal impaction, and persistent previously known right anterior chest wall hematoma. General surgery following and reevaluated patient secondary to concerns of fecal impaction and started patient on lactulose. Warren catheter was inserted secondary to loki ateral hydronephrosis and patient was evaluated by urologist recommending continuation of Warren catheter as bilateral hydronephrosis is believed to be resulting secondary to urinary retention. On the evening of 04/03/21 patient with continued atrial tachycardia and hypotension and unable to take metoprolol secondary to low blood pressures. Patient had episode of hematochezia along with large blood clot and was transferred back to the ICU. Had bedside manual disimpaction with general surgery. Also has a posterior anal fissure could likely because of current bleeding. Which required further blood transfusions. On a bowel regimen. Hemoglobin now stable at 8.4. She continues with inadequate swallow function. She is continued being nourished with vital AF via nasogastric tube. She also may require PEG tube placement. She may be a candidate for select specialty. 04/19 The patient was examined in the ICU. The nurse and nursing associate got the patient up to a chair with a Ninfa lift. She is hemodynamically stable. A psychiatric evaluation was completed yesterday. 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 The patient was alert and oriented times 3 for the evaluation. [employer] COUNTER ATTENDANT has been following the patient for dysphasia. The patient continues to have been inadequate swallow function. The patient currently has a nasogastric tube with tube feeding infusing. General surgery has been consult for a possible PEG tube placement. The patient is confused today. She was hallucinating and calling for her dog, Juan, who she thought was in the room. She is lethargic and struggles to stay awake. Her speech was difficult to understand. She stated she does not feel like she is getting any better. She thinks it is mean gruel to keep her here just lying around. She states that is painful when the staff repositions her. Her sister, Destini, is at the bedside. She continues to encourage the patient and tells her that she is making progress. The patient stated that she thinks everyone is lying to her and she is not getting any better. The patient began to cry stating that she wanted her kids. Destini states that her kids come to visit her every today. Apparently there was a family discussion yesterday and they decided and I giving up on her yet. They believe she is getting better and would like to send her to rehab to get stronger. If rehab fails, then they will consider hospice. Objective - Vital Signs Vital signs: Vital Signs Temp 97.8 F 04/19/22 20:00 Pulse 90 04/19/22 19:00 Resp 17 04/19/22 20:00 BP 134/119 04/19/22 20:00 Pulse Ox 93 L 04/19/22 20:02 FiO2 40 04/16/22 14:00 Intake & Output 04/19/22 04/20/22 04/20/22 18:59 06:59 18:59 Intake Total 862.5 1209 320 Output Total 1465 1375 200 Balance -602.5 -166 120 Weight 132 kg Intake: IV 220 309 80 Anidulafungin 100 mg In 100 Sodium Chloride 0.9% 100 ml @ 84 mls/hr IVPB DAILY [facility] Rx#:[id number] Cefepime 1 gm In Sodium 50 Chloride 0.9% 50 ml @ 12. 5 mls/hr IVPB Q8HR [facility] Rx #:[id number] Pressure Bag 30 9 Sodium Chloride 0.9% 1, 90 300 30 000 ml @ 20 mls/hr IV . Q24H [facility] Rx#:[id number] Intake, IV Titration 12.5 Amount Cefepime 1 gm In Sodium 12.5 Chloride 0.9% 50 ml @ 12. 5 mls/hr IVPB Q8HR [facility] Rx #:[id number] Tube Feeding 540 900 240 Other 90 Output: Urine 765 1375 200 Stool 700 Other: Voiding Method Indwelling Catheter Indwelling Catheter Indwelling Catheter ABP, PAP, CO, CI - Last Documented Arterial Blood Pressure 222/214 - Exam General: Well developed, well nourished. Chronically ill appearing HEENT: Head is atraumatic, normocephalic. CV: positive S1 and S2. No rubs or murmurs. Lungs: Scattered rhonchi throughout. Respirations labored, tachypenic, 2 LNC Abdomen/GI: Soft. Obese, NG tube in place with tube feeding : Warren catheter in place draining clear yellow urine Musculoskeletal/ Extremities: + Profound generalized weakness Vascular: 3+ peripheral edema Skin: Warm and dry Neurologic: Confused Psychiatric: Depressed - Labs CBC & Chem 7: 04/20/22 08:16 04/20/22 09:27 Labs: Abnormal Lab Results - Last 24 Hours (Table) 04/19/22 04/19/22 04/19/22 Range/Units 15:35 18:29 23:27 WBC (3.8-10.6) k/uL RBC (3.80-5.40) m/uL Hgb (11.4-16.0) gm/dL Hct (34.0-46.0) % RDW (11.5-15.5) % Plt Count (150-450) k/uL Neutrophils # (Manual) (1.3-7.7) k/uL Metamyelocytes # (Man) (0) k/uL Myelocytes # (Manual) (0) k/uL Nucleated RBCs (0-0) /100 WBC Macrocytosis ESR (0-20) mm/hr Sodium (137-145) mmol/L Potassium (3.5-5.1) mmol/L Chloride (98-107) mmol/L Carbon Dioxide (22-30) mmol/L BUN (7-17) mg/dL Glucose (74-99) mg/dL POC Glucose (mg/dL) 172 H 188 H (70-110) mg/dL Calcium (8.4-10.2) mg/dL AST (14-36) U/L ALT (4-34) U/L Alkaline Phosphatase (38-126) U/L C-Reactive Protein (<1.0) mg/dL Total Protein (6.3-8.2) g/dL Albumin (3.5-5.0) g/dL Urine Appearance Cloudy H (Clear) Urine Protein 1+ H (Negative) Urine Blood Large H (Negative) Urine WBC 10 H (0-5) /hpf Amorphous Sediment Occasional H (None) /hpf Urine Bacteria Rare H (None) /hpf Hyaline Casts 31 H (0-2) /lpf Urine Mucus Rare H (None) /hpf 04/20/22 04/20/22 04/20/22 Range/Units 06:05 07:05 08:16 WBC 19.9 H (3.8-10.6) k/uL RBC 2.48 L (3.80-5.40) m/uL Hgb 5.1 L* D 7.8 L D (11.4-16.0) gm/dL Hct 16.2 L* 24.5 L (34.0-46.0) % RDW 26.3 H (11.5-15.5) % Plt Count 109 L (150-450) k/uL Neutrophils # (Manual) 16.70 H (1.3-7.7) k/uL Metamyelocytes # (Man) 0.20 H (0) k/uL Myelocytes # (Manual) 0.20 H (0) k/uL Nucleated RBCs 7 H (0-0) /100 WBC Macrocytosis Marked A ESR 41 H (0-20) mm/hr Sodium (137-145) mmol/L Potassium (3.5-5.1) mmol/L Chloride (98-107) mmol/L Carbon Dioxide (22-30) mmol/L BUN (7-17) mg/dL Glucose (74-99) mg/dL POC Glucose (mg/dL) 163 H (70-110) mg/dL Calcium (8.4-10.2) mg/dL AST (14-36) U/L ALT (4-34) U/L Alkaline Phosphatase (38-126) U/L C-Reactive Protein (<1.0) mg/dL Total Protein (6.3-8.2) g/dL Albumin (3.5-5.0) g/dL Urine Appearance (Clear) Urine Protein (Negative) Urine Blood (Negative) Urine WBC (0-5) /hpf Amorphous Sediment (None) /hpf Urine Bacteria (None) /hpf Hyaline Casts (0-2) /lpf Urine Mucus (None) /hpf 04/20/22 04/20/22 Range/Units 09:27 11:59 WBC (3.8-10.6) k/uL RBC (3.80-5.40) m/uL Hgb (11.4-16.0) gm/dL Hct (34.0-46.0) % RDW (11.5-15.5) % Plt Count (150-450) k/uL Neutrophils # (Manual) (1.3-7.7) k/uL Metamyelocytes # (Man) (0) k/uL Myelocytes # (Manual) (0) k/uL Nucleated RBCs (0-0) /100 WBC Macrocytosis ESR (0-20) mm/hr Sodium 149 H (137-145) mmol/L Potassium 3.3 L (3.5-5.1) mmol/L Chloride 116 H (98-107) mmol/L Carbon Dioxide 32 H (22-30) mmol/L BUN 50 H (7-17) mg/dL Glucose 169 H (74-99) mg/dL POC Glucose (mg/dL) 181 H (70-110) mg/dL Calcium 7.2 L (8.4-10.2) mg/dL AST 50 H (14-36) U/L ALT 57 H (4-34) U/L Alkaline Phosphatase 149 H (38-126) U/L C-Reactive Protein 4.3 H (<1.0) mg/dL Total Protein 4.2 L (6.3-8.2) g/dL Albumin 1.9 L (3.5-5.0) g/dL Urine Appearance (Clear) Urine Protein (Negative) Urine Blood (Negative) Urine WBC (0-5) /hpf Amorphous Sediment (None) /hpf Urine Bacteria (None) /hpf Hyaline Casts (0-2) /lpf Urine Mucus (None) /hpf Microbiology - Last 24 Hours (Table) 04/14/22 08:45 Blood Culture - Final Blood No Growth after 144 hours 04/19/22 15:00 Urine Culture - Preliminary Urine,Voided 04/14/22 12:00 Anaerobic Culture - Final Back Patsy albicans 04/14/22 16:17 Anaerobic Culture - Final Back 04/14/22 12:00 Gram Stain - Final Back Wound Culture - Final 04/14/22 16:17 Gram Stain - Final Back Wound Culture - Final Assessment and Plan Plan: Summary/Goals - Spoke with the patient's son, Jayden today. Differences between hospice and palliative care were discussed. It was explained that I am an added layer of support for the patient and her family. He stated that he and his family had a meeting with Dr. Peña on Sunday. I told him that I have also talked with Dr. Peña and are there to support her. Jayden stated that she is slowly getting better. They family is not ready to give up on her. They understand that she has been through a lot. However, they believe she is just depressed from being in the hospital for so long and getting confused from the pain medications. He stated that she is not hooked up to life support, so there is no reason why she can not get better. It was explained to Jayden that there is still a long road ahead of her to recovery. He believes there is no reason why she can not walk again. Right now the nurses have to use a Ninfa lift to get her up out of bed. It will take a tremendous amount of therapy to get her strong enough to walk again. She has to have the motivation and determination to get better. Jayden described his mother as attention seeking since her . The family and the patient agreed on giving her two more weeks to show an improvement. They have spoken with the foster care case manager, Thom, and have agreed to send her to select specialty eventually. Recommendations - SARAI with palliative care Advanced Directives - none on file Code Status - DO NOT RESUSCITATE Thank you for this consultation Belia Scott [facility] Palliative Care Spectralink [phone] Email: [email or web address] Time with Patient: Greater than 30
[2022-04-20 17:48] LABS: Glucose,Whole Blood 201 mg/dL (70-110)
--- NOTE | 2022-04-20 21:14 | P.PN ---
Subjective Progress Note Date: 04/20/22 Principal diagnosis: UTI and bacteremia Patient is a 71-year-old female with a past medical history difficult for atrial fibrillation flutter hypertension hyperlipidemia hypothyroidism right breast cancer electively admitted to the hospital on 02/24/2022 for T10 to lumb ar spine revision decompression and posterior lateral interbody fusion, patient did have a episode of hypotension and elevated white count requiring admission to the ICU patient did have Enterobacter urinary tract infection and bacteremia and patient did have exploration of the thoracolumbar incision completed on 03/09/2022 with apparently no evidence of any abscess, patient subsequently did have dehiscence of the lower lumbar incision and a low-grade fever on 04/14/2022 for the patient was taken back to the OR on 04/14/2022 status post washout and closure of the wound. On today's evaluation that is 04/20/2022 the patient continues to be afebrile, patient is breathing comfortably on 2 L nasal cannula, the patient is hemodynamically stable not requiring any pressor support, the patient still have the NG and possible plan for PEG tube tomorrow is still have the rectal tube but no worsening output patient did not provide any history Objective - Vital Signs Vital signs: Vital Signs Temp 97.8 F 04/19/22 20:00 Pulse 90 04/19/22 19:00 Resp 17 04/19/22 20:00 BP 134/119 04/19/22 20:00 Pulse Ox 93 L 04/19/22 20:02 FiO2 40 04/16/22 14:00 Intake & Output 04/19/22 04/20/22 04/20/22 18:59 06:59 18:59 Intake Total 862.5 1209 320 Output Total 1465 1375 200 Balance -602.5 -166 120 Weight 132 kg Intake: IV 220 309 80 Anidulafungin 100 mg In 100 Sodium Chloride 0.9% 100 ml @ 84 mls/hr IVPB DAILY [facility] Rx#:[id number] Cefepime 1 gm In Sodium 50 Chloride 0.9% 50 ml @ 12. 5 mls/hr IVPB Q8HR [facility] Rx #:[id number] Pressure Bag 30 9 Sodium Chloride 0.9% 1, 90 300 30 000 ml @ 20 mls/hr IV . Q24H [facility] Rx#:[id number] Intake, IV Titration 12.5 Amount Cefepime 1 gm In Sodium 12.5 Chloride 0.9% 50 ml @ 12. 5 mls/hr IVPB Q8HR [facility] Rx #:[id number] Tube Feeding 540 900 240 Other 90 Output: Urine 765 1375 200 Stool 700 Other: Voiding Method Indwelling Catheter Indwelling Catheter Indwelling Catheter ABP, PAP, CO, CI - Last Documented Arterial Blood Pressure 222/214 - Exam GENERAL DESCRIPTION: An elderly female lying in Bed in no distress RESPIRATORY SYSTEM: Unlabored breathing , decreased breath sounds at bases HEART: S1 S2 regular rate and rhythm , ABDOMEN: Soft , no tenderness Thoracolumbar incision is currently dressed no drainage patient did have a stage II sacral pressure ulcer but no cellulitis EXTREMITIES: Diffuse swelling bilateral lower extremity 1 - Labs CBC & Chem 7: 04/20/22 08:16 04/20/22 16:36 Labs: Abnormal Lab Results - Last 24 Hours (Table) 04/19/22 04/19/22 04/19/22 Range/Units 05:15 15:35 18:29 WBC 16.7 H (3.8-10.6) k/uL RBC (3.80-5.40) m/uL Hgb (11.4-16.0) gm/dL Hct (34.0-46.0) % RDW (11.5-15.5) % Plt Count (150-450) k/uL Neutrophils # (Manual) 13.50 H (1.3-7.7) k/uL Metamyelocytes # (Man) (0) k/uL Myelocytes # (Manual) 0.33 H (0) k/uL Nucleated RBCs 7 H (0-0) /100 WBC Macrocytosis ESR (0-20) mm/hr Sodium (137-145) mmol/L Potassium (3.5-5.1) mmol/L Chloride (98-107) mmol/L Carbon Dioxide (22-30) mmol/L BUN (7-17) mg/dL Glucose (74-99) mg/dL POC Glucose (mg/dL) 172 H (70-110) mg/dL Calcium (8.4-10.2) mg/dL AST (14-36) U/L ALT (4-34) U/L Alkaline Phosphatase (38-126) U/L C-Reactive Protein (<1.0) mg/dL Total Protein (6.3-8.2) g/dL Albumin (3.5-5.0) g/dL Urine Appearance Cloudy H (Clear) Urine Protein 1+ H (Negative) Urine Blood Large H (Negative) Urine WBC 10 H (0-5) /hpf Amorphous Sediment Occasional H (None) /hpf Urine Bacteria Rare H (None) /hpf Hyaline Casts 31 H (0-2) /lpf Urine Mucus Rare H (None) /hpf 04/19/22 04/20/22 04/20/22 Range/Units 23:27 06:05 07:05 WBC (3.8-10.6) k/uL RBC (3.80-5.40) m/uL Hgb 5.1 L* D (11.4-16.0) gm/dL Hct 16.2 L* (34.0-46.0) % RDW (11.5-15.5) % Plt Count (150-450) k/uL Neutrophils # (Manual) (1.3-7.7) k/uL Metamyelocytes # (Man) (0) k/uL Myelocytes # (Manual) (0) k/uL Nucleated RBCs (0-0) /100 WBC Macrocytosis ESR (0-20) mm/hr Sodium (137-145) mmol/L Potassium (3.5-5.1) mmol/L Chloride (98-107) mmol/L Carbon Dioxide (22-30) mmol/L BUN (7-17) mg/dL Glucose (74-99) mg/dL POC Glucose (mg/dL) 188 H 163 H (70-110) mg/dL Calcium (8.4-10.2) mg/dL AST (14-36) U/L ALT (4-34) U/L Alkaline Phosphatase (38-126) U/L C-Reactive Protein (<1.0) mg/dL Total Protein (6.3-8.2) g/dL Albumin (3.5-5.0) g/dL Urine Appearance (Clear) Urine Protein (Negative) Urine Blood (Negative) Urine WBC (0-5) /hpf Amorphous Sediment (None) /hpf Urine Bacteria (None) /hpf Hyaline Casts (0-2) /lpf Urine Mucus (None) /hpf 04/20/22 04/20/2204/20/23 Range/Units 08:16 09:27 11:59 WBC 19.9 H (3.8-10.6) k/uL RBC 2.48 L (3.80-5.40) m/uL Hgb 7.8 L D (11.4-16.0) gm/dL Hct 24.5 L (34.0-46.0) % RDW 26.3 H (11.5-15.5) % Plt Count 109 L (150-450) k/uL Neutrophils # (Manual) 16.70 H (1.3-7.7) k/uL Metamyelocytes # (Man) 0.20 H (0) k/uL Myelocytes # (Manual) 0.20 H (0) k/uL Nucleated RBCs 7 H (0-0) /100 WBC Macrocytosis Marked A ESR 41 H (0-20) mm/hr Sodium 149 H (137-145) mmol/L Potassium 3.3 L (3.5-5.1) mmol/L Chloride 116 H (98-107) mmol/L Carbon Dioxide 32 H (22-30) mmol/L BUN 50 H (7-17) mg/dL Glucose 169 H (74-99) mg/dL POC Glucose (mg/dL) 181 H (70-110) mg/dL Calcium 7.2 L (8.4-10.2) mg/dL AST 50 H (14-36) U/L ALT 57 H (4-34) U/L Alkaline Phosphatase 149 H (38-126) U/L C-Reactive Protein 4.3 H (<1.0) mg/dL Total Protein 4.2 L (6.3-8.2) g/dL Albumin 1.9 L (3.5-5.0) g/dL Urine Appearance (Clear) Urine Protein (Negative) Urine Blood (Negative) Urine WBC (0-5) /hpf Amorphous Sediment (None) /hpf Urine Bacteria (None) /hpf Hyaline Casts (0-2) /lpf Urine Mucus (None) /hpf Microbiology - Last 24 Hours (Table) 04/14/22 08:45 Blood Culture - Final Blood No Growth after 144 hours 04/19/22 15:00 Urine Culture - Preliminary Urine,Voided 04/14/22 12:00 Anaerobic Culture - Final Back Patsy albicans 04/14/22 16:17 Anaerobic Culture - Final Back 04/14/22 12:00 Gram Stain - Final Back Wound Culture - Final 04/14/22 16:17 Gram Stain - Final Back Wound Culture - Final Assessment and Plan (1) Sepsis Current Visit: Yes Status: Acute Code(s): A41.9 - SEPSIS, UNSPECIFIED ORGANISM SNOMED Code(s): 03971994 Plan: 1-patient with a cath associated UTI urine has been positive for Patsy albicans, patient to continue with Eraxis , 2patient with evidence of surgical wound dehiscence of the lumbar incision in this patient who is status post surgical debridement and closure of the wound along with deep culture which currently growing Patsy, the patient is covered with cefepime Eraxis and daptomycin patient did have worsening white count, stool for C. diff is negative repeat a UA culture and blood cultures are pending. Will add Flagyl repeat a CBC tomorrow Time with Patient: Less than 30
[2022-04-20] MEDS: MELATONIN 3 MG TABLET PO SCH (21:44)
[2022-04-20] MEDS: MIRTAZAPINE 15 MG TAB PO SCH (21:45)
[2022-04-20 21:58] LABS: Glucose,Whole Blood 165 mg/dL (70-110)
[2022-04-20] MEDS ORDERED: GLYCOPYRROLATE 0.2 MG/ML 2 ML VIAL IVP ONE (23:01)
[2022-04-20 23:17] VITALS: TEMP 98.4
[2022-04-20] MEDS: METOPROLOL TARTRATE 5 MG/5 ML VIAL IVP ONE ×2 (23:17→23:59)
[2022-04-20] MEDS: POTASSIUM CHLORIDE 10 MEQ in WATER FOR INJECTION 1 100ML.BAG IVPB SCH (23:28)
[2022-04-21] MEDS: CEFEPIME 2 GM in SODIUM CHLORIDE 0.9% 100 ML IVPB SCH (00:01)
[2022-04-21] MEDS: metroNIDAZOLE-NS PMX 500 MG in SALINE 1 100ML.BAG IVPB SCH ×3 (01:10→15:34)
[2022-04-21] MEDS: POTASSIUM CHLORIDE 10 MEQ in WATER FOR INJECTION 1 100ML.BAG IVPB SCH (01:10)
[2022-04-21] MEDS: INSULIN ASPART (NovoLOG) 100 UNIT/ML VIAL SQ SCH ×3 (01:16→11:50)
[2022-04-21 01:17] LABS: Glucose,Whole Blood 157 mg/dL (70-110)
[2022-04-21] MEDS: ACETAMINOPHEN TAB 500 MG TAB PO SCH ×3 (01:58→11:49)
[2022-04-21] MEDS: SODIUM CHLORIDE 0.9% 1,000 ML IV SCH (02:02)
[2022-04-21 05:54] LABS: Glucose,Whole Blood 125 mg/dL (70-110)
[2022-04-21] MEDS: MIDODRINE 5 MG TAB PO SCH ×2 (06:16→11:50)
[2022-04-21] MEDS: LEVOTHYROXINE 88 MCG TAB PO SCH (06:16)
[2022-04-21 06:18] VITALS: BP 90/39; PULSE 88; RESP 26
[2022-04-21 06:20] LABS: Anisocytosis Marked; HCT 24.4 % (34.0-46.0); HGB 7.8 gm/dL (11.4-16.0); Hypochromasia Marked; MCH 31.4 pg (25.0-35.0); MCV 98.2 fL (80.0-100.0); Macrocytosis Marked; Mean Platelet Volume 10.7; Poikilocytosis Marked; RBC 2.48 m/uL (3.80-5.40)
[2022-04-21 06:44] LABS: Calcium 7.4 mg/dL (8.4-10.2); Potassium 3.8 mmol/L (3.5-5.1)
[2022-04-21 07:21] LABS: RDW 26.5 % (11.5-15.5)
--- NOTE | 2022-04-21 07:38 | P.PN ---
Subjective Progress Note Date: 04/21/22 Principal diagnosis: Typical atrial flutter Patient is pleasant 71-year-old female with history of persistent typical atrial flutter, paroxysmal atrial fibrillation, hypertension, hyperlipidemia. She follows with Dr. Leger. We are consulted for A flutter. She presented for [facility] back surgery. She underwent back surgery with a long procedure. She was noted to be in atrial flutter throughout the case. After that she became bradycardic and she did have an episode appeared to be brief of severe bradycardia/cardiac arrest and she resuscitated. 03/08/2022 The patient was seen and evaluated this morning. She seems to be hypotensive now require norepinephrine. She remains in atrial flutter with overall controlled heart rate. She is on Cardizem. I'm going to stop the Cardizem and start the patient on amiodarone was bolus and drip giving the low blood pressure requiring vasopressors. Beside that continued oral anticoagulation. Follow-up with the patient. March 092021 The patient was seen and evaluated this morning. She remains in atrial flutter with controlled heart rate. Oral anticoagulation is on hold at this point in the light of bleeding. The hemoglobin this morning is below 7. There is a possibility that the patient might need another back surgery. March 102021 The patient was seen and evaluated this morning beach she underwent another surgery yesterday. She seems to be stable at this point and she is on very small dose of norepinephrine which point to be weaned later on today. Otherwise today she is in normal sinus mechanism. Hemoglobin is a stable. March 112021 The patient was seen and evaluated this morning. She is extubated. She is hemodynamic stable beside being tachycardic and underlying rhythm seems to be A. fib/atrial flutter. The pressure is soft. She just went of vasopressors. I'm going to start the patient on amiodarone IV and switch her to amiodarone by mouth down the line. Hold on any anticoagulation at this point in the light of history of bleeding. Her hemoglobin this morning is 8.9. On examination she seems to be hypervolemic with bilateral lower except his edema March 122021 The patient was seen and evaluated this morning. She remains a stable overall. She was extubated yesterday. She stated "I feel better". Currently she is in atrial fibrillation with overall controlled heart rate. Currently she is on amiodarone IV which I'm going to stop and start amiodarone by mouth. Anticoagulation is on hold right now in the light of recent history of bleeding and low hemoglobin required blood transfusion. Her hemoglobin this morning is 8.9. On examination she seems to be overall euvolemic with mild bilateral lower except his edema. 04/17/2022 The patient was seen this morning. She remains in atrial flutter with overall controlled heart rate on the current dose of verapamil as well as beta nic. I am going to DC verapamil and increase the dose of beta nic giving the cardiomyopathy situation. Her hemoglobin remained stable. Her GFR remains stable as well. She is not on any anticoagulation in the light of history of gastrointestinal bleeding. The chest x-ray showed small bilateral pleural effusion. She continues to be on IV Lasix April 182022 The patient was seen and evaluated this morning. She remains in atrial flutter/atrial fibrillation with controlled heart rate. I stopped the verapamil yesterday and increase the dose of beta nic and she has been tolerating that. She is not on anticoagulation in the light of gastrointestinal bleeding history. From the cardiac standpoint of view, we'll continue the current medical regimen beach she still in volume overload and currently she is on Lasix IV which I would continue. 04/19/2022 The patient was seen and evaluated this morning. She remains hemodynamically stable and not on any vasopressors at this point. She remains in atrial fibrillation/atrial flutter with overall controlled heart rate on the current medical regimen including current dose of beta nic. She seems to be hypervolemic on examination was bilateral rhonchi and bilateral lower extremities edema. Currently she is on Lasix IV. Creatinine continues to be stable. April 202022 The patient was seen this morning. He continues to be congested. She continues to be on oxygen requiring 2 L. Her urine output has been marginal. The pressure has been stable. I'm going to increase the dose of Lasix to 80 mg IV twice a day and continue the current medical regimen including current dose of beta nic and follow-up with the patient. April 212022 The patient was seen this morning. She has not been doing well. She has been having markedly low blood pressure. The family is leaning toward possible comported care. Otherwise she remains in atrial flutter with overall controlled heart rate. With that being said going to dictate a dose of Lasix. Objective - Vital Signs Vital signs: Vital Signs Temp 98.4 F 04/20/22 22:00 Pulse 88 04/21/22 06:00 Resp 26 H 04/21/22 06:00 BP 90/39 04/21/22 06:00 Pulse Ox 99 04/21/22 03:16 FiO2 100 04/21/22 00:44 Intake & Output 04/20/22 04/21/22 04/21/22 18:59 06:59 18:59 Intake Total 1020 240 Output Total 480 1200 Balance 540 -960 Weight 137 kg Intake: IV 240 240 Cefepime 1 gm In Sodium 50 Chloride 0.9% 50 ml @ 12. 5 mls/hr IVPB Q8HR ME[facility] Rx #:[id number] Sodium Chloride 0.9% 1, 190 240 000 ml @ 20 mls/hr IV . Q24H ME[facility]UL Rx#:[id number] Oral 0 Tube Feeding 720 Other 60 Output: Urine 480 400 Stool 800 Other: Voiding Method Indwelling Catheter Indwelling Catheter ABP, PAP, CO, CI - Last Documented Arterial Blood Pressure 222/214 - Labs CBC & Chem 7: 04/21/22 05:52 04/21/22 05:52 Labs: Abnormal Lab Results - Last 24 Hours (Table) 04/20/22 04/20/22 04/20/22 Range/Units 07:05 08:16 09:27 WBC 19.9 H (3.8-10.6) k/uL RBC 2.48 L (3.80-5.40) m/uL Hgb 5.1 L* D 7.8 L D (11.4-16.0) gm/dL Hct 16.2 L* 24.5 L (34.0-46.0) % RDW 26.3 H (11.5-15.5) % Plt Count 109 L (150-450) k/uL Neutrophils # (Manual) 16.70 H (1.3-7.7) k/uL Metamyelocytes # (Man) 0.20 H (0) k/uL Myelocytes # (Manual) 0.20 H (0) k/uL Nucleated RBCs 7 H (0-0) /100 WBC Macrocytosis Marked A ESR 41 H (0-20) mm/hr Sodium 149 H (137-145) mmol/L Potassium 3.3 L (3.5-5.1) mmol/L Chloride 116 H (98-107) mmol/L Carbon Dioxide 32 H (22-30) mmol/L BUN 50 H (7-17) mg/dL Creatinine (0.52-1.04) mg/dL Glucose 169 H (74-99) mg/dL POC Glucose (mg/dL) (70-110) mg/dL Calcium 7.2 L (8.4-10.2) mg/dL AST 50 H (14-36) U/L ALT 57 H (4-34) U/L Alkaline Phosphatase 149 H (38-126) U/L C-Reactive Protein 4.3 H (<1.0) mg/dL Total Protein 4.2 L (6.3-8.2) g/dL Albumin 1.9 L (3.5-5.0) g/dL 04/20/22 04/20/22 04/20/22 Range/Units 11:59 17:46 21:55 WBC (3.8-10.6) k/uL RBC (3.80-5.40) m/uL Hgb (11.4-16.0) gm/dL Hct (34.0-46.0) % RDW (11.5-15.5) % Plt Count (150-450) k/uL Neutrophils # (Manual) (1.3-7.7) k/uL Metamyelocytes # (Man) (0) k/uL Myelocytes # (Manual) (0) k/uL Nucleated RBCs (0-0) /100 WBC Macrocytosis ESR (0-20) mm/hr Sodium (137-145) mmol/L Potassium (3.5-5.1) mmol/L Chloride (98-107) mmol/L Carbon Dioxide (22-30) mmol/L BUN (7-17) mg/dL Creatinine (0.52-1.04) mg/dL Glucose (74-99) mg/dL POC Glucose (mg/dL) 181 H 201 H 165 H (70-110) mg/dL Calcium (8.4-10.2) mg/dL AST (14-36) U/L ALT (4-34) U/L Alkaline Phosphatase (38-126) U/L C-Reactive Protein (<1.0) mg/dL Total Protein (6.3-8.2) g/dL Albumin (3.5-5.0) g/dL 04/21/22 04/21/22 04/21/22 Range/Units 01:15 05:52 05:52 WBC 24.0 H (3.8-10.6) k/uL RBC 2.48 L (3.80-5.40) m/uL Hgb 7.8 L (11.4-16.0) gm/dL Hct 24.4 L (34.0-46.0) % RDW 26.5 H (11.5-15.5) % Plt Count (150-450) k/uL Neutrophils # (Manual) (1.3-7.7) k/uL Metamyelocytes # (Man) (0) k/uL Myelocytes # (Manual) (0) k/uL Nucleated RBCs (0-0) /100 WBC Macrocytosis Marked A ESR (0-20) mm/hr Sodium 150 H (137-145) mmol/L Potassium (3.5-5.1) mmol/L Chloride 118 H (98-107) mmol/L Carbon Dioxide 31 H (22-30) mmol/L BUN 62 H (7-17) mg/dL Creatinine 1.16 H (0.52-1.04) mg/dL Glucose 107 H (74-99) mg/dL POC Glucose (mg/dL) 157 H (70-110) mg/dL Calcium 7.4 L (8.4-10.2) mg/dL AST (14-36) U/L ALT (4-34) U/L Alkaline Phosphatase (38-126) U/L C-Reactive Protein (<1.0) mg/dL Total Protein (6.3-8.2) g/dL Albumin (3.5-5.0) g/dL 04/21/22 Range/Units 05:53 WBC (3.8-10.6) k/uL RBC (3.80-5.40) m/uL Hgb (11.4-16.0) gm/dL Hct (34.0-46.0) % RDW (11.5-15.5) % Plt Count (150-450) k/uL Neutrophils # (Manual) (1.3-7.7) k/uL Metamyelocytes # (Man) (0) k/uL Myelocytes # (Manual) (0) k/uL Nucleated RBCs (0-0) /100 WBC Macrocytosis ESR (0-20) mm/hr Sodium (137-145) mmol/L Potassium (3.5-5.1) mmol/L Chloride (98-107) mmol/L Carbon Dioxide (22-30) mmol/L BUN (7-17) mg/dL Creatinine (0.52-1.04) mg/dL Glucose (74-99) mg/dL POC Glucose (mg/dL) 125 H (70-110) mg/dL Calcium (8.4-10.2) mg/dL AST (14-36) U/L ALT (4-34) U/L Alkaline Phosphatase (38-126) U/L C-Reactive Protein (<1.0) mg/dL Total Protein (6.3-8.2) g/dL Albumin (3.5-5.0) g/dL Microbiology - Last 24 Hours (Table) 04/19/22 15:00 Urine Culture - Final Urine,Voided 04/14/22 08:45 Blood Culture - Final Blood No Growth after 144 hours Assessment and Plan Assessment: ASSESSMENT Status post back surgery Persistent atrial fibrillation Hypertension Hyperlipidemia Cardiomyopathy, ischemic vs non-ischemic Electrolytes imbalance which has improved Back pain History of GI bleeding PLAN Decrease the dose of Lasix Awaiting for possibility decision regarding possible comported
--- NOTE | 2022-04-21 07:52 | P.PN ---
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 Patient is currently resting in bed. Family is at bedside. Patient is lethargic this morning and is nonverbal at this time. Surgical dressing is intact, This was changed yesterday approx at 1600. No drainage. Incision was well approximated and sutures intact. Nasogastric tube was pulled out by patient last night around midnight. This was to be removed regardless for possible pegtube placement today. Patient is having low BPs and increased respirations. 4+ pitting edema to bilateral lower extremities. 3+ edema to bilateral upper extremities. Patient is currently on Lasix. Warren catheter is patent. Fecal management system is present. Patient has been afebrile, denies nausea/vomiting, or chest pain. Objective - Vital Signs Vital signs: Vital Signs Temp 98.4 F 04/20/22 22:00 Pulse 88 04/21/22 06:00 Resp 26 H 04/21/22 06:00 BP 90/39 04/21/22 06:00 Pulse Ox 99 04/21/22 03:16 FiO2 100 04/21/22 00:44 Intake & Output 04/20/22 04/21/22 04/21/22 18:59 06:59 18:59 Intake Total 1020 240 Output Total 480 1200 Balance 540 -960 Weight 137 kg Intake: IV 240 240 Cefepime 1 gm In Sodium 50 Chloride 0.9% 50 ml @ 12. 5 mls/hr IVPB Q8HR [facility] Rx #:[id number] Sodium Chloride 0.9% 1, 190 240 000 ml @ 20 mls/hr IV . Q24H [facility] Rx#:[id number] Oral 0 Tube Feeding 720 Other 60 Output: Urine 480 400 Stool 800 Other: Voiding Method Indwelling Catheter Indwelling Catheter ABP, PAP, CO, CI - Last Documented Arterial Blood Pressure 222/214 - Exam Physical Examination General: The patient is awake and alert, in no acute distress Skin: Skin is warm and dry with no obvious rashes or lesions. Hairy patches absent, no dorsal skin dimples, no cafe au lait spots. Surgical Incision to lumbar region, sutures are intact. Dressing is CDI. Eye: Pupils are equal, round and reactive to light, extra-ocular movements are intact; there is normal conjunctiva bilaterally. Neck: The neck is supple, there is no tenderness and ROM intact. Cardiovascular: A-fib, Patient presents with 4+ pitting edema to BLE, 3+ pitting edema to BUE Respiratory: Diminished bilateral lung bases to auscultation, respirations are non-labored, breath sounds are equal, 3LNC Gastrointestinal: Soft, non-distended, non-tender abdomen, FMS patent. Back: There is no tenderness to palpation in the midline, paralumbar, parathoracic or buttocks region. There is no obvious deformity . Musculoskeletal: ROM limited secondary to pain and stiffness from surgical procedure. Muscle strength in all major muscle groups MARIO. Neurological: CN 2-12 intact. There are no obvious motor or sensory deficits. Movement and coordination equal and intact. Sensory exam to light touch intact C5-T1 and intact from L2-S1. Reflexes 2/4 in bilateral upper and lower extremities. Negative Hoffmans, babinski, and clonus signs. Psychiatric: Cooperative, appropriate mood & affect, normal judgment. - Labs CBC & Chem 7: 04/21/22 05:52 04/21/22 05:52 Labs: Abnormal Lab Results - Last 24 Hours (Table) 04/20/22 04/20/22 04/20/22 Range/Units 07:05 08:16 09:27 WBC 19.9 H (3.8-10.6) k/uL RBC 2.48 L (3.80-5.40) m/uL Hgb 5.1 L* D 7.8 L D (11.4-16.0) gm/dL Hct 16.2 L* 24.5 L (34.0-46.0) % RDW 26.3 H (11.5-15.5) % Plt Count 109 L (150-450) k/uL Neutrophils # (Manual) 16.70 H (1.3-7.7) k/uL Metamyelocytes # (Man) 0.20 H (0) k/uL Myelocytes # (Manual) 0.20 H (0) k/uL Nucleated RBCs 7 H (0-0) /100 WBC Macrocytosis Marked A ESR 41 H (0-20) mm/hr Sodium 149 H (137-145) mmol/L Potassium 3.3 L (3.5-5.1) mmol/L Chloride 116 H (98-107) mmol/L Carbon Dioxide 32 H (22-30) mmol/L BUN 50 H (7-17) mg/dL Creatinine (0.52-1.04) mg/dL Glucose 169 H (74-99) mg/dL POC Glucose (mg/dL) (70-110) mg/dL Calcium 7.2 L (8.4-10.2) mg/dL AST 50 H (14-36) U/L ALT 57 H (4-34) U/L Alkaline Phosphatase 149 H (38-126) U/L C-Reactive Protein 4.3 H (<1.0) mg/dL Total Protein 4.2 L (6.3-8.2) g/dL Albumin 1.9 L (3.5-5.0) g/dL 04/20/22 04/20/22 04/20/22 Range/Units 11:59 17:46 21:55 WBC (3.8-10.6) k/uL RBC (3.80-5.40) m/uL Hgb (11.4-16.0) gm/dL Hct (34.0-46.0) % RDW (11.5-15.5) % Plt Count (150-450) k/uL Neutrophils # (Manual) (1.3-7.7) k/uL Metamyelocytes # (Man) (0) k/uL Myelocytes # (Manual) (0) k/uL Nucleated RBCs (0-0) /100 WBC Macrocytosis ESR (0-20) mm/hr Sodium (137-145) mmol/L Potassium (3.5-5.1) mmol/L Chloride (98-107) mmol/L Carbon Dioxide (22-30) mmol/L BUN (7-17) mg/dL Creatinine (0.52-1.04) mg/dL Glucose (74-99) mg/dL POC Glucose (mg/dL) 181 H 201 H 165 H (70-110) mg/dL Calcium (8.4-10.2) mg/dL AST (14-36) U/L ALT (4-34) U/L Alkaline Phosphatase (38-126) U/L C-Reactive Protein (<1.0) mg/dL Total Protein (6.3-8.2) g/dL Albumin (3.5-5.0) g/dL 04/21/22 04/21/22 04/21/22 Range/Units 01:15 05:52 05:52 WBC 24.0 H (3.8-10.6) k/uL RBC 2.48 L (3.80-5.40) m/uL Hgb 7.8 L (11.4-16.0) gm/dL Hct 24.4 L (34.0-46.0) % RDW 26.5 H (11.5-15.5) % Plt Count (150-450) k/uL Neutrophils # (Manual) (1.3-7.7) k/uL Metamyelocytes # (Man) (0) k/uL Myelocytes # (Manual) (0) k/uL Nucleated RBCs (0-0) /100 WBC Macrocytosis Marked A ESR (0-20) mm/hr Sodium 150 H (137-145) mmol/L Potassium (3.5-5.1) mmol/L Chloride 118 H (98-107) mmol/L Carbon Dioxide 31 H (22-30) mmol/L BUN 62 H (7-17) mg/dL Creatinine 1.16 H (0.52-1.04) mg/dL Glucose 107 H (74-99) mg/dL POC Glucose (mg/dL) 157 H (70-110) mg/dL Calcium 7.4 L (8.4-10.2) mg/dL AST (14-36) U/L ALT (4-34) U/L Alkaline Phosphatase (38-126) U/L C-Reactive Protein (<1.0) mg/dL Total Protein (6.3-8.2) g/dL Albumin (3.5-5.0) g/dL 04/21/22 Range/Units 05:53 WBC (3.8-10.6) k/uL RBC (3.80-5.40) m/uL Hgb (11.4-16.0) gm/dL Hct (34.0-46.0) % RDW (11.5-15.5) % Plt Count (150-450) k/uL Neutrophils # (Manual) (1.3-7.7) k/uL Metamyelocytes # (Man) (0) k/uL Myelocytes # (Manual) (0) k/uL Nucleated RBCs (0-0) /100 WBC Macrocytosis ESR (0-20) mm/hr Sodium (137-145) mmol/L Potassium (3.5-5.1) mmol/L Chloride (98-107) mmol/L Carbon Dioxide (22-30) mmol/L BUN (7-17) mg/dL Creatinine (0.52-1.04) mg/dL Glucose (74-99) mg/dL POC Glucose (mg/dL) 125 H (70-110) mg/dL Calcium (8.4-10.2) mg/dL AST (14-36) U/L ALT (4-34) U/L Alkaline Phosphatase (38-126) U/L C-Reactive Protein (<1.0) mg/dL Total Protein (6.3-8.2) g/dL Albumin (3.5-5.0) g/dL Microbiology - Last 24 Hours (Table) 04/19/22 15:00 Urine Culture - Final Urine,Voided 04/14/22 08:45 Blood Culture - Final Blood No Growth after 144 hours Assessment and Plan Assessment: Lumbar wound dehiscence s/p [id number] decompression and fusion with complex perioperative and post operative course - Postoperative day #7 status post Irrigation and excisional debridement of lumbar spine [id number] cm wound, complex closure. Plan: -Appreciate oracle distribution consultant and team management PCC and medicine -Appreciate cardiothoracic, Gen. surgery, nephrology, ID evaluations -Continue Activity: as medically tolerated, patient needs to be transferred to a room with a zulema lift. -PT / OT DAILY work on increased strength in LE quads, hammys, etc for standing -Cont Abx for duration of stay -Pain control: Adequate today. Watch pressures and VS. -Meplex pads on sacral region with barrier cream. Cont turn. Sit at different angles. -Meds: reviewed -Trend labs, trend SED and CRP for markers -GI ppx: senna, Miralax, -Continue with FMS per GI. -Continue Warren changed per protocol -Cont with FBS -DVT PPX: Mechanical only. -Hygiene: Maintain dressing clean and dry. Meticulous cleaning after BMs away from incision site patient has had several instances on the floor where she was covered and bowel movement as well as urine up to her shoulders on her back. The wound needs to be kept meticulously clean. -Encourage IS 10x/hr -Patient is cleared from Orthopedic standpoint for discharge to rehab when medically stable. *I reviewed and discussed this case with my attending Dr. Alexander, whom has reviewed this chart and films and is in agreement with assessment and plan of care as outlined above. I have personally seen and examined the patient, performed the documentation and the assessment and plan as written. Number of minutes spent on the visit: [10m ].
[2022-04-21] MEDS ORDERED: ATROPINE OPHTH SOLN 1% 5ML BTL SUBLINGUAL PRN (08:30)
[2022-04-21] MEDS ORDERED: MORPHINE SULFATE (100 MG/2 ML) 100 MG in SODIUM CHLORIDE 0.9% 100 ML IV SCH (08:30)
[2022-04-21] MEDS ORDERED: LORazepam 2 MG/ML INJ IV PRN (08:30)
[2022-04-21] MEDS ORDERED: SCOPOLAMINE 1 MG/72 HR PATCH TRANSDERM SCH (08:30)
[2022-04-21 08:51] LABS: Lymphocytes # (M) 2.42 k/uL (1.0-4.8); Monocytes # (M) 0.22 k/uL (0-1.0); Myelocytes # (M) 0.22 k/uL (0); Myelocytes % 1 %; Neutrophils # (M) 19.14 k/uL (1.3-7.7); Neutrophils % (M) 87 %; Nucleated Red Blood Cells 9 /100 WBC (0-0); Total Cells Counted 200
[2022-04-21 08:52] LABS: Platelet Count 96 k/uL (150-450); Polychromasia Present
[2022-04-21] MEDS ORDERED: FUROSEMIDE 10 MG/ML 10 ML VIAL IV SCH (09:00)
--- NOTE | 2022-04-21 09:10 | P.PN ---
Subjective Progress Note Date: 04/21/22 Patient is a 71-year-old female with a hx of A fib s/p ablation, GERD, hypertension, dyslipidemia, and right diaphragmatic paralysis who presented for T10 to Pelvis decompression and fusion with revision. Course complicated by significant blood loss. Patient was on vasopressors, also received TXA gtt. S he received 7 L of lactated Ringer's. She received 1 amp of sodium bicarb intaop. She also received albumin. Patient then had a cardiac arrest. During the case she developed A. fib with RVR and then quickly transitioned into bradycardia with a low end-tidal CO2. She received 0.4 of atropine and CPR was started. She received epinephrine 0.5. She achieved ROSC. Total down time was less than 5 minutes. She was extubated on 02/25. She continued to do well but struggled with pain. She was downgraded from ICU on 03/03. On 03/06/22 patient was noted to have a significant drop in hemoglobin from 10.0 down to 7.5 and upon reevaluation on 03/07 was found to have hemoglobin of 5.4, patient required multiple transfusions. She has received a total of 7 units PRBCs and 1 unit of platelets. She underwent a CT abdomen and pelvis and was found to have a large right chest hematoma dilated small bowel concerning for ileus. Patient was evaluated by cardiothoracic surgery and they recommended conservative management. On 03/07, patient was noted to be hypotensive with elevated WBC count of 42.3, with worsening renal function and hyperkalamia. Patient was treated with NS bolus, IV insulin/D50, Albuterol and sodium bicarbonate. She was transferred back to the ICU for septic shock requiring Levophed. Patient was started on Vancomycin and Cefepime. Blood and urine cultures were obtained and positive for Enterobacter. Infectious disease was consulted and patient was continued on Cefepime for treatment of Enterobacter UTI with secondary bacteremia and Vancomycin was discontinued. Patient was later weaned off of vasopressors and again transferred out of the ICU. Patient was started on Lasix for treatment of acute on chronic systolic heart failure with EF of 35-40%. Patient continued on Protonix for GI prophylaxis, amiodarone and metoprolol for atrial fibrillation with RVR sodium bicarb for treatment of metabolic acidosis. Pt's Xarelto remains hold at this time. Patient was evaluated by PMR and is currently not a candidate for inpatient rehab. She has been cleared by orthopedic surgery to start working with physical therapy. On 03/26/22 patient was again found to have elevating leukocytosis and repeat Wound cultures were obtained. Wound cultures were positive for pseudomonas aeruginosa, enterococcus fasciculus, and Patsy albicans. Patient to continue with Zosyn per culture and sensitivity report and as recommended by infectious disease as this may be contamination/colonization however patient is a high risk of infection so we will continue with empiric antibiotic therapy. Overnight on 03/28/22 patient again developed episodes of melena and at that time Dr. Arce, general surgeon was re-consulted. CT abdomen and pelvis revealing bilateral hydronephrosis unable to rule out obstructive etiology, concerns for fecal impaction, and persistent previously known right anterior chest wall hematoma. General surgery following and reevaluated patient secondary to concerns of fecal impaction and started patient on lactulose. Warren catheter was inserted secondary to loki ateral hydronephrosis and patient was evaluated by urologist recommending continuation of Warren catheter as bilateral hydronephrosis is believed to be resulting secondary to urinary retention. On the evening of 04/03/21 patient with continued atrial tachycardia and hypotension and unable to take metoprolol secondary to low blood pressures. Patient had episode of hematochezia along with large blood clot and was transferred back to the ICU. Had bedside manual disimpaction with general surgery. Also has a posterior anal fissure could likely because of current bleeding. Which required further blood transfusions. On a bowel regimen. Hemoglobin now stable at 8.4. She continues with inadequate swallow function. She is continued being nourished with vital AF via nasogastric tube. She also may require PEG tube placement. She may be a candidate for select specialty. 04/19 The patient was examined in the ICU. The nurse and nursing secretary got the patient up to a chair with a Ninfa lift. She is hemodynamically stable. A psychiatric evaluation was completed yesterday. 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 The patient was alert and oriented times 3 for the evaluation. CAGE SHIFT MANAGER has been following the patient for dysphasia. The patient continues to have been inadequate swallow function. The patient currently has a nasogastric tube with tube feeding infusing. General surgery has been consult for a possible PEG tube placement. The patient is confused today. She was hallucinating and calling for her dog, Juan, who she thought was in the room. She is lethargic and struggles to stay awake. Her speech was difficult to understand. She stated she does not feel like she is getting any better. She thinks it is mean gruel to keep her here just lying around. She states that is painful when the staff repositions her. Her sister, Destini, is at the bedside. She continues to encourage the patient and tells her that she is making progress. The patient stated that she thinks everyone is lying to her and she is not getting any better. The patient began to cry stating that she wanted her kids. Destini states that her kids come to visit her every today. Apparently there was a family discussion yesterday and they decided and I giving up on her yet. They believe she is getting better and would like to send her to rehab to get stronger. If rehab fails, then they will consider hospice. 04/20 Spoke with the patient's son, Jayden today. Differences between hospice and palliative care were discussed. It was explained that I am an added layer of support for the patient and her family. He stated that he and his family had a meeting with Dr. Peña on Sunday. I told him that I have also talked with Shiela Peña and are there to support her. Jayden stated that she is slowly getting better. They family is not ready to give up on her. They understand that she has been through a lot. However, they believe she is just depressed from being in the hospital for so long and getting confused from the pain medications. He stated that she is not hooked up to life support, so there is no reason why she can not get better. It was explained to Jayden that there is still a long road ahead of her to recovery. He believes there is no reason why she can not walk again. Right now the nurses have to use a Ninfa lift to get her up out of bed. It will take a tremendous amount of therapy to get her strong enough to walk again. She has to have the motivation and determination to get better. Jayden described his mother as attention seeking since her . The family and the patient agreed on giving her two more weeks to show an improvement. They have spoken with the spring encaser, Thom, and have agreed to send her to select specialty eventually. Objective - Vital Signs Vital signs: Vital Signs Temp 98.4 F 04/20/22 22:00 Pulse 88 04/21/22 06:00 Resp 26 H 04/21/22 06:00 BP 90/39 04/21/22 06:00 Pulse Ox 99 04/21/22 03:16 FiO2 100 04/21/22 00:44 Intake & Output 04/20/22 04/21/22 04/21/22 18:59 06:59 18:59 Intake Total 1020 240 Output Total 480 1200 Balance 540 -960 Weight 137 kg Intake: IV 240 240 Cefepime 1 gm In Sodium 50 Chloride 0.9% 50 ml @ 12. 5 mls/hr IVPB Q8HR ME[facility]UL Rx #:[id number] Sodium Chloride 0.9% 1, 190 240 000 ml @ 20 mls/hr IV . Q24H ME[facility]UL Rx#:[id number] Oral 0 Tube Feeding 720 Other 60 Output: Urine 480 400 Stool 800 Other: Voiding Method Indwelling Catheter Indwelling Catheter ABP, PAP, CO, CI - Last Documented Arterial Blood Pressure 222/214 - Exam General: Chronically ill appearing, appears stated age HEENT: Head is atraumatic, normocephalic. CV: positive S1 and S2. No rubs or murmurs. Her regular rhythm Lungs: Scattered rhonchi throughout. Respirations labored, tachypenic, 4 LNC Abdomen/GI: Soft. Obese : Warren catheter in place draining clear yellow urine Musculoskeletal/ Extremities: + Profound generalized weakness Vascular: 3+ peripheral edema Skin: Warm and dry Neurologic: Obtunded - Labs CBC & Chem 7: 04/21/22 05:52 04/21/22 05:52 Labs: Abnormal Lab Results - Last 24 Hours (Table) 04/20/22 04/20/22 04/20/22 Range/Units 08:16 09:27 11:59 WBC 19.9 H (3.8-10.6) k/uL RBC (3.80-5.40) m/uL Hgb (11.4-16.0) gm/dL Hct (34.0-46.0) % RDW (11.5-15.5) % Neutrophils # (Manual) 16.70 H (1.3-7.7) k/uL Metamyelocytes # (Man) 0.20 H (0) k/uL Myelocytes # (Manual) 0.20 H (0) k/uL Nucleated RBCs 7 H (0-0) /100 WBC Macrocytosis ESR 41 H (0-20) mm/hr Sodium 149 H (137-145) mmol/L Potassium 3.3 L (3.5-5.1) mmol/L Chloride 116 H (98-107) mmol/L Carbon Dioxide 32 H (22-30) mmol/L BUN 50 H (7-17) mg/dL Creatinine (0.52-1.04) mg/dL Glucose 169 H (74-99) mg/dL POC Glucose (mg/dL) 181 H (70-110) mg/dL Calcium 7.2 L (8.4-10.2) mg/dL AST 50 H (14-36) U/L ALT 57 H (4-34) U/L Alkaline Phosphatase 149 H (38-126) U/L C-Reactive Protein 4.3 H (<1.0) mg/dL Total Protein 4.2 L (6.3-8.2) g/dL Albumin 1.9 L (3.5-5.0) g/dL 04/20/22 04/20/22 04/21/22 Range/Units 17:46 21:55 01:15 WBC (3.8-10.6) k/uL RBC (3.80-5.40) m/uL Hgb (11.4-16.0) gm/dL Hct (34.0-46.0) % RDW (11.5-15.5) % Neutrophils # (Manual) (1.3-7.7) k/uL Metamyelocytes # (Man) (0) k/uL Myelocytes # (Manual) (0) k/uL Nucleated RBCs (0-0) /100 WBC Macrocytosis ESR (0-20) mm/hr Sodium (137-145) mmol/L Potassium (3.5-5.1) mmol/L Chloride (98-107) mmol/L Carbon Dioxide (22-30) mmol/L BUN (7-17) mg/dL Creatinine (0.52-1.04) mg/dL Glucose (74-99) mg/dL POC Glucose (mg/dL) 201 H 165 H 157 H (70-110) mg/dL Calcium (8.4-10.2) mg/dL AST (14-36) U/L ALT (4-34) U/L Alkaline Phosphatase (38-126) U/L C-Reactive Protein (<1.0) mg/dL Total Protein (6.3-8.2) g/dL Albumin (3.5-5.0) g/dL 04/21/22 04/21/22 04/21/22 Range/Units 05:52 05:52 05:53 WBC 24.0 H (3.8-10.6) k/uL RBC 2.48 L (3.80-5.40) m/uL Hgb 7.8 L (11.4-16.0) gm/dL Hct 24.4 L (34.0-46.0) % RDW 26.5 H (11.5-15.5) % Neutrophils # (Manual) (1.3-7.7) k/uL Metamyelocytes # (Man) (0) k/uL Myelocytes # (Manual) (0) k/uL Nucleated RBCs (0-0) /100 WBC Macrocytosis Marked A ESR (0-20) mm/hr Sodium 150 H (137-145) mmol/L Potassium (3.5-5.1) mmol/L Chloride 118 H (98-107) mmol/L Carbon Dioxide 31 H (22-30) mmol/L BUN 62 H (7-17) mg/dL Creatinine 1.16 H (0.52-1.04) mg/dL Glucose 107 H (74-99) mg/dL POC Glucose (mg/dL) 125 H (70-110) mg/dL Calcium 7.4 L (8.4-10.2) mg/dL AST (14-36) U/L ALT (4-34) U/L Alkaline Phosphatase (38-126) U/L C-Reactive Protein (<1.0) mg/dL Total Protein (6.3-8.2) g/dL Albumin (3.5-5.0) g/dL Microbiology - Last 24 Hours (Table) 04/19/22 15:00 Urine Culture - Final Urine,Voided 04/14/22 08:45 Blood Culture - Final Blood No Growth after 144 hours Assessment and Plan Plan: Summary/Goals - Received a phone call from the patient's nurse stating that she has declined overnight. Family is at bedside and is agreeable to comfort care at this time. The patient is obtunded, hypotensive, and tachypneic with increased work of breathing and increased O2 demands. Spoke with family at the bedside including her son, Virgilio. They are very emotional at this time. Emotional support provided. Comfort care explained in detail and they agreed that that was in the best option for the patient. Dr. Willis, Dr. Roman, and Dr. Peña were notified. Reviewed comfort care orders with RN. Will continue to follow with the patient and ensure that she is comfortable and to support family. Recommendations -comfort care Advanced Directives - none on file Code Status - DO NOT RESUSCITATE [facility] Palliative Care [facility] [id number] Email: [email or web address] Time with Patient: Greater than 30
[2022-04-21] MEDS: AMIODARONE 200 MG TAB PO SCH (09:52)
[2022-04-21] MEDS: ATORVASTATIN 20 MG TAB PO SCH (09:52)
[2022-04-21] MEDS: ANIDULAFUNGIN 100 MG in SODIUM CHLORIDE 0.9% 100 ML IVPB SCH (09:52)
[2022-04-21] MEDS: buPROPion 75 MG TAB PO SCH ×2 (09:52→12:58)
[2022-04-21] MEDS: GABAPENTIN 400 MG CAP PO SCH ×2 (09:53→15:34)
[2022-04-21] MEDS: DULoxetine HCL 60 MG CAPSULE.DR PO SCH (09:53)
[2022-04-21] MEDS: MAGNESIUM OXIDE 400 MG TAB PO SCH (09:53)
[2022-04-21] MEDS: ENOXAPARIN 40 MG/0.4 ML SYRINGE SQ SCH (09:53)
[2022-04-21] MEDS: SIMETHICONE 40 MG/0.6 ML DROPS 2,000 MG/30 ML BOTTLE PO SCH ×2 (09:54→12:58)
[2022-04-21] MEDS: METOPROLOL TARTRATE 50 MG TAB PO SCH (09:54)
[2022-04-21] MEDS: MAG HYDROX/AL HYDROX/SIMETH 30 ML, diphenhydrAMINE ELIXIR 75 MG, LIDOCAINE VISCOUS 2% 3... PO SCH ×6 (09:54→15:34)
[2022-04-21] MEDS: PANTOPRAZOLE 40 MG/10 ML VIAL IVP SCH (09:54)
--- NOTE | 2022-04-21 11:34 | P.PN ---
Subjective Progress Note Date: 04/21/22 Principal diagnosis: Lumbar spondylosis adjacent segment disease status post L2-L4 posterior fusion with proximal junctional failure neurogenic claudication Pt s/e. Family at bedside. Pt pulled out NG tube yesterday. This AM around 5 pts son states he was called as she had "an event". In speaking with medicine and the family it sounds like she may have aspirated and become hypoxic. She was tended to by ICU and staff however family has elected for comfort care at this time now due to her condition. Despite this her vitals really do not look terrible, however her WBC has spiked again and she continues to have issues with breathing. She is not hypoxic at this time. She opens her eyes to some verbal cues but otherwise does not respond. She tries to speak but has difficulty with this and cannot. She has not made adequate urine overnight. She is no longer making stool it would seem. Systematically she is having issues. Objective - Vital Signs Vital signs: Vital Signs Temp 98.4 F 04/20/22 22:00 Pulse 88 04/21/22 06:00 Resp 26 H 04/21/22 06:00 BP 90/39 04/21/22 06:00 Pulse Ox 99 04/21/22 03:16 FiO2 100 04/21/22 00:44 Intake & Output 04/20/22 04/21/22 04/21/22 18:59 06:59 18:59 Intake Total 1020 240 1.003 Output Total 480 1200 Balance 540 -960 1.003 Weight 137 kg Intake: IV 240 240 Cefepime 1 gm In Sodium 50 Chloride 0.9% 50 ml @ 12. 5 mls/hr IVPB Q8HR [facility]UL Rx #:[id number] Sodium Chloride 0.9% 1, 190 240 000 ml @ 20 mls/hr IV . Q24H ME[facility]UL Rx#:[id number] Intake, IV Titration 1.003 Amount Morphine Sulfate (100 mg/ 1.003 2 ml) 100 mg In Sodium Chloride 0.9% 100 ml @ 1 MG/HR 1.02 mls/hr IV . Q24H MEHUL Rx#:[id number] Oral 0 Tube Feeding 720 Other 60 Output: Urine 480 400 Stool 800 Other: Voiding Method Indwelling Catheter Indwelling Catheter Indwelling Catheter ABP, PAP, CO, CI - Last Documented Arterial Blood Pressure 222/214 - Exam VSS at this time Opens her eyes to verbal cue, does not follow commands 4L NC Warren in place, min out Flexoseal in place min out Dressing CDI at this time. 3+ pitting edema b/l LE and UE - Labs CBC & Chem 7: 04/21/22 05:52 04/21/22 05:52 Labs: Abnormal Lab Results - Last 24 Hours (Table) 04/20/22 04/20/22 04/20/22 Range/Units 11:59 17:46 21:55 WBC (3.8-10.6) k/uL RBC (3.80-5.40) m/uL Hgb (11.4-16.0) gm/dL Hct (34.0-46.0) % RDW (11.5-15.5) % Plt Count (150-450) k/uL Neutrophils # (Manual) (1.3-7.7) k/uL Myelocytes # (Manual) (0) k/uL Nucleated RBCs (0-0) /100 WBC Macrocytosis Sodium (137-145) mmol/L Chloride (98-107) mmol/L Carbon Dioxide (22-30) mmol/L BUN (7-17) mg/dL Creatinine (0.52-1.04) mg/dL Glucose (74-99) mg/dL POC Glucose (mg/dL) 181 H 201 H 165 H (70-110) mg/dL Calcium (8.4-10.2) mg/dL 04/21/22 04/21/22 04/21/22 Range/Units 01:15 05:52 05:52 WBC 22.0 H (3.8-10.6) k/uL RBC 2.48 L (3.80-5.40) m/uL Hgb 7.8 L (11.4-16.0) gm/dL Hct 24.4 L (34.0-46.0) % RDW 26.5 H (11.5-15.5) % Plt Count 96 L (150-450) k/uL Neutrophils # (Manual) 19.14 H (1.3-7.7) k/uL Myelocytes # (Manual) 0.22 H (0) k/uL Nucleated RBCs 9 H (0-0) /100 WBC Macrocytosis Marked A Sodium 150 H (137-145) mmol/L Chloride 118 H (98-107) mmol/L Carbon Dioxide 31 H (22-30) mmol/L BUN 62 H (7-17) mg/dL Creatinine 1.16 H (0.52-1.04) mg/dL Glucose 107 H (74-99) mg/dL POC Glucose (mg/dL) 157 H (70-110) mg/dL Calcium 7.4 L (8.4-10.2) mg/dL 04/21/22 Range/Units 05:53 WBC (3.8-10.6) k/uL RBC (3.80-5.40) m/uL Hgb (11.4-16.0) gm/dL Hct (34.0-46.0) % RDW (11.5-15.5) % Plt Count (150-450) k/uL Neutrophils # (Manual) (1.3-7.7) k/uL Myelocytes # (Manual) (0) k/uL Nucleated RBCs (0-0) /100 WBC Macrocytosis Sodium (137-145) mmol/L Chloride (98-107) mmol/L Carbon Dioxide (22-30) mmol/L BUN (7-17) mg/dL Creatinine (0.52-1.04) mg/dL Glucose (74-99) mg/dL POC Glucose (mg/dL) 125 H (70-110) mg/dL Calcium (8.4-10.2) mg/dL Microbiology - Last 24 Hours (Table) 04/20/22 07:05 Blood Culture - Preliminary Blood No Growth after 24 hours 04/19/22 15:00 Urine Culture - Final Urine,Voided 04/14/22 08:45 Blood Culture - Final Blood No Growth after 144 hours Assessment and Plan Assessment: 71 yo female with severe spondylosis, 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 surgery, nephrology, ID evaluations -Continue Activity: as medically tolerated, patient needs to be transferred to a room with a zulema lift. -PT / OT DAILY work on increased strength in LE quads, hammys, etc for standing -Cont Abx for duration of stay -Pain control: Adequate today. Watch pressures and VS. -Meplex pads on sacral region with barrier cream. Cont turn. Sit at different angles. -Meds: reviewed -Trend labs, trend SED and CRP for markers -GI ppx: senna, Miralax, -Continue with FMS per GI. -Continue Warren changed per protocol -Cont with FBS -DVT PPX: Mechanical -Hygiene: Maintain dressing clean and dry. Meticulous cleaning after BMs away from incision site patient has had several instances on the floor where she was covered and bowel movement as well as urine up to her shoulders on her back. The wound needs to be kept meticulously clean. -Encourage IS 10x/hr -At this time, pt and family have elected for comfort care. Spoke with family extensively regarding her condition and treatment options etc. They understand their decision.
--- NOTE | 2022-04-21 11:45 | P.PN ---
Subjective Progress Note Date: 04/21/22 Principal diagnosis: cardiac arrest Hospital Course: Patient is a 71 yo CF with a hx of A fib s/p ablation, GERD, hypertension, dyslipidemia, and right diaphragmatic paralysis who presented for T10 to Pelvis decompression and fusion with revision. Course complicated by significant blood loss and cardiac arrest. During the case she developed A. fib with RVR and then quickly transitioned into bradycardia with a low end-tidal CO2. Total down time was less than 5 minutes. Patient subsequently admitted to the ICU. She was extubated on 02/25. She continued to do well but struggled with pain. She was downgraded from ICU on 03/03. On 03/06/22 patient was noted to have a significant drop in hemoglobin from 10.0 down to 7.5 and upon reevaluation on 03/07 was found to have hemoglobin of 5.4, patient required multiple transfusions. She underwent a CT abdomen and pelvis and was found to have a large right chest hematoma dilated small bowel concerning for ileus. Patient was evaluated by cardiothoracic surgery and they recommended conservative management. On 03/07, patient was noted to be hypotensive with elevated WBC count of 42.3, with worsening renal function and hyperkalamia. She was transferred back to the ICU for septic shock. Blood and urine cultures were obtained and positive for Enterobacter. Infectious disease was consulted. Patient remained on IV antibiotics. Patient was later weaned off of vasopressors and again transferred out of the ICU. Patient was started on Lasix for treatment of acute on chronic systolic heart failure with EF of 35-40%. Amiodarone and metoprolol for atrial fibrillation with RVR sodium bicarb for treatment of metabolic acidosis. Pt's Xarelto remain on hold at that time. Patient was evaluated by PMR and was not a candidate for inpatient rehab. She has been cleared by orthopedic surgery to start working with physical therapy. On 03/26/22 patient was again found to have elevating leukocytosis and repeat Wound cultures were obtained. Wound cultures were positive for pseudomonas aeruginosa, enterococcus fasciculus, and Patsy albicans. Patient was continued on IV antibiotics. Overnight on 03/28/22 patient again developed episodes of melena and at that time Dr. Arce, general surgeon was re-consulted. CT abdomen and pelvis revealing bilateral hydronephrosis unable to rule out obstructive etiology, concerns for fecal impaction, and persistent previously known right anterior chest wall hematoma. General surgery following and reevaluated patient secondary to concerns of fecal impaction and started patient on bowel regimen. Warren catheter was inserted secondary to bilateral hydronephrosis and patient was evaluated by urologist recommending continuation of Warren catheter as bilateral hydronephrosis is believed to be resulting secondary to urinary retention. Patient had episodes of hematochezia along with large blood clot and was transferred back to the ICU. Had bedside manual disimpaction with general surgery. Also has a posterior anal fissure could likely cause of current bleeding. Hemoglobin continued to down trend. Requiring further blood transfusions. Plan was to transfer the patient to an outside facility for GI services. However, patient remained hemodynamically stable, transfer was canceled. Patient returned to the OR on 04/14 for revision and washout, slight was dehisced but did not appear to be infected. OR cultures still pending. Due to prolonged hospitalization, patient has become extremely depressed and considering hospice care. Patient had been clinically improving since most recent surgery. However, patient had a setback with likely aspiration pneumonia, acute on chronic hypoxic respiratory failure. Family wants to pursue comfort care measures only. Subjective: Patient seen and examined at bedside. Overnight, patient became acutely hypoxic requiring a nonrebreather. Per nursing, patient was also obtunded. Her mentation waxes and wanes. Family was called, present at bedside. Family would like to pursue comfort care measures only. Pertinent positives and negatives as discussed above, a complete review of systems was performed and all other systems are negative. Vitals Signs Reviewed. General: no acute distress, appears at stated age Derm: warm, dry. Patient in the supine position, Postsurgical dressing not able to examine Head: atraumatic, normocephalic, symmetric Eyes: EOMI, no lid lag, anicteric sclera Mouth: no lip lesion, moist membranes moist Cardiovascular: S1S2 regular, tachycardic, no murmur Lungs: Bilateral crackles, on supplemental oxygen Ext: no gross muscle atrophy, 2+ pitting edema, no contractures Abd: Warren catheter in place. Obese. 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 Recent medical problems this hospitalization: Severe protein calorie malnutrition Poor nutritional intake Anasarca T10 to pelvis decompression with fusion Persistent leukocytosis Patsy UTI Major depressive disorder GI bleeding Atrial tachycardia/fibrillation Acute on chronic systolic heart failure Cardiac arrest Acute blood loss anemia Right breast hematoma History of right Diaphragmatic paralysis Septic shock Enterobacter UTI with bacteremia Bilateral hydronephrosis Urinary retention Prerenal azotemia Hyponatremia Hypokalemia Metabolic acidosis Ischemic hepatitis Acute abdominal pain Fecal impaction Posterior anal fissure A total of 120 minutes was spent on the care of this complex patient more than 50% of the time was spent in counseling and care coordination. Objective - Vital Signs Vital signs: Vital Signs Temp 98.4 F 04/20/22 22:00 Pulse 88 04/21/22 06:00 Resp 26 H 04/21/22 06:00 BP 90/39 04/21/22 06:00 Pulse Ox 99 04/21/22 03:16 FiO2 100 04/21/22 00:44 Intake & Output 04/20/22 04/21/22 04/21/22 18:59 06:59 18:59 Intake Total 1020 240 1.003 Output Total 480 1200 Balance 540 -960 1.003 Weight 137 kg Intake: IV 240 240 Cefepime 1 gm In Sodium 50 Chloride 0.9% 50 ml @ 12. 5 mls/hr IVPB Q8HR [facility] Rx #:[id number] Sodium Chloride 0.9% 1, 190 240 000 ml @ 20 mls/hr IV . Q24H [facility] Rx#:[id number] Intake, IV Titration 1.003 Amount Morphine Sulfate (100 mg/ 1.003 2 ml) 100 mg In Sodium Chloride 0.9% 100 ml @ 1 MG/HR 1.02 mls/hr IV . Q24H [facility] Rx#:[id number] Oral 0 Tube Feeding 720 Other 60 Output: Urine 480 400 Stool 800 Other: Voiding Method Indwelling Catheter Indwelling Catheter Indwelling Catheter ABP, PAP, CO, CI - Last Documented Arterial Blood Pressure 222/214 - Labs CBC & Chem 7: 04/21/22 05:52 04/21/22 05:52 Labs: Abnormal Lab Results - Last 24 Hours (Table) 04/20/22 04/20/22 04/20/22 Range/Units 11:59 17:46 21:55 WBC (3.8-10.6) k/uL RBC (3.80-5.40) m/uL Hgb (11.4-16.0) gm/dL Hct (34.0-46.0) % RDW (11.5-15.5) % Plt Count (150-450) k/uL Neutrophils # (Manual) (1.3-7.7) k/uL Myelocytes # (Manual) (0) k/uL Nucleated RBCs (0-0) /100 WBC Macrocytosis Sodium (137-145) mmol/L Chloride (98-107) mmol/L Carbon Dioxide (22-30) mmol/L BUN (7-17) mg/dL Creatinine (0.52-1.04) mg/dL Glucose (74-99) mg/dL POC Glucose (mg/dL) 181 H 201 H 165 H (70-110) mg/dL Calcium (8.4-10.2) mg/dL 04/21/22 04/21/22 04/21/22 Range/Units 01:15 05:52 05:52 WBC 22.0 H (3.8-10.6) k/uL RBC 2.48 L (3.80-5.40) m/uL Hgb 7.8 L (11.4-16.0) gm/dL Hct 24.4 L (34.0-46.0) % RDW 26.5 H (11.5-15.5) % Plt Count 96 L (150-450) k/uL Neutrophils # (Manual) 19.14 H (1.3-7.7) k/uL Myelocytes # (Manual) 0.22 H (0) k/uL Nucleated RBCs 9 H (0-0) /100 WBC Macrocytosis Marked A Sodium 150 H (137-145) mmol/L Chloride 118 H (98-107) mmol/L Carbon Dioxide 31 H (22-30) mmol/L BUN 62 H (7-17) mg/dL Creatinine 1.16 H (0.52-1.04) mg/dL Glucose 107 H (74-99) mg/dL POC Glucose (mg/dL) 157 H (70-110) mg/dL Calcium 7.4 L (8.4-10.2) mg/dL 04/21/22 Range/Units 05:53 WBC (3.8-10.6) k/uL RBC (3.80-5.40) m/uL Hgb (11.4-16.0) gm/dL Hct (34.0-46.0) % RDW (11.5-15.5) % Plt Count (150-450) k/uL Neutrophils # (Manual) (1.3-7.7) k/uL Myelocytes # (Manual) (0) k/uL Nucleated RBCs (0-0) /100 WBC Macrocytosis Sodium (137-145) mmol/L Chloride (98-107) mmol/L Carbon Dioxide (22-30) mmol/L BUN (7-17) mg/dL Creatinine (0.52-1.04) mg/dL Glucose (74-99) mg/dL POC Glucose (mg/dL) 125 H (70-110) mg/dL Calcium (8.4-10.2) mg/dL Microbiology - Last 24 Hours (Table) 04/20/22 07:05 Blood Culture - Preliminary Blood No Growth after 24 hours 04/19/22 15:00 Urine Culture - Final Urine,Voided 04/14/22 08:45 Blood Culture - Final Blood No Growth after 144 hours
[2022-04-21] MEDS ORDERED: CEFEPIME 2 GM in SODIUM CHLORIDE 0.9% 100 ML IVPB SCH (12:00)
--- NOTE | 2022-04-21 12:19 | P.PN ---
Subjective Progress Note Date: 04/21/22 The patient is seen today 04/17/2022 in follow-up in the intensive care unit. She is status post the T10 to pelvis decompression and fusion on 02/24/2022 with complex perioperative and postoperative course. She had a wound dehiscence and a possible CSF leak on 03/09/2022 and had undergone irrigation and debridement of thoracal lumbar and pelvic skin with dural repair and patch graft and L1. She had undergone a third surgery on 04/14/2022 for lumbar wound dehiscence. Dr. Alexander and performed irrigation and excisional debridement of lumbar spine 30 x 20 x 15 cm with a complex wound closure and a 4-layer fashion. She was initially on the mechanical ventilator and subsequently extubated yesterday 04/16/2022. Currently she is resting fairly comfortably in bed. She is on oxygen at 2 L/m per nasal cannula with O2 saturations in the 90s. Chest x-ray reveals small bilateral pleural effusions and atelectasis.. Left-sided PICC line is in place. She has normal saline at 20 mL per hour. Her norepinephrine has been off for approximately 48 hours. She is being nourished via nasogastric tube with vital AF at 30 mL per hour. She is status post 13 units of packed red blood cells this admission, 2 units of platelets. White count 13.5. Hemoglobin 8.3. Platelets 113. Sodium 145. Potassium 2.7. Chloride 117. BUN 25. Creatinine 0.70. Glucose 141. She is receiving Lasix 40 mg IV every 8 hours. Currently in a -1.4 L balance. Wound cultures are pending. Sputum culture is pending. Previous wound culture from 03/26/2022 was positive for pseudomonas aeruginosa, Enterococcus faecalis and Patsy. She is maintained on Eraxis, cefepime and vancomycin. The patient is seen today 04/18/2022 in follow-up in the intensive care unit. She is currently resting comfortably in bed. Awake and alert in no acute distress. She is maintaining O2 saturations in the 90s on 2 L/m per nasal cannula. Nasogastric tube remains in place. Speech is evaluating her swallowing abilities. She has 0.9 normal sinus KVO. She is continued on antibiotics in the form of cefepime, daptomycin along with Eraxis. Her dressing was changed by orthopedics today and stated the incision is clean dry well approximated. Just a small amount of serosanguineous drainage was noted. She continues to work with physical therapy. She is now in a room with a Ninfa lift for assistance. Follow-up on wound cultures from 04/14/2022 are pending. Sputum culture from 04/15/2022 revealed no growth. White count 16.8. Hemoglobin 8.5. Platelets 116. Sodium 145. Potassium 3.0. BUN 28. Creatinine 0.82. Glucose 128. She is currently in a -1.3 L balance. Remains on Lasix 40 mg IV every 8 hours. She is continued on Lovenox for DVT prophylaxis. Encouraged regarding the use of the incentive spirometer and cough and deep breathing exercises. Being nourished with vital AF and tolerating tube feedings. The patient is seen today 04/19/2022 in follow-up in the intensive care unit. She remains awake and alert. She is maintaining O2 saturations in the 90s on 2 L/m per nasal cannula. She has normal saline at KVO. She is continued on antibiotics and warm and daptomycin, cefepime and Eraxis. She is maintained on IV diuretics in the form of Lasix 40 mg every 8 hours. Currently in a -885 mL balance. Follow up wound cultures of her back from 04/14/2022 reveal no growth. Sputum culture revealed no growth. White count 17.9. Hemoglobin 8.4. Platelets 123. Sodium 146. Chloride 114. Bicarb 33. BUN 36. Creatinine 0.87. Glucose 129. She has been very slow to progress. This is her 54th day in the hospital. She had been somewhat depressed and stating she wanted to stop all of the treatment. She was seen by psychiatry and placed on Wellbutrin. Her family is encouraging her to continue with treatment. She continues with inadequate swallow function. She is continued being nourished with vital AF via nasogastric tube. She also may require PEG tube placement. She may be a cand idate for select specialty. The patient is seen today 04/20/2022 in follow-up in the intensive care unit. She is currently laying on her right side in bed. Awake and alert. She is maintaining O2 saturations in the 90s on 3 L/m per nasal cannula. 0.9 normal saline at KVO. Staff reports her wound is clean and dry and intact. FMS remains in place. Dressings have been changed per orthopedics. Follow up wound cultures reveal no growth. Urine culture pending. Sputum culture reveals no growth. She remains with a nasogastric tube in place she is receiving Vital AF at 60 ML's per hour which is goal. White count 21.3. Hemoglobin 7.8. Sodium 146. Potassium 2.4. Bicarb 32. BUN 48. Creatinine 0.9. AST 52. ALT 44. She remains on antibiotics in the form of cefepime and daptomycin along with Eraxis. She is continued on Lovenox for DVT prophylaxis. She is on Lasix 80 mg IV every 12 hours per cardiology. Remains in a -885 ML's balance. The patient is seen today 04/21/2022 in follow-up in the intensive care unit. Throughout the night she became more hypoxemic and his requiring 100% nonrebreather. She was more obtunded and less responsive. Follow-up blood cultures are revealing no growth. Urine culture revealed no growth. Sputum culture revealed no growth. Follow-up culture from the wound on her back was positive for Patsy. White count 22.0. Hemoglobin 7.8. Platelets 96,000. Sodium 150. Potassium 3.8. Bicarb 31. BUN 62. Creatinine 1.16. She remains on daptomycin, cefepime and Eraxis. She is on Flagyl as well. Continued on bronchodilators. Remains on IV diuretics. Lovenox for DVT prophylaxis. Objective - Vital Signs Vital signs: Vital Signs Temp 98.4 F 04/20/22 22:00 Pulse 88 04/21/22 06:00 Resp 26 H 04/21/22 06:00 BP 90/39 04/21/22 06:00 Pulse Ox 99 04/21/22 03:16 FiO2 100 04/21/22 00:44 Intake & Output 04/20/22 04/21/22 04/21/22 18:59 06:59 18:59 Intake Total 1020 240 1.003 Output Total 480 1200 Balance 540 -960 1.003 Weight 137 kg Intake: IV 240 240 Cefepime 1 gm In Sodium 50 Chloride 0.9% 50 ml @ 12. 5 mls/hr IVPB Q8HR [facility] Rx #:[id number] Sodium Chloride 0.9% 1, 190 240 000 ml @ 20 mls/hr IV . Q24H [facility] Rx#:[id number] Intake, IV Titration 1.003 Amount Morphine Sulfate (100 mg/ 1.003 2 ml) 100 mg In Sodium Chloride 0.9% 100 ml @ 1 MG/HR 1.02 mls/hr IV . Q24H [facility] Rx#:[id number] Oral 0 Tube Feeding 720 Other 60 Output: Urine 480 400 Stool 800 Other: Voiding Method Indwelling Catheter Indwelling Catheter Indwelling Catheter ABP, PAP, CO, CI - Last Documented Arterial Blood Pressure 222/214 - Exam GENERAL EXAM: Arousable, morbidly obese, 71-year-old female, on 100% nonrebreather, fairly comfortable in no apparent distress. HEAD: Normocephalic. EYES: Normal reaction of pupils, equal size. NOSE: Naso gastric tube in place. Clear with pink turbinates. THROAT: No erythema or exudates. NECK: No masses, no JVD. CHEST: Healing large hematoma and edema of the right breast LUNGS: Equal air entry with crackles in the posterior bases. Diminished right base. CVS: S1 and S2 normal with no audible murmur, irregular rhythm. ABDOMEN: Obese, unable to appreciate organomegaly, normal bowel sounds, no guarding or rigidity. SPINE: Surgical dressing dry and intact. SKIN: Old ecchymosis noted over the right breast and chest area. CENTRAL NERVOUS SYSTEM: No focal deficits, tone is normal in all 4 extremities. EXTREMITIES: There is 1-2+ peripheral edema. No clubbing, no cyanosis. Peripheral pulses are intact. - Labs CBC & Chem 7: 04/21/22 05:52 04/21/22 05:52 Labs: Abnormal Lab Results - Last 24 Hours (Table) 04/20/22 04/20/22 04/21/22 Range/Units 17:46 21:55 01:15 WBC (3.8-10.6) k/uL RBC (3.80-5.40) m/uL Hgb (11.4-16.0) gm/dL Hct (34.0-46.0) % RDW (11.5-15.5) % Plt Count (150-450) k/uL Neutrophils # (Manual) (1.3-7.7) k/uL Myelocytes # (Manual) (0) k/uL Nucleated RBCs (0-0) /100 WBC Macrocytosis Sodium (137-145) mmol/L Chloride (98-107) mmol/L Carbon Dioxide (22-30) mmol/L BUN (7-17) mg/dL Creatinine (0.52-1.04) mg/dL Glucose (74-99) mg/dL POC Glucose (mg/dL) 201 H 165 H 157 H (70-110) mg/dL Calcium (8.4-10.2) mg/dL 04/21/22 04/21/22 04/21/22 Range/Units 05:52 05:52 05:53 WBC 22.0 H (3.8-10.6) k/uL RBC 2.48 L (3.80-5.40) m/uL Hgb 7.8 L (11.4-16.0) gm/dL Hct 24.4 L (34.0-46.0) % RDW 26.5 H (11.5-15.5) % Plt Count 96 L (150-450) k/uL Neutrophils # (Manual) 19.14 H (1.3-7.7) k/uL Myelocytes # (Manual) 0.22 H (0) k/uL Nucleated RBCs 9 H (0-0) /100 WBC Macrocytosis Marked A Sodium 150 H (137-145) mmol/L Chloride 118 H (98-107) mmol/L Carbon Dioxide 31 H (22-30) mmol/L BUN 62 H (7-17) mg/dL Creatinine 1.16 H (0.52-1.04) mg/dL Glucose 107 H (74-99) mg/dL POC Glucose (mg/dL) 125 H (70-110) mg/dL Calcium 7.4 L (8.4-10.2) mg/dL Microbiology - Last 24 Hours (Table) 04/20/22 07:05 Blood Culture - Preliminary Blood No Growth after 24 hours 04/19/22 15:00 Urine Culture - Final Urine,Voided 04/14/22 08:45 Blood Culture - Final Blood No Growth after 144 hours Assessment and Plan Assessment: Acute lumbar wound dehiscence, status post irrigation and excisional debridement of the lumbar spine 30 x 20 x 15 cm with complex wound closure for layered fashion on 04/14/2022, initially on the mechanical ventilator, extubated 04/16/2022 Lumbar decompression/fusion 02/24/2022, developed some foul-smelling serous sanguinous drainage. On 03/09/2022 she did require exploration and washout with dural repairs due to falls. Acute sepsis with hypotension secondary to urinary tract infection with Enterobacter, improved and off norepinephrine. Bacteremia secondary to wound infection positive for pseudomonas aeruginosa, Enterococcus faecalis, Patsy albicans from 03/26/2022. Follow-up cultures from 04/14/2022 reveal no growth. Currently on Eraxis, daptomycin, cefepime, Atrial flutter fibrillation/flutter with a rapid ventricular currently in sinus rhythm Dysphagia with continued inadequate swallow function. NG tube remains in place. Being nourished with vital AF. May require PEG tube placement. Acute renal failure, recovered, current creatinine 1.16 Hypokalemia, current potassium 3.8 Hyponatremia, recovered current sodium 146 Leukocytosis, current white count 22 Acute anemia with a hemoglobin dropped to 5.4. The patient had developed a large right sided chest wall/breast hematoma suspect secondary to fall on 03/06/2022. The patient has now received 13 units of packed red blood cells and her hemoglobin this morning was 7.8. Cardiac arrest, brief pulseless electrical activity encountered in the operating room 02/24/2022 exact etiology is not clear. Acute hypoxic/hypercapnic respiratory failure secondary to cardiac arrest/pulseless electrical activity, patient was extubated Morbid obesity. BMI of 45.6 History of right hemidiaphragm paralysis History of right-sided breast cancer, previous lumpectomy Chronic atrial fibrillation/flutter, anticoagulated with Xarelto currently on hold due to GI bleed, anemia and recurrent surgery Dyslipidemia Benign essential hypertension Acute depression secondary to above, seen by psychiatry, initiated on Wellbutrin Poor overall functional performance based on the above-mentioned multiple comorbidities and may require long-term acute care facility Plan: The patient was seen and evaluated Medications and labs reviewed The patient has had increasing oxygen requirements, decreased alertness Family is at the bedside and they're considering comfort care DO NOT RESUSCITATE/DO NOT INTUBATE CODE STATUS We will await direction from them and follow their wishes I have personally seen and examined the patient, performed the documentation and the assessment and plan as written. Number of minutes spent on the visit: 10.
--- NOTE | 2022-04-21 12:31 | P.PN ---
Subjective Progress Note Date: 04/21/22 Principal diagnosis: GI bleeding Patient decompensated overnight with increased confusion, increased lethargy, and more shortness of breath. Family was brought in earlier this morning and decision was made to change to comfort care measures at this time. Today's PEG tube placement canceled for that reason. Objective - Vital Signs Vital signs: Vital Signs Temp 98.4 F 04/20/22 22:00 Pulse 88 04/21/22 06:00 Resp 26 H 04/21/22 06:00 BP 90/39 04/21/22 06:00 Pulse Ox 99 04/21/22 03:16 FiO2 100 04/21/22 00:44 Intake & Output 04/20/22 04/21/22 04/21/22 18:59 06:59 18:59 Intake Total 1020 240 1.003 Output Total 480 1200 Balance 540 -960 1.003 Weight 137 kg Intake: IV 240 240 Cefepime 1 gm In Sodium 50 Chloride 0.9% 50 ml @ 12. 5 mls/hr IVPB Q8HR [facility] Rx #:[id number] Sodium Chloride 0.9% 1, 190 240 000 ml @ 20 mls/hr IV . Q24H [facility] Rx#:[id number] Intake, IV Titration 1.003 Amount Morphine Sulfate (100 mg/ 1.003 2 ml) 100 mg In Sodium Chloride 0.9% 100 ml @ 1 MG/HR 1.02 mls/hr IV . Q24H [facility] Rx#:[id number] Oral 0 Tube Feeding 720 Other 60 Output: Urine 480 400 Stool 800 Other: Voiding Method Indwelling Catheter Indwelling Catheter Indwelling Catheter ABP, PAP, CO, CI - Last Documented Arterial Blood Pressure 222/214 - Exam Abdomen: Soft, nontender, nondistended - Labs CBC & Chem 7: 04/21/22 05:52 04/21/22 05:52 Labs: Abnormal Lab Results - Last 24 Hours (Table) 04/20/22 04/20/22 04/21/22 Range/Units 17:46 21:55 01:15 WBC (3.8-10.6) k/uL RBC (3.80-5.40) m/uL Hgb (11.4-16.0) gm/dL Hct (34.0-46.0) % RDW (11.5-15.5) % Plt Count (150-450) k/uL Neutrophils # (Manual) (1.3-7.7) k/uL Myelocytes # (Manual) (0) k/uL Nucleated RBCs (0-0) /100 WBC Macrocytosis Sodium (137-145) mmol/L Chloride (98-107) mmol/L Carbon Dioxide (22-30) mmol/L BUN (7-17) mg/dL Creatinine (0.52-1.04) mg/dL Glucose (74-99) mg/dL POC Glucose (mg/dL) 201 H 165 H 157 H (70-110) mg/dL Calcium (8.4-10.2) mg/dL 04/21/22 04/21/22 04/21/22 Range/Units 05:52 05:52 05:53 WBC 22.0 H (3.8-10.6) k/uL RBC 2.48 L (3.80-5.40) m/uL Hgb 7.8 L (11.4-16.0) gm/dL Hct 24.4 L (34.0-46.0) % RDW 26.5 H (11.5-15.5) % Plt Count 96 L (150-450) k/uL Neutrophils # (Manual) 19.14 H (1.3-7.7) k/uL Myelocytes # (Manual) 0.22 H (0) k/uL Nucleated RBCs 9 H (0-0) /100 WBC Macrocytosis Marked A Sodium 150 H (137-145) mmol/L Chloride 118 H (98-107) mmol/L Carbon Dioxide 31 H (22-30) mmol/L BUN 62 H (7-17) mg/dL Creatinine 1.16 H (0.52-1.04) mg/dL Glucose 107 H (74-99) mg/dL POC Glucose (mg/dL) 125 H (70-110) mg/dL Calcium 7.4 L (8.4-10.2) mg/dL Microbiology - Last 24 Hours (Table) 04/20/22 07:05 Blood Culture - Preliminary Blood No Growth after 24 hours 04/19/22 15:00 Urine Culture - Final Urine,Voided 04/14/22 08:45 Blood Culture - Final Blood No Growth after 144 hours Assessment and Plan (1) GI bleed Narrative/Plan: 71-year-old female with deterioration in her overall condition. Family have decided to switch to comfort measures which is certainly reasonable. We'll sign off. Please call if needed. Current Visit: Yes Status: Acute Priority: High Code(s): K92.2 - GASTROINTESTINAL HEMORRHAGE, UNSPECIFIED SNOMED Code(s): 85613152
[2022-04-21 14:03] VITALS: BMI 47.2
--- NOTE | 2022-04-21 14:04 | P.PN ---
Progress Note - Text Progress Note Date: 04/21/22 Interval History: Patient was seen today for psychiatric follow-up regarding patient's depression. patients nurse claims that patient apparently took a turn for the worst last night and had labored breathing, the family decided early this morning to turn patient comfort care. Patient was laying in bed today, most medications have been stopped. several family members were in the room visiting. global technical writer attempted to speak to patient however she was mainly non responsive however was able to follow some commands from global technical writer including squeezing hand. non verbal today Mental Status Exam: General Appearance: Patient appears to be obese, stated age is lethargic, non verbal, follows some commands. Patient appears to have fair hygiene and grooming wearing hospital gown Behavior: Patient is calmly lying in bed without any agitated behavior. Speech: Patient's speech is non verbal today. Mood/Affect: unable to assess Suicidality/Homicidality: unable to assess Perceptions: unable to assess Though content/process: unable to assess Memory and concentration: unable to assess Judgment and insight: unable to assess IMPRESSIONS: Delirium likely from multiple etiologies Major depressive disorder, without psychotic features PLAN: -At this time patient DOES NOT meet criteria for inpatient psychiatric admission. she was recently placed on comfort care by family and primary team due to declining condition. continue with hospice/comfort care recommendations. -Would recommend the following medication changes/additions: no changes as she is on comfort care -at this time psychiatry will sign off. -Please contact with any questions.
--- NOTE | 2022-04-22 08:25 | P.DS ---
Providers Date of admission: 02/24/22 05:34 Expected date of discharge: 04/22/22 Attending physician: Joaquin Peña MD Consults: 02/24/22 17:33 Consult Physician Routine Consulting Provider: Sidra Campa Consult Reason/Comments: Medical mgt Do you want consulting provider notified?: Already Contacted 02/24/22 17:39 Consult Physician Urgent Consulting Provider: Shona Pulliam Consult Reason/Comments: ICU mgt Do you want consulting provider notified?: Already Contacted 02/24/22 17:40 Consult Physician Urgent Consulting Provider: Michael Gamez Consult Reason/Comments: Afib RVR, Code Do you want consulting provider notified?: Yes 03/01/22 13:30 Consult Physician Routine Consulting Provider: Librado Proctor Consult Reason/Comments: Rehab Do you want consulting provider notified?: Yes 03/07/22 13:53 Consult Physician Routine Consulting Provider: Reynaldo Joseph Consult Reason/Comments: hyponatremia, Do you want consulting provider notified?: Yes 03/08/22 05:15 Consult Physician Stat Consulting Provider: Jamia Coulter Consult Reason/Comments: Hematoma Do you want consulting provider notified?: Already Contacted 03/08/22 07:03 Consult Physician Stat Consulting Provider: Codey Schneider Consult Reason/Comments: Sepsis Do you want consulting provider notified?: Yes 03/08/22 08:14 Consult Physician Stat Consulting Provider: Codey Schneider Consult Reason/Comments: sepsis Do you want consulting provider notified?: Yes 03/29/22 15:03 Consult Physician Urgent Consulting Provider: Yonatan Guerra Consult Reason/Comments: bilateral hydronephrosis Do you want consulting provider notified?: Yes 03/29/22 15:44 Consult Physician Stat Consulting Provider: Yonatan Guerra Consult Reason/Comments: bilat hydronephorsis Do you want consulting provider notified?: Yes 04/04/22 01:46 Consult Physician Stat Consulting Provider: Artur Ren Consult Reason/Comments: Widened QRS, elevated troponin Do you want consulting provider notified?: Yes, Notify in am 04/07/22 23:08 Consult Physician Routine Consulting Provider: Shona Pulliam Consult Reason/Comments: change in condition Do you want consulting provider notified?: Already Contacted Placement Type Exists?: Yes 04/07/22 23:17 Consult Physician Stat Consulting Provider: Shona Pulliam Consult Reason/Comments: change in condition Do you want consulting provider notified?: Already Contacted 04/09/22 13:58 Consult Physician Routine Consulting Provider: Mannie Garcia Consult Reason/Comments: low hemoglobin Do you want consulting provider notified?: Yes 04/18/22 08:48 Consult to Palliative Care Routine Consulting Provider: Belia Scott Consult Reason/Comments: end of life care per patient request Do you want consulting provider notified?: Yes 04/18/22 09:42 Consult Physician Routine Consulting Provider: Casey Mccormick Consult Reason/Comments: Depression, motivational counseling Do you want consulting provider notified?: Yes Primary care physician: Curtis Angel Hospital Course: Discharge Diagnosis: Acute on chronic hypoxic respiratory failure Septic shock Persistent leukocytosis Dysphagia Severe protein calorie malnutrition Poor nutritional intake Anasarca T10 to pelvis decompression with fusion Patsy UTI Major depressive disorder GI bleeding Atrial tachycardia/fibrillation Acute on chronic systolic heart failure s/p Cardiac arrest Acute blood loss anemia Right breast hematoma History of right Diaphragmatic paralysis Enterobacter UTI with bacteremia Bilateral hydronephrosis Urinary retention Prerenal azotemia Hyponatremia Hypokalemia Metabolic acidosis Ischemic hepatitis Fecal impaction Hospital Course: Patient is a 71 yo CF with a hx of A fib s/p ablation, GERD, hypertension, dyslipidemia, and right diaphragmatic paralysis who presented for T10 to Pelvis decompression and fusion with revision. Course complicated by significant blood loss and cardiac arrest. During the case she developed A. fib with RVR and then quickly transitioned into bradycardia with a low end-tidal CO2. Total down time was less than 5 minutes. Patient subsequently admitted to the ICU. She was extubated on 02/25. She continued to do well but struggled with pain. She was downgraded from ICU on 03/03. On 03/06/22 patient was noted to have a significant drop in hemoglobin from 10.0 down to 7.5 and upon reevaluation on 03/07 was found to have hemoglobin of 5.4, patient required multiple transfusions. She underwent a CT abdomen and pelvis and was found to have a large right chest hematoma dilated small bowel concerning for ileus. Patient was evaluated by cardiothoracic surgery and they recommended conservative management. On 03/07, patient was noted to be hypotensive with elevated WBC count of 42.3, with worsening renal function and hyperkalamia. She was transferred back to the ICU for septic shock. Blood and urine cultures were obtained and positive for Enterobacter. Infectious disease was consulted. Patient remained on IV antibiotics. Patient was later weaned off of vasopressors and again transferred out of the ICU. Patient was started on Lasix for treatment of acute on chronic systolic heart failure with EF of 35-40%. Amiodarone and metoprolol for atrial fibrillation with RVR sodium bicarb for treatment of metabolic acidosis. Pt's Xarelto remain on hold at that time. Patient was evaluated by PMR and was not a candidate for inpatient rehab. She has been cleared by orthopedic surgery to start working with physical therapy. On 03/26/22 patient was again found to have elevating leukocytosis and repeat Wound cultures were obtained. Wound cultures were positive for pseudomonas aeruginosa, enterococcus fasciculus, and Patsy albicans. Patient was continued on IV antibiotics. Overnight on 03/28/22 patient again developed episodes of melena and at that time Dr. Arce, general surgeon was re-consulted. CT abdomen and pelvis revealing bilateral hydronephrosis unable to rule out obstructive etiology, concerns for fecal impaction, and persistent previously known right anterior chest wall hematoma. General surgery following and reevaluated patient secondary to concerns of fecal impaction and started patient on bowel regimen. Warren catheter was inserted secondary to bilateral hydronephrosis and patient was evaluated by urologist recommending continuation of Warren catheter as bilateral hydronephrosis is believed to be resulting secondary to urinary retention. Patient had episodes of hematochezia along with large blood clot and was transferred back to the ICU. Had bedside manual disimpaction with general surgery. Also has a posterior anal fissure could likely cause of current bleeding. Hemoglobin continued to down trend. Requiring further blood transfusions. Plan was to transfer the patient to an outside facility for GI services. However, patient remained hemodynamically stable, transfer was canceled. Patient returned to the OR on 04/14 for revision and washout, slight was dehisced but did not appear to be infected. OR cultures still pending. Due to prolonged hospitalization, patient has become extremely depressed and considering hospice care. Patient had been clinically improving since most recent surgery. However, patient had a setback with likely aspiration pneumonia, acute on chronic hypoxic respiratory failure on 04/21/22. Family decided to have comfort care measures only for the patient. Patient at 18:40 on 04/21/22. Patient Condition at Discharge: Undetermined Plan - Discharge Summary Discharge Rx Participant: Yes New Discharge Prescriptions: No Action Levothyroxine Sodium [Synthroid] 88 mcg PO QAM HYDROcodone/APAP 10-325MG [Runnells 10-325] 1 tab PO Q4H PRN PRN Reason: Pain Atorvastatin [Lipitor] 10 mg PO DAILY #30 tab atenoloL [Tenormin] 100 mg PO QAM Amlodipine Besylate/Valsartan [Exforge 5-320 mg Tablet] 1 each PO QAM DULoxetine HCL [Cymbalta] 60 mg PO DAILY Rosuvastatin Calcium 10 mg PO QAM Rivaroxaban [Xarelto] 20 mg PO HS Discharge Medication List Levothyroxine Sodium [Synthroid] 88 mcg PO QAM 02/19/14 [History] HYDROcodone/APAP 10-325MG [Runnells 10-325] 1 tab PO Q4H PRN 12/23/18 [History] Atorvastatin [Lipitor] 10 mg PO DAILY #30 tab 04/10/19 [Rx] atenoloL [Tenormin] 100 mg PO QAM 05/10/20 [History] Amlodipine Besylate/Valsartan [Exforge 5-320 mg Tablet] 1 each PO QAM 02/02/22 [History] DULoxetine HCL [Cymbalta] 60 mg PO DAILY 02/02/22 [History] Rivaroxaban [Xarelto] 20 mg PO HS 02/02/22 [History] Rosuvastatin Calcium 10 mg PO QAM 02/02/22 [History] Follow up Appointment(s)/Referral(s): Curtis Angel MD [Primary Care Provider] - 1 Week Thom Alexander DO [Doctor of Osteopathic Medicine] - 1 Week Activity/Diet/Wound Care/Special Instructions: Spine Discharge and Recovery Instructions Date of Surgery: 04/14/22, 03/23, 02/24/22 Diagnosis: 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 Please discuss prescription refills at your follow up appointment. Do not call the hospital for medication refills. Activity: [Encourage ambulation with assist of walker] [OOB 6-8x daily] [PT/OT daily work on balance, strength and mobility] [Up in chair with all meals, OOB all meals] [Shower daily] Brace: Wear TLSO brace when up and about at all times. Do not wear while sleeping or showering. May take breaks from brace while sitting or laying and resting. Dressing: Leave your dressing in place for a total of 3 days post operatively. Then you may remove your dressing and leave open to air. Keep the area clean and if not able to keep area clean, then cover with sterile gauze and tape. Showering: You may shower 3 days after your procedure allowing soap and water to run over incision. Do not scrub. Do not soak. Blot dry. Follow up: Please confirm a follow up appointment with your surgeon 2 weeks post operativel y. Please make an appointment to follow up with your PCP in 1-2 weeks after surgery for evaluation 3 phase, 3-week plan POST OP WEEKS 1-3 1. Lifting/carrying/pushing/pulling limited to less than 5 pounds. 2. Do not sit for longer than 15 minutes at one time. Get up and walk around. Prolonged sitting is NOT advised. If you lay down, see if you can tolerate laying down on you front (belly side) 3. Walk for periods of 15 minutes = 1 mile but no longer; do it multiple times times each day. 4.Ice your low back after activity. POST OP WEEKS 3-6 1. Lifting limited to less than 20 pounds. 2. Do not sit for longer than 30 minutes at a time. Frequently change positions. Use a sit-to stand workstation or take frequent breaks from sitting if you have returned to work. 3. Walk for 30 minutes each day. If possible, do these three or more times a day POST OP WEEKS 6+ At your 6-week appointment we will give you a physical therapy referral to focus on a core stabilization and strengthening program. You should also work on leg & buttock strengthening, hamstring & quadriceps stretching, and continue a low impact aerobic activity program such as swimming, walking, or riding a stationary bicycle. During the initial 6 weeks after your surgery, you are at the highest risk of re-injuring your spine. You should generally avoid BLTs (bending, lifting and twisting combination motions) and follow the above guidelines to reduce the chance of reinjury. You can anticipate post op appointments in our office at approximately 3 weeks and 6 weeks after your surgery. INCISION CARE: If your incision is not draining you do NOT need to cover it with a dressing. Keep your incision clean, dry and intact. In most cases, we apply skin glue, rito or sutures to the incision at the time of surgery. This will be like a crust or have the appearance of a scab and will fall off in time on its own. The stitches or rito need to be removed at 3 weeks post op appointment. You may begin to shower 3 days after surgery (this allows the glue to nguyễn well). However, please avoid scrubbing the incision site or peeling off any of the skin glue. This will ensure optimal healing of your incision. Also, during this time avoid soaking the incision area in water - this includes swimming pools, hot tubs or baths. No ointments, lotions or oils on the incision until your surgeon allows. Leave rito, sutures or glue in place. Neurological dysfunction that comes on suddenly can also be a sign of a stroke. Below some common symptoms of a stroke are listed: B - balance difficulty such as sudden onset walking or leaning to one side - NEW E - eye problem such as sudden double vision or trouble seeing on one side - NEW F - Facial weakness or numbness on one side - NEW A - Arm or leg weakness or numbness on one side - NEW S - Slurred speech or difficulty with word finding - NEW T - Time is BRAIN! Call 911 as soon as you recognize these symptoms Diet: Consume a regular diet rich in vegetables and lean protein such as chicken or fish. You should consume in a ratio of approximately 20% fats|40% carbohydrates|40%protein. Vegetables, sweet potatoes, brown rice or quinoa are examples of good carbohydrates. Chips, white bread, cookies and sweets/sugar are examples of bad carbohydrates. Limit your bad carbs, go wild with good carbs. "Life's Simple 7" Guidelines as per [place] [employer] These will help you reclaim your life after surgery and fence installer helper in your recovery, keeping in mind your restrictions. (1) Get Active. Physical activity can help people lose weight, control high blood pressure and cholesterol, feel emotionally better, and sleep better. (2) Control Cholesterol. Avoid a diet high in saturated fat, trans fat, & cholesterol. Limit whole milk & cream, ice cream, butter, egg yolks, processed meats (like sausage and hot dogs), and fatty meats. Choose healthy foods that are low in saturated fat, trans fat and cholesterol which include: Fruits and vegetables, fiber rich grain products (like whole grain pasta and brown rice), lean meat such as chicken, fish, nuts, seeds, and legumes. (3) Eat Better. Eat small portions. Shop at the grocery with a list and do not stray from it. Tips for a healthy diet include: Limit sodium intake to less than 1500mg daily, avoid prepackaged, processed, and fast foods, choose a diet rich in fruits, vegetables, and whole grain, high fiber foods, and limit saturated & cholesterol in your diet. (4) Manage Blood Pressure. If you have high blood pressure, you should have a cuff at home so that you can check your blood pressure regularly. Be sure you have a good cuff. An arm one is generally better than a wrist one. Bring the cuff to a doctor's appointment to validate that the measurements that your cuff are taking are accurate. Take your blood pressure twice daily when you are sitting down and relaxing. Record the numbers in a log and bring this log with you to your doctors' appointments. (5) Lose Weight if your BMI is above 25. A healthy BMI is between 19-25. To calculate Your BMI, you may use a Standard BMI Calculator on the NIH BMI website: <www.nhlbi.nih.gov/guidelines/obesity/BMI/bmicalc.htm>. Weigh oneself daily. If you are overweight, set a goal to lose weight. A pound a week loss if needed is a good target. (6) Reduce Blood Sugar. Limit foods and liquids with "added sugars." (Added s ugars include sucrose, fructose, glucose, maltose, dextrose, high fructose corn syrup, corn syrup, concentrated fruit juice and honey). (7) Stop Smoking. If you smoke, quitting smoking is one of the best things that you can do for your health. Smoking increases your risk of heart attack, stroke, and peripheral vascular disease, which is a build-up of plaque in your arteries. Please discard all the cigarettes and lighters in your house. Have a plan for what you will do when you have the urge to smoke. Direct and second- hand smoke shortens your life as well as the lives of your family, friends and others around you. For your health and the health of those around you, please consider quitting! Proper Bending Body Mechanics: Maintain a wide stance with one foot slightly in front of the other. Keep your back straight. Bend utilizing the strength in your hips and knees. Do not bend at the waist. Maintain the lifted object at your waist-level close to your body. Avoid lifting weight that causes immediately pain or pain anywhere in the body afterwards. Smoking/Nicotine If there was ever one thing that you could do to increase your overall health, decrease your risk of cardiovascular problems by about 39% the second you make the choice, it is to STOP SMOKING. Your body's most instant gratification is the second you stop smoking. We have all heard the studies, read the articles but it is true, smoking is extremely bad for your overall health, and moreover it is detrimental to your bone health. Nicotine, IN ANY FORM, kills bone cells, prevents your body from healing fractures, and significantly prolongs healing after surgery. In spine surgery specifically, it increases your risk of not healing your bones to create a fusion and increases your risk of having a revision surgery due to this up to 60%. I know it is hard. I know it feels impossible. But there are ways. Take control of your life. We are here to help you through it. And when you are ready, ask us and we can direct you to help if you desire. Use the START Plan to Quit Smoking (please visit the Helpguide.org website listed below for more information): S = Set a quit date. Choose a date within the next 2 weeks, so you have enough time to prepare without losing your motivation to quit. If you mainly smoke at work, quit on the weekend, so you have a few days to adjust to the change. T = Tell family, friends, and co-workers that you plan to quit. Let your friends and family in on your plan to quit smoking and tell them you need their support and encouragement to stop. Look for a quit courtney who wants to stop smoking as well. You can help each other get through the rough times. A = Anticipate and plan for the challenges you'll face while quitting. Most people who begin smoking again do so within the first 3 months. You can help yourself make it through by preparing ahead for common challenges, such as nicotine withdrawal and cigarette cravings. R = Remove cigarettes and other tobacco products from your home, car, and work. Throw away all your cigarettes (no emergency pack!), lighters, ashtrays, and matches. Wash your clothes and freshen up anything that smells like smoke. Shampoo your car, clean your drapes and carpet, and steam your furniture. T = Talk to your doctor about getting help to quit. Your doctor can prescribe medication to help with withdrawal and suggest other alternatives. If you can't see a doctor, you can get many products over the counter at your local pharmacy or grocery store, including the nicotine patch, nicotine lozenges, and nicotine gum. Resources for Quitting Smoking: <https://www.[place].gov/documents/[facility] /Quit_Tobacco_Resources_for_patients_313480_7.pdf> Supplementation: Take recommended dosages of Vitamin D and Calcium to help fortify your bones and help them to heal. See your health maintenance packet for dosages and recommended levels. DVT/VTE prophylaxis: You will be given compression stockings from the hospital. Wear these daily for the first two weeks after surgery. You may take them off at night. You may be prescribed a medication to help thin your blood. Take this as directed. If you are not prescribed this medication, early and frequent ambulation has been shown to be the best prophylaxis to deep vein thrombosis and sequelae related to this event. Discharge Disposition: - Preliminary Cause of Preliminary Cause of : pneumonia
== END 2022-04-21 20:28 | disposition expired | DRG 453 ==
LOC: 2ORMAIN 05:34 → 2SICU 17:22 → 3SCARD 03-03 23:35 → 2SICU 03-07 14:56 → 3SCARD 03-20 17:05 → 5NMEDONC 03-30 19:58 → 2SICU 04-04 05:20 → 4SSUR 04-13 15:24 → 2SICU 04-14 16:23
PROVIDERS: ADMIT Internal Medicine; ATTEND Internal Medicine
PROC: 0SG1071 Fusion of 2 or more Lumbar Vertebral Joints with Autologous Tissue Substitute, Posterior Approach, Posterior Column, Open Approach (ICD-10-PCS; 2022-02-24)
PROC: 0SP00JZ Removal of Synthetic Substitute from Lumbar Vertebral Joint, Open Approach (ICD-10-PCS; 2022-02-24)
PROC: 0QS004Z Reposition Lumbar Vertebra with Internal Fixation Device, Open Approach (ICD-10-PCS; 2022-02-24)
PROC: 0SG30AJ Fusion of Lumbosacral Joint with Interbody Fusion Device, Posterior Approach, Anterior Column, Open Approach (ICD-10-PCS; 2022-02-24)
PROC: 00UT0JZ Supplement Spinal Meninges with Synthetic Substitute, Open Approach (ICD-10-PCS; 2022-02-24)
PROC: 01NB0ZZ Release Lumbar Nerve, Open Approach (ICD-10-PCS; 2022-02-24)
PROC: 01NR0ZZ Release Sacral Nerve, Open Approach (ICD-10-PCS; 2022-02-24)
PROC: 00NY0ZZ Release Lumbar Spinal Cord, Open Approach (ICD-10-PCS; 2022-02-24)
PROC: 0SB20ZZ Excision of Lumbar Vertebral Disc, Open Approach (ICD-10-PCS; 2022-02-24)
PROC: 0SB40ZZ Excision of Lumbosacral Disc, Open Approach (ICD-10-PCS; 2022-02-24)
PROC: 3E033XZ Introduction of Vasopressor into Peripheral Vein, Percutaneous Approach (ICD-10-PCS; 2022-02-24)
PROC: 0QB00ZZ Excision of Lumbar Vertebra, Open Approach (ICD-10-PCS; 2022-02-24)
PROC: 0QU00KZ Supplement Lumbar Vertebra with Nonautologous Tissue Substitute, Open Approach (ICD-10-PCS; 2022-02-24)
PROC: 5A12012 Performance of Cardiac Output, Single, Manual (ICD-10-PCS; 2022-02-24)
PROC: 0SG10AJ Fusion of 2 or more Lumbar Vertebral Joints with Interbody Fusion Device, Posterior Approach, Anterior Column, Open Approach (ICD-10-PCS; principal; 2022-02-24 07:30)
PROC: 03HY32Z Insertion of Monitoring Device into Upper Artery, Percutaneous Approach (ICD-10-PCS; 2022-03-07)
PROC: 4A133B1 Monitoring of Arterial Pressure, Peripheral, Percutaneous Approach (ICD-10-PCS; 2022-03-07)
PROC: 4A133J1 Monitoring of Arterial Pulse, Peripheral, Percutaneous Approach (ICD-10-PCS; 2022-03-07)
PROC: 02HV33Z Insertion of Infusion Device into Superior Vena Cava, Percutaneous Approach (ICD-10-PCS; 2022-03-07)
PROC: 30233N1 Transfusion of Nonautologous Red Blood Cells into Peripheral Vein, Percutaneous Approach (ICD-10-PCS; 2022-03-07)
PROC: 6A551Z2 Pheresis of Platelets, Multiple (ICD-10-PCS; 2022-03-08)
PROC: 0D9670Z Drainage of Stomach with Drainage Device, Via Natural or Artificial Opening (ICD-10-PCS; 2022-03-08)
PROC: 0QB00ZZ Excision of Lumbar Vertebra, Open Approach (ICD-10-PCS; 2022-03-09)
PROC: 00UT0KZ Supplement Spinal Meninges with Nonautologous Tissue Substitute, Open Approach (ICD-10-PCS; 2022-03-09)
PROC: 00UT0JZ Supplement Spinal Meninges with Synthetic Substitute, Open Approach (ICD-10-PCS; 2022-03-09)
PROC: 0DJ08ZZ Inspection of Upper Intestinal Tract, Via Natural or Artificial Opening Endoscopic (ICD-10-PCS; 2022-03-09)
PROC: 30233R1 Transfusion of Nonautologous Platelets into Peripheral Vein, Percutaneous Approach (ICD-10-PCS; 2022-03-09)
PROC: 30233J1 Transfusion of Nonautologous Serum Albumin into Peripheral Vein, Percutaneous Approach (ICD-10-PCS; 2022-03-09)
PROC: 02HV33Z Insertion of Infusion Device into Superior Vena Cava, Percutaneous Approach (ICD-10-PCS; 2022-03-15)
PROC: 0DCP7ZZ Extirpation of Matter from Rectum, Via Natural or Artificial Opening (ICD-10-PCS; 2022-04-04)
PROC: 3E0G76Z Introduction of Nutritional Substance into Upper GI, Via Natural or Artificial Opening (ICD-10-PCS; 2022-04-09)
PROC: 0QB00ZZ Excision of Lumbar Vertebra, Open Approach (ICD-10-PCS; 2022-04-14)
PROC: 0BH18EZ Insertion of Endotracheal Airway into Trachea, Via Natural or Artificial Opening Endoscopic (ICD-10-PCS; 2022-04-14)
PROC: 5A1945Z Respiratory Ventilation, 24-96 Consecutive Hours (ICD-10-PCS; 2022-04-14)
DX: T84.226A Displacement of internal fixation device of vertebrae, initial encounter (principal); A41.81 Sepsis due to Enterococcus; T81.41XA Infection following a procedure, superficial incisional surgical site, initial encounter; K72.00 Acute and subacute hepatic failure without coma; N17.0 Acute kidney failure with tubular necrosis; J96.21 Acute and chronic respiratory failure with hypoxia; R65.21 Severe sepsis with septic shock; J69.0 Pneumonitis due to inhalation of food and vomit; I50.23 Acute on chronic systolic (congestive) heart failure; E43 Unspecified severe protein-calorie malnutrition; T81.31XA Disruption of external operation (surgical) wound, not elsewhere classified, initial encounter; T83.510A Infection and inflammatory reaction due to cystostomy catheter, initial encounter; K55.9 Vascular disorder of intestine, unspecified; E22.2 Syndrome of inappropriate secretion of antidiuretic hormone; E87.20 Acidosis, unspecified; I96 Gangrene, not elsewhere classified; E87.4 Mixed disorder of acid-base balance; R45.851 Suicidal ideations; D62 Acute posthemorrhagic anemia; I48.4 Atypical atrial flutter; I47.1 Supraventricular tachycardia; M51.06 Intervertebral disc disorders with myelopathy, lumbar region; F32.2 Major depressive disorder, single episode, severe without psychotic features; Z51.5 Encounter for palliative care; Z66 Do not resuscitate; G96.11 Dural tear; N13.6 Pyonephrosis; M47.16 Other spondylosis with myelopathy, lumbar region; G96.00 Cerebrospinal fluid leak, unspecified; K56.7 Ileus, unspecified; M96.0 Pseudarthrosis after fusion or arthrodesis; B37.49 Other urogenital candidiasis; J98.11 Atelectasis; I48.21 Permanent atrial fibrillation; Z68.42 Body mass index [BMI] 45.0-49.9, adult; Z16.39 Resistance to other specified antimicrobial drug; K92.1 Melena; I97.711 Intraoperative cardiac arrest during other surgery; I27.20 Pulmonary hypertension, unspecified; L89.152 Pressure ulcer of sacral region, stage 2; D69.6 Thrombocytopenia, unspecified; J98.6 Disorders of diaphragm; F44.4 Conversion disorder with motor symptom or deficit; E16.0 Drug-induced hypoglycemia without coma; I11.0 Hypertensive heart disease with heart failure; R54 Age-related physical debility; E66.01 Morbid (severe) obesity due to excess calories; I08.3 Combined rheumatic disorders of mitral, aortic and tricuspid valves; E89.0 Postprocedural hypothyroidism; M48.062 Spinal stenosis, lumbar region with neurogenic claudication; Y79.1 Therapeutic (nonsurgical) and rehabilitative orthopedic devices associated with adverse incidents; K21.00 Gastro-esophageal reflux disease with esophagitis, without bleeding; K29.70 Gastritis, unspecified, without bleeding; G89.29 Other chronic pain; B95.2 Enterococcus as the cause of diseases classified elsewhere; Y73.1 Therapeutic (nonsurgical) and rehabilitative gastroenterology and urology devices associated with adverse incidents; G47.9 Sleep disorder, unspecified; M51.16 Intervertebral disc disorders with radiculopathy, lumbar region; M51.17 Intervertebral disc disorders with radiculopathy, lumbosacral region; M48.07 Spinal stenosis, lumbosacral region; N64.89 Other specified disorders of breast; K64.9 Unspecified hemorrhoids; N28.1 Cyst of kidney, acquired; T38.0X5A Adverse effect of glucocorticoids and synthetic analogues, initial encounter; R73.03 Prediabetes; R73.9 Hyperglycemia, unspecified; G89.18 Other acute postprocedural pain; E87.5 Hyperkalemia; E78.5 Hyperlipidemia, unspecified; Z96.651 Presence of right artificial knee joint; E83.42 Hypomagnesemia; M19.90 Unspecified osteoarthritis, unspecified site; K44.9 Diaphragmatic hernia without obstruction or gangrene; R26.9 Unspecified abnormalities of gait and mobility; K56.41 Fecal impaction; S20.211A Contusion of right front wall of thorax, initial encounter; F41.9 Anxiety disorder, unspecified; N94.89 Other specified conditions associated with female genital organs and menstrual cycle; W18.30XA Fall on same level, unspecified, initial encounter; Y92.230 Patient room in hospital as the place of occurrence of the external cause; R29.6 Repeated falls; R32 Unspecified urinary incontinence; M85.80 Other specified disorders of bone density and structure, unspecified site; B96.5 Pseudomonas (aeruginosa) (mallei) (pseudomallei) as the cause of diseases classified elsewhere; K60.2 Anal fissure, unspecified; R47.02 Dysphasia; E87.6 Hypokalemia; Z53.29 Procedure and treatment not carried out because of patient's decision for other reasons; R13.10 Dysphagia, unspecified; E86.1 Hypovolemia; I25.5 Ischemic cardiomyopathy; E86.9 Volume depletion, unspecified; Z85.3 Personal history of malignant neoplasm of breast; Z79.899 Other long term (current) drug therapy; Z79.890 Hormone replacement therapy; Z79.01 Long term (current) use of anticoagulants; Z88.8 Allergy status to other drugs, medicaments and biological substances; Z91.041 Radiographic dye allergy status; Z88.2 Allergy status to sulfonamides; Z91.048 Other nonmedicinal substance allergy status; Z98.1 Arthrodesis status; Z74.01 Bed confinement status; Z91.51 Personal history of suicidal behavior; Z63.4 Disappearance and death of family member
CPT/HCPCS: 36410; 36430; 36573; 36600; 43235; 70450; 70553; 71045; 71275; 72100; 72128; 72131; 74018; 74021; 74176; 76770; 76937; 80048; 80053; 80162; 80202; 81001; 82040; 82330; 82533; 82550; 82728; 82805; 83036; 83540; 83550; 83605; 83615; 83735; 83930; 83935; 84100; 84132; 84145; 84300; 84443; 84478; 84484; 85025; 85027; 85384; 85610; 85652; 85730; 86140; 86850; 86900; 86901; 86920; 87040; 87070; 87075; 87077; 87086; 87186; 87205; 87324; 87635; 93005; 93306; 93970; 94002; 94003; 94640; 94660; 94760